=== PATIENT | male | born 1950 | race Caucasian/White ===

== ENCOUNTER 2019-05-07 07:40 | Outpatient (RCR) | payer MEDICARE, SELFPAY ==
[2019-02-12 14:19] LABS: INR 3.5; Prothrombin Time 36.1 Seconds (9.64-11.0)
[2019-03-05 07:48] LABS: INR 1.8; Prothrombin Time 18.7 Seconds (9.64-11.0)
[2019-05-07 08:07] LABS: INR 3.1; Prothrombin Time 30.8 Seconds (9.64-11.0)
== END 2019-05-13 23:59 | disposition home or self-care (01) ==
LOC: CHSLAB 07:40
PROVIDERS: PCP Internal Medicine; Visit Provider Internal Medicine Cardiovascular Disease
DX: I48.91 Unspecified atrial fibrillation (principal)
CPT/HCPCS: 36415; 85610

== ENCOUNTER 2019-05-23 08:17 | Outpatient (RCR) | payer MEDICARE, SELFPAY ==
[2019-05-14 10:32] LABS: INR 3.5; Prothrombin Time 34.3 Seconds (9.64-11.0)
[2019-05-23 08:40] LABS: INR 1.5; Prothrombin Time 15.6 Seconds (9.64-11.0)
== END 2019-08-12 23:59 | disposition home or self-care (01) ==
LOC: CHSLAB 08:17
PROVIDERS: PCP Internal Medicine; Visit Provider Internal Medicine Cardiovascular Disease
DX: I48.91 Unspecified atrial fibrillation (principal)
CPT/HCPCS: 36415; 85610

== ENCOUNTER 2019-05-30 08:00 | Outpatient (CLI) | payer MEDICARE, SELFPAY ==
[2019-05-30 08:11] LABS: Basophils Absolute Auto 0.05 K/mm3 (0.00-0.10); Basophils Percent Auto 0.6 % (0.0-1.0); Eosinophils Percent Auto 1.2 % (1.0-6.0); Hematocrit 41.2 % (37.0-46.0); Hemoglobin 11.8 g/dL (12.4-15.3); Immature Granulocyte Absolute 0.04 K/mm3 (0.00-0.00); Immature Granulocyte Percent A 0.5 % (0.0-0.0); Lymphocytes Absolute Auto 1.95 K/mm3 (1.10-4.50); Lymphocytes Percent Auto 23.4 % (18.0-42.0); Mean Corpuscular HGB Conc 28.6 g/dL (32.0-36.0); Mean Corpuscular Hemoglobin 20.1 pg (27.0-31.0); Mean Corpuscular Volume 70.1 fL (78.0-102.0); Mean Platelet Volume 9.7 fl (8.7-11.0); Monocytes Absolute Auto 0.96 K/mm3 (0.10-0.90); Monocytes Percent Auto 11.5 % (2.0-11.0); Neutrophils Absolute Auto 5.2 K/mm3 (1.7-7.2); Neutrophils Percent Auto 62.8 % (50.0-70.0); Platelet Count Result 213 K/mm3 (150-420); Red Blood Count 5.88 M/mm3 (4.70-6.10); Red Cell Distribution Width 21.6 % (11.6-14.4); White Blood Count 8.3 K/mm3 (4.8-10.8)
[2019-05-30 08:29] LABS: INR 1.5; Prothrombin Time 15.1 Seconds (9.64-11.0)
[2019-05-30 09:13] LABS: Ferritin 20 ng/mL (26-388); Iron 33 ug/dL (65-175); Percent Iron Saturation 9 % (12-57)
[2019-06-01 03:18] LABS: Transferrin 306 mg/dL (188-341)
== END 2019-05-30 08:01 | disposition home or self-care (01) ==
LOC: CHSLAB 08:03
PROVIDERS: PCP Internal Medicine; Visit Provider Internal Medicine Hematology & Oncology
DX: I48.91 Unspecified atrial fibrillation (principal); E83.119 Hemochromatosis, unspecified
CPT/HCPCS: 36415; 82728; 83540; 83550; 84466; 85025; 85610

== ENCOUNTER 2019-07-11 07:52 | Outpatient (CLI) | payer MEDICARE, SELFPAY ==
[2019-07-11 08:06] LABS: Basophils Absolute Auto 0.04 K/mm3 (0.00-0.10); Basophils Percent Auto 0.6 % (0.0-1.0); Eosinophils Percent Auto 1.6 % (1.0-6.0); Hematocrit 39.4 % (37.0-46.0); Hemoglobin 11.4 g/dL (12.4-15.3); Immature Granulocyte Absolute 0.03 K/mm3 (0.00-0.00); Immature Granulocyte Percent A 0.5 % (0.0-0.0); Lymphocytes Absolute Auto 2.09 K/mm3 (1.10-4.50); Lymphocytes Percent Auto 33.5 % (18.0-42.0); Mean Corpuscular HGB Conc 28.9 g/dL (32.0-36.0); Mean Corpuscular Hemoglobin 20.8 pg (27.0-31.0); Mean Corpuscular Volume 71.8 fL (78.0-102.0); Mean Platelet Volume 9.9 fl (8.7-11.0); Monocytes Absolute Auto 0.47 K/mm3 (0.10-0.90); Monocytes Percent Auto 7.5 % (2.0-11.0); Neutrophils Absolute Auto 3.5 K/mm3 (1.7-7.2); Neutrophils Percent Auto 56.3 % (50.0-70.0); Platelet Count Result 232 K/mm3 (150-420); Red Blood Count 5.49 M/mm3 (4.70-6.10); Red Cell Distribution Width 21.6 % (11.6-14.4); White Blood Count 6.2 K/mm3 (4.8-10.8)
[2019-07-11 08:18] LABS: Hemoglobin A1C 10.1 % (<5.7); INR 1.9; Prothrombin Time 19.6 Seconds (9.64-11.0)
[2019-07-11 09:01] LABS: Alanine Aminotransferase 24 U/L (16-63); Albumin Level 3.6 g/dL (3.4-5.0); Alkaline Phosphatase 62 U/L (46-116); Anion Gap 13.8 mmol/L (7-16); Aspartate Amino Transferase 22 U/L (15-37); Bilirubin,Total 0.3 mg/dL (0.00-1.00); Blood Urea Nitrogen 20 mg/dL (7-18); Calcium 9.2 mg/dL (8.5-10.1); Carbon Dioxide 29 mmol/L (21-32); Chloride 101 mmol/L (98-108); Estimated Glomerular Filt Rate > 60; Glucose 220 mg/dL (70-99); Osmolality Calculated 297 mOsm/kg (285-295); Potassium 4.8 mmol/L (3.5-5.1); Prostate Specific Antigen 0.2 ng/mL (< OR = 4.0); Sodium 139 mmol/L (136-145); Total Protein 6.9 g/dL (6.4-8.2)
[2019-07-17 10:15] LABS: Testosterone Free 70.4 pg/mL (35.0-155.0); Testosterone Total 414 ng/dL (250-1100)
== END 2019-07-11 07:53 | disposition home or self-care (01) ==
PROVIDERS: PCP Internal Medicine; Visit Provider Internal Medicine
DX: I48.20 Chronic atrial fibrillation, unspecified (principal); E11.65 Type 2 diabetes mellitus with hyperglycemia; E29.1 Testicular hypofunction; Z12.5 Encounter for screening for malignant neoplasm of prostate
CPT/HCPCS: 36415; 80053; 83036; 84153; 84402; 84403; 85025; 85610; G0103

== ENCOUNTER 2019-10-05 07:48 | Outpatient (CLI) | payer MEDICARE, SELFPAY ==
--- NOTE | ~2019-10-05 | US_ITS ---
EXAMINATION: US arterial ankle brachial ind EXAM DATE: 10/05/2019 09:57 INDICATION: Peripheral arterial disease. TECHNIQUE: Segmental pressures and plethysmographic and Doppler waveforms of the brachial and lower e xtremity arteries were obtained. There is no prior study for comparison. FINDINGS: Right and left brachial artery pressures of 120 mm Hg and 120 mm Hg, respectively, are concordant (no rmal difference <= 30 mmHg). RIGHT LEG: Dorsalis pedis: 1.23 (147 mmHg). Posterior tibial: 1.33 (160 mmHg). (Normal gradients <= 20-30 mmHg between adjacent levels on the same leg or the same levels on the two legs). Arterial waveforms are monophasic. LEFT LEG: Dorsalis pedis: 1.33 (160 mmHg). Posterior tibial: 1.90 (228 mmHg). (Normal gradients <= 20-30 mmHg between adjacent levels on the same leg or the same levels on the two legs). Arterial waveforms are biphasic. IMPRESSION: 1. Right ankle-brachial index 1.33, normal. 2. Left ankle-brachial index 1.90, normal. Reviewed, dictated and finalized at location A.
== END 2019-10-05 07:49 | disposition home or self-care (01) ==
PROVIDERS: PCP Internal Medicine; Visit Provider Internal Medicine
DX: I73.9 Peripheral vascular disease, unspecified (principal)
CPT/HCPCS: 93922

== ENCOUNTER 2019-11-29 06:59 | Outpatient (CLI) | payer MEDICARE, SELFPAY ==
[2019-11-29 07:15] LABS: Basophils Absolute Auto 0.04 K/mm3 (0.00-0.10); Basophils Percent Auto 0.5 % (0.0-1.0); Eosinophils Percent Auto 1.2 % (1.0-6.0); Hematocrit 43.6 % (37.0-46.0); Hemoglobin 12.9 g/dL (12.4-15.3); Immature Granulocyte Absolute 0.07 K/mm3 (0.00-0.00); Immature Granulocyte Percent A 0.8 % (0.0-0.0); Lymphocytes Absolute Auto 2.25 K/mm3 (1.10-4.50); Lymphocytes Percent Auto 26.8 % (18.0-42.0); Mean Corpuscular HGB Conc 29.6 g/dL (32.0-36.0); Mean Corpuscular Hemoglobin 22.2 pg (27.0-31.0); Mean Corpuscular Volume 74.9 fL (78.0-102.0); Mean Platelet Volume 9.4 fl (8.7-11.0); Monocytes Absolute Auto 0.87 K/mm3 (0.10-0.90); Monocytes Percent Auto 10.3 % (2.0-11.0); Neutrophils Absolute Auto 5.1 K/mm3 (1.7-7.2); Neutrophils Percent Auto 60.4 % (50.0-70.0); Platelet Count Result 241 K/mm3 (150-420); Red Blood Count 5.82 M/mm3 (4.70-6.10); Red Cell Distribution Width 20.7 % (11.6-14.4); White Blood Count 8.4 K/mm3 (4.8-10.8)
[2019-11-29 08:47] LABS: Ferritin 32 ng/mL (26-388); Iron 42 ug/dL (65-175); Percent Iron Saturation 11 % (12-57)
[2019-11-29 15:05] LABS: INR 2.3; Prothrombin Time 23.4 Seconds (9.64-11.0)
[2019-12-06 12:31] LABS: Transferrin 323 mg/dL (188-341)
== END 2019-11-29 07:00 | disposition home or self-care (01) ==
PROVIDERS: Internal Medicine Cardiovascular Disease; PCP Internal Medicine; Visit Provider Internal Medicine Hematology & Oncology
DX: I48.91 Unspecified atrial fibrillation (principal); E83.119 Hemochromatosis, unspecified
CPT/HCPCS: 36415; 82728; 83540; 83550; 84466; 85025; 85610

== ENCOUNTER 2019-12-27 08:24 | Outpatient (CLI) | payer MEDICARE, SELFPAY ==
[2019-12-27 09:24] LABS: Hemoglobin A1C 7.1 % (<5.7)
[2019-12-27 09:30] LABS: Anion Gap 9 mmol/L (8-16); Blood Urea Nitrogen 21 mg/dL (7-18); Calcium 8.8 mg/dL (8.5-10.1); Carbon Dioxide 27 mmol/L (21-32); Chloride 100 mmol/L (98-108); Estimated Glomerular Filt Rate 56; Glucose 189 mg/dL (70-99); Osmolality Calculated 290 mOsm/kg (285-295); Potassium 5.5 mmol/L (3.5-5.1); Sodium 136 mmol/L (136-145)
== END 2019-12-27 08:25 | disposition home or self-care (01) ==
LOC: CHSLAB 08:25
PROVIDERS: PCP Internal Medicine; Visit Provider Internal Medicine
DX: E11.65 Type 2 diabetes mellitus with hyperglycemia (principal)
CPT/HCPCS: 36415; 80048; 83036

== ENCOUNTER 2020-05-22 06:51 | Outpatient (CLI) | payer MEDICARE, SELFPAY ==
[2020-05-22 07:04] LABS: Basophils Absolute Auto 0.05 K/mm3 (0.00-0.10); Basophils Percent Auto 0.7 % (0.0-1.0); Eosinophils Percent Auto 1.3 % (1.0-6.0); Hematocrit 39.5 % (37.0-46.0); Hemoglobin 11.6 g/dL (12.4-15.3); Immature Granulocyte Absolute 0.05 K/mm3 (0.00-0.00); Immature Granulocyte Percent A 0.7 % (0.0-0.0); Lymphocytes Percent Auto 26.8 % (18.0-42.0); Mean Corpuscular HGB Conc 29.4 g/dL (32.0-36.0); Mean Corpuscular Hemoglobin 21.9 pg (27.0-31.0); Mean Corpuscular Volume 74.7 fL (78.0-102.0); Mean Platelet Volume 9.4 fl (8.7-11.0); Monocytes Absolute Auto 0.81 K/mm3 (0.10-0.90); Monocytes Percent Auto 10.9 % (2.0-11.0); Neutrophils Absolute Auto 4.5 K/mm3 (1.7-7.2); Neutrophils Percent Auto 59.6 % (50.0-70.0); Platelet Count Result 213 K/mm3 (150-420); Red Blood Count 5.29 M/mm3 (4.70-6.10); Red Cell Distribution Width 21.6 % (11.6-14.4); White Blood Count 7.5 K/mm3 (4.8-10.8)
[2020-05-22 07:17] LABS: Prothrombin Time 20.5 Seconds (9.50-12.10)
[2020-05-22 08:02] LABS: Ferritin 22 ng/mL (26-388); Iron 41 ug/dL (65-175); Percent Iron Saturation 12 % (12-57)
== END 2020-05-22 06:52 | disposition home or self-care (01) ==
LOC: CHSLAB 06:53
PROVIDERS: PCP Internal Medicine; Visit Provider Internal Medicine Hematology & Oncology
DX: E83.119 Hemochromatosis, unspecified (principal)
CPT/HCPCS: 36415; 82728; 83540; 83550; 85025; 85610

== ENCOUNTER 2020-07-25 13:13 | Emergency (ER) | payer MEDICARE, SELFPAY ==
--- NOTE | ~2020-07-25 | XR_ITS ---
EXAMINATION: XR abdomen/kub 1V EXAM DATE: 07/25/2020 14:32 INDICATION: Constipation x1wk, low blood sugar episode today. TECHNIQUE: Frontal projection(s) of the abdomen for interpretation. There is no prior study for amalia dukes. FINDINGS: There is large amount of colonic stool and gas. No small bowel dilation, nonobstructive b owel gas pattern. Splenic granulomas. There are no suspicious calcifications identified. There is n o organomegaly suspected. Moderate to severe lumbar spondylosis and mild levoscoliosis. IMPRESSION: Large amount of colonic stool and gas, constipation. Reviewed, dictated and finalized at location A.
[2020-07-25 13:15] VITALS: BP 115/60; PULSE 81; RESP 20; TEMP 36.2; O2SAT 99
[2020-07-25] MEDS: DEXTROSE 10% 250 ML 10 ML (13:25)
[2020-07-25 14:08] LABS: Basophils Absolute Auto 0.01 K/mm3 (0.00-0.10); Basophils Percent Auto 0.1 % (0.0-1.0); Eosinophils Absolute Auto 0.02 K/mm3 (0.02-0.50); Eosinophils Percent Auto 0.2 % (1.0-6.0); Hemoglobin 10.6 g/dL (12.4-15.3); Immature Granulocyte Absolute 0.07 K/mm3 (0.00-0.00); Immature Granulocyte Percent A 0.9 % (0.0-0.0); Lymphocytes Percent Auto 6.2 % (18.0-42.0); Mean Corpuscular HGB Conc 30.3 g/dL (32.0-36.0); Mean Corpuscular Hemoglobin 22.4 pg (27.0-31.0); Mean Platelet Volume 9.8 fl (8.7-11.0); Monocytes Absolute Auto 0.83 K/mm3 (0.10-0.90); Monocytes Percent Auto 10.3 % (2.0-11.0); Neutrophils Absolute Auto 6.6 K/mm3 (1.7-7.2); Neutrophils Percent Auto 82.3 % (50.0-70.0); Platelet Count Result 204 K/mm3 (150-420); Red Blood Count 4.73 M/mm3 (4.70-6.10); Red Cell Distribution Width 21.1 % (11.6-14.4); White Blood Count 8.1 K/mm3 (4.8-10.8)
--- NOTE | 2020-07-25 14:12 | PC.NURSE ---
MULTIPLE ATTEMPTS AT DIABETES EDUCATION FOR PATIENT AND FAMILY MEMBER
[2020-07-25 14:24] LABS: Alanine Aminotransferase 22 U/L (16-63); Albumin Level 3.1 g/dL (3.4-5.0); Alkaline Phosphatase 68 U/L (46-116); Anion Gap 8 mmol/L (8-16); Aspartate Amino Transferase 52 U/L (15-37); Bilirubin,Total 0.5 mg/dL (0.00-1.00); Blood Urea Nitrogen 18 mg/dL (7-18); Calcium 8.6 mg/dL (8.5-10.1); Carbon Dioxide 28 mmol/L (21-32); Chloride 95 mmol/L (98-108); Estimated Glomerular Filt Rate > 60; Glucose 82 mg/dL (70-99); Osmolality Calculated 272 mOsm/kg (285-295); Potassium 3.8 mmol/L (3.5-5.1); Sodium 131 mmol/L (136-145); Total Protein 6.9 g/dL (6.4-8.2)
[2020-07-25 14:45] LABS: Glucose Point of Care 71 mg/dl (65-105)
[2020-07-25 14:45] LABS: Glucose Point of Care 113 mg/dl (65-105)
[2020-07-25 14:45] LABS: Glucose Point of Care 102 mg/dl (65-105)
[2020-07-25 14:45] LABS: Glucose Point of Care 80 mg/dl (65-105)
--- NOTE | 2020-07-25 15:25 | PC.NURSE ---
ERP ORDERS ROLANDA NELSON ENEMA - SON [phone] WILL RETURN WHEN ENEMA COMPLETE
[2020-07-25 16:10] LABS: Glucose Point of Care 91 mg/dl (65-105)
[2020-07-25 16:52] LABS: Glucose Point of Care 130 mg/dl (65-105)
--- NOTE | 2020-07-25 16:52 | ED.GENADULT ---
HPI - General Adult General Chief complaint: Altered Mental Status Stated complaint: ambulance History of Present Illness HPI narrative: pt states that he took his humalog today and didnt eat. His son noticed him slumpped in his chair and called 911. pt states that he has been really constipated and just didnt feel like eating today. He hasnt been sick in any other way. He has not had fever, no rashes, no cough, no n/v. Onset (ago): hour(s) Relieving factors: none (feels better after getting sugar intake) Exacerbating factors: none Associated symptoms: denies other symptoms and loss of appetite Related Data Home Medications Medication Instructions Recorded Confirmed acetaminophen 300 mg-codeine 60 mg 1 tablet PO Q6H PRN 01/31/19 07/25/20 tablet glyburide 5 mg-metformin 500 mg 1 tablet PO BID tablet 01/31/19 07/25/20 tablet lisinopril 20 mg tablet 20 mg PO DAILY 01/31/19 07/25/20 oxybutynin chloride 5 mg tablet 5 mg PO BID 01/31/19 07/25/20 diazepam 10 mg tablet 10 mg PO TID PRN 11/19/19 07/25/20 albuterol [Ventolin] 90 mcg INHALATION QID PRN 07/25/20 07/25/20 gabapentin 300 mg PO TID 07/25/20 07/25/20 insulin NPH and regular human 60 unit SUBCUT BID 07/25/20 07/25/20 [Humulin 70/30 U-100 Insulin] rosuvastatin 10 mg PO DAILY 07/25/20 07/25/20 warfarin See Rx Instructions .ROUTE .COMPLEX 07/25/20 07/25/20 warfarin See Rx Instructions .ROUTE .COMPLEX 07/25/20 07/25/20 Allergies Allergy/AdvReac Type Severity Reaction Status Date / Time No Known Allergies Allergy Mild Verified 07/18/20 13:57 Review of Systems Constitutional: Constitutional: Reports no additional constitutional complaints Eyes: Eyes: Reports no additional eye complaints ENT: Reports system reviewed and no additional complaints, except as documented Cardiovascular: Cardiovascular: Reports no additional cardiovascular complaints Respiratory: Respiratory: Reports no additional respiratory complaints Gastrointestinal: Gastrointestinal: Reports no additional gastrointestinal complaints, Reports bloating and Reports constipation Genitourinary: Genitourinary: Reports no additional male genitourinary complaints Musculoskeletal: Musculoskeletal: Reports no additional musculoskeletal complaints Integumentary/Breasts: Skin/Breast: Reports system reviewed and no additional complaints, except as docu Neurologic: Reports system reviewed and no additional complaints, except as documented Psychiatric: Psychiatric: Reports no additional psychiatric complaints [facility] Past Medical History Medical History Arthritis Diabetes mellitus Erectile dysfunction Peripheral artery disease Surgical History Surgical History H/O right heart catheterization Hx of CABG Family History Family History Father Acute myocardial infarction Son Family history of obesity Social History Social History Smoking status: Never smoker Smokeless tobacco user: chewing tobacco Gender identity (if verbalized by the patient): Male Spiritual care concerns: No Exam Const: General: no acute distress and alert Orientation/consciousness: patient oriented x3 HENMT: Head: normal to inspection Eyes: Pupils: Equal, round and reactive pupils present Neck: Neck: normal visual inspection Chest: Chest palpation & inspection: normal inspection of the chest Resp: Effort & Inspection: normal respiratory effort Auscultation: clear to auscultation bilaterally Cardio: Rate: regular rate Rhythm: regular rhythm GI: GI Palp: Yes Soft to palpation, No Tenderness to palpation present (GI), No Guarding due to palpation present (GI) and No Rigid due to palpation : Male General Exam: Yes normal external exam Back/Spine/Pelvis: Back: no CVA te
[2020-07-25] MEDS: BISACODYL 5 MG TABLET EC PO (17:08)
[2020-07-25 17:21] VITALS: BP 122/58
== END 2020-07-25 17:23 | disposition home or self-care (01) ==
PROVIDERS: Emergency Provider Emergency Medicine; PCP Internal Medicine
DX: E11.649 Type 2 diabetes mellitus with hypoglycemia without coma (principal); Z79.4 Long term (current) use of insulin; K59.01 Slow transit constipation
CPT/HCPCS: 36415; 74018; 80053; 82948; 85025; 96374; 99283; 99284; A9270

== ENCOUNTER → 2020-07-26 01:55 | Outpatient (CLI) | payer MEDICARE, SELFPAY ==
[2020-07-26 19:56] LABS: SARS-CoV-2 RNA PCR Negative
== END ==
PROVIDERS: PCP Internal Medicine; Visit Provider Internal Medicine Gastroenterology
DX: Z01.812 Encounter for preprocedural laboratory examination (principal); Z20.822 Contact with and (suspected) exposure to COVID-19
CPT/HCPCS: C9803; U0003; U0005

== ENCOUNTER 2020-07-30 02:30 | Day surgery (SDC) | payer MEDICARE, SELFPAY ==
[2020-07-18 14:08] VITALS: BMI 39.5
[2020-07-30 09:54] LABS: Glucose Point of Care 150 mg/dl (65-105)
--- NOTE | 2020-07-30 09:54 | PM.HPGS ---
History of Present Illness History of Present Illness Consent: Risks, benefits, and alternatives have been discussed and questions answered. Patient agrees to proceed with procedure. Chief complaint: hemochromatosis, anemia, iron def, Narrative: Diego Marquez Sr. is a 70 year old male with hemochromatosis who recently was getting phlebotomies and diagnosed with JEAN, never had scopes. Also using coumadin (on hold for 5 days) Review of Systems Constitutional: Constitutional: Denies headache(s) and Denies weakness Eyes: Eyes: Denies blurry vision ENT: Reports Normal hearing present, Denies headache(s) and Denies neck pain Cardiovascular: Cardiovascular: Denies chest pain and Denies dyspnea Respiratory: Respiratory: Denies dyspnea Gastrointestinal: Gastrointestinal: Reports no additional gastrointestinal complaints Genitourinary: Genitourinary: Denies dysuria Musculoskeletal: Musculoskeletal: Denies neck pain Integumentary/Breasts: Skin/Breast: Denies dry skin Neurologic: Reports Normal hearing present, Denies headache(s) and Denies weakness Psychiatric: Psychiatric: Denies anxiety Endocrine: Endocrine: Denies change in body appearance Hematologic/Lymphatic: Hematologic/Lymphatic: Denies easy bleeding Allergic/Immunologic: Allergic/Immunologic: Denies urticaria PMFSH Past Medical History Medical History (Updated 07/30/20 @ 09:55 by Nghia Mitchell MD) Arthritis Diabetes mellitus Erectile dysfunction Hemochromatosis Iron deficiency anemia Peripheral artery disease Surgical History Surgical History H/O right heart catheterization Hx of CABG Family History Family History Father Acute myocardial infarction Son Family history of obesity Social History Social History Smoking status: Never smoker Smokeless tobacco user: chewing tobacco Living arrangements: alone Gender identity (if verbalized by the patient): Male Spiritual care concerns: No Meds Home Medications and Allergies Home Medications Medication Instructions Recorded Confirmed Type acetaminophen 300 mg-codeine 60 mg 1 tablet PO Q6H PRN 01/31/19 07/25/20 History tablet glyburide 5 mg-metformin 500 mg 1 tablet PO BID tablet 01/31/19 07/25/20 History tablet lisinopril 20 mg tablet 20 mg PO DAILY 01/31/19 07/25/20 History oxybutynin chloride 5 mg tablet 5 mg PO BID 01/31/19 07/25/20 History diazepam 10 mg tablet 10 mg PO TID PRN 11/19/19 07/25/20 History albuterol [Ventolin] 90 mcg INHALATION QID PRN 07/25/20 07/25/20 History gabapentin 300 mg PO TID 07/25/20 07/25/20 History insulin NPH and regular human 60 unit SUBCUT BID 07/25/20 07/25/20 History [Humulin 70/30 U-100 Insulin] rosuvastatin 10 mg PO DAILY 07/25/20 07/25/20 History warfarin See Rx Instructions .ROUTE .COMPLEX 07/25/20 07/25/20 History warfarin See Rx Instructions .ROUTE .COMPLEX 07/25/20 07/25/20 History Allergies Allergy/AdvReac Type Severity Reaction Status Date / Time No Known Allergies Allergy Mild Verified 07/30/20 09:54 Exam Const: General: comfortable and no acute distress HENMT: General nose exam: Normal nares present Eyes: General: appearance normal, both eyes and all related structures Neck: Neck: no JVD Resp: Auscultation: clear to auscultation bilaterally Cardio: Rate: regular rate Rhythm: regular rhythm GI: Inspection: non-distended GI Palp: Yes Soft to palpation Skin: General skin exam: normal color Neuro: General: gait normal Speech: normal speech Extrem: General: normal to inspection Psych: Mental Status: mental status grossly normal Assessment and Plan Assessment and plan (1) Hemochromatosis: Code(s): E83.119 - Hemochromatosis, unspecified Status: Acute (2) Iron deficiency anemia: Code(s):
[2020-07-30 09:57] VITALS: BP 148/70; PULSE 80; RESP 20; TEMP 36.3; O2SAT 100; BMI 39.2
--- NOTE | 2020-07-30 09:57 | WPDANESEPPF ---
Anes - Initial Pre Proc Eval Procedure: Operation Date: 07/30/20 11:00 Proposed Procedures p Esophagogastroduodenoscopy & Colonoscopy - Nghia Mitchell MD Date/Time: 07/30/20 09:57 Surgeon: Nghia Mitchell MD Pre Op Diagnosis: hemochromatosis, anemia, iron def, Patient Data Age: 70 Gender: M Height: 5 ft 8 in Weight: 118 kg Allergies Allergy/AdvReac Type Severity Reaction Status Date / Time No Known Allergies Allergy Mild Verified 07/30/20 09:54 Home Medications Medication Instructions Recorded Confirmed Type acetaminophen 300 mg-codeine 60 mg 1 tablet PO Q6H PRN 01/31/19 07/30/20 History tablet glyburide 5 mg-metformin 500 mg 1 tablet PO BID tablet 01/31/19 07/30/20 History tablet lisinopril 20 mg tablet 20 mg PO DAILY 01/31/19 07/30/20 History oxybutynin chloride 5 mg tablet 5 mg PO BID 01/31/19 07/30/20 History diazepam 10 mg tablet 10 mg PO TID PRN 11/19/19 07/30/20 History albuterol [Ventolin] 90 mcg INHALATION QID PRN 07/25/20 07/30/20 History gabapentin 300 mg PO TID 07/25/20 07/30/20 History insulin NPH and regular human 60 unit SUBCUT BID 07/25/20 07/30/20 History [Humulin 70/30 U-100 Insulin] rosuvastatin 10 mg PO DAILY 07/25/20 07/30/20 History warfarin See Rx Instructions .ROUTE .COMPLEX 07/25/20 07/30/20 History warfarin See Rx Instructions .ROUTE .COMPLEX 07/25/20 07/30/20 History Laboratory Tests 07/30/20 09:52 POC Capillary Glucose 150 mg/dl H mg/dl (65-105) Patient hx anesthesia problems: none Family hx anesthesia problems: none PMFSH Past Medical History Medical History (Updated 07/30/20 @ 09:55 by Nghia Mitchell MD) Arthritis Diabetes mellitus Erectile dysfunction Hemochromatosis Iron deficiency anemia Peripheral artery disease Surgical History Surgical History H/O right heart catheterization Hx of CABG Family History Family History Father Acute myocardial infarction Son Family history of obesity Social History Social History Smoking status: Never smoker Smokeless tobacco user: chewing tobacco Living arrangements: alone Gender identity (if verbalized by the patient): Male Spiritual care concerns: No Anes - Eval Final PreProcedure Day of Procedure 07/30/20 09:57 Patient weight: morbidly obese Heart: regular rate and rhythm Lungs: clear to auscultation Airway: Mallampati scale class III Neurological: alert and oriented Last oral intake: >/= 8 hours ASA classification: IV Emergent: no Anesthetic plan: proceed Anesthesia type and monitoring: general GIVS and standard monitoring Informed Consent: The patient's anesthetic plan and its attendant risks and benefits were discussed with the patient/family/POA. Questions were solicited and answers provided to the satisfaction of the patient/family/POA.
[2020-07-30 10:32] VITALS: BP 117/70; PULSE 72; RESP 17; O2SAT 100
[2020-07-30 10:42] VITALS: BP 130/72; PULSE 63; RESP 17; O2SAT 100
[2020-07-30 10:42] LABS: Glucose Point of Care 140 mg/dl (65-105)
[2020-07-30 10:52] VITALS: BP 120/70; PULSE 65; RESP 25; O2SAT 100
== END 2020-07-30 11:07 | disposition home or self-care (01) ==
PROVIDERS: PCP Internal Medicine; Visit Provider Internal Medicine Gastroenterology
PROC: 0DJ08ZZ Inspection of Upper Intestinal Tract, Via Natural or Artificial Opening Endoscopic (ICD-10-PCS; CPT 43235; principal; 2020-07-30 11:00)
DX: D50.9 Iron deficiency anemia, unspecified (principal); K29.00 Acute gastritis without bleeding; K29.50 Unspecified chronic gastritis without bleeding; I48.20 Chronic atrial fibrillation, unspecified; I73.9 Peripheral vascular disease, unspecified; E83.119 Hemochromatosis, unspecified; E11.9 Type 2 diabetes mellitus without complications; M19.90 Unspecified osteoarthritis, unspecified site; Z95.1 Presence of aortocoronary bypass graft; Z79.01 Long term (current) use of anticoagulants
CPT/HCPCS: 43239; 45378; 82948; 88305; 88342; C9803; J2001; J2704; U0003; U0005

== ENCOUNTER 2020-08-26 09:56 | Outpatient (CLI) | payer MEDICARE, SELFPAY ==
--- NOTE | ~2020-08-26 | XR_ITS ---
EXAMINATION: XR abdomen/kub 1V INDICATION: Constipation TECHNIQUE: Supine views of the abdomen were obtained on four radiographs. COMPARISON: 07/25/2020 FINDINGS: There is a large volume of colonic stool with interval increase in stool volume in the asce nding colon. No dilated loops of bowel are evident. There is severe lumbar spondylosis. Calcified ath erosclerosis is noted. There is moderate osteoarthritis of the hips. The visualized lung bases are cl ear. IMPRESSION: 1. Worsened constipation. Reviewed, dictated and finalized at location A. IMPRESSION: 1. Worsened constipation.
[2020-08-26 10:48] LABS: Alanine Aminotransferase 26 U/L (16-63); Albumin Level 3.9 g/dL (3.4-5.0); Alkaline Phosphatase 84 U/L (46-116); Anion Gap 13 mmol/L (8-16); Aspartate Amino Transferase 23 U/L (15-37); Bilirubin,Total 0.4 mg/dL (0.00-1.00); Blood Urea Nitrogen 29 mg/dL (7-18); Calcium 9.4 mg/dL (8.5-10.1); Carbon Dioxide 26 mmol/L (21-32); Chloride 97 mmol/L (98-108); Estimated Glomerular Filt Rate 58; Glucose 165 mg/dL (70-99); Osmolality Calculated 291 mOsm/kg (285-295); Potassium 4.8 mmol/L (3.5-5.1); Sodium 136 mmol/L (136-145); Total Protein 7.6 g/dL (6.4-8.2)
[2020-08-26 10:49] LABS: Magnesium 2.2 mg/dL (1.8-2.4); Thyroid Stimulating Hormone 1.72 uIU/mL (0.36-3.74)
[2020-08-26 10:50] LABS: Free T4 Free Thyroxine 1.02 ng/dL (0.76-1.46)
== END 2020-08-26 09:57 | disposition home or self-care (01) ==
PROVIDERS: PCP Internal Medicine; Visit Provider Internal Medicine
DX: K59.00 Constipation, unspecified (principal)
CPT/HCPCS: 36415; 74018; 80053; 83735; 84439; 84443

== ENCOUNTER 2020-12-08 07:06 | Outpatient (CLI) | payer MEDICARE, SELFPAY ==
[2020-12-08 07:39] LABS: Prothrombin Time 30.2 Seconds (9.50-12.10)
[2020-12-08 08:19] LABS: Alanine Aminotransferase 27 U/L (16-63); Albumin Level 3.9 g/dL (3.4-5.0); Alkaline Phosphatase 79 U/L (46-116); Anion Gap 10 mmol/L (8-16); Aspartate Amino Transferase 21 U/L (15-37); Bilirubin,Total 0.4 mg/dL (0.00-1.00); Blood Urea Nitrogen 30 mg/dL (7-18); Calcium 8.7 mg/dL (8.5-10.1); Carbon Dioxide 32 mmol/L (21-32); Chloride 96 mmol/L (98-108); Cholesterol 110 mg/dL (0-200); Estimated Glomerular Filt Rate > 60; Glucose 212 mg/dL (70-99); HDL Direct 32 mg/dL (40-60); LDL Cholesterol Calculated 45 mg/dL (<130); Osmolality Calculated 298 mOsm/kg (285-295); Sodium 138 mmol/L (136-145); Total Protein 7.3 g/dL (6.4-8.2); Triglycerides 165 mg/dL (0-150)
== END 2020-12-08 07:07 | disposition home or self-care (01) ==
LOC: CHSLAB 12-09 10:32
PROVIDERS: PCP Internal Medicine; Visit Provider Internal Medicine Cardiovascular Disease
DX: E78.5 Hyperlipidemia, unspecified (principal); I48.91 Unspecified atrial fibrillation
CPT/HCPCS: 36415; 80053; 80061; 85610

== ENCOUNTER 2020-12-23 07:04 | Outpatient (CLI) | payer MEDICARE, SELFPAY ==
--- NOTE | 2020-12-23 07:50 | ECHO_ITS ---
Patient Info Name: Diego Marquez Age: 70 years : 1950 Gender: Male Ht: 68 in Wt: 252 lbs BSA: 2.39 m2 HR: 68 bpm BP: 155 / 78 mmHg Heart Rhythm: Sinus Rhythm Technical Quality: Fair Exam Date: 12/23/2020 7:55 AM Exam Location: [facility] Patient Status: Outpatient Admit Date: 12/23/2020 Staff Ordering Physician: Celso Haro DO Loan Interviewer: Ciarra Fulton RDCS Attending Provider: Celso Haro DO Referring Physician: Tahir DOTSON; Exam Type: CA echo doppler color flow Study Info Indications R60.0 - Localized edema Complete two-dimensional, color flow and Doppler transthoracic echocardiogram is performed. Summary 1. Complete two-dimensional, color flow and Doppler transthoracic echocardiogram is performed. 2. The left ventricular diastolic function is abnormal. 3. Left ventricular chamber dimension is normal. 4. Left ventricular systolic function is normal, estimated at 55-60%. 5. There is mildly increased left ventricular wall thickness. 6. E/e' 14 is mildly elevated. 7. Right ventricular systolic function is mildly reduced and with abnormal TAPSE 1.4 cm. 8. Right ventricular chamber dimension is mildly enlarged. 9. Linear artifact in right ventricle suggestive of catheter(s), pacemaker lead(s), or ICD lead(s). 10. Left atrial chamber dimension is moderately enlarged. 11. Right atrial chamber dimension is moderately enlarged. 12. Linear artifact in the right atrium suggestive of catheter(s), pacemaker lead(s), or ICD lead(s). 13. There is mild aortic valve sclerosis. 14. The mitral valve has mildly calcified annulus. 15. There is mild mitral valve regurgitation. 16. There is mild tricuspid valve regurgitation. 17. Mild pulmonary hypertension, estimated pulmonary arterial systolic pressure is 45 mmHg. 18. Dilated inferior vena cava with >50% collapse upon inspiration consistent with elevated right atrial pressure, 10 mmHg. Left Ventricle E/e' 14 is mildly elevated. The left ventricular diastolic function is abnormal. Left ventricular chamber dimension is normal. Left ventricular systolic function is normal, estimated at 55-60%. There is mildly increased left ventricular wall thickness. Right Ventricle Right ventricular systolic function is mildly reduced and with abnormal TAPSE 1.4 cm. Linear artifact in right ventricle suggestive of catheter(s), pacemaker lead(s), or ICD lead(s). Right ventricular chamber dimension is mildly enlarged. Left Atria Left atrial chamber dimension is moderately enlarged. Right Atria Linear artifact in the right atrium suggestive of catheter(s), pacemaker lead(s), or ICD lead(s). Right atrial chamber dimension is moderately enlarged. Aortic Valve The aortic valve is trileaflet. There is mild aortic valve sclerosis. There is no aortic valve stenosis. There is no aortic valve regurgitation. Pulmonic Valve There is no pulmonic regurgitation. Mitral Valve The mitral valve has mildly calcified annulus. There is no mitral valve stenosis. There is mild mitral valve regurgitation. Tricuspid Valve There is mild tricuspid valve regurgitation. Mild pulmonary hypertension, estimated pulmonary arterial systolic pressure is 45 mmHg. Pericardium/Pleural There is no pericardial effusion. Inferior Vena Cava Dilated inferior vena cava with >50% collapse upon inspiration consistent with elevated right atrial pressure, 10 mmHg. Aorta The aortic root size at the sinus of Valsalva is normal.
== END 2020-12-23 07:05 | disposition home or self-care (01) ==
LOC: ANHCARD 07:06
PROVIDERS: PCP Internal Medicine; Visit Provider Internal Medicine Cardiovascular Disease
DX: R60.0 Localized edema (principal); I08.3 Combined rheumatic disorders of mitral, aortic and tricuspid valves
CPT/HCPCS: 93306

== ENCOUNTER 2021-01-02 12:14 | Outpatient (CLI) | payer MEDICARE, SELFPAY ==
[2021-01-02 12:34] LABS: Basophils Absolute Auto 0.05 K/mm3 (0.00-0.10); Basophils Percent Auto 0.6 % (0.0-1.0); Eosinophils Absolute Auto 0.04 K/mm3 (0.02-0.50); Eosinophils Percent Auto 0.4 % (1.0-6.0); Hematocrit 38.2 % (37.0-46.0); Hemoglobin 11.8 g/dL (12.4-15.3); Immature Granulocyte Percent A 1.1 % (0.0-0.0); Lymphocytes Absolute Auto 2.08 K/mm3 (1.10-4.50); Mean Corpuscular HGB Conc 30.9 g/dL (32.0-36.0); Mean Corpuscular Hemoglobin 23.9 pg (27.0-31.0); Mean Corpuscular Volume 77.5 fL (78.0-102.0); Mean Platelet Volume 9.9 fl (8.7-11.0); Monocytes Absolute Auto 1.06 K/mm3 (0.10-0.90); Monocytes Percent Auto 11.7 % (2.0-11.0); Neutrophils Absolute Auto 5.7 K/mm3 (1.7-7.2); Neutrophils Percent Auto 63.2 % (50.0-70.0); Platelet Count Result 224 K/mm3 (150-420); Red Blood Count 4.93 M/mm3 (4.70-6.10)
[2021-01-02 13:36] LABS: Ferritin 28 ng/mL (26-388); Iron 39 ug/dL (65-175); Percent Iron Saturation 12 % (12-57)
== END 2021-01-02 12:15 | disposition home or self-care (01) ==
LOC: CHSLAB 12:15
PROVIDERS: PCP Internal Medicine; Visit Provider Internal Medicine Hematology & Oncology
DX: E83.119 Hemochromatosis, unspecified (principal)
CPT/HCPCS: 36415; 82728; 83540; 83550; 85025

== ENCOUNTER 2021-08-03 16:26 | Emergency (ER) | payer MEDICARE, SELFPAY ==
[2021-08-03] VITALS (37 sets, daily range): BP systolic 93–169; BP diastolic 49–101; PULSE 88–131; RESP 18–31; TEMP 37.7–37.8; O2SAT 92–97
--- NOTE | ~2021-08-03 | XR_ITS ---
XR chest 1V portable 08/03/2021 16:53 Indication: Weakness Procedure: AP portable chest Comparison: Comparison to multiple prior studies sequentially, with oldest reviewed study dated 03/2015. Findings: Status post median sternotomy for CABG. Pacemaker lead position unchanged. Cardiomegaly wit h mild interstitial edema. No pleural effusion or pneumothorax. Impression: 1: Cardiomegaly with mild interstitial edema. Reviewed, dictated and finalized at location A. Impression: 1: Cardiomegaly with mild interstitial edema.
--- NOTE | 2021-08-03 16:29 | ED.GENADULT ---
HPI - General Adult General Chief complaint: Weakness Stated complaint: amb, weakness History of Present Illness HPI narrative: Diego is a 71M with a PMH of Afib s/p pacemaker, HTN, HLD, CAD s/p bypass, DMI, and hemochromatosis that presented to the ED with weakness via EMS. He reportedly had a fall last night where he fell into his bed and slid down to the floor. Since then he has been getting progressively more weak. He denies CP, SOB, N/V, diarrhea and syncope. Related Data Home Medications Medication Instructions Recorded Confirmed acetaminophen 300 mg-codeine 60 mg 1 tablet PO Q6H PRN Cough 01/31/19 08/03/21 tablet (Tylenol-Codeine #4) glyburide 5 mg-metformin 500 mg 1 tablet PO BID 01/31/19 08/03/21 tablet lisinopril 20 mg tablet 20 mg PO DAILY 01/31/19 08/03/21 oxybutynin chloride 5 mg tablet 5 mg PO BID 01/31/19 08/03/21 diazepam 10 mg tablet 10 mg PO TID PRN Anxiety 11/19/19 08/03/21 gabapentin 300 mg capsule 300 mg PO TID 07/25/20 08/03/21 insulin human U-100 NPH-regulr 60 unit subcut BID 07/25/20 08/03/21 70-30 mix 100 unit/mL subcutaneous susp (Humulin 70/30 U-100 Insulin) rosuvastatin 10 mg tablet 10 mg PO DAILY 07/25/20 08/03/21 warfarin 2 mg tablet 4 mg PO 5XW 07/25/20 08/03/21 warfarin 2 mg tablet 5 mg PO 2XW 07/25/20 08/03/21 furosemide 40 mg tablet 40 mg PO DAILY 08/03/21 08/03/21 hydrochlorothiazide 25 mg tablet 25 mg PO DAILY 08/03/21 08/03/21 Allergies Allergy/AdvReac Type Severity Reaction Status Date / Time No Known Allergies Allergy Mild Verified 06/08/21 15:11 Review of Systems Constitutional: Constitutional: Reports no additional constitutional complaints, Denies chills, Denies fatigue and Reports weakness Eyes: Eyes: Reports no additional eye complaints ENT: Reports system reviewed and no additional complaints, except as documented Cardiovascular: Cardiovascular: Reports no additional cardiovascular complaints Respiratory: Respiratory: Reports no additional respiratory complaints Gastrointestinal: Gastrointestinal: Reports no additional gastrointestinal complaints Genitourinary: Genitourinary: Reports no additional male genitourinary complaints Musculoskeletal: Musculoskeletal: Reports as per HPI Integumentary/Breasts: Skin/Breast: Reports system reviewed and no additional complaints, except as docu Neurologic: Reports as per HPI Psychiatric: Psychiatric: Reports no additional psychiatric complaints Endocrine: Endocrine: Reports no additional endocrine complaints Hematologic/Lymphatic: Hematologic/Lymphatic: Reports no additional hematologic/lymphatic complaints Allergic/Immunologic: Allergic/Immunologic: Reports no additional allergic/immunologic complaints [facility] Past Medical History Medical History (Updated 08/05/21 @ 15:14 by Danny Drake MD) Arthritis Atrial fibrillation (04/20/17) On chronic anticoagulation with warfarin CAD in [place] artery CAD of autologous artery bypass graft without angina Chronic venous stasis dermatitis of both lower extremities Diabetes mellitus Diabetic peripheral neuropathy Erectile dysfunction Essential hypertension Hemochromatosis However patient's iron studies demonstrate a low iron level (12/2020), normal transferrin (in 2019) and normal hemoglobin and now actually has what appears bandemia chronic disease Mixed hyperlipidemia (04/20/17) Obesity (BMI 35.0-39.9 without comorbidity) SAKSHI on CPAP (03/2019) CPAP of 7 Peripheral artery disease Sick sinus syndrome (04/18/17) Urge urinary incontinence Surgical History Surgical History (Updated 08/04/21 @ 02:00 by Araceli Jacobs DO) H/O right heart catheterization Hx of CABG (~2004) Four-vessel CABG Pacemaker (04/2015) Single-chamber MRI compatible pacemaker Family History Family History Father Acute myocardial infarction Son Family history of obesity Social History Social History (Updated 08/04/21 @
--- NOTE | 2021-08-03 16:34 | ECG_ITS ---
Measurements Intervals [place] Rate: 91 P: [place]: 0 QRS: -71 QRSD: 185 T: 87 QT: 417 QTc: 514 Interpretive Statements ELECTRONIC VENTRICULAR PACEMAKER WITH INHIBITION UNDERLYING PROBABLY ATRIAL FIBRILLATION BASELINE ARTIFACT- I, II, II, AVR, V1-V6 NO FURTHER INTERPRETATION IS POSSIBLE ABNORMAL ECG Electronically Signed On 08-03-2021 20:24:39 CDT by Celso Haro D.O.
[2021-08-03 17:16] LABS: Basophils Absolute Auto 0.02 K/mm3 (0.00-0.10); Basophils Percent Auto 0.1 % (0.0-1.0); Eosinophils Absolute Auto 0.01 K/mm3 (0.02-0.50); Eosinophils Percent Auto 0.1 % (1.0-6.0); Hematocrit 42.6 % (37.0-46.0); Hemoglobin 13.5 g/dL (12.4-15.3); Immature Granulocyte Absolute 0.16 K/mm3 (0.00-0.00); Immature Granulocyte Percent A 0.9 % (0.0-0.0); Lymphocytes Absolute Auto 0.62 K/mm3 (1.10-4.50); Lymphocytes Percent Auto 3.6 % (18.0-42.0); Mean Corpuscular HGB Conc 31.7 g/dL (32.0-36.0); Mean Corpuscular Hemoglobin 24.1 pg (27.0-31.0); Mean Corpuscular Volume 75.9 fL (78.0-102.0); Mean Platelet Volume 9.5 fl (8.7-11.0); Monocytes Absolute Auto 1.19 K/mm3 (0.10-0.90); Neutrophils Absolute Auto 15.1 K/mm3 (1.7-7.2); Neutrophils Percent Auto 88.3 % (50.0-70.0); Platelet Count Result 277 K/mm3 (150-420); Red Blood Count 5.61 M/mm3 (4.70-6.10); Red Cell Distribution Width 19.2 % (11.6-14.4); White Blood Count 17.1 K/mm3 (4.8-10.8)
[2021-08-03 17:28] LABS: INR 2.9; Prothrombin Time 29.2 Seconds (9.50-12.10)
[2021-08-03 17:40] LABS: Lactic Acid Reflex 2.8 mmol/L (0.4-2.0)
[2021-08-03 17:49] LABS: Alanine Aminotransferase 44 U/L (16-63); Albumin Level 3.4 g/dL (3.4-5.0); Alkaline Phosphatase 81 U/L (46-116); Ammonia 28 umol/L (11-32); Anion Gap 11 mmol/L (8-16); Aspartate Amino Transferase 187 U/L (15-37); Bilirubin,Total 0.9 mg/dL (0.00-1.00); Blood Urea Nitrogen 34 mg/dL (7-18); Calcium 9.3 mg/dL (8.5-10.1); Carbon Dioxide 26 mmol/L (21-32); Chloride 82 mmol/L (98-108); Estimated CRCL calculation 39 ml/min; Estimated Glomerular Filt Rate 34; Glucose 116 mg/dL (70-99); Magnesium 1.8 mg/dL (1.8-2.4); NT Pro B Type Natriuretic Pept 3255 pg/mL (0-125); Osmolality Calculated 256 mOsm/kg (285-295); Phosphorus 2.9 mg/dL (2.6-4.7); Potassium 4.2 mmol/L (3.5-5.1); Total Protein 7.9 g/dL (6.4-8.2)
[2021-08-03 17:52] LABS: Creatine Kinase > 1000 U/L (39-308); Sodium 119 mmol/L (136-145)
[2021-08-03 17:53] LABS: Ethanol < 3 mg/dL (0-6); Troponin I 143.8 ng/L (0.00-60.4)
[2021-08-03 17:54] LABS: CRP > 25.0 mg/dL (0.0-0.9)
[2021-08-03 17:55] LABS: Thyroid Stimulating Hormone 1.35 uIU/mL (0.36-3.74)
[2021-08-03 18:25] LABS: Add Urine Microscopic? YES; Appearance Urine Clear (Clear); Bilirubin Urine Negative (Negative); Blood Urine 3+ (Negative); Color Urine Yellow (Yellow); Glucose Urine UA Negative (Negative); Ketones Urine Negative (Negative); Leukocyte Esterase Ur Negative (Negative); Nitrate Urine Negative (Negative); Protein Urine 1+ (Negative)
[2021-08-03 18:31] LABS: Bacteria Urine Trace /hpf; Squamous Epithelial Cell Urine None seen /hpf (Few); WBC Urine 0-3 /hpf (0-3)
[2021-08-03 18:32] LABS: Amphetamine Screen Urine Negative (Negative); Barbiturate Screen Urine Negative (Negative); Benzodiazepines Screen Urine Positive (Negative); Cannabinoid Screen Urine Negative (Negative); Cocaine Screen Urine Negative (Negative); Methadone Screen Urine Negative (Negative); Opiate Screen Urine Positive (Negative); Phencyclidine Screen Urine Negative (Negative)
[2021-08-03 19:10] LABS: Reflex Lactic Acid Yes or No Add Lactic
[2021-08-03 19:32] LABS: Lactic Acid 2.1 mmol/L (0.4-2.0)
[2021-08-03 21:20] LABS: SARS-CoV-2 RNA PCR Negative (Negative)
== END 2021-08-03 22:12 | disposition short-term general hospital (02) ==
LOC: CHSED 16:28
PROVIDERS: Emergency Provider Family Medicine; PCP Internal Medicine
DX: M62.82 Rhabdomyolysis (principal); I21.4 Non-ST elevation (NSTEMI) myocardial infarction; I50.9 Heart failure, unspecified; Z20.822 Contact with and (suspected) exposure to COVID-19; I48.91 Unspecified atrial fibrillation; Z79.01 Long term (current) use of anticoagulants; E11.9 Type 2 diabetes mellitus without complications; I73.9 Peripheral vascular disease, unspecified; Z87.891 Personal history of nicotine dependence; Z79.899 Other long term (current) drug therapy; Z79.4 Long term (current) use of insulin
CPT/HCPCS: 36415; 71045; 80053; 80307; 81001; 82140; 82550; 83605; 83735; 83880; 84100; 84443; 84484; 85025; 85610; 86140; 87040; 93005; 96365; 99284; C9803; J0692; U0003; U0005

== ENCOUNTER 2021-08-03 22:50 | Inpatient (IN) | payer MEDICARE, SELFPAY ==
--- NOTE | ~2021-08-03 | US_ITS ---
US renal BI 08/04/2021 14:47 Procedure: Realtime transabdominal ultrasound of the kidneys and bladder. Indication: Acute renal failure Comparison: 06/30/2018 Findings: Renal echotexture is normal bilaterally without hydronephrosis, contour deforming mass or r enal calculus. The right kidney measures 11.5 cm and left kidney measures 12.8 cm. There is a Nayak c atheter in the bladder limiting evaluation due to underdistention. Impression: 1: Unremarkable renal ultrasound. No stones, masses or hydronephrosis. Reviewed, dictated and finalized at location A. Impression: 1: Unremarkable renal ultrasound. No stones, masses or hydronephrosis.
--- NOTE | 2021-08-03 22:53 | ADMGEN ---
This patient, Diego Marquez Sr., was admitted to IMU Room 200-01. Patient/family oriented to hospital policies and general routines including ID bracelet, bed and alarms, visiting hours, pain management, procedures, bathroom and other care routines, personal items, smoking policy, room service/diet, and visiting hours. Information on how to activate the Rapid Response Team has been discussed. Patient/Family are encouraged to report perceived risks to care and to ask questions if they do not understand what they are told or what they should do.
--- NOTE | 2021-08-03 22:57 | ECG_ITS ---
Measurements Intervals [place] Rate: 87 P: [place]: 0 QRS: 12 QRSD: 98 T: -22 QT: 353 QTc: 427 Interpretive Statements ATRIAL FIBRILLATION VENTRICULAR PREMATURE COMPLEXES DELAYED PRECORDIAL R/S TRANSITION BORDERLINE ST-T WAVE ABNORMALITY- ANTEROLAT/INF LEADS ABNORMAL ECG Electronically Signed On 08-04-2021 6:35:28 CDT by Celso Haro D.O.
[2021-08-03 23:00] VITALS: PULSE 88
[2021-08-03 23:03] VITALS: BP 93/57; PULSE 95; RESP 22; TEMP 37.2; O2SAT 96
[2021-08-03 23:04] VITALS: BMI 39.1
--- NOTE | 2021-08-03 23:19 | PM.IMHP ---
H&P: HPI History of Present Illness Date/Time: 08/03/21 23:19 Chief Complaint: weakness and fall x2 Narrative: 71-year-old male with past medical history of essential hypertension, insulin-dependent diabetes mellitus, coronary artery disease, atrial fibrillation, sick sinus syndrome status post pacemaker who presented to [facility] due to weakness and 2 falls. The patient has been feeling progressively more weak for the last month. He has been having episodes of feeling lightheaded with standing up. Last night he fell into the side of his bed and slid down onto the floor. He denies hitting his head. He was down on the floor for approximately 6 hours according to nursing report. The patient denies having any ill symptoms. He reports that he may cough on occasion. While I was in the room the patient cough multiple times. When I examined the patient's mucous membranes he had significant green mucus adherent to the roof of his mouth. Patient denied any nasal congestion or rhinorrhea. He does have obstructive sleep apnea and uses CPAP. He denies any shortness of breath, orthopnea or paroxysmal nocturnal dyspnea. He denies any recent ill contacts. He denies any dysuria or hematuria. A Nayak catheter was placed at the outside ER in the patient has had little to no urine output. He reports that his last bowel movement was yesterday and was normally formed without hematochezia or melena. He received his 1st initial COVID vaccines but has not received his booster. His 2nd vaccine on was October 2020. Nursing staff noted that the patient was wearing compression knows to his lower extremities that were 30 and crusted. When the compression was were removed patient had multiple chronic hearing skin lesions. He has a ulcer to the bottom of the left foot. He denies any increased warmth or pain to his lower extremities. His COVID PCR the outside facility was negative. Influenza swab was also negative. Labs demonstrated white count 24987 hemoglobin 13.5 platelet count 277,000 with 80% neutrophils. PTT 29.2 INR 2.9 sodium 119 potassium 4.2 chloride 82 CO2 26 BUN 34 creatinine 1.9 glucose 116 osmolality 256 lactic acid 2.8 with repeat of 2.1 AST 187 ALT 44 alk-phos 81 CK greater than 1000 troponin was 143 with maximum on the scale of 60 BNP 3255, CRP greater than 25 TSH 1.35, urine drug screen was positive for opiates and benzodiazepines UA demonstrated 1+ protein 3+ blood negative ketones. At the outside facility the patient received a dose of cefepime. He did not receive any IV fluids. Review of Systems Review of Systems: 12 systems were reviewed with pertinent positives and negatives per HPI. Except as documented in the HPI, all other systems were reviewed and are negative. 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 Diabetes mellitus Diabetic peripheral neuropathy Erectile dysfunction Essential hypertension Hemochromatosis However patient's iron studies demonstrate a low iron level (12/2020), normal transferrin (in 2019) and normal hemoglobin and now actually has what appears bandemia chronic disease Mixed hyperlipidemia (04/20/17) Obesity (BMI 35.0-39.9 without comorbidity) SAKSHI on CPAP (03/2019) CPAP of 7 Peripheral artery disease Sick sinus syndrome (04/18/17) Urge urinary incontinence Surgical History Surgical History (Updated 08/04/21 @ 02:00 by Araceli Jacobs DO) H/O right heart catheterization Hx of CABG (~2004) Four-vessel CABG Pacemaker (04/2015) Single-chamber MRI compatible pacemaker Family History Family History Father Acute myocardial infarction Son Family history of obesity
[2021-08-03] MEDS: SODIUM CHLORIDE 0.9% IV 1,000 ML 100 ML IV CONT (23:28)
[2021-08-03 23:46] LABS: Lactic Acid Reflex 1.3 mmol/L (0.7-2.0)
[2021-08-03 23:51] LABS: Anion Gap 12 mmol/L (8-16); Blood Urea Nitrogen 40 mg/dL (9-20); Calcium 8.4 mg/dL (8.4-10.2); Carbon Dioxide 22 mmol/L (22-30); Chloride 86 mmol/L (98-107); Estimated CRCL calculation 47 ml/min; Estimated Glomerular Filt Rate 43; Glucose 176 mg/dL (65-110); Potassium 4.6 mmol/L (3.4-5.0); Sodium 120 mmol/L (137-145)
[2021-08-04] VITALS (20 sets, daily range): BP systolic 79–134; BP diastolic 45–78; PULSE 56–96; RESP 15–26; TEMP 36.4–36.9; O2SAT 92–98; BMI 39.1
--- NOTE | 2021-08-04 | ECHO_ITS ---
Patient Info Name: Diego Marquez Age: 71 years : 1950 Gender: Male Ht: 68 in Wt: 257 lbs BSA: 2.42 m2 HR: 72 bpm BP: 109 / 52 mmHg Heart Rhythm: Atrial Fibrillation Technical Quality: Fair Exam Date: 08/04/2021 12:19 PM Exam Location: [facility] Patient Status: Inpatient Admit Date: 08/03/2021 Staff Ordering Physician: Celso Haro DO Crester: Rosi Olsen RDCS Attending Provider: Araceli Jacobs DO Referring Physician: Tahir DOTSON; Exam Type: CA echo dop color flow w con Study Info Indications - ELEVATED TROPONIN Complete two-dimensional, color flow and Doppler transthoracic echocardiogram is performed with contrast to opacify the left ventricle and to improve the deliniation of the left ventricle endocardial borders. Contrast/Agitated Saline Contrast/Ag. Saline: Definity Amount: 3.00 ml Administered By: Rosi Olsen RDCS Existing IV Access: Yes IV Access Condition: patent with no signs of infiltration Summary 1. Left ventricular chamber dimension is normal. 2. Definity contrast administered improved wall motion interpretation. 3. Left ventricular systolic function is normal, estimated at 55-60%. 4. There is mildly increased left ventricular wall thickness. 5. Left ventricular septal wall motion is abnormal with septal motion related to bundle branch block. 6. The left ventricular diastolic function is abnormal. 7. E/e' 17 is elevated. 8. Right ventricular systolic function is reduced based on reduced TAPSE 1.0 cm. 9. Linear artifact in right ventricle suggestive of catheter(s), pacemaker lead(s), or ICD lead(s). 10. Left atrial chamber dimension is moderately enlarged. 11. Linear artifact in the right atrium suggestive of catheter(s), pacemaker lead(s), or ICD lead(s). 12. There is moderate aortic valve sclerosis. 13. There is mild aortic valve stenosis with a peak velocity of 227.36 cm/s, mean gradient of 12 mmHg, and aortic valve area of 1.53 cm2. 14. The mitral valve has moderately calcified annulus. 15. There is mild tricuspid valve regurgitation. 16. Mild pulmonary hypertension, estimated pulmonary arterial systolic pressure is 45 mmHg. 17. There is trace pulmonic regurgitation. 18. Dilated inferior vena cava with >50% collapse upon inspiration consistent with elevated right atrial pressure, 10 mmHg. Left Ventricle E/e' 17 is elevated. Atrial fibrillation. Definity contrast administered improved wall motion interpretation. Left ventricular chamber dimension is normal. Left ventricular systolic function is normal, estimated at 55-60%. There is mildly increased left ventricular wall thickness. Left ventricular septal wall motion is abnormal with septal motion related to bundle branch block. The left ventricular diastolic function is abnormal. Right Ventricle Linear artifact in right ventricle suggestive of catheter(s), pacemaker lead(s), or ICD lead(s). Right ventricular systolic function is reduced based on reduced TAPSE 1.0 cm. Right ventricular chamber dimension is not well visualized. Left Atria Left atrial chamber dimension is moderately enlarged. Right Atria Linear artifact in the right atrium suggestive of catheter(s), pacemaker lead(s), or ICD lead(s). Right atrial chamber dimension is normal. Aortic Valve The aortic valve is trileaflet. There is moderate aortic valve sclerosis. There is mild aortic valve stenosis with a peak velocity of 227.36 cm/s, mean grad
[2021-08-04 00:04] LABS: Creatine Kinase 8765 U/L (55-170); Troponin I 0.107 ng/mL (0.000-0.034)
[2021-08-04] MEDS: SODIUM CHLORIDE 0.9% IV 1,000 ML 500 ML IV CONT (02:04)
[2021-08-04 02:49] LABS: Troponin I 0.105 ng/mL (0.000-0.034)
[2021-08-04 05:49] LABS: Anion Gap 10 mmol/L (8-16); Blood Urea Nitrogen 42 mg/dL (9-20); Carbon Dioxide 23 mmol/L (22-30); Chloride 85 mmol/L (98-107); Estimated CRCL calculation 42 ml/min; Estimated Glomerular Filt Rate 37; Glucose 187 mg/dL (65-110); Potassium 4.1 mmol/L (3.4-5.0); Sodium 118 mmol/L (137-145)
[2021-08-04 06:00] LABS: Troponin I 0.098 ng/mL (0.000-0.034)
[2021-08-04 07:21] LABS: INR 2.3; Prothrombin Time 24.1 Seconds (11.1-14.7)
[2021-08-04 07:54] LABS: Glucose Point of Care 300 mg/dl (65-105)
[2021-08-04] MEDS: GABAPENTIN 300 MG CAPSULE PO ×3 (08:19→17:13)
[2021-08-04] MEDS: ROSUVASTATIN 10 MG TABLET PO (08:19)
[2021-08-04] MEDS: OXYBUTYNIN CHLORIDE 5 MG TABLET PO ×2 (08:19→17:13)
[2021-08-04] MEDS: INSULIN ASPART (*BKC) 100 UNITS/ML SUB-Q ×2 (08:21→12:10)
[2021-08-04] MEDS: INSULIN HUMAN ISOPHAN/REGULAR 70/30 (*BKC) 100 UNITS/ML 60 UNITS SUB-Q ×2 (08:21→17:16)
--- NOTE | 2021-08-04 08:27 | PM.IMPN ---
Progress Note: A&P Assessment and Plan (1) Rhabdomyolysis: Qualifiers: Rhabdomyolysis type: non-traumatic Qualified Code(s): M62.82 - Rhabdomyolysis Code(s): M62.82 - Rhabdomyolysis Status: Acute Assessment and Plan: Improving. Will need to monitor for fluid overload due to patient cardiac history. -Continue IVF for now (2) Sepsis: Qualifiers: Sepsis type: sepsis due to unspecified organism Sepsis acute organ dysfunction status: with acute organ dysfunction Severe sepsis acute organ dysfunction type: acute renal failure Acute renal failure type: unspecified Severe sepsis shock status: without septic shock Qualified Code(s): A41.9 - Sepsis, unspecified organism; R65.20 - Severe sepsis without septic shock; N17.9 - Acute kidney failure, unspecified Code(s): A41.9 - Sepsis, unspecified organism Status: Acute Assessment and Plan: Will check inflammatory markers. Has chronic venous stasis. -Continue ceftriaxone and azithromycin for now (3) Acute kidney injury: Code(s): N17.9 - Acute kidney failure, unspecified Status: Acute (4) Atrial fibrillation: Onset Date: 04/20/17 Code(s): I48.91 - Unspecified atrial fibrillation Status: Acute Assessment and Plan: On warfarin - INR in theraputic range. Continue warfarin. (5) Hyponatremia: Code(s): E87.1 - Hypo-osmolality and hyponatremia Status: Acute Assessment and Plan: Worsened overnight. Nephrology consulted for hyponatremia. (6) CAD (coronary artery disease), autologous vein bypass graft: Code(s): I25.810 - Atherosclerosis of coronary artery bypass graft(s) without angina pectoris Status: Acute Assessment and Plan: Continue RADHA, (7) Dyslipidemia: Code(s): E78.5 - Hyperlipidemia, unspecified Status: Acute Assessment and Plan: Continue statin. (8) Hypertension: Code(s): I10 - Essential (primary) hypertension Status: Acute Assessment and Plan: Continue lisinopril and HTCZ. Will monitor. (9) Diabetes mellitus: Code(s): E11.9 - Type 2 diabetes mellitus without complications Status: Acute Assessment and Plan: Uncontrolled. Metformin may need to be increased. SSI. (10) Anemia: Code(s): D64.9 - Anemia, unspecified Status: Acute Assessment and Plan: Improved from prior hospitalization. Will monitor. Subjective Date/time seen: 08/04/21 08:27 Patient says he feels better. Says he fell at home and has been having more falls over the last month. Denies chest pain, shortness of breath or difficulty breathing. Review of Systems Cardiovascular: Cardiovascular: Denies chest pain Respiratory: Respiratory: Denies dyspnea Objective Data Vital Signs Vital Signs: Vital Signs - 24 hr 08/03/21 23:03 08/03/21 23:00 08/04/21 00:00 Temperature 99 F Pulse Rate 95 88 Respiratory Rate 22 H Blood Pressure 93/57 L Pulse Oximetry 96 Oxygen Delivery Room Air 08/04/21 00:00 08/04/21 02:00 08/04/21 00:30 Temperature Pulse Rate 95 88 93 Respiratory Rate 26 H Blood Pressure Pulse Oximetry 92 Oxygen Delivery Autopap 08/04/21 04:46 08/04/21 04:00 08/04/21 04:00 Temperature 97.8 F Pulse Rate 84 96 91 Respiratory Rate 23 H 18 Blood Pressure 134/78 Pulse Oximetry 93 98 Oxygen Delivery Autopap 08/04/21 04:00 08/04/21 05:46 08/04/21 07:56 Temperature 98.1 F Pulse Rate 91 74 72 Respiratory Rate 23 H 20 Blood Pressure 109/52 L Pulse Oximetry 93 94 Oxygen Delivery Autopap Intake/Output Intake/Output: Intake & Output 08/01/21 08/02/21 08/03/21 08/04/21 23:59 23:59 23:59 23:59 Intake Total 1300 Output Total 450 Balance 850 Meds/Results Medications: Active Medications Generic Name Dose Route Start Last Admin Trade Name Freq PRN Reason Stop Dose Admin Acetam
[2021-08-04 09:03] LABS: Creatinine Urine 148.6 mg/dL; Total Protein Urine Random 75 mg/dL
[2021-08-04 09:04] LABS: Sodium Urine Random 22 meq/L
[2021-08-04 09:12] LABS: Basophils Percent Auto 0.2 % (0.2-1.2); Hematocrit 37.2 % (42.0-52.0); Hemoglobin 12.3 g/dL (14.0-18.0); Immature Granulocyte Absolute 0.13 K/mm3 (0.00-0.031); Lymphocytes Absolute Auto 1.03 K/mm3 (0.9-3.2); Lymphocytes Percent Auto 7.7 % (18.3-44.2); Mean Corpuscular HGB Conc 33.1 g/dl (32-36); Mean Corpuscular Hemoglobin 24.4 pg (26-34); Mean Corpuscular Volume 73.8 fl (80-100); Mean Platelet Volume 9.2 fl (7.4-10.4); Monocytes Absolute Auto 1.3 K/mm3 (0.1-0.6); Monocytes Percent Auto 9.6 % (2.6-8.5); Neutrophils Absolute Auto 10.9 K/mm3 (1.3-6.7); Neutrophils Percent Auto 81.5 % (45.5-73.1); Platelet Count Result 231 k/mm3 (150-375); Red Blood Count 5.04 M/mm3 (4.6-6.20); Red Cell Distribution Width 19.3 % (11.5-14.5); White Blood Count 13.4 K/mm3 (4.5-10.0)
[2021-08-04 09:15] LABS: Sodium 118 mmol/L (137-145)
[2021-08-04 10:06] LABS: Creatine Kinase 7577 U/L (55-170)
--- NOTE | 2021-08-04 11:19 | P.CONNP_ITS ---
Assessment and Plan Assessment and plan (1) Acute kidney injury: Code(s): N17.9 - Acute kidney failure, unspecified Status: Acute Assessment and Plan: * suspect due early sepsis, hypotension, rhabdomyolysis, and infection * follow trend of CPK * check renal ultrasound * follow-up on urine electrolytes * follow repeat labs and UOP (2) Hyponatremia: Code(s): E87.1 - Hypo-osmolality and hyponatremia Status: Acute Assessment and Plan: * several risk factors: * KATHY/renal failure * HCTZ use * narcotic use * pre-renal factors * follow-up on TSH and cortisol levels as well as urine electrolytes * check SPEP, UPEP, and serum/urine osmo * follow serial sodium levels * consider 3% saline if unable to get sodium > 120 (3) Rhabdomyolysis: Qualifiers: Rhabdomyolysis type: non-traumatic Qualified Code(s): M62.82 - Rhabdomyolysis Code(s): M62.82 - Rhabdomyolysis Status: Acute Assessment and Plan: * elevated (> 10,000) on admission * slowly trending down * follow CPK levels (4) Sepsis: Qualifiers: Acute renal failure type: unspecified Sepsis acute organ dysfunction status: with acute organ dysfunction Sepsis type: sepsis due to unspecified organism Severe sepsis acute organ dysfunction type: acute renal failure Severe sepsis shock status: without septic shock Qualified Code(s): A41.9 - Sepsis, unspecified organism; R65.20 - Severe sepsis without septic shock; N17.9 - Acute kidney failure, unspecified Code(s): A41.9 - Sepsis, unspecified organism Status: Acute Assessment and Plan: * criteria met with admission tachycardia, tachypnea, elevated WBC, and fever * source not clear * follow culture date * monitor hemodynamics closely * empiric antibiotic therapy (5) Atrial fibrillation: Onset Date: 04/20/17 Code(s): I48.91 - Unspecified atrial fibrillation Status: Chronic Assessment and Plan: * rate controlled strategy * on anticoagulation (6) Diabetes mellitus: Code(s): E11.9 - Type 2 diabetes mellitus without complications Status: Chronic Plan * follow accuchecks * glycemic control Will continue to follow. History of Present Illness Reason for Consult Consult date: 08/04/21 Reason for consult: acute renal failure and hyponatremia Chief Complaint Chief complaint: non stemi History of Present Illness Narrative: The patient is a 71-year-old male with a past medical history as outlined below who presented to the [facility] due to complaints of weakness and 2 separate falls. Apparently, the patient has been getting progressively more more weak for the last month with episodes of lightheadedness particularly when standing up. The night before admission, he apparently fell on to the side of his bed and slid to the floor he apparently did not lose consciousness nor did he hit his head. He was apparently on the floor for approximately 6 hours per review of outside [facility] hospital records. He gave no systemic complaints with regard to fevers, chills, nausea, vomiting, shortness of breath, orthopnea, or PND symptoms. It is difficult to fully assess if he has been eating and drinking okay although he reports he does not recall very much urine output in the last day or so. Workup and evaluation at the outside hospital emergency room demonstrated his COVID 19 test to be negative as well as was his influenza swabs. Routine blood test demonstrated elevated white blood
--- NOTE | 2021-08-04 11:19 | PM.CNNEP ---
Assessment and Plan Assessment and plan (1) Acute kidney injury: Code(s): N17.9 - Acute kidney failure, unspecified Status: Acute Assessment and Plan: suspect due early sepsis, hypotension, rhabdomyolysis, and infection follow trend of CPK check renal ultrasound follow-up on urine electrolytes follow repeat labs and UOP (2) Hyponatremia: Code(s): E87.1 - Hypo-osmolality and hyponatremia Status: Acute Assessment and Plan: several risk factors: KATHY/renal failure HCTZ use narcotic use pre-renal factors follow-up on TSH and cortisol levels as well as urine electrolytes check SPEP, UPEP, and serum/urine osmo follow serial sodium levels consider 3% saline if unable to get sodium > 120 (3) Rhabdomyolysis: Qualifiers: Rhabdomyolysis type: non-traumatic Qualified Code(s): M62.82 - Rhabdomyolysis Code(s): M62.82 - Rhabdomyolysis Status: Acute Assessment and Plan: elevated (> 10,000) on admission slowly trending down follow CPK levels (4) Sepsis: Qualifiers: Acute renal failure type: unspecified Sepsis acute organ dysfunction status: with acute organ dysfunction Sepsis type: sepsis due to unspecified organism Severe sepsis acute organ dysfunction type: acute renal failure Severe sepsis shock status: without septic shock Qualified Code(s): A41.9 - Sepsis, unspecified organism; R65.20 - Severe sepsis without septic shock; N17.9 - Acute kidney failure, unspecified Code(s): A41.9 - Sepsis, unspecified organism Status: Acute Assessment and Plan: criteria met with admission tachycardia, tachypnea, elevated WBC, and fever source not clear follow culture date monitor hemodynamics closely empiric antibiotic therapy (5) Atrial fibrillation: Onset Date: 04/20/17 Code(s): I48.91 - Unspecified atrial fibrillation Status: Chronic Assessment and Plan: rate controlled strategy on anticoagulation (6) Diabetes mellitus: Code(s): E11.9 - Type 2 diabetes mellitus without complications Status: Chronic Plan follow accuchecks glycemic control Will continue to follow. History of Present Illness Reason for Consult Consult date: 08/04/21 Reason for consult: acute renal failure and hyponatremia Chief Complaint Chief complaint: non stemi History of Present Illness Narrative: The patient is a 71-year-old male with a past medical history as outlined below who [facility] due to complaints of weakness and 2 separate falls. Apparently, the patient has been getting progressively more more weak for the last month with episodes of lightheadedness particularly when standing up. The night before admission, he apparently fell on to the side of his bed and slid to the floor he apparently did not lose consciousness nor did he hit his head. He was apparently on the floor for approximately 6 hours per review of outside [facility] hospital records. He gave no systemic complaints with regard to fevers, chills, nausea, vomiting, shortness of breath, orthopnea, or PND symptoms. It is difficult to fully assess if he has been eating and drinking okay although he reports he does not recall very much urine output in the last day or so. Workup and evaluation at the outside hospital emergency room demonstrated his COVID 19 test to be negative as well as was his influenza swabs. Routine blood test demonstrated elevated white blood cell count with a left shift, and iron are of 2.9, and evidence of acute kidney injury with a elevated BUN and creatinine (34 and 1.9 respectively) in association with significant hyponatremia of 119. His lactic acid was mildly elevated 2.8 and his CPK was greater than 10,000. his urine drug screen was positive for opioids as well as benzodiazepines and his urinalysis was significant for 1+ protein and 3+ blood. Appropriate cultur
[2021-08-04 11:36] LABS: Glucose Point of Care 238 mg/dl (65-105)
--- NOTE | 2021-08-04 12:09 | PM.CNCAR ---
Assessment and Plan Assessment and plan (1) Atrial fibrillation: Onset Date: 04/20/17 Code(s): I48.91 - Unspecified atrial fibrillation Status: Acute Assessment and Plan: Rate is intermittently paced. On Warfarin with INR 2.3. (2) Pacemaker: Code(s): Z95.0 - Presence of cardiac pacemaker Status: Acute (3) Dyslipidemia: Code(s): E78.5 - Hyperlipidemia, unspecified Status: Acute Assessment and Plan: On Rosuvastatin. (4) Hypertension: Code(s): I10 - Essential (primary) hypertension Status: Acute Assessment and Plan: Stable. (5) CAD (coronary artery disease), autologous vein bypass graft: Code(s): I25.810 - Atherosclerosis of coronary artery bypass graft(s) without angina pectoris Status: Acute Assessment and Plan: Stable. (6) Acute kidney injury: Code(s): N17.9 - Acute kidney failure, unspecified Status: Acute (7) Elevated troponin: Code(s): R77.8 - Other specified abnormalities of plasma proteins Status: Acute Assessment and Plan: Troponin peaked at .107 and trending down. No symptoms to suggest ACS. Likely due to sepsis from leg wound, rhabdomyolysis. Obtain echo. (8) Rhabdomyolysis: Qualifiers: Rhabdomyolysis type: non-traumatic Qualified Code(s): M62.82 - Rhabdomyolysis Code(s): M62.82 - Rhabdomyolysis Status: Acute Assessment and Plan: IVF but gentle hydration only given diastolic dysfunction. (9) Sepsis: Qualifiers: Sepsis type: sepsis due to unspecified organism Sepsis acute organ dysfunction status: with acute organ dysfunction Severe sepsis acute organ dysfunction type: acute renal failure Acute renal failure type: unspecified Severe sepsis shock status: without septic shock Qualified Code(s): A41.9 - Sepsis, unspecified organism; R65.20 - Severe sepsis without septic shock; N17.9 - Acute kidney failure, unspecified Code(s): A41.9 - Sepsis, unspecified organism Status: Acute Assessment and Plan: On antibitiocs as per hospitalist. (10) Chronic venous stasis dermatitis of both lower extremities: Code(s): I87.2 - Venous insufficiency (chronic) (peripheral) Status: Acute (11) Diastolic dysfunction: Code(s): I51.89 - Other ill-defined heart diseases Status: Acute History of Present Illness History of Present Illness Consult date/time: 08/04/21 12:09 Reason for consult: Elevated troponin Patient is a 71 yr old man who is my regular cardiology patient presents after found on floor for 6 hours. . He has a history of CAD with CABG, DM, hypertension, dyslipidemia, SAKSHI on CPAP, [employer] pacemaker, Atrial fib with SVR on warfarin, obesity. Reports he slipped out of bed but unable to get back up. His son came to his house and found him and called EMS and brought to [place] ER then transferred here. He had shakes with fever and chills recently. He can walk 1 mile and limited by knee pains. Denies chest pain, sob, orthopnea, palpitations. Cardiovascular Procedures Echo/MUGA:: 12/23/20 Echo: EF 55-60%, mild LVH, diastolic dysfunction (E/e' 14), mild RVE/hypokinesis, mod biatrial enlargement, mild MR/TR, RVSP 45 mmHg. Echo (EF 55%, mild-mod LVH, diastolic dysfunction not assessed, mild-mod LAE, mild MR/TR, trace PI.) - 04/28/2015 Stress Tests:: Devices (MRI compatible single chamber PPM implanted by Dr. Grijalva.) - 05/06/2015 EKG (Atrial fibrillation at 46 bpm, IVCD, borderline ST-T wave abnormality in diffuse leads, delayed precordial R/S transition.) - 04/21/2015 Sleep Study (SAKSHI.) - 04/29/2015 Reason For Visit: non stemi Review of Systems Review of Systems: All systems reviewed & are unremarkable except as noted in HPI and below Constitutional: Constitutional: Reports as per HPI, Reports chills and Reports fever(s) Cardiovascular: Cardiovascular: Reports as per HPI, Denies chest pain, Denies ir
[2021-08-04] MEDS: PERFLUTREN LIPID MICROSPHERES 1.5 ML VIAL DILUTED TO 10 ML TOTAL VOLUME IV PUSH (12:59)
--- NOTE | 2021-08-04 13:00 | IVDEFINITY ---
Prior to administration of IV Definity the patient was educated on the risks and benefits of the imaging enhancing agent including potential adverse side effects. The patient verbalized understanding. Allergies were verified. No exclusion criteria were identified and at least one of the following inclusion criteria were met: 1) physician request, 2) patient technically difficult to image (per the [place] [employer] guidelines of two or more segments not discernable within the apical view), or 3) questionable left ventricular function. ?
[2021-08-04 13:26] LABS: Sodium 119 mmol/L (137-145)
[2021-08-04 16:12] LABS: Glucose Point of Care 187 mg/dl (65-105)
[2021-08-04] MEDS: SODIUM CHLORIDE 0.9% IV 1,000 ML 75 ML IV CONT (16:21)
[2021-08-04] MEDS: WARFARIN (*PBKC) 2 MG TABLET 4 MG PO (17:12)
[2021-08-04 17:41] LABS: Sodium 119 mmol/L (137-145)
--- NOTE | 2021-08-04 17:53 | PC.NURSE ---
Spoke with Dr. Drake regarding sodium level of 119. Pt's sodium hasn't moved much since admission. Na of 118 x 2 and then 119 x 2. New order to stop IVF now, start 3% NS x 3 hours, then recheck sodium level one hour after. Call Dr. Drake with results
[2021-08-04] MEDS: SODIUM CHLORIDE 3% 500 ML 100 ML IV CONT (18:35)
[2021-08-04 19:24] LABS: INR 2.2; Prothrombin Time 23.6 Seconds (11.1-14.7)
[2021-08-04 21:30] LABS: Glucose Point of Care 168 mg/dl (65-105)
[2021-08-04 22:36] LABS: Sodium 122 mmol/L (137-145)
[2021-08-05] VITALS (15 sets, daily range): BP systolic 95–121; BP diastolic 48–67; PULSE 67–87; RESP 14–20; TEMP 36.4–37.1; O2SAT 94–99
[2021-08-05 05:02] LABS: Basophils Percent Auto 0.3 % (0.2-1.2); Eosinophils Percent Auto 0.2 % (0-4.4); Hematocrit 36.1 % (42.0-52.0); Hemoglobin 11.4 g/dL (14.0-18.0); Immature Granulocyte Absolute 0.07 K/mm3 (0.00-0.031); Immature Granulocyte Percent A 0.8 % (0-0.5); Lymphocytes Absolute Auto 1.05 K/mm3 (0.9-3.2); Lymphocytes Percent Auto 11.5 % (18.3-44.2); Mean Corpuscular HGB Conc 31.6 g/dl (32-36); Mean Corpuscular Hemoglobin 24.2 pg (26-34); Mean Corpuscular Volume 76.6 fl (80-100); Mean Platelet Volume 9.4 fl (7.4-10.4); Monocytes Absolute Auto 1.4 K/mm3 (0.1-0.6); Monocytes Percent Auto 15.7 % (2.6-8.5); Neutrophils Absolute Auto 6.5 K/mm3 (1.3-6.7); Neutrophils Percent Auto 71.5 % (45.5-73.1); Platelet Count Result 201 k/mm3 (150-375); Red Blood Count 4.71 M/mm3 (4.6-6.20); Red Cell Distribution Width 19.4 % (11.5-14.5); White Blood Count 9.1 K/mm3 (4.5-10.0)
[2021-08-05 05:15] LABS: INR 2.1; Prothrombin Time 22.6 Seconds (11.1-14.7)
[2021-08-05 05:19] LABS: Anion Gap 6 mmol/L (8-16); Blood Urea Nitrogen 50 mg/dL (9-20); Carbon Dioxide 26 mmol/L (22-30); Chloride 92 mmol/L (98-107); Estimated CRCL calculation 58 ml/min; Estimated Glomerular Filt Rate 54; Glucose 107 mg/dL (65-110); Potassium 3.8 mmol/L (3.4-5.0); Sodium 124 mmol/L (137-145)
[2021-08-05 05:28] LABS: Erythrocyte Sedimentation Rate 52 mm/hr (0-20)
[2021-08-05 05:29] LABS: CRP 16.3 mg/dL (<1.0)
--- NOTE | 2021-08-05 08:05 | PM.PNCARD ---
Progress Note: A&P Assessment and Plan (1) Atrial fibrillation: Onset Date: 04/20/17 Code(s): I48.91 - Unspecified atrial fibrillation Status: Acute Assessment and Plan: Rate is intermittently paced. On Warfarin with therapeutic INR. (2) Pacemaker: Code(s): Z95.0 - Presence of cardiac pacemaker Status: Acute (3) Dyslipidemia: Code(s): E78.5 - Hyperlipidemia, unspecified Status: Acute Assessment and Plan: On Rosuvastatin. (4) Hypertension: Code(s): I10 - Essential (primary) hypertension Status: Acute Assessment and Plan: Stable. (5) CAD (coronary artery disease), autologous vein bypass graft: Code(s): I25.810 - Atherosclerosis of coronary artery bypass graft(s) without angina pectoris Status: Acute Assessment and Plan: Stable. (6) Acute kidney injury: Code(s): N17.9 - Acute kidney failure, unspecified Status: Acute (7) Rhabdomyolysis: Qualifiers: Rhabdomyolysis type: non-traumatic Qualified Code(s): M62.82 - Rhabdomyolysis Code(s): M62.82 - Rhabdomyolysis Status: Acute Assessment and Plan: IVF but gentle hydration only given diastolic dysfunction. (8) Elevated troponin: Code(s): R77.8 - Other specified abnormalities of plasma proteins Status: Acute Assessment and Plan: Troponin peaked at .107 and trending down. No symptoms to suggest ACS.? Likely due to sepsis from leg wound, rhabdomyolysis. Echo shows EF 55-60%, mild LVH, diastolic dysfunction (E/e' 17), RV dysfunction based on abnormal TAPSE, mod LAE, mild (RINA 1.5 cm2), mild TR, RVSP 45 mmHg. (9) Sepsis: Qualifiers: Sepsis type: sepsis due to unspecified organism Sepsis acute organ dysfunction status: with acute organ dysfunction Severe sepsis acute organ dysfunction type: acute renal failure Acute renal failure type: unspecified Severe sepsis shock status: without septic shock Qualified Code(s): A41.9 - Sepsis, unspecified organism; R65.20 - Severe sepsis without septic shock; N17.9 - Acute kidney failure, unspecified Code(s): A41.9 - Sepsis, unspecified organism Status: Acute Assessment and Plan: On antibitiocs as per hospitalist. (10) Chronic venous stasis dermatitis of both lower extremities: Code(s): I87.2 - Venous insufficiency (chronic) (peripheral) Status: Acute (11) Diastolic dysfunction: Code(s): I51.89 - Other ill-defined heart diseases Status: Acute Subjective Date/time seen: 08/05/21 08:05 Denies chest pain or sob. Exam Const: General: cooperative, healthy appearing and comfortable Nutritional Appearance: obese Resp: Auscultation: clear to auscultation bilaterally, no crackles, no rales, no rhonchi and no wheezes Cardio: Jugular venous distension: no JVD Rate: regular rate Rhythm: regular rhythm Heart sounds: no murmurs Peripheral pulses: dorsalis pedis present GI: GI Palp: No abdominal tenderness and Yes Soft to palpation Neuro: General: oriented to person, oriented to place and oriented to time Extrem: Other: Erythema of both legs left>right Objective Data Vital Signs Vital Signs: Vital Signs - 24 hr 08/04/21 09:40 08/04/21 09:42 08/04/21 10:00 Temperature 98.5 F Pulse Rate 72 72 74 Respiratory Rate 18 Blood Pressure 99/45 L 79/45 L Pulse Oximetry 94 Oxygen Delivery 08/04/21 11:56 08/04/21 12:00 08/04/21 12:00 Temperature 98.3 F Pulse Rate 74 78 Respiratory Rate 18 Blood Pressure 103/51 L Pulse Oximetry 95 95 Oxygen Delivery Room Air 08/04/21 14:00 08/04/21 16:00 08/04/21 16:00 Temperature 98.1 F Pulse Rate 77 76 71 Respiratory Rate 16 Blood Pressure 107/57 L Pulse Oximetry 96 Oxygen Delivery 08/04/21 16:00 08/04/21 18:00 08/04/21 20:00 Temperature 98.5 F Pulse Rate 82 71 Respiratory Rate 20 Blood Pressure 113/62 Pulse Oximetry 95
[2021-08-05] MEDS: OXYBUTYNIN CHLORIDE 5 MG TABLET PO ×2 (08:15→16:22)
[2021-08-05] MEDS: GABAPENTIN 300 MG CAPSULE PO ×3 (08:15→16:21)
[2021-08-05] MEDS: ROSUVASTATIN 10 MG TABLET PO (08:15)
[2021-08-05] MEDS: INSULIN HUMAN ISOPHAN/REGULAR 70/30 (*BKC) 100 UNITS/ML 60 UNITS SUB-Q ×2 (08:15→16:22)
[2021-08-05 09:02] LABS: Glucose Point of Care 126 mg/dl (65-105)
--- NOTE | 2021-08-05 11:46 | PM.IMPN ---
Progress Note: A&P Assessment and Plan (1) Diabetes mellitus: Code(s): E11.9 - Type 2 diabetes mellitus without complications Status: Chronic (2) Diastolic dysfunction: Code(s): I51.89 - Other ill-defined heart diseases Status: Acute (3) Atrial fibrillation: Onset Date: 04/20/17 Code(s): I48.91 - Unspecified atrial fibrillation Status: Chronic (4) Acute kidney injury: Code(s): N17.9 - Acute kidney failure, unspecified Status: Acute (5) Chronic venous stasis dermatitis of both lower extremities: Code(s): I87.2 - Venous insufficiency (chronic) (peripheral) Status: Acute (6) Sepsis: Qualifiers: Acute renal failure type: unspecified Sepsis acute organ dysfunction status: with acute organ dysfunction Sepsis type: sepsis due to unspecified organism Severe sepsis acute organ dysfunction type: acute renal failure Severe sepsis shock status: without septic shock Qualified Code(s): A41.9 - Sepsis, unspecified organism; R65.20 - Severe sepsis without septic shock; N17.9 - Acute kidney failure, unspecified Code(s): A41.9 - Sepsis, unspecified organism Status: Acute (7) Anemia: Code(s): D64.9 - Anemia, unspecified Status: Acute (8) Hyponatremia: Code(s): E87.1 - Hypo-osmolality and hyponatremia Status: Acute (9) Elevated troponin: Code(s): R77.8 - Other specified abnormalities of plasma proteins Status: Acute (10) Rhabdomyolysis: Qualifiers: Rhabdomyolysis type: non-traumatic Qualified Code(s): M62.82 - Rhabdomyolysis Code(s): M62.82 - Rhabdomyolysis Status: Acute (11) Hypertension: Code(s): I10 - Essential (primary) hypertension Status: Acute (12) Dyslipidemia: Code(s): E78.5 - Hyperlipidemia, unspecified Status: Acute (13) Pacemaker: Code(s): Z95.0 - Presence of cardiac pacemaker Status: Acute (14) CAD (coronary artery disease), autologous vein bypass graft: Code(s): I25.810 - Atherosclerosis of coronary artery bypass graft(s) without angina pectoris Status: Acute Plan 08/05/21 CPK significantly elevated today case reviewed with Nephrology patient placed back on normal saline recommendations appreciated cont abx for PNA atypical pNA labs still pending hyponatremia improving 118 08/04/21-> 122 08/05/21, nephro following INR 2.1 today Blood glucose stable at goal Subjective Date/time seen: 08/05/21 11:46 Patient reports that he is doing okay has no complaints at the time of my interview. He is noted to having rising CPK and this is discussed with Nephrology recommendations appreciated Exam Narrative: GEN: NAD, AAOx3, cooperative HEENT: NCAT, MMM, EOMI Neck: no JVD Heart: IRR Lungs: CTA B/l Abd: soft, NT, ND, bowel sounds normoactive Ext: moves all, no cyanosis, no clubbing, mild edema Neuro: Alert oriented x3 cranial nerves intact Objective Data Vital Signs Vital Signs: Vital Signs - 24 hr 08/04/21 11:56 08/04/21 12:00 08/04/21 12:00 Temperature 98.3 F Pulse Rate 74 78 Respiratory Rate 18 Blood Pressure 103/51 L Pulse Oximetry 95 95 Oxygen Delivery Room Air 08/04/21 14:00 08/04/21 16:00 08/04/21 16:00 Temperature 98.1 F Pulse Rate 77 76 71 Respiratory Rate 16 Blood Pressure 107/57 L Pulse Oximetry 96 Oxygen Delivery 08/04/21 16:00 08/04/21 18:00 08/04/21 20:00 Temperature 98.5 F Pulse Rate 82 71 Respiratory Rate 20 Blood Pressure 113/62 Pulse Oximetry 95 97 Oxygen Delivery Room Air 08/04/21 20:00 08/04/21 20:00 08/04/21 22:00 Temperature Pulse Rate 75 75 77 Respiratory Rate 20 Blood Pressure Pulse Oximetry 97 Oxygen Delivery Room Air 08/04/21 22:24 08/04/21 23:57 08/05/21 00:00 Temperature 97.6 F Pulse Rate 56 L 71 78 Respiratory Rate 15 20 Blood Pressure 124/62 Pulse Oximetry 95 94 Oxygen Delivery Aut
--- NOTE | 2021-08-05 12:27 | P.PNNP_ITS ---
Progress Note: A&P Assessment and Plan (1) Acute kidney injury: Code(s): N17.9 - Acute kidney failure, unspecified Status: Acute Assessment and Plan: * improving * suspect due early sepsis, hypotension, rhabdomyolysis, and infection * evaluation to date: * normal renal ultrasound * urine electroltyes prerenal * CPK elevated - follow trend * suspect may have some underlying CKD given known risk factors * follow repeat labs and UOP (2) Hyponatremia: Code(s): E87.1 - Hypo-osmolality and hyponatremia Status: Acute Assessment and Plan: * improving * several risk factors: * KATHY/renal failure * HCTZ use * narcotic use * pre-renal factors * evaluation to date: * TSH and cortisol okay * urine sodium low/prerenal * no improvement with normal saline IVFs * s/p 3% saline yesterday with improvement in sodium level * goal rate of change in sodium is 4 - 6mmol/L over 24hrs (but not to exceed 8mmol/L) * follow repeat sodium levels (3) Rhabdomyolysis: Qualifiers: Rhabdomyolysis type: non-traumatic Qualified Code(s): M62.82 - Rhabdomyolysis Code(s): M62.82 - Rhabdomyolysis Status: Acute Assessment and Plan: * elevated (> 10,000) on admission * in spite of #2, may need further IVFs = will restart normal saline * follow CPK levels (4) Sepsis: Qualifiers: Acute renal failure type: unspecified Sepsis acute organ dysfunction status: with acute organ dysfunction Sepsis type: sepsis due to unspecified organism Severe sepsis acute organ dysfunction type: acute renal failure Severe sepsis shock status: without septic shock Qualified Code(s): A41.9 - Sepsis, unspecified organism; R65.20 - Severe sepsis without septic shock; N17.9 - Acute kidney failure, unspecified Code(s): A41.9 - Sepsis, unspecified organism Status: Acute Assessment and Plan: * criteria met with admission tachycardia, tachypnea, elevated WBC, and fever * source not clear * follow culture date * monitor hemodynamics closely * empiric antibiotic therapy (5) Atrial fibrillation: Onset Date: 04/20/17 Code(s): I48.91 - Unspecified atrial fibrillation Status: Chronic Assessment and Plan: * rate controlled strategy * on anticoagulation (6) Diabetes mellitus: Code(s): E11.9 - Type 2 diabetes mellitus without complications Status: Chronic Assessment and Plan: * follow accuchecks * glycemic control Will continue to follow. Subjective Date/time seen: 08/05/21 12:27 No acute issues or complaints voiced on my visit; still with flat affect but in no apparent distress; given 3% saline overnight to help improve sodium level as normal saline did not seem to be helping; renal function improving as well but CPK trending back up. Exam Narrative: General: WD/WN male in NADl flat affect Heart: normal S1 and S2; no Lungs: clear to auscultation Abdomen: soft, nontender, nondistended, positive bowel sounds Extremities: no cyanosis or clubbing; no edema Skin: warm and dry Objective Data Vital Signs Vital Signs: Vital Signs Temp Pulse Resp BP Pulse Ox O2 Del Method 08/05/21 12:00 36.4 C 87 14 115/62 99 08/05/21 12:00 Room Air 08/05/21 12:00 72 08/05/21 10:48 Room Air 06
--- NOTE | 2021-08-05 12:27 | PM.PNNEP ---
Progress Note: A&P Assessment and Plan (1) Acute kidney injury: Code(s): N17.9 - Acute kidney failure, unspecified Status: Acute Assessment and Plan: improving suspect due early sepsis, hypotension, rhabdomyolysis, and infection evaluation to date: normal renal ultrasound urine electroltyes prerenal CPK elevated - follow trend suspect may have some underlying CKD given known risk factors follow repeat labs and UOP (2) Hyponatremia: Code(s): E87.1 - Hypo-osmolality and hyponatremia Status: Acute Assessment and Plan: improving several risk factors: KATHY/renal failure HCTZ use narcotic use pre-renal factors evaluation to date: TSH and cortisol okay urine sodium low/prerenal no improvement with normal saline IVFs s/p 3% saline yesterday with improvement in sodium level goal rate of change in sodium is 4 - 6mmol/L over 24hrs (but not to exceed 8mmol/L) follow repeat sodium levels (3) Rhabdomyolysis: Qualifiers: Rhabdomyolysis type: non-traumatic Qualified Code(s): M62.82 - Rhabdomyolysis Code(s): M62.82 - Rhabdomyolysis Status: Acute Assessment and Plan: elevated (> 10,000) on admission in spite of #2, may need further IVFs = will restart normal saline follow CPK levels (4) Sepsis: Qualifiers: Acute renal failure type: unspecified Sepsis acute organ dysfunction status: with acute organ dysfunction Sepsis type: sepsis due to unspecified organism Severe sepsis acute organ dysfunction type: acute renal failure Severe sepsis shock status: without septic shock Qualified Code(s): A41.9 - Sepsis, unspecified organism; R65.20 - Severe sepsis without septic shock; N17.9 - Acute kidney failure, unspecified Code(s): A41.9 - Sepsis, unspecified organism Status: Acute Assessment and Plan: criteria met with admission tachycardia, tachypnea, elevated WBC, and fever source not clear follow culture date monitor hemodynamics closely empiric antibiotic therapy (5) Atrial fibrillation: Onset Date: 04/20/17 Code(s): I48.91 - Unspecified atrial fibrillation Status: Chronic Assessment and Plan: rate controlled strategy on anticoagulation (6) Diabetes mellitus: Code(s): E11.9 - Type 2 diabetes mellitus without complications Status: Chronic Assessment and Plan: follow accuchecks glycemic control Will continue to follow. Subjective Date/time seen: 08/05/21 12:27 No acute issues or complaints voiced on my visit; still with flat affect but in no apparent distress; given 3% saline overnight to help improve sodium level as normal saline did not seem to be helping; renal function improving as well but CPK trending back up. Exam Narrative: General: WD/WN male in NADl flat affect Heart: normal S1 and S2; no Lungs: clear to auscultation Abdomen: soft, nontender, nondistended, positive bowel sounds Extremities: no cyanosis or clubbing; no edema Skin: warm and dry Objective Data Vital Signs Vital Signs: Vital Signs Temp Pulse Resp BP Pulse Ox O2 Del Method 08/05/21 12:00 36.4 C 87 14 115/62 99 08/05/21 12:00 Room Air 08/05/21 12:00 72 08/05/21 10:48 Room Air 08/05/21 10:47 Room Air 08/05/21 10:00 73 08/05/21 08:00 36.4 C 77 16 121/63 97 08/05/21 08:00 Room Air 08/05/21 08:00 76 08/05/21 05:45 77 08/05/21 05:08 75 17 98 Autopap 08/05/21 04:00 36.4 C 83 16 106/67 95 08/05/21 04:00 78 17 94 Autopap 08/05/21 04:00 78 08/05/21 02:00 84 08/05/21 01:43 67 17 94 Autopap 08/05/21 00:00 78 20 94 Autopap 08/05/21 00:00 78 08/04/21 23:57 36.4 C 71 20 124/62 94 08/04/21 22:24 56 L 15 95 Autopap 08/04/21 22:00 77 08/04/21 20:00 75 20 97 Room Air 08/04/21 20:00 75
[2021-08-05 13:00] LABS: Glucose Point of Care 82 mg/dl (65-105)
[2021-08-05 13:24] LABS: Creatine Kinase 14501 U/L (55-170)
[2021-08-05 15:57] LABS: Creatine Kinase 14317 U/L (55-170)
[2021-08-05 16:00] LABS: Sodium 125 mmol/L (137-145)
[2021-08-05] MEDS: SODIUM CHLORIDE 0.9% IV 1,000 ML 75 ML IV CONT (16:19)
[2021-08-05] MEDS: WARFARIN (*PBKC) 2 MG TABLET 4 MG PO (16:21)
[2021-08-05 17:21] LABS: Glucose Point of Care 127 mg/dl (65-105)
[2021-08-05 20:17] LABS: Sodium 126 mmol/L (137-145)
[2021-08-05 20:47] LABS: Glucose Point of Care 168 mg/dl (65-105)
[2021-08-06] VITALS (18 sets, daily range): BP systolic 97–120; BP diastolic 47–62; PULSE 63–83; RESP 16–20; TEMP 36.7–37.3; O2SAT 95–98
[2021-08-06 01:09] LABS: Sodium 127 mmol/L (137-145)
[2021-08-06] MEDS: SODIUM CHLORIDE 0.9% IV 1,000 ML 75 ML IV CONT ×2 (04:35→19:59)
[2021-08-06 05:02] LABS: INR 2.2; Prothrombin Time 23.3 Seconds (11.1-14.7)
[2021-08-06 07:59] LABS: Glucose Point of Care 182 mg/dl (65-105)
[2021-08-06 08:26] LABS: Creatine Kinase 7747 U/L (55-170)
[2021-08-06] MEDS: OXYBUTYNIN CHLORIDE 5 MG TABLET PO ×2 (08:52→17:52)
[2021-08-06] MEDS: ROSUVASTATIN 10 MG TABLET PO (08:52)
[2021-08-06] MEDS: GABAPENTIN 300 MG CAPSULE PO ×3 (08:52→17:52)
[2021-08-06] MEDS: INSULIN HUMAN ISOPHAN/REGULAR 70/30 (*BKC) 100 UNITS/ML 60 UNITS SUB-Q ×2 (08:53→17:52)
--- NOTE | 2021-08-06 09:07 | PM.PNCARD ---
Progress Note: A&P Assessment and Plan (1) Atrial fibrillation: Onset Date: 04/20/17 Code(s): I48.91 - Unspecified atrial fibrillation Status: Chronic Assessment and Plan: Rate is intermittently paced. On Warfarin with therapeutic INR. (2) Pacemaker: Code(s): Z95.0 - Presence of cardiac pacemaker Status: Acute (3) Dyslipidemia: Code(s): E78.5 - Hyperlipidemia, unspecified Status: Acute Assessment and Plan: On Rosuvastatin. (4) Hypertension: Code(s): I10 - Essential (primary) hypertension Status: Acute Assessment and Plan: Stable. (5) CAD (coronary artery disease), autologous vein bypass graft: Code(s): I25.810 - Atherosclerosis of coronary artery bypass graft(s) without angina pectoris Status: Acute Assessment and Plan: Stable. (6) Acute kidney injury: Code(s): N17.9 - Acute kidney failure, unspecified Status: Acute (7) Rhabdomyolysis: Qualifiers: Rhabdomyolysis type: non-traumatic Qualified Code(s): M62.82 - Rhabdomyolysis Code(s): M62.82 - Rhabdomyolysis Status: Acute Assessment and Plan: IVF but gentle hydration only given diastolic dysfunction. (8) Elevated troponin: Code(s): R77.8 - Other specified abnormalities of plasma proteins Status: Acute Assessment and Plan: Troponin peaked at .107 and trending down. No symptoms to suggest ACS.? Likely due to sepsis from leg wound, rhabdomyolysis. Echo shows EF 55-60%, mild LVH, diastolic dysfunction (E/e' 17), RV dysfunction based on abnormal TAPSE, mod LAE, mild (RINA 1.5 cm2), mild TR, RVSP 45 mmHg. (9) Sepsis: Qualifiers: Sepsis type: sepsis due to unspecified organism Sepsis acute organ dysfunction status: with acute organ dysfunction Severe sepsis acute organ dysfunction type: acute renal failure Acute renal failure type: unspecified Severe sepsis shock status: without septic shock Qualified Code(s): A41.9 - Sepsis, unspecified organism; R65.20 - Severe sepsis without septic shock; N17.9 - Acute kidney failure, unspecified Code(s): A41.9 - Sepsis, unspecified organism Status: Acute Assessment and Plan: On antibitiocs as per hospitalist. (10) Chronic venous stasis dermatitis of both lower extremities: Code(s): I87.2 - Venous insufficiency (chronic) (peripheral) Status: Acute (11) Diastolic dysfunction: Code(s): I51.89 - Other ill-defined heart diseases Status: Acute Subjective Date/time seen: 08/06/21 09:07 Denies chest pain or sob. Exam Const: General: cooperative, healthy appearing and comfortable Nutritional Appearance: obese Resp: Auscultation: clear to auscultation bilaterally, no crackles, no rales, no rhonchi and no wheezes Cardio: Jugular venous distension: no JVD Rate: regular rate Rhythm: regular rhythm Heart sounds: no murmurs Peripheral pulses: dorsalis pedis present GI: GI Palp: No abdominal tenderness and Yes Soft to palpation Neuro: General: oriented to person, oriented to place and oriented to time Extrem: Other: Erythema of both legs left>right Objective Data Vital Signs Vital Signs: Vital Signs - 24 hr 08/05/21 10:00 08/05/21 10:47 08/05/21 10:48 Temperature Pulse Rate 73 Respiratory Rate Blood Pressure Pulse Oximetry Oxygen Delivery Room Air Room Air 08/05/21 12:00 08/05/21 12:00 08/05/21 12:00 Temperature 97.6 F Pulse Rate 72 87 Respiratory Rate 14 Blood Pressure 115/62 Pulse Oximetry 99 Oxygen Delivery Room Air 08/05/21 14:00 08/05/21 16:00 08/05/21 16:00 Temperature Pulse Rate 79 71 Respiratory Rate Blood Pressure Pulse Oximetry Oxygen Delivery Room Air 08/05/21 16:00 08/05/21 18:00 08/05/21 20:00 Temperature 98.7 F 98.0 F Pulse Rate 68 74 81 Respiratory Rate 20 20 Blood Pressure 95/48 L 119/56 L Pulse Oximetry 98 98 O
[2021-08-06 09:16] LABS: Albumin Level 3.1 g/dL (3.5-5.1); Anion Gap 7 mmol/L (8-16); Blood Urea Nitrogen 50 mg/dL (9-20); Calcium 8.2 mg/dL (8.4-10.2); Carbon Dioxide 26 mmol/L (22-30); Chloride 95 mmol/L (98-107); Estimated CRCL calculation 62 ml/min; Estimated Glomerular Filt Rate 60; Glucose 142 mg/dL (65-110); Phosphorus 3.8 mg/dL (2.5-4.5); Potassium 4.4 mmol/L (3.4-5.0); Sodium 128 mmol/L (137-145)
--- NOTE | 2021-08-06 10:04 | PM.IMPN ---
Progress Note: A&P Assessment and Plan (1) Diabetes mellitus: Code(s): E11.9 - Type 2 diabetes mellitus without complications Status: Chronic (2) Diastolic dysfunction: Code(s): I51.89 - Other ill-defined heart diseases Status: Acute (3) Atrial fibrillation: Onset Date: 04/20/17 Code(s): I48.91 - Unspecified atrial fibrillation Status: Chronic (4) Acute kidney injury: Code(s): N17.9 - Acute kidney failure, unspecified Status: Acute (5) Chronic venous stasis dermatitis of both lower extremities: Code(s): I87.2 - Venous insufficiency (chronic) (peripheral) Status: Acute (6) Sepsis: Qualifiers: Acute renal failure type: unspecified Sepsis acute organ dysfunction status: with acute organ dysfunction Sepsis type: sepsis due to unspecified organism Severe sepsis acute organ dysfunction type: acute renal failure Severe sepsis shock status: without septic shock Qualified Code(s): A41.9 - Sepsis, unspecified organism; R65.20 - Severe sepsis without septic shock; N17.9 - Acute kidney failure, unspecified Code(s): A41.9 - Sepsis, unspecified organism Status: Acute (7) Anemia: Code(s): D64.9 - Anemia, unspecified Status: Acute (8) Hyponatremia: Code(s): E87.1 - Hypo-osmolality and hyponatremia Status: Acute (9) Elevated troponin: Code(s): R77.8 - Other specified abnormalities of plasma proteins Status: Acute (10) Rhabdomyolysis: Qualifiers: Rhabdomyolysis type: non-traumatic Qualified Code(s): M62.82 - Rhabdomyolysis Code(s): M62.82 - Rhabdomyolysis Status: Acute (11) Hypertension: Code(s): I10 - Essential (primary) hypertension Status: Acute (12) Dyslipidemia: Code(s): E78.5 - Hyperlipidemia, unspecified Status: Acute (13) Pacemaker: Code(s): Z95.0 - Presence of cardiac pacemaker Status: Acute (14) CAD (coronary artery disease), autologous vein bypass graft: Code(s): I25.810 - Atherosclerosis of coronary artery bypass graft(s) without angina pectoris Status: Acute Plan 08/05/21 CPK significantly elevated today case reviewed with Nephrology patient placed back on normal saline recommendations appreciated cont abx for PNA atypical pNA labs still pending hyponatremia improving 118 08/04/21-> 122 08/05/21, nephro following INR 2.1 today Blood glucose stable at goal 08/06/21 UA CXR and blood cultures without source of infection highest documents temp 100.1 one episode in ER no elevated temps since admission will monitor off of abx, unlikely pt is infected severe dehydration w fall and prolonged time down w rhabdo and severe hyponatremia seem to be appropriate POA dx nephro following for hyponatremia CPK now trending down again cont current care possible dc in 72 hrs if rhabdo resolved and pt remains afeberile off abx Subjective Date/time seen: 08/06/21 10:04 no overnight events , son is present history an poc reviewed him. pt does live alone and plan is for him to return home after SNF w closer monitoring Exam Narrative: GEN: NAD, AAOx3, cooperative HEENT: NCAT, MMM, EOMI Neck: no JVD Heart: IRR Lungs: CTA B/l Abd: soft, NT, ND, bowel sounds normoactive Ext: moves all, no cyanosis, no clubbing, mild edema Neuro: Alert oriented x3 cranial nerves intact Objective Data Vital Signs Vital Signs: Vital Signs - 24 hr 08/05/21 10:47 08/05/21 10:48 08/05/21 12:00 Temperature Pulse Rate 72 Respiratory Rate Blood Pressure Pulse Oximetry Oxygen Delivery Room Air Room Air 08/05/21 12:00 08/05/21 12:00 08/05/21 14:00 Temperature 97.6 F Pulse Rate 87 79 Respiratory Rate 14 Blood Pressure 115/62 Pulse Oximetry 99 Oxygen Delivery Room Air 08/05/21 16:00 08/05/21 16:00 08/05/21 16:00 Temperature 98.7 F Pulse Rate 71 68 Respiratory Rate 20 Blood Pressure
--- NOTE | 2021-08-06 12:25 | P.PNNP_ITS ---
Progress Note: A&P Assessment and Plan (1) Acute kidney injury: Code(s): N17.9 - Acute kidney failure, unspecified Status: Acute Assessment and Plan: * improving * suspect due early sepsis, hypotension, rhabdomyolysis, and infection * evaluation to date: * normal renal ultrasound * urine electroltyes prerenal * CPK elevated - follow trend * suspect may have some underlying CKD given known risk factors * follow repeat labs and UOP (2) Hyponatremia: Code(s): E87.1 - Hypo-osmolality and hyponatremia Status: Acute Assessment and Plan: * improving * several risk factors: * KATHY/renal failure * HCTZ use * narcotic use * pre-renal factors * evaluation to date: * TSH and cortisol okay * urine sodium low/prerenal * no improvement with normal saline IVFs * s/p 3% saline yesterday with improvement in sodium level * goal rate of change in sodium is 4 - 6mmol/L over 24hrs (but not to exceed 8mmol/L) -- this is being achieved * follow repeat sodium levels (3) Rhabdomyolysis: Qualifiers: Rhabdomyolysis type: non-traumatic Qualified Code(s): M62.82 - Rhabdomyolysis Code(s): M62.82 - Rhabdomyolysis Status: Acute Assessment and Plan: * elevated (> 10,000) on admission * in spite of #2, back on normal saline * follow CPK levels - trending down again (4) Sepsis: Qualifiers: Acute renal failure type: unspecified Sepsis acute organ dysfunction status: with acute organ dysfunction Sepsis type: sepsis due to unspecified organism Severe sepsis acute organ dysfunction type: acute renal failure Severe sepsis shock status: without septic shock Qualified Code(s): A41.9 - Sepsis, unspecified organism; R65.20 - Severe sepsis without septic shock; N17.9 - Acute kidney failure, unspecified Code(s): A41.9 - Sepsis, unspecified organism Status: Acute Assessment and Plan: * criteria met with admission tachycardia, tachypnea, elevated WBC, and fever * source not clear * follow culture date * monitor hemodynamics closely * empiric antibiotic therapy (5) Atrial fibrillation: Onset Date: 04/20/17 Code(s): I48.91 - Unspecified atrial fibrillation Status: Chronic Assessment and Plan: * rate controlled strategy * on anticoagulation (6) Diabetes mellitus: Code(s): E11.9 - Type 2 diabetes mellitus without complications Status: Chronic Assessment and Plan: * follow accuchecks * glycemic control Will continue to follow. Subjective Date/time seen: 08/06/21 12:25 No new issues or problems overnight or earlier this AM; sodium levels continue to slowly improve with stabilization of renal function/creatinine as well; no apparent distress noted; CPK trending back down again with IVFs. Exam Narrative: General: WD/WN male in NAD - flat affect Heart: normal S1 and S2; no Lungs: clear to auscultation Abdomen: soft, nontender, nondistended, positive bowel sounds Extremities: no cyanosis or clubbing; no edema Skin: warm and intact Objective Data Vital Signs Vital Signs: Vital Signs Temp Pulse Resp BP Pulse Ox O2 Del Method 08/06/21 12:00 69 08/06/21 12:00 36.8 C 73 18 113/56 L 96 08/06/21 12:00 Room Air 08/06/21 10:00 67 08/06/21 08:00 Room
--- NOTE | 2021-08-06 12:25 | PM.PNNEP ---
Progress Note: A&P Assessment and Plan (1) Acute kidney injury: Code(s): N17.9 - Acute kidney failure, unspecified Status: Acute Assessment and Plan: improving suspect due early sepsis, hypotension, rhabdomyolysis, and infection evaluation to date: normal renal ultrasound urine electroltyes prerenal CPK elevated - follow trend suspect may have some underlying CKD given known risk factors follow repeat labs and UOP (2) Hyponatremia: Code(s): E87.1 - Hypo-osmolality and hyponatremia Status: Acute Assessment and Plan: improving several risk factors: KATHY/renal failure HCTZ use narcotic use pre-renal factors evaluation to date: TSH and cortisol okay urine sodium low/prerenal no improvement with normal saline IVFs s/p 3% saline yesterday with improvement in sodium level goal rate of change in sodium is 4 - 6mmol/L over 24hrs (but not to exceed 8mmol/L) -- this is being achieved follow repeat sodium levels (3) Rhabdomyolysis: Qualifiers: Rhabdomyolysis type: non-traumatic Qualified Code(s): M62.82 - Rhabdomyolysis Code(s): M62.82 - Rhabdomyolysis Status: Acute Assessment and Plan: elevated (> 10,000) on admission in spite of #2, back on normal saline follow CPK levels - trending down again (4) Sepsis: Qualifiers: Acute renal failure type: unspecified Sepsis acute organ dysfunction status: with acute organ dysfunction Sepsis type: sepsis due to unspecified organism Severe sepsis acute organ dysfunction type: acute renal failure Severe sepsis shock status: without septic shock Qualified Code(s): A41.9 - Sepsis, unspecified organism; R65.20 - Severe sepsis without septic shock; N17.9 - Acute kidney failure, unspecified Code(s): A41.9 - Sepsis, unspecified organism Status: Acute Assessment and Plan: criteria met with admission tachycardia, tachypnea, elevated WBC, and fever source not clear follow culture date monitor hemodynamics closely empiric antibiotic therapy (5) Atrial fibrillation: Onset Date: 04/20/17 Code(s): I48.91 - Unspecified atrial fibrillation Status: Chronic Assessment and Plan: rate controlled strategy on anticoagulation (6) Diabetes mellitus: Code(s): E11.9 - Type 2 diabetes mellitus without complications Status: Chronic Assessment and Plan: follow accuchecks glycemic control Will continue to follow. Subjective Date/time seen: 08/06/21 12:25 No new issues or problems overnight or earlier this AM; sodium levels continue to slowly improve with stabilization of renal function/creatinine as well; no apparent distress noted; CPK trending back down again with IVFs. Exam Narrative: General: WD/WN male in NAD - flat affect Heart: normal S1 and S2; no Lungs: clear to auscultation Abdomen: soft, nontender, nondistended, positive bowel sounds Extremities: no cyanosis or clubbing; no edema Skin: warm and intact Objective Data Vital Signs Vital Signs: Vital Signs Temp Pulse Resp BP Pulse Ox O2 Del Method 08/06/21 12:00 69 08/06/21 12:00 36.8 C 73 18 113/56 L 96 08/06/21 12:00 Room Air 08/06/21 10:00 67 08/06/21 08:00 Room Air 08/06/21 08:00 67 08/06/21 08:00 36.9 C 70 20 108/61 95 08/06/21 03:30 75 18 96 Autopap 08/05/21 23:35 83 20 96 Autopap 08/06/21 05:31 68 08/06/21 04:00 37.3 C 69 16 113/60 98 08/06/21 04:00 72 20 96 Autopap 08/06/21 04:00 72 08/06/21 01:44 74 08/06/21 00:00 83 20 96 Autopap 08/06/21 00:00 83 08/06/21 00:00 37.3 C 72 20 107/47 L 96 08/05/21 21:32 72 08/05/21 20:00 69 20 98 Room Air 08/05/21 20:00 69 08/05/21 20:00 36.7 C 81 20 119/56 L 98 Intake/Output Intake/Output: Intake & Output 08/03/21 08/04/21
[2021-08-06 12:47] LABS: Glucose Point of Care 146 mg/dl (65-105)
[2021-08-06 16:33] LABS: Glucose Point of Care 106 mg/dl (65-105)
[2021-08-06] MEDS: WARFARIN (*PBKC) 2 MG TABLET 4 MG PO (17:53)
[2021-08-06 19:59] LABS: Legionella pneumophila Ag Ur Not Detected (Not Detected)
[2021-08-06 21:14] LABS: Glucose Point of Care 79 mg/dl (65-105)
[2021-08-06 21:52] LABS: Pneumococcal Antigen Urine Not Detected (Not Detected)
[2021-08-07] VITALS (18 sets, daily range): BP systolic 114–137; BP diastolic 57–74; PULSE 63–75; RESP 14–22; TEMP 36.1–37.3; O2SAT 91–97
[2021-08-07 05:12] LABS: Basophils Absolute Auto 0.1 K/mm3 (0.0-0.1); Basophils Percent Auto 0.6 % (0.2-1.2); Eosinophils Absolute Auto 0.1 K/mm3 (0-0.3); Eosinophils Percent Auto 0.8 % (0-4.4); Hematocrit 35.9 % (42.0-52.0); Hemoglobin 11.1 g/dL (14.0-18.0); Immature Granulocyte Absolute 0.19 K/mm3 (0.00-0.031); Immature Granulocyte Percent A 2.4 % (0-0.5); Lymphocytes Absolute Auto 1.67 K/mm3 (0.9-3.2); Lymphocytes Percent Auto 20.9 % (18.3-44.2); Mean Corpuscular HGB Conc 30.9 g/dl (32-36); Mean Corpuscular Hemoglobin 24.2 pg (26-34); Mean Corpuscular Volume 78.4 fl (80-100); Mean Platelet Volume 9.6 fl (7.4-10.4); Monocytes Absolute Auto 1.2 K/mm3 (0.1-0.6); Neutrophils Absolute Auto 4.8 K/mm3 (1.3-6.7); Neutrophils Percent Auto 60.3 % (45.5-73.1); Platelet Count Result 226 k/mm3 (150-375); Red Blood Count 4.58 M/mm3 (4.6-6.20); Red Cell Distribution Width 19.8 % (11.5-14.5)
[2021-08-07 05:18] LABS: INR 2.2; Prothrombin Time 23.7 Seconds (11.1-14.7)
[2021-08-07 05:32] LABS: Alanine Aminotransferase 40 U/L (6-50); Albumin Level 3.2 g/dL (3.5-5.1); Alkaline Phosphatase 67 U/L (38-126); Anion Gap 4 mmol/L (8-16); Aspartate Amino Transferase 155 U/L (17-59); Bilirubin,Total 0.3 mg/dL (0.2-1.3); Blood Urea Nitrogen 38 mg/dL (9-20); Calcium 8.1 mg/dL (8.4-10.2); Carbon Dioxide 30 mmol/L (22-30); Chloride 98 mmol/L (98-107); Estimated CRCL calculation 74 ml/min; Estimated Glomerular Filt Rate > 60; Glucose 53 mg/dL (65-110); Sodium 132 mmol/L (137-145)
[2021-08-07] MEDS: GLUCOSE ORAL GEL 15 GM OF GLUCSE IN 37.5 GM TUBE PO ×2 (05:42→06:12)
[2021-08-07 05:44] LABS: Creatine Kinase 4662 U/L (55-170)
[2021-08-07 06:07] LABS: Glucose Point of Care 67 mg/dl (65-105)
[2021-08-07 06:52] LABS: Glucose Point of Care 93 mg/dl (65-105)
[2021-08-07 07:51] LABS: Glucose Point of Care 91 mg/dl (65-105)
--- NOTE | 2021-08-07 07:59 | PM.PNCARD ---
Progress Note: A&P Assessment and Plan (1) Atrial fibrillation: Onset Date: 04/20/17 Code(s): I48.91 - Unspecified atrial fibrillation Status: Chronic Assessment and Plan: Rate is intermittently paced. On Warfarin with therapeutic INR. (2) Pacemaker: Code(s): Z95.0 - Presence of cardiac pacemaker Status: Acute (3) Dyslipidemia: Code(s): E78.5 - Hyperlipidemia, unspecified Status: Acute Assessment and Plan: On Rosuvastatin. (4) Hypertension: Code(s): I10 - Essential (primary) hypertension Status: Acute Assessment and Plan: Stable. (5) CAD (coronary artery disease), autologous vein bypass graft: Code(s): I25.810 - Atherosclerosis of coronary artery bypass graft(s) without angina pectoris Status: Acute Assessment and Plan: Stable. (6) Acute kidney injury: Code(s): N17.9 - Acute kidney failure, unspecified Status: Acute (7) Rhabdomyolysis: Qualifiers: Rhabdomyolysis type: non-traumatic Qualified Code(s): M62.82 - Rhabdomyolysis Code(s): M62.82 - Rhabdomyolysis Status: Acute Assessment and Plan: Improving. IVF but gentle hydration only given diastolic dysfunction. (8) Elevated troponin: Code(s): R77.8 - Other specified abnormalities of plasma proteins Status: Acute Assessment and Plan: Troponin peaked at .107 and trending down. No symptoms to suggest ACS.? Likely due to sepsis from leg wound, rhabdomyolysis. Echo shows EF 55-60%, mild LVH, diastolic dysfunction (E/e' 17), RV dysfunction based on abnormal TAPSE, mod LAE, mild (RINA 1.5 cm2), mild TR, RVSP 45 mmHg. (9) Sepsis: Qualifiers: Sepsis type: sepsis due to unspecified organism Sepsis acute organ dysfunction status: with acute organ dysfunction Severe sepsis acute organ dysfunction type: acute renal failure Acute renal failure type: unspecified Severe sepsis shock status: without septic shock Qualified Code(s): A41.9 - Sepsis, unspecified organism; R65.20 - Severe sepsis without septic shock; N17.9 - Acute kidney failure, unspecified Code(s): A41.9 - Sepsis, unspecified organism Status: Acute Assessment and Plan: On antibitiocs as per hospitalist. (10) Chronic venous stasis dermatitis of both lower extremities: Code(s): I87.2 - Venous insufficiency (chronic) (peripheral) Status: Acute (11) Diastolic dysfunction: Code(s): I51.89 - Other ill-defined heart diseases Status: Acute Subjective Date/time seen: 08/07/21 07:59 No chest pain or sob. Exam Const: General: cooperative, healthy appearing and comfortable Nutritional Appearance: obese Resp: Auscultation: clear to auscultation bilaterally, no crackles, no rales, no rhonchi and no wheezes Cardio: Jugular venous distension: no JVD Rate: regular rate Rhythm: abnormal rhythm Heart sounds: no murmurs Peripheral pulses: dorsalis pedis present GI: GI Palp: No abdominal tenderness and Yes Soft to palpation Neuro: General: oriented to person, oriented to place and oriented to time Extrem: Other: Erythema of both legs left>right Objective Data Vital Signs Vital Signs: Vital Signs - 24 hr 08/06/21 08:00 08/06/21 08:00 08/06/21 08:00 Temperature 98.5 F Pulse Rate 70 67 Respiratory Rate 20 Blood Pressure 108/61 Pulse Oximetry 95 Oxygen Delivery Room Air 08/06/21 10:00 08/06/21 12:00 08/06/21 12:00 Temperature 98.3 F Pulse Rate 67 73 Respiratory Rate 18 Blood Pressure 113/56 L Pulse Oximetry 96 Oxygen Delivery Room Air 08/06/21 12:00 08/06/21 14:00 08/06/21 16:00 Temperature 98.4 F Pulse Rate 69 67 70 Respiratory Rate 18 Blood Pressure 100/62 Pulse Oximetry 98 Oxygen Delivery 08/06/21 12:02 08/06/21 16:00 08/06/21 16:00 Temperature Pulse Rate 63 Respiratory Rate Blood Pressure Pulse Oximetry 98 Oxygen D
[2021-08-07] MEDS: GABAPENTIN 300 MG CAPSULE PO ×3 (08:33→16:47)
[2021-08-07] MEDS: SODIUM CHLORIDE 0.9% IV 1,000 ML 75 ML IV CONT (08:33)
[2021-08-07] MEDS: OXYBUTYNIN CHLORIDE 5 MG TABLET PO ×2 (08:33→16:46)
[2021-08-07] MEDS: ROSUVASTATIN 10 MG TABLET PO (08:33)
--- NOTE | 2021-08-07 11:59 | PCNFU ---
Nutrition Follow-Up Complete: Increased nutrient needs related to wound healing as evidenced by unstageable wound to heel Goal: Meet nutritional needs Pt is progressing towards goal. Continue with current goal at this time. Pt current nutrition is Diabetic Carb Consistent diet and dietary supplements Last recorded weight is 116.5 kg, stable. Bowel Motility: +BM reported 08/05 Labs Reviewed: Hgb 11.1, Hct 35.9, Alb 3.2, Na 132, Ca 8.1, BUN 38, Glu 53, Total Creatine Kinase 4662, AST 155 Meds Noted: Gabapentin, Glucose (for hypoglycemia), Oxybutynin Chloride, Crestor Skin: Bilateral lower leg ulcer - venous stasis, Left heel pressure ulcer - unstageable Additional Notes: Reported intake is 100% x4 and 95%. Pt remains on fluid restriction of 1,200mL. Pt is receiving dietary supplement of Flex BID mixed w/pt choice of liquid to provide an additional 80kcal and 2.5g of protein per packet to aid in wound healing. Agree with diet orders at this time. Will continue to follow. Monitor intake, wt, labs. Follow up in 7 days.
[2021-08-07 12:05] LABS: Glucose Point of Care 130 mg/dl (65-105)
--- NOTE | 2021-08-07 13:44 | P.PNNP_ITS ---
Progress Note: A&P Assessment and Plan (1) Acute kidney injury: Code(s): N17.9 - Acute kidney failure, unspecified Status: Acute Assessment and Plan: * improving * suspect due early sepsis, hypotension, rhabdomyolysis, and infection * evaluation to date: * normal renal ultrasound * urine electroltyes prerenal * CPK elevated - follow trend * suspect may have some underlying CKD given known risk factors * follow repeat labs and UOP (2) Hyponatremia: Code(s): E87.1 - Hypo-osmolality and hyponatremia Status: Acute Assessment and Plan: * improving * several risk factors: * KATHY/renal failure * HCTZ use * narcotic use * pre-renal factors * evaluation to date: * TSH and cortisol okay * urine sodium low/prerenal * no improvement with normal saline IVFs * s/p 3% saline (on 08/05/21) with improvement in sodium level * goal rate of change in sodium is 4 - 6mmol/L over 24hrs (but not to exceed 8mmol/L) -- this is being achieved * follow repeat sodium levels (3) Rhabdomyolysis: Qualifiers: Rhabdomyolysis type: non-traumatic Qualified Code(s): M62.82 - Rhabdomyolysis Code(s): M62.82 - Rhabdomyolysis Status: Acute Assessment and Plan: * elevated (> 10,000) on admission * in spite of #2, back on normal saline * follow CPK levels - trending down again (4) Sepsis: Qualifiers: Sepsis type: sepsis due to unspecified organism Sepsis acute organ dysfunction status: with acute organ dysfunction Severe sepsis acute organ dysfunction type: acute renal failure Acute renal failure type: unspecified Severe sepsis shock status: without septic shock Qualified Code(s): A41.9 - Sep sis, unspecified organism; R65.20 - Severe sepsis without septic shock; N17.9 - Acute kidney failure, unspecified Code(s): A41.9 - Sepsis, unspecified organism Status: Acute Assessment and Plan: * criteria met with admission tachycardia, tachypnea, elevated WBC, and fever * source not clear * follow culture date * monitor hemodynamics closely * empiric antibiotic therapy (5) Atrial fibrillation: Onset Date: 04/20/17 Code(s): I48.91 - Unspecified atrial fibrillation Status: Chronic Assessment and Plan: * rate controlled strategy * on anticoagulation (6) Diabetes mellitus: Code(s): E11.9 - Type 2 diabetes mellitus without complications Status: Chronic Assessment and Plan: * follow accuchecks * glycemic control Will continue to follow. Subjective Date/time seen: 08/07/21 13:44 Overall, seems to be slowly improving with current therapy; CPK down trending and sodium improving with gentle IVF resuscitation; no apparent distress noted; no issues/evetns overnight or earlier this morning. Exam Narrative: General: WD/WN male in NAD - flat affect Heart: normal S1 and S2; no Lungs: clear to auscultation Abdomen: soft, nontender, nondistended, positive bowel sounds Extremities: no cyanosis or clubbing; no edema Skin: no rash Objective Data Vital Signs Vital Signs: Vital Signs Temp Pulse Resp BP Pulse Ox O2 Del Method 08/07/21 12:11 37.3 C 75 20 132/74 96 08/07/21 10:00 73 08/07/21 08:00 Room Air 08/07/21 08:00 63 08/07/21 07:56 37.2 C 73 21 H 115/57 L 9
--- NOTE | 2021-08-07 13:44 | PM.PNNEP ---
Progress Note: A&P Assessment and Plan (1) Acute kidney injury: Code(s): N17.9 - Acute kidney failure, unspecified Status: Acute Assessment and Plan: improving suspect due early sepsis, hypotension, rhabdomyolysis, and infection evaluation to date: normal renal ultrasound urine electroltyes prerenal CPK elevated - follow trend suspect may have some underlying CKD given known risk factors follow repeat labs and UOP (2) Hyponatremia: Code(s): E87.1 - Hypo-osmolality and hyponatremia Status: Acute Assessment and Plan: improving several risk factors: KATHY/renal failure HCTZ use narcotic use pre-renal factors evaluation to date: TSH and cortisol okay urine sodium low/prerenal no improvement with normal saline IVFs s/p 3% saline (on 08/05/21) with improvement in sodium level goal rate of change in sodium is 4 - 6mmol/L over 24hrs (but not to exceed 8mmol/L) -- this is being achieved follow repeat sodium levels (3) Rhabdomyolysis: Qualifiers: Rhabdomyolysis type: non-traumatic Qualified Code(s): M62.82 - Rhabdomyolysis Code(s): M62.82 - Rhabdomyolysis Status: Acute Assessment and Plan: elevated (> 10,000) on admission in spite of #2, back on normal saline follow CPK levels - trending down again (4) Sepsis: Qualifiers: Sepsis type: sepsis due to unspecified organism Sepsis acute organ dysfunction status: with acute organ dysfunction Severe sepsis acute organ dysfunction type: acute renal failure Acute renal failure type: unspecified Severe sepsis shock status: without septic shock Qualified Code(s): A41.9 - Sepsis, unspecified organism; R65.20 - Severe sepsis without septic shock; N17.9 - Acute kidney failure, unspecified Code(s): A41.9 - Sepsis, unspecified organism Status: Acute Assessment and Plan: criteria met with admission tachycardia, tachypnea, elevated WBC, and fever source not clear follow culture date monitor hemodynamics closely empiric antibiotic therapy (5) Atrial fibrillation: Onset Date: 04/20/17 Code(s): I48.91 - Unspecified atrial fibrillation Status: Chronic Assessment and Plan: rate controlled strategy on anticoagulation (6) Diabetes mellitus: Code(s): E11.9 - Type 2 diabetes mellitus without complications Status: Chronic Assessment and Plan: follow accuchecks glycemic control Will continue to follow. Subjective Date/time seen: 08/07/21 13:44 Overall, seems to be slowly improving with current therapy; CPK down trending and sodium improving with gentle IVF resuscitation; no apparent distress noted; no issues/evetns overnight or earlier this morning. Exam Narrative: General: WD/WN male in NAD - flat affect Heart: normal S1 and S2; no Lungs: clear to auscultation Abdomen: soft, nontender, nondistended, positive bowel sounds Extremities: no cyanosis or clubbing; no edema Skin: no rash Objective Data Vital Signs Vital Signs: Vital Signs Temp Pulse Resp BP Pulse Ox O2 Del Method 08/07/21 12:11 37.3 C 75 20 132/74 96 08/07/21 10:00 73 08/07/21 08:00 Room Air 08/07/21 08:00 63 08/07/21 07:56 37.2 C 73 21 H 115/57 L 91 08/07/21 06:00 71 08/07/21 04:00 95 Room Air 08/07/21 04:00 71 08/07/21 04:00 37.3 C 66 20 114/61 95 08/07/21 02:51 14 97 Autopap 08/07/21 02:00 64 08/07/21 00:00 97 Room Air 08/07/21 00:00 70 08/06/21 23:59 37.2 C 68 16 97/50 L 97 08/06/21 23:07 16 96 Autopap 08/06/21 22:00 65 08/06/21 20:00 97 Room Air 08/06/21 20:00 71 08/06/21 21:53 18 97 Autopap 08/06/21 20:00 36.7 C 69 20 120/57 L 97 08/06/21 20:15 97 Room Air 08/06/21 18:00 69 Intake/Output Intake/Output: Intake & Output 08/04/21 08/05/2108/06
--- NOTE | 2021-08-07 13:56 | PM.IMPN ---
Progress Note: A&P Assessment and Plan (1) Diabetes mellitus: Code(s): E11.9 - Type 2 diabetes mellitus without complications Status: Chronic (2) Diastolic dysfunction: Code(s): I51.89 - Other ill-defined heart diseases Status: Acute (3) Atrial fibrillation: Onset Date: 04/20/17 Code(s): I48.91 - Unspecified atrial fibrillation Status: Chronic (4) Acute kidney injury: Code(s): N17.9 - Acute kidney failure, unspecified Status: Acute (5) Chronic venous stasis dermatitis of both lower extremities: Code(s): I87.2 - Venous insufficiency (chronic) (peripheral) Status: Acute (6) Sepsis: Qualifiers: Sepsis type: sepsis due to unspecified organism Sepsis acute organ dysfunction status: with acute organ dysfunction Severe sepsis acute organ dysfunction type: acute renal failure Acute renal failure type: unspecified Severe sepsis shock status: without septic shock Qualified Code(s): A41.9 - Sepsis, unspecified organism; R65.20 - Severe sepsis without septic shock; N17.9 - Acute kidney failure, unspecified Code(s): A41.9 - Sepsis, unspecified organism Status: Acute (7) Anemia: Code(s): D64.9 - Anemia, unspecified Status: Acute (8) Hyponatremia: Code(s): E87.1 - Hypo-osmolality and hyponatremia Status: Acute (9) Elevated troponin: Code(s): R77.8 - Other specified abnormalities of plasma proteins Status: Acute (10) Rhabdomyolysis: Qualifiers: Rhabdomyolysis type: non-traumatic Qualified Code(s): M62.82 - Rhabdomyolysis Code(s): M62.82 - Rhabdomyolysis Status: Acute (11) Hypertension: Code(s): I10 - Essential (primary) hypertension Status: Acute (12) Dyslipidemia: Code(s): E78.5 - Hyperlipidemia, unspecified Status: Acute (13) Pacemaker: Code(s): Z95.0 - Presence of cardiac pacemaker Status: Acute (14) CAD (coronary artery disease), autologous vein bypass graft: Code(s): I25.810 - Atherosclerosis of coronary artery bypass graft(s) without angina pectoris Status: Acute Plan 08/05/21 CPK significantly elevated today case reviewed with Nephrology patient placed back on normal saline recommendations appreciated cont abx for PNA atypical pNA labs still pending hyponatremia improving 118 08/04/21-> 122 08/05/21, nephro following INR 2.1 today Blood glucose stable at goal 08/06/21 UA CXR and blood cultures without source of infection highest documents temp 100.1 one episode in ER no elevated temps since admission will monitor off of abx, unlikely pt is infected severe dehydration w fall and prolonged time down w rhabdo and severe hyponatremia seem to be appropriate POA dx nephro following for hyponatremia CPK now trending down again cont current care possible dc in 72 hrs if rhabdo resolved and pt remains afeberile off abx 08/07/21 pt doing ok dulcolax for constipation does not appear to have resp infection clinically or on imaging but Mycoplasma + will tx w Zpack monitor warfarin while on this medication CPK downtrending hyponatremia improving PT/OT mobilze pt Subjective Date/time seen: 08/07/21 13:56 pt doing ok no pain no cough no SOB but does report abd distension and constipation Exam Narrative: GEN: NAD, AAOx3, cooperative, obese HEENT: NCAT, MMM, EOMI Neck: no JVD Heart: IRR Lungs: CTA B/l Abd: soft, NT, distended, bowel sounds normoactive Ext: moves all, no cyanosis, no clubbing, + edema Neuro: Alert oriented x3 cranial nerves intact Objective Data Vital Signs Vital Signs: Vital Signs - 24 hr 08/06/21 14:00 08/06/21 16:00 08/06/21 16:00 Temperature 98.4 F Pulse Rate 67 70 63 Respiratory Rate 18 Blood Pressure 100/62 Pulse Oximetry 98 Oxygen Delivery 08/06/21 16:00 08/06/21 18:00 08/06/21 20:15 Temperature Pulse Rate 69 Respiratory Rate Blood Pr
[2021-08-07] MEDS: BISACODYL 10 MG SUPPOSITORY RECTAL (16:46)
[2021-08-07] MEDS: AZITHROMYCIN 250 MG TABLET 500 MG PO (16:46)
[2021-08-07] MEDS: WARFARIN (*PBKC) 5 MG TABLET PO (16:47)
[2021-08-07 17:17] LABS: Glucose Point of Care 162 mg/dl (65-105)
[2021-08-07 20:23] LABS: Glucose Point of Care 200 mg/dl (65-105)
[2021-08-07 22:20] LABS: Mycoplasma IgM Antibody Titer 74 U/mL (<770)
[2021-08-08] VITALS (18 sets, daily range): BP systolic 106–140; BP diastolic 53–68; PULSE 65–87; RESP 16–25; TEMP 36.5–37.7; O2SAT 90–97
[2021-08-08] MEDS: SODIUM CHLORIDE 0.9% IV 1,000 ML 75 ML IV CONT ×2 (00:03→12:48)
--- NOTE | 2021-08-08 03:24 | PCRCNOTE ---
Patient wore AutoPAP for approximately 5 hours from Tuesday night through early Tuesday morning. Patient requested that it be removed due to not being able to sleep with it on. Placed patient back on 4lpm nasal cannula. SPO2 96%
[2021-08-08 04:57] LABS: Basophils Absolute Auto 0.1 K/mm3 (0.0-0.1); Basophils Percent Auto 0.9 % (0.2-1.2); Eosinophils Absolute Auto 0.1 K/mm3 (0-0.3); Eosinophils Percent Auto 0.8 % (0-4.4); Hematocrit 38.1 % (42.0-52.0); Hemoglobin 11.7 g/dL (14.0-18.0); Immature Granulocyte Absolute 0.34 K/mm3 (0.00-0.031); Immature Granulocyte Percent A 3.8 % (0-0.5); Lymphocytes Absolute Auto 1.47 K/mm3 (0.9-3.2); Lymphocytes Percent Auto 16.6 % (18.3-44.2); Mean Corpuscular HGB Conc 30.7 g/dl (32-36); Mean Corpuscular Hemoglobin 24.3 pg (26-34); Mean Platelet Volume 9.5 fl (7.4-10.4); Monocytes Percent Auto 10.7 % (2.6-8.5); Neutrophils Absolute Auto 5.9 K/mm3 (1.3-6.7); Neutrophils Percent Auto 67.2 % (45.5-73.1); Nucleated Red Blood Cells Perc 0.2 % (0.0-0.2); Platelet Count Result 257 k/mm3 (150-375); Red Blood Count 4.82 M/mm3 (4.6-6.20); Red Cell Distribution Width 19.7 % (11.5-14.5); White Blood Count 8.9 K/mm3 (4.5-10.0)
[2021-08-08 05:00] LABS: INR 2.3; Prothrombin Time 24.5 Seconds (11.1-14.7)
[2021-08-08 05:14] LABS: Alanine Aminotransferase 37 U/L (6-50); Albumin Level 3.2 g/dL (3.5-5.1); Alkaline Phosphatase 77 U/L (38-126); Anion Gap 3 mmol/L (8-16); Aspartate Amino Transferase 101 U/L (17-59); Bilirubin,Total 0.4 mg/dL (0.2-1.3); Blood Urea Nitrogen 25 mg/dL (9-20); Carbon Dioxide 29 mmol/L (22-30); Chloride 100 mmol/L (98-107); Estimated CRCL calculation 92 ml/min; Estimated Glomerular Filt Rate > 60; Glucose 181 mg/dL (65-110); Potassium 4.7 mmol/L (3.4-5.0); Sodium 132 mmol/L (137-145)
[2021-08-08 05:36] LABS: Creatine Kinase 2084 U/L (55-170)
[2021-08-08 06:26] LABS: Osmolality, Urine 377 mOsm/kg (50-1200)
--- NOTE | 2021-08-08 07:53 | PM.PNCARD ---
Progress Note: A&P Assessment and Plan (1) Atrial fibrillation: Onset Date: 04/20/17 Code(s): I48.91 - Unspecified atrial fibrillation Status: Chronic Assessment and Plan: Rate is intermittently paced. On Warfarin with therapeutic INR. (2) Pacemaker: Code(s): Z95.0 - Presence of cardiac pacemaker Status: Acute (3) Dyslipidemia: Code(s): E78.5 - Hyperlipidemia, unspecified Status: Acute Assessment and Plan: On Rosuvastatin. (4) Hypertension: Code(s): I10 - Essential (primary) hypertension Status: Acute Assessment and Plan: Stable. (5) CAD (coronary artery disease), autologous vein bypass graft: Code(s): I25.810 - Atherosclerosis of coronary artery bypass graft(s) without angina pectoris Status: Acute Assessment and Plan: Stable. (6) Acute kidney injury: Code(s): N17.9 - Acute kidney failure, unspecified Status: Acute (7) Rhabdomyolysis: Qualifiers: Rhabdomyolysis type: non-traumatic Qualified Code(s): M62.82 - Rhabdomyolysis Code(s): M62.82 - Rhabdomyolysis Status: Acute Assessment and Plan: Improving. IVF but gentle hydration only given diastolic dysfunction. (8) Elevated troponin: Code(s): R77.8 - Other specified abnormalities of plasma proteins Status: Acute Assessment and Plan: Troponin peaked at .107 and trending down. No symptoms to suggest ACS.? Likely due to sepsis from leg wound, rhabdomyolysis. Echo shows EF 55-60%, mild LVH, diastolic dysfunction (E/e' 17), RV dysfunction based on abnormal TAPSE, mod LAE, mild (RINA 1.5 cm2), mild TR, RVSP 45 mmHg. (9) Sepsis: Qualifiers: Sepsis type: sepsis due to unspecified organism Sepsis acute organ dysfunction status: with acute organ dysfunction Severe sepsis acute organ dysfunction type: acute renal failure Acute renal failure type: unspecified Severe sepsis shock status: without septic shock Qualified Code(s): A41.9 - Sepsis, unspecified organism; R65.20 - Severe sepsis without septic shock; N17.9 - Acute kidney failure, unspecified Code(s): A41.9 - Sepsis, unspecified organism Status: Acute Assessment and Plan: On antibitiocs as per hospitalist. (10) Chronic venous stasis dermatitis of both lower extremities: Code(s): I87.2 - Venous insufficiency (chronic) (peripheral) Status: Acute (11) Diastolic dysfunction: Code(s): I51.89 - Other ill-defined heart diseases Status: Acute Subjective Date/time seen: 08/08/21 07:53 No chest pain or sob. Exam Const: General: cooperative, healthy appearing and comfortable Nutritional Appearance: obese Resp: Auscultation: clear to auscultation bilaterally, no crackles, no rales, no rhonchi and no wheezes Cardio: Jugular venous distension: no JVD Rate: regular rate Rhythm: abnormal rhythm Heart sounds: no murmurs Peripheral pulses: dorsalis pedis present GI: GI Palp: No abdominal tenderness and Yes Soft to palpation Neuro: General: oriented to person, oriented to place and oriented to time Extrem: Other: Erythema of both legs left>right Objective Data Vital Signs Vital Signs: Vital Signs - 24 hr 08/07/21 07:56 08/07/21 08:00 08/07/21 08:00 Temperature 98.9 F Pulse Rate 73 63 Respiratory Rate 21 H Blood Pressure 115/57 L Pulse Oximetry 91 Oxygen Delivery Room Air 08/07/21 10:00 08/07/21 12:11 08/07/21 12:00 Temperature 99.1 F Pulse Rate 73 75 Respiratory Rate 20 Blood Pressure 132/74 Pulse Oximetry 96 Oxygen Delivery Room Air 08/07/21 12:00 08/07/21 16:00 08/07/21 14:00 Temperature Pulse Rate 75 70 Respiratory Rate Blood Pressure Pulse Oximetry Oxygen Delivery Room Air 08/07/21 16:00 08/07/21 17:17 08/07/21 18:00 Temperature 98.5 F Pulse Rate 70 72 69 Respiratory Rate 22 H Blood Pressure 126/60 Pulse Oximetry 9
[2021-08-08 07:54] LABS: Glucose Point of Care 191 mg/dl (65-105)
[2021-08-08] MEDS: AZITHROMYCIN 250 MG TABLET PO (08:23)
[2021-08-08] MEDS: GABAPENTIN 300 MG CAPSULE PO ×3 (08:23→16:49)
[2021-08-08] MEDS: OXYBUTYNIN CHLORIDE 5 MG TABLET PO ×2 (08:24→16:49)
[2021-08-08] MEDS: ROSUVASTATIN 10 MG TABLET PO (08:24)
[2021-08-08] MEDS: INSULIN HUMAN ISOPHAN/REGULAR 70/30 (*BKC) 100 UNITS/ML 40 UNITS SUB-Q ×2 (08:24→16:49)
--- NOTE | 2021-08-08 10:48 | PM.IMPN ---
Progress Note: A&P Assessment and Plan (1) Diabetes mellitus: Code(s): E11.9 - Type 2 diabetes mellitus without complications Status: Chronic (2) Diastolic dysfunction: Code(s): I51.89 - Other ill-defined heart diseases Status: Acute (3) Atrial fibrillation: Onset Date: 04/20/17 Code(s): I48.91 - Unspecified atrial fibrillation Status: Chronic (4) Acute kidney injury: Code(s): N17.9 - Acute kidney failure, unspecified Status: Acute (5) Chronic venous stasis dermatitis of both lower extremities: Code(s): I87.2 - Venous insufficiency (chronic) (peripheral) Status: Acute (6) Sepsis: Qualifiers: Sepsis type: sepsis due to unspecified organism Sepsis acute organ dysfunction status: with acute organ dysfunction Severe sepsis acute organ dysfunction type: acute renal failure Acute renal failure type: unspecified Severe sepsis shock status: without septic shock Qualified Code(s): A41.9 - Sepsis, unspecified organism; R65.20 - Severe sepsis without septic shock; N17.9 - Acute kidney failure, unspecified Code(s): A41.9 - Sepsis, unspecified organism Status: Acute (7) Anemia: Code(s): D64.9 - Anemia, unspecified Status: Acute (8) Hyponatremia: Code(s): E87.1 - Hypo-osmolality and hyponatremia Status: Acute (9) Elevated troponin: Code(s): R77.8 - Other specified abnormalities of plasma proteins Status: Acute (10) Rhabdomyolysis: Qualifiers: Rhabdomyolysis type: non-traumatic Qualified Code(s): M62.82 - Rhabdomyolysis Code(s): M62.82 - Rhabdomyolysis Status: Acute (11) Hypertension: Code(s): I10 - Essential (primary) hypertension Status: Acute (12) Dyslipidemia: Code(s): E78.5 - Hyperlipidemia, unspecified Status: Acute (13) Pacemaker: Code(s): Z95.0 - Presence of cardiac pacemaker Status: Acute (14) CAD (coronary artery disease), autologous vein bypass graft: Code(s): I25.810 - Atherosclerosis of coronary artery bypass graft(s) without angina pectoris Status: Acute Plan 08/05/21 CPK significantly elevated today case reviewed with Nephrology patient placed back on normal saline recommendations appreciated cont abx for PNA atypical pNA labs still pending hyponatremia improving 118 08/04/21-> 122 08/05/21, nephro following INR 2.1 today Blood glucose stable at goal 08/06/21 UA CXR and blood cultures without source of infection highest documents temp 100.1 one episode in ER no elevated temps since admission will monitor off of abx, unlikely pt is infected severe dehydration w fall and prolonged time down w rhabdo and severe hyponatremia seem to be appropriate POA dx nephro following for hyponatremia CPK now trending down again cont current care possible dc in 72 hrs if rhabdo resolved and pt remains afebrile off abx 08/07/21 pt doing ok dulcolax for constipation does not appear to have resp infection clinically or on imaging but Mycoplasma + will tx w Zpack monitor warfarin while on this medication CPK downtrending hyponatremia improving PT/OT mobilize pt 08/08/21 on Azithro INR 2.4 goal 2.5-3.5 on IVFs for Rhabdo downtrending now ~2000 Na remains stable cont current care cardio and nephro following transfer to med surg w tele Subjective Date/time seen: 08/08/21 10:48 Exam Narrative: GEN: NAD, AAOx3, cooperative, obese HEENT: NCAT, MMM, EOMI Neck: no JVD Heart: IRR Lungs: CTA B/l Abd: soft, NT, distended, bowel sounds normoactive Ext: moves all, no cyanosis, no clubbing, + edema Neuro: Alert oriented x3 cranial nerves intact Objective Data Vital Signs Vital Signs: Vital Signs - 24 hr 08/07/21 12:11 08/07/21 12:00 08/07/21 12:00 Temperature 99.1 F Pulse Rate 75 75 Respiratory Rate 20 Blood Pressure 132/74 Pulse Oximetry 96 Oxygen Delivery Room Air 0
[2021-08-08 11:48] LABS: Kappa\\Lambda Light Chains 1.11 (0.26-1.65); Lambda Light Chain 27.6 mg/L (5.7-26.3)
--- NOTE | 2021-08-08 11:48 | PC.NURSE ---
Orders to med/surg tele- report given to Majo PINON- pt moved via bed accompanied by staff to room 252- belongings sent with pt - attempted to notified son - no answer
[2021-08-08 11:51] LABS: Glucose Point of Care 145 mg/dl (65-105)
--- NOTE | 2021-08-08 12:00 | PC.NURSE ---
This patient, Diego Hernandez Alma ., was received from IMU on 08/08/21 at 1201. Report received from Ana. Patient/family oriented to unit policies and routines
--- NOTE | 2021-08-08 12:19 | P.PNNP_ITS ---
Progress Note: A&P Assessment and Plan (1) Acute kidney injury: Code(s): N17.9 - Acute kidney failure, unspecified Status: Acute Assessment and Plan: * resolved * suspect due early sepsis, hypotension, rhabdomyolysis, and infection * evaluation to date: * normal renal ultrasound * urine electroltyes prerenal * CPK elevated - follow trend * suspect may have some underlying CKD given known risk factors * follow repeat labs and UOP (2) Hyponatremia: Code(s): E87.1 - Hypo-osmolality and hyponatremia Status: Acute Assessment and Plan: * improving * several risk factors: * KATHY/renal failure * HCTZ use * narcotic use * pre-renal factors * evaluation to date: * TSH and cortisol okay * urine sodium low/prerenal * no improvement with normal saline IVFs * s/p 3% saline (on 08/05/21) with improvement in sodium level * goal rate of change in sodium is 4 - 6mmol/L over 24hrs (but not to exceed 8mmol/L) -- this has being achieved * follow repeat sodium levels (3) Rhabdomyolysis: Qualifiers: Rhabdomyolysis type: non-traumatic Qualified Code(s): M62.82 - Rhabdomyolysis Code(s): M62.82 - Rhabdomyolysis Status: Acute Assessment and Plan: * elevated (> 10,000) on admission * in spite of #2, back on normal saline * follow CPK levels - trending down again - probably okay to stop fluid tomorrow (4) Sepsis: Qualifiers: Sepsis type: sepsis due to unspecified organism Sepsis acute organ dysfunction status: with acute organ dysfunction Severe sepsis acute organ dysfunction type: acute renal failure Acute renal failure type: unspecified Severe sepsis shock status: without septic shock Qualified Code(s): A41.9 - Sepsis, unspecified organism; R65.20 - Severe sepsis without septic shock; N17.9 - Acute kidney failure, unspecified Code(s): A41.9 - Sepsis, unspecified organism Status: Acute Assessment and Plan: * criteria met with admission tachycardia, tachypnea, elevated WBC, and fever * source not clear * follow culture date * monitor hemodynamics closely * empiric antibiotic therapy (5) Atrial fibrillation: Onset Date: 04/20/17 Code(s): I48.91 - Unspecified atrial fibrillation Status: Chronic Assessment and Plan: * rate controlled strategy * on anticoagulation (6) Diabetes mellitus: Code(s): E11.9 - Type 2 diabetes mellitus without complications Status: Chronic Assessment and Plan: * follow accuchecks * glycemic control Not much else to add -- will continue to follow from a distance. Subjective Date/time seen: 08/08/21 12:19 Continues to do reasonably well at the time of my visit; renal function continu es to improve as does sodium level with current intervention; no apparent distress voiced; no apparent distress; no events overnight or earlier this AM. Exam Narrative: General: WD/WN male in NAD - flat affect Heart: normal S1 and S2; no Lungs: clear to auscultation Abdomen: soft, nontender, nondistended, positive bowel sounds Extremities: no cyanosis or clubbing; no edema Skin: warm and dry Objective Data Vital Signs Vital Signs: Vital Signs Temp Pulse Resp BP Pulse Ox O2 Del Method O2 Flow Rate 08/08/21 12:00 74 24 H 94 Room Air 08/08/21 12:00 74 08/08/21
--- NOTE | 2021-08-08 12:19 | PM.PNNEP ---
Progress Note: A&P Assessment and Plan (1) Acute kidney injury: Code(s): N17.9 - Acute kidney failure, unspecified Status: Acute Assessment and Plan: resolved suspect due early sepsis, hypotension, rhabdomyolysis, and infection evaluation to date: normal renal ultrasound urine electroltyes prerenal CPK elevated - follow trend suspect may have some underlying CKD given known risk factors follow repeat labs and UOP (2) Hyponatremia: Code(s): E87.1 - Hypo-osmolality and hyponatremia Status: Acute Assessment and Plan: improving several risk factors: KATHY/renal failure HCTZ use narcotic use pre-renal factors evaluation to date: TSH and cortisol okay urine sodium low/prerenal no improvement with normal saline IVFs s/p 3% saline (on 08/05/21) with improvement in sodium level goal rate of change in sodium is 4 - 6mmol/L over 24hrs (but not to exceed 8mmol/L) -- this has being achieved follow repeat sodium levels (3) Rhabdomyolysis: Qualifiers: Rhabdomyolysis type: non-traumatic Qualified Code(s): M62.82 - Rhabdomyolysis Code(s): M62.82 - Rhabdomyolysis Status: Acute Assessment and Plan: elevated (> 10,000) on admission in spite of #2, back on normal saline follow CPK levels - trending down again - probably okay to stop fluid tomorrow (4) Sepsis: Qualifiers: Sepsis type: sepsis due to unspecified organism Sepsis acute organ dysfunction status: with acute organ dysfunction Severe sepsis acute organ dysfunction type: acute renal failure Acute renal failure type: unspecified Severe sepsis shock status: without septic shock Qualified Code(s): A41.9 - Sepsis, unspecified organism; R65.20 - Severe sepsis without septic shock; N17.9 - Acute kidney failure, unspecified Code(s): A41.9 - Sepsis, unspecified organism Status: Acute Assessment and Plan: criteria met with admission tachycardia, tachypnea, elevated WBC, and fever source not clear follow culture date monitor hemodynamics closely empiric antibiotic therapy (5) Atrial fibrillation: Onset Date: 04/20/17 Code(s): I48.91 - Unspecified atrial fibrillation Status: Chronic Assessment and Plan: rate controlled strategy on anticoagulation (6) Diabetes mellitus: Code(s): E11.9 - Type 2 diabetes mellitus without complications Status: Chronic Assessment and Plan: follow accuchecks glycemic control Not much else to add -- will continue to follow from a distance. Subjective Date/time seen: 08/08/21 12:19 Continues to do reasonably well at the time of my visit; renal function continues to improve as does sodium level with current intervention; no apparent distress voiced; no apparent distress; no events overnight or earlier this AM. Exam Narrative: General: WD/WN male in NAD - flat affect Heart: normal S1 and S2; no Lungs: clear to auscultation Abdomen: soft, nontender, nondistended, positive bowel sounds Extremities: no cyanosis or clubbing; no edema Skin: warm and dry Objective Data Vital Signs Vital Signs: Vital Signs Temp Pulse Resp BP Pulse Ox O2 Del Method O2 Flow Rate 08/08/21 12:00 74 24 H 94 Room Air 08/08/21 12:00 74 08/08/21 08:00 71 08/08/21 08:02 37.6 C H 78 24 H 140/60 94 08/08/21 06:00 83 08/08/21 04:00 94 Room Air 08/08/21 04:00 78 08/08/21 03:55 36.5 C 75 22 H 106/61 94 08/08/21 02:00 71 08/08/21 00:00 77 08/08/21 00:00 96 Room Air 08/07/21 23:40 36.1 C L 67 22 H 135/67 96 08/07/21 21:20 97 08/07/21 21:20 22 H 97 Autopap 08/07/21 22:00 67 08/07/21 20:00 93 Room Air 08/07/21 20:00 68 08/07/21 20:00 36.4 C 71 20 137/64 93 08/07/21 18:00 69 08/07/21 17:17 36.9 C 72 22 H 126/60 94 06/0
[2021-08-08 16:13] LABS: Glucose Point of Care 119 mg/dl (65-105)
[2021-08-08] MEDS: WARFARIN (*PBKC) 2 MG TABLET 4 MG PO (16:49)
[2021-08-08] MEDS: ACETAMINOPHEN 325 MG TABLET 650 MG PO (20:03)
[2021-08-08 21:14] LABS: Glucose Point of Care 161 mg/dl (65-105)
[2021-08-09] VITALS (16 sets, daily range): BP systolic 109–136; BP diastolic 53–72; PULSE 63–79; RESP 16–22; TEMP 36.3–37.7; O2SAT 91–100
[2021-08-09] MEDS: SODIUM CHLORIDE 0.9% IV 1,000 ML 75 ML IV CONT (02:58)
[2021-08-09] MEDS: ACETAMINOPHEN 325 MG TABLET 650 MG PO (02:59)
[2021-08-09 05:58] LABS: Basophils Absolute Auto 0.1 K/mm3 (0.0-0.1); Basophils Percent Auto 0.7 % (0.2-1.2); Eosinophils Absolute Auto 0.1 K/mm3 (0-0.3); Hematocrit 35.7 % (42.0-52.0); Hemoglobin 10.7 g/dL (14.0-18.0); Immature Granulocyte Absolute 0.46 K/mm3 (0.00-0.031); Immature Granulocyte Percent A 4.8 % (0-0.5); Lymphocytes Absolute Auto 1.96 K/mm3 (0.9-3.2); Lymphocytes Percent Auto 20.3 % (18.3-44.2); Mean Corpuscular Hemoglobin 24.4 pg (26-34); Mean Corpuscular Volume 81.5 fl (80-100); Mean Platelet Volume 9.4 fl (7.4-10.4); Monocytes Absolute Auto 1.1 K/mm3 (0.1-0.6); Monocytes Percent Auto 11.2 % (2.6-8.5); Nucleated Red Blood Cells Perc 0.2 % (0.0-0.2); Platelet Count Result 257 k/mm3 (150-375); Red Blood Count 4.38 M/mm3 (4.6-6.20); White Blood Count 9.7 K/mm3 (4.5-10.0)
[2021-08-09 06:03] LABS: INR 2.4; Prothrombin Time 25.5 Seconds (11.1-14.7)
[2021-08-09 06:05] LABS: Alanine Aminotransferase 32 U/L (6-50); Albumin Level 3.3 g/dL (3.5-5.1); Alkaline Phosphatase 68 U/L (38-126); Anion Gap 4 mmol/L (8-16); Aspartate Amino Transferase 64 U/L (17-59); Bilirubin,Total 0.5 mg/dL (0.2-1.3); Blood Urea Nitrogen 20 mg/dL (9-20); Calcium 7.8 mg/dL (8.4-10.2); Carbon Dioxide 29 mmol/L (22-30); Chloride 101 mmol/L (98-107); Creatine Kinase 1002 U/L (55-170); Estimated CRCL calculation 92 ml/min; Estimated Glomerular Filt Rate > 60; Glucose 131 mg/dL (65-110); Potassium 4.6 mmol/L (3.4-5.0); Sodium 134 mmol/L (137-145)
[2021-08-09 07:52] LABS: Glucose Point of Care 142 mg/dl (65-105)
--- NOTE | 2021-08-09 07:55 | PM.PNCARD ---
Progress Note: A&P Assessment and Plan (1) Atrial fibrillation: Onset Date: 04/20/17 Code(s): I48.91 - Unspecified atrial fibrillation Status: Chronic Assessment and Plan: Rate is intermittently paced. On Warfarin with therapeutic INR. Goal INR 2-3. (2) Pacemaker: Code(s): Z95.0 - Presence of cardiac pacemaker Status: Acute (3) Dyslipidemia: Code(s): E78.5 - Hyperlipidemia, unspecified Status: Acute Assessment and Plan: On Rosuvastatin. (4) Hypertension: Code(s): I10 - Essential (primary) hypertension Status: Acute Assessment and Plan: Stable off Lisinopril and HCTZ. (5) CAD (coronary artery disease), autologous vein bypass graft: Code(s): I25.810 - Atherosclerosis of coronary artery bypass graft(s) without angina pectoris Status: Acute Assessment and Plan: Stable. (6) Acute kidney injury: Code(s): N17.9 - Acute kidney failure, unspecified Status: Acute (7) Rhabdomyolysis: Qualifiers: Rhabdomyolysis type: non-traumatic Qualified Code(s): M62.82 - Rhabdomyolysis Code(s): M62.82 - Rhabdomyolysis Status: Acute Assessment and Plan: Improving. IVF but gentle hydration only given diastolic dysfunction. (8) Elevated troponin: Code(s): R77.8 - Other specified abnormalities of plasma proteins Status: Acute Assessment and Plan: Troponin peaked at .107 and trending down. No symptoms to suggest ACS.? Likely due to sepsis from leg wound, rhabdomyolysis. Echo shows EF 55-60%, mild LVH, diastolic dysfunction (E/e' 17), RV dysfunction based on abnormal TAPSE, mod LAE, mild (RINA 1.5 cm2), mild TR, RVSP 45 mmHg. Will sign off. Please call with any questions. (9) Sepsis: Qualifiers: Sepsis type: sepsis due to unspecified organism Sepsis acute organ dysfunction status: with acute organ dysfunction Severe sepsis acute organ dysfunction type: acute renal failure Acute renal failure type: unspecified Severe sepsis shock status: without septic shock Qualified Code(s): A41.9 - Sepsis, unspecified organism; R65.20 - Severe sepsis without septic shock; N17.9 - Acute kidney failure, unspecified Code(s): A41.9 - Sepsis, unspecified organism Status: Acute Assessment and Plan: On antibitiocs as per hospitalist. (10) Chronic venous stasis dermatitis of both lower extremities: Code(s): I87.2 - Venous insufficiency (chronic) (peripheral) Status: Acute (11) Diastolic dysfunction: Code(s): I51.89 - Other ill-defined heart diseases Status: Acute Assessment and Plan: Stable off Lasix and receiving IVF. Subjective Date/time seen: 08/09/21 07:55 Denies chest pain or sob. Exam Const: General: cooperative, healthy appearing and comfortable Nutritional Appearance: obese Resp: Auscultation: clear to auscultation bilaterally, no crackles, no rales, no rhonchi and no wheezes Cardio: Jugular venous distension: no JVD Rate: regular rate Rhythm: abnormal rhythm Heart sounds: no murmurs Peripheral pulses: dorsalis pedis present GI: GI Palp: No abdominal tenderness and Yes Soft to palpation Neuro: General: oriented to person, oriented to place and oriented to time Extrem: Other: Erythema of both legs left>right Objective Data Vital Signs Vital Signs: Vital Signs - 24 hr 08/08/21 08:02 08/08/21 08:00 08/08/21 12:00 Temperature 99.7 F H Pulse Rate 78 71 74 Respiratory Rate 24 H Blood Pressure 140/60 Pulse Oximetry 94 Oxygen Delivery Oxygen Flow Rate 08/08/21 12:00 08/08/21 14:03 08/08/21 14:35 Temperature 99.4 F Pulse Rate 74 65 Respiratory Rate 24 H 16 Blood Pressure 120/53 L Pulse Oximetry 94 97 97 Oxygen Delivery Room Air Nasal Cannula Oxygen Flow Rate 1 08/08/21 16:00 08/08/21 18:12 08/08/21 19:35 Temperature 99.4 F 99.8 F H Pulse Rate 72 75 75 Respiratory Rat
[2021-08-09] MEDS: GABAPENTIN 300 MG CAPSULE PO ×3 (08:23→16:55)
[2021-08-09] MEDS: INSULIN HUMAN ISOPHAN/REGULAR 70/30 (*BKC) 100 UNITS/ML 40 UNITS SUB-Q ×2 (08:23→16:55)
[2021-08-09] MEDS: OXYBUTYNIN CHLORIDE 5 MG TABLET PO ×2 (08:23→16:55)
[2021-08-09] MEDS: AZITHROMYCIN 250 MG TABLET PO (08:23)
[2021-08-09] MEDS: ROSUVASTATIN 10 MG TABLET PO (08:23)
[2021-08-09] MEDS: FUROSEMIDE INJ 40 MG/4 ML VIAL IV PUSH (08:52)
[2021-08-09 11:42] LABS: Glucose Point of Care 155 mg/dl (65-105)
--- NOTE | 2021-08-09 12:35 | PM.IMPN ---
Progress Note: A&P Assessment and Plan (1) Diabetes mellitus: Code(s): E11.9 - Type 2 diabetes mellitus without complications Status: Chronic (2) Diastolic dysfunction: Code(s): I51.89 - Other ill-defined heart diseases Status: Acute (3) Atrial fibrillation: Onset Date: 04/20/17 Code(s): I48.91 - Unspecified atrial fibrillation Status: Chronic (4) Acute kidney injury: Code(s): N17.9 - Acute kidney failure, unspecified Status: Acute (5) Chronic venous stasis dermatitis of both lower extremities: Code(s): I87.2 - Venous insufficiency (chronic) (peripheral) Status: Acute (6) Sepsis: Qualifiers: Sepsis type: sepsis due to unspecified organism Sepsis acute organ dysfunction status: with acute organ dysfunction Severe sepsis acute organ dysfunction type: acute renal failure Acute renal failure type: unspecified Severe sepsis shock status: without septic shock Qualified Code(s): A41.9 - Sepsis, unspecified organism; R65.20 - Severe sepsis without septic shock; N17.9 - Acute kidney failure, unspecified Code(s): A41.9 - Sepsis, unspecified organism Status: Acute (7) Anemia: Code(s): D64.9 - Anemia, unspecified Status: Acute (8) Hyponatremia: Code(s): E87.1 - Hypo-osmolality and hyponatremia Status: Acute (9) Elevated troponin: Code(s): R77.8 - Other specified abnormalities of plasma proteins Status: Acute (10) Rhabdomyolysis: Qualifiers: Rhabdomyolysis type: non-traumatic Qualified Code(s): M62.82 - Rhabdomyolysis Code(s): M62.82 - Rhabdomyolysis Status: Acute (11) Hypertension: Code(s): I10 - Essential (primary) hypertension Status: Acute (12) Dyslipidemia: Code(s): E78.5 - Hyperlipidemia, unspecified Status: Acute (13) Pacemaker: Code(s): Z95.0 - Presence of cardiac pacemaker Status: Acute (14) CAD (coronary artery disease), autologous vein bypass graft: Code(s): I25.810 - Atherosclerosis of coronary artery bypass graft(s) without angina pectoris Status: Acute Plan 08/05/21 CPK significantly elevated today case reviewed with Nephrology patient placed back on normal saline recommendations appreciated cont abx for PNA atypical pNA labs still pending hyponatremia improving 118 08/04/21-> 122 08/05/21, nephro following INR 2.1 today Blood glucose stable at goal 08/06/21 UA CXR and blood cultures without source of infection highest documents temp 100.1 one episode in ER no elevated temps since admission will monitor off of abx, unlikely pt is infected severe dehydration w fall and prolonged time down w rhabdo and severe hyponatremia seem to be appropriate POA dx nephro following for hyponatremia CPK now trending down again cont current care possible dc in 72 hrs if rhabdo resolved and pt remains afebrile off abx 08/07/21 pt doing ok dulcolax for constipation does not appear to have resp infection clinically or on imaging but Mycoplasma + will tx w Zpack monitor warfarin while on this medication CPK downtrending hyponatremia improving PT/OT mobilize pt 08/08/21 on Azithro INR 2.4 goal 2-3 on IVFs for Rhabdo downtrending now ~2000 Na remains stable cont current care cardio and nephro following transfer to med surg w tele 08/09/21 on azithro INR at goal IVF cont CPK is ~1000 start IV lasix to improve fluid balance dc home to SNF tomorrow c/s placed to CC of dc plan for tomorrow Subjective Date/time seen: 08/09/21 12:35 Patient doing okay has no complaints some interview but is noted to have a 5 kg increase in his body weight. Exam Narrative: GEN: NAD, AAOx3, cooperative, obese HEENT: NCAT, MMM, EOMI Neck: no JVD Heart: IRR Lungs: CTA B/l Abd: soft, NT, distended, bowel sounds normoactive Ext: moves all, no cyanosis, no clubbing, + edema Neuro: Alert oriented x3 cranial nerve
[2021-08-09 15:56] LABS: Alpha 1 Globulin 0.4 g/dL (0.2-0.3); Alpha 2 Globulin 0.9 g/dL (0.5-0.9); Beta 1 Globulin 0.4 g/dL (0.4-0.6); Gamma Globulin 0.8 g/dL (0.8-1.7)
[2021-08-09 16:16] LABS: Glucose Point of Care 189 mg/dl (65-105)
[2021-08-09] MEDS: WARFARIN (*PBKC) 2 MG TABLET 4 MG PO (16:55)
[2021-08-09] MEDS: FUROSEMIDE INJ 40 MG/4 ML VIAL 20 MG IV PUSH (16:55)
[2021-08-09 20:54] LABS: Glucose Point of Care 114 mg/dl (65-105)
[2021-08-10] VITALS (14 sets, daily range): BP systolic 100–160; BP diastolic 41–122; PULSE 67–100; RESP 12–20; TEMP 36.4–37.2; O2SAT 91–98
[2021-08-10 01:06] LABS: Total Protein/Creatinine Ratio 659 mg/g creat (22-128)
[2021-08-10 05:44] LABS: Basophils Absolute Auto 0.1 K/mm3 (0.0-0.1); Basophils Percent Auto 0.8 % (0.2-1.2); Eosinophils Absolute Auto 0.2 K/mm3 (0-0.3); Eosinophils Percent Auto 1.7 % (0-4.4); Hematocrit 37.3 % (42.0-52.0); Hemoglobin 11.2 g/dL (14.0-18.0); Immature Granulocyte Absolute 0.31 K/mm3 (0.00-0.031); Immature Granulocyte Percent A 3.6 % (0-0.5); Lymphocytes Absolute Auto 1.49 K/mm3 (0.9-3.2); Lymphocytes Percent Auto 17.1 % (18.3-44.2); Mean Corpuscular Hemoglobin 24.3 pg (26-34); Mean Corpuscular Volume 80.9 fl (80-100); Mean Platelet Volume 9.1 fl (7.4-10.4); Monocytes Absolute Auto 0.8 K/mm3 (0.1-0.6); Monocytes Percent Auto 9.5 % (2.6-8.5); Neutrophils Absolute Auto 5.9 K/mm3 (1.3-6.7); Neutrophils Percent Auto 67.3 % (45.5-73.1); Platelet Count Result 279 k/mm3 (150-375); Red Blood Count 4.61 M/mm3 (4.6-6.20); White Blood Count 8.7 K/mm3 (4.5-10.0)
[2021-08-10 05:55] LABS: INR 2.6; Prothrombin Time 26.7 Seconds (11.1-14.7)
[2021-08-10 06:01] LABS: Albumin Level 3.2 g/dL (3.5-5.1); Anion Gap 0 mmol/L (8-16); Blood Urea Nitrogen 19 mg/dL (9-20); Calcium 8.2 mg/dL (8.4-10.2); Carbon Dioxide 37 mmol/L (22-30); Chloride 95 mmol/L (98-107); Creatine Kinase 510 U/L (55-170); Estimated CRCL calculation 92 ml/min; Estimated Glomerular Filt Rate > 60; Glucose 96 mg/dL (65-110); Magnesium 1.6 mg/dL (1.6-2.3); Phosphorus 3.2 mg/dL (2.5-4.5); Potassium 4.4 mmol/L (3.4-5.0); Sodium 132 mmol/L (137-145)
[2021-08-10 07:35] LABS: Glucose Point of Care 97 mg/dl (65-105)
--- NOTE | 2021-08-10 08:06 | PM.DS ---
DS: Admitting Diagnosis Discharge Date 08/10/21 Admitting Diagnosis (1) Sepsis: ?Qualifiers: ?Sepsis type:?sepsis due to unspecified organism??Sepsis acute organ dysfunction status:?with acute organ dysfunction??Severe sepsis acute organ dysfunction type:?acute renal failure??Acute renal failure type:?unspecified??Severe sepsis shock status:?without septic shock? Qualified Code(s):?A41.9 - Sepsis, unspecified organism; R65.20 - Severe sepsis without septic shock; N17.9 - Acute kidney failure, unspecified ?Code(s): A41.9 - Sepsis, unspecified organism ?Status:?Acute (2) Rhabdomyolysis: ?Qualifiers: ?Rhabdomyolysis type:?non-traumatic? Qualified Code(s):?M62.82 - Rhabdomyolysis ?Code(s): M62.82 - Rhabdomyolysis ?Status:?Acute (3) Acute hyponatremia: ?Code(s): E87.1 - Hypo-osmolality and hyponatremia ?Status:?Acute (4) Elevated troponin: ?Code(s): R77.8 - Other specified abnormalities of plasma proteins ?Status:?Acute (5) Chronic venous stasis dermatitis of both lower extremities: ?Code(s): I87.2 - Venous insufficiency (chronic) (peripheral) ?Status:?Acute (6) Acute kidney injury: ?Code(s): N17.9 - Acute kidney failure, unspecified ?Status:?Acute (7) Atrial fibrillation: ?Onset Date:?04/20/17 ?Code(s): I48.91 - Unspecified atrial fibrillation ?Status:?Acute DS: Discharge Diagnosis Discharge Diagnosis (1) Diabetes mellitus: Code(s): E11.9 - Type 2 diabetes mellitus without complications Status: Chronic (2) Diastolic dysfunction: Code(s): I51.89 - Other ill-defined heart diseases Status: Acute (3) Atrial fibrillation: Onset Date: 04/20/17 Code(s): I48.91 - Unspecified atrial fibrillation Status: Chronic (4) Acute kidney injury: Code(s): N17.9 - Acute kidney failure, unspecified Status: Acute (5) Chronic venous stasis dermatitis of both lower extremities: Code(s): I87.2 - Venous insufficiency (chronic) (peripheral) Status: Acute (6) Sepsis: Qualifiers: Acute renal failure type: unspecified Sepsis acute organ dysfunction status: with acute organ dysfunction Sepsis type: sepsis due to unspecified organism Severe sepsis acute organ dysfunction type: acute renal failure Severe sepsis shock status: without septic shock Qualified Code(s): A41.9 - Sepsis, unspecified organism; R65.20 - Severe sepsis without septic shock; N17.9 - Acute kidney failure, unspecified Code(s): A41.9 - Sepsis, unspecified organism Status: Acute (7) Anemia: Code(s): D64.9 - Anemia, unspecified Status: Acute (8) Hyponatremia: Code(s): E87.1 - Hypo-osmolality and hyponatremia Status: Acute (9) Elevated troponin: Code(s): R77.8 - Other specified abnormalities of plasma proteins Status: Acute (10) Rhabdomyolysis: Qualifiers: Rhabdomyolysis type: non-traumatic Qualified Code(s): M62.82 - Rhabdomyolysis Code(s): M62.82 - Rhabdomyolysis Status: Acute (11) Hypertension: Code(s): I10 - Essential (primary) hypertension Status: Acute (12) Dyslipidemia: Code(s): E78.5 - Hyperlipidemia, unspecified Status: Acute (13) Pacemaker: Code(s): Z95.0 - Presence of cardiac pacemaker Status: Acute (14) CAD (coronary artery disease), autologous vein bypass graft: Code(s): I25.810 - Atherosclerosis of coronary artery bypass graft(s) without angina pectoris Status: Acute DS: Summary Hospital Course Reason for hospitalization: ?weakness and fall x2 Hospital Course: 08/03/21 The patient fit sepsis criteria with tachycardia, tachypnea, leukocytosis, and fever.? Source could be due to pneumonia.? Chest x-ray suggest pulmonary vascular congestion but certainly pneumonia is not excluded both specially given sputum production noted on exam.? Patient also has chronic
[2021-08-10] MEDS: GABAPENTIN 300 MG CAPSULE PO ×3 (09:17→17:02)
[2021-08-10] MEDS: AZITHROMYCIN 250 MG TABLET PO (09:17)
[2021-08-10] MEDS: OXYBUTYNIN CHLORIDE 5 MG TABLET PO ×2 (09:18→17:02)
[2021-08-10] MEDS: ROSUVASTATIN 10 MG TABLET PO (09:18)
[2021-08-10] MEDS: SODIUM CHLORIDE 0.9% IV 500 ML 166 ML IV CONT (10:03)
--- NOTE | 2021-08-10 10:49 | PC.NURSE ---
entry writer agrees with assessment of Minal Mcdowell RN
[2021-08-10 11:18] LABS: Glucose Point of Care 145 mg/dl (65-105)
[2021-08-10 12:48] LABS: SARS-CoV-2 RNA PCR Negative
[2021-08-10 16:40] LABS: Glucose Point of Care 163 mg/dl (65-105)
[2021-08-10] MEDS: WARFARIN (*PBKC) 5 MG TABLET PO (17:02)
[2021-08-10] MEDS: INSULIN HUMAN ISOPHAN/REGULAR 70/30 (*BKC) 100 UNITS/ML 40 UNITS SUB-Q (17:03)
[2021-08-14 15:40] LABS: Creatinine, Random Urine 132 mg/dL
== END 2021-08-10 18:01 | DRG 558 ==
LOC: ANHIMU 08-06 12:54 → ANH2MED 08-10 08:04 → ANHIMU 08-12 14:55
PROVIDERS: Family Medicine; Hospitalist; Internal Medicine Nephrology; Admitting Provider Internal Medicine; PCP Internal Medicine; Visit Provider Internal Medicine
DX: M62.82 Rhabdomyolysis (principal); E87.1 Hypo-osmolality and hyponatremia; N17.9 Acute kidney failure, unspecified; I25.810 Atherosclerosis of coronary artery bypass graft(s) without angina pectoris; Z20.822 Contact with and (suspected) exposure to COVID-19; E11.65 Type 2 diabetes mellitus with hyperglycemia; E11.42 Type 2 diabetes mellitus with diabetic polyneuropathy; E11.51 Type 2 diabetes mellitus with diabetic peripheral angiopathy without gangrene; E78.2 Mixed hyperlipidemia; E86.0 Dehydration; E66.9 Obesity, unspecified; G47.33 Obstructive sleep apnea (adult) (pediatric); I87.2 Venous insufficiency (chronic) (peripheral); I83.018 Varicose veins of right lower extremity with ulcer other part of lower leg; I83.028 Varicose veins of left lower extremity with ulcer other part of lower leg; I11.9 Hypertensive heart disease without heart failure; I49.5 Sick sinus syndrome; I48.91 Unspecified atrial fibrillation; K59.00 Constipation, unspecified; L89.620 Pressure ulcer of left heel, unstageable; M19.90 Unspecified osteoarthritis, unspecified site; R77.8 Other specified abnormalities of plasma proteins; R05.9 Cough, unspecified; W06.XXXA Fall from bed, initial encounter; Z95.1 Presence of aortocoronary bypass graft; Z68.39 Body mass index [BMI] 39.0-39.9, adult; Z95.0 Presence of cardiac pacemaker; Z79.01 Long term (current) use of anticoagulants; Z79.4 Long term (current) use of insulin; Z99.89 Dependence on other enabling machines and devices; Z87.891 Personal history of nicotine dependence; Z79.84 Long term (current) use of oral hypoglycemic drugs
CPT/HCPCS: 36415; 76775; 80048; 80053; 80069; 81050; 82533; 82550; 82570; 82948; 83605; 83735; 83883; 83930; 83935; 84145; 84155; 84156; 84165; 84166; 84295; 84300; 84443; 84484; 85025; 85610; 85652; 86140; 86738; 87449; 87899; 93005; 97110; 97161; 97165; 97530; 97535; A9270; C8929; C9803; J0456; J0696; J1815; J1940; J7030; J7040; J7131; Q9957; U0003; U0005

== ENCOUNTER 2021-09-15 16:31 | Outpatient (CLI) | payer MEDICARE, SELFPAY ==
--- NOTE | ~2021-09-15 | XR_ITS ---
XR foot LT min 3V DATE: 09/15/2021 16:48 INDICATION: Left foot ulcer at heel for one year TECHNIQUE: 4 views COMPARISON: April 21, 2017 left foot FINDINGS: There is extensive calcification of the arteries including anterior and posterior tibial, d orsalis pedis, metatarsal and even digital arteries, most likely due to diabetes. There is chronic fusion at the ankle joint. Chronic mild plantar calcaneal enthesopathy. Hammertoe deformities. No fracture or dislocation or new periosteal reaction or bone destruction is evident. IMPRESSION: No radiographic evidence of osteomyelitis is detected at the heel where the left foot ulc er is reportedly situated Reviewed, dictated and finalized at location A. IMPRESSION: No radiographic evidence of osteomyelitis is detected at the heel w here the left foot ulcer is reportedly situated
== END 2021-09-15 16:32 | disposition home or self-care (01) ==
LOC: CHSIMG 16:34
PROVIDERS: PCP Internal Medicine; Visit Provider Nurse Practitioner Family
DX: L97.529 Non-pressure chronic ulcer of other part of left foot with unspecified severity (principal); E11.9 Type 2 diabetes mellitus without complications
CPT/HCPCS: 73630

== ENCOUNTER 2022-03-09 14:56 | Observation (INO) | payer MEDICARE, SELFPAY ==
[2022-03-09] VITALS (10 sets, daily range): BP systolic 107–124; BP diastolic 61–85; PULSE 77–88; RESP 16–20; TEMP 36.9–37.7; O2SAT 96–99; BMI 37.5
--- NOTE | ~2022-03-09 | XR_ITS ---
EXAMINATION: XR chest 1V portable Exam Date/Time: 03/09/2022 17:33 CLINICAL NURSING INTERN HISTORY: fever x 5 days increased weakness hx a.fib, cabg, pacemaker Comparison: 08/03/2021. RESULT: Lines, tubes, and devices: Left chest pacer with intact lead. Fractured superior sternotomy wires, r emain in stable position. Lungs and pleura: Mild diffuse reticular opacities. Cardiomediastinal silhouette: Stable. Other: No acute osseous or upper abdominal finding. IMPRESSION: Mild interstitial edema versus senescent change. Reviewed, dictated and finalized at location K. ICAL NURSING INTERN
--- NOTE | 2022-03-09 15:17 | ED.WEAKNESS ---
HPI - Weakness General Chief complaint: Weakness Stated complaint: ambulance Time Seen by Provider: 03/09/22 15:13 Source: patient, EMS and RN notes reviewed Mode of arrival: EMS Limitations: no limitations History of Present Illness HPI Narrative: patient states that he normally gets out of bed into wheelchair and is able to get around his house that way. For the last 5 days has been having intermittent fever and is so weak he is not able to get into his wheelchair. He denies any chills nausea vomiting diarrhea. They called his primary care physician Dr. Recinos who felt the patient should be admitted to the hospital for observation and possibly to a detention for strengthening and rehab which the patient has done in the past. He denies any chest pain shortness of breath. MD Complaint: generalized weakness Onset (ago): day(s) (4-5) Duration: progressively worsening Location: generalized Migration: none Severity: severe Relieving factors: none Exacerbating factors: none Associated symptoms: fever/chills Related Data Home Medications Medication Instructions Recorded Confirmed oxybutynin chloride 5 mg tablet 5 mg PO BID 01/31/19 03/09/22 gabapentin 300 mg capsule 300 mg PO TID 07/25/20 03/09/22 rosuvastatin 10 mg tablet 10 mg PO DAILY 07/25/20 03/09/22 diazepam 10 mg tablet 10 mg PO TID 03/09/22 03/09/22 lisinopril 20 mg tablet 20 mg PO DAILY 03/09/22 03/09/22 potassium chloride 20 mEq 20 meq PO DAILY 03/09/22 03/09/22 tablet,extended release warfarin 2 mg tablet 2 mg PO DAILY 03/09/22 03/09/22 Allergies Allergy/AdvReac Type Severity Reaction Status Date / Time codeine Allergy Hives Verified 03/09/22 15:10 Review of Systems Review of Systems: All systems reviewed & are unremarkable except as noted in HPI and below ENT: Comments: Sneezing Cardiovascular: Cardiovascular: Denies chest pain and Denies rapid heart rate Respiratory: Respiratory: Denies cough and Denies dyspnea Gastrointestinal: Gastrointestinal: Denies diarrhea, Denies nausea and Denies vomiting Genitourinary: Genitourinary: Denies dysuria [facility] Past Medical History Medical History (Reviewed 12/14/21 @ 14:08 by Willow Anderson [facility]) Arthritis Atrial fibrillation (04/20/17) On chronic anticoagulation with warfarin CAD in [place] artery CAD of autologous artery bypass graft without angina Chronic venous stasis dermatitis of both lower extremities Diabetes mellitus Diabetic peripheral neuropathy Erectile dysfunction Essential hypertension Hemochromatosis However patient's iron studies demonstrate a low iron level (12/2020), normal transferrin (in 2019) and normal hemoglobin and now actually has what appears bandemia chronic disease Mixed hyperlipidemia (04/20/17) Obesity (BMI 35.0-39.9 without comorbidity) SAKSHI on CPAP (03/2019) CPAP of 7 Peripheral artery disease Sick sinus syndrome (04/18/17) Urge urinary incontinence Surgical History Surgical History (Reviewed 12/14/21 @ 14:08 by Willow Anderson [facility]) H/O right heart catheterization Hx of CABG (~2004) Four-vessel CABG Pacemaker (04/2015) Single-chamber MRI compatible pacemaker Family History Family History Father Acute myocardial infarction Son Family history of obesity Social History Social History (Reviewed 12/14/21 @ 14:08 by Willow Anderson [facility]) Social History: He has been since 1997 and he he lives in his own home. He ambulates with a walker. His son comes and checks on him daily. He is retired from the [employer]. Years smoked: 37 Smoking status: Former smoker Tobacco type: cigars Smokeless tobacco user: chewing tobacco Additional smoking assessment comments: He smoked 3-5 cigars a day but quit smoking at age 54. Alcohol intake: never Substance use: never Gender identity (if verbalized by the patient): Male Spiritual care concerns: No Exam Const: General:
[2022-03-09 15:45] LABS: Influenza A QL RT-PCR Negative (Negative); Influenza B QL RT-PCR Negative (Negative); SARS-CoV-2 RNA PCR Negative (Negative)
[2022-03-09] MEDS: SODIUM CHLORIDE 0.9% IV 1,000 ML 999 ML IV CONT ×2 (16:04→20:12)
[2022-03-09 16:12] LABS: Basophils Absolute Auto 0.02 K/mm3 (0.00-0.10); Basophils Percent Auto 0.1 % (0.0-1.0); Eosinophils Absolute Auto 0.01 K/mm3 (0.02-0.50); Eosinophils Percent Auto 0.1 % (1.0-6.0); Immature Granulocyte Absolute 0.11 K/mm3 (0.00-0.00); Immature Granulocyte Percent A 0.7 % (0.0-0.0); Lymphocytes Percent Auto 5.1 % (18.0-42.0); Mean Corpuscular HGB Conc 31.4 g/dL (32.0-36.0); Mean Corpuscular Volume 76.3 fL (78.0-102.0); Mean Platelet Volume 9.6 fl (8.7-11.0); Monocytes Absolute Auto 1.04 K/mm3 (0.10-0.90); Monocytes Percent Auto 6.7 % (2.0-11.0); Neutrophils Absolute Auto 13.6 K/mm3 (1.7-7.2); Neutrophils Percent Auto 87.3 % (50.0-70.0); Platelet Count Result 227 K/mm3 (150-420); Red Blood Count 4.59 M/mm3 (4.70-6.10); Red Cell Distribution Width 18.8 % (11.6-14.4); White Blood Count 15.6 K/mm3 (4.8-10.8)
--- NOTE | 2022-03-09 16:37 | PC.NURSE ---
during pericare it was noted bright pink excoriation noted to bilat groins and to scrotal tissue. skin intact to same.
[2022-03-09 16:54] LABS: Add Urine Microscopic? YES; Appearance Urine Clear (Clear); Bilirubin Urine Negative (Negative); Blood Urine 2+ (Negative); Color Urine Light Yellow (Yellow); Glucose Urine UA Negative (Negative); Ketones Urine Negative (Negative); Leukocyte Esterase Ur Negative LEU/UL (Negative); Nitrate Urine Negative (Negative); Protein Urine Trace (Negative)
[2022-03-09 16:54] LABS: Lactic Acid Reflex 1.2 mmol/L (0.4-2.0)
[2022-03-09 16:57] LABS: Alanine Aminotransferase 30 U/L (16-63); Albumin Level 3.1 g/dL (3.4-5.0); Alkaline Phosphatase 79 U/L (46-116); Anion Gap 7 mmol/L (8-16); Aspartate Amino Transferase 53 U/L (15-37); Bilirubin,Total 0.7 mg/dL (0.00-1.00); Blood Urea Nitrogen 46 mg/dL (7-18); Calcium 8.3 mg/dL (8.5-10.1); Carbon Dioxide 28 mmol/L (21-32); Chloride 89 mmol/L (98-108); Estimated CRCL calculation 41 ml/min; Estimated Glomerular Filt Rate 38; Glucose 149 mg/dL (70-99); Magnesium 2.1 mg/dL (1.8-2.4); Osmolality Calculated 272 mOsm/kg (285-295); Potassium 3.7 mmol/L (3.5-5.1); Sodium 124 mmol/L (136-145); Total Protein 7.4 g/dL (6.4-8.2)
[2022-03-09 17:11] LABS: Amorphous Sediment Urine Moderate; Bacteria Urine Trace /hpf; RBC Urine 0-2 /hpf (0-2); Squamous Epithelial Cell Urine Rare /hpf (Few); WBC Urine 0-3 /hpf (0-3)
[2022-03-09 17:31] LABS: CRP > 12.0 mg/dL (0.0-0.9)
--- NOTE | 2022-03-09 18:47 | ECG_ITS ---
Measurements Intervals [place] Rate: 86 P: CA: 0 QRS: -18 QRSD: 108 T: 11 QT: 381 QTc: 456 Interpretive Statements ATRIAL FIBRILLATION VENTRICULAR PREMATURE COMPLEX DELAYED PRECORDIAL R/S TRANSITION BORDERLINE T WAVE ABNORMALITY- INFERIOR LEADS BASELINE ARTIFACT- II, III, AVR, AVL, AVF, V2, V4 ABNORMAL ECG COMPARED TO ECG 08/03/2021 23:29:16 NO SIGNIFICANT CHANGES Electronically Signed On 03-09-2022 20:18:29 [employer]MER by Celso Haro D.O.
--- NOTE | 2022-03-09 18:57 | PC.NURSE ---
room 207, family aware. waiting for room to be cleaned
[2022-03-09 19:00] LABS: NT Pro B Type Natriuretic Pept 1257 pg/mL (0-125)
[2022-03-09] MEDS: HYDROcodone/acetaminophen (*CRX) 5-325 MG TABLET 1 TAB PO (19:04)
--- NOTE | 2022-03-09 19:35 | ADMGEN ---
This patient, Diego Marquez Sr., was admitted to 2nd Floor Room 207-2. Patient/family oriented to hospital policies and general routines including ID bracelet, bed and alarms, visiting hours, pain management, procedures, bathroom and other care routines, personal items, smoking policy, room service/diet, and visiting hours. Information on how to activate the Rapid Response Team has been discussed. Patient/Family are encouraged to report perceived risks to care and to ask questions if they do not understand what they are told or what they should do.
[2022-03-09] MEDS: traMADol HCL (*CRX) 25 MG TABLET PO (20:15)
[2022-03-09] MEDS: OXYBUTYNIN CHLORIDE 5 MG TABLET PO (20:16)
[2022-03-09] MEDS: GABAPENTIN 300 MG CAPSULE PO (20:16)
[2022-03-09] MEDS: traZODone HCL 50 MG TABLET PO (20:16)
[2022-03-09] MEDS: diazePAM (*CRX) 5 MG TABLET 10 MG PO (20:16)
[2022-03-09 20:20] LABS: Glucose Point of Care 161 mg/dl (65-105)
[2022-03-10 05:23] LABS: Hematocrit 32.8 % (37.0-46.0); Hemoglobin 10.2 g/dL (12.4-15.3); Mean Corpuscular HGB Conc 31.1 g/dL (32.0-36.0); Mean Corpuscular Hemoglobin 23.8 pg (27.0-31.0); Mean Corpuscular Volume 76.5 fL (78.0-102.0); Mean Platelet Volume 9.6 fl (8.7-11.0); Platelet Count Result 208 K/mm3 (150-420); Red Blood Count 4.29 M/mm3 (4.70-6.10); Red Cell Distribution Width 18.9 % (11.6-14.4); White Blood Count 11.6 K/mm3 (4.8-10.8)
[2022-03-10 05:40] LABS: INR 1.4; Prothrombin Time 14.5 Seconds (9.50-12.10)
[2022-03-10 05:45] LABS: Alanine Aminotransferase 12 U/L (16-63); Albumin Level 2.6 g/dL (3.4-5.0); Alkaline Phosphatase 69 U/L (46-116); Anion Gap 4 mmol/L (8-16); Aspartate Amino Transferase 43 U/L (15-37); Bilirubin,Total 0.4 mg/dL (0.00-1.00); Blood Urea Nitrogen 37 mg/dL (7-18); Calcium 7.8 mg/dL (8.5-10.1); Carbon Dioxide 29 mmol/L (21-32); Chloride 97 mmol/L (98-108); Estimated CRCL calculation 49 ml/min; Estimated Glomerular Filt Rate 46; Glucose 155 mg/dL (70-99); Osmolality Calculated 281 mOsm/kg (285-295); Potassium 4.2 mmol/L (3.5-5.1); Sodium 130 mmol/L (136-145); Total Protein 6.6 g/dL (6.4-8.2)
--- NOTE | 2022-03-10 06:53 | PC.NURSE ---
Attempted to get pt up to bedside commode, pt unable to sit up in bed with extensive assist, pt noted to be incontinent, depends changed, wilman-care provided.
[2022-03-10 08:00] VITALS: BP 98/74; PULSE 90; RESP 18; TEMP 37.4; O2SAT 97
[2022-03-10 08:06] LABS: Glucose Point of Care 155 mg/dl (65-105)
[2022-03-10] MEDS: diazePAM (*CRX) 5 MG TABLET 10 MG PO ×3 (08:53→16:31)
[2022-03-10] MEDS: GABAPENTIN 300 MG CAPSULE PO ×3 (08:53→16:31)
[2022-03-10] MEDS: OXYBUTYNIN CHLORIDE 5 MG TABLET PO ×2 (08:53→17:23)
[2022-03-10] MEDS: lisinopriL 20 MG TABLET PO (08:53)
--- NOTE | 2022-03-10 09:47 | PM.IMHP ---
H&P: HPI History of Present Illness Date/Time: 03/10/22 09:47 Chief Complaint: Weakness, dehydration Narrative: This is a 72-year-old male he came into the emergency room complaining of intermittent fevers for the past 5 days states that he has been weak and has not been able to get out of the chair patient states he has not felt like doing anything. Patient has a chronic history of cellulitis, bilateral lower extremity venous stasis and left heel ulcers that is improving. Patient was previously treated at [facility] and then switched to [facility]. Patient was then run in [place] mode discharged on February it is a lot a walking and he deemed most his heel he was started on antibiotics he was treated with doxycycline and clindamycin at 1 point. Patient had a surgical debridement of his left heel by Dr. Emmanuel on 01/22/2022 on 01/25 they initiated appy fix application patient has a past medical history of sleep apnea he uses the CPAP hypertension, diabetes type 2, history of osteoarthritis, he is treated with insulin and oral and agents he has had a history of coronary artery bypass grafts to the left ankle he also has hyperlipidemia, generalized anxiety. Patient will be seen by Physical therapy and Occupational therapy for possible intermediate placement or swing to see if he has a swing candidate. Review of Systems Review of Systems: Weakness and multiple wounds All systems reviewed & are unremarkable except as noted in HPI and below PMFSH Past Medical History Medical History (Updated 03/14/22 @ 11:18 by Vickie Dueñas NP) Arthritis Atrial fibrillation (04/20/17) On chronic anticoagulation with warfarin CAD in [place] artery CAD of autologous artery bypass graft without angina Chronic venous stasis dermatitis of both lower extremities Diabetes mellitus Diabetic peripheral neuropathy Dysphagia Erectile dysfunction Essential hypertension Hemochromatosis However patient's iron studies demonstrate a low iron level (12/2020), normal transferrin (in 2019) and normal hemoglobin and now actually has what appears bandemia chronic disease Hyperkalemia Mixed hyperlipidemia (04/20/17) Obesity (BMI 35.0-39.9 without comorbidity) SAKSHI on CPAP (03/2019) CPAP of 7 Peripheral artery disease Sick sinus syndrome (04/18/17) Urge urinary incontinence Wounds, multiple open, lower extremity Surgical History Surgical History H/O right heart catheterization Hx of CABG (~2004) Four-vessel CABG Pacemaker (04/2015) Single-chamber MRI compatible pacemaker Family History Family History Father Acute myocardial infarction Son Family history of obesity Social History Social History Social History: He has been since 1997 and he he lives in his own home. He ambulates with a walker. His son comes and checks on him daily. He is retired from the [employer]. Smoking packs per day: 1 Smoking cigarettes per day: 20.0 Years smoked: 61 Smoking pack-years: 61.00 Smoking status: Current every day smoker Tobacco type: smokeless tobacco Smokeless tobacco user: chewing tobacco and snuff Second hand tobacco smoke exposure: No Additional smoking assessment comments: He smoked 3-5 cigars a day but quit smoking at age 54. Alcohol intake: former Substance use: never Lack of Transportation: YES Lack of Food: Never True Current Housing: I Have Housing Concerned About Future Housing: No Difficulty Paying Gas/Electric Bills: No Difficulty Paying for Meds: No Currently Unemployed: No Education: High School Diploma/GED Difficulty w/ Childcare or Family Care: No Gender identity (if verbalized by the patient): Male Spiritual care concerns: No Comments At time as signature, I have reviewed an
[2022-03-10 11:51] LABS: Glucose Point of Care 231 mg/dl (65-105)
[2022-03-10 16:00] VITALS: BP 98/48; PULSE 74; RESP 18; TEMP 37.1; O2SAT 93
[2022-03-10 16:33] LABS: Glucose Point of Care 256 mg/dl (65-105)
[2022-03-10] MEDS: WARFARIN (*PBKC) 2 MG TABLET 4 MG PO (16:38)
--- NOTE | 2022-03-10 19:30 | PC.NURSE ---
Upon assessment, pt is in bed, resting and easily awakens. Wound to his Lt foot noted open ulcer area to bottom of heel. Wound cleansed c soap and water. Noted redness and warmth of skin up to lower calf area that is tight and red. Ulcer to bottom of heel dressed as per order and wrapped c kerlix and secured c tape. Pt has no c/o and call hinojosa at pt side.
[2022-03-10] MEDS: traZODone HCL 50 MG TABLET PO (19:57)
[2022-03-10 20:13] LABS: Glucose Point of Care 301 mg/dl (65-105)
--- NOTE | 2022-03-10 20:43 | PC.NURSE ---
Nu Dueñas NP, notified of elevated blood sugar. New orders received.
--- NOTE | 2022-03-10 20:45 | PC.NURSE ---
Nu Dueñas NP, notified of patient's elevated blood sugars. New orders received.
[2022-03-10] MEDS: INSULIN HUMAN ISOPHAN/REGULAR 70/30 (*BKC) 100 UNITS/ML 40 UNITS SUB-Q (20:49)
--- NOTE | 2022-03-10 22:00 | PC.NURSE ---
Pt assited to side lying position, he is able to follow commands and helps in turning himself. Pt uses urinal c minmal assist, depend in place. call hinojosa at pt side.
[2022-03-10 23:36] VITALS: BP 100/51; PULSE 74; RESP 20; TEMP 37.2; O2SAT 93
--- NOTE | 2022-03-11 01:00 | PC.NURSE ---
Pt sleeping, resting comfortable, RR even and nonlabored. Call hinojosa at pt side.
--- NOTE | 2022-03-11 03:53 | PC.NURSE ---
Pt sleeping comfortable, turned c minimal assist by pt. Pt uses urinal c some help. Call hinojosa at pt. side.
[2022-03-11 05:28] LABS: Hemoglobin 10.1 g/dL (12.4-15.3); Mean Corpuscular HGB Conc 30.6 g/dL (32.0-36.0); Mean Corpuscular Hemoglobin 23.9 pg (27.0-31.0); Mean Platelet Volume 10.2 fl (8.7-11.0); Platelet Count Result 219 K/mm3 (150-420); Red Blood Count 4.23 M/mm3 (4.70-6.10); Red Cell Distribution Width 19.2 % (11.6-14.4); White Blood Count 8.2 K/mm3 (4.8-10.8)
[2022-03-11 05:36] LABS: Anion Gap 5 mmol/L (8-16); Blood Urea Nitrogen 42 mg/dL (7-18); Calcium 8.2 mg/dL (8.5-10.1); Carbon Dioxide 28 mmol/L (21-32); Chloride 98 mmol/L (98-108); Estimated CRCL calculation 47 ml/min; Estimated Glomerular Filt Rate 44; Glucose 159 mg/dL (70-99); Osmolality Calculated 285 mOsm/kg (285-295); Potassium 4.5 mmol/L (3.5-5.1); Sodium 131 mmol/L (136-145)
[2022-03-11 05:40] LABS: INR 1.3; Prothrombin Time 13.8 Seconds (9.50-12.10)
[2022-03-11 07:45] VITALS: BP 103/54; PULSE 77; RESP 18; TEMP 36.9; O2SAT 94
[2022-03-11] MEDS: GABAPENTIN 300 MG CAPSULE PO ×3 (09:43→17:10)
[2022-03-11] MEDS: lisinopriL 20 MG TABLET PO (09:43)
[2022-03-11] MEDS: diazePAM (*CRX) 5 MG TABLET 10 MG PO ×3 (09:43→17:10)
[2022-03-11] MEDS: OXYBUTYNIN CHLORIDE 5 MG TABLET PO ×2 (09:43→17:10)
[2022-03-11 11:47] LABS: Glucose Point of Care 247 mg/dl (65-105)
[2022-03-11] MEDS: HYDROcodone/acetaminophen (*CRX) 5-325 MG TABLET 1 TAB PO (12:55)
--- NOTE | 2022-03-11 14:09 | WPDPN ---
Progress Note: A&P Assessment and Plan (1) Weakness: Code(s): R53.1 - Weakness Status: Acute Assessment and Plan: PT/OT evaluate and treat Adequated nutrition and hydration (2) Candidiasis of other urogenital sites: Code(s): B37.49 - Other urogenital candidiasis Status: Acute (3) Hyponatremia: Code(s): E87.1 - Hypo-osmolality and hyponatremia Status: Acute Assessment and Plan: fluid restriction daily weight daily labs 112KG> (4) Anemia: Code(s): D64.9 - Anemia, unspecified Status: Acute Assessment and Plan: monitor hgb type and cross match for hgb below 7 Transfuse as needed (5) Diabetes mellitus: Code(s): E11.9 - Type 2 diabetes mellitus without complications Status: Chronic Assessment and Plan: foot ulcer noted with poor healing being followed by wound clinic Following wound clinic direcetion (6) Wounds, multiple open, lower extremity: Code(s): S81.809A - Unspecified open wound, unspecified lower leg, initial encounter Status: Acute Assessment and Plan: Chronic wound following wound clinic orders Calcaneus left , medial Cleanse with Soap and water every Other day Pain periwound weekly Aquacel Extra 4 x 5 every other day apply Aquacel Extra hydro fiber into the wound bed change every other day Secondary dressing ABD pad 5 x 9 every other day cover with ABD pad change every other day secured with Kerlix roll stare or nonsterile 6 x 4.5 x 4 every other day apply Kerlix to secure dressing change every other day wound cultures were positive for Pseudomonas, Enterococcus, and staff Subjective Date/time seen: 03/11/22 14:09 Interval history: Patient is still swollen and somewhat weak. He will continue to work with therapy. Patient denies any pain but states that his feet or foot hurts. Mr. Marquez has remained a febrile today and is eating and drinking without difficulties today. Patient will be evaluated in the morning by OT and will continue to monitor. Patient will be on a fluid restriction as well as daily weights. Exam Narrative: GENERAL:disheveled unkept and in no acute distress. HEAD:Normocephalic EYES: PERRLA and EOMI. ENT: Nares clear, no rhinorrhea or epistaxis. Mucous membranes moist. CHEST: Clear to auscultation. No respiratory distress. HEART: Regular rate and rhythm. decreased peripheral pulses. ABDOMEN: Soft, nontender, distended, normal active bowel sounds. EXTREMITIES: Normal range of motion. 1-2+edema. left heel SKIN: Warm, dry, no rash. NEURO: No focal deficits. Alert and oriented x3. Objective Data Vital Signs Vital Signs: Vital Signs - 24 hr 03/10/22 16:00 03/10/22 23:36 03/11/22 07:45 Temperature 98.7 F 98.9 F 98.4 F Pulse Rate 74 74 77 Respiratory Rate 18 20 18 Blood Pressure 98/48 L 100/51 L 103/54 L Pulse Oximetry 93 93 94 Oxygen Delivery Room Air Room Air Room Air Intake/Output Intake/Output: Intake & Output 03/08/22 03/09/22 03/10/22 03/11/22 23:59 23:59 23:59 23:59 Intake Total 2050 1510 1170 Output Total 1000 Balance 1050 1510 1170 Meds/Results Medications: Active Medications Generic Name Dose Route Start Last Admin Trade Name Freq PRN Reason Stop Dose Admin Acetaminophen 650 mg 03/09/22 18:38 Acetaminophen 325 Mg Tablet PO Q4H PRN Mild Pain (1-3) or Fever Hydrocodone Bitart/Acetaminophen 1 tab 03/09/22 18:38 03/11/22 12:55 Hydrocodone/Acetaminophen (*Crx) 5-325 Mg Tablet PO 1 tab Q6HR PRN Administration Pain Rated 7-10 Albuterol 2 puff 03/09/22 18:48 Albuterol Sulfate (*Sp) Inhaler INHALATION QIDRT PRN Shortness Of Breath Dextrose 12.5 gm 03/09/22 18:38 Dextrose 50% 25 Gm/50 Ml Syringe IV PUSH PRN PRN Hypoglycemia Protocol Diazepam 10 mg 03/09/22 19:00 03/11/22 12:53 Diazepam (*Crx) 5 Mg Tablet PO 10 mg TID SUNNY Administration Furosemid
[2022-03-11 16:45] VITALS: BP 105/53; PULSE 75; RESP 18; TEMP 36.8; O2SAT 93
[2022-03-11] MEDS: FUROSEMIDE 40 MG TABLET PO (17:12)
[2022-03-11 17:15] LABS: Glucose Point of Care 241 mg/dl (65-105)
[2022-03-11] MEDS: INSULIN HUMAN ISOPHAN/REGULAR 70/30 (*BKC) 100 UNITS/ML 40 UNITS SUB-Q (17:16)
[2022-03-11] MEDS: WARFARIN (*PBKC) 2 MG TABLET 4 MG PO (17:28)
[2022-03-11] MEDS: WARFARIN (*PBKC) 2.5 MG TABLET PO (17:28)
[2022-03-11] MEDS: traMADol HCL (*CRX) 25 MG TABLET PO (20:17)
[2022-03-11] MEDS: traZODone HCL 50 MG TABLET PO (20:17)
[2022-03-11 20:26] LABS: Glucose Point of Care 226 mg/dl (65-105)
[2022-03-11 23:08] VITALS: BP 107/55; PULSE 65; RESP 17; TEMP 36.5; O2SAT 95
[2022-03-12 05:18] LABS: Hematocrit 36.2 % (37.0-46.0); Hemoglobin 10.8 g/dL (12.4-15.3); Mean Corpuscular HGB Conc 29.8 g/dL (32.0-36.0); Mean Corpuscular Hemoglobin 23.6 pg (27.0-31.0); Mean Corpuscular Volume 79.2 fL (78.0-102.0); Mean Platelet Volume 9.7 fl (8.7-11.0); Platelet Count Result 239 K/mm3 (150-420); Red Blood Count 4.57 M/mm3 (4.70-6.10); Red Cell Distribution Width 19.5 % (11.6-14.4); White Blood Count 7.9 K/mm3 (4.8-10.8)
[2022-03-12 05:30] LABS: INR 1.4; Prothrombin Time 14.8 Seconds (9.50-12.10)
[2022-03-12 05:44] LABS: Anion Gap 8 mmol/L (8-16); Blood Urea Nitrogen 46 mg/dL (7-18); Calcium 8.8 mg/dL (8.5-10.1); Carbon Dioxide 28 mmol/L (21-32); Chloride 93 mmol/L (98-108); Estimated CRCL calculation 44 ml/min; Estimated Glomerular Filt Rate 41; Glucose 182 mg/dL (70-99); NT Pro B Type Natriuretic Pept 1422 pg/mL (0-125); Osmolality Calculated 284 mOsm/kg (285-295); Sodium 129 mmol/L (136-145)
[2022-03-12 07:40] VITALS: BP 112/40; PULSE 71; RESP 18; TEMP 36.6; O2SAT 94
[2022-03-12] MEDS: GABAPENTIN 300 MG CAPSULE PO ×3 (09:25→17:38)
[2022-03-12] MEDS: diazePAM (*CRX) 5 MG TABLET 10 MG PO ×3 (09:25→17:39)
[2022-03-12] MEDS: lisinopriL 20 MG TABLET PO (09:26)
[2022-03-12] MEDS: OXYBUTYNIN CHLORIDE 5 MG TABLET PO ×2 (09:26→17:38)
[2022-03-12] MEDS: FUROSEMIDE 40 MG TABLET PO (09:26)
[2022-03-12 11:49] LABS: Glucose Point of Care 228 mg/dl (65-105)
[2022-03-12] MEDS: SODIUM CHLORIDE 0.9% IV 1,000 ML 100 ML IV CONT (11:57)
--- NOTE | 2022-03-12 14:02 | WPDPN ---
Progress Note: A&P Assessment and Plan (1) Weakness: Code(s): R53.1 - Weakness Status: Acute Assessment and Plan: PT/OT evaluate and treat Adequated nutrition and hydration (2) Candidiasis of other urogenital sites: Code(s): B37.49 - Other urogenital candidiasis Status: Acute Assessment and Plan: resolved (3) Hyponatremia: Code(s): E87.1 - Hypo-osmolality and hyponatremia Status: Acute Assessment and Plan: fluid restriction daily weight daily labs 112KG> (4) Anemia: Code(s): D64.9 - Anemia, unspecified Status: Acute Assessment and Plan: monitor hgb type and cross match for hgb below 7 Transfuse as needed (5) Diabetes mellitus: Code(s): E11.9 - Type 2 diabetes mellitus without complications Status: Chronic Assessment and Plan: foot ulcer noted with poor healing being followed by wound clinic Following wound clinic direcetion (6) Wounds, multiple open, lower extremity: Code(s): S81.809A - Unspecified open wound, unspecified lower leg, initial encounter Status: Acute Assessment and Plan: Chronic wound following wound clinic orders Calcaneus left , medial Cleanse with Soap and water every Other day Pain periwound weekly Aquacel Extra 4 x 5 every other day apply Aquacel Extra hydro fiber into the wound bed change every other day Secondary dressing ABD pad 5 x 9 every other day cover with ABD pad change every other day secured with Kerlix roll stare or nonsterile 6 x 4.5 x 4 every other day apply Kerlix to secure dressing change every other day wound cultures were positive for Pseudomonas, Enterococcus, and staff (7) Dehydration: Code(s): E86.0 - Dehydration Status: Acute Assessment and Plan: IV saline will monitor repeat labs in the morning. Subjective Date/time seen: 03/12/22 14:02 Interval history: Patient is stronger and moving a little better still needing some assistance we will work on improving his sodium level and monitor his dehydration. At this time patient is resting well in the bed after therapy. Exam Narrative: GENERAL:disheveled unkept and in no acute distress. HEAD:Normocephalic EYES: PERRLA and EOMI. ENT: Nares clear, no rhinorrhea or epistaxis. Mucous membranes moist. CHEST: Clear to auscultation. No respiratory distress. HEART: Regular rate and rhythm. decreased peripheral pulses. ABDOMEN: Soft, nontender, distended, normal active bowel sounds. EXTREMITIES: Normal range of motion. 1-2+edema. left heel SKIN: Warm, dry, no rash. NEURO: No focal deficits. Alert and oriented x3. Objective Data Vital Signs Vital Signs: Vital Signs - 24 hr 03/11/22 16:45 03/11/22 23:08 03/12/22 07:40 Temperature 98.2 F 97.7 F 98 F Pulse Rate 75 65 71 Respiratory Rate 18 17 18 Blood Pressure 105/53 L 107/55 L 112/40 L Pulse Oximetry 93 95 94 Oxygen Delivery Room Air Room Air Room Air Intake/Output Intake/Output: Intake & Output 03/09/22 03/10/22 03/11/22 03/12/22 23:59 23:59 23:59 23:59 Intake Total 2050 1510 1830 1175 Output Total 1000 Balance 1050 1510 1830 1175 Meds/Results Medications: Active Medications Generic Name Dose Route Start Last Admin Trade Name Freq PRN Reason Stop Dose Admin Acetaminophen 650 mg 03/09/22 18:38 Acetaminophen 325 Mg Tablet PO Q4H PRN Mild Pain (1-3) or Fever Hydrocodone Bitart/Acetaminophen 1 tab 03/09/22 18:38 03/11/22 12:55 Hydrocodone/Acetaminophen (*Crx) 5-325 Mg Tablet PO 1 tab Q6HR PRN Administration Pain Rated 7-10 Albuterol 2 puff 03/09/22 18:48 Albuterol Sulfate (*Sp) Inhaler INHALATION QIDRT PRN Shortness Of Breath Artificial Tears 1 drop 03/11/22 20:24 Artificial Tears Ophth Soln 15 Ml Bottle EACH EYE QID PRN Dry Eye(s) Dextrose 12.5 gm 03/09/22 18:38 Dextrose 50% 25 Gm/50 Ml Syringe IV PUSH PRN PRN
[2022-03-12 16:40] VITALS: BP 122/56; PULSE 71; RESP 18; TEMP 37; O2SAT 91
[2022-03-12 17:14] LABS: Glucose Point of Care 190 mg/dl (65-105)
[2022-03-12] MEDS: WARFARIN (*PBKC) 5 MG TABLET PO (17:44)
[2022-03-12] MEDS: traMADol HCL (*CRX) 25 MG TABLET PO (20:25)
[2022-03-12] MEDS: traZODone HCL 50 MG TABLET PO (20:26)
[2022-03-12 20:40] LABS: Glucose Point of Care 251 mg/dl (65-105)
[2022-03-12 23:50] VITALS: BP 130/60; PULSE 64; RESP 18; TEMP 36.8; O2SAT 94
[2022-03-13] MEDS: SODIUM CHLORIDE 0.9% IV 1,000 ML 100 ML IV CONT (01:04)
[2022-03-13 05:26] LABS: Hematocrit 37.2 % (37.0-46.0); Hemoglobin 11.4 g/dL (12.4-15.3); Mean Corpuscular HGB Conc 30.6 g/dL (32.0-36.0); Mean Corpuscular Hemoglobin 24.1 pg (27.0-31.0); Mean Corpuscular Volume 78.6 fL (78.0-102.0); Mean Platelet Volume 9.5 fl (8.7-11.0); Platelet Count Result 240 K/mm3 (150-420); Red Blood Count 4.73 M/mm3 (4.70-6.10); Red Cell Distribution Width 19.3 % (11.6-14.4); White Blood Count 8.3 K/mm3 (4.8-10.8)
[2022-03-13 05:39] VITALS: O2SAT 99
[2022-03-13 05:40] LABS: Anion Gap 4 mmol/L (8-16); Blood Urea Nitrogen 35 mg/dL (7-18); Calcium 8.5 mg/dL (8.5-10.1); Carbon Dioxide 32 mmol/L (21-32); Chloride 93 mmol/L (98-108); Estimated CRCL calculation 62 ml/min; Estimated Glomerular Filt Rate > 60; Glucose 259 mg/dL (70-99); Osmolality Calculated 285 mOsm/kg (285-295); Potassium 5.1 mmol/L (3.5-5.1); Sodium 129 mmol/L (136-145)
[2022-03-13 05:42] LABS: INR 1.7; Prothrombin Time 17.8 Seconds (9.50-12.10)
[2022-03-13 08:00] VITALS: BP 143/71; PULSE 81; RESP 18; TEMP 37.2; O2SAT 89
[2022-03-13 08:01] LABS: Glucose Point of Care 260 mg/dl (65-105)
[2022-03-13] MEDS: INSULIN HUMAN ISOPHAN/REGULAR 70/30 (*BKC) 100 UNITS/ML 40 UNITS SUB-Q ×2 (08:38→17:03)
[2022-03-13] MEDS: diazePAM (*CRX) 5 MG TABLET 10 MG PO ×3 (08:41→17:07)
[2022-03-13] MEDS: GABAPENTIN 300 MG CAPSULE PO ×3 (08:41→17:07)
[2022-03-13] MEDS: OXYBUTYNIN CHLORIDE 5 MG TABLET PO ×2 (08:42→17:07)
[2022-03-13] MEDS: FUROSEMIDE 40 MG TABLET PO (08:42)
[2022-03-13] MEDS: lisinopriL 20 MG TABLET PO (08:43)
[2022-03-13] MEDS: HYDROcodone/acetaminophen (*CRX) 5-325 MG TABLET 1 TAB PO ×2 (08:43→19:06)
--- NOTE | 2022-03-13 09:01 | PC.NURSE ---
ST evaluated patient and changed patient to nectar thick liquids.
--- NOTE | 2022-03-13 09:45 | STIPEVAL ---
Thank you for referring Diego Marquez to [facility].? The patient is scheduled to be seen for therapy? 3-5x/week for 2 weeks. Please review, sign, date and return this plan of care BART. I agree with and certify that the following plan of care is medically necessary. Referring Physician Date Admitting Provider: Jona Pop MD Attending Provider: Jona Pop MD Referring Provider: CONNER Inpatient Evaluation Start: 03/13/22 09:07 Freq: Status: Active Protocol: Document 03/13/22 09:14 MJB (Rec: 03/13/22 09:38 [id number]) Therapy Assessment Status Assessment Status Assessment Status Evaluation Prior Level of Function Prior Swallow Level Prior Intake Method Oral Prior Diet Regular (Level 7 Diet) Prior Liquid Consistency Thin (Level 0 Diet) Comments Additional Prior Level of Function Patient reported that he has Comments had difficulty swallowing fluids for a couple months now . Pain Assessment Timing of Pain Assessment Timing of Pain Assessment Assessment Self Report Self Report Pain Level 0 Pain Score Pain Score 0: Self Report Bedside Swallow Evaluation General Reports Dysphagia Yes Onset of Dysphagia few months ago Reported Difficult Consistencies Thin Liquids Swallowing Worsening Gradually Meal Observed Breakfast History of Dysphagia Yes History of Pneumonia No Intake Method Prior to Swallow Oral Evaluation Diet Prior to Swallow Evaluation Regular, Level 7 Liquid Consistency Prior to Swallow Thin (0) Evaluation Cognition During Swallowing Alert,Distractible,Eats Quickly,Impulsive Self-Feeding Behaviors Needs Set-Up Assist,Spills Food Orthodontic/Dental Appliances Edentulous Consistency Solid Consistency Other Swallow Amount toast and hot cereal Method of Presentation Spoon Behaviors Observed Multiple Swallows Used,Oral Residue,Shortness of Breath Occurrence of Coughing None Vocal Quality After Swallowing Clear Swallow Palpation Results Delayed Triggering,Reduced Laryngeal Elevation Mildly Thick 5 mL Other Swallow Amount nectar level 2 water Method of Presentation Cup Behaviors Observed Shortness of Breath Occurrence of Coughing None Vocal Quality After Swallowing Clear Swallow Palpation Results Delayed Triggering,Reduced Laryngeal Elevation Thin Uncontrolled 1
--- NOTE | 2022-03-13 10:23 | PC.NURSE ---
IV fluids discontinued per [employer].
[2022-03-13 10:29] LABS: NT Pro B Type Natriuretic Pept 1306 pg/mL (0-125)
--- NOTE | 2022-03-13 11:01 | WPDPN ---
Progress Note: A&P Assessment and Plan (1) Weakness: Code(s): R53.1 - Weakness Status: Acute Assessment and Plan: PT/OT evaluate and treat Adequated nutrition and hydration (2) Candidiasis of other urogenital sites: Code(s): B37.49 - Other urogenital candidiasis Status: Acute Assessment and Plan: resolved (3) Hyponatremia: Code(s): E87.1 - Hypo-osmolality and hyponatremia Status: Acute Assessment and Plan: fluid restriction daily weight daily labs 112KG>113.6 IV lasix + Po lasix (4) Anemia: Code(s): D64.9 - Anemia, unspecified Status: Acute Assessment and Plan: monitor hgb 11.4 type and cross match for hgb below 7 Transfuse as needed (5) Diabetes mellitus: Code(s): E11.9 - Type 2 diabetes mellitus without complications Status: Chronic Assessment and Plan: foot ulcer noted with poor healing being followed by wound clinic Following wound clinic direcetion (6) Wounds, multiple open, lower extremity: Code(s): S81.809A - Unspecified open wound, unspecified lower leg, initial encounter Status: Acute Assessment and Plan: Chronic wound following wound clinic orders Calcaneus left , medial Cleanse with Soap and water every Other day Pain periwound weekly Aquacel Extra 4 x 5 every other day apply Aquacel Extra hydro fiber into the wound bed change every other day Secondary dressing ABD pad 5 x 9 every other day cover with ABD pad change every other day secured with Kerlix roll stare or nonsterile 6 x 4.5 x 4 every other day apply Kerlix to secure dressing change every other day wound cultures were positive for Pseudomonas, Enterococcus, and staff (7) Dehydration: Code(s): E86.0 - Dehydration Status: Acute Assessment and Plan: IV saline will monitor repeat labs in the morning. (8) Dysphagia: Code(s): R13.10 - Dysphagia, unspecified Status: Acute Assessment and Plan: Speech evaluation [place] thick liquids speech will see 3x/week Subjective Date/time seen: 03/13/22 11:01 Interval history: Patient was seen by speech therapist today and recommendation is for [place] thick liquids in which he is tolerating well. She will see him Three times a week. the plan is for a swing but we will plan on swining him possible in the morning. Patient is feeling better. Still hyponatremic we matthew stop IVF and a 1x dose of Lasix. We will continue to monitor electrolytes renal function improving we will continue to monitor. Exam Narrative: GENERAL:disheveled unkept and in no acute distress. HEAD:Normocephalic EYES: PERRLA and EOMI. ENT: Nares clear, no rhinorrhea or epistaxis. Mucous membranes moist. CHEST: Clear to auscultation. No respiratory distress. HEART: Regular rate and rhythm. decreased peripheral pulses. ABDOMEN: Soft, nontender, distended, normal active bowel sounds. EXTREMITIES: Normal range of motion. 1-2+edema. left heel SKIN: Warm, dry, no rash. NEURO: No focal deficits. Alert and oriented x3. Objective Data Vital Signs Vital Signs: Vital Signs - 24 hr 03/12/22 16:40 03/12/22 23:50 03/13/22 08:00 Temperature 98.6 F 98.3 F 98.9 F Pulse Rate 71 64 81 Respiratory Rate 18 18 18 Blood Pressure 122/56 L 130/60 143/71 H Pulse Oximetry 91 94 89 L Oxygen Delivery Room Air Room Air Room Air Intake/Output Intake/Output: Intake & Output 03/10/22 03/11/22 03/12/22 03/13/22 23:59 23:59 23:59 23:59 Intake Total 1510 1830 2875 650 Balance 1510 1830 2875 650 Meds/Results Medications: Active Medications Generic Name Dose Route Start Last Admin Trade Name Freq PRN Reason Stop Dose Admin Acetaminophen 650 mg 03/09/22 18:38 Acetaminophen 325 Mg Tablet PO Q4H PRN Mild Pain (1-3) or Fever Hydrocodone Bitart/Acetaminophen 1 tab 03/09/22 18:38 03/13/22 08:43 Hydrocodone/Acetaminophen (*Crx) 5-325 Mg Tablet PO
[2022-03-13] MEDS: FUROSEMIDE INJ 20 MG/2 ML VIAL IV PUSH (11:24)
[2022-03-13 11:31] LABS: Glucose Point of Care 249 mg/dl (65-105)
[2022-03-13 16:00] VITALS: BP 114/60; PULSE 65; RESP 18; TEMP 36.6; O2SAT 89
[2022-03-13 16:44] LABS: Glucose Point of Care 226 mg/dl (65-105)
[2022-03-13] MEDS: WARFARIN (*PBKC) 2 MG TABLET 4 MG PO (17:02)
[2022-03-13 21:03] LABS: Glucose Point of Care 273 mg/dl (65-105)
[2022-03-14] VITALS: BP 92/51; PULSE 61; RESP 18; TEMP 36.4; O2SAT 99
[2022-03-14 05:05] LABS: Hematocrit 39.9 % (37.0-46.0); Hemoglobin 11.8 g/dL (12.4-15.3); Mean Corpuscular HGB Conc 29.6 g/dL (32.0-36.0); Mean Corpuscular Hemoglobin 23.9 pg (27.0-31.0); Mean Corpuscular Volume 80.8 fL (78.0-102.0); Mean Platelet Volume 11.4 fl (8.7-11.0); Platelet Count Result 156 K/mm3 (150-420); Red Blood Count 4.94 M/mm3 (4.70-6.10); Red Cell Distribution Width 19.9 % (11.6-14.4); White Blood Count 9.6 K/mm3 (4.8-10.8)
[2022-03-14 05:17] LABS: Anion Gap 3 mmol/L (8-16); Blood Urea Nitrogen 32 mg/dL (7-18); Calcium 8.7 mg/dL (8.5-10.1); Carbon Dioxide 34 mmol/L (21-32); Chloride 97 mmol/L (98-108); Estimated CRCL calculation 60 ml/min; Estimated Glomerular Filt Rate 59; Glucose 165 mg/dL (70-99); Osmolality Calculated 288 mOsm/kg (285-295); Potassium 5.4 mmol/L (3.5-5.1); Sodium 134 mmol/L (136-145)
[2022-03-14 05:18] LABS: INR 1.9; Prothrombin Time 19.3 Seconds (9.50-12.10)
[2022-03-14 05:45] VITALS: O2SAT 93
[2022-03-14 08:00] VITALS: BP 112/74; PULSE 78; RESP 18; TEMP 36.6; O2SAT 99
[2022-03-14 08:14] LABS: Glucose Point of Care 163 mg/dl (65-105)
[2022-03-14] MEDS: INSULIN HUMAN ISOPHAN/REGULAR 70/30 (*BKC) 100 UNITS/ML 40 UNITS SUB-Q ×2 (08:33→16:58)
[2022-03-14] MEDS: FUROSEMIDE 40 MG TABLET PO (08:34)
[2022-03-14] MEDS: lisinopriL 20 MG TABLET PO (08:34)
[2022-03-14] MEDS: GABAPENTIN 300 MG CAPSULE PO ×3 (08:35→16:57)
[2022-03-14] MEDS: diazePAM (*CRX) 5 MG TABLET 10 MG PO ×3 (08:35→16:57)
[2022-03-14] MEDS: OXYBUTYNIN CHLORIDE 5 MG TABLET PO ×2 (08:35→16:57)
--- NOTE | 2022-03-14 11:16 | WPDPN ---
Progress Note: A&P Assessment and Plan (1) Weakness: Code(s): R53.1 - Weakness Status: Acute Assessment and Plan: PT/OT evaluate and treat Adequated nutrition and hydration (2) Candidiasis of other urogenital sites: Code(s): B37.49 - Other urogenital candidiasis Status: Acute Assessment and Plan: resolved (3) Hyponatremia: Code(s): E87.1 - Hypo-osmolality and hyponatremia Status: Acute Assessment and Plan: fluid restriction daily weight daily labs 112KG>113.6>111.4 IV lasix + Po lasix (4) Anemia: Code(s): D64.9 - Anemia, unspecified Status: Acute Assessment and Plan: monitor hgb 11.4 type and cross match for hgb below 7 Transfuse as needed (5) Diabetes mellitus: Code(s): E11.9 - Type 2 diabetes mellitus without complications Status: Chronic Assessment and Plan: foot ulcer noted with poor healing being followed by wound clinic Following wound clinic direcetion (6) Wounds, multiple open, lower extremity: Code(s): S81.809A - Unspecified open wound, unspecified lower leg, initial encounter Status: Acute Assessment and Plan: Chronic wound following wound clinic orders Calcaneus left , medial Cleanse with Soap and water every Other day Pain periwound weekly Aquacel Extra 4 x 5 every other day apply Aquacel Extra hydro fiber into the wound bed change every other day Secondary dressing ABD pad 5 x 9 every other day cover with ABD pad change every other day secured with Kerlix roll stare or nonsterile 6 x 4.5 x 4 every other day apply Kerlix to secure dressing change every other day wound cultures were positive for Pseudomonas, Enterococcus, and staff (7) Dehydration: Code(s): E86.0 - Dehydration Status: Acute Assessment and Plan: IV saline will monitor repeat labs in the morning. (8) Dysphagia: Code(s): R13.10 - Dysphagia, unspecified Status: Acute Assessment and Plan: Speech evaluation [place] thick liquids speech will see 3x/week (9) Hyperkalemia: Code(s): E87.5 - Hyperkalemia Status: Acute Assessment and Plan: monitor labs Potassium 5.4 Subjective Date/time seen: 03/14/22 11:16 Interval history: Patient up in recliner chair. Patient yesterday was sating in the high 80's and she was placed on 2 liters of oxygen today he is 99% on 2l with no respiratory distress but potassium is high and sodium is normal the plan is to swing patient in the morning to participate with therapy. Patient informs me he has a CPAP at home that he sometimes uses but not often Sleep apnea he obviously has been diagnosed with . Exam Narrative: GENERAL:disheveled unkept and in no acute distress. HEAD:Normocephalic EYES: PERRLA and EOMI. ENT: Nares clear, no rhinorrhea or epistaxis. Mucous membranes moist. CHEST: Clear to diminshed auscultation. No respiratory distress. HEART: Regular rate and rhythm. decreased peripheral pulses. ABDOMEN: Soft, nontender, distended, normal active bowel sounds. EXTREMITIES: Normal range of motion. 1+edema. left heel sores on legs SKIN: Warm, dry, no rash. NEURO: No focal deficits. Alert and oriented x3. Objective Data Vital Signs Vital Signs: Vital Signs - 24 hr 03/13/22 16:00 03/14/22 00:00 03/14/22 08:00 Temperature 97.8 F 97.6 F 98 F Pulse Rate 65 61 78 Respiratory Rate 18 18 18 Blood Pressure 114/60 92/51 L 112/74 Pulse Oximetry 89 L 99 99 Oxygen Delivery Room Air Nasal Cannula Nasal Cannula Oxygen Flow Rate 2 2 Intake/Output Intake/Output: Intake & Output 03/11/22 03/12/22 03/13/22 03/14/22 23:59 23:59 23:59 23:59 Intake Total 1830 2875 1490 450 Output Total 500 Balance 1830 2875 990 450 Meds/Results Medications: Active Medications Generic Name Dose Route Start Last Admin Trade Name Freq PRN Reason Stop Dose Admin Acetaminophen 650 mg 03/09/22 18:38
[2022-03-14 12:00] LABS: Glucose Point of Care 199 mg/dl (65-105)
[2022-03-14 16:00] VITALS: BP 112/70; PULSE 78; RESP 18; TEMP 36.6; O2SAT 94
[2022-03-14 16:50] LABS: Glucose Point of Care 182 mg/dl (65-105)
[2022-03-14] MEDS: WARFARIN (*PBKC) 2 MG TABLET 4 MG PO (17:03)
[2022-03-14] MEDS: traMADol HCL (*CRX) 25 MG TABLET PO (20:23)
[2022-03-14 21:13] LABS: Glucose Point of Care 197 mg/dl (65-105)
[2022-03-15] VITALS: BP 92/49; PULSE 67; RESP 18; TEMP 36.7; O2SAT 93
[2022-03-15 04:53] LABS: INR 2.8; Prothrombin Time 27.8 Seconds (9.50-12.10)
[2022-03-15 07:46] LABS: Glucose Point of Care 128 mg/dl (65-105)
[2022-03-15 08:00] VITALS: BP 107/63; PULSE 69; RESP 18; TEMP 36.6; O2SAT 93
[2022-03-15 08:24] LABS: Hematocrit 35.4 % (37.0-46.0); Hemoglobin 10.5 g/dL (12.4-15.3); Mean Corpuscular HGB Conc 29.7 g/dL (32.0-36.0); Mean Corpuscular Hemoglobin 23.5 pg (27.0-31.0); Mean Corpuscular Volume 79.4 fL (78.0-102.0); Mean Platelet Volume 9.8 fl (8.7-11.0); Platelet Count Result 311 K/mm3 (150-420); Red Blood Count 4.46 M/mm3 (4.70-6.10); Red Cell Distribution Width 19.5 % (11.6-14.4); White Blood Count 8.9 K/mm3 (4.8-10.8)
[2022-03-15 08:30] LABS: Anion Gap 2 mmol/L (8-16); Blood Urea Nitrogen 32 mg/dL (7-18); Calcium 8.6 mg/dL (8.5-10.1); Carbon Dioxide 34 mmol/L (21-32); Chloride 96 mmol/L (98-108); Estimated CRCL calculation 66 ml/min; Estimated Glomerular Filt Rate > 60; Glucose 144 mg/dL (70-99); Osmolality Calculated 283 mOsm/kg (285-295); Potassium 4.7 mmol/L (3.5-5.1); Sodium 132 mmol/L (136-145)
[2022-03-15] MEDS: OXYBUTYNIN CHLORIDE 5 MG TABLET PO (08:42)
[2022-03-15] MEDS: FUROSEMIDE 40 MG TABLET PO (08:42)
[2022-03-15] MEDS: lisinopriL 20 MG TABLET PO (08:42)
[2022-03-15] MEDS: diazePAM (*CRX) 5 MG TABLET 10 MG PO (08:42)
[2022-03-15] MEDS: GABAPENTIN 300 MG CAPSULE PO (08:42)
[2022-03-15] MEDS: INSULIN HUMAN ISOPHAN/REGULAR 70/30 (*BKC) 100 UNITS/ML 40 UNITS SUB-Q (08:42)
--- NOTE | 2022-03-15 09:39 | PM.DS ---
DS: Admitting Diagnosis Discharge Date 03/15/2021 Admitting Diagnosis Weakness, Hyponatremia , UTI DS: Discharge Diagnosis Discharge Diagnosis (1) Weakness: Code(s): R53.1 - Weakness Status: Acute Assessment and Plan: PT/OT evaluate and treat Adequated nutrition and hydration (2) Candidiasis of other urogenital sites: Code(s): B37.49 - Other urogenital candidiasis Status: Acute Assessment and Plan: resolved (3) Hyponatremia: Code(s): E87.1 - Hypo-osmolality and hyponatremia Status: Acute Assessment and Plan: fluid restriction daily weight daily labs 132 (4) Anemia: Code(s): D64.9 - Anemia, unspecified Status: Acute Assessment and Plan: monitor hgb 11.4 type and cross match for hgb below 7 Transfuse as needed (5) Diabetes mellitus: Code(s): E11.9 - Type 2 diabetes mellitus without complications Status: Chronic Assessment and Plan: foot ulcer noted with poor healing being followed by wound clinic Following wound clinic direcetion (6) Wounds, multiple open, lower extremity: Code(s): S81.809A - Unspecified open wound, unspecified lower leg, initial encounter Status: Acute Assessment and Plan: Chronic wound following wound clinic orders Calcaneus left , medial Cleanse with Soap and water every Other day Pain periwound weekly Aquacel Extra 4 x 5 every other day apply Aquacel Extra hydro fiber into the wound bed change every other day Secondary dressing ABD pad 5 x 9 every other day cover with ABD pad change every other day secured with Kerlix roll stare or nonsterile 6 x 4.5 x 4 every other day apply Kerlix to secure dressing change every other day wound cultures were positive for Pseudomonas, Enterococcus, and staff (7) Dehydration: Code(s): E86.0 - Dehydration Status: Acute Assessment and Plan: IV saline will monitor repeat labs in the morning. (8) Dysphagia: Code(s): R13.10 - Dysphagia, unspecified Status: Acute Assessment and Plan: Speech evaluation [place] thick liquids speech will see 3x/week (9) Hyperkalemia: Code(s): E87.5 - Hyperkalemia Status: Acute Assessment and Plan: monitor labs 5.6>4.7 ready to swing today DS: Summary Hospital Course Reason for hospitalization: Weakness, Hyponatremia, Hyperkalemia, Foot Ulcer Hospital Course: This is a 72-year-old male that has a chronic history of cellulitis, bilateral lower extremity venous stasis and left heel ulcers that is improving.? Patient has a past medical history of sleep apnea he uses the CPAP hypertension, diabetes type 2, history of osteoarthritis, he is treated with insulin and oral and agents he has had a history of coronary artery bypass grafts to the left ankle he also has hyperlipidemia, generalized anxiety.? Patient will be seen by Physical therapy and Occupational therapy for possible long-term placement or swing to see if he has a swing candidate. patient while here was treated with IV antibiotics for urinary tract infection was treated for some manic a garcia for yeast infection. Patient was also treated with IV fluids for his hyponatremia and acute renal failure he was found to be hyperkalemic as well patient's labs have since improved with a potassium of 4.7 a sodium of 132 BUN is 32 and creatinine is 1.09 with a white blood count of 8.9 patient's hemoglobin is 10.5 with platelets of 311. Patient received his course of IV antibiotics although he still has some leg sores due to previous fall is no marked with physical therapy at this time which she is stable medically that we will switch him to a swing bed where he can have therapy we will continue to monitor weekly labs Time Spent with Patient Time attestation: Total time spent providing and/or coordinating discharge services: Exam Narrative: GENERAL:disheveled unkept and in no acute distress.
--- NOTE | 2022-03-15 10:22 | PC.NURSE ---
Pt discharged from observation status and admitted as a swing bed @ 0902 on 03/15/22.
== END 2022-03-15 09:40 | disposition swing bed (61) ==
LOC: CHSED 18:51 → CHS2ND 18:56
PROVIDERS: Nurse Practitioner; Nurse Practitioner Family; Admitting Provider Internal Medicine; Emergency Provider Emergency Medicine; PCP Internal Medicine; Visit Provider Internal Medicine
DX: E86.0 Dehydration (principal); E87.1 Hypo-osmolality and hyponatremia; E87.5 Hyperkalemia; I48.20 Chronic atrial fibrillation, unspecified; I10 Essential (primary) hypertension; I25.10 Atherosclerotic heart disease of native coronary artery without angina pectoris; I87.2 Venous insufficiency (chronic) (peripheral); I49.5 Sick sinus syndrome; E11.51 Type 2 diabetes mellitus with diabetic peripheral angiopathy without gangrene; E11.42 Type 2 diabetes mellitus with diabetic polyneuropathy; E83.119 Hemochromatosis, unspecified; E78.2 Mixed hyperlipidemia; E66.9 Obesity, unspecified; M19.90 Unspecified osteoarthritis, unspecified site; G47.33 Obstructive sleep apnea (adult) (pediatric); R13.10 Dysphagia, unspecified; B37.49 Other urogenital candidiasis; Z95.1 Presence of aortocoronary bypass graft; Z20.822 Contact with and (suspected) exposure to COVID-19; Z79.01 Long term (current) use of anticoagulants; Z95.0 Presence of cardiac pacemaker; F17.220 Nicotine dependence, chewing tobacco, uncomplicated; E11.621 Type 2 diabetes mellitus with foot ulcer; L97.429 Non-pressure chronic ulcer of left heel and midfoot with unspecified severity
CPT/HCPCS: 36415; 71045; 80048; 80053; 81001; 82948; 83605; 83735; 83880; 85025; 85027; 85610; 86140; 87040; 87636; 92610; 93005; 96360; 96361; 96365; 96366; 96375; 97110; 97161; 97165; 97530; 97535; 99285; A9270; G0378; J0696; J1815; J1940; J7030

== ENCOUNTER 2022-03-15 09:41 | Inpatient (IN) | payer MEDICARE, SELFPAY ==
[2022-03-15 10:47] VITALS: BMI 37.3
--- NOTE | 2022-03-15 10:55 | PM.IMHP ---
H&P: HPI History of Present Illness Date/Time: 03/15/22 10:55 Chief Complaint: Weakness, foot ulcer, hyponatremia, hyperkalemia, Rehab Narrative: [place] [id number] [address] [facility] This is a 72-year-old male that was admitted recently for weakness and dehydration was treated with IV fluids as well as some IV antibiotics for for urinary tract infection patient has a foot ulcer that is being treated with bilateral venous stasis ulcer on the left heel bilateral lower extremity venous stasis and a left heel ulcer. Patient was treated with IV fluids has been eating and drinking without any difficulties been working with physical therapy while inpatient patient currently at this time is stable has a potassium of 4.7, sodium 132, BUN of 32, creatinine 1.09, white blood count 8.9, hemoglobin of 10.5 and platelets of 311. Patient's vitals have remained stable at this time we were going to switch patient from a inpatient to a swing bed. Review of Systems Review of Systems: weakness, heal ulcer All systems reviewed & are unremarkable except as noted in HPI and below PMFSH Past Medical History Medical History Acute adjustment disorder with anxiety Arthritis Atrial fibrillation (04/20/17) On chronic anticoagulation with warfarin CAD in [place] artery CAD of autologous artery bypass graft without angina Chronic venous stasis dermatitis of both lower extremities Diabetes mellitus Diabetic peripheral neuropathy Dysphagia Erectile dysfunction Essential hypertension Hemochromatosis However patient's iron studies demonstrate a low iron level (12/2020), normal transferrin (in 2019) and normal hemoglobin and now actually has what appears bandemia chronic disease Hyperkalemia Mixed hyperlipidemia (04/20/17) Obesity (BMI 35.0-39.9 without comorbidity) SAKSHI on CPAP (03/2019) CPAP of 7 Peripheral artery disease Sick sinus syndrome (04/18/17) Urge urinary incontinence Wounds, multiple open, lower extremity Surgical History Surgical History H/O right heart catheterization Hx of CABG (~2004) Four-vessel CABG Pacemaker (04/2015) Single-chamber MRI compatible pacemaker Family History Family History Father Acute myocardial infarction Son Family history of obesity Social History Social History Social History: He has been since 1997 and he he lives in his own home. He ambulates with a walker. His son comes and checks on him daily. He is retired from the [employer]. Smoking packs per day: 1 Smoking cigarettes per day: 20.0 Years smoked: 61 Smoking pack-years: 61.00 Smoking status: Current every day smoker Tobacco type: smokeless tobacco Smokeless tobacco user: chewing tobacco and snuff Second hand tobacco smoke exposure: No Additional smoking assessment comments: He smoked 3-5 cigars a day but quit smoking at age 54. Alcohol intake: unknown Substance use: never Substance use type: does not use Lack of Transportation: No Lack of Food: Never True Current Housing: I Have Housing Concerned About Future Housing: No Difficulty Paying Gas/Electric Bills: No Difficulty Paying for Meds: No Currently Unemployed: No Education: High School Diploma/GED Difficulty w/ Childcare or Family Care: No Gender identity (if verbalized by the patient): Male Sexual Orientation (if Verbalized by the Patient): Straight or Heterosexual Spiritual care concerns: No Meds Home Medications and Allergies Home Medications Medication Instructions Recorded Confirmed Type oxybutynin chloride 5 mg tablet 5 mg PO BID 01/31/19 03/15/22 History gabapentin 300 mg capsule 300 mg PO TID 07/25/20 03/15/22 History rosuvastatin 10 mg tablet 10 mg PO DAILY
[2022-03-15 11:54] LABS: Glucose Point of Care 184 mg/dl (65-105)
[2022-03-15] MEDS: diazePAM (*CRX) 5 MG TABLET 10 MG PO ×2 (13:24→17:07)
[2022-03-15] MEDS: GABAPENTIN 300 MG CAPSULE PO ×2 (13:24→17:07)
[2022-03-15 16:00] VITALS: BP 110/57; PULSE 74; RESP 16; TEMP 36.4; O2SAT 97
--- NOTE | 2022-03-15 16:10 | STIPEVAL ---
Thank you for referring Diego Marquez to [facility].? The patient is scheduled to be seen for therapy? 3-5x/week for 2 weeks. Please review, sign, date and return this plan of care BART. I agree with and certify that the following plan of care is medically necessary. Referring Physician Date Admitting Provider: Jona Pop MD Attending Provider: Jona Pop MD Referring Provider: CONNER Inpatient Evaluation Start: 03/15/22 14:43 Freq: Status: Active Protocol: Document 03/15/22 12:00 MJB (Rec: 03/15/22 14:59 [id number]) Therapy Assessment Status Assessment Status Assessment Status Evaluation Prior Level of Function Home Setting Home Type House Environmental Barriers Stairs, 2-4 Living Situation Alone [place] Responsibilities Comment The patient has assistance from his son if he needs it but completes all self care and homemaking tasks independently. Pain Assessment Timing of Pain Assessment Timing of Pain Assessment Assessment Self Report Self Report Pain Level 0 Pain Score Pain Score 0: Self Report Bedside Swallow Evaluation General Reports Dysphagia Yes Onset of Dysphagia few months ago Reported Difficult Consistencies Thin Liquids Swallowing Worsening Gradually Meal Observed Lunch History of Dysphagia Yes History of Pneumonia No Intake Method Prior to Swallow Oral Evaluation Diet Prior to Swallow Evaluation Regular, Level 7 Liquid Consistency Prior to Swallow Thin (0) Evaluation Cognition During Swallowing Eats Quickly,Impulsive Self-Feeding Behaviors Needs Set-Up Assist,Spills Food Orthodontic/Dental Appliances Edentulous Consistency Solid Consistency Other Swallow Amount cake Method of Presentation Finger/Hand Behaviors Observed Multiple Swallows Used,Oral Residue,Shortness of Breath Occurrence of Coughing After Swallow Palpation Results Delayed Triggering,Reduced Laryngeal Elevation Mildly Thick 5 mL Method of Presentation Cup Behaviors Observed Multiple Swallows Used,Oral Residue,Shortness of Breath Occurrence of Coughing None Swallow Palpation Results Delayed Triggering,Reduced Laryngeal Elevation Thin Uncontrolled 1 Other Swallow Amount water Method of Presentation Cup Behaviors Observed
[2022-03-15 16:47] LABS: Glucose Point of Care 155 mg/dl (65-105)
[2022-03-15] MEDS: OXYBUTYNIN CHLORIDE 5 MG TABLET PO (17:07)
[2022-03-15] MEDS: INSULIN HUMAN ISOPHAN/REGULAR 70/30 (*BKC) 100 UNITS/ML 40 UNITS SUB-Q (17:09)
[2022-03-15] MEDS: WARFARIN (*PBKC) 5 MG TABLET PO (17:13)
[2022-03-15 19:32] VITALS: PULSE 74; RESP 16; O2SAT 97
[2022-03-15 19:54] LABS: Glucose Point of Care 172 mg/dl (65-105)
[2022-03-16] VITALS: BP 104/45; PULSE 66; RESP 17; TEMP 36.6; O2SAT 97
[2022-03-16 05:51] LABS: INR 2.4; Prothrombin Time 24.5 Seconds (9.50-12.10)
[2022-03-16 06:22] VITALS: BMI 36.9
[2022-03-16 07:50] LABS: Glucose Point of Care 116 mg/dl (65-105)
[2022-03-16 08:00] VITALS: BP 110/60; PULSE 64; RESP 16; TEMP 36.7; O2SAT 95
[2022-03-16] MEDS: diazePAM (*CRX) 5 MG TABLET 10 MG PO ×3 (09:20→16:58)
[2022-03-16] MEDS: GABAPENTIN 300 MG CAPSULE PO ×3 (09:20→16:58)
[2022-03-16] MEDS: FUROSEMIDE 40 MG TABLET PO (09:21)
[2022-03-16] MEDS: ROSUVASTATIN 10 MG TABLET PO (09:21)
[2022-03-16] MEDS: lisinopriL 20 MG TABLET PO (09:21)
[2022-03-16] MEDS: POTASSIUM CHLORIDE 20 MEQ TABLET PO (09:21)
[2022-03-16] MEDS: OXYBUTYNIN CHLORIDE 5 MG TABLET PO ×2 (09:21→16:58)
[2022-03-16] MEDS: INSULIN HUMAN ISOPHAN/REGULAR 70/30 (*BKC) 100 UNITS/ML 40 UNITS SUB-Q (09:22)
[2022-03-16] MEDS: ALBUTEROL SULFATE (*SP) INHALER 2 PUFF INHALATION (09:22)
[2022-03-16 11:41] LABS: Glucose Point of Care 179 mg/dl (65-105)
[2022-03-16 16:40] VITALS: BP 93/47; PULSE 75; RESP 18; TEMP 36.5; O2SAT 97
[2022-03-16 17:03] LABS: Glucose Point of Care 197 mg/dl (65-105)
[2022-03-16] MEDS: WARFARIN (*PBKC) 2 MG TABLET 4 MG PO (17:05)
[2022-03-16 21:42] LABS: Glucose Point of Care 197 mg/dl (65-105)
[2022-03-16 23:55] VITALS: BP 108/51; PULSE 78; RESP 16; TEMP 36.7; O2SAT 96
[2022-03-17 08:00] VITALS: BP 101/64; PULSE 64; TEMP 36.4; O2SAT 94
[2022-03-17 08:02] LABS: Glucose Point of Care 150 mg/dl (65-105)
[2022-03-17] MEDS: POTASSIUM CHLORIDE 20 MEQ TABLET PO (09:10)
[2022-03-17] MEDS: diazePAM (*CRX) 5 MG TABLET 10 MG PO ×3 (09:13→16:45)
[2022-03-17] MEDS: ROSUVASTATIN 10 MG TABLET PO (09:13)
[2022-03-17] MEDS: OXYBUTYNIN CHLORIDE 5 MG TABLET PO ×2 (09:13→16:45)
[2022-03-17] MEDS: FUROSEMIDE 40 MG TABLET PO (09:14)
[2022-03-17] MEDS: GABAPENTIN 300 MG CAPSULE PO ×3 (09:14→16:48)
[2022-03-17] MEDS: lisinopriL 20 MG TABLET PO (09:14)
[2022-03-17] MEDS: INSULIN HUMAN ISOPHAN/REGULAR 70/30 (*BKC) 100 UNITS/ML 40 UNITS SUB-Q ×2 (09:20→16:45)
[2022-03-17 11:44] LABS: Glucose Point of Care 215 mg/dl (65-105)
[2022-03-17 16:00] VITALS: BP 110/70; PULSE 62; RESP 16; TEMP 36.6; O2SAT 94
[2022-03-17 16:46] LABS: Glucose Point of Care 184 mg/dl (65-105)
[2022-03-17] MEDS: WARFARIN (*PBKC) 2 MG TABLET 4 MG PO (16:50)
[2022-03-17 21:37] LABS: Glucose Point of Care 168 mg/dl (65-105)
--- NOTE | 2022-03-17 22:06 | PC.NURSE ---
Patient in bed resting. TV on. Call light and belongings within reach. SR up x2 with bed alarm on.
--- NOTE | 2022-03-18 00:15 | PC.NURSE ---
Pt resting quietly in bed and doesnt voice any c/o discomfort
--- NOTE | 2022-03-18 02:20 | PC.NURSE ---
Pt incontinent of urine; Pt cleaned, changed and repositioned
--- NOTE | 2022-03-18 03:40 | PC.NURSE ---
Pt states he cant sleep and is watching tv
[2022-03-18 07:19] LABS: INR 2.6; Prothrombin Time 26.2 Seconds (9.50-12.10)
[2022-03-18 07:37] LABS: Glucose Point of Care 94 mg/dl (65-105)
[2022-03-18 07:41] VITALS: BP 106/53; PULSE 60; RESP 14; TEMP 36.6; O2SAT 93
[2022-03-18] MEDS: FUROSEMIDE 40 MG TABLET PO (08:29)
[2022-03-18] MEDS: ROSUVASTATIN 10 MG TABLET PO (08:29)
[2022-03-18] MEDS: GABAPENTIN 300 MG CAPSULE PO ×3 (08:29→17:04)
[2022-03-18] MEDS: OXYBUTYNIN CHLORIDE 5 MG TABLET PO ×2 (08:29→17:01)
[2022-03-18] MEDS: diazePAM (*CRX) 5 MG TABLET 10 MG PO ×3 (08:29→17:00)
[2022-03-18] MEDS: POTASSIUM CHLORIDE 20 MEQ TABLET PO (08:30)
[2022-03-18] MEDS: lisinopriL 20 MG TABLET PO (08:30)
[2022-03-18] MEDS: INSULIN HUMAN ISOPHAN/REGULAR 70/30 (*BKC) 100 UNITS/ML 40 UNITS SUB-Q ×2 (08:32→17:06)
[2022-03-18 11:51] LABS: Glucose Point of Care 211 mg/dl (65-105)
[2022-03-18 16:00] VITALS: BP 100/52; PULSE 78; RESP 14; TEMP 36.4; O2SAT 96
[2022-03-18 16:49] LABS: Glucose Point of Care 227 mg/dl (65-105)
[2022-03-18] MEDS: WARFARIN (*PBKC) 2 MG TABLET 4 MG PO (17:01)
[2022-03-18 19:45] VITALS: PULSE 78; RESP 14; O2SAT 96
[2022-03-18 20:18] LABS: Glucose Point of Care 175 mg/dl (65-105)
[2022-03-18 23:55] VITALS: BP 96/45; PULSE 61; RESP 17; TEMP 36.7; O2SAT 96
[2022-03-19 05:44] LABS: INR 2.7; Prothrombin Time 27.7 Seconds (9.50-12.10)
[2022-03-19 06:00] VITALS: BMI 36.6
[2022-03-19 07:40] VITALS: BP 90/52; PULSE 65; RESP 18; TEMP 36.6; O2SAT 92
[2022-03-19 08:12] LABS: Glucose Point of Care 102 mg/dl (65-105)
[2022-03-19] MEDS: POTASSIUM CHLORIDE 20 MEQ TABLET PO (09:31)
[2022-03-19] MEDS: diazePAM (*CRX) 5 MG TABLET 10 MG PO ×3 (09:31→17:20)
[2022-03-19] MEDS: GABAPENTIN 300 MG CAPSULE PO ×3 (09:32→17:20)
[2022-03-19] MEDS: FUROSEMIDE 40 MG TABLET PO (09:32)
[2022-03-19] MEDS: OXYBUTYNIN CHLORIDE 5 MG TABLET PO ×2 (09:32→17:20)
[2022-03-19] MEDS: ROSUVASTATIN 10 MG TABLET PO (09:32)
--- NOTE | 2022-03-19 10:41 | PM.EVENT ---
Event Note Event Note Event Note: was informed by nursing staff the patient had an upset stomach. Patient notes that when he woke up this morning his stomach was upset but after he had a bowel movement he was okay. Will add Pepcid to his regimen for upset stomach.
[2022-03-19 11:52] LABS: Glucose Point of Care 197 mg/dl (65-105)
[2022-03-19 16:00] VITALS: BP 113/58; PULSE 64; RESP 16; TEMP 36.7; O2SAT 98
[2022-03-19 16:57] LABS: Glucose Point of Care 204 mg/dl (65-105)
[2022-03-19] MEDS: WARFARIN (*PBKC) 5 MG TABLET PO (17:21)
--- NOTE | 2022-03-19 17:25 | PC.NURSE ---
Held patient's 40u 70/30. Blood glucose 204 and sliding scale dose of 4 units given. Patient's diet is carb controlled, unlike at home.
[2022-03-19 20:18] LABS: Glucose Point of Care 215 mg/dl (65-105)
[2022-03-19 23:03] VITALS: BP 84/50; PULSE 60; RESP 20; TEMP 36.7; O2SAT 97
[2022-03-20 05:24] LABS: INR 2.5; Prothrombin Time 25.5 Seconds (9.50-12.10)
[2022-03-20 08:00] VITALS: BP 110/60; PULSE 65; RESP 16; TEMP 36.6; O2SAT 96
[2022-03-20 08:04] LABS: Glucose Point of Care 166 mg/dl (65-105)
[2022-03-20] MEDS: diazePAM (*CRX) 5 MG TABLET 10 MG PO ×3 (09:23→18:01)
[2022-03-20] MEDS: lisinopriL 20 MG TABLET PO (09:23)
[2022-03-20] MEDS: ROSUVASTATIN 10 MG TABLET PO (09:23)
[2022-03-20] MEDS: FUROSEMIDE 40 MG TABLET PO (09:23)
[2022-03-20] MEDS: POTASSIUM CHLORIDE 20 MEQ TABLET PO (09:23)
[2022-03-20] MEDS: OXYBUTYNIN CHLORIDE 5 MG TABLET PO ×2 (09:23→18:02)
[2022-03-20] MEDS: GABAPENTIN 300 MG CAPSULE PO ×3 (09:24→18:02)
[2022-03-20] MEDS: INSULIN HUMAN ISOPHAN/REGULAR 70/30 (*BKC) 100 UNITS/ML 40 UNITS SUB-Q (09:28)
[2022-03-20 12:33] LABS: Glucose Point of Care 196 mg/dl (65-105)
[2022-03-20 16:40] VITALS: BP 94/63; PULSE 60; RESP 18; TEMP 36.2; O2SAT 95
[2022-03-20 17:08] LABS: Glucose Point of Care 156 mg/dl (65-105)
[2022-03-20] MEDS: WARFARIN (*PBKC) 2 MG TABLET 4 MG PO (18:01)
[2022-03-20 20:13] LABS: Glucose Point of Care 214 mg/dl (65-105)
[2022-03-20 23:01] VITALS: BP 92/56; PULSE 68; RESP 17; TEMP 36.6; O2SAT 97
[2022-03-21 05:48] LABS: INR 2.8; Prothrombin Time 27.8 Seconds (9.50-12.10)
[2022-03-21 07:57] LABS: Glucose Point of Care 147 mg/dl (65-105)
[2022-03-21 08:00] VITALS: BP 110/60; PULSE 66; RESP 16; TEMP 36.4; O2SAT 97
[2022-03-21] MEDS: lisinopriL 20 MG TABLET PO (09:11)
[2022-03-21] MEDS: diazePAM (*CRX) 5 MG TABLET 10 MG PO ×3 (09:11→17:50)
[2022-03-21] MEDS: GABAPENTIN 300 MG CAPSULE PO ×3 (09:11→17:51)
[2022-03-21] MEDS: ROSUVASTATIN 10 MG TABLET PO (09:11)
[2022-03-21] MEDS: FUROSEMIDE 40 MG TABLET PO (09:11)
[2022-03-21] MEDS: POTASSIUM CHLORIDE 20 MEQ TABLET PO (09:12)
[2022-03-21] MEDS: OXYBUTYNIN CHLORIDE 5 MG TABLET PO ×2 (09:12→17:51)
[2022-03-21] MEDS: INSULIN HUMAN ISOPHAN/REGULAR 70/30 (*BKC) 100 UNITS/ML 40 UNITS SUB-Q (09:14)
[2022-03-21 11:59] LABS: Glucose Point of Care 185 mg/dl (65-105)
[2022-03-21 16:40] VITALS: BP 91/52; PULSE 60; RESP 18; TEMP 36.5; O2SAT 98
[2022-03-21 17:09] LABS: Glucose Point of Care 132 mg/dl (65-105)
[2022-03-21] MEDS: WARFARIN (*PBKC) 2 MG TABLET 4 MG PO (17:51)
[2022-03-21 20:36] LABS: Glucose Point of Care 183 mg/dl (65-105)
[2022-03-21 23:01] VITALS: BP 99/55; PULSE 63; RESP 16; TEMP 36.4; O2SAT 92
[2022-03-22 05:10] LABS: Prothrombin Time 29.8 Seconds (9.50-12.10)
[2022-03-22 05:14] LABS: Hematocrit 31.8 % (37.0-46.0); Hemoglobin 9.6 g/dL (12.4-15.3); Mean Corpuscular HGB Conc 30.2 g/dL (32.0-36.0); Mean Corpuscular Hemoglobin 23.9 pg (27.0-31.0); Mean Corpuscular Volume 79.1 fL (78.0-102.0); Mean Platelet Volume 10.2 fl (8.7-11.0); Platelet Count Result 210 K/mm3 (150-420); Red Blood Count 4.02 M/mm3 (4.70-6.10); Red Cell Distribution Width 18.9 % (11.6-14.4); White Blood Count 6.4 K/mm3 (4.8-10.8)
[2022-03-22 05:15] LABS: Alanine Aminotransferase 17 U/L (16-63); Alkaline Phosphatase 83 U/L (46-116); Anion Gap 6 mmol/L (8-16); Aspartate Amino Transferase 18 U/L (15-37); Bilirubin,Total 0.3 mg/dL (0.00-1.00); Blood Urea Nitrogen 33 mg/dL (7-18); Carbon Dioxide 31 mmol/L (21-32); Chloride 97 mmol/L (98-108); Estimated CRCL calculation 69 ml/min; Estimated Glomerular Filt Rate > 60; Glucose 155 mg/dL (70-99); Magnesium 1.8 mg/dL (1.8-2.4); Osmolality Calculated 288 mOsm/kg (285-295); Potassium 5.3 mmol/L (3.5-5.1); Sodium 134 mmol/L (136-145); Total Protein 7.1 g/dL (6.4-8.2)
[2022-03-22 08:00] VITALS: BP 84/48; PULSE 60; RESP 14; TEMP 36.4; O2SAT 98
[2022-03-22] MEDS: GABAPENTIN 300 MG CAPSULE PO ×3 (09:01→16:45)
[2022-03-22] MEDS: OXYBUTYNIN CHLORIDE 5 MG TABLET PO ×2 (09:01→16:45)
[2022-03-22] MEDS: POTASSIUM CHLORIDE 20 MEQ TABLET PO (09:01)
[2022-03-22] MEDS: FUROSEMIDE 40 MG TABLET PO (09:02)
[2022-03-22] MEDS: diazePAM (*CRX) 5 MG TABLET 10 MG PO ×3 (09:02→16:45)
[2022-03-22] MEDS: lisinopriL 20 MG TABLET PO (09:02)
[2022-03-22] MEDS: ROSUVASTATIN 10 MG TABLET PO (09:02)
[2022-03-22] MEDS: INSULIN HUMAN ISOPHAN/REGULAR 70/30 (*BKC) 100 UNITS/ML 40 UNITS SUB-Q ×2 (09:03→16:46)
--- NOTE | 2022-03-22 09:40 | WPDPN ---
Progress Note: A&P Assessment and Plan (1) Hyperkalemia: Code(s): E87.5 - Hyperkalemia Status: Acute Assessment and Plan: potassium 5.3 hold potassium x3 day (2) Dysphagia: Code(s): R13.10 - Dysphagia, unspecified Status: Acute Assessment and Plan: Speech will see 3xweek (3) Wounds, multiple open, lower extremity: Code(s): S81.809A - Unspecified open wound, unspecified lower leg, initial encounter Status: Acute Assessment and Plan: Chronic wound following wound clinic orders Calcaneus left , medial Cleanse with Soap and water every Other day Pain periwound weekly Aquacel Extra 4 x 5 every other day apply Aquacel Extra hydro fiber into the wound bed change every other day Secondary dressing ABD pad 5 x 9 every other day cover with ABD pad change every other day secured with Kerlix roll stare or nonsterile 6 x 4.5 x 4 every other day apply Kerlix to secure dressing change every other da (4) Weakness: Code(s): R53.1 - Weakness Status: Acute Assessment and Plan: Physical therapy eval Speech therapy eval and treat OT evaluate and treat (5) Hyponatremia: Code(s): E87.1 - Hypo-osmolality and hyponatremia Status: Acute Assessment and Plan: NA 134 Subjective Date/time seen: 03/22/22 09:40 Interval history: patient has no complaints at this time. He notes that his pain is controlled he is tolerating his meals he is having regular bowel movements in physical therapy occupational therapy is going well. The patient denies SOB, CP, palpitation, extremity numbness, lightheadedness, dizziness, constipation, diarrhea, chills, or fever. Review of Systems Review of Systems: All systems reviewed & are unremarkable except as noted in HPI and below Exam Narrative: GENERAL:disheveled unkept? and in no acute distress. HEAD:Normocephalic EYES: PERRLA and EOMI. ENT:? Nares clear, no rhinorrhea or epistaxis. Mucous membranes moist. CHEST:? Clear to? diminshed auscultation. No respiratory distress. HEART:? Regular rate and rhythm.? decreased peripheral pulses. ABDOMEN:? Soft, nontender, distended, normal active bowel sounds. EXTREMITIES: Normal range of motion. 1+edema. left heel sores on legs SKIN:? Warm, dry, no rash. NEURO: No focal deficits. Alert and oriented x3. Objective Data Vital Signs Vital Signs: Vital Signs - 24 hr 03/21/22 16:40 03/21/22 23:01 03/22/22 08:00 Temperature 97.7 F 97.6 F 97.6 F Pulse Rate 60 63 60 Respiratory Rate 18 16 14 Blood Pressure 91/52 L 99/55 L 84/48 L Pulse Oximetry 98 92 98 Oxygen Delivery Room Air Room Air Room Air Intake/Output Intake/Output: Intake & Output 03/19/22 03/20/22 03/21/22 03/22/22 23:59 23:59 23:59 23:59 Intake Total 1050 1420 1540 300 Balance 1050 1420 1540 300 Meds/Results Medications: Active Medications Generic Name Dose Route Start Last Admin Trade Name Freq PRN Reason Stop Dose Admin Acetaminophen 650 mg 03/15/22 10:50 Acetaminophen 325 Mg Tablet PO Q4H PRN Mild Pain (1-3) Or Fever Hydrocodone Bitart/Acetaminophen 1 tab 03/15/22 10:50 Hydrocodone/Acetaminophen (*Crx) 5-325 Mg Tablet PO Q6HR PRN Pain Rated 7-10 Albuterol 2 puff 03/15/22 10:50 03/16/22 09:22 Albuterol Sulfate (*Sp) Inhaler INHALATION 2 puff QID PRN Administration Shortness Of Breath Artificial Tears 1 drop 03/15/22 10:50 Artificial Tears Ophth Soln 15 Ml Bottle EACH EYE QID PRN Dry Eye(S) Bismuth Subsalicylate 524 mg 03/19/22 10:42 Bismuth Subsalicylate 262 Mg Chewable Tablet PO Q1H PRN upset stomach Dextrose 12.5 gm 03/15/22 10:51 Dextrose 50% 25 Gm/50 Ml Syringe IV PUSH PRN PRN Hypoglycemia Protocol Diazepam 10 mg 03/15/22 13:00 03/22/22 09:02 Diazepam (*Crx) 5 Mg Tablet PO 10 mg TID SUNNY Administration Furosemide 40 mg 03/16/22 09:00 03/22/22 09:02 Furosemi
[2022-03-22 11:38] LABS: Glucose Point of Care 219 mg/dl (65-105)
[2022-03-22 15:31] VITALS: BP 105/55; PULSE 88; RESP 20; TEMP 36.1; O2SAT 97
[2022-03-22] MEDS: WARFARIN (*PBKC) 5 MG TABLET PO (16:49)
[2022-03-22 16:50] LABS: Glucose Point of Care 170 mg/dl (65-105)
[2022-03-22 19:25] VITALS: PULSE 88; RESP 20; O2SAT 97
[2022-03-22 19:44] LABS: Glucose Point of Care 183 mg/dl (65-105)
[2022-03-23] VITALS: BP 93/55; PULSE 64; RESP 17; TEMP 36.3; O2SAT 97
[2022-03-23 05:59] LABS: INR 3.5
[2022-03-23 07:42] LABS: Glucose Point of Care 149 mg/dl (65-105)
[2022-03-23 08:00] VITALS: BP 92/51; PULSE 62; RESP 20; TEMP 36.1; O2SAT 98
[2022-03-23] MEDS: OXYBUTYNIN CHLORIDE 5 MG TABLET PO ×2 (08:32→17:16)
[2022-03-23] MEDS: GABAPENTIN 300 MG CAPSULE PO ×3 (08:32→17:15)
[2022-03-23] MEDS: ROSUVASTATIN 10 MG TABLET PO (08:32)
[2022-03-23] MEDS: FUROSEMIDE 40 MG TABLET PO (08:32)
[2022-03-23] MEDS: diazePAM (*CRX) 5 MG TABLET 10 MG PO ×3 (08:32→17:15)
[2022-03-23] MEDS: INSULIN HUMAN ISOPHAN/REGULAR 70/30 (*BKC) 100 UNITS/ML 40 UNITS SUB-Q ×2 (08:32→17:27)
[2022-03-23] MEDS: HYDROcodone/acetaminophen (*CRX) 5-325 MG TABLET 1 TAB PO (10:47)
[2022-03-23 11:42] LABS: Glucose Point of Care 186 mg/dl (65-105)
[2022-03-23 16:00] VITALS: BP 122/50; PULSE 60; RESP 20; TEMP 36.3; O2SAT 99
[2022-03-23 16:34] LABS: Glucose Point of Care 246 mg/dl (65-105)
--- NOTE | 2022-03-23 17:55 | PM.EVENT ---
Event Note Event Note Event Note: warfarin on hold util 03/26/2022 continue inr and resume when appropriate.
[2022-03-23 20:07] LABS: Glucose Point of Care 177 mg/dl (65-105)
[2022-03-24] VITALS: BP 115/73; PULSE 86; RESP 18; TEMP 35.9; O2SAT 95
[2022-03-24 05:25] LABS: INR 3.5; Prothrombin Time 34.7 Seconds (9.50-12.10)
[2022-03-24 07:43] LABS: Glucose Point of Care 119 mg/dl (65-105)
[2022-03-24 08:00] VITALS: BP 82/54; PULSE 60; RESP 14; TEMP 36.2; O2SAT 95
[2022-03-24] MEDS: FUROSEMIDE 40 MG TABLET PO (09:47)
[2022-03-24] MEDS: diazePAM (*CRX) 5 MG TABLET 10 MG PO ×3 (09:47→17:09)
[2022-03-24] MEDS: OXYBUTYNIN CHLORIDE 5 MG TABLET PO ×2 (09:47→17:10)
[2022-03-24] MEDS: GABAPENTIN 300 MG CAPSULE PO ×3 (09:47→17:10)
[2022-03-24] MEDS: ROSUVASTATIN 10 MG TABLET PO (09:47)
[2022-03-24] MEDS: INSULIN HUMAN ISOPHAN/REGULAR 70/30 (*BKC) 100 UNITS/ML 40 UNITS SUB-Q ×2 (09:49→17:11)
[2022-03-24] MEDS: HYDROcodone/acetaminophen (*CRX) 5-325 MG TABLET 1 TAB PO (12:00)
[2022-03-24 12:01] LABS: Glucose Point of Care 170 mg/dl (65-105)
[2022-03-24 16:00] VITALS: BP 116/72; PULSE 72; RESP 16; TEMP 36.6; O2SAT 95
[2022-03-24 16:38] LABS: Glucose Point of Care 195 mg/dl (65-105)
[2022-03-24 20:44] LABS: Glucose Point of Care 276 mg/dl (65-105)
[2022-03-24 23:57] VITALS: BP 91/56; PULSE 60; TEMP 36.8; O2SAT 98
[2022-03-25 05:23] LABS: INR 2.8; Prothrombin Time 27.9 Seconds (9.50-12.10)
[2022-03-25 07:50] LABS: Glucose Point of Care 119 mg/dl (65-105)
[2022-03-25 08:00] VITALS: BP 94/54; PULSE 59; RESP 16; TEMP 36.2; O2SAT 100
[2022-03-25] MEDS: OXYBUTYNIN CHLORIDE 5 MG TABLET PO ×2 (09:04→17:34)
[2022-03-25] MEDS: GABAPENTIN 300 MG CAPSULE PO ×3 (09:04→17:34)
[2022-03-25] MEDS: ROSUVASTATIN 10 MG TABLET PO (09:05)
[2022-03-25] MEDS: diazePAM (*CRX) 5 MG TABLET 10 MG PO ×3 (09:05→20:07)
[2022-03-25] MEDS: FUROSEMIDE 40 MG TABLET PO (09:05)
[2022-03-25] MEDS: INSULIN HUMAN ISOPHAN/REGULAR 70/30 (*BKC) 100 UNITS/ML 40 UNITS SUB-Q (09:07)
[2022-03-25] MEDS: HYDROcodone/acetaminophen (*CRX) 5-325 MG TABLET 1 TAB PO (10:46)
[2022-03-25 11:40] LABS: Glucose Point of Care 203 mg/dl (65-105)
[2022-03-25 16:00] VITALS: BP 83/52; PULSE 60; RESP 17; TEMP 36.1; O2SAT 97
[2022-03-25 17:02] LABS: Glucose Point of Care 137 mg/dl (65-105)
[2022-03-25 19:54] VITALS: PULSE 60; RESP 17; O2SAT 97
[2022-03-25 20:11] LABS: Glucose Point of Care 176 mg/dl (65-105)
[2022-03-26] VITALS: BP 115/64; PULSE 62; RESP 16; TEMP 36.2; O2SAT 99
[2022-03-26 06:04] LABS: INR 2.2
[2022-03-26 07:48] LABS: Glucose Point of Care 138 mg/dl (65-105)
[2022-03-26 08:00] VITALS: BP 112/47; PULSE 64; RESP 15; TEMP 36.2; O2SAT 96
--- NOTE | 2022-03-26 08:57 | PM.DS ---
DS: Admitting Diagnosis Discharge Date 03/26/2022 Admitting Diagnosis Swing BED Rehab, UTI, WEakness, Diabetes DS: Discharge Diagnosis Discharge Diagnosis (1) Hyperkalemia: Code(s): E87.5 - Hyperkalemia Status: Acute Assessment and Plan: potassium 5.3 hold potassium x3 day (2) Dysphagia: Code(s): R13.10 - Dysphagia, unspecified Status: Acute Assessment and Plan: Speech will see 3xweek (3) Wounds, multiple open, lower extremity: Code(s): S81.809A - Unspecified open wound, unspecified lower leg, initial encounter Status: Acute Assessment and Plan: Chronic wound following wound clinic orders Calcaneus left , medial Cleanse with Soap and water every Other day Pain periwound weekly Aquacel Extra 4 x 5 every other day apply Aquacel Extra hydro fiber into the wound bed change every other day Secondary dressing ABD pad 5 x 9 every other day cover with ABD pad change every other day secured with Kerlix roll stare or nonsterile 6 x 4.5 x 4 every other day apply Kerlix to secure dressing change every other da (4) Weakness: Code(s): R53.1 - Weakness Status: Acute Assessment and Plan: Physical therapy eval Speech therapy eval and treat OT evaluate and treat (5) Hyponatremia: Code(s): E87.1 - Hypo-osmolality and hyponatremia Status: Acute Assessment and Plan: NA 134 DS: Summary Hospital Course Reason for hospitalization: UTI, WEakness, REhab Hospital Course: Mr. Lemus is being discharged from Swing bed to home he was initially admitted for UTI and weakness. Patient continued to work with physical therapy and he was to follow up with home health and is on coumadin with every other day dressing changes. Patient has a chronic history of cellulitis, bilateral lower extremity venous stasis and left heel ulcers that is improving history of sleep apnea he uses the CPAP hypertension, diabetes type 2,osteoarthritis, he is treated with insulin and oral and agents he has had a history of coronary artery bypass grafts to the left ankle he also has hyperlipidemia, generalized anxiety.? Patient will be seen by Physical therapy and Occupational therapy as he has swung at this time he is having every other day dressing changes and will be followed by home health and wound clinic. Patient will have labs drawn as a outpatient. Patient potassium is 5.3, na 134, CUN33, cr 1.01,HGB 9.6, PLT, 210 Time Spent with Patient Time attestation: Total time spent providing and/or coordinating discharge services: Exam Narrative: GENERAL:disheveled unkept? and in no acute distress. HEAD:Normocephalic EYES: PERRLA and EOMI. ENT:? Nares clear, no rhinorrhea or epistaxis. Mucous membranes moist. CHEST:? Clear to? diminshed auscultation. No respiratory distress. HEART:? Regular rate and rhythm.? decreased peripheral pulses. ABDOMEN:? Soft, nontender, distended, normal active bowel sounds. EXTREMITIES: Normal range of motion. 1+edema. left heel sores on legs SKIN:? Warm, dry, no rash. NEURO: No focal deficits. Alert and oriented x3. DS: Data Data Completed and Pending Labs on day of discharge: Labs from last 24 hours 03/26/22 03/26/22 03/25/22 07:42 05:28 20:06 PT 23.0 H INR 2.2 POC Capillary Glucose 138 H 176 H 03/25/22 03/25/22 16:59 11:34 PT INR POC Capillary Glucose 137 H 203 H Discharge Plan Discharge Attending physician on discharge: Demarcus Pop Consulting providers: Vickie Dueñas ; Jeff Dorado Discharging Clinician: Vickie Dueñas Patient Disposition: Home Health Service Activity: may shower and as tolerated Diet: diabetic Wound Care Instructions: follow printed instructions Discharge Instructions: [facility] will provide nursing, PT and OT at home. They will call you the day prior to set up a time to come, their phone number is [phone]. RN to fax discharge sum
[2022-03-26] MEDS: GABAPENTIN 300 MG CAPSULE PO (09:33)
[2022-03-26] MEDS: FUROSEMIDE 40 MG TABLET PO (09:33)
[2022-03-26] MEDS: OXYBUTYNIN CHLORIDE 5 MG TABLET PO (09:33)
[2022-03-26] MEDS: ROSUVASTATIN 10 MG TABLET PO (09:33)
[2022-03-26] MEDS: diazePAM (*CRX) 5 MG TABLET 10 MG PO (09:33)
--- NOTE | 2022-03-26 10:30 | PC.NURSE ---
Discharge instructions reviewed with pt and pt's son. All questions answered. Pt transported via wheelchair to front of hospital for discharge.
--- NOTE | 2022-03-26 10:38 | PC.NURSE ---
Discharge orders faxed o [facility] at [phone].
--- NOTE | 2022-03-29 09:33 | PC.NURSE ---
Son states they received and understood the discharge instructions. Has no other comments.
== END 2022-03-26 10:30 | disposition home health service (06) | DRG 948 ==
PROVIDERS: Nurse Practitioner; Nurse Practitioner Family; Admitting Provider Internal Medicine; PCP Internal Medicine; Visit Provider Internal Medicine
DX: R53.1 Weakness (principal); L97.429 Non-pressure chronic ulcer of left heel and midfoot with unspecified severity; E87.1 Hypo-osmolality and hyponatremia; L97.819 Non-pressure chronic ulcer of other part of right lower leg with unspecified severity; L97.829 Non-pressure chronic ulcer of other part of left lower leg with unspecified severity; I48.20 Chronic atrial fibrillation, unspecified; E11.621 Type 2 diabetes mellitus with foot ulcer; E11.42 Type 2 diabetes mellitus with diabetic polyneuropathy; E87.5 Hyperkalemia; E78.2 Mixed hyperlipidemia; E66.9 Obesity, unspecified; I83.018 Varicose veins of right lower extremity with ulcer other part of lower leg; I83.028 Varicose veins of left lower extremity with ulcer other part of lower leg; I25.10 Atherosclerotic heart disease of native coronary artery without angina pectoris; I10 Essential (primary) hypertension; I49.5 Sick sinus syndrome; R13.10 Dysphagia, unspecified; G47.33 Obstructive sleep apnea (adult) (pediatric); F41.9 Anxiety disorder, unspecified; Z95.0 Presence of cardiac pacemaker; Z79.4 Long term (current) use of insulin; Z79.01 Long term (current) use of anticoagulants; Z95.1 Presence of aortocoronary bypass graft; Z87.891 Personal history of nicotine dependence
CPT/HCPCS: 36415; 80053; 82948; 83735; 85027; 85610; 92526; 92610; 97110; 97161; 97165; 97530; 97535; A9270; J1815

== ENCOUNTER 2022-06-03 16:37 | Observation (INO) | payer MEDICARE, SELFPAY ==
--- NOTE | ~2022-06-03 | CT_ITS ---
EXAMINATION: CT foot LT wo con DATE: 06/05/2022 07:40 INDICATION: Left foot cellulitis. TECHNIQUE: Computed tomography (CT) of the left foot was performed without intravenous contrast. Auto mated exposure control and iterative reconstruction technique were employed. The dose-length product was 934.12 mGy-cm. COMPARISON: CT 05/11/2017, radiographs 06/04/2022 FINDINGS: Pes cavus is noted. There is an old healed fracture deformity of distal tibia with malunion . There is a retained screw fragment in distal tibia. There is chronic anterior dislocation of talus with respect to distal fibula. There is advanced osteoarthritis of the ankle joint including bone vol ume loss of the talus. There is moderate osteoarthritis of subtalar joint and some of the midfoot modesta nts. There is hyperextension of the metatarsophalangeal joints and flexion of the interphalangeal modesta nts. There is mild osteoarthritis of some the interphalangeal joints. There are loose bodies in the a nkle joint. There are enthesophytes at the posterior and plantar aspects of calcaneal tuberosity. The re is an ulcer of the heel. There is severe fatty atrophy of the musculature. There is widespread rodriguez ma in the foot. IMPRESSION: 1. No evidence of osteomyelitis. 2. Polyarticular osteoarthritis, advanced at the ankle joint. Reviewed, dictated and finalized at location A.
--- NOTE | ~2022-06-03 | XR_ITS ---
EXAMINATION: XR foot LT min 3V DATE: 06/04/2022 10:20 INDICATION: Left heel ulcer. TECHNIQUE: 3 views of left foot were obtained. COMPARISON: Left foot radiographs 09/15/2021, CT 05/11/2017 FINDINGS: There is an old fracture deformity of distal tibia with 2 retained screw fragments. There i s advanced osteoarthritis of the ankle joint including bone volume loss of tibial dome. There is mode rate osteoarthritis of subtalar joint and some of the midfoot joints. Pes cavus is noted. There is do rsiflexion of the metatarsophalangeal joints and flexion of the interphalangeal joints. IMPRESSION: 1. No evidence of osteomyelitis. 2. Polyarticular osteoarthritis, advanced at the ankle joint. Reviewed, dictated and finalized at location A.
--- NOTE | ~2022-06-03 | XR_ITS ---
EXAMINATION: XR chest 1V portable INDICATION: Generalized weakness TECHNIQUE: Portable AP chest at 1736 hours COMPARISON: 03/09/2022 FINDINGS: Cardiomegaly is noted. There are minimal opacities of the mid and lower lung zones. No pleu ral effusion or pneumothorax. A single lead cardiac pacemaker of the left chest wall ends with leads in expected locations. IMPRESSION: 1. Cardiomegaly. 2. Opacities of the mid and lower lung zones, consistent with atelectasis versus pneumonia versus pul monary edema. Reviewed, dictated and finalized at location F. IMPRESSION: 1. Cardiomegaly. 2. Opacities of the mid and lower lung zones, consistent with atelectasis versu s pneumonia versus pulmonary edema.
[2022-06-03 16:40] VITALS: BP 101/61; PULSE 83; RESP 18; TEMP 37.4; O2SAT 97
--- NOTE | 2022-06-03 17:02 | ECG_ITS ---
Measurements Intervals [place] Rate: 73 P: ME: 0 QRS: -28 QRSD: 105 T: -13 QT: 365 QTc: 403 Interpretive Statements ATRIAL FIBRILLATION ELECTRONIC VENTRICULAR COMPLEXES BORDERLINE R WAVE PROGRESSION, ANTERIOR LEADS CONSIDER INFERIOR INFARCT, AGE INDETERMINATE BASELINE ARTIFACT- I, III, AVL ABNORMAL ECG COMPARED TO ECG 03/09/2022 19:00:20 NO SIGNIFICANT CHANGES Electronically Signed On 06-03-2022 22:39:40 CDT by Celso Haro D.O.
[2022-06-03] MEDS: SODIUM CHLORIDE 0.9% IV 1,000 ML 999 ML IV CONT (17:23)
[2022-06-03 17:25] VITALS: BP 111/62; PULSE 85; RESP 18; O2SAT 96
[2022-06-03 17:39] LABS: Basophils Absolute Auto 0.04 K/mm3 (0.00-0.10); Basophils Percent Auto 0.3 % (0.0-1.0); Hematocrit 36.7 % (37.0-46.0); Hemoglobin 11.8 g/dL (12.4-15.3); Immature Granulocyte Absolute 0.17 K/mm3 (0.00-0.00); Immature Granulocyte Percent A 1.1 % (0.0-0.0); Lymphocytes Absolute Auto 1.19 K/mm3 (1.10-4.50); Lymphocytes Percent Auto 7.7 % (18.0-42.0); Mean Corpuscular HGB Conc 32.2 g/dL (32.0-36.0); Mean Corpuscular Hemoglobin 24.9 pg (27.0-31.0); Mean Corpuscular Volume 77.6 fL (78.0-102.0); Mean Platelet Volume 9.9 fl (8.7-11.0); Monocytes Absolute Auto 1.33 K/mm3 (0.10-0.90); Monocytes Percent Auto 8.6 % (2.0-11.0); Neutrophils Absolute Auto 12.8 K/mm3 (1.7-7.2); Neutrophils Percent Auto 82.3 % (50.0-70.0); Platelet Count Result 185 K/mm3 (150-420); Red Blood Count 4.73 M/mm3 (4.70-6.10); Red Cell Distribution Width 19.9 % (11.6-14.4); White Blood Count 15.5 K/mm3 (4.8-10.8)
[2022-06-03 18:01] LABS: Alanine Aminotransferase 27 U/L (16-63); Albumin Level 2.7 g/dL (3.4-5.0); Alkaline Phosphatase 81 U/L (46-116); Anion Gap 10 mmol/L (8-16); Aspartate Amino Transferase 48 U/L (15-37); Bilirubin,Total 0.6 mg/dL (0.00-1.00); Blood Urea Nitrogen 54 mg/dL (7-18); Calcium 8.5 mg/dL (8.5-10.1); Carbon Dioxide 25 mmol/L (21-32); Chloride 90 mmol/L (98-108); Estimated CRCL calculation 40 ml/min; Estimated Glomerular Filt Rate 39; Glucose 220 mg/dL (70-99); NT Pro B Type Natriuretic Pept 2063 pg/mL (0-125); Osmolality Calculated 281 mOsm/kg (285-295); Potassium 4.4 mmol/L (3.5-5.1); Sodium 125 mmol/L (136-145); Total Protein 6.9 g/dL (6.4-8.2); Troponin I 45.9 ng/L (0.00-60.4)
[2022-06-03 18:02] LABS: Partial Thromboplastin Time 44.5 SEC (23.90-30.70); Prothrombin Time 20.4 Seconds (9.50-12.10)
[2022-06-03 18:10] LABS: CRP > 25.0 mg/dL (0.0-0.9)
--- NOTE | 2022-06-03 18:10 | ED.WEAKNESS ---
HPI - Weakness General Chief complaint: Weakness Stated complaint: generalized weakness in limbs Time Seen by Provider: 06/03/22 16:39 Source: patient and family Mode of arrival: wheelchair Limitations: physical limitation History of Present Illness HPI Narrative: this is a 72-year-old patient brought in by his family with some generalized weakness and shakiness was reaching for his walker and fell backward did not injure anything no loss of consciousness, patient was having low-grade fevers at home a cough that was mildly productive with no shortness of breath no chest pain no abdominal pain no dysuria. Patient has a history of chronic venous stasis lower extremities with a history of diabetic neuropathy and diabetes, with history of atrial fibrillation has a pacer in place history of CAD and obstructive sleep apnea on CPAP. Patient denies any chest pain or shortness of breath no palpitations. MD Complaint: generalized weakness Onset (ago): day(s) Duration: constant Location: generalized Migration: none Severity: moderate Quality: aching Relieving factors: none Exacerbating factors: none Related Data Home Medications Medication Instructions Recorded Confirmed oxybutynin chloride 5 mg tablet 5 mg PO BID 01/31/19 06/03/22 gabapentin 300 mg capsule 300 mg PO TID 07/25/20 06/03/22 rosuvastatin 10 mg tablet 10 mg PO DAILY 07/25/20 06/03/22 diazepam 10 mg tablet 10 mg PO TID 03/09/22 06/03/22 lisinopril 20 mg tablet 20 mg PO DAILY 03/09/22 06/03/22 potassium chloride 20 mEq 20 meq PO DAILY 03/09/22 06/03/22 tablet,extended release Allergies Allergy/AdvReac Type Severity Reaction Status Date / Time codeine Allergy Hives Verified 06/03/22 16:57 Review of Systems Review of Systems: All systems reviewed & are unremarkable except as noted in HPI and below PMFSH Past Medical History Medical History Acute adjustment disorder with anxiety Arthritis Atrial fibrillation (04/20/17) On chronic anticoagulation with warfarin CAD in [place] artery CAD of autologous artery bypass graft without angina Chronic venous stasis dermatitis of both lower extremities Diabetes mellitus Diabetic peripheral neuropathy Dysphagia Erectile dysfunction Essential hypertension Hemochromatosis However patient's iron studies demonstrate a low iron level (12/2020), normal transferrin (in 2019) and normal hemoglobin and now actually has what appears bandemia chronic disease Hyperkalemia Mixed hyperlipidemia (04/20/17) Obesity (BMI 35.0-39.9 without comorbidity) SAKSHI on CPAP (03/2019) CPAP of 7 Peripheral artery disease Sick sinus syndrome (04/18/17) Urge urinary incontinence Wounds, multiple open, lower extremity Surgical History Surgical History H/O right heart catheterization Hx of CABG (~2004) Four-vessel CABG Pacemaker (04/2015) Single-chamber MRI compatible pacemaker Family History Family History Father Acute myocardial infarction Son Family history of obesity Social History Social History Social History: He has been since 1997 and he he lives in his own home. He ambulates with a walker. His son comes and checks on him daily. He is retired from the [employer]. Smoking packs per day: 1 Smoking cigarettes per day: 20.0 Years smoked: 50 Smoking pack-years: 50.00 Smoking status: Current every day smoker Tobacco type: cigarettes Smokeless tobacco user: chewing tobacco and snuff Second hand tobacco smoke exposure: No Additional smoking assessment comments: He smoked 3-5 cigars a day but quit smoking at age 54. Alcohol intake: unknown Substance use: never Substance use type: does not use Lack of Transportation: No Lack of Food: Never True Current Housing: I Have Housing Brenda
[2022-06-03 18:20] LABS: Lactic Acid Reflex 1.3 mmol/L (0.4-2.0)
[2022-06-03 18:40] VITALS: BP 118/64; PULSE 85; RESP 18; TEMP 36.4; O2SAT 96
[2022-06-03 19:54] VITALS: BMI 37.4
--- NOTE | 2022-06-03 20:01 | ADMGEN ---
This patient, Diego Marquez Sr., was admitted to 2nd Floor Room 210-1. Patient oriented to hospital policies and general routines including ID bracelet, bed and alarms, visiting hours, pain management, procedures, bathroom and other care routines, personal items, smoking policy, room service/diet, and visiting hours. Information on how to activate the Rapid Response Team has been discussed. Patient are encouraged to report perceived risks to care and to ask questions if they do not understand what they are told or what they should do.
[2022-06-03] MEDS: SODIUM CHLORIDE 0.9% IV 1,000 ML 100 ML IV CONT (20:19)
[2022-06-03] MEDS: WARFARIN (*PBKC) 2 MG TABLET 4 MG PO (22:28)
[2022-06-03] MEDS: GABAPENTIN 300 MG CAPSULE PO (22:28)
[2022-06-03 22:39] LABS: Glucose Point of Care 241 mg/dl (65-105)
[2022-06-03 23:15] VITALS: BP 112/81; PULSE 95; RESP 15; TEMP 36.5; O2SAT 100
[2022-06-04] VITALS: PULSE 73
[2022-06-04 03:36] VITALS: PULSE 73
[2022-06-04 05:32] LABS: Basophils Absolute Auto 0.04 K/mm3 (0.00-0.10); Basophils Percent Auto 0.4 % (0.0-1.0); Eosinophils Absolute Auto 0.02 K/mm3 (0.02-0.50); Eosinophils Percent Auto 0.2 % (1.0-6.0); Hematocrit 37.6 % (37.0-46.0); Hemoglobin 11.6 g/dL (12.4-15.3); Immature Granulocyte Absolute 0.12 K/mm3 (0.00-0.00); Immature Granulocyte Percent A 1.1 % (0.0-0.0); Lymphocytes Absolute Auto 1.07 K/mm3 (1.10-4.50); Lymphocytes Percent Auto 9.6 % (18.0-42.0); Mean Corpuscular HGB Conc 30.9 g/dL (32.0-36.0); Mean Corpuscular Hemoglobin 24.2 pg (27.0-31.0); Mean Corpuscular Volume 78.5 fL (78.0-102.0); Mean Platelet Volume 9.9 fl (8.7-11.0); Monocytes Absolute Auto 1.45 K/mm3 (0.10-0.90); Neutrophils Absolute Auto 8.5 K/mm3 (1.7-7.2); Neutrophils Percent Auto 75.7 % (50.0-70.0); Platelet Count Result 157 K/mm3 (150-420); Red Blood Count 4.79 M/mm3 (4.70-6.10); Red Cell Distribution Width 20.1 % (11.6-14.4); White Blood Count 11.2 K/mm3 (4.8-10.8)
[2022-06-04 05:47] LABS: INR 1.6; Partial Thromboplastin Time 38.6 SEC (23.90-30.70); Prothrombin Time 17.1 Seconds (9.50-12.10)
[2022-06-04 05:49] LABS: Alanine Aminotransferase 25 U/L (16-63); Albumin Level 2.5 g/dL (3.4-5.0); Alkaline Phosphatase 73 U/L (46-116); Anion Gap 8 mmol/L (8-16); Aspartate Amino Transferase 46 U/L (15-37); Bilirubin,Total 0.4 mg/dL (0.00-1.00); Blood Urea Nitrogen 49 mg/dL (7-18); Calcium 8.3 mg/dL (8.5-10.1); Carbon Dioxide 28 mmol/L (21-32); Chloride 94 mmol/L (98-108); Estimated CRCL calculation 53 ml/min; Estimated Glomerular Filt Rate 51; Glucose 214 mg/dL (70-99); Osmolality Calculated 289 mOsm/kg (285-295); Potassium 4.1 mmol/L (3.5-5.1); Sodium 130 mmol/L (136-145); Total Protein 6.6 g/dL (6.4-8.2)
[2022-06-04] MEDS: SODIUM CHLORIDE 0.9% IV 1,000 ML 100 ML IV CONT ×2 (06:20→16:46)
[2022-06-04 07:41] LABS: Glucose Point of Care 221 mg/dl (65-105)
[2022-06-04 08:00] VITALS: BP 116/57; PULSE 71; RESP 14; TEMP 36.4; O2SAT 99
--- NOTE | 2022-06-04 08:56 | PM.IMHP ---
H&P: HPI History of Present Illness Date/Time: 06/04/22 08:56 Chief Complaint: fall Narrative: Patient is a 72 year old male with a past medical history of mulitple wound infections, COPD, CAD, CABG x4, hyperlipidemia, hypertension, peripheral neuropathy, CHF who presented to the ED with complaints of a fall. Patient stated that he was at home and he was getting a cup coffee when he felt weak and shaky and fell. Patient stated that he was on the floor on a flat surface. He also stated that he feels like he got beat up however he does feel a lot better today. He also admits to having a cough lately which is producing a green phlegm and stated that it is more than what he is used to he also stated that he is having more wheezes than normal as well. He is not using any oxygen at this time. He denies any headaches, lightheadedness, chest pain, shortness of breath, nausea, vomiting, diarrhea or constipation. He did state that he needs to go however he does nice being constipated at this time. He does see Dr. 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 He is currently on warfarin. INR is 1.6 today. Patient did state that he normally uses a walker at home and stated that he usually does have any problems. He also has some pretty significant wound on his left foot and garcia which he stated he is getting wound care from at his primary care office. He also stated that the foot is being tended to by his son every other day. The foot is read on the top and does feel very warm. He also has a couple of lesions or abrasions on the great big toe and 2nd toe. He stated that it does look a lot better than it has in the past. Patient does live in a zone and does take his medications appropriately. He denies any urinary issues including urgency, frequency, pain or burning. Patient did state that he is incontinent and uses diapers. chest x-ray was significant for pneumonia , impression reads opacity of the middle and lower lung zones consistent with atelectasis versus pneumonia versus pulmonary edema. WBCs elevated at 15.5 upon admission and currently 11.2. BNP slightly elevated at 2400. Sodium was low at 125 upon admission currently 130, BUN elevated at 54 currently 49. Creatinine also elevated at 1.75 [address] 1.[address] Spoke with Dr[address] Donn about the foot and recommending an xray to assess for bone lesions. Patient is being admitted to the hospitalist service under observation Review of Systems Review of Systems: All systems reviewed & are unremarkable except as noted in HPI and below PMFSH Past Medical History Medical History Acute adjustment disorder with anxiety Acute hyponatremia Anemia Arthritis Atrial fibrillation (04/20/17) On chronic anticoagulation with warfarin CAD (coronary artery disease), autologous vein bypass graft Candidiasis of other urogenital sites Chronic venous stasis dermatitis of both lower extremities Diabetes mellitus Diabetic peripheral neuropathy Erectile dysfunction Essential hypertension Hemochromatosis However patient's iron studies demonstrate a low iron level (12/2020), normal transferrin (in 2019) and normal hemoglobin and now actually has what appears bandemia chronic disease Hyperkalemia Mixed hyperlipidemia (04/20/17) Obesity (BMI 35.0-39.9 without comorbidity) SAKSHI on CPAP (03/2019) CPAP of 7 Pacemaker Peripheral artery disease Rhabdomyolysis Sepsis Sick sinus syndrome (04/18/17) Urge urinary incontinence Surgical History Surgical History H/O right heart catheterization Hx of CABG (~2004) Four-vessel CABG Pacemaker (04/2015) Single-chamber MRI compatible pacemaker Family History Family History Father Acute myocardial infarction Son Family history of obesity Mother Uterine cancer Social History Social History (Updated 06/04/22 @ 09:14 b
[2022-06-04] MEDS: oxyBUTYnin CHLORIDE 5 MG TABLET PO ×2 (09:41→16:46)
[2022-06-04] MEDS: lisinopriL 20 MG TABLET PO (09:41)
[2022-06-04] MEDS: GABAPENTIN 300 MG CAPSULE PO ×3 (09:42→16:46)
[2022-06-04] MEDS: ROSUVASTATIN 10 MG TABLET PO (09:42)
[2022-06-04] MEDS: INSULIN HUMAN LISPRO (*BKC) 1,000 UNITS/10 ML VIAL SUB-Q ×3 (09:43→16:49)
[2022-06-04 12:21] LABS: Glucose Point of Care 259 mg/dl (65-105)
[2022-06-04 16:35] VITALS: BP 114/56; PULSE 71; RESP 18; TEMP 36.4; O2SAT 96
[2022-06-04 16:53] LABS: Glucose Point of Care 300 mg/dl (65-105)
[2022-06-04 19:51] LABS: Glucose Point of Care 326 mg/dl (65-105)
[2022-06-04] MEDS: WARFARIN (*PBKC) 5 MG TABLET PO (20:34)
[2022-06-04] MEDS: HYDROcodone/acetaminophen (*CRX) 5-325 MG TABLET 1 TAB PO (20:37)
[2022-06-04 23:51] VITALS: BP 106/61; PULSE 64; RESP 17; TEMP 36.6; O2SAT 94
[2022-06-05] MEDS: SODIUM CHLORIDE 0.9% IV 1,000 ML 100 ML IV CONT ×3 (03:41→23:28)
[2022-06-05 05:14] LABS: Basophils Absolute Auto 0.04 K/mm3 (0.00-0.10); Basophils Percent Auto 0.6 % (0.0-1.0); Eosinophils Absolute Auto 0.08 K/mm3 (0.02-0.50); Eosinophils Percent Auto 1.1 % (1.0-6.0); Hematocrit 37.9 % (37.0-46.0); Hemoglobin 11.8 g/dL (12.4-15.3); Immature Granulocyte Absolute 0.19 K/mm3 (0.00-0.00); Immature Granulocyte Percent A 2.6 % (0.0-0.0); Lymphocytes Absolute Auto 1.33 K/mm3 (1.10-4.50); Lymphocytes Percent Auto 18.3 % (18.0-42.0); Mean Corpuscular HGB Conc 31.1 g/dL (32.0-36.0); Mean Corpuscular Hemoglobin 24.8 pg (27.0-31.0); Mean Corpuscular Volume 79.8 fL (78.0-102.0); Mean Platelet Volume 9.7 fl (8.7-11.0); Monocytes Percent Auto 13.8 % (2.0-11.0); Neutrophils Absolute Auto 4.6 K/mm3 (1.7-7.2); Neutrophils Percent Auto 63.6 % (50.0-70.0); Platelet Count Result 170 K/mm3 (150-420); Red Blood Count 4.75 M/mm3 (4.70-6.10); Red Cell Distribution Width 20.5 % (11.6-14.4); White Blood Count 7.3 K/mm3 (4.8-10.8)
[2022-06-05 05:28] LABS: INR 1.6; Prothrombin Time 16.6 Seconds (9.50-12.10)
[2022-06-05 05:32] LABS: Alanine Aminotransferase 25 U/L (16-63); Albumin Level 2.6 g/dL (3.4-5.0); Alkaline Phosphatase 74 U/L (46-116); Anion Gap 6 mmol/L (8-16); Aspartate Amino Transferase 36 U/L (15-37); Bilirubin,Total 0.3 mg/dL (0.00-1.00); Blood Urea Nitrogen 32 mg/dL (7-18); Calcium 8.4 mg/dL (8.5-10.1); Carbon Dioxide 30 mmol/L (21-32); Chloride 101 mmol/L (98-108); Estimated CRCL calculation 71 ml/min; Estimated Glomerular Filt Rate > 60; Glucose 135 mg/dL (70-99); Osmolality Calculated 292 mOsm/kg (285-295); Potassium 4.5 mmol/L (3.5-5.1); Sodium 137 mmol/L (136-145); Total Protein 6.9 g/dL (6.4-8.2)
[2022-06-05 08:00] VITALS: BP 121/71; PULSE 69; RESP 14; TEMP 36.4; O2SAT 99
[2022-06-05] MEDS: lisinopriL 20 MG TABLET PO (08:27)
[2022-06-05] MEDS: GABAPENTIN 300 MG CAPSULE PO ×3 (08:27→16:41)
[2022-06-05] MEDS: oxyBUTYnin CHLORIDE 5 MG TABLET PO ×2 (08:28→16:41)
[2022-06-05] MEDS: ROSUVASTATIN 10 MG TABLET PO (08:28)
[2022-06-05] MEDS: INSULIN HUMAN LISPRO (*BKC) 1,000 UNITS/10 ML VIAL SUB-Q ×2 (11:57→16:52)
[2022-06-05 12:00] LABS: Glucose Point of Care 223 mg/dl (65-105)
[2022-06-05 12:00] LABS: Glucose Point of Care 136 mg/dl (65-105)
--- NOTE | 2022-06-05 12:22 | P.PNIM_ITS ---
Progress Note: A&P Assessment and Plan (1) Pneumonia: Qualifiers: Laterality: unspecified laterality Lung location: lower lobe of lung Pneumonia type: due to unspecified organism Qualified Code(s): J18.9 - Pneumonia, unspecified organism Code(s): J18.9 - Pneumonia, unspecified organism Status: Acute Assessment and Plan: * Chest x-ray shows Opacities that the mid and lower lung zones consistent with atelectasis versus pneumonia versus pulmonary edema * WBCs slightly elevated at 15.5 currently 7.3 * continue ceftriaxone and azithromycin * trend labs * sputum culture pending * blood cultures pending * adjust and deescalate as indicated * pulmonary toilet (2) Acute hyponatremia: Code(s): E87.1 - Hypo-osmolality and hyponatremia Status: Acute Assessment and Plan: * sodium 125 upon arrival currently 137 * NS 100 mL/hr * continue trend sodium * adjust therapy as indicated (3) Atrial fibrillation: Onset Date: 04/20/17 Code(s): I48.91 - Unspecified atrial fibrillation Status: Chronic Assessment and Plan: * chronic and stable with a pacemaker * tele monitor for now * on warfarin at home however could probably be switched to a Xarelto or Eliquis * sees Dr. aHro outpatient and will continue to manage * Has a pace maker * Continue home medications (4) Acute kidney injury: Code(s): N17.9 - Acute kidney failure, unspecified Status: Acute Assessment and Plan: * BUN/Cr elevated upon arrival at 54/1.75 * Currently 32/1.01 * Continue to trend labs * Continue IV fluids for now * Adjust therapy as indicated * Renal dose medications * avoid nephrotoxic medications (5) Hypertension: Code(s): I10 - Essential (primary) hypertension Status: Acute Assessment and Plan: * BP is stable at 121/71 * Continue home medications * Adjust therapy as indicated * Trend BP (6) Dyslipidemia: Code(s): E78.5 - Hyperlipidemia, unspecified Status: Acute Assessment and Plan: * Continue home rosuvastatin * LFTs stable (7) Diabetes mellitus: Code(s): E11.9 - Type 2 diabetes mellitus without complications Status: Chronic Assessment and Plan: * Current glucose is 135 * A1c in the am * Continue home insulin and iss * hypoglycemia protocol * Trend glucose * Adjust therapy as indicated (8) Wounds, multiple open, lower extremity: Code(s): S81.809A - Unspecified open wound, unspecified lower leg, initial encounter Status: Acute Assessment and Plan: * Left lower extremity is hot, red and mildly swollen * Seems to be acute on chronic * Continue to trend appearance * creams and dressings per orders * Foot xray of the left foot to assess for bony lesions -CT left foot shows no evidence of osteomyelitis Subjective Date/time seen: 06/05/22 5911 Review of Systems Review of Systems: patient states he is getting sore from lying in this bed but other than that feels pretty good All systems reviewed & are unremarkable e
--- NOTE | 2022-06-05 12:22 | PM.IMPN ---
Progress Note: A&P Assessment and Plan (1) Pneumonia: Qualifiers: Laterality: unspecified laterality Lung location: lower lobe of lung Pneumonia type: due to unspecified organism Qualified Code(s): J18.9 - Pneumonia, unspecified organism Code(s): J18.9 - Pneumonia, unspecified organism Status: Acute Assessment and Plan: Chest x-ray shows Opacities that the mid and lower lung zones consistent with atelectasis versus pneumonia versus pulmonary edema WBCs slightly elevated at 15.5 currently 7.3 continue ceftriaxone and azithromycin trend labs sputum culture pending blood cultures pending adjust and deescalate as indicated pulmonary toilet (2) Acute hyponatremia: Code(s): E87.1 - Hypo-osmolality and hyponatremia Status: Acute Assessment and Plan: sodium 125 upon arrival currently 137 NS 100 mL/hr continue trend sodium adjust therapy as indicated (3) Atrial fibrillation: Onset Date: 04/20/17 Code(s): I48.91 - Unspecified atrial fibrillation Status: Chronic Assessment and Plan: chronic and stable with a pacemaker tele monitor for now on warfarin at home however could probably be switched to a Xarelto or Eliquis sees Dr. Haro outpatient and will continue to manage Has a pace maker Continue home medications (4) Acute kidney injury: Code(s): N17.9 - Acute kidney failure, unspecified Status: Acute Assessment and Plan: BUN/Cr elevated upon arrival at 54/1.75 Currently 32/1.01 Continue to trend labs Continue IV fluids for now Adjust therapy as indicated Renal dose medications avoid nephrotoxic medications (5) Hypertension: Code(s): I10 - Essential (primary) hypertension Status: Acute Assessment and Plan: BP is stable at 121/71 Continue home medications Adjust therapy as indicated Trend BP (6) Dyslipidemia: Code(s): E78.5 - Hyperlipidemia, unspecified Status: Acute Assessment and Plan: Continue home rosuvastatin LFTs stable (7) Diabetes mellitus: Code(s): E11.9 - Type 2 diabetes mellitus without complications Status: Chronic Assessment and Plan: Current glucose is 135 A1c in the am Continue home insulin and iss hypoglycemia protocol Trend glucose Adjust therapy as indicated (8) Wounds, multiple open, lower extremity: Code(s): S81.809A - Unspecified open wound, unspecified lower leg, initial encounter Status: Acute Assessment and Plan: Left lower extremity is hot, red and mildly swollen Seems to be acute on chronic Continue to trend appearance creams and dressings per orders Foot xray of the left foot to assess for bony lesions -CT left foot shows no evidence of osteomyelitis Subjective Date/time seen: 06/05/22 0945 Review of Systems Review of Systems: patient states he is getting sore from lying in this bed but other than that feels pretty good All systems reviewed & are unremarkable except as noted in HPI and below Musculoskeletal: Musculoskeletal: Reports back pain and Reports stiffness Exam Narrative: patient is seen in bed in Herrera's position this is seen with son. Alert and oriented x4 and appears in no acute distress. Const: General: comfortable and no acute distress HENMT: Face/Nose/Sinus: Normal nares present Mouth: Yes moist mucous membranes Eyes: General: appearance normal, both eyes and all related structures Neck: Neck: supple and no JVD Resp: Effort & Inspection: normal respiratory effort Other: Patient appears in no acute respiratory distress. Able to speak in complete sentences without difficulty. No use of accessory muscles appreciated. Lung sounds are clear and equal bilaterally. Cardio:
[2022-06-05 16:00] VITALS: BP 137/62; PULSE 67; RESP 16; TEMP 36.6; O2SAT 92
[2022-06-05] MEDS: HYDROcodone/acetaminophen (*CRX) 5-325 MG TABLET 1 TAB PO ×2 (16:41→20:33)
[2022-06-05 16:53] LABS: Glucose Point of Care 211 mg/dl (65-105)
[2022-06-05] MEDS: WARFARIN (*PBKC) 2 MG TABLET 4 MG PO (20:33)
[2022-06-05 20:37] LABS: Glucose Point of Care 211 mg/dl (65-105)
[2022-06-05 23:32] VITALS: BP 98/65; PULSE 61; RESP 18; TEMP 36.3; O2SAT 98
[2022-06-06 08:00] VITALS: BP 115/71; PULSE 71; RESP 16; TEMP 36.4; O2SAT 95
[2022-06-06 08:08] LABS: Glucose Point of Care 126 mg/dl (65-105)
[2022-06-06] MEDS: lisinopriL 20 MG TABLET PO (08:36)
[2022-06-06] MEDS: oxyBUTYnin CHLORIDE 5 MG TABLET PO ×2 (08:36→17:16)
[2022-06-06] MEDS: ROSUVASTATIN 10 MG TABLET PO (08:36)
[2022-06-06] MEDS: GABAPENTIN 300 MG CAPSULE PO ×3 (08:37→17:17)
[2022-06-06 11:03] LABS: Hematocrit 42.7 % (37.0-46.0); Mean Corpuscular HGB Conc 30.4 g/dL (32.0-36.0); Mean Corpuscular Hemoglobin 25.1 pg (27.0-31.0); Mean Corpuscular Volume 82.6 fL (78.0-102.0); Mean Platelet Volume 10.1 fl (8.7-11.0); Platelet Count Result 215 K/mm3 (150-420); Red Blood Count 5.17 M/mm3 (4.70-6.10); Red Cell Distribution Width 21.6 % (11.6-14.4); White Blood Count 8.8 K/mm3 (4.8-10.8)
[2022-06-06 11:17] LABS: Alanine Aminotransferase 29 U/L (16-63); Albumin Level 2.9 g/dL (3.4-5.0); Alkaline Phosphatase 97 U/L (46-116); Anion Gap 6 mmol/L (8-16); Aspartate Amino Transferase 36 U/L (15-37); Bilirubin,Total 0.3 mg/dL (0.00-1.00); Blood Urea Nitrogen 21 mg/dL (7-18); Calcium 8.7 mg/dL (8.5-10.1); Carbon Dioxide 26 mmol/L (21-32); Chloride 98 mmol/L (98-108); Estimated CRCL calculation 81 ml/min; Estimated Glomerular Filt Rate > 60; Glucose 198 mg/dL (70-99); Osmolality Calculated 279 mOsm/kg (285-295); Potassium 4.5 mmol/L (3.5-5.1); Sodium 130 mmol/L (136-145); Total Protein 7.7 g/dL (6.4-8.2)
[2022-06-06 11:43] LABS: Glucose Point of Care 175 mg/dl (65-105)
--- NOTE | 2022-06-06 12:46 | WPDPN ---
Progress Note: A&P Assessment and Plan (1) Pneumonia: Qualifiers: Laterality: unspecified laterality Lung location: lower lobe of lung Pneumonia type: due to unspecified organism Qualified Code(s): J18.9 - Pneumonia, unspecified organism Code(s): J18.9 - Pneumonia, unspecified organism Status: Acute Assessment and Plan: Chest x-ray shows Opacities that the mid and lower lung zones consistent with atelectasis versus pneumonia versus pulmonary edema WBCs slightly elevated at 15.5>11.2>7.3 continue ceftriaxone and azithromycin trend labs sputum culture pending blood cultures pending adjust and deescalate as indicated pulmonary toilet (2) Acute hyponatremia: Code(s): E87.1 - Hypo-osmolality and hyponatremia Status: Acute Assessment and Plan: sodium 125 >130>137>130 Started sodium tablets continue trend sodium adjust therapy as indicated (3) Atrial fibrillation: Onset Date: 04/20/17 Code(s): I48.91 - Unspecified atrial fibrillation Status: Chronic Assessment and Plan: chronic and stable with a pacemaker tele monitor for now on warfarin at home however could probably be switched to a Xarelto or Eliquis sees Dr. Haro outpatient and will continue to manage Has a pace maker Continue home medications (4) Acute kidney injury: Code(s): N17.9 - Acute kidney failure, unspecified Status: Acute Assessment and Plan: BUN/Cr elevated upon arrival at 54/1.75 Currently 32/1.01 Continue to trend labs Continue IV fluids for now Adjust therapy as indicated Renal dose medications avoid nephrotoxic medications (5) Hypertension: Code(s): I10 - Essential (primary) hypertension Status: Acute Assessment and Plan: BP is stable Continue home medications Adjust therapy as indicated Trend BP (6) Dyslipidemia: Code(s): E78.5 - Hyperlipidemia, unspecified Status: Acute Assessment and Plan: Continue home rosuvastatin LFTs stable (7) Diabetes mellitus: Code(s): E11.9 - Type 2 diabetes mellitus without complications Status: Chronic Assessment and Plan: will continue to monitor, will adjust medication as needed Continue home insulin and iss hypoglycemia protocol Trend glucose Adjust therapy as indicated (8) Wounds, multiple open, lower extremity: Code(s): S81.809A - Unspecified open wound, unspecified lower leg, initial encounter Status: Acute Assessment and Plan: Left lower extremity is hot, red and mildly swollen Seems to be acute on chronic Continue to trend appearance creams and dressings per orders Foot xray of the left foot to assess for bony lesions -CT left foot shows no evidence of osteomyelitis Subjective Date/time seen: 06/06/22 12:46 Interval history: patient notes that his condition has improved his shortness of breath has improved, he was able to tolerate all his meals and slept well overnight. PT OT eval indicate possible outpatient PT OT with increased help at home. Home health consult has been ordered. patient will discharge once his home health needs have been arranged. The patient denies , CP, palpitation, extremity numbness, lightheadedness, dizziness, constipation, diarrhea, chills, or fever. Review of Systems Review of Systems: All systems reviewed & are unremarkable except as noted in HPI and below Exam Narrative: GENERAL: This is a well-nourished, well-developed patient, in no apparent distress. HEAD: normocephalic, atraumatic. EYES: PERRL. Sclera clear/white. Vision is grossly intact. EARS: External ears normal, auditory canals clear and without drainage, TMs normal without perforation. Hearing grossly intact. NOSE: External no
--- NOTE | 2022-06-06 12:46 | P.PN_ITS ---
Progress Note: A&P Assessment and Plan (1) Pneumonia: Qualifiers: Laterality: unspecified laterality Lung location: lower lobe of lung Pneumonia type: due to unspecified organism Qualified Code(s): J18.9 - Pneumonia, unspecified organism Code(s): J18.9 - Pneumonia, unspecified organism Status: Acute Assessment and Plan: * Chest x-ray shows Opacities that the mid and lower lung zones consistent with atelectasis versus pneumonia versus pulmonary edema * WBCs slightly elevated at 15.5>11.2>7.3 * continue ceftriaxone and azithromycin * trend labs * sputum culture pending * blood cultures pending * adjust and deescalate as indicated * pulmonary toilet (2) Acute hyponatremia: Code(s): E87.1 - Hypo-osmolality and hyponatremia Status: Acute Assessment and Plan: * sodium 125 >130>137>130 * Started sodium tablets * continue trend sodium * adjust therapy as indicated (3) Atrial fibrillation: Onset Date: 04/20/17 Code(s): I48.91 - Unspecified atrial fibrillation Status: Chronic Assessment and Plan: * chronic and stable with a pacemaker * tele monitor for now * on warfarin at home however could probably be switched to a Xarelto or Eliquis * sees Dr. Haro outpatient and will continue to manage * Has a pace maker * Continue home medications (4) Acute kidney injury: Code(s): N17.9 - Acute kidney failure, unspecified Status: Acute Assessment and Plan: * BUN/Cr elevated upon arrival at 54/1.75 * Currently 32/1.01 * Continue to trend labs * Continue IV fluids for now * Adjust therapy as indicated * Renal dose medications * avoid nephrotoxic medications (5) Hypertension: Code(s): I10 - Essential (primary) hypertension Status: Acute Assessment and Plan: * BP is stable * Continue home medications * Adjust therapy as indicated * Trend BP (6) Dyslipidemia: Code(s): E78.5 - Hyperlipidemia, unspecified Status: Acute Assessment and Plan: * Continue home rosuvastatin * LFTs stable (7) Diabetes mellitus: Code(s): E11.9 - Type 2 diabetes mellitus without complications Status: Chronic Assessment and Plan: * will continue to monitor, will adjust medication as needed * Continue home insulin and iss * hypoglycemia protocol * Trend glucose * Adjust therapy as indicated (8) Wounds, multiple open, lower extremity: Code(s): S81.809A - Unspecified open wound, unspecified lower leg, initial encounter Status: Acute Assessment and Plan: * Left lower extremity is hot, red and mildly swollen * Seems to be acute on chronic * Continue to trend appearance * creams and dressings per orders * Foot xray of the left foot to assess for bony lesions -CT left foot shows no evidence of osteomyelitis Subjective Date/time seen: 06/06/22 12:46 Interval history: patient notes that his condition has improved his shortness of breath has improved, he was able to tolerate all his meals and slept well overnight. PT OT eval indicate possible o
[2022-06-06] MEDS: SODIUM CHLORIDE 1 GM TABLET PO ×2 (13:56→17:16)
[2022-06-06 16:00] VITALS: BP 121/68; PULSE 71; RESP 19; TEMP 36.6; O2SAT 95
[2022-06-06 17:09] LABS: Glucose Point of Care 78 mg/dl (65-105)
[2022-06-06 20:00] VITALS: PULSE 71; RESP 19; O2SAT 95
[2022-06-06] MEDS: WARFARIN (*PBKC) 2 MG TABLET 4 MG PO (21:08)
[2022-06-06] MEDS: HYDROcodone/acetaminophen (*CRX) 5-325 MG TABLET 1 TAB PO (21:12)
[2022-06-07] VITALS: BP 134/69; PULSE 64; RESP 18; TEMP 36.4; O2SAT 100
[2022-06-07 05:01] LABS: Hematocrit 36.5 % (37.0-46.0); Hemoglobin 11.3 g/dL (12.4-15.3); Mean Corpuscular Hemoglobin 25.3 pg (27.0-31.0); Mean Corpuscular Volume 81.8 fL (78.0-102.0); Mean Platelet Volume 9.9 fl (8.7-11.0); Platelet Count Result 214 K/mm3 (150-420); Red Blood Count 4.46 M/mm3 (4.70-6.10); Red Cell Distribution Width 20.9 % (11.6-14.4)
[2022-06-07 05:20] LABS: Alanine Aminotransferase 26 U/L (16-63); Albumin Level 2.6 g/dL (3.4-5.0); Alkaline Phosphatase 86 U/L (46-116); Anion Gap 6 mmol/L (8-16); Aspartate Amino Transferase 27 U/L (15-37); Bilirubin,Total 0.2 mg/dL (0.00-1.00); Blood Urea Nitrogen 19 mg/dL (7-18); Calcium 8.3 mg/dL (8.5-10.1); Carbon Dioxide 30 mmol/L (21-32); Chloride 102 mmol/L (98-108); Estimated CRCL calculation 93 ml/min; Estimated Glomerular Filt Rate > 60; Glucose 100 mg/dL (70-99); Osmolality Calculated 288 mOsm/kg (285-295); Sodium 138 mmol/L (136-145); Total Protein 6.6 g/dL (6.4-8.2)
[2022-06-07 08:00] VITALS: BP 136/76; PULSE 78; RESP 16; TEMP 36.4; O2SAT 97
[2022-06-07 08:08] LABS: Glucose Point of Care 119 mg/dl (65-105)
[2022-06-07] MEDS: ACETAMINOPHEN 500 MG TABLET 1000 MG PO (09:08)
[2022-06-07] MEDS: SODIUM CHLORIDE 1 GM TABLET PO (09:08)
[2022-06-07] MEDS: GABAPENTIN 300 MG CAPSULE PO ×2 (09:08→13:36)
[2022-06-07] MEDS: oxyBUTYnin CHLORIDE 5 MG TABLET PO (09:09)
[2022-06-07] MEDS: ROSUVASTATIN 10 MG TABLET PO (09:10)
[2022-06-07] MEDS: lisinopriL 20 MG TABLET PO (09:12)
[2022-06-07 09:17] LABS: INR 2.6; Prothrombin Time 26.6 Seconds (9.50-12.10)
[2022-06-07 11:49] LABS: Glucose Point of Care 165 mg/dl (65-105)
--- NOTE | 2022-06-07 12:46 | P.DS_ITS ---
DS: Admitting Diagnosis Discharge Date 06/07/2022 Admitting Diagnosis Fall Pneumonia DS: Discharge Diagnosis Discharge Diagnosis (1) Pneumonia: Qualifiers: Laterality: unspecified laterality Lung location: lower lobe of lung Pneumonia type: due to unspecified organism Qualified Code(s): J18.9 - Pneumonia, unspecified organism Code(s): J18.9 - Pneumonia, unspecified organism Status: Acute Assessment and Plan: * Chest x-ray shows Opacities that the mid and lower lung zones consistent with atelectasis versus pneumonia versus pulmonary edema * WBCs slightly elevated at 15.5 currently 8.0 * completed 3 days of IV ceftriaxone and azithromycin, will discharge with oral cefdinir to finish the course (2) Acute hyponatremia: Code(s): E87.1 - Hypo-osmolality and hyponatremia Status: Acute Assessment and Plan: * sodium 125 upon arrival currently 138 (3) Atrial fibrillation: Onset Date: 04/20/17 Code(s): I48.91 - Unspecified atrial fibrillation Status: Chronic Assessment and Plan: * chronic and stable with a pacemaker * on warfarin at home however could probably be switched to a Xarelto or Eliquis * sees Dr. Haro outpatient and will continue to manage * Has a pace maker * Continue home medications (4) Acute kidney injury: Code(s): N17.9 - Acute kidney failure, unspecified Status: Acute Assessment and Plan: * BUN/Cr elevated upon arrival at 54/1.75 * Currently 19/0.75 * Renal dose medications * avoid nephrotoxic medications (5) Hypertension: Code(s): I10 - Essential (primary) hypertension Status: Acute Assessment and Plan: * BP is stable at 136/76 * Continue home medications (6) Dyslipidemia: Code(s): E78.5 - Hyperlipidemia, unspecified Status: Acute Assessment and Plan: * Continue home rosuvastatin * LFTs stable (7) Diabetes mellitus: Code(s): E11.9 - Type 2 diabetes mellitus without complications Status: Chronic Assessment and Plan: * Current glucose is 100 * Continue home medications (8) Wounds, multiple open, lower extremity: Code(s): S81.809A - Unspecified open wound, unspecified lower leg, initial encounter Status: Acute Assessment and Plan: * Left lower extremity is dark red and mildly swollen * Seems to be acute on chronic * Continue to trend appearance * creams and dressings per orders * Foot xray of the left foot to assess for bony lesions -CT left foot shows no evidence of osteomyelitis DS: Summary Hospital Course Reason for hospitalization: fall Ammonia Hospital Course: patient is normally ambulatory at home with a wheeled walker but just prior to admission with acute intake and drink and felt his knee and legs getting weak and he fell to the floor. Patient states for several days prior to this he had had a productive cough and shortness of breath. Patient was given IV Rocephin and azithromycin in the hospital in physical therapy was consulted. Today patient states he is having very little cough and no
--- NOTE | 2022-06-07 12:46 | PM.DS ---
DS: Admitting Diagnosis Discharge Date 06/07/2022 Admitting Diagnosis Fall Pneumonia DS: Discharge Diagnosis Discharge Diagnosis (1) Pneumonia: Qualifiers: Laterality: unspecified laterality Lung location: lower lobe of lung Pneumonia type: due to unspecified organism Qualified Code(s): J18.9 - Pneumonia, unspecified organism Code(s): J18.9 - Pneumonia, unspecified organism Status: Acute Assessment and Plan: Chest x-ray shows Opacities that the mid and lower lung zones consistent with atelectasis versus pneumonia versus pulmonary edema WBCs slightly elevated at 15.5 currently 8.0 completed 3 days of IV ceftriaxone and azithromycin, will discharge with oral cefdinir to finish the course (2) Acute hyponatremia: Code(s): E87.1 - Hypo-osmolality and hyponatremia Status: Acute Assessment and Plan: sodium 125 upon arrival currently 138 (3) Atrial fibrillation: Onset Date: 04/20/17 Code(s): I48.91 - Unspecified atrial fibrillation Status: Chronic Assessment and Plan: chronic and stable with a pacemaker on warfarin at home however could probably be switched to a Xarelto or Eliquis sees Dr. Haro outpatient and will continue to manage Has a pace maker Continue home medications (4) Acute kidney injury: Code(s): N17.9 - Acute kidney failure, unspecified Status: Acute Assessment and Plan: BUN/Cr elevated upon arrival at 54/1.75 Currently 19/0.75 Renal dose medications avoid nephrotoxic medications (5) Hypertension: Code(s): I10 - Essential (primary) hypertension Status: Acute Assessment and Plan: BP is stable at 136/76 Continue home medications (6) Dyslipidemia: Code(s): E78.5 - Hyperlipidemia, unspecified Status: Acute Assessment and Plan: Continue home rosuvastatin LFTs stable (7) Diabetes mellitus: Code(s): E11.9 - Type 2 diabetes mellitus without complications Status: Chronic Assessment and Plan: Current glucose is 100 Continue home medications (8) Wounds, multiple open, lower extremity: Code(s): S81.809A - Unspecified open wound, unspecified lower leg, initial encounter Status: Acute Assessment and Plan: Left lower extremity is dark red and mildly swollen Seems to be acute on chronic Continue to trend appearance creams and dressings per orders Foot xray of the left foot to assess for bony lesions -CT left foot shows no evidence of osteomyelitis DS: Summary Hospital Course Reason for hospitalization: fall Ammonia Hospital Course: patient is normally ambulatory at home with a wheeled walker but just prior to admission with acute intake and drink and felt his knee and legs getting weak and he fell to the floor. Patient states for several days prior to this he had had a productive cough and shortness of breath. Patient was given IV Rocephin and azithromycin in the hospital in physical therapy was consulted. Today patient states he is having very little cough and no shortness of breath. States he feels he is back at his baseline and ready to go home. Physical therapy evaluated patient and feels he is at baseline and will do well with home physical therapy. Status at Discharge Cognitive/behavioral status at discharge: Patient is alert and oriented x4 and appears in no acute distress Functional status at discharge: uses cane/walker Overall status at discharge: patient is back to baseline Time Spent with Patient Time attestation: Total time spent providing and/or coordinating discharge services: (30 minutes Exam Narrative: patient is seen seated in the recliner with feet down. Alert and oriented x4 and appears in no acute distress. Son, Diego, on the p
--- NOTE | 2022-06-07 14:54 | PC.NURSE ---
Patient discharged to home with son. Medications reviewed and scripts called in to [facility] by [employer]. IV DC'd intact. Some bleeding at site. pressure maintained. 4 x4 applied with kerlix. Discharge instructions reviewed with patient and son. Taken to private vehicle by wheelchair. Assisted by son into vehicle without difficulty.
--- NOTE | 2022-06-08 16:01 | PC.NURSE ---
Discharge call back--- Patient stated nurse did a good job explaining discharge instructions and that he understood instructions.
[2022-06-30 13:03] LABS: Glucose Point of Care 119 mg/dl (65-105)
== END 2022-06-07 14:45 | disposition home health service (06) ==
LOC: CHSED 18:53 → CHS2ND 19:11
PROVIDERS: Nurse Practitioner; Nurse Practitioner Family; Admitting Provider Internal Medicine; Emergency Provider Emergency Medicine; PCP Internal Medicine; Visit Provider Internal Medicine
DX: J18.9 Pneumonia, unspecified organism (principal); E87.1 Hypo-osmolality and hyponatremia; N17.9 Acute kidney failure, unspecified; I48.20 Chronic atrial fibrillation, unspecified; I25.10 Atherosclerotic heart disease of native coronary artery without angina pectoris; I10 Essential (primary) hypertension; I49.5 Sick sinus syndrome; I87.2 Venous insufficiency (chronic) (peripheral); E11.51 Type 2 diabetes mellitus with diabetic peripheral angiopathy without gangrene; E11.40 Type 2 diabetes mellitus with diabetic neuropathy, unspecified; E78.2 Mixed hyperlipidemia; S90.415A Abrasion, left lesser toe(s), initial encounter; L97.429 Non-pressure chronic ulcer of left heel and midfoot with unspecified severity; G47.33 Obstructive sleep apnea (adult) (pediatric); R13.10 Dysphagia, unspecified; F17.210 Nicotine dependence, cigarettes, uncomplicated; F43.22 Adjustment disorder with anxiety; Z79.4 Long term (current) use of insulin; Z79.01 Long term (current) use of anticoagulants; Z95.0 Presence of cardiac pacemaker; Z95.1 Presence of aortocoronary bypass graft
CPT/HCPCS: 36415; 71045; 73630; 73700; 80053; 82948; 83605; 83735; 83880; 84484; 85025; 85027; 85610; 85730; 86140; 87040; 93005; 94667; 96361; 96365; 96366; 96367; 97110; 97161; 97165; 97530; 99285; A9270; G0378; J0456; J0696; J1815; J7030

== ENCOUNTER 2022-07-04 04:14 | Emergency (ER) | payer MEDICARE, SELFPAY ==
--- NOTE | ~2022-07-04 | CT_ITS ---
EXAMINATION: CT abdomen pelvis w con INDICATION: Constipation TECHNIQUE: Computed tomographic images of the abdomen and pelvis were obtained after the administrati on of 100 cc of Omnipaque 350 intravenous contrast. The dose-length product (DLP) was 1244.13 mGy-cm. Automated exposure control and iterative reconstruction technique were employed. COMPARISON: None available FINDINGS: Minimal dependent atelectasis is present in the lung bases. The heart size is normal. There are changes of prior cardiac surgery. Punctate calcifications in otherwise normal appearing liver an d spleen likely represent healed granulomatous disease. The gallbladder, pancreas, and adrenal glands are normal. Cysts of the right kidney measure up to 1.7 cm. The left kidney is unremarkable. No path ologically enlarged abdominal or pelvic lymph nodes are identified. There is calcified atherosclerosi s of the aorta and many of the other arteries. A circumaortic right renal vein is noted. No free intr aperitoneal gas or evidence of bowel obstruction. There is a short segment dissection involving the p roximal aspect of the right common iliac artery. A large volume of colonic stool is present. There is severe lumbar spondylosis. IMPRESSION: 1. Constipation. 2. 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 Reviewed, dictated and finalized at location F.
[2022-07-04 04:45] VITALS: BP 139/66; PULSE 82; RESP 20; TEMP 36.9; O2SAT 97
[2022-07-04 05:03] VITALS: RESP 20
--- NOTE | 2022-07-04 05:38 | ED.GENADULT ---
HPI - General Adult General Chief complaint: GI Bleed <Kishore Francisco MD - Last Filed: 07/04/22 07:28> Stated complaint: Bleeding Hemorrhoid <Kishore Francisco MD - Last Filed: 07/04/22 07:28> Time Seen by Provider: 07/04/22 08:05 <Kishore Francisco MD - Last Filed: 07/04/22 07:28> History of Present Illness HPI narrative: 72yo man presents with constipation for the past 10 days that has not responded yet to Miralax TID and one enema. After this enema, pt has some hemorrhoids that started to bleed. The bleeding has since stopped. Pt is on warfarin. Denies pain, fever, chills, dysuria. <Kishore Francisco MD - Last Filed: 07/04/22 07:28> Related Data Home medications: Home Medications Medication Instructions Recorded Confirmed oxybutynin chloride 5 mg tablet 5 mg PO BID 01/31/19 07/04/22 rosuvastatin 10 mg tablet 10 mg PO DAILY 07/25/20 07/04/22 lisinopril 20 mg tablet 20 mg PO DAILY 03/09/22 07/04/22 acetaminophen 300 mg-codeine 30 mg 1 tablet PO Q8H PRN Pain 07/04/22 07/04/22 tablet cefdinir 300 mg capsule 300 mg PO BID 07/04/22 07/04/22 diazepam 10 mg tablet 10 mg PO TID 07/04/22 07/04/22 furosemide 40 mg tablet 40 mg PO DAILY 07/04/22 07/04/22 gabapentin 300 mg capsule 300 mg PO TID 07/04/22 07/04/22 nitroglycerin 0.4 mg sublingual 0.4 mg sublingual Q5M PRN Chest 07/04/22 07/04/22 tablet Pain sodium chloride 1,000 mg soluble 1,000 mg PO DAILY 07/04/22 07/04/22 tablet <Kishore Francisco MD - Last Filed: 07/04/22 07:28> Allergies/adverse reactions: Allergies Allergy/AdvReac Type Severity Reaction Status Date / Time codeine Allergy Hives Verified 07/04/22 04:29 <Kishore Francisco MD - Last Filed: 07/04/22 07:28> Review of Systems Review of Systems: All systems reviewed & are unremarkable except as noted in HPI and below <Kishore Francisco MD - Last Filed: 07/04/22 07:28> Constitutional: Constitutional: Denies chills and Denies fever(s) <Kishore Francisco MD - Last Filed: 07/04/22 07:28> ENT: Denies dizziness <Kishore Francisco MD - Last Filed: 07/04/22 07:28> Cardiovascular: Cardiovascular: Denies chest pain <Kishore Francisco MD - Last Filed: 07/04/22 07:28> Respiratory: Respiratory: Denies dyspnea <Kishore Francisco MD - Last Filed: 07/04/22 07:28> Gastrointestinal: Gastrointestinal: Reports as per HPI <Kishore Francisco MD - Last Filed: 07/04/22 07:28> [facility] Past Medical History Medical History: Medical History Acute adjustment disorder with anxiety Acute hyponatremia Anemia Arthritis Atrial fibrillation (04/20/17) On chronic anticoagulation with warfarin CAD (coronary artery disease), autologous vein bypass graft Candidiasis of other urogenital sites Chronic venous stasis dermatitis of both lower extremities Diabetes mellitus Diabetic peripheral neuropathy Erectile dysfunction Essential hypertension Hemochromatosis However patient's iron studies demonstrate a low iron level (12/2020), normal transferrin (in 2019) and normal hemoglobin and now actually has what appears bandemia chronic disease Hyperkalemia Mixed hyperlipidemia (04/20/17) Obesity (BMI 35.0-39.9 without comorbidity) SAKSHI on CPAP (03/2019) CPAP of 7 Pacemaker Peripheral artery disease Rhabdomyolysis Sepsis Sick sinus syndrome (04/18/17) Urge urinary incontinence <Kishore Francisco MD - Last Filed: 07/04/22 07:28> Surgical History Surgical History: Surgical History H/O right heart catheterization Hx of CABG (~2004) Four-vessel CABG Pacemaker (04/2015) Single-chamber MRI compatible pacemaker <Kishore Francisco MD - Last Filed: 07/04/22 07:28> Family History Family History: Family History Father Acute myocardial infarction Son Family history of obesity Mother Uterine cancer <Juliette
[2022-07-04 05:57] LABS: Basophils Absolute Auto 0.02 K/mm3 (0.00-0.10); Basophils Percent Auto 0.2 % (0.0-1.0); Eosinophils Absolute Auto 0.03 K/mm3 (0.02-0.50); Eosinophils Percent Auto 0.3 % (1.0-6.0); Hematocrit 41.9 % (37.0-46.0); Hemoglobin 13.4 g/dL (12.4-15.3); Immature Granulocyte Absolute 0.07 K/mm3 (0.00-0.00); Immature Granulocyte Percent A 0.7 % (0.0-0.0); Lymphocytes Absolute Auto 1.56 K/mm3 (1.10-4.50); Lymphocytes Percent Auto 16.5 % (18.0-42.0); Mean Corpuscular Hemoglobin 25.9 pg (27.0-31.0); Mean Platelet Volume 9.9 fl (8.7-11.0); Monocytes Absolute Auto 0.76 K/mm3 (0.10-0.90); Monocytes Percent Auto 8.1 % (2.0-11.0); Neutrophils Percent Auto 74.2 % (50.0-70.0); Platelet Count Result 190 K/mm3 (150-420); Red Blood Count 5.17 M/mm3 (4.70-6.10); Red Cell Distribution Width 18.8 % (11.6-14.4); White Blood Count 9.4 K/mm3 (4.8-10.8)
[2022-07-04] MEDS: diphenhydrAMINE HCl INJ 50 MG/ML VIAL 25 MG IV PUSH (06:01)
[2022-07-04] MEDS: LACTATED RINGERS 1,000 ML 999 ML IV CONT (06:02)
[2022-07-04] MEDS: METHYLNALTREXONE 12 MG/0.6 ML VIAL SUB-Q (06:03)
[2022-07-04 06:13] LABS: INR 1.7; Prothrombin Time 17.6 Seconds (9.50-12.10)
[2022-07-04 06:15] LABS: Alanine Aminotransferase 27 U/L (16-63); Albumin Level 3.5 g/dL (3.4-5.0); Alkaline Phosphatase 71 U/L (46-116); Anion Gap 12 mmol/L (8-16); Aspartate Amino Transferase 25 U/L (15-37); Bilirubin,Total 0.4 mg/dL (0.00-1.00); Blood Urea Nitrogen 27 mg/dL (7-18); Calcium 9.2 mg/dL (8.5-10.1); Carbon Dioxide 26 mmol/L (21-32); Chloride 96 mmol/L (98-108); Estimated CRCL calculation 62 ml/min; Estimated Glomerular Filt Rate > 60; Glucose 208 mg/dL (70-99); Magnesium 1.6 mg/dL (1.8-2.4); Osmolality Calculated 289 mOsm/kg (285-295); Sodium 134 mmol/L (136-145); Total Protein 7.4 g/dL (6.4-8.2)
[2022-07-04 07:00] VITALS: BP 119/59; PULSE 71; RESP 18; O2SAT 99
[2022-07-04 08:01] VITALS: BP 130/64; PULSE 79; O2SAT 100
[2022-07-04 08:03] LABS: Appearance Urine Clear (Clear); Bilirubin Urine Negative (Negative); Blood Urine Negative (Negative); Color Urine Light Yellow (Yellow); Glucose Urine UA 1+ (Negative); Ketones Urine Negative (Negative); Leukocyte Esterase Ur 1+ LEU/UL (Negative); Nitrate Urine Negative (Negative); Protein Urine Negative (Negative); Specific Grav Ur <= 1.005 (1.010-1.020); Urobilinogen Urine 0.2 mg/dL (0.2-1.0); pH Urine 6.5 (5.0-8.0)
[2022-07-04 08:11] LABS: Add Urine Microscopic? YES; WBC Urine Rare /hpf (0-3)
[2022-07-04 08:17] VITALS: PULSE 111; O2SAT 99
[2022-07-04 08:30] VITALS: BP 130/64; PULSE 98; RESP 20; TEMP 36.4; O2SAT 99
--- NOTE | 2022-07-06 12:42 | PC.NURSE ---
FINAL URINE CULTURE RESULT: MIXED GENITAL TIANA ISOLATED. NO ACTIONS NEEDED.
== END 2022-07-04 08:32 | disposition home or self-care (01) ==
PROVIDERS: Emergency Medicine; Emergency Provider Emergency Medicine; PCP Internal Medicine
DX: K92.2 Gastrointestinal hemorrhage, unspecified (principal); K59.00 Constipation, unspecified; I25.10 Atherosclerotic heart disease of native coronary artery without angina pectoris; I48.91 Unspecified atrial fibrillation; E78.2 Mixed hyperlipidemia; I10 Essential (primary) hypertension; Z79.01 Long term (current) use of anticoagulants; Z87.891 Personal history of nicotine dependence; Z79.899 Other long term (current) drug therapy
CPT/HCPCS: 36415; 74177; 80053; 81001; 83735; 85025; 85610; 87086; 87088; 96361; 96372; 96374; 99284; J1200; J2212; J7120; Q9967

== ENCOUNTER 2022-07-22 12:21 | Outpatient (CLI) | payer MEDICARE, SELFPAY ==
--- NOTE | ~2022-07-22 | US_ITS ---
Thyroid ultrasound. Clinical History: Thyroid nodule Findings: Real-time sonography of the thyroid gland was performed. The right lobe measures 3.9 x 1.5 x 2.0 cm. The left lobe measures 2.7 x 1.7 x 1.4 cm. The isthmus is 7 mm in AP diameter. There is a 6 mm hypoechoic, probably cystic nodule at the right midpole. Impression: Small thyroid gland. Subcentimeter cystic nodule, which requires no further follow-up.. Reviewed, dictated and finalized at location M. Impression: Small thyroid gland. Subcentimeter cystic nodule, which requires no further follow-up..
== END 2022-07-22 12:22 | disposition home or self-care (01) ==
LOC: CHSIMG 12:23
PROVIDERS: PCP Internal Medicine; Visit Provider Internal Medicine
DX: R13.12 Dysphagia, oropharyngeal phase (principal); E04.1 Nontoxic single thyroid nodule
CPT/HCPCS: 76536

== ENCOUNTER 2022-12-02 22:35 | Emergency (ER) | payer MEDICARE, SELFPAY ==
--- NOTE | ~2022-12-02 | CT_ITS ---
EXAMINATION: CT chest abdomen pelvis wo con DATE: 12/02/2022 23:09 INDICATION: Left-sided pain after fall TECHNIQUE: Transaxial computed tomographic images of the chest, abdomen, and pelvis were obtained wit hout intravenous contrast. The dose-length product (DLP) was 1909.23 mGy-cm. Automated exposure contr ol and iterative reconstruction technique were employed. COMPARISON: 07/04/2022 FINDINGS: CHEST CT: Cardiomegaly is noted. There are small pleural effusions. There is mild atelectasis. Calcified bilate ral hilar and mediastinal lymph nodes are consistent with old granulomatous disease. There are small pleural effusions. No pneumothorax. Changes of coronary artery bypass grafting are noted. There are n o pathologically enlarged thoracic lymph nodes. Bilateral gynecomastia is noted. A single lead pacema ker of the left chest wall ends with its lead in the right ventricle. There is severe thoracic spondy losis. ABDOMEN/PELVIS CT: Punctate calcifications in an otherwise normal spleen likely represent healed granulomatous disease. The liver, pancreas, gallbladder, and adrenal glands are normal. There is a 10 mm cyst of the right k idney. Left kidney is unremarkable. No pathologically enlarged abdominal or pelvic lymph nodes are id entified. No free intraperitoneal gas or evidence of bowel obstruction. There is a large volume of co lonic stool. A left gluteal intramuscular lipoma is noted. There are tiny umbilical and inguinal hang ias containing fat. There is severe lumbar spondylosis. IMPRESSION: 1. No CT correlate for the patient's symptoms. 2. Constipation. 3. Cardiomegaly. Reviewed, dictated and finalized at location F.
--- NOTE | 2022-12-02 22:44 | ED.FALL ---
HPI - Fall General Chief Complaint: Fall Stated Complaint: Upper back pain Source: patient Mode of arrival: ambulatory Limitations: no limitations History of Present Illness HPI Narrative: this is a 72-year-old gentleman with history of diabetes atrial fibrillation currently on Coumadin had a fall last week and currently is having left-sided lower rib pain and mild hematoma and otherwise the patient has some pain level about a 6/10 with palpation with no shortness of breath no chest pain no fever chills. complaint: fall Onset (ago): week(s) Fall from: standing Place fall occurred: home Related Data Home Medications Medication Instructions Recorded Confirmed oxybutynin chloride 5 mg tablet 5 mg PO BID 01/31/19 12/02/22 rosuvastatin 10 mg tablet 10 mg PO DAILY 07/25/20 12/02/22 lisinopril 20 mg tablet 20 mg PO DAILY 03/09/22 12/02/22 acetaminophen 300 mg-codeine 30 mg 1 tablet PO Q8H PRN Pain 07/04/22 12/02/22 tablet cefdinir 300 mg capsule 300 mg PO BID 07/04/22 12/02/22 diazepam 10 mg tablet 10 mg PO TID 07/04/22 12/02/22 furosemide 40 mg tablet 40 mg PO DAILY 07/04/22 12/02/22 gabapentin 300 mg capsule 300 mg PO TID 07/04/22 12/02/22 nitroglycerin 0.4 mg sublingual 0.4 mg sublingual Q5M PRN Chest 07/04/22 12/02/22 tablet Pain sodium chloride 1,000 mg soluble 1,000 mg PO DAILY 07/04/22 12/02/22 tablet Allergies Allergy/AdvReac Type Severity Reaction Status Date / Time codeine Allergy Hives Verified 12/02/22 22:42 Review of Systems Review of Systems: All systems reviewed & are unremarkable except as noted in HPI and below PMFSH Past Medical History Medical History Acute adjustment disorder with anxiety Acute hyponatremia Anemia Arthritis Atrial fibrillation (04/20/17) On chronic anticoagulation with warfarin CAD (coronary artery disease), autologous vein bypass graft Candidiasis of other urogenital sites Chronic venous stasis dermatitis of both lower extremities Diabetes mellitus Diabetic peripheral neuropathy Erectile dysfunction Essential hypertension Hemochromatosis However patient's iron studies demonstrate a low iron level (12/2020), normal transferrin (in 2019) and normal hemoglobin and now actually has what appears bandemia chronic disease Hyperkalemia Mixed hyperlipidemia (04/20/17) Obesity (BMI 35.0-39.9 without comorbidity) SAKSHI on CPAP (03/2019) CPAP of 7 Pacemaker Peripheral artery disease Rhabdomyolysis Sepsis Sick sinus syndrome (04/18/17) Urge urinary incontinence Surgical History Surgical History H/O right heart catheterization Hx of CABG (~2004) Four-vessel CABG Pacemaker (04/2015) Single-chamber MRI compatible pacemaker Family History Family History Father Acute myocardial infarction Son Family history of obesity Mother Uterine cancer Social History Social History Social History: He has been since 1997 and he he lives in his own home. He ambulates with a walker. His son comes and checks on him daily, and will be his surrogate Diego rosenthal. He is retired from the [employer]. He wishes to be a full code at this time. Smoking status: Former smoker Tobacco type: smokeless tobacco Smokeless tobacco user: chewing tobacco Second hand tobacco smoke exposure: No Additional smoking assessment comments: He smoked 3-5 cigars a day but quit smoking at age 54. Alcohol intake: former Substance use: never Substance use type: painkillers and prescription drug Lack of Transportation: No Lack of Food: Never True Current Housing: I Have Housing Concerned About Future Housing: No Difficulty Paying Gas/Electric Bills: No Difficulty Paying for Meds: No Currently Unemployed: No Education: High School Diploma/GED Difficulty w/ C
[2022-12-02 22:45] VITALS: BP 179/69; PULSE 87; RESP 16; TEMP 36.7; O2SAT 99
[2022-12-02] MEDS: KETOROLAC 30 MG/ML VIAL (*BKC) IM (22:56)
[2022-12-02 23:17] LABS: Basophils Absolute Auto 0.05 K/mm3 (0.00-0.10); Basophils Percent Auto 0.5 % (0.0-1.0); Eosinophils Absolute Auto 0.07 K/mm3 (0.02-0.50); Eosinophils Percent Auto 0.7 % (1.0-6.0); Hematocrit 37.7 % (37.0-46.0); Hemoglobin 11.6 g/dL (12.4-15.3); Immature Granulocyte Absolute 0.06 K/mm3 (0.00-0.00); Immature Granulocyte Percent A 0.6 % (0.0-0.0); Lymphocytes Absolute Auto 1.54 K/mm3 (1.10-4.50); Lymphocytes Percent Auto 14.9 % (18.0-42.0); Mean Corpuscular HGB Conc 30.8 g/dL (32.0-36.0); Mean Corpuscular Hemoglobin 25.4 pg (27.0-31.0); Mean Corpuscular Volume 82.5 fL (78.0-102.0); Monocytes Percent Auto 12.6 % (2.0-11.0); Neutrophils Absolute Auto 7.3 K/mm3 (1.7-7.2); Neutrophils Percent Auto 70.7 % (50.0-70.0); Platelet Count Result 228 K/mm3 (150-420); Red Blood Count 4.57 M/mm3 (4.70-6.10); Red Cell Distribution Width 18.5 % (11.6-14.4); White Blood Count 10.3 K/mm3 (4.8-10.8)
[2022-12-02 23:31] LABS: INR 2.2; Partial Thromboplastin Time 42.9 SEC (23.90-30.70)
[2022-12-02 23:42] VITALS: BP 160/92; PULSE 80; RESP 16; TEMP 36.8; O2SAT 96
== END 2022-12-02 23:44 | disposition home or self-care (01) ==
PROVIDERS: Emergency Provider Emergency Medicine; PCP Internal Medicine
DX: S20.212A Contusion of left front wall of thorax, initial encounter (principal); I48.91 Unspecified atrial fibrillation; E11.9 Type 2 diabetes mellitus without complications; I25.10 Atherosclerotic heart disease of native coronary artery without angina pectoris; I10 Essential (primary) hypertension; E78.2 Mixed hyperlipidemia; Z79.899 Other long term (current) drug therapy; Z79.01 Long term (current) use of anticoagulants; Z87.891 Personal history of nicotine dependence; W19.XXXA Unspecified fall, initial encounter
CPT/HCPCS: 36415; 71250; 74176; 85025; 85610; 85730; 96372; 99284; J1885

== ENCOUNTER 2023-05-23 10:51 | Outpatient (RCR) | payer MEDICARE, SELFPAY ==
--- NOTE | 2023-05-23 12:06 | PTOPEVAL1 ---
Assessment and note entered by [facility] Evaluation Information Assessment Status Evaluation Diagnosis unsteady gait Onset 05/02/23 Subjective Information Pt. reports that he has been falling frequently at home in the recent months. He states that he lives alone, but has his son that checks on him often. He reports that he has fallen about 4 times in the past 6 months. He states that he has a rollator walker at home. He reports that he was not utilizing his walker with all the falls he experienced. He states that his son assist with being able to get dressed, as well as assist with getting in and out of the shower. He reports that his son does all his grocery shopping. He reports that he no longer drives. He reports that his goal is to be able to walk on his own, as well as do his own bathing and dressing. Reported Pain Level Pain Score 0: Self Report Assessment PT Clinical Summary Pt. is a 73 year old male who enters the clinic due to frequent falls. He presents with l.e. weakness, impaired gait, impaired balance and functional decline. Continued skilled PT is indicated in order to improve these areas to allow for improved safety with and independence with ADL's. Recommended to the doctor that the pt. participate in OT evaluation due to reports of fine motor deficits. Plan of Care Interventions Gait Training,Neuro Re-education,Patient/Caregiver Educati,Therapeutic Activities,Therapeutic Exercise PT Services Indicated Yes Treatment Frequency and 3x/week x 10 visits Duration These treatments will address the objective and functional deficits as defined above. The patient will be advanced safely and appropriately in order for the patient to progress towards his/her prior level of function. Additional exercises will be introduced and as well as a comprehensive home exercise program upon discharge, if needed, ?to ensure carryover of functional gains achieved in the clinic. This treatment plan has been reviewed and agreement upon by the patient.
--- NOTE | 2023-05-23 12:06 | OPREHPOC ---
Outpatient Therapy Plan of Care This is a Multidisciplinary Plan of Care that may contain components documented by all disciplines (PT, OT, and ST.) PT Problem 1 PT Problem #1 Knowledge Deficit PT Goal 1 Goal Independent with a HEP addressing l.e. strength Target Visit 2 PT Problem 2 PT Problem #2 Impaired Balance PT Goal 1 Goal Improve tinetti score to 19 or greater indicating decreased fall risk. Target Visit 10 PT Problem 3 PT Problem #3 Impaired Gait PT Goal 1 Goal Pt. will ambulates independently with use of a ww over level surface for a duration of 6 minutes completing a distance of 300' or greater Target Visit 10 PT Problem 4 PT Problem #4 Impaired Strength PT Goal 1 Goal Pt. will present with 4/5 gross l.e. strength to improve standing endurance and stability. Target Visit 10
--- NOTE | 2023-05-30 07:38 | PCPTNOTE ---
Patient cancelled session today due to foot wound.
== END 2023-05-23 20:00 | disposition home or self-care (01) ==
LOC: CHSPT 10:51
PROVIDERS: Visit Provider Internal Medicine
DX: R26.81 Unsteadiness on feet (principal)
CPT/HCPCS: 97162; 97530

== ENCOUNTER 2023-10-21 17:28 | Inpatient (IN) | payer MEDICARE, SELFPAY ==
[2023-10-21] VITALS (33 sets, daily range): BP systolic 86–133; BP diastolic 48–63; PULSE 63–110; RESP 14–22; TEMP 37.3–38.7; O2SAT 92–100
--- NOTE | ~2023-10-21 | XR_ITS ---
Upright portable view of the abdomen Clinical history: NG tube placement Findings: NG tube in satisfactory position. Bowel gas pattern is nonspecific. No evidence for obstruc tion or free air. No abnormal mass lesion or calcification is seen. Osseous structures are intact. Impression: NG tube in satisfactory position. Reviewed, dictated and finalized at [facility]. Impression: NG tube in satisfactory position.
--- NOTE | ~2023-10-21 | XR_ITS ---
MODIFIED ESOPHAGRAM HISTORY: Failed bedside swallow test TECHNIQUE: Modified barium esophagram was performed on 11/02/2023. I administered fluoroscopy and perf ormed the exam with speech pathologist. Patient was seated for lateral fluoroscopic imaging for alfred stion of thin liquids, pudding, solids and quantified amounts, followed by thin liquids in uncontroll ed amounts. This was recorded on tape. A single fluoroscopic spot image was also recorded. The DAP fo r this procedure was 2.1 Gycm2. The amount of fluoroscopy time used during this procedure was 1.4 min utes. FINDINGS: Oral stage: Adequate function. Pharyngeal stage: Reduced laryngeal elevation and adduction. Reduced tongue base retraction and phary ngeal squeeze. There is vallecular residue. There is laryngeal penetration and aspiration with thin l iquids.. Cervical/esophageal stage: Adequate function. IMPRESSION: Pharyngeal dysphagia with laryngeal penetration and aspiration with thin liquids. Please correlate with speech pathologist findings and specific feeding recommendations. Reviewed, dictated and finalized at location A.
--- NOTE | ~2023-10-21 | XR_ITS ---
EXAMINATION: XR chest 1V portable DATE: 10/25/2023 05:38 INDICATION: Respiratory failure. TECHNIQUE: A single frontal view of the chest was obtained. COMPARISON: Chest single view 10/24/23 FINDINGS: There are airspace opacities in the perihilar regions and at the lung bases. No pleural eff usion or pneumothorax. Cardiomegaly is noted. The endotracheal tube tip is 3.1 cm above the mauri. T here is a left chest pacer with lead in right ventricle. Median sternotomy wires are noted. A left in ternal jugular central venous catheter is seen with tip in the superior vena cava. IMPRESSION: 1. Stable airspace opacities in the perihilar regions and at the lung bases, consistent with atelecta sis versus pneumonia. 2. Cardiomegaly. Reviewed, dictated and finalized at location A. IMPRESSION: 1. Stable airspace opacities in the perihilar regions and at the lung bases, co nsistent with atelectasis versus pneumonia. 2. Cardiomegaly.
--- NOTE | ~2023-10-21 | CT_ITS ---
CT brain wo con Ordering provider: Rito Rodriguez MD History: 73 years Male with . Encephalopathy . Comparison: October 21, 2023 Technique: CT of the head without contrast. Radiation reduction technique utilized. The dose-length product was 681 mGy-cm. FINDINGS: BRAIN PARENCHYMA AND CSF SPACES: Mild leukoaraiosis and diffuse cortical atrophy. Mild atheromatous d isease. No midline shift, mass effect or hemorrhage. The brain parenchyma and CSF spaces are otherwi se normal. VISUALIZED PARANASAL SINUSES: Right maxillary sinusitis with hyperdense material. Fungal infection sh ould be considered. Thickening of the bone is seen suggestive of chronic infection. Left nasal septal deviation. MASTOIDS: Well aerated. BONES: The bones appear intact. SOFT TISSUES: Visualized nasopharynx is normal. Superficial soft tissues are normal. Endotracheal and nasogastric tube are seen in the area of the oropharynx. IMPRESSION: No acute intracranial findings. Reviewed, dictated and finalized at location A.
--- NOTE | ~2023-10-21 | CT_ITS ---
EXAMINATION: CT abdomen pelvis w con DATE: 11/07/2023 20:59 INDICATION: Elevated lipase TECHNIQUE: Computed tomography (CT) of the abdomen and pelvis was performed with 100 mL Omnipaque-350 intravenous contrast. Automated exposure control and iterative reconstruction technique were employe d. The dose-length product was 1568.53 mGy-cm. COMPARISON: 10/26/2023 FINDINGS: Mild dependent atelectasis in bilateral lower lobes. Calcified left hilar/infrahilar lymph nodes jose g with scattered hepatic and splenic calcific lesions consistent with old granulomatous disease. Mild cardiomegaly. Atherosclerotic coronary artery calcific lesion. Aortic valve calcific lesion. Cardiac pacemaker lead tip at the apex of the right ventricle. Prior median sternotomy with change of tyson ry artery bypass grafting. No pericardial or pleural effusion. Nasogastric tube tip at the gastric py lorus. Gallbladder, pancreas, bilateral adrenal glands and kidneys are normal. Nayak catheter and sma ll amount of gas in the bladder. There is mild diffuse bladder wall thickening with minimal stranding in the surrounding fat raising concern for cystitis. Large amount of stool scattered throughout the colon suggestive of constipation. No bowel obstruction. Normal appendix. Small fat-containing left in guinal hernia. No free intraperitoneal gas or fluid. No pathologically enlarged abdominal or pelvic l ymphadenopathy. There is calcified atherosclerosis of the aorta and many of the other arteries. Sever e lumbar spondylosis. IMPRESSION: 1. Large amount of stool throughout the colon suggestive of constipation. 2. Mild bladder wall thickening with subtle stranding to the surrounding fat which could be seen with cystitis. Correlate with urinalysis. 2. Nasogastric tube at the gastric pylorus. Consider withdrawal by [address] the tip at the dist al body of the stomach. Reviewed, dictated and finalized at location A. IMPRESSION: 1. Large amount of stool throughout the colon suggestive of constipation. 2. Mild bladder wall thickening with subtle stranding to the surrounding fat wh ich could be seen with cystitis. Correlate with urinalysis. 2. Nasogastric tube at the gastric pylorus. Consider withdrawal by 10 cm to neha ce the tip at the distal body of the stomach.
--- NOTE | ~2023-10-21 | US_ITS ---
EXAMINATION:US venous doppler LE BI INDICATION:Fever TECHNIQUE: Multiple grayscale, color flow and Doppler images of the right and left lower extremity de ep venous systems were obtained and reviewed. COMPARISON:No prior studies for comparison. FINDINGS: The common femoral, superficial femoral and popliteal veins demonstrate normal respiratory variation, augmentation and compressibility. Color flow is also seen within the posterior tibial, pe roneal, greater saphenous and profunda veins. IMPRESSION: 1: No lower extremity deep venous thrombosis. Reviewed, dictated and finalized at location B.
--- NOTE | ~2023-10-21 | XR_ITS ---
EXAMINATION: XR chest 1V portable DATE: 10/27/2023 05:37 INDICATION: Pneumonia. Mechanical ventilation. TECHNIQUE: A single frontal view of the chest was obtained. COMPARISON: Chest single view 10/26/2023 FINDINGS: Calcified pulmonary nodules and calcified hilar lymph nodes are consistent with old granulo matous disease. There are airspace opacities in the perihilar regions. No pleural effusion or pneumot horax. Cardiomegaly is noted. The endotracheal tube tip is 5.8 cm above the mauri. The nasogastric t ube tip is beyond the inferior margin of the radiograph, but at least to the stomach. There is a left chest pacer lead in right ventricle. Median sternotomy wires are noted. A left internal jugular cent ral venous catheter is seen with tip in the superior vena cava. IMPRESSION: 1. Improved airspace opacities in the perihilar regions, consistent with atelectasis versus mild pulm onary edema. 2. Cardiomegaly. Reviewed, dictated and finalized at location A. IMPRESSION: 1. Improved airspace opacities in the perihilar regions, consistent with atelec tasis versus mild pulmonary edema. 2. Cardiomegaly.
--- NOTE | ~2023-10-21 | XR_ITS ---
Portable chest x-ray Comparison: 10/31/2023 Clinical History: Respiratory failure Findings: NG tube and left-sided central venous line are in satisfactory positions. Probable mild ce ntral congestive changes, otherwise clear lungs. Cardiomediastinal silhouette is stable, with pacema ker device. Bones and soft tissues are unremarkable. Impression: Mild central congestive changes. Stable support tubes. Reviewed, dictated and finalized at location . Impression: Mild central congestive changes. Stable support tubes.
--- NOTE | ~2023-10-21 | CT_ITS ---
EXAMINATION: CT brain wo con DATE: 11/07/2023 20:59 INDICATION: Confusion TECHNIQUE: Computed tomography (CT) of the head was performed without intravenous contrast. Sagittal and coronal reconstructions were performed. The mA was adjusted according to patient size. Iterative reconstruction technique was employed. The dose-length product was 605.33 mGy-cm. COMPARISON: head CT dated 10/26/2023 FINDINGS: No acute intracranial hemorrhage, acute infarction or abnormal extra axial fluid collection. There is mild scattered white matter hypoattenuation consistent with chronic small vessel ischemic disease. S ymmetric prominence of the sulci consistent with mild age-appropriate diffuse cerebral volume loss. V entricles are normal and symmetric. No mass/mass effect. Persistent complete opacification of the rig ht maxillary sinus with thickened sclerotic carranza consistent with chronic sinusitis. Mild mucosal thi ckening the right ethmoid sinus. Partially visualized nasogastric tube extending to the right nasal c avity. Bilateral mastoids are hyperpneumatized. Orbits are normal. IMPRESSION: 1. Normal aging brain. No acute intracranial process. 2. Chronic right maxillary sinusitis. Reviewed, dictated and finalized at location A.
--- NOTE | ~2023-10-21 | XR_ITS ---
EXAMINATION: XR abdomen/kub 1V DATE: 10/24/2023 05:48 INDICATION: High tube feeding residuals. TECHNIQUE: A supine view of the abdomen on 2 radiographs was obtained. COMPARISON: CT abdomen and pelvis 10/21/2023 FINDINGS: The small bowel is normal in caliber. There is a moderate volume of stool in the colon. The sigmoid colon is distended. A catheter overlies the bladder. IMPRESSION: 1. Distended sigmoid colon, likely adynamic ileus. Reviewed, dictated and finalized at location A.
--- NOTE | ~2023-10-21 | XR_ITS ---
EXAMINATION: XR chest 1V portable DATE: 10/22/2023 05:34 INDICATION: Respiratory failure TECHNIQUE: frontal view of the chest was obtained. COMPARISON: Chest radiograph dated 10/21/2023 FINDINGS: Endotracheal tube tip 3.8 cm above the mauri. Left internal jugular central venous catheter with dis lisa tip at the cephalad superior vena cava. Nasogastric tube extends below the left hemidiaphragm wi th distal tip collimated off the study. Decreased lung volumes. Persistent opacities in the bilateral mid to lower lung zones which could rep resent pulmonary edema, atelectasis, pneumonia or some combination thereof. No pneumothorax or defini tive pleural effusion. Cardiomegaly. Median sternotomy wires and mediastinal surgical clips are seen, likely from prior coronary artery bypass grafting. Single lead cardiac pacemaker with lead tip near the apex of the right ventricle. IMPRESSION: 1. No significant change in opacities in bilateral mid and lower lung zones which could represent pul monary edema, atelectasis, pneumonia or some combination thereof. 2. Cardiomegaly. Reviewed, dictated and finalized at location A. IMPRESSION: 1. No significant change in opacities in bilateral mid and lower lung zones whi ch could represent pulmonary edema, atelectasis, pneumonia or some combination thereof. 2. Cardiomegaly.
--- NOTE | ~2023-10-21 | XR_ITS ---
EXAMINATION: XR chest 1V portable DATE: 10/23/2023 05:40 INDICATION: Respiratory failure TECHNIQUE: frontal view of the chest was obtained. COMPARISON: Chest radiograph dated 10/22/2023 FINDINGS: Endotracheal tube tip 2.5 cm above the mauri. Nasogastric tube extends below the left hemidiaphragm with distal tip collimated off the study. Left internal jugular central venous catheter with distal tip at the cephalad superior vena cava. Opacities at the bilateral lower lung zones. No pneumothorax. Cardiomegaly. Median sternotomy wires a nd mediastinal surgical clips are seen, likely from prior coronary artery bypass grafting. Single praneeth d cardiac pacemaker with lead tip near the apex of the right ventricle. IMPRESSION: 1. Opacities in the bilateral lower lung zones which could represent atelectasis, small pleural effus ions, pneumonia or some combination thereof. Reviewed, dictated and finalized at location A. IMPRESSION: 1. Opacities in the bilateral lower lung zones which could represent atelectasi s, small pleural effusions, pneumonia or some combination thereof.
--- NOTE | ~2023-10-21 | CT_ITS ---
EXAMINATION: CT brain wo con DATE: 10/21/2023 19:06 INDICATION: Transient alteration of awareness TECHNIQUE: Computed tomography (CT) of the head was performed without intravenous contrast. Sagittal and coronal reconstructions were performed. The mA was adjusted according to patient size. Iterative reconstruction technique was employed. The dose-length product was 681.00 mGy-cm. COMPARISON: 10/04/2017 FINDINGS: No acute intracranial hemorrhage, acute infarction or abnormal extra axial fluid collection. There is mild scattered white matter hypoattenuation consistent with chronic small vessel ischemic disease. S ymmetric prominence of the sulci consistent with mild age-appropriate diffuse cerebral volume loss. V entricles are normal and symmetric. No mass/mass effect. Complete opacification of the right maxillar y sinus with some central calcification and peripheral thickened sclerotic carranza consistent with upper cutter chip sinusitis. The orbits and mastoid air cells are normal. IMPRESSION: 1. No acute intracranial process. 2. Age-related changes including mild diffuse volume loss and mild scattered white matter hypoattenua tion consistent with chronic small vessel ischemic disease. 3. Chronic right maxillary sinusitis. Reviewed, dictated and finalized at location A. IMPRESSION: 1. No acute intracranial process. 2. Age-related changes including mild diffuse volume loss and mild scattered wh ite matter hypoattenuation consistent with chronic small vessel ischemic diseas e. 3. Chronic right maxillary sinusitis.
--- NOTE | ~2023-10-21 | XR_ITS ---
EXAMINATION: XR chest 1V DATE: 10/21/2023 19:09 INDICATION: Hypotension and weakness TECHNIQUE: frontal view of the chest was obtained. COMPARISON: Chest radiograph dated 06/03/[address] dated 12/02/2022 FINDINGS: Calcified nodule in the left lung base and calcified bilateral hilar lymph nodes consistent with old granulomatous disease. No other airspace opacities, pulmonary edema, pleural effusion or pneumothorax . Cardiomegaly. Median sternotomy wires and mediastinal surgical clips are seen, likely from prior co ronary artery bypass grafting. Cardiac pacemaker with distal tip at the right ventricle. IMPRESSION: 1. Cardiomegaly. No acute cardiopulmonary disease. Reviewed, dictated and finalized at location A.
--- NOTE | ~2023-10-21 | XR_ITS ---
Portable chest x-ray Comparison: 11/01/2023 Clinical History: Respiratory failure Findings: NG tube and left-sided central venous line are in satisfactory positions. There is probabl e central congestive change and mild pulmonary edema. Cardiomediastinal silhouette is stable, status post CABG with pacemaker device. Bones and soft tissues are unremarkable. Impression: Mild pulmonary edema pattern. Stable support tubes. Reviewed, dictated and finalized at location . Impression: Mild pulmonary edema pattern. Stable support tubes.
--- NOTE | ~2023-10-21 | XR_ITS ---
EXAMINATION: XR chest 1V portable DATE: 10/30/2023 05:30 INDICATION: Respiratory failure. TECHNIQUE: A single frontal view of the chest was obtained. COMPARISON: Chest single view 10/29/2023 FINDINGS: There is diffuse opacities in right lower lung zone and left mid and lower lung zones. No p leural effusion or pneumothorax. Cardiomegaly is noted. Calcified left hilar lymph nodes are consiste nt with old granulomatous disease. The endotracheal tube tip is 4.6 cm above the mauri. There is a l eft chest pacer with lead in right ventricle. Median sternotomy wires and mediastinal surgical clips are seen, likely from prior coronary artery bypass grafting. A left internal jugular central venous c atheter is seen with tip in the superior vena cava. The nasogastric tube tip is beyond the inferior m argin of the radiograph, but at least to the stomach. IMPRESSION: 1. Airspace opacities in right lower lung zone and left mid and lower lung zones with worsening on th e left, consistent with atelectasis versus pneumonia. 2. Cardiomegaly. Reviewed, dictated and finalized at location A. IMPRESSION: 1. Airspace opacities in right lower lung zone and left mid and lower lung zone s with worsening on the left, consistent with atelectasis versus pneumonia. 2. Cardiomegaly.
--- NOTE | ~2023-10-21 | XR_ITS ---
EXAMINATION: XR chest 1V portable DATE: 10/26/2023 05:38 INDICATION: Respiratory failure. TECHNIQUE: A single frontal view of the chest was obtained. COMPARISON: Chest single view 10/25/2023, chest CT 10/21/2023 FINDINGS: There are airspace opacities in the perihilar regions and at the left lung base. No pleural effusion or pneumothorax. Cardiomegaly is noted. There is a prominent left pericardial fat pad. Calc ified hilar lymph nodes are consistent with old granulomatous disease. The endotracheal tube tip is 4 .3 cm above the mauri. The nasogastric tube tip is beyond the inferior margin of the radiograph, but at least to the stomach. There is a left chest pacer lead in right ventricle. A left internal jugula r central venous catheter is seen with tip in the superior vena cava. IMPRESSION: 1. Stable air space opacities in the perihilar regions and at the left lung base, consistent with ate lectasis versus pneumonia. 2. Cardiomegaly. Reviewed, dictated and finalized at location A. IMPRESSION: 1. Stable air space opacities in the perihilar regions and at the left lung bas e, consistent with atelectasis versus pneumonia. 2. Cardiomegaly.
--- NOTE | ~2023-10-21 | CT_ITS ---
EXAMINATION:CT diagnostic chest wo con DATE: 10/30/2023 10:39 INDICATION: Fever. TECHNIQUE: Computed tomography (CT) of the chest was performed without intravenous contrast. Automate d exposure control and iterative reconstruction technique were employed. The dose-length product (DLP ) was 896.98 mGy-cm. COMPARISON: Chest CT 10/26/2023, 12/02/22 FINDINGS: There is smooth septal thickening in the lungs, consistent with mild pulmonary edema. There is dependent atelectasis bilaterally. Calcified pulmonary nodules and calcified hilar and mediastina l lymph nodes are consistent with old granulomatous disease. There is a trace left pleural effusion. Cardiomegaly is noted. There are coronary artery calcifications. There are changes of coronary artery bypass grafting. No pericardial effusion. The endotracheal tube tip is in expected position in the t rachea. There is a left chest pacer with lead in right ventricle. Calcifications in the spleen are co nsistent with old granulomatous disease. There is severe thoracic spondylosis. IMPRESSION: 1. Mild pulmonary edema. 2. Trace left pleural effusion. Reviewed, dictated and finalized at location A.
--- NOTE | ~2023-10-21 | XR_ITS ---
EXAMINATION: XR chest 1V portable DATE: 10/24/2023 05:49 INDICATION: Respiratory failure. TECHNIQUE: A single frontal view of the chest was obtained. COMPARISON: Chest single view 10/23/2023, chest CT 10/21/2023 FINDINGS: There are airspace opacities in the perihilar regions and left lung base. No pleural effusi on or pneumothorax. Cardiomegaly is noted. There is a prominent left pericardial fat pad. Calcified l eft hilar lymph nodes are consistent with old granulomatous disease. The endotracheal tube tip is 12 mm above the mauri. There is a left chest pacer lead in right ventricle. A left internal jugular rachel tral venous catheter is seen with tip in the superior vena cava. The nasogastric tube tip is beyond t he inferior margin of the radiograph, but at least to the stomach. Median sternotomy wires are noted. IMPRESSION: 1. Stable airspace opacities in the perihilar regions and at left lung base, consistent with atelecta sis versus pneumonia. 2. Cardiomegaly. Reviewed, dictated and finalized at location A. IMPRESSION: 1. Stable airspace opacities in the perihilar regions and at left lung base, co nsistent with atelectasis versus pneumonia. 2. Cardiomegaly.
--- NOTE | ~2023-10-21 | XR_ITS ---
EXAMINATION: XR chest 1V portable DATE: 10/28/2023 05:41 INDICATION: Pneumonia. Mechanical ventilation. TECHNIQUE: A single frontal view of the chest was obtained. COMPARISON: Chest single view 10/27/2023, chest CT 10/26/2023 FINDINGS: There are mild airspace opacities in the mid and lower lung zones. There are small pleural effusions. No pneumothorax. Cardiomegaly is noted. The endotracheal tube tip is 4.0 cm above the yeny na. There is a left chest pacer lead in right ventricle. The nasogastric tube tip is in the stomach. A left internal jugular central venous catheter is seen with tip in the superior vena cava. IMPRESSION: 1. Stable mild airspace opacities in the mid and lower lung zones, consistent with atelectasis versus pneumonia. 2. Small pleural effusions. 3. Cardiomegaly. Reviewed, dictated and finalized at location A. IMPRESSION: 1. Stable mild airspace opacities in the mid and lower lung zones, consistent w ith atelectasis versus pneumonia. 2. Small pleural effusions. 3. Cardiomegaly.
--- NOTE | ~2023-10-21 | XR_ITS ---
EXAMINATION: XR abdomen obstructive series DATE: 10/25/2023 08:09 INDICATION: Adynamic ileus. TECHNIQUE: Upright and supine views of the abdomen on 3 radiographs were obtained. COMPARISON: CT abdomen and pelvis 10/21/23 FINDINGS: The nasogastric tube tip is in the stomach. There is a catheter in the bladder. There are n o dilated loops of bowel. There is a small volume of stool in colon. No free intraperitoneal gas. Med shane sternotomy wires are noted. There is a left chest pacer with lead in right ventricle. IMPRESSION: 1. Normal bowel gas pattern. Reviewed, dictated and finalized at location A.
--- NOTE | ~2023-10-21 | XR_ITS ---
EXAMINATION: XR chest 1V portable DATE: 10/29/2023 05:40 INDICATION: Respiratory failure. TECHNIQUE: A single frontal view of the chest was obtained. COMPARISON: Chest single view 10/28/2023, chest CT 10/26/2023 FINDINGS: There are mild airspace opacities in the lower lung zones. Calcified left lung nodules and calcified left hilar lymph nodes are consistent with old granulomatous disease. No pleural effusion o r pneumothorax. Cardiomegaly is noted. The endotracheal tube tip is 5.5 cm above the mauri. The naso gastric tube tip is in the stomach. Median sternotomy wires and mediastinal surgical clips are seen, likely from prior coronary artery bypass grafting. There is a left chest pacer with lead in right robert tricle. A left internal jugular central venous catheter is seen with tip in the superior vena cava. IMPRESSION: 1. Improved mild airspace opacities in the lower lung zones, consistent with atelectasis versus pneum onia. 2. Cardiomegaly. Reviewed, dictated and finalized at location A. IMPRESSION: 1. Improved mild airspace opacities in the lower lung zones, consistent with at electasis versus pneumonia. 2. Cardiomegaly.
--- NOTE | ~2023-10-21 | XR_ITS ---
EXAMINATION: XR chest ET placement, XR abdomen gastric tube insert DATE: 10/21/2023 23:05 INDICATION: Endotracheal tube placement. Orogastric tube placement. TECHNIQUE: 1. AP view of the chest was obtained. 2. AP view of the abdomen was obtained. COMPARISON: Chest radiograph dated 10/21/2023 at 9:18 PM FINDINGS: CHEST: Endotracheal tube tip 3.0 cm above the mauri. Left internal jugular central venous catheter with dis lisa tip at the cephalad superior vena cava. Mild groundglass opacities and increased interstitial pat tern in the bilateral mid and lower lung zones. No pleural effusion or pneumothorax. Cardiomegaly. Me cheri sternotomy wires and mediastinal surgical clips are seen, likely from prior coronary artery bypa ss grafting. Cardiac pacemaker lead tip near the apex of the right ventricle. ABDOMEN: Orogastric tube tip in proximal side port in the body of the stomach. Large amount of colonic stool i n the right abdomen in the proximal colon. IMPRESSION: 1. Endotracheal tube and orogastric tube in expected positions. 2. Interstitial and airspace opacities in bilateral mid and lower lung zones likely combination of mi ld pulmonary edema and atelectasis although differential includes pneumonia. Reviewed, dictated and finalized at location A. IMPRESSION: 1. Endotracheal tube and orogastric tube in expected positions. 2. Interstitial and airspace opacities in bilateral mid and lower lung zones li angie combination of mild pulmonary edema and atelectasis although differential includes pneumonia.
--- NOTE | ~2023-10-21 | XR_ITS ---
Portable chest x-ray Comparison: 10/30/2023 Clinical History: Respiratory failure Findings: Endotracheal tube, NG tube, and left-sided central venous line are in satisfactory positio ns. Probable focal patchy retrocardiac airspace disease present. Probable small calcified granulomas at the right lung base. Cardiomediastinal silhouette is stable, with pacemaker device. Bones and sof t tissues are unremarkable. Impression: Focal retrocardiac airspace disease. Correlate for atelectasis or pneumonia. Support tubes and pacemaker device, as above. Reviewed, dictated and finalized at [facility]. Impression: Focal retrocardiac airspace disease. Correlate for atelectasis or pneumonia. Support tubes and pacemaker device, as above.
--- NOTE | ~2023-10-21 | US_ITS ---
EXAMINATION: US venous doppler [facility] DATE: 10/22/2023 10:37 INDICATION: Lower limb swelling and erythema TECHNIQUE: Grayscale ultrasound images without and with compression and Doppler ultrasound images of the bilateral lower extremity veins were obtained. COMPARISON: None. FINDINGS: The visualized portions of right common femoral vein, profunda (deep) femoral vein, femoral vein, pop liteal vein, gastrocnemius vein and greater saphenous vein outflow are patent. The veins at the calf were unable to be visualized due to patient body habitus The visualized portions of left common femoral vein, profunda femoral vein, femoral vein, popliteal v ein, gastrocnemius vein and greater saphenous vein outflow are patent. The veins at the calf were mgean ble to be visualized due to patient body habitus IMPRESSION: 1. No deep venous thrombosis in either lower limb. Sensitivity decreased by patient body habitus, es sentially nondiagnostic in the calves. Reviewed, dictated and finalized at location A. IMPRESSION: 1. No deep venous thrombosis in either lower limb. Sensitivity decreased by pa tient body habitus, essentially nondiagnostic in the calves.
--- NOTE | ~2023-10-21 | CT_ITS ---
EXAMINATION: CT chest abdomen pelvis w con DATE: 10/21/2023 20:17 INDICATION: Sepsis, shock and altered mental status TECHNIQUE: Computed tomography (CT) of the chest, abdomen, and pelvis was performed with 100 mL Omnip aque-350 intravenous contrast. Automated exposure control and iterative reconstruction technique were employed. The dose-length product was 3224.74 mGy-cm. COMPARISON: 12/02/2022 FINDINGS: CHEST CT: Respiratory motion in the lungs. There are some groundglass opacity and septal line thickening with d ependent and lower lung predominance most likely combination of mild pulmonary edema and atelectasis although differential in the left lower lobe would include pneumonia. No pleural effusion or pneumoth orax. Calcified nodule at the left lung base along with calcified bilateral hilar and mediastinal lym ph nodes consistent with old granulomatous disease. Cardiomegaly. Atherosclerotic coronary artery kehinde cifications. Median sternotomy wires and coronary artery bypass grafting. Cardiac pacemaker lead tip at the apex of the right ventricle. Aortic valve calcification. Thoracic aorta is normal in caliber w ith no dissection. No pathologically enlarged thoracic lymphadenopathy. Severe spondylosis with chron ic degenerative endplate changes at T8-T9. Otherwise mild to moderate thoracic and lower cervical spo ndylosis. ABDOMEN/PELVIS CT: Hepatic and splenic calcifications consistent with old granulomatous disease. Gallbladder, pancreas, bilateral adrenal glands and left kidney are normal. A couple cysts at the lower pole the right kidne y the larger measuring 1.8 cm. Large amount of stool scattered throughout the colon. Normal appendix. No bowel obstruction. There is calcified atherosclerosis of the aorta and many of the other arteries . Incidentally noted circumaortic left renal veins. Nayak catheter within the decompressed bladder. S mall fat-containing left inguinal hernia. No free intraperitoneal gas or fluid. No pathologically enl arged abdominal or pelvic lymphadenopathy. Severe lumbar spondylosis. 9.6 x 4.9 x 2.8 cm intramuscular lipoma within the left gluteus medius muscle belly. IMPRESSION: 1. Bilateral groundglass and interstitial opacities at dependent and lower lung predominance most lik stew combination mild pulmonary edema and atelectasis although differential particularly in the left l ower lobe includes pneumonia. 2. Cardiomegaly. 3. Large amount of stool scattered throughout the colon consistent with constipation. No other acute intra-abdominal/pelvic process. Reviewed, dictated and finalized at location A. IMPRESSION: 1. Bilateral groundglass and interstitial opacities at dependent and lower lung predominance most likely combination mild pulmonary edema and atelectasis alth ough differential particularly in the left lower lobe includes pneumonia. 2. Cardiomegaly. 3. Large amount of stool scattered throughout the colon consistent with constip ation. No other acute intra-abdominal/pelvic process.
--- NOTE | ~2023-10-21 | XR_ITS ---
MODIFIED ESOPHAGRAM HISTORY: Aspiration pneumonia TECHNIQUE: Modified barium esophagram was performed on 11/04/2023. I administered fluoroscopy and perf ormed the exam with speech pathologist. Patient was seated for lateral fluoroscopic imaging for alfred stion of thin liquids, pudding, solids and quantified amounts, followed by thin liquids in uncontroll ed amounts. This was recorded on tape. A single fluoroscopic spot image was also recorded. The DAP fo r this procedure was 4.744 Gycm2. The amount of fluoroscopy time used during this procedure was 3.9 m inutes. FINDINGS: Oral stage: Reduced labial seal/attention and reduced lingual movement. Pharyngeal stage: Reduced laryngeal elevation and adduction. Reduced tongue base retraction and phary ngeal squeeze. There is vallecular residue. Laryngeal penetration and aspiration.. Cervical/esophageal stage: Adequate function. IMPRESSION: Oropharyngeal dysphagia with laryngeal penetration and aspiration. Please correlate with speech pathologist findings and specific feeding recommendations. Reviewed, dictated and finalized at location A. IMPRESSION: Oropharyngeal dysphagia with laryngeal penetration and aspiration. Please correlate with speech pathologist findings and specific feeding recomme ndations.
--- NOTE | ~2023-10-21 | CT_ITS ---
EXAMINATION: CT chest abdomen pelvis wo con DATE: 10/26/2023 14:16 INDICATION: Pneumonia. Ileus. TECHNIQUE: Computed tomography (CT) of the chest, abdomen, and pelvis was performed without intraveno us contrast. Automated exposure control and iterative reconstruction technique were employed. The dos e-length product was 1881.07 mGy-cm. COMPARISON: CT 10/21/2023 FINDINGS: CHEST CT: There is atelectasis bilaterally with a dependent predominance. Calcified pulmonary nodules and calci fied hilar and mediastinal lymph nodes are consistent with old granulomatous disease. There are small pleural effusions. The endotracheal tube tip is in expected position in the trachea. Cardiomegaly is noted. There are coronary artery calcifications. There are changes of coronary artery bypass graftin g. No pericardial effusion. There is a left chest pacemaker with leads in right ventricle and superio r vena cava. There is severe cervical and thoracic spondylosis. ABDOMEN/PELVIS CT: Calcifications in the liver and spleen are consistent with old granulomatous disease. There is contra st in the gallbladder, which is normal in size. The pancreas, adrenal glands, and kidneys are normal. There is no urolithiasis. There is a Nayak catheter in the bladder. The prostate is mildly enlarged. There is a large volume of stool in colon with distention of the descending and transverse colon. Th ere is a left inguinal hernia containing fat. There is calcified atherosclerosis of the aorta and man y of the other arteries. The nasogastric tube tip is in the stomach. There is a small volume of ascit es. There are no pathologically enlarged lymph nodes. There is severe thoracic spondylosis. IMPRESSION: 1. Small pleural effusions. 2. Small volume of ascites. 3. Large volume of stool in the colon with distention of the descending and transverse colon, consist ent with adynamic ileus. Reviewed, dictated and finalized at location A. IMPRESSION: 1. Small pleural effusions. 2. Small volume of ascites. 3. Large volume of stool in the colon with distention of the descending and tra nsverse colon, consistent with adynamic ileus.
--- NOTE | ~2023-10-21 | XR_ITS ---
EXAMINATION: XR chest port-a-cath/central DATE: 10/21/2023 21:29 INDICATION: Central line placement TECHNIQUE: frontal view of the chest was obtained. COMPARISON: Chest radiograph dated 10/21/2023 at 7:06 PM FINDINGS: Likely dual-lumen left internal jugular central venous catheter with distal tip at the cephalad super ior vena cava. There are subtle groundglass and interstitial opacities throughout both lungs. No pleural effusion or pneumothorax. Calcified nodule at the left lung base and calcified bilateral hilar lymph nodes consi stent with old granulomatous disease. Cardiomegaly. Median sternotomy wires and mediastinal surgical clips are seen, likely from prior coronary artery bypass grafting. . A pacemaker lead tip projecting near the apex of the right ventricle. IMPRESSION: 1. Diffuse mild groundglass and interstitial opacities throughout both lungs likely combination of mi ld pulmonary edema and atelectasis although differential includes pneumonia. 2. Cardiomegaly. Reviewed, dictated and finalized at location A. IMPRESSION: 1. Diffuse mild groundglass and interstitial opacities throughout both lungs li angie combination of mild pulmonary edema and atelectasis although differential includes pneumonia. 2. Cardiomegaly.
--- NOTE | ~2023-10-21 | US_ITS ---
EXAMINATION: US renal BI DATE: 10/24/2023 12:22 INDICATION: Acute kidney injury. TECHNIQUE: Multiple ultrasound grayscale images of the kidneys were obtained. COMPARISON: Abdomen and pelvis 10/21/2023 FINDINGS: The right kidney measures 12.7 x 6.6 x 7.2 cm. The left kidney measures 12.6 x 8.0 x 7.8 cm. The kidn eys demonstrate normal parenchymal echogenicity. There is no hydronephrosis. The bladder is decompres sed by a Nayak catheter. IMPRESSION: 1. Normal kidneys. No hydronephrosis. Reviewed, dictated and finalized at location A.
--- NOTE | 2023-10-21 17:59 | ECG_ITS ---
Test Date: 2023-10-21 17:34:06 Measurements Intervals [place] Rate: 82 P: 0 AL: 0 QRS: -66 QRSD: 196 T: 92 QT: 430 QTc: 503 Interpretive Statements ATRIAL FIBRILLATION WITH ELECTRONIC VENTRICULAR PACEMAKER DEMONSTRATING APPROPRIATE SENSING AND CAPTURE NONSPECIFIC T-WAVE ABNORMALITY ABNORMAL ECG No previous ECG available for comparison Electronically Signed On 10-22-2023 09:26:51 CDT by Dixon Balderas M.D.
[2023-10-21 18:18] LABS: Basophils Absolute Auto 0.1 K/mm3 (0.0-0.1); Basophils Percent Auto 0.4 % (0.2-1.2); Eosinophils Percent Auto 0.1 % (0-4.4); Hematocrit 40.9 % (42.0-52.0); Hemoglobin 12.6 g/dL (14.0-18.0); Lymphocytes Absolute Auto 0.66 K/mm3 (0.9-3.2); Lymphocytes Percent Auto 3.3 % (18.3-44.2); Mean Corpuscular HGB Conc 30.8 g/dl (32-36); Mean Corpuscular Hemoglobin 25.9 pg (26-34); Mean Corpuscular Volume 84.2 fl (80-100); Mean Platelet Volume 9.9 fl (7.4-10.4); Monocytes Absolute Auto 1.5 K/mm3 (0.1-0.6); Monocytes Percent Auto 7.6 % (2.6-8.5); Neutrophils Absolute Auto 17.5 K/mm3 (1.3-6.7); Neutrophils Percent Auto 87.6 % (45.5-73.1); Nucleated Red Blood Cells Perc 0.1 % (0.0-0.2); Platelet Count Result 177 k/mm3 (150-375); Red Blood Count 4.86 M/mm3 (4.6-6.20); Red Cell Distribution Width 21.4 % (11.5-14.5)
[2023-10-21 18:29] LABS: INR 2.8; Prothrombin Time 30.1 Seconds (11.1-14.7)
[2023-10-21 18:30] LABS: Partial Thromboplastin Time 53.1 Seconds (22.3-36.8)
[2023-10-21 18:31] LABS: Alanine Aminotransferase 13 U/L (6-50); Albumin Level 3.8 g/dL (3.5-5.1); Alkaline Phosphatase 73 U/L (38-126); Anion Gap 9 mmol/L (4-12); Aspartate Amino Transferase 25 U/L (17-59); Blood Urea Nitrogen 21 mg/dL (9-20); Calcium 8.5 mg/dL (8.4-10.2); Carbon Dioxide 25 mmol/L (22-30); Chloride 94 mmol/L (98-107); Estimated Glomerular Filt Rate 59; Glucose 303 mg/dL (65-110); Lactic Acid Reflex 2.4 mmol/L (0.7-2.0); Potassium 4.4 mmol/L (3.4-5.0); Sodium 128 mmol/L (137-145)
[2023-10-21] MEDS: ACETAMINOPHEN 650 MG SUPPOSITORY RECTAL (18:37)
[2023-10-21 18:38] LABS: Alveolar/Arterial O2 Gradient 46.5 mmHg; Base Excess ABG -4.2 mEq/l (+/-2.0); Fractional Inspired Oxygen 28 %; HCO3 ABG 22.2 mEq/l (22.0-26.0); Oxygen Content ABG 16.7 %vol (16.0-22.0); Oxygen Saturation ABG 96.8 % (95.0-100.0); Oxyhemoglobin 95.7 % THb (90.0-100.0); PCO2 ABG 46.2 mmHg (35.0-45.0); PO2 ABG 98.6 mmHg (80.0-100.0); PO2 FiO2 Ratio Arterial Blood 3.52 %; Total Hemoglobin 12.3 g/dL (12.0-18.0)
[2023-10-21 18:40] LABS: Device NASAL CANNULA; Site Drawn RIGHT BRACHIAL
[2023-10-21] MEDS: SODIUM CHLORIDE 0.9% IV 1,000 ML 1000 ML (18:40)
--- NOTE | 2023-10-21 19:20 | PC.NURSE ---
Report received from ZI Arauz. Assumed care of patient at this time.
[2023-10-21 19:39] LABS: Add Urine Microscopic? YES; Appearance Urine Clear (Clear); Bacteria Urine None Seen /hpf; Bilirubin Urine Negative (Negative); Blood Urine Negative (Negative); Color Urine Yellow (Yellow); Glucose Urine UA 3+ mg/dL (Negative); Ketones Urine Negative (Negative); Leukocyte Esterase Ur Negative LEU/UL (Negative); Nitrate Urine Negative (Negative); Non Pathogenic Casts 0-2; Protein Urine 2+ mg/dL (Negative); RBC Urine 0-2 /hpf (0-2); Specific Grav Ur 1.027 (1.001-1.035); Squamous Epithelial Cell Urine None Seen /hpf (Few); WBC Urine 0-5 /hpf (0-3)
[2023-10-21] MEDS: SODIUM CHLORIDE 0.9% IV 1,000 ML 999 ML IV CONT (19:40)
[2023-10-21 19:45] LABS: Lactic Acid Reflex 1.7 mmol/L (0.7-2.0); Lipase 101 U/L (23-300); Magnesium 1.5 mg/dL (1.6-2.3); Phosphorus 1.7 mg/dL (2.5-4.5)
[2023-10-21] MEDS: PIPERACILLN/TAZ 3.375GM/NS50ML 3.375 GM/50 ML BAG IVPB (19:47)
[2023-10-21 19:48] LABS: Partial Thromboplastin Time 60.7 Seconds (22.3-36.8)
--- NOTE | 2023-10-21 19:55 | PC.NURSE ---
Patient taken to CT via stretcher and while on monitor at this time.
[2023-10-21 20:05] LABS: Ethanol < 10 mg/dL (<10)
[2023-10-21 20:08] LABS: NT Pro B Type Natriuretic Pept 1790 pg/mL (19.9-100)
[2023-10-21 20:14] LABS: Amphetamine Screen Urine Negative (Negative); Barbiturate Screen Urine Negative (Negative); Benzodiazepines Screen Urine Positive (Negative); Cannabinoid Screen Urine Negative (Negative); Cocaine Screen Urine Negative (Negative); Methadone Screen Urine Negative (Negative); Opiate Screen Urine Negative (Negative); Phencyclidine Screen Urine Negative (Negative)
[2023-10-21] MEDS: VANCOMYCIN 1,250 MG/NS 250 ML 1,250 MG/250 ML BAG 166.67 MG IVPB ×2 (20:32→22:07)
[2023-10-21 21:16] LABS: Reflex Lactic Acid Yes or No Add Lactic
--- NOTE | 2023-10-21 21:20 | PC.NURSE ---
ERP placed central line for patient. ERP speaking with patients family at this time via phone.
--- NOTE | 2023-10-21 21:25 | ED.GENADULT ---
HPI - General Adult General Chief complaint: Altered Mental Status Stated complaint: AMS Time Seen by Provider: 10/21/23 18:07 History of Present Illness HPI narrative: This is a 73-year-old male with history of coronary artery disease with CABG, diastolic heart failure hypertension diabetes presenting for altered mental status. The patient is lethargic, A&O x1 and can provide no useful information during the interview. I called the patient's son who said that the father has been complaining of a cough and flu-like symptoms for the last several days. Today after lunch he started having rigors and chills. The son believes that he took a Valium which he only takes at night during the day and then several of his gabapentin. The son believes the patient was probably confused and thought it was his Tylenol. After that the patient became more lethargic and confused. They called EMS and patient was brought to the hospital for evaluation. The patient arrived in the emergency department he was hypotensive and febrile. Related Data Home Medications Medication Instructions Recorded Confirmed oxybutynin chloride 5 mg tablet 5 mg PO BID 01/31/19 05/23/23 rosuvastatin 10 mg tablet 10 mg PO DAILY 07/25/20 05/23/23 lisinopril 20 mg tablet 20 mg PO DAILY 03/09/22 05/23/23 acetaminophen 300 mg-codeine 30 mg 1 tablet PO Q8H PRN Pain 07/04/22 05/23/23 tablet cefdinir 300 mg capsule 300 mg PO BID 07/04/22 05/23/23 diazepam 10 mg tablet 10 mg PO TID 07/04/22 05/23/23 furosemide 40 mg tablet 40 mg PO DAILY 07/04/22 05/23/23 gabapentin 300 mg capsule 300 mg PO TID 07/04/22 05/23/23 nitroglycerin 0.4 mg sublingual 0.4 mg sublingual Q5M PRN Chest 07/04/22 05/23/23 tablet Pain sodium chloride 1,000 mg soluble 1,000 mg PO DAILY 07/04/22 05/23/23 tablet Allergies Allergy/AdvReac Type Severity Reaction Status Date / Time No Known Allergies Allergy Verified 05/23/23 15:18 [facility] Past Medical History Medical History Acute adjustment disorder with anxiety Acute hyponatremia Anemia Arthritis Atrial fibrillation (04/20/17) On chronic anticoagulation with warfarin CAD (coronary artery disease), autologous vein bypass graft Candidiasis of other urogenital sites Chronic venous stasis dermatitis of both lower extremities Diabetes mellitus Diabetic peripheral neuropathy Erectile dysfunction Essential hypertension Hemochromatosis However patient's iron studies demonstrate a low iron level (12/2020), normal transferrin (in 2019) and normal hemoglobin and now actually has what appears bandemia chronic disease Hyperkalemia Mixed hyperlipidemia (04/20/17) Obesity (BMI 35.0-39.9 without comorbidity) SAKSHI on CPAP (03/2019) CPAP of 7 Pacemaker Peripheral artery disease Rhabdomyolysis Sepsis Sick sinus syndrome (04/18/17) Urge urinary incontinence Surgical History Surgical History H/O right heart catheterization Hx of CABG (~2004) Four-vessel CABG Pacemaker (04/2015) Single-chamber MRI compatible pacemaker Family History Family History Father Acute myocardial infarction Son Family history of obesity Mother Uterine cancer Social History Social History (Updated 05/23/23 @ 15:08 by Denisse Gilliland [facility]) Social History: He has been since 1997 and he he lives in his own home. He ambulates with a walker. His son comes and checks on him daily, and will be his surrogate Diego rosenthal. He is retired from the [employer] He wishes to be a full code at this time. Smoking status: Former smoker Tobacco type: smokeless tobacco Smokeless tobacco user: chewing tobacco Second hand tobacco smoke exposure: No Additional smoking assessment comments: He smoked 3-5 cigars a day but quit smoking at age 54. Alcohol intake: former Substance use: never Substance use type: pa
[2023-10-21] MEDS: SODIUM PHOSPHATE 20 MM in DEXTROSE 5% IN WATER 250 ML 50 MM IVPB (21:42)
[2023-10-21] MEDS: NOREPINEPHRINE 8 MG/D5W 250 ML 8 MG/250 ML BAG 9.38 MG IV CONT (21:46)
[2023-10-21] MEDS: MAGNESIUM SULF 2 GM/WATER 50ML 2 GM/50 ML BAG IVPB (21:47)
[2023-10-21] MEDS: DOXYCYCLINE 100 MG/NS 100 ML 100 MG/100 ML BAG IVPB (21:49)
[2023-10-21 21:58] LABS: Fractional Inspired Oxygen 28 %; HCO3 VBG 26.8 mEq/l (24.0-30.0); PO2 VBG 38.7 mmHg (35.0-45.0)
[2023-10-21 22:01] LABS: Device NASAL CANNULA; PCO2 VBG 65.4 mmHg (42.0-48.0)
--- NOTE | 2023-10-21 22:01 | PC.NURSE ---
IV meds and drips verified by this RN and wirer passenger car ZI Epps.
[2023-10-21 22:10] LABS: Lactic Acid 1.4 mmol/L (0.7-2.0)
[2023-10-21 22:14] LABS: Influenza A QL RT-PCR Negative (Negative); Influenza B QL RT-PCR Negative (Negative); RSV RNA, RT-PCR Negative (Negative); SARS-CoV-2 RNA PCR Negative (Negative)
--- NOTE | 2023-10-21 22:14 | PC.NURSE ---
ERP decides to intubate patient. Patient agreeable to intubation.
[2023-10-21 22:24] LABS: Troponin I 0.093 ng/mL (0.000-0.034)
[2023-10-21] MEDS: RAPID SEQUENCE INTUBATION KIT 1 EACH (22:26)
[2023-10-21] MEDS: fentaNYL CITRATE INJ (*CRX) 100 MCG/2 ML VIAL (22:36)
[2023-10-21] MEDS: MIDAZOLAM 100MG/NS 100ML(*CRX) 100 MG/100 ML BAG IV CONT (22:47)
[2023-10-21] MEDS: FENTANYL 2,500MCG/NS250ML(*CRX 2,500 MCG/250 ML BAG 15 MCG IV CONT (22:48)
--- NOTE | 2023-10-21 22:56 | PC.NURSE ---
2225 ERP gives vervbal order to give 20 of etomidate, 100 of STACIE for intubation. Meds given at 2225 107bpm, 98% via BVM by RT, 14 RR, 133/63 bp. ERP intubates patient with 7.5 ET tube, 23 at the lip. +color change, visible chest rise and fall, bilateral breath sounds. ERP also places 16 tamazight OG, 65 at lip secured to ET tube. 2230 VORB to give 100mcg fentanyl IVP and 2mg IVP, then start drips at ordered rates. IVP 100mcg fentanly and 2 mg versed given at 2235. Xray called to verify placement of ET tube and OG.
--- NOTE | 2023-10-21 23:40 | PM.IMHP ---
H&P: HPI History of Present Illness Date/Time: 10/21/23 23:40 Chief Complaint: Altered mental status Narrative: 73-year-old male with past medical history of diabetes, diastolic congestive heart failure, right-sided heart failure with right ventricular enlargement and hypokinesis, atrial fibrillation on chronic anticoagulation with Coumadin, CABG, [employer]tronic pacemaker placement, obstructive sleep apnea, essential hypertension and chronic venous stasis dermatitis who presented to the ER via EMS due to family's concerns the patient being altered. According to ER documentation the patient's son stated the patient had been having cough and flu-like symptoms for several days. After he had lunch she began having rigors and chills. The patient's son suspect that the patient was confused and ended up taking his nighttime Valium and gabapentin when he thought he was taking Tylenol. Patient became more lethargic and confused and family called EMS for the patient to be evaluated. On EMS arrival to patient's home the patient was hypoxic with sats in the 80s and with hypotension in the field. Blood pressures on arrival to the hospital were in the 80s and 90s systolic. On arrival to the ER the patient was febrile with a T-max of 101.6?. Blood cultures and urine cultures were obtained. The patient received 1 L of IV fluid via EMS and 1 or 2 L of IV fluid bolus in the ER. He remained hypotensive and had a left IJ placed by ER provider. Patient's blood pressures remain low despite fluids and Levophed was initiated. After receiving IV fluids and antibiotic therapy the patient's respiratory status declined and although initial ABG demonstrated more from metabolic acidosis repeat VBG demonstrated acute hypercapnic respiratory failure with respiratory acidosis. The patient subsequently underwent rapid sequence intubation. CT of chest abdomen pelvis demonstrated opacities concerning for combination of pneumonia atelectasis and edema. Given patient's clinical presentation pneumonia more likely. There was also a large amount of stool noted scattered throughout the colon consistent with constipation. The patient's bilateral lower extremities were erythematous and warm to touch bilaterally. He had open wound to the top of the right foot with cleaned base. Patient's overall condition of skin was poor and nursing had to give patient bath immediately on arrival to the floor due to loose skin debris attached the patient. Patient and nonblanching color changes to the 2nd toe of the right foot but no open wounds on the toe and a small open wound to the bottom of the right foot just under the 2nd and 3rd toe without obvious drainage. HPI was obtained from review of past medical records, a physician and nurse communication, and review of EMS reports. The patient is intubated and sedated and is unable to participate in history process. Review of Systems Review of Systems: ROS unobtainable: Yes unobtainable due to endotracheal tube PMFSH Past Medical History Medical History (Updated 10/22/23 @ 03:43 by Araceli Jacobs DO) Anemia Arthritis Atrial fibrillation (04/20/17) On chronic anticoagulation with warfarin CAD (coronary artery disease), autologous vein bypass graft Candidiasis of other urogenital sites Chronic venous stasis dermatitis of both lower extremities Diabetes mellitus Diabetic peripheral neuropathy Erectile dysfunction Essential hypertension Hemochromatosis However patient's iron studies demonstrate a low iron level (12/2020), normal transferrin (in 2019) and normal hemoglobin and now actually has what appears bandemia chronic disease Mixed hyperlipidemia (04/20/17) Obesity (BMI 35.0-39.9 without comorbidity) SAKSHI on CPAP (03/2019) CPAP of 7 Pacemaker Peripheral artery disease Rhabdomyolysis Sick sinus syndrome (04/18/17) Urge urinary incontinence Surgical History Surgical History H/O right he
[2023-10-22] VITALS (57 sets, daily range): BP systolic 75–140; BP diastolic 42–65; PULSE 69–98; RESP 12–19; TEMP 36.5–39.3; O2SAT 90–100; BMI 40.5
--- NOTE | 2023-10-22 | ECHO_ITS ---
Patient Info Name: Diego Marquez Age: 73 years : 1950 Gender: Male Ht: 68 in Wt: 269 lbs BSA: 2.48 m2 HR: 73 bpm Heart Rhythm: Indeterminant Technical Quality: Fair Exam Date: 10/22/2023 7:44 AM Exam Location: Echo Lab Patient Status: Inpatient Admit Date: 10/21/2023 Staff Ordering Physician: Araceli Jacobs DO Hot Tar Roofer: Esther aCstro RDCS Attending Provider: Araceli Jacobs DO Referring Physician: Reynaldo SHEA; Exam Type: CA echo dop color flow w con Study Info Indications - respiratory failure Complete two-dimensional, color flow and Doppler transthoracic echocardiogram is performed with contrast to opacify the left ventricle and to improve the deliniation of the left ventricle endocardial borders. Summary 1. Technically challenging echocardiogram performed in patient on mechanical ventilator. 2. Definity contrast improved visualization. 3. Left ventricular hypertrophy with normal appearing systolic. 4. Small amount of MR. 5. Mild tricuspid regurgitation velocity suggests PA systolic pressure approximately 55 mm of Hg. 6. Irregular rhythm, suspect atrial fibrillation. Left Ventricle Left ventricular chamber dimension is normal. Left ventricular systolic function is normal, estimated at 60-65%. There is mild concentric increased left ventricular wall thickness. The left ventricular diastolic function is indeterminate. Right Ventricle Right ventricular chamber dimension is mildly enlarged. Left Atria Left atrial chamber dimension is normal. Right Atria Right atrial chamber dimension is normal. Aortic Valve The aortic valve is trileaflet. There is mild aortic valve sclerosis. There is no aortic valve stenosis. Pulmonic Valve The pulmonic valve is not well visualized. Mitral Valve The mitral valve has normal leaflets. There is trace mitral valve regurgitation. The mitral valve annulus is mildly calcified. Tricuspid Valve The tricuspid valve leaflets are not well visualized. Pericardium/Pleural The pericardium appears normal. Aorta The aortic root size at the sinus of Valsalva is normal. Left Ventricular Outflow Tract Name Value Normal LVOT 2D LVOT Diameter 2.07 cm LVOT Doppler LVOT Peak Gradient 12 mmHg LVOT Mean Gradient 8 mmHg LVOT VTI 36.42 cm LVOT VTI/AV VTI Ratio 0.98 LVOT Stroke Volume 122.19 ml LVOT CO 8.25 l/min LVOT CI 3.33 L/min/m2 Pulmonic Valve Name Value Normal PV Doppler PV Peak Gradient 4 mmHg Mitral Valve Name Value Normal MV Doppler
[2023-10-22 00:38] LABS: CRP 5.6 mg/dL (<1.0)
[2023-10-22 00:52] LABS: Procalcitonin 3.4 ng/mL
--- NOTE | 2023-10-22 01:17 | ADMGEN ---
This patient, Diego Marquez Sr., was admitted to Intensive Care Unit-1. Patient/family oriented to hospital policies and general routines including ID bracelet, bed and alarms, visiting hours, pain management, procedures, bathroom and other care routines, personal items, smoking policy, room service/diet, and visiting hours. Information on how to activate the Rapid Response Team has been discussed. Patient/Family are encouraged to report perceived risks to care and to ask questions if they do not understand what they are told or what they should do.
[2023-10-22] MEDS: PIPERACILLN/TAZ 3.375GM/NS50ML 3.375 GM/50 ML BAG IVPB ×4 (03:00→17:22)
[2023-10-22 03:36] LABS: Alveolar/Arterial O2 Gradient 154.4 mmHg; Base Excess ABG -1.1 mEq/l (+/-2.0); Carboxyhemoglobin 1.4 % THb (0-2.0); Fractional Inspired Oxygen 50 %; HCO3 ABG 23.7 mEq/l (22.0-26.0); Methemoglobin ABG 0.3 %THb (0-1.5); Oxygen Content ABG 17.2 %vol (16.0-22.0); Oxyhemoglobin 97.7 % THb (90.0-100.0); PCO2 ABG 39.7 mmHg (35.0-45.0); PO2 ABG 157.4 mmHg (80.0-100.0); PO2 FiO2 Ratio Arterial Blood 3.15 %; Reduced Hemoglobin 0.6 %THb (0-5.0); Total Hemoglobin 12.3 g/dL (12.0-18.0); pH ABG 7.393 (7.350-7.450)
[2023-10-22 03:38] LABS: Device VENTILATOR; Modified Allen's Test Pass; Site Drawn RIGHT RADIAL
[2023-10-22 03:39] LABS: Arterial Blood Gas PEEP 5 cmH2O; Arterial Blood Gas Tidal Volume 500 ml; Arterial Blood Gas Vent Mode CMV; Arterial Blood Gas Ventilator rate 18 /MIN
[2023-10-22] MEDS: CENTRAL LINE FLUSH 10 ML IV PUSH ×3 (06:18→21:47)
[2023-10-22 06:23] LABS: Hematocrit 39.5 % (42.0-52.0); Mean Corpuscular HGB Conc 30.4 g/dl (32-36); Mean Corpuscular Hemoglobin 25.9 pg (26-34); Mean Corpuscular Volume 85.3 fl (80-100); Mean Platelet Volume 9.3 fl (7.4-10.4); Platelet Count Result 171 k/mm3 (150-375); Red Blood Count 4.63 M/mm3 (4.6-6.20); Red Cell Distribution Width 22.1 % (11.5-14.5); White Blood Count 23.7 K/mm3 (4.5-10.0)
[2023-10-22 06:32] LABS: Alanine Aminotransferase 12 U/L (6-50); Albumin Level 3.3 g/dL (3.5-5.1); Alkaline Phosphatase 68 U/L (38-126); Anion Gap 7 mmol/L (4-12); Aspartate Amino Transferase 24 U/L (17-59); Blood Urea Nitrogen 22 mg/dL (9-20); Calcium 7.7 mg/dL (8.4-10.2); Carbon Dioxide 27 mmol/L (22-30); Chloride 96 mmol/L (98-107); Estimated CRCL calculation 57 ml/min; Estimated Glomerular Filt Rate 54; Glucose 265 mg/dL (65-110); Magnesium 1.9 mg/dL (1.6-2.3); Phosphorus 3.6 mg/dL (2.5-4.5); Potassium 4.4 mmol/L (3.4-5.0); Sodium 130 mmol/L (137-145)
[2023-10-22 06:33] LABS: INR 3.1; Prothrombin Time 32.8 Seconds (11.1-14.7)
[2023-10-22] MEDS: INSULIN ASPART (*BKC) 100 UNITS/ML SUB-Q ×4 (06:51→20:11)
[2023-10-22] MEDS: PERFLUTREN LIPID MICROSPHERES 1.5 ML VIAL DILUTED TO 10 ML TOTAL VOLUME IV PUSH (07:50)
[2023-10-22 08:12] LABS: Band Neutrophils Percent 5 % (0-6); Lymphocytes Absolute Manual 0.71 K/mm3 (1.1-4.5); Lymphocytes Percent Manual 3 % (18-44); Monocytes Absolute Manual 0.94 K/mm3 (0.1-0.90); Monocytes Percent Manual 4 % (3-9); Neutrophils Absolute Manual 22.04 K/mm3 (1.3-6.7); Neutrophils Percent Manual 88 % (46-73); Total Cells Counted 100
[2023-10-22 08:13] LABS: Anisocytosis 1+; Platelet Estimate Adequate (Adequate); Poikilocytosis 1+; Polychromasia 1+
[2023-10-22 08:14] LABS: Schistocytes None Seen
[2023-10-22] MEDS: IPRATROPIUM 0.5 MG/ALBUTEROL SULFATE 2.5 MG AMPUL.NEB 3 ML INHALATION ×3 (08:22→20:15)
[2023-10-22] MEDS: PANTOPRAZOLE SODIUM IV 40 MG VIAL IV PUSH (08:40)
[2023-10-22] MEDS: INSULIN GLARGINE (*BKC) 100 UNITS/ML 15 UNITS SUB-Q (08:40)
[2023-10-22] MEDS: polyethylene glycoL 3350 17 GM POWD.PACK PO (08:40)
[2023-10-22] MEDS: CALCIUM GLUC 2,000 MG/NS 100ML 2,000 MG/100 ML BAG 100 MG IVPB (08:42)
[2023-10-22 09:05] LABS: Glucose Point of Care 244 mg/dl (65-105)
--- NOTE | 2023-10-22 09:05 | WPDCNINT ---
Assessment and Plan Assessment and plan (1) Acute respiratory failure with hypoxia and hypercapnia: Code(s): J96.01 - Acute respiratory failure with hypoxia; J96.02 - Acute respiratory failure with hypercapnia Status: Acute Assessment and Plan: multifactorial acute respiratory failure secondary to pulmonary edema, pneumonia patient now intubated and sedated and on mechanical ventilation. Chest x-ray and ABG reviewed. Increase PEEP to 8 hold diuresis at this time due to sepsis and shock continue vancomycin, Zosyn and doxycycline blood and sputum cultures urine Legionella and pneumococcal antigen viral PCR was negative (2) Septic shock: Code(s): A41.9 - Sepsis, unspecified organism; R65.21 - Severe sepsis with septic shock Status: Acute Assessment and Plan: septic shock secondary to pneumonia and cellulitis of right lower extremity antibiotics as above hold further IV fluids due to concern of congestive heart failure and pulmonary edema Levophed titration to keep mean arterial pressure (3) Candidiasis of other urogenital sites: Code(s): B37.49 - Other urogenital candidiasis Status: Acute Assessment and Plan: tolnaftate (4) Type 2 diabetes mellitus with hyperglycemia, with long-term current use of insulin: Code(s): E11.65 - Type 2 diabetes mellitus with hyperglycemia; Z79.4 - vermin exterminator (current) use of insulin Status: Acute Assessment and Plan: continue sliding scale add Lantus (5) Pneumonia: Qualifiers: Laterality: unspecified laterality Lung location: lower lobe of lung Pneumonia type: due to unspecified organism Qualified Code(s): J18.9 - Pneumonia, unspecified organism Code(s): J18.9 - Pneumonia, unspecified organism Status: Acute Assessment and Plan: see above (6) Atrial fibrillation: Onset Date: 04/20/17 Code(s): I48.91 - Unspecified atrial fibrillation Status: Chronic Assessment and Plan: controlled rhythm. Anticoagulated with warfarin. Once INR is subtherapeutic we will transition to subcutaneous Lovenox while inpatient (7) CHF (congestive heart failure): Code(s): I50.9 - Heart failure, unspecified Status: Inactive Assessment and Plan: see above check echo (8) Chronic venous stasis dermatitis of both lower extremities: Code(s): I87.2 - Venous insufficiency (chronic) (peripheral) Status: Inactive Assessment and Plan: check lower extremity Dopplers (9) Pulmonary edema: Code(s): J81.1 - Chronic pulmonary edema Status: Acute Assessment and Plan: see above (10) Cellulitis: Code(s): L03.90 - Cellulitis, unspecified Status: Acute Assessment and Plan: see above Plan DVT prophylaxis - anticoagulated with warfarin. Monitor INR Stress ulcer prophylaxis - PPI Nutrition - start Tube Feeds Code Status - Full Code Total Critical Care Time - 35 minutes Due to a high probability of clinically significant, life threatening deterioration, the patient required my highest level of preparedness to intervene emergently and I personally spent this critical care time directly and personally managing the patient. This critical care time included obtaining a history; examining the patient; pulse oximetry; ordering and review of studies; arranging urgent treatment with development of a management plan; evaluation of patient's response to treatment; frequent reassessment; and discussions with other providers. It was exclusive of separately billable procedures and treating other patients and teaching time. Please see Assessment and Plan section and the rest of the note for further information on patient assessment and treatment Inner Layer Scrubber Tender Consult Note Consult date: 10/22/23 Reason for consult: septic shock, acute respiratory failure HPI: Diego Marquez Sr. is a 73 year old male Review o
[2023-10-22] MEDS: DOXYCYCLINE 100 MG/NS 100 ML 100 MG/100 ML BAG IVPB ×2 (10:33→21:47)
[2023-10-22] MEDS: TOLNAFTATE 1% POWDER 45 GM BTL 1 APPLIC TOPICAL ×2 (10:34→20:11)
[2023-10-22] MEDS: ROSUVASTATIN 10 MG TABLET PO (10:34)
--- NOTE | 2023-10-22 10:42 | IVDEFINITY ---
Prior to administration of IV Definity the patient was educated on the risks and benefits of the imaging enhancing agent including potential adverse side effects. The patient verbalized understanding. Allergies were verified. No exclusion criteria were identified and at least one of the following inclusion criteria were met: 1) physician request, 2) patient technically difficult to image (per the [place] [employer] guidelines of two or more segments not discernable within the apical view), or 3) questionable left ventricular function. ?
[2023-10-22] MEDS: ACETAMINOPHEN 650 MG SUPPOSITORY RECTAL (10:50)
[2023-10-22 11:35] LABS: Procalcitonin 6.1 ng/mL
[2023-10-22 12:08] LABS: Glucose Point of Care 199 mg/dl (65-105)
[2023-10-22] MEDS: ACETAMINOPHEN 325 MG TABLET 650 MG PO (14:21)
[2023-10-22] MEDS: VANCOMYCIN 1,500 MG/NS 500 ML 1,500 MG/500 ML BAG 250 MG IVPB (14:21)
[2023-10-22] MEDS: FENTANYL 2,500MCG/NS250ML(*CRX 2,500 MCG/250 ML BAG 15 MCG IV CONT (15:22)
--- NOTE | 2023-10-22 16:24 | PM.IMPN ---
Progress Note: A&P Assessment and Plan (1) Acute respiratory failure with hypoxia and hypercapnia: Code(s): J96.01 - Acute respiratory failure with hypoxia; J96.02 - Acute respiratory failure with hypercapnia Status: Acute (2) Septic shock: Code(s): A41.9 - Sepsis, unspecified organism; R65.21 - Severe sepsis with septic shock Status: Acute Plan The patient has combination of sepsis and acute respiratory failure from cellulitis and pneumonia. 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 Defer start of Lovenox to hall monitor. Currently on vancomycin Zosyn and doxycycline. Quad viral screen negative. Vent management per hall monitor. Patient is full code and critically ill Subjective Date/time seen: 10/22/23 16:24 Interval history: Overnight events reviewed. Patient continues to be intubated and sedated Review of Systems Review of Systems: All systems reviewed & are unremarkable except as noted in HPI and below (Subjective) Exam Const: Other: Sedated Eyes: Pupils: Equal, round and reactive pupils present Neck: Neck: supple Resp: Other: Coarse mechanical breath sounds with wheezing Cardio: Rate: regular rate Rhythm: abnormal rhythm GI: GI Palp: Yes Soft to palpation Extrem: Other: Stasis dermatitis Objective Data Vital Signs Vital Signs: Vital Signs - 24 hr 10/21/23 17:29 10/21/23 19:45 10/21/23 19:46 Temperature 101.6 F H 100.5 F H 100.5 F H Pulse Rate 83 76 Respiratory Rate 22 H 18 Blood Pressure 98/61 L Pulse Oximetry 95 98 Oxygen Delivery Room Air Nasal Cannula Oxygen Flow Rate 2 Fraction of Inspired Oxygen 10/21/23 19:31 10/21/23 19:32 10/21/23 19:38 Temperature 101.2 F H 101.2 F H 101.2 F H Pulse Rate 66 63 79 Respiratory Rate 16 16 17 Blood Pressure 86/51 L 90/53 L Pulse Oximetry 98 98 98 Oxygen Delivery Oxygen Flow Rate Fraction of Inspired Oxygen 10/21/23 19:45 10/21/23 19:46 10/21/23 20:36 Temperature 100.4 F H 100.7 F H Pulse Rate 81 77 Respiratory Rate 19 18 Blood Pressure 98/61 L Pulse Oximetry 98 98 97 Oxygen Delivery Nasal Cannula Oxygen Flow Rate 2 Fraction of Inspired Oxygen 10/21/23 19:47 10/21/23 20:21 10/21/23 20:22 Temperature 100.8 F H 100.6 F H 100.6 F H Pulse Rate 70 68 72 Respiratory Rate 18 16 15 Blood Pressure 95/55 L Pulse Oximetry 98 95 95 Oxygen Delivery Oxygen Flow Rate Fraction of Inspired Oxygen 10/21/23 20:30 10/21/23 20:31 10/21/23 20:45 Temperature 100.6 F H 100.5 F H 100.3 F H Pulse Rate 74 72 77 Respiratory Rate 16 16 16 Blood Pressure 91/51 L Pulse Oximetry 92 96 98 Oxygen Delivery Oxygen Flow Rate Fraction of Inspired Oxygen 10/21/23 20:46 10/21/23 21:46 10/21/23 20:47 Temperature 100.3 F H 100.3 F H Pulse Rate 76 73 72 Respiratory Rate 16 15 Blood Pressure 92/50 L 100/51 L Pulse Oximetry 98 98 Oxygen Delivery Oxygen Flow Rate Fraction of Inspired Oxygen 10/21/23 21:00 10/21/23 21:01 10/21/23 21:29 Temperature 100.1 F H 100.1 F H 99.9 F H Pulse Rate 79 80 74 Respiratory Rate 16 17 15 Blood Pressure 93/48 L Pulse Oximetry 98 98 98 Oxygen Delivery Oxygen Flow Rate Fraction of Inspired Oxygen 10/21/23 21:30 10/21/23 21:31 10/21/23 21:45 Temperature 99.9 F H 99.9 F H 99.8 F H Pulse Rate 75 72 Respiratory Rate 15 16 Blood Pressure 93/51 L Pulse Oximetry 98 98 97 Oxygen Delivery Oxygen Flow Rate Fraction of Inspired Oxygen 10/21/23 21:46 10/21/23 22:47 10/21/23 22:48 Temperature 99.8 F H Pulse Rate 82 110 H 105 H Respiratory Rate 17 18 18 Blood Pressure 100/51 L Pulse Oximetry 97 Oxygen Delivery Oxygen Flow Rate Fraction of Inspired Oxygen 10/21/23 21:47 10/21/23 22:16 10/21/23 22:22 Temperature 99.8 F H 99.5 F 99.4 F Pulse Rate 73 79 84 Respiratory Rate 15 17 18 Blood Pressure 133/63 Pulse Oximetry 97 95 96 Oxygen Delive
[2023-10-22 17:23] LABS: Glucose Point of Care 216 mg/dl (65-105)
[2023-10-22] MEDS: NOREPINEPHRINE 8 MG/D5W 250 ML 8 MG/250 ML BAG 18.75 MG IV CONT (20:06)
[2023-10-22 20:25] LABS: Glucose Point of Care 236 mg/dl (65-105)
[2023-10-23] VITALS (63 sets, daily range): BP systolic 74–133; BP diastolic 42–73; PULSE 62–89; RESP 18–21; TEMP 37.4–38.3; O2SAT 93–100
[2023-10-23] MEDS: PIPERACILLN/TAZ 3.375GM/NS50ML 3.375 GM/50 ML BAG IVPB ×2 (00:03→05:42)
[2023-10-23] MEDS: INSULIN ASPART (*BKC) 100 UNITS/ML SUB-Q ×6 (00:03→20:01)
[2023-10-23] MEDS: ACETAMINOPHEN 325 MG TABLET 650 MG PO (00:03)
[2023-10-23 00:18] LABS: Glucose Point of Care 271 mg/dl (65-105)
[2023-10-23] MEDS: IPRATROPIUM 0.5 MG/ALBUTEROL SULFATE 2.5 MG AMPUL.NEB 3 ML INHALATION ×4 (02:30→19:53)
[2023-10-23 04:29] LABS: Glucose Point of Care 279 mg/dl (65-105)
[2023-10-23 05:36] LABS: Hematocrit 34.2 % (42.0-52.0); Hemoglobin 10.5 g/dL (14.0-18.0); Mean Corpuscular HGB Conc 30.7 g/dl (32-36); Mean Corpuscular Hemoglobin 26.2 pg (26-34); Mean Corpuscular Volume 85.3 fl (80-100); Mean Platelet Volume 9.4 fl (7.4-10.4); Platelet Count Result 159 k/mm3 (150-375); Red Blood Count 4.01 M/mm3 (4.6-6.20); Red Cell Distribution Width 22.4 % (11.5-14.5); White Blood Count 15.3 K/mm3 (4.5-10.0)
[2023-10-23] MEDS: CENTRAL LINE FLUSH 20 ML IV PUSH (05:42)
[2023-10-23] MEDS: CENTRAL LINE FLUSH 10 ML IV PUSH ×3 (05:42→21:34)
[2023-10-23 05:47] LABS: Estimated CRCL calculation 38 ml/min; Estimated Glomerular Filt Rate 33
[2023-10-23 05:48] LABS: Anion Gap 8 mmol/L (4-12); Blood Urea Nitrogen 33 mg/dL (9-20); Calcium 7.6 mg/dL (8.4-10.2); Carbon Dioxide 23 mmol/L (22-30); Chloride 97 mmol/L (98-107); Estimated CRCL calculation 38 ml/min; Estimated Glomerular Filt Rate 33; Glucose 275 mg/dL (65-110); Potassium 4.6 mmol/L (3.4-5.0); Sodium 128 mmol/L (137-145)
[2023-10-23 06:07] LABS: Alveolar/Arterial O2 Gradient 68.6 mmHg; Base Excess ABG -6.1 mEq/l (+/-2.0); Carboxyhemoglobin 1.8 % THb (0-2.0); Fractional Inspired Oxygen 30 %; HCO3 ABG 20.4 mEq/l (22.0-26.0); Methemoglobin ABG 0.3 %THb (0-1.5); Oxygen Content ABG 21.9 %vol (16.0-22.0); Oxygen Saturation ABG 96.4 % (95.0-100.0); Oxyhemoglobin 95.3 % THb (90.0-100.0); PCO2 ABG 43.7 mmHg (35.0-45.0); PO2 FiO2 Ratio Arterial Blood 3.13 %; Reduced Hemoglobin 2.6 %THb (0-5.0); Total Hemoglobin 16.3 g/dL (12.0-18.0)
[2023-10-23 06:08] LABS: Site Drawn RIGHT RADIAL; pH ABG 7.287 (7.350-7.450)
[2023-10-23 06:09] LABS: Arterial Blood Gas PEEP 8 cmH2O; Arterial Blood Gas Vent Mode CMV; Arterial Blood Gas Ventilator rate 18 /MIN; Device VENTILATOR; Modified Allen's Test Pass
[2023-10-23 06:10] LABS: Arterial Blood Gas Tidal Volume 500 ml
[2023-10-23 08:20] LABS: Glucose Point of Care 279 mg/dl (65-105)
--- NOTE | 2023-10-23 08:20 | WPDINTPN ---
Progress Note: A&P Assessment and Plan (1) Acute respiratory failure with hypoxia and hypercapnia: Code(s): J96.01 - Acute respiratory failure with hypoxia; J96.02 - Acute respiratory failure with hypercapnia Status: Acute Assessment and Plan: multifactorial acute respiratory failure secondary to pulmonary edema, pneumonia patient now intubated and sedated and on mechanical ventilation. Chest x-ray and ABG reviewed. Increase PEEP to 8 and rate to 20 hold diuresis at this time due to sepsis and shock currently on vancomycin, Zosyn and doxycycline. switch Zosyn to the cefepime in light of worsening renal function blood and sputum cultures sent depending urine Legionella and pneumococcal antigen viral PCR was negative (2) Septic shock: Code(s): A41.9 - Sepsis, unspecified organism; R65.21 - Severe sepsis with septic shock Status: Acute Assessment and Plan: septic shock secondary to pneumonia and cellulitis of right lower extremity antibiotics as above continue Levophed Will give additional IV fluids in light of worsening renal function and add 25% albumin Levophed titration to keep mean arterial pressure (3) Candidiasis of other urogenital sites: Code(s): B37.49 - Other urogenital candidiasis Status: Acute Assessment and Plan: tolnaftate (4) Type 2 diabetes mellitus with hyperglycemia, with long-term current use of insulin: Code(s): E11.65 - Type 2 diabetes mellitus with hyperglycemia; Z79.4 - intermediate teacher (current) use of insulin Status: Acute Assessment and Plan: continue sliding scale increased Lantus (5) Pneumonia: Qualifiers: Laterality: unspecified laterality Lung location: lower lobe of lung Pneumonia type: due to unspecified organism Qualified Code(s): J18.9 - Pneumonia, unspecified organism Code(s): J18.9 - Pneumonia, unspecified organism Status: Acute Assessment and Plan: see above (6) Atrial fibrillation: Onset Date: 04/20/17 Code(s): I48.91 - Unspecified atrial fibrillation Status: Chronic Assessment and Plan: controlled rhythm. Anticoagulated with warfarin. Once INR is subtherapeutic we will transition to subcutaneous Lovenox or IV heparin while inpatient (7) CHF (congestive heart failure): Code(s): I50.9 - Heart failure, unspecified Status: Inactive Assessment and Plan: see above echo Summary 1. Technically challenging echocardiogram performed in patient on mechanical ventilator. 2. Definity contrast improved visualization. 3. Left ventricular hypertrophy with normal appearing systolic. 4. Small amount of MR. 5. Mild tricuspid regurgitation velocity suggests PA systolic pressure approximately 55 mm of Hg. 6. Irregular rhythm, suspect atrial fibrillation. (8) Chronic venous stasis dermatitis of both lower extremities: Code(s): I87.2 - Venous insufficiency (chronic) (peripheral) Status: Inactive Assessment and Plan: negative although poor quality study lower extremity Dopplers (9) Pulmonary edema: Code(s): J81.1 - Chronic pulmonary edema Status: Acute Assessment and Plan: see above (10) Cellulitis: Code(s): L03.90 - Cellulitis, unspecified Status: Acute Assessment and Plan: see above (11) Acute kidney injury: Code(s): N17.9 - Acute kidney failure, unspecified Status: Acute Assessment and Plan: creatinine increased to 2.0. Will give additional 500 mL NS bolus cautious IV fluid infusion over next 24 hours 25% albumin monitor urine output electrolytes and creatinine CT abdomen pelvis did not show any obstruction or hydronephrosis if creatinine does not improve will consult nephrology Plan DVT prophylaxis - anticoagulated with warfarin. Monitor INR. Will transition to heparin once INR is subtherapeutic Stress ulcer prophylaxis - PP
[2023-10-23] MEDS: FENTANYL 2,500MCG/NS250ML(*CRX 2,500 MCG/250 ML BAG 15 MCG IV CONT ×2 (08:34→23:36)
[2023-10-23] MEDS: CALCIUM GLUC 2,000 MG/NS 100ML 2,000 MG/100 ML BAG 100 MG IVPB (08:39)
[2023-10-23] MEDS: PANTOPRAZOLE SODIUM IV 40 MG VIAL IV PUSH (08:44)
[2023-10-23] MEDS: ROSUVASTATIN 10 MG TABLET PO (08:44)
[2023-10-23] MEDS: TOLNAFTATE 1% POWDER 45 GM BTL 1 APPLIC TOPICAL ×2 (08:44→20:02)
[2023-10-23] MEDS: polyethylene glycoL 3350 17 GM POWD.PACK PO (08:44)
[2023-10-23] MEDS: ALBUMIN HUMAN 25% 25 GM/100 ML 100 ML IVPB ×3 (08:45→20:01)
[2023-10-23] MEDS: CEFEPIME 1 GM/NS 50 ML 1 GM/50 ML BAG IVPB ×2 (08:56→20:00)
[2023-10-23] MEDS: INSULIN GLARGINE (*BKC) 100 UNITS/ML 30 UNITS SUB-Q (09:06)
[2023-10-23] MEDS: SODIUM CHLORIDE 0.9% IV 1,000 ML 100 ML IV CONT ×2 (09:30→19:46)
[2023-10-23] MEDS: SODIUM CHLORIDE 0.9% IV 500 ML IV CONT (09:30)
[2023-10-23 09:50] LABS: MRSA (PCR) NOT DETECTED (NOT DETECTE)
[2023-10-23] MEDS: VANCOMYCIN 1,500 MG/NS 500 ML 1,500 MG/500 ML BAG 250 MG IVPB (09:51)
[2023-10-23] MEDS: DOXYCYCLINE 100 MG/NS 100 ML 100 MG/100 ML BAG IVPB ×2 (10:21→21:34)
[2023-10-23 12:18] LABS: Glucose Point of Care 253 mg/dl (65-105)
[2023-10-23 15:30] LABS: MRSA (PCR) NOT DETECTED (NOT DETECTE)
[2023-10-23 16:14] LABS: Glucose Point of Care 280 mg/dl (65-105)
--- NOTE | 2023-10-23 17:39 | PM.IMPN ---
Progress Note: A&P Assessment and Plan (1) Cellulitis: Code(s): L03.90 - Cellulitis, unspecified Status: Acute (2) Pulmonary edema: Code(s): J81.1 - Chronic pulmonary edema Status: Acute (3) Acute respiratory failure with hypoxia and hypercapnia: Code(s): J96.01 - Acute respiratory failure with hypoxia; J96.02 - Acute respiratory failure with hypercapnia Status: Acute (4) Candidiasis of other urogenital sites: Code(s): B37.49 - Other urogenital candidiasis Status: Acute (5) Septic shock: Code(s): A41.9 - Sepsis, unspecified organism; R65.21 - Severe sepsis with septic shock Status: Acute (6) Atrial fibrillation: Onset Date: 04/20/17 Code(s): I48.91 - Unspecified atrial fibrillation Status: Chronic (7) Pneumonia: Qualifiers: Laterality: unspecified laterality Lung location: lower lobe of lung Pneumonia type: due to unspecified organism Qualified Code(s): J18.9 - Pneumonia, unspecified organism Code(s): J18.9 - Pneumonia, unspecified organism Status: Acute (8) CHF (congestive heart failure): Code(s): I50.9 - Heart failure, unspecified Status: Inactive (9) Acute kidney injury: Code(s): N17.9 - Acute kidney failure, unspecified Status: Acute Plan Mr. Marquez is a 73-year-old male with a history of morbid obesity, diabetes with long-term use of insulin and neuropathy, diastolic congestive heart failure, right-sided heart failure with right ventricular enlargement and hypokinesis, atrial fibrillation on chronic anticoagulation with Coumadin, the status post CABG, status post Medtronic ppm, SAKSHI on CPAP, essential hypertension, hyperlipidemia, chronic venous stasis dermatitis, urge incontinence. The patient is brought to [place] ER via EMS due to family's concerns that he was altered. According to chart review the patient's son stated the patient had cough and flu-like symptoms for several days. After lunch prior to admission began having rigors and chills. There was some concern that the patient may have accidentally taken Valium and gabapentin when he thought he was taking Tylenol. Patient became more lethargic and confused and that is when family called EMS. On arrival he was hypoxic and hypotensive. He was febrile with a T-max of a 101.6? F. blood and urine cultures were obtained. He received 1 L of IV fluid via EMS and 1-2 L of IV fluid in [place] ER. Remained hypotensive, left triple-lumen catheter IJ placed in the ER, Levophed was started. Antibiotic started. Patient's respiratory status declined, patient was intubated. He was hypercapnic. CT of chest abdomen pelvis demonstrated opacities concerning for combined pneumonia atelectasis and edema. Large amount of stool noted scattered throughout the colon consistent with constipation. Bilateral lower extremities noted to be erythematous and warm to touch bilaterally, open wound to the top of the right foot with clean base. Overall condition was poor, nursing gave the patient a bath immediately on arrival to the floor due to loose skin debris attached to the patient. On 3rd day of admission the patient remains intubated. Tube feeds have been started. # acute respiratory failure with hypoxia and hypercapnia -status: -currently intubated, holding diuresis due to sepsis # diastolic congestive heart failure # right heart failure -status: -as above and below # severe sepsis with shock -status: -received volume resuscitation # community-acquired bacterial pneumonia -status: -continue antibiotic # diabetes mellitus with long-term use of insulin -status: -continue Accu-Cheks # venous insufficiency with venous stasis ulcers # cellulitis -status: -wound care evaluation requested # urogenital candidiasis -status: -continue tolfanate # atrial fibrillation on warfarin chronically -status: -continue telemetry # acute kidney injury -
[2023-10-23] MEDS: MIDAZOLAM 100MG/NS 100ML(*CRX) 100 MG/100 ML BAG IV CONT (19:56)
[2023-10-23] MEDS: MINERAL OIL/WHITE PETROLATUM OINTMENT 1 APPLIC EACH EYE (20:00)
[2023-10-23 20:13] LABS: Glucose Point of Care 272 mg/dl (65-105)
[2023-10-24] VITALS (53 sets, daily range): BP systolic 86–123; BP diastolic 45–87; PULSE 62–114; RESP 20–21; TEMP 36.6–38.1; O2SAT 91–99; BMI 41.4
[2023-10-24] MEDS: INSULIN ASPART (*BKC) 100 UNITS/ML SUB-Q ×6 (00:04→20:38)
[2023-10-24 00:10] LABS: Glucose Point of Care 316 mg/dl (65-105)
[2023-10-24] MEDS: IPRATROPIUM 0.5 MG/ALBUTEROL SULFATE 2.5 MG AMPUL.NEB 3 ML INHALATION ×4 (02:21→19:55)
[2023-10-24] MEDS: NOREPINEPHRINE 8 MG/D5W 250 ML 8 MG/250 ML BAG 3.75 MG IV CONT (02:33)
[2023-10-24] MEDS: ALBUMIN HUMAN 25% 25 GM/100 ML 100 ML IVPB (02:33)
[2023-10-24 04:32] LABS: Glucose Point of Care 291 mg/dl (65-105)
[2023-10-24] MEDS: CENTRAL LINE FLUSH 10 ML IV PUSH ×3 (05:27→22:05)
[2023-10-24 05:29] LABS: Hematocrit 31.5 % (42.0-52.0); Hemoglobin 9.7 g/dL (14.0-18.0); Mean Corpuscular HGB Conc 30.8 g/dl (32-36); Mean Corpuscular Hemoglobin 26.2 pg (26-34); Mean Corpuscular Volume 85.1 fl (80-100); Mean Platelet Volume 9.8 fl (7.4-10.4); Platelet Count Result 125 k/mm3 (150-375); Red Cell Distribution Width 22.6 % (11.5-14.5); White Blood Count 10.7 K/mm3 (4.5-10.0)
[2023-10-24 05:45] LABS: Alveolar/Arterial O2 Gradient 80.2 mmHg; Base Excess ABG -6.4 mEq/l (+/-2.0); Carboxyhemoglobin 1.1 % THb (0-2.0); Fractional Inspired Oxygen 30 %; HCO3 ABG 18.8 mEq/l (22.0-26.0); Methemoglobin ABG 0.3 %THb (0-1.5); Oxygen Content ABG 14.2 %vol (16.0-22.0); Oxygen Saturation ABG 96.6 % (95.0-100.0); Oxyhemoglobin 95.6 % THb (90.0-100.0); PCO2 ABG 35.9 mmHg (35.0-45.0); PO2 ABG 91.5 mmHg (80.0-100.0); PO2 FiO2 Ratio Arterial Blood 3.05 %; Total Hemoglobin 10.5 g/dL (12.0-18.0); pH ABG 7.336 (7.350-7.450)
[2023-10-24 05:46] LABS: Alanine Aminotransferase 15 U/L (6-50); Albumin Level 3.4 g/dL (3.5-5.1); Alkaline Phosphatase 74 U/L (38-126); Anion Gap 11 mmol/L (4-12); Aspartate Amino Transferase 36 U/L (17-59); Bilirubin,Total 2.3 mg/dL (0.2-1.3); Blood Urea Nitrogen 39 mg/dL (9-20); Calcium 7.8 mg/dL (8.4-10.2); Carbon Dioxide 19 mmol/L (22-30); Chloride 100 mmol/L (98-107); Estimated CRCL calculation 35 ml/min; Estimated Glomerular Filt Rate 29; Glucose 329 mg/dL (65-110); Magnesium 1.9 mg/dL (1.6-2.3); Potassium 4.4 mmol/L (3.4-5.0); Sodium 130 mmol/L (137-145)
[2023-10-24 05:46] LABS: Device VENTILATOR; Modified Allen's Test Unable to perform; Site Drawn RIGHT RADIAL
[2023-10-24 05:47] LABS: Arterial Blood Gas PEEP 8 cmH2O; Arterial Blood Gas Tidal Volume 500 ml; Arterial Blood Gas Vent Mode CMV; Arterial Blood Gas Ventilator rate 20 /MIN
[2023-10-24 05:51] LABS: Vancomycin Trough 17.3 ug/mL (10.0-20.0)
[2023-10-24] MEDS: VANCOMYCIN 1,500 MG/NS 500 ML 1,500 MG/500 ML BAG 250 MG IVPB (06:22)
[2023-10-24] MEDS: SODIUM BICARBONATE 8.4% 50 MEQ/50 ML SYRINGE IV PUSH (07:46)
[2023-10-24 07:56] LABS: INR 3.3; Prothrombin Time 34.1 Seconds (11.1-14.7)
[2023-10-24 07:57] LABS: Partial Thromboplastin Time 75.5 Seconds (22.3-36.8)
[2023-10-24 08:01] LABS: Glucose Point of Care 339 mg/dl (65-105)
[2023-10-24 08:02] LABS: Lactic Acid Reflex 1.3 mmol/L (0.7-2.0)
[2023-10-24 08:04] LABS: Creatine Kinase 458 U/L (55-170)
--- NOTE | 2023-10-24 08:07 | ECG_ITS ---
Test Date: 2023-10-24 08:48:22 Measurements Intervals [place] Rate: 65 P: 0 NV: 0 QRS: -5 QRSD: 92 T: -14 QT: 402 QTc: 418 Interpretive Statements ATRIAL FIBRILLATION WITH INTERMITTENT VENTRICULAR PACING ELECTRONIC VENTRICULAR PACEMAKER -- CONTOUR ANALYSIS BASED ON INTRINSIC RHYTHM ABNORMAL ECG Electronically Signed On 10-24-2023 11:02:28 CDT by Jg Devries M.D.
--- NOTE | 2023-10-24 08:08 | WPDINTPN ---
Progress Note: A&P Assessment and Plan (1) Acute respiratory failure with hypoxia and hypercapnia: Code(s): J96.01 - Acute respiratory failure with hypoxia; J96.02 - Acute respiratory failure with hypercapnia Status: Acute Assessment and Plan: 10/20: Pt presented with AMS, cough, and flu like symptoms. -respiratory failure is multifactorial acute respiratory failure secondary to pulmonary edema, pneumonia -10/20: intubated -Chest x-ray and ABG reviewed. -on CMV mode of ventilation, peep of 8 and 30% FiO2 - urine Legionella and pneumococcal antigen - viral PCR was negative -Sedated with fentanyl and Versed infusion, maintain RASS of 0 to -2 -hold diuresis at this time due to sepsis and shock (2) Septic shock: Code(s): A41.9 - Sepsis, unspecified organism; R65.21 - Severe sepsis with septic shock Status: Acute Assessment and Plan: Septic shock secondary to pneumonia and cellulitis of right lower extremity -adequately fluid-resuscitated, received additional IV fluids in light of worsening renal function and 25% albumin 10/22 -continue Levophed, maintain MAP > 65 mmHg -continue cefepime and doxycycline -will discontinue vancomycin as sputum and blood cultures were negative -MRSA swab was negative (3) Pneumonia: Qualifiers: Laterality: unspecified laterality Lung location: lower lobe of lung Pneumonia type: due to unspecified organism Qualified Code(s): J18.9 - Pneumonia, unspecified organism Code(s): J18.9 - Pneumonia, unspecified organism Status: Acute Assessment and Plan: Chest x-ray reviewed, continue antibiotics as above -sputum cultures are negative (4) Type 2 diabetes mellitus with hyperglycemia, with long-term current use of insulin: Code(s): E11.65 - Type 2 diabetes mellitus with hyperglycemia; Z79.4 - tablet repair (current) use of insulin Status: Acute Assessment and Plan: Continue Accu-Cheks and sliding scale insulin Increase the Lantus as patient has hyperglycemia (5) Atrial fibrillation: Onset Date: 04/20/17 Code(s): I48.91 - Unspecified atrial fibrillation Status: Chronic Assessment and Plan: Currently rate controlled. Anticoagulated with warfarin. -INR remains 3.3 -will transition to heparin infusion once INR is subtherapeutic (6) CHF (congestive heart failure): Code(s): I50.9 - Heart failure, unspecified Status: Inactive Assessment and Plan: CT chest showed ground-glass opacities, likely a combination of mild pulmonary edema, atelectasis and pneumonia 10/22/2023: Echocardiogram EF of 60-65%, LV hypertrophy with normal LV systolic function, LV diastolic function is indeterminate, right ventricular chamber dimension is mildly enlarged, trace mitral valve regurg. Moderate pulmonary hypertension with RVSP of 56 mmHg (7) Chronic venous stasis dermatitis of both lower extremities: Code(s): I87.2 - Venous insufficiency (chronic) (peripheral) Status: Inactive Assessment and Plan: Bilateral lower extremity swelling, possible cellulitis -10/21: Venous Dopplers were negative bilaterally, sensitivities were decreased by patient body habitus (8) Candidiasis of other urogenital sites: Code(s): B37.49 - Other urogenital candidiasis Status: Acute Assessment and Plan: tolnaftate (9) Pulmonary edema: Code(s): J81.1 - Chronic pulmonary edema Status: Acute Assessment and Plan: Will discuss with Nephrology regarding diuresis (10) Cellulitis: Code(s): L03.90 - Cellulitis, unspecified Status: Acute Assessment and Plan: Continue antibiotics as above (11) Acute kidney injury: Code(s): N17.9 - Acute kidney failure, unspecified Status: Acute Assessment and Plan: Acute kidney injury, baseline creatinine and (1.00-1.30) . Creatinine on admission was stable -received adequate amount of IV fluids, -
[2023-10-24] MEDS: PANTOPRAZOLE SODIUM IV 40 MG VIAL IV PUSH (08:18)
[2023-10-24] MEDS: INSULIN GLARGINE (*BKC) 100 UNITS/ML 50 UNITS SUB-Q (08:20)
[2023-10-24] MEDS: CEFEPIME 1 GM/NS 50 ML 1 GM/50 ML BAG IVPB ×2 (08:21→20:22)
[2023-10-24] MEDS: ROSUVASTATIN 10 MG TABLET PO (08:21)
[2023-10-24] MEDS: MINERAL OIL/WHITE PETROLATUM OINTMENT 1 APPLIC EACH EYE ×2 (08:22→20:29)
[2023-10-24] MEDS: TOLNAFTATE 1% POWDER 45 GM BTL 1 APPLIC TOPICAL ×2 (08:22→20:29)
[2023-10-24 08:49] LABS: Creatinine Urine 191.1 mg/dL; Eosinophil Urine None Seen % (None Seen); Urine Eos QC NAO
[2023-10-24 08:50] LABS: Potassium Urine Random 48.6 meq/L; Sodium Urine Random 16 meq/L
[2023-10-24 08:54] LABS: CRP 30.3 mg/dL (<1.0)
[2023-10-24] MEDS: DOXYCYCLINE 100 MG/NS 100 ML 100 MG/100 ML BAG IVPB ×2 (09:19→22:05)
--- NOTE | 2023-10-24 09:22 | PM.CNNEP ---
Assessment and Plan Assessment and plan (1) Acute kidney injury: Code(s): N17.9 - Acute kidney failure, unspecified Status: Acute Assessment and Plan: as noted by labs today (10/24/23) normal renal function/creatinine at baseline suspect due to renal hypoperfusion with an element of ATN from septic shock, hemodynamic instability, and hypoxia s/p aggressive IVF resuscitation since admission check urine studies, CPK, and renal ultrasound not opposed to a trial of IV diuretics given 9L positive and associated volume overload follow trend of repeat labs and UOP (2) Septic shock: Code(s): A41.9 - Sepsis, unspecified organism; R65.21 - Severe sepsis with septic shock Status: Acute Assessment and Plan: presumed source = pneumonia and right lower extremity cellulitis s/p aggressive IVF resuscitation as well as IV albumin on vasopressor therapy to maintain MAP follow culture data on antibiotics follow trend of hemodynamics (3) Acute respiratory failure with hypoxia and hypercapnia: Code(s): J96.01 - Acute respiratory failure with hypoxia; J96.02 - Acute respiratory failure with hypercapnia Status: Acute Assessment and Plan: due to a combination of pneumonia and pulmonary edema also had cough and flu-like symptoms several days prior to presentation currently on ventilator support viral studies negative trial of IV diuresis today ventilator weaning when more stable (4) Pneumonia: Qualifiers: Laterality: unspecified laterality Lung location: lower lobe of lung Pneumonia type: due to unspecified organism Qualified Code(s): J18.9 - Pneumonia, unspecified organism Code(s): J18.9 - Pneumonia, unspecified organism Status: Acute Assessment and Plan: as noted by admission imaging on antibiotics (5) Cellulitis: Code(s): L03.90 - Cellulitis, unspecified Status: Acute Assessment and Plan: suggested by exam on right lower extremity local wound care on antibiotics (6) Atrial fibrillation: Onset Date: 04/20/17 Code(s): I48.91 - Unspecified atrial fibrillation Status: Chronic Assessment and Plan: rate controlled on anticoagulation (7) Type 2 diabetes mellitus with hyperglycemia, with long-term current use of insulin: Code(s): E11.65 - Type 2 diabetes mellitus with hyperglycemia; Z79.4 - supervisor intermediates (current) use of insulin Status: Acute Assessment and Plan: follow accu-cheks glycemic control per filter tender/hospitalist Case discussed with Dr. Rodriguez. I will continue to follow the patient with you while he remains hospitalized and make further recommendations as deemed necessary. Thank you for allowing me to participate in the care of this patient. History of Present Illness Reason for Consult Consult date: 10/24/23 Reason for consult: acute renal failure Chief Complaint Chief complaint: Mixed resp failure, pna History of Present Illness Narrative: All the information I have obtained is from review of the electronic medical record as well as discussion with the other physicians/ nurses involved in the patient's care as I am unable to get any history from the patient as he is currently intubated and on mechanical ventilation. The patient is a 73-year-old male with a past medical history as outlined below who presented to [facility] Emergency room via EMS due to altered mental status. According to family members, the patient had been having cough and flu-like symptoms for last several days prior to presentation to the ER. It was noted at lunch time earlier in the day, that he was having chills and rigors in associated with confusion. The patient's family thinks that he may have taken the wrong medications yesterday evening... they suspect he wantrf to take Tylenol but may have inadvertently took his nighttime Valium and Gabapentin. His
--- NOTE | 2023-10-24 09:22 | P.CONNP_ITS ---
Assessment and Plan Assessment and plan (1) Acute kidney injury: Code(s): N17.9 - Acute kidney failure, unspecified Status: Acute Assessment and Plan: * as noted by labs today (10/24/23) * normal renal function/creatinine at baseline * suspect due to renal hypoperfusion with an element of ATN from septic shock, h emodynamic instability, and hypoxia * s/p aggressive IVF resuscitation since admission * check urine studies, CPK, and renal ultrasound * not opposed to a trial of IV diuretics given 9L positive and associated volume overload * follow trend of repeat labs and UOP (2) Septic shock: Code(s): A41.9 - Sepsis, unspecified organism; R65.21 - Severe sepsis with septic shock Status: Acute Assessment and Plan: * presumed source = pneumonia and right lower extremity cellulitis * s/p aggressive IVF resuscitation as well as IV albumin * on vasopressor therapy to maintain MAP * follow culture data * on antibiotics * follow trend of hemodynamics (3) Acute respiratory failure with hypoxia and hypercapnia: Code(s): J96.01 - Acute respiratory failure with hypoxia; J96.02 - Acute respiratory failure with hypercapnia Status: Acute Assessment and Plan: * due to a combination of pneumonia and pulmonary edema * also had cough and flu-like symptoms several days prior to presentation * currently on ventilator support * viral studies negative * trial of IV diuresis today * ventilator weaning when more stable (4) Pneumonia: Qualifiers: Laterality: unspecified laterality Lung location: lower lobe of lung Pneumonia type: due to unspecified organism Qualified Code(s): J18.9 - Pneumonia, unspecified organism Code(s): J18.9 - Pneumonia, unspecified organism Status: Acute Assessment and Plan: * as noted by admission imaging * on antibiotics (5) Cellulitis: Code(s): L03.90 - Cellulitis, unspecified Status: Acute Assessment and Plan: * suggested by exam on right lower extremity * local wound care * on antibiotics (6) Atrial fibrillation: Onset Date: 04/20/17 Code(s): I48.91 - Unspecified atrial fibrillation Status: Chronic Assessment and Plan: * rate controlled * on anticoagulation (7) Type 2 diabetes mellitus with hyperglycemia, with long-term current use of insulin: Code(s): E11.65 - Type 2 diabetes mellitus with hyperglycemia; Z79.4 - termite treater (current) use of insulin Status: Acute Assessment and Plan: * follow accu-cheks * glycemic control per senior cytogenetics laboratory director/hospitalist Case discussed with Dr. Rodriguez. I will continue to follow the patient with you while he remains hospitalized and make further recommendations as deemed necessary. Thank you for allowing me to participate in the care of this patient. History of Present Illness Reason for Consult Consult date: 10/24/23 Reason for consult: acute renal failure Chief Complaint Chief complaint: Mixed resp failure, pna History of Present Illness Narrative: All the information I have obtained is from review of the electronic medical record as well as discussion with the other physicians/ nurses involved in the patient's care as I am unable to get any history from the patient as he is currently intubated and on mechanical ventilation. The patient is a 73-year-old male with a past medical history as outlined below who presented to [facility] Emergency room via EMS due to altered mental status. Celina
[2023-10-24] MEDS: METOCLOPRAMIDE HCL INJ 10 MG/2 ML VIAL IV PUSH ×2 (10:26→22:05)
[2023-10-24] MEDS: BUMETANIDE INJ 1 MG/4 ML VIAL 2 MG IV PUSH ×2 (11:25→20:22)
[2023-10-24 12:10] LABS: Glucose Point of Care 303 mg/dl (65-105)
[2023-10-24 16:35] LABS: Glucose Point of Care 249 mg/dl (65-105)
--- NOTE | 2023-10-24 16:51 | PM.IMPN ---
Progress Note: A&P Assessment and Plan (1) Cellulitis: Code(s): L03.90 - Cellulitis, unspecified Status: Acute (2) Pulmonary edema: Code(s): J81.1 - Chronic pulmonary edema Status: Acute (3) Acute respiratory failure with hypoxia and hypercapnia: Code(s): J96.01 - Acute respiratory failure with hypoxia; J96.02 - Acute respiratory failure with hypercapnia Status: Acute (4) Candidiasis of other urogenital sites: Code(s): B37.49 - Other urogenital candidiasis Status: Acute (5) Septic shock: Code(s): A41.9 - Sepsis, unspecified organism; R65.21 - Severe sepsis with septic shock Status: Acute (6) Atrial fibrillation: Onset Date: 04/20/17 Code(s): I48.91 - Unspecified atrial fibrillation Status: Chronic (7) Pneumonia: Qualifiers: Laterality: unspecified laterality Lung location: lower lobe of lung Pneumonia type: due to unspecified organism Qualified Code(s): J18.9 - Pneumonia, unspecified organism Code(s): J18.9 - Pneumonia, unspecified organism Status: Acute (8) CHF (congestive heart failure): Code(s): I50.9 - Heart failure, unspecified Status: Inactive (9) Acute kidney injury: Code(s): N17.9 - Acute kidney failure, unspecified Status: Acute Plan Mr. Marquez is a 73-year-old male with a history of morbid obesity, diabetes with long-term use of insulin and neuropathy, diastolic congestive heart failure, right-sided heart failure with right ventricular enlargement and hypokinesis, atrial fibrillation on chronic anticoagulation with Coumadin, the status post CABG, status post Medtronic ppm, SAKSHI on CPAP, essential hypertension, hyperlipidemia, chronic venous stasis dermatitis, urge incontinence. The patient is brought to [place] ER via EMS due to family's concerns that he was altered. According to chart review the patient's son stated the patient had cough and flu-like symptoms for several days. After lunch prior to admission began having rigors and chills. There was some concern that the patient may have accidentally taken Valium and gabapentin when he thought he was taking Tylenol. Patient became more lethargic and confused and that is when family called EMS. On arrival he was hypoxic and hypotensive. He was febrile with a T-max of a 101.6? F. blood and urine cultures were obtained. He received 1 L of IV fluid via EMS and 1-2 L of IV fluid in [place] ER. Remained hypotensive, left triple-lumen catheter IJ placed in the ER, Levophed was started. Antibiotic started. Patient's respiratory status declined, patient was intubated. He was hypercapnic. CT of chest abdomen pelvis demonstrated opacities concerning for combined pneumonia atelectasis and edema. Large amount of stool noted scattered throughout the colon consistent with constipation. Bilateral lower extremities noted to be erythematous and warm to touch bilaterally, open wound to the top of the right foot with clean base. Overall condition was poor, nursing gave the patient a bath immediately on arrival to the floor due to loose skin debris attached to the patient. On 3rd day of admission the patient remains intubated. Tube feeds have been started. # acute respiratory failure with hypoxia and hypercapnia -status: -currently intubated, holding diuresis due to sepsis ENCEPHALOPATHY -continue to monitor neurologic status off of sedation # diastolic congestive heart failure # right heart failure -status: -as above and below # severe sepsis with shock -status: -received volume resuscitation # community-acquired bacterial pneumonia -status: -continue antibiotic, vancomycin discontinued # diabetes mellitus with long-term use of insulin -status: -continue Accu-Cheks # venous insufficiency with venous stasis ulcers # cellulitis -status: -wound care evaluation requested # urogenital candidiasis -status: -continue tolfanate # atr
[2023-10-24 20:45] LABS: Glucose Point of Care 251 mg/dl (65-105)
[2023-10-25] VITALS (72 sets, daily range): BP systolic 72–146; BP diastolic 48–75; PULSE 67–85; RESP 20–22; TEMP 37–38; O2SAT 86–97
[2023-10-25] MEDS: INSULIN ASPART (*BKC) 100 UNITS/ML SUB-Q ×5 (00:05→20:54)
[2023-10-25 00:15] LABS: Glucose Point of Care 236 mg/dl (65-105)
[2023-10-25] MEDS: IPRATROPIUM 0.5 MG/ALBUTEROL SULFATE 2.5 MG AMPUL.NEB 3 ML INHALATION ×4 (02:01→20:15)
[2023-10-25 04:32] LABS: Glucose Point of Care 238 mg/dl (65-105)
[2023-10-25] MEDS: CENTRAL LINE FLUSH 10 ML IV PUSH ×3 (05:16→20:45)
[2023-10-25 05:24] LABS: Alveolar/Arterial O2 Gradient 63.4 mmHg; Carboxyhemoglobin 1.2 % THb (0-2.0); Fractional Inspired Oxygen 30 %; HCO3 ABG 23.6 mEq/l (22.0-26.0); Methemoglobin ABG 0.3 %THb (0-1.5); Oxygen Content ABG 16.3 %vol (16.0-22.0); Oxygen Saturation ABG 96.4 % (95.0-100.0); Oxyhemoglobin 95.7 % THb (90.0-100.0); PCO2 ABG 48.8 mmHg (35.0-45.0); PO2 ABG 93.2 mmHg (80.0-100.0); PO2 FiO2 Ratio Arterial Blood 3.11 %; Reduced Hemoglobin 2.8 %THb (0-5.0); pH ABG 7.303 (7.350-7.450)
[2023-10-25 05:30] LABS: Hematocrit 32.1 % (42.0-52.0); Hemoglobin 9.9 g/dL (14.0-18.0); Mean Corpuscular HGB Conc 30.8 g/dl (32-36); Mean Corpuscular Hemoglobin 26.2 pg (26-34); Mean Corpuscular Volume 84.9 fl (80-100); Mean Platelet Volume 9.8 fl (7.4-10.4); Platelet Count Result 137 k/mm3 (150-375); Red Blood Count 3.78 M/mm3 (4.6-6.20); Red Cell Distribution Width 22.8 % (11.5-14.5)
[2023-10-25 05:38] LABS: INR 2.9; Prothrombin Time 30.7 Seconds (11.1-14.7)
[2023-10-25 05:40] LABS: Partial Thromboplastin Time 74.3 Seconds (22.3-36.8)
[2023-10-25 05:42] LABS: Lactic Acid Reflex 1.1 mmol/L (0.7-2.0)
[2023-10-25 05:44] LABS: Alanine Aminotransferase 15 U/L (6-50); Albumin Level 3.1 g/dL (3.5-5.1); Alkaline Phosphatase 80 U/L (38-126); Anion Gap 10 mmol/L (4-12); Aspartate Amino Transferase 34 U/L (17-59); Bilirubin,Total 2.2 mg/dL (0.2-1.3); Blood Urea Nitrogen 45 mg/dL (9-20); Calcium 7.7 mg/dL (8.4-10.2); Carbon Dioxide 22 mmol/L (22-30); Chloride 100 mmol/L (98-107); Estimated CRCL calculation 31 ml/min; Estimated Glomerular Filt Rate 25; Glucose 221 mg/dL (65-110); Magnesium 1.8 mg/dL (1.6-2.3); Phosphorus 3.5 mg/dL (2.5-4.5); Potassium 4.5 mmol/L (3.4-5.0); Sodium 132 mmol/L (137-145)
[2023-10-25 05:55] LABS: Band Neutrophils Percent 4 % (0-6); Eosinophils Absolute Manual 0.11 K/mm3 (0.02-0.50); Eosinophils Percent Manual 1 % (0-4); Lymphocytes Absolute Manual 0.66 K/mm3 (1.1-4.5); Monocytes Absolute Manual 0.44 K/mm3 (0.1-0.90); Monocytes Percent Manual 4 % (3-9); Neutrophils Absolute Manual 9.79 K/mm3 (1.3-6.7); Neutrophils Percent Manual 85 % (46-73); Platelet Estimate Decreased (Adequate); Total Cells Counted 100
[2023-10-25 05:56] LABS: Anisocytosis 1+; Burr Cells 1+; Schistocytes None Seen
[2023-10-25 06:02] LABS: Arterial Blood Gas Vent Mode CMV; Arterial Blood Gas Ventilator rate 20 /MIN; Device VENTILATOR; Modified Allen's Test Pass; Site Drawn RIGHT RADIAL
[2023-10-25 06:03] LABS: Arterial Blood Gas PEEP 8 cmH2O; Arterial Blood Gas Tidal Volume 500 ml
[2023-10-25 07:05] LABS: Hepatitis B Surface Antigen Negative (Negative)
[2023-10-25 07:22] LABS: Hepatitis B Surface Anti Res Negative
[2023-10-25] MEDS: PANTOPRAZOLE SODIUM IV 40 MG VIAL IV PUSH (08:50)
[2023-10-25] MEDS: CEFEPIME 1 GM/NS 50 ML 1 GM/50 ML BAG IVPB ×2 (08:50→20:42)
[2023-10-25] MEDS: ALBUMIN HUMAN 25% 25 GM/100 ML 100 ML IVPB ×3 (08:50→20:42)
[2023-10-25] MEDS: INSULIN GLARGINE (*BKC) 100 UNITS/ML 60 UNITS SUB-Q (09:00)
[2023-10-25] MEDS: TOLNAFTATE 1% POWDER 45 GM BTL 1 APPLIC TOPICAL ×2 (09:01→20:45)
[2023-10-25] MEDS: ROSUVASTATIN 10 MG TABLET PO (09:01)
[2023-10-25] MEDS: MINERAL OIL/WHITE PETROLATUM OINTMENT 1 APPLIC EACH EYE ×2 (09:01→20:45)
[2023-10-25 09:04] LABS: Glucose Point of Care 199 mg/dl (65-105)
[2023-10-25] MEDS: ACETAMINOPHEN 325 MG TABLET 650 MG PO (09:04)
[2023-10-25] MEDS: BUMETANIDE INJ 1 MG/4 ML VIAL 2 MG IV PUSH ×2 (09:05→20:43)
[2023-10-25] MEDS: DOXYCYCLINE 100 MG/NS 100 ML 100 MG/100 ML BAG IVPB ×2 (09:06→20:56)
--- NOTE | 2023-10-25 09:34 | PM.PNNEP ---
Progress Note: A&P Assessment and Plan (1) Acute kidney injury: Code(s): N17.9 - Acute kidney failure, unspecified Status: Acute Assessment and Plan: as noted by labs since 10/23/23 normal renal function/creatinine at baseline suspect due to renal hypoperfusion with an element of ATN from septic shock, hemodynamic instability, and hypoxia s/p aggressive IVF resuscitation since admission evaluation to date noted: renal ultrasound normal urine electrolytes prerena (despite evidence of volume overload/pulmonary edema) urine eosinophil negative CPK mildly elevated (not enough to affect kidney function) repeat trial of IV diuretics today (with goal of maintaining MAP as well) at risk for needing K 12 PRINCIPAL/dialysis follow trend of repeat labs and UOP (2) Septic shock: Code(s): A41.9 - Sepsis, unspecified organism; R65.21 - Severe sepsis with septic shock Status: Acute Assessment and Plan: presumed source = pneumonia and right lower extremity cellulitis s/p aggressive IVF resuscitation as well as IV albumin on vasopressor therapy to maintain MAP follow culture data on antibiotics follow trend of hemodynamics (3) Acute respiratory failure with hypoxia and hypercapnia: Code(s): J96.01 - Acute respiratory failure with hypoxia; J96.02 - Acute respiratory failure with hypercapnia Status: Acute Assessment and Plan: due to a combination of pneumonia and pulmonary edema also had cough and flu-like symptoms several days prior to presentation currently on ventilator support viral studies negative trial of IV diuretics again today ventilator weaning when more stable (4) Pneumonia: Qualifiers: Laterality: unspecified laterality Lung location: lower lobe of lung Pneumonia type: due to unspecified organism Qualified Code(s): J18.9 - Pneumonia, unspecified organism Code(s): J18.9 - Pneumonia, unspecified organism Status: Acute Assessment and Plan: as noted by admission imaging on antibiotics (5) Cellulitis: Code(s): L03.90 - Cellulitis, unspecified Status: Acute Assessment and Plan: suggested by exam on right lower extremity local wound care on antibiotics (6) Atrial fibrillation: Onset Date: 04/20/17 Code(s): I48.91 - Unspecified atrial fibrillation Status: Chronic Assessment and Plan: rate controlled on anticoagulation (7) Type 2 diabetes mellitus with hyperglycemia, with long-term current use of insulin: Code(s): E11.65 - Type 2 diabetes mellitus with hyperglycemia; Z79.4 - shuttle buggy operator (current) use of insulin Status: Acute Assessment and Plan: follow accu-cheks glycemic control per microbiology quality control technician/hospitalist Case discussed with Dr. Rodriguez. Will continue to follow. Subjective Date/time seen: 10/25/23 09:34 Interval history: Follow-up for acute kidney injury/acute renal failure. Remains intubated (off sedation) and on mechanical ventilation at the time of my visit; remains on low dose levophed gtt to maintain MAP; reasonable urine output in the last 24 hours following trial of IV bumex although urine output noted in association with higher MAPs; renal function relatively stable as well; despite being off sedation, not opening eyes or following commands. Exam Narrative: General: elderly Caucasianb male intubated and on mechanical ventilation Heart: normal S1 and S2; no rub Lungs: coarse breath sounds Abdomen: soft, nontender, nondistended, positive bowel sounds Extremities: no cyanosis or clubbing; 1+ edema Skin: chronic venous dermatitis Objective Data Vital Signs Vital Signs: Vital Signs Temp Pulse Resp BP Pulse Ox O2 Del Method FiO2 10/25/23 09:31 99.8 F H 74 22 H 121/58 L 95 10/25/23 09:15 100.0 F H 80 22 H 113/57 L 94 10/25/23 09:00 100.0 F H 82 22 H 96/50 L 94 10/25/23 08:45 99.9 F H
--- NOTE | 2023-10-25 09:34 | P.PNNP_ITS ---
Progress Note: A&P Assessment and Plan (1) Acute kidney injury: Code(s): N17.9 - Acute kidney failure, unspecified Status: Acute Assessment and Plan: * as noted by labs since 10/23/23 * normal renal function/creatinine at baseline * suspect due to renal hypoperfusion with an element of ATN from septic shock, hemodynamic instability, and hypoxia * s/p aggressive IVF resuscitation since admission * evaluation to date noted: * renal ultrasound normal * urine electrolytes prerena (despite evidence of volume overload/pulmonary edema) * urine eosinophil negative * CPK mildly elevated (not enough to affect kidney function) * repeat trial of IV diuretics today (with goal of maintaining MAP as well) * at risk for needing SPECIAL EDUCATION PRESCHOOL TEACHER/dialysis * follow trend of repeat labs and UOP (2) Septic shock: Code(s): A41.9 - Sepsis, unspecified organism; R65.21 - Severe sepsis with septic shock Status: Acute Assessment and Plan: * presumed source = pneumonia and right lower extremity cellulitis * s/p aggressive IVF resuscitation as well as IV albumin * on vasopressor therapy to maintain MAP * follow culture data * on antibiotics * follow trend of hemodynamics (3) Acute respiratory failure with hypoxia and hypercapnia: Code(s): J96.01 - Acute respiratory failure with hypoxia; J96.02 - Acute respiratory failure with hypercapnia Status: Acute Assessment and Plan: * due to a combination of pneumonia and pulmonary edema * also had cough and flu-like symptoms several days prior to presentation * currently on ventilator support * viral studies negative * trial of IV diuretics again today * ventilator weaning when more stable (4) Pneumonia: Qualifiers: Laterality: unspecified laterality Lung location: lower lobe of lung Pneumonia type: due to unspecified organism Qualified Code(s): J18.9 - Pneumonia, unspecified organism Code(s): J18.9 - Pneumonia, unspecified organism Status: Acute Assessment and Plan: * as noted by admission imaging * on antibiotics (5) Cellulitis: Code(s): L03.90 - Cellulitis, unspecified Status: Acute Assessment and Plan: * suggested by exam on right lower extremity * local wound care * on antibiotics (6) Atrial fibrillation: Onset Date: 04/20/17 Code(s): I48.91 - Unspecified atrial fibrillation Status: Chronic Assessment and Plan: * rate controlled * on anticoagulation (7) Type 2 diabetes mellitus with hyperglycemia, with long-term current use of insulin: Code(s): E11.65 - Type 2 diabetes mellitus with hyperglycemia; Z79.4 - detention (current) use of insulin Status: Acute Assessment and Plan: * follow accu-cheks * glycemic control per hvac installation technician/hospitalist Case discussed with Dr. Rodriguez. Will continue to follow. Subjective Date/time seen: 10/25/23 09:34 Interval history: Follow-up for acute kidney injury/acute renal failure. Remains intubated (off sedation) and on mechanical ventilation at the time of my visit; remains on low dose levophed gtt to maintain MAP; reasonable urine output in the last 24 hours following trial of IV bumex although urine output noted in association with higher MAPs; renal function relatively stable as well; despite being off sedation, not opening eyes or following commands. Exam Narrative: General: elderly Caucasianb male intubated and on mechanical ventilation Heart: normal S1
--- NOTE | 2023-10-25 10:35 | PCNFU ---
Nutrition Follow-Up Complete: Inadequate energy intake related to sepsis, PNA as evidenced by mechanical ventilation, need for full tube feeding, possible ileus goal: Meet estimated nutrition needs We will continue current goal. Pt current nutrition is Vital AF 1.2. Last recorded weight is 123.6 kg, no weight to report. Bowel Motility: +Bm reported 10/23 Labs Reviewed:Glu 221, Cr 2.5, GFR 3.1, Na 132, Alb 3.1,Hgb 9.9 Meds Noted:Levophed, Miralax, Bumex, Albumin, Lantus Skin: right leg-venous stasis ulcers. Additional Notes: Patient remains on mechanical vent. No sedation. Tube feedings on hold for elevate residuals. Plans to restart tube feedings, recommend goal rate at 50 ml/hr. Flush 30 ml q 4 hours. Agree with diet orders. Monitor tube feeding orders, tolerance, labs, weights, stool patterns, plan of care Follow up Tuesday and Tuesday. Daily in ICU rounds
--- NOTE | 2023-10-25 11:11 | WPDINTPN ---
Progress Note: A&P Assessment and Plan (1) Acute respiratory failure with hypoxia and hypercapnia: Code(s): J96.01 - Acute respiratory failure with hypoxia; J96.02 - Acute respiratory failure with hypercapnia Status: Acute Assessment and Plan: 10/20: Pt presented with AMS, cough, and flu like symptoms. -respiratory failure is multifactorial acute respiratory failure secondary to pulmonary edema, pneumonia -10/20: intubated -Chest x-ray and ABG reviewed. -on CMV mode of ventilation, peep of 8 and 30% FiO2 - urine Legionella and pneumococcal antigen - viral PCR was negative -off all sedation since 10/24/2023 (2) Septic shock: Code(s): A41.9 - Sepsis, unspecified organism; R65.21 - Severe sepsis with septic shock Status: Acute Assessment and Plan: Septic shock secondary to pneumonia and cellulitis of right lower extremity -adequately fluid-resuscitated, received additional IV fluids in light of worsening renal function and 25% albumin 10/22 -continue Levophed, maintain MAP > 65 mmHg -continue cefepime and doxycycline -10/23: will discontinue vancomycin as sputum and blood cultures were negative and MRSA swab was negative (3) Pneumonia: Qualifiers: Laterality: unspecified laterality Lung location: lower lobe of lung Pneumonia type: due to unspecified organism Qualified Code(s): J18.9 - Pneumonia, unspecified organism Code(s): J18.9 - Pneumonia, unspecified organism Status: Acute Assessment and Plan: Chest x-ray reviewed, continue antibiotics as above -sputum cultures are negative (4) Type 2 diabetes mellitus with hyperglycemia, with long-term current use of insulin: Code(s): E11.65 - Type 2 diabetes mellitus with hyperglycemia; Z79.4 - terminal make up operator (current) use of insulin Status: Acute Assessment and Plan: Continue Accu-Cheks and sliding scale insulin Increase the Lantus as patient has hyperglycemia (5) Atrial fibrillation: Onset Date: 04/20/17 Code(s): I48.91 - Unspecified atrial fibrillation Status: Chronic Assessment and Plan: Currently rate controlled. Anticoagulated with warfarin. -INR remains 2.9 -will transition to heparin infusion once INR is subtherapeutic (6) CHF (congestive heart failure): Code(s): I50.9 - Heart failure, unspecified Status: Inactive Assessment and Plan: CT chest showed ground-glass opacities, likely a combination of mild pulmonary edema, atelectasis and pneumonia 10/22/2023: Echocardiogram EF of 60-65%, LV hypertrophy with normal LV systolic function, LV diastolic function is indeterminate, right ventricular chamber dimension is mildly enlarged, trace mitral valve regurg. Moderate pulmonary hypertension with RVSP of 56 mmHg (7) Chronic venous stasis dermatitis of both lower extremities: Code(s): I87.2 - Venous insufficiency (chronic) (peripheral) Status: Inactive Assessment and Plan: Bilateral lower extremity swelling, possible cellulitis -10/21: Venous Dopplers were negative bilaterally, sensitivities were decreased by patient body habitus (8) Candidiasis of other urogenital sites: Code(s): B37.49 - Other urogenital candidiasis Status: Acute Assessment and Plan: tolnaftate (9) Pulmonary edema: Code(s): J81.1 - Chronic pulmonary edema Status: Acute Assessment and Plan: Will discuss with Nephrology regarding diuresis (10) Cellulitis: Code(s): L03.90 - Cellulitis, unspecified Status: Acute Assessment and Plan: Continue antibiotics as above (11) Acute kidney injury: Code(s): N17.9 - Acute kidney failure, unspecified Status: Acute Assessment and Plan: Acute kidney injury, baseline creatinine and (1.00-1.30) . Creatinine on admission was stable -received adequate amount of IV fluids, -10/22: Worsening renal function, Patient was given IV fluids and albumin, -ob
[2023-10-25 12:08] LABS: Glucose Point of Care 223 mg/dl (65-105)
[2023-10-25 16:43] LABS: Chloride Rand Ur <20 mmol/L (32-290); Creatinine Random Urine 171 mg/dL (20-320)
[2023-10-25 16:59] LABS: Glucose Point of Care 212 mg/dl (65-105)
--- NOTE | 2023-10-25 17:08 | PM.IMPN ---
Progress Note: A&P Assessment and Plan (1) Cellulitis: Code(s): L03.90 - Cellulitis, unspecified Status: Acute (2) Pulmonary edema: Code(s): J81.1 - Chronic pulmonary edema Status: Acute (3) Acute respiratory failure with hypoxia and hypercapnia: Code(s): J96.01 - Acute respiratory failure with hypoxia; J96.02 - Acute respiratory failure with hypercapnia Status: Acute (4) Candidiasis of other urogenital sites: Code(s): B37.49 - Other urogenital candidiasis Status: Acute (5) Septic shock: Code(s): A41.9 - Sepsis, unspecified organism; R65.21 - Severe sepsis with septic shock Status: Acute (6) Atrial fibrillation: Onset Date: 04/20/17 Code(s): I48.91 - Unspecified atrial fibrillation Status: Chronic (7) Pneumonia: Qualifiers: Laterality: unspecified laterality Lung location: lower lobe of lung Pneumonia type: due to unspecified organism Qualified Code(s): J18.9 - Pneumonia, unspecified organism Code(s): J18.9 - Pneumonia, unspecified organism Status: Acute (8) CHF (congestive heart failure): Code(s): I50.9 - Heart failure, unspecified Status: Inactive (9) Acute kidney injury: Code(s): N17.9 - Acute kidney failure, unspecified Status: Acute Plan Mr. Marquez is a 73-year-old male with a history of morbid obesity, diabetes with long-term use of insulin and neuropathy, diastolic congestive heart failure, right-sided heart failure with right ventricular enlargement and hypokinesis, atrial fibrillation on chronic anticoagulation with Coumadin, the status post CABG, status post [employer] ppm, SAKSHI on CPAP, essential hypertension, hyperlipidemia, chronic venous stasis dermatitis, urge incontinence. The patient is brought to [place] [facility] via EMS due to family's concerns that he was altered. According to chart review the patient's son stated the patient had cough and flu-like symptoms for several days. After lunch prior to admission began having rigors and chills. There was some concern that the patient may have accidentally taken Valium and gabapentin when he thought he was taking Tylenol. Patient became more lethargic and confused and that is when family called EMS. On arrival he was hypoxic and hypotensive. He was febrile with a T-max of a 101.6? F. blood and urine cultures were obtained. He received 1 L of IV fluid via EMS and 1-2 L of IV fluid in [place] [facility]. Remained hypotensive, left triple-lumen catheter IJ placed in the ER, Levophed was started. Antibiotic started. Patient's respiratory status declined, patient was intubated. He was hypercapnic. CT of chest abdomen pelvis demonstrated opacities concerning for combined pneumonia atelectasis and edema. Large amount of stool noted scattered throughout the colon consistent with constipation. Bilateral lower extremities noted to be erythematous and warm to touch bilaterally, open wound to the top of the right foot with clean base. Overall condition was poor, nursing gave the patient a bath immediately on arrival to the floor due to loose skin debris attached to the patient. On 3rd day of admission the patient remains intubated. Tube feeds have been started. # acute respiratory failure with hypoxia and hypercapnia -status: -currently intubated, holding diuresis due to sepsis ENCEPHALOPATHY -continue to monitor neurologic status off of sedation. Continue to assess status # diastolic congestive heart failure # right heart failure -status: -as above and below # severe sepsis with shock -status: -received volume resuscitation # community-acquired bacterial pneumonia -status: -continue antibiotic, vancomycin discontinued # diabetes mellitus with long-term use of insulin -status: -continue Accu-Cheks -Lantus has been increased. # venous insufficiency with venous stasis ulcers # cellulitis -status: -wound care evaluation requested # urogen
[2023-10-25 21:17] LABS: Glucose Point of Care 220 mg/dl (65-105)
[2023-10-25 23:38] LABS: Glucose Point of Care 238 mg/dl (65-105)
[2023-10-26] VITALS (66 sets, daily range): BP systolic 89–151; BP diastolic 47–72; PULSE 74–85; RESP 22; TEMP 37.6–38.6; O2SAT 91–98; BMI 40.4
[2023-10-26] MEDS: INSULIN ASPART (*BKC) 100 UNITS/ML SUB-Q ×6 (00:15→21:54)
[2023-10-26] MEDS: ALBUMIN HUMAN 25% 25 GM/100 ML 100 ML IVPB (02:32)
[2023-10-26] MEDS: IPRATROPIUM 0.5 MG/ALBUTEROL SULFATE 2.5 MG AMPUL.NEB 3 ML INHALATION ×4 (02:42→20:32)
[2023-10-26] MEDS: CENTRAL LINE FLUSH 10 ML IV PUSH ×3 (04:41→22:07)
[2023-10-26 05:14] LABS: Glucose Point of Care 257 mg/dl (65-105)
[2023-10-26 05:27] LABS: Alveolar/Arterial O2 Gradient 86.8 mmHg; Base Excess ABG -1.9 mEq/l (+/-2.0); Fractional Inspired Oxygen 30 %; HCO3 ABG 21.9 mEq/l (22.0-26.0); Methemoglobin ABG 0.3 %THb (0-1.5); Oxygen Saturation ABG 96.9 % (95.0-100.0); Oxyhemoglobin 95.7 % THb (90.0-100.0); PCO2 ABG 33.8 mmHg (35.0-45.0); PO2 ABG 87.4 mmHg (80.0-100.0); PO2 FiO2 Ratio Arterial Blood 2.91 %; Total Hemoglobin 10.3 g/dL (12.0-18.0); pH ABG 7.429 (7.350-7.450)
[2023-10-26 05:29] LABS: Device VENTILATOR; Modified Allen's Test Pass; Site Drawn RIGHT RADIAL
[2023-10-26 05:30] LABS: Arterial Blood Gas PEEP 8 cmH2O; Arterial Blood Gas Tidal Volume 500 ml; Arterial Blood Gas Vent Mode CMV; Arterial Blood Gas Ventilator rate 22 /MIN
[2023-10-26 05:54] LABS: Basophils Percent Auto 0.3 % (0.2-1.2); Eosinophils Absolute Auto 0.1 K/mm3 (0-0.3); Eosinophils Percent Auto 1.2 % (0-4.4); Hematocrit 30.1 % (42.0-52.0); Hemoglobin 9.3 g/dL (14.0-18.0); Immature Granulocyte Absolute 0.14 K/mm3 (0.00-0.031); Immature Granulocyte Percent A 1.5 % (0-0.5); Lymphocytes Absolute Auto 0.58 K/mm3 (0.9-3.2); Lymphocytes Percent Auto 6.1 % (18.3-44.2); Mean Corpuscular HGB Conc 30.9 g/dl (32-36); Mean Corpuscular Hemoglobin 25.5 pg (26-34); Mean Corpuscular Volume 82.7 fl (80-100); Mean Platelet Volume 9.9 fl (7.4-10.4); Monocytes Absolute Auto 0.7 K/mm3 (0.1-0.6); Monocytes Percent Auto 7.6 % (2.6-8.5); Neutrophils Absolute Auto 7.9 K/mm3 (1.3-6.7); Neutrophils Percent Auto 83.3 % (45.5-73.1); Platelet Count Result 152 k/mm3 (150-375); Red Blood Count 3.64 M/mm3 (4.6-6.20); Red Cell Distribution Width 22.4 % (11.5-14.5); White Blood Count 9.5 K/mm3 (4.5-10.0)
[2023-10-26 06:05] LABS: Alanine Aminotransferase 15 U/L (6-50); Albumin Level 3.7 g/dL (3.5-5.1); Alkaline Phosphatase 82 U/L (38-126); Anion Gap 14 mmol/L (4-12); Aspartate Amino Transferase 34 U/L (17-59); Bilirubin,Total 2.8 mg/dL (0.2-1.3); Blood Urea Nitrogen 44 mg/dL (9-20); Calcium 8.1 mg/dL (8.4-10.2); Carbon Dioxide 22 mmol/L (22-30); Chloride 98 mmol/L (98-107); Estimated CRCL calculation 37 ml/min; Estimated Glomerular Filt Rate 31; Glucose 287 mg/dL (65-110); Magnesium 1.7 mg/dL (1.6-2.3); Phosphorus 2.6 mg/dL (2.5-4.5); Potassium 3.7 mmol/L (3.4-5.0); Sodium 134 mmol/L (137-145)
[2023-10-26 07:02] LABS: Anisocytosis 1+; Hypochromasia 1+; Platelet Estimate Adequate (Adequate); Schistocytes None Seen
[2023-10-26 07:51] LABS: Glucose Point of Care 317 mg/dl (65-105)
[2023-10-26] MEDS: POTASSIUM CHLORIDE 20 MEQ PACKET (FOR LIQUID) 40 MEQ FEED TUBE (07:55)
[2023-10-26] MEDS: INSULIN GLARGINE (*BKC) 100 UNITS/ML 70 UNITS SUB-Q (07:55)
[2023-10-26] MEDS: METOCLOPRAMIDE HCL INJ 10 MG/2 ML VIAL IV PUSH ×3 (07:56→17:44)
[2023-10-26] MEDS: MAGNESIUM SULF 2 GM/WATER 50ML 2 GM/50 ML BAG IVPB (07:57)
[2023-10-26] MEDS: MINERAL OIL/WHITE PETROLATUM OINTMENT 1 APPLIC EACH EYE ×2 (07:58→22:07)
[2023-10-26] MEDS: ROSUVASTATIN 10 MG TABLET PO (07:58)
[2023-10-26] MEDS: PANTOPRAZOLE SODIUM IV 40 MG VIAL IV PUSH (07:58)
[2023-10-26] MEDS: BUMETANIDE INJ 1 MG/4 ML VIAL 2 MG IV PUSH ×2 (07:59→21:55)
[2023-10-26] MEDS: TOLNAFTATE 1% POWDER 45 GM BTL 1 APPLIC TOPICAL ×2 (07:59→22:07)
[2023-10-26] MEDS: CEFEPIME 2 GM/NS 50 ML 2 GM/50 ML BAG IVPB ×2 (08:18→21:54)
[2023-10-26 08:29] LABS: INR 3.1; Prothrombin Time 32.5 Seconds (11.1-14.7)
--- NOTE | 2023-10-26 08:31 | P.PNNP_ITS ---
Progress Note: A&P Assessment and Plan (1) Acute kidney injury: Code(s): N17.9 - Acute kidney failure, unspecified Status: Acute Assessment and Plan: * as noted by labs since 10/23/23 * normal renal function/creatinine at baseline * suspect due to renal hypoperfusion with an element of ATN from septic shock, hemodynamic instability, and hypoxia * s/p aggressive IVF resuscitation since admission * evaluation to date noted: * renal ultrasound normal * urine electrolytes prerena (despite evidence of volume overload/pulmonary edema) * urine eosinophil negative * CPK mildly elevated (not enough to affect kidney function) * repeat trial of IV diuretics today (with goal of maintaining MAP as well) * follow trend of repeat labs and UOP (2) Septic shock: Code(s): A41.9 - Sepsis, unspecified organism; R65.21 - Severe sepsis with septic shock Status: Acute Assessment and Plan: * presumed source = pneumonia and right lower extremity cellulitis * s/p aggressive IVF resuscitation as well as IV albumin * on vasopressor therapy to maintain MAP * follow culture data * on antibiotics * follow trend of hemodynamics (3) Acute respiratory failure with hypoxia and hypercapnia: Code(s): J96.01 - Acute respiratory failure with hypoxia; J96.02 - Acute respiratory failure with hypercapnia Status: Acute Assessment and Plan: * due to a combination of pneumonia and pulmonary edema * also had cough and flu-like symptoms several days prior to presentation * currently on ventilator support * viral studies negative * trial of IV diuretics again today * ventilator weaning when more stable (4) Pneumonia: Qualifiers: Laterality: unspecified laterality Lung location: lower lobe of lung Pneumonia type: due to unspecified organism Qualified Code(s): J18.9 - Pneumonia, unspecified organism Code(s): J18.9 - Pneumonia, unspecified organism Status: Acute Assessment and Plan: * as noted by admission imaging * sputum culture with Pseudomonas * on antibiotics (5) Cellulitis: Code(s): L03.90 - Cellulitis, unspecified Status: Acute Assessment and Plan: * suggested by exam on right lower extremity * local wound care * on antibiotics (6) Atrial fibrillation: Onset Date: 04/20/17 Code(s): I48.91 - Unspecified atrial fibrillation Status: Chronic Assessment and Plan: * rate controlled * on anticoagulation (7) Type 2 diabetes mellitus with hyperglycemia, with long-term current use of insulin: Code(s): E11.65 - Type 2 diabetes mellitus with hyperglycemia; Z79.4 - terminal operator (current) use of insulin Status: Acute Assessment and Plan: * follow accu-cheks * glycemic control per counseling program leader/hospitalist Case discussed with Dr. Rodriguez. Will continue to follow. Subjective Date/time seen: 10/26/23 08:31 Interval history: Follow-up for acute kidney injury/acute kidney failure. Renal function/creatinine stable if not improving despite IV diuretics; good urine output noted with use of IV bumex yestereday; still not waking up despite being off sedation; remains on low dose levophed to maintain MAP; tolerating tube feeds at this time. Exam Narrative: General: elderly Caucasianb male intubated and on mechanical ventilation Heart: normal S1 and S2; no rub Lungs: coarse breath sounds Abdomen: soft, nontender, nondistended, positive bowel sounds Extr
--- NOTE | 2023-10-26 08:31 | PM.PNNEP ---
Progress Note: A&P Assessment and Plan (1) Acute kidney injury: Code(s): N17.9 - Acute kidney failure, unspecified Status: Acute Assessment and Plan: as noted by labs since 10/23/23 normal renal function/creatinine at baseline suspect due to renal hypoperfusion with an element of ATN from septic shock, hemodynamic instability, and hypoxia s/p aggressive IVF resuscitation since admission evaluation to date noted: renal ultrasound normal urine electrolytes prerena (despite evidence of volume overload/pulmonary edema) urine eosinophil negative CPK mildly elevated (not enough to affect kidney function) repeat trial of IV diuretics today (with goal of maintaining MAP as well) follow trend of repeat labs and UOP (2) Septic shock: Code(s): A41.9 - Sepsis, unspecified organism; R65.21 - Severe sepsis with septic shock Status: Acute Assessment and Plan: presumed source = pneumonia and right lower extremity cellulitis s/p aggressive IVF resuscitation as well as IV albumin on vasopressor therapy to maintain MAP follow culture data on antibiotics follow trend of hemodynamics (3) Acute respiratory failure with hypoxia and hypercapnia: Code(s): J96.01 - Acute respiratory failure with hypoxia; J96.02 - Acute respiratory failure with hypercapnia Status: Acute Assessment and Plan: due to a combination of pneumonia and pulmonary edema also had cough and flu-like symptoms several days prior to presentation currently on ventilator support viral studies negative trial of IV diuretics again today ventilator weaning when more stable (4) Pneumonia: Qualifiers: Laterality: unspecified laterality Lung location: lower lobe of lung Pneumonia type: due to unspecified organism Qualified Code(s): J18.9 - Pneumonia, unspecified organism Code(s): J18.9 - Pneumonia, unspecified organism Status: Acute Assessment and Plan: as noted by admission imaging sputum culture with Pseudomonas on antibiotics (5) Cellulitis: Code(s): L03.90 - Cellulitis, unspecified Status: Acute Assessment and Plan: suggested by exam on right lower extremity local wound care on antibiotics (6) Atrial fibrillation: Onset Date: 04/20/17 Code(s): I48.91 - Unspecified atrial fibrillation Status: Chronic Assessment and Plan: rate controlled on anticoagulation (7) Type 2 diabetes mellitus with hyperglycemia, with long-term current use of insulin: Code(s): E11.65 - Type 2 diabetes mellitus with hyperglycemia; 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 Rodriguez. Will continue to follow. Subjective Date/time seen: 10/26/23 08:31 Interval history: Follow-up for acute kidney injury/acute kidney failure. Renal function/creatinine stable if not improving despite IV diuretics; good urine output noted with use of IV bumex yestereday; still not waking up despite being off sedation; remains on low dose levophed to maintain MAP; tolerating tube feeds at this time. Exam Narrative: General: elderly Caucasianb male intubated and on mechanical ventilation Heart: normal S1 and S2; no rub Lungs: coarse breath sounds Abdomen: soft, nontender, nondistended, positive bowel sounds Extremities: no cyanosis or clubbing; 1+ edema Skin: chronic venous dermatitis changes Objective Data Vital Signs Vital Signs: Vital Signs Temp Pulse Resp BP Pulse Ox O2 Del Method FiO2 10/26/23 08:30 127/51 L 10/26/23 08:15 136/52 L 10/26/23 08:00 100.1 F H 78 22 H 130/59 L 93 10/26/23 07:45 140/51 L 10/26/23 07:30 105/53 L 10/26/23 07:15 126/48 L 10/26/23 07:00 99.8 F H 78 22 H 124/56 L 96 10/26/23 08:00 100.1 F H 7
[2023-10-26] MEDS: DOXYCYCLINE 100 MG/NS 100 ML 100 MG/100 ML BAG IVPB ×2 (09:48→21:54)
--- NOTE | 2023-10-26 11:00 | PCFNICU ---
ICU Rounding Note: Pt current nutrition is Vital AF 1.2 at 40 ml/hr. Nutrition recommendation:Goal rate at 65 ml/hr Last recorded weight is 120.7 kg, down from 123.6 kg on admit. Bowel Motility: Last BM reported 10/25 Labs Reviewed:Glu 287, BUN 44, Cr 2.1,Na 134 Meds Noted:Protonix, Miralax, Bumex, Albumin, Levophed, Reglan, Lantus. Skin:Venous stasis ulcers-lower legs Additional Notes: Patient remains on mechanical vent. No sedation. Tube feedings are being tolerated of Vital AF 1.2 at 40 ml/hr with plans to increase to 50 ml/hr. Recommend 65 ml/hr for goal rate to better meet caloric needs of 1716 kcal/107 gm protein/1160 ml water. Flush remains at 30 ml q 4 hours. Following daily in ICU rounds. Monitor tube feeding orders, tolerance, labs, weights, stool patterns, plan of care Follow up Tuesday and Tuesday.
[2023-10-26 11:52] LABS: Glucose Point of Care 322 mg/dl (65-105)
--- NOTE | 2023-10-26 13:06 | WPDINTPN ---
Progress Note: A&P Assessment and Plan (1) Acute respiratory failure with hypoxia and hypercapnia: Code(s): J96.01 - Acute respiratory failure with hypoxia; J96.02 - Acute respiratory failure with hypercapnia Status: Acute Assessment and Plan: 10/20: Pt presented with AMS, cough, and flu like symptoms. -respiratory failure is multifactorial acute respiratory failure secondary to pulmonary edema, pneumonia -10/20: intubated -Chest x-ray and ABG reviewed. -on CMV mode of ventilation, peep of 8 and 30% FiO2 - urine Legionella and pneumococcal antigen - viral PCR was negative -will obtain CT chest without contrast along with CT abdomen and pelvis and CT brain without contrast -off all sedation since 10/24/2023 (2) Septic shock: Code(s): A41.9 - Sepsis, unspecified organism; R65.21 - Severe sepsis with septic shock Status: Acute Assessment and Plan: Septic shock secondary to Pseudomonas pneumonia and cellulitis of right lower extremity -adequately fluid-resuscitated, received additional IV fluids in light of worsening renal function and 25% albumin 10/22 -continue Levophed, maintain MAP > 65 mmHg -10/23: will discontinue vancomycin as MRSA screen is negative -10/21: sputum culture growing Pseudomonas pneumonia -will increase cefepime to 2 g q.12 hours. (3) Pneumonia: Qualifiers: Laterality: unspecified laterality Lung location: lower lobe of lung Pneumonia type: due to unspecified organism Qualified Code(s): J18.9 - Pneumonia, unspecified organism Code(s): J18.9 - Pneumonia, unspecified organism Status: Acute Assessment and Plan: Chest x-ray reviewed, continue antibiotics as above -Pseudomonas pneumonia on sputum culture (4) Acute kidney injury: Code(s): N17.9 - Acute kidney failure, unspecified Status: Acute Assessment and Plan: Acute kidney injury, baseline creatinine and (1.00-1.30) . Creatinine on admission was stable -received adequate amount of IV fluids, -10/22: Worsening renal function, Patient was given IV fluids and albumin, -obtain urine lytes, urine eosinophils, CK level -10/24/2023: Renal ultrasound showed normal kidneys and no hydronephrosis -appreciate Nephrology evaluation and recommendation -discuss with Nephrology, was okay with diuresis with Bumex as patient has been significantly volume overloaded since admission -10/23: Patient did respond to diuretics with the caveats that he has better urine output when mean arterial pressures are > 70 mmHg. -10/24: Repeat Bumex after discussing with Nephrology, along with albumin. Have asked the bedside RN to maintain mean arterial pressures > 70 mmHg. In continues to be at risk for dialysis 10/25: Patient responded well to Bumex on 10/25/2023 with significant urine output, improvement in creatinine in negative fluid balance. Will repeat Bumex again today, discussed with Nephrology (5) Cellulitis: Code(s): L03.90 - Cellulitis, unspecified Status: Acute Assessment and Plan: Continue antibiotics as above (6) Type 2 diabetes mellitus with hyperglycemia, with long-term current use of insulin: Code(s): E11.65 - Type 2 diabetes mellitus with hyperglycemia; Z79.4 - half-way (current) use of insulin Status: Acute Assessment and Plan: Continue Accu-Cheks and sliding scale insulin Increase the Lantus as patient has hyperglycemia (7) Atrial fibrillation: Onset Date: 04/20/17 Code(s): I48.91 - Unspecified atrial fibrillation Status: Chronic Assessment and Plan: Currently rate controlled. Anticoagulated with warfarin. -INR remains supratherapeutic this morning -will transition to heparin infusion once INR is subtherapeutic (8) CHF (congestive heart failure): Code(s): I50.9 - Heart failure, unspecified Status: Inactive Assessment and Plan: 10/20: CT chest showed ground-glass opacities, likely a combinat
[2023-10-26] MEDS: NOREPINEPHRINE 8 MG/D5W 250 ML 8 MG/250 ML BAG 3.75 MG IV CONT (13:21)
[2023-10-26 15:18] LABS: Pneumococcal Antigen Urine NOT DETECTED
[2023-10-26 15:47] LABS: Glucose Point of Care 356 mg/dl (65-105)
[2023-10-26] MEDS: ACETAMINOPHEN 325 MG TABLET 650 MG PO ×2 (17:44→22:24)
[2023-10-26 22:29] LABS: Glucose Point of Care 322 mg/dl (65-105)
[2023-10-27] VITALS (31 sets, daily range): BP systolic 92–131; BP diastolic 49–66; PULSE 67–89; RESP 20–23; TEMP 37.1–38.5; O2SAT 96–100
[2023-10-27] MEDS: ALTEPLASE 2 MG VIAL (CATHFLO) IV PUSH ×2 (00:21→00:23)
[2023-10-27] MEDS: METOCLOPRAMIDE HCL INJ 10 MG/2 ML VIAL IV PUSH ×5 (00:21→23:01)
[2023-10-27] MEDS: INSULIN ASPART (*BKC) 100 UNITS/ML SUB-Q ×2 (00:22→12:29)
[2023-10-27 00:36] LABS: Glucose Point of Care 359 mg/dl (65-105)
[2023-10-27] MEDS: IPRATROPIUM 0.5 MG/ALBUTEROL SULFATE 2.5 MG AMPUL.NEB 3 ML INHALATION ×4 (01:35→20:33)
[2023-10-27 04:52] LABS: Alveolar/Arterial O2 Gradient 120.4 mmHg; Base Excess ABG -0.2 mEq/l (+/-2.0); Carboxyhemoglobin 0.9 % THb (0-2.0); Fractional Inspired Oxygen 30 %; HCO3 ABG 22.3 mEq/l (22.0-26.0); Methemoglobin ABG 0.3 %THb (0-1.5); Oxygen Content ABG 11.1 %vol (16.0-22.0); Oxygen Saturation ABG 93.8 % (95.0-100.0); Oxyhemoglobin 91.1 % THb (90.0-100.0); PCO2 ABG 28.2 mmHg (35.0-45.0); PO2 ABG 60.4 mmHg (80.0-100.0); PO2 FiO2 Ratio Arterial Blood 2.01 %; Reduced Hemoglobin 7.7 %THb (0-5.0); Total Hemoglobin 8.6 g/dL (12.0-18.0)
[2023-10-27 04:58] LABS: Device VENTILATOR; Modified Allen's Test Pass; Site Drawn RIGHT RADIAL; pH ABG 7.516 (7.350-7.450)
[2023-10-27 04:59] LABS: Arterial Blood Gas PEEP 8 cmH2O; Arterial Blood Gas Vent Mode CMV
[2023-10-27 05:01] LABS: Arterial Blood Gas Minute Volume 12.5 LPM; Arterial Blood Gas Tidal Volume 558 ml; Arterial Blood Gas Ventilator rate 22 /MIN
[2023-10-27 06:09] LABS: Glucose Point of Care 412 mg/dl (65-105)
[2023-10-27 06:17] LABS: Hematocrit 31.2 % (42.0-52.0); Hemoglobin 9.8 g/dL (14.0-18.0); Mean Corpuscular HGB Conc 31.4 g/dl (32-36); Mean Corpuscular Hemoglobin 25.7 pg (26-34); Mean Corpuscular Volume 81.7 fl (80-100); Mean Platelet Volume 10.2 fl (7.4-10.4); Platelet Count Result 200 k/mm3 (150-375); Red Blood Count 3.82 M/mm3 (4.6-6.20); Red Cell Distribution Width 22.5 % (11.5-14.5); White Blood Count 8.1 K/mm3 (4.5-10.0)
[2023-10-27 06:28] LABS: Alanine Aminotransferase 17 U/L (6-50); Albumin Level 3.4 g/dL (3.5-5.1); Alkaline Phosphatase 116 U/L (38-126); Anion Gap 14 mmol/L (4-12); Aspartate Amino Transferase 42 U/L (17-59); Bilirubin,Total 2.7 mg/dL (0.2-1.3); Blood Urea Nitrogen 48 mg/dL (9-20); Calcium 8.5 mg/dL (8.4-10.2); Carbon Dioxide 24 mmol/L (22-30); Chloride 96 mmol/L (98-107); Estimated CRCL calculation 32 ml/min; Estimated Glomerular Filt Rate 28; Glucose 415 mg/dL (65-110); Magnesium 1.8 mg/dL (1.6-2.3); Potassium 3.5 mmol/L (3.4-5.0); Sodium 134 mmol/L (137-145)
[2023-10-27 06:34] LABS: Prothrombin Time 22.6 Seconds (11.1-14.7)
[2023-10-27] MEDS: INSULIN ASPART (*BKC) 100 UNITS/ML 12 UNITS SUB-Q (06:34)
[2023-10-27] MEDS: CENTRAL LINE FLUSH 10 ML IV PUSH ×3 (06:34→20:54)
[2023-10-27 06:36] LABS: Partial Thromboplastin Time 52.3 Seconds (22.3-36.8)
[2023-10-27 08:13] LABS: Glucose Point of Care 442 mg/dl (65-105)
[2023-10-27] MEDS: MAGNESIUM SULF 2 GM/WATER 50ML 2 GM/50 ML BAG IVPB (08:25)
[2023-10-27] MEDS: HEPARIN SOD/D5W 100 UNITS/ML 25,000 UNITS/250 ML BAG 15 UNITS IV CONT ×2 (08:25→23:39)
[2023-10-27] MEDS: POTASSIUM CHLORIDE 20 MEQ PACKET (FOR LIQUID) 40 MEQ FEED TUBE (08:26)
[2023-10-27] MEDS: ROSUVASTATIN 10 MG TABLET PO (08:27)
[2023-10-27] MEDS: MINERAL OIL/WHITE PETROLATUM OINTMENT 1 APPLIC EACH EYE ×2 (08:27→19:59)
[2023-10-27] MEDS: PANTOPRAZOLE SODIUM IV 40 MG VIAL IV PUSH (08:27)
[2023-10-27] MEDS: TOLNAFTATE 1% POWDER 45 GM BTL 1 APPLIC TOPICAL ×2 (08:27→19:59)
[2023-10-27] MEDS: BISACODYL 10 MG SUPPOSITORY RECTAL (08:28)
[2023-10-27] MEDS: INSULIN GLARGINE (*BKC) 100 UNITS/ML SUB-Q (08:28)
[2023-10-27] MEDS: INSULIN ASPART (*BKC) 100 UNITS/ML 6 UNITS SUB-Q ×2 (08:28→12:19)
--- NOTE | 2023-10-27 08:42 | P.PNNP_ITS ---
Progress Note: A&P Assessment and Plan (1) Acute kidney injury: Code(s): N17.9 - Acute kidney failure, unspecified Status: Acute Assessment and Plan: * as noted by labs since 10/23/23 * normal renal function/creatinine at baseline * suspect due to renal hypoperfusion with an element of ATN from septic shock, hemodynamic instability, and hypoxia * s/p aggressive IVF resuscitation since admission * evaluation to date noted: * renal ultrasound normal * urine electrolytes prerenal (despite evidence of volume overload/pulmonary edema) * urine eosinophil negative * CPK mildly elevated (not enough to affect kidney function) * hold diuretics today (appears to be making more urine on his own) * follow trend of repeat labs and UOP (2) Septic shock: Code(s): A41.9 - Sepsis, unspecified organism; R65.21 - Severe sepsis with septic shock Status: Acute Assessment and Plan: * presumed source = pneumonia and right lower extremity cellulitis * s/p aggressive IVF resuscitation as well as IV albumin * on vasopressor therapy to maintain MAP * follow culture data * on antibiotics * follow trend of hemodynamics (3) Acute respiratory failure with hypoxia and hypercapnia: Code(s): J96.01 - Acute respiratory failure with hypoxia; J96.02 - Acute respiratory failure with hypercapnia Status: Acute Assessment and Plan: * due to a combination of pneumonia and pulmonary edema * also had cough and flu-like symptoms several days prior to presentation * currently on ventilator support * viral studies negative * ventilator weaning when more stable (4) Pneumonia: Qualifiers: Laterality: unspecified laterality Lung location: lower lobe of lung Pneumonia type: due to unspecified organism Qualified Code(s): J18.9 - Pneumonia, unspecified organism Code(s): J18.9 - Pneumonia, unspecified organism Status: Acute Assessment and Plan: * as noted by admission imaging * sputum culture with Pseudomonas * on antibiotics (5) Cellulitis: Code(s): L03.90 - Cellulitis, unspecified Status: Acute Assessment and Plan: * suggested by exam on right lower extremity * local wound care * on antibiotics (6) Atrial fibrillation: Onset Date: 04/20/17 Code(s): I48.91 - Unspecified atrial fibrillation Status: Chronic Assessment and Plan: * rate controlled * on anticoagulation (7) Type 2 diabetes mellitus with hyperglycemia, with long-term current use of insulin: Code(s): E11.65 - Type 2 diabetes mellitus with hyperglycemia; Z79.4 - 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 Rodriguez. Will continue to follow. Subjective Date/time seen: 10/27/23 08:42 Interval history: Follow-up for acute kidney injury/acute kidney failure. Renal function/creatinie remains relatively stable at this time; continues to make good urine output in response to IV diuretic therapy; remains on low dose levophed; febrile in the last 24 hours; opens his eyes but still not following commands. Exam Narrative: General: elderly male intubated and on mechanical ventilation Heart: normal S1 and S2; no rub Lungs: coarse breath sounds Abdomen: soft, nontender, nondistended, positive bowel sounds Extremities: no cyanosis or clubbing; 1+ edema Skin: chronic
--- NOTE | 2023-10-27 08:42 | PM.PNNEP ---
Progress Note: A&P Assessment and Plan (1) Acute kidney injury: Code(s): N17.9 - Acute kidney failure, unspecified Status: Acute Assessment and Plan: as noted by labs since 10/23/23 normal renal function/creatinine at baseline suspect due to renal hypoperfusion with an element of ATN from septic shock, hemodynamic instability, and hypoxia s/p aggressive IVF resuscitation since admission evaluation to date noted: renal ultrasound normal urine electrolytes prerenal (despite evidence of volume overload/pulmonary edema) urine eosinophil negative CPK mildly elevated (not enough to affect kidney function) hold diuretics today (appears to be making more urine on his own) follow trend of repeat labs and UOP (2) Septic shock: Code(s): A41.9 - Sepsis, unspecified organism; R65.21 - Severe sepsis with septic shock Status: Acute Assessment and Plan: presumed source = pneumonia and right lower extremity cellulitis s/p aggressive IVF resuscitation as well as IV albumin on vasopressor therapy to maintain MAP follow culture data on antibiotics follow trend of hemodynamics (3) Acute respiratory failure with hypoxia and hypercapnia: Code(s): J96.01 - Acute respiratory failure with hypoxia; J96.02 - Acute respiratory failure with hypercapnia Status: Acute Assessment and Plan: due to a combination of pneumonia and pulmonary edema also had cough and flu-like symptoms several days prior to presentation currently on ventilator support viral studies negative ventilator weaning when more stable (4) Pneumonia: Qualifiers: Laterality: unspecified laterality Lung location: lower lobe of lung Pneumonia type: due to unspecified organism Qualified Code(s): J18.9 - Pneumonia, unspecified organism Code(s): J18.9 - Pneumonia, unspecified organism Status: Acute Assessment and Plan: as noted by admission imaging sputum culture with Pseudomonas on antibiotics (5) Cellulitis: Code(s): L03.90 - Cellulitis, unspecified Status: Acute Assessment and Plan: suggested by exam on right lower extremity local wound care on antibiotics (6) Atrial fibrillation: Onset Date: 04/20/17 Code(s): I48.91 - Unspecified atrial fibrillation Status: Chronic Assessment and Plan: rate controlled on anticoagulation (7) Type 2 diabetes mellitus with hyperglycemia, with long-term current use of insulin: Code(s): E11.65 - Type 2 diabetes mellitus with hyperglycemia; Z79.4 - 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 Rodriguez. Will continue to follow. Subjective Date/time seen: 10/27/23 08:42 Interval history: Follow-up for acute kidney injury/acute kidney failure. Renal function/creatinie remains relatively stable at this time; continues to make good urine output in response to IV diuretic therapy; remains on low dose levophed; febrile in the last 24 hours; opens his eyes but still not following commands. Exam Narrative: General: elderly male intubated and on mechanical ventilation Heart: normal S1 and S2; no rub Lungs: coarse breath sounds Abdomen: soft, nontender, nondistended, positive bowel sounds Extremities: no cyanosis or clubbing; 1+ edema Skin: chronic venous dermatitis noted Objective Data Vital Signs Vital Signs: Vital Signs Temp Pulse Resp BP Pulse Ox O2 Del Method FiO2 10/27/23 08:30 99.3 F 78 22 H 120/60 99 Mechanical Ventilation 10/27/23 08:10 79 100 Mechanical Ventilation 10/27/23 07:56 74 22 H 10/27/23 07:46 79 23 H 10/27/23 07:46 79 99 Mechanical Ventilation 10/27/23 06:00 98.8 F 73 22 H 98/57 L 98 10/27/23 06:00 81 98/57 L 10/27/23 06:18 78 9
--- NOTE | 2023-10-27 09:12 | WPDINTPN ---
Progress Note: A&P Assessment and Plan (1) Encephalopathy: Qualifiers: Encephalopathy type: toxic metabolic Qualified Code(s): G92.8 - Other toxic encephalopathy Code(s): G93.40 - Encephalopathy, unspecified Status: Acute Assessment and Plan: Encephalopathy could be related to septic shock, critical care illness, residual sedation medications -check ammonia level -10/06: CT brain showed no intracranial findings (2) Acute respiratory failure with hypoxia and hypercapnia: Code(s): J96.01 - Acute respiratory failure with hypoxia; J96.02 - Acute respiratory failure with hypercapnia Status: Acute Assessment and Plan: 10/20: Pt presented with AMS, cough, and flu like symptoms. -respiratory failure is multifactorial acute respiratory failure secondary to pulmonary edema, pneumonia -10/20: intubated -Chest x-ray and ABG reviewed. -on CMV mode of ventilation, peep of 8 and 30% FiO2 - urine Legionella and pneumococcal antigen - viral PCR was negative -off all sedation since 10/24/2023 -10/26: Tried patient on pressure support ventilation, did not initiate any breath and ventilated kicked into apnea mode. Place patient on ASV, respiratory rate was significantly low and patient was not reaching his target minute ventilation, ventilator was alarming. So placed him back on CMV mode. Will retry again today 10/25: CT chest/abdomen/pelvis without, IMPRESSION: 1. Small pleural effusions. 2. Small volume of ascites. 3. Large volume of stool in the colon with distention of the descending and transverse colon, consistent with adynamic ileus. (3) Septic shock: Code(s): A41.9 - Sepsis, unspecified organism; R65.21 - Severe sepsis with septic shock Status: Acute Assessment and Plan: Septic shock secondary to Pseudomonas pneumonia and cellulitis of right lower extremity -adequately fluid-resuscitated, received additional IV fluids in light of worsening renal function and 25% albumin 10/22 -continue Levophed, maintain MAP > 65 mmHg -10/23: will discontinue vancomycin as MRSA screen is negative -10/21: sputum culture growing Pseudomonas pneumonia -will increase cefepime to 2 g q.12 hours. -febrile with T-max of 101.4, improved with Tylenol, if patient spikes fevers again will obtain blood, urine and sputum cultures (4) Pneumonia: Qualifiers: Laterality: unspecified laterality Lung location: lower lobe of lung Pneumonia type: due to unspecified organism Qualified Code(s): J18.9 - Pneumonia, unspecified organism Code(s): J18.9 - Pneumonia, unspecified organism Status: Acute Assessment and Plan: Chest x-ray reviewed, continue antibiotics as above -Pseudomonas pneumonia on sputum culture (5) Acute kidney injury: Code(s): N17.9 - Acute kidney failure, unspecified Status: Acute Assessment and Plan: Acute kidney injury, baseline creatinine and (1.00-1.30) . Creatinine on admission was stable -received adequate amount of IV fluids, -10/22: Worsening renal function, Patient was given IV fluids and albumin, -obtain urine lytes, urine eosinophils, CK level -10/24/2023: Renal ultrasound showed normal kidneys and no hydronephrosis -appreciate Nephrology evaluation and recommendation -discuss with Nephrology, was okay with diuresis with Bumex as patient has been significantly volume overloaded since admission -10/23: Patient has been 10 L positive since admission, did respond to diuretics with the caveat that he has better urine output when mean arterial pressures are > 70 mmHg. -10/24: Repeat Bumex after discussing with Nephrology, along with albumin. Have asked the bedside RN to maintain mean arterial pressures > 70 mmHg. In continues to be at risk for dialysis 10/25: Patient responded well to Bumex on 10/25/2023 with significant urine output, improvement in creatinine in negative fluid balance. Will repeat Bumex again today, discussed with Nephr
--- NOTE | 2023-10-27 09:20 | P.CDI_ITS ---
CDI Query Clarification Request Diastolic heart failure has been documented. Please specify acuity of heart failure if known. Treatment: patient received IV bumex. * Acute * Chronic * Acute on Chronic * Unknown
[2023-10-27] MEDS: CEFEPIME 2 GM/NS 50 ML 2 GM/50 ML BAG IVPB ×2 (09:37→19:58)
[2023-10-27 09:44] LABS: Hepatitis B Core Ab Total NON-REACTIVE (NON-REACTIVE)
[2023-10-27 11:14] LABS: Ammonia < 9 umol/L (9-30)
--- NOTE | 2023-10-27 11:19 | PCFNICU ---
ICU Rounding Note: Pt current nutrition is Glucerna 1.2 at 65 ml/hr. Last recorded weight is 116.4 kg, down from 123.6 kg on admit. Bowel Motility: +BM reported 10/25 Labs Reviewed: Glu 415, Cr 2.3, GFR 28, Na 134, Alb 3.4 Meds Noted:Protonix,Lantus, Miralax, Levophed, Reglan Skin: Deep Tissue-right heel Additional Notes: Patient remains on a mechanical vent. Tube feedings are being tolerated but blood sugars remain elevated. Discussed formula change today to Glucerna 1.2 to help with elevated blood sugars. Recommend Glucerna 1.2 at 65 ml/hr with free water flush 30 ml q 4 hours. Protein Modular of Flex added BID for would healing. Agree with diet orders. Following daily in ICU rounds. Monitor tube feeding orders, tolerance, labs, weights, stool patterns, plan of care Follow up Tuesday and Tuesday.
[2023-10-27 12:22] LABS: Glucose Point of Care 460 mg/dl (65-105)
[2023-10-27 14:24] LABS: Glucose Point of Care 445 mg/dl (65-105)
[2023-10-27] MEDS: INSULIN HUMAN REGULAR (*BKC) 100 UNITS in SODIUM CHLORIDE 0.9% IV 99 ML 11.5 UNITS IV CONT (15:04)
[2023-10-27 15:11] LABS: Glucose Point of Care 446 mg/dl (65-105)
[2023-10-27 15:18] LABS: Partial Thromboplastin Time 88.3 Seconds (22.3-36.8)
[2023-10-27 16:02] LABS: Glucose Point of Care 409 mg/dl (65-105)
[2023-10-27 17:29] LABS: Glucose Point of Care 383 mg/dl (65-105)
[2023-10-27 18:39] LABS: Glucose Point of Care 366 mg/dl (65-105)
[2023-10-27] MEDS: INSULIN HUMAN REGULAR (*BKC) 100 UNITS in SODIUM CHLORIDE 0.9% IV 99 ML 17.5 UNITS IV CONT (19:53)
[2023-10-27] MEDS: ACETAMINOPHEN 325 MG TABLET 650 MG PO (20:14)
[2023-10-27 21:22] LABS: Partial Thromboplastin Time 71.7 Seconds (22.3-36.8)
[2023-10-27 21:57] LABS: Glucose Point of Care 327 mg/dl (65-105)
[2023-10-27 21:57] LABS: Glucose Point of Care 284 mg/dl (65-105)
[2023-10-27 21:57] LABS: Glucose Point of Care 294 mg/dl (65-105)
[2023-10-27 22:09] LABS: Legionella pneumophila Ag Ur DETECTED
[2023-10-27 23:03] LABS: Glucose Point of Care 269 mg/dl (65-105)
[2023-10-27] MEDS: INSULIN HUMAN REGULAR (*BKC) 100 UNITS in SODIUM CHLORIDE 0.9% IV 99 ML 19 UNITS IV CONT (23:24)
[2023-10-28] VITALS (46 sets, daily range): BP systolic 80–177; BP diastolic 42–79; PULSE 68–86; RESP 16–20; TEMP 36.9–37.7; O2SAT 94–100
[2023-10-28 00:45] LABS: Glucose Point of Care 275 mg/dl (65-105)
[2023-10-28 00:45] LABS: Glucose Point of Care 274 mg/dl (65-105)
[2023-10-28] MEDS: IPRATROPIUM 0.5 MG/ALBUTEROL SULFATE 2.5 MG AMPUL.NEB 3 ML INHALATION ×4 (02:40→20:03)
[2023-10-28] MEDS: INSULIN HUMAN REGULAR (*BKC) 100 UNITS in SODIUM CHLORIDE 0.9% IV 99 ML 20.5 UNITS IV CONT (03:04)
[2023-10-28] MEDS: METOCLOPRAMIDE HCL INJ 10 MG/2 ML VIAL IV PUSH (06:19)
[2023-10-28] MEDS: CENTRAL LINE FLUSH 10 ML IV PUSH ×3 (06:20→21:28)
[2023-10-28 06:21] LABS: Alveolar/Arterial O2 Gradient 78.8 mmHg; Base Excess ABG 4.7 mEq/l (+/-2.0); Carboxyhemoglobin 0.9 % THb (0-2.0); Fractional Inspired Oxygen 30 %; HCO3 ABG 27.5 mEq/l (22.0-26.0); Methemoglobin ABG 0.1 %THb (0-1.5); Oxygen Content ABG 25.3 %vol (16.0-22.0); Oxygen Saturation ABG 97.7 % (95.0-100.0); Oxyhemoglobin 96.9 % THb (90.0-100.0); PCO2 ABG 35.6 mmHg (35.0-45.0); PO2 ABG 93.3 mmHg (80.0-100.0); PO2 FiO2 Ratio Arterial Blood 3.11 %; Reduced Hemoglobin 2.1 %THb (0-5.0); Total Hemoglobin 18.6 g/dL (12.0-18.0)
[2023-10-28 06:23] LABS: Arterial Blood Gas PEEP 8 cmH2O; Arterial Blood Gas Tidal Volume 500 ml; Arterial Blood Gas Vent Mode CMV; Arterial Blood Gas Ventilator rate 20 /MIN; Device VENTILATOR; Modified Allen's Test Pass; Site Drawn RIGHT RADIAL; pH ABG 7.506 (7.350-7.450)
[2023-10-28 06:52] LABS: Glucose Point of Care 195 mg/dl (65-105)
[2023-10-28 06:52] LABS: Glucose Point of Care 224 mg/dl (65-105)
[2023-10-28 06:52] LABS: Glucose Point of Care 208 mg/dl (65-105)
[2023-10-28 06:52] LABS: Glucose Point of Care 181 mg/dl (65-105)
[2023-10-28 06:52] LABS: Glucose Point of Care 165 mg/dl (65-105)
[2023-10-28 06:52] LABS: Glucose Point of Care 181 mg/dl (65-105)
[2023-10-28 07:13] LABS: Alanine Aminotransferase 17 U/L (6-50); Albumin Level 3.7 g/dL (3.5-5.1); Alkaline Phosphatase 129 U/L (38-126); Anion Gap 12 mmol/L (4-12); Aspartate Amino Transferase 49 U/L (17-59); Bilirubin,Total 1.9 mg/dL (0.2-1.3); Blood Urea Nitrogen 54 mg/dL (9-20); Carbon Dioxide 30 mmol/L (22-30); Chloride 98 mmol/L (98-107); Estimated CRCL calculation 36 ml/min; Estimated Glomerular Filt Rate 33; Glucose 186 mg/dL (65-110); Magnesium 1.9 mg/dL (1.6-2.3); Phosphorus 2.7 mg/dL (2.5-4.5); Potassium 3.3 mmol/L (3.4-5.0); Sodium 140 mmol/L (137-145)
[2023-10-28 07:24] LABS: Glucose Point of Care 208 mg/dl (65-105)
[2023-10-28 07:41] LABS: Partial Thromboplastin Time 86.8 Seconds (22.3-36.8)
[2023-10-28 07:55] LABS: Basophils Absolute Auto 0.1 K/mm3 (0.0-0.1); Eosinophils Absolute Auto 0.2 K/mm3 (0-0.3); Eosinophils Percent Auto 2.5 % (0-4.4); Hematocrit 33.6 % (42.0-52.0); Hemoglobin 10.8 g/dL (14.0-18.0); Immature Granulocyte Absolute 0.84 K/mm3 (0.00-0.031); Immature Granulocyte Percent A 9.5 % (0-0.5); Lymphocytes Absolute Auto 1.41 K/mm3 (0.9-3.2); Lymphocytes Percent Auto 15.9 % (18.3-44.2); Mean Corpuscular HGB Conc 32.1 g/dl (32-36); Mean Platelet Volume 10.4 fl (7.4-10.4); Monocytes Absolute Auto 1.1 K/mm3 (0.1-0.6); Monocytes Percent Auto 11.9 % (2.6-8.5); Neutrophils Absolute Auto 5.3 K/mm3 (1.3-6.7); Neutrophils Percent Auto 59.2 % (45.5-73.1); Nucleated Red Blood Cells Perc 0.2 % (0.0-0.2); Platelet Count Result 287 k/mm3 (150-375); Red Blood Count 4.15 M/mm3 (4.6-6.20); Red Cell Distribution Width 22.6 % (11.5-14.5); White Blood Count 8.9 K/mm3 (4.5-10.0)
[2023-10-28 08:03] LABS: Glucose Point of Care 238 mg/dl (65-105)
[2023-10-28] MEDS: ROSUVASTATIN 10 MG TABLET PO (08:17)
[2023-10-28] MEDS: POTASSIUM CHLORIDE 20 MEQ PACKET (FOR LIQUID) 40 MEQ FEED TUBE (08:17)
[2023-10-28] MEDS: polyethylene glycoL 3350 17 GM POWD.PACK PO (08:18)
[2023-10-28] MEDS: CEFEPIME 2 GM/NS 50 ML 2 GM/50 ML BAG IVPB ×2 (08:25→21:24)
[2023-10-28] MEDS: INSULIN GLARGINE (*BKC) 100 UNITS/ML SUB-Q (08:27)
[2023-10-28] MEDS: INSULIN ASPART (*BKC) 100 UNITS/ML 6 UNITS SUB-Q ×4 (08:27→21:27)
[2023-10-28] MEDS: PANTOPRAZOLE SODIUM IV 40 MG VIAL IV PUSH (08:27)
[2023-10-28] MEDS: TOLNAFTATE 1% POWDER 45 GM BTL 1 APPLIC TOPICAL ×2 (08:30→21:26)
[2023-10-28] MEDS: MINERAL OIL/WHITE PETROLATUM OINTMENT 1 APPLIC EACH EYE ×2 (08:31→21:26)
[2023-10-28 08:34] LABS: Anisocytosis 2+; Hypochromasia 1+; Platelet Estimate Adequate (Adequate); Polychromasia 1+; Schistocytes None Seen
--- NOTE | 2023-10-28 08:54 | WPDINTPN ---
Progress Note: A&P Assessment and Plan (1) Encephalopathy: Qualifiers: Encephalopathy type: toxic metabolic Qualified Code(s): G92.8 - Other toxic encephalopathy Code(s): G93.40 - Encephalopathy, unspecified Status: Acute Assessment and Plan: Encephalopathy could be related to septic shock, critical care illness, residual sedation medications -check ammonia level -10/06: CT brain showed no intracranial findings (2) Acute respiratory failure with hypoxia and hypercapnia: Code(s): J96.01 - Acute respiratory failure with hypoxia; J96.02 - Acute respiratory failure with hypercapnia Status: Acute Assessment and Plan: 10/20: Pt presented with AMS, cough, and flu like symptoms. -respiratory failure is multifactorial acute respiratory failure secondary to pulmonary edema, pneumonia -10/20: intubated -Chest x-ray and ABG reviewed. -on CMV mode of ventilation, peep of 8 and 30% FiO2 - urine Legionella antigen was positive. He did complete 5 day course of doxycycline. Will add azithromycin for a 10 day course - viral PCR was negative -off all sedation since 10/24/2023 -10/26 and 10/27: Tried patient on pressure support ventilation low respiratory rate and tidal volumes leading to ventilator going into apnea mode. Continue to hold sedation sedation and CMV mode at this time 10/25: CT chest/abdomen/pelvis without, IMPRESSION: 1. Small pleural effusions. 2. Small volume of ascites. 3. Large volume of stool in the colon with distention of the descending and transverse colon, consistent with adynamic ileus. (3) Septic shock: Code(s): A41.9 - Sepsis, unspecified organism; R65.21 - Severe sepsis with septic shock Status: Acute Assessment and Plan: Septic shock secondary to Pseudomonas pneumonia and cellulitis of right lower extremity -adequately fluid-resuscitated, received additional IV fluids in light of worsening renal function and 25% albumin 10/22 -continue Levophed, maintain MAP > 65 mmHg -10/23: will discontinue vancomycin as MRSA screen is negative. He did complete 5 day course of doxycycline -10/21: sputum culture growing Pseudomonas pneumonia -will increase cefepime to 2 g q.12 hours. -10/26 febrile with T-max of 101.4, improved with Tylenol, repeat blood, urine and sputum cultures sent - 10/27 replace Nayak catheter (4) Pneumonia: Qualifiers: Laterality: unspecified laterality Lung location: lower lobe of lung Pneumonia type: due to unspecified organism Qualified Code(s): J18.9 - Pneumonia, unspecified organism Code(s): J18.9 - Pneumonia, unspecified organism Status: Acute Assessment and Plan: Chest x-ray reviewed, continue antibiotics as above -Pseudomonas pneumonia on sputum culture (5) Acute kidney injury: Code(s): N17.9 - Acute kidney failure, unspecified Status: Acute Assessment and Plan: Acute kidney injury, baseline creatinine and (1.00-1.30) . Creatinine on admission was stable -received adequate amount of IV fluids, -10/22: Worsening renal function, Patient was given IV fluids and albumin, -obtain urine lytes, urine eosinophils, CK level -10/24/2023: Renal ultrasound showed normal kidneys and no hydronephrosis -appreciate Nephrology evaluation and recommendation -10/23: Patient has been 10 L positive since admission, did respond to diuretics with the caveat that he has better urine output when mean arterial pressures are > 70 mmHg. -10/24: Repeat Bumex after discussing with Nephrology, along with albumin. Have asked the bedside RN to maintain mean arterial pressures > 70 mmHg. In continues to be at risk for dialysis 10/25: Patient responded well to Bumex on 10/25/2023 with significant urine output, improvement in creatinine in negative fluid balance. Will repeat Bumex again today, discussed with Nephrology -10/26: Patient responded very well to diuresis with significant negative fluid balance. - 10/27 hold
[2023-10-28 09:05] LABS: Glucose Point of Care 254 mg/dl (65-105)
--- NOTE | 2023-10-28 10:11 | PM.PNNEP ---
Progress Note: A&P Assessment and Plan (1) Acute kidney injury: Code(s): N17.9 - Acute kidney failure, unspecified Status: Acute Assessment and Plan: as noted by labs since 10/23/23 slow improvement noted normal renal function/creatinine at baseline suspect due to renal hypoperfusion with an element of ATN from septic shock, hemodynamic instability, and hypoxia s/p aggressive IVF resuscitation since admission evaluation to date noted: renal ultrasound normal urine electrolytes prerenal (despite evidence of volume overload/pulmonary edema) urine eosinophil negative CPK mildly elevated (not enough to affect kidney function) holding diuretics at this time (appears to be making more urine on his own) follow trend of repeat labs and UOP (2) Septic shock: Code(s): A41.9 - Sepsis, unspecified organism; R65.21 - Severe sepsis with septic shock Status: Acute Assessment and Plan: presumed source = pneumonia and right lower extremity cellulitis s/p aggressive IVF resuscitation as well as IV albumin on vasopressor therapy to maintain MAP follow culture data on antibiotics follow trend of hemodynamics (3) Acute respiratory failure with hypoxia and hypercapnia: Code(s): J96.01 - Acute respiratory failure with hypoxia; J96.02 - Acute respiratory failure with hypercapnia Status: Acute Assessment and Plan: due to a combination of pneumonia and pulmonary edema also had cough and flu-like symptoms several days prior to presentation currently on ventilator support viral studies negative ventilator weaning when more stable (4) Pneumonia: Qualifiers: Laterality: unspecified laterality Lung location: lower lobe of lung Pneumonia type: due to unspecified organism Qualified Code(s): J18.9 - Pneumonia, unspecified organism Code(s): J18.9 - Pneumonia, unspecified organism Status: Acute Assessment and Plan: as noted by admission imaging sputum culture with Pseudomonas on antibiotics (5) Cellulitis: Code(s): L03.90 - Cellulitis, unspecified Status: Acute Assessment and Plan: suggested by exam on right lower extremity local wound care on antibiotics (6) Atrial fibrillation: Onset Date: 04/20/17 Code(s): I48.91 - Unspecified atrial fibrillation Status: Chronic Assessment and Plan: rate controlled on anticoagulation (7) Type 2 diabetes mellitus with hyperglycemia, with long-term current use of insulin: Code(s): E11.65 - Type 2 diabetes mellitus with hyperglycemia; Z79.4 - half-way (current) use of insulin Status: Acute Assessment and Plan: follow accu-cheks glycemic control per layout former/hospitalist Will continue to follow. Subjective Date/time seen: 10/28/23 10:11 Interval history: Follow-up for acute kidney injury/acute renal failure. Despite holding diuretic therapy yesterday, continues to make excellent urine output; renal function/creatinine appears better as well by recent labs; febrile overnight (with a Tmax of 101.3); remains off sedation and continues to tolerate tube feeds. Exam Narrative: General: elderly male intubated and on mechanical ventilation Heart: normal S1 and S2; no rub Lungs: coarse breath sounds Abdomen: soft, nontender, nondistended, positive bowel sounds Extremities: no cyanosis or clubbing; 1+ edema Skin: chronic venous dermatitis noted Objective Data Vital Signs Vital Signs: Vital Signs Temp Pulse Resp BP Pulse Ox O2 Del Method FiO2 10/28/23 10:00 98.5 F 79 16 116/64 99 Mechanical Ventilation 10/28/23 08:45 76 125/55 L 10/28/23 08:30 76 135/54 L 10/28/23 08:15 70 83/42 L 10/28/23 08:00 99.2 F 72 16 109/51 L 95 10/28/23 08:05 75 16 10/28/23 08:02 78 94 Mechanical Ventilation 10/28/23 07:55 71 19 08/2
--- NOTE | 2023-10-28 10:11 | P.PNNP_ITS ---
Progress Note: A&P Assessment and Plan (1) Acute kidney injury: Code(s): N17.9 - Acute kidney failure, unspecified Status: Acute Assessment and Plan: * as noted by labs since 10/23/23 * slow improvement noted * normal renal function/creatinine at baseline * suspect due to renal hypoperfusion with an element of ATN from septic shock, hemodynamic instability, and hypoxia * s/p aggressive IVF resuscitation since admission * evaluation to date noted: * renal ultrasound normal * urine electrolytes prerenal (despite evidence of volume overload/pulmonary edema) * urine eosinophil negative * CPK mildly elevated (not enough to affect kidney function) * holding diuretics at this time (appears to be making more urine on his own) * follow trend of repeat labs and UOP (2) Septic shock: Code(s): A41.9 - Sepsis, unspecified organism; R65.21 - Severe sepsis with septic shock Status: Acute Assessment and Plan: * presumed source = pneumonia and right lower extremity cellulitis * s/p aggressive IVF resuscitation as well as IV albumin * on vasopressor therapy to maintain MAP * follow culture data * on antibiotics * follow trend of hemodynamics (3) Acute respiratory failure with hypoxia and hypercapnia: Code(s): J96.01 - Acute respiratory failure with hypoxia; J96.02 - Acute respiratory failure with hypercapnia Status: Acute Assessment and Plan: * due to a combination of pneumonia and pulmonary edema * also had cough and flu-like symptoms several days prior to presentation * currently on ventilator support * viral studies negative * ventilator weaning when more stable (4) Pneumonia: Qualifiers: Laterality: unspecified laterality Lung location: lower lobe of lung Pneumonia type: due to unspecified organism Qualified Code(s): J18.9 - Pn eumonia, unspecified organism Code(s): J18.9 - Pneumonia, unspecified organism Status: Acute Assessment and Plan: * as noted by admission imaging * sputum culture with Pseudomonas * on antibiotics (5) Cellulitis: Code(s): L03.90 - Cellulitis, unspecified Status: Acute Assessment and Plan: * suggested by exam on right lower extremity * local wound care * on antibiotics (6) Atrial fibrillation: Onset Date: 04/20/17 Code(s): I48.91 - Unspecified atrial fibrillation Status: Chronic Assessment and Plan: * rate controlled * on anticoagulation (7) Type 2 diabetes mellitus with hyperglycemia, with long-term current use of insulin: Code(s): E11.65 - Type 2 diabetes mellitus with hyperglycemia; Z79.4 - 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 Subjective Date/time seen: 10/28/23 10:11 Interval history: Follow-up for acute kidney injury/acute renal failure. Despite holding diuretic therapy yesterday, continues to make excellent urine output; renal function/creatinine appears better as well by recent labs; febrile overnight (with a Tmax of 101.3); remains off sedation and continues to tolerate tube feeds. Exam Narrative: General: elderly male intubated and on mechanical ventilation Heart: normal S1 and S2; no rub Lungs: coarse breath sounds Abdomen: soft, nontender, nondistended, positive bowel sounds Extremities: no cyanosis or clubbing; 1+ edema Skin: chronic
[2023-10-28 10:12] LABS: Glucose Point of Care 260 mg/dl (65-105)
--- NOTE | 2023-10-28 10:28 | PCNFU ---
Nutrition Follow-Up Complete: Inadequate energy intake related to sepsis, PNA as evidenced by mechanical ventilation, need for full tube feeding, possible ileus Goal: Meet estimated nutrition needs Patient is progressing towards goal. We will continue current goal. Pt current nutrition is Glucerna 1.2 at 65 ml/hr. Last recorded weight is 111.9 kg, down from 123.6 kg on admit. Bowel Motility:Last BM reported 10/25-suppository has been ordered. Labs Reviewed: Glu 186, BUN 54, Cr 2.0,Alb 3.3 Meds Noted:Protonix, Reglan,Levophed, Lantus, Miralax. Skin: Deep Tissue Injury-Right heel Additional Notes: Patient remains on mechanical vent. Tube feedings are being tolerated of Glucerna 1.2 at 65 ml/hr with Flush 30 ml q 4 hours. Protein Modular added BID for wounds. Total Nutrition: 1814 kcals/86 gms protein/1151 ml water. Meeting 100% kcal needs at 14 kcal/kg and 88% protein needs at (1.4-1.8 gm/kg IBW). Agree with formula change and rate. Monitor tube feeding orders, tolerance, labs, weights, stool patterns, plan of care Follow up Tuesday and Tuesday. Daily in ICU rounds
[2023-10-28] MEDS: AZITHROMYCIN 250 MG TABLET 500 MG PO (11:40)
[2023-10-28] MEDS: INSULIN ASPART (*BKC) 100 UNITS/ML SUB-Q ×3 (11:44→21:28)
[2023-10-28 11:50] LABS: Glucose Point of Care 292 mg/dl (65-105)
[2023-10-28 14:42] LABS: Glucose Point of Care 312 mg/dl (65-105)
[2023-10-28] MEDS: NOREPINEPHRINE 8 MG/D5W 250 ML 8 MG/250 ML BAG 9.38 MG IV CONT (14:51)
[2023-10-28 15:57] LABS: Glucose Point of Care 368 mg/dl (65-105)
[2023-10-28] MEDS: HEPARIN SOD/D5W 100 UNITS/ML 25,000 UNITS/250 ML BAG 15 UNITS IV CONT (16:05)
[2023-10-28 19:04] LABS: Glucose Point of Care 300 mg/dl (65-105)
[2023-10-28 21:03] LABS: Glucose Point of Care 335 mg/dl (65-105)
[2023-10-29] VITALS (38 sets, daily range): BP systolic 99–163; BP diastolic 51–79; PULSE 64–83; RESP 13–19; TEMP 36.3–37.9; O2SAT 92–100
[2023-10-29] MEDS: INSULIN ASPART (*BKC) 100 UNITS/ML 6 UNITS SUB-Q ×3 (01:03→09:22)
[2023-10-29] MEDS: INSULIN ASPART (*BKC) 100 UNITS/ML SUB-Q ×5 (01:03→21:55)
[2023-10-29] MEDS: IPRATROPIUM 0.5 MG/ALBUTEROL SULFATE 2.5 MG AMPUL.NEB 3 ML INHALATION ×4 (02:12→20:11)
[2023-10-29 04:43] LABS: Glucose Point of Care 333 mg/dl (65-105)
[2023-10-29 05:25] LABS: Hematocrit 35.1 % (42.0-52.0); Hemoglobin 10.8 g/dL (14.0-18.0); Mean Corpuscular HGB Conc 30.8 g/dl (32-36); Mean Corpuscular Volume 84.4 fl (80-100); Platelet Count Result 309 k/mm3 (150-375); Red Blood Count 4.16 M/mm3 (4.6-6.20); Red Cell Distribution Width 22.7 % (11.5-14.5); White Blood Count 7.3 K/mm3 (4.5-10.0)
[2023-10-29 05:25] LABS: Alveolar/Arterial O2 Gradient 82.1 mmHg; Base Excess ABG 2.9 mEq/l (+/-2.0); Carboxyhemoglobin 1.3 % THb (0-2.0); Fractional Inspired Oxygen 30 %; HCO3 ABG 28.8 mEq/l (22.0-26.0); Methemoglobin ABG 0.3 %THb (0-1.5); Oxygen Content ABG 15.2 %vol (16.0-22.0); Oxygen Saturation ABG 94.4 % (95.0-100.0); Oxyhemoglobin 93.1 % THb (90.0-100.0); PCO2 ABG 49.5 mmHg (35.0-45.0); PO2 ABG 73.6 mmHg (80.0-100.0); PO2 FiO2 Ratio Arterial Blood 2.45 %; Reduced Hemoglobin 5.3 %THb (0-5.0); Total Hemoglobin 11.6 g/dL (12.0-18.0); pH ABG 7.382 (7.350-7.450)
[2023-10-29 05:29] LABS: Arterial Blood Gas PEEP 8 cmH2O; Arterial Blood Gas Tidal Volume 450 ml; Arterial Blood Gas Vent Mode CMV; Arterial Blood Gas Ventilator rate 16 /MIN; Device VENTILATOR; Modified Allen's Test Pass; Site Drawn RIGHT RADIAL
[2023-10-29 05:34] LABS: Glucose Point of Care 340 mg/dl (65-105)
[2023-10-29 05:37] LABS: Alanine Aminotransferase 17 U/L (6-50); Albumin Level 3.5 g/dL (3.5-5.1); Alkaline Phosphatase 124 U/L (38-126); Anion Gap 8 mmol/L (4-12); Aspartate Amino Transferase 41 U/L (17-59); Bilirubin,Total 1.3 mg/dL (0.2-1.3); Blood Urea Nitrogen 68 mg/dL (9-20); Calcium 9.4 mg/dL (8.4-10.2); Carbon Dioxide 33 mmol/L (22-30); Chloride 98 mmol/L (98-107); Estimated CRCL calculation 43 ml/min; Estimated Glomerular Filt Rate 40; Glucose 364 mg/dL (65-110); INR 1.3; Magnesium 1.9 mg/dL (1.6-2.3); Potassium 4.4 mmol/L (3.4-5.0); Prothrombin Time 16.2 Seconds (11.1-14.7); Sodium 139 mmol/L (137-145)
[2023-10-29 05:39] LABS: Partial Thromboplastin Time 81.9 Seconds (22.3-36.8)
[2023-10-29] MEDS: CENTRAL LINE FLUSH 10 ML IV PUSH ×3 (06:22→21:57)
--- NOTE | 2023-10-29 08:43 | WPDINTPN ---
Progress Note: A&P Assessment and Plan (1) Acute respiratory failure with hypoxia and hypercapnia: Code(s): J96.01 - Acute respiratory failure with hypoxia; J96.02 - Acute respiratory failure with hypercapnia Status: Acute Assessment and Plan: 10/20: Pt presented with AMS, cough, and flu like symptoms. -respiratory failure is multifactorial acute respiratory failure secondary to pulmonary edema, pneumonia -10/20: intubated -Chest x-ray and ABG reviewed. -on CMV mode of ventilation, peep of 8 and 30% FiO2 -off all sedation since 10/24/2023 -10/26 and 10/27: Tried patient on pressure support ventilation low respiratory rate and tidal volumes leading to ventilator going into apnea mode. Continue to hold sedation sedation and CMV mode at this time - 10/28 patient placed on PSV 07/12 continue as tolerated 10/25: CT chest/abdomen/pelvis without, IMPRESSION: 1. Small pleural effusions. 2. Small volume of ascites. 3. Large volume of stool in the colon with distention of the descending and transverse colon, consistent with adynamic ileus. (2) Septic shock: Code(s): A41.9 - Sepsis, unspecified organism; R65.21 - Severe sepsis with septic shock Status: Acute Assessment and Plan: Septic shock secondary to Pseudomonas pneumonia and cellulitis of right lower extremity -adequately fluid-resuscitated, received additional IV fluids in light of worsening renal function and 25% albumin 10/22 -continue Levophed, maintain MAP > 65 mmHg -10/23: will discontinue vancomycin as MRSA screen is negative. He did complete 5 day course of doxycycline -10/21: sputum culture growing Pseudomonas pneumonia. Continue cefepime to 2 g q.12 hours. Patient also has positive urine Legionella antigen. He received 5 day course of doxycycline and now is on azithromycin for another 10 days -10/26 Rrepeat blood, urine and sputum cultures sent and are negative till now - 10/27 r Nayak catheter was replaced (3) Encephalopathy: Qualifiers: Encephalopathy type: toxic metabolic Qualified Code(s): G92.8 - Other toxic encephalopathy Code(s): G93.40 - Encephalopathy, unspecified Status: Acute Assessment and Plan: Encephalopathy could be related to septic shock, critical care illness, residual sedation medications -check ammonia level -10/06: CT brain showed no intracranial findings -likely secondary to sedation Will and is gradually improving as sedation is wearing off patient today is following commands with all 4 extremities although appears quite weak (4) Pneumonia: Qualifiers: Laterality: unspecified laterality Lung location: lower lobe of lung Pneumonia type: due to unspecified organism Qualified Code(s): J18.9 - Pneumonia, unspecified organism Code(s): J18.9 - Pneumonia, unspecified organism Status: Acute Assessment and Plan: Chest x-ray reviewed, continue antibiotics as above -Pseudomonas pneumonia on sputum culture (5) Acute kidney injury: Code(s): N17.9 - Acute kidney failure, unspecified Status: Acute Assessment and Plan: Acute kidney injury, baseline creatinine and (1.00-1.30) . Creatinine on admission was stable -received adequate amount of IV fluids, -10/22: Worsening renal function, Patient was given IV fluids and albumin, -obtain urine lytes, urine eosinophils, CK level -10/24/2023: Renal ultrasound showed normal kidneys and no hydronephrosis -appreciate Nephrology evaluation and recommendation -10/23: Patient has been 10 L positive since admission, did respond to diuretics with the caveat that he has better urine output when mean arterial pressures are > 70 mmHg. -10/24: Repeat Bumex after discussing with Nephrology, along with albumin. Have asked the bedside RN to maintain mean arterial pressures > 70 mmHg. In continues to be at risk for dialysis 10/25: Patient responded well to Bumex on 10/25/2023 with significant urine output, improvement in creatini
[2023-10-29 08:46] LABS: Glucose Point of Care 362 mg/dl (65-105)
[2023-10-29] MEDS: PANTOPRAZOLE SODIUM IV 40 MG VIAL IV PUSH (09:21)
[2023-10-29] MEDS: ROSUVASTATIN 10 MG TABLET PO (09:21)
[2023-10-29] MEDS: polyethylene glycoL 3350 17 GM POWD.PACK PO (09:21)
[2023-10-29] MEDS: TOLNAFTATE 1% POWDER 45 GM BTL 1 APPLIC TOPICAL ×2 (09:21→21:57)
[2023-10-29] MEDS: MINERAL OIL/WHITE PETROLATUM OINTMENT 1 APPLIC EACH EYE ×2 (09:22→21:56)
[2023-10-29] MEDS: AZITHROMYCIN 250 MG TABLET 500 MG PO (09:22)
[2023-10-29] MEDS: INSULIN GLARGINE (*BKC) 100 UNITS/ML SUB-Q (09:23)
[2023-10-29] MEDS: CEFEPIME 2 GM/NS 50 ML 2 GM/50 ML BAG IVPB ×2 (09:24→21:56)
[2023-10-29 09:42] LABS: Alveolar/Arterial O2 Gradient 51.7 mmHg; Fractional Inspired Oxygen 30 %; HCO3 ABG 30.7 mEq/l (22.0-26.0); Oxygen Saturation ABG 96.9 % (95.0-100.0); Oxyhemoglobin 95.9 % THb (90.0-100.0); PCO2 ABG 56.5 mmHg (35.0-45.0); PO2 ABG 95.8 mmHg (80.0-100.0); PO2 FiO2 Ratio Arterial Blood 3.19 %; Total Hemoglobin 11.8 g/dL (12.0-18.0); pH ABG 7.353 (7.350-7.450)
[2023-10-29 09:49] LABS: Device VENTILATOR; Site Drawn RIGHT RADIAL
[2023-10-29 09:50] LABS: Arterial Blood Gas PEEP 8 cmH2O; Arterial Blood Gas Pressure Support 5 cmH2O; Arterial Blood Gas Vent Mode SPONTANEOUS
--- NOTE | 2023-10-29 10:16 | PM.PNNEP ---
Progress Note: A&P Assessment and Plan (1) Acute kidney injury: Code(s): N17.9 - Acute kidney failure, unspecified Status: Acute Assessment and Plan: as noted by labs since 10/23/23 slow improvement noted since 10/28/23 normal renal function/creatinine at baseline suspect due to renal hypoperfusion with an element of ATN from septic shock, hemodynamic instability, and hypoxia s/p aggressive IVF resuscitation since admission evaluation to date noted: renal ultrasound normal urine electrolytes prerenal (despite evidence of volume overload/pulmonary edema) urine eosinophil negative CPK mildly elevated (not enough to affect kidney function) holding diuretics at this time (appears to be making more urine on his own) follow trend of repeat labs and UOP (2) Septic shock: Code(s): A41.9 - Sepsis, unspecified organism; R65.21 - Severe sepsis with septic shock Status: Acute Assessment and Plan: presumed source = pneumonia and right lower extremity cellulitis s/p aggressive IVF resuscitation as well as IV albumin on vasopressor therapy to maintain MAP follow culture data on antibiotics follow trend of hemodynamics (3) Acute respiratory failure with hypoxia and hypercapnia: Code(s): J96.01 - Acute respiratory failure with hypoxia; J96.02 - Acute respiratory failure with hypercapnia Status: Acute Assessment and Plan: due to a combination of pneumonia and pulmonary edema also had cough and flu-like symptoms several days prior to presentation currently on ventilator support viral studies negative ventilator weaning when more stable (4) Pneumonia: Qualifiers: Laterality: unspecified laterality Lung location: lower lobe of lung Pneumonia type: due to unspecified organism Qualified Code(s): J18.9 - Pneumonia, unspecified organism Code(s): J18.9 - Pneumonia, unspecified organism Status: Acute Assessment and Plan: as noted by admission imaging sputum culture with Pseudomonas on antibiotics (5) Cellulitis: Code(s): L03.90 - Cellulitis, unspecified Status: Acute Assessment and Plan: suggested by exam on right lower extremity local wound care on antibiotics (6) Atrial fibrillation: Onset Date: 04/20/17 Code(s): I48.91 - Unspecified atrial fibrillation Status: Chronic Assessment and Plan: rate controlled on anticoagulation (7) Type 2 diabetes mellitus with hyperglycemia, with long-term current use of insulin: Code(s): E11.65 - Type 2 diabetes mellitus with hyperglycemia; Z79.4 - long term care social worker (current) use of insulin Status: Acute Assessment and Plan: follow accu-cheks glycemic control per dialer/hospitalist Will continue to follow. Subjective Date/time seen: 10/29/23 10:16 Interval history: Follow-up for acute kidney injury/acute renal failure. Continues to make good urine output without the need for IV diuretic therapy with improvement in renal function/creatinine; remains intubated/sedated and on ventilator support; still requiring low dose levophed to maintain MAP; no other acute issues/events overnight or earlier this morning. Exam Narrative: General: elderly male intubated and on mechanical ventilation Heart: normal S1 and S2; no rub Lungs: coarse breath sounds Abdomen: soft, nontender, nondistended, positive bowel sounds Extremities: no cyanosis or clubbing; trace edema Skin: chronic venous dermatitis apparent Objective Data Vital Signs Vital Signs: Vital Signs Temp Pulse Resp BP Pulse Ox O2 Del Method FiO2 10/29/23 10:00 97.5 F L 73 13 135/57 L 98 10/29/23 08:40 77 97 Mechanical Ventilation 30 10/29/23 08:35 30 10/29/23 08:45 73 126/63 10/29/23 08:00 77 124/66 10/29/23 08:00 97.7 F 74 16 115/60 99 30 10/29/23 07:56 73 17 10/29/23
--- NOTE | 2023-10-29 10:16 | P.PNNP_ITS ---
Progress Note: A&P Assessment and Plan (1) Acute kidney injury: Code(s): N17.9 - Acute kidney failure, unspecified Status: Acute Assessment and Plan: * as noted by labs since 10/23/23 * slow improvement noted since 10/28/23 * normal renal function/creatinine at baseline * suspect due to renal hypoperfusion with an element of ATN from septic shock, hemodynamic instability, and hypoxia * s/p aggressive IVF resuscitation since admission * evaluation to date noted: * renal ultrasound normal * urine electrolytes prerenal (despite evidence of volume overload/pulmonary edema) * urine eosinophil negative * CPK mildly elevated (not enough to affect kidney function) * holding diuretics at this time (appears to be making more urine on his own) * follow trend of repeat labs and UOP (2) Septic shock: Code(s): A41.9 - Sepsis, unspecified organism; R65.21 - Severe sepsis with septic shock Status: Acute Assessment and Plan: * presumed source = pneumonia and right lower extremity cellulitis * s/p aggressive IVF resuscitation as well as IV albumin * on vasopressor therapy to maintain MAP * follow culture data * on antibiotics * follow trend of hemodynamics (3) Acute respiratory failure with hypoxia and hypercapnia: Code(s): J96.01 - Acute respiratory failure with hypoxia; J96.02 - Acute respiratory failure with hypercapnia Status: Acute Assessment and Plan: * due to a combination of pneumonia and pulmonary edema * also had cough and flu-like symptoms several days prior to presentation * currently on ventilator support * viral studies negative * ventilator weaning when more stable (4) Pneumonia: Qualifiers: Laterality: unspecified laterality Lung location: lower lobe of lung Pneumonia type: due to unspecified organism Qualified Code(s): J18.9 - Pneumonia, unspecified organism Code(s): J18.9 - Pneumonia, unspecified organism Status: Acute Assessment and Plan: * as noted by admission imaging * sputum culture with Pseudomonas * on antibiotics (5) Cellulitis: Code(s): L03.90 - Cellulitis, unspecified Status: Acute Assessment and Plan: * suggested by exam on right lower extremity * local wound care * on antibiotics (6) Atrial fibrillation: Onset Date: 04/20/17 Code(s): I48.91 - Unspecified atrial fibrillation Status: Chronic Assessment and Plan: * rate controlled * on anticoagulation (7) Type 2 diabetes mellitus with hyperglycemia, with long-term current use of insulin: Code(s): E11.65 - Type 2 diabetes mellitus with hyperglycemia; Z79.4 - terminal manager (current) use of insulin Status: Acute Assessment and Plan: * follow accu-cheks * glycemic control per wrapper operator/hospitalist Will continue to follow. Subjective Date/time seen: 10/29/23 10:16 Interval history: Follow-up for acute kidney injury/acute renal failure. Continues to make good urine output without the need for IV diuretic therapy with improvement in renal function/creatinine; remains intubated/sedated and on ventilator support; still requiring low dose levophed to maintain MAP; no other acute issues/events overnight or earlier this morning. Exam Narrative: General: elderly male intubated and on mechanical ventilation Heart: normal S1 and S2; no rub Lungs: coarse breath sounds Abdomen: soft, nontender, nondistended, positive bowel sounds
[2023-10-29] MEDS: HEPARIN SOD/D5W 100 UNITS/ML 25,000 UNITS/250 ML BAG 15 UNITS IV CONT (12:01)
[2023-10-29 12:17] LABS: Glucose Point of Care 405 mg/dl (65-105)
[2023-10-29] MEDS: INSULIN HUMAN REGULAR (*BKC) 100 UNITS/ML 11 UNITS IV PUSH (12:22)
[2023-10-29 16:17] LABS: Glucose Point of Care 374 mg/dl (65-105)
[2023-10-29] MEDS: INSULIN ASPART (*BKC) 100 UNITS/ML 10 UNITS SUB-Q ×2 (16:19→21:56)
[2023-10-29 20:21] LABS: Glucose Point of Care 343 mg/dl (65-105)
[2023-10-29] MEDS: INSULIN GLARGINE (*BKC) 100 UNITS/ML 30 UNITS SUB-Q (21:56)
[2023-10-30] VITALS (40 sets, daily range): BP systolic 100–143; BP diastolic 48–64; PULSE 65–87; RESP 14–96; TEMP 37.6–39.1; O2SAT 90–100
[2023-10-30] MEDS: ACETAMINOPHEN 325 MG TABLET 650 MG PO ×3 (02:10→18:47)
[2023-10-30] MEDS: INSULIN ASPART (*BKC) 100 UNITS/ML 10 UNITS SUB-Q ×3 (02:10→08:19)
[2023-10-30] MEDS: INSULIN ASPART (*BKC) 100 UNITS/ML SUB-Q ×6 (02:10→20:28)
[2023-10-30] MEDS: IPRATROPIUM 0.5 MG/ALBUTEROL SULFATE 2.5 MG AMPUL.NEB 3 ML INHALATION ×3 (02:15→20:18)
[2023-10-30 02:20] LABS: Glucose Point of Care 420 mg/dl (65-105)
[2023-10-30 02:20] LABS: Glucose Point of Care 392 mg/dl (65-105)
[2023-10-30] MEDS: HEPARIN SOD/D5W 100 UNITS/ML 25,000 UNITS/250 ML BAG 15 UNITS IV CONT ×2 (05:38→20:40)
[2023-10-30 05:42] LABS: Hematocrit 35.7 % (42.0-52.0); Hemoglobin 10.8 g/dL (14.0-18.0); Mean Corpuscular HGB Conc 30.3 g/dl (32-36); Mean Corpuscular Hemoglobin 25.7 pg (26-34); Mean Platelet Volume 10.4 fl (7.4-10.4); Platelet Count Result 342 k/mm3 (150-375); Red Cell Distribution Width 22.6 % (11.5-14.5); White Blood Count 11.2 K/mm3 (4.5-10.0)
[2023-10-30 05:46] LABS: Alveolar/Arterial O2 Gradient 136.2 mmHg; Base Excess ABG 2.3 mEq/l (+/-2.0); Carboxyhemoglobin 1.1 % THb (0-2.0); Fractional Inspired Oxygen 40 %; HCO3 ABG 27.3 mEq/l (22.0-26.0); Methemoglobin ABG 0.3 %THb (0-1.5); Oxygen Content ABG 15.7 %vol (16.0-22.0); Oxygen Saturation ABG 97.5 % (95.0-100.0); Oxyhemoglobin 96.3 % THb (90.0-100.0); PCO2 ABG 43.7 mmHg (35.0-45.0); PO2 ABG 98.7 mmHg (80.0-100.0); PO2 FiO2 Ratio Arterial Blood 2.47 %; Reduced Hemoglobin 2.3 %THb (0-5.0); Total Hemoglobin 11.5 g/dL (12.0-18.0); pH ABG 7.413 (7.350-7.450)
[2023-10-30 05:52] LABS: Device VENTILATOR; Modified Allen's Test Unable to perform; Site Drawn RIGHT RADIAL
[2023-10-30 05:53] LABS: Alanine Aminotransferase 18 U/L (6-50); Albumin Level 3.6 g/dL (3.5-5.1); Alkaline Phosphatase 126 U/L (38-126); Anion Gap 10 mmol/L (4-12); Arterial Blood Gas PEEP 8 cmH2O; Arterial Blood Gas Tidal Volume 450 ml; Arterial Blood Gas Vent Mode CMV; Arterial Blood Gas Ventilator rate 16 /MIN; Aspartate Amino Transferase 45 U/L (17-59); Blood Urea Nitrogen 78 mg/dL (9-20); Calcium 10.1 mg/dL (8.4-10.2); Carbon Dioxide 33 mmol/L (22-30); Chloride 100 mmol/L (98-107); Estimated CRCL calculation 42 ml/min; Estimated Glomerular Filt Rate 40; Glucose 338 mg/dL (65-110); Magnesium 2.1 mg/dL (1.6-2.3); Potassium 4.6 mmol/L (3.4-5.0); Sodium 143 mmol/L (137-145)
[2023-10-30 05:55] LABS: INR 1.2; Prothrombin Time 15.5 Seconds (11.1-14.7)
[2023-10-30 05:57] LABS: Partial Thromboplastin Time 85.9 Seconds (22.3-36.8)
[2023-10-30 07:29] LABS: Glucose Point of Care 304 mg/dl (65-105)
[2023-10-30] MEDS: CENTRAL LINE FLUSH 10 ML IV PUSH ×3 (07:37→20:35)
[2023-10-30 08:04] LABS: Glucose Point of Care 377 mg/dl (65-105)
--- NOTE | 2023-10-30 08:07 | PCRCNOTE ---
Patient started on SBT @ [address] Aguilar 10/09 with 40$ FiO2.
--- NOTE | 2023-10-30 08:13 | WPDINTPN ---
Progress Note: A&P Assessment and Plan (1) Acute respiratory failure with hypoxia and hypercapnia: Code(s): J96.01 - Acute respiratory failure with hypoxia; J96.02 - Acute respiratory failure with hypercapnia Status: Acute Assessment and Plan: 10/20: Pt presented with AMS, cough, and flu like symptoms. -respiratory failure is multifactorial acute respiratory failure secondary to pulmonary edema, pneumonia -10/20: intubated -Chest x-ray and ABG reviewed. -on CMV mode of ventilation, peep of 8 and 30% FiO2 -off all sedation since 10/24/2023 -10/26 and 10/27: Tried patient on pressure support ventilation low respiratory rate and tidal volumes leading to ventilator going into apnea mode. Continue to hold sedation sedation and CMV mode at this time - 10/28 patient placed on PSV 07/12 continue as tolerated ABG shows hypercarbia and respiratory acidosis. - 10/29 will try PSV again today but I do not think patient is ready for extubation as patient is quite weak with very weak cough and has increased respiratory secretions and he will need nippv post extubation hence at this time will continue with mechanical ventilation. Advanced ET tube 2 cm 10/25: CT chest/abdomen/pelvis without contrast IMPRESSION: 1. Small pleural effusions. 2. Small volume of ascites. 3. Large volume of stool in the colon with distention of the descending and transverse colon, consistent with adynamic ileus. (2) Septic shock: Code(s): A41.9 - Sepsis, unspecified organism; R65.21 - Severe sepsis with septic shock Status: Acute Assessment and Plan: Septic shock secondary to Pseudomonas pneumonia and cellulitis of right lower extremity -adequately fluid-resuscitated, received additional IV fluids in light of worsening renal function and 25% albumin 10/22 -continue Levophed, maintain MAP > 65 mmHg -10/23: will discontinue vancomycin as MRSA screen is negative. He did complete 5 day course of doxycycline -10/21: sputum culture growing Pseudomonas pneumonia. Continue cefepime to 2 g q.12 hours. Patient also has positive urine Legionella antigen. He received 5 day course of doxycycline and now is on azithromycin for another 10 days -10/26 Rrepeat blood, urine and sputum cultures sent and are negative till now - 10/27 Nayak catheter was replaced - 10/29 With increased respiratory secretions and worsening chest x-ray there is a concern of pneumonia. WBC slightly elevated and patient also has fever Will obtain procalcitonin level, CT chest and change antibiotics to vancomycin and meropenem (3) Encephalopathy: Qualifiers: Encephalopathy type: toxic metabolic Qualified Code(s): G92.8 - Other toxic encephalopathy Code(s): G93.40 - Encephalopathy, unspecified Status: Acute Assessment and Plan: Encephalopathy could be related to septic shock, critical care illness, residual sedation medications -check ammonia level -10/06: CT brain showed no intracranial findings -likely secondary to sedation Will and is gradually improving as sedation is wearing off patient today is following commands with all 4 extremities although appears quite weak (4) Pneumonia: Qualifiers: Laterality: unspecified laterality Lung location: lower lobe of lung Pneumonia type: due to unspecified organism Qualified Code(s): J18.9 - Pneumonia, unspecified organism Code(s): J18.9 - Pneumonia, unspecified organism Status: Acute Assessment and Plan: See above (5) Acute kidney injury: Code(s): N17.9 - Acute kidney failure, unspecified Status: Acute Assessment and Plan: Acute kidney injury, baseline creatinine and (1.00-1.30) . Creatinine on admission was stable -received adequate amount of IV fluids, -10/22: Worsening renal function, Patient was given IV fluids and albumin, -obtain urine lytes, urine eosinophils, CK level -10/24/2023: Renal ultrasound showed normal kidneys and no hydronephrosis -appreciate Ne
[2023-10-30] MEDS: ROSUVASTATIN 10 MG TABLET PO (08:18)
[2023-10-30] MEDS: polyethylene glycoL 3350 17 GM POWD.PACK PO (08:18)
[2023-10-30] MEDS: PANTOPRAZOLE SODIUM IV 40 MG VIAL IV PUSH (08:18)
[2023-10-30] MEDS: TOLNAFTATE 1% POWDER 45 GM BTL 1 APPLIC TOPICAL ×2 (08:18→20:34)
[2023-10-30] MEDS: CEFEPIME 2 GM/NS 50 ML 2 GM/50 ML BAG IVPB (08:19)
[2023-10-30] MEDS: MINERAL OIL/WHITE PETROLATUM OINTMENT 1 APPLIC EACH EYE ×2 (08:19→20:34)
[2023-10-30] MEDS: AZITHROMYCIN 250 MG TABLET 500 MG PO (08:19)
[2023-10-30] MEDS: INSULIN GLARGINE (*BKC) 100 UNITS/ML SUB-Q (08:55)
--- NOTE | 2023-10-30 09:04 | PCRCNOTE ---
Advanced ET tube 2cm per Dr. Aguilar. Pt's ET tube now 25 @ the top lip. Pt still tolerating Spontaneous mode. Pt will stay in SBT per Dr. Aguilar until he is taken down to CT then will switch him back to CMV mode.
[2023-10-30] MEDS: MEROPENEM 1 GM/NS 100 ML 1 GM/100 ML BAG IVPB ×2 (09:11→20:33)
[2023-10-30 09:53] LABS: Procalcitonin 0.5 ng/mL
--- NOTE | 2023-10-30 11:31 | P.PNNP_ITS ---
Progress Note: A&P Assessment and Plan (1) Acute kidney injury: Code(s): N17.9 - Acute kidney failure, unspecified Status: Acute Assessment and Plan: * as noted by labs since 10/23/23 * slow improvement noted since 10/28/23 * normal renal function/creatinine at baseline * suspect due to renal hypoperfusion with an element of ATN from septic shock, hemodynamic instability, and hypoxia * s/p aggressive IVF resuscitation since admission * evaluation to date noted: * renal ultrasound normal * urine electrolytes prerenal (despite evidence of volume overload/pulmonary edema) * urine eosinophil negative * CPK mildly elevated (not enough to affect kidney function) * holding diuretics at this time (appears to be making more urine on his own) * would use IV diuretics PRN * follow trend of repeat labs and UOP (2) Septic shock: Code(s): A41.9 - Sepsis, unspecified organism; R65.21 - Severe sepsis with septic shock Status: Acute Assessment and Plan: * presumed source = pneumonia and right lower extremity cellulitis * s/p aggressive IVF resuscitation as well as IV albumin * on vasopressor therapy to maintain MAP * follow culture data * on antibiotics * follow trend of hemodynamics (3) Acute respiratory failure with hypoxia and hypercapnia: Code(s): J96.01 - Acute respiratory failure with hypoxia; J96.02 - Acute respiratory failure with hypercapnia Status: Acute Assessment and Plan: * due to a combination of pneumonia and pulmonary edema * also had cough and flu-like symptoms several days prior to presentation * currently on ventilator support * viral studies negative * ventilator weaning when more stable (4) Pneumonia: Qualifiers: Laterality: unspecified laterality Lung location: lower lobe of lung Pneumonia type: due to unspecified organism Qualified Code(s): J18.9 - Pneumonia, unspecified organism Code(s): J18.9 - Pneumonia, unspecified organism Status: Acute Assessment and Plan: * as noted by admission imaging * sputum culture with Pseudomonas * on antibiotics (5) Cellulitis: Code(s): L03.90 - Cellulitis, unspecified Status: Acute Assessment and Plan: * suggested by exam on right lower extremity * local wound care * on antibiotics (6) Atrial fibrillation: Onset Date: 04/20/17 Code(s): I48.91 - Unspecified atrial fibrillation Status: Chronic Assessment and Plan: * rate controlled * on anticoagulation (7) Type 2 diabetes mellitus with hyperglycemia, with long-term current use of insulin: Code(s): E11.65 - Type 2 diabetes mellitus with hyperglycemia; Z79.4 - [facility] (current) use of insulin Status: Acute Assessment and Plan: * follow accu-cheks * glycemic control per equipment analyst/hospitalist Will continue to follow. Subjective Date/time seen: 10/30/23 11:31 Interval history: Follow-up for acute kidney injury/acute renal failure. Renal function/creatinine remains relatively stable with reasonable urine output noted; low grade fevers this AM and febrile overnight (Tmax 101.3); remains intubated and on mechanical ventilation along with low dose levophed gtt to maintain MAP; increased respiratory secretions noted in the last 24 hours. Exam Narrative: General: elderly male intubated and on mechanical ventilation Heart: normal S1 and S2; no rub Lungs: coarse breath sounds Abdomen: soft, nontender
--- NOTE | 2023-10-30 11:31 | PM.PNNEP ---
Progress Note: A&P Assessment and Plan (1) Acute kidney injury: Code(s): N17.9 - Acute kidney failure, unspecified Status: Acute Assessment and Plan: as noted by labs since 10/23/23 slow improvement noted since 10/28/23 normal renal function/creatinine at baseline suspect due to renal hypoperfusion with an element of ATN from septic shock, hemodynamic instability, and hypoxia s/p aggressive IVF resuscitation since admission evaluation to date noted: renal ultrasound normal urine electrolytes prerenal (despite evidence of volume overload/pulmonary edema) urine eosinophil negative CPK mildly elevated (not enough to affect kidney function) holding diuretics at this time (appears to be making more urine on his own) would use IV diuretics PRN follow trend of repeat labs and UOP (2) Septic shock: Code(s): A41.9 - Sepsis, unspecified organism; R65.21 - Severe sepsis with septic shock Status: Acute Assessment and Plan: presumed source = pneumonia and right lower extremity cellulitis s/p aggressive IVF resuscitation as well as IV albumin on vasopressor therapy to maintain MAP follow culture data on antibiotics follow trend of hemodynamics (3) Acute respiratory failure with hypoxia and hypercapnia: Code(s): J96.01 - Acute respiratory failure with hypoxia; J96.02 - Acute respiratory failure with hypercapnia Status: Acute Assessment and Plan: due to a combination of pneumonia and pulmonary edema also had cough and flu-like symptoms several days prior to presentation currently on ventilator support viral studies negative ventilator weaning when more stable (4) Pneumonia: Qualifiers: Laterality: unspecified laterality Lung location: lower lobe of lung Pneumonia type: due to unspecified organism Qualified Code(s): J18.9 - Pneumonia, unspecified organism Code(s): J18.9 - Pneumonia, unspecified organism Status: Acute Assessment and Plan: as noted by admission imaging sputum culture with Pseudomonas on antibiotics (5) Cellulitis: Code(s): L03.90 - Cellulitis, unspecified Status: Acute Assessment and Plan: suggested by exam on right lower extremity local wound care on antibiotics (6) Atrial fibrillation: Onset Date: 04/20/17 Code(s): I48.91 - Unspecified atrial fibrillation Status: Chronic Assessment and Plan: rate controlled on anticoagulation (7) Type 2 diabetes mellitus with hyperglycemia, with long-term current use of insulin: Code(s): E11.65 - Type 2 diabetes mellitus with hyperglycemia; Z79.4 - emt intermediate (current) use of insulin Status: Acute Assessment and Plan: follow accu-cheks glycemic control per vmware systems administrator/hospitalist Will continue to follow. Subjective Date/time seen: 10/30/23 11:31 Interval history: Follow-up for acute kidney injury/acute renal failure. Renal function/creatinine remains relatively stable with reasonable urine output noted; low grade fevers this AM and febrile overnight (Tmax 101.3); remains intubated and on mechanical ventilation along with low dose levophed gtt to maintain MAP; increased respiratory secretions noted in the last 24 hours. Exam Narrative: General: elderly male intubated and on mechanical ventilation Heart: normal S1 and S2; no rub Lungs: coarse breath sounds Abdomen: soft, nontender, nondistended, positive bowel sounds Extremities: no cyanosis or clubbing; trace edema Skin: chronic venous dermatitis present Objective Data Vital Signs Vital Signs: Vital Signs Temp Pulse Resp BP Pulse Ox O2 Del Method FiO2 10/30/23 11:19 66 16 96 Mechanical Ventilation 40 10/30/23 11:19 66 96 Mechanical Ventilation 40 10/30/23 10:00 100.2 F H 70 18 107/55 L 96 10/30/23 09:00 81 143/64 H 10/30/23 08:00 77 129/63 10/30/23 08:0
[2023-10-30] MEDS: NOREPINEPHRINE 8 MG/D5W 250 ML 8 MG/250 ML BAG 3.75 MG IV CONT (11:50)
[2023-10-30] MEDS: VANCOMYCIN 1,500 MG/NS 500 ML 1,500 MG/500 ML BAG 250 MG IVPB (11:56)
[2023-10-30 11:57] LABS: Glucose Point of Care 328 mg/dl (65-105)
[2023-10-30] MEDS: BUMETANIDE INJ 1 MG/4 ML VIAL IV PUSH (11:57)
[2023-10-30] MEDS: INSULIN ASPART (*BKC) 100 UNITS/ML 15 UNITS SUB-Q ×3 (12:00→20:28)
[2023-10-30 12:05] LABS: Glucose Point of Care 286 mg/dl (65-105)
[2023-10-30 16:18] LABS: Glucose Point of Care 304 mg/dl (65-105)
[2023-10-30] MEDS: INSULIN GLARGINE (*BKC) 100 UNITS/ML 50 UNITS SUB-Q (20:27)
[2023-10-30 20:44] LABS: Glucose Point of Care 303 mg/dl (65-105)
[2023-10-31] VITALS (38 sets, daily range): BP systolic 109–162; BP diastolic 54–76; PULSE 66–91; RESP 14–27; TEMP 37.9–38.8; O2SAT 90–96
[2023-10-31 01:33] LABS: Glucose Point of Care 279 mg/dl (65-105)
[2023-10-31] MEDS: INSULIN ASPART (*BKC) 100 UNITS/ML SUB-Q ×6 (01:36→20:15)
[2023-10-31] MEDS: INSULIN ASPART (*BKC) 100 UNITS/ML 15 UNITS SUB-Q ×2 (01:36→05:10)
[2023-10-31] MEDS: IPRATROPIUM 0.5 MG/ALBUTEROL SULFATE 2.5 MG AMPUL.NEB 3 ML INHALATION ×4 (03:14→20:21)
[2023-10-31] MEDS: ACETAMINOPHEN ELIXIR 325 MG/10.15 ML UDC 650 MG PO ×3 (05:09→20:14)
[2023-10-31 05:10] LABS: Glucose Point of Care 290 mg/dl (65-105)
[2023-10-31 05:23] LABS: Fractional Inspired Oxygen 30 %
[2023-10-31 05:50] LABS: Hematocrit 34.7 % (42.0-52.0); Hemoglobin 10.6 g/dL (14.0-18.0); Mean Corpuscular HGB Conc 30.5 g/dl (32-36); Mean Corpuscular Hemoglobin 26.4 pg (26-34); Mean Corpuscular Volume 86.5 fl (80-100); Mean Platelet Volume 10.1 fl (7.4-10.4); Platelet Count Result 321 k/mm3 (150-375); Red Blood Count 4.01 M/mm3 (4.6-6.20); Red Cell Distribution Width 22.4 % (11.5-14.5); White Blood Count 13.8 K/mm3 (4.5-10.0)
[2023-10-31 05:51] LABS: PCO2 ABG 44.5 mmHg (35.0-45.0); pH ABG 7.445 (7.350-7.450)
[2023-10-31 05:52] LABS: Alveolar/Arterial O2 Gradient 64.2 mmHg; Base Excess ABG 5.2 mEq/l (+/-2.0); HCO3 ABG 29.9 mEq/l (22.0-26.0); Oxygen Saturation ABG 97.6 % (95.0-100.0); PO2 ABG 97.4 mmHg (80.0-100.0); Total Hemoglobin 11.2 g/dL (12.0-18.0)
[2023-10-31 05:53] LABS: Carboxyhemoglobin 0.9 % THb (0-2.0); Methemoglobin ABG 0.3 %THb (0-1.5); Oxygen Content ABG 15.3 %vol (16.0-22.0); Oxyhemoglobin 96.3 % THb (90.0-100.0); PO2 FiO2 Ratio Arterial Blood 3.25 %; Reduced Hemoglobin 2.5 %THb (0-5.0); Site Drawn RIGHT RADIAL
[2023-10-31 05:54] LABS: Device VENTILATOR; Modified Allen's Test Pass
[2023-10-31 06:02] LABS: Alanine Aminotransferase 21 U/L (6-50); Albumin Level 3.6 g/dL (3.5-5.1); Alkaline Phosphatase 110 U/L (38-126); Anion Gap 8 mmol/L (4-12); Aspartate Amino Transferase 50 U/L (17-59); Bilirubin,Total 0.9 mg/dL (0.2-1.3); Blood Urea Nitrogen 82 mg/dL (9-20); Calcium 9.9 mg/dL (8.4-10.2); Carbon Dioxide 35 mmol/L (22-30); Chloride 101 mmol/L (98-107); Estimated CRCL calculation 45 ml/min; Estimated Glomerular Filt Rate 43; Glucose 310 mg/dL (65-110); INR 1.3; Magnesium 2.1 mg/dL (1.6-2.3); Prothrombin Time 16.4 Seconds (11.1-14.7); Sodium 144 mmol/L (137-145)
[2023-10-31 06:05] LABS: Partial Thromboplastin Time 111.8 Seconds (22.3-36.8)
--- NOTE | 2023-10-31 08:39 | PM.PNNEP ---
Progress Note: A&P Assessment and Plan (1) Acute kidney injury: Code(s): N17.9 - Acute kidney failure, unspecified Status: Acute Assessment and Plan: as noted by labs since 10/23/23 slow improvement noted since 10/28/23 normal renal function/creatinine at baseline suspect due to renal hypoperfusion with an element of ATN from septic shock, hemodynamic instability, and hypoxia s/p aggressive IVF resuscitation since admission evaluation to date noted: renal ultrasound normal urine electrolytes prerenal (despite evidence of volume overload/pulmonary edema) urine eosinophil negative CPK mildly elevated (not enough to affect kidney function) holding diuretics at this time (appears to be making more urine on his own) would use IV diuretics PRN follow trend of repeat labs and UOP (2) Septic shock: Code(s): A41.9 - Sepsis, unspecified organism; R65.21 - Severe sepsis with septic shock Status: Acute Assessment and Plan: presumed source = pneumonia and right lower extremity cellulitis s/p aggressive IVF resuscitation as well as IV albumin on vasopressor therapy to maintain MAP follow culture data on antibiotics follow trend of hemodynamics (3) Acute respiratory failure with hypoxia and hypercapnia: Code(s): J96.01 - Acute respiratory failure with hypoxia; J96.02 - Acute respiratory failure with hypercapnia Status: Acute Assessment and Plan: due to a combination of pneumonia and pulmonary edema also had cough and flu-like symptoms several days prior to presentation currently on ventilator support viral studies negative ventilator weaning when more stable (4) Pneumonia: Qualifiers: Laterality: unspecified laterality Lung location: lower lobe of lung Pneumonia type: due to unspecified organism Qualified Code(s): J18.9 - Pneumonia, unspecified organism Code(s): J18.9 - Pneumonia, unspecified organism Status: Acute Assessment and Plan: as noted by admission imaging sputum culture with Pseudomonas on antibiotics (5) Cellulitis: Code(s): L03.90 - Cellulitis, unspecified Status: Acute Assessment and Plan: suggested by exam on right lower extremity local wound care on antibiotics (6) Atrial fibrillation: Onset Date: 04/20/17 Code(s): I48.91 - Unspecified atrial fibrillation Status: Chronic Assessment and Plan: rate controlled on anticoagulation (7) Type 2 diabetes mellitus with hyperglycemia, with long-term current use of insulin: Code(s): E11.65 - Type 2 diabetes mellitus with hyperglycemia; Z79.4 - half-way (current) use of insulin Status: Acute Assessment and Plan: follow accu-cheks glycemic control per ceramic mold designer/hospitalist Not much else to add at this time -- will continue to follow from a distance. Subjective Date/time seen: 10/31/23 08:39 Interval history: Follow-up for acute kidney injury/acute renal failure. Remains intubated and on mechanical ventilation; renal function/creatinine continues to improve with adequate urine output; still with intermittent fevers; remains on low dose levophed gtt with ongoing weaning as tolerated. Exam Narrative: General: elderly male intubated and on mechanical ventilation Heart: normal S1 and S2; no rub Lungs: coarse breath sounds Abdomen: soft, nontender, nondistended, positive bowel sounds Extremities: no cyanosis or clubbing; trace edema Skin: chronic venous dermatitis present Objective Data Vital Signs Vital Signs: Vital Signs - 24 hr 10/29/2409:00 10/29/2410:19 10/29/2410:19 Temperature 37.9 C H Pulse Rate 70 66 66 Respiratory Rate 18 16 Blood Pressure 107/55 L Pulse Oximetry 96 96 96 Oxygen Delivery Mechanical Ventilation Mechanical Ventilation Fraction of Inspired Oxygen 40 40 10/29/2410:45 10/29/2410:50 10/29/2410:50 Temperature
--- NOTE | 2023-10-31 08:39 | P.PNNP_ITS ---
(3) Acute respiratory failure with hypoxia and hypercapnia: Code(s): J96.01 - Acute respiratory failure with hypoxia; J96.02 - Acute respiratory failure with hypercapnia Status: Acute Assessment and Plan: * due to a combination of pneumonia and pulmonary edema * also had cough and flu-like symptoms several days prior to presentation * currently on ventilator support * viral studies negative * ventilator weaning when more stable (4) Pneumonia: Qualifiers: Laterality: unspecified laterality Lung location: lower lobe of lung Pneumonia type: due to unspecified organism Qualified Code(s): J18.9 - Pneumonia, unspecified organism Code(s): J18.9 - Pneumonia, unspecified organism Status: Acute Assessment and Plan: * as noted by admission imaging * sputum culture with Pseudomonas * on antibiotics (5) Cellulitis: Code(s): L03.90 - Cellulitis, unspecified Status: Acute Assessment and Plan: * suggested by exam on right lower extremity * local wound care * on antibiotics (6) Atrial fibrillation: Onset Date: 04/20/17 Code(s): I48.91 - Unspecified atrial fibrillation Status: Chronic Assessment and Plan: * rate controlled * on anticoagulation (7) Type 2 diabetes mellitus with hyperglycemia, with long-term current use of insulin: Code(s): E11.65 - Type 2 diabetes mellitus with hyperglycemia; Z79.4 - USP (current) use of insulin Status: Acute Assessment and Plan: * follow accu-cheks * glycemic control per electrical technician instructor/hospitalist Not much else to add at this time -- will continue to follow from a distance. Subjective Date/time seen: 10/31/23 08:39 Interval history: Follow-up for acute kidney injury/acute renal failure. Remains intubated and on mechanical ventilation; renal function/creatinine continues to improve with adequate urine output; still with intermittent fevers; remains on low dose levophed gtt with ongoing weaning as tolerated. Exam Narrative: General: elderly male intubated and on mechanical ventilation Heart: normal S1 and S2; no rub Lungs: coarse breath sounds Abdomen: soft, nontender, nondistended, positive bowel sounds Extremities: no cyanosis or clubbing; trace edema Skin: chronic venous dermatitis present Objective Data Vital Signs Vital Signs: Vital Signs - 24 hr 10/29/2409:00 10/29/2410:19 10/29/2410:19 Temperature 37.9 C H Pulse Rate 70 66 66 Respiratory Rate 18 16 Blood Pressure 107/55 L Pulse Oximetry 96 96 96 Oxygen Delivery Mechanical Ventilation Mechanical Ventilation Fraction of Inspired Oxygen 40 40 10/29/2410:45 10/29/2410:50 10/29/2410:50 Temperature Pulse Rate 65 65 65 Respiratory Rate Blood Pressure 102/53 L 102/53 L 102/53 L Pulse Oximetry Oxygen Delivery Fraction of Inspired Oxygen 10/30/2411:00 10/30/2411:00 10/30/2411:15 Temperature 38.1 C H Pulse Rate 70 70 80 Respiratory Rate 16 Blood Pressure 100/52 L 100/52 L 142/64 H Pulse Oximetry 97 Oxygen Delivery Fraction of Inspired Oxygen 10/30/2411:00 10/29/2409:00 10/29/2413:00 Temperature Pulse Rate 70 83 Respiratory R
[2023-10-31 08:54] LABS: Lipase 715 U/L (23-300)
[2023-10-31] MEDS: PANTOPRAZOLE SODIUM IV 40 MG VIAL IV PUSH (09:00)
[2023-10-31] MEDS: ROSUVASTATIN 10 MG TABLET PO (09:00)
[2023-10-31] MEDS: AZITHROMYCIN 250 MG TABLET 500 MG PO (09:00)
[2023-10-31] MEDS: polyethylene glycoL 3350 17 GM POWD.PACK PO (09:00)
[2023-10-31] MEDS: BUMETANIDE INJ 1 MG/4 ML VIAL IV PUSH (09:00)
[2023-10-31] MEDS: MINERAL OIL/WHITE PETROLATUM OINTMENT 1 APPLIC EACH EYE (09:03)
[2023-10-31] MEDS: CENTRAL LINE FLUSH 10 ML IV PUSH ×3 (09:04→20:15)
[2023-10-31] MEDS: TOLNAFTATE 1% POWDER 45 GM BTL 1 APPLIC TOPICAL ×2 (09:04→20:14)
[2023-10-31 09:15] LABS: Glucose Point of Care 278 mg/dl (65-105)
[2023-10-31] MEDS: MEROPENEM 1 GM/NS 100 ML 1 GM/100 ML BAG IVPB ×2 (09:21→20:13)
[2023-10-31] MEDS: INSULIN ASPART (*BKC) 100 UNITS/ML 18 UNITS SUB-Q ×2 (09:24→12:28)
[2023-10-31] MEDS: INSULIN GLARGINE (*BKC) 100 UNITS/ML SUB-Q (09:27)
--- NOTE | 2023-10-31 09:30 | WPDINTPN ---
Progress Note: A&P Assessment and Plan (1) Acute respiratory failure with hypoxia and hypercapnia: Code(s): J96.01 - Acute respiratory failure with hypoxia; J96.02 - Acute respiratory failure with hypercapnia Status: Acute Assessment and Plan: 10/20: Pt presented with AMS, cough, and flu like symptoms. -respiratory failure is multifactorial acute respiratory failure secondary to pulmonary edema, pneumonia -10/20: intubated -Chest x-ray and ABG reviewed. -on CMV mode of ventilation, peep of 8 and 30% FiO2 -off all sedation since 10/24/2023 -10/26 and 10/27: Tried patient on pressure support ventilation low respiratory rate and tidal volumes leading to ventilator going into apnea mode. Continue to hold sedation sedation and CMV mode at this time - 10/28 patient placed on PSV 07/12 continue as tolerated ABG shows hypercarbia and respiratory acidosis. - 10/29 will try PSV again today but I do not think patient is ready for extubation as patient is quite weak with very weak cough and has increased respiratory secretions and he will need nippv post extubation hence at this time will continue with mechanical ventilation. Advanced ET tube 2 cm 10/30 patient placed on PSV trial again today 10/25: CT chest/abdomen/pelvis without contrast IMPRESSION: 1. Small pleural effusions. 2. Small volume of ascites. 3. Large volume of stool in the colon with distention of the descending and transverse colon, consistent with adynamic ileus. (2) Septic shock: Code(s): A41.9 - Sepsis, unspecified organism; R65.21 - Severe sepsis with septic shock Status: Acute Assessment and Plan: Septic shock secondary to Pseudomonas pneumonia and cellulitis of right lower extremity -adequately fluid-resuscitated, received additional IV fluids in light of worsening renal function and 25% albumin 10/22 -continue Levophed, maintain MAP > 65 mmHg -10/23: will discontinue vancomycin as MRSA screen is negative. He did complete 5 day course of doxycycline -10/21: sputum culture growing Pseudomonas pneumonia. Continue cefepime to 2 g q.12 hours. Patient also has positive urine Legionella antigen. He received 5 day course of doxycycline and now is on azithromycin for another 10 days -10/26 Rrepeat blood, urine and sputum cultures sent and are negative till now - 10/27 Nayak catheter was replaced - 10/29 With increased respiratory secretions and worsening chest x-ray there is a concern of pneumonia. WBC slightly elevated and patient also has fever Will obtain procalcitonin level, CT chest and change antibiotics to vancomycin and meropenem 10/30 CT scan of the chest did not show any significant pneumonia. His procalcitonin level is only 0.5 Check lipase and lower extremity venous Dopplers (3) Encephalopathy: Qualifiers: Encephalopathy type: toxic metabolic Qualified Code(s): G92.8 - Other toxic encephalopathy Code(s): G93.40 - Encephalopathy, unspecified Status: Acute Assessment and Plan: Encephalopathy could be related to septic shock, critical care illness, residual sedation medications -check ammonia level -10/06: CT brain showed no intracranial findings -likely secondary to sedation Will and is gradually improving as sedation is wearing off patient today is following commands with all 4 extremities although appears quite weak (4) Pneumonia: Qualifiers: Laterality: unspecified laterality Lung location: lower lobe of lung Pneumonia type: due to unspecified organism Qualified Code(s): J18.9 - Pneumonia, unspecified organism Code(s): J18.9 - Pneumonia, unspecified organism Status: Acute Assessment and Plan: See above (5) Acute kidney injury: Code(s): N17.9 - Acute kidney failure, unspecified Status: Acute Assessment and Plan: Acute kidney injury, baseline creatinine and (1.00-1.30) . Creatinine on admission was stable -received adequate amount of IV fluids, -10/22: Worsening
[2023-10-31 09:32] LABS: Alveolar/Arterial O2 Gradient 69.1 mmHg; Base Excess ABG 7.2 mEq/l (+/-2.0); Device VENTILATOR; Fractional Inspired Oxygen 30 %; HCO3 ABG 32.4 mEq/l (22.0-26.0); Modified Allen's Test Pass; Oxygen Content ABG 16.9 %vol (16.0-22.0); Oxygen Saturation ABG 96.9 % (95.0-100.0); Oxyhemoglobin 95.4 % THb (90.0-100.0); PCO2 ABG 48.4 mmHg (35.0-45.0); PO2 ABG 87.9 mmHg (80.0-100.0); PO2 FiO2 Ratio Arterial Blood 2.93 %; Site Drawn RIGHT RADIAL; Total Hemoglobin 12.5 g/dL (12.0-18.0); pH ABG 7.444 (7.350-7.450)
[2023-10-31 09:33] LABS: Arterial Blood Gas PEEP 8 cmH2O; Arterial Blood Gas Vent Mode SPONTANEOUS; Peak Inspiratory Pressure 5 cmH2O
[2023-10-31] MEDS: VANCOMYCIN 1,500 MG/NS 500 ML 1,500 MG/500 ML BAG 250 MG IVPB (10:53)
--- NOTE | 2023-10-31 11:01 | PCFNICU ---
ICU Rounding Note: Pt current nutrition is Glucerna 1.2 at 65 ml/hr Last recorded weight is 112 kg, up from 10/28 110.9 kg. Bowel Motility: Last reported BM 10/25 Labs Reviewed:Glu 310, GFR 43, BUN 82, Cr 1.6 Meds Noted:Lantus, Miralax, Protonix, NovoLog, Heparin Skin: Deep Tissue Pressure Injury-right heel Additional Notes: Plans for patient to be extubated today. Tube feedings on hold. NGT has been placed for nutrition post extubation. Discussions in ICU rounds regarding blood sugar levels. Automat Watcher plans to decrease tube feeding rates to 30 ml/hr of Glucerna 1.2 and adjusting insulin dose. Flush will remain at 30 ml q 4 hours at this time. Following daily in ICU rounds. Monitor tube feeding orders, tolerance, labs, weights, stool patterns, plan of care Follow up Tuesday and Tuesday.
--- NOTE | 2023-10-31 11:29 | PCRCNOTE ---
Pt extubated at 1025, placed on 3 L NC. Will continue to monitor.
[2023-10-31 12:27] LABS: Glucose Point of Care 301 mg/dl (65-105)
[2023-10-31] MEDS: HEPARIN SOD/D5W 100 UNITS/ML 25,000 UNITS/250 ML BAG 13 UNITS IV CONT (12:28)
[2023-10-31 13:27] LABS: Partial Thromboplastin Time 89.7 Seconds (22.3-36.8)
[2023-10-31] MEDS: INSULIN ASPART (*BKC) 100 UNITS/ML 10 UNITS SUB-Q ×2 (17:33→20:15)
[2023-10-31 17:41] LABS: Glucose Point of Care 217 mg/dl (65-105)
[2023-10-31 19:23] LABS: Partial Thromboplastin Time 85.7 Seconds (22.3-36.8)
[2023-10-31 20:27] LABS: Glucose Point of Care 246 mg/dl (65-105)
[2023-11-01] VITALS (27 sets, daily range): BP systolic 115–152; BP diastolic 59–76; PULSE 63–94; RESP 17–25; TEMP 36.9–38.2; O2SAT 91–97; BMI 10.0
[2023-11-01] MEDS: ACETAMINOPHEN ELIXIR 325 MG/10.15 ML UDC 650 MG PO (00:55)
[2023-11-01] MEDS: INSULIN ASPART (*BKC) 100 UNITS/ML 10 UNITS SUB-Q ×5 (00:55→20:19)
[2023-11-01] MEDS: INSULIN ASPART (*BKC) 100 UNITS/ML SUB-Q ×5 (00:55→16:08)
[2023-11-01 00:58] LABS: Glucose Point of Care 262 mg/dl (65-105)
[2023-11-01] MEDS: IPRATROPIUM 0.5 MG/ALBUTEROL SULFATE 2.5 MG AMPUL.NEB 3 ML INHALATION ×4 (02:21→20:30)
[2023-11-01 05:14] LABS: Alveolar/Arterial O2 Gradient 55.1 mmHg; Base Excess ABG 10.4 mEq/l (+/-2.0); Carboxyhemoglobin 1.1 % THb (0-2.0); Fractional Inspired Oxygen 30 %; HCO3 ABG 36.2 mEq/l (22.0-26.0); Methemoglobin ABG 0.3 %THb (0-1.5); Oxygen Content ABG 16.2 %vol (16.0-22.0); Oxygen Saturation ABG 97.4 % (95.0-100.0); Oxyhemoglobin 96.2 % THb (90.0-100.0); PCO2 ABG 53.7 mmHg (35.0-45.0); PO2 ABG 95.7 mmHg (80.0-100.0); PO2 FiO2 Ratio Arterial Blood 3.19 %; Reduced Hemoglobin 2.4 %THb (0-5.0); Total Hemoglobin 11.9 g/dL (12.0-18.0); pH ABG 7.446 (7.350-7.450)
[2023-11-01 05:15] LABS: Device BIPAP; Expiratory Pressure 8 cmH2O; Inspiratory Pressure 14 cmH2O; Modified Allen's Test Pass; Site Drawn RIGHT RADIAL
[2023-11-01 05:29] LABS: Glucose Point of Care 217 mg/dl (65-105)
[2023-11-01] MEDS: CENTRAL LINE FLUSH 10 ML IV PUSH ×3 (05:31→20:21)
[2023-11-01 05:39] LABS: Hematocrit 37.5 % (42.0-52.0); Hemoglobin 10.9 g/dL (14.0-18.0); Mean Corpuscular HGB Conc 29.1 g/dl (32-36); Mean Corpuscular Hemoglobin 25.7 pg (26-34); Mean Corpuscular Volume 88.4 fl (80-100); Mean Platelet Volume 10.5 fl (7.4-10.4); Platelet Count Result 306 k/mm3 (150-375); Red Blood Count 4.24 M/mm3 (4.6-6.20); Red Cell Distribution Width 22.3 % (11.5-14.5); White Blood Count 12.7 K/mm3 (4.5-10.0)
[2023-11-01 05:52] LABS: Partial Thromboplastin Time 57.8 Seconds (22.3-36.8)
[2023-11-01 05:56] LABS: Alanine Aminotransferase 22 U/L (6-50); Albumin Level 3.7 g/dL (3.5-5.1); Alkaline Phosphatase 97 U/L (38-126); Anion Gap 6 mmol/L (4-12); Aspartate Amino Transferase 48 U/L (17-59); Bilirubin,Total 0.9 mg/dL (0.2-1.3); Blood Urea Nitrogen 84 mg/dL (9-20); Calcium 10.1 mg/dL (8.4-10.2); Carbon Dioxide 37 mmol/L (22-30); Chloride 104 mmol/L (98-107); Estimated CRCL calculation 55 ml/min; Estimated Glomerular Filt Rate 54; Glucose 251 mg/dL (65-110); Magnesium 2.2 mg/dL (1.6-2.3); Potassium 4.1 mmol/L (3.4-5.0); Sodium 147 mmol/L (137-145)
[2023-11-01] MEDS: HEPARIN SOD/D5W 100 UNITS/ML 25,000 UNITS/250 ML BAG 15 UNITS IV CONT (05:57)
[2023-11-01] MEDS: HEPARIN SODIUM 5,000 UNITS/ML VIAL 3500 UNITS IV PUSH (05:57)
[2023-11-01 08:25] LABS: Arterial Blood Gas Ventilator rate 16 /MIN
[2023-11-01 08:26] LABS: Arterial Blood Gas PEEP 8 cmH2O; Arterial Blood Gas Tidal Volume 450 ml; Arterial Blood Gas Vent Mode CMV
--- NOTE | 2023-11-01 08:58 | WPDINTPN ---
Progress Note: A&P Assessment and Plan (1) Acute respiratory failure with hypoxia and hypercapnia: Code(s): J96.01 - Acute respiratory failure with hypoxia; J96.02 - Acute respiratory failure with hypercapnia Status: Acute Assessment and Plan: 10/20: Pt presented with AMS, cough, and flu like symptoms. Respiratory failure is multifactorial acute respiratory failure secondary to pulmonary edema, pneumonia -10/20: intubated 10/25: CT chest/abdomen/pelvis without contrast 1. Small pleural effusions. 2. Small volume of ascites. 3. Large volume of stool in the colon with distention of the descending and transverse colon, consistent with adynamic ileus. -10/26 and 10/27: Tried patient on pressure support ventilation low respiratory rate and tidal volumes leading to ventilator going into apnea mode. Continue to hold sedation sedation and CMV mode at this time - 10/28 patient placed on PSV 07/12 continue as tolerated ABG shows hypercarbia and respiratory acidosis. - 10/29 will try PSV again today but I do not think patient is ready for extubation as patient is quite weak with very weak cough and has increased respiratory secretions and he will need nippv post extubation hence at this time will continue with mechanical ventilation. Advanced ET tube 2 cm 10/30 patient extubated after a successful weaning trial. Continue BiPAP p.r.n. and at night patient is a CO2 retainer and has obesity by to ventilation syndrome along with pulmonary edema and pneumonia. Will wean to nasal cannula this morning Continue diuretics (2) Septic shock: Code(s): A41.9 - Sepsis, unspecified organism; R65.21 - Severe sepsis with septic shock Status: Acute Assessment and Plan: Septic shock secondary to Pseudomonas pneumonia and cellulitis of right lower extremity -adequately fluid-resuscitated, received additional IV fluids in light of worsening renal function and 25% albumin 10/22 -continue Levophed, maintain MAP > 65 mmHg -10/23: will discontinue vancomycin as MRSA screen is negative. He did complete 5 day course of doxycycline -10/21: sputum culture growing Pseudomonas pneumonia. Continue cefepime to 2 g q.12 hours. Patient also has positive urine Legionella antigen. He received 5 day course of doxycycline and now is on azithromycin for another 10 days -10/26 Rrepeat blood, urine and sputum cultures sent and are negative till now - 10/27 Nayak catheter was replaced - 10/29 With increased respiratory secretions and worsening chest x-ray there is a concern of pneumonia. WBC slightly elevated and patient also has fever Will obtain procalcitonin level, CT chest and change antibiotics to vancomycin and meropenem 10/30 CT scan of the chest did not show any significant pneumonia. His procalcitonin level is only 0.5 Lipase 715 and lower extremity venous Dopplers were negative for DVT Repeat sputum culture growing Pseudomonas which is pansensitive. Will discontinue vancomycin. Continue meropenem (3) Encephalopathy: Qualifiers: Encephalopathy type: toxic metabolic Qualified Code(s): G92.8 - Other toxic encephalopathy Code(s): G93.40 - Encephalopathy, unspecified Status: Acute Assessment and Plan: Encephalopathy could be related to septic shock, critical care illness, residual sedation medications -check ammonia level -10/06: CT brain showed no intracranial findings -likely secondary to sedation Will and is gradually improving as sedation is wearing off patient today is following commands with all 4 extremities although appears quite weak -improving (4) Pneumonia: Qualifiers: Laterality: unspecified laterality Lung location: lower lobe of lung Pneumonia type: due to unspecified organism Qualified Code(s): J18.9 - Pneumonia, unspecified organism Code(s): J18.9 - Pneumonia, unspecified organism Status: Acute Assessment and Plan: See above (5) Acute kidney injury: Code(s): N17.9 - Acute k
[2023-11-01] MEDS: PANTOPRAZOLE SODIUM IV 40 MG VIAL IV PUSH (09:22)
[2023-11-01] MEDS: AZITHROMYCIN 250 MG TABLET 500 MG PO (09:22)
[2023-11-01] MEDS: polyethylene glycoL 3350 17 GM POWD.PACK PO (09:22)
[2023-11-01] MEDS: ROSUVASTATIN 10 MG TABLET PO (09:22)
[2023-11-01] MEDS: INSULIN GLARGINE (*BKC) 100 UNITS/ML SUB-Q (09:23)
[2023-11-01 09:24] LABS: Glucose Point of Care 209 mg/dl (65-105)
[2023-11-01] MEDS: TOLNAFTATE 1% POWDER 45 GM BTL 1 APPLIC TOPICAL ×2 (09:29→20:21)
[2023-11-01] MEDS: MEROPENEM 1 GM/NS 100 ML 1 GM/100 ML BAG IVPB ×2 (09:44→20:20)
--- NOTE | 2023-11-01 11:37 | PCSTNOTE ---
Please refer to the Bedside Swallow Evaluation in the EMR. Please note, silent aspiration cannot be ruled out at bedside.
[2023-11-01 11:53] LABS: Vancomycin Trough 13.9 ug/mL (10.0-20.0)
--- NOTE | 2023-11-01 11:59 | PCNFU ---
Nutrition Follow-Up Complete: Inadequate energy intake related to sepsis, PNA as evidenced by mechanical ventilation, need for full tube feeding, possible ileus Goal: Meet estimated nutrition needs Patient will continue current goal. Pt current nutrition is Glucerna 1.2 at 30 ml/hr. Last recorded weight is 110.4 kg, down from 113.3 kg on 10/31 Bowel Motility:+BM reported 10/25-Miralax given today. Labs Reviewed:Glu 251, GFR 54, BUN 84, Hct 37.5,Hgb 10.9 Meds Noted:Lantus, Protonix, Miralax, NovoLog,Crestor Skin: Deep Tissue Injury-right heel Additional Notes: Patient remains on NGT feedings of Glucerna 1.2 at 30ml/hr due to elevated blood sugar levels. Current nutrition: 792 kcals/40 gm protein/805 ml water. Flush 30 ml q 4 hours. Discussed plan of care for nutrition with Stretch Press Operator. At this time plans for Bedside Swallow today which speech is recommending MBS. NGT feedings for now until further testing for swallowing. If patient does not pass MBS would recommend to increased tube feedings to goal rate of 60 ml/hr. Monitor tube feeding orders, tolerance, labs, weights, stool patterns, plan of care Follow up Tuesday and Tuesday. Daily in ICU rounds
[2023-11-01 12:17] LABS: Glucose Point of Care 258 mg/dl (65-105)
[2023-11-01 12:37] LABS: Partial Thromboplastin Time 120.6 Seconds (22.3-36.8)
[2023-11-01 16:27] LABS: Glucose Point of Care 204 mg/dl (65-105)
[2023-11-01 19:10] LABS: Partial Thromboplastin Time 97.1 Seconds (22.3-36.8)
[2023-11-01 20:42] LABS: Glucose Point of Care 191 mg/dl (65-105)
[2023-11-02] VITALS (23 sets, daily range): BP systolic 110–148; BP diastolic 56–71; PULSE 70–87; RESP 16–23; TEMP 37.1–37.4; O2SAT 89–97; BMI 10.0
[2023-11-02] MEDS: HEPARIN SOD/D5W 100 UNITS/ML 25,000 UNITS/250 ML BAG 13 UNITS IV CONT ×2 (00:21→20:00)
[2023-11-02] MEDS: INSULIN ASPART (*BKC) 100 UNITS/ML 10 UNITS SUB-Q ×4 (00:32→12:00)
[2023-11-02] MEDS: INSULIN ASPART (*BKC) 100 UNITS/ML SUB-Q ×2 (00:33→12:00)
[2023-11-02 00:40] LABS: Glucose Point of Care 204 mg/dl (65-105)
[2023-11-02] MEDS: WATER, STERILE FOR INJECTION 10 ML VIAL XX (02:03)
[2023-11-02] MEDS: ALTEPLASE 2 MG VIAL (CATHFLO) IV PUSH ×2 (02:05→02:06)
[2023-11-02] MEDS: IPRATROPIUM 0.5 MG/ALBUTEROL SULFATE 2.5 MG AMPUL.NEB 3 ML INHALATION ×4 (02:39→20:56)
[2023-11-02 04:57] LABS: Alveolar/Arterial O2 Gradient 71.7 mmHg; Base Excess ABG 11.5 mEq/l (+/-2.0); Carboxyhemoglobin 0.9 % THb (0-2.0); Fractional Inspired Oxygen 30 %; HCO3 ABG 37.1 mEq/l (22.0-26.0); Methemoglobin ABG 0.3 %THb (0-1.5); Oxygen Content ABG 15.3 %vol (16.0-22.0); Oxygen Saturation ABG 96.1 % (95.0-100.0); Oxyhemoglobin 94.7 % THb (90.0-100.0); PCO2 ABG 53.3 mmHg (35.0-45.0); PO2 ABG 79.6 mmHg (80.0-100.0); PO2 FiO2 Ratio Arterial Blood 2.65 %; Reduced Hemoglobin 4.1 %THb (0-5.0); Total Hemoglobin 11.4 g/dL (12.0-18.0)
[2023-11-02 04:58] LABS: Device NON-INVASIVE VENT; Modified Allen's Test Pass; Site Drawn RIGHT RADIAL
[2023-11-02 04:59] LABS: Non-Invasive Expiratory Pressure 8 CMH2O; Non-Invasive Inspiratory Pressure 14 CMH2O; Non-Invasive Vent Rate 12 /MIN
[2023-11-02] MEDS: CENTRAL LINE FLUSH 10 ML IV PUSH ×2 (05:01→21:23)
[2023-11-02 05:07] LABS: Glucose Point of Care 193 mg/dl (65-105)
[2023-11-02 06:45] LABS: Hematocrit 36.7 % (42.0-52.0); Hemoglobin 10.4 g/dL (14.0-18.0); Mean Corpuscular HGB Conc 28.3 g/dl (32-36); Mean Corpuscular Hemoglobin 25.7 pg (26-34); Mean Corpuscular Volume 90.6 fl (80-100); Mean Platelet Volume 10.3 fl (7.4-10.4); Platelet Count Result 311 k/mm3 (150-375); Red Blood Count 4.05 M/mm3 (4.6-6.20)
[2023-11-02 06:52] LABS: Alanine Aminotransferase 20 U/L (6-50); Albumin Level 3.6 g/dL (3.5-5.1); Alkaline Phosphatase 98 U/L (38-126); Aspartate Amino Transferase 44 U/L (17-59); Bilirubin,Total 0.8 mg/dL (0.2-1.3); Blood Urea Nitrogen 66 mg/dL (9-20); Calcium 10.5 mg/dL (8.4-10.2); Carbon Dioxide > 40 mmol/L (22-30); Chloride 108 mmol/L (98-107); Estimated CRCL calculation 70 ml/min; Estimated Glomerular Filt Rate > 60; Glucose 185 mg/dL (65-110); Magnesium 2.2 mg/dL (1.6-2.3); Potassium 3.9 mmol/L (3.4-5.0); Sodium 153 mmol/L (137-145)
[2023-11-02 07:01] LABS: Partial Thromboplastin Time 66.6 Seconds (22.3-36.8)
[2023-11-02] MEDS: HEPARIN SODIUM 5,000 UNITS/ML VIAL 3500 UNITS IV PUSH (07:04)
[2023-11-02 08:12] LABS: Glucose Point of Care 171 mg/dl (65-105)
[2023-11-02] MEDS: polyethylene glycoL 3350 17 GM POWD.PACK PO (08:55)
[2023-11-02] MEDS: ROSUVASTATIN 10 MG TABLET PO (08:55)
[2023-11-02] MEDS: AZITHROMYCIN 250 MG TABLET 500 MG PO (08:55)
[2023-11-02] MEDS: BISACODYL 10 MG SUPPOSITORY RECTAL (08:55)
[2023-11-02] MEDS: PANTOPRAZOLE SODIUM IV 40 MG VIAL IV PUSH (08:55)
[2023-11-02] MEDS: INSULIN GLARGINE (*BKC) 100 UNITS/ML SUB-Q (08:56)
[2023-11-02] MEDS: TOLNAFTATE 1% POWDER 45 GM BTL 1 APPLIC TOPICAL ×2 (08:59→21:23)
[2023-11-02] MEDS: MEROPENEM 1 GM/NS 100 ML 1 GM/100 ML BAG IVPB ×2 (09:05→16:32)
--- NOTE | 2023-11-02 09:06 | P.PNINT_ITS ---
Progress Note: A&P Assessment and Plan (1) Acute respiratory failure with hypoxia and hypercapnia: Code(s): J96.01 - Acute respiratory failure with hypoxia; J96.02 - Acute respiratory failure with hypercapnia Status: Acute Assessment and Plan: 10/20: Pt presented with AMS, cough, and flu like symptoms. Respiratory failure is multifactorial acute respiratory failure secondary to pulmonary edema, pneumonia -10/20: intubated 10/25: CT chest/abdomen/pelvis without contrast 1. Small pleural effusions. 2. Small volume of ascites. 3. Large volume of stool in the colon with distention of the descending and transverse colon, consistent with adynamic ileus. -10/26 and 10/27: Tried patient on pressure support ventilation low respiratory rate and tidal volumes leading to ventilator going into apnea mode. Continue to hold sedation sedation and CMV mode at this time - 10/28 patient placed on PSV 07/12 continue as tolerated ABG shows hypercarbia and respiratory acidosis. - 10/29 will try PSV again today but I do not think patient is ready for extubation as patient is quite weak with very weak cough and has increased respiratory secretions and he will need nippv post extubation hence at this time will continue with mechanical ventilation. Advanced ET tube 2 cm 10/30 patient extubated after a successful weaning trial. Continue BiPAP p.r.n. and at night patient is a CO2 retainer and has obesity by to ventilation syndrome along with pulmonary edema and pneumonia. Will wean to nasal cannula this morning Continue diuretics (2) Septic shock: Code(s): A41.9 - Sepsis, unspecified organism; R65.21 - Severe sepsis with septic shock Status: Acute Assessment and Plan: Septic shock secondary to Pseudomonas pneumonia and cellulitis of right lower extremity -adequately fluid-resuscitated, received additional IV fluids in light of worsening renal function and 25% albumin 10/22 -continue Levophed, maintain MAP > 65 mmHg -10/23: will discontinue vancomycin as MRSA screen is negative. He did complete 5 day course of doxycycline -10/21: sputum culture growing Pseudomonas pneumonia. Continue cefepime to 2 g q.12 hours. Patient also has positive urine Legionella antigen. He received 5 day course of doxycycline and now is on azithromycin for another 10 days -10/26 Rrepeat blood, urine and sputum cultures sent and are negative till now - 10/27 Nayak catheter was replaced - 10/29 With increased respiratory secretions and worsening chest x-ray there is a concern of pneumonia. WBC slightly elevated and patient also has fever Will obtain procalcitonin level, CT chest and change antibiotics to vancomycin and meropenem 10/30 CT scan of the chest did not show any significant pneumonia. His procalcitonin level is only 0.5 Lipase 715 and lower extremity venous Dopplers were negative for DVT Repeat sputum culture growing Pseudomonas which is pansensitive. off vancomycin. Continue meropenem (3) Encephalopathy: Qualifiers: Encephalopathy type: toxic metabolic Qualified Code(s): G92.8 - Other toxic encephalopathy Code(s): G93.40 - Encephalopathy, unspecified Status: Acute Assessment and Plan: Encephalopathy could be related to septic shock, critical care illness, residual sedation medications -check ammonia level -10/06: CT brain showed no intracranial findings -likely secondary to sedation Will and is gradually improving as sedation is wearing off patient today is following commands with all 4 extremities although appears quite weak -improving (4) Pneumonia: Qualifiers: Laterality: unspecified laterality Lung location: lower
[2023-11-02 11:49] LABS: Glucose Point of Care 214 mg/dl (65-105)
--- NOTE | 2023-11-02 13:42 | PCFNICU ---
ICU Rounding Note: Pt current nutrition is Glucerna 1.2 a 30 ml/hr. Nutrition recommendation: goal rate 65 ml/hr. Last recorded weight is 109.8 kg,down from 110.4 kg. Bowel Motility: No BM reported-suppository given. Labs Reviewed: Glu 185, Na 153, BUN 66 Meds Noted:Protonix, Miralax, NovoLog, Lantus, Heparin. Skin: Deep Tissue Injury-right heel Additional Notes: Tube feeding paused. Patient to have swallow eval today. Spoke with nursing this afternoon, patient failed MBS. Recommending tube feedings be advanced to 65 ml/hr of Glucerna 1.2. Tube feedings at goal rate providing 1716 kcal/86 gm protein/1151 ml water. Flush increased to 120 ml q 4 hours 2/2 to Na 153 today. Protein Modular of Flex BID continues for wound healing providing an additional 120 kcal/14 gm arginine/14 gm glutamine/5 gm protein. Agree with diet orders. Following daily in ICU rounds. Monitor tube feeding orders, tolerance, labs, weights, stool patterns, plan of care Follow up Tuesday and Tuesday.
--- NOTE | 2023-11-02 13:56 | PCSTNOTE ---
Please refer to the Modified Barium Swallow Evaluation in the EMR.
[2023-11-02 14:33] LABS: Partial Thromboplastin Time 120.2 Seconds (22.3-36.8)
[2023-11-02] MEDS: INSULIN ASPART (*BKC) 100 UNITS/ML 15 UNITS SUB-Q ×2 (16:13→21:22)
[2023-11-02 16:22] LABS: Glucose Point of Care 190 mg/dl (65-105)
[2023-11-02] MEDS: WARFARIN (*PBKC) 2 MG TABLET 4 MG PO (16:32)
--- NOTE | 2023-11-02 18:51 | PM.IMPN ---
Progress Note: A&P Assessment and Plan (1) Acute respiratory failure with hypoxia and hypercapnia: Code(s): J96.01 - Acute respiratory failure with hypoxia; J96.02 - Acute respiratory failure with hypercapnia Status: Acute Assessment and Plan: Patient presented with AMS, cough, and flu like symptoms. CT Ch/A/P showing bilateral ground glass and interstital opacities at dependent and lower lung zones. He developed respiratory failure felt to be multifactorial pulmonary edema, pneumonia requiring intubation 10/20. Vent management per metal door assembler. Patient weaned down and ultimately able to be extubated 10/31/23 Patient is a CO2 retainer and has obesity hypoventilation syndrome along with pulmonary edema and pneumonia. Continue BiPAP p.r.n. and at night. Wean O2 as able Continue bronchodilators (2) Septic shock: Code(s): A41.9 - Sepsis, unspecified organism; R65.21 - Severe sepsis with septic shock Status: Acute Assessment and Plan: Septic shock secondary to Pseudomonas pneumonia and cellulitis of right lower extremity Patient was adequately fluid-resuscitated, received additional IV fluids in light of worsening renal function and 25% albumin 10/22 Started on Levophed to maintain MAP > 65 mmHg MRSA screen was negative so vancomycin discontinued. He completed 5 day course of doxycycline -10/21: sputum culture growing Pseudomonas pneumonia. Patient also has positive urine Legionella antigen. He received 5 day course of doxycycline and now is on azithromycin for another 10 days - 10/26 Repeat blood and urine remain negative - 10/27 Nayak catheter was replaced - 10/29 With increased respiratory secretions and worsening chest x-ray there is a concern of pneumonia. WBC slightly elevated and patient also has fever Antibiotics changed to vancomycin and meropenem 10/30 CT scan of the chest did not show any significant pneumonia. His procalcitonin level is only 0.5 Lipase 715 and lower extremity venous Dopplers were negative for DVT Repeat sputum culture (10/27) growing Pseudomonas which is pansensitive. off vancomycin. Continue meropenem (3) Encephalopathy: Qualifiers: Encephalopathy type: toxic metabolic Qualified Code(s): G92.8 - Other toxic encephalopathy Code(s): G93.40 - Encephalopathy, unspecified Status: Acute Assessment and Plan: Encephalopathy could be related to septic shock, critical care illness, residual sedation medications Ammonia level <9. CT brain showed no intracranial findings -likely secondary to sedation -improving (4) Pneumonia: Qualifiers: Laterality: unspecified laterality Lung location: lower lobe of lung Pneumonia type: due to unspecified organism Qualified Code(s): J18.9 - Pneumonia, unspecified organism Code(s): J18.9 - Pneumonia, unspecified organism Status: Acute Assessment and Plan: See above (5) Acute kidney injury: Code(s): N17.9 - Acute kidney failure, unspecified Status: Acute Assessment and Plan: Acute kidney injury, baseline creatinine and (1.00-1.30) . Creatinine on admission was stable -received adequate amount of IV fluids, -10/22: Worsening renal function, Patient was given IV fluids and albumin, -obtain urine lytes, urine eosinophils, CK level -10/24/2023: Renal ultrasound showed normal kidneys and no hydronephrosis -appreciate Nephrology evaluation and recommendation -10/23: Patient has been 10 L positive since admission, did respond to diuretics with the caveat that he has better urine output when mean arterial pressures are > 70 mmHg. -10/24: Repeat Bumex after discussing with Nephrology, along with albumin. Have asked the bedside RN to maintain mean arterial pressures > 70 mmHg. In continues to be at risk for dialysis 10/25: Patient responded well to Bumex on 10/25/2023 with significant urine output, improvement in creatinine in negative fluid balance. Will repeat Bumex
[2023-11-02 21:12] LABS: Glucose Point of Care 188 mg/dl (65-105)
[2023-11-02 22:06] LABS: Partial Thromboplastin Time 97.6 Seconds (22.3-36.8)
[2023-11-03] VITALS (21 sets, daily range): BP systolic 110–147; BP diastolic 58–95; PULSE 66–82; RESP 18–24; TEMP 36.9–37.5; O2SAT 93–98
[2023-11-03] MEDS: MEROPENEM 1 GM/NS 100 ML 1 GM/100 ML BAG IVPB ×3 (01:48→16:22)
[2023-11-03] MEDS: INSULIN ASPART (*BKC) 100 UNITS/ML 15 UNITS SUB-Q ×5 (01:49→20:50)
[2023-11-03 01:55] LABS: Glucose Point of Care 176 mg/dl (65-105)
[2023-11-03] MEDS: IPRATROPIUM 0.5 MG/ALBUTEROL SULFATE 2.5 MG AMPUL.NEB 3 ML INHALATION ×4 (02:31→20:37)
[2023-11-03 05:02] LABS: Glucose Point of Care 183 mg/dl (65-105)
[2023-11-03] MEDS: CENTRAL LINE FLUSH 10 ML IV PUSH ×3 (05:02→20:50)
[2023-11-03 05:08] LABS: Hematocrit 37.4 % (42.0-52.0); Hemoglobin 10.7 g/dL (14.0-18.0); Mean Corpuscular HGB Conc 28.6 g/dl (32-36); Mean Corpuscular Hemoglobin 26.4 pg (26-34); Mean Corpuscular Volume 92.1 fl (80-100); Mean Platelet Volume 10.8 fl (7.4-10.4); Platelet Count Result 317 k/mm3 (150-375); Red Blood Count 4.06 M/mm3 (4.6-6.20); Red Cell Distribution Width 22.1 % (11.5-14.5)
[2023-11-03 05:19] LABS: INR 1.2; Prothrombin Time 15.6 Seconds (11.1-14.7)
[2023-11-03 05:20] LABS: Partial Thromboplastin Time 59.6 Seconds (22.3-36.8)
[2023-11-03 05:26] LABS: Alanine Aminotransferase 19 U/L (6-50); Albumin Level 3.5 g/dL (3.5-5.1); Alkaline Phosphatase 105 U/L (38-126); Aspartate Amino Transferase 43 U/L (17-59); Bilirubin,Total 0.8 mg/dL (0.2-1.3); Blood Urea Nitrogen 55 mg/dL (9-20); Calcium 10.5 mg/dL (8.4-10.2); Carbon Dioxide > 40 mmol/L (22-30); Chloride 112 mmol/L (98-107); Estimated CRCL calculation 77 ml/min; Estimated Glomerular Filt Rate > 60; Glucose 210 mg/dL (65-110); Lipase 747 U/L (23-300); Magnesium 2.2 mg/dL (1.6-2.3); Potassium 4.1 mmol/L (3.4-5.0); Sodium 154 mmol/L (137-145)
[2023-11-03] MEDS: HEPARIN SODIUM 5,000 UNITS/ML VIAL 3500 UNITS IV PUSH (07:12)
[2023-11-03 07:42] LABS: Glucose Point of Care 186 mg/dl (65-105)
[2023-11-03] MEDS: AZITHROMYCIN 250 MG TABLET 500 MG PO (07:48)
[2023-11-03] MEDS: PANTOPRAZOLE SODIUM IV 40 MG VIAL IV PUSH (07:49)
[2023-11-03] MEDS: BISACODYL 10 MG SUPPOSITORY RECTAL (07:49)
[2023-11-03] MEDS: polyethylene glycoL 3350 17 GM POWD.PACK PO (07:49)
[2023-11-03] MEDS: ROSUVASTATIN 10 MG TABLET PO (07:56)
[2023-11-03] MEDS: INSULIN GLARGINE (*BKC) 100 UNITS/ML SUB-Q (07:56)
[2023-11-03] MEDS: TOLNAFTATE 1% POWDER 45 GM BTL 1 APPLIC TOPICAL ×2 (08:01→20:50)
[2023-11-03 11:47] LABS: Glucose Point of Care 147 mg/dl (65-105)
[2023-11-03] MEDS: HEPARIN SOD/D5W 100 UNITS/ML 25,000 UNITS/250 ML BAG 13 UNITS IV CONT (16:20)
[2023-11-03] MEDS: INSULIN ASPART (*BKC) 100 UNITS/ML SUB-Q (16:22)
[2023-11-03 16:32] LABS: Glucose Point of Care 217 mg/dl (65-105)
--- NOTE | 2023-11-03 17:31 | PM.IMPN ---
Progress Note: A&P Assessment and Plan (1) Acute respiratory failure with hypoxia and hypercapnia: Code(s): J96.01 - Acute respiratory failure with hypoxia; J96.02 - Acute respiratory failure with hypercapnia Status: Acute Assessment and Plan: Patient presented with AMS, cough, and flu like symptoms. CT Ch/A/P showing bilateral ground glass and interstitial opacities at dependent and lower lung zones. He developed respiratory failure felt to be multifactorial from pulmonary edema and pneumonia requiring intubation 10/20. Vent management was per clothing designer. Patient weaned down and ultimately able to be extubated 10/31/23 Patient is a CO2 retainer and has obesity hypoventilation syndrome along with pulmonary edema and pneumonia. Continue BiPAP p.r.n. and at night. Wean O2 as able Continue bronchodilators (2) Septic shock: Code(s): A41.9 - Sepsis, unspecified organism; R65.21 - Severe sepsis with septic shock Status: Acute Assessment and Plan: Septic shock secondary to Pseudomonas pneumonia and cellulitis of right lower extremity Patient was adequately fluid-resuscitated, received additional IV fluids in light of worsening renal function and 25% albumin 10/22 Started on Levophed to maintain MAP > 65 mmHg MRSA screen was negative so vancomycin discontinued. He completed 5 day course of doxycycline -10/21: sputum culture growing Pseudomonas pneumonia. Patient also has positive urine Legionella antigen. He received 5 day course of doxycycline and now is on azithromycin for another 10 days - 10/26 Repeat blood and urine remain negative - 10/27 Nayak catheter was replaced - 10/29 With increased respiratory secretions and worsening chest x-ray there is a concern of pneumonia. WBC slightly elevated and patient also has fever. Antibiotics changed to vancomycin and meropenem 10/30 CT scan of the chest did not show any significant pneumonia. His procalcitonin level is only 0.5 Lipase 715 and lower extremity venous Dopplers were negative for DVT Repeat sputum culture (10/27) growing Pseudomonas which is pansensitive. off vancomycin. Continue meropenem (3) Encephalopathy: Qualifiers: Encephalopathy type: toxic metabolic Qualified Code(s): G92.8 - Other toxic encephalopathy Code(s): G93.40 - Encephalopathy, unspecified Status: Acute Assessment and Plan: Encephalopathy could be related to septic shock, critical care illness, residual sedation medications Ammonia level <9. CT brain showed no intracranial findings Likely secondary to sedation but still confused. Continue to orient (4) Pneumonia: Qualifiers: Laterality: unspecified laterality Lung location: lower lobe of lung Pneumonia type: due to unspecified organism Qualified Code(s): J18.9 - Pneumonia, unspecified organism Code(s): J18.9 - Pneumonia, unspecified organism Status: Acute Assessment and Plan: See above (5) Acute kidney injury: Code(s): N17.9 - Acute kidney failure, unspecified Status: Acute Assessment and Plan: Acute kidney injury with baseline creatinine 1.0-1.3. Creatinine on admission was stable but began to worsen. Workup performed. Renal ultrasound showed normal kidneys and no hydronephrosis. Nephrology consulted and appreciate their recommendations. -10/23: Patient has been 10 L positive since admission, did respond to diuretics with the caveat that he has better urine output when mean arterial pressures are > 70 mmHg. -10/24: Repeat Bumex after discussing with Nephrology, along with albumin. Have asked the bedside RN to maintain mean arterial pressures > 70 mmHg. 10/25: Patient responded well to Bumex on 10/25/2023 with significant urine output, improvement in creatinine in negative fluid balance. Will repeat Bumex again today, discussed with Nephrology -10/26: Patient responded very well to diuresis with significant negative fluid balance. - 10/27
[2023-11-03] MEDS: EUCERIN CREAM 120 GM JAR 1 APPLIC TOPICAL (18:15)
[2023-11-03 19:00] LABS: Partial Thromboplastin Time 91.4 Seconds (22.3-36.8)
[2023-11-03 20:47] LABS: Glucose Point of Care 147 mg/dl (65-105)
[2023-11-04] VITALS (16 sets, daily range): BP systolic 120–134; BP diastolic 55–65; PULSE 66–82; RESP 14–24; TEMP 36.2–37.5; O2SAT 95–100
[2023-11-04] MEDS: MEROPENEM 1 GM/NS 100 ML 1 GM/100 ML BAG IVPB ×3 (00:27→17:33)
[2023-11-04 00:43] LABS: Glucose Point of Care 127 mg/dl (65-105)
[2023-11-04] MEDS: INSULIN ASPART (*BKC) 100 UNITS/ML 15 UNITS SUB-Q ×2 (00:46→04:48)
[2023-11-04 01:03] LABS: Partial Thromboplastin Time 88.4 Seconds (22.3-36.8)
[2023-11-04] MEDS: IPRATROPIUM 0.5 MG/ALBUTEROL SULFATE 2.5 MG AMPUL.NEB 3 ML INHALATION ×3 (02:07→13:21)
[2023-11-04 04:45] LABS: Glucose Point of Care 122 mg/dl (65-105)
[2023-11-04] MEDS: CENTRAL LINE FLUSH 10 ML IV PUSH ×2 (04:49→21:02)
[2023-11-04 06:01] LABS: Hematocrit 37.6 % (42.0-52.0); Hemoglobin 10.5 g/dL (14.0-18.0); Mean Corpuscular HGB Conc 27.9 g/dl (32-36); Mean Corpuscular Hemoglobin 25.9 pg (26-34); Mean Corpuscular Volume 92.8 fl (80-100); Mean Platelet Volume 10.3 fl (7.4-10.4); Platelet Count Result 315 k/mm3 (150-375); Red Blood Count 4.05 M/mm3 (4.6-6.20); White Blood Count 8.1 K/mm3 (4.5-10.0)
[2023-11-04 06:12] LABS: INR 1.2; Prothrombin Time 15.7 Seconds (11.1-14.7)
[2023-11-04 06:13] LABS: Partial Thromboplastin Time 75.3 Seconds (22.3-36.8)
[2023-11-04 06:17] LABS: Alanine Aminotransferase 20 U/L (6-50); Albumin Level 3.5 g/dL (3.5-5.1); Alkaline Phosphatase 100 U/L (38-126); Anion Gap 3 mmol/L (4-12); Aspartate Amino Transferase 47 U/L (17-59); Bilirubin,Total 0.7 mg/dL (0.2-1.3); Blood Urea Nitrogen 51 mg/dL (9-20); Calcium 10.4 mg/dL (8.4-10.2); Carbon Dioxide 36 mmol/L (22-30); Chloride 115 mmol/L (98-107); Estimated CRCL calculation 76 ml/min; Estimated Glomerular Filt Rate > 60; Glucose 134 mg/dL (65-110); Magnesium 2.2 mg/dL (1.6-2.3); Potassium 4.2 mmol/L (3.4-5.0); Sodium 154 mmol/L (137-145)
[2023-11-04 07:42] LABS: Glucose Point of Care 106 mg/dl (65-105)
[2023-11-04] MEDS: ROSUVASTATIN 10 MG TABLET PO (08:03)
[2023-11-04] MEDS: PANTOPRAZOLE SODIUM IV 40 MG VIAL IV PUSH (08:04)
[2023-11-04] MEDS: BISACODYL 10 MG SUPPOSITORY RECTAL (08:04)
[2023-11-04] MEDS: polyethylene glycoL 3350 17 GM POWD.PACK PO (08:04)
[2023-11-04] MEDS: AZITHROMYCIN 250 MG TABLET 500 MG PO (08:04)
[2023-11-04] MEDS: INSULIN GLARGINE (*BKC) 100 UNITS/ML SUB-Q (08:05)
[2023-11-04] MEDS: EUCERIN CREAM 120 GM JAR 1 APPLIC TOPICAL ×2 (08:06→17:34)
[2023-11-04] MEDS: DEXTROSE 5% IN WATER 500 ML 100 ML IV CONT (08:06)
[2023-11-04] MEDS: TOLNAFTATE 1% POWDER 45 GM BTL 1 APPLIC TOPICAL ×2 (08:07→21:02)
--- NOTE | 2023-11-04 08:40 | PCOTNOTE ---
Patient out of the room at this time. Patient went down to have a swallow study done.
--- NOTE | 2023-11-04 09:53 | PCSTNOTE ---
Please refer to the Modified Barium Swallow Evaluation in the EMR.
--- NOTE | 2023-11-04 11:26 | PCNFU ---
Nutrition Follow-Up Complete: Inadequate energy intake related to sepsis, PNA as evidenced by mechanical ventilation, need for full tube feeding, possible ileus Goal: Meet estimated nutrition needs Patient is progressing towards goal. We will continue current goal. Pt current nutrition is Glucerna 1.2 at 50 ml/hr. Nutrition recommendation: Goal rate 65 ml/hr, MD orders to increased today. Last recorded weight is 107.5 kg, down from 110.2 kg on 11/02. Bowel Motility: +BM reported 11/03 Labs Reviewed: Glu 134, BUN 51, Na 134, Hct 37.6, Hgb 10.5 Meds Noted:Lantus, NovoLog, Protonix, Miralax, Suppository. Skin: Deep Tissue Injury-right heel. Additional Notes: Failed MBS today. Patient remains on NGT feedings of Glucerna 1.2 at 50 ml/hr. MD orders to increase tube feeding rate to 65 ml/hr. Tube feedings at 65 ml/hr providing 1716 kcal/86 gm protein/1151 ml water. Protein Modular of Flex BID flush providing an additional 160 kcal/5 gm protein/14 gm arginine/14 gm glutamine. Total Nutrition: 1876 kcal/68 gm protein/ 1151 ml water. Meeting 100% kcal needs and 70% protein needs at this time. Plans for NGT feedings over the weekend with discussions regarding PEG placement. Flush increased today to 200 ml q 4 hours 2/2 to Na 154. Agree with diet orders. Monitor tube feeding orders, tolerance, labs, weights, stool patterns, plan of care Follow up Tuesday and Tuesday.
--- NOTE | 2023-11-04 11:31 | PC.NURSE ---
This patient, Diego Marquez ., was transferred to [facility] on 11/04/23 at 1102. Personal belongings sent with patient. Report given to Antonia. Appropriate documentation sent with patient.
--- NOTE | 2023-11-04 11:32 | PC.NURSE ---
This patient, Diego Marquez , was received from ICU on 11/04/23 at 1100. Patient/family oriented to unit policies and routines
[2023-11-04 12:00] LABS: Glucose Point of Care 131 mg/dl (65-105)
[2023-11-04] MEDS: HEPARIN SOD/D5W 100 UNITS/ML 25,000 UNITS/250 ML BAG 13 UNITS IV CONT (13:59)
--- NOTE | 2023-11-04 16:58 | PM.IMPN ---
Progress Note: A&P Assessment and Plan (1) Acute respiratory failure with hypoxia and hypercapnia: Code(s): J96.01 - Acute respiratory failure with hypoxia; J96.02 - Acute respiratory failure with hypercapnia Status: Acute Assessment and Plan: Patient presented with AMS, cough, and flu like symptoms. CT Ch/A/P showing bilateral ground glass and interstitial opacities at dependent and lower lung zones. He developed respiratory failure felt to be multifactorial from pulmonary edema and pneumonia requiring intubation 10/20. Vent management was per payloader operator. Patient weaned down and ultimately able to be extubated 10/31/23. Patient is a CO2 retainer and has obesity hypoventilation syndrome. Wean oxygen to keep SpO2 >93% Continue BiPAP p.r.n. and at night. Change bronchodilators to prn (2) Septic shock: Code(s): A41.9 - Sepsis, unspecified organism; R65.21 - Severe sepsis with septic shock Status: Acute Assessment and Plan: Patient with septic shock secondary to Pseudomonas pneumonia and cellulitis of right lower extremity. Patient was adequately fluid-resuscitated and received additional IV fluids in light of worsening renal function and albumin. He was started on Levophed. He was started on broad spectrum abx after appropriate cultures obtained. MRSA screen was negative so vancomycin discontinued. He completed 5 day course of doxycycline. BCx negative. Sputum culture growing Pseudomonas pneumonia. Patient also had a positive urine Legionella antigen. He received 5 day course of doxycycline and now is on azithromycin for another 10 days. Repeat blood culture negative. Urine culture negative. Nayak catheter was replaced. On 10/29, patient with increased respiratory secretions and worsening chest x-ray concerning for pneumonia. WBC slightly elevated and patient also has fever. Antibiotics changed to vancomycin and meropenem. CT chest (10/30) did not show any significant pneumonia. His procalcitonin level was only 0.5. Lipase 715 and lower extremity venous Dopplers were negative for DVT. Repeat sputum culture (10/27) growing Pseudomonas which is pansensitive. Vancomycin stopped and meropenem continued. Continue meropenem (3) Encephalopathy: Qualifiers: Encephalopathy type: toxic metabolic Qualified Code(s): G92.8 - Other toxic encephalopathy Code(s): G93.40 - Encephalopathy, unspecified Status: Acute Assessment and Plan: Encephalopathy could be related to septic shock, critical care illness, and/or residual sedation medications Ammonia level <9. CT brain showed no intracranial findings Patient still confused. Continue to orient (4) Pneumonia: Qualifiers: Laterality: unspecified laterality Lung location: lower lobe of lung Pneumonia type: due to unspecified organism Qualified Code(s): J18.9 - Pneumonia, unspecified organism Code(s): J18.9 - Pneumonia, unspecified organism Status: Acute Assessment and Plan: See above (5) Acute kidney injury: Code(s): N17.9 - Acute kidney failure, unspecified Status: Acute Assessment and Plan: Baseline creatinine 1.0-1.3. Creatinine ws normal on admission but worsen to 2.5. Renal ultrasound showed normal kidneys and no hydronephrosis. Nephrology consulted and appreciate their recommendations. Patient was fluid positive and did respond to diuretic therpy. Cr improved over the past few days and now normal. Follow (6) Cellulitis: Code(s): L03.90 - Cellulitis, unspecified Status: Acute Assessment and Plan: Continue antibiotics as above (7) Type 2 diabetes mellitus with hyperglycemia, with long-term current use of insulin: Code(s): E11.65 - Type 2 diabetes mellitus with hyperglycemia; Z79.4 - correction (current) use of insulin Status: Acute Assessment and Plan: Insulin was poorly controlled and ultimately required insulin infusion. He was m
[2023-11-04 17:14] LABS: Glucose Point of Care 172 mg/dl (65-105)
[2023-11-04] MEDS: INSULIN ASPART (*BKC) 100 UNITS/ML 10 UNITS SUB-Q (17:34)
[2023-11-05] VITALS (9 sets, daily range): BP systolic 130–146; BP diastolic 60–84; PULSE 70–84; RESP 16–27; TEMP 36.7–37.1; O2SAT 94–98
[2023-11-05 00:37] LABS: Glucose Point of Care 174 mg/dl (65-105)
[2023-11-05] MEDS: INSULIN ASPART (*BKC) 100 UNITS/ML 10 UNITS SUB-Q ×4 (01:26→19:13)
[2023-11-05] MEDS: MEROPENEM 1 GM/NS 100 ML 1 GM/100 ML BAG IVPB ×3 (01:26→18:31)
[2023-11-05 06:13] LABS: Hematocrit 36.5 % (42.0-52.0); Hemoglobin 10.5 g/dL (14.0-18.0); Mean Corpuscular HGB Conc 28.8 g/dl (32-36); Mean Corpuscular Hemoglobin 26.5 pg (26-34); Mean Corpuscular Volume 92.2 fl (80-100); Mean Platelet Volume 10.3 fl (7.4-10.4); Platelet Count Result 321 k/mm3 (150-375); Red Blood Count 3.96 M/mm3 (4.6-6.20); Red Cell Distribution Width 21.6 % (11.5-14.5); White Blood Count 8.2 K/mm3 (4.5-10.0)
[2023-11-05 06:25] LABS: Alanine Aminotransferase 20 U/L (6-50); Albumin Level 3.6 g/dL (3.5-5.1); Alkaline Phosphatase 106 U/L (38-126); Anion Gap 7 mmol/L (4-12); Aspartate Amino Transferase 41 U/L (17-59); Bilirubin,Total 0.8 mg/dL (0.2-1.3); Blood Urea Nitrogen 46 mg/dL (9-20); Calcium 10.7 mg/dL (8.4-10.2); Carbon Dioxide 32 mmol/L (22-30); Chloride 114 mmol/L (98-107); Estimated CRCL calculation 63 ml/min; Estimated Glomerular Filt Rate > 60; Glucose 190 mg/dL (65-110); Magnesium 2.3 mg/dL (1.6-2.3); Potassium 4.5 mmol/L (3.4-5.0); Sodium 153 mmol/L (137-145)
[2023-11-05 06:28] LABS: Partial Thromboplastin Time 71.4 Seconds (22.3-36.8)
[2023-11-05 06:29] LABS: Glucose Point of Care 180 mg/dl (65-105)
[2023-11-05] MEDS: CENTRAL LINE FLUSH 10 ML IV PUSH ×2 (06:32→14:28)
[2023-11-05] MEDS: HEPARIN SOD/D5W 100 UNITS/ML 25,000 UNITS/250 ML BAG 13 UNITS IV CONT (10:11)
[2023-11-05] MEDS: BISACODYL 10 MG SUPPOSITORY RECTAL (10:11)
[2023-11-05] MEDS: ROSUVASTATIN 10 MG TABLET FEED TUBE (10:11)
[2023-11-05] MEDS: PANTOPRAZOLE SODIUM IV 40 MG VIAL IV PUSH (10:11)
[2023-11-05] MEDS: AZITHROMYCIN 250 MG TABLET 500 MG FEED TUBE (10:11)
[2023-11-05] MEDS: polyethylene glycoL 3350 17 GM POWD.PACK FEED TUBE (10:11)
[2023-11-05] MEDS: INSULIN GLARGINE (*BKC) 100 UNITS/ML SUB-Q (10:12)
[2023-11-05 12:00] LABS: Glucose Point of Care 201 mg/dl (65-105)
[2023-11-05] MEDS: INSULIN ASPART (*BKC) 100 UNITS/ML SUB-Q ×2 (12:29→19:13)
--- NOTE | 2023-11-05 13:01 | PM.IMPN ---
Progress Note: A&P Assessment and Plan (1) Acute respiratory failure with hypoxia and hypercapnia: Code(s): J96.01 - Acute respiratory failure with hypoxia; J96.02 - Acute respiratory failure with hypercapnia Status: Acute Assessment and Plan: Patient presented with AMS, cough, and flu like symptoms. CT Ch/A/P showing bilateral ground glass and interstitial opacities at dependent and lower lung zones. He developed respiratory failure felt to be multifactorial from pulmonary edema and pneumonia requiring intubation 10/20. Vent management was per nurse practitioner physician assistant. Patient weaned down and ultimately able to be extubated 10/31/23. Patient is a CO2 retainer and has obesity hypoventilation syndrome. Wean oxygen to keep SpO2 >93% Continue BiPAP p.r.n. and at night. Bronchodilators available prn (2) Septic shock: Code(s): A41.9 - Sepsis, unspecified organism; R65.21 - Severe sepsis with septic shock Status: Acute Assessment and Plan: Patient with septic shock secondary to Pseudomonas pneumonia and cellulitis of right lower extremity. Patient was adequately fluid-resuscitated and received additional IV fluids in light of worsening renal function and albumin. He was started on Levophed. He was started on broad spectrum abx after appropriate cultures obtained. MRSA screen was negative so vancomycin discontinued. He completed 5 day course of doxycycline. BCx negative. Sputum culture growing Pseudomonas pneumonia. Patient also had a positive urine Legionella antigen. He received 5 day course of doxycycline and now is on azithromycin for another 10 days. Repeat blood culture negative. Urine culture negative. Nayak catheter was replaced. On 10/29, patient with increased respiratory secretions and worsening chest x-ray concerning for pneumonia. WBC slightly elevated and patient also has fever. Antibiotics changed to vancomycin and meropenem. CT chest (10/30) did not show any significant pneumonia. His procalcitonin level was only 0.5. Lipase 715 and lower extremity venous Dopplers were negative for DVT. Repeat sputum culture (10/27) growing Pseudomonas which is pansensitive. Vancomycin stopped and meropenem continued. Continue meropenem (3) Encephalopathy: Qualifiers: Encephalopathy type: toxic metabolic Qualified Code(s): G92.8 - Other toxic encephalopathy Code(s): G93.40 - Encephalopathy, unspecified Status: Acute Assessment and Plan: Encephalopathy could be related to septic shock, critical care illness, and/or residual sedation medications Ammonia level <9. CT brain showed no intracranial findings Patient still confused. Related to being off of his diazepam? Will continue to hold diazepam for now since admission on 10/20 (and off sedation since extubation 10/30) Continue to orient (4) Pneumonia: Qualifiers: Laterality: unspecified laterality Lung location: lower lobe of lung Pneumonia type: due to unspecified organism Qualified Code(s): J18.9 - Pneumonia, unspecified organism Code(s): J18.9 - Pneumonia, unspecified organism Status: Acute Assessment and Plan: See above (5) Acute kidney injury: Code(s): N17.9 - Acute kidney failure, unspecified Status: Acute Assessment and Plan: Baseline creatinine 1.0-1.3. Creatinine was normal on admission but worsen to 2.5. Renal ultrasound showed normal kidneys and no hydronephrosis. Nephrology consulted and appreciate their recommendations. Patient was fluid positive and did respond to diuretic therpy. Cr improved over the past few days and now normal. Follow (6) Cellulitis: Code(s): L03.90 - Cellulitis, unspecified Status: Acute Assessment and Plan: Continue antibiotics as above (7) Type 2 diabetes mellitus with hyperglycemia, with long-term current use of insulin: Code(s): E11.65 - Type 2 diabetes mellitus with hyperglycemia; Z79.4 - intermediate project manager (current) use o
[2023-11-05] MEDS: EUCERIN CREAM 120 GM JAR 1 APPLIC TOPICAL ×2 (14:10→18:30)
[2023-11-05] MEDS: TOLNAFTATE 1% POWDER 45 GM BTL 1 APPLIC TOPICAL ×2 (18:30→20:58)
[2023-11-05 18:31] LABS: Glucose Point of Care 218 mg/dl (65-105)
[2023-11-06] VITALS (8 sets, daily range): BP systolic 120–131; BP diastolic 57–79; PULSE 75–87; RESP 14–27; TEMP 36.5–37.3; O2SAT 95–99; BMI 11.0
[2023-11-06] MEDS: INSULIN ASPART (*BKC) 100 UNITS/ML 10 UNITS SUB-Q ×3 (00:40→12:45)
[2023-11-06] MEDS: INSULIN ASPART (*BKC) 100 UNITS/ML SUB-Q ×3 (00:41→12:25)
[2023-11-06 00:44] LABS: Glucose Point of Care 237 mg/dl (65-105)
[2023-11-06] MEDS: MEROPENEM 1 GM/NS 100 ML 1 GM/100 ML BAG IVPB ×3 (00:44→20:35)
--- NOTE | 2023-11-06 01:27 | PCRCNOTE ---
RT tried several times to place patient on NIV, but the patient removed the mask immediately each time.
[2023-11-06 05:39] LABS: Glucose Point of Care 225 mg/dl (65-105)
[2023-11-06] MEDS: HEPARIN SOD/D5W 100 UNITS/ML 25,000 UNITS/250 ML BAG 13 UNITS IV CONT (05:42)
[2023-11-06 06:08] LABS: Alveolar/Arterial O2 Gradient 87.5 mmHg; Base Excess ABG 4.8 mEq/l (+/-2.0); Fractional Inspired Oxygen 28 %; HCO3 ABG 29.4 mEq/l (22.0-26.0); Oxygen Content ABG 16.7 %vol (16.0-22.0); Oxygen Saturation ABG 92.5 % (95.0-100.0); Oxyhemoglobin 89.5 % THb (90.0-100.0); PCO2 ABG 43.1 mmHg (35.0-45.0); PO2 ABG 61.3 mmHg (80.0-100.0); PO2 FiO2 Ratio Arterial Blood 2.19 %; Total Hemoglobin 13.3 g/dL (12.0-18.0); pH ABG 7.451 (7.350-7.450)
[2023-11-06 06:25] LABS: Device NASAL CANNULA; Modified Allen's Test Pass; Site Drawn RIGHT RADIAL
[2023-11-06 06:35] LABS: Hematocrit 35.8 % (42.0-52.0); Hemoglobin 10.6 g/dL (14.0-18.0); Mean Corpuscular HGB Conc 29.6 g/dl (32-36); Mean Corpuscular Volume 91.3 fl (80-100); Mean Platelet Volume 10.4 fl (7.4-10.4); Platelet Count Result 316 k/mm3 (150-375); Red Blood Count 3.92 M/mm3 (4.6-6.20); Red Cell Distribution Width 21.5 % (11.5-14.5); White Blood Count 9.3 K/mm3 (4.5-10.0)
[2023-11-06 06:46] LABS: Partial Thromboplastin Time 78.7 Seconds (22.3-36.8)
[2023-11-06 06:50] LABS: Alanine Aminotransferase 21 U/L (6-50); Albumin Level 3.6 g/dL (3.5-5.1); Alkaline Phosphatase 107 U/L (38-126); Anion Gap 6 mmol/L (4-12); Aspartate Amino Transferase 56 U/L (17-59); Bilirubin,Total 0.8 mg/dL (0.2-1.3); Blood Urea Nitrogen 43 mg/dL (9-20); Calcium 10.3 mg/dL (8.4-10.2); Carbon Dioxide 28 mmol/L (22-30); Chloride 115 mmol/L (98-107); Estimated CRCL calculation 69 ml/min; Estimated Glomerular Filt Rate > 60; Glucose 234 mg/dL (65-110); Magnesium 2.3 mg/dL (1.6-2.3); Potassium 4.6 mmol/L (3.4-5.0); Sodium 149 mmol/L (137-145)
[2023-11-06] MEDS: ROSUVASTATIN 10 MG TABLET FEED TUBE (09:36)
[2023-11-06] MEDS: polyethylene glycoL 3350 17 GM POWD.PACK FEED TUBE (09:36)
[2023-11-06] MEDS: BISACODYL 10 MG SUPPOSITORY RECTAL (09:36)
[2023-11-06] MEDS: AZITHROMYCIN 250 MG TABLET 500 MG FEED TUBE (09:36)
[2023-11-06] MEDS: PANTOPRAZOLE SODIUM IV 40 MG VIAL IV PUSH (09:36)
[2023-11-06] MEDS: EUCERIN CREAM 120 GM JAR 1 APPLIC TOPICAL ×2 (09:37→18:24)
--- NOTE | 2023-11-06 10:02 | WPDGICN ---
Assessment and Plan Assessment and plan (1) Dysphagia: Code(s): R13.10 - Dysphagia, unspecified Status: Inactive Assessment and Plan: failed swallow study and risk of aspiration probably peg placement Tuesday, heparin gtt that day will be on hold 3-4 hours prior procedure (2) Atrial fibrillation: Onset Date: 04/20/17 Code(s): I48.91 - Unspecified atrial fibrillation Status: Chronic (3) Pneumonia: Qualifiers: Laterality: unspecified laterality Lung location: lower lobe of lung Pneumonia type: due to unspecified organism Qualified Code(s): J18.9 - Pneumonia, unspecified organism Code(s): J18.9 - Pneumonia, unspecified organism Status: Acute Assessment and Plan: treated (4) Respiratory failure with hypoxia and hypercapnia: Qualifiers: Chronicity: acute Qualified Code(s): J96.01 - Acute respiratory failure with hypoxia; J96.02 - Acute respiratory failure with hypercapnia Code(s): J96.91 - Respiratory failure, unspecified with hypoxia; J96.92 - Respiratory failure, unspecified with hypercapnia Status: Acute Assessment and Plan: bipap he was intubated (5) Encephalopathy: Qualifiers: Encephalopathy type: toxic metabolic Qualified Code(s): G92.8 - Other toxic encephalopathy Code(s): G93.40 - Encephalopathy, unspecified Status: Acute Assessment and Plan: still confused (6) Type 2 diabetes mellitus with hyperglycemia, with long-term current use of insulin: Code(s): E11.65 - Type 2 diabetes mellitus with hyperglycemia; Z79.4 - intermediate school teacher (current) use of insulin Status: Acute GI Consult Note Consult date/time: 11/06/23 10:02 Reason for consult: dysphagia, evaluation for peg placement HPI: Diego Marquez . is a 73 year old male with multiple medical problems including Afib who was on coumadin (no on heparin gtt), DM, htn admitted to icu 10/20 with septic shock and respiration failure that required intubation, pneumonia/cellulitis, also had KATHY that resolved, clinically some improvement but still has been requiring bipap (currently in floor and difficult to get good history from him). He failed barium swallow studies x2 and he has been getting tube feeding by NGT, family agreeable now to G-tube Review of Systems Review of Systems: ROS unobtainable: Yes unobtainable due to mental status [facility] Past Medical History Medical History (Updated 11/03/23 @ 17:42 by Demarcus Pop MD) Anemia Arthritis Atrial fibrillation (04/20/17) On chronic anticoagulation with warfarin CAD (coronary artery disease), autologous vein bypass graft Candidiasis of other urogenital sites Chronic venous stasis dermatitis of both lower extremities Diabetes mellitus Diabetic peripheral neuropathy Erectile dysfunction Essential hypertension Hemochromatosis However patient's iron studies demonstrate a low iron level (12/2020), normal transferrin (in 2019) and normal hemoglobin and now actually has what appears bandemia chronic disease Mixed hyperlipidemia (04/20/17) Obesity (BMI 35.0-39.9 without comorbidity) SAKSHI on CPAP (03/2019) CPAP of 7 Pacemaker Peripheral artery disease Rhabdomyolysis Sick sinus syndrome (04/18/17) Urge urinary incontinence Surgical History Surgical History H/O right heart catheterization Hx of CABG (~2004) Four-vessel CABG Pacemaker (04/2015) Single-chamber MRI compatible pacemaker Family History Family History Father Acute myocardial infarction Son Family history of obesity Mother Uterine cancer Social History Social History Social History: He has been since 1997 and he he lives in his own home. He ambulates with a walker. His son comes and checks on him daily, and will be his surrogate Ca
[2023-11-06] MEDS: TOLNAFTATE 1% POWDER 45 GM BTL 1 APPLIC TOPICAL ×2 (10:20→20:37)
[2023-11-06] MEDS: INSULIN GLARGINE (*BKC) 100 UNITS/ML SUB-Q (10:20)
[2023-11-06 11:52] LABS: Glucose Point of Care 231 mg/dl (65-105)
--- NOTE | 2023-11-06 14:27 | PM.IMPN ---
Progress Note: A&P Assessment and Plan (1) Acute respiratory failure with hypoxia and hypercapnia: Code(s): J96.01 - Acute respiratory failure with hypoxia; J96.02 - Acute respiratory failure with hypercapnia Status: Acute Assessment and Plan: Patient presented with AMS, cough, and flu like symptoms. CT Ch/A/P showing bilateral ground glass and interstitial opacities at dependent and lower lung zones. He developed respiratory failure felt to be multifactorial from pulmonary edema and pneumonia requiring intubation 10/20. Vent management was per research nurse practitioner. Patient weaned down and ultimately able to be extubated 10/31/23. Patient is a CO2 retainer and has obesity hypoventilation syndrome. Wean oxygen to keep SpO2 >93% Continue BiPAP at night, with naps and p.r.n. Bronchodilators available prn (2) Septic shock: Code(s): A41.9 - Sepsis, unspecified organism; R65.21 - Severe sepsis with septic shock Status: Acute Assessment and Plan: Patient with septic shock secondary to Pseudomonas pneumonia and cellulitis of right lower extremity. Patient was adequately fluid-resuscitated and received additional IV fluids in light of worsening renal function and albumin. He was started on Levophed. He was started on broad spectrum abx after appropriate cultures obtained. MRSA screen was negative so vancomycin discontinued. He completed 5 day course of doxycycline. BCx negative. Sputum culture growing Pseudomonas pneumonia. Patient also had a positive urine Legionella antigen and he completed a course of antibiotics. Repeat blood culture negative. Urine culture negative. Nayak catheter was replaced. On 10/29, patient with increased respiratory secretions and worsening chest x-ray concerning for pneumonia. WBC slightly elevated and patient also has fever. Antibiotics changed to vancomycin and meropenem. CT chest (10/30) did not show any significant pneumonia. His procalcitonin level was only 0.5. Lipase 715 and lower extremity venous Dopplers were negative for DVT. Repeat sputum culture (10/27) growing Pseudomonas which is pansensitive. Vancomycin stopped and meropenem continued. Continue meropenem to complete a course (3) Encephalopathy: Qualifiers: Encephalopathy type: toxic metabolic Qualified Code(s): G92.8 - Other toxic encephalopathy Code(s): G93.40 - Encephalopathy, unspecified Status: Acute Assessment and Plan: Encephalopathy could be related to septic shock, critical care illness, and/or residual sedation medications Ammonia level <9. CT brain showed no intracranial findings Patient still confused. Related to being off of his diazepam? Will continue to hold diazepam for now since admission on 10/20 (and off sedation since extubation 10/30) Continue to orient (4) Pneumonia: Qualifiers: Laterality: unspecified laterality Lung location: lower lobe of lung Pneumonia type: due to unspecified organism Qualified Code(s): J18.9 - Pneumonia, unspecified organism Code(s): J18.9 - Pneumonia, unspecified organism Status: Acute Assessment and Plan: See above (5) Acute kidney injury: Code(s): N17.9 - Acute kidney failure, unspecified Status: Acute Assessment and Plan: Baseline creatinine 1.0-1.3. Creatinine was normal on admission but worsen to 2.5. Renal ultrasound showed normal kidneys and no hydronephrosis. Nephrology consulted and appreciate their recommendations. Patient was fluid positive and did respond to diuretic therpy. Cr improved over the past few days and now normal. Follow (6) Cellulitis: Code(s): L03.90 - Cellulitis, unspecified Status: Acute Assessment and Plan: Continue antibiotics as above (7) Type 2 diabetes mellitus with hyperglycemia, with long-term current use of insulin: Code(s): E11.65 - Type 2 diabetes mellitus with hyperglycemia; Z79.4 - medical terminologist (current) use of insulin
[2023-11-06 17:45] LABS: Glucose Point of Care 161 mg/dl (65-105)
[2023-11-06] MEDS: INSULIN ASPART (*BKC) 100 UNITS/ML 12 UNITS SUB-Q (18:25)
[2023-11-07] VITALS (7 sets, daily range): BP systolic 112–128; BP diastolic 54–71; PULSE 62–94; RESP 20–24; TEMP 36.3–36.6; O2SAT 92–97
[2023-11-07 00:04] LABS: Glucose Point of Care 171 mg/dl (65-105)
[2023-11-07] MEDS: INSULIN ASPART (*BKC) 100 UNITS/ML 12 UNITS SUB-Q ×4 (00:15→17:30)
[2023-11-07] MEDS: HEPARIN SOD/D5W 100 UNITS/ML 25,000 UNITS/250 ML BAG 13 UNITS IV CONT ×2 (01:06→22:05)
[2023-11-07] MEDS: MEROPENEM 1 GM/NS 100 ML 1 GM/100 ML BAG IVPB ×2 (04:33→11:17)
[2023-11-07 04:59] LABS: Hematocrit 36.7 % (42.0-52.0); Hemoglobin 10.5 g/dL (14.0-18.0); Mean Corpuscular HGB Conc 28.6 g/dl (32-36); Mean Corpuscular Hemoglobin 26.4 pg (26-34); Mean Corpuscular Volume 92.2 fl (80-100); Mean Platelet Volume 11.1 fl (7.4-10.4); Platelet Count Result 337 k/mm3 (150-375); Red Blood Count 3.98 M/mm3 (4.6-6.20); Red Cell Distribution Width 22.3 % (11.5-14.5); White Blood Count 11.7 K/mm3 (4.5-10.0)
[2023-11-07 05:08] LABS: INR 1.1; Prothrombin Time 14.9 Seconds (11.1-14.7)
[2023-11-07 05:10] LABS: Partial Thromboplastin Time 82.5 Seconds (22.3-36.8)
[2023-11-07 05:11] LABS: Alanine Aminotransferase 22 U/L (6-50); Albumin Level 3.7 g/dL (3.5-5.1); Alkaline Phosphatase 114 U/L (38-126); Anion Gap 8 mmol/L (4-12); Aspartate Amino Transferase 52 U/L (17-59); Bilirubin,Total 0.8 mg/dL (0.2-1.3); Blood Urea Nitrogen 45 mg/dL (9-20); Calcium 10.6 mg/dL (8.4-10.2); Carbon Dioxide 27 mmol/L (22-30); Chloride 115 mmol/L (98-107); Estimated CRCL calculation 63 ml/min; Estimated Glomerular Filt Rate > 60; Glucose 178 mg/dL (65-110); Lipase 1124 U/L (23-300); Magnesium 2.4 mg/dL (1.6-2.3); Potassium 4.6 mmol/L (3.4-5.0); Sodium 150 mmol/L (137-145)
[2023-11-07 06:11] LABS: Glucose Point of Care 181 mg/dl (65-105)
[2023-11-07] MEDS: polyethylene glycoL 3350 17 GM POWD.PACK FEED TUBE (09:00)
[2023-11-07] MEDS: PANTOPRAZOLE SODIUM IV 40 MG VIAL IV PUSH (09:00)
[2023-11-07] MEDS: BISACODYL 10 MG SUPPOSITORY RECTAL (09:00)
[2023-11-07] MEDS: EUCERIN CREAM 120 GM JAR 1 APPLIC TOPICAL ×2 (09:01→16:18)
[2023-11-07] MEDS: ROSUVASTATIN 10 MG TABLET FEED TUBE (09:01)
[2023-11-07] MEDS: TOLNAFTATE 1% POWDER 45 GM BTL 1 APPLIC TOPICAL ×2 (09:02→22:03)
[2023-11-07 09:36] LABS: Glucose Point of Care 150 mg/dl (65-105)
[2023-11-07] MEDS: INSULIN GLARGINE (*BKC) 100 UNITS/ML SUB-Q (09:41)
--- NOTE | 2023-11-07 11:41 | PM.IMPN ---
Progress Note: A&P Assessment and Plan (1) Acute respiratory failure with hypoxia and hypercapnia: Code(s): J96.01 - Acute respiratory failure with hypoxia; J96.02 - Acute respiratory failure with hypercapnia Status: Acute Assessment and Plan: Patient presented with AMS, cough, and flu like symptoms. CT Ch/A/P showing bilateral ground glass and interstitial opacities at dependent and lower lung zones. He developed respiratory failure felt to be multifactorial from pulmonary edema and pneumonia requiring intubation 10/20. Vent management was per geospatial intelligence analyst. Patient weaned down and ultimately able to be extubated 10/31/23. Patient is a CO2 retainer and has obesity hypoventilation syndrome. Weaned to room air Continue BiPAP at night, with naps and p.r.n. Bronchodilators available prn (2) Septic shock: Code(s): A41.9 - Sepsis, unspecified organism; R65.21 - Severe sepsis with septic shock Status: Acute Assessment and Plan: Patient with septic shock secondary to Pseudomonas pneumonia and cellulitis of right lower extremity. Patient was adequately fluid-resuscitated and received additional IV fluids in light of worsening renal function and albumin. He was started on Levophed. He was started on broad spectrum abx after appropriate cultures obtained. MRSA screen was negative so vancomycin discontinued. He completed 5 day course of doxycycline. BCx negative. Sputum culture growing Pseudomonas pneumonia. Patient also had a positive urine Legionella antigen and he completed a course of antibiotics. Repeat blood culture negative. Urine culture negative. Nayak catheter was replaced. On 10/29, patient with increased respiratory secretions and worsening chest x-ray concerning for pneumonia. WBC slightly elevated and patient also has fever. CT chest (10/30) did not show any significant pneumonia. Antibiotics changed to vancomycin and meropenem. His procalcitonin level was only 0.5. Lipase 715 and lower extremity venous Dopplers were negative for DVT. Repeat sputum culture (10/27) growing Pseudomonas which was pansensitive. Vancomycin stopped and meropenem (started 11/01 900am) continued. Continue meropenem to complete a 7 day course. (3) Encephalopathy: Qualifiers: Encephalopathy type: toxic metabolic Qualified Code(s): G92.8 - Other toxic encephalopathy Code(s): G93.40 - Encephalopathy, unspecified Status: Acute Assessment and Plan: Encephalopathy could be related to septic shock, critical care illness, and/or residual sedation medications Ammonia level <9. CT brain showed no intracranial findings Patient still confused. Related to being off of his chronic diazepam and/or Gabapentin? Will continue to hold diazepam for now since admission on 10/20 (and off sedation since extubation 10/30) Will repeat CT brain to exclude occult CVA. He can not have MRI since he has PM. Continue to orient. Add back Vicki at lower dose. (4) Pneumonia: Qualifiers: Laterality: unspecified laterality Lung location: lower lobe of lung Pneumonia type: due to unspecified organism Qualified Code(s): J18.9 - Pneumonia, unspecified organism Code(s): J18.9 - Pneumonia, unspecified organism Status: Acute Assessment and Plan: See above (5) Acute kidney injury: Code(s): N17.9 - Acute kidney failure, unspecified Status: Acute Assessment and Plan: Baseline creatinine 1.0-1.3. Creatinine was normal on admission but worsen to 2.5. Renal ultrasound showed normal kidneys and no hydronephrosis. Nephrology consulted and appreciate their recommendations. Patient was fluid positive and did respond to diuretic therpy. Cr improved over the past few days and now normal. Follow (6) Cellulitis: Code(s): L03.90 - Cellulitis, unspecified Status: Acute Assessment and Plan: Continue antibiotics as above (7) Type 2 diabetes mellitus with hyperglycemia, w
[2023-11-07 12:00] LABS: Glucose Point of Care 178 mg/dl (65-105)
[2023-11-07] MEDS: GABAPENTIN 100 MG CAPSULE FEED TUBE ×2 (12:08→16:18)
--- NOTE | 2023-11-07 14:30 | WPDGIPROGNO ---
Progress Note: A&P Assessment and Plan (1) Dysphagia: Code(s): R13.10 - Dysphagia, unspecified Status: Inactive Assessment and Plan: failed swallow study, plan G-tube placement tomorrow currently tube feeding by NGT (2) Encephalopathy: Qualifiers: Encephalopathy type: toxic metabolic Qualified Code(s): G92.8 - Other toxic encephalopathy Code(s): G93.40 - Encephalopathy, unspecified Status: Acute (3) Acute respiratory failure with hypoxia and hypercapnia: Code(s): J96.01 - Acute respiratory failure with hypoxia; J96.02 - Acute respiratory failure with hypercapnia Status: Acute Assessment and Plan: improved, bipap as needed (4) Cellulitis: Code(s): L03.90 - Cellulitis, unspecified Status: Acute Assessment and Plan: s/p treatment (5) Type 2 diabetes mellitus with hyperglycemia, with long-term current use of insulin: Code(s): E11.65 - Type 2 diabetes mellitus with hyperglycemia; Z79.4 - long term (current) use of insulin Status: Acute (6) Atrial fibrillation: Onset Date: 04/20/17 Code(s): I48.91 - Unspecified atrial fibrillation Status: Chronic (7) Anticoagulant long-term use: Code(s): Z79.01 - [facility] (current) use of anticoagulants Status: Acute Assessment and Plan: he was on coumadin, currently on heparin gtt- will put on hold 4 hours prior g-tube placement Subjective Date/time seen: 11/07/23 14:30 Interval history: tolerating tube feeding by NGT at 60 ml/h Review of Systems Review of Systems: All systems reviewed & are unremarkable except as noted in HPI and below Exam Narrative: Gen - NARD, comfortable HEENT - NGT secured. Chest - lungs clear, few rhonchi CV - irregularly irregular Abd - Soft, obese, NT - Nayak secured draining clear yellow urine Ext - trace bilateral LE edema Neuro - Alert but confused. speech garbled. follows commands. Psych - anxious Skin - chronic venous stasis changes bilateral LE with decreased scale and dressings in place bilateral lower legs. Objective Data Vital Signs Vital Signs: Vital Signs - 24 hr 11/06/23 21:04 11/06/23 20:33 11/07/23 06:02 Temperature 97.7 F 97.9 F Pulse Rate 80 81 Respiratory Rate 20 20 Blood Pressure 120/62 120/54 L Pulse Oximetry 96 93 Oxygen Delivery Room Air Fraction of Inspired Oxygen 11/07/23 08:06 11/07/23 07:50 Temperature Pulse Rate 62 Respiratory Rate 24 H 22 H Blood Pressure Pulse Oximetry 92 92 Oxygen Delivery Room Air Room Air Fraction of Inspired Oxygen 21 Intake/Output Intake/Output: Intake & Output 11/04/23 11/05/23 11/06/23 11/07/23 23:59 23:59 23:59 23:59 Intake Total 1619.5 2300 1475 1541 Output Total 1600 4150 2900 1000 Balance 19.5 -4410 1428 541 Meds/Results Medications: Active Medications Generic Name Dose Route Start Last Admin Trade Name Freq PRN Reason Stop Dose Admin Acetaminophen 650 mg 11/04/23 17:58 Acetaminophen Elixir 325 Mg/10.15 Ml Udc FEED TUBE Q4H PRN Mild Pain (1-3) or Fever Albuterol/Ipratropium 3 ml 11/04/23 17:58 Ipratropium 0.5 Mg/Albuterol Sulfate 2.5 Mg Ampul.Neb 3 Ml INHALATION Q6HRT PRN Shortness Of Breath Alteplase, Recombinant 2 mg 10/26/23 23:59 11/02/23 02:06 Alteplase 2 Mg Vial (Cathflo) IV PUSH 2 mg ONCE PRN Administration Line Occlusion Bisacodyl 10 mg 11/02/23 09:00 11/07/23 09:00 Bisacodyl 10 Mg Suppository RECTAL 10 mg QAM SUNNY Administration Dextrose 12.5 gm 10/22/23 02:28 Dextrose 50% 25 Gm/50 Ml Syringe IV PUSH PRN PRN Hypoglycemia Protocol Gabapentin 100 mg 11/07/23 13:00 11/07/23 12:08 Gabapentin 100 Mg Capsule FEED TUBE 100 mg TID SUNNY Administration Glucagon 1 mg 10/22/23 02:28 Glucagon For Inj 1 Mg Vial IM PRN PRN Hypoglycemia Protocol Glucose 15 gm 10/22/23 02:28
[2023-11-07 17:27] LABS: Glucose Point of Care 169 mg/dl (65-105)
--- NOTE | 2023-11-07 20:26 | PC.NURSE ---
Call placed to [facility] regarding ordered CT scans. It's okay to pause heparin gtt for CT
--- NOTE | 2023-11-07 22:02 | PC.NURSE ---
patient very alert this evening and attempting to talk. most speech is garbled but patient stated i feel horrible . prn tylenol given.
[2023-11-07] MEDS: ACETAMINOPHEN ELIXIR 325 MG/10.15 ML UDC 650 MG FEED TUBE (22:05)
[2023-11-08] VITALS (14 sets, daily range): BP systolic 94–155; BP diastolic 48–77; PULSE 64–89; RESP 14–26; TEMP 36.1–36.6; O2SAT 92–100
[2023-11-08 01:05] LABS: Glucose Point of Care 181 mg/dl (65-105)
[2023-11-08 05:58] LABS: Glucose Point of Care 157 mg/dl (65-105)
[2023-11-08 06:43] LABS: Basophils Absolute Auto 0.1 K/mm3 (0.0-0.1); Basophils Percent Auto 1.5 % (0.2-1.2); Eosinophils Absolute Auto 0.3 K/mm3 (0-0.3); Eosinophils Percent Auto 3.1 % (0-4.4); Hematocrit 43.1 % (42.0-52.0); Immature Granulocyte Absolute 0.26 K/mm3 (0.00-0.031); Immature Granulocyte Percent A 2.8 % (0-0.5); Lymphocytes Absolute Auto 1.92 K/mm3 (0.9-3.2); Mean Corpuscular HGB Conc 27.8 g/dl (32-36); Mean Corpuscular Hemoglobin 26.9 pg (26-34); Mean Corpuscular Volume 96.6 fl (80-100); Mean Platelet Volume 11.6 fl (7.4-10.4); Monocytes Absolute Auto 0.9 K/mm3 (0.1-0.6); Monocytes Percent Auto 9.3 % (2.6-8.5); Neutrophils Absolute Auto 5.7 K/mm3 (1.3-6.7); Neutrophils Percent Auto 62.3 % (45.5-73.1); Nucleated Red Blood Cells Perc 0.2 % (0.0-0.2); Platelet Count Result 273 k/mm3 (150-375); Red Blood Count 4.46 M/mm3 (4.6-6.20); Red Cell Distribution Width 22.4 % (11.5-14.5); White Blood Count 9.1 K/mm3 (4.5-10.0)
[2023-11-08 06:50] LABS: Anion Gap 7 mmol/L (4-12); Blood Urea Nitrogen 40 mg/dL (9-20); Calcium 10.1 mg/dL (8.4-10.2); Carbon Dioxide 29 mmol/L (22-30); Chloride 111 mmol/L (98-107); Estimated CRCL calculation 68 ml/min; Estimated Glomerular Filt Rate > 60; Glucose 171 mg/dL (65-110); Magnesium 2.7 mg/dL (1.6-2.3); Phosphorus 4.3 mg/dL (2.5-4.5); Potassium 4.8 mmol/L (3.4-5.0); Sodium 147 mmol/L (137-145)
[2023-11-08 06:54] LABS: Partial Thromboplastin Time 68.7 Seconds (22.3-36.8)
[2023-11-08 07:25] LABS: Anisocytosis 1+; Microcytosis 1+ (NORMAL); Platelet Estimate Adequate (Adequate); Schistocytes None Seen
[2023-11-08] MEDS: PANTOPRAZOLE SODIUM IV 40 MG VIAL IV PUSH (08:25)
[2023-11-08] MEDS: EUCERIN CREAM 120 GM JAR 1 APPLIC TOPICAL ×2 (08:29→17:09)
[2023-11-08] MEDS: TOLNAFTATE 1% POWDER 45 GM BTL 1 APPLIC TOPICAL ×2 (08:29→20:59)
[2023-11-08 09:25] LABS: Appearance Urine Cloudy (Clear); Color Urine Dark Yellow (Yellow); pH Urine 6.5 (5.0-8.0)
[2023-11-08 09:26] LABS: Add Urine Microscopic? YES; Bilirubin Urine Negative (Negative); Blood Urine 3+ (Negative); Glucose Urine UA Trace (Negative); Ketones Urine Negative (Negative); Leukocyte Esterase Ur Negative LEU/UL (Negative); Nitrate Urine Negative (Negative); Protein Urine 2+ (Negative); Specific Grav Ur 1.015 (1.010-1.020)
[2023-11-08 09:34] LABS: Bacteria Urine None Seen /hpf; Budding Yeast Urine Present /hpf; Non Pathogenic Casts 0-2; RBC Urine >100 /hpf (0-2); Squamous Epithelial Cell Urine None Seen /hpf (Few); WBC Urine 21-50 /hpf (0-3)
--- NOTE | 2023-11-08 09:35 | PC.NURSE ---
Report called to Himanshu PINON in GI Lab.
--- NOTE | 2023-11-08 11:42 | PM.IMPN ---
Progress Note: A&P Assessment and Plan (1) Acute respiratory failure with hypoxia and hypercapnia: Code(s): J96.01 - Acute respiratory failure with hypoxia; J96.02 - Acute respiratory failure with hypercapnia Status: Acute Assessment and Plan: Patient presented with AMS, cough, and flu like symptoms. CT Ch/A/P showing bilateral ground glass and interstitial opacities at dependent and lower lung zones. He developed respiratory failure felt to be multifactorial from pulmonary edema and pneumonia requiring intubation 10/20. Vent management was per greeter guest services. Patient weaned down and ultimately able to be extubated 10/31/23. Patient is a CO2 retainer and has obesity hypoventilation syndrome. Weaned to room air Continue BiPAP at night, with naps and p.r.n. Bronchodilators available prn (2) Septic shock: Code(s): A41.9 - Sepsis, unspecified organism; R65.21 - Severe sepsis with septic shock Status: Acute Assessment and Plan: Patient with septic shock secondary to Pseudomonas pneumonia and cellulitis of right lower extremity. Patient was adequately fluid-resuscitated and received additional IV fluids in light of worsening renal function and albumin. He was started on Levophed. He was started on broad spectrum abx after appropriate cultures obtained. MRSA screen was negative so vancomycin discontinued. He completed 5 day course of doxycycline. BCx negative. Sputum culture growing Pseudomonas pneumonia. Patient also had a positive urine Legionella antigen and he completed a course of antibiotics. Repeat blood culture negative. Urine culture negative. Nayak catheter was replaced. On 10/29, patient with increased respiratory secretions and worsening chest x-ray concerning for pneumonia. WBC slightly elevated and patient also has fever. CT chest (10/30) did not show any significant pneumonia. Antibiotics changed to vancomycin and meropenem. His procalcitonin level was only 0.5. Lipase 715 and lower extremity venous Dopplers were negative for DVT. Repeat sputum culture (10/27) growing Pseudomonas which was pansensitive. Vancomycin stopped and meropenem continued. He has completed a course of meropenem. (3) Encephalopathy: Qualifiers: Encephalopathy type: toxic metabolic Qualified Code(s): G92.8 - Other toxic encephalopathy Code(s): G93.40 - Encephalopathy, unspecified Status: Acute Assessment and Plan: Encephalopathy could be related to septic shock, critical care illness, meropenem and/or residual sedation medications Ammonia level <9. CT brain showed no intracranial findings Patient still confused. Related to being off of his chronic diazepam and/or Gabapentin? Will continue to hold diazepam for now since admission on 10/20 (and off sedation since extubation 10/30) Repeat CT brain showing no acute findings. Meropenem off now and his mental status better. We also added back low dose Vicki. Folow clinically. (4) Pneumonia: Qualifiers: Laterality: unspecified laterality Lung location: lower lobe of lung Pneumonia type: due to unspecified organism Qualified Code(s): J18.9 - Pneumonia, unspecified organism Code(s): J18.9 - Pneumonia, unspecified organism Status: Acute Assessment and Plan: See above (5) Acute kidney injury: Code(s): N17.9 - Acute kidney failure, unspecified Status: Acute Assessment and Plan: Baseline creatinine 1.0-1.3. Creatinine was normal on admission but worsen to 2.5. Renal ultrasound showed normal kidneys and no hydronephrosis. Nephrology consulted and appreciate their recommendations. Patient was fluid positive and did respond to diuretic therpy. Cr improved over the past few days and now normal. Follow (6) Cellulitis: Code(s): L03.90 - Cellulitis, unspecified Status: Acute Assessment and Plan: Continue antibiotics as above (7) Type 2 diabetes mellitus with hyperglycemia, with
--- NOTE | 2023-11-08 11:45 | PCNFU ---
Nutrition Follow-Up Complete: Inadequate energy intake related to sepsis, PNA as evidenced by mechanical ventilation, need for full tube feeding, possible ileus Goal: Meet estimated nutrition needs Patient is progressing towards goal. We will continue current goal. Pt current nutrition is NPO. Nutrition recommendation: Glucerna 1.2 at 70 ml/hr Last recorded weight is 105 kg, down from 122.1 kg on admit. Patient continue to lose weight. Bowel Motility: +BM reported at Labs Reviewed: Glu 171, BUN 40, Na 147, Hgb 12.0 Meds Noted: Protonix, Miralax, Lantus, Reglan,NovoLog Skin: Deep Tissue-right heel Additional Notes: Patient to getting G tube placed today. Tube feedings are being tolerated of Glucerna 1.2 at 65 ml/hr. Recommend increasing to 70 ml/hr. Patient continues to lose weight. Flex BID is being flush providing an additional 160 kcal/5 gm protein/14 gm glutamine/14 gm arginine. Total Nutrition if increased at 70 ml/hr: 2008 kcal/97 gm protein/1240 ml water. Flush increased to 225 ml q 4 hours 2/2 to Na 147. Monitor tube feeding orders, tolerance, labs, weights, stool patterns, plan of care Follow up Tuesday and Tuesday.
[2023-11-08 11:50] LABS: Glucose Point of Care 158 mg/dl (65-105)
--- NOTE | 2023-11-08 12:45 | PC.NURSE ---
To GI lab via stretcher. Family notified via telephone.
[2023-11-08 12:58] LABS: Glucose Point of Care 165 mg/dl (65-105)
[2023-11-08] MEDS: LACTATED RINGERS 1,000 ML 150 ML IV CONT (13:05)
--- NOTE | 2023-11-08 13:09 | WPDANESEPPF ---
Anes - Initial Pre Proc Eval Procedure: Operation Date: 11/08/23 15:00 Proposed Procedures p Percutaneous Endoscopic Gastrostomy - Nghia Mitchell MD Date/Time: 11/08/23 13:09 Surgeon: Araceli Jacobs DO Pre Op Diagnosis: Mixed resp failure, pna Patient Data Age: 73 Gender: M Height: 1.73 m Weight: 105 kg Last Vital Signs Temp 97.2 F L 11/08/23 13:01 Pulse 74 11/08/23 13:01 Resp 20 11/08/23 13:01 BP 100/53 L 11/08/23 13:01 Pulse Ox 98 11/08/23 13:01 O2 Del Method Room Air 11/08/23 13:01 O2 Flow Rate 2 11/04/23 20:17 FiO2 21 11/07/23 08:06 Allergies Allergy/AdvReac Type Severity Reaction Status Date / Time No Known Allergies Allergy Verified 05/23/23 15:18 Home Medications Medication Instructions Recorded Confirmed Type oxybutynin chloride 5 mg tablet 5 mg PO BID 01/31/19 10/22/23 History rosuvastatin 10 mg tablet 10 mg PO DAILY 07/25/20 10/22/23 History lisinopril 20 mg tablet 20 mg PO DAILY 03/09/22 10/22/23 History warfarin 2 mg tablet 4 mg PO SUTUWETHSA #50 tabs 03/26/22 10/22/23 Rx warfarin 5 mg tablet 5 mg PO MOFR #10 tabs 03/26/22 10/22/23 Rx diazepam 10 mg tablet 10 mg PO TID 07/04/22 10/22/23 History gabapentin 300 mg capsule 300 mg PO TID 07/04/22 10/22/23 History insulin glargine 100 unit/mL (3 100 unit subcut DAILY 10/22/23 10/22/23 History mL) subcutaneous pen (Lantus Solostar U-100 Insulin) insulin lispro 100 unit/mL See Rx Instructions .Route .COMPLEX 10/22/23 10/22/23 History subcutaneous pen pantoprazole 40 mg tablet,delayed 40 mg PO DAILY 10/22/23 10/22/23 History release Laboratory Tests 11/07/23 11/08/23 11/08/23 17:24 00:49 05:19 WBC RBC Hgb Hct MCV MCH MCHC RDW Plt Count MPV Immature Gran % (Auto) Neut % (Auto) Lymph % (Auto) [place] % (Auto) Eos % (Auto) Baso % (Auto) Lymph # (Auto) [place] # (Auto) Eos # (Auto) Baso # (Auto) Abs Immat Gran (auto) Absolute Neuts (auto) Absolute Nucleated RBC Nucleated RBC % Platelet Estimate Anisocytosis Microcytosis Schistocytes APTT Sodium Potassium Chloride Carbon Dioxide Anion Gap BUN Creatinine Estim Creat Clear Calc Estimated GFR Glucose POC Capillary Glucose 169 H mg/dl 181 H mg/dl 157 H mg/dl (65-105) (65-105) (65-105) Calcium Phosphorus Magnesium Albumin Urine Color Urine Appearance Urine pH Ur Specific Platter Urine Protein Urine Glucose (UA) Urine Ketones Ur Blood (Man) Urine Nitrate Urine Bilirubin Urine Urobilinogen Leukocyte Esterase Rfl Urine RBC Urine WBC Ur Squamous Epith Cells Urine Bacteria Urine Casts Urine Yeast (Budding) 11/08/23 11/08/23 11/08/23 05:46 08:46 11:43 WBC 9.1 K/mm3 (4.5-10.0) RBC 4.46 L M/mm3 (4.6-6.20) Hgb 12.0 L g/dL (14.0-18.0) Hct 43.1 % (42.0-52.0) MCV 96.6 fl (80-100) MCH 26.9 pg (26-34) MCHC 27.8 L g/dl (32-36) RDW 22.4 H % (11.5-14.5) Plt Count 273 k/mm3 (150-375) MPV 11.6 H fl (7.4-10.4) Immature Gran % (Auto) 2.8 H % (0-0.5) Neut % (Auto) 62.3 % (45.5-73.1) Lymph % (Auto) 21.0 % (18.3-44.2) [place] % (Auto) 9.3 H % (2
[2023-11-08] MEDS: ceFAZolin 1 GM/NS 50 ML 1 GM/50 ML BAG IVPB (13:28)
--- NOTE | 2023-11-08 15:00 | PC.NURSE ---
Returned from GI Lab via stretcher. Abdominal Binder applied. Family notified of patient's return from GI Lab.
--- NOTE | 2023-11-08 15:17 | PC.NURSE ---
Returned from GI Lab via stretcher. Abdominal Binder applied. Family notified of patient's back from surgery.
[2023-11-08] MEDS: GABAPENTIN 100 MG CAPSULE FEED TUBE (17:09)
[2023-11-08 17:28] LABS: Glucose Point of Care 163 mg/dl (65-105)
[2023-11-09] VITALS (7 sets, daily range): BP systolic 120–139; BP diastolic 47–65; PULSE 64–83; RESP 17–26; TEMP 36.2–36.8; O2SAT 96–98
[2023-11-09 00:18] LABS: Glucose Point of Care 193 mg/dl (65-105)
[2023-11-09] MEDS: HEPARIN SOD/D5W 100 UNITS/ML 25,000 UNITS/250 ML BAG 13 UNITS IV CONT (05:26)
[2023-11-09 05:39] LABS: Glucose Point of Care 202 mg/dl (65-105)
[2023-11-09] MEDS: INSULIN ASPART (*BKC) 100 UNITS/ML SUB-Q ×3 (05:39→17:37)
[2023-11-09 06:10] LABS: Basophils Absolute Auto 0.1 K/mm3 (0.0-0.1); Basophils Percent Auto 1.2 % (0.2-1.2); Eosinophils Absolute Auto 0.2 K/mm3 (0-0.3); Eosinophils Percent Auto 2.3 % (0-4.4); Hematocrit 41.5 % (42.0-52.0); Hemoglobin 11.6 g/dL (14.0-18.0); Immature Granulocyte Absolute 0.19 K/mm3 (0.00-0.031); Immature Granulocyte Percent A 2.1 % (0-0.5); Lymphocytes Absolute Auto 1.69 K/mm3 (0.9-3.2); Lymphocytes Percent Auto 18.9 % (18.3-44.2); Mean Corpuscular Hemoglobin 26.4 pg (26-34); Mean Corpuscular Volume 94.3 fl (80-100); Mean Platelet Volume 11.3 fl (7.4-10.4); Monocytes Absolute Auto 0.8 K/mm3 (0.1-0.6); Monocytes Percent Auto 9.3 % (2.6-8.5); Neutrophils Absolute Auto 5.9 K/mm3 (1.3-6.7); Neutrophils Percent Auto 66.2 % (45.5-73.1); Platelet Count Result 266 k/mm3 (150-375); Red Cell Distribution Width 22.5 % (11.5-14.5); White Blood Count 8.9 K/mm3 (4.5-10.0)
[2023-11-09 06:20] LABS: Partial Thromboplastin Time 28.1 Seconds (22.3-36.8)
[2023-11-09 06:22] LABS: Alanine Aminotransferase 22 U/L (6-50); Albumin Level 3.9 g/dL (3.5-5.1); Alkaline Phosphatase 111 U/L (38-126); Anion Gap 8 mmol/L (4-12); Aspartate Amino Transferase 52 U/L (17-59); Blood Urea Nitrogen 45 mg/dL (9-20); Calcium 10.3 mg/dL (8.4-10.2); Carbon Dioxide 31 mmol/L (22-30); Chloride 110 mmol/L (98-107); Estimated CRCL calculation 68 ml/min; Estimated Glomerular Filt Rate > 60; Glucose 214 mg/dL (65-110); Potassium 5.1 mmol/L (3.4-5.0); Sodium 149 mmol/L (137-145)
[2023-11-09 06:39] LABS: Platelet Estimate Adequate (Adequate)
[2023-11-09 06:40] LABS: Anisocytosis 2+; Hypochromasia 1+; Macrocytosis 1+ (NORMAL); Schistocytes None Seen
[2023-11-09 06:59] LABS: Glucose Point of Care 192 mg/dl (65-105)
[2023-11-09] MEDS: PANTOPRAZOLE SODIUM IV 40 MG VIAL IV PUSH (08:44)
[2023-11-09] MEDS: GABAPENTIN 100 MG CAPSULE FEED TUBE ×3 (08:45→17:06)
[2023-11-09] MEDS: polyethylene glycoL 3350 17 GM POWD.PACK FEED TUBE ×2 (08:45→17:07)
[2023-11-09] MEDS: ROSUVASTATIN 10 MG TABLET FEED TUBE (08:45)
[2023-11-09] MEDS: TOLNAFTATE 1% POWDER 45 GM BTL 1 APPLIC TOPICAL (08:46)
[2023-11-09] MEDS: EUCERIN CREAM 120 GM JAR 1 APPLIC TOPICAL ×2 (08:46→17:07)
[2023-11-09] MEDS: BISACODYL 10 MG SUPPOSITORY RECTAL (10:17)
[2023-11-09 11:51] LABS: Glucose Point of Care 219 mg/dl (65-105)
[2023-11-09 12:24] LABS: Partial Thromboplastin Time 60.8 Seconds (22.3-36.8)
--- NOTE | 2023-11-09 12:41 | PM.IMPN ---
Progress Note: A&P Assessment and Plan (1) Acute respiratory failure with hypoxia and hypercapnia: Code(s): J96.01 - Acute respiratory failure with hypoxia; J96.02 - Acute respiratory failure with hypercapnia Status: Acute Assessment and Plan: Patient presented with AMS, cough, and flu like symptoms. CT Ch/A/P showing bilateral ground glass and interstitial opacities at dependent and lower lung zones. He developed respiratory failure felt to be multifactorial from pulmonary edema and pneumonia requiring intubation 10/20. Vent management was per aviation tactical readiness officer. Patient weaned down and ultimately able to be extubated 10/31/23. Patient is a CO2 retainer and has obesity hypoventilation syndrome. Pt is on RA in day and BIPAP at night (2) Septic shock: Code(s): A41.9 - Sepsis, unspecified organism; R65.21 - Severe sepsis with septic shock Status: Acute Assessment and Plan: Patient with septic shock secondary to Pseudomonas pneumonia and cellulitis of right lower extremity. Patient was adequately fluid-resuscitated and received additional IV fluids in light of worsening renal function and albumin. He was started on Levophed. He was started on broad spectrum abx after appropriate cultures obtained. MRSA screen was negative so vancomycin discontinued. He completed 5 day course of doxycycline. BCx negative. Sputum culture growing Pseudomonas pneumonia. Patient also had a positive urine Legionella antigen and he completed a course of antibiotics. Repeat blood culture negative. Urine culture negative. Nayak catheter was replaced. Repeat sputum culture (10/27) growing Pseudomonas which was pansensitive. Vancomycin stopped and meropenem continued. He has completed a course of meropenem. Septic shock resolved (3) Encephalopathy: Qualifiers: Encephalopathy type: toxic metabolic Qualified Code(s): G92.8 - Other toxic encephalopathy Code(s): G93.40 - Encephalopathy, unspecified Status: Acute Assessment and Plan: Encephalopathy could be related to septic shock, critical care illness, meropenem and/or residual sedation medications Ammonia level <9. CT brain showed no intracranial findings Patient still confused. Related to being off of his chronic diazepam and/or Gabapentin? Will continue to hold diazepam for now since admission on 10/20 (and off sedation since extubation 10/30) Repeat CT brain showing no acute findings. Meropenem off now and his mental status better. We also added back low dose Gabapentin Slowly improving (4) Pneumonia: Qualifiers: Laterality: unspecified laterality Lung location: lower lobe of lung Pneumonia type: due to unspecified organism Qualified Code(s): J18.9 - Pneumonia, unspecified organism Code(s): J18.9 - Pneumonia, unspecified organism Status: Acute Assessment and Plan: See above (5) Acute kidney injury: Code(s): N17.9 - Acute kidney failure, unspecified Status: Acute Assessment and Plan: Baseline creatinine 1.0-1.3. Creatinine was normal on admission but worsen to 2.5. Renal ultrasound showed normal kidneys and no hydronephrosis. Nephrology consulted and appreciate their recommendations. Patient was fluid positive and did respond to diuretic therpy. Cr is 1 (6) Cellulitis: Code(s): L03.90 - Cellulitis, unspecified Status: Acute Assessment and Plan: completed IV abx (7) Type 2 diabetes mellitus with hyperglycemia, with long-term current use of insulin: Code(s): E11.65 - Type 2 diabetes mellitus with hyperglycemia; Z79.4 - residential (current) use of insulin Status: Acute Assessment and Plan: Insulin was poorly controlled and ultimately required insulin infusion. He was monitored with [employer] covering with sliding scale. Hypoglycemia protocol was available as needed. TF advanced so insulin regiment advanced. He normally takes Lantus 100U daily and
[2023-11-09 12:53] LABS: INR 1.1; Prothrombin Time 14.2 Seconds (11.1-14.7)
--- NOTE | 2023-11-09 14:59 | WPDGIPROGNO ---
Progress Note: A&P Assessment and Plan (1) Dysphagia: Code(s): R13.10 - Dysphagia, unspecified Status: Inactive Assessment and Plan: peg placed yesterday, tolerating tube feeding will follow as needed (2) Anticoagulant long-term use: Code(s): Z79.01 - alf (current) use of anticoagulants Status: Acute Assessment and Plan: ok to use anticoagulation by primary (3) Encephalopathy: Qualifiers: Encephalopathy type: toxic metabolic Qualified Code(s): G92.8 - Other toxic encephalopathy Code(s): G93.40 - Encephalopathy, unspecified Status: Acute (4) Acute respiratory failure with hypoxia and hypercapnia: Code(s): J96.01 - Acute respiratory failure with hypoxia; J96.02 - Acute respiratory failure with hypercapnia Status: Acute Assessment and Plan: improved, bipap as needed (5) Cellulitis: Code(s): L03.90 - Cellulitis, unspecified Status: Acute Assessment and Plan: s/p treatment (6) Type 2 diabetes mellitus with hyperglycemia, with long-term current use of insulin: Code(s): E11.65 - Type 2 diabetes mellitus with hyperglycemia; Z79.4 - supervisor intermediates (current) use of insulin Status: Acute (7) Atrial fibrillation: Onset Date: 04/20/17 Code(s): I48.91 - Unspecified atrial fibrillation Status: Chronic Subjective Date/time seen: 11/09/23 14:59 Interval history: tolerating tube feeding at 50ml/h Review of Systems Review of Systems: All systems reviewed & are unremarkable except as noted in HPI and below Exam Const: Other: chronically ill HENMT: Face/Nose/Sinus: Normal nares present Eyes: General: appearance normal, both eyes and all related structures Neck: Neck: supple Resp: Effort & Inspection: normal respiratory effort Auscultation: no wheezes Cardio: Rate: regular rate GI: GI Palp: Yes Soft to palpation Auscultation: normal bowel sounds Other: PEG in place, + abdominal binder Skin: Other: venous stasis legs Neuro: Other: gurbled speech, he is talking but confused Extrem: General: pedal edema Objective Data Vital Signs Vital Signs: Vital Signs - 24 hr 11/08/23 15:30 11/08/23 15:00 11/08/23 16:00 Temperature Pulse Rate 64 Respiratory Rate 20 20 14 Blood Pressure 123/56 L Pulse Oximetry 97 100 Oxygen Delivery BiPAP Room Air Fraction of Inspired Oxygen 21 11/08/23 22:00 11/08/23 22:35 11/09/23 00:42 Temperature 97.6 F Pulse Rate 68 76 80 Respiratory Rate 18 24 H 21 H Blood Pressure 155/66 H Pulse Oximetry 98 92 98 Oxygen Delivery BiPAP BiPAP Fraction of Inspired Oxygen 11/09/23 06:00 11/09/23 04:30 11/09/23 08:45 Temperature 98.1 F Pulse Rate 73 83 Respiratory Rate 18 17 Blood Pressure 125/47 L Pulse Oximetry 97 97 Oxygen Delivery BiPAP Room Air Fraction of Inspired Oxygen Intake/Output Intake/Output: Intake & Output 11/06/23 11/07/23 11/08/23 11/09/23 23:59 23:59 23:59 23:59 Intake Total 1475 3532 160.3 Output Total 2900 2400 1050 2400 Balance -1425 1132 -889.7 -2400 Meds/Results Medications: Active Medications Generic Name Dose Route Start Last Admin Trade Name Freq PRN Reason Stop Dose Admin Acetaminophen 650 mg 11/04/23 17:58 11/07/23 22:05 Acetaminophen Elixir 325 Mg/10.15 Ml Udc FEED TUBE 650 mg Q4H PRN Administration Mild Pain (1-3) or Fever Albuterol/Ipratropium 3 ml 11/04/23 17:58 Ipratropium 0.5 Mg/Albuterol Sulfate 2.5 Mg Ampul.Neb 3 Ml INHALATION Q6HRT PRN Shortness Of Breath Alteplase, Recombinant 2 mg 10/26/23 23:59 11/02/23 02:06 Alteplase 2 Mg Vial (Cathflo) IV PUSH 2 mg ONCE PRN Administration Line Occlusion Bisacodyl 10 mg 11/02/23 09:00 11/09/23 10:17 Bisacodyl 10 Mg Suppository RECTAL 10 mg QAM SUNNY Administration Dextrose 12.5 gm 10/22/23 02:28 Dextrose 50% 25 Gm/50 Ml Syri
[2023-11-09] MEDS: WARFARIN (*PBKC) 5 MG TABLET PO (17:06)
[2023-11-09] MEDS: ENOXAPARIN 100 MG/ML SYRINGE SUB-Q (17:07)
[2023-11-09 17:10] LABS: Glucose Point of Care 244 mg/dl (65-105)
[2023-11-10 00:12] LABS: Glucose Point of Care 270 mg/dl (65-105)
[2023-11-10] MEDS: TOLNAFTATE 1% POWDER 45 GM BTL 1 APPLIC TOPICAL ×3 (01:01→21:52)
[2023-11-10] MEDS: INSULIN ASPART (*BKC) 100 UNITS/ML SUB-Q ×5 (01:01→23:03)
[2023-11-10 01:30] VITALS: PULSE 81; RESP 26; O2SAT 95
[2023-11-10] MEDS: ENOXAPARIN 100 MG/ML SYRINGE SUB-Q ×2 (02:45→15:59)
[2023-11-10 06:00] VITALS: BP 120/53; PULSE 74; RESP 18; TEMP 37.6; O2SAT 98
[2023-11-10 06:30] LABS: Glucose Point of Care 282 mg/dl (65-105)
[2023-11-10 06:32] LABS: Partial Thromboplastin Time 45.5 Seconds (22.3-36.8)
[2023-11-10] MEDS: GABAPENTIN 100 MG CAPSULE FEED TUBE ×3 (08:18→16:36)
[2023-11-10] MEDS: polyethylene glycoL 3350 17 GM POWD.PACK FEED TUBE ×2 (08:18→16:36)
[2023-11-10] MEDS: ROSUVASTATIN 10 MG TABLET FEED TUBE (08:18)
[2023-11-10] MEDS: PANTOPRAZOLE SODIUM IV 40 MG VIAL IV PUSH (08:19)
[2023-11-10] MEDS: EUCERIN CREAM 120 GM JAR 1 APPLIC TOPICAL ×2 (08:19→16:37)
[2023-11-10 10:17] LABS: INR 1.2; Prothrombin Time 15.5 Seconds (11.1-14.7)
[2023-11-10 12:03] LABS: Glucose Point of Care 287 mg/dl (65-105)
[2023-11-10 14:00] VITALS: BP 125/52; PULSE 73; RESP 18; TEMP 36.3; O2SAT 94
--- NOTE | 2023-11-10 16:23 | P.PNIM_ITS ---
Progress Note: A&P Assessment and Plan (1) Acute respiratory failure with hypoxia and hypercapnia: Code(s): J96.01 - Acute respiratory failure with hypoxia; J96.02 - Acute respiratory failure with hypercapnia Status: Acute Assessment and Plan: Patient presented with AMS, cough, and flu like symptoms. CT Ch/A/P showing bilateral ground glass and interstitial opacities at dependent and lower lung zones. He developed respiratory failure felt to be multifactorial from pulmonary edema and pneumonia requiring intubation 10/20. Vent management was per mailroom supervisor. Patient weaned down and ultimately able to be extubated 10/31/23. Patient is a CO2 retainer and has obesity hypoventilation syndrome. Pt is on RA in day and BIPAP at night (2) Septic shock: Code(s): A41.9 - Sepsis, unspecified organism; R65.21 - Severe sepsis with septic shock Status: Acute Assessment and Plan: Patient with septic shock secondary to Pseudomonas pneumonia and cellulitis of right lower extremity. Patient was adequately fluid-resuscitated and received additional IV fluids in light of worsening renal function and albumin. He was started on Levophed. He was started on broad spectrum abx after appropriate cultures obtained. MRSA screen was negative so vancomycin discontinued. He completed 5 day course of doxycycline. BCx negative. Sputum culture growing Pseudomonas pneumonia. Patient also had a positive urine Legionella antigen and he completed a course of antibiotics. Repeat blood culture negative. Urine culture negative. Nayak catheter was replaced. Repeat sputum culture (10/27) growing Pseudomonas which was pansensitive. Vancomycin stopped and meropenem continued. He has completed a course of meropenem. Septic shock resolved (3) Encephalopathy: Qualifiers: Encephalopathy type: toxic metabolic Qualified Code(s): G92.8 - Other toxic encephalopathy Code(s): G93.40 - Encephalopathy, unspecified Status: Acute Assessment and Plan: Encephalopathy could be related to septic shock, critical care illness, meropenem and/or residual sedation medications Ammonia level <9. CT brain showed no intracranial findings Patient still confused. Related to being off of his chronic diazepam and/or Gabapentin? Will continue to hold diazepam for now since admission on 10/20 (and off sedation since extubation 10/30) Repeat CT brain showing no acute findings. Meropenem off now and his mental status better. We also added back low dose Gabapentin Slowly improving (4) Pneumonia: Qualifiers: Laterality: unspecified laterality Lung location: lower lobe of lung Pneumonia type: due to unspecified organism Qualified Code(s): J18.9 - Pneumonia, unspecified organism Code(s): J18.9 - Pneumonia, unspecified organism Status: Acute Assessment and Plan: See above (5) Acute kidney injury: Code(s): N17.9 - Acute kidney failure, unspecified Status: Acute Assessment and Plan: Baseline creatinine 1.0-1.3. Creatinine was normal on admission but worsen to 2.5. Renal ultrasound showed normal kidneys and no hydronephrosis. Nephrology consulted and appreciate their recommendations. Patient was fluid positive and did respond to diuretic therpy. Cr is 1 (6) Cellulitis: Code(s): L03.90 - Cellulitis, unspecified Status: Acute Assessment and Plan: completed IV abx (7) Type 2 diabetes mellitus with hyperglycemia, with long-term current use of insulin: Code(s): E11.65 - Type 2 diabetes mellitus with hyperglyc
[2023-11-10] MEDS: WARFARIN (*PBKC) 5 MG TABLET PO (16:36)
[2023-11-10 18:05] LABS: Glucose Point of Care 305 mg/dl (65-105)
[2023-11-10] MEDS: SODIUM ZIRCONIUM CYCLOSILICATE 5 GM POWD.PACK FEED TUBE (18:21)
[2023-11-10 20:49] VITALS: BP 117/64; PULSE 74; RESP 20; TEMP 37.5; O2SAT 95
[2023-11-10 22:55] LABS: Glucose Point of Care 330 mg/dl (65-105)
[2023-11-10 23:45] VITALS: PULSE 71; RESP 23; O2SAT 95
[2023-11-11] MEDS: ENOXAPARIN 100 MG/ML SYRINGE SUB-Q (02:20)
[2023-11-11] MEDS: INSULIN ASPART (*BKC) 100 UNITS/ML SUB-Q ×2 (05:21→12:48)
[2023-11-11 05:30] LABS: Glucose Point of Care 309 mg/dl (65-105)
[2023-11-11 06:00] VITALS: BP 116/64; PULSE 69; RESP 16; TEMP 36.4; O2SAT 95
[2023-11-11 07:07] LABS: Anion Gap 7 mmol/L (4-12); Blood Urea Nitrogen 38 mg/dL (9-20); Calcium 9.9 mg/dL (8.4-10.2); Carbon Dioxide 31 mmol/L (22-30); Chloride 104 mmol/L (98-107); Estimated CRCL calculation 68 ml/min; Estimated Glomerular Filt Rate > 60; Glucose 329 mg/dL (65-110); INR 1.2; Potassium 4.1 mmol/L (3.4-5.0); Prothrombin Time 15.5 Seconds (11.1-14.7); Sodium 142 mmol/L (137-145)
[2023-11-11] MEDS: PANTOPRAZOLE SODIUM IV 40 MG VIAL IV PUSH (09:06)
[2023-11-11] MEDS: BISACODYL 10 MG SUPPOSITORY RECTAL (09:06)
[2023-11-11] MEDS: TOLNAFTATE 1% POWDER 45 GM BTL 1 APPLIC TOPICAL (09:07)
[2023-11-11] MEDS: EUCERIN CREAM 120 GM JAR 1 APPLIC TOPICAL (09:07)
[2023-11-11] MEDS: GABAPENTIN 100 MG CAPSULE FEED TUBE ×2 (09:07→12:48)
[2023-11-11] MEDS: polyethylene glycoL 3350 17 GM POWD.PACK FEED TUBE (09:07)
[2023-11-11] MEDS: ROSUVASTATIN 10 MG TABLET FEED TUBE (09:07)
--- NOTE | 2023-11-11 10:58 | PCNFU ---
Nutrition Follow-Up Complete: Inadequate energy intake related to sepsis, PNA as evidenced by mechanical ventilation, need for full tube feeding, possible ileus goal: Meet estimated nutrition needs Patient is meeting current goal. We will continue current goal. Pt current nutrition is Glucerna 1.2 at 70 ml/hr. Last recorded weight is 106.8 kg,up from 105 kg on 11/09 Bowel Motility: +BM reported 11/10 Labs Reviewed:Glu 329, BUN 38 Meds Noted: Protonix, NovoLog, Lantus, Miralax, Crestor. Skin: Deep Tissue-right heel. Additional Notes: Patient remains on a G tube feedings of Glucerna 1.2 at 70 ml/hr. Tube feedings are being tolerated per nursing. Flex BID flush providing an additional 160 kcal/5 gm protein/14 gm glutamine/14 gm arginine. Total Nutrition: 2008 kcal/97 gm protein/1240 ml water. Flush 225 ml q 4 hours. Agree with diet orders. Monitor tube feeding orders, tolerance, labs, weights, stool patterns, plan of care Follow up Tuesday and Tuesday.
[2023-11-11] MEDS: SODIUM ZIRCONIUM CYCLOSILICATE 5 GM POWD.PACK FEED TUBE (11:03)
[2023-11-11 12:32] LABS: Glucose Point of Care 342 mg/dl (65-105)
--- NOTE | 2023-11-11 13:27 | PM.DS ---
DS: Admitting Diagnosis Discharge Date 11/11/2023 Admitting Diagnosis Septic shock DS: Discharge Diagnosis Discharge Diagnosis (1) Acute respiratory failure with hypoxia and hypercapnia: Code(s): J96.01 - Acute respiratory failure with hypoxia; J96.02 - Acute respiratory failure with hypercapnia Status: Acute (2) Septic shock: Code(s): A41.9 - Sepsis, unspecified organism; R65.21 - Severe sepsis with septic shock Status: Acute (3) Encephalopathy: Qualifiers: Encephalopathy type: toxic metabolic Qualified Code(s): G92.8 - Other toxic encephalopathy Code(s): G93.40 - Encephalopathy, unspecified Status: Acute (4) Pneumonia: Qualifiers: Laterality: unspecified laterality Lung location: lower lobe of lung Pneumonia type: due to unspecified organism Qualified Code(s): J18.9 - Pneumonia, unspecified organism Code(s): J18.9 - Pneumonia, unspecified organism Status: Acute (5) Acute kidney injury: Code(s): N17.9 - Acute kidney failure, unspecified Status: Acute (6) Cellulitis: Code(s): L03.90 - Cellulitis, unspecified Status: Acute (7) Type 2 diabetes mellitus with hyperglycemia, with long-term current use of insulin: Code(s): E11.65 - Type 2 diabetes mellitus with hyperglycemia; Z79.4 - watermelon inspector (current) use of insulin Status: Acute (8) Atrial fibrillation: Onset Date: 04/20/17 Code(s): I48.91 - Unspecified atrial fibrillation Status: Chronic (9) CHF (congestive heart failure): Code(s): I50.9 - Heart failure, unspecified Status: Inactive (10) Chronic venous stasis dermatitis of both lower extremities: Code(s): I87.2 - Venous insufficiency (chronic) (peripheral) Status: Inactive (11) Ileus: Code(s): K56.7 - Ileus, unspecified Status: Acute (12) Elevated lipase: Code(s): R74.8 - Abnormal levels of other serum enzymes Status: Acute (13) Dysphagia: Code(s): R13.10 - Dysphagia, unspecified Status: Inactive (14) Hypernatremia: Code(s): E87.0 - Hyperosmolality and hypernatremia Status: Acute DS: Summary Hospital Course Hospital Course: # Acute respiratory failure with hypoxia and hypercapnia: Patient presented with AMS, cough, and flu like symptoms. CT Ch/A/P showing bilateral ground glass and interstitial opacities at dependent and lower lung zones. He developed respiratory failure felt to be multifactorial from pulmonary edema and pneumonia requiring intubation 10/20. Vent management was per turbogenerator operator. Patient weaned down and ultimately able to be extubated 10/31/23. Patient is a CO2 retainer and has obesity hypoventilation syndrome. Pt is on RA in day and BIPAP at night which will be continued # Septic shock: Patient with septic shock secondary to Pseudomonas pneumonia and cellulitis of right lower extremity. Patient was adequately fluid-resuscitated and received additional IV fluids in light of worsening renal function and albumin. He was started on Levophed. He was started on broad spectrum antibiotics after appropriate cultures obtained. MRSA screen was negative so vancomycin discontinued. He completed 5 day course of doxycycline. BCx negative. Sputum culture growing Pseudomonas pneumonia. Patient also had a positive urine Legionella antigen and he completed a course of antibiotics. Repeat blood culture negative. Urine culture negative. Nayak catheter was replaced. Repeat sputum culture (10/27) growing Pseudomonas which was pansensitive. Vancomycin stopped and meropenem continued. He has completed a course of meropenem. Septic shock resolved # Encephalopathy: Encephalopathy could be related to septic shock, critical care illness, meropenem and/or residual sedation medications Ammonia level <9. CT brain showed no intracranial findings Patient still confused. Related to being off of his chronic diazepam and/or Gabapent
== END 2023-11-11 14:45 | disposition swing bed (61) | DRG 870 ==
LOC: ANHED 23:07 → ANHICU 23:25 → ANH2MED 11-04 11:19
PROVIDERS: Family Medicine; Internal Medicine; Internal Medicine Gastroenterology; Internal Medicine Nephrology; Admitting Provider Internal Medicine; Emergency Provider Emergency Medicine; PCP Internal Medicine Cardiovascular Disease; Visit Provider Internal Medicine
PROC: 0DH63UZ Insertion of Feeding Device into Stomach, Percutaneous Approach (ICD-10-PCS; CPT 43246; principal; 2023-11-08 15:00)
DX: A41.9 Sepsis, unspecified organism (principal); J15.1 Pneumonia due to Pseudomonas; J96.01 Acute respiratory failure with hypoxia; R65.21 Severe sepsis with septic shock; J96.02 Acute respiratory failure with hypercapnia; G93.41 Metabolic encephalopathy; I50.32 Chronic diastolic (congestive) heart failure; E87.1 Hypo-osmolality and hyponatremia; B37.49 Other urogenital candidiasis; L03.115 Cellulitis of right lower limb; L97.919 Non-pressure chronic ulcer of unspecified part of right lower leg with unspecified severity; K56.7 Ileus, unspecified; N17.9 Acute kidney failure, unspecified; E87.0 Hyperosmolality and hypernatremia; E66.2 Morbid (severe) obesity with alveolar hypoventilation; I48.91 Unspecified atrial fibrillation; I25.10 Atherosclerotic heart disease of native coronary artery without angina pectoris; I11.0 Hypertensive heart disease with heart failure; Z20.822 Contact with and (suspected) exposure to COVID-19; E11.42 Type 2 diabetes mellitus with diabetic polyneuropathy; E83.42 Hypomagnesemia; E83.39 Other disorders of phosphorus metabolism; I87.2 Venous insufficiency (chronic) (peripheral); R13.10 Dysphagia, unspecified; I27.20 Pulmonary hypertension, unspecified; Z79.4 Long term (current) use of insulin; Z79.01 Long term (current) use of anticoagulants; Z95.1 Presence of aortocoronary bypass graft; Z95.0 Presence of cardiac pacemaker; Z87.891 Personal history of nicotine dependence; Z68.35 Body mass index [BMI] 35.0-35.9, adult
CPT/HCPCS: 31500; 36415; 36556; 36600; 43246; 70450; 71045; 71250; 71260; 74018; 74019; 74176; 74177; 76775; 80048; 80053; 80069; 80202; 80307; 81001; 82140; 82375; 82436; 82550; 82565; 82570; 82803; 82805; 82948; 83050; 83605; 83690; 83735; 83880; 84100; 84133; 84145; 84300; 84443; 84484; 85025; 85027; 85610; 85730; 85999; 86140; 86704; 86706; 87040; 87070; 87077; 87086; 87088; 87106; 87186; 87205; 87340; 87449; 87637; 87641; 87899; 92507; 92526; 92610; 92611; 93005; 93970; 94002; 94003; 94640; 96365; 96366; 96367; 96368; 96375; 97110; 97162; 97166; 97530; 97535; 99291; A9270; C1751; C8929; J0613; J0690; J0692; J1644; J1650; J1815; J1939; J2185; J2250; J2470; J2543; J2704; J2765; J2997; J3010; J3370; J3475; J7030; J7040; J7060; J7120; P9047; Q9957; Q9967

== ENCOUNTER 2023-11-11 15:39 | Inpatient (IN) | payer MEDICARE, SELFPAY ==
--- NOTE | ~2023-11-11 | XR_ITS ---
EXAMINATION: XR chest 1V portable DATE: 11/12/2023 12:38 INDICATION: Shortness of breath. TECHNIQUE: A single frontal view of the chest was obtained. COMPARISON: Chest single view 11/02/2023 FINDINGS: There is no pneumonia, pleural effusion, or pneumothorax. The heart size is normal. Median sternotomy wires and mediastinal surgical clips are seen, likely from prior coronary artery bypass gr afting. There is a left chest pacer with lead in right ventricle. IMPRESSION: 1. No acute cardiopulmonary disease. Reviewed, dictated and finalized at location A.
--- NOTE | 2023-11-11 15:40 | PC.NURSE ---
Patient arrived to unit on stretcher via ambulance service, accompanied by geographic area intelligence officer. Patient required 4 persons to slide from stretcher to bed. Patient admitted to room 206. Patient educated on use of call light and bed controls. Patient unable to comprehend education related to hospital policies at this time. Folders placed in patient room with admission and therapy information.
[2023-11-11 16:00] VITALS: BP 132/67; PULSE 75; RESP 18; TEMP 36.2; O2SAT 95
[2023-11-11 16:49] LABS: Glucose Point of Care 354 mg/dl (65-105)
[2023-11-11 16:50] VITALS: BMI 34.6
[2023-11-11] MEDS: IPRATROPIUM 0.5 MG/ALBUTEROL SULFATE 2.5 MG AMPUL.NEB 3 ML INHALATION (18:01)
[2023-11-11] MEDS: WARFARIN (*PBKC) 5 MG TABLET FEED TUBE (18:02)
[2023-11-11] MEDS: GABAPENTIN 100 MG CAPSULE FEED TUBE (18:02)
[2023-11-11 18:04] VITALS: PULSE 79; RESP 17; O2SAT 93
[2023-11-11] MEDS: INSULIN HUMAN LISPRO (*BKC) 1,000 UNITS/10 ML VIAL SUB-Q (18:06)
[2023-11-11] MEDS: INSULIN HUMAN LISPRO (*BKC) 1,000 UNITS/10 ML VIAL 12 UNITS SUB-Q (18:07)
[2023-11-11 18:13] VITALS: PULSE 71; RESP 18; O2SAT 95
[2023-11-11 20:47] VITALS: PULSE 76; RESP 32; O2SAT 93
[2023-11-11] MEDS: FAMOTIDINE 20 MG TABLET FEED TUBE (20:52)
[2023-11-11] MEDS: INSULIN GLARGINE (*BKC) 1,000 UNITS/10 ML VIAL 70 UNITS SUB-Q (20:54)
[2023-11-11 20:58] LABS: Glucose Point of Care 327 mg/dl (65-105)
[2023-11-11] MEDS: traZODone HCL 25 MG TABLET PO (22:20)
[2023-11-12] VITALS: BP 156/44; PULSE 93; RESP 16; TEMP 36.6; O2SAT 93
[2023-11-12] MEDS: INSULIN HUMAN LISPRO (*BKC) 1,000 UNITS/10 ML VIAL SUB-Q ×5 (00:14→23:22)
[2023-11-12 00:15] LABS: Glucose Point of Care 308 mg/dl (65-105)
[2023-11-12] MEDS: INSULIN HUMAN LISPRO (*BKC) 1,000 UNITS/10 ML VIAL 12 UNITS SUB-Q ×2 (00:15→06:18)
--- NOTE | 2023-11-12 00:40 | PCRCNOTE ---
Mr Alma has had an increased RR while on bipap. Thought after his meds and getting used to mask his rate would decrease, but its been increasing. Called PROSTHODONTIST/OWNER and left a message. Took pt off bipap and rate is in 20s instead of high 30s. Will keep bipap on standby until I hear back from PROSTHODONTIST/OWNER. RN aware
[2023-11-12 06:10] LABS: INR 1.1; Prothrombin Time 11.7 Seconds (9.50-12.1)
[2023-11-12 06:18] LABS: Glucose Point of Care 332 mg/dl (65-105)
[2023-11-12 08:00] VITALS: BP 130/66; PULSE 87; RESP 32; TEMP 36.7; O2SAT 93
[2023-11-12] MEDS: polyethylene glycoL 3350 17 GM POWD.PACK FEED TUBE ×2 (08:46→16:54)
[2023-11-12] MEDS: GABAPENTIN 100 MG CAPSULE FEED TUBE ×3 (08:46→16:54)
[2023-11-12] MEDS: ROSUVASTATIN 10 MG TABLET FEED TUBE (08:46)
[2023-11-12] MEDS: FAMOTIDINE 20 MG TABLET FEED TUBE ×2 (08:46→20:54)
--- NOTE | 2023-11-12 09:38 | PM.IMHP ---
H&P: HPI History of Present Illness Date/Time: 11/12/23 09:38 Chief Complaint: weakness Narrative: This is a 73-year-old male with a significant past medical history of anemia, atrial fibrillation, coronary artery disease, venous stasis dermatitis, diabetes mellitus, diabetic peripheral neuropathy, hypertension, hyperlipidemia, obesity, obstructive sleep apnea, sick sinus syndrome status post pacemaker, peripheral artery disease who presents to [facility] for swing program after recent hospitalization. Patient was recently admitted at [facility] on 10/21/2023 with septic shock related to community-acquired pneumonia and cellulitis which subsequently he ended up in the intensive care unit on Levophed and was intubated due to decline in respiratory status. He initially had an echocardiogram done which shown normal LV systolic function with an estimated EF of 60-65% with mild mitral valve and tricuspid valve regurgitation. Patient was started on vancomycin, Zosyn, and doxycycline. nephrology was consulted On 10/1923 due to acute kidney injury and low urine output with knee for diuresis due to being 9 L positive on fluid balance And started receiving Bumex. he was extubated on 10/31/2023 and considering he is a CO2 retainer due to obesity related hypoventilation syndrome and requiring BiPAP at night. sputum culture shows Pseudomonas pneumonia and urine Legionella antigen was positive, antibiotics were changed to vancomycin and meropenem for better coverage. He did have some acute encephalopathy which was deemed likely secondary to sedation. Postextubation he did have a Modified barium swallow study which he did fail x2 and GI was consulted for G-tube placement which was placed on 11/08/2023. Patient was started on tube feeding. Considering the long intensive care stay and hospitalization, patient develop generalized weakness and deconditioning. He has been at least a moderate assist requiring additional rehab time. Review of Systems Review of Systems: ROS unobtainable: Yes unobtainable due to mental status PMFSH Past Medical History Medical History Anemia Anticoagulant long-term use Arthritis Atrial fibrillation (04/20/17) On chronic anticoagulation with warfarin CAD (coronary artery disease), autologous vein bypass graft Candidiasis of other urogenital sites Chronic venous stasis dermatitis of both lower extremities Diabetes mellitus Diabetic peripheral neuropathy Erectile dysfunction Essential hypertension Hemochromatosis However patient's iron studies demonstrate a low iron level (12/2020), normal transferrin (in 2019) and normal hemoglobin and now actually has what appears bandemia chronic disease Mixed hyperlipidemia (04/20/17) Obesity (BMI 35.0-39.9 without comorbidity) SAKSHI on CPAP (03/2019) CPAP of 7 Pacemaker Peripheral artery disease Rhabdomyolysis Sick sinus syndrome (04/18/17) Urge urinary incontinence Surgical History Surgical History H/O right heart catheterization Hx of CABG (~2004) Four-vessel CABG Pacemaker (04/2015) Single-chamber MRI compatible pacemaker Family History Family History Father Acute myocardial infarction Son Family history of obesity Mother Uterine cancer Social History Social History Social History: He has been since 1997 and he he lives in his own home. He ambulates with a walker. His son comes and checks on him daily, and will be his surrogate Diego rosenthal. He is retired from the [employer]. He wishes to be a full code at this time. Smoking packs per day: 2.5 Smoking cigarettes per day: 50.0 Years smoked: 50 Smoking pack-years: 125.00 Smoking status: Current every day smoker Tobacco type: cigarettes Smokeless tobacco us
[2023-11-12 10:40] LABS: Hemoglobin A1C 9.6 % (<5.7)
[2023-11-12 11:52] LABS: Glucose Point of Care 332 mg/dl (65-105)
[2023-11-12] MEDS: INSULIN HUMAN LISPRO (*BKC) 1,000 UNITS/10 ML VIAL 18 UNITS SUB-Q ×3 (12:00→23:21)
[2023-11-12 13:21] LABS: Base Excess ABG 2.2 mmol/L (0-2); HCO3 ABG 26.2 mmol/L (23-29); Oxygen Content ABG 17.1 %vol (16.0-22.0); Oxygen Saturation ABG 92.5 % (95-97); Oxyhemoglobin 91.6 % (94-100); PCO2 ABG 38.9 mmHg (35-45); PO2 ABG 67.8 mmHg (75-85); pH ABG 7.45 (7.35-7.45)
[2023-11-12 13:22] LABS: Device BIPAP; Expiratory Pressure 2 cmH2O; Inspiratory Pressure 1 cmH2O; Modified Allen's Test Pass; Site Drawn RIGHT RADIAL
[2023-11-12] MEDS: BUMETANIDE 1 MG TABLET FEED TUBE (15:17)
[2023-11-12 15:31] VITALS: BP 124/84; PULSE 82; RESP 36; TEMP 36.3; O2SAT 92
[2023-11-12] MEDS: WARFARIN (*PBKC) 2 MG TABLET 4 MG FEED TUBE (16:55)
[2023-11-12 17:39] LABS: Glucose Point of Care 420 mg/dl (65-105)
--- NOTE | 2023-11-12 18:26 | PC.NURSE ---
1814 Rosalee Ramirez, MEDICAL RADIATION DOSIMETRIST/Hospitalist, notified that patient's blood sugar was 420. New orders received to give sliding scale insulin for blood sugar of 400 and retake with next due bedside glucoscan.
[2023-11-12 18:56] VITALS: RESP 28
[2023-11-12] MEDS: traZODone HCL 25 MG TABLET PO (20:54)
[2023-11-12] MEDS: INSULIN GLARGINE (*BKC) 1,000 UNITS/10 ML VIAL 80 UNITS SUB-Q (20:54)
[2023-11-12 20:58] LABS: Glucose Point of Care 364 mg/dl (65-105)
[2023-11-12 22:22] VITALS: PULSE 91; RESP 24; O2SAT 77
[2023-11-12 23:23] LABS: Glucose Point of Care 348 mg/dl (65-105)
[2023-11-13] VITALS: BP 107/54; PULSE 78; RESP 20; TEMP 36.4; O2SAT 94
[2023-11-13 02:39] VITALS: PULSE 75; RESP 24; O2SAT 93
[2023-11-13] MEDS: INSULIN HUMAN LISPRO (*BKC) 1,000 UNITS/10 ML VIAL SUB-Q ×4 (06:26→23:58)
[2023-11-13] MEDS: INSULIN HUMAN LISPRO (*BKC) 1,000 UNITS/10 ML VIAL 18 UNITS SUB-Q ×4 (06:26→23:58)
[2023-11-13 06:31] LABS: Glucose Point of Care 377 mg/dl (65-105)
[2023-11-13 07:40] VITALS: BP 107/52; PULSE 67; RESP 28; TEMP 36.5; O2SAT 94
[2023-11-13 08:11] LABS: INR 1.1
[2023-11-13] MEDS: amLODIPine BESYLATE 5 MG TABLET PO (09:37)
[2023-11-13] MEDS: FAMOTIDINE 20 MG TABLET FEED TUBE ×2 (09:37→21:01)
[2023-11-13] MEDS: polyethylene glycoL 3350 17 GM POWD.PACK FEED TUBE (09:37)
[2023-11-13] MEDS: GABAPENTIN 100 MG CAPSULE FEED TUBE ×3 (09:37→18:02)
[2023-11-13] MEDS: ROSUVASTATIN 10 MG TABLET FEED TUBE (09:37)
[2023-11-13] MEDS: INSULIN GLARGINE (*BKC) 1,000 UNITS/10 ML VIAL 26 UNITS SUB-Q (09:38)
[2023-11-13 12:33] LABS: Glucose Point of Care 325 mg/dl (65-105)
[2023-11-13] MEDS: ERYTHROMYCIN OPHTH OINTMENT 3.5 GM TUBE 1 APPLIC EACH EYE ×3 (13:53→21:01)
[2023-11-13 16:35] VITALS: BP 105/60; PULSE 76; RESP 25; TEMP 36.6; O2SAT 95
[2023-11-13] MEDS: WARFARIN (*PBKC) 2 MG TABLET 4 MG FEED TUBE (18:06)
[2023-11-13 18:10] LABS: Glucose Point of Care 304 mg/dl (65-105)
[2023-11-13 20:43] VITALS: PULSE 78; RESP 24; O2SAT 93
[2023-11-13] MEDS: traZODone HCL 25 MG TABLET PO (21:01)
[2023-11-13] MEDS: INSULIN GLARGINE (*BKC) 1,000 UNITS/10 ML VIAL 80 UNITS SUB-Q (21:01)
[2023-11-13 21:05] LABS: Glucose Point of Care 309 mg/dl (65-105)
[2023-11-13 22:04] VITALS: PULSE 68; RESP 24; O2SAT 93
[2023-11-14] VITALS (7 sets, daily range): BP systolic 107–125; BP diastolic 47–53; PULSE 70–85; RESP 20–25; TEMP 36.4–36.8; O2SAT 93–97
[2023-11-14 00:56] LABS: Glucose Point of Care 297 mg/dl (65-105)
[2023-11-14 05:55] LABS: INR 1.1; Prothrombin Time 11.9 Seconds (9.50-12.1)
[2023-11-14 06:24] LABS: Glucose Point of Care 323 mg/dl (65-105)
[2023-11-14] MEDS: INSULIN HUMAN LISPRO (*BKC) 1,000 UNITS/10 ML VIAL 18 UNITS SUB-Q ×2 (06:25→18:22)
[2023-11-14] MEDS: INSULIN HUMAN LISPRO (*BKC) 1,000 UNITS/10 ML VIAL SUB-Q ×3 (06:25→18:22)
--- NOTE | 2023-11-14 08:52 | P.PNIM_ITS ---
Progress Note: A&P Assessment and Plan (1) Physical deconditioning: Code(s): R53.81 - Other malaise Status: Acute Assessment and Plan: 11/12/23: * increased weakness due to long hospital stay in ICU * PT and OT ordered 11/14/23: * Continue PT and OT (2) Diabetes mellitus: Code(s): E11.9 - Type 2 diabetes mellitus without complications Status: Chronic Assessment and Plan: 11/12/23: * Blood sugars ranging 308-332 * Hgb A1C 9.6 * Accu checks q.6 hours * high-dose SSI ordered q.6 hours * Lantus 80 units ordered for tonight * mealtime dose of 18 units ordered q.6 hours * hypoglycemic protocol in place * currently getting Glucerna 1.2cal tube feeding via G-tube 11/14/23: * Blood glucose ranging 297-377 * continue Lantus 80 units at hs * Continue Lantus 35 units in a.m. * Will consult quality control manager for bolus tube feedings instead of continuous due to lack of blood glucose control. * Continue mealtime dose of 18 units AC/HS * Switch to AC/HS accu checks and SSI (3) Hypertension: Code(s): I10 - Essential (primary) hypertension Status: Acute Assessment and Plan: 11/12/23: * blood pressure ranging 130/66 to 156/44 * currently not on any medications for blood pressure at home * amlodipine 5 mg ordered 11/14/23: * No change to current treatment plan (4) Atrial fibrillation: Onset Date: 04/20/17 Code(s): I48.91 - Unspecified atrial fibrillation Status: Chronic Assessment and Plan: 11/12/23: * continue warfarin * not currently on any rate control medication * continue to monitor 11/14/23: * No change to current treatment plan (5) Respiratory failure with hypoxia and hypercapnia: Qualifiers: Chronicity: acute Qualified Code(s): J96.01 - Acute respiratory failure with hypoxia; J96.02 - Acute respiratory failure with hypercapnia Code(s): J96.91 - Respiratory failure, unspecified with hypoxia; J96.92 - Respiratory failure, unspecified with hypercapnia Status: Chronic Assessment and Plan: 11/12/23: * patient was noted to have obesity related hypoventilation with CO2 retention * continue BiPAP at night or when napping * of note patient had a long duration of being on mechanical ventilation during his hospitalization * CXR today was reported as normal however shown some pulmonary edema changes when reviewed * Will give 1mg of Bumex for added diuresis * Continue bipap at night 11/14/23: * No change to current treatment plan (6) Acute encephalopathy: Code(s): G93.40 - Encephalopathy, unspecified Status: Acute Assessment and Plan: 11/12/23: * Patient has had altered mental status since his extubation in the ICU at [place]. His altered mental status was thought to be due to sedative buildup however he has been off of sedatives since the 23 of October. * opens eyes to voice however falls right back to sleep, not much interaction today. he was reported to be confused and pulling at his PEG tube in his Nayak catheter through the night. He does have sleep apnea and obesity related hypoventilation with CO2 retention. He slept with the BiPAP off most of the night per respiratory therapist due to tachypnea. On assessment today I found him sleeping in the bed without his BiPAP on and initiated his BiPAP again. * ABG showed a normal pH of 7.45, pCO2 was normal at 38.9, PO2 was 67.8, bicarb 26.2. * Last CT was reported as normal 11/14/23: * Continue neuro checks * More awake and alert today. Time Spe
--- NOTE | 2023-11-14 08:52 | PM.IMPN ---
Progress Note: A&P Assessment and Plan (1) Physical deconditioning: Code(s): R53.81 - Other malaise Status: Acute Assessment and Plan: 11/12/23: increased weakness due to long hospital stay in ICU PT and OT ordered 11/14/23: Continue PT and OT (2) Diabetes mellitus: Code(s): E11.9 - Type 2 diabetes mellitus without complications Status: Chronic Assessment and Plan: 11/12/23: Blood sugars ranging 308-332 Hgb A1C 9.6 Accu checks q.6 hours high-dose SSI ordered q.6 hours Lantus 80 units ordered for tonight mealtime dose of 18 units ordered q.6 hours hypoglycemic protocol in place currently getting Glucerna 1.2cal tube feeding via G-tube 11/14/23: Blood glucose ranging 297-377 continue Lantus 80 units at hs Continue Lantus 35 units in a.m. Will consult film developer for bolus tube feedings instead of continuous due to lack of blood glucose control. Continue mealtime dose of 18 units AC/HS Switch to AC/HS accu checks and SSI (3) Hypertension: Code(s): I10 - Essential (primary) hypertension Status: Acute Assessment and Plan: 11/12/23: blood pressure ranging 130/66 to 156/44 currently not on any medications for blood pressure at home amlodipine 5 mg ordered 11/14/23: No change to current treatment plan (4) Atrial fibrillation: Onset Date: 04/20/17 Code(s): I48.91 - Unspecified atrial fibrillation Status: Chronic Assessment and Plan: 11/12/23: continue warfarin not currently on any rate control medication continue to monitor 11/14/23: No change to current treatment plan (5) Respiratory failure with hypoxia and hypercapnia: Qualifiers: Chronicity: acute Qualified Code(s): J96.01 - Acute respiratory failure with hypoxia; J96.02 - Acute respiratory failure with hypercapnia Code(s): J96.91 - Respiratory failure, unspecified with hypoxia; J96.92 - Respiratory failure, unspecified with hypercapnia Status: Chronic Assessment and Plan: 11/12/23: patient was noted to have obesity related hypoventilation with CO2 retention continue BiPAP at night or when napping of note patient had a long duration of being on mechanical ventilation during his hospitalization CXR today was reported as normal however shown some pulmonary edema changes when reviewed Will give 1mg of Bumex for added diuresis Continue bipap at night 11/14/23: No change to current treatment plan (6) Acute encephalopathy: Code(s): G93.40 - Encephalopathy, unspecified Status: Acute Assessment and Plan: 11/12/23: Patient has had altered mental status since his extubation in the ICU at [place]. His altered mental status was thought to be due to sedative buildup however he has been off of sedatives since the 23 of October. opens eyes to voice however falls right back to sleep, not much interaction today. he was reported to be confused and pulling at his PEG tube in his Nayak catheter through the night. He does have sleep apnea and obesity related hypoventilation with CO2 retention. He slept with the BiPAP off most of the night per respiratory therapist due to tachypnea. On assessment today I found him sleeping in the bed without his BiPAP on and initiated his BiPAP again. ABG showed a normal pH of 7.45, pCO2 was normal at 38.9, PO2 was 67.8, bicarb 26.2. Last CT was reported as normal 11/14/23: Continue neuro checks More awake and alert today. Time Spent With Patient Time with patient: 25 - 35 minutes Subjective Date/time seen: 11/14/23 08:52 Interval history: Interval history: This is a 73-year-old male with a significant past medical history of anemia, atrial fibrillation, coronary artery disease, venous stasis dermatitis, diabetes mellitus, diabetic peripheral neuropathy, hypertension, hyperlipidemia, obesity, obstructive sleep apnea, sick sinus syndrome status post pacemaker, peripheral arter
[2023-11-14] MEDS: INSULIN GLARGINE (*BKC) 1,000 UNITS/10 ML VIAL 35 UNITS SUB-Q (09:45)
[2023-11-14] MEDS: FAMOTIDINE 20 MG TABLET FEED TUBE ×2 (09:48→20:09)
[2023-11-14] MEDS: GABAPENTIN 100 MG CAPSULE FEED TUBE ×3 (09:48→17:21)
[2023-11-14] MEDS: ROSUVASTATIN 10 MG TABLET FEED TUBE (09:48)
[2023-11-14] MEDS: amLODIPine BESYLATE 5 MG TABLET PO (09:48)
[2023-11-14] MEDS: ERYTHROMYCIN OPHTH OINTMENT 3.5 GM TUBE 1 APPLIC EACH EYE ×4 (09:48→20:09)
[2023-11-14 12:26] LABS: Glucose Point of Care 274 mg/dl (65-105)
[2023-11-14] MEDS: WARFARIN (*PBKC) 2 MG TABLET 6 MG FEED TUBE (17:21)
[2023-11-14 17:56] LABS: Glucose Point of Care 201 mg/dl (65-105)
--- NOTE | 2023-11-14 20:10 | PC.NURSE ---
New dietary orders received from cardiac tech. Orders's approved by Goran Ramirez NP and entered.
[2023-11-14 20:16] LABS: Glucose Point of Care 238 mg/dl (65-105)
[2023-11-14] MEDS: INSULIN GLARGINE (*BKC) 1,000 UNITS/10 ML VIAL 80 UNITS SUB-Q (20:20)
--- NOTE | 2023-11-14 22:45 | PC.NURSE ---
Patient alert and awake, refuses to wear bi-pap, when staff attempt to place mask patient removes, education attempted on importance of wearing Bi-pap ineffective, multiple attempt made.
[2023-11-15] VITALS: BP 103/53; PULSE 72; RESP 18; TEMP 36.4; O2SAT 95
[2023-11-15 05:40] LABS: INR 1.2
[2023-11-15] MEDS: ERYTHROMYCIN OPHTH OINTMENT 3.5 GM TUBE 1 APPLIC EACH EYE ×5 (06:15→20:41)
[2023-11-15 06:30] VITALS: PULSE 80; RESP 20; O2SAT 94
[2023-11-15 08:00] VITALS: BP 136/54; PULSE 78; RESP 20; TEMP 36.1; O2SAT 97
[2023-11-15] MEDS: ROSUVASTATIN 10 MG TABLET FEED TUBE (09:13)
[2023-11-15] MEDS: GABAPENTIN 100 MG CAPSULE FEED TUBE ×3 (09:13→17:37)
[2023-11-15] MEDS: FAMOTIDINE 20 MG TABLET FEED TUBE ×2 (09:14→20:40)
[2023-11-15] MEDS: amLODIPine BESYLATE 5 MG TABLET PO (09:14)
[2023-11-15] MEDS: INSULIN HUMAN LISPRO (*BKC) 1,000 UNITS/10 ML VIAL 18 UNITS SUB-Q ×3 (09:15→17:35)
[2023-11-15] MEDS: INSULIN HUMAN LISPRO (*BKC) 1,000 UNITS/10 ML VIAL SUB-Q ×3 (09:17→17:36)
[2023-11-15] MEDS: INSULIN GLARGINE (*BKC) 1,000 UNITS/10 ML VIAL 35 UNITS SUB-Q (09:18)
[2023-11-15 09:22] LABS: Glucose Point of Care 291 mg/dl (65-105)
[2023-11-15 09:30] VITALS: PULSE 79; RESP 22; O2SAT 95
--- NOTE | 2023-11-15 13:08 | PCPTNOTE ---
pt not seen in pm. attempted contact and pt only opens eyes and close when his name is mentioned. Notified nursing on status.
[2023-11-15 13:12] LABS: Glucose Point of Care 270 mg/dl (65-105)
[2023-11-15 16:00] VITALS: BP 132/74; PULSE 78; RESP 18; TEMP 36.1; O2SAT 95
[2023-11-15 17:35] LABS: Glucose Point of Care 280 mg/dl (65-105)
[2023-11-15] MEDS: WARFARIN (*PBKC) 2 MG TABLET 4 MG FEED TUBE (17:40)
--- NOTE | 2023-11-15 19:10 | PC.NURSE ---
Patient sleeping, bi-pap applied
[2023-11-15 20:00] VITALS: PULSE 78; RESP 18; O2SAT 95
[2023-11-15] MEDS: traZODone HCL 25 MG TABLET PO (20:40)
[2023-11-15] MEDS: INSULIN GLARGINE (*BKC) 1,000 UNITS/10 ML VIAL 80 UNITS SUB-Q (20:47)
[2023-11-15 20:48] LABS: Glucose Point of Care 282 mg/dl (65-105)
[2023-11-15] MEDS: NYSTATIN 100,000 UNITS/ML SUSP 5 ML ORAL.SUSP PO (20:49)
--- NOTE | 2023-11-15 22:19 | PC.NURSE ---
Bi-pap removed for patient to have a break.
--- NOTE | 2023-11-15 22:45 | PC.NURSE ---
Bi-pap reapplied
[2023-11-16] VITALS: BP 99/50; PULSE 68; RESP 20; TEMP 36.6; O2SAT 93
--- NOTE | 2023-11-16 04:00 | PC.NURSE ---
Bi-PAP removed for patient to have a break.
[2023-11-16] MEDS: ERYTHROMYCIN OPHTH OINTMENT 3.5 GM TUBE 1 APPLIC EACH EYE ×5 (04:15→20:15)
--- NOTE | 2023-11-16 05:00 | PC.NURSE ---
Bi-pap reapplied.
[2023-11-16 05:30] VITALS: PULSE 68; RESP 20; O2SAT 93
[2023-11-16 05:34] LABS: INR 1.3
--- NOTE | 2023-11-16 06:09 | PC.NURSE ---
Patient awake, began to attempt to remove mask, mask removed.
--- NOTE | 2023-11-16 06:18 | PC.NURSE ---
patient agrees to wear Bi-pap at this time.
[2023-11-16 07:38] LABS: Glucose Point of Care 322 mg/dl (65-105)
[2023-11-16] MEDS: INSULIN HUMAN LISPRO (*BKC) 1,000 UNITS/10 ML VIAL 18 UNITS SUB-Q ×3 (07:41→17:23)
[2023-11-16] MEDS: INSULIN HUMAN LISPRO (*BKC) 1,000 UNITS/10 ML VIAL SUB-Q ×3 (07:42→17:23)
[2023-11-16] MEDS: INSULIN GLARGINE (*BKC) 1,000 UNITS/10 ML VIAL 35 UNITS SUB-Q (07:43)
[2023-11-16 08:00] VITALS: BP 90/51; PULSE 70; RESP 26; TEMP 36.4; O2SAT 96
[2023-11-16] MEDS: FAMOTIDINE 20 MG TABLET FEED TUBE ×2 (09:03→20:15)
[2023-11-16] MEDS: ROSUVASTATIN 10 MG TABLET FEED TUBE (09:03)
[2023-11-16] MEDS: GABAPENTIN 100 MG CAPSULE FEED TUBE ×3 (09:03→17:22)
[2023-11-16] MEDS: amLODIPine BESYLATE 5 MG TABLET PO (09:03)
--- NOTE | 2023-11-16 09:28 | P.PNIM_ITS ---
Progress Note: A&P Assessment and Plan (1) Physical deconditioning: Code(s): R53.81 - Other malaise Status: Acute Assessment and Plan: 11/12/23: * increased weakness due to long hospital stay in ICU * PT and OT ordered 11/14/23: * Continue PT and OT (2) Diabetes mellitus: Code(s): E11.9 - Type 2 diabetes mellitus without complications Status: Chronic Assessment and Plan: 11/12/23: * Blood sugars ranging 308-332 * Hgb A1C 9.6 * Accu checks q.6 hours * high-dose SSI ordered q.6 hours * Lantus 80 units ordered for tonight * mealtime dose of 18 units ordered q.6 hours * hypoglycemic protocol in place * currently getting Glucerna 1.2cal tube feeding via G-tube 11/14/23: * Blood glucose ranging 297-377 * continue Lantus 80 units at hs * Continue Lantus 35 units in a.m. * Will consult trail construction worker for bolus tube feedings instead of continuous due to lack of blood glucose control. * Continue mealtime dose of 18 units AC/HS * Switch to AC/HS accu checks and SSI (3) Hypertension: Code(s): I10 - Essential (primary) hypertension Status: Acute Assessment and Plan: 11/12/23: * blood pressure ranging 130/66 to 156/44 * currently not on any medications for blood pressure at home * amlodipine 5 mg ordered 11/14/23: * No change to current treatment plan (4) Atrial fibrillation: Onset Date: 04/20/17 Code(s): I48.91 - Unspecified atrial fibrillation Status: Chronic Assessment and Plan: 11/12/23: * continue warfarin * not currently on any rate control medication * continue to monitor 11/14/23: * No change to current treatment plan 11/16/2023: * INR 1.3 * Increased Coumadin to 6mg daily * F/U INR tomorrow (5) Respiratory failure with hypoxia and hypercapnia: Qualifiers: Chronicity: acute Qualified Code(s): J96.01 - Acute respiratory failure with hypoxia; J96.02 - Acute respiratory failure with hypercapnia Code(s): J96.91 - Respiratory failure, unspecified with hypoxia; J96.92 - Respiratory failure, unspecified with hypercapnia Status: Chronic Assessment and Plan: 11/12/23: * patient was noted to have obesity related hypoventilation with CO2 retention * continue BiPAP at night or when napping * of note patient had a long duration of being on mechanical ventilation during his hospitalization * CXR today was reported as normal however shown some pulmonary edema changes when reviewed * Will give 1mg of Bumex for added diuresis * Continue bipap at night 11/14/23: * No change to current treatment plan 11/16/2023: * Family to bring in CPAP from home to transition * on RA (6) Acute encephalopathy: Code(s): G93.40 - Encephalopathy, unspecified Status: Acute Assessment and Plan: 11/12/23: * Patient has had altered mental status since his extubation in the ICU at [place]. His altered mental status was thought to be due to sedative buildup however he has been off of sedatives since the 23 of October.
--- NOTE | 2023-11-16 09:28 | PM.IMPN ---
Progress Note: A&P Assessment and Plan (1) Physical deconditioning: Code(s): R53.81 - Other malaise Status: Acute Assessment and Plan: 11/12/23: increased weakness due to long hospital stay in ICU PT and OT ordered 11/14/23: Continue PT and OT (2) Diabetes mellitus: Code(s): E11.9 - Type 2 diabetes mellitus without complications Status: Chronic Assessment and Plan: 11/12/23: Blood sugars ranging 308-332 Hgb A1C 9.6 Accu checks q.6 hours high-dose SSI ordered q.6 hours Lantus 80 units ordered for tonight mealtime dose of 18 units ordered q.6 hours hypoglycemic protocol in place currently getting Glucerna 1.2cal tube feeding via G-tube 11/14/23: Blood glucose ranging 297-377 continue Lantus 80 units at hs Continue Lantus 35 units in a.m. Will consult instrument maintenance supervisor for bolus tube feedings instead of continuous due to lack of blood glucose control. Continue mealtime dose of 18 units AC/HS Switch to AC/HS accu checks and SSI (3) Hypertension: Code(s): I10 - Essential (primary) hypertension Status: Acute Assessment and Plan: 11/12/23: blood pressure ranging 130/66 to 156/44 currently not on any medications for blood pressure at home amlodipine 5 mg ordered 11/14/23: No change to current treatment plan (4) Atrial fibrillation: Onset Date: 04/20/17 Code(s): I48.91 - Unspecified atrial fibrillation Status: Chronic Assessment and Plan: 11/12/23: continue warfarin not currently on any rate control medication continue to monitor 11/14/23: No change to current treatment plan 11/16/2023: INR 1.3 Increased Coumadin to 6mg daily F/U INR tomorrow (5) Respiratory failure with hypoxia and hypercapnia: Qualifiers: Chronicity: acute Qualified Code(s): J96.01 - Acute respiratory failure with hypoxia; J96.02 - Acute respiratory failure with hypercapnia Code(s): J96.91 - Respiratory failure, unspecified with hypoxia; J96.92 - Respiratory failure, unspecified with hypercapnia Status: Chronic Assessment and Plan: 11/12/23: patient was noted to have obesity related hypoventilation with CO2 retention continue BiPAP at night or when napping of note patient had a long duration of being on mechanical ventilation during his hospitalization CXR today was reported as normal however shown some pulmonary edema changes when reviewed Will give 1mg of Bumex for added diuresis Continue bipap at night 11/14/23: No change to current treatment plan 11/16/2023: Family to bring in CPAP from home to transition on RA (6) Acute encephalopathy: Code(s): G93.40 - Encephalopathy, unspecified Status: Acute Assessment and Plan: 11/12/23: Patient has had altered mental status since his extubation in the ICU at [place]. His altered mental status was thought to be due to sedative buildup however he has been off of sedatives since the 23 of October. opens eyes to voice however falls right back to sleep, not much interaction today. he was reported to be confused and pulling at his PEG tube in his Nayak catheter through the night. He does have sleep apnea and obesity related hypoventilation with CO2 retention. He slept with the BiPAP off most of the night per respiratory therapist due to tachypnea. On assessment today I found him sleeping in the bed without his BiPAP on and initiated his BiPAP again. ABG showed a normal pH of 7.45, pCO2 was normal at 38.9, PO2 was 67.8, bicarb 26.2. Last CT was reported as normal 11/14/23: Continue neuro checks More awake and alert today. (7) Oral candidiasis: Code(s): B37.0 - Candidal stomatitis Status: Acute Assessment and Plan: Yellowish white plaques noted to tongue and roof of mouth Patient NPO has feeding tube stopped oral nystatin Oral hygiene daily and PRN started on Fluconaz
[2023-11-16] MEDS: FLUCONAZOLE 100 MG TABLET 200 MG FEED TUBE (10:05)
[2023-11-16 13:17] LABS: Glucose Point of Care 321 mg/dl (65-105)
[2023-11-16 16:00] VITALS: BP 108/74; PULSE 72; RESP 18; TEMP 36.3; O2SAT 97
[2023-11-16] MEDS: WARFARIN (*PBKC) 2 MG TABLET 6 MG FEED TUBE (17:22)
[2023-11-16 17:23] LABS: Glucose Point of Care 369 mg/dl (65-105)
[2023-11-16] MEDS: INSULIN GLARGINE (*BKC) 1,000 UNITS/10 ML VIAL 80 UNITS SUB-Q (20:15)
[2023-11-16] MEDS: traZODone HCL 25 MG TABLET PO (20:15)
[2023-11-16 20:26] LABS: Glucose Point of Care 363 mg/dl (65-105)
[2023-11-16 23:58] VITALS: BP 114/48; PULSE 75; RESP 19; TEMP 36.6; O2SAT 96
[2023-11-17 05:41] LABS: INR 1.3
[2023-11-17 07:29] LABS: Glucose Point of Care 287 mg/dl (65-105)
[2023-11-17] MEDS: INSULIN GLARGINE (*BKC) 1,000 UNITS/10 ML VIAL 35 UNITS SUB-Q (07:41)
[2023-11-17] MEDS: INSULIN HUMAN LISPRO (*BKC) 1,000 UNITS/10 ML VIAL SUB-Q ×3 (07:41→17:57)
[2023-11-17] MEDS: INSULIN HUMAN LISPRO (*BKC) 1,000 UNITS/10 ML VIAL 18 UNITS SUB-Q ×3 (07:41→17:56)
[2023-11-17 08:00] VITALS: BP 112/56; PULSE 66; RESP 18; TEMP 36.1; O2SAT 97
[2023-11-17] MEDS: ERYTHROMYCIN OPHTH OINTMENT 3.5 GM TUBE 1 APPLIC EACH EYE ×4 (10:22→20:50)
[2023-11-17] MEDS: FLUCONAZOLE 100 MG TABLET FEED TUBE (10:23)
[2023-11-17] MEDS: FAMOTIDINE 20 MG TABLET FEED TUBE ×2 (10:23→20:50)
[2023-11-17] MEDS: amLODIPine BESYLATE 5 MG TABLET PO (10:23)
[2023-11-17] MEDS: GABAPENTIN 100 MG CAPSULE FEED TUBE ×3 (10:23→17:56)
[2023-11-17] MEDS: ROSUVASTATIN 10 MG TABLET FEED TUBE (10:23)
[2023-11-17 12:54] LABS: Glucose Point of Care 310 mg/dl (65-105)
[2023-11-17 16:00] VITALS: BP 118/56; PULSE 68; RESP 20; TEMP 36.7; O2SAT 97
[2023-11-17 17:56] LABS: Glucose Point of Care 311 mg/dl (65-105)
[2023-11-17] MEDS: WARFARIN (*PBKC) 2 MG TABLET 6 MG FEED TUBE (17:58)
[2023-11-17 20:17] LABS: Glucose Point of Care 292 mg/dl (65-105)
[2023-11-17] MEDS: INSULIN GLARGINE (*BKC) 1,000 UNITS/10 ML VIAL 80 UNITS SUB-Q (20:56)
[2023-11-17 23:59] VITALS: BP 110/53; PULSE 76; RESP 16; TEMP 35.8; O2SAT 94
[2023-11-18 05:29] LABS: Basophils Absolute Auto 0.08 K/mm3 (0.00-0.10); Eosinophils Absolute Auto 0.19 K/mm3 (0.02-0.50); Eosinophils Percent Auto 2.3 % (1.0-6.0); Hemoglobin 11.1 g/dL (12.4-15.3); Immature Granulocyte Absolute 0.18 K/mm3 (0.00-0.00); Immature Granulocyte Percent A 2.2 % (0.0-0.0); Lymphocytes Absolute Auto 1.83 K/mm3 (1.10-4.50); Lymphocytes Percent Auto 22.1 % (18.0-42.0); Mean Corpuscular HGB Conc 30.8 g/dL (32-36); Mean Corpuscular Hemoglobin 27.7 pg (27.0-31.0); Mean Corpuscular Volume 89.8 fL (78.0-102.0); Mean Platelet Volume 11.7 fl (8.7-11.0); Monocytes Absolute Auto 0.73 K/mm3 (0.10-0.90); Monocytes Percent Auto 8.8 % (2.0-11.0); Neutrophils Absolute Auto 5.27 K/mm3 (1.70-7.20); Neutrophils Percent Auto 63.6 % (50.0-70.0); Platelet Count Result 163 K/mm3 (150-420); Red Blood Count 4.01 M/mm3 (4.70-6.10); Red Cell Distribution Width 20.4 % (11.6-14.4); White Blood Count 8.3 K/mm3 (4.8-10.8)
[2023-11-18 05:50] LABS: Alanine Aminotransferase 27 U/L (16-63); Albumin Level 2.4 g/dL (3.4-5.0); Alkaline Phosphatase 105 U/L (46-116); Anion Gap 4 mmol/L (4-12); Aspartate Amino Transferase 31 U/L (15-37); Bilirubin,Total 0.5 mg/dL (0.00-1.00); Blood Urea Nitrogen 46 mg/dL (7-18); Calcium 9.9 mg/dL (8.5-10.1); Carbon Dioxide 34 mmol/L (21-32); Chloride 99 mmol/L (98-108); Estimated CRCL calculation 58 ml/min; Estimated Glomerular Filt Rate > 60; Glucose 239 mg/dL (70-99); INR 1.5; Osmolality Calculated 303 mOsm/kg (285-295); Potassium 4.4 mmol/L (3.5-5.1); Prothrombin Time 15.9 Seconds (9.50-12.1); Sodium 137 mmol/L (136-145); Total Protein 6.6 g/dL (6.4-8.2)
[2023-11-18] MEDS: ERYTHROMYCIN OPHTH OINTMENT 3.5 GM TUBE 1 APPLIC EACH EYE ×3 (06:05→12:59)
[2023-11-18 06:08] LABS: Glucose Point of Care 258 mg/dl (65-105)
[2023-11-18 08:00] VITALS: BP 117/39; PULSE 78; RESP 20; TEMP 36.1; O2SAT 97
[2023-11-18] MEDS: INSULIN HUMAN LISPRO (*BKC) 1,000 UNITS/10 ML VIAL SUB-Q ×2 (08:43→12:59)
[2023-11-18] MEDS: INSULIN GLARGINE (*BKC) 1,000 UNITS/10 ML VIAL 35 UNITS SUB-Q (08:43)
[2023-11-18] MEDS: INSULIN HUMAN LISPRO (*BKC) 1,000 UNITS/10 ML VIAL 18 UNITS SUB-Q ×2 (08:43→12:57)
[2023-11-18] MEDS: ROSUVASTATIN 10 MG TABLET FEED TUBE (09:53)
[2023-11-18] MEDS: amLODIPine BESYLATE 5 MG TABLET PO (09:53)
[2023-11-18] MEDS: FLUCONAZOLE 100 MG TABLET FEED TUBE (09:53)
[2023-11-18] MEDS: GABAPENTIN 100 MG CAPSULE FEED TUBE ×2 (09:53→12:59)
[2023-11-18] MEDS: FAMOTIDINE 20 MG TABLET FEED TUBE (09:54)
--- NOTE | 2023-11-18 12:08 | PM.DS ---
DS: Admitting Diagnosis Discharge Date 11/18/2023 Admitting Diagnosis Swing Bed, Encephalopathy, Post extubation respiratory failure. DS: Discharge Diagnosis Discharge Diagnosis (1) Oral candidiasis: Code(s): B37.0 - Candidal stomatitis Status: Acute (2) Diabetes mellitus: Code(s): E11.9 - Type 2 diabetes mellitus without complications Status: Chronic (3) Hypertension: Code(s): I10 - Essential (primary) hypertension Status: Acute (4) Atrial fibrillation: Onset Date: 04/20/17 Code(s): I48.91 - Unspecified atrial fibrillation Status: Chronic (5) Acute kidney injury: Code(s): N17.9 - Acute kidney failure, unspecified Status: Acute (6) Pneumonia: Qualifiers: Laterality: unspecified laterality Lung location: lower lobe of lung Pneumonia type: due to unspecified organism Qualified Code(s): J18.9 - Pneumonia, unspecified organism Code(s): J18.9 - Pneumonia, unspecified organism Status: Acute (7) Encephalopathy: Qualifiers: Encephalopathy type: toxic metabolic Qualified Code(s): G92.8 - Other toxic encephalopathy Code(s): G93.40 - Encephalopathy, unspecified Status: Acute DS: Summary Hospital Course Reason for hospitalization: Swing Bed, Weakness, Post extubation, Pneumonia, Hospital Course: his is a /73-year-old male with a significant past medical history of anemia, atrial fibrillation, coronary artery disease, venous stasis dermatitis, /diabetes mellitus, diabetic peripheral neuropathy, hypertension, hyperlipidemia, obesity, obstructive sleep apnea, sick sinus syndrome status post pacemaker, peripheral artery disease . Patient has a Gtube which placement was on 11/07. At this time patient has completed therapy and will discharge to longterm. He is still requiring tube feeding however he has been permitted some liquids and food with speech therapy following. Patient is stable for longterm in which he will still require some therapy. Patient will continue to require blood sugars and flushes and 24 hours care from nursing. Due to his extensive PMH he will remain complex and will need close monitoring. Patient remains on coumadin where the longterm MD will decide on the next last one completed on 11/17 PT1.5 on Time Spent with Patient Time attestation: Total time spent providing and/or coordinating discharge services: Exam Narrative: General: In no acute distress, well nourished Oral: yellowish white plaques Cardiac: Normal S1 and S2. RRR No murmur, gallops or friction rubs, peripheral pulses intact. Respiratory: Lungs clear, no adventitious lung sounds, currently on room air Gastrointestinal: soft, non-distended, non-tender, normoactive bowel sounds. Peg tube Skin: chronic venous stasis changes to bilateral lower extremity : Nayak catheter draining clear yellow urine Neuro: Alert and remains confused DS: Data Data Completed and Pending Labs on day of discharge: Labs from last 24 hours 11/18/23 11/18/23 11/17/23 06:01 05:18 20:12 WBC 8.3 RBC 4.01 L Hgb 11.1 L Hct 36.0 L MCV 89.8 MCH 27.7 MCHC 30.8 L RDW 20.4 H Plt Count 163 MPV 11.7 H Immature Gran % (Auto) 2.2 H Neut % (Auto) 63.6 Lymph % (Auto) 22.1 Glenn % (Auto) 8.8 Eos % (Auto) 2.3 Baso % (Auto) 1.0 Lymph # (Auto) 1.83 Glenn # (Auto) 0.73 Eos # (Auto) 0.19 Baso # (Auto) 0.08 Abs Immat Gran (auto) 0.18 H Absolute Neuts (auto) 5.27 Absolute Nucleated RBC 0.00 Nucleated RBC % 0.0 PT 15.9 H INR 1.5 Total Hemoglobin Sodium 137 Potassium 4.4 Chloride 99 Carbon Dioxide 34 H Anion Gap 4 BUN 46 H Creatinine 1.18 Estim Creat Clear Calc 58 Estimated GFR > 60 Glucose 239 H POC Capillary Glucose 258 H 292 H Calculated Osmolality 303 H Calcium 9.9 Total Bilirubin 0.5 AST 31 ALT 27
[2023-11-18 13:04] LABS: Glucose Point of Care 263 mg/dl (65-105)
--- NOTE | 2023-11-18 14:07 | PC.NURSE ---
[facility] called to page transfer for patient to [facility], [place], operated by [facility].
--- NOTE | 2023-11-18 15:09 | PC.NURSE ---
Patient discharged to [facility], report called to Breana. Patient transported by [facility]
--- NOTE | 2023-11-21 11:04 | PC.NURSE ---
[facility], no questions from pen[facility]iary staff
== END 2023-11-18 14:40 | DRG 948 ==
PROVIDERS: Nurse Practitioner Acute Care; Admitting Provider Internal Medicine; PCP Internal Medicine; Visit Provider Nurse Practitioner Family
DX: R53.81 Other malaise (principal); I48.20 Chronic atrial fibrillation, unspecified; B37.0 Candidal stomatitis; I10 Essential (primary) hypertension; I25.10 Atherosclerotic heart disease of native coronary artery without angina pectoris; I49.5 Sick sinus syndrome; I87.2 Venous insufficiency (chronic) (peripheral); E11.42 Type 2 diabetes mellitus with diabetic polyneuropathy; E11.51 Type 2 diabetes mellitus with diabetic peripheral angiopathy without gangrene; E78.5 Hyperlipidemia, unspecified; E66.9 Obesity, unspecified; G47.33 Obstructive sleep apnea (adult) (pediatric); Z95.0 Presence of cardiac pacemaker; Z93.1 Gastrostomy status; Z79.4 Long term (current) use of insulin; Z79.01 Long term (current) use of anticoagulants; Z95.1 Presence of aortocoronary bypass graft; F17.210 Nicotine dependence, cigarettes, uncomplicated
CPT/HCPCS: 36415; 36600; 71045; 80053; 82805; 82948; 83036; 85025; 85610; 92526; 92610; 94640; 97110; 97161; 97166; 97530; 97535; A9270; J1815

== ENCOUNTER 2023-12-20 05:34 | Inpatient (IN) | payer MEDICARE, SELFPAY ==
[2023-12-20] VITALS (22 sets, daily range): BP systolic 107–150; BP diastolic 53–105; PULSE 70–98; RESP 15–34; TEMP 36.3–37.3; O2SAT 92–100
--- NOTE | ~2023-12-20 | XR_ITS ---
MODIFIED ESOPHAGRAM HISTORY: Evaluate swallowing TECHNIQUE: Modified barium esophagram was performed on 12/21/2023. I administered fluoroscopy and per formed the exam with speech pathologist. Patient was seated for lateral fluoroscopic imaging for ing estion of thin liquids, pudding, solids and quantified amounts, followed by thin liquids in uncontrol led amounts. This was recorded on tape. A single fluoroscopic spot image was also recorded. The DAP f or this procedure was 2.399 Gycm2. The amount of fluoroscopy time used during this procedure was 1.9 minutes. FINDINGS: Oral stage: Adequate function. Pharyngeal stage: Reduced laryngeal elevation and tongue base retraction. There was laryngeal penetra tion without evident aspiration. Cervical/esophageal stage: Adequate function. IMPRESSION: Pharyngeal dysphagia with laryngeal penetration without evident aspiration. Please corre late with speech pathologist findings and specific feeding recommendations. Reviewed, dictated and finalized at location A. IMPRESSION: Pharyngeal dysphagia with laryngeal penetration without evident asp iration. Please correlate with speech pathologist findings and specific feedin g recommendations.
--- NOTE | ~2023-12-20 | XR_ITS ---
XR abdomen/kub 1V 12/23/2023 07:45 Indication: Frequent mucous stools. Procedure: KUB Comparison: CT dated 11/07/2023 Findings: Bowel gas pattern nonobstructive. Moderate colonic fecal loading. Lung bases are unremarkab le. Status post median sternotomy for CABG. Severe lumbar spondylosis. There has been interval develo pment of lytic expansile lesion of the right pelvis, suspicious for metastatic disease. Impression: 1: Interval development of expansile lytic lesion of the right pelvis, suspicious for metastatic dise ase. Consider correlation with CT. 2: Moderate retained fecal material in the colon. Reviewed, dictated and finalized at location B. Impression: 1: Interval development of expansile lytic lesion of the right pelvis, suspicio us for metastatic disease. Consider correlation with CT. 2: Moderate retained fecal material in the colon.
--- NOTE | ~2023-12-20 | CT_ITS ---
EXAMINATION: CT thoracic spine wo/w con DATE: 12/23/2023 11:37 INDICATION: Spinal lesion suspicious for metastatic disease. TECHNIQUE: Computed tomography (CT) of the thoracic spine was performed without and with 100 mL Omnip aque-350 intravenous contrast. Automated exposure control and iterative reconstruction technique were employed. The dose-length product was 1736.52 mGy-cm. COMPARISON: Chest CT dated 10/30/2023 and 12/02/2022 FINDINGS: For degree upper thoracic levocurvature. Sagittal alignment is normal. Moderate disc height loss with chronic endplate erosions and sclerotic Modic type III sclerotic endplate changes at T8-T9 which has progressed slightly since earlier study from 12/02/2022. Severe disc height loss at C6-C7. Additional mild to moderate multilevel disc height loss throughout the mid thoracic spine. Aside from the endplate erosions at T8-T9 vertebral body heights are normal. There are bridging osteophytes at multiple levels consistent with diffuse idiopathic skeletal hyperostosis (DISH). No central canal palmer nosis. Moderate neural foraminal stenosis bilaterally at T8-T9. There is mild neural foraminal stenos is at multiple additional levels on the left and right sides of the thoracic spine. No suspicious lyt ic or blastic bone lesions to suggest metastatic disease. Small right and tiny left posterior layerin g pleural effusions with associated posterior compressive atelectasis in the bilateral lower lobes. C alcified bilateral hilar lymph nodes consistent with old granulomatous disease. Visualized portion of the thoracic and upper abdominal aorta are normal in caliber with no dissection. No abnormally enhan cing lesions identified. IMPRESSION: 1. Severe thoracic spondylosis with erosive and sclerotic endplate changes at T8-T9 which have been p resent since 12/02/2022 which would favor degenerative disc disease over discitis and osteomyelitis. 2. No other lytic or blastic bone lesions suspicious for metastatic disease. 3. Small right and tiny left posterior layering pleural effusions. Reviewed, dictated and finalized at location A. IMPRESSION: 1. Severe thoracic spondylosis with erosive and sclerotic endplate changes at T 8-T9 which have been present since 12/02/2022 which would favor degenerative dis c disease over discitis and osteomyelitis. 2. No other lytic or blastic bone lesions suspicious for metastatic disease. 3. Small right and tiny left posterior layering pleural effusions.
--- NOTE | ~2023-12-20 | XR_ITS ---
Portable chest x-ray Comparison: 11/12/2023 Clinical History: Dyspnea Findings: There is moderate pulmonary edema pattern. Stable calcified presumed lymph node at the lef t infrahilar region. Cardiomediastinal silhouette is stable, status post median sternotomy with pace maker device. Bones and soft tissues are unremarkable. Impression: Moderate pulmonary edema pattern. Stable cardiomegaly, status post CABG with pacemaker device. Stable calcified presumed lymph node at the left infrahilar region. Reviewed, dictated and finalized at location . Impression: Moderate pulmonary edema pattern. Stable cardiomegaly, status post CABG with pacemaker device. Stable calcified presumed lymph node at the left infrahilar region.
--- NOTE | ~2023-12-20 | CT_ITS ---
CT of the Abdomen and Pelvis: Indication: Lytic lesion of the pelvis Technique: 2.5 mm axial scans were obtained through the abdomen and pelvis following intravenous adm inistration of 100 cc of Omnipaque 350. Dose reduction technique was used on this scan by utilizing a utomated exposure control and iterative reconstruction technique. The dose-length product (DLP) was 1 736.52 mGy-cm. COMPARISON: 11/07/2023 Findings: Scans through the lung bases demonstrate small right pleural effusion. Calcified left basi lar granuloma present. The liver, pancreas, gallbladder, adrenals and kidneys are within normal limits. Calcified splenic gr anulomas are present. There are atherosclerotic calcifications of the aorta. No lymphadenopathy. No bowel obstruction or bowel wall thickening. Large amount of stool is compatible with constipation. . Images through the pelvis were performed. Urinary bladder collapsed around a Nayak catheter. Possible mild perivesical inflammatory change. No pelvic ascites. No pelvic mass evident. Impression: No significant abnormality of the pelvic bones seen. Findings on radiograph earlier today were likely related to either external artifact/material, or prominent retained stool in the right colon. Small right pleural effusion. Constipation. Reviewed, dictated and finalized at location . Impression: No significant abnormality of the pelvic bones seen. Findings on radiograph ear lier today were likely related to either external artifact/material, or promine nt retained stool in the right colon. Small right pleural effusion. Constipation.
--- NOTE | ~2023-12-20 | CT_ITS ---
CT Scan of the Chest without Contrast: Clinical Indication: Aspiration pneumonia Technique: Contiguous sections were acquired throughout the chest without intravenous contrast. Dose reduction technique was used on this scan by utilizing automated exposure control and iterative recon struction technique. The dose-length product (DLP) was 923.31 mGy-cm. COMPARISON: 10/30/2023 Findings: There is no evidence of any significant mediastinal, hilar or axillary lymphadenopathy. Extensive cor onary artery calcifications are present. Calcified left hilar lymph nodes are present. No pericardial effusion. Small right pleural effusion present. Minimal left pleural fluid present. There is minimal bibasilar atelectasis. Images through the upper abdomen reveal no abnormalities. Stable erosive changes about the T8-T9 disc space, related to severe degenerative spondylosis. Impression: Small right pleural effusion and minimal left pleural effusion. Associated mild bibasilar atelectatic change. Stable erosive changes about the T8-T9 disc space with surrounding sclerosis. This is likely due to a dvanced degenerative spondylosis. Correlate clinically for any possibility of infectious discitis/ost eomyelitis. Consider MR imaging as indicated. Reviewed, dictated and finalized at location . Impression: Small right pleural effusion and minimal left pleural effusion. Associated mild bibasilar atelectatic change. Stable erosive changes about the T8-T9 disc space with surrounding sclerosis. T his is likely due to advanced degenerative spondylosis. Correlate clinically fo r any possibility of infectious discitis/osteomyelitis. Consider MR imaging as indicated.
--- NOTE | 2023-12-20 05:38 | ECG_ITS ---
Test Date: 2023-12-20 05:41:01 Measurements Intervals Pe Ell Rate: 90 P: 0 OR: 0 QRS: 11 QRSD: 96 T: -41 QT: 347 QTc: 426 Interpretive Statements ATRIAL FIBRILLATION LOW QRS VOLTAGE IN EXTREMITY LEADS [QRS DEFLECTION < 0.5 mV IN LIMB LEADS] NONSPECIFIC ST & T-WAVE ABNORMALITY ABNORMAL RHYTHM ECG Compared to ECG 10/24/2023 08:48:22 Ventricular-paced complex(es) or rhythm no longer present Electronically Signed On 12-20-2023 12:24:47 CDT by Adele Cobb M.D.
[2023-12-20 06:03] LABS: Basophils Absolute Auto 0.1 K/mm3 (0.0-0.1); Basophils Percent Auto 0.3 % (0.2-1.2); Hematocrit 29.7 % (42.0-52.0); Hemoglobin 9.5 g/dL (14.0-18.0); Immature Granulocyte Absolute 0.31 K/mm3 (0.00-0.031); Immature Granulocyte Percent A 1.4 % (0-0.5); Lymphocytes Percent Auto 3.7 % (18.3-44.2); Mean Corpuscular Hemoglobin 28.9 pg (26-34); Mean Corpuscular Volume 90.3 fl (80-100); Mean Platelet Volume 9.3 fl (7.4-10.4); Monocytes Absolute Auto 1.8 K/mm3 (0.1-0.6); Monocytes Percent Auto 8.4 % (2.6-8.5); Neutrophils Absolute Auto 18.5 K/mm3 (1.3-6.7); Neutrophils Percent Auto 86.2 % (45.5-73.1); Platelet Count Result 264 k/mm3 (150-375); Red Blood Count 3.29 M/mm3 (4.6-6.20); Red Cell Distribution Width 18.5 % (11.5-14.5); White Blood Count 21.5 K/mm3 (4.5-10.0)
--- NOTE | 2023-12-20 06:03 | ED.SOB ---
HPI - SOB/Dyspnea General Chief Complaint: Shortness of Breath/Dyspnea Stated Complaint: RESPIRATORY DISTRESS Time Seen by Provider: 12/20/23 05:42 History of Present Illness HPI Narrative: 73-year-old male with a past medical history significant for coronary disease status post CABG, atrial fibrillation, peripheral arterial disease, pacemaker placement for sick sinus syndrome. He had a recent hospital admission requiring intubation for hypoxic and hypercapnic respiratory failure in October. He presents to the emergency department in respiratory distress. EMS was called to scene of his care home facility to find the patient saturating 70% on BiPAP. patient was tachypneic in the 30s to 40s but maintaining good blood pressure. They transition and of CPAP, administered albuterol and Solu-Medrol intramuscularly with improvement in his pulse ox and saturation to 100% on CPAP. Patient is awake alert oriented and a full code. He presents in severe respiratory distress, tachypneic, requiring positive-pressure ventilation. He is endorsing chest pain and shortness a breath but denies any fever, chills, cough, worsening abdominal distention. He does have a chronic PEG tube in Nayak catheter. He has bilateral lower extremity venous stasis dermatitis and peripheral edema throughout. Related Data Allergies Allergy/AdvReac Type Severity Reaction Status Date / Time No Known Allergies Allergy Verified 05/23/23 15:18 Review of Systems Review of Systems: [facility] Past Medical History Medical History Anemia Anticoagulant long-term use Arthritis Atrial fibrillation (04/20/17) On chronic anticoagulation with warfarin CAD (coronary artery disease), autologous vein bypass graft Candidiasis of other urogenital sites Chronic venous stasis dermatitis of both lower extremities Diabetes mellitus Diabetic peripheral neuropathy Erectile dysfunction Essential hypertension Hemochromatosis However patient's iron studies demonstrate a low iron level (12/2020), normal transferrin (in 2019) and normal hemoglobin and now actually has what appears bandemia chronic disease Mixed hyperlipidemia (04/20/17) Obesity (BMI 35.0-39.9 without comorbidity) SAKSHI on CPAP (03/2019) CPAP of 7 Pacemaker Peripheral artery disease Rhabdomyolysis Sick sinus syndrome (04/18/17) Urge urinary incontinence Surgical History Surgical History H/O right heart catheterization Hx of CABG (~2004) Four-vessel CABG Pacemaker (04/2015) Single-chamber MRI compatible pacemaker Family History Family History Father Acute myocardial infarction Son Family history of obesity Mother Uterine cancer Social History Social History Social History: He has been since 1997 and he he lives in his own home. He ambulates with a walker. His son comes and checks on him daily, and will be his surrogate Diego rosenthal. He is retired from the [employer]. He wishes to be a full code at this time. Smoking packs per day: 2.5 Smoking cigarettes per day: 50.0 Years smoked: 50 Smoking pack-years: 125.00 Smoking status: Current every day smoker Tobacco type: cigarettes Smokeless tobacco user: chewing tobacco Second hand tobacco smoke exposure: Yes Alcohol intake: former Substance use: former Substance use type: marijuana Do You Feel Safe in your Home?: Yes Lack of Transportation: No Lack of Food: Never True Current Housing: I Have Housing Concerned About Future Housing: No Difficulty Paying Gas/Electric Bills: No Difficulty Paying for Meds: No Currently Unemployed: No Education: Trade/Vocational Certificate Difficulty w/ Childcare or Family Care: No Living arrangements: alone
[2023-12-20 06:04] LABS: Alveolar/Arterial O2 Gradient 353.8 mmHg; Base Excess ABG -4.1 mEq/l (+/-2.0); Carboxyhemoglobin 0.4 % THb (0-2.0); Fractional Inspired Oxygen 100 %; HCO3 ABG 19.3 mEq/l (22.0-26.0); Methemoglobin ABG 0.2 %THb (0-1.5); Oxygen Content ABG 14.3 %vol (16.0-22.0); Oxygen Saturation ABG 99.8 % (95.0-100.0); Oxyhemoglobin 99.4 % THb (90.0-100.0); PCO2 ABG 29.3 mmHg (35.0-45.0); PO2 ABG 329.9 mmHg (80.0-100.0); Total Hemoglobin 9.6 g/dL (12.0-18.0); pH ABG 7.436 (7.350-7.450)
[2023-12-20 06:05] LABS: Device NON-INVASIVE VENT; Modified Allen's Test Pass; Site Drawn RIGHT RADIAL
[2023-12-20 06:06] LABS: Non-Invasive Expiratory Pressure 6 CMH2O; Non-Invasive Inspiratory Pressure 18 CMH2O
[2023-12-20 06:11] LABS: Lactic Acid Reflex 2.5 mmol/L (0.7-2.0)
[2023-12-20] MEDS: IPRATROPIUM BR 0.02% INH SOLN 0.5 MG/2.5 ML VIAL 1 MG INHALATION (06:11)
[2023-12-20] MEDS: ALBUTEROL SULFATE NEB 2.5 MG/3 ML INH 10 MG INHALATION (06:11)
[2023-12-20] MEDS: FUROSEMIDE INJ 40 MG/4 ML VIAL IV PUSH ×2 (06:12→18:13)
[2023-12-20 06:20] LABS: Alanine Aminotransferase 19 U/L (6-50); Albumin Level 3.7 g/dL (3.5-5.1); Alkaline Phosphatase 140 U/L (38-126); Anion Gap 11 mmol/L (4-12); Aspartate Amino Transferase 41 U/L (17-59); Bilirubin,Total 1.5 mg/dL (0.2-1.3); Blood Urea Nitrogen 33 mg/dL (9-20); Calcium 8.5 mg/dL (8.4-10.2); Carbon Dioxide 23 mmol/L (22-30); Chloride 92 mmol/L (98-107); Estimated CRCL calculation 55 ml/min; Estimated Glomerular Filt Rate 54; Glucose 197 mg/dL (65-110); Magnesium 2.1 mg/dL (1.6-2.3); Potassium 4.7 mmol/L (3.4-5.0); Sodium 126 mmol/L (137-145)
[2023-12-20 06:21] LABS: NT Pro B Type Natriuretic Pept 6730 pg/mL (19.9-100)
[2023-12-20 06:23] LABS: INR 1.7; Prothrombin Time 20.1 Seconds (11.1-14.7)
[2023-12-20 06:24] LABS: Partial Thromboplastin Time 44.2 Seconds (22.3-36.8)
[2023-12-20 06:32] LABS: Troponin I 0.049 ng/mL (0.000-0.034)
--- NOTE | 2023-12-20 07:21 | PC.NURSE ---
Spoke to son regarding update on pt status and POC, aware pt will be admitted to the hospital. Pt has bed, awaiting blood cultures and farias change as ordered by hospitalist.
[2023-12-20] MEDS: CEFEPIME 2 GM/NS 50 ML 2 GM/50 ML BAG IVPB (07:45)
[2023-12-20 08:10] LABS: Add Urine Microscopic? YES; Amorphous Sediment Urine Few; Appearance Urine Turbid (Clear); Bacteria Urine None Seen /hpf; Bilirubin Urine Negative (Negative); Blood Urine 3+ (Negative); Color Urine Yellow (Yellow); Glucose Urine UA Negative (Negative); Ketones Urine Negative (Negative); Leukocyte Esterase Ur 2+ LEU/UL (Negative); Need Manual Microscopic Reviewed; Nitrate Urine Negative (Negative); Non Pathogenic Casts >20; Protein Urine 3+ mg/dL (Negative); RBC Urine 21-50 /hpf (0-2); Specific Grav Ur 1.011 (1.001-1.035); Squamous Epithelial Cell Urine Few /hpf (Few); WBC Urine 51-100 /hpf (0-3)
[2023-12-20] MEDS: VANCOMYCIN 1,500 MG/NS 500 ML 1,500 MG/500 ML BAG 250 MG IVPB (08:13)
[2023-12-20 09:00] LABS: Reflex Lactic Acid Yes or No Add Lactic
[2023-12-20 09:08] LABS: MRSA (PCR) DETECTED (NOT DETECTE)
[2023-12-20 09:29] LABS: Lactic Acid 1.4 mmol/L (0.7-2.0)
--- NOTE | 2023-12-20 10:33 | PC.NURSE ---
[facility] staff called for patient update. All questions answered and update provided.
[2023-12-20] MEDS: VANCOMYCIN 1,250 MG/NS 250 ML 1,250 MG/250 ML BAG 166.67 MG IVPB ×2 (10:34→11:18)
--- NOTE | 2023-12-20 10:49 | PC.NURSE ---
This RN called [facility] and spoke to Samreen in regards to pt diag and POC - admit. Family member (son) also notified of pt admit to hospital.
--- NOTE | 2023-12-20 11:01 | ADMGEN ---
This patient, Diego Marquez Sr., was admitted to IMU Room 204-01 at 1100. Patient/family oriented to hospital policies and general routines including ID bracelet, bed and alarms, visiting hours, pain management, procedures, bathroom and other care routines, personal items, smoking policy, room service/diet, and visiting hours. Information on how to activate the Rapid Response Team has been discussed. Patient/Family are encouraged to report perceived risks to care and to ask questions if they do not understand what they are told or what they should do.
--- NOTE | 2023-12-20 17:41 | PM.IMHP ---
H&P: HPI History of Present Illness Date/Time: 12/20/23 17:41 Chief Complaint: Respiratory distress Narrative: Patient is a 73-year-old male with past medical history of CAD status post CABG, peripheral artery disease, atrial fibrillation with sick sinus syndrome status post permanent pacemaker presents to ED from SNF with dyspnea. With patient being tachypneic and in respiratory distress he improved with BiPAP. Was transition to CPAP and given albuterol with Solu-Medrol. He appears to be doing well with positive-pressure ventilation. Patient has chronic PEG tube and Nayak catheter. As patient was somnolent I was unable to obtain further history. Of note patient was hospitalized 10/20-11/10 for septic shock secondary to Pseudomonas pneumonia, right lower extremity cellulitis. During that hospitalization completed course of meropenem, supportive care for the septic shock. He had significant encephalopathy and was thought to have possible withdrawal from diazepam and gabapentin. He had been on tube feeds with significant dose of Lantus 70 units and NovoLog q.6 hours at 12 units. For his CHF he was on Bumex, EF was 60-65%. He had failed numerous swallow studies on 11/01, 11/03 and thus is on PEG tube. In the ED: Patient was placed on BiPAP for significant work of breathing with settings of 18/60 100% FiO2 originally. He was given nebulized treatments and Solu-Medrol. There was concern for fluid overload and he was given dose of Lasix, chest x-ray consistent with fluid overload. He was empirically started on vancomycin and cefepime. Patient being admitted to IMU for further management of his acute respiratory failure. Review of Systems Review of Systems: Unable to obtain due to mental status [facility] Past Medical History Medical History Anemia Anticoagulant long-term use Arthritis Atrial fibrillation (04/20/17) On chronic anticoagulation with warfarin CAD (coronary artery disease), autologous vein bypass graft Candidiasis of other urogenital sites Chronic venous stasis dermatitis of both lower extremities Diabetes mellitus Diabetic peripheral neuropathy Erectile dysfunction Essential hypertension Hemochromatosis However patient's iron studies demonstrate a low iron level (12/2020), normal transferrin (in 2019) and normal hemoglobin and now actually has what appears bandemia chronic disease Mixed hyperlipidemia (04/20/17) Obesity (BMI 35.0-39.9 without comorbidity) SAKSHI on CPAP (03/2019) CPAP of 7 Pacemaker Peripheral artery disease Rhabdomyolysis Sick sinus syndrome (04/18/17) Urge urinary incontinence Surgical History Surgical History H/O right heart catheterization Hx of CABG (~2004) Four-vessel CABG Pacemaker (04/2015) Single-chamber MRI compatible pacemaker Family History Family History Father Acute myocardial infarction Son Family history of obesity Mother Uterine cancer Social History Social History Social History: He has been since 1997 and he he lives in his own home. He ambulates with a walker. His son comes and checks on him daily, and will be his surrogate Diego rosenthal. He is retired from the [employer]. He wishes to be a full code at this time. Smoking packs per day: 2.5 Smoking cigarettes per day: 50.0 Years smoked: 50 Smoking pack-years: 125.00 Smoking status: Former smoker Tobacco type: cigarettes Smokeless tobacco user: chewing tobacco Second hand tobacco smoke exposure: Yes Alcohol intake: unknown Substance use: unknown Substance use type: marijuana Do You Feel Safe in your Home?: Yes Lack of Transportation: No Lack of Food: Never True Current Housing: I Have Housing Concerned About Future Housing: No Difficulty Payin
[2023-12-20 18:07] LABS: Glucose Point of Care 320 mg/dl (65-105)
[2023-12-20] MEDS: INSULIN ASPART (*BKC) 100 UNITS/ML SUB-Q (18:13)
[2023-12-20] MEDS: GABAPENTIN 100 MG CAPSULE FEED TUBE (18:13)
[2023-12-20] MEDS: CEFEPIME 1 GM/NS 50 ML 1 GM/50 ML BAG IVPB (20:36)
[2023-12-20] MEDS: FAMOTIDINE 20 MG TABLET FEED TUBE (20:36)
[2023-12-21] VITALS (13 sets, daily range): BP systolic 115–134; BP diastolic 56–75; PULSE 66–79; RESP 14–22; TEMP 36.4–36.9; O2SAT 96–100; BMI 34.1
[2023-12-21 00:09] LABS: Glucose Point of Care 306 mg/dl (65-105)
[2023-12-21] MEDS: INSULIN ASPART (*BKC) 100 UNITS/ML SUB-Q ×4 (00:12→20:33)
[2023-12-21 04:19] LABS: Basophils Percent Auto 0.2 % (0.2-1.2); Hematocrit 28.1 % (42.0-52.0); Hemoglobin 8.9 g/dL (14.0-18.0); Immature Granulocyte Absolute 0.28 K/mm3 (0.00-0.031); Immature Granulocyte Percent A 1.4 % (0-0.5); Lymphocytes Absolute Auto 0.62 K/mm3 (0.9-3.2); Lymphocytes Percent Auto 3.1 % (18.3-44.2); Mean Corpuscular HGB Conc 31.7 g/dl (32-36); Mean Corpuscular Hemoglobin 28.4 pg (26-34); Mean Corpuscular Volume 89.8 fl (80-100); Mean Platelet Volume 9.9 fl (7.4-10.4); Monocytes Absolute Auto 0.9 K/mm3 (0.1-0.6); Monocytes Percent Auto 4.7 % (2.6-8.5); Neutrophils Absolute Auto 17.8 K/mm3 (1.3-6.7); Neutrophils Percent Auto 90.6 % (45.5-73.1); Platelet Count Result 242 k/mm3 (150-375); Red Blood Count 3.13 M/mm3 (4.6-6.20); Red Cell Distribution Width 18.6 % (11.5-14.5); White Blood Count 19.7 K/mm3 (4.5-10.0)
[2023-12-21 04:29] LABS: Hemoglobin A1C 7.8 % (<5.7)
[2023-12-21 04:33] LABS: Anion Gap 13 mmol/L (4-12); Blood Urea Nitrogen 41 mg/dL (9-20); Calcium 8.8 mg/dL (8.4-10.2); Carbon Dioxide 22 mmol/L (22-30); Chloride 95 mmol/L (98-107); Estimated CRCL calculation 69 ml/min; Estimated Glomerular Filt Rate > 60; Glucose 316 mg/dL (65-110); Magnesium 2.3 mg/dL (1.6-2.3); Potassium 3.5 mmol/L (3.4-5.0); Sodium 130 mmol/L (137-145)
[2023-12-21 06:20] LABS: Glucose Point of Care 323 mg/dl (65-105)
[2023-12-21] MEDS: VANCOMYCIN 1,500 MG/NS 500 ML 1,500 MG/500 ML BAG 250 MG IVPB (07:48)
--- NOTE | 2023-12-21 08:49 | PM.IMPN ---
Progress Note: A&P Assessment and Plan (1) Subtherapeutic anticoagulation: Code(s): Z51.81 - Encounter for therapeutic drug level monitoring; Z79.01 - [facility] (current) use of anticoagulants Status: Acute (2) Acute exacerbation of CHF (congestive heart failure): Code(s): I50.9 - Heart failure, unspecified Status: Acute (3) Acute hypoxic on chronic hypercapnic respiratory failure: Code(s): J96.01 - Acute respiratory failure with hypoxia; J96.12 - Chronic respiratory failure with hypercapnia Status: Acute Plan Acute CHF exacerbation -patient has significant edema pitting edema up to thigh 2+, coarse lung sounds, chest x-ray consistent with pulmonary edema -diuresis: Lasix 40 mg IV b.i.d., appears to be responding, during last hospitalization was on Bumex, may need to change to PO bumex on discharge -BNP 6730 -troponin elevation at 0.049 likely secondary to supply demand mismatch from the heart strain from fluid overload, no chest pain, ACS ruled out Leukocytosis -with the pulmonary edema is unclear to see if patient has underlying pneumonia. He is at high risk for aspiration -antibiotics: For now continue vancomycin, cefepime -downtrending leukocytosis -acute lactic acidosis improved from 2.5-1.4 -MRSA nares positive, continue vancomycin Acute encephalopathy, resolved -very somnolent, may be secondary to critical illness -will continue monitor -ABG shows pCO2 29 on noninvasive vent -mentation normalized after a day with bipap, he should resume his home cpap Hypervolemic hyponatremia -patient is clinically significantly volume overloaded -continue diuresis -hyponatremia improving with diuresis Subtherapeutic INR -INR goal 2-3 for atrial fibrillation, currently INR 1.7 -continue home warfarin, bridging with Lovenox 1mg/kg Chronic conditions -chronic venous stasis lower extremities: Patient likely needs to be on diuresis at home, he presents with significant volume overload -type 2 diabetes: Whole continue q.6 hours sliding scale insulin, hypoglycemia protocol, Accu-Cheks q.6 hours. A1c 7.8. home insulin aspart 12u q6hr, glargine 70u daily. I have resumed half dose of home insulin, will uptitrate as needed -atrial fibrillation: At baseline uses warfarin, goal is 2-3 -chronic dysphagia: Patient has failed numerous MBS, resuming tube feeds. consult director of child welfare services -essential hypertension: Holding amlodipine with diuresis -hyperlipidemia, PAD: Rosuvastatin -chronic constipation: MiraLax -GERD: Protonix IV, Pepcid -diabetic peripheral neuropathy: gabapentin Diet: NPO, tube feeds DVT prophylaxis: warfarin, Lovenox bridge Code status: Full code Disposition: >2 days Time Spent With Patient Time: 35 minutes Subjective Date/time seen: 12/21/23 08:49 Interval history: Patient seen and examined. He is doing well no new complaints. He is off the BiPAP and able to converse. He is breathing comfortably. He still has some coarse lung sounds we are diuresing with Lasix. We will restart tube feeds today. Blood sugar started to rise, resuming half his home insulin basal and bolus, will further adjust as needed. Will have him work with PT and OT. Review of Systems Review of Systems: 10 point ROS complete, negative other than what is specified in HPI. Exam Narrative: - GENERAL: Pleasant male in no acute distress. Well-nourished. - EYES: EOMI. Anicteric. - HENT: Moist mucous membranes. - LUNGS: Coarse lung sounds in all lung bolden, no wheezing, rales present - CARDIOVASCULAR: Regular rate and rhythm. - ABDOMEN: Soft, non-tender and non-distended. No palpable masses. - EXTREMITIES: 2+ pitting edema lower extremities, some wrinkling of skin, venous stasis changes - NEUROLOGIC: No focal neurological deficits. CN II-XII grossly intact. - PSYCHIATRIC: Awake, Alert and oriented. Appropriate mood and affect. - SKIN: No rashes or lesions. Warm. - LYMPH: No cervical lymphadenopathy. Obje
[2023-12-21] MEDS: CEFEPIME 1 GM/NS 50 ML 1 GM/50 ML BAG IVPB ×2 (08:56→20:33)
[2023-12-21] MEDS: INSULIN GLARGINE (*BKC) 100 UNITS/ML 35 UNITS SUB-Q ×2 (08:57→20:36)
[2023-12-21] MEDS: ENOXAPARIN 100 MG/ML SYRINGE SUB-Q ×2 (09:02→20:33)
[2023-12-21] MEDS: FUROSEMIDE INJ 40 MG/4 ML VIAL IV PUSH ×2 (09:03→18:13)
[2023-12-21] MEDS: THERAPEUTIC MULTIVITAMINS/MINERALS TAB (*BKC) 1 TABLET FEED TUBE (09:03)
[2023-12-21] MEDS: ROSUVASTATIN 10 MG TABLET FEED TUBE (09:03)
[2023-12-21] MEDS: GABAPENTIN 100 MG CAPSULE FEED TUBE ×3 (09:03→18:13)
[2023-12-21] MEDS: PANTOPRAZOLE SODIUM IV 40 MG VIAL IV PUSH (09:03)
[2023-12-21] MEDS: FAMOTIDINE 20 MG TABLET FEED TUBE ×2 (09:03→20:33)
[2023-12-21] MEDS: WATER FOR IRRIGATION, STERILE 1,000 ML BOTTLE 1000 ML (12:32)
--- NOTE | 2023-12-21 14:30 | PCSTNOTE ---
Please refer to the Modified Barium Swallow Evaluation in the EMR.
[2023-12-21 15:52] LABS: Glucose Point of Care 367 mg/dl (65-105)
--- NOTE | 2023-12-21 16:42 | PC.NURSE ---
pt med/tele status- report given to Rochelle PINON- pt moved to room 260 via bed accompanied by staff - personal belongings with pt
[2023-12-21 17:07] LABS: Glucose Point of Care 356 mg/dl (65-105)
[2023-12-21] MEDS: WARFARIN (*PBKC) 1 MG TABLET FEED TUBE (18:13)
[2023-12-21] MEDS: NYSTATIN 100,000 UNITS/ML SUSP 5 ML ORAL.SUSP PO ×2 (18:14→20:36)
[2023-12-21] MEDS: INSULIN ASPART (*BKC) 100 UNITS/ML 6 UNITS SUB-Q (18:15)
[2023-12-21 20:16] LABS: Glucose Point of Care 370 mg/dl (65-105)
[2023-12-22] VITALS (9 sets, daily range): BP systolic 118–134; BP diastolic 55–59; PULSE 67–100; RESP 18; TEMP 36.4–36.9; O2SAT 96–98
[2023-12-22 01:41] LABS: Vancomycin Trough 17.2 ug/mL (10.0-20.0)
[2023-12-22] MEDS: VANCOMYCIN 1,500 MG/NS 500 ML 1,500 MG/500 ML BAG 250 MG IVPB (02:37)
[2023-12-22 05:32] LABS: Basophils Percent Auto 0.1 % (0.2-1.2); Hematocrit 26.7 % (42.0-52.0); Hemoglobin 8.5 g/dL (14.0-18.0); Immature Granulocyte Absolute 0.26 K/mm3 (0.00-0.031); Immature Granulocyte Percent A 1.5 % (0-0.5); Lymphocytes Absolute Auto 0.86 K/mm3 (0.9-3.2); Mean Corpuscular HGB Conc 31.8 g/dl (32-36); Mean Corpuscular Volume 87.8 fl (80-100); Mean Platelet Volume 9.8 fl (7.4-10.4); Monocytes Absolute Auto 1.1 K/mm3 (0.1-0.6); Monocytes Percent Auto 6.2 % (2.6-8.5); Neutrophils Absolute Auto 15.2 K/mm3 (1.3-6.7); Neutrophils Percent Auto 87.2 % (45.5-73.1); Platelet Count Result 230 k/mm3 (150-375); Red Blood Count 3.04 M/mm3 (4.6-6.20); Red Cell Distribution Width 18.6 % (11.5-14.5); White Blood Count 17.4 K/mm3 (4.5-10.0)
[2023-12-22 05:40] LABS: Anion Gap 11 mmol/L (4-12); Blood Urea Nitrogen 47 mg/dL (9-20); Calcium 8.6 mg/dL (8.4-10.2); Carbon Dioxide 27 mmol/L (22-30); Chloride 98 mmol/L (98-107); Estimated CRCL calculation 85 ml/min; Estimated Glomerular Filt Rate > 60; Glucose 223 mg/dL (65-110); Magnesium 2.2 mg/dL (1.6-2.3); Potassium 3.1 mmol/L (3.4-5.0); Sodium 136 mmol/L (137-145)
[2023-12-22 05:48] LABS: INR 1.7; Prothrombin Time 20.6 Seconds (11.1-14.7)
[2023-12-22] MEDS: INSULIN ASPART (*BKC) 100 UNITS/ML SUB-Q ×2 (06:42→20:58)
[2023-12-22 06:47] LABS: Glucose Point of Care 241 mg/dl (65-105)
--- NOTE | 2023-12-22 07:49 | PM.IMPN ---
Progress Note: A&P Assessment and Plan (1) Acute exacerbation of CHF (congestive heart failure): Code(s): I50.9 - Heart failure, unspecified Status: Acute (2) Diabetes mellitus: Code(s): E11.9 - Type 2 diabetes mellitus without complications Status: Chronic Plan Acute CHF exacerbation -patient has significant edema pitting edema up to thigh 2+, coarse lung sounds, chest x-ray consistent with pulmonary edema -diuresis: Lasix 40 mg IV b.i.d., may need to change to PO bumex on discharge -BNP 6730 -troponin elevation at 0.049 likely secondary to supply demand mismatch from the heart strain from fluid overload, no chest pain, ACS ruled out Multifocal pneumonia X-ray shows patchy interstitial changes bilaterally, Patient has leukocytosis, Leukocytosis Possible aspiration pneumonia -antibiotics: For now continue vancomycin, cefepime -downtrending leukocytosis -acute lactic acidosis improved from 2.5-1.4 -MRSA nares positive, continue vancomycin Follow-up CT chest add Flagyl Bacteremia Blood culture December 19 grew MRSA Continue vancomycin Repeat blood culture today, if repeat blood cultures still positive for MRSA, may consider to transfer patient to the hospital with ID service UTI Upon arrival, UA showed turbid urine, pyuria and hematuria Urine culture grew Gram-negative bacilli Patient is on cefepime Follow-up urine culture Hypokalemia Potassium 3.1 provide potassium chloride 40 mEq p.o. once and daily Acute encephalopathy, resolved -very somnolent, may be secondary to critical illness -will continue monitor -ABG shows pCO2 29 on noninvasive vent -mentation normalized after a day with bipap, he should resume his home cpap Hypervolemic hyponatremia -patient is clinically significantly volume overloaded -continue diuresis -hyponatremia improving with diuresis Subtherapeutic INR -INR goal 2-3 for atrial fibrillation, currently INR 1.7 -continue home warfarin, bridging with Lovenox 1mg/kg Chronic conditions -chronic venous stasis lower extremities: Patient likely needs to be on diuresis at home, he presents with significant volume overload type 2 diabetes: Whole continue q.6 hours sliding scale insulin, hypoglycemia protocol, Accu-Cheks q.6 hours. A1c 7.8. home insulin aspart 12u q6hr, glargine 70u daily. resumed half dose of home insulin, titrate as needed atrial fibrillation: At baseline uses warfarin, goal is 2-3 chronic dysphagia: Patient has failed numerous MBS, resuming tube feeds. consult traffic ii manager -essential hypertension: Holding amlodipine with diuresis -hyperlipidemia, PAD: Rosuvastatin -chronic constipation: MiraLax -GERD: Protonix IV, Pepcid -diabetic peripheral neuropathy: gabapentin Diet: NPO, tube feeds DVT prophylaxis: warfarin, Lovenox bridge Code status: Full code Subjective Date/time seen: 12/22/23 07:49 Interval history: I saw examined patient today, patient is mentally clear, able to answer questions. Patient does not have obvious respiratory distress, patient patient denies shortness breath, cannot provide detailed information. Labs reviewed, blood culture grows MRSA in both bottle, he urine culture grows Gram-negative bacilli Exam Narrative: - GENERAL: Lethargic in no acute distress. Well-nourished. - EYES: EOMI. Anicteric. - HENT: Moist mucous membranes. - LUNGS: Coarse lung sounds in all lung bolden, no wheezing, rales present - CARDIOVASCULAR: Regular rate and rhythm. - ABDOMEN: Soft, non-tender and non-distended. No palpable masses. - EXTREMITIES: 2+ pitting edema lower extremities, some wrinkling of skin, venous stasis changes - NEUROLOGIC: No focal neurological deficits. CN II-XII grossly intact. General weakness - PSYCHIATRIC: Awake, Alert and oriented to place. Appropriate mood and affect. - SKIN: No rashes or lesions. Warm. - LYMPH: No cervical lymphadenopathy. Objective Data Vital Signs Vital Signs: Vital Signs -
[2023-12-22 08:00] LABS: Glucose Point of Care 197 mg/dl (65-105)
[2023-12-22] MEDS: CEFEPIME 1 GM/NS 50 ML 1 GM/50 ML BAG IVPB ×2 (08:31→19:54)
[2023-12-22] MEDS: INSULIN ASPART (*BKC) 100 UNITS/ML 6 UNITS SUB-Q ×3 (08:34→17:36)
[2023-12-22] MEDS: metroNIDAZOLE 500 MG/ISO 100ML 500 MG/100 ML BAG 100 MG IVPB ×3 (08:45→22:02)
[2023-12-22] MEDS: POTASSIUM CHLORIDE 20 MEQ PACKET (FOR LIQUID) 40 MEQ PO ×2 (08:48→09:07)
[2023-12-22] MEDS: ENOXAPARIN 100 MG/ML SYRINGE SUB-Q ×2 (08:49→19:44)
[2023-12-22] MEDS: FAMOTIDINE 20 MG TABLET FEED TUBE (08:51)
[2023-12-22] MEDS: THERAPEUTIC MULTIVITAMINS/MINERALS TAB (*BKC) 1 TABLET FEED TUBE (08:51)
[2023-12-22] MEDS: GABAPENTIN 100 MG CAPSULE FEED TUBE ×2 (08:51→12:02)
[2023-12-22] MEDS: ROSUVASTATIN 10 MG TABLET FEED TUBE (08:51)
[2023-12-22] MEDS: polyethylene glycoL 3350 17 GM POWD.PACK FEED TUBE (08:52)
[2023-12-22] MEDS: NYSTATIN 100,000 UNITS/ML SUSP 5 ML ORAL.SUSP PO ×4 (08:52→21:05)
[2023-12-22] MEDS: PANTOPRAZOLE SODIUM IV 40 MG VIAL IV PUSH (08:55)
[2023-12-22] MEDS: FUROSEMIDE INJ 40 MG/4 ML VIAL IV PUSH ×2 (09:01→17:31)
--- NOTE | 2023-12-22 11:13 | PCNFU ---
Nutrition Follow-Up Complete: Inability to meet nutrition needs PO related to dysphagia as evidenced by need for full tube feeding Goal: Meet estimated nutrition needs Support wound healing Patient is progressing towards goal. Pt current nutrition is DBCC/Pureed, Level 4 with Mild Thick liquids, Level 2/Flex BID. Last recorded weight is 108.5 kg, up from 104.9 kg on admit. Bowel Motility: +BM reported 12/19 Labs Reviewed: Glu 227, BUN 47, Na 136, K 3.1,Hct 26.74,Hgb 8.5 Meds Noted: Lantus, NovoLog, Lasix, Flagyl, MVI Skin: unstageable pressure ulcer-left heel Additional Notes: Patient had MBS 12/20 recommending pureed, level 4 diet with Mild Thick liquids, Level 2. Oral intake has been > 75% of meals. At this time patient will eating an oral diet. PEG is present but not being used at this time. Protein Modular of Flex BID has been added for additional protein needs due to pressure ulcer. Agree with diet orders. Monitoring weight, labs, skin, oral intake, meds every 3 days.
[2023-12-22 11:23] LABS: Glucose Point of Care 200 mg/dl (65-105)
--- NOTE | 2023-12-22 15:29 | PCOTNOTE ---
Attempted OT evaluation. Patient declining any/all activity due to being sore all over . Informed RN. Will continue to attempt.
--- NOTE | 2023-12-22 16:00 | PCPTNOTE ---
attempted PT eval, pt refused, will follow
[2023-12-22 16:31] LABS: Glucose Point of Care 191 mg/dl (65-105)
[2023-12-22] MEDS: GABAPENTIN 100 MG CAPSULE PO (17:32)
[2023-12-22] MEDS: polyethylene glycoL 3350 17 GM POWD.PACK PO (17:33)
[2023-12-22] MEDS: WARFARIN (*PBKC) 1 MG TABLET PO (17:39)
[2023-12-22] MEDS: VANCOMYCIN 1,500 MG/NS 500 ML 1,500 MG/500 ML BAG 200 MG IVPB (19:43)
[2023-12-22] MEDS: FAMOTIDINE 20 MG TABLET PO (19:43)
[2023-12-22 20:32] LABS: Glucose Point of Care 223 mg/dl (65-105)
[2023-12-22] MEDS: INSULIN GLARGINE (*BKC) 100 UNITS/ML 35 UNITS SUB-Q (20:59)
[2023-12-23] VITALS (12 sets, daily range): BP systolic 113–125; BP diastolic 53–61; PULSE 70–93; RESP 16–20; TEMP 36.8–37.7; O2SAT 94–99
--- NOTE | 2023-12-23 | ECHO_ITS ---
Patient Info Name: Diego Marquez Age: 73 years : 1950 Gender: Male Ht: 69 in Wt: 222 lbs BSA: 2.25 m2 HR: 72 bpm BP: 113 / 60 mmHg Heart Rhythm: Sinus Rhythm Technical Quality: Fair Exam Date: 12/23/2023 2:47 PM Exam Location: Echo Lab Patient Status: Inpatient Admit Date: 12/20/2023 Staff Ordering Physician: Marixa Dubose MD Life Agent: Rosi Olsen RDCS Attending Provider: Araceli Jacobs DO Exam Type: CA echo limited w contrast Study Info Indications - MRSA bactereemia Limited two-dimensional transthoracic echocardiogram is performed with contrast. Contrast/Agitated Saline Contrast/Ag. Saline: Definity Amount: 2.00 ml Administered By: Rosi Olsen RDCS Existing IV Access: Yes IV Access Condition: patent with no signs of infiltration Summary 1. Limited echo to assess for vegetation. 2. Definity contrast administered improved wall motion interpretation. 3. Left ventricular chamber dimension is normal. 4. Left ventricular systolic function is normal, estimated at 55-60%. 5. The left ventricular diastolic function is indeterminate as it is not assessed. 6. Right ventricular chamber dimension is mildly enlarged. 7. Linear artifact in right ventricle suggestive of catheter(s), pacemaker lead(s), or ICD lead(s). No obvious vegetation involving pacemaker lead. 8. Left atrial chamber dimension is mildly enlarged. 9. Linear artifact in the right atrium suggestive of catheter(s), pacemaker lead(s), or ICD lead(s). No obvious vegetation involving pacemaker leads. 10. There is moderate aortic valve sclerosis. 11. There is mild tricuspid valve regurgitation. 12. There is trace pulmonic regurgitation. 13. RVSP was not assessed. Left Ventricle Limited echo to assess for vegetation. Definity contrast administered improved wall motion interpretation. Tissue doppler is not performed. The left ventricular diastolic function is indeterminate as it is not assessed. Left ventricular chamber dimension is normal. Left ventricular systolic function is normal, estimated at 55-60%. Right Ventricle Right ventricular chamber dimension is mildly enlarged. Right ventricular systolic function is normal. Linear artifact in right ventricle suggestive of catheter(s), pacemaker lead(s), or ICD lead(s). No obvious vegetation involving pacemaker lead. Left Atria Left atrial chamber dimension is mildly enlarged. Right Atria Right atrial chamber dimension is normal. Linear artifact in the right atrium suggestive of catheter(s), pacemaker lead(s), or ICD lead(s). No obvious vegetation involving pacemaker leads. Aortic Valve The aortic valve is trileaflet. There is moderate aortic valve sclerosis. There is no aortic valve stenosis. There is no aortic valve regurgitation. No aortic valve vegetation visualized. Pulmonic Valve There is trace pulmonic regurgitation. No pulmonic valve vegetation visualized. Mitral Valve No obvious mitral valve vegetation visualized. There is no mitral valve stenosis. There is no mitral valve regurgitation. Tricuspid Valve There is mild tricuspid valve regurgitation. No tricuspid valve vegetation visualized. RVSP was not assessed. Tricuspid Valve Name Value Normal Estimated PAP/RSVP RA Pressure 5 m
[2023-12-23 05:18] LABS: Estimated CRCL calculation 84 ml/min; Estimated Glomerular Filt Rate > 60
[2023-12-23 05:26] LABS: INR 1.6; Prothrombin Time 19.3 Seconds (11.1-14.7)
--- NOTE | 2023-12-23 06:07 | PC.NURSE ---
PTS ABDOMEN ROUNDED AND FIRM, BOWEL SOUNDS PRESENT . HAVING FREQUENT CLEAR MUCOUS STOOLS, DR WALKER NOTIFIED. KUB ORDERED
[2023-12-23] MEDS: metroNIDAZOLE 500 MG/ISO 100ML 500 MG/100 ML BAG 100 MG IVPB ×2 (06:18→13:53)
[2023-12-23 06:28] LABS: Glucose Point of Care 93 mg/dl (65-105)
[2023-12-23 07:54] LABS: Glucose Point of Care 106 mg/dl (65-105)
[2023-12-23] MEDS: GABAPENTIN 100 MG CAPSULE PO ×3 (08:48→17:57)
[2023-12-23] MEDS: THERAPEUTIC MULTIVITAMINS/MINERALS TAB (*BKC) 1 TABLET PO (08:48)
[2023-12-23] MEDS: FAMOTIDINE 20 MG TABLET PO ×2 (08:48→20:17)
[2023-12-23] MEDS: ROSUVASTATIN 10 MG TABLET PO (08:48)
[2023-12-23] MEDS: ENOXAPARIN 100 MG/ML SYRINGE SUB-Q ×2 (08:49→20:19)
[2023-12-23] MEDS: CEFEPIME 1 GM/NS 50 ML 1 GM/50 ML BAG IVPB ×2 (08:49→20:32)
[2023-12-23] MEDS: polyethylene glycoL 3350 17 GM POWD.PACK PO ×2 (08:49→17:57)
[2023-12-23] MEDS: PANTOPRAZOLE SODIUM IV 40 MG VIAL IV PUSH (08:49)
[2023-12-23] MEDS: NYSTATIN 100,000 UNITS/ML SUSP 5 ML ORAL.SUSP PO ×4 (08:49→20:18)
[2023-12-23] MEDS: FUROSEMIDE INJ 40 MG/4 ML VIAL IV PUSH ×2 (08:49→17:58)
[2023-12-23] MEDS: POTASSIUM CHLORIDE 20 MEQ PACKET (FOR LIQUID) 40 MEQ PO ×3 (08:49→17:57)
[2023-12-23 09:57] LABS: Basophils Percent Auto 0.3 % (0.2-1.2); Hematocrit 27.6 % (42.0-52.0); Hemoglobin 8.9 g/dL (14.0-18.0); Immature Granulocyte Absolute 0.19 K/mm3 (0.00-0.031); Immature Granulocyte Percent A 1.2 % (0-0.5); Lymphocytes Absolute Auto 1.38 K/mm3 (0.9-3.2); Lymphocytes Percent Auto 8.7 % (18.3-44.2); Mean Corpuscular HGB Conc 32.2 g/dl (32-36); Mean Corpuscular Hemoglobin 28.6 pg (26-34); Mean Corpuscular Volume 88.7 fl (80-100); Mean Platelet Volume 10.6 fl (7.4-10.4); Monocytes Absolute Auto 1.4 K/mm3 (0.1-0.6); Monocytes Percent Auto 8.6 % (2.6-8.5); Neutrophils Absolute Auto 12.9 K/mm3 (1.3-6.7); Neutrophils Percent Auto 81.2 % (45.5-73.1); Platelet Count Result 257 k/mm3 (150-375); Red Blood Count 3.11 M/mm3 (4.6-6.20); Red Cell Distribution Width 18.8 % (11.5-14.5); White Blood Count 15.9 K/mm3 (4.5-10.0)
[2023-12-23 10:13] LABS: Alanine Aminotransferase 49 U/L (6-50); Albumin Level 3.2 g/dL (3.5-5.1); Alkaline Phosphatase 132 U/L (38-126); Anion Gap 9 mmol/L (4-12); Aspartate Amino Transferase 66 U/L (17-59); Bilirubin,Total 0.7 mg/dL (0.2-1.3); Blood Urea Nitrogen 43 mg/dL (9-20); Calcium 8.5 mg/dL (8.4-10.2); Carbon Dioxide 30 mmol/L (22-30); Chloride 94 mmol/L (98-107); Estimated CRCL calculation 84 ml/min; Estimated Glomerular Filt Rate > 60; Glucose 88 mg/dL (65-110); Magnesium 1.9 mg/dL (1.6-2.3); Potassium 2.8 mmol/L (3.4-5.0); Sodium 133 mmol/L (137-145)
--- NOTE | 2023-12-23 11:15 | PC.NURSE ---
pt taken down for CT
--- NOTE | 2023-12-23 11:34 | PC.NURSE ---
pt brought back from CT. returned to room
[2023-12-23 11:46] LABS: Glucose Point of Care 215 mg/dl (65-105)
[2023-12-23] MEDS: INSULIN ASPART (*BKC) 100 UNITS/ML 6 UNITS SUB-Q ×2 (12:20→17:58)
[2023-12-23] MEDS: INSULIN ASPART (*BKC) 100 UNITS/ML SUB-Q ×2 (12:20→20:22)
--- NOTE | 2023-12-23 13:44 | PM.IMPN ---
Progress Note: A&P Assessment and Plan (1) Type 2 diabetes mellitus with hyperglycemia, with long-term current use of insulin: Code(s): E11.65 - Type 2 diabetes mellitus with hyperglycemia; Z79.4 - half-way (current) use of insulin Status: Acute (2) Physical deconditioning: Code(s): R53.81 - Other malaise Status: Acute (3) UTI (urinary tract infection): Code(s): N39.0 - Urinary tract infection, site not specified Status: Acute (4) Bacteremia: Code(s): R78.81 - Bacteremia Status: Acute Plan 73-year-old male with past medical history of CAD status post CABG, peripheral artery disease, atrial fibrillation with sick sinus syndrome status post permanent pacemaker presents to ED from SNF with dyspnea. Of note patient was hospitalized 10/20-11/10 for septic shock secondary to Pseudomonas pneumonia, right lower extremity cellulitis. During that hospitalization completed course of meropenem. 1.Acute CHF exacerbation -BNP 6730 -troponin elevation at 0.049 likely secondary to supply demand mismatch from the heart strain from fluid overload, no chest pain, ACS ruled out Continue with Lasix 40 mg IV b.i.d. Strict I's and O's Daily weight if possible Supplement potassium 2. MRSA bacteremia: Continue with vancomycin Blood culture from day of admission that is 12/20/2023 is positive for MRSA Blood culture from 12/22/2023 is growing GPCs Will obtain another blood culture today Will obtain echocardiogram, patient has history of pacemaker Will likely need DEDRA Will get Cardiology consult Although leukocytosis is improving CT thoracic spine unlikely with osteomyelitis, CT abdomen pelvis with unremarkable pelvis/no bony lesions Might eventually need to be transferred out with ID is available 3. Pseudomonas UTI: Continue with cefepime 4. Acute encephalopathy: Likely secondary to infection Resolved 5. Hyponatremia: Has been improving with diuresis Recheck BMP in a.m. 6. History of atrial fibrillation: Currently INR subtherapeutic Continue with Coumadin along with therapeutic dosing of Lovenox Will check PT INR daily 7. Constipation: Continue with MiraLax Add senna Colace 8.type 2 diabetes: Blood glucose checked t.i.d. a.c. and HS Continue with Lantus 35 units Continue with mealtime insulin 6 units along with sliding scale insulin Adjust dose as needed 9.chronic dysphagia: Patient currently on pureed diet, level 4, thickened liquids Patient does have PEG tube as well 10. Code status: Full 11. DVT prophylaxis: On Lovenox and Coumadin as mentioned above 12. Disposition: Pending improvement Time Spent With Patient Time with patient: 25 - 35 minutes Subjective Date/time seen: 12/23/23 13:44 Interval history: No acute events overnight Review of Systems Review of Systems: All systems reviewed & are unremarkable except as noted in HPI and below Exam Narrative: - GENERAL: no acute distress. - EYES: EOMI. Anicteric. - HENT: Moist mucous membranes. - LUNGS: Coarse lung sounds in all lung bolden, no wheezing, rales present - CARDIOVASCULAR: Regular rate and rhythm. - ABDOMEN: Soft, non-tender and non-distended. No palpable masses. - EXTREMITIES: 2+ pitting edema lower extremities, some wrinkling of skin, venous stasis changes - NEUROLOGIC: No focal neurological deficits. CN II-XII grossly intact. General weakness - PSYCHIATRIC: Awake, Alert and oriented to place. Appropriate mood and affect. - SKIN: No rashes or lesions. Warm. - LYMPH: No cervical lymphadenopathy. Objective Data Vital Signs Vital Signs: Vital Signs - 24 hr 12/22/23 13:49 12/22/23 16:00 12/22/23 21:45 Temperature 98.3 F 98.4 F Pulse Rate 76 80 86 Respiratory Rate 18 18 Blood Pressure 118/57 L 134/55 L Pulse Oximetry 98 96 Oxygen Delivery 12/22/23 20:00 12/23/23 00:00 12/23/23 04:00 Temperature Pulse Rate 100 83 93 Respiratory Rate Blood Pressure Pul
[2023-12-23] MEDS: PERFLUTREN LIPID MICROSPHERES 1.5 ML VIAL DILUTED TO 10 ML TOTAL VOLUME IV PUSH (14:35)
--- NOTE | 2023-12-23 14:45 | PM.CNCAR ---
Assessment and Plan Assessment and plan (1) Bacteremia: Code(s): R78.81 - Bacteremia Status: Acute Assessment and Plan: On antibiotics as per hospitalist. Echo has been ordered to check valves and pacemaker lead. (2) UTI (urinary tract infection): Code(s): N39.0 - Urinary tract infection, site not specified Status: Acute Assessment and Plan: On antibiotics. (3) Atrial fibrillation: Onset Date: 04/20/17 Code(s): I48.91 - Unspecified atrial fibrillation Status: Chronic Assessment and Plan: Rate is normal. On Warfarin which is subtherapeutic. On Lovenox. (4) CAD (coronary artery disease), autologous vein bypass graft: Code(s): I25.810 - Atherosclerosis of coronary artery bypass graft(s) without angina pectoris Status: Acute Assessment and Plan: Stable. (5) Hypertension: Code(s): I10 - Essential (primary) hypertension Status: Acute Assessment and Plan: Stable. (6) Dyslipidemia: Code(s): E78.5 - Hyperlipidemia, unspecified Status: Acute Assessment and Plan: On Rosuvastatin. (7) Diabetes mellitus: Code(s): E11.9 - Type 2 diabetes mellitus without complications Status: Chronic (8) Diastolic heart failure: Code(s): I50.30 - Unspecified diastolic (congestive) heart failure Status: Acute Assessment and Plan: Acute on chronic. Check echo. On lasix 40 mg IV BID. History of Present Illness History of Present Illness Consult date/time: 12/23/23 14:45 Reason For Visit: Acute Hypoxic Respiratory Failure/Heart Failure Ex Narrative: Patient is a 73 yr old man who is my regular cardiology patient presents to hospital with SOB. He has a history of CAD with CABG, diastolic dysfunction, DM, hypertension, dyslipidemia, SAKSHI on CPAP, [employer] pacemaker, Atrial fib with SVR on warfarin, obesity. He was admitted from SNF with sob and found to be sob and has UTI with MRSA bacteremia. Last month he had septic shock from pseudomonas pneumonia. Denies chest pain. He is sob now. He fell due to loss of balance and can only walk with a walker around his house. He has mild edema of legs. Denies orthopnea, palpitations. Cardiovascular Procedures Echo/MUGA:: 12/23/20 Echo: EF 55-60%, mild LVH, diastolic dysfunction (E/e' 14), mild RVE/hypokinesis, mod biatrial enlargement, mild MR/TR, RVSP 45 mmHg. Echo (EF 55%, mild-mod LVH, diastolic dysfunction not assessed, mild-mod LAE, mild MR/TR, trace PI.) - 04/28/2015 Stress Tests:: Devices (MRI compatible single chamber PPM implanted by Dr. Grijalva.) - 05/06/2015 EKG (Atrial fibrillation at 46 bpm, IVCD, borderline ST-T wave abnormality in diffuse leads, delayed precordial R/S transition.) - 04/21/2015 Sleep Study (SAKSHI.) - 04/29/2015 Review of Systems Review of Systems: All systems reviewed & are unremarkable except as noted in HPI and below Constitutional: Constitutional: Reports as per HPI, Denies chills and Denies fever(s) Cardiovascular: Cardiovascular: Reports as per HPI and Denies chest pain Respiratory: Respiratory: Reports as per HPI and Reports dyspnea Gastrointestinal: Gastrointestinal: Reports as per HPI and Denies abdominal pain Genitourinary: Genitourinary: Reports as per HPI and Denies dysuria Musculoskeletal: Musculoskeletal: Reports as per HPI Neurologic: Reports as per HPI, Denies dizziness and Denies syncope [facility] Past Medical History Medical History (Updated 12/23/23 @ 14:53 by Celso Haro DO) Anemia Anticoagulant long-term use Arthritis Atrial fibrillation (04/20/17) On chronic anticoagulation with warfarin CAD (coronary artery disease), autologous vein bypass graft Candidiasis of other urogenital sites Chronic venous stasis dermatitis of both lower extremities Diabetes mellitus Diabetic peripheral neuropathy Erectile dysfunction Essential hypertension Hemochromatosis However patient's iron studies demonstrate
--- NOTE | 2023-12-23 14:48 | PCPTNOTE ---
Addendum entered by Cherry Ji DPT 12/23/23 14:49: Patient currently getting ultrasound 14:49, patient refuses for rest of day due to fatigue from other testing today Original Note: Patient currently getting ultrasound 14:49, patien refuses for rest of day due to fatigue from other testing today.
--- NOTE | 2023-12-23 15:28 | IVDEFINITY ---
Prior to administration of IV Definity the patient was educated on the risks and benefits of the imaging enhancing agent including potential adverse side effects. The patient verbalized understanding. Allergies were verified. No exclusion criteria were identified and at least one of the following inclusion criteria were met: 1) physician request, 2) patient technically difficult to image (per the [place] [employer] guidelines of two or more segments not discernable within the apical view), or 3) questionable left ventricular function. ?
[2023-12-23] MEDS: VANCOMYCIN 1,500 MG/NS 500 ML 1,500 MG/500 ML BAG 200 MG IVPB (15:29)
[2023-12-23 16:31] LABS: Glucose Point of Care 167 mg/dl (65-105)
[2023-12-23] MEDS: SENNA/DOCUSATE SODIUM TABLET 2 TAB PO (17:57)
[2023-12-23] MEDS: ACETAMINOPHEN 325 MG TABLET 650 MG PO (20:17)
[2023-12-23 20:18] LABS: Glucose Point of Care 247 mg/dl (65-105)
[2023-12-23] MEDS: INSULIN GLARGINE (*BKC) 100 UNITS/ML 35 UNITS SUB-Q (21:04)
[2023-12-24] VITALS (11 sets, daily range): BP systolic 115–120; BP diastolic 50–57; PULSE 68–78; RESP 17–18; TEMP 36.7–37; O2SAT 95–100
[2023-12-24 06:08] LABS: Basophils Absolute Auto 0.1 K/mm3 (0.0-0.1); Basophils Percent Auto 0.3 % (0.2-1.2); Eosinophils Percent Auto 0.1 % (0-4.4); Hematocrit 28.3 % (42.0-52.0); Hemoglobin 8.8 g/dL (14.0-18.0); Lymphocytes Absolute Auto 1.52 K/mm3 (0.9-3.2); Lymphocytes Percent Auto 9.1 % (18.3-44.2); Mean Corpuscular HGB Conc 31.1 g/dl (32-36); Mean Corpuscular Hemoglobin 27.8 pg (26-34); Mean Corpuscular Volume 89.3 fl (80-100); Mean Platelet Volume 10.1 fl (7.4-10.4); Monocytes Absolute Auto 1.6 K/mm3 (0.1-0.6); Monocytes Percent Auto 9.2 % (2.6-8.5); Neutrophils Absolute Auto 13.1 K/mm3 (1.3-6.7); Neutrophils Percent Auto 78.3 % (45.5-73.1); Platelet Count Result 261 k/mm3 (150-375); Red Blood Count 3.17 M/mm3 (4.6-6.20); Red Cell Distribution Width 18.8 % (11.5-14.5); White Blood Count 16.8 K/mm3 (4.5-10.0)
[2023-12-24 06:18] LABS: INR 1.8
[2023-12-24 06:29] LABS: Alanine Aminotransferase 35 U/L (6-50); Alkaline Phosphatase 124 U/L (38-126); Anion Gap 4 mmol/L (4-12); Aspartate Amino Transferase 39 U/L (17-59); Bilirubin,Total 0.7 mg/dL (0.2-1.3); Blood Urea Nitrogen 39 mg/dL (9-20); Calcium 8.3 mg/dL (8.4-10.2); Carbon Dioxide 35 mmol/L (22-30); Chloride 94 mmol/L (98-107); Estimated CRCL calculation 84 ml/min; Estimated Glomerular Filt Rate > 60; Glucose 179 mg/dL (65-110); Magnesium 1.9 mg/dL (1.6-2.3); Potassium 3.1 mmol/L (3.4-5.0); Sodium 133 mmol/L (137-145)
[2023-12-24 06:46] LABS: CRP 21.1 mg/dL (<1.0)
[2023-12-24 06:48] LABS: Erythrocyte Sedimentation Rate > 140 mm/hr (0-20)
--- NOTE | 2023-12-24 07:28 | PM.IMPN ---
Progress Note: A&P Assessment and Plan (1) Type 2 diabetes mellitus with hyperglycemia, with long-term current use of insulin: Code(s): E11.65 - Type 2 diabetes mellitus with hyperglycemia; Z79.4 - senior care (current) use of insulin Status: Acute (2) Physical deconditioning: Code(s): R53.81 - Other malaise Status: Acute (3) UTI (urinary tract infection): Code(s): N39.0 - Urinary tract infection, site not specified Status: Acute (4) Bacteremia: Code(s): R78.81 - Bacteremia Status: Acute Plan 73-year-old male with past medical history of CAD status post CABG, peripheral artery disease, atrial fibrillation with sick sinus syndrome status post permanent pacemaker presents to ED from SNF with dyspnea. Of note patient was hospitalized 10/20-11/10 for septic shock secondary to Pseudomonas pneumonia, right lower extremity cellulitis. During that hospitalization completed course of meropenem. 1.Acute CHF exacerbation -BNP 6730 -troponin elevation at 0.049 likely secondary to supply demand mismatch from the heart strain from fluid overload, no chest pain, ACS ruled out Continue with Lasix 40 mg IV b.i.d. Strict I's and O's Daily weight if possible Supplement potassium 2. MRSA bacteremia: Continue with vancomycin Blood culture from day of admission that is 12/20/2023 is positive for MRSA Blood culture from 12/22/2023 is growing MRSA blood culture 12/23: pending Although leukocytosis is improving CT thoracic spine unlikely with osteomyelitis, CT abdomen pelvis with unremarkable pelvis/no bony lesions Cardiology consult Appreciate cardiology's consultation, platelets DEDRA a.m. Tuesday 3. Pseudomonas UTI: Continue with cefepime 4. Acute encephalopathy: Likely secondary to infection Resolved 5. Hyponatremia: Has been improving with diuresis Recheck BMP in a.m. 6. History of atrial fibrillation: Currently INR subtherapeutic Continue with Coumadin along with therapeutic dosing of Lovenox Will check PT INR daily 7. Constipation: Continue with MiraLax Add senna Colace 8.type 2 diabetes: Blood glucose checked t.i.d. a.c. and HS Continue with Lantus 35 units Continue with mealtime insulin 6 units along with sliding scale insulin Adjust dose as needed 9.chronic dysphagia: Patient currently on pureed diet, level 4, thickened liquids Patient does have PEG tube as well 10. Code status: Full 11. DVT prophylaxis: On Lovenox and Coumadin as mentioned above 12. Disposition: Pending improvement Subjective Date/time seen: 12/24/23 07:28 Interval history: I saw exam patient today in presents of patient's son. Patient is feeling better, patient mental status is improving. Alert oriented x3. Patient afebrile, blood pressure stable, leukocytosis persists. Blood culture on December 21 grew MRSA Exam Narrative: - GENERAL: no acute distress. - EYES: EOMI. Anicteric. - HENT: Moist mucous membranes. - LUNGS: Coarse lung sounds in all lung bolden, no wheezing, rales present - CARDIOVASCULAR: Regular rate and rhythm. - ABDOMEN: Soft, non-tender and non-distended. No palpable masses. - EXTREMITIES: 2+ pitting edema lower extremities, some wrinkling of skin, venous stasis changes - NEUROLOGIC: No focal neurological deficits. CN II-XII grossly intact. General weakness - PSYCHIATRIC: Awake, Alert and oriented to place. Appropriate mood and affect. - SKIN: No rashes or lesions. Warm. - LYMPH: No cervical lymphadenopathy. Objective Data Vital Signs Vital Signs: Vital Signs - 24 hr 12/23/23 08:46 12/23/23 09:20 12/23/23 08:00 Temperature Pulse Rate 72 74 Respiratory Rate 20 Blood Pressure 113/60 Pulse Oximetry 94 Oxygen Delivery Room Air 12/23/23 09:10 12/23/23 12:00 12/23/23 13:50 Temperature 98.2 F Pulse Rate 83 85 Respiratory Rate 18 Blood Pressure 125/61 Pulse Oximetry 99 Oxygen Delivery Room Air 12/23/23 16:00
--- NOTE | 2023-12-24 08:06 | PM.PNCARD ---
Progress Note: A&P Assessment and Plan (1) Bacteremia: Code(s): R78.81 - Bacteremia Status: Acute Assessment and Plan: On antibiotics as per hospitalist. 12/23/23 Limited echo: EF 55-60%, diastolic function not assessed, no obvious vegetation of heart valves or pacemaker lead. Plan for DEDRA Tuesday morning and patient is agreeable. (2) UTI (urinary tract infection): Code(s): N39.0 - Urinary tract infection, site not specified Status: Acute Assessment and Plan: On antibiotics. (3) Atrial fibrillation: Onset Date: 04/20/17 Code(s): I48.91 - Unspecified atrial fibrillation Status: Chronic Assessment and Plan: Rate is normal. On Warfarin which is subtherapeutic. On Lovenox. (4) CAD (coronary artery disease), autologous vein bypass graft: Code(s): I25.810 - Atherosclerosis of coronary artery bypass graft(s) without angina pectoris Status: Acute Assessment and Plan: Stable. (5) Hypertension: Code(s): I10 - Essential (primary) hypertension Status: Acute Assessment and Plan: Stable. (6) Dyslipidemia: Code(s): E78.5 - Hyperlipidemia, unspecified Status: Acute Assessment and Plan: On Rosuvastatin. (7) Diabetes mellitus: Code(s): E11.9 - Type 2 diabetes mellitus without complications Status: Chronic (8) Diastolic heart failure: Code(s): I50.30 - Unspecified diastolic (congestive) heart failure Status: Acute Assessment and Plan: Acute on chronic. On lasix 40 mg IV BID. Replete potassium. Subjective Date/time seen: 12/24/23 08:06 Interval history: Denies chest pain or sob. No fever or chills. No complaints. Exam Const: General: cooperative, healthy appearing and comfortable Orientation/consciousness: oriented to person, oriented to place and oriented to time Resp: Auscultation: clear to auscultation bilaterally, no crackles, no rales, no rhonchi and no wheezes Cardio: Rate: regular rate Rhythm: abnormal rhythm Heart sounds: no murmurs Peripheral pulses: dorsalis pedis present Neuro: General: oriented to person, oriented to place and oriented to time Extrem: Right lower extremity: no edema Left lower extremity: no edema Objective Data Vital Signs Vital Signs: Vital Signs - 24 hr 12/23/23 08:46 12/23/23 09:20 12/23/23 09:10 Temperature Pulse Rate 72 Respiratory Rate 20 Blood Pressure 113/60 Pulse Oximetry 94 Oxygen Delivery Room Air Room Air 12/23/23 12:00 12/23/23 13:50 12/23/23 16:00 Temperature 98.2 F Pulse Rate 83 85 86 Respiratory Rate 18 Blood Pressure 125/61 Pulse Oximetry 99 Oxygen Delivery 12/23/23 20:15 12/23/23 20:17 12/23/23 20:00 Temperature 99.6 F 99.8 F H Pulse Rate 85 Respiratory Rate 20 Blood Pressure 120/53 L Pulse Oximetry 97 Oxygen Delivery Room Air 12/23/23 21:08 12/23/23 20:00 12/24/23 00:00 Temperature Pulse Rate 70 80 75 Respiratory Rate Blood Pressure Pulse Oximetry 94 Oxygen Delivery Autopap 12/24/23 02:55 12/24/23 04:00 12/24/23 05:23 Temperature 98.1 F Pulse Rate 71 78 76 Respiratory Rate 18 Blood Pressure 117/53 L Pulse Oximetry 97 Oxygen Delivery Autopap Intake/Output Intake/Output: Intake & Output 12/21/23 12/22/23 12/23/23 12/24/23 23:59 23:59 23:59 23:59 Intake Total 1110 2930 2280 Output Total 1900 4250 4800 600 [facility]790 -1320 -2520 -600 Meds/Results Medications: Active Medications Generic Name Dose Route Start Last Admin Trade Name Freq PRN Reason Stop Dose Admin Acetaminophen 650 mg 12/20/23 17:36 12/23/23 20:17 Acetaminophen 325 Mg Tablet PO 650 mg Q4H PRN Administration Mild Pain (1-3) or Fever Bisacodyl 10 mg 12/20/23 17:36 Bisacodyl 10 Mg Suppository RECTAL ONCE PRN Constipation Dextrose 12.5 gm 12/20/23 17:10 Dextrose 50% 25 Gm/50 Ml Syringe IV PUS
[2023-12-24 08:08] LABS: Glucose Point of Care 175 mg/dl (65-105)
[2023-12-24] MEDS: CEFEPIME 1 GM/NS 50 ML 1 GM/50 ML BAG IVPB ×2 (08:58→20:05)
[2023-12-24] MEDS: INSULIN ASPART (*BKC) 100 UNITS/ML 6 UNITS SUB-Q ×3 (08:58→17:30)
[2023-12-24] MEDS: FAMOTIDINE 20 MG TABLET PO ×2 (08:59→20:05)
[2023-12-24] MEDS: ENOXAPARIN 100 MG/ML SYRINGE SUB-Q ×2 (08:59→20:08)
[2023-12-24] MEDS: SENNA/DOCUSATE SODIUM TABLET 2 TAB PO ×2 (08:59→17:29)
[2023-12-24] MEDS: FUROSEMIDE INJ 40 MG/4 ML VIAL IV PUSH (08:59)
[2023-12-24] MEDS: ROSUVASTATIN 10 MG TABLET PO (09:00)
[2023-12-24] MEDS: POTASSIUM CHLORIDE 20 MEQ PACKET (FOR LIQUID) 40 MEQ PO (09:00)
[2023-12-24] MEDS: PANTOPRAZOLE SODIUM IV 40 MG VIAL IV PUSH (09:00)
[2023-12-24] MEDS: THERAPEUTIC MULTIVITAMINS/MINERALS TAB (*BKC) 1 TABLET PO (09:00)
[2023-12-24] MEDS: NYSTATIN 100,000 UNITS/ML SUSP 5 ML ORAL.SUSP PO ×4 (09:00→20:05)
[2023-12-24] MEDS: polyethylene glycoL 3350 17 GM POWD.PACK PO (09:00)
[2023-12-24] MEDS: GABAPENTIN 100 MG CAPSULE PO ×3 (09:00→17:30)
[2023-12-24] MEDS: VANCOMYCIN 1,500 MG/NS 500 ML 1,500 MG/500 ML BAG 200 MG IVPB (09:49)
[2023-12-24 12:03] LABS: Glucose Point of Care 207 mg/dl (65-105)
[2023-12-24] MEDS: INSULIN ASPART (*BKC) 100 UNITS/ML SUB-Q ×2 (12:57→20:09)
[2023-12-24 16:44] LABS: Glucose Point of Care 187 mg/dl (65-105)
[2023-12-24] MEDS: FUROSEMIDE 40 MG TABLET PO (17:29)
[2023-12-24] MEDS: WARFARIN (*PBKC) 1 MG TABLET PO (17:29)
[2023-12-24 19:57] LABS: Glucose Point of Care 215 mg/dl (65-105)
[2023-12-24] MEDS: INSULIN GLARGINE (*BKC) 100 UNITS/ML 35 UNITS SUB-Q (20:08)
--- NOTE | 2023-12-24 23:23 | PM.EVENT ---
Event Note Event Note Event Note: preliminary blood culture gram positive cocci cluster
[2023-12-25] VITALS (12 sets, daily range): BP systolic 104–138; BP diastolic 58–73; PULSE 70–83; RESP 18–20; TEMP 36.1–37.1; O2SAT 94–98
[2023-12-25] MEDS: VANCOMYCIN 1,500 MG/NS 500 ML 1,500 MG/500 ML BAG 200 MG IVPB ×2 (01:08→20:50)
[2023-12-25 06:08] LABS: Estimated CRCL calculation 95 ml/min; Estimated Glomerular Filt Rate > 60
[2023-12-25 06:10] LABS: INR 1.5
[2023-12-25] MEDS: CEFEPIME 1 GM/NS 50 ML 1 GM/50 ML BAG IVPB ×2 (07:46→20:50)
[2023-12-25 07:48] LABS: Glucose Point of Care 185 mg/dl (65-105)
[2023-12-25] MEDS: INSULIN ASPART (*BKC) 100 UNITS/ML 6 UNITS SUB-Q ×3 (07:56→16:47)
--- NOTE | 2023-12-25 07:58 | PM.PNCARD ---
Progress Note: A&P Assessment and Plan (1) Bacteremia: Code(s): R78.81 - Bacteremia Status: Acute Assessment and Plan: Recurrent MRSA. On antibiotics as per hospitalist. 12/23/23 Limited echo: EF 55-60%, diastolic function not assessed, no obvious vegetation of heart valves or pacemaker lead. Plan for DEDRA Tuesday morning and patient is agreeable. Keep NPO after midnight. (2) UTI (urinary tract infection): Code(s): N39.0 - Urinary tract infection, site not specified Status: Acute Assessment and Plan: On antibiotics. (3) Atrial fibrillation: Onset Date: 04/20/17 Code(s): I48.91 - Unspecified atrial fibrillation Status: Chronic Assessment and Plan: Rate is normal. On Warfarin which is subtherapeutic. On Lovenox. (4) CAD (coronary artery disease), autologous vein bypass graft: Code(s): I25.810 - Atherosclerosis of coronary artery bypass graft(s) without angina pectoris Status: Acute Assessment and Plan: Stable. (5) Hypertension: Code(s): I10 - Essential (primary) hypertension Status: Acute Assessment and Plan: Stable. (6) Dyslipidemia: Code(s): E78.5 - Hyperlipidemia, unspecified Status: Acute Assessment and Plan: On Rosuvastatin. (7) Diabetes mellitus: Code(s): E11.9 - Type 2 diabetes mellitus without complications Status: Chronic (8) Diastolic heart failure: Code(s): I50.30 - Unspecified diastolic (congestive) heart failure Status: Acute Assessment and Plan: Appears euvolemic. Acute on chronic. On lasix 40 mg PO BID. Replete potassium. Subjective Date/time seen: 12/25/23 07:58 Interval history: Denies chest pain or sob. No fever or chills. No complaints. Exam Const: General: cooperative, healthy appearing and comfortable Orientation/consciousness: oriented to person, oriented to place and oriented to time Resp: Auscultation: clear to auscultation bilaterally, no crackles, no rales, no rhonchi and no wheezes Cardio: Rate: regular rate Rhythm: abnormal rhythm Heart sounds: no murmurs Peripheral pulses: dorsalis pedis present Neuro: General: oriented to person, oriented to place and oriented to time Extrem: Right lower extremity: no edema Left lower extremity: no edema Other: Mild edema of legs Objective Data Vital Signs Vital Signs: Vital Signs - 24 hr 12/24/23 08:49 12/24/23 08:00 12/24/23 09:00 Temperature Pulse Rate 77 Respiratory Rate Blood Pressure Pulse Oximetry Oxygen Delivery Room Air Room Air 12/24/23 12:00 12/24/23 14:00 12/24/23 16:00 Temperature 98.5 F Pulse Rate 75 78 73 Respiratory Rate 17 Blood Pressure 115/50 L Pulse Oximetry 99 Oxygen Delivery 12/24/23 20:00 12/24/23 20:00 12/24/23 21:39 Temperature Pulse Rate 71 Respiratory Rate Blood Pressure Pulse Oximetry 95 Oxygen Delivery Room Air Autopap 12/24/23 22:00 12/25/23 00:00 12/25/23 04:00 Temperature 98.6 F Pulse Rate 68 70 72 Respiratory Rate 18 Blood Pressure 120/57 L Pulse Oximetry 100 Oxygen Delivery 12/25/23 06:00 Temperature 97.5 F L Pulse Rate 74 Respiratory Rate 18 Blood Pressure 111/58 L Pulse Oximetry 98 Oxygen Delivery Intake/Output Intake/Output: Intake & Output 12/22/23 12/23/23 12/24/23 12/25/23 23:59 23:59 23:59 23:59 Intake Total 2930 2280 2420 500 Output Total 4250 4800 2550 2700 Balance -6950 -8820 -130 -2200 Meds/Results Medications: Active Medications Generic Name Dose Route Start Last Admin Trade Name Freq PRN Reason Stop Dose Admin Acetaminophen 650 mg 12/20/23 17:36 12/23/23 20:17 Acetaminophen 325 Mg Tablet PO 650 mg Q4H PRN Administration Mild Pain (1-3) or Fever Bisacodyl 10 mg 12/20/23 17:36 Bisacodyl 10 Mg Suppository RECTAL ONCE PRN Constipation Dextrose 12.5 gm 12/20/23 17:10 Dextrose
--- NOTE | 2023-12-25 08:03 | PM.IMPN ---
Progress Note: A&P Assessment and Plan (1) Type 2 diabetes mellitus with hyperglycemia, with long-term current use of insulin: Code(s): E11.65 - Type 2 diabetes mellitus with hyperglycemia; Z79.4 - senior living (current) use of insulin Status: Acute (2) Physical deconditioning: Code(s): R53.81 - Other malaise Status: Acute (3) UTI (urinary tract infection): Code(s): N39.0 - Urinary tract infection, site not specified Status: Acute (4) Bacteremia: Code(s): R78.81 - Bacteremia Status: Acute Plan 73-year-old male with past medical history of CAD status post CABG, peripheral artery disease, atrial fibrillation with sick sinus syndrome status post permanent pacemaker presents to ED from SNF with dyspnea. Of note patient was hospitalized 10/20-11/10 for septic shock secondary to Pseudomonas pneumonia, right lower extremity cellulitis. During that hospitalization completed course of meropenem. 1.Acute CHF exacerbation -BNP 6730 -troponin elevation at 0.049 likely secondary to supply demand mismatch from the heart strain from fluid overload, no chest pain, ACS ruled out Received with Lasix 40 mg IV b.i.d. she should transition to furosemide 40 mg b.i.d. p.o. Strict I's and O's Daily weight if possible Supplement potassium Compensated currently 2. MRSA bacteremia: Continue with vancomycin Blood culture from day of admission that is 12/20/2023 is positive for MRSA Blood culture from 12/22/2023 is growing MRSA blood culture 12/23: pending Although leukocytosis is improving CT thoracic spine unlikely with osteomyelitis, CT abdomen pelvis with unremarkable pelvis/no bony lesions Cardiology consult Appreciate cardiology's consultation, platelets DEDRA a.m. Tuesday 3. Pseudomonas UTI: Continue with cefepime 4. Acute encephalopathy: Likely secondary to infection Resolved 5. Hyponatremia: Has been improving with diuresis Recheck BMP in a.m. 6. History of atrial fibrillation: Currently INR subtherapeutic Continue with Coumadin along with therapeutic dosing of Lovenox Will check PT INR daily 7. Constipation: Continue with MiraLax Add senna Colace 8.type 2 diabetes: Blood glucose checked t.i.d. a.c. and HS Continue with Lantus 35 units Continue with mealtime insulin 6 units along with sliding scale insulin Adjust dose as needed 9.chronic dysphagia: Patient currently on pureed diet, level 4, thickened liquids Patient does have PEG tube as well 10. Code status: Full 11. DVT prophylaxis: On Lovenox and Coumadin as mentioned above 12. Disposition: Pending improvement Subjective Date/time seen: 12/25/23 08:03 Interval history: I saw and examined patient today, patient feels weak generally, he denies abdomen pain nausea vomiting diarrhea. Patient is afebrile, leukocytosis persists, Exam Narrative: - GENERAL: no acute distress. - EYES: EOMI. Anicteric. - HENT: Moist mucous membranes. - LUNGS: Coarse lung sounds in all lung bolden, no wheezing, rales present - CARDIOVASCULAR: Regular rate and rhythm. - ABDOMEN: Soft, non-tender and non-distended. No palpable masses. - EXTREMITIES: 2+ pitting edema lower extremities, some wrinkling of skin, venous stasis changes - NEUROLOGIC: No focal neurological deficits. CN II-XII grossly intact. General weakness - PSYCHIATRIC: Awake, Alert and oriented to place. Appropriate mood and affect. - SKIN: No rashes or lesions. Warm. - LYMPH: No cervical lymphadenopathy. Objective Data Vital Signs Vital Signs: Vital Signs - 24 hr 12/24/23 08:49 12/24/23 09:00 12/24/23 12:00 Temperature Pulse Rate 75 Respiratory Rate Blood Pressure Pulse Oximetry Oxygen Delivery Room Air Room Air 12/24/23 14:00 12/24/23 16:00 12/24/23 20:00 Temperature 98.5 F Pulse Rate 78 73 71 Respiratory Rate 17 Blood Pressure 115/50 L Pulse Oximetry 99 Oxygen Delivery 12/24/23 20:00 12/24/23 21:39
[2023-12-25] MEDS: POTASSIUM CHLORIDE 20 MEQ PACKET (FOR LIQUID) 40 MEQ PO (08:04)
[2023-12-25] MEDS: ENOXAPARIN 100 MG/ML SYRINGE SUB-Q ×2 (08:05→20:51)
[2023-12-25] MEDS: SENNA/DOCUSATE SODIUM TABLET 2 TAB PO ×2 (08:05→16:01)
[2023-12-25] MEDS: FAMOTIDINE 20 MG TABLET PO ×2 (08:05→20:51)
[2023-12-25] MEDS: GABAPENTIN 100 MG CAPSULE PO ×3 (08:05→16:02)
[2023-12-25] MEDS: NYSTATIN 100,000 UNITS/ML SUSP 5 ML ORAL.SUSP PO ×4 (08:06→20:51)
[2023-12-25] MEDS: ROSUVASTATIN 10 MG TABLET PO (08:06)
[2023-12-25] MEDS: THERAPEUTIC MULTIVITAMINS/MINERALS TAB (*BKC) 1 TABLET PO (08:06)
[2023-12-25] MEDS: PANTOPRAZOLE SODIUM IV 40 MG VIAL IV PUSH (08:06)
[2023-12-25] MEDS: FUROSEMIDE 40 MG TABLET PO ×2 (08:06→16:02)
[2023-12-25] MEDS: polyethylene glycoL 3350 17 GM POWD.PACK PO ×2 (08:06→16:01)
[2023-12-25 08:47] LABS: Basophils Percent Auto 0.2 % (0.2-1.2); Eosinophils Absolute Auto 0.1 K/mm3 (0-0.3); Eosinophils Percent Auto 0.4 % (0-4.4); Hematocrit 28.9 % (42.0-52.0); Hemoglobin 9.1 g/dL (14.0-18.0); Immature Granulocyte Absolute 0.92 K/mm3 (0.00-0.031); Immature Granulocyte Percent A 5.6 % (0-0.5); Lymphocytes Absolute Auto 1.85 K/mm3 (0.9-3.2); Lymphocytes Percent Auto 11.2 % (18.3-44.2); Mean Corpuscular HGB Conc 31.5 g/dl (32-36); Mean Corpuscular Hemoglobin 28.6 pg (26-34); Mean Corpuscular Volume 90.9 fl (80-100); Mean Platelet Volume 10.7 fl (7.4-10.4); Monocytes Absolute Auto 1.5 K/mm3 (0.1-0.6); Neutrophils Absolute Auto 12.2 K/mm3 (1.3-6.7); Neutrophils Percent Auto 73.6 % (45.5-73.1); Platelet Count Result 307 k/mm3 (150-375); Red Blood Count 3.18 M/mm3 (4.6-6.20); Red Cell Distribution Width 18.9 % (11.5-14.5); White Blood Count 16.5 K/mm3 (4.5-10.0)
[2023-12-25 09:12] LABS: Anion Gap 7 mmol/L (4-12); Blood Urea Nitrogen 38 mg/dL (9-20); Calcium 8.2 mg/dL (8.4-10.2); Carbon Dioxide 30 mmol/L (22-30); Chloride 91 mmol/L (98-107); Estimated CRCL calculation 97 ml/min; Estimated Glomerular Filt Rate > 60; Glucose 170 mg/dL (65-110); Sodium 128 mmol/L (137-145)
[2023-12-25 09:57] LABS: Hypochromasia 1+; Platelet Estimate Adequate (Adequate); Schistocytes None Seen
[2023-12-25 12:01] LABS: Glucose Point of Care 235 mg/dl (65-105)
[2023-12-25] MEDS: INSULIN ASPART (*BKC) 100 UNITS/ML SUB-Q ×2 (12:05→16:47)
--- NOTE | 2023-12-25 13:11 | PCOTNOTE ---
Attempted to see pt for OT treatment session. Pt declined to participate in any self care tasks and/or strengthening exercises stating he needs to rest in preparation for an early procedure tomorrow. Pt is re educated on benefits of sitting up in chair out of bed for strengthening, skin integrity/pressure relief and pain management. Pt continues to decline therapist attempt. RN was made aware of pt's refusal.
[2023-12-25] MEDS: WARFARIN (*PBKC) 1 MG TABLET PO (16:02)
[2023-12-25 16:41] LABS: Glucose Point of Care 218 mg/dl (65-105)
[2023-12-25 19:35] LABS: Vancomycin Trough 18.6 ug/mL (10.0-20.0)
[2023-12-25 20:50] LABS: Glucose Point of Care 165 mg/dl (65-105)
[2023-12-25] MEDS: INSULIN GLARGINE (*BKC) 100 UNITS/ML 35 UNITS SUB-Q (20:52)
[2023-12-26] VITALS (15 sets, daily range): BP systolic 110–118; BP diastolic 42–58; PULSE 66–99; RESP 16–20; TEMP 36.4–37.3; O2SAT 95–100
[2023-12-26 05:42] LABS: Basophils Absolute Auto 0.1 K/mm3 (0.0-0.1); Basophils Percent Auto 0.4 % (0.2-1.2); Eosinophils Absolute Auto 0.1 K/mm3 (0-0.3); Eosinophils Percent Auto 0.7 % (0-4.4); Hematocrit 27.3 % (42.0-52.0); Hemoglobin 8.5 g/dL (14.0-18.0); Immature Granulocyte Absolute 1.08 K/mm3 (0.00-0.031); Immature Granulocyte Percent A 8.9 % (0-0.5); Lymphocytes Absolute Auto 1.72 K/mm3 (0.9-3.2); Lymphocytes Percent Auto 14.2 % (18.3-44.2); Mean Corpuscular HGB Conc 31.1 g/dl (32-36); Mean Corpuscular Hemoglobin 27.3 pg (26-34); Mean Corpuscular Volume 87.8 fl (80-100); Mean Platelet Volume 10.3 fl (7.4-10.4); Monocytes Absolute Auto 1.1 K/mm3 (0.1-0.6); Monocytes Percent Auto 9.3 % (2.6-8.5); Neutrophils Absolute Auto 8.1 K/mm3 (1.3-6.7); Neutrophils Percent Auto 66.5 % (45.5-73.1); Platelet Count Result 311 k/mm3 (150-375); Red Blood Count 3.11 M/mm3 (4.6-6.20); Red Cell Distribution Width 18.3 % (11.5-14.5); White Blood Count 12.1 K/mm3 (4.5-10.0)
[2023-12-26 05:53] LABS: Anion Gap 3 mmol/L (4-12); Blood Urea Nitrogen 31 mg/dL (9-20); Calcium 7.8 mg/dL (8.4-10.2); Carbon Dioxide 35 mmol/L (22-30); Chloride 92 mmol/L (98-107); Estimated CRCL calculation 97 ml/min; Estimated Glomerular Filt Rate > 60; Glucose 125 mg/dL (65-110); Potassium 2.6 mmol/L (3.4-5.0); Sodium 130 mmol/L (137-145)
[2023-12-26 05:54] LABS: INR 1.3; Prothrombin Time 16.8 Seconds (11.1-14.7)
[2023-12-26 06:35] LABS: Hypochromasia 1+; Platelet Estimate Adequate (Adequate); Schistocytes None Seen
[2023-12-26] MEDS: POTASSIUM CHLORIDE INJ 40 MEQ in SODIUM CHLORIDE 0.9% IV 500 ML 130 MEQ IVPB (06:55)
[2023-12-26 07:14] LABS: Glucose Point of Care 128 mg/dl (65-105)
--- NOTE | 2023-12-26 07:14 | PM.PNCARD ---
Progress Note: A&P Assessment and Plan (1) Bacteremia: Code(s): R78.81 - Bacteremia Status: Acute Assessment and Plan: Recurrent MRSA. On antibiotics as per hospitalist. 12/23/23 Limited echo: EF 55-60%, diastolic function not assessed, no obvious vegetation of heart valves or pacemaker lead. Plan for DEDRA Tuesday as his potassium is low today and patient is agreeable. Keep NPO after midnight. (2) UTI (urinary tract infection): Code(s): N39.0 - Urinary tract infection, site not specified Status: Acute Assessment and Plan: On antibiotics. (3) Atrial fibrillation: Onset Date: 04/20/17 Code(s): I48.91 - Unspecified atrial fibrillation Status: Chronic Assessment and Plan: Rate is normal. On Warfarin which is subtherapeutic. On Lovenox. Needs higher dose of Warfarin as INR trending down instead of up. (4) CAD (coronary artery disease), autologous vein bypass graft: Code(s): I25.810 - Atherosclerosis of coronary artery bypass graft(s) without angina pectoris Status: Acute Assessment and Plan: Stable. (5) Hypertension: Code(s): I10 - Essential (primary) hypertension Status: Acute Assessment and Plan: Stable. (6) Dyslipidemia: Code(s): E78.5 - Hyperlipidemia, unspecified Status: Acute Assessment and Plan: On Rosuvastatin. (7) Diabetes mellitus: Code(s): E11.9 - Type 2 diabetes mellitus without complications Status: Chronic (8) Diastolic heart failure: Code(s): I50.30 - Unspecified diastolic (congestive) heart failure Status: Acute Assessment and Plan: Appears euvolemic. Acute on chronic. On lasix 40 mg PO BID. Replete potassium. Start Spironolactone 25 mg daily and decrease Lasix 40 mg daily. Subjective Date/time seen: 12/26/23 07:14 Interval history: Denies chest pain or sob. No fever or chills. No complaints. Exam Const: General: cooperative, healthy appearing and comfortable Orientation/consciousness: oriented to person, oriented to place and oriented to time Resp: Auscultation: clear to auscultation bilaterally, no crackles, no rales, no rhonchi and no wheezes Cardio: Rate: regular rate Rhythm: abnormal rhythm Heart sounds: no murmurs Peripheral pulses: dorsalis pedis present Neuro: General: oriented to person, oriented to place and oriented to time Extrem: Right lower extremity: no edema Left lower extremity: no edema Other: Mild edema of legs Objective Data Vital Signs Vital Signs: Vital Signs - 24 hr 12/25/23 08:03 12/25/23 08:06 12/25/23 10:31 Temperature 96.9 F L Pulse Rate 71 76 Respiratory Rate 20 Blood Pressure 129/71 Pulse Oximetry 98 97 Oxygen Delivery Room Air Fraction of Inspired Oxygen 12/25/23 12:00 12/25/23 14:00 12/25/23 16:00 Temperature 98.7 F Pulse Rate 72 73 83 Respiratory Rate 18 Blood Pressure 138/73 Pulse Oximetry 96 Oxygen Delivery Fraction of Inspired Oxygen 12/25/23 20:45 12/25/23 21:18 12/25/23 20:00 Temperature 98 F Pulse Rate 73 70 77 Respiratory Rate 18 Blood Pressure 104/64 Pulse Oximetry 97 94 Oxygen Delivery Autopap Fraction of Inspired Oxygen 12/25/23 20:00 12/26/23 03:09 12/26/23 00:00 Temperature Pulse Rate 70 72 72 Respiratory Rate 18 Blood Pressure Pulse Oximetry 94 95 Oxygen Delivery Autopap Autopap Fraction of Inspired Oxygen 12/26/23 04:00 Temperature Pulse Rate 76 Respiratory Rate Blood Pressure Pulse Oximetry Oxygen Delivery Fraction of Inspired Oxygen Intake/Output Intake/Output: Intake & Output 12/23/23 12/24/23 12/25/23 12/26/23 23:59 23:59 23:59 23:59 Intake Total 2280 2420 2070 0 Output Total 4800 2550 3700 Balance -2520 -130 -1630 0 Meds/Results Medications: Active Medications Generic Name Dose Route Start Last Admin Trade Name Freq PRN Reason Stop Dos
--- NOTE | 2023-12-26 07:59 | PM.IMPN ---
Progress Note: A&P Assessment and Plan (1) Type 2 diabetes mellitus with hyperglycemia, with long-term current use of insulin: Code(s): E11.65 - Type 2 diabetes mellitus with hyperglycemia; Z79.4 - [facility] (current) use of insulin Status: Acute (2) Physical deconditioning: Code(s): R53.81 - Other malaise Status: Acute (3) UTI (urinary tract infection): Code(s): N39.0 - Urinary tract infection, site not specified Status: Acute (4) Bacteremia: Code(s): R78.81 - Bacteremia Status: Acute Plan 73-year-old male with past medical history of CAD status post CABG, peripheral artery disease, atrial fibrillation with sick sinus syndrome status post permanent pacemaker presents to ED from SNF with dyspnea. Of note patient was hospitalized 10/20-11/10 for septic shock secondary to Pseudomonas pneumonia, right lower extremity cellulitis. During that hospitalization completed course of meropenem. .Acute CHF exacerbation -BNP 6730 -troponin elevation at 0.049 likely secondary to supply demand mismatch from the heart strain from fluid overload, no chest pain, ACS ruled out Received with Lasix 40 mg IV b.i.d. she should transition to furosemide 40 mg b.i.d. p.o. Strict I's and O's Daily weight if possible Supplement potassium Compensated currently MRSA bacteremia: Continue with vancomycin Blood culture from day of admission that is 12/20/2023 is positive for MRSA Blood culture from 12/22/2023 is growing MRSA blood culture 12/22: MRSA Although leukocytosis is improving CT thoracic spine unlikely with osteomyelitis, CT abdomen pelvis with unremarkable pelvis/no bony lesions Cardiology is consulted, suspecting infective endocarditis Appreciate cardiology's consultation, plans DEDRA a.m. Tuesday. 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 History of atrial fibrillation: Currently INR subtherapeutic Continue with Coumadin along with therapeutic dosing of Lovenox Will check PT INR daily Constipation: Continue with MiraLax Add senna Colace type 2 diabetes: Blood glucose checked t.i.d. a.c. and HS Continue with Lantus 35 units Continue with mealtime insulin 6 units along with sliding scale insulin Adjust dose as needed chronic dysphagia: Patient currently on pureed diet, level 4, thickened liquids Patient does have PEG tube as well Code status: Full DVT prophylaxis: On Lovenox and Coumadin as mentioned above Disposition: Pending improvement Subjective Date/time seen: 12/26/23 07:59 Interval history: I saw and examined patient today, patient feels weak generally, move out of bed with assistance of physical therapist. he denies abdomen pain nausea vomiting diarrhea. Patient is afebrile, leukocytosis persists, white blood cell is trending down Exam Narrative: - GENERAL: no acute distress. - EYES: EOMI. Anicteric. - HENT: Moist mucous membranes. - LUNGS: Coarse lung sounds in all lung bolden, no wheezing, rales present - CARDIOVASCULAR: Regular rate and rhythm. - ABDOMEN: Soft, non-tender and non-distended. No palpable masses. - EXTREMITIES: 2+ pitting edema lower extremities, some wrinkling of skin, venous stasis changes - NEUROLOGIC: No focal neurological deficits. CN II-XII grossly intact. General weakness - PSYCHIATRIC: Awake, Alert and oriented to place. Appropriate mood and affect. - SKIN: No rashes or lesions. Warm. - LYMPH: No cervical lymphadenopathy. Objective Data Vital Signs Vital Signs: Vital Signs - 24 hr 12/25/23 08:03 12/25/23 08:06 12/25/23 10:31 Temperature 96.9 F L Pulse Rate 71 76 Respiratory Rate 20 Blood Pressure 129/71 Pulse Oximetry 98 97 Oxygen Delive
[2023-12-26] MEDS: ENOXAPARIN 100 MG/ML SYRINGE SUB-Q ×2 (08:10→20:58)
[2023-12-26] MEDS: SENNA/DOCUSATE SODIUM TABLET 2 TAB PO ×2 (08:10→17:20)
[2023-12-26 08:11] LABS: Glucose Point of Care 124 mg/dl (65-105)
[2023-12-26] MEDS: NYSTATIN 100,000 UNITS/ML SUSP 5 ML ORAL.SUSP PO ×4 (08:11→20:55)
[2023-12-26] MEDS: GABAPENTIN 100 MG CAPSULE PO ×3 (08:11→17:20)
[2023-12-26] MEDS: THERAPEUTIC MULTIVITAMINS/MINERALS TAB (*BKC) 1 TABLET PO (08:11)
[2023-12-26] MEDS: FAMOTIDINE 20 MG TABLET PO ×2 (08:11→20:55)
[2023-12-26] MEDS: polyethylene glycoL 3350 17 GM POWD.PACK PO ×2 (08:12→17:21)
[2023-12-26] MEDS: POTASSIUM CHLORIDE 20 MEQ PACKET (FOR LIQUID) 40 MEQ PO (08:12)
[2023-12-26] MEDS: ROSUVASTATIN 10 MG TABLET PO (08:12)
[2023-12-26] MEDS: PANTOPRAZOLE SODIUM IV 40 MG VIAL IV PUSH (08:21)
[2023-12-26] MEDS: INSULIN ASPART (*BKC) 100 UNITS/ML 6 UNITS SUB-Q ×3 (08:25→17:19)
--- NOTE | 2023-12-26 09:21 | PCNFU ---
Nutrition Follow-Up Complete: Inability to meet nutrition needs PO related to dysphagia as evidenced by need for full tube feeding -RESOLVED Meet estimated nutrition needs - Progressing with PO intake. Will add supplement to improve PO intake Support wound healing - Progressing, PO intake improving and Flex is ordered Goal: Pt current nutrition is Diabetic consistent carb diet, puree, moderately thick Level 2 liquids. Flex BID (mod thick) for additional 80 kcal and 2.5 g protein to support wound healing Nutrition recommendation: Add oral nutrition supplement: Glucerna BID for additional 220 kcal and 10 g protein each Last recorded weight is 105.5 kg. + 0.5 kg/since admission. Bowel Motility: +1 BM 12/25/2023 Labs Reviewed: Hgb 8.5, Hct 27.3, Na 130, K+ 2.6, Glu 125 Meds Noted: Lantus, novolog, Lasix Skin: Unstageable L heel Additional Notes: Intakes 40-85% on PO diet. Monitoring tube feeding tolerance, labs, weights, stool output, wound staging Follow up Tuesday and Fridays per policy
[2023-12-26] MEDS: CEFEPIME 1 GM/NS 50 ML 1 GM/50 ML BAG IVPB ×2 (10:57→20:55)
[2023-12-26 11:47] LABS: Glucose Point of Care 192 mg/dl (65-105)
[2023-12-26 12:22] LABS: Potassium 3.4 mmol/L (3.4-5.0)
[2023-12-26] MEDS: VANCOMYCIN 1,500 MG/NS 500 ML 1,500 MG/500 ML BAG 250 MG IVPB (13:43)
[2023-12-26 16:31] LABS: Toxigenic C. Diff NEGATIVE (NEGATIVE)
[2023-12-26 17:03] LABS: Glucose Point of Care 167 mg/dl (65-105)
[2023-12-26] MEDS: ACETAMINOPHEN 325 MG TABLET 650 MG PO (17:22)
[2023-12-26 20:51] LABS: Glucose Point of Care 232 mg/dl (65-105)
[2023-12-26] MEDS: INSULIN GLARGINE (*BKC) 100 UNITS/ML 35 UNITS SUB-Q (20:59)
[2023-12-26] MEDS: INSULIN ASPART (*BKC) 100 UNITS/ML SUB-Q (20:59)
[2023-12-27] VITALS (16 sets, daily range): BP systolic 100–118; BP diastolic 47–55; PULSE 64–88; RESP 18–32; TEMP 36.6–36.9; O2SAT 95–100
[2023-12-27 04:35] LABS: Glucose Point of Care 122 mg/dl (65-105)
[2023-12-27 06:11] LABS: Basophils Absolute Auto 0.1 K/mm3 (0.0-0.1); Basophils Percent Auto 0.7 % (0.2-1.2); Eosinophils Absolute Auto 0.1 K/mm3 (0-0.3); Eosinophils Percent Auto 0.6 % (0-4.4); Hematocrit 27.2 % (42.0-52.0); Hemoglobin 8.3 g/dL (14.0-18.0); Immature Granulocyte Absolute 1.43 K/mm3 (0.00-0.031); Immature Granulocyte Percent A 11.2 % (0-0.5); Lymphocytes Absolute Auto 1.86 K/mm3 (0.9-3.2); Lymphocytes Percent Auto 14.6 % (18.3-44.2); Mean Corpuscular HGB Conc 30.5 g/dl (32-36); Mean Corpuscular Hemoglobin 27.8 pg (26-34); Mean Platelet Volume 10.7 fl (7.4-10.4); Monocytes Absolute Auto 1.1 K/mm3 (0.1-0.6); Monocytes Percent Auto 8.8 % (2.6-8.5); Neutrophils Absolute Auto 8.2 K/mm3 (1.3-6.7); Neutrophils Percent Auto 64.1 % (45.5-73.1); Nucleated Red Blood Cells Perc 0.2 % (0.0-0.2); Platelet Count Result 345 k/mm3 (150-375); Red Blood Count 2.99 M/mm3 (4.6-6.20); Red Cell Distribution Width 18.7 % (11.5-14.5); White Blood Count 12.7 K/mm3 (4.5-10.0)
[2023-12-27 06:19] LABS: INR 1.4; Prothrombin Time 17.3 Seconds (11.1-14.7)
[2023-12-27 06:30] LABS: Anion Gap 8 mmol/L (4-12); Blood Urea Nitrogen 27 mg/dL (9-20); Calcium 7.9 mg/dL (8.4-10.2); Carbon Dioxide 28 mmol/L (22-30); Chloride 95 mmol/L (98-107); Estimated CRCL calculation 109 ml/min; Estimated Glomerular Filt Rate > 60; Glucose 107 mg/dL (65-110); Potassium 3.3 mmol/L (3.4-5.0); Sodium 131 mmol/L (137-145)
[2023-12-27 07:33] LABS: Platelet Estimate Adequate (Adequate)
[2023-12-27 07:34] LABS: Anisocytosis 1+; Hypochromasia 1+; Schistocytes None Seen
--- NOTE | 2023-12-27 08:00 | ECHO_ITS ---
Patient Info Name: Diego Marquez Age: 73 years : 1950 Gender: Male Ht: 69 in Wt: 223 lbs BSA: 2.25 m2 Technical Quality: Good Exam Date: 12/27/2023 7:48 AM Exam Location: Echo Lab Patient Status: Inpatient Admit Date: 12/20/2023 Staff Ordering Physician: Celso Haro DO Wagon Driver: Ciarra Fulton RDCS Attending Provider: Araceli Jacobs DO Referring Physician: Tahir DOTSON; Exam Type: CA echo transesophageal Study Info Indications - BACTEREMIA Complete two-dimensional, color flow and Doppler transesophageal study is performed. Procedure Details Risks/benefits/alternative to DEDRA discussed with patient and he gave informed consent. He was monitored electrocardiographically, vitals and pulse ox. He was in normal rhythm, BP 120/70, HR 65 bpm, pulse ox>95% throughout the procedure. He was given benzocaine spray to posterior oropharynx x 2. He was given Fentanyl 25 mcg and Versed 2 mg IV for conscious sedation. DEDRA advanced and he swallowed without incident. Multiple images obtained in esophagus. Agitated saline given x 1. DEDRA withdrawn and no blood noted on DEDRA probe tip. Patient tolerated procedure wll and no complications. Summary 1. Left ventricular chamber dimension is normal. 2. Left ventricular systolic function is normal with an ejection fraction of 60-65% by visual estimation. 3. The left ventricular diastolic function is indeterminate. 4. Right ventricular chamber dimension is mildly enlarged. 5. Linear artifact in right ventricle suggestive of catheter(s), pacemaker lead(s), or ICD lead(s). 6. No vegetation on pacemaker lead. 7. Left atrial chamber dimension is mildly enlarged. 8. Linear artifact in the right atrium suggestive of catheter(s), pacemaker lead(s), or ICD lead(s). 9. There is mild aortic valve sclerosis. 10. There is trace aortic valve regurgitation. 11. Small aortic valve vegetation visualized measuring 0.1 cm2 attached to left coronary cusp suggestive of endocarditis. 12. There is mild mitral valve regurgitation. 13. Small mitral valve vegetation visualized measuring 0.6 cm2 attached to anterior leaflet and 0.1 cm2 attached to posterior leaflet suggestive of endocarditis. 14. There is trace tricuspid valve regurgitation. Left Ventricle Left ventricular systolic function is normal with an ejection fraction of 60-65% by visual estimation. Left ventricular chamber dimension is normal. The left ventricular diastolic function is indeterminate. Right Ventricle Linear artifact in right ventricle suggestive of catheter(s), pacemaker lead(s), or ICD lead(s). No vegetation on pacemaker lead. Right ventricular chamber dimension is mildly enlarged. Right ventricular systolic function is normal. Left Atria Left atrial chamber dimension is mildly enlarged. Right Atria Linear artifact in the right atrium suggestive of catheter(s), pacemaker lead(s), or ICD lead(s). No vegetation on pacemaker lead. Right atrial chamber dimension is normal. Atrial Septum Agitated saline injection opacified right side cardiac chambers without shunt to left side cardiac chambers. Intact interatrial septum visualized by 2D, color flow and agitated saline imaging. Atrial Appendage There is no thrombus visualized in the left atrial appendage. Aortic Valve Small aortic valve vegetation visualized measuring 0.1 cm2 attached to left coronary cusp suggestive of endocarditis. The aortic valve is trileaflet. There is mild aortic valve sclerosis. There is no aortic valve stenosis. There is trace aortic valve regurgitation. Pulmonic Valve There is no pulmonic regurgitation. No pulmon
--- NOTE | 2023-12-27 08:28 | PM.PNCARD ---
Progress Note: A&P Assessment and Plan (1) Bacteremia: Code(s): R78.81 - Bacteremia Status: Acute Assessment and Plan: Recurrent MRSA. On antibiotics as per hospitalist. 12/23/23 Limited echo: EF 55-60%, diastolic function not assessed, no obvious vegetation of heart valves or pacemaker lead. (2) UTI (urinary tract infection): Code(s): N39.0 - Urinary tract infection, site not specified Status: Acute Assessment and Plan: On antibiotics. (3) Atrial fibrillation: Onset Date: 04/20/17 Code(s): I48.91 - Unspecified atrial fibrillation Status: Chronic Assessment and Plan: Rate is normal. On Warfarin which is subtherapeutic. On Lovenox. Needs higher dose of Warfarin as INR trending down instead of up. (4) CAD (coronary artery disease), autologous vein bypass graft: Code(s): I25.810 - Atherosclerosis of coronary artery bypass graft(s) without angina pectoris Status: Acute Assessment and Plan: Stable. (5) Hypertension: Code(s): I10 - Essential (primary) hypertension Status: Acute Assessment and Plan: Stable. (6) Dyslipidemia: Code(s): E78.5 - Hyperlipidemia, unspecified Status: Acute Assessment and Plan: On Rosuvastatin. (7) Diabetes mellitus: Code(s): E11.9 - Type 2 diabetes mellitus without complications Status: Chronic (8) Diastolic heart failure: Code(s): I50.30 - Unspecified diastolic (congestive) heart failure Status: Acute Assessment and Plan: Appears euvolemic. Acute on chronic. On Spironolactone 25 mg daily and Lasix 40 mg daily. (9) Infective endocarditis: Code(s): I33.0 - Acute and subacute infective endocarditis Status: Acute Assessment and Plan: Small vegetations on aortic and mitral valves. 12/27/23 DEDRA shows EF 60-65%, mild LAE, mild RAFAL, mild RVE, mild sclerocalcification of aortic valve, 0.1 cm2 vegetation attached to left coronary cusp, very trace AI, mild MR, 0.6 cm2 vegetation attached to anterior MV leaflet and 0.1 cm2 vegetation attached to posterior MV leaflet, pacemaker lead without vegetation, trace TR. Needs management with IV antibiotics for extended term, would leave this up to hospitalist to manage. Subjective Date/time seen: 12/27/23 08:28 Interval history: Denies chest pain or sob. No fever or chills. No complaints. Exam Const: General: cooperative, healthy appearing and comfortable Orientation/consciousness: oriented to person, oriented to place and oriented to time Resp: Auscultation: clear to auscultation bilaterally, no crackles, no rales, no rhonchi, no wheezes and diminished lung sounds Cardio: Rate: regular rate Rhythm: abnormal rhythm Heart sounds: no murmurs Peripheral pulses: dorsalis pedis present Neuro: General: oriented to person, oriented to place and oriented to time Extrem: Right lower extremity: no edema Left lower extremity: no edema Other: Mild edema of legs Objective Data Vital Signs Vital Signs: Vital Signs - 24 hr 12/26/23 12:00 12/26/23 13:55 12/26/23 16:00 Temperature 98.1 F Pulse Rate 80 78 69 Respiratory Rate 16 Blood Pressure 114/45 L Pulse Oximetry 100 Oxygen Delivery Oxygen Flow Rate Fraction of Inspired Oxygen 12/26/23 18:22 12/26/23 20:00 12/26/23 20:53 Temperature 98.1 F 99.1 F Pulse Rate 69 73 Respiratory Rate 16 16 Blood Pressure 118/50 L Pulse Oximetry 100 98 Oxygen Delivery Room Air Oxygen Flow Rate Fraction of Inspired Oxygen 25 12/26/23 21:00 12/26/23 22:53 12/26/23 20:00 Temperature 98.1 F Pulse Rate 70 67 76 Respiratory Rate 16 Blood Pressure 110/56 L Pulse Oximetry 97 96 Oxygen Delivery Autopap Oxygen Flow Rate Fraction of Inspired Oxygen 12/27/23 00:00 12/27/23 04:00 12/27/23 04:42 Temperature 98.5 F Pulse Rate 69 68 64 Respiratory Rate 18 Blood Pressure 114/52 L
[2023-12-27 09:51] LABS: Glucose Point of Care 90 mg/dl (65-105)
[2023-12-27] MEDS: ENOXAPARIN 100 MG/ML SYRINGE SUB-Q ×2 (10:08→20:45)
[2023-12-27] MEDS: POTASSIUM CHLORIDE 20 MEQ PACKET (FOR LIQUID) 40 MEQ PO (10:09)
[2023-12-27] MEDS: NYSTATIN 100,000 UNITS/ML SUSP 5 ML ORAL.SUSP PO ×4 (10:09→20:37)
[2023-12-27] MEDS: FUROSEMIDE 40 MG TABLET PO (10:09)
[2023-12-27] MEDS: FAMOTIDINE 20 MG TABLET PO ×2 (10:10→20:37)
[2023-12-27] MEDS: PANTOPRAZOLE SODIUM IV 40 MG VIAL IV PUSH (10:10)
[2023-12-27] MEDS: THERAPEUTIC MULTIVITAMINS/MINERALS TAB (*BKC) 1 TABLET PO (10:10)
[2023-12-27] MEDS: ROSUVASTATIN 10 MG TABLET PO (10:10)
[2023-12-27] MEDS: GABAPENTIN 100 MG CAPSULE PO ×3 (10:10→17:39)
[2023-12-27] MEDS: SPIRONOLACTONE 25 MG TABLET PO (10:10)
[2023-12-27] MEDS: INSULIN ASPART (*BKC) 100 UNITS/ML 6 UNITS SUB-Q ×2 (10:11→17:40)
[2023-12-27] MEDS: VANCOMYCIN 1,500 MG/NS 500 ML 1,500 MG/500 ML BAG 250 MG IVPB (10:38)
[2023-12-27 11:44] LABS: Glucose Point of Care 85 mg/dl (65-105)
[2023-12-27] MEDS: ACETAMINOPHEN 325 MG TABLET 650 MG PO ×3 (11:50→19:47)
--- NOTE | 2023-12-27 11:55 | PCOTNOTE ---
Patient adamantly refused to participate in therapy services. I said NO, not today . Therapist discussed the importance of therapy and increased strengthening . Patient stated not today.
--- NOTE | 2023-12-27 13:33 | PC.NURSE ---
On 12/27/23, the student, [Yeni Manriquez], provided care and completed [facility] documentation on this patient. I have reviewed the student's documentation and agree with the findings.
--- NOTE | 2023-12-27 13:56 | PCOTNOTE ---
Attempted again this afternoon. Patient refused to participate and therapist asked to leave the room, let me be myself .
--- NOTE | 2023-12-27 15:49 | PCSTNOTE ---
Please refer to the Bedside Swallow Evaluation in the EMR. Please note, silent aspiration cannot be ruled out at bedside.
--- NOTE | 2023-12-27 16:31 | PM.IMPN ---
Progress Note: A&P Assessment and Plan (1) Type 2 diabetes mellitus with hyperglycemia, with long-term current use of insulin: Code(s): E11.65 - Type 2 diabetes mellitus with hyperglycemia; Z79.4 - [facility]CI (current) use of insulin Status: Acute (2) Physical deconditioning: Code(s): R53.81 - Other malaise Status: Acute (3) UTI (urinary tract infection): Code(s): N39.0 - Urinary tract infection, site not specified Status: Acute (4) Bacteremia: Code(s): R78.81 - Bacteremia Status: Acute Plan 73-year-old male with past medical history of CAD status post CABG, peripheral artery disease, atrial fibrillation with sick sinus syndrome status post permanent pacemaker presents to ED from SNF with dyspnea. Of note patient was hospitalized 10/20-11/10 for septic shock secondary to Pseudomonas pneumonia, right lower extremity cellulitis. During that hospitalization completed course of meropenem. .Acute CHF exacerbation -BNP 6730 -troponin elevation at 0.049 likely secondary to supply demand mismatch from the heart strain from fluid overload, no chest pain, ACS ruled out Received with Lasix 40 mg IV b.i.d. she should transition to furosemide 40 mg b.i.d. p.o. Strict I's and O's Daily weight if possible Supplement potassium Compensated currently MRSA bacteremia: Continue with vancomycin Blood culture from day of admission that is 12/20/2023 is positive for MRSA Blood culture from 12/22/2023 is growing MRSA blood culture 12/22: MRSA Although leukocytosis is improving CT thoracic spine unlikely with osteomyelitis, CT abdomen pelvis with unremarkable pelvis/no bony lesions Cardiology is consulted, suspecting infective endocarditis Appreciate cardiology's consultation, plans DEDRA a.m. Tuesday. 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 History of atrial fibrillation: Currently INR subtherapeutic Continue with Coumadin along with therapeutic dosing of Lovenox Will check PT INR daily Constipation: Continue with MiraLax Add senna Colace type 2 diabetes: Blood glucose checked t.i.d. a.c. and HS Continue with Lantus 35 units Continue with mealtime insulin 6 units along with sliding scale insulin Adjust dose as needed chronic dysphagia: Patient currently on pureed diet, level 4, thickened liquids Patient does have PEG tube as well Code status: Full DVT prophylaxis: On Lovenox and Coumadin as mentioned above Disposition: Pending improvement Subjective Date/time seen: 12/27/23 16:31 Interval history: Patient is a 73-year-old male with past medical history of CAD status post CABG, peripheral artery disease, atrial fibrillation with sick sinus syndrome status post permanent pacemaker presents to ED from SNF with dyspnea. Recently was patient was hospitalized 10/20-11/10 for septic shock secondary to Pseudomonas pneumonia, right lower extremity cellulitis. During that hospitalization completed course of meropenem, supportive care for the septic shock. During the hospitalization patient was treated as acute CHF exacerbation and blood culture showed MRSA bacteremia for which she underwent TTE which shows vegetation in aortic and mitral valve.Called [facility], awaiting for updates Review of Systems Review of Systems: 10 point ROS complete, negative other than what is specified in HPI. All systems reviewed & are unremarkable except as noted in HPI and below Exam Narrative: - GENERAL: no acute distress. - EYES: EOMI. Anicteric. - HENT: Moist mucous membranes. - LUNGS: Coarse lung sounds in all lung bolden, no wheezing, rales present - CARDIOVASCULAR: Regular rate and rhythm. - ABDOMEN: Soft, non-tender and
[2023-12-27 16:41] LABS: Glucose Point of Care 215 mg/dl (65-105)
[2023-12-27] MEDS: INSULIN ASPART (*BKC) 100 UNITS/ML SUB-Q ×2 (17:38→20:39)
[2023-12-27] MEDS: polyethylene glycoL 3350 17 GM POWD.PACK PO (17:40)
[2023-12-27] MEDS: WARFARIN (*PBKC) 1 MG TABLET PO (17:43)
[2023-12-27] MEDS: SENNA/DOCUSATE SODIUM TABLET 2 TAB PO (17:43)
[2023-12-27] MEDS: INSULIN GLARGINE (*BKC) 100 UNITS/ML 35 UNITS SUB-Q (20:38)
[2023-12-28] VITALS: PULSE 73
[2024-01-02 03:26] LABS: Glucose Point of Care 237 mg/dl (65-105)
== END 2023-12-28 01:40 | disposition short-term general hospital (02) | DRG 288 ==
LOC: ANHED 07:15 → ANHIMU 09:08 → ANH2MED 12-21 16:33
PROVIDERS: Hospitalist; Internal Medicine; Internal Medicine Cardiovascular Disease; Student in an Organized Health Care Education/Training Program; Admitting Provider Internal Medicine; Emergency Provider Student in an Organized Health Care Education/Training Program; PCP Internal Medicine; Visit Provider Internal Medicine
PROC: B24BZZ4 Ultrasonography of Heart with Aorta, Transesophageal (ICD-10-PCS; CPT 93312; principal; 2023-12-27 08:00)
DX: I33.0 Acute and subacute infective endocarditis (principal); I50.33 Acute on chronic diastolic (congestive) heart failure; J96.01 Acute respiratory failure with hypoxia; N39.0 Urinary tract infection, site not specified; R78.81 Bacteremia; G93.40 Encephalopathy, unspecified; E87.1 Hypo-osmolality and hyponatremia; J96.12 Chronic respiratory failure with hypercapnia; B95.62 Methicillin resistant Staphylococcus aureus infection as the cause of diseases classified elsewhere; B96.5 Pseudomonas (aeruginosa) (mallei) (pseudomallei) as the cause of diseases classified elsewhere; E11.51 Type 2 diabetes mellitus with diabetic peripheral angiopathy without gangrene; E11.42 Type 2 diabetes mellitus with diabetic polyneuropathy; E78.2 Mixed hyperlipidemia; E66.9 Obesity, unspecified; E11.65 Type 2 diabetes mellitus with hyperglycemia; G47.33 Obstructive sleep apnea (adult) (pediatric); I25.10 Atherosclerotic heart disease of native coronary artery without angina pectoris; I48.91 Unspecified atrial fibrillation; I49.5 Sick sinus syndrome; I11.0 Hypertensive heart disease with heart failure; K59.00 Constipation, unspecified; R13.10 Dysphagia, unspecified; Z93.1 Gastrostomy status; Z95.0 Presence of cardiac pacemaker; Z79.4 Long term (current) use of insulin; Z95.1 Presence of aortocoronary bypass graft; Z79.01 Long term (current) use of anticoagulants; Z68.35 Body mass index [BMI] 35.0-35.9, adult; Z99.89 Dependence on other enabling machines and devices; Z87.891 Personal history of nicotine dependence
CPT/HCPCS: 36415; 36600; 71045; 71250; 72130; 74018; 74177; 80048; 80053; 80202; 81001; 82375; 82565; 82805; 82948; 83036; 83050; 83605; 83735; 83880; 84132; 84484; 85018; 85025; 85610; 85652; 85730; 86140; 87040; 87086; 87181; 87186; 87493; 87641; 92610; 92611; 93005; 93308; 93312; 93320; 93325; 94002; 94003; 94640; 96365; 96367; 96375; 97110; 97162; 97166; 97530; 99291; A9270; C8924; J0692; J1650; J1815; J1836; J1940; J2250; J2470; J3010; J3370; J3480; J7040; Q9957; Q9967

== ENCOUNTER 2024-02-14 16:12 | Inpatient (IN) | payer MEDICARE, SELFPAY ==
--- NOTE | ~2024-02-14 | XR_ITS ---
XR chest 1V portable Ordering provider: Nancy Hess MD History: 74 years Male with . PICC VERFICATION . Comparison: December 20, 2023 FINDINGS: MEDIASTINUM: The cardiac silhouette is slightly enlarged. Congestive aylin. Postoperative changes in t he mediastinum. The right PICC line is seen with the tip overlying the superior vena cava. LUNGS: No effusions or pneumothorax. Minimal opacification is seen medially in the right lung base mo st likely atelectasis. OTHER: No free air under the diaphragm. IMPRESSION: Right PICC line with the tip overlying the superior vena cava. Possible minimal atelectasis versus pneumonia in the right lung base medially. Reviewed, dictated and finalized at location A. M PROCESSING SPECIALIST
--- NOTE | ~2024-02-14 | CT_ITS ---
CT of the Abdomen and Pelvis: Indication: Abdominal pain Technique: 2.5 mm axial scans were obtained through the abdomen and pelvis following intravenous adm inistration of 100 cc of Omnipaque 350. Dose reduction technique was used on this scan by utilizing a utomated exposure control and iterative reconstruction technique. The dose-length product (DLP) was 1 364.97 mGy-cm. COMPARISON: 12/23/2023 Findings: Scans through the lung bases demonstrate a 4 mm right lower lobe pulmonary nodule (axial i mage 9). Several small calcified granulomas are also present at the lung bases.. Suggestion of mildly nodular contour of liver. Calcified hepatic and splenic granulomas are present. No focal hepatic mass evident. The pancreas, gallbladder, left adrenal gland, and kidneys are within normal limits. Small right adrenal lipoma/myelolipoma present. There are atherosclerotic calcificatio ns of the aorta. No lymphadenopathy. No bowel obstruction or bowel wall thickening. There is no evidence to suggest acute appendicitis. Images through the pelvis were performed. Urinary bladder unremarkable. No pelvic mass seen. No ascit es. Extensive degenerative spondylosis of the visualized spine is stable in appearance from prior exa m. Stable erosive changes about the T8-T9 disc space, which could be due to underlying severe degener ative disc change. Impression: Probable mild cirrhotic morphology of the liver. No definite acute abnormality seen. Chronic findings, as above. Reviewed, dictated and finalized at location M. T CATCHER Impression: Probable mild cirrhotic morphology of the liver. No definite acute abnormality seen. Chronic findings, as above.
[2024-02-14 16:18] VITALS: BP 128/53; PULSE 63; RESP 18; TEMP 36.4; O2SAT 100
[2024-02-14 16:21] LABS: Glucose Point of Care 91 mg/dl (65-105)
--- NOTE | 2024-02-14 17:00 | PC.NURSE ---
This RN. attempted to call pt. son, per pt. request. No answer.
[2024-02-14 17:29] LABS: Glucose Point of Care 129 mg/dl (65-105)
--- NOTE | 2024-02-14 17:30 | ED_ITS ---
HPI - Recheck/Abnormal Lab/Rx General Chief Complaint: Recheck/Abnormal Lab/Rx Stated Complaint: low blood sugar Time Seen by Provider: 02/14/24 16:19 History of Present Illness HPI narrative: Patient presents here with low blood sugar, is here from skilled nursing where he was found to be obtunded, he was given glucose and glucagon and on re- evaluation is now alert, awake, normal blood sugar, he denies any complaints other than he feels constipated, though he has no abdominal pain, nausea vomiting. No fevers or chills. Related Data Home Medications ?Medication ?Instructions ?Recorded ?Confirmed ?Last Taken ?Type multivitamin with minerals 1 tablet PO DAILY 12/20/23 12/20/23 Unknown History nystatin 100,000 unit/mL oral 100,000 unit PO QID 12/20/23 12/20/23 Unknown History suspension warfarin 2 mg tablet 1 mg PO DAILY 12/20/23 12/20/23 Unknown History insulin glargine 100 unit/mL (3 70 unit subcut QHS 12/21/23 12/21/23 Unknown History mL) subcutaneous pen (Lantus Solostar U-100 Insulin) Allergies Allergy/AdvReac Type Severity Reaction Status Date / Time morphine AdvReac Agitated Verified 02/14/24 16:27 Review of Systems 2 Review of Systems: All systems reviewed & are unremarkable except as noted in HPI and below PMFSH Past Medical History Medical History (Updated 02/14/24 @ 19:00 by Nancy Hess MD) Anticoagulant long-term use Candidiasis of other urogenital sites Anemia Diabetic peripheral neuropathy Rhabdomyolysis Urge urinary incontinence Chronic venous stasis dermatitis of both lower extremities Sick sinus syndrome (04/18/17) SAKSHI on CPAP (03/2019) CPAP of 7 Mixed hyperlipidemia (04/20/17) Essential hypertension Atrial fibrillation (04/20/17) On chronic anticoagulation with warfarin Hemochromatosis However patient's iron studies demonstrate a low iron level (12/2020), normal transferrin (in 2019) and normal hemoglobin and now actually has what appears bandemia chronic disease Obesity (BMI 35.0-39.9 without comorbidity) Pacemaker CAD (coronary artery disease), autologous vein bypass graft Arthritis Diabetes mellitus Erectile dysfunction Peripheral artery disease Surgical History Surgical History Pacemaker (04/2015) Single-chamber MRI compatible pacemaker Hx of CABG (~2004) Four-vessel CABG H/O right heart catheterization Family History Family History Father Acute myocardial infarction Son Family history of obesity Mother Uterine cancer Social History Social History Social History: He has been since 1997 and he he lives in his own home. He ambulates with a walker. His son comes and checks on him daily, and will be his surrogate Diego pan He is retired from the [employer]. He wishes to be a full code at this time. Smoking packs per day: 2.5 Smoking cigarettes per day: 50.0 Years smoked: 50 Smoking pack-years: 125.00 Smoking status: Former smoker Tobacco type: cigarettes Smokeless tobacco user: chewing tobacco Second hand tobacco smoke exposure: Yes Alcohol intake: unknown Substance use: unknown Substance use type: marijuana Do You Feel Safe in your Home?: Yes Lack of Transportation: No Lack of Food: Never True Current Housing: I Have Housing Concerned About Future Housing: No Difficulty Paying Gas/Electric Bills: No Difficulty Paying for Meds: No Currently Unemployed: No Education: Don't Know Difficulty w/ Childcare or Family Care: No Living arrangements: alone Occupation/Education: retired 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 EYES: EOMI, conjunctiva normal ENT: Hearing grossly intact LUNGS: Nonlabored breathing. HEART: [Regular rate and rhythm] ABD: [Soft], [nontender to palpation] EXT: Normal range of motion SKIN: [No rashes or lesions.] NEURO: [Alert and oriented x 3..] PSYCH: Normal affect Course Vital Signs Vital signs: Vital Signs Temperature 97.5 F L 02/14/24 16:18 Pulse Rate 63 02/14/24 16:18 Respiratory Rate 18 12/10/24 16:18 Blood Pressure 128/53 L 02/14/24 16:18 Pulse Oximetry 100 02/14/24 16:18 Oxygen Delivery Room Air 02/14/24 16:18 Temperature 97.5 F L 02/14/24 16:18 Pulse Rate 63 02/14/24 16:18 Respiratory Rate 18 02/14/24 16:18 Blood Pressure 128/53 L 02/14/24 16:18 Pulse Oximetry 100 02/14/24 16:18 Oxygen Delivery Room Air 02/14/24 16:18 MDM - Recheck/Abnormal Lab/Rx MDM Narrative Medical decision making narrative: patient presents here found to be hypoglycemic; sugar corrected by EMS and he is well-appearing here in no distress, alert and oriented, complaining only of constipation for the past week. I will watch him here for several hours, make sure to brief check his blood sugar Q hour, if it has remained stable I do feel he can be discharged safely back to the skilled nursing where I do feel they should be able to adequately check his blood sugar / give insulin. Has been held here for 3 hours, blood sugars remained stable, I do feel stable for discharge with return precautions. Lab Data 02/14/24 17:40 02/14/24 17:40 Labs: Lab Results 02/14/24 02/14/24 02/14/24 Range/Units 16:16 17:26 17:40 WBC 16.2 H (4.5-10.0) K/mm3 RBC 3.42 L (4.6-6.20) M/mm3 Hgb 9.5 L (14.0-18.0) g/dL Hct 29.5 L (42.0-52.0) % MCV 86.3 (80-100) fl MCH 27.8 (26-34) pg MCHC 32.2 (32-36) g/dl RDW 16.5 H (11.5-14.5) % Plt Count 299 (150-375) k/mm3 MPV 9.4 (7.4-10.4) fl Immature Gran % (Auto) 1.1 H (0-0.5) % Neut % (Auto) 81.3 H (45.5-73.1) % Lymph % (Auto) 11.9 L (18.3-44.2) % [place] % (Auto) 5.0 (2.6-8.5) % Eos % (Auto) 0.3 (0-4.4) % Baso % (Auto) 0.4 (0.2-1.2) % Lymph # (Auto) 1.93 (0.9-3.2) K/mm3 [place] # (Auto) 0.8 H (0.1-0.6) K/mm3 Eos # (Auto) 0.1 (0-0.3) K/mm3 Baso # (Auto) 0.1 (0.0-0.1) K/mm3 Abs Immat Gran (auto) 0.17 H (0.00-0.031) K/mm3 Absolute Neuts (auto) 13.2 H (1.3-6.7) K/mm3 Absolute Nucleated RBC 0.000 (0.0-0.012) K/mm3 Nucleated RBC % 0.0 (0.0-0.2) % Sodium 133 L (137-145) mmol/L Potassium 3.6 (3.4-5.0) mmol/L Chloride 100 (98-107) mmol/L Carbon Dioxide 26 (22-30) mmol/L Anion Gap 7 (4-12) mmol/L BUN 26 H (9-20) mg/dL Creatinine 1.00 (0.7-1.3) mg/dL Estim Creat Clear Calc Not Reportable Estimated GFR > 60 (59 - ) Glucose 187 H (65-110) mg/dL POC Capillary Glucose 91 129 H (65-105) mg/dl Calcium 8.9 (8.4-10.2) mg/dL Total Bilirubin 0.6 (0.2-1.3) mg/dL AST 25 (17-59) U/L ALT 9 (6-50) U/L Alkaline Phosphatase 85 (38-126) U/L Total Protein 7.0 (6.3-8.2) g/dL Albumin 3.7 (3.5-5.1) g/dL Discharge Plan Discharge Clinical Impression: Hypoglycemia Patient Disposition: [facility]Asst Living Condition: Stable Instructions: Hypoglycemia in a Person with Diabetes (ED) Additional Instructions: Please follow up with your doctor; you can always return for any further issues. Patient Language: [place] Prescriptions: No Action amlodipine [Norvasc] 5 mg Tablet 5 mg PO DAILY Qty: 30 0RF warfarin 2 mg tablet 1 mg PO DAILY Rx Instructions: tuesday, tuesday, tuesday, and tuesday multivitamin with minerals Tablet 1 tablet PO DAILY nystatin 100,000 unit/mL Suspension 100,000 unit PO QID Rx Instructions: Swish and spit insulin glargine [Lantus Solostar U-100 Insulin] 100 unit/mL (3 mL) insulin pen 70 unit SUBCUT QHS insulin glargine [Lantus U-100 Insulin] 100 unit/mL Solution 35 unit subcut HS 0RF insulin aspart U-100 [Novolog U-100 Insulin aspart] 100 unit/mL Solution 4 - 8 unit subcut ACHS 0RF Protocol: Insulin Corrective High-Dose Condition: glucose < 70 mg/dl Dose/Route: Follow hypoglycemia order Condition: glucose 70-200 mg/dl Dose/Route: No additional insulin Condition: glucose 201-250 mg/dl Dose/Route: 4 units sub-Q Condition: glucose 251-300 mg/dl Dose/Route: 5 units sub-Q Condition: glucose 301-350 mg/dl Dose/Route: 6 units sub-Q Condition: glucose 351-400 mg/dl Dose/Route: 8 units sub-Q Condition: glucose > 400 mg/dl Dose/Route: Call insulin aspart U-100 [Novolog U-100 Insulin aspart] 100 unit/mL Solution 12 unit subcut Q6H Qty: 10 0RF insulin aspart U-100 [Novolog U-100 Insulin aspart] 100 unit/mL Solution 4 - 8 unit subcut Q6H Qty: 10 0RF Protocol: Insulin Corrective High-Dose Condition: glucose < 70 mg/dl Dose/Route: Follow hypoglycemia order Condition: glucose 70-200 mg/dl Dose/Route: No additional insulin Condition: glucose 201-250 mg/dl Dose/Route: 4 units sub-Q Condition: glucose 251-300 mg/dl Dose/Route: 5 units sub-Q Condition: glucose 301-350 mg/dl Dose/Route: 6 units sub-Q Condition: glucose 351-400 mg/dl Dose/Route: 8 units sub-Q Condition: glucose > 400 mg/dl Dose/Route: Call Rx Instructions: BS 201-250= 4 units, 251-300= 5 units, 301-350= 6 units, 351-400= 8 units, above 400 call MD Follow-up/Referrals: Dominic Recinos MD [Primary Care Provider] -
[2024-02-14 18:03] LABS: Basophils Absolute Auto 0.1 K/mm3 (0.0-0.1); Basophils Percent Auto 0.4 % (0.2-1.2); Eosinophils Absolute Auto 0.1 K/mm3 (0-0.3); Eosinophils Percent Auto 0.3 % (0-4.4); Hematocrit 29.5 % (42.0-52.0); Hemoglobin 9.5 g/dL (14.0-18.0); Immature Granulocyte Absolute 0.17 K/mm3 (0.00-0.031); Immature Granulocyte Percent A 1.1 % (0-0.5); Lymphocytes Absolute Auto 1.93 K/mm3 (0.9-3.2); Lymphocytes Percent Auto 11.9 % (18.3-44.2); Mean Corpuscular HGB Conc 32.2 g/dl (32-36); Mean Corpuscular Hemoglobin 27.8 pg (26-34); Mean Corpuscular Volume 86.3 fl (80-100); Mean Platelet Volume 9.4 fl (7.4-10.4); Monocytes Absolute Auto 0.8 K/mm3 (0.1-0.6); Neutrophils Absolute Auto 13.2 K/mm3 (1.3-6.7); Neutrophils Percent Auto 81.3 % (45.5-73.1); Platelet Count Result 299 k/mm3 (150-375); Red Blood Count 3.42 M/mm3 (4.6-6.20); Red Cell Distribution Width 16.5 % (11.5-14.5); White Blood Count 16.2 K/mm3 (4.5-10.0)
[2024-02-14 18:15] LABS: Alanine Aminotransferase 9 U/L (6-50); Albumin Level 3.7 g/dL (3.5-5.1); Alkaline Phosphatase 85 U/L (38-126); Anion Gap 7 mmol/L (4-12); Aspartate Amino Transferase 25 U/L (17-59); Bilirubin,Total 0.6 mg/dL (0.2-1.3); Blood Urea Nitrogen 26 mg/dL (9-20); Calcium 8.9 mg/dL (8.4-10.2); Carbon Dioxide 26 mmol/L (22-30); Chloride 100 mmol/L (98-107); Estimated Glomerular Filt Rate > 60; Glucose 187 mg/dL (65-110); Potassium 3.6 mmol/L (3.4-5.0); Sodium 133 mmol/L (137-145)
[2024-02-14 19:03] LABS: Glucose Point of Care 107 mg/dl (65-105)
[2024-02-14] MEDS: ACETAMINOPHEN 500 MG TABLET 1000 MG PO (19:07)
[2024-02-14 19:08] VITALS: BP 97/71; PULSE 65; RESP 16; O2SAT 100
--- NOTE | 2024-02-14 21:29 | PC.NURSE ---
Dirty depend removed. Kathrin care performed with soap and water. Clean depend applied.
[2024-02-14 22:59] VITALS: BP 99/53; PULSE 60; RESP 16; O2SAT 100
[2024-02-14 23:16] VITALS: BP 104/51; PULSE 60; RESP 14; O2SAT 100
[2024-02-15] VITALS (23 sets, daily range): BP systolic 99–120; BP diastolic 50–79; PULSE 54–68; RESP 15–29; TEMP 36.5–36.8; O2SAT 99–100; BMI 29.9
[2024-02-15] MEDS: DEXTROSE 50% 25 GM/50 ML SYRINGE (00:52)
[2024-02-15 00:53] LABS: Glucose Point of Care 21 mg/dl (65-105)
--- NOTE | 2024-02-15 00:54 | PC.NURSE ---
In pt room to check on him, pt awoke when i walked in. I asked pt his name and date of . Pt slow to respond but said his name and this started slurring 10 and unable to tell me the rest of his birthday. Pt blood sugar check and it was 21. amp of D50 given and MD notified. Pt more responsive after administration.
[2024-02-15 01:09] LABS: Glucose Point of Care 268 mg/dl (65-105)
[2024-02-15 03:01] LABS: Glucose Point of Care 144 mg/dl (65-105)
[2024-02-15 04:10] LABS: Glucose Point of Care 91 mg/dl (65-105)
[2024-02-15 04:59] LABS: Glucose Point of Care 60 mg/dl (65-105)
[2024-02-15] MEDS: DEXTROSE 10% 1,000 ML 75 ML IV CONT (05:33)
[2024-02-15 06:03] LABS: Glucose Point of Care 78 mg/dl (65-105)
--- NOTE | 2024-02-15 07:16 | PC.NURSE ---
Admission complete; medication list obtained from transfer list from facility, some medications indicate to administer via feeding tube, however, patient no longer has a feeding tube. Patient presents as A&O x4 and was able to answer questions appropriately. Report to [facility].
[2024-02-15 08:04] LABS: Glucose Point of Care 161 mg/dl (65-105)
--- NOTE | 2024-02-15 08:14 | ADMGEN ---
This patient, Diego Marquez Sr., was admitted to Intensive Care Unit-5 at approximately 0745. Patient/family oriented to hospital policies and general routines including ID bracelet, bed and alarms, visiting hours, pain management, procedures, bathroom and other care routines, personal items, smoking policy, room service/diet, and visiting hours. Information on how to activate the Rapid Response Team has been discussed. Patient/Family are encouraged to report perceived risks to care and to ask questions if they do not understand what they are told or what they should do.
[2024-02-15] MEDS: FUROSEMIDE 40 MG TABLET PO (09:20)
[2024-02-15] MEDS: SPIRONOLACTONE 25 MG TABLET PO (09:20)
[2024-02-15] MEDS: DABIGATRAN ETEXILATE 150 MG CAPSULE PO ×2 (09:20→20:43)
[2024-02-15] MEDS: ASPIRIN 81 MG CHEWABLE TABLET PO (09:20)
[2024-02-15 09:29] LABS: Glucose Point of Care 135 mg/dl (65-105)
[2024-02-15 10:01] LABS: MRSA (PCR) DETECTED (NOT DETECTE)
--- NOTE | 2024-02-15 11:05 | PC.NURSE ---
Notified DR Quintanilla of PT +MRSA nasal swab.
[2024-02-15 11:48] LABS: Glucose Point of Care 150 mg/dl (65-105)
[2024-02-15 11:48] LABS: Glucose Point of Care 194 mg/dl (65-105)
--- NOTE | 2024-02-15 13:56 | P.HP_ITS ---
H&P: HPI History of Present Illness Date/Time: 02/15/24 13:56 Chief Complaint: Jason was brought to the ER on account of somnolence and slurred speech Narrative: 73-year-old male with past medical history of CAD status post CABG, peripheral artery disease, atrial fibrillation with sick sinus syndrome status post permanent pacemaker was brought to the ER on account of slow speech and increasing somnolence. The biceps patient was unable to tell why he was brought to the ER, however he was alert and oriented x3. Denies any chest pain shortness for breath nausea vomiting not pain no diarrhea no dysuria. Noted that he uses walker for ambulation. ER evaluation notable for temperature 97.5?, pulse rate 63, 128/53, saturating 100% on room air. WBC 16.2, chest x-ray showed possible minimal atelectases versus pneumonia in the right lung base medially. CT abdomen and pelvis unremarkable. ER documentation noted At scene patient was found to have a blood sugar of 21 mg/dL, was given an amp of D50, and patient complained of abdominal pain. He was started on D10 infusion prior to transportation to the ER. Review of Systems Review of Systems: All other systems reviewed and negative except as noted in the history above. [facility] Past Medical History Medical History (Updated 02/14/24 @ 19:00 by Nancy Hess MD) Anticoagulant long-term use Candidiasis of other urogenital sites Anemia Diabetic peripheral neuropathy Rhabdomyolysis Urge urinary incontinence Chronic venous stasis dermatitis of both lower extremities Sick sinus syndrome (04/18/17) SAKSHI on CPAP (03/2019) CPAP of 7 Mixed hyperlipidemia (04/20/17) Essential hypertension Atrial fibrillation (04/20/17) On chronic anticoagulation with warfarin Hemochromatosis However patient's iron studies demonstrate a low iron level (12/2020), normal transferrin (in 2019) and normal hemoglobin and now actually has what appears bandemia chronic disease Obesity (BMI 35.0-39.9 without comorbidity) Pacemaker CAD (coronary artery disease), autologous vein bypass graft Arthritis Diabetes mellitus Erectile dysfunction Peripheral artery disease Surgical History Surgical History Pacemaker (04/2015) Single-chamber MRI compatible pacemaker Hx of CABG (~2004) Four-vessel CABG H/O right heart catheterization Family History Family History Father Acute myocardial infarction Son Family history of obesity Mother Uterine cancer Social History Social History Social History: He has been since 1997 and he he lives in his own home. He ambulates with a walker. His son comes and checks on him daily, and will be his surrogate Diego rosenthal. He is retired from the [employer]. He wishes to be a full code at this time. Smoking packs per day: 2.5 Smoking cigarettes per day: 50.0 Years smoked: 50 Smoking pack-years: 125.00 Smoking status: Former smoker Tobacco type: cigars Smokeless tobacco user: chewing tobacco Second hand tobacco smoke exposure: Yes Alcohol intake: unknown Substance use: unknown Substance use type: marijuana Do You Feel Safe in your Home?: Yes Lack of Transportation: No Lack of Food: Never True Current Housing: I Have Housing Concerned About Future Housing: No Difficulty Paying Gas/Electric Bills: No Difficulty Paying for Meds: No Currently Unemployed: No Education: Don't Know Difficulty w/ Childcare or Family Care: No Living arrangements: alone Occupation/Education: retired 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 Gender identity (if verbalized by the patient): Male Sexual Orientation (if Verbalized by the Patient): Straight or Heterosexual Spiritual care concerns: No Agree to blood products: Yes Meds Home Medications and Allergies Home Medications ?Medication ?Instructions ?Recorded ?Confirmed ?Type insulin aspart U-100 100 unit/mL 4 - 8 unit subcut Q6H #10 mL 11/11/23 02/15/24 Rx subcutaneous solution (Novolog U-100 Insulin aspart) insulin aspart U-100 100 unit/mL 12 unit (0.12 mL) subcut Q6H #10 mL 11/11/23 02/15/24 Rx subcutaneous solution (Novolog U-100 Insulin aspart) amlodipine 5 mg tablet (Norvasc) 5 mg PO DAILY #30 tabs 11/18/23 02/15/24 Rx multivitamin with minerals 1 tablet PO DAILY 12/20/23 02/15/24 History nystatin 100,000 unit/mL oral 100,000 unit PO QID 12/20/23 02/15/24 History suspension warfarin 2 mg tablet 1 mg PO DAILY 12/20/23 02/15/24 History insulin glargine 100 unit/mL (3 70 unit subcut QHS 12/21/23 02/15/24 History mL) subcutaneous pen (Lantus Solostar U-100 Insulin) insulin aspart U-100 100 unit/mL 4 - 8 unit subcut ACHS 12/28/23 02/15/24 Rx subcutaneous solution (Novolog U-100 Insulin aspart) Lactobacillus acidophilus 1 cap PO BID 02/15/24 02/15/24 History aspirin 81 mg chewable tablet 81 mg PO DAILY 02/15/24 02/15/24 History (Lynnette Chewable Low Dose Aspirin) dabigatran etexilate 150 mg capsule 150 mg PO BID 02/15/24 02/15/24 History fenofibrate nanocrystallized 145 mg PO HS 02/15/24 02/15/24 History furosemide 40 mg tablet 40 mg PO DAILY 02/15/24 02/15/24 History glyburide 5 mg-metformin 500 mg 2 tablet PO BID 02/15/24 02/15/24 History tablet insulin glargine 100 unit/mL 25 unit subcut HS 02/15/24 02/15/24 History subcutaneous solution (Lantus U-100 Insulin) metoprolol tartrate 25 mg tablet 6.25 mg PO Q6H 02/15/24 02/15/24 History pantoprazole 40 mg granules 40 mg feeding tube DAILY 02/15/24 02/15/24 History delayed-release for susp in packet polyethylene glycol 3350 17 17 g feeding tube BID 02/15/24 02/15/24 History gram/dose oral powder potassium chloride 20 mEq oral 20 meq PO DAILY 02/15/24 02/15/24 History packet (Klor-Con) rosuvastatin 10 mg tablet 10 mg feeding tube HS 02/15/24 02/15/24 History saxagliptin 5 mg tablet 5 mg PO DAILY 02/15/24 02/15/24 History sodium chloride 0.9 % 10 ml IV DAILY 02/15/24 02/15/24 History spironolactone 25 mg tablet 25 mg PO DAILY 02/15/24 02/15/24 History vancomycin 1.25 gram intravenous 1.25 g IV Q24H 02/15/24 02/15/24 History solution Allergies Allergy/AdvReac Type Severity Reaction Status Date / Time morphine AdvReac Agitated Verified 02/15/24 07:22 Vital Signs Vital Signs - 24 hr 02/14/24 16:18 02/14/24 19:08 02/14/24 22:59 Temperature 97.5 F L Pulse Rate 63 65 60 Respiratory Rate 18 16 16 Blood Pressure 128/53 L 97/71 L 99/53 L Pulse Oximetry 100 100 100 Oxygen Delivery Room Air 02/14/24 23:16 02/15/24 00:01 02/15/24 01:45 Temperature Pulse Rate 60 59 L 60 Respiratory Rate 14 16 29 H Blood Pressure 104/51 L 106/54 L 101/68 Pulse Oximetry 100 100 100 Oxygen Delivery 02/15/24 02:31 02/15/24 04:15 02/15/24 05:31 Temperature Pulse Rate 60 60 57 L Respiratory Rate 16 18 27 H Blood Pressure 107/52 L 112/55 L 108/55 L Pulse Oximetry 100 99 Oxygen Delivery 02/15/24 06:45 02/15/24 08:00 02/15/24 08:00 Temperature 98.1 F Pulse Rate 60 65 Respiratory Rate 15 26 H Blood Pressure 107/65 105/56 L Pulse Oximetry 100 100 Oxygen Delivery Room Air 02/15/24 08:00 02/15/24 08:15 02/15/24 08:30 Temperature Pulse Rate 60 60 60 Respiratory Rate 28 H 20 Blood Pressure 108/54 L 101/52 L Pulse Oximetry 100 100 Oxygen Delivery 02/15/24 09:08 02/15/24 09:54 02/15/24 10:00 Temperature Pulse Rate 60 60 60 Respiratory Rate 17 Blood Pressure 103/54 L 120/55 L Pulse Oximetry 100 100 Oxygen Delivery 02/15/24 11:58 02/15/24 12:00 02/15/24 12:00 Temperature 97.7 F Pulse Rate 54 L Respiratory Rate 28 H Blood Pressure 119/54 L Pulse Oximetry 99 100 Oxygen Delivery Room Air Room Air 02/15/24 12:00 Temperature Pulse Rate 68 Respiratory Rate Blood Pressure Pulse Oximetry Oxygen Delivery Exam Narrative: General: alert and comfortable Eyes: EOMI, PERRLA ENNT External ears normal, Neck is supple, no masses, Respiratory systems: Clear to auscultation Cardiovascular S1, S2, normal rhythm, no murmur, rub, or gallop; no thrill or palpable murmurs on palpation. Gastrointestinal: soft, non-tender, and non-distended abdomen with no masses; BS present Skin: Right heel ulcer and right buttocks also, appears clean and dry. Musculoskeletal: no abnormality and no tenderness, normal ROM Neurologic: Alert and oriented x3, non focal Mental Status Exam: normal affect H&P: Results Labs Labs: Short CBC 02/14/24 Range/Units 17:40 WBC 16.2 H (4.5-10.0) K/mm3 Hgb 9.5 L (14.0-18.0) g/dL Hct 29.5 L (42.0-52.0) % Plt Count 299 (150-375) k/mm3 BMP 02/14/24 17:40 Sodium 133 L Potassium 3.6 Chloride 100 Carbon Dioxide 26 BUN 26 H Creatinine 1.00 Glucose 187 H Calcium 8.9 Liver Function 02/14/24 Range/Units 17:40 Total Bilirubin 0.6 (0.2-1.3) mg/dL AST 25 (17-59) U/L ALT 9 (6-50) U/L Alkaline Phosphatase 85 (38-126) U/L Albumin 3.7 (3.5-5.1) g/dL Assessment and Plan Assessment and plan (1) Hypoglycemia: Code(s): E16.2 - Hypoglycemia, unspecified Status: Acute (2) Pneumonia: Qualifiers: Laterality: unspecified laterality Lung location: lower lobe of lung Pneumonia type: due to unspecified organism Qualified Code(s): J18.9 - Pneumonia, unspecified organism Code(s): J18.9 - Pneumonia, unspecified organism Status: Acute Assessment and Plan: Hypoglycemia, resolved. Patient alert and oriented at bedside. Resolved blood sugar elevated at this time. Patient is on glyburide metformin saxagliptin Hold medications and diet with clinical course. Monitor closely. Pneumonia, gram-negative bacillus is g positive. Chest x-ray showed a right lower lobe atelectasis versus pneumonia, however this is patient has leukocytosis which returns pneumonia. WBC 16 Blood culture MRSA positive. Started Rocephin, doxycycline and Flagyl Monitor CHF exacerbation Stable Continue home diuretics Recent MRSA bacteremia Patient was transferred to [facility] last admission in December. Is currently not on vancomycin per home medication review. Hopefully infection was treated adequately. Type 2 diabetes Continue the sliding scale insulin with Accu-Cheks. Will discontinue glyburide due to hypoglycemia. Continue monitoring. right buttocks ulcer left heel ulcer. Wound appears dry clean. Consult care. DVT prophylaxis patient is dabigatran Patient is full code Surrogate decision maker, son Diego Marquez Hospitalist [facility] Advance Care Plan I have confirmed that the patient's Advanced Care Plan is present, code status is documented, or surrogate decision maker is listed in patient medical record.: Yes Medication Reconciliation I have utilized all available resources to obtain, update and review the patients current medications (includes all prescriptions, OTC, herbals, cannabis, and nutritional supplements).: Yes
[2024-02-15] MEDS: metroNIDAZOLE 500 MG/ISO 100ML 500 MG/100 ML BAG 100 MG IVPB (14:36)
[2024-02-15] MEDS: cefTRIAXone 2 GM/NS 100 ML 2 GM/100 ML BAG IVPB (14:37)
[2024-02-15] MEDS: MUPIROCIN 2% OINT 22 GM TUBE 1 APPLIC EACH NARE ×2 (14:37→20:43)
[2024-02-15] MEDS: METOPROLOL TARTRATE 6.25 MG TABLET PO ×2 (14:56→20:43)
[2024-02-15 16:42] LABS: Glucose Point of Care 201 mg/dl (65-105)
--- NOTE | 2024-02-15 16:59 | PC.NURSE ---
Notified Dr Quintanilla of patients POC of 201. Received order t ohold D10 drip and start sugar checks q2h. Will call back with 1800 results.
[2024-02-15] MEDS: DOXYCYCLINE 100 MG/NS 100 ML 100 MG/100 ML BAG IVPB (18:02)
[2024-02-15 18:10] LABS: Glucose Point of Care 169 mg/dl (65-105)
--- NOTE | 2024-02-15 18:14 | PC.NURSE ---
Notified Dr Quintanilla of PT glucose 169. Received order to continue holding D10. Recheck POC glucose at 1999 and call with results. Also received order to reorder metoprolol as q12hr. Orders read back and verified.
[2024-02-15 20:02] LABS: Glucose Point of Care 145 mg/dl (65-105)
[2024-02-15] MEDS: ROSUVASTATIN 10 MG TABLET FEED TUBE (20:43)
--- NOTE | 2024-02-15 21:43 | PC.NURSE ---
Dr. Quintanilla was called at approximately 2030 per his request and I left a message to call back. He then returned the call at approximately 2100. He was updated on patient status and glucose. He ordered this RN to continue to hold D10W. Continue glucose management orders, but resume D10W at ordered rate if FSBS drops below 120.
--- NOTE | 2024-02-15 23:26 | PC.NURSE ---
This patient was transferred at 2310 from ICU-5 to IMU 210 in stable condition. All of his belongings were transferred with him. This RN will retain care of the patient as the primary care RN.
[2024-02-16] VITALS (12 sets, daily range): BP systolic 100–109; BP diastolic 50–61; PULSE 56–60; RESP 18–20; TEMP 36.5–36.8; O2SAT 96–100; BMI 31.8
[2024-02-16] MEDS: DOXYCYCLINE 100 MG/NS 100 ML 100 MG/100 ML BAG IVPB ×2 (05:45→17:15)
[2024-02-16] MEDS: metroNIDAZOLE 500 MG/ISO 100ML 500 MG/100 ML BAG 100 MG IVPB ×3 (05:46→21:10)
[2024-02-16 06:08] LABS: Glucose Point of Care 108 mg/dl (65-105)
[2024-02-16 06:08] LABS: Glucose Point of Care 137 mg/dl (65-105)
[2024-02-16 06:08] LABS: Glucose Point of Care 160 mg/dl (65-105)
[2024-02-16 06:08] LABS: Glucose Point of Care 136 mg/dl (65-105)
[2024-02-16] MEDS: METOPROLOL TARTRATE 6.25 MG TABLET PO ×2 (08:03→20:23)
[2024-02-16] MEDS: FUROSEMIDE 40 MG TABLET PO (08:04)
[2024-02-16] MEDS: DABIGATRAN ETEXILATE 150 MG CAPSULE PO ×2 (08:04→20:23)
[2024-02-16] MEDS: SITagliptin PHOSPHATE 100 MG TABLET PO (08:04)
[2024-02-16] MEDS: MUPIROCIN 2% OINT 22 GM TUBE 1 APPLIC EACH NARE ×2 (08:04→20:25)
[2024-02-16] MEDS: SPIRONOLACTONE 25 MG TABLET PO (08:04)
[2024-02-16] MEDS: ASPIRIN 81 MG CHEWABLE TABLET PO (08:04)
[2024-02-16] MEDS: ACETAMINOPHEN 325 MG TABLET 650 MG PO ×2 (08:08→20:24)
[2024-02-16 10:22] LABS: Basophils Percent Auto 0.6 % (0.2-1.2); Eosinophils Absolute Auto 0.1 K/mm3 (0-0.3); Eosinophils Percent Auto 1.4 % (0-4.4); Hemoglobin 9.3 g/dL (14.0-18.0); Immature Granulocyte Absolute 0.08 K/mm3 (0.00-0.031); Immature Granulocyte Percent A 1.1 % (0-0.5); Lymphocytes Absolute Auto 2.29 K/mm3 (0.9-3.2); Lymphocytes Percent Auto 31.6 % (18.3-44.2); Mean Corpuscular HGB Conc 32.1 g/dl (32-36); Mean Corpuscular Hemoglobin 27.6 pg (26-34); Mean Corpuscular Volume 86.1 fl (80-100); Monocytes Absolute Auto 0.6 K/mm3 (0.1-0.6); Monocytes Percent Auto 8.8 % (2.6-8.5); Neutrophils Absolute Auto 4.1 K/mm3 (1.3-6.7); Neutrophils Percent Auto 56.5 % (45.5-73.1); Platelet Count Result 302 k/mm3 (150-375); Red Blood Count 3.37 M/mm3 (4.6-6.20); Red Cell Distribution Width 16.6 % (11.5-14.5); White Blood Count 7.3 K/mm3 (4.5-10.0)
[2024-02-16 10:44] LABS: Alanine Aminotransferase 10 U/L (6-50); Albumin Level 3.5 g/dL (3.5-5.1); Alkaline Phosphatase 85 U/L (38-126); Anion Gap 5 mmol/L (4-12); Aspartate Amino Transferase 35 U/L (17-59); Bilirubin,Total 0.4 mg/dL (0.2-1.3); Blood Urea Nitrogen 21 mg/dL (9-20); Calcium 8.9 mg/dL (8.4-10.2); Carbon Dioxide 26 mmol/L (22-30); Chloride 100 mmol/L (98-107); Estimated CRCL calculation 64 ml/min; Estimated Glomerular Filt Rate > 60; Glucose 120 mg/dL (65-110); Magnesium 1.9 mg/dL (1.6-2.3); Potassium 3.7 mmol/L (3.4-5.0); Sodium 131 mmol/L (137-145)
[2024-02-16] MEDS: cefTRIAXone 2 GM/NS 100 ML 2 GM/100 ML BAG IVPB (14:34)
[2024-02-16] MEDS: CENTRAL LINE FLUSH 10 ML IV PUSH ×2 (14:34→21:10)
[2024-02-16] MEDS: COLLAGENASE OINT 30 GM TUBE 1 APPLIC TOPICAL (14:38)
--- NOTE | 2024-02-16 16:43 | P.PNIM_ITS ---
Progress Note: A&P Assessment and Plan (1) Hypoglycemia: Code(s): E16.2 - Hypoglycemia, unspecified Status: Acute (2) Pneumonia: Qualifiers: Laterality: unspecified laterality Lung location: lower lobe of lung Pneumonia type: due to unspecified organism Qualified Code(s): J18.9 - Pneumonia, unspecified organism Code(s): J18.9 - Pneumonia, unspecified organism Status: Acute Assessment and Plan: Hypoglycemia, resolved. Patient alert and oriented at bedside. Resolved blood sugar elevated at this time. Patient is on glyburide metformin saxagliptin Hold medications and diet with clinical course. Monitor closely. Pneumonia, gram-negative bacillus is g positive. Chest x-ray showed a right lower lobe atelectasis versus pneumonia, however this is patient has leukocytosis which returns pneumonia. WBC 16 Blood culture MRSA positive. On Rocephin, doxycycline and Flagyl Monitor CHF exacerbation Stable Continue home diuretics Recent MRSA bacteremia from infected pacemaker wire Patient was transferred to [facility] last admission in December. Continue home Vancomycin to finish on 02/23 monitor Type 2 diabetes Continue the sliding scale insulin with Accu-Cheks. Will discontinue glyburide due to hypoglycemia. Continue monitoring. right buttocks ulcer left heel ulcer. Wound appears dry clean. Consult care. DVT prophylaxis patient is dabigatran Patient is full code Surrogate decision maker, son Diego Marquez possible discharge tomorrow Subjective Date/time seen: 02/16/24 16:43 Review of Systems Review of Systems: All other systems reviewed and negative except as noted in the history above. Exam Narrative: General: alert and comfortable Eyes: EOMI, PERRLA ENNT External ears normal, Neck is supple, no masses, Respiratory systems: Clear to auscultation Cardiovascular S1, S2, normal rhythm, no murmur, rub, or gallop; no thrill or palpable murmurs on palpation. Gastrointestinal: soft, non-tender, and non-distended abdomen with no masses; BS present Skin: Right heel ulcer and right buttocks also, appears clean and dry. Musculoskeletal: no abnormality and no tenderness, normal ROM Neurologic: Alert and oriented x3, non focal Mental Status Exam: normal affect Objective Data Vital Signs Vital Signs: Vital Signs - 24 hr 02/15/24 18:00 02/15/24 18:35 02/15/24 20:00 Temperature Pulse Rate 60 60 Respiratory Rate Blood Pressure 111/53 L Pulse Oximetry 99 Oxygen Delivery Room Air 02/15/24 20:00 02/15/24 20:25 02/15/24 20:43 Temperature 98.2 F Pulse Rate 60 60 60 Respiratory Rate 18 Blood Pressure 99/50 L Pulse Oximetry 99 Oxygen Delivery 02/15/24 23:58 02/16/24 00:00 02/16/24 00:00 Temperature 98.0 F Pulse Rate 60 60 Respiratory Rate 18 Blood Pressure 119/55 L Pulse Oximetry 100 Oxygen Delivery Room Air 02/16/24 02:00 02/16/24 04:00 02/16/24 04:00 Temperature Pulse Rate 60 60 Respiratory Rate Blood Pressure Pulse Oximetry Oxygen Delivery Room Air 02/16/24 04:13 02/16/24 06:00 02/16/24 07:55 Temperature 98.1 F 97.7 F Pulse Rate 60 60 60 Respiratory Rate 18 20 Blood Pressure 109/50 L 100/50 L Pulse Oximetry 100 98 Oxygen Delivery 02/16/24 08:00 02/16/24 08:00 02/16/24 08:03 Temperature Pulse Rate 60 56 L 60 Respiratory Rate 20 Blood Pressure Pulse Oximetry 98 Oxygen Delivery Room Air 02/16/24 10:00 02/16/24 16:22 Temperature 98.3 F Pulse Rate 60 60 Respiratory Rate 18 Blood Pressure 105/56 L Pulse Oximetry 100 Oxygen Delivery Intake/Output Intake/Output: Intake & Output 02/13/24 02/14/24 02/15/24 02/16/24 23:59 23:59 23:59 23:59 Intake Total 1478.7 1210 Output Total 425 700 Balance 1053.7 510 Meds/Results Medications: Active Medications Generic Name Dose Route Start Last Admin Trade Name Freq PRN Reason Stop Dose Admin Acetaminophen 650 mg 02/15/24 06:24 02/16/24 08:08 Acetaminophen 325 Mg Tablet PO 650 mg Q4H PRN Administration Mild Pain (1-3) or Fever Aspirin 81 mg 02/15/24 09:00 02/16/24 08:04 Aspirin 81 Mg Chewable Tablet PO 81 mg DAILY SUNNY Administration Collagenase 1 applic 02/16/24 09:00 02/16/24 14:38 Collagenase Oint 30 Gm Tube TOPICAL 1 applic QAM SUNNY Administration Dabigatran 150 mg 02/15/24 09:00 02/16/24 08:04 Dabigatran Etexilate 150 Mg Capsule PO 150 mg Q12HR SUNNY Administration Dextrose 12.5 gm 02/15/24 06:24 Dextrose 50% 25 Gm/50 Ml Syringe IV PUSH PRN PRN Hypoglycemia Protocol Furosemide 40 mg 02/15/24 09:00 02/16/24 08:04 Furosemide 40 Mg Tablet PO 40 mg DAILY SUNNY Administration Glucagon 1 mg 02/15/24 06:24 Glucagon For Inj 1 Mg Vial IM PRN PRN Hypoglycemia Protocol Glucose 15 gm 02/15/24 06:24 Glucose Oral Gel 15 Gm Of Glucse In 37.5 Gm Tube PO PRN PRN Hypoglycemia Protocol Dextrose 1,000 mls @ 100 mls/hr 02/15/24 06:24 Dextrose 5% 1,000 Ml IVPB PRN PRN Hypoglycemia Protocol Ceftriaxone Sodium 2 gm in 100 mls @ 200 mls/hr 02/15/24 14:00 02/16/24 16:04 Rocephin 2 Gm/Ns 100 Ml IVPB Infused Q24H SUNNY Infusion Doxycycline Hyclate 100 mg in 100 mls @ 100 mls/hr 02/15/24 18:00 02/16/24 0 5:45 Vibramycin 100 Mg/Ns 100 Ml IVPB 100 mls/hr Q12H SUNNY Administration Metronidazole 500 mg in 100 mls @ 100 mls/hr 02/15/24 14:00 02/16/24 16:04 Flagyl 500 Mg/Iso Soln 100 Ml IVPB Infused Q8H SUNNY Infusion Metoprolol Tartrate 6.25 mg 02/15/24 21:00 02/16/24 08:03 Metoprolol Tartrate 6.25 Mg Tablet PO 6.25 mg Q12HR SUNNY Administration Mupirocin 1 applic 02/15/24 14:00 02/16/24 08:04 Mupirocin 2% Oint 22 Gm Tube EACH NARE 1 applic Q12HR SUNNY Administration Ondansetron HCl 4 mg 02/15/24 06:24 Ondansetron Inj 4 Mg/2 Ml Vial IV PUSH Q4H PRN Nausea Rosuvastatin Calcium 10 mg 02/15/24 21:00 02/15/24 20:43 Rosuvastatin 10 Mg Tablet FEED TUBE 10 mg HS SUNNY Administration Sitagliptin Phosphate 100 mg 02/16/24 09:00 02/16/24 08:04 Sitagliptin Phosphate 100 Mg Tablet PO 01/11/25 08:59 100 mg DAILY SUNNY Administration Sodium Chloride 10 ml 02/16/24 14:00 02/16/24 14:34 Central Line Flush IV PUSH 10 ml Q8HR SUNNY Administration Sodium Chloride 10 ml 02/16/24 08:04 Central Line Flush IV PUSH PRN PRN with TPN bag changes Sodium Chloride 20 ml 02/16/24 08:04 Central Line Flush IV PUSH PRN PRN after blood draws Spironolactone 25 mg 02/15/24 09:00 02/16/24 08:04 Spironolactone 25 Mg Tablet PO 25 mg DAILY SUNNY Administration Radiology Results: ITS Impressions Chest X-Ray 02/14/24 17:09 IMPRESSION: Right PICC line with the tip overlying the superior vena cava. Possible minimal atelectasis versus pneumonia in the right lung base medially. Abdomen/Pelvis CT 02/15/24 06:04 Impression: Probable mild cirrhotic morphology of the liver. No definite acute abnormality seen. Chronic findings, as above. Labs Labs: Laboratory Results - last 24 hr 02/15/24 02/15/24 02/16/24 18:01 20:00 00:06 WBC RBC Hgb Hct MCV MCH MCHC RDW Plt Count MPV Immature Gran % (Auto) Neut % (Auto) Lymph % (Auto) Reeves % (Auto) Eos % (Auto) Baso % (Auto) Lymph # (Auto) Reeves # (Auto) Eos # (Auto) Baso # (Auto) Abs Immat Gran (auto) Absolute Neuts (auto) Absolute Nucleated RBC Nucleated RBC % Sodium Potassium Chloride Carbon Dioxide Anion Gap BUN Creatinine Estim Creat Clear Calc Estimated GFR Glucose POC Capillary Glucose 169 H 145 H 160 H Calcium Magnesium Total Bilirubin AST ALT Alkaline Phosphatase Total Protein Albumin 02/16/24 02/16/24 02/16/24 01:55 04:05 06:04 WBC RBC Hgb Hct MCV MCH MCHC RDW Plt Count MPV Immature Gran % (Auto) Neut % (Auto) Lymph % (Auto) Reeves % (Auto) Eos % (Auto) Baso % (Auto) Lymph # (Auto) Reeves # (Auto) Eos # (Auto) Baso # (Auto) Abs Immat Gran (auto) Absolute Neuts (auto) Absolute Nucleated RBC Nucleated RBC % Sodium Potassium Chloride Carbon Dioxide Anion Gap BUN Creatinine Estim Creat Clear Calc Estimated GFR Glucose POC Capillary Glucose 137 H 108 H 136 H Calcium Magnesium Total Bilirubin AST ALT Alkaline Phosphatase Total Protein Albumin 02/16/24 10:15 WBC 7.3 RBC 3.37 L Hgb 9.3 L Hct 29.0 L MCV 86.1 MCH 27.6 MCHC 32.1 RDW 16.6 H Plt Count 302 MPV 9.0 Immature Gran % (Auto) 1.1 H Neut % (Auto) 56.5 Lymph % (Auto) 31.6 Reeves % (Auto) 8.8 H Eos % (Auto) 1.4 Baso % (Auto) 0.6 Lymph # (Auto) 2.29 Reeves # (Auto) 0.6 Eos # (Auto) 0.1 Baso # (Auto) 0.0 Abs Immat Gran (auto) 0.08 H Absolute Neuts (auto) 4.1 Absolute Nucleated RBC 0.000 Nucleated RBC % 0.0 Sodium 131 L Potassium 3.7 Chloride 100 Carbon Dioxide 26 Anion Gap 5 BUN 21 H Creatinine 1.00 Estim Creat Clear Calc 64 Estimated GFR > 60 Glucose 120 H POC Capillary Glucose Calcium 8.9 Magnesium 1.9 Total Bilirubin 0.4 AST 35 ALT 10 Alkaline Phosphatase 85 Total Protein 7.0 Albumin 3.5
[2024-02-16] MEDS: ROSUVASTATIN 10 MG TABLET FEED TUBE (20:23)
[2024-02-16 20:30] LABS: Glucose Point of Care 159 mg/dl (65-105)
--- NOTE | 2024-02-16 22:11 | PC.NURSE ---
This patient, Diego Marquez Sr., was transferred to [[address] [place] [address], room 257 ] on 02/16/24 at 2211. Personal belongings sent with patient. Report given to [ZI Sands ]. Appropriate documentation sent with patient.
--- NOTE | 2024-02-16 22:13 | PC.NURSE ---
Notified pt's son, Diego ([phone]) that pt will be moving to [address] [place] [address], room 257.
--- NOTE | 2024-02-16 22:28 | PC.NURSE ---
This pt was transferred from IMU to 2nd Medical room 257. Chart and belongings were brought over with pt.
[2024-02-17] MEDS: ACETAMINOPHEN 325 MG TABLET 650 MG PO ×3 (01:47→16:48)
[2024-02-17 05:07] VITALS: BP 109/48; PULSE 59; RESP 16; TEMP 36.7; O2SAT 99
[2024-02-17] MEDS: CENTRAL LINE FLUSH 10 ML IV PUSH (05:08)
[2024-02-17] MEDS: CENTRAL LINE FLUSH 20 ML IV PUSH (05:08)
[2024-02-17] MEDS: metroNIDAZOLE 500 MG/ISO 100ML 500 MG/100 ML BAG 100 MG IVPB (05:08)
[2024-02-17 05:23] LABS: Alanine Aminotransferase 10 U/L (6-50); Albumin Level 3.4 g/dL (3.5-5.1); Alkaline Phosphatase 83 U/L (38-126); Anion Gap 4 mmol/L (4-12); Aspartate Amino Transferase 30 U/L (17-59); Bilirubin,Total 0.3 mg/dL (0.2-1.3); Blood Urea Nitrogen 21 mg/dL (9-20); Calcium 8.8 mg/dL (8.4-10.2); Carbon Dioxide 28 mmol/L (22-30); Chloride 101 mmol/L (98-107); Estimated CRCL calculation 59 ml/min; Estimated Glomerular Filt Rate > 60; Glucose 90 mg/dL (65-110); Magnesium 1.9 mg/dL (1.6-2.3); Potassium 3.6 mmol/L (3.4-5.0); Sodium 133 mmol/L (137-145)
[2024-02-17 05:31] LABS: Basophils Absolute Auto 0.1 K/mm3 (0.0-0.1); Basophils Percent Auto 0.6 % (0.2-1.2); Eosinophils Absolute Auto 0.1 K/mm3 (0-0.3); Eosinophils Percent Auto 1.6 % (0-4.4); Hematocrit 28.6 % (42.0-52.0); Hemoglobin 9.2 g/dL (14.0-18.0); Immature Granulocyte Percent A 1.3 % (0-0.5); Lymphocytes Absolute Auto 2.42 K/mm3 (0.9-3.2); Lymphocytes Percent Auto 31.3 % (18.3-44.2); Mean Corpuscular HGB Conc 32.2 g/dl (32-36); Mean Corpuscular Hemoglobin 27.6 pg (26-34); Mean Corpuscular Volume 85.9 fl (80-100); Mean Platelet Volume 9.4 fl (7.4-10.4); Monocytes Absolute Auto 0.6 K/mm3 (0.1-0.6); Neutrophils Absolute Auto 4.4 K/mm3 (1.3-6.7); Neutrophils Percent Auto 57.2 % (45.5-73.1); Platelet Count Result 308 k/mm3 (150-375); Red Blood Count 3.33 M/mm3 (4.6-6.20); Red Cell Distribution Width 16.6 % (11.5-14.5); White Blood Count 7.7 K/mm3 (4.5-10.0)
[2024-02-17] MEDS: DOXYCYCLINE 100 MG/NS 100 ML 100 MG/100 ML BAG IVPB (06:22)
[2024-02-17 06:52] LABS: Glucose Point of Care 110 mg/dl (65-105)
[2024-02-17 07:54] LABS: Glucose Point of Care 95 mg/dl (65-105)
[2024-02-17 08:00] VITALS: O2SAT 99
[2024-02-17] MEDS: FUROSEMIDE 40 MG TABLET PO (08:18)
[2024-02-17] MEDS: SPIRONOLACTONE 25 MG TABLET PO (08:18)
[2024-02-17] MEDS: SITagliptin PHOSPHATE 100 MG TABLET PO (08:18)
[2024-02-17] MEDS: ASPIRIN 81 MG CHEWABLE TABLET PO (08:18)
[2024-02-17] MEDS: MUPIROCIN 2% OINT 22 GM TUBE 1 APPLIC EACH NARE (08:19)
[2024-02-17] MEDS: DABIGATRAN ETEXILATE 150 MG CAPSULE PO (08:19)
[2024-02-17] MEDS: COLLAGENASE OINT 30 GM TUBE 1 APPLIC TOPICAL (08:19)
[2024-02-17 08:20] VITALS: PULSE 60
[2024-02-17] MEDS: METOPROLOL TARTRATE 6.25 MG TABLET PO (08:20)
[2024-02-17 11:24] LABS: Glucose Point of Care 176 mg/dl (65-105)
--- NOTE | 2024-02-17 11:55 | PM.DS ---
DS: Admitting Diagnosis Discharge Date 02/17/24 Admitting Diagnosis somnolence and slurred speech DS: Discharge Diagnosis Discharge Diagnosis (1) Hypoglycemia: Code(s): E16.2 - Hypoglycemia, unspecified Status: Acute (2) Pneumonia: Qualifiers: Laterality: unspecified laterality Lung location: lower lobe of lung Pneumonia type: due to unspecified organism Qualified Code(s): J18.9 - Pneumonia, unspecified organism Code(s): J18.9 - Pneumonia, unspecified organism Status: Acute DS: Summary Hospital Course Hospital Course: 73-year-old male with past medical history of CAD status post CABG, peripheral artery disease, atrial fibrillation with sick sinus syndrome status post permanent pacemaker was brought to the ER on account of slow speech and increasing somnolence. The biceps patient was unable to tell why he was brought to the ER, however he was alert and oriented x3. Denies any chest pain shortness for breath nausea vomiting not pain no diarrhea no dysuria. Noted that he uses walker for ambulation. ER evaluation notable for temperature 97.5?, pulse rate 63, 128/53, saturating 100% on room air. WBC 16.2, chest x-ray showed possible minimal atelectases versus pneumonia in the right lung base medially. CT abdomen and pelvis unremarkable. ER documentation noted At scene patient was found to have a blood sugar of 21 mg/dL, was given an amp of D50, and patient complained of abdominal pain. He was started on D10 infusion prior to transportation to the ER. Metformin, Glyburide, Lantus and Novolog were held. Patient was initially placed D5W infusion. Transitioned off D5W, restarted on Saxagliptin and Blood sugar remained stable and within normal limits. Patient will follow up with PCP for further adjustment. Vancomycin was continued for MRSA bacteremia from infected pacemaker wire. Discussed with son and he noted that Vancomycin will end on 02/24/24 Patient will continue follow up with ID at [facility]. Pneumonia CXR showed RLL completed 3 days Rocephin, Doxycycline and Flagyl. Discharged Augmentin and Doxycycline x 4 more days. Assessment and Plan (1) Hypoglycemia: Code(s): E16.2 - Hypoglycemia, unspecified Status: Acute (2) Pneumonia: Qualifiers: Laterality: unspecified laterality Lung location: lower lobe of lung Pneumonia type: due to unspecified organism Qualified Code(s): J18.9 - Pneumonia, unspecified organism Code(s): J18.9 - Pneumonia, unspecified organism Status: Acute Assessment and Plan: Hypoglycemia, resolved. Patient alert and oriented at bedside. Resolved blood sugar elevated at this time. Patient is on glyburide metformin saxagliptin Hold medications and diet with clinical course. Monitor closely. Pneumonia, gram-negative bacillus is g positive. Chest x-ray showed a right lower lobe atelectasis versus pneumonia, however this is patient has leukocytosis which returns pneumonia. WBC 16 Blood culture MRSA positive. On Rocephin, doxycycline and Flagyl Monitor CHF exacerbation Stable Continue home diuretics Recent MRSA bacteremia from infected pacemaker wire Patient was transferred to [facility] last admission in December. Continue home Vancomycin to finish on 02/23 monitor Type 2 diabetes Continue the sliding scale insulin with Accu-Cheks. Will discontinue glyburide due to hypoglycemia. Continue monitoring. Hypertension Blood pressure soft Continue Metoprolol and Hold Amlodipine until follow up with PCP monitor right buttocks ulcer left heel ulcer. Wound appears dry clean. Consult care. Time Spent with Patient Time attestation: Total time spent providing and/or coordinating discharge services: DS: Data Data Completed and Pending Labs on day of discharge: Labs from last 24 hours 02/17/24 02/17/24 02/17/24 11:22 07:28 05:04 WBC 7.7 RBC 3.33 L Hgb 9.2 L Hct 28.6 L MCV 85.9 MCH 27.6 MCHC 32.2 RDW 16.6 H Plt Count 308 MPV 9.4 Immature Gran % (Auto) 1.3 H Neut % (Auto) 57.2 Lymph % (Auto) 31.3 [place] % (Auto) 8.0 Eos % (Auto) 1.6 Baso % (Auto) 0.6 Lymph # (Auto) 2.42 [place] # (Auto) 0.6 Eos # (Auto) 0.1 Baso # (Auto) 0.1 Abs Immat Gran (auto) 0.10 H Absolute Neuts (auto) 4.4 Absolute Nucleated RBC 0.000 Nucleated RBC % 0.0 Sodium 133 L Potassium 3.6 Chloride 101 Carbon Dioxide 28 Anion Gap 4 BUN 21 H Creatinine 1.10 Estim Creat Clear Calc 59 Estimated GFR > 60 Glucose 90 POC Capillary Glucose 176 H 95 Calcium 8.8 Magnesium 1.9 Total Bilirubin 0.3 AST 30 ALT 10 Alkaline Phosphatase 83 Total Protein 7.0 Albumin 3.4 L 02/16/24 02/16/24 20:26 16:06 WBC RBC Hgb Hct MCV MCH MCHC RDW Plt Count MPV Immature Gran % (Auto) Neut % (Auto) Lymph % (Auto) [place] % (Auto) Eos % (Auto) Baso % (Auto) Lymph # (Auto) [place] # (Auto) Eos # (Auto) Baso # (Auto) Abs Immat Gran (auto) Absolute Neuts (auto) Absolute Nucleated RBC Nucleated RBC % Sodium Potassium Chloride Carbon Dioxide Anion Gap BUN Creatinine Estim Creat Clear Calc Estimated GFR Glucose POC Capillary Glucose 159 H 110 H Calcium Magnesium Total Bilirubin AST ALT Alkaline Phosphatase Total Protein Albumin Preliminary micro results at discharge 02/15/24 15:16 Blood Culture - Preliminary Blood 02/15/24 15:16 Blood Culture - Preliminary Blood Discharge Plan Discharge Attending physician on discharge: Key Quintanilla Discharging Clinician: Kye Quintanilla Anticipated Discharge Date/Time: 02/17/24 11:44 Patient Disposition: SNF Activity: as tolerated Diet: as tolerated Patient Instructions: Pain Management (DC) Patient Language: Icelandic Stand Alone Forms: General Discharge Information Discharge Medications: New amoxicillin-pot clavulanate 875-125 mg tablet 1 tablet PO Q12H 4 Days Qty: 8 0RF doxycycline hyclate 100 mg tablet 100 mg PO BID 4 Days Qty: 8 0RF Continued warfarin 2 mg tablet 1 mg PO DAILY Rx Instructions: tuesday, tuesday, tuesday, and tuesday multivitamin with minerals Tablet 1 tablet PO DAILY nystatin 100,000 unit/mL Suspension 100,000 unit PO QID Rx Instructions: Swish and spit insulin aspart U-100 [Novolog U-100 Insulin aspart] 100 unit/mL Solution 4 - 8 unit subcut ACHS 0RF Protocol: Insulin Corrective High-Dose Condition: glucose < 70 mg/dl Dose/Route: Follow hypoglycemia order Condition: glucose 70-200 mg/dl Dose/Route: No additional insulin Condition: glucose 201-250 mg/dl Dose/Route: 4 units sub-Q Condition: glucose 251-300 mg/dl Dose/Route: 5 units sub-Q Condition: glucose 301-350 mg/dl Dose/Route: 6 units sub-Q Condition: glucose 351-400 mg/dl Dose/Route: 8 units sub-Q Condition: glucose > 400 mg/dl Dose/Route: Call Lactobacillus acidophilus [Acidophilus] 1 cap PO BID aspirin [Lynnette Chewable Aspirin] 81 mg tablet,chewable 81 mg PO DAILY dabigatran etexilate 150 mg capsule 150 mg PO BID fenofibrate nanocrystallized tablet 145 mg PO HS furosemide 40 mg tablet 40 mg PO DAILY potassium chloride [Klor-Con] 20 mEq packet 20 meq PO DAILY metoprolol tartrate 25 mg tablet 6.25 mg PO Q6H polyethylene glycol 3350 17 gram/dose powder 17 g feeding tube BID pantoprazole [address] for susp in packet 40 mg feeding tube DAILY rosuvastatin 10 mg tablet 10 mg feeding tube HS saxagliptin 5 mg tablet 5 mg PO DAILY sodium chloride 0.9 % Solution 10 ml IV DAILY Rx Instructions: flush picc before and after ABT dose spironolactone 25 mg tablet 25 mg PO DAILY vancomycin 1.25 gram recon soln 1.25 g IV Q24H Patient Comments: End date of 02/24/24 insulin aspart U-100 [Novolog U-100 Insulin aspart] 100 unit/mL Solution 12 unit subcut Q6H Qty: 10 0RF insulin aspart U-100 [Novolog U-100 Insulin aspart] 100 unit/mL Solution 4 - 8 unit subcut Q6H Qty: 10 0RF Protocol: Insulin Corrective High-Dose Condition: glucose < 70 mg/dl Dose/Route: Follow hypoglycemia order Condition: glucose 70-200 mg/dl Dose/Route: No additional insulin Condition: glucose 201-250 mg/dl Dose/Route: 4 units sub-Q Condition: glucose 251-300 mg/dl Dose/Route: 5 units sub-Q Condition: glucose 301-350 mg/dl Dose/Route: 6 units sub-Q Condition: glucose 351-400 mg/dl Dose/Route: 8 units sub-Q Condition: glucose > 400 mg/dl Dose/Route: Call Rx Instructions: BS 201-250= 4 units, 251-300= 5 units, 301-350= 6 units, 351-400= 8 units, above 400 call Held amlodipine [Norvasc] 5 mg Tablet 5 mg PO DAILY Qty: 30 0RF Hold Instructions: Resume on 03/02/24. hold until follow up wtih PCP Discontinued insulin glargine [Lantus Solostar U-100 Insulin] 100 unit/mL (3 mL) insulin pen 70 unit SUBCUT QHS glyburide-metformin 5-500 mg tablet 2 tablet PO BID insulin glargine [Lantus U-100 Insulin] 100 unit/mL Solution 25 unit subcut HS Date of admission: 02/16/24 15:56 Primary Care Provider: Dominic Recinos Admitting Provider: Octavia Jacobsen V. Attending physician on admission: Octavia Jacobsen V. Condition: Stable
[2024-02-17 14:00] VITALS: BP 105/39; PULSE 61; RESP 16; TEMP 36.1; O2SAT 100
[2024-02-17 16:27] LABS: Glucose Point of Care 146 mg/dl (65-105)
[2024-02-17 19:27] VITALS: BP 108/57; PULSE 61; RESP 16; TEMP 36.4; O2SAT 98
[2024-02-17 20:19] LABS: Glucose Point of Care 166 mg/dl (65-105)
[2024-02-20 11:55] LABS: Glucose Point of Care 112 mg/dl (65-105)
[2024-02-20 11:55] LABS: Glucose Point of Care 118 mg/dl (65-105)
[2024-02-20 12:33] LABS: Glucose Point of Care 110 mg/dl (65-105)
== END 2024-02-17 19:50 | DRG 194 ==
LOC: ANHED 02-15 01:37 → ANHICU 02-15 06:53 → ANHIMU 02-15 23:56 → ANH2MED 02-17 11:47 → ANHIMU 02-21 11:12
PROVIDERS: Emergency Medicine; Admitting Provider Internal Medicine; Emergency Provider Student in an Organized Health Care Education/Training Program; PCP Internal Medicine; Visit Provider Internal Medicine
DX: J18.9 Pneumonia, unspecified organism (principal); I48.20 Chronic atrial fibrillation, unspecified; E11.649 Type 2 diabetes mellitus with hypoglycemia without coma; I10 Essential (primary) hypertension; I49.5 Sick sinus syndrome; I25.10 Atherosclerotic heart disease of native coronary artery without angina pectoris; I87.2 Venous insufficiency (chronic) (peripheral); E78.2 Mixed hyperlipidemia; E11.51 Type 2 diabetes mellitus with diabetic peripheral angiopathy without gangrene; E11.42 Type 2 diabetes mellitus with diabetic polyneuropathy; L89.319 Pressure ulcer of right buttock, unspecified stage; L89.619 Pressure ulcer of right heel, unspecified stage; M19.90 Unspecified osteoarthritis, unspecified site; G47.33 Obstructive sleep apnea (adult) (pediatric); T82.7XXD Infection and inflammatory reaction due to other cardiac and vascular devices, implants and grafts, subsequent encounter; Z79.01 Long term (current) use of anticoagulants; Z95.0 Presence of cardiac pacemaker; Z95.1 Presence of aortocoronary bypass graft; Z87.891 Personal history of nicotine dependence; Z79.4 Long term (current) use of insulin
CPT/HCPCS: 36415; 71045; 74177; 80053; 82948; 83735; 85025; 87040; 87641; 96372; 96374; 96375; 99212; 99285; A9270; G0463; J0696; J1836; Q9967

== ENCOUNTER 2024-02-19 01:38 | Emergency (ER) | payer MEDICARE, SELFPAY ==
--- NOTE | ~2024-02-19 | XR_ITS ---
Portable chest x-ray Comparison: 02/14/2024 Clinical History: PICC line verification Findings: Right-sided PICC line in place, tip in the SVC. Lungs are clear, without focal consolidati on or pleural effusion. Possible minimal central pulmonary venous congestive change. Cardiomediastin al silhouette is stable, status post median sternotomy with loop recorder. Bones and soft tissues are unremarkable. Impression: Right-sided PICC line in satisfactory position. Possible minimal central pulmonary venous congestive change. Stable cardiomegaly, with loop recorder. Reviewed, dictated and finalized at location [employer] Impression: Right-sided PICC line in satisfactory position. Possible minimal central pulmonary venous congestive change. Stable cardiomegaly, with loop recorder.
[2024-02-19 01:35] VITALS: BP 96/53; PULSE 53; RESP 18; TEMP 36.4; O2SAT 99
[2024-02-19 01:45] VITALS: RESP 28; O2SAT 100
--- NOTE | 2024-02-19 02:22 | PC.NURSE ---
Both this RN and ZI Eli attempted to flush pt PICC line with normal saline. One lumen flushes and pulls well. The other lumen did not. We tried asking pt to cough, tried changing position of arm, etc. No luck. MD Saunders notified.
--- NOTE | 2024-02-19 02:51 | PC.NURSE ---
pt arrived with double lumen picc line in right upper arm. one lumen (red top) aspirated blood and was able to flush. other lumen (purple top) was unsuccessful aspiration and flush. this rn recieved vorb to instill 2mg of cathflo (alteplase) per edp dr. rivera. this rn used closed loop communication to confirm medication/ route/ time/ patient/ dosage. cathflo administration of thrombolytic therapy policy provided by general warehouse worker and followed by x2 RNs.
[2024-02-19 03:54] VITALS: BP 116/53; PULSE 58; RESP 27; O2SAT 97
[2024-02-19] MEDS: ALTEPLASE 2 MG VIAL (CATHFLO) IV PUSH ×2 (04:15→06:15)
[2024-02-19] MEDS: WATER, STERILE FOR INJECTION 10 ML VIAL XX (04:20)
--- NOTE | 2024-02-19 04:47 | PC.NURSE ---
Addendum entered by More Sosa RN 02/19/24 04:51: Per protocols 120 minutes of dwell time is needed before additional 2mg. 2nd dose is not given at this time. EDP made aware. Original Note: After 30 minutes of dwell time for first attempt with 2 mg of cathflo was unsuccessful per protocols. The second attempt with 2 mg of solution was initiated.
--- NOTE | 2024-02-19 05:55 | ED_ITS ---
HPI - General Adult General Chief complaint: Unspecified Stated complaint: CLOGGED PICC LINE Time Seen by Provider: 02/19/24 01:39 History of Present Illness HPI narrative: 74-year-old male presenting to the emergency department from his residential facility for concerns of a clogged PICC line. Patient is on IV vancomycin for previous bacteremia and infective endocarditis and has daily infusions up until the of this month. Patient herself has no acute complaints and states he feels fine. He denies any chest pain, shortness a breath, nausea, vomiting. He states that he has been receiving vancomycin but today the PICC line stopped working for 1 of the ports. He was sent in for evaluation of the PICC line. Denies any pain in the arm, paresthesias, fever chills or any other concerns. States he has been feeling improved since his recent hospital visit and discharge and has no other concerns at this time. Related Data Home Medications ?Medication ?Instructions ?Recorded ?Confirmed ?Last Taken ?Type multivitamin with minerals 1 tablet PO DAILY 12/20/23 02/15/24 Unknown History nystatin 100,000 unit/mL oral 100,000 unit PO QID 12/20/23 02/15/24 Unknown History suspension warfarin 2 mg tablet 1 mg PO DAILY 12/20/23 02/15/24 Unknown History Lactobacillus acidophilus 1 cap PO BID 02/15/24 02/15/24 Unknown History aspirin 81 mg chewable tablet 81 mg PO DAILY 02/15/24 02/15/24 Unknown History (Lynnette Chewable Low Dose Aspirin) dabigatran etexilate 150 mg capsule 150 mg PO BID 02/15/24 02/15/24 Unknown History fenofibrate nanocrystallized 145 mg PO HS 02/15/24 02/15/24 Unknown History furosemide 40 mg tablet 40 mg PO DAILY 02/15/24 02/15/24 Unknown History metoprolol tartrate 25 mg tablet 6.25 mg PO Q6H 02/15/24 02/15/24 Unknown History pantoprazole 40 mg granules 40 mg feeding tube DAILY 02/15/24 02/15/24 Unknown History delayed-release for susp in packet polyethylene glycol 3350 17 17 g feeding tube BID 02/15/24 02/15/24 Unknown History gram/dose oral powder potassium chloride 20 mEq oral 20 meq PO DAILY 02/15/24 02/15/24 Unknown History packet (Klor-Con) rosuvastatin 10 mg tablet 10 mg feeding tube HS 02/15/24 02/15/24 Unknown History saxagliptin 5 mg tablet 5 mg PO DAILY 02/15/24 02/15/24 Unknown History sodium chloride 0.9 % 10 ml IV DAILY 02/15/24 02/15/24 Unknown History spironolactone 25 mg tablet 25 mg PO DAILY 02/15/24 02/15/24 Unknown History vancomycin 1.25 gram intravenous 1.25 g IV Q24H 02/15/24 02/15/24 Unknown History solution Allergies Allergy/AdvReac Type Severity Reaction Status Date / Time morphine AdvReac Agitated Verified 02/15/24 07:22 Review of Systems Review of Systems: As reviewed above in [facility] Past Medical History Medical History (Updated 02/19/24 @ 06:16 by Andi Saunders MD) Anticoagulant long-term use Candidiasis of other urogenital sites Anemia Diabetic peripheral neuropathy Rhabdomyolysis Urge urinary incontinence Chronic venous stasis dermatitis of both lower extremities Sick sinus syndrome (04/18/17) SAKSHI on CPAP (03/2019) CPAP of 7 Mixed hyperlipidemia (04/20/17) Essential hypertension Atrial fibrillation (04/20/17) On chronic anticoagulation with warfarin Hemochromatosis However patient's iron studies demonstrate a low iron level (12/2020), normal transferrin (in 2019) and normal hemoglobin and now actually has what appears bandemia chronic disease Obesity (BMI 35.0-39.9 without comorbidity) Pacemaker CAD (coronary artery disease), autologous vein bypass graft Arthritis Diabetes mellitus Erectile dysfunction Peripheral artery disease Surgical History Surgical History Pacemaker (04/2015) Single-chamber MRI compatible pacemaker Hx of CABG (~2004) Four-vessel CABG H/O right heart catheterization Family History Family History Father Acute myocardial infarction Son Family history of obesity Mother Uterine cancer Social History Social History Social History: He has been since 1997 and he he lives in his own home. He ambulates with a walker. His son comes and checks on him daily, and will be his surrogate Diego rosenthal. He is retired from the [employer]. He wishes to be a full code at this time. Smoking packs per day: 2.5 Smoking cigarettes per day: 50.0 Years smoked: 50 Smoking pack-years: 125.00 Smoking status: Former smoker Tobacco type: cigars Smokeless tobacco user: chewing tobacco Second hand tobacco smoke exposure: Yes Alcohol intake: unknown Substance use: unknown Substance use type: marijuana Do You Feel Safe in your Home?: Yes Lack of Transportation: No Lack of Food: Never True Current Housing: I Have Housing Concerned About Future Housing: No Difficulty Paying Gas/Electric Bills: No Difficulty Paying for Meds: No Currently Unemployed: No Education: Don't Know Difficulty w/ Childcare or Family Care: No Living arrangements: alone Occupation/Education: retired 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 Mucous membranes moist. NECK: Supple. CHEST: [Clear to auscultation. No respiratory distress.] HEART: [Regular rate and rhythm]. No murmur heard. [Normal peripheral pulses.] ABDOMEN: [Soft, nondistended], [nontender], [No rigidity or guarding] EXTREMITIES: Normal range of motion. [No edema.] The right upper extremity has a PICC line that flushes through 1 of the 2 catheter site, no tenderness with palpation proximally, no swelling the limb. Full range of motion. No overlying skin changes or concerns. SKIN: Warm, dry, no rash. NEURO: [No focal deficits]. Alert and oriented [x3.] PSYCH: [Normal mood and affect.] Course Vital Signs Vital signs: Vital Signs Temperature 36.4 C 02/19/24 01:35 Pulse Rate 53 L 02/19/24 01:35 Respiratory Rate 18 02/19/24 01:35 Blood Pressure 96/53 L 02/19/24 01:35 Pulse Oximetry 99 02/19/24 01:35 Oxygen Delivery Room Air 02/19/24 01:35 Temperature 36.4 C 02/19/24 01:35 Pulse Rate 58 L 02/19/24 03:54 Respiratory Rate 27 H 02/19/24 03:54 Blood Pressure 116/53 L 02/19/24 03:54 Pulse Oximetry 97 02/19/24 03:54 Oxygen Delivery Room Air 02/19/24 01:35 Medical Decision Making [facility] Narrative Medical decision making narrative: 74-year-old male presenting to the emergency department for evaluation of her right upper extremity PICC line that has. Flushing through 1 of the 2 ports. Patient self has no acute complaints and states he has been feeling well since his recent discharge. He is getting IV vancomycin once daily through the PICC line and he has no other 5 days of therapy until it is completed in the PICC line removed. Patient herself has no swelling that limb, no discoloration or peripheral neuropathy. Overall appears well, has normal vital signs without any significant blood pressure concerns, tachycardia, hypoxia, fever or tachypnea. Will attempt to aspirate and flush to both ports on the PICC line. Did attempt to use alteplase intra cath for the PICC line. Ultimately 1 of the 2 lumens flushes and draws easily while the other appears to be clogged. Given that he is almost completed his entire course of antibiotics and still has good access through an available port and does not need any additional ports for access or fluid or medication administrations based on shelter report he can safely be discharged back to his facility for continued therapy with follow- up for PICC line removal. Medical Records Medical records reviewed: Yes I reviewed the external patient's medical records. Vital Signs Vital Signs: Vital Signs Temperature 36.4 C 02/19/24 01:35 Pulse Rate 53 L 02/19/24 01:35 Respiratory Rate 18 02/19/24 01:35 Blood Pressure 96/53 L 02/19/24 01:35 Pulse Oximetry 99 02/19/24 01:35 Oxygen Delivery Room Air 02/19/24 01:35 Temperature 36.4 C 02/19/24 01:35 Pulse Rate 58 L 02/19/24 03:54 Respiratory Rate 27 H 02/19/24 03:54 Blood Pressure 116/53 L 12/15/24 03:54 Pulse Oximetry 97 02/19/24 03:54 Oxygen Delivery Room Air 02/19/24 01:35 Lab Data Lab results reviewed: Yes I reviewed the patient's lab results. Imaging Data Attestation: I personally reviewed and interpreted this imaging study as follows: My impression: X-ray shows PICC line terminates within the superior vena cava/right atrial junction. Discharge Plan Discharge Clinical Impression: Occluded PICC line, PIC line (peripherally inserted central catheter) flush Patient Disposition: [facility] Living Condition: Stable Instructions: Antibiotic Form Additional Instructions: 1 of the lumens in your PICC line fully functions and is able to draw and administer medications, x-ray confirms placement the PICC line without any kinking or any dislodgement. Continue using the PICC line for the remainder of your antibiotic course for the next several days prior to follow-up interval. Return with any new or worsening concerns such as inability to use the other lumen. Patient Language: Luxembourgish Prescriptions: No Action amlodipine [Norvasc] 5 mg Tablet 5 mg PO DAILY Qty: 30 0RF warfarin 2 mg tablet 1 mg PO DAILY Rx Instructions: tuesday, tuesday, tuesday, and tuesday multivitamin with minerals Tablet 1 tablet PO DAILY nystatin 100,000 unit/mL Suspension 100,000 unit PO QID Rx Instructions: Swish and spit insulin aspart U-100 [Novolog U-100 Insulin aspart] 100 unit/mL Solution 4 - 8 unit subcut ACHS 0RF Protocol: Insulin Corrective High-Dose Condition: glucose < 70 mg/dl Dose/Route: Follow hypoglycemia order Condition: glucose 70-200 mg/dl Dose/Route: No additional insulin Condition: glucose 201-250 mg/dl Dose/Route: 4 units sub-Q Condition: glucose 251-300 mg/dl Dose/Route: 5 units sub-Q Condition: glucose 301-350 mg/dl Dose/Route: 6 units sub-Q Condition: glucose 351-400 mg/dl Dose/Route: 8 units sub-Q Condition: glucose > 400 mg/dl Dose/Route: Call Lactobacillus acidophilus [Acidophilus] 1 cap PO BID aspirin [Lynnette Chewable Aspirin] 81 mg tablet,chewable 81 mg PO DAILY dabigatran etexilate 150 mg capsule 150 mg PO BID fenofibrate nanocrystallized tablet 145 mg PO HS furosemide 40 mg tablet 40 mg PO DAILY potassium chloride [Klor-Con] 20 mEq packet 20 meq PO DAILY metoprolol tartrate 25 mg tablet 6.25 mg PO Q6H polyethylene glycol 3350 17 gram/dose powder 17 g feeding tube BID pantoprazole [address] for susp in packet 40 mg feeding tube DAILY rosuvastatin 10 mg tablet 10 mg feeding tube HS saxagliptin 5 mg tablet 5 mg PO DAILY sodium chloride 0.9 % Solution 10 ml IV DAILY Rx Instructions: flush picc before and after ABT dose spironolactone 25 mg tablet 25 mg PO DAILY vancomycin 1.25 gram recon soln 1.25 g IV Q24H Patient Comments: End date of 02/24/24 amoxicillin-pot clavulanate 875-125 mg tablet 1 tablet PO Q12H 4 Days Qty: 8 0RF doxycycline hyclate 100 mg tablet 100 mg PO BID 4 Days Qty: 8 0RF insulin aspart U-100 [Novolog U-100 Insulin aspart] 100 unit/mL Solution 12 unit subcut Q6H Qty: 10 0RF insulin aspart U-100 [Novolog U-100 Insulin aspart] 100 unit/mL Solution 4 - 8 unit subcut Q6H Qty: 10 0RF Protocol: Insulin Corrective High-Dose Condition: glucose < 70 mg/dl Dose/Route: Follow hypoglycemia order Condition: glucose 70-200 mg/dl Dose/Route: No additional insulin Condition: glucose 201-250 mg/dl Dose/Route: 4 units sub-Q Condition: glucose 251-300 mg/dl Dose/Route: 5 units sub-Q Condition: glucose 301-350 mg/dl Dose/Route: 6 units sub-Q Condition: glucose 351-400 mg/dl Dose/Route: 8 units sub-Q Condition: glucose > 400 mg/dl Dose/Route: Call Rx Instructions: BS 201-250= 4 units, 251-300= 5 units, 301-350= 6 units, 351-400= 8 units, above 400 call Follow-up/Referrals: Dominic Recinos MD [Primary Care Provider] - Stand Alone Forms: Shelter Discharge Time of Disposition: 06:16
--- NOTE | 2024-02-19 05:58 | PC.NURSE ---
RN spoke with Antonia from [facility] to give update on pt.
--- NOTE | 2024-02-19 06:17 | PC.NURSE ---
After 120 minutes dwell time, 2nd attempt was unsuccessful as well. Per protocol another 2mg of cathflo was initiated EDP made aware.
[2024-02-19 06:20] VITALS: BP 118/56; PULSE 61; RESP 20; O2SAT 100
[2024-02-19] MEDS: CENTRAL LINE FLUSH 10 ML IV PUSH (06:50)
--- NOTE | 2024-02-19 06:51 | PC.NURSE ---
After second administration of Cathflo, this RN was able to aspirate 10 ml of blood and flush IV appropriately per protocol. EDP made aware. Caps replaced at this time.
[2024-02-19 07:26] VITALS: BP 118/58; PULSE 61; RESP 21; O2SAT 100
[2024-02-19 08:55] VITALS: BP 125/54; PULSE 60; RESP 20; O2SAT 100
--- OUTSIDE RECORDS SUMMARY | 2024-02-23 13:07 | XMS_ITS | Encounter Summary ---
Author Organization [facility] Address [facility]6 [facility]. [place], [place] [address] [place] [address] Care Team Providers Care Ambulatory Technologist Name Role Phone Dominic Recinos MD Primary Care Provider [phone] Bonilla Anton MD Unavailable Celso Haro DO Unavailable Evan Olivarez DPM Unavailable [phone] Encounter Details Date Type Department Care Team (Latest Contact Info) Description 06/21/2022 Travel Social History Tobacco Use Types Packs/Day Years Used Date Smoking Tobacco: Never Smokeless Tobacco: Current Alcohol Use Standard Drinks/Week Comments Yes 0 (1 standard drink = 0.6 oz pur e alcohol) Sex and Gender Information Value Date Recorded Sex Assigned at Not on file Legal Sex Male 8:11 PM CDT Gender Identity Not on file Sexual Orientation Not on file COVID-19 Exposure Response Date Recorded In the last 10 days, have yo u been in contact with someone who was confirmed or suspected to have Coronavirus/COVID-19? No / Unsure 06/21/2022 7:27 AM CDT documented as of this encounter Plan of Treatment Not on file documented as of this encounter Visit Diagnoses Not on filedocumented in this encounter Care Teams Ambulatory Technologist Relationship Specialty Start Date End Date Dominic Recinos MD [address] [place] [address] PCP - General INTERNAL MEDICINE 09/18/21 Bonilla Anton MD [address] [place] [address] Consulting Physician INTERNAL MEDICINE 10/16/21 Celso Haro DO [address] [place] [address] INTERNAL MEDICINE 10/16/21 Evan Olivarez DPM [address] [place] [address] Consulting Physician PODIATRY/SURGERY 12/07/21 12/07/22 documented as of this encounter
--- OUTSIDE RECORDS SUMMARY | 2024-02-23 13:07 | XMS_ITS | Encounter Summary ---
Author Organization [facility] Address [facility]6 [facility]. [place], [place] [address] [place] [address] Care Team Providers Care Ear Pull Machine Operator Name Role Phone Dominic Recinos MD Primary Care Provider [phone] Bonilla Anton MD Unavailable Celso Haro DO Unavailable Evan Olivarez DPM Unavailable [phone] Encounter Details Date Type Department Care Team (Latest Contact Info) Description 06/14/2022 Travel Social History Tobacco Use Types Packs/Day [...] suspected to have Coronavirus/COVID-19? No / Unsure 06/14/2022 7:36 AM CDT documented as of this encounter Plan of Treatment Not on file documented as of this encounter Visit Diagnoses Not on filedocumented in this encounter Care Teams Ear Pull Machine Operator Relationship Specialty Start Date End Date Dominic Recinos MD [address] [place] [address] PCP - General INTERNAL MEDICINE 09/18/21 Bonilla Anton MD [address] [place] [address] Consulting Physician INTERNAL MEDICINE 10/16/21 Celso Haro DO [address] [place] [address] INTERNAL MEDICINE 10/16/21 Evan Olivarez DPM [address] [place] [address] Consulting Physician PODIATRY/SURGERY 12/07/21 12/07/22 documented as of this encounter
--- OUTSIDE RECORDS SUMMARY | 2024-02-23 13:07 | XMS_ITS | Patient Health Summary ---
Author Organization [facility] Address [address] [facility] [place] [address] Care Team Providers Care Gate Watchman Name Role Phone Unavailable Primary Care Provider Unavailabl e Note from [facility],non-owned Affiliates and Associated Physician Practices is amultiple site organization consisting of ambulatory clinics and hospital sitesin [place], [place], [place] and [place]. This disclosure is being madepursuant to the Care Everywhere program and may not contain all information available regarding this patient. Last updated 17.[facility] [place] Allergies * Morphine(Other) -Low Criticality Active Problems Problem Noted Date Diagnosed Date Activity, other specified 12/16/2015 Social History Tobacco Use Types Packs/Day Years Used Date Smoking Tobacco: Never Assessed Sex and Gender Information Value Date Recorded Sex Assigned at Not on file Gender Identity Not on file Sexual Orientation Not on file Procedures * VANCOMYCIN LEVEL TROUGH(Performed 02/07/2024) Performed for Encounter for therapeutic drug level monitoring * LAB MICROBIOLOGY - HPF HISTORICAL(Performed 07/18/2008) Results * VANCOMYCIN LEVEL TROUGH (02/07/2024 10:40 AM REFRIGERATING ENGINEER) Vancomycin Trough 19.9 10.0 - 20.0 ug/mL 02/07/2024 2:53 PM REFRIGERATING ENGINEER [facility] Blood BLOOD SPECIMEN / Unknown Venipuncture / Unknown 02/07/2024 10:40 AM REFRIGERATING ENGINEER 02/07/2024 2:24 PM REFRIGERATING ENGINEER John Christensen MD LAB - CHEMISTRY CY ARSHAD [facility] [address] [place] [address] * LAB MICROBIOLOGY - HPF HISTORICAL (07/18/2008 5:01 AM CDT) 07/18/2008 5:01 AM CDT Narrative [facility] - 07/18/2008 5:01 AM CDT Yoav Mixon DO LAB - MICROBIOLOGY O RDERABLES [facility]
--- OUTSIDE RECORDS SUMMARY | 2024-02-23 13:07 | XMS_ITS | Clinical Summary ---
Author Organization [facility] Address [facility]6 [facility]. [place], [place] [address] [place] [address] Care Team Providers Care Mangle Catcher Name Role Phone Dominic Recinos MD Primary Care Provider [phone] Bonilla Anton MD Unavailable Celso Haro DO Unavailable Allergies Active Allergy Reactions Criticality Noted Date Comments Morphine Unknown,Hallucinatio ns,Other (see comment) High 11/15/2011 Not specified Medications diazePAM (VALIUM) 10 MG tablet Take 10 mg by mouth 3 (three) times a day. Active lisinopril (PRINIVIL) 20 MG tablet Take 20 mg by mouth daily. Active oxybutynin (DITROPAN) 5 MG tablet Take 5 mg by mouth 2 (two) times daily. Active rosuvastatin (CRESTOR) 10 MG tablet Take 10 mg by mouth daily. Active gabapentin (NEURONTIN) 300 MG capsule Take 300 mg by mouth 3 (three) times daily. Active acetaminophen- codeine (TYLENOL #3) 300-30 MG tablet Take 1 tablet by mouth every 8 (eight) hours as needed for Pain. Active warfarin (COUMADIN) 1 MG tabletIndicati ons:take along with 5 mg tablet to make 5.5 mg daily Take 0.5 mg by mouth daily. Indications: take along with 5 mg tablet to make 5.5 mg daily Active warfarin (COUMADIN) 2 MG tabletIndicati ons:take 2 and 1/2 tablets by mouth on Tuesday and Tuesday and 2 tablets every other day of the week Take 2 mg by mouth daily. Indications: take 2 and 1/2 tablets by mouth on Tuesday and Tuesday and 2 tablets every other day of the week Active glyBURIDE-metF ORMIN (GLUCOVANCE) 5-500 MG tablet Take 1 tablet by mouth 2 (two) times daily with meals. Active hydroCHLOROthi azide (HYDRODIURIL) 25 MG tablet Take 25 mg by mouth every morning. Active insulin lispro, 1 Unit Dial, (HUMALOG) 100 UNIT/ML injection (PEN) INJECT 10 UNITS SUBCUTANEOUSLY WITH BREAKFAST, 20 UNITS WITH LUNCH, AND 30 UNITS WITH SUPPER 2 Active Blood Glucose Monitoring Suppl (ONE TOUCH ULTRA 2) w/Device Kit 1 strip by Does not apply route 2 (two) times daily. 2 Active ONETOUCH ULTRA test strip 2 Active LANTUS SOLOSTAR 100 UNIT/ML injection (PEN) INJECT 100 UNITS SUBCUTANEOUSLY DAILY WITH SUPPER 2 Active BD ULTRA-FINE PEN NEEDLES 29G X 12.7MM Misc USE TO INJECT INSULIN FOUR TIMES DAILY 2 Active BD INSULIN SYRINGE U/F 31G X 5/16 0.5 ML Misc 2 (two) times daily. 2 Active ULTICARE INSULIN SYRINGE 29G X 1/2 1 ML Misc USE TO INJECT INSULIN TWICE A DAY 2 Active traMADol (ULTRAM) 50 MG tabletIndicati ons:Acute Pain < 7 Day Supply Take 1 tablet (50 mg total) by mouth every 4 (four) hours as needed for Pain. Indications: Acute Pain < 7 Day Supply 30 tablet 2 Active Active Problems Problem Noted Date Diagnosed Date Diabetic foot ulcer ([facility]) 02/08/2022 PAD (peripheral artery disease) 11/10/2021 Ulcer of left lower extremit y with fat layer exposed ([facility]) 11/10/2021 Hyperlipidemia, mixed 11/10/2021 Family History Medical History Relation Comments Coronary artery disease Father Diabetes Father Relation Status Comments Father Social History Tobacco Use Types Packs/Day Years Used Date Smoking Tobacco: Never Smokeless Tobacco: Current Alcohol Use Standard Drinks/Week Comments Yes 0 (1 standard drink = 0.6 oz pur e alcohol) Sex and Gender Information Value Date Recorded Sex Assigned at Not on file Legal Sex Male 8:11 PM CDT Gender Identity Not on file Sexual Orientation Not on file Last Filed Vital Signs Vital Sign Reading Time Taken Comments Blood Pressure 101/51 01/22/2022 2:22 PM ADVANCED QUALITY ENGINEER Pulse 62 01/22/2022 2:22 PM ADVANCED QUALITY ENGINEER Temperature 35.4 ??C (95.7 ??F) 01/22/2022 2:22 PM CS T Respiratory Rate 16 01/22/2022 2:22 PM ADVANCED QUALITY ENGINEER Oxygen Saturation 99% 01/22/2022 2:22 PM ADVANCED QUALITY ENGINEER Inhaled Oxygen Concentration - - Weight 108.9 kg (240 lb) 01/19/2022 1:01 PM ADVANCED QUALITY ENGINEER Height 172.7 cm (5' 8 ) 01/19/2022 1:01 PM ADVANCED QUALITY ENGINEER Body Mass Index 36.49 01/19/2022 1:01 PM ADVANCED QUALITY ENGINEER Plan of Treatment Health Maintenance Due Date Last Done Comments ASCVD LDL 1950 ASCVD Statin 1950 Colorectal Cancer Screening Colonoscopy (10 Years) 1950 Kidney Health Evaluation 1950 Lipid Panel 1950 Pneumococcal Vaccine: 65+ Years (1 of 2 - PCV) 01/03/1956 Diabetes: Retinopathy Eye Exam 01/03/1968 Hepatitis C 01/03/1968 DTaP, Tdap and Td Vaccines ( 1 - Tdap) 1969 Zoster Vaccines (1 of 2) 01/03/2000 RSV Immunization or 60+ Years (1 - 1-dose 60+ series) 2010 Annual Medicare Wellness Visit 2015 Hemoglobin A1C 04/14/2022 10/12/2021, 09/21/2021 COVID-19 Vaccine (1 - 2023-2 5 season) 2023 Influenza Adult (#1) 2023 Meningococcal Vaccine Aged Out No bert frank eligible based on patient's age to complete this topic RSV Immunizations Under 20 Months Aged Out No longer eligible b ased on patient's age to complete this topic Medical Devices Implanted Type Area Tool Shaper Setup Operator Device Identifier Shelf Expiration Date Model / Serial / Lot Rv Lead-05/06/2015 Implanted:Qty: 1 on 05/06/2015 by Tammy Grijalva MD Lead Implant 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[employer] CARDIAC RHYTHM AND HEART FAILURE - DIV [id number] / [id number] / Pacemaker-2015 Implanted:Qty: 1 on 05/06/2015 by Tammy Grijalva MD Pacemaker Chest [employer] CARDIAC RHYTHM AND HEART FAILURE - DIV [id number] / [id number] / Description:MRI Conditional under following conditions: Static magnetic field of 1.5 T or 3 T, Max spatial gradient field of 2000 Gauss/cm or less, Max slew rate 2000 T/m/s, 1.5 T whole body CIRO of 2 W /kg or less in Normal operating mode , Head CIRO 3.2 W/kg or less, 3T B1+KAYDEN must be 2.8 mT or less for isocenter inferior to C7, Scans can be performed without B1+KAYDEN restriction at 3T when isocenter is at or superior to C7 (4W/kg or less whole body) Procedures Procedure Name Priority Date/Time Associated Diagnosis Comments HEMOGLOBIN, GLYCOSYLATED Routine 10/12/2021 11:22 AM CDT Diabetic ulcer of left heel associated with type 2 diabetes mellitus, with necrosis of muscle ([facility]/HCC) from Last 3 Months or Most Recently Relevant to Health Maintenance Results * (ABNORMAL) HEMOGLOBIN, GLYCOSYLATED (10/12/2021 11:22 AM CDT) HGB A1C 8.8(H) <5.7 % 10/12/2021 11:59 AM CDT [facility] Comment: 5.7 TO 6.4% INCREASED RISK OF DIABETES > OR = 6.5% CONSISTENT WITH DIABETES PER ADA GUIDELINES ESTIMATED AVG GLUCOSE 206(H) 70 - 140 MG/DL 10/12/2021 11:59 AM CDT [facility] 10/12/2021 11:2 2 AM CDT [facility] Final Result [facility] [address] [place] [address], from Last 3 Months or Most Recently Relevant to Health Maintenance Insurance [facility] Care Teams Mangle Catcher Relationship Specialty Start Date End Date Dominic Recinos MD [address] [place] [address] PCP - General INTERNAL MEDICINE 09/18/21 Bonilla Anton MD [address] [place] [address] Consulting Physician INTERNAL MEDICINE 10/16/21 Celso Haro DO [address] [facility] [address] [place] [address] INTERNAL MEDICINE 10/16/21
--- OUTSIDE RECORDS SUMMARY | 2024-02-23 13:07 | XMS_ITS | Encounter Summary ---
Author Organization [facility] Address [facility]6 [facility]. [place], [place] [address] [place] [address] Care Team Providers Care Attending Pathologist Name Role Phone Dominic Recinos MD Primary Care Provider [phone] Bonilla Anton MD Unavailable Celso Haro DO Unavailable Evan Olivarez DPM Unavailable [phone] Encounter Details Date Type Department Care Team (Latest Contact Info) Description 05/31/2022 Travel Social History Tobacco Use Types Packs/Day [...] suspected to have Coronavirus/COVID-19? No / Unsure 05/31/2022 7:39 AM CDT documented as of this encounter Plan of Treatment Not on file documented as of this encounter Visit Diagnoses Not on filedocumented in this encounter Care Teams Attending Pathologist Relationship Specialty Start Date End Date Dominic Recinos MD [address] [place] [address] PCP - General INTERNAL MEDICINE 09/18/21 Bonilla Anton MD [address] [place] [address] Consulting Physician INTERNAL MEDICINE 10/16/21 Celso Haro DO [address] [place] [address] INTERNAL MEDICINE 10/16/21 Evan Olivarez DPM [address] [place] [address] Consulting Physician PODIATRY/SURGERY 12/07/21 12/07/22 documented as of this encounter
--- OUTSIDE RECORDS SUMMARY | 2024-02-23 13:07 | XMS_ITS | Clinical Summary ---
Author Organization [facility] Address [address] [place] [address] Care Team Providers Care Data Security Analyst Name Role Phone Unavailable Primary Care Provider Unavailabl e Source Comments [facility],non-owned Affiliates and Associated Physician Practices is amultiple site organization consisting of ambulatory clinics and hospital sitesin [place], [place], [place] and [place]. This disclosure is being madepursuant to the Care Everywhere program and may not contain all information available regarding this patient. 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 Encounters Date Type Department Care Team Description 02/07/2024 Lab Requisition [facility] [address] [place] [address] John Christensen MD Encounter for therapeutic drug level monitoring from Last 3 Months Social History Tobacco Use Types Packs/Day Years Used Date Smoking Tobacco: Never Assessed Sex and Gender Information Value Date Recorded Sex Assigned at Not on file Gender Identity Not on file Sexual Orientation Not on file Plan of Treatment Health Maintenance Due Date Last Done Comments COLOGUARD (AGES 45-75) - COL ON CA SCREENING 1950 COLON MONITORING 1950 COLONOSCOPY - COLON CA SCREENING 1950 CT COLONOGRAPHY - COLON CA SCREENING 1950 Colorectal Cancer Screening 1950 FIT - COLON CA SCREENING 1950 FLEX SIG - COLON CA SCREENING 1950 LIPID TESTING 1950 HEPATITIS C SCREENING 12/29/1967 DTAP/TDAP/TD VACCINES (1 - Tdap) 1969 ZOSTER VACCINE (1 of 2) 01/03/2000 PNEUMOCOCCAL VACCINE 65+ (1 of 1 - PCV) 2015 DEPRESSION SCREENING 03/07/2023 MEDICARE AWV ? CALENDAR YEAR 2023 COVID-19 VACCINE (1 - 2023-2 5 season) 2023 INFLUENZA VACCINE (#1) 2023 Respiratory Syncytial Virus (RSV) Vaccine Pt: or over 60 yrs (1 - 1-dose 75+ series) 2025 HEPATITIS B VACCINE Aged Out No longe r eligible based on patient's age to complete this topic HIB VACCINE Aged Out No longer eligi ble based on patient's age to complete this topic HPV VACCINE Aged Out No longer eligi ble based on patient's age to complete this topic MENINGOCOCCAL VACCINE Aged Out No bert frank eligible based on patient's age to complete this topic Procedures Procedure Name Priority Date/Time Associated Diagnosis Comments VANCOMYCIN LEVEL TROUGH STAT 02/07/2024 10:40 AM BULK SEALER Encounter for therapeutic drug level monitoring from Last 3 Months Results * VANCOMYCIN LEVEL TROUGH (02/07/2024 10:40 AM BULK SEALER) Vancomycin Trough 19.9 10.0 - 20.0 ug/mL 02/07/2024 2:53 PM BULK SEALER [facility] Blood BLOOD SPECIMEN / Unknown Venipuncture / Unknown 02/07/2024 10:40 AM BULK SEALER 02/07/2024 2:24 PM BULK SEALER John Christensen MD LAB - CHEMISTRY CY ARSHAD [facility] [address] [place] [address] from Last 3 Months
--- OUTSIDE RECORDS SUMMARY | 2024-02-23 13:07 | XMS_ITS | Encounter Summary ---
Author Organization [facility] Address [address] [place] [address]. [place] [address] [place] [address] Care Team Providers Care Experimental Outboard Motors Mechanic Name Role Phone Dominic Recinos MD Primary Care Provider [phone] Bonilla Anton MD Unavailable Celso Haro DO Unavailable Evan Olivarez DPM Unavailable [phone] Encounter Details Date Type Department Care Team (Late st Contact Info) Description 06/14/2022 7:38 AM CDT - 06/14/2022 11:59 PM CDT Hospital Encounter [facility] [address] [place] [address] Graciela Rodriguez, MERCHANDISE SHOPPER [address] [place] [address] Discharge Disposition: Home or Self Care (Routine Discharge) Social History Tobacco Use Types Packs/Day Years [...] AM CDT documented as of this encounter Medications at Time of Discharge acetaminophen-c odeine (TYLENOL #3) 300-30 MG tablet Take 1 tablet by mouth every 8 (eight) hours as needed for Pain. BD INSULIN SYRINGE U/F 31G X 5/16 0.5 ML Misc 2 (two) times daily. 06/30/2021 BD ULTRA-FINE PEN NEEDLES 29G X 12.7MM Misc USE TO INJECT INSULIN FOUR TIMES DAILY 10/27/2021 Blood Glucose Monitoring Suppl (ONE TOUCH ULTRA 2) w/Device Kit 1 strip by Does not apply route 2 (two) times daily. 09/08/2021 diazePAM (VALIUM) 10 MG tablet Take 10 mg by mouth 3 (three) times a day. gabapentin (NEURONTIN) 300 MG capsule Take 300 mg by mouth 3 (three) times daily. glyBURIDE-metFO RMIN (GLUCOVANCE) 5-500 MG tablet Take 1 tablet by mouth 2 (two) times daily with meals. hydroCHLOROthia zide (HYDRODIURIL) 25 MG tablet Take 25 mg by mouth every morning. insulin lispro, 1 Unit Dial, (HUMALOG) 100 UNIT/ML injection (PEN) INJECT 10 UNITS SUBCUTANEOUSLY WITH BREAKFAST, 20 UNITS WITH LUNCH, AND 30 UNITS WITH SUPPER 11/23/2021 LANTUS SOLOSTAR 100 UNIT/ML injection (PEN) INJECT 100 UNITS SUBCUTANEOUSLY DAILY WITH SUPPER 12/23/2021 lisinopril (PRINIVIL) 20 MG tablet Take 20 mg by mouth daily. ONETOUCH ULTRA test strip 12/12/2021 oxybutynin (DITROPAN) 5 MG tablet Take 5 mg by mouth 2 (two) times daily. rosuvastatin (CRESTOR) 10 MG tablet Take 10 mg by mouth daily. traMADol (ULTRAM) 50 MG tabletIndicatio ns:Acute Pain < 7 Day Supply Take 1 tablet (50 mg total) by mouth every 4 (four) hours as needed for Pain. Indications: Acute Pain < 7 Day Supply 30 tablet 01/22/2022 ULTICARE INSULIN SYRINGE 29G X 1/2 1 ML Misc USE TO INJECT INSULIN TWICE A DAY 06/17/2021 warfarin (COUMADIN) 1 MG tabletIndicatio ns:take along with 5 mg tablet to make 5.5 mg daily Take 0.5 mg by mouth daily. Indications: take along with 5 mg tablet to make 5.5 mg daily warfarin (COUMADIN) 2 MG tabletIndicatio ns:take 2 and 1/2 tablets by mouth on Tuesday and Tuesday and 2 tablets every other day of the week Take 2 mg by mouth daily. Indications: take 2 and 1/2 tablets by mouth on Tuesday and Tuesday and 2 tablets every other day of the week documented as of this encounter Progress Notes * Nieves Lowry RN - 06/14/2022 8:00 AM CDTEncounter addended by: Nieves Lowry RN on: 06/14/2022 9:38 AM Actions taken: MAR administration accepted documented in this encounter Plan of Treatment Not on file documented as of this encounter Visit Diagnoses Diagnosis Diabetic ulcer of left heel associated with type 2 diabetes mellitus, 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 (CMS/HCC HHS/HCC)- Primary documented in this encounter Administered Medications Inactive Administered Medications - up to 3 most recent administrations Medication Order MAR Action Action Date Dose Rate Site lidocaine (XYLOCAINE) 2 % jelly 5 mL 5 mL, Topical, Once, 1 dose, On Tue06/14/22 at 0915Indications:Diabetic ulcer of left heel associated with type 2 diabetes mellitus, 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 (CMS/HCC HHS/HCC) Given 06/14/2022 8:00 AM CDT 5 mLs documented in this encounter Care Teams Experimental Outboard Motors Mechanic Relationship Specialty Start Date End Date Dominic Recinos MD [address] [place] [address] PCP - General INTERNAL MEDICINE 09/18/21 Bonilla Anton MD [address] [place] [address] Consulting Physician INTERNAL MEDICINE 10/16/21 Celso Haro DO [address] [facility] [address] [place] [address] INTERNAL MEDICINE 10/16/21 Evan Olivarez DPM [address] [place] [address] Consulting Physician PODIATRY/SURGERY 12/07/21 12/07/22 documented as of this encounter
--- OUTSIDE RECORDS SUMMARY | 2024-02-23 13:07 | XMS_ITS | Encounter Summary ---
Author Organization [facility] Address [address] [place] [address]. [place] [address] [place] [address] Care Team Providers Care Sheet Rock Applier Name Role Phone Dominic Recinos MD Primary Care Provider [phone] Bonilla Anton MD Unavailable Celso Haro DO Unavailable Evan Olivarez DPM Unavailable [phone] Reason for Visit * Reason Onset Date Comments Called To Cancel Office Appt. 06/07/2022 Encounter Details Date Type Department Care Team (Late st Contact Info) Description [facility]/07[facility]2022 [facility] [address] [place] [address] Bonilla Anton MD [address] [place] [address] Called To Cancel Office Appt. Social History Tobacco Use Types Packs/Day Years [...] AM CDT documented as of this encounter Progress Notes * Senait Manriquez - 06/07/2022 9:25 AM CDT [facility] MAIL DATE/TIME:06/07 @ 8:58am CALLER: Diego Broderick #: [phone] PROVIDER/NEW PT: Desean REASON FOR CALL: needs to cancel tomorrow's appt as he is currently hospitalized. Son will return call to reschedule. REQUEST HANDLED AND HOW: cancelled appt IF NOT HANDLED, ENCOUNTER NOTE SENT TO: n/a documented in this encounter Plan of Treatment Not on file documented as of this encounter Visit Diagnoses Not on filedocumented in this encounter Care Teams Sheet Rock Applier Relationship Specialty Start Date End Date Dominic Recinos MD [address] [place] [address] PCP - General INTERNAL MEDICINE 09/18/21 Bonilla Anton MD [address] [place] [address] Consulting Physician INTERNAL MEDICINE 10/16/21 Celso Haro DO [address] [place] [address] INTERNAL MEDICINE 10/16/21 Evan Olivarez DPM [address] [address] Consulting Physician PODIATRY/SURGERY 12/07/21 12/07/22 documented as of this encounter
--- OUTSIDE RECORDS SUMMARY | 2024-02-23 13:07 | XMS_ITS | Encounter Summary ---
Author Organization [facility] Address [address] [place] [address] Care Team Providers Care Linux Network Engineer Name Role Phone Unavailable Primary Care Provider Unavailabl e Encounter Details Date Type Department Care Team (Late st Contact Info) Description 01/12/2012 Hospital Outpatient Visit [facility] [address] [facility], [place] [address] Yoav Mixon, DO [address] [facility] [address] [place] [address] Social History Tobacco Use Types Packs/Day Years Used Date Smoking Tobacco: Never Assessed Sex and Gender Information Value Date Recorded Sex Assigned at Not on file Gender Identity Not on file Sexual Orientation Not on file documented as of this encounter Plan of Treatment Not on file documented as of this encounter Visit Diagnoses Not on filedocumented in this encounter
--- OUTSIDE RECORDS SUMMARY | 2024-02-23 13:07 | XMS_ITS | Referral Summary ---
Author Organization [facility] Address [address] [facility] [place] [address] Care Team Providers Care Hospital Chief Financial Officer Name Role Phone Unavailable Primary Care Provider Unavailabl e Source Comments [facility],non-owned Affiliates and Associated Physician Practices is amultiple site organization consisting of ambulatory clinics and hospital sitesin [place], [place], [place] and [place]. This disclosure is being madepursuant to the Care Everywhere program and may not contain all information available regarding this patient. 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 Social History Tobacco Use Types Packs/Day Years Used Date Smoking Tobacco: Never Assessed Sex and Gender Information Value Date Recorded Sex Assigned at Not on file Gender Identity Not on file Sexual Orientation Not on file Plan of Treatment Not on file Procedures Procedure Name Priority Date/Time Associated Diagnosis Comments VANCOMYCIN LEVEL TROUGH STAT 02/07/2024 10:40 AM WALLPAPER HANGER HELPER Encounter for therapeutic drug level monitoring from Last 3 Months Results * VANCOMYCIN LEVEL TROUGH (02/07/2024 10:40 AM WALLPAPER HANGER HELPER) Vancomycin Trough 19.9 10.0 - 20.0 ug/mL 02/07/2024 2:53 PM WALLPAPER HANGER HELPER [facility] Blood BLOOD SPECIMEN / Unknown Venipuncture / Unknown 02/07/2024 10:40 AM WALLPAPER HANGER HELPER 02/07/2024 2:24 PM WALLPAPER HANGER HELPER John Christensen MD LAB - CHEMISTRY CY ARSHAD [facility] [address] [place] [address] from Last 3 Months
--- OUTSIDE RECORDS SUMMARY | 2024-02-23 13:07 | XMS_ITS | Encounter Summary ---
Author Organization [facility] Address [facility]. [place], [place] [address] [place] [address] Care Team Providers Care Fastener Technologist Name Role Phone Dominic Recinos MD Primary Care Provider Bonilla Anton MD Unavailable Celso Haro DO Unavailable Evan Olivarez DPM Unavailable [phone] Encounter Details Date Type Department Care Team (Latest Contact Info) Description 07/05/2022 Travel Social History Tobacco Use Types Packs/Day [...] suspected to have Coronavirus/COVID-19? No / Unsure 07/05/2022 7:32 AM CDT documented as of this encounter Plan of Treatment Not on file documented as of this encounter Visit Diagnoses Not on filedocumented in this encounter Care Teams Fastener Technologist Relationship Specialty Start Date End Date Dominic Recinos MD [address] [place] [address] PCP - General INTERNAL MEDICINE 09/18/21 Bonilla Anton MD [address] [place] [address] Consulting Physician INTERNAL MEDICINE 10/16/21 Celso Haro DO [address] [place] [address] INTERNAL MEDICINE 10/16/21 Evan Olivarez DPM [address] [place] [address] Consulting Physician PODIATRY/SURGERY 12/07/21 12/07/22 documented as of this encounter
--- OUTSIDE RECORDS SUMMARY | 2024-02-23 13:07 | XMS_ITS | Encounter Summary ---
Author Organization [facility] Address [address] [facility] [place] [address] Care Team Providers Care Covering Machine Tender Name Role Phone Unavailable Primary Care Provider Unavailabl e Encounter Details Date Type Department Care Team (Late st Contact Info) Description 02/07/2024 Lab Requisition [facility] [address] [place] [address] John Christensen MD [address] [place] [address] Encounter for therapeutic drug level monitoring Social History Tobacco Use Types Packs/Day Years Used Date Smoking Tobacco: Never Assessed Sex and Gender Information Value Date Recorded Sex Assigned at Not on file Gender Identity Not on file Sexual Orientation Not on file documented as of this encounter Plan of Treatment Not on file documented as of this encounter Procedures Procedure Name Priority Date/Time Associated Diagnosis Comments VANCOMYCIN LEVEL TROUGH STAT 02/07/2024 10:40 AM TELESALES REPRESENTATIVE Encounter for therapeutic drug level monitoring documented in this encounter Results * VANCOMYCIN LEVEL TROUGH (02/07/2024 10:40 AM TELESALES REPRESENTATIVE) Vancomycin Trough 19.9 10.0 - 20.0 ug/mL 02/07/2024 2:53 PM TELESALES REPRESENTATIVE [facility] Blood BLOOD SPECIMEN / Unknown Venipuncture / Unknown 02/07/2024 10:40 AM TELESALES REPRESENTATIVE 02/07/2024 2:24 PM TELESALES REPRESENTATIVE John Christensen MD LAB - CHEMISTRY CY ARSHAD [facility] [address] [place], [place] [id number] documented in this encounter Visit Diagnoses Diagnosis Encounter for therapeutic drug level monitoring Encounter for therapeutic drug monitoring documented in this encounter
--- OUTSIDE RECORDS SUMMARY | 2024-02-23 13:07 | XMS_ITS | Encounter Summary ---
Author Organization [facility] Address [address] [place] [address]. [place] [address] [place] [address] Care Team Providers Care Frankfurter Inspector Name Role Phone Dominic Recinos MD Primary Care Provider [phone] Bonilla Anton MD Unavailable Celso Haro DO Unavailable Evan Olivarez DPM Unavailable [phone] Encounter Details Date Type Department Care Team (Late st Contact Info) Description 06/21/2022 7:44 AM CDT - 06/21/2022 11:59 PM CDT Hospital Encounter [facility] [address] [place] [address] Graciela Rodriguez, RIP TAILER [address] [place] [address] Discharge Disposition: Home or Self [...] Progress Notes * Nieves Lowry RN - 06/21/2022 8:00 AM CDTEncounter addended by: Nieves Lowry RN on: 06/21/2022 9:18 AM Actions taken: MAR administration accepted documented in this encounter Plan of Treatment Not on file documented as of this encounter Visit Diagnoses Diagnosis Diabetic ulcer of left heel associated with type 2 diabetes mellitus, limited to breakdown of skin ([facility] HHS/HCC)- Primary documented in this encounter Administered Medications Inactive Administered Medications - up to 3 most recent administrations Medication Order MAR Action Action Date Dose Rate Site lidocaine (XYLOCAINE) 2 % jelly 5 mL 5 mL, Topical, Once, 1 dose, On Tue06/21/22 at 0915Indications:Diabetic ulcer of left heel associated with type 2 diabetes mellitus, limited to breakdown of skin (CMS/HCC HHS/HCC) Given 06/21/2022 8:00 AM CDT 5 mLs documented in this encounter Care Teams Frankfurter Inspector Relationship Specialty Start Date End Date Dominic Recinos MD [address] [place] [address] PCP - General INTERNAL MEDICINE 09/18/21 Bonilla Anton MD [address] [place] [address] Consulting Physician INTERNAL MEDICINE 10/16/21 Celso Haro DO [address] [place] [address] INTERNAL MEDICINE 10/16/21 Evan Olivarez DPM [address] [place] [address] [place] [address] Consulting Physician PODIATRY/SURGERY 12/07/21 12/07/22 documented as of this encounter
--- OUTSIDE RECORDS SUMMARY | 2024-02-23 13:07 | XMS_ITS | Encounter Summary ---
Author Organization [facility] Address [address] [place] [address]. [place] [address] [place] [address] Care Team Providers Care Analyst Market Intelligence Name Role Phone Dominic Recinos MD Primary Care Provider [phone] Bonilla Anton MD Unavailable Celso Haro DO Unavailable Evan Olivarez DPM Unavailable [phone] Encounter Details Date Type Department Care Team (Late st Contact Info) Description 07/05/2022 7:35 AM CDT - 07/05/2022 11:59 PM CDT Hospital Encounter [facility] [address] [place] [address] Graciela Rodriguez, JOURNEYMAN PRESSMAN [address] [place] [address] Discharge Disposition: Home or Self [...] the week documented as of this encounter Plan of Treatment Not on file documented as of this encounter Visit Diagnoses Not on filedocumented in this encounter Care Teams Analyst Market Intelligence Relationship Specialty Start Date End Date Dominic Recinos MD [address] [place] [address] PCP - General INTERNAL MEDICINE 09/18/21 Bonilla Anton MD [address] [place] [address] Consulting Physician INTERNAL MEDICINE 10/16/21 Celso Haro DO [address] [place] [address] INTERNAL MEDICINE 10/16/21 Evan Olivarez DPM [address] [facility] [place] [address] Consulting Physician PODIATRY/SURGERY 12/07/21 12/07/22 documented as of this encounter
--- OUTSIDE RECORDS SUMMARY | 2024-02-23 13:08 | XMS_ITS | Encounter Summary ---
Author Organization [facility] Address [address] [place] [address]. [place], [place] [address] [place] [address] Care Team Providers Care Staff Climate Scientist Name Role Phone Dominic Recinos MD Primary Care Provider [phone] Bonilla Anton MD Unavailable Celso Haro DO Unavailable Evan Olivarez DPM Unavailable [phone] Encounter Details Date Type Department Care Team (Late st Contact Info) Description 04/26/2022 7:46 AM BRUSH CLEARING LABORER - 04/26/2022 11:59 PM BRUSH CLEARING LABORER Hospital Encounter [facility] [address] [place] [address] Graciela Rodriguez, TOOTH CUTTER CONTACT WHEEL [address] [place] [address] Discharge Disposition: Home or Self [...] suspected to have Coronavirus/COVID-19? No / Unsure 05/10/2022 7:46 AM BRUSH CLEARING LABORER documented as of this encounter Medications at [...] Progress Notes * Nieves Lowry RN - 04/26/2022 8:00 AM CSTEncounter addended by: Nieves Lowry RN on: 04/26/2022 9:13 AM Actions taken: MAR administration accepted H CLEARING LABORER documented in this encounter Plan of Treatment [...] 5 mL, Topical, Once, 1 dose, On Tue04/26/22 at 0845Indications:Diabetic ulcer of left heel associated with type 2 diabetes mellitus, 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 (CMS/HCC HHS/HCC) Given 04/26/2022 8:00 AM BRUSH CLEARING LABORER 5 mLs documented in this encounter Care Teams Staff Climate Scientist Relationship Specialty Start Date End Date Dominic Recinos MD [address] [place] [address] PCP - General INTERNAL MEDICINE 09/18/21 Bonilla Anton MD [address] [place] [address] Consulting Physician INTERNAL MEDICINE 10/16/21 Celso Haro DO [address] [place] [address] INTERNAL MEDICINE 10/16/21 Evan Olivarez DPM [facility] [place] [address] Consulting Physician PODIATRY/SURGERY 12/07/21 12/07/22 documented as of this encounter
--- OUTSIDE RECORDS SUMMARY | 2024-02-23 13:08 | XMS_ITS | Encounter Summary ---
Author Organization [facility] Address [facility] [place], [place] [address] [place] [address] Care Team Providers Care Professor Of Physical Education Name Role Phone Dominic Recinos MD Primary Care Provider [phone] Bonilla Anton MD Unavailable Celso Haro DO Unavailable Evan Olivarez DPM Unavailable [phone] Encounter Details Date Type Department Care Team (Latest Contact Info) Description 02/15/2022 Travel Social History Tobacco Use Types Packs/Day [...] suspected to have Coronavirus/COVID-19? No / Unsure 02/15/2022 7:43 AM OIL WELL GUN PERFORATOR OPERATOR documented as of this encounter Plan of Treatment Not on file documented as of this encounter Visit Diagnoses Not on filedocumented in this encounter Care Teams Professor Of Physical Education Relationship Specialty Start Date End Date Dominic Recinos MD [address] [place] [address] PCP - General INTERNAL MEDICINE 09/18/21 Bonilla Anton MD [address] [place] [address] Consulting Physician INTERNAL MEDICINE 10/16/21 Celso Haro DO [address] [place], [place] [id number] INTERNAL MEDICINE 10/16/21 Evan Olivarez DPM [address] [place] [address] Consulting Physician PODIATRY/SURGERY 12/07/21 12/07/22 documented as of this encounter
--- OUTSIDE RECORDS SUMMARY | 2024-02-23 13:08 | XMS_ITS | Encounter Summary ---
Author Organization [facility] Address [address] [place] [address]. [place] [address] [place] [address] Care Team Providers Care Control Panel Operator Crude Unit Name Role Phone Dominic Recinos MD Primary Care Provider [phone] Bonilla Anton MD Unavailable Celso Haro DO Unavailable Evan Olivarez DPM Unavailable [phone] Reason for Visit * Auth/Cert (Routine) Specialty Diagnoses / Procedures Referred By Contac t Referred To Contact Diagnoses NON-PRESSURE ULCER LEFT HEEL Procedures DEEP DEBRIDEMENT OF ULCER LEFT HEEL Evan Olivarez, DPM [address] [place] [address] Phone: tel: fax: Referral ID Status Reason Start Date Expiration Date Visits Re quested Visits Authorized [id number] 1 1 Encounter Details Date Type Department Care Team (Late st Contact Info) Description 01/22/2022 1:00 PM DICE TABLE OPERATOR - 01/22/2022 2:10 PM DICE TABLE OPERATOR [facility] [place] [address] [place] [address] Evan Olivarez, DPM [address] [place] [address] DEEP DEBRIDEMENT OF ULCER LEFT HEEL Surgery Details Date/Time Status Location OR Service Patient Class Case Class Case Type Trauma Case? 01/22/2022 1:00 PM Posted [facility] OR OR 2 Podiatry Short Stay/Outpati ent Surgery No Panel 1 Procedure LRB Anes Op Region Wound Class Comments DEEP DEBRIDEMENT OF ULCER LEFT HEEL Left Monitor Anesthesia Care Foot Clean Surgeon Surgeon Role Service Panel Rolens, Evan Rangel DPM Primary Podiatry 1 Case Notes PULSE LAVAGE WITH GENT. documented in this encounter Social History Tobacco Use Types Packs/Day Years [...] suspected to have Coronavirus/COVID-19? No / Unsure 01/22/2022 11:14 AM DICE TABLE OPERATOR documented as of this encounter Last Filed Vital Signs Vital Sign Reading Time Taken Comments Blood Pressure 107/56 01/22/2022 2:07 PM DICE TABLE OPERATOR Pulse 62 01/22/2022 2:07 PM DICE TABLE OPERATOR Temperature 35.6 ??C (96.1 ??F) 01/22/2022 2:07 PM CS T Respiratory Rate 16 01/22/2022 2:07 PM DICE TABLE OPERATOR Oxygen Saturation 99% 01/22/2022 2:07 PM DICE TABLE OPERATOR Inhaled Oxygen Concentration - - Weight 108.9 kg (240 lb) 01/19/2022 1:01 PM DICE TABLE OPERATOR Height 172.7 cm (5' 8 ) 01/19/2022 1:01 PM DICE TABLE OPERATOR Body Mass Index 36.49 01/19/2022 1:01 PM DICE TABLE OPERATOR documented in this encounter Discharge Instructions * Attachments The following attachments cannot be sent through Care Everywhere. * Surgical Wound Discharge Instructions ([place]) * Moderate Sedation in Adults Discharge Instructions ([place]) * Nerve Blocks ([place]) * Debridement of a Wound or Burn Discharge Instructions ([place]) documented in this encounter Medications at Time of Discharge [...] tablets every other day of the week POST OP SHOE, DME,Indications :Post-operative state Apply 1 Device topically once for 1 dose. 1 Device 01/22/2022 2 documented as of this encounter H&P Notes * Evan Olivarez DPM - 01/22/2022 12:54 PM CST HISTORY AND PHYSICAL INTERVAL NOTE: I have reviewed Diego Marquez . History & Physical which was performed within the past 30 days. After examining Diego Marquez , no change has occurred in the patient's conditionsince the H&P was completed. Informed Consent Discussion: Potential benefits, risks, and side effects of the patient's procedure/surgery; the likelihood of the patient achieving his or her goals; and any potential problems that might occur during recuperation were discussed with the patient/family/personal credit representative. Reasonable alternatives to the patient's proposed procedure/surgery including benefits, risks, and side effects related to the alternatives and the risks related to not receiving the proposed care were also discussed with the patient/family/personal credit representative. Questions were answered and the patient/family/personal credit representative verbalized understanding and desires to proceed. TABLE OPERATOR Source Note - [facility] - 01/22/2022 12:00 AM DICE TABLE OPERATOR documented in this encounter OR Notes * Brief Op Note - Evan Olivarez DPM - 01/22/2022 1:49 PM CST [facility] Brief Op HSHSDEEP DEBRIDEMENT OF ULCER LEFT HEEL Procedure Note Diego Marquez Sr. 01/22/2022 1300 Procedure(s) (LRB): DEEP DEBRIDEMENT OF ULCER LEFT HEEL (Left) Surgeon(s): Evan Olivarez DPM Reporting Developer: None Anesthesia: Choice Pre-Op Diagnosis: NON-PRESSURE ULCER LEFT HEEL down to bone Post-Op Diagnosis: Same Findings: As expected Estimated Blood Loss: less than 50 mL Specimens: None EVAN OLIVAREZ DPM Date: 01/22/2022 Time: 1:49 PM TABLE OPERATOR * Op Note - Evan Olivarez, DPM - 01/22/2022 12:00 AM CST PREOPERATIVE DIAGNOSIS: Ulcer to the level of bone, left heel. POSTOPERATIVE DIAGNOSIS: Ulcer to the level of bone, left heel. PROCEDURE PERFORMED: Incision and debridement down to the level of bone of ulcer of left heel. ANESTHESIA: MAC local. HEMOSTASIS: None. ESTIMATED BLOOD LOSS: Less than 50 mL. INJECTABLES: 15 mL of a 1:1 mixture of 2% Lidocaine plain and 0.25% Marcaine plain. MATERIALS: Half-inch iodoform packing tape. DESCRIPTION OF PROCEDURE: Under mild sedation, the patient was brought to the operating room and placed on the operating table in supine position. Following sedation, local anesthesia was obtained about the left ankle utilizing 15 mL of local anesthetic. The left foot was then scrubbed, prepped anddraped in the usual aseptic manner. Attention was then directed to the posterior medial aspect of the heel where a 4.5 x 1.6 cm ulcer was noted of a mixture of fibrotic, necrotic and granular tissue. Following initial superficial debridement of film covering superficial layer. Swabs for cultures were taken and sent to pathology. Next, utilizing a 15 blade, curette and rongeur, the wound was debrided of all nonviable tissue. It was noted that on medial aspect of the ulcer, it probed down to the bone of the calcaneus. Next, the pulse lavage was used to fully irrigate the wound, flushing all nonviable residue. Following this, the wound was noted to be remaining of a healthy granular bleeding wound base. The deficit was then packed with half-inch iodoform packing tape and dressed with bacitracin, gauze, ABD pads, and Webril. This was then reinforced with an Tony wrap. The patient seems to have tolerated both the procedure and anesthesia well. Following a brief period of postoperative monitoring, the patient will be discharged home with both written and oral postoperative instructions. The patient is to follow up at the office of the wound care center in [address] Olivarez' office in 4 days. The patient was given Dr. Olivarez' cell phone number to call should any problems arise. #[id number] /BRIANA TABLE OPERATOR documented in this encounter Plan of Treatment Not on file documented as of this encounter Procedures Procedure Name Priority Date/Time Associated Diagnosis Comments POCT GLUCOSE - BAGLEY DOCKED DEVICE Routine 01/22/2022 2:01 PM DICE TABLE OPERATOR CULTURE, TB/AFB W/ STAIN Routine 01/22/2022 1:25 PM DICE TABLE OPERATOR CULTURE, FUNGUS W/ STAIN Routine 01/22/2022 1:25 PM DICE TABLE OPERATOR HC BODY FLUID CULTURE Routine 01/22/2022 1:25 PM DICE TABLE OPERATOR CULTURE, ANAEROBIC Routine 01/22/2022 1: 25 PM DICE TABLE OPERATOR DEBRIDEMENT FOOT 01/22/2022 12:5 0 PM DICE TABLE OPERATOR NON-PRESSURE ULCER LEFT HEEL Case Notes PULSE LAVAGE WITH GENT. POCT GLUCOSE - BAGLEY DOCKED DEVICE Routine 01/22/2022 12:07 PM DICE TABLE OPERATOR documented in this encounter Results * POCT glucose (01/22/2022 2:01 PM DICE TABLE OPERATOR) GLUCOSE POC 72 70 - 99 MG/DL 01/22/2022 2:51 PM DICE TABLE OPERATOR [facility] 01/22/2022 2:01 PM DICE TABLE OPERATOR us Evan Olivarez DPM POCT ORDERABLES - DEVICE Fin al Result [facility] [address] [place] [address], * CULTURE, TB/AFB W/ STAIN (01/22/2022 1:25 PM DICE TABLE OPERATOR) SPECIMEN SOURCE LEFT HEEL WOUND 01/22/2022 2:20 PM DICE TABLE OPERATOR [facility] RESULT REPORT 02/18/2022 3:56 PM DICE TABLE OPERATOR [facility] COLT GARCIA Comment: Mycobacteria, Culture, with Fluorochrome Smear Mycobacteria Stn,AF,Fluor SOURCE : LEFT HEEL WOUND Result/Comment: No acid-fast bacilli seen. Mycobacteria smear result should be used as an adjunct to culture in diagnosing mycobacterial disease (e.g. tuberculosis). If intended, please ensure an order for Mycobacteria (Jwvr-Waik-Mbljhxq) culture has also been submitted. Acid Fast Culture SOURCE : LEFT HEEL WOUND Result/Comment: No Mycobacterium species isolated after 6 weeks incubation. ? Mycobacterial probe for TB complex not indicated ? Mycobacterial identification not indicated Test Performed by [facility], [facility], [address] [place] [address] Raymond Reyna M.D., Ph.D., Director of Laboratories , [facility] [id number] REPORT STATUS FINAL 03/17/2022 2:14 PM DICE TABLE OPERATOR [facility] RICHARD GARCIA WOUND LEFT HEEL STRUCTURE / Unknown 01/22/2022 1:25 PM DICE TABLE OPERATOR Evan Olivarez DPM MICROBIOLOGY - GENERAL ORDER LIDIA Final Result [facility] [address], [place] [phone] [facility] [place] [address], [place] [phone] * (ABNORMAL) CULTURE, FUNGUS W/ STAIN (01/22/2022 1:25 PM DICE TABLE OPERATOR) SPECIMEN SOURCE LEFT HEEL WOUND 01/22/2022 2:19 PM DICE TABLE OPERATOR [facility] Comment:CALLED TO BRANDIE OLIVAREZ OFFICE [phone] COMMENT REPORT(AA ) 02/02/2022 12:59 PM DICE TABLE OPERATOR [facility] KIARA WALLS Comment: FUNGUS CULTURE AND SMEAR Fungal Stain SOURCE : LEFT HEEL WOUND Result/Comment: No fungus seen on microscopic examination. Fungus Culture SOURCE : LEFT HEEL WOUND Result/Comment: Identification performed by mass spectrometry. ?? ORGANISM(S) ISOLATED 1. ??Light growth of Maggy parapsilosis CRITICAL VALUE REPORT Test Performed by [facility], [facility], [address] [place] [address] Raymond Reyna M.D., Ph.D., Director of Laboratories , [facility] [id number] REPORT STATUS FINAL 02/23/2022 5:19 PM DICE TABLE OPERATOR [facility] JAZMÍNJUVENTINO WALLS WOUND LEFT HEEL STRUCTURE / Unknown 01/22/2022 1:25 PM DICE TABLE OPERATOR Evan Olivarez DPM MICROBIOLOGY - GENERAL ORDER LIDIA Final Result [facility] [address] , [place] [phone] [facility] [place] [address], [place] [phone] * CULTURE, WOUND, W/GRAM STAIN (01/22/2022 1:25 PM DICE TABLE OPERATOR) SPEC DESCRIPTION HEEL, LEFT 01/22/2022 2:04 PM DICE TABLE OPERATOR [facility] SPECIAL REQUESTS NO SPECIAL REQUEST 01/22/2022 2:04 PM DICE TABLE OPERATOR [facility] GRAM STAIN RESULT RARE GRAM POSITIVE COCCI 01/22/2022 5:24 PM DICE TABLE OPERATOR [facility] GRAM STAIN RESULT RARE GRAM POSITIVE RODS 01/22/2022 5:24 PM DICE TABLE OPERATOR [facility] CULTURE RESULT FEW PSEUDOMONAS AERUGINOSA 01/25/2022 2:13 PM DICE TABLE OPERATOR [facility] WOUND LEFT HEEL STRUCTURE / Unknown 01/22/2022 1:25 PM DICE TABLE OPERATOR Narrative Organism Antibiotic Method Susceptibility Pseudomonas aeruginosa AMIKACIN SADIA (KB) Sensitive Pseudomonas aeruginosa AZTREONAM SADIA (KB) Sensitive Pseudomonas aeruginosa CEFEPIME SADIA (KB) Sensitive Pseudomonas aeruginosa CEFTAZIDIME SADIA (KB) Sensitive Pseudomonas aeruginosa CIPROFLOXACIN SADIA (KB) Sensitive Pseudomonas aeruginosa GENTAMICIN SADIA (KB) Sensitive Pseudomonas aeruginosa LEVOFLOXACIN SADIA (KB) Sensitive Pseudomonas aeruginosa MEROPENEM SADIA (KB) Sensitive Pseudomonas aeruginosa PIPRACIL/TAZO SADIA (KB) Sensitive Pseudomonas aeruginosa TOBRAMYCIN SADIA (KB) Sensitive us Evan Olivarez [facility] MICROBIOLOGY - GENERAL ORDER LIDIA Final Result Performing Organization Address [facility] de Phone Number [facility] [address] [place] [address], [place] [phone] [facility] [address] [place] [address], [place] [phone] * CULTURE, ANAEROBIC (01/22/2022 1:25 PM DICE TABLE OPERATOR) SPEC DESCRIPTION HEEL, LEFT 01/22/2022 2:04 PM DICE TABLE OPERATOR [facility] SPECIAL REQUESTS NO SPECIAL REQUEST 01/22/2022 2:04 PM DICE TABLE OPERATOR [facility] CULTURE RESULT NO ANAEROBES ISOLATED 01/27/2022 5:01 PM DICE TABLE OPERATOR [facility] WOUND LEFT HEEL STRUCTURE / Unknown 01/22/2022 1:25 PM DICE TABLE OPERATOR us Evan Olivarez DPM MICROBIOLOGY - GENERAL ORDER LIDIA Final Result Performing Organization Address [facility] Co de Phone Number [facility] [address] [place] [address], [place] [phone] [facility] [address] [place] [address], * (ABNORMAL) POCT glucose (01/22/2022 12:07 PM DICE TABLE OPERATOR) GLUCOSE POC 68(L) 70 - 99 MG/DL 01/22/2022 12:22 PM DICE TABLE OPERATOR [facility] 01/22/2022 12:0 7 PM DICE TABLE OPERATOR us Evan Olivarez DPM POCT ORDERABLES - DEVICE Mo walker Result [facility] [address] [place] [address], [place] [phone] documented in this encounter Visit Diagnoses Not on filedocumented in this encounter Administered Medications Inactive Administered Medications - up to 3 most recent administrations Medication Order MAR Action Action Date Dose Rate Site bacitracin ointment As needed, Starting on Tue01/22/22 at 1342, Until Tue01/22/22 at 1408, Intra-Op Given 01/22/2022 1:42 PM DICE TABLE OPERATOR 1 Application. Left Foot BUpivacaine (PF) (MARCAINE) 0.5 % injection As needed, Starting on Tue01/22/22 at 1315, Until Tue01/22/22 at 1352, Intra-Op Given 01/22/2022 1:15 PM DICE TABLE OPERATOR 7.5 mLs Left Foot dextrose 50 % solution 12.5 g 12.5 g, Intravenous, As needed, Low blood sugar, 1 dose, Starting on Tue01/22/22 at 1214, Until Tue01/22/22 at 1221, Administration rate 3 mL/min. Given 01/22/2022 12:21 PM DICE TABLE OPERATOR 12.5 g dextrose 50 % solution 1 dose, Starting on Tue01/22/22 at 1212, Until Tue01/22/22 at 1221, Created by cabinet override gentamicin (GARAMYCIN) injection As needed, Starting on Tue01/22/22 at 1330, Until Tue01/22/22 at 1352, Intra-Op Given 01/22/2022 1:30 PM DICE TABLE OPERATOR 480 mg Left Foot lactated ringers infusion at 10 mL/hr, Intravenous, Continuous, Starting on Tue01/22/22 at 1145, Until Tue01/22/22 at 1657, Infuse at TKO rate, Pre-Op Restarted 01/22/2022 1:44 PM DICE TABLE OPERATOR Continued by Anesthesia 01/22/2022 1:01 PM DICE TABLE OPERATOR 10 mL/hr New Bag 01/22/2022 12:20 PM DICE TABLE OPERATOR 10 mL/hr lidocaine (XYLOCAINE) 1 % injection SOLN As needed, Starting on Tue01/22/22 at 1315, Until Tue01/22/22 at 1352, Intra-Op Given 01/22/2022 1:15 PM DICE TABLE OPERATOR 7.5 mLs Left Foot documented in this encounter Active and Recently Administered Medications Times are shown in DICE TABLE OPERATOR. Scheduled Medication Order 01/20/2022 01/21/2022 01/22/2022 ceFAZolin (ANCEF) 2 g in NS 100 mL IVPB 2 g, Intravenous, at 200 mL/hr, Once, 1 dose, On Tue01/22/22 at 1145 1145 (Canceled Entry - Provider: Automatic Discharge Provider - Comment: Automatically canceled at discontinue of medication order) Continuous Medication Order 01/20/2022 01/21/2022 01/22/2022 lactated ringers infusion at 10 mL/hr, Intravenous, Continuous, Starting on Tue01/22/22 at 1145, Until Tue01/22/22 at 1657, Infuse at TKO rate, Pre-Op 1220 (New Bag - Prov ider: Nicki Soto RN)1301 (Continued by Anesthesia - Provider: Diane Hauser CRNA)1343 (Paused - Provider: Diane Hauser CRNA - Comment: Switch to gravity)1344 (Restarted - Provider: Diane Hauser CRNA)1416 (Infusion Stop Time - Provider: Bryanna Santiago RN) PRN Medication Order 01/20/2022 01/21/2022 01/22/2022 bacitracin ointment (CANCELED) As needed, Starting on Tue01/22/22 at 1342, Until Tue01/22/22 at 1408, Intra-Op 1342 (Given - Provid er: Evan Olivarez DPM) BUpivacaine (PF) (MARCAINE) 0.5 % injection (CANCELED) As needed, Starting on Tue01/22/22 at 1315, Until Tue01/22/22 at 1352, Intra-Op 1315 (Given - Provid er: Evan Olivarez DPM) dextrose 50 % solution 12.5 g (COMPLETED) 12.5 g, Intravenous, As needed, Low blood sugar, 1 dose, Starting on Tue01/22/22 at 1214, Until Tue01/22/22 at 1221, Administration rate 3 mL/min. 1221 (Given - Provid er: Nicki Soto RN) gentamicin (GARAMYCIN) injection (CANCELED) As needed, Starting on Tue01/22/22 at 1330, Until Tue01/22/22 at 1352, Intra-Op 1330 (Given - Provid er: Evan Olivarez DPM) lidocaine (XYLOCAINE) 1 % injection SOLN (CANCELED) As needed, Starting on Tue01/22/22 at 1315, Until Tue01/22/22 at 1352, Intra-Op 1315 (Given - Provid er: Evan Olivarez DPM) documented in this encounter Care Teams Control Panel Operator Crude Unit Relationship Specialty Start Date End Date Dominic Recinos MD [address] [place] [id number] PCP - General INTERNAL MEDICINE 09/18/21 Bonilla Anton MD [address] [place] [address] Consulting Physician INTERNAL MEDICINE 10/16/21 Celso Haro DO [address] [facility] [address] [place] [address] INTERNAL MEDICINE 10/16/21 Evan Olivarez DPM [address] [place] [address] [place] [address] Consulting Physician PODIATRY/SURGERY 12/07/21 12/07/22 documented as of this encounter
--- OUTSIDE RECORDS SUMMARY | 2024-02-23 13:08 | XMS_ITS | Encounter Summary ---
Author Organization [facility] Address [facility]. [place], [place] [address] [place] [address] Care Team Providers Care Fiber Design Engineer Name Role Phone Dominic Recinos MD Primary Care Provider [phone] Bonilla Anton MD Unavailable Celso Haro DO Unavailable Evan Olivarez DPM Unavailable [phone] Encounter Details Date Type Department Care Team (Latest Contact Info) Description 04/19/2022 Travel Social History Tobacco Use Types Packs/Day [...] suspected to have Coronavirus/COVID-19? No / Unsure 04/19/2022 7:54 AM SALES REPRESENTATIVE METALS documented as of this encounter Plan of Treatment Not on file documented as of this encounter Visit Diagnoses Not on filedocumented in this encounter Care Teams Fiber Design Engineer Relationship Specialty Start Date End Date Dominic Recinos MD [address] [place] [address] PCP - General INTERNAL MEDICINE 09/18/21 Bonilla Anton MD [address] [place] [address] Consulting Physician INTERNAL MEDICINE 10/16/21 Celso Haro DO [address] [place], [place] [id number] INTERNAL MEDICINE 10/16/21 Evan Olivarez DPM [address] [place] [address] Consulting Physician PODIATRY/SURGERY 12/07/21 12/07/22 documented as of this encounter
--- OUTSIDE RECORDS SUMMARY | 2024-02-23 13:08 | XMS_ITS | Encounter Summary ---
Author Organization [facility] Address [facility]. [place], [place] [address] [place] [address] Care Team Providers Care Aadc Plans Staff Officer Name Role Phone Dominic Recinos MD Primary Care Provider [phone] Bonilla Anton MD Unavailable Celso Haro DO Unavailable Evan Olivarez DPM Unavailable [phone] Encounter Details Date Type Department Care Team (Latest Contact Info) Description 05/17/2022 Travel Social History Tobacco Use Types Packs/Day [...] suspected to have Coronavirus/COVID-19? No / Unsure 05/17/2022 7:52 AM CDT documented as of this encounter Plan of Treatment Not on file documented as of this encounter Visit Diagnoses Not on filedocumented in this encounter Care Teams Aadc Plans Staff Officer Relationship Specialty Start Date End Date Dominic Recinos MD [address] [place] [address] PCP - General INTERNAL MEDICINE 09/18/21 Bonilla Anton MD [address] [place] [address] Consulting Physician INTERNAL MEDICINE 10/16/21 Celso Haro DO [address] [place] [address] INTERNAL MEDICINE 10/16/21 Evan Olivarez DPM [address] [place] [address] Consulting Physician PODIATRY/SURGERY 12/07/21 12/07/22 documented as of this encounter
--- OUTSIDE RECORDS SUMMARY | 2024-02-23 13:08 | XMS_ITS | Encounter Summary ---
Author Organization [facility] Address [facility]. [place], [place] [address] [place] [address] Care Team Providers Care Air Tube Releaser Name Role Phone Dominic Recinos MD Primary Care Provider [phone] Bonilla Anton MD Unavailable Celso Haro DO Unavailable Evan Olivarez DPM Unavailable [phone] Encounter Details Date Type Department Care Team (Latest Contact Info) Description 03/02/2022 Travel Social History Tobacco Use Types Packs/Day [...] suspected to have Coronavirus/COVID-19? No / Unsure 03/02/2022 8:09 AM DIET SUPERVISOR documented as of this encounter Plan of Treatment Not on file documented as of this encounter Visit Diagnoses Not on filedocumented in this encounter Care Teams Air Tube Releaser Relationship Specialty Start Date End Date Dominic Recinos MD [address] [place] [address] PCP - General INTERNAL MEDICINE 09/18/21 Bonilla Anton MD [address] [place] [address] Consulting Physician INTERNAL MEDICINE 10/16/21 Celso Haro DO [address] [place], [place] [id number] INTERNAL MEDICINE 10/16/21 Eavn Olivarez DPM [address] [place] [address] Consulting Physician PODIATRY/SURGERY 12/07/21 12/07/22 documented as of this encounter
--- OUTSIDE RECORDS SUMMARY | 2024-02-23 13:08 | XMS_ITS | Encounter Summary ---
Author Organization [facility] Address [facility]6 [facility]. [place], [place] [address] [place] [address] Care Team Providers Care Marine Electrician Name Role Phone Dominic Recinos MD Primary Care Provider [phone] Bonilla Anton MD Unavailable Celso Haro DO Unavailable Evan Olivarez DPM Unavailable [phone] Encounter Details Date Type Department Care Team (Latest Contact Info) Description 02/22/2022 Travel Social History Tobacco Use Types Packs/Day [...] suspected to have Coronavirus/COVID-19? No / Unsure 02/22/2022 7:41 AM DIVING COACH documented as of this encounter Plan of Treatment Not on file documented as of this encounter Visit Diagnoses Not on filedocumented in this encounter Care Teams Marine Electrician Relationship Specialty Start Date End Date Dominic Recinos MD [address] [place] [address] PCP - General INTERNAL MEDICINE 09/18/21 Bonilla Anton MD [address] [place] [address] Consulting Physician INTERNAL MEDICINE 10/16/21 Celso Haro DO [address] [place], [place] [phone] INTERNAL MEDICINE 10/16/21 Evan Olivarez DPM [address] [place] [address] Consulting Physician PODIATRY/SURGERY 12/07/21 12/07/22 documented as of this encounter
--- OUTSIDE RECORDS SUMMARY | 2024-02-23 13:08 | XMS_ITS | Encounter Summary ---
Author Organization [facility] Address [address] [place] [address]. [place] [address] [place] [address] Care Team Providers Care Graining Machine Operator Name Role Phone Dominic Recinos MD Primary Care Provider [phone] Bonilla Anton MD Unavailable Celso Haro DO Unavailable Evan Olivarez DPM Unavailable [phone] Encounter Details Date Type Department Care Team (Late st Contact Info) Description 02/08/2022 8:00 AM LIME BOILER - 02/08/2022 11:59 PM LIME BOILER Hospital Encounter [facility] [address] [place] [address] Graciela Rodriguez, PENS AND PENCILS DIPPER [address] [place] [address] Discharge Disposition: Home or Self [...] suspected to have Coronavirus/COVID-19? 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 (CMS/HCC HHS/HCC)- Primary documented in this encounter Administered Medications Inactive Administered Medications - up to 3 most recent administrations Medication Order MAR Action Action Date Dose Rate Site lidocaine (XYLOCAINE) 2 % jelly 5 mL 5 mL, Topical, Once, 1 dose, On Tue02/08/22 at 0930Indications: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, 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
--- OUTSIDE RECORDS SUMMARY | 2024-02-23 13:08 | XMS_ITS | Encounter Summary ---
Author Organization [facility] Address [address] [place] [address]. [place], [place] [address] [place] [address] Care Team Providers Care Angular Js Developer Name Role Phone Dominic Recinos MD Primary Care Provider [phone] Bonilla Anton MD Unavailable Celso Haro DO Unavailable Evan Olivarez DPM Unavailable [phone] Encounter Details Date Type Department Care Team (Late st Contact Info) Description 04/19/2022 7:57 AM FIXED INCOME ANALYST - 04/19/2022 11:59 PM FIXED INCOME ANALYST Hospital Encounter [facility] [address] [place] [address] Graciela Rodriguez, REGIONAL PROPERTY MANAGER [address] [place] [address] Discharge Disposition: Home or Self [...] suspected to have Coronavirus/COVID-19? No / Unsure 04/26/2022 7:45 AM FIXED INCOME ANALYST documented as of this encounter Medications at [...] as of this encounter Progress Notes * Denisse Michel RN - 04/19/2022 8:00 AM CSTEncounter addended by: Denisse Michel RN on: 04/19/2022 3:08 PM Actions taken: MAR administration accepted D INCOME ANALYST documented in this encounter Plan of Treatment Not on file documented as of this encounter Visit Diagnoses Diagnosis Diabetic ulcer of left heel associated with type 2 diabetes mellitus, with fat layer exposed (CMS/HCC HHS/HCC)- Primary documented in this encounter Administered Medications Inactive Administered Medications - up to 3 most recent administrations Medication Order MAR Action Action Date Dose Rate Site lidocaine (XYLOCAINE) 2 % jelly 5 mL 5 mL, Topical, Once, 1 dose, On Tue04/19/22 at 0845Indications:Diabetic ulcer of left heel associated with type 2 diabetes mellitus, with fat layer exposed (CMS/HCC HHS/HCC) Given 04/19/2022 8:45 AM FIXED INCOME ANALYST 5 mLs documented in this encounter Care Teams Angular Js Developer Relationship Specialty Start Date End Date Dominic Recinos MD 4 [place] [id number] PCP - General INTERNAL MEDICINE 09/18/21 Bonilla Anton MD 9 [place] [address] Consulting Physician INTERNAL MEDICINE 10/16/21 Celso Haro DO [address] [place] [address] INTERNAL MEDICINE 10/16/21 Evan Olivarez DPM [address] [facility] [place] [address] Consulting Physician PODIATRY/SURGERY 12/07/21 12/07/22 documented as of this encounter
--- OUTSIDE RECORDS SUMMARY | 2024-02-23 13:08 | XMS_ITS | Encounter Summary ---
Author Organization [facility] Address [address] [place] [address]. [place], [place] [address] [place] [address] Care Team Providers Care Work Adjustment Instructor Name Role Phone Dominic Recinos MD Primary Care Provider [phone] Bonilla Anton MD Unavailable Celso Haro DO Unavailable Evan Olivarez DPM Unavailable [phone] Encounter Details Date Type Department Care Team (Late st Contact Info) Description 02/22/2022 7:48 AM COUNT ROOM CLERK - 02/22/2022 11:59 PM COUNT ROOM CLERK Hospital Encounter [facility] [address] [place] [address] Graciela Rodriguez, WOOD CARVING LATHE OPERATOR [address] [place] [address] Discharge Disposition: Home or Self [...] Coronavirus/COVID-19? No / Unsure 02/22/2022 7:41 AM COUNT ROOM CLERK documented as of this encounter Medications at [...] as of this encounter Progress Notes * DEVANG Chavarria - 02/22/2022 8:00 AM CSTEncounter addended by: Graciela Rodriguez NP on: 02/22/2022 9:08 AM Actions taken: Order list changed, Diagnosis association updated T ROOM CLERK * Nieves Lowry RN - 02/22/2022 8:00 AM CSTEncounter addended by: Nieves Lowry RN on: 02/22/2022 9:39 AM Actions taken: MAR administration accepted T ROOM CLERK documented in this encounter Plan of Treatment [...] 5 mL, Topical, Once, 1 dose, On Tue02/22/22 at 0915Indications:Diabetic ulcer of left heel associated with type 2 diabetes mellitus, 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 (CMS/HCC HHS/HCC) Given 02/22/2022 8:10 AM COUNT ROOM CLERK 5 mLs silver-potassium nitrate applicator 1 applicator 1 applicator, Topical, Once, 1 dose, On Tue02/22/22 at 0930Indications:Diabetic ulcer of left heel associated with type 2 diabetes mellitus, 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 (CMS/HCC HHS/HCC) Given 02/22/2022 8:50 AM COUNT ROOM CLERK 1 applicator documented in this encounter Care Teams Work Adjustment Instructor Relationship Specialty Start Date End Date Dominic Recinos MD [address] [place] [address] PCP - General INTERNAL MEDICINE 09/18/21 Bonilla Anton MD [address] [place] [address] Consulting Physician INTERNAL MEDICINE 10/16/21 Celso Haro DO [address] [place] [address] INTERNAL MEDICINE 10/16/21 Evan Olivarez DPM [address] [facility] [place] [address] Consulting Physician PODIATRY/SURGERY 12/07/21 12/07/22 documented as of this encounter
--- OUTSIDE RECORDS SUMMARY | 2024-02-23 13:08 | XMS_ITS | Encounter Summary ---
Author Organization [facility] Address [address] [place] [address]. [place], [place] [address] [place] [address] Care Team Providers Care Loftsman Name Role Phone Dominic Recinos MD Primary Care Provider [phone] Bonilla Anton MD Unavailable Celso Haro DO Unavailable Evan Olivarez DPM Unavailable [phone] Encounter Details Date Type Department Care Team (Late st Contact Info) Description 02/01/2022 7:58 AM PACS ADMINISTRATOR - 02/01/2022 11:59 PM PACS ADMINISTRATOR Hospital Encounter [facility] [address] [place] [address] Graciela Rodriguez, PUBLIC SPEAKING COACH [address] [place] [address] Discharge Disposition: Home or Self [...] suspected to have Coronavirus/COVID-19? 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 (CMS/HCC HHS/HCC) documented in this encounter Administered Medications Inactive Administered Medications - up to 3 most recent administrations Medication Order MAR Action Action Date Dose Rate Site lidocaine (XYLOCAINE) 2 % jelly 5 mL 5 mL, Topical, Once, 1 dose, On Tue02/01/22 at 0915Indications:Ulcer of left lower extremity with fat layer exposed (CMS/HCC HHS/HCC),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 (CMS/HCC HHS/HCC) Given 02/01/2022 8:00 AM PACS ADMINISTRATOR 5 mLs documented in this encounter Care Teams Loftsman Relationship Specialty Start Date End Date Dominic Recinos MD [address] [place] [address] PCP - General INTERNAL MEDICINE 09/18/21 Bonilla Anton MD [address] [place] [address] Consulting Physician INTERNAL MEDICINE 10/16/21 Celso Haro DO [address] [place] [address] INTERNAL MEDICINE 10/16/21 Evan Olivarez DPM [address] [facility] [place] [address] Consulting Physician PODIATRY/SURGERY 12/07/21 12/07/22 documented as of this encounter
--- OUTSIDE RECORDS SUMMARY | 2024-02-23 13:08 | XMS_ITS | Encounter Summary ---
Author Organization [facility] Address [facility]. [place], [place] [address] [place] [address] Care Team Providers Care Associate Professor Of Biblical Studies Name Role Phone Dominic Recinos MD Primary Care Provider [phone] Bonilla Anton MD Unavailable Celso Haro DO Unavailable Evan Olivarez DPM Unavailable [phone] Encounter Details Date Type Department Care Team (Latest Contact Info) Description 02/01/2022 Travel Social History Tobacco Use Types Packs/Day [...] Coronavirus/COVID-19? No / Unsure 02/01/2022 7:57 AM CHERRY PICKER OPERATOR documented as of this encounter Plan of Treatment Not on file documented as of this encounter Visit Diagnoses Not on filedocumented in this encounter Care Teams Associate Professor Of Biblical Studies Relationship Specialty Start Date End Date Dominic Recinos MD [address] [place] [address] PCP - General INTERNAL MEDICINE 09/18/21 Bonilla Anton MD [address] [place] [address] Consulting Physician INTERNAL MEDICINE 10/16/21 Celso Haro DO [address] [place], [place] [id number] INTERNAL MEDICINE 10/16/21 Evan Olivarez DPM [address] [place] [address] Consulting Physician PODIATRY/SURGERY 12/07/21 12/07/22 documented as of this encounter
--- OUTSIDE RECORDS SUMMARY | 2024-02-23 13:08 | XMS_ITS | Encounter Summary ---
Author Organization [facility] Address [address] [place] [address]. [place], [place] [address] [place] [address] Care Team Providers Care Fence Repairman Name Role Phone Dominic Recinos MD Primary Care Provider [phone] Bonilla Anton MD Unavailable Celso Haro DO Unavailable Evan Olivarez DPM Unavailable [phone] Encounter Details Date Type Department Care Team (Latest Contact Info) Description 05/10/2022 Travel Social History Tobacco Use Types Packs/Day [...] Coronavirus/COVID-19? No / Unsure 05/10/2022 7:46 AM MANAGER OF HOUSEKEEPING documented as of this encounter Plan of Treatment Not on file documented as of this encounter Visit Diagnoses Not on filedocumented in this encounter Care Teams Fence Repairman Relationship Specialty Start Date End Date Dominic Recinos MD [address] [place] [address] PCP - General INTERNAL MEDICINE 09/18/21 Bonilla Anton MD [address] [place] [address] Consulting Physician INTERNAL MEDICINE 10/16/21 Celso Haro DO [address] [place], [place] [address] INTERNAL MEDICINE 10/16/21 Evan Olivarez DPM [address] [place] [address] Consulting Physician PODIATRY/SURGERY 12/07/21 12/07/22 documented as of this encounter
--- OUTSIDE RECORDS SUMMARY | 2024-02-23 13:08 | XMS_ITS | Encounter Summary ---
Author Organization [facility] Address [address] [place] [address]. [place] [address] [place] [address] Care Team Providers Care Acoustical Material Worker Name Role Phone Dominic Recinos MD Primary Care Provider [phone] Bonilla Anton MD Unavailable Celso Haro DO Unavailable Evan Olivarez DPM Unavailable [phone] Encounter Details Date Type Department Care Team (Late st Contact Info) Description 05/17/2022 7:56 AM CDT - 05/17/2022 11:59 PM CDT Hospital Encounter [facility] [address] [place] [address] Graciela Rodriguez, BUSINESS DEVELOPMENT ENGINEER [address] [place] [address] Discharge Disposition: Home or Self [...] Progress Notes * Nieves Lowry RN - 05/17/2022 8:00 AM CDTEncounter addended by: Nieves Lowry RN on: 05/17/2022 9:13 AM Actions taken: MAR administration accepted documented in this encounter Plan of Treatment Not on file documented as of this encounter Visit Diagnoses Diagnosis Diabetic ulcer of left heel associated with type 2 diabetes mellitus, with fat layer exposed ([facility]/HCC HHS/HCC)- Primary documented in this encounter Administered Medications Inactive Administered Medications - up to 3 most recent administrations Medication Order MAR Action Action Date Dose Rate Site lidocaine (XYLOCAINE) 2 % jelly 5 mL 5 mL, Topical, Once, 1 dose, On Tue05/17/22 at 0830Indications:Diabetic ulcer of left heel associated with type 2 diabetes mellitus, with fat layer exposed (CMS/HCC HHS/HCC) Given 05/17/2022 8:00 AM CDT 5 mLs documented in this encounter Care Teams Acoustical Material Worker Relationship Specialty Start Date End Date Dominic Recinos MD [address] [place] [address] PCP - General INTERNAL MEDICINE 09/18/21 Bonilla Anton MD 9 [place] [address] Consulting Physician INTERNAL MEDICINE 10/16/21 Celso Haro DO [address] [place] [address] INTERNAL MEDICINE 10/16/21 Evan Olivarez DPM [facility] [place] [address] Consulting Physician PODIATRY/SURGERY 12/07/21 12/07/22 documented as of this encounter
--- OUTSIDE RECORDS SUMMARY | 2024-02-23 13:08 | XMS_ITS | Encounter Summary ---
Author Organization [facility] Address [facility]. [place], [place] [address] [place] [address] Care Team Providers Care Healthcare Manager Name Role Phone Dominic Recinos MD Primary Care Provider [phone] Bonilla Anton MD Unavailable Celso Haro DO Unavailable Evan Olivarez DPM Unavailable Encounter Details Date Type Department Care Team (Latest Contact Info) Description 01/22/2022 Travel Social History Tobacco Use Types Packs/Day [...] Coronavirus/COVID-19? No / Unsure 01/22/2022 11:14 AM RESEARCH ADMINISTRATOR documented as of this encounter Plan of Treatment Not on file documented as of this encounter Visit Diagnoses Not on filedocumented in this encounter Care Teams Healthcare Manager Relationship Specialty Start Date End Date Dominic Recinos MD [address] [place] [address] PCP - General INTERNAL MEDICINE 09/18/21 Bonilla Anton MD [address] [place] [address] Consulting Physician INTERNAL MEDICINE 10/16/21 Celso Haro DO [address] [place], [place] [phone] INTERNAL MEDICINE 10/16/21 Evan Olivarez DPM [address] [place] [address] Consulting Physician PODIATRY/SURGERY 12/07/21 12/07/22 documented as of this encounter
--- OUTSIDE RECORDS SUMMARY | 2024-02-23 13:08 | XMS_ITS | Encounter Summary ---
Author Organization [facility] Address [address] [place] [address]. [place], [place] [address] [place] [address] Care Team Providers Care Information Resources Manager Name Role Phone Dominic Recinos MD Primary Care Provider [phone] Bonilla Anton MD Unavailable Celso Haro DO Unavailable Evan Olivarez DPM Unavailable [phone] Encounter Details Date Type Department Care Team (Late st Contact Info) Description 04/13/2022 12:33 PM POINTER HELPER - 04/13/2022 11:59 PM POINTER HELPER Hospital Encounter [facility] [address] [place] [address] Graciela Rodriguez, ROOFING LAYER [address] [place] [address] Discharge Disposition: Home or Self [...] Coronavirus/COVID-19? No / Unsure 04/26/2022 7:45 AM POINTER HELPER documented as of this encounter Medications at [...] Progress Notes * Denisse Michel RN - 04/13/2022 1:00 PM CSTEncounter addended by: Denisse Michel RN on: 04/13/2022 3:32 PM Actions taken: MAR administration accepted TER HELPER documented in this encounter Plan of Treatment [...] 5 mL, Topical, Once, 1 dose, On Tue04/13/22 at 1415Indications:Diabetic ulcer of left heel associated with type 2 diabetes mellitus, 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 (CMS/HCC HHS/HCC) Given 04/13/2022 2:32 PM POINTER HELPER 5 mLs documented in this encounter Care Teams Information Resources Manager Relationship Specialty Start Date End Date Dominic Recinos MD [address] [place] [address] PCP - General INTERNAL MEDICINE 09/18/21 Bonilla Anton MD [address] [place] [address] Consulting Physician INTERNAL MEDICINE 10/16/21 Celso Haro DO [address] [place] [address] INTERNAL MEDICINE 10/16/21 Evan Olivarez DPM [address] [place] [address] [place] [address] Consulting Physician PODIATRY/SURGERY 12/07/21 12/07/22 documented as of this encounter
--- OUTSIDE RECORDS SUMMARY | 2024-02-23 13:08 | XMS_ITS | Encounter Summary ---
Author Organization [facility] Address [address] [place] [address]. [place], [place] [address] [place] [address] Care Team Providers Care Director Of Digital Platforms Name Role Phone Dominic Recinos MD Primary Care Provider [phone] Bonilla Anton MD Unavailable Celso Haro DO Unavailable Evan Olivarez DPM Unavailable [phone] Encounter Details Date Type Department Care Team (Late st Contact Info) Description 02/15/2022 8:00 AM CLOCKSMITH - 02/15/2022 11:59 PM CLOCKSMITH Hospital Encounter [facility] [address] [place] [address] Graciela Rodriguez, CHARCOAL UNLOADER [address] [place] [address] Discharge Disposition: Home or Self [...] Coronavirus/COVID-19? No / Unsure 02/15/2022 7:43 AM CLOCKSMITH documented as of this encounter Medications at [...] Progress Notes * Nieves Lowry RN - 02/15/2022 8:00 AM CSTEncounter addended by: Nieves Lowry RN on: 02/15/2022 12:21 PM Actions taken: MAR administration accepted KSMITH documented in this encounter Plan of Treatment [...] 5 mL, Topical, Once, 1 dose, On Tue02/15/22 at 1245Indications:Diabetic ulcer of left heel associated with type 2 diabetes mellitus, 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 (CMS/HCC HHS/HCC) Given 02/15/2022 8:30 AM CLOCKSMITH 5 mLs documented in this encounter Care Teams Director Of Digital Platforms Relationship Specialty Start Date End Date Dominic Recinos MD [address] [place] [address] PCP - General INTERNAL MEDICINE 09/18/21 Bonilla Anton MD [address] [place] [address] Consulting Physician INTERNAL MEDICINE 10/16/21 Celso Haro DO [address] [place] [address] INTERNAL MEDICINE 10/16/21 Evan Olivarez DPM [facility] [facility] [place] [address] Consulting Physician PODIATRY/SURGERY 12/07/21 12/07/22 documented as of this encounter
--- OUTSIDE RECORDS SUMMARY | 2024-02-23 13:08 | XMS_ITS | Encounter Summary ---
Author Organization [facility] Address [address] [place] [address]. [place] [address] [place] [address] Care Team Providers Care Manager Call Name Role Phone Dominic Recinos MD Primary Care Provider [phone] Bonilla Anton MD Unavailable Celso Haro DO Unavailable Evan Olivarez DPM Unavailable [phone] Encounter Details Date Type Department Care Team (Late st Contact Info) Description 03/02/2022 8:00 AM DAIRY CATTLE FARM MANAGER - 03/02/2022 11:59 PM DAIRY CATTLE FARM MANAGER Hospital Encounter [facility] [address] [place] [address] Graciela Rodriguez, PIPE STEM REPAIRER [address] [place] [address] Discharge Disposition: Home or Self [...] Coronavirus/COVID-19? No / Unsure 03/02/2022 8:09 AM DAIRY CATTLE FARM MANAGER documented as of this encounter Medications at [...] Progress Notes * Denisse Michel RN - 03/02/2022 8:00 AM CSTEncounter addended by: Denisse Michel RN on: 03/02/2022 10:05 AM Actions taken: MAR administration accepted Y CATTLE FARM MANAGER documented in this encounter Plan of Treatment [...] 5 mL, Topical, Once, 1 dose, On Tue03/02/22 at 0945Indications:Diabetic ulcer of left heel associated with type 2 diabetes mellitus, 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 (CMS/HCC HHS/HCC) Given 03/02/2022 10:05 AM DAIRY CATTLE FARM MANAGER 5 mLs documented in this encounter Care Teams Manager Call Relationship Specialty Start Date End Date Dominic Recinos MD [address] [place] [address] PCP - General INTERNAL MEDICINE 09/18/21 Bonilla Anton MD [address] [place] [address] Consulting Physician INTERNAL MEDICINE 10/16/21 Celso Haro DO [address] [place] [address] INTERNAL MEDICINE 10/16/21 Evan Olivarez DPM [address] [place] [address] [place] [address] Consulting Physician PODIATRY/SURGERY 12/07/21 12/07/22 documented as of this encounter
--- OUTSIDE RECORDS SUMMARY | 2024-02-23 13:08 | XMS_ITS | Encounter Summary ---
Author Organization [facility] Address [address] [place] [address]. [place] [address] [place] [address] Care Team Providers Care Environmental Services Floor Tech Name Role Phone Dominic Recinos MD Primary Care Provider [phone] Bonilla Anton MD Unavailable Celso Haro DO Unavailable Evan Olivarez DPM Unavailable [phone] Reason for Visit * Auth/Cert (Routine) Specialty Diagnoses / Procedures Referred By Contac t Referred To Contact Diagnoses NON-PRESSURE ULCER LEFT HEEL Procedures DEEP DEBRIDEMENT OF ULCER LEFT HEEL Evan Olivarez, DPM [address] [facility] [place] [address] Phone: tel: fax: Referral ID Status Reason Start Date Expiration Date Visits Re quested Visits Authorized [id number] 1 1 Encounter Details Date Type Department Care Team (Late st Contact Info) Description 01/22/2022 1:01 PM COOK HELPER FRUIT Anesthesia Event [facility] [address] [place] [address] Diane Hauser, CORPORATE COUNSELOR [address] [place] [address] [phone] (Work) Anesthesia Record Procedure Summary Procedure Name Responsible Anesthesiologist Anesthesia Start Time Anesthesia Stop Time DEEP DEBRIDEMENT OF ULCER LEFT HEEL (Left: Foot) 01/22/22 1301 01/22/22 1354 Events Date Time Event Comment 01/22/2022 1256 1256 AN Anesthesia Prepped 1301 An Start Patient ID and consent checked and patient reassessed. 1301 An Start Data 1301 AN Immediate Reassess The dharmesh jimenez was reevaluated immediately before sedation or regional anesthesia. 1309 Face Mask Applied 1312 Anesthesia Ready 1350 an stop data 1354 Post Anesthetic Care Handoff I completed my handoff to the receiving nurse during which we: 1. Identified the patient 2. Identified the responsible provider 3. Reviewed the pertinent medical history 4. Discussed the surgical course 5. Reviewed intra-op anesthesia management and issues during anesthesia 6. Set expectations for post-procedure period 7. Allowed opportunity for questions and acknowledgement of understanding. 1354 An Stop Meds Name Total propofol (DIPRIVAN) 500 mg/50 mL injecti on 61.53 mg ceFAZolin (ANCEF) 2 g in NS 100 mL IVPB 0 g lactated ringers infusion 400 mL * Agents Name O2 Ancillary O2 * Blood No blood administrations on file. Lines, Drains, and Airways Type Details Placement Removal Peripheral IV Placement Date: 01/22/22; Placement Time: 1218; Placed Outside of This Facility?: No; Size: 20 G; Orientation: Right; Location: Antecubital; Site Prep: Chlorhexidine; Local Anesthetic: None; Inserted By: ZI Cortez; Insertion attempts: 1; Ultrasound-guided Placement?: No; Patient Tolerance: Tolerated well; Removal Date: 01/22/22; Removal Time: 1417; Removal Reason: Patient Discharged 01/22/22 1218 by Nicki Soto RN 01/22/22 1417 by Bryanna Santiago RN Surgical/Incision 01/22/22; 1410; Surgical Wound; Foot; Left; Iodoform 1/2 packed, Bacitracin ointment, ABD pad x2, Webril, Tony x2; 01/22/22; 1657 01/22/22 1410 by Reyna Newman RN 01/22/22 1657 by Automatic Discharge Provider documented in this encounter Social History Tobacco [...] Coronavirus/COVID-19? No / Unsure 01/22/2022 11:14 AM COOK HELPER FRUIT documented as of this encounter OR Notes * Anesthesia Postprocedure Evaluation - Diane Hauser CRNA - 01/22/2022 2:37 PM CST Anesthesia Post-op Note Diego Marquez Sr. Procedure(s): DEEP DEBRIDEMENT OF ULCER LEFT HEEL (Left: Foot) Anesthesia type: MAC Vitals: 01/22/22 1407 BP: 107/56 Vitals: 01/22/22 1407 Pulse: 62 Vitals: 01/22/22 1407 Resp: 16 Vitals: 01/22/22 1407 Temp: 35.6 ??C Vitals: 01/22/22 1407 SpO2: 99% Patient Location: Phase II/Outpatient Level of Consciousness: awake, alert and oriented Pain Management: adequate analgesia Airway Patency: patent Respiratory Status: spontaneous ventilation and acceptable Cardiovascular Status: acceptable, stable and hemodynamically stable Post-Op Nausea: none Postoperative Hydration: euvolemic There were no known notable events for this encounter. HELPER FRUIT * Anesthesia Preprocedure Evaluation - Diane Hauser CRNA - 01/22/2022 12:51 PM CST Anesthesia ROS/MED History Reviewed: Patient summary , Nursing notes , ECG, Family history anesthesia, Anesthesia history , Medications , Labs , Images/Studies Pre-Anesthetic State: responds appropriately and lethargic Pulmonary (+) sleep apnea Cardiovascular (+) pacemaker, hypertension, CAD, (CABG), arrhythmia, (A-fib), Peripheral vascular disease, hyperlipidemia Neuro/Psych (+) psychiatric problem, (anxiety), substance use, (alcohol use) GI/Hepatic/Renal (+) renal disease, (CRI) Endo/Other (+) diabetes mellitus, obese GENERAL COMMENTS BS 86@1253 BS was in the 60s on arrival, pt given 1/2 amp dextrose Albuterol-not had in a while Valium-not today Nlzeobzju-xolpvpinz-wzg today HCTZ Insulin-long acting last night, short acting yesterday Lisinopril-not today Warfarin-last Jorje, PCP, cleared pt for procedure 01/18/22, see media notes HX=CABG, ARTERY-VEIN, FOUR ANKLE SURGERY PACEMAKER 12/22/21 09:45 SODIUM: 134 (L) POTASSIUM: 4.5 CHLORIDE S/P/B: 94 (L) CO2: 31.6 ANION GAP: 8.4 BUN: 45 (H) CREATININE S/P/B: 1.48 (H) GFR ESTIMATE: 50 (L) GLUCOSE: 96 CALCIUM: 8.9 OSMOLALITY (CALC): 289 12/22/21 09:45 WBC: 6.7 RBC: 4.85 HGB: 12.0 (L) HCT: 38.9 MCV: 80.2 MCH: 24.7 (L) MCHC: 30.8 (L) RDW: 18.8 (H) PLT: 212 MPV: 9.8 ECHO 2020 EF 55-60% Mild pulmonary HTN, PAP estimated at 45mmhg Mild mitral valve regurg Mild aortic valve sclerosis Elevated right atrial pressures CXR Impression: Intact pacemaker. Cardiomegaly, but no acute cardiopulmonary disease process. Referred By: Interpreted By: Vivek Kang MD, 11/12/2021 10:[address] Anton ASSESSMENT AND PLAN: 1. Left heel wound/DFU. Patient wound reviewed with wound center. CTA does not show any significantdisease on the left leg. His issue has been offloading which he has been not very compliant with. MRI noted no osteomyelitis. Would likely need wound VAC or epi fix/skin graft to help heal the wound.Wound base seems clean. 2. PAD. Recent ABIs noted right ANSON is 1.6 with toe pressure 73 mmHg and left ANSON is noncompressible with toe pressure of 32 mmHg. CTA noted no significant stenosis in left leg though moderate right common iliac artery disease noted with mild to moderate disease in right distal SFA. 3. CAD-CABG. He follows with an [facility] at [place] and will defer to them. 4. Atrial fibrillation - Coumadin, will defer to them. 5. Hypertension. Blood pressure is decently well controlled. 6. Hyperlipidemia. He is on statins, would recommend goal LDL less than 70 mg/dL. ??Follow up in 3 months. Physical Evaluation Airway Mallampati: I TM Distance: >3 FB Neck ROM: normal Dental (edentulous) Pulmonary Pulmonary exam normal Cardiovascular Rate: normal (+) murmur, (LSB) Anesthesia Plan ASA 3 Intravenous Induction Anesthesia type: MAC Plan for Airway: nasal cannula/simple face mask Plan for Post-op Pain Plan: as per surgeon, oral pain medication and block Surgeon to give block in OR, informed that recall is a possibility but pain should be minimal. Discussed concerns of ETT if needed Informed Consent Anesthetic plan and risks discussed with healthcare power of civil rights attorney of whom consent was obtained.Consent of blood products not discussed. . HELPER FRUIT HELPER FRUIT HELPER FRUIT documented in this encounter Plan of Treatment Not on file documented as of this encounter Visit Diagnoses Not on filedocumented in this encounter Administered Medications Inactive Administered Medications - up to 3 most recent administrations Medication Order MAR Action Action Date Dose Rate Site lactated ringers infusion at 10 mL/hr, Intravenous, Continuous, Starting on Tue01/22/22 at 1145, Until Tue01/22/22 at 1657, Infuse at TKO rate, Pre-Op Restarted 01/22/2022 1:44 PM COOK HELPER FRUIT Continued by Anesthesia 01/22/2022 1:01 PM COOK HELPER FRUIT 10 mL/hr New Bag 01/22/2022 12:20 PM COOK HELPER FRUIT 10 mL/hr propofol (DIPRIVAN) IV bolus Intravenous, Continuous PRN, Starting on Tue01/22/22 at 1309, Until Tue01/22/22 at 1355, Anesthesia Intra-Op Rate/Dose Change 01/22/2022 1:39 PM COOK HELPER FRUIT 10 mcg/kg/min 6.534 mL/hr Rate/Dose Change 01/22/2022 1:12 PM COOK HELPER FRUIT 15 mcg/kg/min 9.80 1 mL/hr New Bag 01/22/2022 1:09 PM COOK HELPER FRUIT 30 mcg/kg/min 19.602 mL/ hr documented in this encounter Care Teams Environmental Services Floor Tech Relationship Specialty Start Date End Date Recinos, Rajneesh S, MD [address] [place] [address] PCP - General INTERNAL MEDICINE 09/18/21 Bonilla Anton MD [address] [place] [address] Consulting Physician INTERNAL MEDICINE 10/16/21 Celso Haro DO [address] [facility] [address] [place] [address] INTERNAL MEDICINE 10/16/21 Evan Olivarez DPM [address] [facility] [address] Consulting Physician PODIATRY/SURGERY 12/07/21 12/07/22 documented as of this encounter
--- OUTSIDE RECORDS SUMMARY | 2024-02-23 13:08 | XMS_ITS | Encounter Summary ---
Author Organization [facility] Address [address] [place] [address]. [place] [address] [place] [address] Care Team Providers Care Fern Gatherer Name Role Phone Dominic Recinos MD Primary Care Provider [phone] Bonilla Anton MD Unavailable Celso Haro DO Unavailable Evan Olivarez DPM Unavailable [phone] Encounter Details Date Type Department Care Team (Late st Contact Info) Description 05/24/2022 7:43 AM CDT - 05/24/2022 11:59 PM CDT Hospital Encounter [facility] [address] [place] [address] Graciela Rodriguez, STATION MECHANIC HELPER [address] [place] [address] Discharge Disposition: Home or Self [...] Progress Notes * Nieves Lowry RN - 05/24/2022 8:00 AM CDTEncounter addended by: Nieves Lowry RN on: 05/24/2022 9:06 AM Actions taken: MAR administration accepted documented in this encounter Plan of Treatment Not on file documented as of this encounter Visit Diagnoses Diagnosis Diabetic ulcer of left heel associated with type 2 diabetes mellitus, with fat layer exposed ([facility]/HCC HHS/HCC)- Primary documented in this encounter Administered Medications Inactive Administered Medications - up to 3 most recent administrations Medication Order MAR Action Action Date Dose Rate Site lidocaine (XYLOCAINE) 2 % jelly 5 mL 5 mL, Topical, Once, 1 dose, On Tue05/24/22 at 0845Indications:Diabetic ulcer of left heel associated with type 2 diabetes mellitus, with fat layer exposed (CMS/HCC HHS/HCC) Given 05/24/2022 8:00 AM CDT 5 mLs documented in this encounter Care Teams Fern Gatherer Relationship Specialty Start Date End Date Dominic Recinos MD [address] [place] [address] PCP - General INTERNAL MEDICINE 09/18/21 Bonilla Anton MD [address] [place] [address] Consulting Physician INTERNAL MEDICINE 10/16/21 Celso Haro DO [address] [place] [address] INTERNAL MEDICINE 10/16/21 Evan Olivarez DPM [facility] [place] [address] Consulting Physician PODIATRY/SURGERY 12/07/21 12/07/22 documented as of this encounter
--- OUTSIDE RECORDS SUMMARY | 2024-02-23 13:08 | XMS_ITS | Encounter Summary ---
Author Organization [facility] Address [facility] access hospital[facility]. [place], [place] [address] [place] [address] Care Team Providers Care Sales Merchandiser Name Role Phone Dominic Recinos MD Primary Care Provider [phone] Bonilla Anton MD Unavailable Celso Haro DO Unavailable Evan Olivarez DPM Unavailable [phone] Encounter Details Date Type Department Care Team (Latest Contact Info) Description 01/25/2022 Travel Social History Tobacco Use Types Packs/Day [...] suspected to have Coronavirus/COVID-19? No / Unsure 01/25/2022 7:50 AM MEDICAL INSTRUMENT TECHNICIAN documented as of this encounter Plan of Treatment Not on file documented as of this encounter Visit Diagnoses Not on filedocumented in this encounter Care Teams Sales Merchandiser Relationship Specialty Start Date End Date Dominic Recinos MD [address] [place] [address] PCP - General INTERNAL MEDICINE 09/18/21 Bonilla Anton MD [address] [place] [address] Consulting Physician INTERNAL MEDICINE 10/16/21 Celso Haro DO [address] [place], [place] [id number] INTERNAL MEDICINE 10/16/21 Evan Olivarez DPM [address] [place] [address] Consulting Physician PODIATRY/SURGERY 12/07/21 12/07/22 documented as of this encounter
--- OUTSIDE RECORDS SUMMARY | 2024-02-23 13:08 | XMS_ITS | Encounter Summary ---
Author Organization [facility] Address [facility]6 [facility]. [place], [place] [address] [place] [address] Care Team Providers Care Salt Maker Name Role Phone Dominic Recinos MD Primary Care Provider [phone] Bonilla Anton MD Unavailable Celso Haro DO Unavailable Evan Olivarez DPM Unavailable [phone] Encounter Details Date Type Department Care Team (Latest Contact Info) Description 04/26/2022 Travel Social History Tobacco Use Types Packs/Day [...] Coronavirus/COVID-19? No / Unsure 04/26/2022 7:45 AM CUSTODIAN SUPERVISOR documented as of this encounter Plan of Treatment Not on file documented as of this encounter Visit Diagnoses Not on filedocumented in this encounter Care Teams Salt Maker Relationship Specialty Start Date End Date Dominic Recinos MD [address] [place] [address] PCP - General INTERNAL MEDICINE 09/18/21 Bonilla Anton MD [address] [place] [address] Consulting Physician INTERNAL MEDICINE 10/16/21 Celso Haro DO [address] [place], [place] [id number] INTERNAL MEDICINE 10/16/21 Evan Olivarez DPM [address] [place] [address] Consulting Physician PODIATRY/SURGERY 12/07/21 12/07/22 documented as of this encounter
--- OUTSIDE RECORDS SUMMARY | 2024-02-23 13:08 | XMS_ITS | Encounter Summary ---
Author Organization [facility] Address [address] [place] [address]. [place], [place] [address] [place] [address] Care Team Providers Care Talent Scout Name Role Phone Dominic Recinos MD Primary Care Provider [phone] Bonilla Anton MD Unavailable Celso Haro DO Unavailable Evan Olivarez DPM Unavailable [phone] Encounter Details Date Type Department Care Team (Late st Contact Info) Description 03/30/2022 8:15 AM LITIGATION ATTORNEY ASSOCIATE - 03/30/2022 11:59 PM LITIGATION ATTORNEY ASSOCIATE Hospital Encounter [facility] [address] [place] [address] Graciela Rodriguez, AGRICULTURAL PRODUCE PACKER [address] [place] [address] Discharge Disposition: Home or Self [...] suspected to have Coronavirus/COVID-19? No / Unsure 04/13/2022 12:32 PM LITIGATION ATTORNEY ASSOCIATE documented as of this encounter Medications at [...] Progress Notes * Denisse Michel RN - 03/30/2022 8:30 AM CSTEncounter addended by: Denisse Michel RN on: 03/30/2022 3:02 PM Actions taken: MAR administration accepted GATION ATTORNEY ASSOCIATE documented in this encounter Plan of Treatment [...] 5 mL, Topical, Once, 1 dose, On Tue03/30/22 at 1100Indications:Diabetic ulcer of left heel associated with type 2 diabetes mellitus, 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 (CMS/HCC HHS/HCC) Given 03/30/2022 11:00 AM LITIGATION ATTORNEY ASSOCIATE 5 mLs documented in this encounter Care Teams Talent Scout Relationship Specialty Start Date End Date Dominic Recinos MD [address] [place] [address] PCP - General INTERNAL MEDICINE 09/18/21 Bonilla Anton MD [address] [place] [address] Consulting Physician INTERNAL MEDICINE 10/16/21 Celso Haro DO [address] [place] [address] INTERNAL MEDICINE 10/16/21 Evan Olivarez DPM [address] [place] [address] [place] [address] Consulting Physician PODIATRY/SURGERY 12/07/21 12/07/22 documented as of this encounter
--- OUTSIDE RECORDS SUMMARY | 2024-02-23 13:08 | XMS_ITS | Encounter Summary ---
Author Organization [facility] Address [facility]. [place], [place] [address] [place] [address] Care Team Providers Care Securities Lending Trader Name Role Phone Dominic Recinos MD Primary Care Provider [phone] Bonilla Anton MD Unavailable Celso Haro DO Unavailable Evan Olivarez DPM Unavailable [phone] Encounter Details Date Type Department Care Team (Latest Contact Info) Description 02/08/2022 Travel Social History Tobacco Use Types Packs/Day [...] Coronavirus/COVID-19? No / Unsure 02/08/2022 8:00 AM WORKCELL OPERATOR documented as of this encounter Plan of Treatment Not on file documented as of this encounter Visit Diagnoses Not on filedocumented in this encounter Care Teams Securities Lending Trader Relationship Specialty Start Date End Date Dominic Recinos MD [address] [place] [address] PCP - General INTERNAL MEDICINE 09/18/21 Bonilla Anton MD [address] [place] [address] Consulting Physician INTERNAL MEDICINE 10/16/21 Celso Haro DO [address] [place], [place] [id number] INTERNAL MEDICINE 10/16/21 Evan Olivarez DPM [address] [place] [address] Consulting Physician PODIATRY/SURGERY 12/07/21 12/07/22 documented as of this encounter
--- OUTSIDE RECORDS SUMMARY | 2024-02-23 13:08 | XMS_ITS | Encounter Summary ---
Author Organization [facility] Address [facility]6 [facility]. [place], [place] [address] [place] [address] Care Team Providers Care Director Of Teaching And Learning Name Role Phone Dominic Recinos MD Primary Care Provider [phone] Bonilla Anton MD Unavailable Celso Haro DO Unavailable Evan Olivarez DPM Unavailable [phone] Encounter Details Date Type Department Care Team (Latest Contact Info) Description 05/24/2022 Travel Social History Tobacco Use Types Packs/Day [...] suspected to have Coronavirus/COVID-19? No / Unsure 05/24/2022 7:40 AM CDT documented as of this encounter Plan of Treatment Not on file documented as of this encounter Visit Diagnoses Not on filedocumented in this encounter Care Teams Director Of Teaching And Learning Relationship Specialty Start Date End Date Dominic Recinos MD [address] [place] [address] PCP - General INTERNAL MEDICINE 09/18/21 Bonilla Anton MD [address] [place] [address] Consulting Physician INTERNAL MEDICINE 10/16/21 Celso Haro DO [address] [place] [address] INTERNAL MEDICINE 10/16/21 Evan Olivarez DPM [address] [place] [address] Consulting Physician PODIATRY/SURGERY 12/07/21 12/07/22 documented as of this encounter
--- OUTSIDE RECORDS SUMMARY | 2024-02-23 13:08 | XMS_ITS | Encounter Summary ---
Author Organization [facility] Address [facility]6 [facility]. [place], [place] [address] [place] [address] Care Team Providers Care Salesforce Consultant Name Role Phone Dominic Recinos MD Primary Care Provider [phone] Bonilla Anton MD Unavailable Celso Haro DO Unavailable Evan Olivarez DPM Unavailable [phone] Encounter Details Date Type Department Care Team (Latest Contact Info) Description 03/30/2022 Travel Social History Tobacco Use Types Packs/Day [...] suspected to have Coronavirus/COVID-19? No / Unsure 03/30/2022 8:13 AM PACK WORKER SUPERVISOR documented as of this encounter Plan of Treatment Not on file documented as of this encounter Visit Diagnoses Not on filedocumented in this encounter Care Teams Salesforce Consultant Relationship Specialty Start Date End Date Dominic Recinos MD [address] [place] [address] PCP - General INTERNAL MEDICINE 09/18/21 Bonilla Anton MD [address] [place] [address] Consulting Physician INTERNAL MEDICINE 10/16/21 Celso Haro DO [address] [place], [place] [phone] INTERNAL MEDICINE 10/16/21 Evan Olivarez DPM [address] [place] [address] Consulting Physician PODIATRY/SURGERY 12/07/21 12/07/22 documented as of this encounter
--- OUTSIDE RECORDS SUMMARY | 2024-02-23 13:08 | XMS_ITS | Encounter Summary ---
Author Organization [facility] Address [address] [place] [address]. [place], [place] [address] [place] [address] Care Team Providers Care Software Support Engineer Name Role Phone Dominic Recinos MD Primary Care Provider [phone] Bonilla Anton MD Unavailable Celso Haro DO Unavailable Evan Olivarez DPM Unavailable [phone] Encounter Details Date Type Department Care Team (Late st Contact Info) Description 01/25/2022 7:51 AM CARTON REPAIRER - 01/25/2022 11:59 PM CARTON REPAIRER Hospital Encounter [facility] [address] [place] [address] Graciela Rodriguez, BEAN SPROUT LABORER [address] [place] [address] Discharge Disposition: Home or Self [...] Coronavirus/COVID-19? No / Unsure 02/15/2022 7:43 AM CARTON REPAIRER documented as of this encounter Medications at [...] Progress Notes * Nieves Lowry RN - 01/25/2022 8:00 AM CSTEncounter addended by: Nieves Lowry RN on: 01/25/2022 8:57 AM Actions taken: MAR administration accepted ON REPAIRER documented in this encounter Plan of Treatment [...] 5 mL, Topical, Once, 1 dose, On Tue01/25/22 at 0915Indications:Ulcer of left lower extremity with fat layer exposed (CMS/HCC HHS/HCC) Given 01/25/2022 8:00 AM CARTON REPAIRER 5 mLs documented in this encounter Care Teams Software Support Engineer Relationship Specialty Start Date End Date Dominic Recinos MD [address] [place] [address] PCP - General INTERNAL MEDICINE 09/18/21 Bonilla Anton MD [address] [place] [address] Consulting Physician INTERNAL MEDICINE 10/16/21 Celso Haro DO [address] [facility] [address] [place] [address] INTERNAL MEDICINE 10/16/21 Evan Olivarez DPM [address] [facility] [place] [address] Consulting Physician PODIATRY/SURGERY 12/07/21 12/07/22 documented as of this encounter
--- OUTSIDE RECORDS SUMMARY | 2024-02-23 13:08 | XMS_ITS | Encounter Summary ---
Author Organization [facility] Address [address] [place] [address]. [place], [place] [id number] [place] [address] Care Team Providers Care Construction Technician Name Role Phone Dominic Recinos MD Primary Care Provider [phone] Bonilla Anton MD Unavailable Celso Haro DO Unavailable Evan Olivarez DPM Unavailable [phone] Encounter Details Date Type Department Care Team (Late st Contact Info) Description 05/31/2022 7:40 AM CDT - 05/31/2022 11:59 PM CDT Hospital Encounter [facility] [address] [place] [address] Graciela Rodriguez, QUALIFIED CRAFT WORKER ELECTRICIAN [address] [place] [address] Discharge Disposition: Home or Self [...] Progress Notes * Nieves Lowry RN - 05/31/2022 8:00 AM CDTEncounter addended by: Nieves Lowry RN on: 05/31/2022 9:21 AM Actions taken: MAR administration accepted documented in this encounter Plan of Treatment Not on file documented as of this encounter Visit Diagnoses Diagnosis Ulcer of left lower extremity with fat layer exposed (CMS/HCC HHS/HCC)- Primary Diabetic ulcer of left heel associated with type 2 diabetes mellitus, limited to breakdown of skin (CMS/HCC HHS/HCC) documented in this encounter Administered Medications Inactive Administered Medications - up to 3 most recent administrations Medication Order MAR Action Action Date Dose Rate Site lidocaine (XYLOCAINE) 2 % jelly 5 mL 5 mL, Topical, Once, 1 dose, On Tue05/31/22 at 0845Indications:Ulcer of left lower extremity with fat layer exposed (CMS/HCC HHS/HCC),Diabetic ulcer of left heel associated with type 2 diabetes mellitus, limited to breakdown of skin (CMS/HCC HHS/HCC) Given 05/31/2022 8:10 AM CDT 5 mLs documented in this encounter Care Teams Construction Technician Relationship Specialty Start Date End Date Dominic Recinos MD [address] [place] [address] PCP - General INTERNAL MEDICINE 09/18/21 Bonilla Anton MD [address] [place] [address] Consulting Physician INTERNAL MEDICINE 10/16/21 Celso Haro DO [address] [place] [address] INTERNAL MEDICINE 10/16/21 Evan Olivarez DPM [address] [facility] [place] [address] Consulting Physician PODIATRY/SURGERY 12/07/21 12/07/22 documented as of this encounter
--- OUTSIDE RECORDS SUMMARY | 2024-02-23 13:08 | XMS_ITS | Encounter Summary ---
Author Organization [facility] Address [address] [place] [address]. [place], [place] [id number] [place] [address] Care Team Providers Care Holistic Specialist Name Role Phone Dominic Recinos MD Primary Care Provider [phone] Bonilla Anton MD Unavailable Celso Haro DO Unavailable Evan Olivarez DPM Unavailable [phone] Encounter Details Date Type Department Care Team (Late st Contact Info) Description 05/10/2022 7:53 AM MEMS DEVICE SCIENTIST - 05/10/2022 11:59 PM MEMS DEVICE SCIENTIST Hospital Encounter [facility] [address] [place] [address] Graciela Rodriguez, BOAT OUTFITTER [address] [place] [address] Discharge Disposition: Home or Self [...] Coronavirus/COVID-19? No / Unsure 05/10/2022 7:46 AM MEMS DEVICE SCIENTIST documented as of this encounter Medications at [...] on filedocumented in this encounter Care Teams Holistic Specialist Relationship Specialty Start Date End Date Dominic Recinos MD [address] [place] [address] PCP - General INTERNAL MEDICINE 09/18/21 Bonilla Anton MD [address] [place] [address] Consulting Physician INTERNAL MEDICINE 10/16/21 Celso Haro DO [address] [facility] [address] [place], [place] [id number] INTERNAL MEDICINE 10/16/21 Evan Olivarez DPM [address] [facility] [place] [address] Consulting Physician PODIATRY/SURGERY 12/07/21 12/07/22 documented as of this encounter
--- OUTSIDE RECORDS SUMMARY | 2024-02-23 13:08 | XMS_ITS | Encounter Summary ---
Author Organization [facility] Address [facility]. [place], [place] [id number] [place] [address] Care Team Providers Care Sas Programmer Analyst Name Role Phone Dominic Recinos MD Primary Care Provider [phone] Bonilla Anton MD Unavailable Celso Haro DO Unavailable Evan Olivarez DPM Unavailable [phone] Encounter Details Date Type Department Care Team (Latest Contact Info) Description 04/13/2022 Travel Social History Tobacco Use Types Packs/Day [...] Coronavirus/COVID-19? No / Unsure 04/13/2022 12:32 PM TELEGRAPH INSPECTOR documented as of this encounter Plan of Treatment Not on file documented as of this encounter Visit Diagnoses Not on filedocumented in this encounter Care Teams Sas Programmer Analyst Relationship Specialty Start Date End Date Dominic Recinos MD [address] [place] [address] PCP - General INTERNAL MEDICINE 09/18/21 Bonilla Anton MD [address] [place] [address] Consulting Physician INTERNAL MEDICINE 10/16/21 Celso Haro DO [address] [place], [place] [phone] INTERNAL MEDICINE 10/16/21 Evan Olivarez DPM [address] [place] [address] Consulting Physician PODIATRY/SURGERY 12/07/21 12/07/22 documented as of this encounter
--- OUTSIDE RECORDS SUMMARY | 2024-02-23 13:09 | XMS_ITS | Encounter Summary ---
Author Organization [facility] Address [address] [place] [address]. [place], [place] [address] [place] [address] Care Team Providers Care Wellness Consultant Name Role Phone Dominic Recinos MD Primary Care Provider [phone] Bonilla Anton MD Unavailable Celso Haro DO Unavailable Encounter Details Date Type Department Care Team (Latest Contact Info) Description 11/10/2021 Travel Social History Tobacco Use Types Packs/Day [...] suspected to have Coronavirus/COVID-19? No / Unsure 11/10/2021 12:34 PM CDT documented as of this encounter Plan of Treatment Not on file documented as of this encounter Visit Diagnoses Not on filedocumented in this encounter Care Teams Wellness Consultant Relationship Specialty Start Date End Date Dominic Recinos MD [address] [place] [id number] PCP - General INTERNAL MEDICINE 09/18/21 Bonilla Anton MD [address] [place] [address] Consulting Physician INTERNAL MEDICINE 10/16/21 Celso Haro DO [address] [facility] [address] [place] [address] INTERNAL MEDICINE 10/16/21 documented as of this encounter
--- OUTSIDE RECORDS SUMMARY | 2024-02-23 13:09 | XMS_ITS | Encounter Summary ---
Author Organization [facility] Address [address] [place] [address]. [place] [address] [place] [address] Care Team Providers Care Airbrush Painter Name Role Phone Nathan Nixon MD Primary Care Provider [phone] Bonilla Anton MD Unavailable Celso Haro DO Unavailable Evan Olivarez DPM Unavailable [phone] Reason for Visit * Reason Comments Follow Up PAD Encounter Details Date Type Department Care Team (Late st Contact Info) Description 12/08/2021 2:00 PM CDT Office Visit [facility] [place] [address] Bonilla Anton MD [address] [place] [address] Follow Up (PAD) Social History Tobacco Use Types Packs/Day Years [...] suspected to have Coronavirus/COVID-19? No / Unsure 12/08/2021 1:24 PM CDT documented as of this encounter Last Filed Vital Signs Vital Sign Reading Time Taken Comments Blood Pressure 127/74 12/08/2021 1:31 PM CDT Pulse 64 12/08/2021 1:31 PM CDT Temperature - - Respiratory Rate 16 12/08/2021 1:31 PM CDT Oxygen Saturation - - Inhaled Oxygen Concentration - - Weight 112.4 kg (247 lb 12.8 oz) 12/08/2021 1:31 PM CDT Height 172.7 cm (5' 8 ) 12/08/2021 1:31 PM CDT Body Mass Index 37.68 12/08/2021 1:31 PM CDT documented in this encounter Progress Notes * Bonilla Anton MD - 12/08/2021 2:00 PM CDT Reason for Visit: Follow Up (PAD) History of Present Illness: 71-year-old male whose cardiovascular history consists of: 1. Left heel wound/DFU. 2. PAD. 3. CAD-CABG. 4. Hypertension. 5. Hyperlipidemia. 6. Atrial fibrillation - Coumadin. Patient's heel wound is improving. Pictures reviewed with wound center. Bleeding well on debridements. CTA noted mild to moderate narrowing from an ulcerated plaque in right common iliac artery with some disease in right distal SFA. No significant disease noted. ASSESSMENT AND PLAN: 1. Left heel wound/DFU. [...] He follows with an [facility] at [place] and will defer to them. 4. Atrial fibrillation - Coumadin, will defer to them. 5. Hypertension. Blood pressure is decently well controlled. 6. Hyperlipidemia. He is on statins, would recommend goal LDL less than 70 mg/dL. Follow up in 3 months. Medications: Current Outpatient Medications: ??? acetaminophen-codeine (TYLENOL #3) 300-30 MG tablet, Take 1 tablet by mouth every 8 (eight) hours as needed for Pain., Disp: , Rfl: ??? albuterol sulfate HFA 108 (90 Base) MCG/ACT inhaler, Inhale 2 puffs into the lungs every 4 (four) hours as needed for Wheezing., Disp: , Rfl: ??? diazePAM (VALIUM) 10 MG tablet, Take 10 mg by mouth 3 (three) times a day., Disp: , Rfl: ??? furosemide (LASIX) 40 MG tablet, Take 40 mg by mouth daily., Disp: , Rfl: ??? gabapentin (NEURONTIN) 300 MG capsule, Take 300 mg by mouth 3 (three) times daily., Disp: , Rfl: ??? glyBURIDE-metFORMIN (GLUCOVANCE) 5-500 MG tablet, Take 1 tablet by mouth 2 (two) times daily with meals., Disp: , Rfl: ??? hydroCHLOROthiazide (HYDRODIURIL) 25 MG tablet, Take 25 mg by mouth every morning., Disp: , Rfl: ??? insulin lispro, 1 Unit Dial, (HUMALOG) 100 UNIT/ML injection (PEN), INJECT 10 UNITS SUBCUTANEOUSLY WITH BREAKFAST, 20 UNITS WITH LUNCH, AND 30 UNITS WITH SUPPER, Disp: , Rfl: ? ? insulin NPH isophane & regular (HUMULIN 70/30 KWIKPEN) (70-30) 100 UNIT/ML injection (pen),Inject 60 Units into the skin 2 (two) times daily before meals., Disp: , Rfl: ??? lisinopril (PRINIVIL) 20 MG tablet, Take 20 mg by mouth daily., Disp: , Rfl: ??? oxybutynin (DITROPAN) 5 MG tablet, Take 5 mg by mouth 2 (two) times daily., Disp: , Rfl: ??? potassium chloride CR 20 MEQ Tab CR tablet, , Disp: , Rfl: ??? rosuvastatin (CRESTOR) 10 MG tablet, Take 10 mg by mouth daily., Disp: , Rfl: ??? warfarin (COUMADIN) 1 MG tablet, Take 0.5 mg by mouth daily. Indications: take along with 5 mg tablet to make 5.5 mg daily, Disp: , Rfl: ??? warfarin (COUMADIN) 2 MG tablet, Take 2 mg by mouth daily. Indications: take 2 and 1/2 tablets by mouth on Tuesday and Tuesday and 2 tablets every other day of the week, Disp: , Rfl: ??? warfarin (COUMADIN) 5 MG tablet, Take 5 mg by mouth daily., Disp: , Rfl: Allergies Allergen Reactions ??? Morphine Unknown, Hallucinations and Other (see comment) Not specified Past Medical History: Diagnosis Date ??? Atherosclerosis of coronary artery bypass graft(s) without angina pectoris ??? Atrial fibrillation (CMS/HCC) ??? Body mass index (BMI) 37.0-37.9, adult ??? CAD (coronary artery disease), autologous vein bypass graft ??? Chronic fatigue ??? Chronic kidney disease, stage 2 (mild) ??? Chronic venous hypertension (idiopathic) with ulcer and inflammation of left lower extremity (CMS/HCC) ??? Edema ??? Erectile dysfunction due to diseases classified elsewhere ??? Essential (primary) hypertension ??? Generalized anxiety disorder ??? Mixed hyperlipidemia ??? Non-pressure chronic ulcer of other part of left foot with bone involvement without evidence ofnecrosis (CMS/HCC) ??? Obesity, unspecified ??? Obstructive sleep apnea (adult) (pediatric) ??? Presence of cardiac pacemaker ??? PVD (peripheral vascular disease) (CMS/HCC) ??? Type 2 diabetes mellitus with diabetic neuropathy (CMS/HCC) Past Surgical History: Procedure Laterality Date ??? ANKLE SURGERY Left surgical reduction, internal fixation ??? CABG, ARTERY-VEIN, FOUR 2004 ??? PACEMAKER 2016 Social History Tobacco Use ??? Smoking status: Never Smoker ??? Smokeless tobacco: Current User Substance Use Topics ??? Alcohol use: Yes Family History Problem Relation Name Age of Onset ??? Coronary artery disease Father ??? Diabetes Father Family Status Relation Name Status ??? Father (Not Specified) Review of Systems Constitutional: Negative for recent unintentional weight gain and recent unintentional weight loss. HENT: Negative for new or significant hearing loss and headaches. Eyes: Negative for blurred vision and double vision. Respiratory: Negative for cough and wheezing. Cardiovascular: Positive for slow healing cuts/wounds.Negative for chest pain and palpitations. Gastrointestinal: Negative for heartburn and nausea. Genitourinary: Negative for dysuria and hematuria. Musculoskeletal: Negative for myalgias. Skin: Negative for rash. Neurological: Negative for dizziness. Endo/Heme/Allergies: Negative for new or significant bruising/bleeding. Psychiatric/Behavioral: Negative for depression. Vitals: 12/08/21 1331 BP: 127/74 BP Location: Left arm Pulse: 64 Weight: 112.4 kg (247 lb 12.8 oz) Height: 5' 8 (1.727 m) Body mass index is 37.68 kg/m??. Cardiac Exam Rate/Rhythm: Normal rate and regular rhythm. PMI: PMI is not displaced. Pulses: Normal pulses. Femoral pulses are 2+ on the right side and 2+ on the left side. Heart Sounds: Normal heart sounds. Normal S1 sounds. Normal S2 sounds. No gallop present. No S3. NoS4. Murmurs: Edema left: 1+. Edema Right: 1+. Physical Exam Constitutional: No distress. Healthy Appearance. HENT: Oropharynx clear. Eyes: Pupils equal, round, and reactive to light. Conjunctivae normal. Neck: Neck supple. No JVD. Abdomen: Abdomen soft. Bowel sounds normal. No tenderness. No mass. No hepatomegaly. No splenomegaly. Abdominal aorta not palpably enlarged. No abdominal bruit present. Pulmonary: Effort normal. Breath sounds normal. Skin: No rash. No cyanosis. No clubbing. No xanthoma. Musculoskeletal: No kyphosis. Normal ROM. Neurological: Alert. Oriented x 3. Appropriate mood and affect. Normal motor skills. Normal gait. Comments: Wounds noted in left heel with 1 superficial and 1 deeper with deeper wound seems to improving towards calcaneum. Diagnoses/Impression: 1. Ulcer of left lower extremity with fat layer exposed (CMS/HCC) 2. PAD (peripheral artery disease) ([facility]) Referring Provider: No ref. provider found PCP: NATHAN NIXON MD documented in this encounter Plan of Treatment Not on file documented as of this encounter Visit Diagnoses Diagnosis Ulcer of left lower extremity with fat layer exposed (CMS/HCC [facility]/HCC)- Primary PAD (peripheral artery disease) (CMS/HCC) Peripheral vascular disease, unspecified documented in this encounter Care Teams Airbrush Painter Relationship Specialty Start Date End Date Nathan Nixon MD [address] [place] [address] PCP - General INTERNAL MEDICINE 09/18/21 Bonilla Anton MD [address] [place] [address] Consulting Physician INTERNAL MEDICINE 10/16/21 Celso Haro DO [address] [facility] [address] [place] [address] INTERNAL MEDICINE 10/16/21 Evan Olivarez DPM [address] [facility] [address] Consulting Physician PODIATRY/SURGERY 12/07/21 12/07/22 documented as of this encounter
--- OUTSIDE RECORDS SUMMARY | 2024-02-23 13:09 | XMS_ITS | Encounter Summary ---
Author Organization [facility] Address [address] [place] [address]. [place], [place] [address] [place] [address] Care Team Providers Care Repairer Screen Crusher Name Role Phone Dominic Nixon MD Primary Care Provider [phone] Bonilla Linda MD Unavailable Celso Haro DO Unavailable Reason for Referral * Imaging (Routine) - Closed Specialty Diagnoses / Procedures Referred By Contac t Referred To Contact RADIOLOGY Diagnoses Hyperlipidemia, mixed PAD (peripheral artery disease) ([facility]/HCC) Procedures CTA AORTO ILIOFEM RUNOFF Bonilla Linda MD [address] [place] [address] Phone: tel: fax: Referral ID Status Reason Start Date Expiration Date Visits Re quested Visits Authorized [id number] Closed 11/10/2021 12/11/2022 1 1 Reason for Visit * Reason Comments Consult * Consultation (Routine) - Closed Specialty Diagnoses / Procedures Referred By Contac t Referred To Contact Cardiology Diagnoses Peripheral vascular disease ([facility]/HCC) Procedures OFFICE/OUTPT VISIT,NEW,LEVL III OFFICE/OUTPT VISIT,NEW,LEVL IV OFFICE/OUTPT VISIT,NEW,LEVL V OFFICE/OUTPT VISIT,EST,LEVL III OFFICE/OUTPT VISIT,EST,LEVL IV OFFICE/OUTPT VISIT,EST,LEVL V Graciela Rodriguez, TELEVISION NEWS PHOTOGRAPHER [address] [place] [address] Phone: tel: fax: Bonilla Linda MD [address] [place] [address] Phone: tel: fax: Referral ID Status Reason Start Date Expiration Date V isits Requested Visits Authorized [id number] Closed Specialty Services 10/15/2021 10/15/2022 1 1 Encounter Details Date Type Department Care Team (Late st Contact Info) Description 11/10/2021 2:15 PM CDT Office Visit [facility] [address] [place] [phone] Bonilla Linda MD [address] [place], [place] [address] Consult Social History Tobacco Use Types Packs/Day Years [...] Sign Reading Time Taken Comments Blood Pressure 117/63 11/10/2021 2:18 PM CDT Pulse 67 11/10/2021 2:18 PM CDT Temperature - - Respiratory Rate 15 11/10/2021 2:18 PM CDT Oxygen Saturation 100% 11/10/2021 2:18 PM CDT Inhaled Oxygen Concentration - - Weight 112.9 kg (248 lb 12.8 oz) 11/10/2021 2:18 PM CDT Height 172.7 cm (5' 8 ) 11/10/2021 2:18 PM CDT Body Mass Index 37.83 11/10/2021 2:18 PM CDT documented in this encounter Progress Notes * Bonilla Linda MD - 11/10/2021 2:15 PM CDT Reason for Visit: Consult History of Present Illness: 71-year-old male who has been referred to me by wound center. The patient's cardiovascular history consists of, 1. Left heel wound. 2. CAD-CABG. 3. Hypertension. 4. Hyperlipidemia. 5. Atrial fibrillation - Coumadin. The patient tells me that he has had wound in his left heel for the last 2-3 months. One of the 2 wounds at the heel seems to be probing to the bone. His MRI is pending and supposed to be in 1 day. He does have good exercise tolerance and could walk up until a couple of months of good distance. He had recent ABIs, we noted right ANSON is 1.6 with toe pressure 73 mmHg and left ANSON is noncompressible with toe pressure of 32 mmHg. ASSESSMENT AND PLAN: 1. Left heel ulcer. I suspect PAD based on toe pressure of 32 mmHg. Will go ahead and get CT aorta with runoff. He has an MRI pending. His wound cultures have been done. Levaquin would be a better choice given his wound cultures. He will need to have ID evaluation, possibly PICC line depending on what all comes up on MRI. We will get CT aorta with runoff and proceed. 2. CAD-CABG. He follows with an [facility] at [place] and will defer to them. 3. Atrial fibrillation - Coumadin, will defer to them. 4. Hypertension. Blood pressure is decently well controlled. 5. Hyperlipidemia. He is on statins, would recommend goal LDL less than 70 mg/dL. Thank you very much. Follow up in 1 month or so with CT aorta with runoff. Meanwhile, will follow on MRI as well. #[id number] /[id number] Addendum: Wound examined at the wound center. Cultures noted along with wound probing to bone. MRI pending. Antibiotics changed according to cultures. Medications: Current Outpatient Medications: ??? albuterol sulfate HFA 108 (90 Base) [...] 3 (three) times daily., Disp: , Rfl: ? ? insulin NPH [...] Disp: , Rfl: ??? potassium chloride CR (KLOR-CON M) 20 MEQ tablet, Take 20 mEq by mouth daily., Disp: , Rfl: ??? rosuvastatin (CRESTOR) 10 [...] by mouth daily., Disp: , Rfl: ??? acetaminophen-codeine (TYLENOL #3) 300-30 MG tablet, Take 1 tablet by mouth every 8 (eight) hours as needed for Pain., Disp: , Rfl: ??? cephALEXin (KEFLEX) 500 MG capsule, Take 1 capsule (500 mg total) by mouth 3 (three) times daily for 10 days., Disp: 30 capsule, Rfl: 0 ??? glyBURIDE-metFORMIN (GLUCOVANCE) 5-500 MG tablet, Take 1 tablet by mouth 2 (two) times daily with meals., Disp: , Rfl: ??? hydroCHLOROthiazide (HYDRODIURIL) 25 MG tablet, Take 25 mg by mouth every morning., Disp: , Rfl: No current facility-administered medications for this visit. Facility-Administered Medications Ordered in Other Visits: ??? lidocaine (XYLOCAINE) 2 % jelly 5 mL, 5 mL, Topical, Once, Graciela Rodriguez NP Allergies Allergen Reactions ??? Morphine Unknown Past Medical History: Diagnosis Date ??? Atherosclerosis [...] significant bruising/bleeding. Psychiatric/Behavioral: Negative for depression. Vitals: 11/10/21 1418 BP: 117/63 BP Location: Left arm Pulse: 67 Weight: 112.9 kg (248 lb 12.8 oz) Height: 5' 8 (1.727 m) Body mass index is 37.83 kg/m??. Cardiac Exam Rate/Rhythm: Normal rate and [...] seems to improving towards calcaneum. Diagnoses/Impression: 1. PAD (peripheral artery disease) (CMS/HCC) CTA AORTO ILIOFEM RUNOFF 2. Ulcer of left lower extremity with fat layer exposed (CMS/HCC) 3. Hyperlipidemia, mixed CTA AORTO ILIOFEM RUNOFF Referring Provider: Graciela Rodriguez NP PCP: DOMINIC NIXON MD documented in this encounter Plan of Treatment Not on file documented as of this encounter Results * CTA AORTO ILIOFEM RUNOFF (11/19/2021 12:03 PM CDT) Anatomical Region Laterality Modality Abdomen, Pelvis, Extremity Compu jayson Tomography 11/23/2021 8:44 AM CDT Addenda Addendum by Aston Estevez MD on 11/23/2021 10:59 AM CDT Addendum: Revised Impression Significant finding regarding severe proximal SMA stenosis was inadvertently not included under the original Impression. The following is the revised Impression: IMPRESSION: 1. Right common iliac ulcerated plaque noted with resultant mild to moderate luminal narrowing. No high-grade stenosis. Right external iliac patent. 2. Mild to moderate calcified plaque distal right SFA with no high-grade stenosis. Three-vessel runoff distally with mild tibial disease. 3. No significant left iliac stenosis. 4. Mild left femoral-popliteal plaque with no high-grade stenosis. Three-vessel runoff distally with mild tibial disease. 5. Hyperemia noted involving the left lower leg and ankle region, particularly the heel pad region suggestive of cellulitis. No changes of osteomyelitis visualized involving the underlying calcaneus. Residual posttraumatic deformity of the left ankle with associated significant arthritic and fragmentation changes as per recent MRI. 6. Severe proximal SMA stenosis. Ordered By: BONILLA LINDA Interpreted By: Aston Estevez MD, 11/23/2021 10:56 AM Impressions 11/23/2021 9:40 AM CDT IMPRESSION: 1. Right common iliac ulcerated plaque noted with resultant mild to moderate luminal narrowing. No high-grade stenosis. Right external iliac patent. 2. Mild to moderate calcified plaque distal right SFA with no high-grade stenosis. Three-vessel runoff distally with mild tibial disease. 3. No significant left iliac stenosis. 4. Mild left femoral-popliteal plaque with no high-grade stenosis. Three-vessel runoff distally with mild tibial disease. 5. Hyperemia noted involving the left lower leg and ankle region, particularly the heel pad region suggestive of cellulitis. No changes of osteomyelitis visualized involving the underlying calcaneus. Residual posttraumatic deformity of the left ankle with associated significant arthritic and fragmentation changes as per recent MRI. Ordered By: BONILLA LINDA Interpreted By: Aston Estevez MD, 11/23/2021 8:44 AM Narrative 11/23/2021 9:40 AM CDT EXAMINATION: CTA ABDOMINAL AORTA WITH RUNOFF CLINICAL HISTORY: PVD. Left heel wound. The ANSON noncompressible with decreased toe pressure of 32 mmHg. COMPARISON: ABIs 10/08/2021 MRI left foot and ankle 11/12/2021. TECHNIQUE: Computed tomography angiography was performed of the abdominal aorta and lower extremities during uneventful intravenous contrast administration of 130 mL Isovue-370 according to CTA runoff protocol additional 3-D volume rendered and MIP reconstructions images obtained. ?? A dose lowering technique was used for this procedure, which may include, but is not limited to, dose reduction technique, automated exposure control, the use of iterative reconstruction, and ALARA (As Low As Reasonably Achievable) / Image Gently techniques. FINDINGS: VASCULAR FINDINGS: Abdominal aorta: Mild infrarenal atherosclerotic changes. No aneurysmal dilatation. Celiac axis: No significant stenosis. Superior mesenteric artery: Severe stenosis proximal SMA due to soft and calcified plaque. Inferior mesenteric artery : ??Patent. Right renal artery: Single renal artery. No significant stenosis. Left renal artery: Single renal artery. No significant stenosis. RIGHT LEG RUNOFF: Common iliac: Ulcerated plaque proximal right common iliac artery with resultant intimal flap type appearance. This is causing some mild to moderate luminal narrowing.. Internal iliac: No significant stenosis. External iliac: No significant stenosis. Common femoral: No significant stenosis. Mild plaque. Profunda femoris: No significant stenosis Superficial femoral: Mild plaque proximal and mid SFA. Mild to moderate calcified plaque distal SFA, no high-grade stenosis. Popliteal artery: Diffuse mild plaque. No high-grade stenosis. Anterior tibial artery: Mild disease. No significant stenosis. Tibioperoneal trunk: No significant stenosis. Peroneal artery: Mild disease. No significant stenosis. Posterior tibial artery: Mild disease. No significant stenosis. LEFT LEG RUNOFF: Common iliac: Mild plaque. No significant stenosis. Internal iliac: No significant stenosis. External iliac: No significant stenosis. Common femoral: No significant stenosis. Profunda femoris: No significant stenosis. Superficial femoral: Mild plaque. No significant stenosis. Popliteal artery: No significant stenosis. Anterior tibial artery: Mild proximal disease. No high-grade stenosis. Continues into patent dorsalis pedis. Tibioperoneal trunk: No significant stenosis. Peroneal artery: No significant stenosis. Posterior tibial artery: No significant stenosis. Posterior tibial continues into plantar arch. NONVASCULAR FINDINGS: Images are degraded due to significant streak artifact from patient's arms. Visualized lung bases are clear of active disease. Calcified granuloma posterior left lower lobe. Poststernotomy changes. Mild cardiomegaly. Left-sided pacemaker noted. Liver, gallbladder, spleen, pancreas, left adrenal and kidneys demonstrate no acute abnormalities. 1.5 cm cyst arising off the lower pole of the right kidney. Probable incidental 2 cm right adrenal myelolipoma. No significant paraaortic adenopathy. No obstruction. Moderate colonic stool burden. No pelvic masses or adenopathy. No destructive bony abnormalities. Significant residual deformity is readily secondary to posttraumatic changes involving the left ankle with severe associated arthritic changes. There are metallic densities noted in the posterior distal tibia probably representing residual screw fragments or possible orthopedic anchors if there is been any previous tendon repair. Significant hyperemia noted around the lower calf and ankle region, particularly in the heel region with some early venous filling noted. Findings suggestive of cellulitis. No changes of osteomyelitis noted in the underlying calcaneus. Procedure Note Aston Estevez MD - 11/23/2021 EXAMINATION: CTA ABDOMINAL AORTA WITH RUNOFF CLINICAL HISTORY: PVD. Left heel wound. The ANSON noncompressible withdecreased toe pressure of 32 mmHg. COMPARISON: ABIs 10/08/2021 MRI left foot and ankle 11/12/2021. TECHNIQUE: Computed tomography angiography was performed of the abdominalaorta and lower extremities during uneventful intravenous contrastadministration of 130 mL Isovue-370 according to CTA runoff protocoladditional 3-D volume rendered and MIP reconstructions images obtained. A dose lowering technique was used for this procedure, which may include,but is not limited to, dose reduction technique, automated exposurecontrol, the use of iterative reconstruction, and ALARA (As Low AsReasonably Achievable) / Image Gently techniques. FINDINGS: VASCULAR FINDINGS: Abdominal aorta: Mild infrarenal atherosclerotic changes. No aneurysmaldilatation. Celiac axis: No significant stenosis. Superior mesenteric artery: Severe stenosis proximal SMA due to soft andcalcified plaque. Inferior mesenteric artery : Patent. Right renal artery: Single renal artery. No significant stenosis. Left renal artery: Single renal artery. No significant stenosis. RIGHT LEG RUNOFF: Common iliac: Ulcerated plaque proximal right common iliac artery withresultant intimal flap type appearance. This is causing some mild tomoderate luminal narrowing.. Internal iliac: No significant stenosis. External iliac: No significant stenosis. Common femoral: No significant stenosis. Mild plaque. Profunda femoris: No significant stenosis Superficial femoral: Mild plaque proximal and mid SFA. Mild to moderatecalcified plaque distal SFA, no high-grade stenosis. Popliteal artery: Diffuse mild plaque. No high-grade stenosis. Anterior tibial artery: Mild disease. No significant stenosis. Tibioperoneal trunk: No significant stenosis. Peroneal artery: Mild disease. No significant stenosis. Posterior tibial artery: Mild disease. No significant stenosis. LEFT LEG RUNOFF: Common iliac: Mild plaque. No significant stenosis. Internal iliac: No significant stenosis. External iliac: No significant stenosis. Common femoral: No significant stenosis. Profunda femoris: No significant stenosis. Superficial femoral: Mild plaque. No significant stenosis. Popliteal artery: No significant stenosis. Anterior tibial artery: Mild proximal disease. No high-grade stenosis.Continues into patent dorsalis pedis. Tibioperoneal trunk: No significant stenosis. Peroneal artery: No significant stenosis. Posterior tibial artery: No significant stenosis. Posterior tibialcontinues into plantar arch. NONVASCULAR FINDINGS: Images are degraded due to significant streak artifact from patient'sarms. Visualized lung bases are clear of active disease. Calcified granulomaposterior left lower lobe. Poststernotomy changes. Mild cardiomegaly.Left-sided pacemaker noted. Liver, gallbladder, spleen, pancreas, left adrenal and kidneys demonstrateno acute abnormalities. 1.5 cm cyst arising off the lower pole of theright kidney. Probable incidental 2 cm right adrenal myelolipoma. Nosignificant paraaortic adenopathy. No obstruction. Moderate colonic stoolburden. No pelvic masses or adenopathy. No destructive bony abnormalities. Significant residual deformity isreadily secondary to posttraumatic changes involving the left ankle withsevere associated arthritic changes. There are metallic densities noted inthe posterior distal tibia probably representing residual screw fragmentsor possible orthopedic anchors if there is been any previous tendonrepair. Significant hyperemia noted around the lower calf and ankleregion, particularly in the heel region with some early venous fillingnoted. Findings suggestive of cellulitis. No changes of osteomyelitisnoted in the underlying calcaneus. IMPRESSION: 1. Right common iliac ulcerated plaque noted with resultant mild tomoderate luminal narrowing. No high-grade stenosis. Right external iliacpatent. 2. Mild to moderate calcified plaque distal right SFA with no high- gradestenosis. Three-vessel runoff distally with mild tibial disease. 3. No significant left iliac stenosis. 4. Mild left femoral-popliteal plaque with no high-grade stenosis.Three-vessel runoff distally with mild tibial disease. 5. Hyperemia noted involving the left lower leg and ankle region,particularly the heel pad region suggestive of cellulitis. No changes ofosteomyelitis visualized involving the underlying calcaneus. Residualposttraumatic deformity of the left ankle with associated significantarthritic and fragmentation changes as per recent MRI. Ordered By: BONILLA LINDA Interpreted By: Aston Estevez MD, 11/23/2021 8:44 AM Bonilla Linda MD CT Edited Result - Final documented in this encounter Visit Diagnoses Diagnosis PAD (peripheral artery disease) ([facility]/HCC)- Primary Peripheral vascular disease, unspecified Ulcer of left lower extremity with fat layer exposed ([facility]/HCC [facility]/HCC) Hyperlipidemia, mixed Mixed hyperlipidemia Hyperlipidemia, mixed Mixed hyperlipidemia PAD (peripheral artery disease) ([facility]) Peripheral vascular disease, unspecified documented in this encounter Care Teams Repairer Screen Crusher Relationship Specialty Start Date End Date Dominic Nixon MD [address] [place] [phone] PCP - General INTERNAL MEDICINE 09/18/21 Bonilla Linda MD [address] [place] [address] Consulting Physician INTERNAL MEDICINE 10/16/21 Celso Haro DO [address] [facility] [address] [place] [address] INTERNAL MEDICINE 10/16/21 documented as of this encounter
--- OUTSIDE RECORDS SUMMARY | 2024-02-23 13:09 | XMS_ITS | Encounter Summary ---
Author Organization [facility] Address [address] [place] [address]. [place], [place] [address] [place] [address] Care Team Providers Care Playground Worker Name Role Phone Dominic Recinos MD Primary Care Provider [phone] Bonilla Anton MD Unavailable Celso Haro DO Unavailable Encounter Details Date Type Department Care Team (Late st Contact Info) Description 10/26/2021 8:44 AM CDT - 10/26/2021 11:59 PM CDT Hospital Encounter [facility] [address] [place] [id number] Graciela Rodriguez, [facility] [address] [place] [address] Discharge Disposition: Home or Self Care (Routine [...] suspected to have Coronavirus/COVID-19? No / Unsure 10/26/2021 8:42 AM CDT documented as of this encounter Medications at Time of Discharge BD INSULIN SYRINGE U/F 31G X 5/16 0.5 ML Misc 2 (two) times daily. 06/30/2021 Blood Glucose Monitoring Suppl (ONE TOUCH ULTRA 2) w/Device Kit 1 strip by Does not apply route 2 (two) times daily. 09/08/2021 ULTICARE INSULIN SYRINGE 29G X 1/2 1 ML Misc USE TO INJECT INSULIN TWICE A DAY 06/17/2021 potassium chloride CR 20 MEQ Tab CR tablet 10/14/2021 022 documented as of this encounter Progress Notes * Nieves Lowry RN - 10/26/2021 9:00 AM CDTEncounter addended by: Nieves Lowry RN on: 10/26/2021 9:47 AM Actions taken: MAR administration accepted, Multistep and multistep collection tasks completed documented in this encounter Plan of Treatment Not on file documented as of this encounter Procedures Procedure Name Priority Date/Time Associated Diagnosis Comments HC BODY FLUID CULTURE Routine 10/26/2021 9:28 AM CDT Diabetic ulcer of left heel associated with type 2 diabetes mellitus, with necrosis of muscle ([facility]/HCC HHS/HCC) documented in this encounter Results * CULTURE, WOUND, W/GRAM STAIN (10/26/2021 9:28 AM CDT) SPEC DESCRIPTION FOOT,LEFT 10/26/2021 9:47 AM CDT [facility] SPECIAL REQUESTS NO SPECIAL REQUEST 10/26/2021 9:47 AM CDT [facility] GRAM STAIN RESULT NO WBC SEEN 10/26/2021 2:41 PM CDT [facility] GRAM STAIN RESULT RARE GRAM POSITIVE RODS 10/26/2021 2:41 PM CDT [facility] CULTURE RESULT FEW PSEUDOMONAS AERUGINOSA 10/29/2021 9:14 AM CDT [facility] CULTURE RESULT FEW PROTEUS MIRABILIS 10/29/2021 9:14 AM CDT [facility] CULTURE RESULT FEW ENTEROCOCCUS FAECALIS 10/29/2021 9:14 AM CDT [facility] STRUCTURE OF LEFT FOOT / Unknown 10/26/2021 9:28 AM CDT 10/26/2021 10:15 AM CDT Narrative Organism Antibiotic Method Susceptibility Pseudomonas aeruginosa [...] Sensitive Pseudomonas aeruginosa TOBRAMYCIN SADIA (KB) Sensitive Proteus mirabilis CEFAZOLIN SADIA (KB) Sensitive Proteus mirabilis TOBRAMYCIN SADIA (KB) Sensitive Proteus mirabilis AMPICILLIN SADIA (VITEK) Sensitive Proteus mirabilis AMOXICILLIN/CLAVULANIC A SADIA (VITEK) Sensitive Proteus mirabilis AZTREONAM SADIA (VITEK) Sensitive Proteus mirabilis CEFEPIME SADIA (VITEK) Sensitive Proteus mirabilis CEFTRIAXONE SADIA (VITEK) Sensitive Proteus mirabilis CIPROFLOXACIN SADIA (VITEK) Sensitive Proteus mirabilis ERTAPENEM SADIA (VITEK) Sensitive Proteus mirabilis GENTAMICIN SADIA (VITEK) Sensitive Proteus mirabilis IMIPENEM SADIA (VITEK) Resistant Proteus mirabilis LEVOFLOXACIN SADIA (VITEK) Sensitive Proteus mirabilis MEROPENEM SADIA (VITEK) Sensitive Proteus mirabilis PIPRACIL/TAZO SADIA (VITEK) Sensitive Proteus mirabilis TRIMETH-SULFAMETH. SADIA (VITEK) Sensitive Proteus mirabilis TETRACYCLINE SADIA (VITEK) Resistant Enterococcus faecalis AMPICILLIN SADIA (VITEK) Sensitive Enterococcus faecalis ERYTHROMYCIN SADIA (VITEK) Resistant Enterococcus faecalis GENT. SYNERGY SCREEN SADIA (VITEK) Sensitive Enterococcus faecalis LINEZOLID SADIA (VITEK) Sensitive Enterococcus faecalis PENICILLIN G SADIA (VITEK) Sensitive Enterococcus faecalis STR. SYNERGY SCR SADIA (VITEK) Sensitive Enterococcus faecalis TIGECYCLINE SADIA (VITEK) Sensitive Enterococcus faecalis VANCOMYCIN SADIA (VITEK) Sensitive us Graciela MARTINEZP MICROBIOLOGY - GENERAL ORDERAB LES Final Result [facility] [address] [place] [address], [place] [phone] [id number] [facility] [address] [place] [address], documented in this encounter Visit Diagnoses Diagnosis Diabetic ulcer of left heel associated with type 2 diabetes mellitus, with necrosis of muscle (CMS/HCC HHS/HCC)- Primary documented in this encounter Administered Medications Inactive Administered Medications - up to 3 most recent administrations Medication Order MAR Action Action Date Dose Rate Site lidocaine (XYLOCAINE) 2 % jelly 5 mL 5 mL, Topical, Once, 1 dose, On Tue10/26/21 at 0915Indications:Diabetic ulcer of left heel associated with type 2 diabetes mellitus, with necrosis of muscle (CMS/HCC HHS/HCC) Given 10/26/2021 9:10 AM CDT 5 mLs documented in this encounter Care Teams Playground Worker Relationship Specialty Start Date End Date Dominic Recinos MD [address] [place] [phone] PCP - General INTERNAL MEDICINE 09/18/21 Bonilla Anton MD [address] [place] [address] Consulting Physician INTERNAL MEDICINE 10/16/21 Celso Haro DO [address] [facility] [address] [place], [place] [id number] INTERNAL MEDICINE 10/16/21 documented as of this encounter
--- OUTSIDE RECORDS SUMMARY | 2024-02-23 13:09 | XMS_ITS | Encounter Summary ---
Author Organization [facility] Address [address] [place] [address]. [place], [place] [address] [place] [address] Care Team Providers Care Learning And Development Intern Name Role Phone Dominic Recinos MD Primary Care Provider [phone] Bonilla Anton MD Unavailable Celso Haro DO Unavailable Evan Olivarez DPM Unavailable [phone] Encounter Details Date Type Department Care Team (Late st Contact Info) Description 01/18/2022 8:00 AM CHAIR MAKER - 01/18/2022 11:59 PM CHAIR MAKER Hospital En[facility] [address] [place] [address] Graciela Rodriguez, ASSISTANT FIELD HOCKEY COACH [address] [place] [address] Discharge Disposition: Home or Self [...] suspected to have Coronavirus/COVID-19? No / Unsure 01/18/2022 7:54 AM CHAIR MAKER documented as of this encounter Medications at [...] tablets every other day of the week albuterol sulfate HFA 108 (90 Base) MCG/ACT inhaler Inhale 2 puffs into the lungs every 4 (four) hours as needed for Wheezing. 2 furosemide (LASIX) 40 MG tablet Take 40 mg by mouth daily. 2 insulin NPH isophane & regular (HUMULIN 70/30 KWIKPEN) (70-30) 100 UNIT/ML injection (pen) Inject 60 Units into the skin 2 (two) times daily before meals. 2 POST OP SHOE, DME,Indications :Post-operative state Apply 1 Device topically once for 1 dose. 1 Device 01/22/2022 2 potassium chloride CR 20 MEQ Tab CR tablet 10/14/2021 2 warfarin (COUMADIN) 5 MG tablet Take 5 mg by mouth daily. 2 documented as of this encounter Progress Notes * Nieves Lowry RN - 01/18/2022 8:00 AM CSTEncounter addended by: Nieves Lowry RN on: 01/18/2022 11:48 AM Actions taken: MAR administration accepted R MAKER documented in this encounter Plan of Treatment [...] 5 mL, Topical, Once, 1 dose, On Tue01/18/22 at 0945Indications:Ulcer of left lower extremity with fat layer exposed (CMS/HCC HHS/HCC) Given 01/18/2022 8:10 AM CHAIR MAKER 5 mLs documented in this encounter Care Teams Learning And Development Intern Relationship Specialty Start Date End Date Dominic Recinos MD [address] [place] [id number] PCP - General INTERNAL MEDICINE 09/18/21 Bonilla Anton MD [address] [place] [address] Consulting Physician INTERNAL MEDICINE 10/16/21 Celso Haro DO [address] [facility] [address] [place] [address] INTERNAL MEDICINE 10/16/21 Evan Olivarez DPM [address] [place] [address] Consulting Physician PODIATRY/SURGERY 12/07/21 12/07/22 documented as of this encounter
--- OUTSIDE RECORDS SUMMARY | 2024-02-23 13:09 | XMS_ITS | Encounter Summary ---
Author Organization [facility] Address [facility]. [place], [place] [address] [place] [address] Care Team Providers Care Lawn Care Specialist Name Role Phone Dominic Recinos MD Primary Care Provider [phone] Bonilla Anton MD Unavailable Celso Haro DO Unavailable Evan Olivarez DPM Unavailable [phone] Encounter Details Date Type Department Care Team (Latest Contact Info) Description 12/07/2021 Travel Social History Tobacco Use Types Packs/Day [...] suspected to have Coronavirus/COVID-19? No / Unsure 12/07/2021 8:53 AM CDT documented as of this encounter Plan of Treatment Not on file documented as of this encounter Visit Diagnoses Not on filedocumented in this encounter Care Teams Lawn Care Specialist Relationship Specialty Start Date End Date Dominic Recinos MD [address] [place] [address] PCP - General INTERNAL MEDICINE 09/18/21 Bonilla Atnon MD [address] [place] [address] Consulting Physician INTERNAL MEDICINE 10/16/21 Celso Haro DO [address] [place] [address] INTERNAL MEDICINE 10/16/21 Evan Olivarez DPM [address] [place] [address] Consulting Physician PODIATRY/SURGERY 12/07/21 12/07/22 documented as of this encounter
--- OUTSIDE RECORDS SUMMARY | 2024-02-23 13:09 | XMS_ITS | Encounter Summary ---
Author Organization [facility] Address [facility]. [place], [place] [address] [place] [address] Care Team Providers Care French Folding Machine Operator Name Role Phone Dominic Recinos MD Primary Care Provider [phone] Bonilla Anton MD Unavailable Celso Haro DO Unavailable Evan Olivarez DPM Unavailable [phone] Encounter Details Date Type Department Care Team (Latest Contact Info) Description 01/11/2022 Travel Social History Tobacco Use Types Packs/Day [...] suspected to have Coronavirus/COVID-19? No / Unsure 01/11/2022 8:21 AM SILK BRUSHER documented as of this encounter Plan of Treatment Not on file documented as of this encounter Visit Diagnoses Not on filedocumented in this encounter Care Teams French Folding Machine Operator Relationship Specialty Start Date End Date Dominic Recinos MD [address] [place] [address] PCP - General INTERNAL MEDICINE 09/18/21 Bonilla Anton MD [address] [place] [address] Consulting Physician INTERNAL MEDICINE 10/16/21 Celso Haro DO [address] [place], [place] [phone] INTERNAL MEDICINE 10/16/21 Evan Olivarez DPM [address] [place] [address] Consulting Physician PODIATRY/SURGERY 12/07/21 12/07/22 documented as of this encounter
--- OUTSIDE RECORDS SUMMARY | 2024-02-23 13:09 | XMS_ITS | Encounter Summary ---
Author Organization [facility] Address [address] [place] [address]. [place], [place] [address] [place] [address] Care Team Providers Care Java Sql Developer Name Role Phone Dominic Recinos MD Primary Care Provider [phone] Bonilla Anton MD Unavailable Celso Haro DO Unavailable Encounter Details Date Type Department Care Team (Latest Contact Info) Description 11/12/2021 Travel Social History Tobacco Use Types Packs/Day [...] suspected to have Coronavirus/COVID-19? No / Unsure 11/12/2021 8:30 AM CDT documented as of this encounter Plan of Treatment Not on file documented as of this encounter Visit Diagnoses Not on filedocumented in this encounter Care Teams Java Sql Developer Relationship Specialty Start Date End Date Dominic Recinos MD [address] [place] [phone] PCP - General INTERNAL MEDICINE 09/18/21 Bonilla Anton MD [address] [place] [address] Consulting Physician INTERNAL MEDICINE 10/16/21 Celso Haro DO [address] [facility] [address] [place] [address] INTERNAL MEDICINE 10/16/21 documented as of this encounter
--- OUTSIDE RECORDS SUMMARY | 2024-02-23 13:09 | XMS_ITS | Encounter Summary ---
Author Organization [facility] Address [address] [place] [address]. [place], [place] [address] [place] [address] Care Team Providers Care Postal Clerk Name Role Phone Dominic Recinos MD Primary Care Provider [phone] Bonilla Anton MD Unavailable Celso Haro DO Unavailable Encounter Details Date Type Department Care Team (Late st Contact Info) Description 11/10/2021 12:35 PM CDT - 11/10/2021 11:59 PM CDT Hospital Encounter [facility] [address] [place] [address] Graciela Rodriguez, [facility] [address] [place] [id number] Discharge Disposition: Home or Self Care (Routine [...] PM CDT documented as of this encounter Medications at Time of Discharge acetaminophen-cod eine (TYLENOL #3) 300-30 MG tablet Take 1 [...] mg by mouth 3 (three) times daily. glyBURIDE-metFORM IN (GLUCOVANCE) 5-500 MG tablet Take 1 tablet by mouth 2 (two) times daily with meals. hydroCHLOROthiazi de (HYDRODIURIL) 25 MG tablet Take 25 mg by mouth every morning. lisinopril (PRINIVIL) 20 MG tablet Take 20 mg by mouth daily. oxybutynin (DITROPAN) 5 MG tablet Take 5 mg by mouth 2 (two) times daily. rosuvastatin (CRESTOR) 10 MG tablet Take 10 mg by mouth daily. ULTICARE INSULIN SYRINGE 29G X 1/2 1 ML Misc USE TO INJECT INSULIN TWICE A DAY 06/17/2021 warfarin (COUMADIN) 1 MG tabletIndications :take along with 5 mg tablet to make 5.5 mg daily Take 0.5 mg by mouth daily. Indications: take along with 5 mg tablet to make 5.5 mg daily warfarin (COUMADIN) 2 MG tabletIndications :take 2 and 1/2 tablets by mouth on [...] 4 (four) hours as needed for Wheezing. 01/22/2022 cephALEXin (KEFLEX) 500 MG capsuleIndication s:Diabetic ulcer of left heel associated with type 2 diabetes mellitus, with necrosis of muscle (CMS/HCC HHS/HCC) Take 1 capsule (500 mg total) by mouth 3 (three) times daily for 10 days. 30 capsule 11/02/2021 11/12/2021 furosemide (LASIX) 40 MG tablet Take 40 mg by mouth daily. 01/22/2022 insulin NPH isophane & regular (HUMULIN 70/30 KWIKPEN) (70-30) 100 UNIT/ML injection (pen) Inject 60 Units into the skin 2 (two) times daily before meals. 01/22/2022 levoFLOXacin (LEVAQUIN) 500 MG tabletIndications :Diabetic ulcer of left heel associated with type 2 diabetes mellitus, with necrosis of muscle (CMS/HCC HHS/HCC) Take 1 tablet (500 mg total) by mouth daily for 10 days. 10 tablet 11/10/2021 11/20/2021 potassium chloride CR (KLOR-CON M) 20 MEQ tablet Take 20 mEq by mouth daily. 12/08/2021 potassium chloride CR 20 MEQ Tab CR tablet 10/14/2021 warfarin (COUMADIN) 5 MG tablet Take 5 mg by mouth daily. 01/22/2022 documented as of this encounter Progress Notes * Nieves Lowry RN - 11/10/2021 1:00 PM CDTEncounter addended by: Nieves Lowry RN on: 11/10/2021 3:24 PM Actions taken: MAR administration accepted documented in [...] 5 mL, Topical, Once, 1 dose, On Tue11/10/21 at 1315Indications:Diabetic ulcer of left heel associated with type 2 diabetes mellitus, with necrosis of muscle (CMS/HCC HHS/HCC) Given 11/10/2021 1:10 PM CDT 5 mLs documented in this encounter Care Teams Postal Clerk Relationship Specialty Start Date End Date Dominic Recinos MD [address] [place] [address] PCP - General INTERNAL MEDICINE 09/18/21 Bonilla Anton MD [address] [place] [address] Consulting Physician INTERNAL MEDICINE 10/16/21 Celso Haro DO [address] [facility] [address] [place], [place] [phone] INTERNAL MEDICINE 10/16/21 documented as of this encounter
--- OUTSIDE RECORDS SUMMARY | 2024-02-23 13:09 | XMS_ITS | Encounter Summary ---
Author Organization [facility] Address [address] [place] [address]. [place], [place] [address] [place] [address] Care Team Providers Care Mutual Fund Manager Name Role Phone Dominic Recinos MD Primary Care Provider [phone] Bonilla Anton MD Unavailable Celso Haro DO Unavailable Encounter Details Date Type Department Care Team (Latest Contact Info) Description 11/30/2021 Travel Social History Tobacco Use Types Packs/Day [...] suspected to have Coronavirus/COVID-19? No / Unsure 11/30/2021 8:51 AM CDT documented as of this encounter Plan of Treatment Not on file documented as of this encounter Visit Diagnoses Not on filedocumented in this encounter Care Teams Mutual Fund Manager Relationship Specialty Start Date End Date Dominic Recinos MD [address] [place] [address] PCP - General INTERNAL MEDICINE 09/18/21 Bonilla Anton MD [address] [place] [address] Consulting Physician INTERNAL MEDICINE 10/16/21 Celso Haro DO [address] [facility] [address] [place] [address] INTERNAL MEDICINE 10/16/21 documented as of this encounter
--- OUTSIDE RECORDS SUMMARY | 2024-02-23 13:09 | XMS_ITS | Encounter Summary ---
Author Organization [facility] Address [address] [place] [address]. [place] [address] [place] [address] Care Team Providers Care Confectionery Drops Machine Operator Name Role Phone Dominic Recinos MD Primary Care Provider [phone] Bonilla Anton MD Unavailable Celso Haro DO Unavailable Evan Olivarez DPM Unavailable [phone] Encounter Details Date Type Department Care Team (Late st Contact Info) Description 12/14/2021 8:51 AM CDT - 12/14/2021 11:59 PM CDT Hospital Encounter [facility] [address] [place] [address] Graciela Rodriguez, TICKET PULLER [address] [place] [address] Discharge Disposition: Home or Self [...] suspected to have Coronavirus/COVID-19? No / Unsure 12/14/2021 8:49 AM CDT documented as of this encounter [...] LUNCH, AND 30 UNITS WITH SUPPER 11/23/2021 lisinopril (PRINIVIL) 20 MG tablet Take 20 [...] 2 (two) times daily before meals. 2 potassium chloride CR 20 MEQ Tab CR tablet 10/14/2021 2 warfarin (COUMADIN) 5 MG tablet Take 5 mg by mouth daily. 2 documented as of this encounter Progress Notes * Nieves Lowry RN - 12/14/2021 9:15 AM CDTEncounter addended by: Nieves Lowry RN on: 12/14/2021 10:14 AM Actions taken: Multistep and multistep collection tasks completed documented in this encounter Plan of Treatment Not on file documented as of this encounter Procedures Procedure Name Priority Date/Time Associated Diagnosis Comments HC BODY FLUID CULTURE Routine 12/14/2021 9:20 AM CDT Ulcer of left lower extremity with fat layer exposed ([facility]/HCC HHS/HCC) documented in this encounter Results * CULTURE, WOUND, W/GRAM STAIN (12/14/2021 9:20 AM CDT) SPEC DESCRIPTION HEEL, LEFT 12/14/2021 10:14 AM CDT [facility] SPECIAL REQUESTS NO SPECIAL REQUEST 12/14/2021 10:14 AM CDT [facility] GRAM STAIN RESULT WBC'S SEEN 12/14/2021 1:02 PM CDT [facility] GRAM STAIN RESULT RARE GRAM POSITIVE COCCI 12/14/2021 1:02 PM CDT [facility] GRAM STAIN RESULT RARE GRAM NEGATIVE RODS 12/14/2021 1:02 PM CDT [facility] CULTURE RESULT FEW PSEUDOMONAS AERUGINOSA 12/17/2021 10:37 AM CDT [facility] CULTURE RESULT FEW ENTEROCOCCUS FAECALIS 12/17/2021 10:37 AM CDT [facility] CULTURE RESULT FEW STAPHYLOCOCCUS , COAGULASE NEGATIVE 12/17/2021 10:37 AM CDT [facility] CULTURE RESULT FEW DIPHTHEROIDS 12/17/2021 10:37 AM CDT [facility] LEFT HEEL STRUCTURE / Unknown 12/14/2021 9:20 AM CDT 12/14/2021 10:17 AM CDT Narrative Organism Antibiotic Method Susceptibility Pseudomonas aeruginosa AMIKACIN SADIA (KB) Sensitive Pseudomonas aeruginosa CEFEPIME SADIA (KB) Sensitive Pseudomonas aeruginosa CEFTAZIDIME SADIA (KB) Sensitive Pseudomonas aeruginosa CIPROFLOXACIN SADIA (KB) Sensitive Pseudomonas aeruginosa GENTAMICIN SADIA (KB) Sensitive Pseudomonas aeruginosa LEVOFLOXACIN SADIA (KB) Sensitive Pseudomonas aeruginosa PIPRACIL/TAZO SADIA (KB) Sensitive Pseudomonas aeruginosa TOBRAMYCIN SADIA (KB) Sensitive Pseudomonas aeruginosa MEROPENEM SADIA (KB) Sensitive Pseudomonas aeruginosa AZTREONAM SADIA (KB) Sensitive Enterococcus faecalis AMPICILLIN SADIA (VITEK) Sensitive Enterococcus faecalis ERYTHROMYCIN SADIA (VITEK) INTERMEDIATE: Intermediate Enterococcus faecalis GENT. SYNERGY SCREEN SADIA (VITEK) Sensitive Enterococcus faecalis LINEZOLID SADIA (VITEK) Sensitive Enterococcus faecalis PENICILLIN G SADIA (VITEK) Sensitive Enterococcus faecalis STR. SYNERGY SCR SADIA (VITEK) Sensitive Enterococcus faecalis TIGECYCLINE SADIA (VITEK) Sensitive Enterococcus faecalis VANCOMYCIN SADIA (VITEK) Sensitive Staphylococcus, coagulase negative CLINDAMYCIN SADIA (VITEK) Resistant Staphylococcus, coagulase negative ERYTHROMYCIN SADIA (VITEK) Resistant Staphylococcus, coagulase negative GENTAMICIN SADIA (VITEK) INTERMEDIATE: Intermediate Staphylococcus, coagulase negative OXACILLIN SADIA (VITEK) Resistant Staphylococcus, coagulase negative PENICILLIN G SADIA (VITEK) Resistant Staphylococcus, coagulase negative RIFAMPIN SADIA (VITEK) Sensitive Staphylococcus, coagulase negative TRIMETH-SULFAMETH. SADIA (VITEK) Resistant Staphylococcus, coagulase negative TETRACYCLINE SADIA (VITEK) Sensitive Staphylococcus, coagulase negative VANCOMYCIN SADIA (VITEK) Sensitive us Graciela Rodriguez TICKET PULLER MICROBIOLOGY - GENERAL ORDERAB LES Final Result [facility] [address] [place] [address], [place] [phone] [id number] [facility] [address] [place] [address], documented in this encounter Visit Diagnoses Diagnosis Ulcer of left lower extremity with fat layer exposed (CMS/HCC HHS/HCC)- Primary documented in this encounter Administered Medications Inactive Administered Medications - up to 3 most recent administrations Medication Order MAR Action Action Date Dose Rate Site lidocaine (XYLOCAINE) 2 % jelly 5 mL 5 mL, Topical, Once, 1 dose, On Tue12/14/21 at 0930Indications:Ulcer of left lower extremity with fat layer exposed (CMS/HCC HHS/HCC) Given 12/14/2021 8:45 AM CDT 5 mLs documented in this encounter Care Teams Confectionery Drops Machine Operator Relationship Specialty Start Date End Date Dominic Recinos MD [address] [place] [address] PCP - General INTERNAL MEDICINE 09/18/21 Bonilla Anton MD [address] [place] [address] Consulting Physician INTERNAL MEDICINE 10/16/21 Celso Haro DO [address] [facility] [address] [place] [address] INTERNAL MEDICINE 10/16/21 Evan Olivarez DPM [address] [place] [address] [place] [address] Consulting Physician PODIATRY/SURGERY 12/07/21 12/07/22 documented as of this encounter
--- OUTSIDE RECORDS SUMMARY | 2024-02-23 13:09 | XMS_ITS | Encounter Summary ---
Author Organization [facility] Address [address] [place] [address]. [place] [address] [place] [address] Care Team Providers Care Instrument Adjuster Name Role Phone Dominic Recinos MD Primary Care Provider [phone] Bonilla Anton MD Unavailable Celso Haro DO Unavailable Evan Olivarez DPM Unavailable Encounter Details Date Type Department Care Team (Late st Contact Info) Description 12/28/2021 8:41 AM CDT - 12/28/2021 11:59 PM CDT Hospital Encounter [facility] [address] [place] [address] Graciela Rodriguez, PERSONAL LINES SALES EXECUTIVE [address] [place] [address] Discharge Disposition: Home or Self [...] suspected to have Coronavirus/COVID-19? No / Unsure 12/28/2021 8:39 AM CDT documented as of this encounter [...] 1/2 tablets by mouth on Tuesday and Jamie and 2 tablets every other day of the week Take 2 mg by mouth daily. Indications: take 2 and 1/2 tablets by mouth on Tuesday and Tuesday and 2 tablets every other day of the week albuterol sulfate HFA 108 (90 Base) MCG/ACT inhaler Inhale 2 puffs into the lungs every 4 (four) hours as needed for Wheezing. 2 ciprofloxacin (CIPRO) 500 MG tabletIndicatio ns:Ulcer of left lower extremity with fat layer exposed (CMS/HCC HHS/HCC) Take 1 tablet (500 mg total) by mouth 2 (two) times daily for 14 days. 28 tablet 12/22/2021 2 furosemide (LASIX) 40 MG tablet Take 40 mg by mouth daily. 2 insulin NPH isophane & regular (HUMULIN 70/30 KWIKPEN) (70-30) 100 UNIT/ML injection (pen) Inject 60 Units into the skin 2 (two) times daily before meals. 2 linezolid (ZYVOX) 600 MG tabletIndicatio ns:Ulcer of left lower extremity with fat layer exposed (CMS/HCC HHS/HCC) Take 1 tablet (600 mg total) by mouth 2 (two) times daily for 10 days. 20 tablet 12/22/2021 2 potassium chloride CR 20 MEQ Tab CR tablet 10/14/2021 2 warfarin (COUMADIN) 5 MG tablet Take 5 mg by mouth daily. 2 documented as of this encounter Progress Notes * Nieves Lowry RN - 12/28/2021 9:15 AM CDTEncounter addended by: Nieves Lowry RN on: 12/28/2021 10:15 AM Actions taken: MAR administration accepted documented [...] 5 mL, Topical, Once, 1 dose, On Tue12/28/21 at 1000Indications:Ulcer of left lower extremity with fat layer exposed (CMS/HCC HHS/HCC) Given 12/28/2021 9:30 AM CDT 5 mLs silver-potassium nitrate applicator 1 applicator 1 applicator, Topical, Once, 1 dose, On Tue12/28/21 at 1000Indications:Ulcer of left lower extremity with fat layer exposed (CMS/HCC HHS/HCC) Given 12/28/2021 9:50 AM CDT 1 applicator silver-potassium nitrate applicator 1 applicator 1 applicator, Topical, Once, 1 dose, On Tue12/28/21 at 1000Indications:Ulcer of left lower extremity with fat layer exposed (CMS/HCC HHS/HCC) Given 12/28/2021 9:50 AM CDT 1 applicator documented in this encounter Care Teams Instrument Adjuster Relationship Specialty Start Date End Date Dominic Recinos MD [address] [place] [address] PCP - General INTERNAL MEDICINE 09/18/21 Bonilla Anton MD [address] [place] [address] Consulting Physician INTERNAL MEDICINE 10/16/21 Celso Haro DO [address] [facility] [address] [place], [place] [phone] INTERNAL MEDICINE 10/16/21 Evan Olivarez DPM [address] [facility] [place] [address] Consulting Physician PODIATRY/SURGERY 12/07/21 12/07/22 documented as of this encounter
--- OUTSIDE RECORDS SUMMARY | 2024-02-23 13:09 | XMS_ITS | Encounter Summary ---
Author Organization [facility] Address [address] [place] [address]. [place], [place] [address] [place] [address] Care Team Providers Care Display Department Manager Name Role Phone Dominic Recinos MD Primary Care Provider [phone] Bonilla Anton MD Unavailable Celso Haro DO Unavailable Encounter Details Date Type Department Care Team (Late st Contact Info) Description 10/19/2021 8:55 AM CDT - 10/19/2021 11:59 PM CDT Hospital Encounter [facility] [address] [place] [id number] Graciela Rodriguez, [facility] [address] [place] [address] Discharge Disposition: Home or Self Care (Routine [...] suspected to have Coronavirus/COVID-19? No / Unsure 10/19/2021 8:53 AM CDT documented as of this [...] 10/14/2021 022 documented as of this encounter Plan of Treatment Not on file documented as of this encounter Visit Diagnoses Diagnosis Diabetic ulcer of left heel associated with type 2 diabetes mellitus, with necrosis of muscle ([facility] HHS/HCC)- Primary documented in this encounter Administered Medications Inactive Administered Medications - up to 3 most recent administrations Medication Order MAR Action Action Date Dose Rate Site lidocaine (XYLOCAINE) 2 % jelly 5 mL 5 mL, Topical, Once, 1 dose, On 10/19/21 at 1000Indications:Diabetic ulcer of left heel associated with type 2 diabetes mellitus, with necrosis of muscle ([facility] HHS/HCC) Given 10/19/2021 10:00 AM CDT 5 mLs documented in this encounter Care Teams Display Department Manager Relationship Specialty Start Date End Date Dominic Recinos MD [address] [place] [address] PCP - General INTERNAL MEDICINE 09/18/21 Bonilla Anton MD [address] [place] [address] Consulting Physician INTERNAL MEDICINE 10/16/21 Celso Haro DO [address] [place], [place] [id number] INTERNAL MEDICINE 10/16/21 documented as of this encounter
--- OUTSIDE RECORDS SUMMARY | 2024-02-23 13:09 | XMS_ITS | Encounter Summary ---
Author Organization [facility] Address [facility] [address] [place] [address] Care Team Providers Care Motor Runner Name Role Phone Dominic Recinos MD Primary Care Provider [phone] Bonilla Anton MD Unavailable Celso Haro DO Unavailable Evan Olivarez DPM Unavailable [phone] Encounter Details Date Type Department Care Team (Late st Contact Info) Description 12/08/2021 Orders Only [facility] [address] [place] [address] Bonilla Anton MD [address] [place], [place] [address] Social History Tobacco Use Types Packs/Day Years [...] on filedocumented in this encounter Care Teams Motor Runner Relationship Specialty Start Date End Date Dominic Recinos MD [address] [place] [address] PCP - General INTERNAL MEDICINE 09/18/21 Bonilla Anton MD [address] [place] [address] Consulting Physician INTERNAL MEDICINE 10/16/21 Celso Haro DO [address] [facility] [address] [place] [address] INTERNAL MEDICINE 10/16/21 Evan Olivarez DPM [address] [facility] [facility] [place] [address] Consulting Physician PODIATRY/SURGERY 12/07/21 12/07/22 documented as of this encounter
--- OUTSIDE RECORDS SUMMARY | 2024-02-23 13:09 | XMS_ITS | Encounter Summary ---
Author Organization [facility] Address [facility]6 [facility] [place] [address] [place] [address] Care Team Providers Care Finance Clerk Name Role Phone Dominic Recinos MD Primary Care Provider [phone] Bonilla Anton MD Unavailable Celso Haro DO Unavailable Encounter Details Date Type Department Care Team (Latest Contact Info) Description 11/02/2021 Travel Social History Tobacco Use Types Packs/Day [...] suspected to have Coronavirus/COVID-19? No / Unsure 11/02/2021 8:50 AM CDT documented as of this encounter Plan of Treatment Not on file documented as of this encounter Visit Diagnoses Not on filedocumented in this encounter Care Teams Finance Clerk Relationship Specialty Start Date End Date Dominic Recinos MD [address] [place] [address] PCP - General INTERNAL MEDICINE 09/18/21 Bonilla Anton MD [address] [place] [address] Consulting Physician INTERNAL MEDICINE 10/16/21 Celso Haro DO [address] [facility] [address] [place] [address] INTERNAL MEDICINE 10/16/21 documented as of this encounter
--- OUTSIDE RECORDS SUMMARY | 2024-02-23 13:09 | XMS_ITS | Encounter Summary ---
Author Organization [facility] Address [facility] [place], [place] [address] [place] [address] Care Team Providers Care Childcare Director Name Role Phone Dominic Recinos MD Primary Care Provider [phone] Bonilla Anton MD Unavailable Celso Haro DO Unavailable Evan Olivarez DPM Unavailable [phone] Encounter Details Date Type Department Care Team (Latest Contact Info) Description 12/14/2021 Travel Social History Tobacco Use Types Packs/Day [...] on filedocumented in this encounter Care Teams Childcare Director Relationship Specialty Start Date End Date Dominic Recinos MD [address] [place] [address] PCP - General INTERNAL MEDICINE 09/18/21 Bonilla Anton MD [address] [place] [address] Consulting Physician INTERNAL MEDICINE 10/16/21 Celso Haro DO [address] [place] [address] INTERNAL MEDICINE 10/16/21 Evan Olivarez DPM [address] [place] [address] Consulting Physician PODIATRY/SURGERY 12/07/21 12/07/22 documented as of this encounter
--- OUTSIDE RECORDS SUMMARY | 2024-02-23 13:09 | XMS_ITS | Encounter Summary ---
Author Organization [facility] Address [facility]6 [facility] [place], [place] [address] [place] [address] Care Team Providers Care Fashion Director Party Plan Sales Name Role Phone Dominic Recinos MD Primary Care Provider [phone] Bonilla Anton MD Unavailable Celso Haro DO Unavailable Evan Olivarez DPM Unavailable [phone] Encounter Details Date Type Department Care Team (Latest Contact Info) Description 12/28/2021 Travel Social History Tobacco Use Types Packs/Day [...] on filedocumented in this encounter Care Teams Fashion Director Party Plan Sales Relationship Specialty Start Date End Date Dominic Recinos MD [address] [place] [address] PCP - General INTERNAL MEDICINE 09/18/21 oBnilla Anton MD [address] [place] [address] Consulting Physician INTERNAL MEDICINE 10/16/21 Celso Haro DO [address] [place] [address] INTERNAL MEDICINE 10/16/21 Evan Olivarez DPM [address] [place] [address] Consulting Physician PODIATRY/SURGERY 12/07/21 12/07/22 documented as of this encounter
--- OUTSIDE RECORDS SUMMARY | 2024-02-23 13:09 | XMS_ITS | Encounter Summary ---
Author Organization [facility] Address [address] [place] [address]. [place] [address] [place] [address] Care Team Providers Care Technology Teacher Name Role Phone Dominic Recinos MD Primary Care Provider [phone] Bonilla Anton MD Unavailable Celso Haro DO Unavailable Evan Olivarez DPM Unavailable [phone] Encounter Details Date Type Department Care Team (Late st Contact Info) Description 01/04/2022 8:37 AM CDT - 01/04/2022 11:59 PM CDT Hospital Encounter [facility] [address] [address] Graciela Rodriguez, MANAGER CARGO [address] [address] Discharge Disposition: Home or Self Care [...] suspected to have Coronavirus/COVID-19? No / Unsure 01/04/2022 8:35 AM CDT documented as of this encounter [...] Progress Notes * Nieves Lowry RN - 01/04/2022 9:15 AM CDTEncounter addended by: Nieves Lowry RN on: 01/04/2022 9:41 AM Actions taken: MAR administration accepted documented [...] 5 mL, Topical, Once, 1 dose, On Tue01/04/22 at 0915Indications:Ulcer of left lower extremity with fat layer exposed (CMS/HCC HHS/HCC) Given 01/04/2022 8:30 AM CDT 5 mLs silver-potassium nitrate applicator 1 applicator 1 applicator, Topical, Once, 1 dose, On Tue01/04/22 at 1000Indications:Ulcer of left lower extremity with fat layer exposed (CMS/HCC HHS/HCC) Given 01/04/2022 9:00 AM CDT 1 applicator silver-potassium nitrate applicator 1 applicator 1 applicator, Topical, Once, 1 dose, On Tue01/04/22 at 1000Indications:Ulcer of left lower extremity with fat layer exposed (CMS/HCC HHS/HCC) Given 01/04/2022 9:00 AM CDT 1 applicator documented in this encounter Care Teams Technology Teacher Relationship Specialty Start Date End Date Dominic Recinos MD [address] [place] [address] PCP - General INTERNAL MEDICINE 09/18/21 Bonilla Anton MD [address] [place] [address] Consulting Physician INTERNAL MEDICINE 10/16/21 Celso Haro DO [address] [place], [place] [id number] INTERNAL MEDICINE 10/16/21 Evan Olivarez DPM [address] [place] [address] Consulting Physician PODIATRY/SURGERY 12/07/21 12/07/22 documented as of this encounter
--- OUTSIDE RECORDS SUMMARY | 2024-02-23 13:09 | XMS_ITS | Encounter Summary ---
Author Organization [facility] Address [address] [place] [address]. [place] [address] [place] [address] Care Team Providers Care Commercial Photographer Name Role Phone Dominic Recinos MD Primary Care Provider [phone] Bonilla Anton MD Unavailable Celso Haro DO Unavailable Evan Olivarez DPM Unavailable [phone] Encounter Details Date Type Department Care Team (Late st Contact Info) Description 01/11/2022 8:24 AM MANAGEMENT PLANNER - 01/11/2022 11:59 PM MANAGEMENT PLANNER Hospital Encounter [facility] [address] [place] [address] Graciela Rodriguez, TOOL CRIB LEAD [address] [place] [address] Discharge Disposition: Home or Self [...] Coronavirus/COVID-19? No / Unsure 01/11/2022 8:21 AM MANAGEMENT PLANNER documented as of this encounter Medications at [...] daily. 2 documented as of this encounter Plan of [...] 5 mL, Topical, Once, 1 dose, On Tue01/11/22 at 0845Indications:Ulcer of left lower extremity with fat layer exposed (CMS/HCC HHS/HCC) Given 01/11/2022 8:30 AM MANAGEMENT PLANNER 5 mLs documented in this encounter Care Teams Commercial Photographer Relationship Specialty Start Date End Date Dominic Recinos MD [address] [place] [id number] PCP - General INTERNAL MEDICINE 09/18/21 Bonilla Anton MD [address] [place] [address] Consulting Physician INTERNAL MEDICINE 10/16/21 Celso Haro DO [address] [place] [address] INTERNAL MEDICINE 10/16/21 Evan Olivarez DPM [address] [facility] [place] [address] Consulting Physician PODIATRY/SURGERY 12/07/21 12/07/22 documented as of this encounter
--- OUTSIDE RECORDS SUMMARY | 2024-02-23 13:09 | XMS_ITS | Encounter Summary ---
Author Organization [facility] Address [facility]6 [facility] [place] [address] [place] [address] Care Team Providers Care Stretch Box Tender Name Role Phone Dominic Recinos MD Primary Care Provider [phone] Bonilla Anton MD Unavailable Celso Haro DO Unavailable Encounter Details Date Type Department Care Team (Latest Contact Info) Description 10/19/2021 Travel Social History Tobacco Use Types Packs/Day [...] on filedocumented in this encounter Care Teams Stretch Box Tender Relationship Specialty Start Date End Date Dominic Recinos MD [address] [place] [address] PCP - General INTERNAL MEDICINE 09/18/21 Bonilla Anton MD [address] [place] [address] Consulting Physician INTERNAL MEDICINE 10/16/21 Celso Haro DO [address] [facility] [address] [place] [address] INTERNAL MEDICINE 10/16/21 documented as of this encounter
--- OUTSIDE RECORDS SUMMARY | 2024-02-23 13:09 | XMS_ITS | Encounter Summary ---
Author Organization [facility] Address [address] [place] [address]. [place] [address] [place] [address] Care Team Providers Care Vice President Talent Management Name Role Phone Dominic Recinos MD Primary Care Provider [phone] Bonilla Anton MD Unavailable Celso Haro DO Unavailable Evan Olivarez DPM Unavailable [phone] Reason for Visit * Auth/Cert (Routine) Specialty Diagnoses / Procedures Referred By Contac t Referred To Contact Diagnoses NON-PRESSURE ULCER LEFT HEEL Procedures DEEP DEBRIDEMENT OF ULCER LEFT HEEL Evan Olivarez, DPM [address] [place] [address] Phone: tel: fax: Referral ID Status Reason Start Date Expiration Date Visits Re quested Visits Authorized [id number] 1 1 Encounter Details Date Type Department Care Team (Latest Contact Info) Description 01/22/2022 11:15 AM WRAPPING MACHINE TENDER - 01/22/2022 2:32 PM [facility] Hospital En[facility] [address] [place] [address] Evan Olivarez, DPM [address] [place] [address] Discharge Disposition: Home or Self Care (Routine [...] Coronavirus/COVID-19? No / Unsure 01/22/2022 11:14 AM WRAPPING MACHINE TENDER documented as of this encounter Last Filed Vital Signs Vital Sign Reading Time Taken Comments Blood Pressure 101/51 01/22/2022 2:22 PM WRAPPING MACHINE TENDER Pulse 62 01/22/2022 2:22 PM WRAPPING MACHINE TENDER Temperature 35.4 ??C (95.7 ??F) 01/22/2022 2:22 PM CS T Respiratory Rate 16 01/22/2022 2:22 PM WRAPPING MACHINE TENDER Oxygen Saturation 99% 01/22/2022 2:22 PM WRAPPING MACHINE TENDER Inhaled Oxygen Concentration - - Weight 108.9 kg (240 lb) 01/19/2022 1:01 PM WRAPPING MACHINE TENDER Height 172.7 cm (5' 8 ) 01/19/2022 1:01 PM WRAPPING MACHINE TENDER Body Mass Index 36.49 01/19/2022 1:01 PM WRAPPING MACHINE TENDER documented in this encounter Discharge Instructions * Attachments The following attachments cannot be sent through Care Everywhere. * Surgical Wound Discharge Instructions (Rwandan) * Moderate Sedation in Adults Discharge Instructions (Rwandan) * Nerve Blocks ([place]wandan) * Debridement of a Wound or Burn Discharge Instructions ([place]andan) documented in this encounter Medications at Time [...] other day of the week POST OP DONNELL DENNIS,Indications :Post-operative state Apply 1 Device topically once for 1 dose. 1 Device 01/22/2022 2 documented as of this encounter H&P Notes * Evan Olivarez DPM - 01/22/2022 12:54 PM CST HISTORY AND PHYSICAL INTERVAL NOTE: I have reviewed Diego Marquez History & Physical which was performed within the past 30 days. After examining Diego Harolambert Lamar, no change has occurred in the patient's condition since the H&P was completed. Informed Consent Discussion: Potential benefits, risks, and side effects of the patient's procedure/surgery; the likelihood of the patient achieving his or her goals; and any potential problems that might occur during recuperation were discussed with the patient/family/personal regional sales representative. Reasonable alternatives to the patient's proposed procedure/surgery including benefits, risks, and side effects related to the alternatives and the risks related to not receiving the proposed care were also discussed with the patient/family/personal regional sales representative. Questions were answered and the patient/family/personal regional sales representative verbalized understanding and desires to proceed. PING MACHINE TENDER Source Note - [facility] - 01/22/2022 12:00 AM WRAPPING MACHINE TENDER documented in this encounter OR Notes * Brief Op Note - Evan Olivarez DPM - 01/22/2022 1:49 PM CST [facility] Brief Op HSHSDEEP DEBRIDEMENT OF ULCER LEFT HEEL Procedure Note Diego Harolambert Lance. 01/22/2022 1300 Procedure(s) (LRB): DEEP DEBRIDEMENT OF ULCER LEFT HEEL (Left) Surgeon(s): Evan Olivarez DPM Yarn Cleaner: None Anesthesia: Choice Pre-Op Diagnosis: NON-PRESSURE ULCER LEFT HEEL down to bone Post-Op Diagnosis: Same Findings: As expected Estimated Blood Loss: less than 50 mL Specimens: None EVAN OLIVAREZ DPM Date: 01/22/2022 Time: 1:49 PM PING MACHINE TENDER * Op Note - Evan Olivarez DPM - 01/22/2022 12:00 AM CST PREOPERATIVE [...] number to call should any problems arise. #[id number] /BRIANA PING MACHINE TENDER documented in this encounter Plan of Treatment Not on file documented as of this encounter Procedures Procedure Name Priority Date/Time Associated Diagnosis Comments POCT GLUCOSE - BAGLEY DOCKED DEVICE Routine 01/22/2022 2:01 PM WRAPPING MACHINE TENDER CULTURE, TB/AFB W/ STAIN Routine 01/22/2022 1:25 PM WRAPPING MACHINE TENDER CULTURE, FUNGUS W/ STAIN Routine 01/22/2022 1:25 PM WRAPPING MACHINE TENDER HC BODY FLUID CULTURE Routine 01/22/2022 1:25 PM WRAPPING MACHINE TENDER CULTURE, ANAEROBIC Routine 01/22/2022 1: 25 PM WRAPPING MACHINE TENDER DEBRIDEMENT FOOT 01/22/2022 12:5 0 PM WRAPPING MACHINE TENDER NON-PRESSURE ULCER LEFT HEEL Case Notes PULSE LAVAGE WITH GENT. POCT GLUCOSE - BAGLEY DOCKED DEVICE Routine 01/22/2022 12:07 PM WRAPPING MACHINE TENDER documented in this encounter Results * POCT glucose (01/22/2022 2:01 PM WRAPPING MACHINE TENDER) GLUCOSE POC 72 70 - 99 MG/DL 01/22/2022 2:51 PM WRAPPING MACHINE TENDER [facility] 01/22/2022 2:01 PM WRAPPING MACHINE TENDER us Evan Olivarez DPM POCT ORDERABLES - DEVICE Fin al Result [facility] [place] [address], * CULTURE, TB/AFB W/ STAIN (01/22/2022 1:25 PM WRAPPING MACHINE TENDER) SPECIMEN SOURCE LEFT HEEL WOUND 01/22/2022 2:20 PM WRAPPING MACHINE TENDER [facility] RESULT REPORT 02/18/2022 3:56 PM WRAPPING MACHINE TENDER [employer] [facility]ARCIA Comment: Mycobacteria, Culture, with Fluorochrome Smear Mycobacteria Stn,AF,Fluor SOURCE : LEFT HEEL WOUND Result/Comment: No acid-fast bacilli seen. Mycobacteria smear result should be used as an adjunct to culture in diagnosing mycobacterial disease (e.g. tuberculosis). If intended, please ensure an order for Mycobacteria (Vrfw-Djod-Mddbupp) culture has also been submitted. Acid Fast Culture SOURCE : LEFT HEEL WOUND Result/Comment: No Mycobacterium species isolated after 6 weeks incubation. ? Mycobacterial probe for TB complex not indicated ? Mycobacterial identification not indicated Test Performed by [employer] [address] [place], [address] [place], [place] Raymond Reyna M.D., Ph.D., Director of Laboratories , [facility] [id number] REPORT STATUS FINAL 03/17/2022 2:14 PM WRAPPING MACHINE TENDER [employer] RICHARD LLValentina WOUND LEFT HEEL STRUCTURE / Unknown 01/22/2022 1:25 PM WRAPPING MACHINE TENDER Evan Olivarez DPKimi MICROBIOLOGY - GENERAL ORDER LIDIA Final Result [facility] [address] [place], [place] , [place] [phone] [facility] [address] [place] [address], [place] [phone] * (ABNORMAL) CULTURE, FUNGUS W/ STAIN (01/22/2022 1:25 PM WRAPPING MACHINE TENDER) SPECIMEN SOURCE LEFT HEEL WOUND 01/22/2022 2:19 PM WRAPPING MACHINE TENDER [facility] Comment:CALLED TO BRANDIE OLIVAREZ OFFICE [phone] COMMENT REPORT(AA ) 02/02/2022 12:59 PM WRAPPING MACHINE TENDER [employer] [facility] [place] Comment: FUNGUS CULTURE AND SMEAR Fungal Stain SOURCE : LEFT HEEL WOUND Result/Comment: No fungus seen on microscopic examination. Fungus Culture SOURCE : LEFT HEEL WOUND Result/Comment: Identification performed by mass spectrometry. ?? ORGANISM(S) ISOLATED 1. ??Light growth of Maggy parapsilosis CRITICAL VALUE REPORT Test Performed by Michael Andrews [employer] [place], [address] [place], [place] Raymond Reyna M.D., Ph.D., Director of Laboratories , [facility] [id number] REPORT STATUS FINAL 02/23/2022 5:19 PM WRAPPING MACHINE TENDER [facility] W[facility] LEFT HEEL STRUCTURE / Unknown 01/22/2022 1:25 PM WRAPPING MACHINE TENDER Evan Olivarez DPM MICROBIOLOGY - GENERAL ORDER LIDIA Final Result [facility] [place] [id number] [place], [place] , [place] [phone] [facility] [place] [address], [place] [phone] * CULTURE, WOUND, W/GRAM STAIN (01/22/2022 1:25 PM WRAPPING MACHINE TENDER) SPEC DESCRIPTION HEEL, LEFT 01/22/2022 2:04 PM WRAPPING MACHINE TENDER [facility] SPECIAL REQUESTS NO SPECIAL REQUEST 01/22/2022 2:04 PM WRAPPING MACHINE TENDER [facility] GRAM STAIN RESULT RARE GRAM POSITIVE COCCI 01/22/2022 5:24 PM WRAPPING MACHINE TENDER [facility] GRAM STAIN RESULT RARE GRAM POSITIVE RODS 01/22/2022 5:24 PM WRAPPING MACHINE TENDER [facility] CULTURE RESULT FEW PSEUDOMONAS AERUGINOSA 01/25/2022 2:13 PM WRAPPING MACHINE TENDER [facility] WOUND LEFT HEEL STRUCTURE / Unknown 01/22/2022 1:25 PM WRAPPING MACHINE TENDER Narrative Organism Antibiotic Method Susceptibility Pseudomonas aeruginosa [...] TOBRAMYCIN SADIA (KB) Sensitive us Evan Olivarez DPM MICROBIOLOGY - GENERAL ORDER LIDIA Final Result Performing Organization Address [facility] de Phone Number [facility] [address] [place] [address], [place] [phone] [facility] [address] [place] [address], * CULTURE, ANAEROBIC (01/22/2022 1:25 PM WRAPPING MACHINE TENDER) SPEC DESCRIPTION HEEL, LEFT 01/22/2022 2:04 PM WRAPPING MACHINE TENDER [facility] SPECIAL REQUESTS NO SPECIAL REQUEST 01/22/2022 2:04 PM WRAPPING MACHINE TENDER [facility] CULTURE RESULT NO ANAEROBES ISOLATED 01/27/2022 5:01 PM WRAPPING MACHINE TENDER [facility] WOUND LEFT HEEL STRUCTURE / Unknown 01/22/2022 1:25 PM WRAPPING MACHINE TENDER us Evan Olivarez DPM MICROBIOLOGY - GENERAL ORDER LIDIA Final Result Performing Organization Address [facility] de Phone Number [facility] [address] [place] [address], [place] [phone] [facility] [address] [place] [address], [place] [phone] * (ABNORMAL) POCT glucose (01/22/2022 12:07 PM WRAPPING MACHINE TENDER) GLUCOSE POC 68(L) 70 - 99 MG/DL 01/22/2022 12:22 PM WRAPPING MACHINE TENDER [facility] 01/22/2022 12:0 7 PM WRAPPING MACHINE TENDER us Evan P Rolens DPM POCT ORDERABLES - DEVICE Fin al Result [facility] [address] [place] [address], documented in this encounter Visit Diagnoses Diagnosis Post-operative state- Primary Other postprocedural status documented in this encounter Administered Medications Inactive Administered Medications - up to 3 most recent administrations Medication Order MAR Action Action Date Dose Rate Site dextrose 50 % solution 12.5 g 12.5 g, Intravenous, As needed, Low blood sugar, 1 dose, Starting on Tue01/22/22 at 1214, Until Tue01/22/22 at 1221, Administration rate 3 mL/min. Given 01/22/2022 12:21 PM WRAPPING MACHINE TENDER 12.5 g dextrose 50 % solution 1 dose, Starting on Tue01/22/22 at 1212, Until Tue01/22/22 at 1221, Created by cabinet override lactated ringers infusion at 10 mL/hr, Intravenous, Continuous, Starting on Tue01/22/22 at 1145, Until Tue01/22/22 at 1657, Infuse at TKO rate, Pre-Op Restarted 01/22/2022 1:44 PM WRAPPING MACHINE TENDER Continued by Anesthesia 01/22/2022 1:01 PM WRAPPING MACHINE TENDER 10 mL/hr New Bag 01/22/2022 12:20 PM WRAPPING MACHINE TENDER 10 mL/hr documented in this encounter Active and Recently Administered Medications Times are shown in WRAPPING MACHINE TENDER. Scheduled Medication Order 01/20/2022 01/21/2022 01/22/2022 ceFAZolin [...] DPM) documented in this encounter Care Teams Vice President Talent Management Relationship Specialty Start Date End Date Dominic Recinos MD [address] [place] [address] PCP - General INTERNAL MEDICINE 09/18/21 Bonilla Anton MD [address] [place] [address], [place] [address] Consulting Physician INTERNAL MEDICINE 10/16/21 Celso Haro DO [address] [place] [address] INTERNAL MEDICINE 10/16/21 Evan Olivarez DPM [address] [place] [address] Consulting Physician PODIATRY/SURGERY 12/07/21 12/07/22 documented as of this encounter
--- OUTSIDE RECORDS SUMMARY | 2024-02-23 13:09 | XMS_ITS | Encounter Summary ---
Author Organization [facility] Address [address] [place] [address]. 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 ([facility]) Procedures OFFICE/OUTPT VISIT,NEW,LEVL III OFFICE/OUTPT VISIT,NEW,LEVL IV OFFICE/OUTPT VISIT,NEW,LEVL V OFFICE/OUTPT VISIT,EST,LEVL III OFFICE/OUTPT VISIT,EST,LEVL IV OFFICE/OUTPT VISIT,EST,LEVL V Graciela Rodriguez FNP [address] [place] [address] Phone: tel: fax: Evan Olivarez DPM [address] [place] [address] Phone: tel: fax: Referral ID Status Reason Start Date Expiration Date Visits Requested Visits Authorized [id number] Closed Specialty Services Surgery Outpatient 12/07/2021 12/07/2022 1 1 Encounter Details Date Type Department Care Team (Late st Contact Info) Description 12/07/2021 8:54 AM CDT - 12/07/2021 11:59 PM CDT Hospital Encounter [facility] [address] [place] [address] Graciela Rodriguez FNP [address] [place] [address] Discharge Disposition: Home or Self Care (Routine [...] daily before meals. 2 potassium chloride CR (KLOR-CON M) 20 MEQ tablet Take 20 mEq by mouth daily. 2 potassium chloride CR 20 MEQ Tab CR tablet 10/14/2021 2 warfarin (COUMADIN) 5 MG tablet Take 5 mg by mouth daily. 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 ([facility]) Ordered: 12/07/2021 documented as of this encounter Visit Diagnoses Diagnosis Ulcer of left lower extremity with fat layer exposed ([facility])- Primary 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 ([facility]) Type II or unspecified type diabetes mellitus with other specified manifestations, not stated as uncontrolled documented in this encounter Administered Medications Inactive Administered Medications - up to 3 most recent administrations Medication Order MAR Action Action Date Dose Rate Site lidocaine (XYLOCAINE) 2 % jelly 5 mL 5 mL, Topical, Once, 1 dose, On Tue12/07/21 at 1000Indications:Ulcer of left lower extremity with fat layer exposed ([facility]),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 ([facility]) Given 12/07/2021 9:15 AM CDT 5 mLs documented in this encounter Care Teams Clinical Specialist Relationship Specialty Start Date End Date Dominic Recinos MD [address] [place] [address] PCP - General INTERNAL MEDICINE 09/18/21 Bonilla Anton MD [address] [place] [address] Consulting Physician INTERNAL MEDICINE 10/16/21 Celso Haro DO [address] [facility] [address] [place] [address] INTERNAL MEDICINE 10/16/21 Evan Olivarez DPM [address] [place] [address] [place] [address] Consulting Physician PODIATRY/SURGERY 12/07/21 12/07/22 documented as of this encounter
--- OUTSIDE RECORDS SUMMARY | 2024-02-23 13:09 | XMS_ITS | Encounter Summary ---
Author Organization [facility] Address [address] [place] [address]. [place], [place] [address] [place] [address] Care Team Providers Care Commercial Analyst Name Role Phone Dominic Recinos MD Primary Care Provider [phone] Bonilla Anton MD Unavailable Celso Haro DO Unavailable Encounter Details Date Type Department Care Team (Latest Contact Info) Description 11/23/2021 Travel Social History Tobacco Use Types Packs/Day [...] suspected to have Coronavirus/COVID-19? No / Unsure 11/23/2021 8:42 AM CDT documented as of this encounter Plan of Treatment Not on file documented as of this encounter Visit Diagnoses Not on filedocumented in this encounter Care Teams Commercial Analyst Relationship Specialty Start Date End Date Dominic Recinos MD [address] [place] [phone] PCP - General INTERNAL MEDICINE 09/18/21 Bonilla Anton MD [address] [place] [address] Consulting Physician INTERNAL MEDICINE 10/16/21 Celso Haro DO [address] [facility] [address] [place] [address] INTERNAL MEDICINE 10/16/21 documented as of this encounter
--- OUTSIDE RECORDS SUMMARY | 2024-02-23 13:09 | XMS_ITS | Encounter Summary ---
Author Organization [facility] Address [address] [place] [address]. [place], [place] [address] [place] [address] Care Team Providers Care Regional Sales Executive Name Role Phone Dominic Recinos MD Primary Care Provider [phone] Bonilla Anton MD Unavailable Celso Haro DO Unavailable Encounter Details Date Type Department Care Team (Latest Contact Info) Description 11/19/2021 Travel Social History Tobacco Use Types Packs/Day [...] suspected to have Coronavirus/COVID-19? No / Unsure 11/19/2021 9:57 AM CDT documented as of this encounter Plan of Treatment Not on file documented as of this encounter Visit Diagnoses Not on filedocumented in this encounter Care Teams Regional Sales Executive Relationship Specialty Start Date End Date Dominic Recinos MD [address] [place] [phone] PCP - General INTERNAL MEDICINE 09/18/21 Bonilla Anton MD [address] [place] [address] Consulting Physician INTERNAL MEDICINE 10/16/21 Celso Haro DO [address] [facility] [address] [place] [address] INTERNAL MEDICINE 10/16/21 documented as of this encounter
--- OUTSIDE RECORDS SUMMARY | 2024-02-23 13:09 | XMS_ITS | Encounter Summary ---
Author Organization [facility] Address [address] [place] [address]. [place] [address] [place] [address] Care Team Providers Care Multi Disciplined Language Analyst Name Role Phone Dominic Recinos MD Primary Care Provider [phone] Bonilla Anton MD Unavailable Celso Haro DO Unavailable Evan Olivarez DPM Unavailable Encounter Details Date Type Department Care Team (Late st Contact Info) Description 12/22/2021 8:43 AM CDT - 12/22/2021 9:32 AM CDT Hospital Encounter [facility] [address] [place] [address] Graciela Rodriguez, DOMAIN ARCHITECT [address] [place] [address] Discharge Disposition: Home or Self [...] suspected to have Coronavirus/COVID-19? No / Unsure 12/22/2021 8:41 AM CDT documented as of this encounter [...] documented as of this encounter Results * (ABNORMAL) BASIC METABOLIC PANEL (12/22/2021 9:45 AM CDT) SODIUM S/P/B 134(L) 136 - 145 MMOL/L 12/22/2021 10:12 AM CDT [facility] POTASSIUM S/P/B 4.5 3.5 - 5.1 MMOL/L 12/22/2021 10:12 AM CDT [facility] CHLORIDE S/P/B 94(L) 98 - 107 MMOL/L 12/22/2021 10:12 AM CDT [facility] CO2 31.6 21.0 - 32.0 MMOL/L 12/22/2021 10:12 AM CDT [facility] GLUCOSE 96 70 - 99 MG/DL 12/22/2021 10:12 AM CDT [facility] Comment: FASTING GLUCOSE 100 TO 125 MG/DL IS CONSISTENT WITH IMPAIRED FASTING GLUCOSE. FASTING GLUCOSE >125 MG/DL IS CONSISTENT WITH DIABETES. RANDOM GLUCOSE >200 MG/DL WITH HYPERGLYCEMIC SYMPTOMS IS CONSISTENT WITH DIABETES. PER ADA GUIDELINES BUN 45(H) 6 - 24 MG/DL 12/22/2021 10:12 AM CDT [facility] CREATININE S/P/B 1.48(H) 0.70 - 1.30 MG/DL 12/22/2021 10:12 AM CDT [facility] CALCIUM S/P/B 8.9 8.4 - 10.5 MG/DL 12/22/2021 10:12 AM CDT [facility] ANION GAP 8.4 5.0 - 15.0 MMOL/L 12/22/2021 10:12 AM CDT [facility] OSMOLALITY (CALC) 289 MOSM/KG 022 10:12 AM CDT [facility] Comment:REFERENCE RANGE NOT ESTABLISHED GFR ESTIMATE 50(L) >89 ML/MIN/1. 73 M2 12/22/2021 10:12 AM CDT [facility] GFR NOTES GFR REFERENCE S: 12/22/2021 10:12 AM CDT [facility] Comment: THE ESTIMATED GFR IS CALCULATED USING THE 2020 CKD-EPI EQUATION. THE FOLLOWING CATEGORIES FOR GRADING RENAL FUNCTION ARE RECOMMENDED BY THE INTERNATIONAL SOCIETY OF NEPHROLOGY (KDIGO 2012 CLINICAL PRACTICE GUIDELINE). G1,NORMAL OR HIGH: >89 ml/min/1.73 m2 G2,MILDLY DECREASED: 60-89 ml/min/1.73 m2 G3A,MILDLY TO MODERATELY DECREASED: 45-59 ml/min/1.73 m2 G3B,MODERATELY TO SEVERELY DECREASED: 30-44 ml/min/1.73 m2 G4,SEVERELY DECREASED: 15-29 ml/min/1.73 m2 G5,KIDNEY FAILURE: <15 ml/min/1.73 m2 12/22/2021 9:45 AM CDT Gr[facility] Final Result [facility] [address] [place] [address], * (ABNORMAL) CBC W/DIFF AUTOMATED (12/22/2021 9:45 AM CDT) WBC 6.7 4.0 - 10.8 x10'3/uL 12/22/2021 9:54 AM CDT [facility] RBC 4.85 4.50 - 6.10 x10'6/uL 12/22/2021 9:54 AM CDT [facility] HGB 12.0(L) 13.0 - 18.0 G/DL 12/22/2021 9:54 AM CDT [facility] HCT 38.9 37.0 - 52.0 % 12/22/2021 9:54 AM CDT [facility] MCV 80.2 78.0 - 100.0 FL 12/22/2021 9:54 AM CDT [facility] MCH 24.7(L) 27.0 - 31.0 PG 12/22/2021 9:54 AM CDT [facility] MCHC 30.8(L) 33.0 - 36.0 G/DL 12/22/2021 9:54 AM CDT [facility] RDW 18.8(H) 11.5 - 14.5 % 12/22/2021 9:54 AM CDT [facility] PLT 212 150 - 350 x10'3/uL 12/22/2021 9:54 AM CDT [facility] MPV 9.8 7.4 - 10.4 FL 12/22/2021 9:54 AM CDT [facility] DIFFERENTIAL COMMENT NORMAL REFERENCE RANGE NOT ESTABLISHED FOR THE PROPORTIONAL LEUKOCYTE DIFFERENTIAL. 12/22/2021 9:54 AM CDT [facility] SEG NEUTROPHILS 54.3 % 9:54 AM CDT [facility] LYMPHOCYTES 30.3 % 12/22/2021 9:54 AM CDT [facility] MONOCYTES 13.1 % 12/22/2021 9:54 AM CDT [facility] EOSINOPHILS 0.9 % 12/22/2021 9:54 AM CDT [facility] BASOPHILS 0.7 % 12/22/2021 9:54 AM CDT [facility] IMMATURE GRANS % 0.7 % 12/23/19 9:54 AM CDT [facility] NRBC 0.0 % 12/22/2021 9:54 AM CDT [facility] ABS. NEUTROPHILS 3.66 1.60 - 8.30 x10'3/uL 12/22/2021 9:54 AM CDT [facility] ABS. LYMPHOCYTES 2.04 0.80 - 4.70 x10'3/uL 12/22/2021 9:54 AM CDT [facility] ABS. MONOCYTES 0.88 0.00 - 1.50 x10'3/uL 12/22/2021 9:54 AM CDT [facility] ABS. EOSINOPHILS 0.06 0.00 - 0.40 x10'3/uL 12/22/2021 9:54 AM CDT [facility] ABS. BASOPHILS 0.05 0.00 - 0.20 x10'3/uL 12/22/2021 9:54 AM CDT [facility] ABS. IMMATURE GRANULOCYTES 0.05(H) 0.00 - 0.03 x10'3/uL 12/22/2021 9:54 AM CDT [facility] ABS. NUCLEATED RBC'S 0.00 0.00 x10'3/uL 12/22/2021 9:54 AM CDT [facility] 12/22/2021 9:45 AM CDT Graciela Rodriguez [facility] Final Result [facility] [address] [place] [address], documented in this encounter Visit Diagnoses Diagnosis Ulcer of left lower extremity with fat layer exposed (CMS/HCC HHS/HCC)- Primary documented in this encounter Administered Medications Inactive Administered Medications - up to 3 most recent administrations Medication Order MAR Action Action Date Dose Rate Site lidocaine (XYLOCAINE) 2 % jelly 5 mL 5 mL, Topical, Once, 1 dose, On Tue12/22/21 at 1000Indications:Ulcer of left lower extremity with fat layer exposed (CMS/HCC HHS/HCC) Given 12/22/2021 10:00 AM CDT 5 mLs silver-potassium nitrate applicator 1 applicator 1 applicator, Topical, Once, 1 dose, On Tue12/22/21 at 1000Indications:Ulcer of left lower extremity with fat layer exposed (CMS/HCC HHS/HCC) Given 12/22/2021 10:00 AM CDT 1 applicator silver-potassium nitrate applicator 1 applicator 1 applicator, Topical, Once, 1 dose, On Tue12/22/21 at 1000Indications:Ulcer of left lower extremity with fat layer exposed (CMS/HCC HHS/HCC) Given 12/22/2021 10:00 AM CDT 1 applicator documented in this encounter Care Teams Multi Disciplined Language Analyst Relationship Specialty Start Date End Date Dominic Recinos MD [address] [place] [address] PCP - General INTERNAL MEDICINE 09/18/21 Bonilla Anton MD [address] [place] [address] Consulting Physician INTERNAL MEDICINE 10/16/21 Celso Haro DO [address] [place] [address] INTERNAL MEDICINE 10/16/21 Evan Olivarez DPM [address] [facility] [place] [address] Consulting Physician PODIATRY/SURGERY 12/07/21 12/07/22 documented as of this encounter
--- OUTSIDE RECORDS SUMMARY | 2024-02-23 13:09 | XMS_ITS | Encounter Summary ---
Author Organization [facility] Address [facility]. [place], [place] [address] [place] [address] Care Team Providers Care Plate Preparer Name Role Phone Dominic Recinos MD Primary Care Provider [phone] Bonilla Anton MD Unavailable Celso Haro DO Unavailable Evan Olivarez DPM Unavailable [phone] Encounter Details Date Type Department Care Team (Latest Contact Info) Description 01/18/2022 Travel Social History Tobacco Use Types Packs/Day [...] Coronavirus/COVID-19? No / Unsure 01/18/2022 7:54 AM ACCOUNTING SYSTEMS MANAGER documented as of this encounter Plan of Treatment Not on file documented as of this encounter Visit Diagnoses Not on filedocumented in this encounter Care Teams Plate Preparer Relationship Specialty Start Date End Date Dominic Recinos MD [address] [place] [address] PCP - General INTERNAL MEDICINE 09/18/21 Bonilla Anton MD [address] [place] [address] Consulting Physician INTERNAL MEDICINE 10/16/21 Celso Haro DO [address] [place], [place] [phone] INTERNAL MEDICINE 10/16/21 Evan Olivarez DPM [address] [place] [address] Consulting Physician PODIATRY/SURGERY 12/07/21 12/07/22 documented as of this encounter
--- OUTSIDE RECORDS SUMMARY | 2024-02-23 13:09 | XMS_ITS | Encounter Summary ---
Author Organization [facility] Address [address] [place] [address]. [place], [place] [address] [place] [address] Care Team Providers Care Histopathologist Name Role Phone Dominic Recinos MD Primary Care Provider [phone] Bonilla Anton MD Unavailable Celso Haro DO Unavailable Encounter Details Date Type Department Care Team (Latest Contact Info) Description 11/16/2021 Travel Social History Tobacco Use Types Packs/Day [...] suspected to have Coronavirus/COVID-19? No / Unsure 11/16/2021 8:39 AM CDT documented as of this encounter Plan of Treatment Not on file documented as of this encounter Visit Diagnoses Not on filedocumented in this encounter Care Teams Histopathologist Relationship Specialty Start Date End Date Dominic Recinos MD [address] [place] [phone] PCP - General INTERNAL MEDICINE 09/18/21 Bonilla Anton MD [address] [place] [address] Consulting Physician INTERNAL MEDICINE 10/16/21 Celso Haro DO [address] [facility] [address] [place] [address] INTERNAL MEDICINE 10/16/21 documented as of this encounter
--- OUTSIDE RECORDS SUMMARY | 2024-02-23 13:09 | XMS_ITS | Encounter Summary ---
Author Organization [facility] Address [address] [place] [address]. [place], [place] [address] [place] [address] Care Team Providers Care Shake Backboard Notcher Name Role Phone Dominic Recinos MD Primary Care Provider [phone] Bonilla Anton MD Unavailable Celso Haro DO Unavailable Reason for Referral * Imaging (Routine) - Closed Specialty Diagnoses / Procedures Referred By Contac t Referred To Contact RADIOLOGY Diagnoses Hyperlipidemia, mixed PAD (peripheral artery disease) (CMS/HCC) Procedures CTA AORTO ILIOFEM RUNOFF Bonilla Anton MD [address] [place] [address] Phone: tel: fax: Referral ID Status Reason Start Date Expiration Date Visits Re quested Visits Authorized [id number] Closed 11/10/2021 12/11/2022 1 1 Reason for Visit * Imaging (Routine) - Closed Specialty Diagnoses / Procedures Referred By Contac t Referred To Contact RADIOLOGY Diagnoses Hyperlipidemia, mixed PAD (peripheral artery disease) (CMS/HCC) Procedures CTA AORTO ILIOFEM RUNOFF Bonilla Anton MD [address] [place] [address] Phone: tel: fax: Referral ID Status Reason Start Date Expiration Date Visits Re quested Visits Authorized [id number] Closed 11/10/2021 12/11/2022 1 1 Encounter Details Date Type Department Care Team (Latest Contact Info) Description 11/19/2021 9:58 AM CDT - 11/19/2021 11:59 PM CDT Hospital En[facility] [address] [place] [address] Bonilla Anton MD [address] [place] [address] Discharge Disposition: Home or Self Care (Routine [...] (four) hours as needed for Wheezing. 01/22/2022 furosemide (LASIX) 40 MG tablet Take 40 [...] 20 MEQ Tab CR tablet 10/14/2021 022 warfarin (COUMADIN) 5 MG tablet Take 5 mg by mouth daily. 01/22/2022 documented as of this encounter Plan of Treatment Not on file documented as of this encounter Procedures Procedure Name Priority Date/Time Associated Diagnosis Comments CTA AORTO ILIOFEM RUNOFF Routine 11/19/2021 12:03 PM CDT Hyperlipidemia, mixed PAD (peripheral artery disease) CREATININE STAT 11/19/2021 10:15 AM CDT documented in this encounter Results * CTA AORTO ILIOFEM [...] Severe proximal SMA stenosis. Ordered By: BONILLA ANTON Interpreted By: Aston Estevez MD, 11/23/2021 10:56 [...] as per recent MRI. Ordered By: BONILLA ANTON Interpreted By: Aston Estevez MD, 11/23/2021 8:44 [...] as per recent MRI. Ordered By: BONILLA ANTON Interpreted By: Aston Estevez MD, 11/23/2021 8:44 AM Bonilla Anton MD CT Edited Result - Final * (ABNORMAL) CREATININE (11/19/2021 10:15 AM CDT) CREATININE S/P/B 1.11 0.70 - 1.30 MG/DL 11/19/2021 10:37 AM CDT [facility] GFR ESTIMATE 71(L) >89 ML/MIN/1. 73 M2 11/19/2021 10:37 AM CDT [facility] GFR NOTES GFR REFERENCE S: 11/19/2021 10:37 AM CDT [facility] Comment: THE ESTIMATED GFR IS [...] ml/min/1.73 m2 G5,KIDNEY FAILURE: <15 ml/min/1.73 m2 11/19/2021 10:1 5 AM CDT Bonilla Anton MD LABORATORY Final Result [facility] [address] [place] [address], documented in this encounter Visit Diagnoses Diagnosis Hyperlipidemia, mixed Mixed hyperlipidemia PAD (peripheral artery disease) (CMS/HCC) Peripheral vascular disease, unspecified documented in this encounter Administered Medications Inactive Administered Medications - up to 3 most recent administrations Medication Order MAR Action Action Date Dose Rate Site iopamidol (ISOVUE-370) 76 % injection 130 mL 130 mL, Intravenous, IMG once as needed, Contrast, 1 dose, Starting on Clary 11/19/21 at 1205, Until Clary 11/19/21 at 1206 Given 11/19/2021 12:06 PM CDT 130 mLs documented in this encounter Care Teams Shake Backboard Notcher Relationship Specialty Start Date End Date Dominic Recinos MD [address] [place] [phone] PCP - General INTERNAL MEDICINE 09/18/21 Bonilla Anton MD [address] [place] [address] Consulting Physician INTERNAL MEDICINE 10/16/21 Celso Haro DO [address] [facility] [address] [place] [address] INTERNAL MEDICINE 10/16/21 documented as of this encounter
--- OUTSIDE RECORDS SUMMARY | 2024-02-23 13:09 | XMS_ITS | Encounter Summary ---
Author Organization [facility] Address [address] [place] [address]. [place], [place] [address] [place] [address] Care Team Providers Care Automobile Spring Repairer Name Role Phone Dominic Recinos MD Primary Care Provider [phone] Bonilla Anton MD Unavailable Celso Haro DO Unavailable Evan Olivarez DPM Unavailable [phone] Encounter Details Date Type Department Care Team (Late st Contact Info) Description 12/22/2021 9:33 AM CDT - 12/22/2021 11:59 PM CDT Hospital Encounter [facility] [address] [place] [address] Graciela Rodriguez, [facility] [address] [place] [address] Discharge Disposition: Home or Self [...] Procedure Name Priority Date/Time Associated Diagnosis Comments BASIC METABOLIC PANEL Routine 12/22/2021 9:45 AM CDT Ulcer of left lower extremity with fat layer exposed (CMS/HCC HHS/HCC) CBC W/DIFF AUTOMATED Routine 12/22/2021 9:45 AM CDT Ulcer of left lower extremity with fat layer exposed (CMS/HCC HHS/HCC) documented in this encounter Results * (ABNORMAL) BASIC METABOLIC PANEL (12/22/2021 9:45 AM CDT) SODIUM S/P/B 134(L) 136 - 145 MMOL/L 12/22/2021 10:12 AM CDT [facility] POTASSIUM S/P/B 4.5 3.5 - 5.1 MMOL/L 12/22/2021 10:12 AM T [facility] CHLORIDE S/P/B 94(L) 98 - 107 MMOL/L 12/22/2021 10:12 AM [facility] CO2 31.6 21.0 - 32.0 MMOL/L 12/22/2021 10:12 AM [facility] GLUCOSE 96 70 - 99 MG/DL 12/22/2021 10:12 AM [facility] Comment: FASTING GLUCOSE 100 TO 125 MG/DL IS CONSISTENT WITH IMPAIRED FASTING GLUCOSE. FASTING GLUCOSE >125 MG/DL IS CONSISTENT WITH DIABETES. RANDOM GLUCOSE >200 MG/DL WITH HYPERGLYCEMIC SYMPTOMS IS CONSISTENT WITH DIABETES. PER ADA GUIDELINES BUN 45(H) 6 - 24 MG/DL 12/22/2021 10:12 AM [facility] CREATININE S/P/B 1.48(H) 0.70 - 1.30 MG/DL 12/22/2021 10:12 AM [facility] CALCIUM S/P/B 8.9 8.4 - 10.5 MG/DL 12/22/2021 10:12 AM [facility] ANION GAP 8.4 5.0 - 15.0 MMOL/L 12/22/2021 10:12 AM [facility] OSMOLALITY (CALC) 289 MOSM/KG 022 10:12 AM [facility] Comment:REFERENCE RANGE NOT ESTABLISHED GFR ESTIMATE 50(L) >89 ML/MIN/1. 73 M2 12/22/2021 10:12 AM [facility] GFR NOTES GFR REFERENCE S: 12/22/2021 10:12 AM [facility] Comment: THE ESTIMATED GFR IS CALCULATED [...] ml/min/1.73 m2 12/22/2021 9:45 AM CDT Graciela Wiggins Michael [facility] Final Result [facility] [address] [email or web address] [address], * (ABNORMAL) CBC W/DIFF AUTOMATED (12/22/2021 9:45 AM CDT) WBC 6.7 4.0 - 10.8 x10'3/uL 12/22/2021 9:54 AM CDT [facility] RBC 4.85 4.50 - 6.10 x10'6/uL 12/22/2021 9:54 AM CDT [facility] HGB 12.0(L) 13.0 - 18.0 G/DL 12/22/2021 9:54 AM CDT [facility] HCT 38.9 37.0 - 52.0 % 12/22/2021 9:54 AM CDT [facility] MCV 80.2 78.0 - 100.0 FL 12/22/2021 9:54 AM CDT [facility] MCH 24.7(L) 27.0 - 31.0 PG 12/22/2021 9:54 AM CDT [facility] MCHC 30.8(L) 33.0 - 36.0 G/DL 12/22/2021 9:54 AM CDT [facility] RDW 18.8(H) 11.5 - 14.5 % 12/22/2021 9:54 AM CDT [facility] PLT 212 150 - 350 x10'3/uL 12/22/2021 9:54 AM CDT [facility] MPV 9.8 7.4 - 10.4 FL 12/22/2021 9:54 AM CDT [facility] DIFFERENTIAL COMMENT NORMAL REFERENCE RANGE NOT ESTABLISHED FOR THE PROPORTIONAL LEUKOCYTE DIFFERENTIAL. 12/22/2021 9:54 AM CDT [facility] SEG NEUTROPHILS 54.3 % 9:54 AM CDT [facility] LYMPHOCYTES 30.3 % 12/22/2021 9:54 AM CDT [facility] MONOCYTES 13.1 % 12/22/2021 9:54 AM CDT [facility] EOSINOPHILS 0.9 % 12/22/2021 9:54 AM CDT [facility] BASOPHILS 0.7 % 12/22/2021 9:54 AM CDT [facility] IMMATURE GRANS % 0.7 % 12/23/19 9:54 AM CDT [facility] NRBC 0.0 % 12/22/2021 9:54 AM CDT [facility] ABS. NEUTROPHILS 3.66 1.60 - 8.30 x10'3/uL 12/22/2021 9:54 AM CDT [facility] ABS. LYMPHOCYTES 2.04 0.80 - 4.70 x10'3/uL 12/22/2021 9:54 AM CDT [facility] ABS. MONOCYTES 0.88 0.00 - 1.50 x10'3/uL 12/22/2021 9:54 AM CDT [facility] ABS. EOSINOPHILS 0.06 0.00 - 0.40 x10'3/uL 12/22/2021 9:54 AM CDT [facility] ABS. BASOPHILS 0.05 0.00 - 0.20 x10'3/uL 12/22/2021 9:54 AM CDT [facility] ABS. IMMATURE GRANULOCYTES 0.05(H) 0.00 - 0.03 x10'3/uL 12/22/2021 9:54 AM CDT [facility] ABS. NUCLEATED RBC'S 0.00 0.00 x10'3/uL 12/22/2021 9:54 AM CDT [facility] 12/22/2021 9:45 AM CDT Graciela Rodriguez [facility] Final Result [facility] [address] [place] [address], documented in this encounter Visit Diagnoses Diagnosis Ulcer of left lower extremity with fat layer exposed (CMS/HCC HHS/HCC) documented in this encounter Care Teams Automobile Spring Repairer Relationship Specialty Start Date End Date Dominic Recinos MD [address] [place] [address] PCP - General INTERNAL MEDICINE 09/18/21 Bonilla Anton MD [address] [place] [address] Consulting Physician INTERNAL MEDICINE 10/16/21 Celso Haro DO [address] [facility] [address] [place] [address] INTERNAL MEDICINE 10/16/21 Evan Olivarez DPM [address] [place] [address] Consulting Physician PODIATRY/SURGERY 12/07/21 12/07/22 documented as of this encounter
--- OUTSIDE RECORDS SUMMARY | 2024-02-23 13:09 | XMS_ITS | Encounter Summary ---
Author Organization [facility] Address [facility]. [place], [place] [address] [place] [address] Care Team Providers Care Rug Inspector Name Role Phone Dominic Recinos MD Primary Care Provider [phone] Bonilla Anton MD Unavailable Celso Haro DO Unavailable Evan Olivarez DPM Unavailable [phone] Encounter Details Date Type Department Care Team (Latest Contact Info) Description 01/19/2022 Travel Social History Tobacco Use Types Packs/Day [...] suspected to have Coronavirus/COVID-19? No / Unsure 01/19/2022 1:12 PM EQUITY MANAGER documented as of this encounter Plan of Treatment Not on file documented as of this encounter Visit Diagnoses Not on filedocumented in this encounter Care Teams Rug Inspector Relationship Specialty Start Date End Date Dominic Recinos MD [address] [place] [address] PCP - General INTERNAL MEDICINE 09/18/21 Bonilla Anton MD [address] [place] [address] Consulting Physician INTERNAL MEDICINE 10/16/21 Celso Haro DO [address] [place], [place] [id number] INTERNAL MEDICINE 10/16/21 Evan Olivarez DPM [address] [place] [address] Consulting Physician PODIATRY/SURGERY 12/07/21 12/07/22 documented as of this encounter
--- OUTSIDE RECORDS SUMMARY | 2024-02-23 13:09 | XMS_ITS | Encounter Summary ---
Author Organization [facility] Address [address] [place] [address]. [place], [place] [address] [place] [address] Care Team Providers Care Rn Admission Name Role Phone Dominic Recinos MD Primary Care Provider [phone] Bonilla Anton MD Unavailable Celso Haro DO Unavailable Evan Olivarez DPM Unavailable [phone] Reason for Visit * Reason Comments Lab (SCAN) Encounter Details Date Type Department Care Team (Late st Contact Info) Description 01/19/2022 Scan [facility] [address] [place] [address] Scanned, Documents Lab (SCAN) Social History Tobacco Use Types Packs/Day Years [...] Coronavirus/COVID-19? No / Unsure 01/25/2022 7:[address] DRILL OPERATOR documented as of this encounter Plan of Treatment Not on file documented as of this encounter Procedures Procedure Name Priority Date/Time Associated Diagnosis Comments OUTSIDE LAB (SCAN ORDER) Routine 01/19/2022 12:[address] DRILL OPERATOR documented in this encounter Results * OUTSIDE LAB (SCAN) (01/19/2022 12:[address] DRILL OPERATOR) 01/19/2022 us Documents Scanned SCANNING Final Result [facility] documented in this encounter Visit Diagnoses Not on filedocumented in this encounter Care Teams Rn Admission Relationship Specialty Start Date End Date Domiinc Recinos MD [address] [place] [address] PCP - General INTERNAL MEDICINE 09/18/21 Bonilla Anton MD [address] [place] [address] Consulting Physician INTERNAL MEDICINE 10/16/21 Celso Haro DO [address] [facility] [address] [place], [place] [id number] INTERNAL MEDICINE 10/16/21 Evan Olivarez DPM [address] [facility] [place] [address] Consulting Physician PODIATRY/SURGERY 12/07/21 12/07/22 documented as of this encounter
--- OUTSIDE RECORDS SUMMARY | 2024-02-23 13:09 | XMS_ITS | Encounter Summary ---
Author Organization [facility] Address [facility] [place] [address] [place] [address] Care Team Providers Care Cath Laboratory Technician Name Role Phone Dominic Recinos MD Primary Care Provider [phone] Bonilla Anton MD Unavailable Celso Haro DO Unavailable Encounter Details Date Type Department Care Team (Latest Contact Info) Description 10/26/2021 Travel Social History Tobacco Use Types Packs/Day [...] on filedocumented in this encounter Care Teams Cath Laboratory Technician Relationship Specialty Start Date End Date Dominic Recinos MD [address] [place] [address] PCP - General INTERNAL MEDICINE 09/18/21 Bonilla Anton MD [address] [place] [address] Consulting Physician INTERNAL MEDICINE 10/16/21 Celso Haro DO [address] [facility] [address] [place] [address] INTERNAL MEDICINE 10/16/21 documented as of this encounter
--- OUTSIDE RECORDS SUMMARY | 2024-02-23 13:09 | XMS_ITS | Encounter Summary ---
Author Organization [facility] Address [facility] [place], [place] [address] [place] [address] Care Team Providers Care Care Worker Name Role Phone Dominic Recinos MD Primary Care Provider [phone] Bonilla Anton MD Unavailable Celso Haro DO Unavailable Evan Olivarez DPM Unavailable [phone] Encounter Details Date Type Department Care Team (Latest Contact Info) Description 12/08/2021 Travel Social History Tobacco Use Types Packs/Day [...] on filedocumented in this encounter Care Teams Care Worker Relationship Specialty Start Date End Date Dominic Recinos MD [address] [place] [address] PCP - General INTERNAL MEDICINE 09/18/21 Bonilla Anton MD [address] [place] [address] Consulting Physician INTERNAL MEDICINE 10/16/21 Celso Haro DO [address] [place] [address] INTERNAL MEDICINE 10/16/21 Evan Olivarez DPM [address] [place] [address] Consulting Physician PODIATRY/SURGERY 12/07/21 12/07/22 documented as of this encounter
--- OUTSIDE RECORDS SUMMARY | 2024-02-23 13:09 | XMS_ITS | Encounter Summary ---
Author Organization [facility] Address [address] [place] [address]. [place], [place] [address] [place] [address] Care Team Providers Care Consulting Services Manager Name Role Phone Dominic Recinos MD Primary Care Provider [phone] Bonilla Anton MD Unavailable Celso Haro DO Unavailable Encounter Details Date Type Department Care Team (Late st Contact Info) Description 11/30/2021 8:52 AM CDT - 11/30/2021 11:59 PM CDT Hospital Encounter [facility] [address] [place] [address] Graciela Rodriguez, [facility] [address] [place] [address] Discharge Disposition: Home or Self Care (Routine [...] encounter Progress Notes * DEVANG Chavarria - 11/30/2021 9:15 AM CDTEncounter addended by: Graciela Rodriguez NP on: 11/30/2021 10:04 AM Actions taken: Order list changed, Diagnosis association updated * Nieves Lowry RN - 11/30/2021 9:15 AM CDTEncounter addended by: Nieves Lowry RN on: 11/30/2021 4:28 PM Actions taken: MAR administration accepted documented in this encounter Plan of Treatment Not on file documented as of this encounter Visit Diagnoses Diagnosis Ulcer of left lower extremity with fat layer exposed ([facility]/HCC HHS/HCC)- Primary documented in this encounter Administered Medications Inactive Administered Medications - up to 3 most recent administrations Medication Order MAR Action Action Date Dose Rate Site gentian calixto 1 % solution Topical, Once, 1 dose, On Tue11/30/21 at 1030Indications:Ulcer of left lower extremity with fat layer exposed (CMS/HCC HHS/HCC) Given 11/30/2021 9:40 AM CDT lidocaine (XYLOCAINE) 2 % jelly 5 mL 5 mL, Topical, Once, 1 dose, On Tue11/30/21 at 0915Indications:Ulcer of left lower extremity with fat layer exposed (CMS/HCC HHS/HCC) Given 11/30/2021 9:16 AM CDT 5 mLs documented in this encounter Care Teams Consulting Services Manager Relationship Specialty Start Date End Date Dominic Recinos MD [address] [place] [address] PCP - General INTERNAL MEDICINE 09/18/21 Bonilla Anton MD [address] [place] [address] Consulting Physician INTERNAL MEDICINE 10/16/21 Celso Haro DO [address] [facility] [address] [place], [place] [phone] INTERNAL MEDICINE 10/16/21 documented as of this encounter
--- OUTSIDE RECORDS SUMMARY | 2024-02-23 13:09 | XMS_ITS | Encounter Summary ---
Author Organization [facility] Address [address] [place] [address]. [place] [address] [place] [address] Care Team Providers Care Sanitary Napkin Machine Tender Name Role Phone Dominic Recinos MD Primary Care Provider [phone] Bonilla Anton MD Unavailable Celso Haro DO Unavailable Encounter Details Date Type Department Care Team (Late st Contact Info) Description 11/04/2021 Abstract [facility] [address] [place] [id number] Abstract, Doc [facility] Social History Tobacco Use Types Packs/Day Years [...] Date/Time Associated Diagnosis Comments HEMOGLOBIN, GLYCOSYLATED Routine 09/21/2021 COMPREHENSIVE METABOLIC PANEL Routine 09/21/2021 CBC, MANUAL DIFF Routine 09/21/2021 documented in this encounter Results * COMPREHENSIVE METABOLIC PANEL (09/21/2021) SODIUM S/P/B 127 GLUCOSE 391 mg/dL AST 17 BUN 35 CREATININE S/P/B 1.23 0.7 - 1.3 CALCIUM S/P/B 9.4 POTASSIUM S/P/B 4.6 CHLORIDE S/P/B 90 ALT 14 GFR ESTIMATE 63 us Doc [facility] Final Result * CBC, MANUAL DIFF (09/21/2021) WBC 8.2 HGB 13.0 HCT 41.6 PLT 233 us Doc [facility] Final Result * HEMOGLOBIN, GLYCOSYLATED (09/21/2021) HGB A1C 8.9 % us Doc [facility] Final Result documented in this encounter Visit Diagnoses Not on filedocumented in this encounter Care Teams Sanitary Napkin Machine Tender Relationship Specialty Start Date End Date Dominic Recinos MD [address] [place] [address] PCP - General INTERNAL MEDICINE 09/18/21 Bonilla Anton MD [address] [place] [address] Consulting Physician INTERNAL MEDICINE 10/16/21 Celso Haro DO [address] [facility] [address] [place], [place] [phone] INTERNAL MEDICINE 10/16/21 documented as of this encounter
--- OUTSIDE RECORDS SUMMARY | 2024-02-23 13:09 | XMS_ITS | Encounter Summary ---
Author Organization [facility] Address [address] [place] [address]. [place], [place] [address] [place] [address] Care Team Providers Care Hand Molder Meat Name Role Phone Dominic Recinos MD Primary Care Provider [phone] Bonilla Anton MD Unavailable Celso Haro DO Unavailable Encounter Details Date Type Department Care Team (Late st Contact Info) Description 11/16/2021 8:40 AM CDT - 11/16/2021 11:59 PM CDT Hospital Encounter [facility] [address] [place] [address] Graciela Rodriguez, [facility] [address] [place] [address] Discharge Disposition: Home or Self Care (Routine [...] Progress Notes * Nieves Lowry RN - 11/16/2021 9:30 AM CDTEncounter addended by: Nieves Lowry RN on: 11/16/2021 10:06 AM Actions taken: MAR administration accepted documented [...] 5 mL, Topical, Once, 1 dose, On Tue11/16/21 at 0930Indications:Ulcer of left lower extremity with fat layer exposed (CMS/HCC HHS/HCC) Given 11/16/2021 9:30 AM CDT 5 mLs documented in this encounter Care Teams Hand Molder Meat Relationship Specialty Start Date End Date Dominic Recinos MD [address] [place] [address] PCP - General INTERNAL MEDICINE 09/18/21 Bonilla Anton MD [address] [place] [address] Consulting Physician INTERNAL MEDICINE 10/16/21 Celso Haro DO [address] [place] [address] INTERNAL MEDICINE 10/16/21 documented as of this encounter
--- OUTSIDE RECORDS SUMMARY | 2024-02-23 13:09 | XMS_ITS | Encounter Summary ---
Author Organization [facility] Address [address] [place] [address]. [place], [place] [address] [place] [address] Care Team Providers Care Loan Coordinator Name Role Phone Dominic Recinos MD Primary Care Provider [phone] Bonilla Anton MD Unavailable Celso Haro DO Unavailable Encounter Details Date Type Department Care Team (Late st Contact Info) Description 11/23/2021 8:43 AM CDT - 11/23/2021 11:59 PM CDT Hospital Encounter [facility] [address] [place] [address] Graciela Rodriguez, [facility] [address] [place] [address] Discharge Disposition: Home or Self Care (Routine [...] Progress Notes * Nieves Lowry RN - 11/23/2021 9:15 AM CDTEncounter addended by: Nieves Lowry RN on: 11/23/2021 9:55 AM Actions taken: MAR administration accepted * DEVANG Chavarria - 11/23/2021 9:15 AM CDTEncounter addended by: Graciela Rodriguez NP on: 11/23/2021 9:56 AM Actions taken: Order list changed, Diagnosis association updated * Nieves Lowry RN - 11/23/2021 9:15 AM CDTEncounter addended by: Nieves Lowry RN on: 11/23/2021 10:06 AM Actions taken: MAR administration accepted [...] % solution Topical, Once, 1 dose, On 11/23/21 at 1015Indications:Diabetic ulcer of left heel associated with type 2 diabetes mellitus, with necrosis of muscle (CMS/HCC HHS/HCC) Given 11/23/2021 9:55 AM CDT lidocaine (XYLOCAINE) 2 % jelly 5 mL 5 mL, Topical, Once, 1 dose, On 11/23/21 at 0930Indications:Diabetic ulcer of left heel associated with type 2 diabetes mellitus, with necrosis of muscle (CMS/HCC HHS/HCC) Given 11/23/2021 9:20 AM CDT 5 mLs documented in this encounter Care Teams Loan Coordinator Relationship Specialty Start Date End Date Dominic Recinos MD [address] [place] [address] PCP - General INTERNAL MEDICINE 09/18/21 Bonilla Anton MD [address] [place] [address] Consulting Physician INTERNAL MEDICINE 10/16/21 Celso Haro DO [address] [email or web address] [address] [place], [place] [id number] INTERNAL MEDICINE 10/16/21 documented as of this encounter
--- OUTSIDE RECORDS SUMMARY | 2024-02-23 13:09 | XMS_ITS | Encounter Summary ---
Author Organization [facility] Address [facility]6 [facility] [place], [place] [address] [place] [address] Care Team Providers Care Sandstone Splitter Name Role Phone Dominic Recinos MD Primary Care Provider [phone] Bonilla Anton MD Unavailable Celso Haro DO Unavailable Evan Olivarez DPM Unavailable [phone] Encounter Details Date Type Department Care Team (Latest Contact Info) Description 01/04/2022 Travel Social History Tobacco Use Types Packs/Day [...] on filedocumented in this encounter Care Teams Sandstone Splitter Relationship Specialty Start Date End Date Dominic Recinos MD [address] [place] [address] PCP - General INTERNAL MEDICINE 09/18/21 Bonilla Anton MD [address] [place] [address] Consulting Physician INTERNAL MEDICINE 10/16/21 Celso Haro DO [address] [place] [address] INTERNAL MEDICINE 10/16/21 Evan Olivarez DPM [address] [place] [address] Consulting Physician PODIATRY/SURGERY 12/07/21 12/07/22 documented as of this encounter
--- OUTSIDE RECORDS SUMMARY | 2024-02-23 13:09 | XMS_ITS | Encounter Summary ---
Author Organization [facility] Address [address] [place] [address]. 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, with necrosis of muscle (CMS/HCC HHS/HCC) Procedures MRI ANKLE LT WWO CON Graciela Rodriguez FNP [address] [address] Phone: tel: fax: Referral ID Status Reason Start Date Expiration Date Visits Re quested Visits Authorized [id number] Closed 10/12/2021 10/12/2022 1 1 * Imaging (Routine) - Closed Specialty Diagnoses / Procedures Referred By Contac t Referred To Contact RADIOLOGY Diagnoses Diabetic ulcer of left heel associated with type 2 diabetes mellitus, with necrosis of muscle (CMS/HCC HHS/HCC) Procedures MRI FOOT LT WWO CON Graciela Rodriguez FNP [address] [address] Phone: tel: fax: Referral ID Status Reason Start Date Expiration Date Visits Re quested Visits Authorized [id number] Closed 10/02/2021 10/02/2022 1 1 Reason for Visit * Imaging (Routine) - Closed Specialty Diagnoses / Procedures Referred By Mark t Referred To Contact RADIOLOGY Diagnoses Diabetic ulcer of left heel associated with type 2 diabetes mellitus, with necrosis of muscle (CMS/HCC HHS/HCC) Procedures MRI FOOT LT WWO CON Graciela Rodriguez FNP [address] [place] [address] Phone: tel: fax: Referral ID Status Reason Start Date Expiration Date Visits Re quested Visits Authorized [id number] Closed 10/02/2021 10/02/2022 1 1 Encounter Details Date Type Department Care Team (Late st Contact Info) Description 11/12/2021 8:30 AM CDT - 11/12/2021 11:59 PM CDT Hospital Encounter [facility] MRI [address] [place] [address] Dominic Recinos MD [address] [place] [address] Discharge Disposition: Home or Self Care (Routine [...] Procedure Name Priority Date/Time Associated Diagnosis Comments MRI ANKLE LT WWO CON Routine 11/12/2021 12:35 PM CDT Diabetic ulcer of left heel associated with type 2 diabetes mellitus, with necrosis of muscle (CMS/HCC HHS/HCC) MRI FOOT LT WWO CON Routine 11/12/2021 1 2:10 PM CDT Diabetic ulcer of left heel associated with type 2 diabetes mellitus, with necrosis of muscle (CMS/HCC HHS/HCC) XR CHEST PA+LAT STAT 11/12/2021 9:25 AM CDT Encounter for imaging to screen for metal prior to magnetic resonance imaging (MRI) documented in this encounter Results * MRI ANKLE LT WWO CON (11/12/2021 12:35 PM CDT) Anatomical Region Laterality Modality Ankle Magnetic Resonan ce 11/17/2021 9:07 AM CDT Impressions 11/17/2021 9:19 AM CDT Impression: 1. Diffuse cellulitis involving the ankle, hindfoot and dorsal forefoot. No drainable fluid collection or abscess is seen. 2. No distinct marrow signal changes of osteomyelitis identified involving the left foot or ankle. 3. Markedly abnormal appearance of the tibial talar joint as described and favored chronic. Ordered By: GRACIELA RODRIGUEZ Interpreted By: Jg Martinez MD, 11/17/2021 9:07 AM Narrative 11/17/2021 9:19 AM CDT Examination: MRI FOOT LT WWO CON, MRI ANKLE LT WWO CON Exam time: 11/12/2021 10:28 AM Clinical Information: Left heel ulcer and swelling with concern for osteomyelitis. Comparison: None. Technique: Multiplanar, multisequence MR images of the left foot and ankle were obtained before and after the administration of contrast. 20 mL of dotarem was administered without adverse event. Findings: There is image quality degradation related to motion artifact as well as susceptibility artifact related to surgical changes. Additionally, fat suppression was not utilized on the postcontrast T1 sequences, limiting evaluation for enhancement. TENDONS: Achilles tendon: Intact. Anterior tendons: Normal. No tear or tendon sheath effusion. Medial tendons: Normal. No tear or tendon sheath effusion. Peroneal tendons: Normal. Normally situated with no retinacular disruption/stripping, tendon tear, or tendon sheath effusion. LIGAMENTS: Lateral collateral ligamentous complex: Anterior talofibular: Appears to be intact but poorly assessed. Posterior talofibular: Intact. Calcaneofibular: Intact. Medial ligamentous complex: Superficial and deep deltoid: Not well characterized on this study and fairly attenuated. OSSEOUS STRUCTURES: Severe chronic appearing degenerative changes of the tibial talar joint, with significant abnormal remodeling of both osseous structures along with degenerative fragmentation. Superimposed surgical changes are seen at this region. This may represent sequelae of previous injury or perhaps neuropathic joint. No definite acute fracture is seen involving the foot or ankle. No distinct marrow signal abnormalities are identified to suggest underlying osteomyelitis. 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 FLUID: No joint or retrocalcaneal bursal effusions. MISCELLANEOUS SOFT TISSUES: Sinus tarsi: Normal. Tarsal tunnel: No abnormality. Plantar fascia: Normal. OTHER: There is diffuse soft tissue edema about the ankle and hindfoot suggestive of cellulitis. Potential small ulcer involving the heel. No fluid collection or abscess is appreciated. No distinct findings of osteomyelitis. Similar findings are identified involving the dorsal forefoot again suggestive of cellulitis. No definite underlying osteomyelitis or drainable fluid collection is seen. There is slightly increased signal within the intrinsic foot musculature, which may indicate a degree of myositis. Procedure Note Jg Martinez MD - 11/17/2021 Examination: MRI FOOT LT WWO CON, MRI ANKLE LT WWO CON Exam time: 11/12/2021 10:28 AM Clinical Information: Left heel ulcer and swelling with concern forosteomyelitis. Comparison: None. Technique: Multiplanar, multisequence MR images of the left foot and anklewere obtained before and after the administration of contrast. 20 mL ofdotarem was administered without adverse event. Findings: There is image quality degradation related to motion artifact as well assusceptibility artifact related to surgical changes. Additionally, fatsuppression was not utilized on the postcontrast T1 sequences, limitingevaluation for enhancement. TENDONS: Achilles tendon: Intact. Anterior tendons: Normal. No tear or tendon sheath effusion. Medial tendons: Normal. No tear or tendon sheath effusion. Peroneal tendons: Normal. Normally situated with no retinaculardisruption/stripping, tendon tear, or tendon sheath effusion. LIGAMENTS: Lateral collateral ligamentous complex: Anterior talofibular: Appears to be intact but poorly assessed. Posterior talofibular: Intact. Calcaneofibular: Intact. Medial ligamentous complex: Superficial and deep deltoid: Not well characterized on this study andfairly attenuated. OSSEOUS STRUCTURES: Severe chronic appearing degenerative changes of thetibial talar joint, with significant abnormal remodeling of both osseousstructures along with degenerative fragmentation. Superimposed surgicalchanges are seen at this region. This may represent sequelae of previousinjury or perhaps neuropathic joint. No definite acute fracture is seen involving the foot or ankle. Nodistinct marrow signal abnormalities are identified to suggest underlyingosteomyelitis. Osteoarthritic degenerative changes of the first MTP jointwith mild marrow edema. FLUID: No joint or retrocalcaneal bursal effusions. MISCELLANEOUS SOFT TISSUES: Sinus tarsi: Normal. Tarsal tunnel: No abnormality. Plantar fascia: Normal. OTHER: There is diffuse soft tissue edema about the ankle and hindfootsuggestive of cellulitis. Potential small ulcer involving the heel. Nofluid collection or abscess is appreciated. No distinct findings ofosteomyelitis. Similar findings are identified involving the dorsalforefoot again suggestive of cellulitis. No definite underlyingosteomyelitis or drainable fluid collection is seen. There is slightlyincreased signal within the intrinsic foot musculature, which may indicatea degree of myositis. Impression: 1. Diffuse cellulitis involving the ankle, hindfoot and dorsal forefoot.No drainable fluid collection or abscess is seen. 2. No distinct marrow signal changes of osteomyelitis identified involvingthe left foot or ankle. 3. Markedly abnormal appearance of the tibial talar joint as described andfavored chronic. Ordered By: GRACIELA RODRIGUEZ Interpreted By: Jg Martinez MD, 11/17/2021 9:07 AM Graciela Rodriguez [facility] MRI Final Result * MRI FOOT LT WWO CON (11/12/2021 12:10 PM CDT) Anatomical Region Laterality Modality Foot Magnetic Resonan ce 11/17/2021 9:07 AM CDT Impressions 11/17/2021 9:19 AM CDT Impression: 1. Diffuse cellulitis involving the ankle, hindfoot and dorsal forefoot. No drainable fluid collection or abscess is seen. 2. No distinct marrow signal changes of osteomyelitis identified involving the left foot or ankle. 3. Markedly abnormal appearance of the tibial talar joint as described and favored chronic. Ordered By: GRACIELA RODRIGUEZ Interpreted By: Jg Martinez MD, 11/17/2021 9:07 AM Narrative 11/17/2021 9:19 AM CDT Examination: MRI FOOT LT WWO CON, MRI ANKLE LT WWO CON Exam time: 11/12/2021 10:28 AM Clinical Information: Left heel ulcer and swelling with concern for osteomyelitis. Comparison: None. Technique: Multiplanar, multisequence MR images of the left foot and ankle were obtained before and after the administration of contrast. 20 mL of dotarem was administered without adverse event. Findings: There is image quality degradation related to motion artifact as well as susceptibility artifact related to surgical changes. Additionally, fat suppression was not utilized on the postcontrast T1 sequences, limiting evaluation for enhancement. TENDONS: Achilles tendon: Intact. Anterior tendons: Normal. No tear or tendon sheath effusion. Medial tendons: Normal. No tear or tendon sheath effusion. Peroneal tendons: Normal. Normally situated with no retinacular disruption/stripping, tendon tear, or tendon sheath effusion. LIGAMENTS: Lateral collateral ligamentous complex: Anterior talofibular: Appears to be intact but poorly assessed. Posterior talofibular: Intact. Calcaneofibular: Intact. Medial ligamentous complex: Superficial and deep deltoid: Not well characterized on this study and fairly attenuated. OSSEOUS STRUCTURES: Severe chronic appearing degenerative changes of the tibial talar joint, with significant abnormal remodeling of both osseous structures along with degenerative fragmentation. Superimposed surgical changes are seen at this region. This may represent sequelae of previous injury or perhaps neuropathic joint. No definite acute fracture is seen involving the foot or ankle. No distinct marrow signal abnormalities are identified to suggest underlying osteomyelitis. 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 FLUID: No joint or retrocalcaneal bursal effusions. MISCELLANEOUS SOFT TISSUES: Sinus tarsi: Normal. Tarsal tunnel: No abnormality. Plantar fascia: Normal. OTHER: There is diffuse soft tissue edema about the ankle and hindfoot suggestive of cellulitis. Potential small ulcer involving the heel. No fluid collection or abscess is appreciated. No distinct findings of osteomyelitis. Similar findings are identified involving the dorsal forefoot again suggestive of cellulitis. No definite underlying osteomyelitis or drainable fluid collection is seen. There is slightly increased signal within the intrinsic foot musculature, which may indicate a degree of myositis. Procedure Note Jg Martinez MD - 11/17/2021 Examination: MRI FOOT LT WWO CON, MRI ANKLE LT WWO CON Exam time: 11/12/2021 10:28 AM Clinical Information: Left heel ulcer and swelling with concern forosteomyelitis. Comparison: None. Technique: Multiplanar, multisequence MR images of the left foot and anklewere obtained before and after the administration of contrast. 20 mL ofdotarem was administered without adverse event. Findings: There is image quality degradation related to motion artifact as well assusceptibility artifact related to surgical changes. Additionally, fatsuppression was not utilized on the postcontrast T1 sequences, limitingevaluation for enhancement. TENDONS: Achilles tendon: Intact. Anterior tendons: Normal. No tear or tendon sheath effusion. Medial tendons: Normal. No tear or tendon sheath effusion. Peroneal tendons: Normal. Normally situated with no retinaculardisruption/stripping, tendon tear, or tendon sheath effusion. LIGAMENTS: Lateral collateral ligamentous complex: Anterior talofibular: Appears to be intact but poorly assessed. Posterior talofibular: Intact. Calcaneofibular: Intact. Medial ligamentous complex: Superficial and deep deltoid: Not well characterized on this study andfairly attenuated. OSSEOUS STRUCTURES: Severe chronic appearing degenerative changes of thetibial talar joint, with significant abnormal remodeling of both osseousstructures along with degenerative fragmentation. Superimposed surgicalchanges are seen at this region. This may represent sequelae of previousinjury or perhaps neuropathic joint. No definite acute fracture is seen involving the foot or ankle. Nodistinct marrow signal abnormalities are identified to suggest underlyingosteomyelitis. Osteoarthritic degenerative changes of the first MTP jointwith mild marrow edema. FLUID: No joint or retrocalcaneal bursal effusions. MISCELLANEOUS SOFT TISSUES: Sinus tarsi: Normal. Tarsal tunnel: No abnormality. Plantar fascia: Normal. OTHER: There is diffuse soft tissue edema about the ankle and hindfootsuggestive of cellulitis. Potential small ulcer involving the heel. Nofluid collection or abscess is appreciated. No distinct findings ofosteomyelitis. Similar findings are identified involving the dorsalforefoot again suggestive of cellulitis. No definite underlyingosteomyelitis or drainable fluid collection is seen. There is slightlyincreased signal within the intrinsic foot musculature, which may indicatea degree of myositis. Impression: 1. Diffuse cellulitis involving the ankle, hindfoot and dorsal forefoot.No drainable fluid collection or abscess is seen. 2. No distinct marrow signal changes of osteomyelitis identified involvingthe left foot or ankle. 3. Markedly abnormal appearance of the tibial talar joint as described andfavored chronic. Ordered By: GRACIELA RODRIGUEZ Interpreted By: Jg Martinez MD, 11/17/2021 9:07 AM Graciela Rodriguez CHILD STUDY TEAM DIRECTOR MRI Final Result * XR CHEST PA+LAT (11/12/2021 9:25 AM CDT) Anatomical Region Laterality Modality Chest Radiographic Le ging 11/12/2021 10:0 0 AM CDT Impressions 11/12/2021 10:03 AM CDT Impression: Intact pacemaker. ??Cardiomegaly, but no acute cardiopulmonary disease process. Referred By: ?? Interpreted By: Vivek Kang MD, 11/12/2021 10:00 AM Narrative 11/12/2021 10:03 AM CDT Date: 11/12/2021 9:22 AM Exam: XR CHEST PA+LAT Comparison: No comparisons. Technique: Two-view chest. History: Pacemaker clearance. Findings: There is a single lead pacemaker with the lead projecting at the right ventricle. ??The pacemaker lead and generator appear intact. ??There are median sternotomy wires from prior open heart surgery. ??The cardiac silhouette is somewhat enlarged. ??The pulmonary vascularity is within normal limits. ??There are no consolidations nor effusions. ??There is no pneumothorax. ??There are scattered calcified granulomas in the left lung and calcified lymph nodes in the left hilum. ??There is multilevel degenerative spondylosis in the spine. Procedure Note Vivek Kang MD - 11/12/2021 Date: 11/12/2021 9:22 AM Exam: XR CHEST PA+LAT Comparison: No comparisons. Technique: Two-view chest. History: Pacemaker clearance. Findings: There is a single lead pacemaker with the lead projecting at theright ventricle. The pacemaker lead and generator appear intact. Thereare median sternotomy wires from prior open heart surgery. The cardiacsilhouette is somewhat enlarged. The pulmonary vascularity is withinnormal limits. There are no consolidations nor effusions. There is nopneumothorax. There are scattered calcified granulomas in the left lungand calcified lymph nodes in the left hilum. There is multileveldegenerative spondylosis in the spine. Impression: Intact pacemaker. Cardiomegaly, but no acute cardiopulmonarydisease process. Referred By: Interpreted By: Vivek Kang MD, 11/12/2021 10:00 AM us Francisco Braden MD GENERAL IMAGING Final Resu lt documented in this encounter Visit Diagnoses Diagnosis Diabetic ulcer of left heel associated with type 2 diabetes mellitus, with necrosis of muscle (CMS/HCC HHS/HCC) Encounter for imaging to screen for metal prior to magnetic resonance imaging (MRI) Special screening for other specified conditions documented in this encounter Administered Medications Inactive Administered Medications - up to 3 most recent administrations Medication Order MAR Action Action Date Dose Rate Site gadoterate meglumine (DOTAREM) 5 MMOL/10ML injection 20 mL 20 mL, Intravenous, IMG once as needed, Contrast, Contrast, 1 dose, Starting on Clary 11/12/21 at 1211, Until Clary 11/12/21 at 1211 Given 11/12/2021 12:11 PM CDT 20 mLs documented in this encounter Care Teams Prepared Foods Service Team Member Relationship Specialty Start Date End Date Dominic Reicnos MD [address] [place] [id number] PCP - General INTERNAL MEDICINE 09/18/21 Bonilla Anton MD [address] [place] [address] Consulting Physician INTERNAL MEDICINE 10/16/21 Celso Haro DO [address] [facility] [address] [place], [place] [id number] INTERNAL MEDICINE 10/16/21 documented as of this encounter
--- OUTSIDE RECORDS SUMMARY | 2024-02-23 13:09 | XMS_ITS | Encounter Summary ---
Author Organization [facility] Address [address] [place] [address]. [place], [place] [address] [place] [address] Care Team Providers Care Hand Bookbinder Name Role Phone Dominic Recinos MD Primary Care Provider Bonilla Anton MD Unavailable Celso Haro DO Unavailable Encounter Details Date Type Department Care Team (Late st Contact Info) Description 11/02/2021 8:51 AM CDT - 11/02/2021 11:59 PM CDT Hospital Encounter [facility] [address] [place] [id number] Graciela Rodriguez, [facility] [address] [place] [address] Discharge Disposition: Home or Self Care (Routine [...] TO INJECT INSULIN TWICE A DAY 06/17/2021 cephALEXin (KEFLEX) 500 MG capsuleIndication s:Diabetic ulcer of left heel associated with type 2 diabetes mellitus, with necrosis of muscle (CMS/HCC HHS/HCC) Take 1 capsule (500 mg total) by mouth 3 (three) times daily for 10 days. 30 capsule 11/02/2021 11/12/2021 potassium chloride CR 20 MEQ Tab CR [...] 5 mL, Topical, Once, 1 dose, On 11/02/21 at 1015Indications:Diabetic ulcer of left heel associated with type 2 diabetes mellitus, with necrosis of muscle (CMS/HCC HHS/HCC) Given 11/02/2021 9:30 AM CDT 5 mLs documented in this encounter Care Teams Hand Bookbinder Relationship Specialty Start Date End Date Dominic Recinos MD [address] [place] [id number] PCP - General INTERNAL MEDICINE 09/18/21 Bonilla Anton MD [address] [place] [address] Consulting Physician INTERNAL MEDICINE 10/16/21 Celso Haro DO [address] [place] [address] INTERNAL MEDICINE 10/16/21 documented as of this encounter
--- OUTSIDE RECORDS SUMMARY | 2024-02-23 13:09 | XMS_ITS | Encounter Summary ---
Author Organization [facility] Address [facility] [facility]. [place], [place] [address] [place] [address] Care Team Providers Care Personal Lines Appraiser Name Role Phone Dominic Recinos MD Primary Care Provider [phone] Bonilla Anton MD Unavailable Celso Haro DO Unavailable Evan Olivarez DPM Unavailable [phone] Encounter Details Date Type Department Care Team (Latest Contact Info) Description 12/22/2021 Travel Social History Tobacco Use Types Packs/Day [...] on filedocumented in this encounter Care Teams Personal Lines Appraiser Relationship Specialty Start Date End Date Dominic Recinos MD [address] [place] [address] PCP - General INTERNAL MEDICINE 09/18/21 Bonilla Anton MD [address] [place] [address] Consulting Physician INTERNAL MEDICINE 10/16/21 Celso Haro DO [address] [place] [address] INTERNAL MEDICINE 10/16/21 Evan Olivarez DPM [address] [place] [address] Consulting Physician PODIATRY/SURGERY 12/07/21 12/07/22 documented as of this encounter
--- OUTSIDE RECORDS SUMMARY | 2024-02-23 13:10 | XMS_ITS | Encounter Summary ---
Author Organization [facility] Address [address] [place] [address]. [place] [address] [place] [address] Care Team Providers Care Hairspring Studder Name Role Phone Dominic Recinos MD Primary Care Provider [phone] Encounter Details Date Type Department Care Team (Late st Contact Info) Description 10/12/2021 11:02 AM CDT - 10/12/2021 11:59 PM CDT Hospital Encounter [facility] [address] [place] [id number] Graciela Rodriguez, [facility] [address] [place] [address] Discharge Disposition: Home or Self Care (Routine [...] suspected to have Coronavirus/COVID-19? No / Unsure 10/12/2021 11:02 AM CDT documented as of this encounter [...] TO INJECT INSULIN TWICE A DAY 06/17/2021 documented as of this encounter Progress Notes * DEVANG Chavarria - 10/12/2021 11:10 AM CDT Patient's son informed of results. MRI pending. Results shared with PCP documented in this encounter Plan of Treatment Not on file documented as of this encounter Procedures Procedure Name Priority Date/Time Associated Diagnosis Comments HEMOGLOBIN, GLYCOSYLATED Routine 10/12/2021 11:22 AM CDT Diabetic ulcer of left heel associated with type 2 diabetes mellitus, with necrosis of muscle (CMS/HCC HHS/HCC) SED RATE, ERYTHROCYTE (ESR) Routine 10/12/2021 11:22 AM CDT Diabetic ulcer of left heel associated with type 2 diabetes mellitus, with necrosis of muscle (CMS/HCC HHS/HCC) COMPREHENSIVE METABOLIC PANEL Routine 10/12/2021 11:22 AM CDT Diabetic ulcer of left heel associated with type 2 diabetes mellitus, with necrosis of muscle (CMS/HCC HHS/HCC) C-REACTIVE PROTEIN Routine 10/12/2021 11 :22 AM CDT Diabetic ulcer of left heel associated with type 2 diabetes mellitus, with necrosis of muscle (CMS/HCC HHS/HCC) CBC W/DIFF AUTOMATED Routine 10/12/2021 11:22 AM CDT Diabetic ulcer of left heel associated with type 2 diabetes mellitus, with necrosis of muscle (CMS/HCC HHS/HCC) documented in this encounter Results * (ABNORMAL) HEMOGLOBIN, GLYCOSYLATED (10/12/2021 11:22 AM CDT) HGB A1C 8.8(H) <5.7 % 10/12/2021 11:59 AM CDT [facility] Comment: 5.7 TO 6.4% INCREASED RISK OF DIABETES > OR = 6.5% CONSISTENT WITH DIABETES PER ADA GUIDELINES ESTIMATED AVG GLUCOSE 206(H) 70 - 140 MG/DL 10/12/2021 11:59 AM CDT [facility] 10/12/2021 11:2 2 AM CDT Graciela Rodriguez [facility] Final Result Performing Organization Address City/[facility]/ZIP Co de Phone Number [facility] [address] [place] [phone], * (ABNORMAL) C-REACTIVE PROTEIN (10/12/2021 11:22 AM CDT) C-REACTIVE PROTEIN 3.31(H) <0.30 mg/dL 10/12/2021 12:03 PM CDT [facility] 10/12/2021 11:2 2 AM CDT Graciela Rodriguez [facility] Final Result Performing Organization Address [facility] Co de Phone Number [facility] [address] [place] [phone], * (ABNORMAL) SED RATE, ERYTHROCYTE (ESR) (10/12/2021 11:22 AM CDT) ESR 35(H) 0 - 20 MM/HR 10/12/2021 4:10 PM CDT [facility] Comment:NOTE: ANEMIA, IF PRE SENT, MAY CAUSE AN ELEVATED SEDIMENTATION RATE. 10/12/2021 11:2 2 AM CDT Graciela Rodriguez [facility] Final Result Performing Organization Address [facility] Co de Phone Number [facility] [address] [place] [phone], * (ABNORMAL) COMPREHENSIVE METABOLIC PANEL (10/12/2021 11:22 AM CDT) SODIUM S/P/B 134(L) 136 - 145 MMOL/L 10/12/2021 12:03 PM CDT [facility] POTASSIUM S/P/B 4.3 3.5 - 5.1 MMOL/L 10/12/2021 12:03 PM T [facility] CHLORIDE S/P/B 97(L) 98 - 107 MMOL/L 10/12/2021 12:03 PM T [facility] CO2 30.7 21.0 - 32.0 MMOL/L 10/12/2021 12:03 PM T [facility] GLUCOSE 164(H) 70 - 99 MG/DL 10/12/2021 12:03 PM T [facility] Comment: FASTING GLUCOSE 100 TO 125 MG/DL IS CONSISTENT WITH IMPAIRED FASTING GLUCOSE. FASTING GLUCOSE >125 MG/DL IS CONSISTENT WITH DIABETES. RANDOM GLUCOSE >200 MG/DL WITH HYPERGLYCEMIC SYMPTOMS IS CONSISTENT WITH DIABETES. PER ADA GUIDELINES BUN 15 6 - 24 MG/DL 10/12/2021 12:03 PM T [facility] CREATININE S/P/B 1.25 0.70 - 1.30 MG/DL 10/12/2021 12:03 PM T [facility] CALCIUM S/P/B 9.0 8.4 - 10.5 MG/DL 10/12/2021 12:03 PM [facility] BILIRUBIN TOTAL S/P/B 0.3 0.2 - 1.0 MG/DL 10/12/2021 12:03 PM T [facility] Comment: THIS ASSAY IS NOT RECOMMENDED FOR PATIENTS UNDERGOING TREATMENT WITH ELTROMBOPAG DUE TO THE POTENTIAL FOR FALSELY ELEVATED RESULTS. ALKALINE PHOSPHATASE S/P/B 88 45 - 115 U/L 10/12/2021 12:03 PM T [facility] AST 20 15 - 37 U/L 10/12/2021 12:03 PM T [facility] ALT 26 16 - 63 U/L 10/12/2021 12:03 PM T [facility] TOTAL PROTEIN S/P/B 7.1 6.4 - 8.2 G/DL 10/12/2021 12:03 PM T [facility] ALBUMIN S/P/B 3.3(L) 3.4 - 5.0 G/DL 10/12/2021 12:03 PM CDT [facility] ANION GAP 6.3 5.0 - 15.0 MMOL/L 10/12/2021 12:03 PM CDT [facility] OSMOLALITY (CALC) 282 MOSM/KG 022 12:03 PM CDT [facility] Comment:REFERENCE RANGE NOT ESTABLISHED GFR ESTIMATE 62(L) >89 ML/MIN/1. 73 M2 10/12/2021 12:03 PM CDT [facility] GFR NOTES GFR REFERENCE S: 10/12/2021 12:03 PM CDT [facility] Comment: THE ESTIMATED GFR IS CALCULATED [...] ml/min/1.73 m2 G5,KIDNEY FAILURE: <15 ml/min/1.73 m2 10/12/2021 11:2 2 AM CDT [facility] Final Result [facility] [address] [place] [address], * (ABNORMAL) CBC W/DIFF AUTOMATED (10/12/2021 11:22 AM CDT) WBC 11.3(H) 4.0 - 10.8 x10'3/uL 10/12/2021 11:44 AM CDT [facility] RBC 4.56 4.50 - 6.10 x10'6/uL 10/12/2021 11:44 AM CDT [facility] HGB 11.5(L) 13.0 - 18.0 G/DL 10/12/2021 11:44 AM CDT [facility] HCT 37.1 37.0 - 52.0 % 10/12/2021 11:44 AM CDT [facility] MCV 81.4 78.0 - 100.0 FL 10/12/2021 11:44 AM CDT [facility] MCH 25.2(L) 27.0 - 31.0 PG 10/12/2021 11:44 AM CDT [facility] MCHC 31.0(L) 33.0 - 36.0 G/DL 10/12/2021 11:44 AM CDT [facility] RDW 19.9(H) 11.5 - 14.5 % 10/12/2021 11:44 AM CDT [facility] PLT 168 150 - 350 x10'3/uL 10/12/2021 11:44 AM CDT [facility] MPV 9.6 7.4 - 10.4 FL 10/12/2021 11:44 AM CDT [facility] DIFFERENTIAL COMMENT NORMAL REFERENCE RANGE NOT ESTABLISHED FOR THE PROPORTIONAL LEUKOCYTE DIFFERENTIAL. 10/12/2021 11:44 AM CDT [facility] SEG NEUTROPHILS 73 % 12:53 PM CDT [facility] METAMYELOCYTES 3 % 10/12/2021 12:53 PM CDT [facility] LYMPHOCYTES 13 % 10/12/2021 12:53 PM CDT [facility] MONOCYTES 7 % 10/12/2021 12:53 PM CDT [facility] EOSINOPHILS 4 % 10/12/2021 12:53 PM CDT [facility] NRBC 1 /100 WBC 10/12/2021 12:53 PM CDT [facility] ABS. NEUTROPHILS CALCULATED 8.25 1.60 - 8.30 x10'3/uL 10/12/2021 12:53 PM CDT [facility] ABS. METAMYELOCYTES 0.34(H) 0.00 x10'3/uL 10/12/2021 12:53 PM CDT [facility] ABS. LYMPHOCYTES 1.47 0.80 - 4.70 x10'3/uL 10/12/2021 12:53 PM CDT [facility] ABS. MONOCYTES 0.79 0.10 - 1.50 x10'3/uL 10/12/2021 12:53 PM CDT [facility] ABS. EOSINOPHILS 0.45(H) 0.00 - 0.40 x10'3/uL 10/12/2021 12:53 PM CDT [facility] ABS. NUCLEATED RBC'S 0.11(H) 0.00 x10'3/uL 10/12/2021 12:53 PM CDT [facility] PLT MORPH. NORMAL 10/12/2021 12:53 PM CDT [facility] RBC MORPHOLOGY 1+ 10/12/2021 12:53 PM CDT [facility] Comment:ANISOCYTOSIS 10/12/2021 11:2 2 AM CDT Graciela Rodriguez [facility] Final Result [facility] [address] [place] [address], documented in this encounter Visit Diagnoses Diagnosis Diabetic ulcer of left heel associated with type 2 diabetes mellitus, with necrosis of muscle (CMS/HCC HHS/HCC) documented in this encounter Care Teams Hairspring Studder Relationship Specialty Start Date End Date Dominic Recinos MD [address] [place] [phone] PCP - General INTERNAL MEDICINE 09/18/21 documented as of this encounter
--- OUTSIDE RECORDS SUMMARY | 2024-02-23 13:10 | XMS_ITS | Encounter Summary ---
Author Organization [facility] Address [address] [place] [address]. [place], [place] [address] [place] [address] Care Team Providers Care Truck Body Builder Name Role Phone Dominic Recinos MD Primary Care Provider [phone] Reason for Referral * Imaging (Routine) - Closed Specialty Diagnoses / Procedures Referred By Contac t Referred To Contact RADIOLOGY Diagnoses Diabetic ulcer of left heel associated with type 2 diabetes mellitus, with necrosis of muscle (CMS/HCC HHS/HCC) Procedures [facility]V ANSON LTD NGUYEN Graciela Rodriguez FNP [address] [place] [address] Phone: tel: fax: Referral ID Status Reason Start Date Expiration Date Visits Re quested Visits Authorized [id number] Closed 09/21/2021 10/22/2022 1 1 * Imaging (Routine) - Closed Specialty Diagnoses / Procedures Referred By Contac t Referred To Contact RADIOLOGY Diagnoses Diabetic ulcer of left heel associated with type 2 diabetes mellitus, with necrosis of muscle (CMS/HCC HHS/HCC) Procedures USV ART DUPLEX LOW NGUYEN Graciela Rodriguez FNP [address] [place] [address] Phone: tel: fax: Referral ID Status Reason Start Date Expiration Date Visits Re quested Visits Authorized [id number] Closed 09/21/2021 10/22/2022 1 1 Reason for Visit * Imaging (Routine) - Closed Specialty Diagnoses / Procedures Referred By Contac t Referred To Contact RADIOLOGY Diagnoses Diabetic ulcer of left heel associated with type 2 diabetes mellitus, with necrosis of muscle (CMS/HCC HHS/HCC) Procedures USV ART DUPLEX LOW NGUYEN Graciela Rodriguez, FEE CLERK [address] [place] [address] Phone: tel: fax: Referral ID Status Reason Start Date Expiration Date Visits Re quested Visits Authorized [id number] Closed 09/21/2021 10/22/2022 1 1 Encounter Details Date Type Department Care Team (Late st Contact Info) Description 10/08/2021 7:26 AM CDT - 10/08/2021 11:59 PM CDT Hospital Encounter [facility] [address] [place] [address] Graciela Rodriguez, FEE CLERK [address] [place] [address] Discharge Disposition: Home or Self [...] suspected to have Coronavirus/COVID-19? No / Unsure 10/08/2021 7:26 AM CDT documented as of this encounter [...] DAY 06/17/2021 documented as of this encounter Plan of Treatment Not on file documented as of this encounter Procedures Procedure Name Priority Date/Time Associated Diagnosis Comments [facility]V ANSON LTD NGUYEN Routine 10/08/2021 9:13 AM CDT Diabetic ulcer of left heel associated with type 2 diabetes mellitus, with necrosis of muscle (CMS/HCC HHS/HCC) USV ART DUPLEX LOW NGUYEN Routine 10/08/2021 9:13 AM CDT Diabetic ulcer of left heel associated with type 2 diabetes mellitus, with necrosis of muscle (CMS/HCC HHS/HCC) documented in this encounter Results * [facility] ANSON LTD NGUYEN (10/08/2021 9:13 AM CDT) Anatomical Region Laterality Modality Extremity Ultrasound us Graciela Rodriguez FEE CLERK US [facility]ASC Final Result * USV ART DUPLEX LOW NGUYEN (10/08/2021 9:13 AM CDT) Anatomical Region Laterality Modality Extremity Ultrasound us Graciela Rodriguez FEE CLERK US [facility]ASC Final Result documented in this encounter Visit Diagnoses Diagnosis Diabetic ulcer of left heel associated with type 2 diabetes mellitus, with necrosis of muscle (CMS/HCC HHS/HCC) documented in this encounter Care Teams Truck Body Builder Relationship Specialty Start Date End Date Dominic Recinos MD [address] [place] [address] PCP - General INTERNAL MEDICINE 09/18/21 documented as of this encounter
--- OUTSIDE RECORDS SUMMARY | 2024-02-23 13:10 | XMS_ITS | Encounter Summary ---
Author Organization [facility] Address [address] [place] [address]. [place], [place] [address] [place] [address] Care Team Providers Care Senior Wealth Advisor Name Role Phone Dominic Recinos MD Primary Care Provider [phone] Encounter Details Date Type Department Care Team (Latest Contact Info) Description 10/05/2021 Travel Social History Tobacco Use Types Packs/Day [...] suspected to have Coronavirus/COVID-19? No / Unsure 10/05/2021 9:44 AM CDT documented as of this encounter Plan of Treatment Not on file documented as of this encounter Visit Diagnoses Not on filedocumented in this encounter Care Teams Senior Wealth Advisor Relationship Specialty Start Date End Date Dominic Recinos MD [address] [place] [address] PCP - General INTERNAL MEDICINE 09/18/21 documented as of this encounter
--- OUTSIDE RECORDS SUMMARY | 2024-02-23 13:10 | XMS_ITS | Encounter Summary ---
Author Organization [facility] Address [address] [place] [address]. [place] [address] [place] [address] Care Team Providers Care Boat Hoist Operator Name Role Phone Dominic Recinos MD Primary Care Provider [phone] Encounter Details Date Type Department Care Team (Late st Contact Info) Description 09/28/2021 10:14 AM CDT - 09/28/2021 11:59 PM CDT Hospital Encounter [facility] [address] [place] [address] Graciela Rodriguez, [facility] [address] [place] [id number] Discharge Disposition: Home or Self Care (Routine [...] suspected to have Coronavirus/COVID-19? No / Unsure 09/28/2021 10:13 AM CDT documented as of this encounter [...] TO INJECT INSULIN TWICE A DAY 06/17/2021 linezolid (ZYVOX) 600 MG tabletIndications :Enterococcus faecalis infection Take 1 tablet (600 mg total) by mouth 2 (two) times daily for 10 days. 20 tablet 09/24/2021 10/04/2021 documented as of this encounter Progress Notes * Nieves Lowry RN - 09/28/2021 10:30 AM CDTEncounter addended by: Nieves Lowry RN on: 09/28/2021 11:33 AM Actions taken: MAR administration accepted documented [...] 5 mL, Topical, Once, 1 dose, On 09/28/21 at 1100 Given 09/28/2021 11:00 AM CDT 5 mLs documented in this encounter Care Teams Boat Hoist Operator Relationship Specialty Start Date End Date Dominic Recinos MD [address] [place] [address] PCP - General INTERNAL MEDICINE 09/18/21 documented as of this encounter
--- OUTSIDE RECORDS SUMMARY | 2024-02-23 13:10 | XMS_ITS | Encounter Summary ---
Author Organization [facility] Address [facility] [place] [address] [place] [address] Care Team Providers Care Inspector Welded Parts Name Role Phone Dominic Recinos MD Primary Care Provider [phone] Bonilla Anton MD Unavailable Celso Haro DO Unavailable Reason for Visit * Reason Onset Date Comments Appointment Request 10/15/2021 Encounter Details Date Type Department Care Team (Late st Contact Info) Description 10/15/2021 Telephone [facility] [address] [place] [address] Bonilla Anton MD [address] [place] [address] Appointment Request Social History Tobacco Use Types Packs/Day Years [...] as of this encounter Progress Notes * Karon Polo RN - 11/04/2021 12:33 PM CDT Notes from DEREK Rodriguez GLASS CUTTER HELPER with wound center work Q requested Apt for PVD needing records and referral from from PCP Jorje [phone] and cardiology records from [facility]ir [phone] Haro office called back and will send last office note and an echo. 11/04/[address] PCP office Dr. Recinos and she is to fax office note, labs and insurance auth SR Records received and referral C/P into epic * Karon Polo RN - 10/16/2021 1:10 PM CDT INTAKEReferral Source: Work Q referral Insurance: [facility] Medicare Advantage HMO will request referral Caller: Caller Phone Number: Symptoms/Consult for: PVD Request Records-fax to [phone]: yes and some records in care everywhere Current PCC Patient: no Recent hospitalizations: no Ever seen a vaudeville actor in the past: yes in [place] Requested appt timeframe: [place] Recent testing/labs: yes testing in Epic Appt Date/time: 11/10/21 at 2:15 Provider:[place] Covid+Test or Exposure in last 14 days: no MyChart offered: link already sent Letter/WS mailed/NA: yes Care Team: yes * Alice Jewell RN - 10/16/2021 11:53 AM CDT No answer. Left another VM for pt to call back. * Karon Polo RN - 10/15/2021 11:50 AM CDT Received a Work Q referral from Graciela Rodriguez requesting an apt in [place] with Dr. Anton for PVD. Attempted to call patient to discuss apt options but there was on Answer. I left message asking patient to call scheduling dept back. Next available apt noted in [place] with is 11/10/21 at 2:15. documented in this encounter Plan of Treatment Not on file documented as of this encounter Visit Diagnoses Not on filedocumented in this encounter Care Teams Inspector Welded Parts Relationship Specialty Start Date End Date Dominic Recinos MD [address] [place] [address] PCP - General INTERNAL MEDICINE 09/18/21 Bonilla Anton MD [address] [place] [address] Consulting Physician INTERNAL MEDICINE 10/16/21 Celso Haro DO [address] [facility] [address] [place], [place] [phone] INTERNAL MEDICINE 10/16/21 documented as of this encounter
--- OUTSIDE RECORDS SUMMARY | 2024-02-23 13:10 | XMS_ITS | Encounter Summary ---
Author Organization [facility] Address [address] [place] [address]. [place] [address] [place] [address] Care Team Providers Care Potato Chip Maker Name Role Phone Dominic Recinos MD Primary Care Provider [phone] Bonilla Anton MD Unavailable Celso Haro DO Unavailable Reason for Visit * Reason Onset Date Comments Appointment Request 10/16/2021 Encounter Details Date Type Department Care Team (Late st Contact Info) Description 10/16/2021 Telephone [facility] [address] [place] [address] Bonilla Anton MD [address] [place] [address] Appointment Request Social History Tobacco [...] Progress Notes * Karon Polo RN - 10/16/2021 1:16 PM CDT Error Duplicate documented in this encounter Plan of Treatment Not on file documented as of this encounter Visit Diagnoses Not on filedocumented in this encounter Care Teams Potato Chip Maker Relationship Specialty Start Date End Date Dominic Recinos MD [address] [place] [address] PCP - General INTERNAL MEDICINE 09/18/21 Bonilla Anton MD [address] [place] [address] Consulting Physician INTERNAL MEDICINE 10/16/21 Celso Haro DO [address] [facility] [address] [place] [address] INTERNAL MEDICINE 10/16/21 documented as of this encounter
--- OUTSIDE RECORDS SUMMARY | 2024-02-23 13:10 | XMS_ITS | Encounter Summary ---
Author Organization [facility] Address [address] [place] [address]. [place], [place] [address] [place] [address] Care Team Providers Care Kitchen Stewardess Name Role Phone Dominic Recinos MD Primary Care Provider [phone] Encounter Details Date Type Department Care Team (Latest Contact Info) Description 10/08/2021 Travel Social History Tobacco Use Types Packs/Day [...] on filedocumented in this encounter Care Teams Kitchen Stewardess Relationship Specialty Start Date End Date Dominic Recinos MD [address] [place] [address] PCP - General INTERNAL MEDICINE 09/18/21 documented as of this encounter
--- OUTSIDE RECORDS SUMMARY | 2024-02-23 13:10 | XMS_ITS | Encounter Summary ---
Author Organization [facility] Address [address] [place] [address]. [place] [address] [place] [address] Care Team Providers Care Computer Aided Drafter Name Role Phone Dominic Recinos MD Primary Care Provider [phone] Reason for Referral * Consultation (Routine) - Closed Specialty Diagnoses / Procedures Referred By Contkaren t Referred To Contact Cardiology Diagnoses Peripheral vascular disease (CMS/HCC) Procedures OFFICE/OUTPT VISIT,NEW,LEVL III OFFICE/OUTPT VISIT,NEW,LEVL IV OFFICE/OUTPT VISIT,NEW,LEVL V OFFICE/OUTPT VISIT,EST,LEVL III OFFICE/OUTPT VISIT,EST,LEVL IV OFFICE/OUTPT VISIT,EST,LEVL V Graciela Rodriguez FNP [address] [place] [id number] Phone: tel: fax: Bonilla Anton MD [address] [place] [address] Phone: tel: fax: Referral ID Status Reason Start Date Expiration Date V isits Requested Visits Authorized [id number] Closed Specialty Services 10/15/2021 10/15/2022 1 1 Encounter Details Date Type Department Care Team (Late st Contact Info) Description 10/15/2021 Orders Only [facility] [address] [address] Graciela Rodriguez FNP [address] [place] [address] Social History Tobacco Use Types Packs/Day Years [...] as of this encounter Plan of Treatment Scheduled Referrals Name Type Priority Associated Diagnoses Orde r Schedule Ambulatory referral to Cardiology, Adult Referral Routine Peripheral vascular disease Ordered: 10/15/2021 documented as of this encounter Visit Diagnoses Diagnosis Peripheral vascular disease (CMS/HCC)- Primary Peripheral vascular disease, unspecified documented in this encounter Care Teams Computer Aided Drafter Relationship Specialty Start Date End Date Dominic Recinos MD [address] [place] [address] PCP - General INTERNAL MEDICINE 09/18/21 documented as of this encounter
--- OUTSIDE RECORDS SUMMARY | 2024-02-23 13:10 | XMS_ITS | Encounter Summary ---
Author Organization [facility] Address [address] [place] [address]. [place], [place] [address] [place] [address] Care Team Providers Care Retanned Leather Roller Name Role Phone Dominic Recinos MD Primary Care Provider [phone] Encounter Details Date Type Department Care Team (Latest Contact Info) Description 10/12/2021 Travel Social History Tobacco Use Types Packs/Day [...] on filedocumented in this encounter Care Teams Retanned Leather Roller Relationship Specialty Start Date End Date Dominic Recinos MD [address] [place] [address] PCP - General INTERNAL MEDICINE 09/18/21 documented as of this encounter
--- OUTSIDE RECORDS SUMMARY | 2024-02-23 13:10 | XMS_ITS | Encounter Summary ---
Author Organization [facility] Address [address] [place] [address]. [place] [address] [place] [address] Care Team Providers Care Shipping Receiving Clerk Name Role Phone Dominic Recinos MD Primary Care Provider [phone] Reason for Referral * Imaging (Routine) - Closed Specialty Diagnoses / Procedures Referred By Contac t Referred To Contact RADIOLOGY Diagnoses Diabetic ulcer of left heel associated with type 2 diabetes mellitus, with necrosis of muscle ([facility]/HCC HHS/HCC) Procedures MRI FOOT LT WWO CON Graciela Rodriguez FNP [address] [place] [address] Phone: tel: fax: Referral ID Status Reason Start Date Expiration Date Visits Re quested Visits Authorized [id number] Closed 10/02/2021 10/02/2022 1 1 Encounter Details Date Type Department Care Team (Late st Contact Info) Description 10/02/2021 Orders Only [facility] [address] [place] [address] Graciela Rodriguez FNP [address] [place] [address] Social History Tobacco Use Types Packs/Day Years Used Date Smoking Tobacco: Never Assessed Sex and Gender Information Value Date Recorded Sex Assigned at Not on file Legal Sex Male 8:11 PM CDT Gender Identity Not on file Sexual Orientation Not on file COVID-19 Exposure Response Date Recorded In the last 10 days, have gilda espinoza been in contact with someone who was confirmed or suspected to have Coronavirus/COVID-19? No / Unsure 10/12/2021 11:02 AM CDT documented as of this encounter Progress Notes * Monet Pardo - 10/14/2021 9:18 AM CDTAddended by: MONET PARDO on: 10/14/2021 09:18 AM Modules accepted: Orders * Graciela Rodriguez NP - 10/02/2021 7:56 AM CDTSummary: mri Patient returned call regarding PPM brand. Per radiology, device compatible with MRI in [place]. documented in this encounter Plan of Treatment Not on file documented as of this encounter Results * MRI FOOT LT WWO CON (11/12/2021 [...] Martinez MD, 11/17/2021 9:07 AM Graciela Rodriguez BOTTOM STOP ATTACHER MRI Final Result documented in this encounter Visit Diagnoses Diagnosis Diabetic ulcer of left heel associated with type 2 diabetes mellitus, with necrosis of muscle (CMS/HCC HHS/HCC)- Primary Diabetic ulcer of left heel associated with type 2 diabetes mellitus, with necrosis of muscle (CMS/HCC HHS/HCC) Encounter for imaging to screen for metal prior to magnetic resonance imaging (MRI) Special screening for other specified conditions documented in this encounter Care Teams Shipping Receiving Clerk Relationship Specialty Start Date End Date Dominic Recinos MD [address] [place] [phone] PCP - General INTERNAL MEDICINE 09/18/21 documented as of this encounter
--- OUTSIDE RECORDS SUMMARY | 2024-02-23 13:10 | XMS_ITS | Encounter Summary ---
Author Organization [facility] Address [address] [place] [address]. [place] [address] [place] [address] Care Team Providers Care Talent Advisor Name Role Phone Dominic Recinos MD Primary Care Provider [phone] Encounter Details Date Type Department Care Team (Late st Contact Info) Description 10/05/2021 9:45 AM CDT - 10/05/2021 11:59 PM CDT Hospital Encounter [facility] [address] [place] [address] Graciela Rodriguez, [facility] [address] [place] [address] Discharge Disposition: Home or Self Care (Routine [...] Progress Notes * Nieves Lowry RN - 10/05/2021 10:00 AM CDTEncounter addended by: Nieves Lowry RN on: 10/05/2021 11:16 AM Actions taken: MAR administration accepted * Graciela Rodriguez NP - 10/05/2021 10:00 AM CDTEncounter addended by: Graciela Rodriguez NP on: 10/05/2021 11:17 AM Actions taken: Visit diagnoses modified, Order list changed, Diagnosis association updated * Nieves Lowry RN - 10/05/2021 10:00 AM CDTEncounter addended by: Nieves Lowry RN on: 10/05/2021 1:31 PM Actions taken: MAR administration accepted documented in this encounter Plan of Treatment Not on file documented as of this encounter Visit Diagnoses Diagnosis Diabetic ulcer of left heel associated with type 2 diabetes mellitus, with necrosis of muscle ([facility]/HCC HHS/HCC)- Primary Abrasion of right knee, initial encounter documented in this encounter Administered Medications Inactive Administered Medications - up to 3 most recent administrations Medication Order MAR Action Action Date Dose Rate Site lidocaine (XYLOCAINE) 2 % jelly 5 mL 5 mL, Topical, Once, 1 dose, On Tue10/05/21 at 1030Indications:Diabetic ulcer of left heel associated with type 2 diabetes mellitus, with necrosis of muscle ([facility]/HCC HHS/HCC) Given 10/05/2021 10:20 AM CDT 5 mLs [id number] (NEOSPORIN) ointment Topical, Once, 1 dose, On Tue10/05/21 at 1145Indications:Abrasion of right knee, initial encounter Given 10/05/2021 11:40 AM CDT documented in this encounter Care Teams Talent Advisor Relationship Specialty Start Date End Date Dominic Recinos MD [address] [place] [phone] PCP - General INTERNAL MEDICINE 09/18/21 documented as of this encounter
--- OUTSIDE RECORDS SUMMARY | 2024-02-23 13:10 | XMS_ITS | Encounter Summary ---
Author Organization [facility] Address [address] [place] [address]. [place], [place] [address] [place] [address] Care Team Providers Care Emergency Medcl Emt Name Role Phone Dominic Recinos MD Primary Care Provider [phone] Encounter Details Date Type Department Care Team (Latest Contact Info) Description 09/28/2021 Travel Social History Tobacco Use Types Packs/Day [...] on filedocumented in this encounter Care Teams Emergency Medcl Emt Relationship Specialty Start Date End Date Dominic Recinos MD [address] [place] [address] PCP - General INTERNAL MEDICINE 09/18/21 documented as of this encounter
--- OUTSIDE RECORDS SUMMARY | 2024-02-23 13:10 | XMS_ITS | Encounter Summary ---
Author Organization [facility] Address [address] [place] [address]. [place] [address] [place] [address] Care Team Providers Care Lath Tier Name Role Phone Dominic Recinos MD Primary Care Provider [phone] Reason for Referral * Imaging (Routine) - Closed Specialty Diagnoses / Procedures Referred By Contac t Referred To Contact RADIOLOGY Diagnoses Diabetic ulcer of left heel associated with type 2 diabetes mellitus, with necrosis of muscle ([facility]/HCC HHS/HCC) Procedures MRI ANKLE LT WWO CON Graciela Rodriguez FNP [address] [place] [address] Phone: tel: fax: Referral ID Status Reason Start Date Expiration Date Visits Re quested Visits Authorized [id number] Closed 10/12/2021 10/12/2022 1 1 Encounter Details Date Type Department Care Team (Late st Contact Info) Description 10/12/2021 9:46 AM CDT - 10/12/2021 11:01 AM CDT Hospital Encounter [facility] [address] [place] [address] Graciela Rodriguez FNP [address] [place] [address] Discharge Disposition: Home or Self Care (Routine [...] Progress Notes * Nieves Lowry RN - 10/12/2021 10:00 AM CDTEncounter addended by: Nieves Lowry RN on: 10/12/2021 10:59 AM Actions taken: MAR administration accepted * DEVANG Chavarria - 10/12/2021 10:00 AM CDTEncounter addended by: Graciela Rodriguez NP on: 10/12/2021 11:33 AM Actions taken: Diagnosis association updated documented in this encounter Plan of Treatment Not on file documented as of this encounter Results * MRI ANKLE LT [...] chronic. Ordered By: GRACIELA RODRIGUEZ Interpreted By: gJ Martinez MD, 11/17/2021 9:07 AM Graciela MARTINEZP MRI Final Result * (ABNORMAL) HEMOGLOBIN, GLYCOSYLATED (10/12/2021 11:22 AM CDT) HGB A1C 8.8(H) <5.7 % 10/12/2021 11:59 AM CDT [facility] Comment: 5.7 TO 6.4% INCREASED RISK OF DIABETES > OR = 6.5% CONSISTENT WITH DIABETES PER ADA GUIDELINES ESTIMATED AVG GLUCOSE 206(H) 70 - 140 MG/DL 10/12/2021 11:59 AM CDT [facility] 10/12/2021 11:2 2 AM CDT Graciela Rodriguez [facility] Final Result [facility] [place] [address], * (ABNORMAL) C-REACTIVE PROTEIN (10/12/2021 11:22 AM CDT) C-REACTIVE PROTEIN 3.31(H) <0.30 mg/dL 10/12/2021 12:03 PM [address] [facility] 10/12/2021 11:2 2 AM CDT Graciela Rodriguez [facility] Final Result [facility] [address] [place] [address], * (ABNORMAL) SED RATE, ERYTHROCYTE (ESR) (10/12/2021 11:22 AM CDT) ESR 35(H) 0 - 20 MM/HR 10/12/2021 4:10 PM [address] [facility] Comment:NOTE: ANEMIA, IF PRE SENT, MAY CAUSE AN ELEVATED SEDIMENTATION RATE. 10/12/2021 11:2 2 AM CDT Graciela Rodriguez [facility] Final Result Performing Organization Address [facility] Co de Phone Number [facility] [address] [place] [address], [place] [phone] * (ABNORMAL) COMPREHENSIVE METABOLIC PANEL (10/12/2021 11:22 AM CDT) SODIUM S/P/B 134(L) 136 - 145 MMOL/L 10/12/2021 12:[address] PM [address] [facility] POTASSIUM S/P/B 4.3 3.5 - 5.1 MMOL/L 10/12/2021 12:03 PM CDT [facility] CHLORIDE S/P/B 97(L) 98 - 107 MMOL/L 10/12/2021 12:03 PM CDT [facility] CO2 30.7 21.0 - 32.0 MMOL/L 10/12/2021 12:03 PM CDT [facility] GLUCOSE 164(H) 70 - 99 MG/DL 10/12/2021 12:03 PM CDT [facility] Comment: FASTING GLUCOSE 100 TO 125 MG/DL IS CONSISTENT WITH IMPAIRED FASTING GLUCOSE. FASTING GLUCOSE >125 MG/DL IS CONSISTENT WITH DIABETES. RANDOM GLUCOSE >200 MG/DL WITH HYPERGLYCEMIC SYMPTOMS IS CONSISTENT WITH DIABETES. PER ADA GUIDELINES BUN 15 6 - 24 MG/DL 10/12/2021 12:03 PM CD[address] [facility] CREATININE S/P/B 1.25 0.70 - 1.30 MG/DL 10/12/2021 12:03 PM [facility] CALCIUM S/P/B 9.0 8.4 - 10.5 MG/DL 10/12/2021 12:03 PM [facility] BILIRUBIN TOTAL S/P/B 0.3 0.2 - 1.0 MG/DL 10/12/2021 12:03 PM [facility] Comment: THIS ASSAY IS NOT RECOMMENDED FOR PATIENTS UNDERGOING TREATMENT WITH ELTROMBOPAG DUE TO THE POTENTIAL FOR FALSELY ELEVATED RESULTS. ALKALINE PHOSPHATASE S/P/B 88 45 - 115 U/L 10/12/2021 12:03 PM [facility] AST 20 15 - 37 U/L 10/12/2021 12:03 PM [facility] ALT 26 16 - 63 U/L 10/12/2021 12:03 PM [facility] TOTAL PROTEIN S/P/B 7.1 6.4 - 8.2 G/DL 10/12/2021 12:03 PM [facility] ALBUMIN S/P/B 3.3(L) 3.4 - 5.0 G/DL 10/12/2021 12:03 PM [facility] ANION GAP 6.3 5.0 - 15.0 MMOL/L 10/12/2021 12:03 PM [facility] OSMOLALITY (CALC) 282 MOSM/KG 022 12:03 PM [facility] Comment:REFERENCE RANGE NOT ESTABLISHED GFR ESTIMATE 62(L) >89 ML/MIN/1. 73 M2 10/12/2021 12:03 PM [facility] GFR NOTES GFR REFERENCE S: 10/12/2021 12:03 PM [facility] Comment: THE ESTIMATED GFR [...] m2 10/12/2021 11:2 2 AM CDT Graciela Rodriguez [facility] Final Result [facility] [address] [place] [address], * (ABNORMAL) CBC W/DIFF AUTOMATED (10/12/2021 11:22 AM CDT) WBC 11.3(H) 4.0 - 10.8 x10'3/uL 10/12/2021 11:44 AM CDT [facility] RBC 4.56 4.50 - 6.10 x10'6/uL 10/12/2021 11:44 AM CDT [facility] HGB 11.5(L) 13.0 - 18.0 G/DL 10/12/2021 11:44 AM CDT [facility] HCT 37.1 37.0 - 52.0 % 10/12/2021 11:44 AM CDT [facility] MCV 81.4 78.0 - 100.0 FL 10/12/2021 11:44 AM CDT [facility] MCH 25.2(L) 27.0 - 31.0 PG 10/12/2021 11:44 AM CDT [facility] MCHC 31.0(L) 33.0 - 36.0 G/DL 10/12/2021 11:44 AM CDT [facility] RDW 19.9(H) 11.5 - 14.5 % 10/12/2021 11:44 AM CDT [facility] PLT 168 150 - 350 x10'3/uL 10/12/2021 11:44 AM CDT [facility] MPV 9.6 7.4 - 10.4 FL 10/12/2021 11:44 AM CDT [facility] DIFFERENTIAL COMMENT NORMAL REFERENCE RANGE NOT ESTABLISHED FOR THE PROPORTIONAL LEUKOCYTE DIFFERENTIAL. 10/12/2021 11:44 AM CDT [facility] SEG NEUTROPHILS 73 % 12:53 PM [address] [facility] METAMYELOCYTES 3 % 10/12/2021 12:53 PM CDT [facility] LYMPHOCYTES 13 % 10/12/2021 12:53 PM CDT [facility] MONOCYTES 7 % 10/12/2021 12:53 PM CDT [facility] EOSINOPHILS 4 % 10/12/2021 12:53 PM CDT [facility] NRBC 1 /100 WBC 10/12/2021 12:53 PM CDT [facility] ABS. NEUTROPHILS CALCULATED 8.25 1.60 - 8.30 x10'3/uL 10/12/2021 12:53 PM CDT [facility] ABS. METAMYELOCYTES 0.34(H) 0.00 x10'3/uL 10/12/2021 12:53 PM CDT [facility] ABS. LYMPHOCYTES 1.47 0.80 - 4.70 x10'3/uL 10/12/2021 12:53 PM CDT [facility] ABS. MONOCYTES 0.79 0.10 - 1.50 x10'3/uL 10/12/2021 12:53 PM CDT [facility] ABS. EOSINOPHILS 0.45(H) 0.00 - 0.40 x10'3/uL 10/12/2021 12:53 PM CDT [facility] ABS. NUCLEATED RBC'S 0.11(H) 0.00 x10'3/uL 10/12/2021 12:53 PM CDT [facility] PLT MORPH. NORMAL 10/12/2021 12:53 PM CDT [facility] RBC MORPHOLOGY 1+ 10/12/2021 12:53 PM CD[address] [facility] Comment:ANISOCYTOSIS 10/12/2021 11:2 2 AM CDT Graciela Rodriguez [facility] [employer] [facility] Final Result [facility] [address] [place] [address], documented in this encounter Visit Diagnoses Diagnosis [...] 5 mL, Topical, Once, 1 dose, On Tue10/12/21 at 1045Indications:Diabetic ulcer of left heel associated with type 2 diabetes mellitus, with necrosis of muscle (CMS/HCC HHS/HCC) Given 10/12/2021 10:30 AM CDT 5 mLs documented in this encounter Care Teams Lath Tier Relationship Specialty Start Date End Date Dominic Recinos MD [address] [place] [address] PCP - General INTERNAL MEDICINE 09/18/21 documented as of this encounter
--- OUTSIDE RECORDS SUMMARY | 2024-02-23 13:11 | XMS_ITS | Encounter Summary ---
Author Organization [facility] Address [facility] [facility] [place] [address] [place] [address] Care Team Providers Care Security Engineer Name Role Phone Dominic Recinos MD Primary Care Provider [phone] Bonilla Anton MD Unavailable Celso Haro DO Unavailable Reason for Visit * Reason Comments Lab (SCAN) Encounter Details Date Type Department Care Team (Late st Contact Info) Description 09/15/2021 Scan [facility] [address] [place] [address] Scanned, Documents Lab (SCAN) Social History Tobacco [...] Diagnosis Comments OUTSIDE LAB (SCAN ORDER) Routine 09/15/2021 documented in this encounter Results * OUTSIDE LAB (SCAN) (09/15/2021) 09/15/2021 us Documents Scanned SCANNING Final Result [facility] documented in this encounter Visit Diagnoses Not on filedocumented in this encounter Care Teams Security Engineer Relationship Specialty Start Date End Date Dominic Recinos MD [address] [place] [address] PCP - General INTERNAL MEDICINE 09/18/21 Bonilla Anton MD [address] [place] [address] Consulting Physician INTERNAL MEDICINE 10/16/21 Celso Haro DO [address] [facility] [address] [place], [place] [id number] INTERNAL MEDICINE 10/16/21 documented as of this encounter
--- OUTSIDE RECORDS SUMMARY | 2024-02-23 13:11 | XMS_ITS | Encounter Summary ---
Author Organization [facility] Address [address] [place] [address]. [place], [place] [address] [place] [address] Care Team Providers Care Car Parker Name Role Phone Dominic Recinos MD Primary Care Provider [phone] Encounter Details Date Type Department Care Team (Late st Contact Info) Description 09/24/2021 Orders Only [facility] [address] [place] [address] Graciela Rodriguez FNP [address] [place] [address] Social History Tobacco Use Types Packs/Day Years [...] suspected to have Coronavirus/COVID-19? No / Unsure 09/21/2021 10:56 AM CDT documented as of this encounter Progress Notes * Graciela Rodriguez NP - 09/24/2021 10:00 AM CDTSummary: wound culture Treated with linezolid based on Wound cutlure and sensitivity results. documented in this encounter Plan of Treatment Not on file documented as of this encounter Visit Diagnoses Diagnosis Enterococcus faecalis infection- Primary Streptococcus infection in conditions classified elsewhere and of unspecified site, group D documented in this encounter Care Teams Car Parker Relationship Specialty Start Date End Date Dominic Recinos MD [address] [place] [address] PCP - General INTERNAL MEDICINE 09/18/21 documented as of this encounter
--- OUTSIDE RECORDS SUMMARY | 2024-02-23 13:11 | XMS_ITS | Encounter Summary ---
Author Organization [facility] Address [address] [place] [address]. [place], [place] [address] [place] [address] Care Team Providers Care Linux Consultant Name Role Phone Dominic Recinos MD Primary Care Provider [phone] Reason for Referral * Imaging (Routine) - Closed Specialty Diagnoses / Procedures Referred By Contac t Referred To Contact RADIOLOGY Diagnoses Diabetic ulcer of left heel associated with type 2 diabetes mellitus, with necrosis of muscle (CMS/HCC HHS/HCC) Procedures USV ART DUPLEX LOW NGUYEN Graciela Rodriguez, TELEVISION ANALYZER [address] [place] [address] Phone: tel: fax: Referral ID Status Reason Start Date Expiration Date Visits Re quested Visits Authorized [id number] Closed 09/21/2021 10/22/2022 1 1 * Imaging (Routine) - Closed Specialty Diagnoses / Procedures Referred By Contac t Referred To Contact RADIOLOGY Diagnoses Diabetic ulcer of left heel associated with type 2 diabetes mellitus, with necrosis of muscle (CMS/HCC HHS/HCC) Procedures USV ANSON LTD NGUYEN Graciela Rodriguez, TELEVISION ANALYZER [address] [place] [address] Phone: tel: fax: Referral ID Status Reason Start Date Expiration Date Visits Re quested Visits Authorized [id number] Closed 09/21/2021 10/22/2022 1 1 Encounter Details Date Type Department Care Team (Late st Contact Info) Description 09/21/2021 10:56 AM CDT - 09/21/2021 11:59 PM CDT Hospital Encounter [facility] [address] [facility] [facility] [place] [address] Graciela Rodriguez, TELEVISION ANALYZER [address] [facility] [place] [address] Discharge Disposition: Home or Self [...] Progress Notes * Graciela Rodriguez NP - 09/21/2021 11:00 AM CDTEncounter addended by: Graciela Rodriguez NP on: 09/21/2021 3:08 PM Actions taken: Order list changed, Diagnosis association updated * Graciela Rodriguez NP - 09/21/2021 11:00 AM CDTEncounter addended by: Graciela Rodriguez NP on: 09/24/2021 10:00 AM Actions taken: Allergies modified, Allergies reviewed * Graciela Rodriguez NP - 09/21/2021 11:00 AM CDT Prescription sent to pharmacy. Son informed. documented in this encounter Plan of Treatment Not on file documented as of this encounter Procedures Procedure Name Priority Date/Time Associated Diagnosis Comments CULTURE, TISSUE W/GRAM STAIN Routine 09/21/2021 11:46 AM CDT Diabetic ulcer of left heel associated with type 2 diabetes mellitus, with necrosis of muscle (CMS/HCC HHS/HCC) documented in this encounter Results * USV ANSON LTD NGUYEN (10/08/2021 9:13 AM CDT) Anatomical Region Laterality Modality Extremity Ultrasound us Graciela Rodriguez TELEVISION ANALYZER US VASC Final Result * USV ART DUPLEX LOW NGUYEN (10/08/2021 9:13 AM CDT) Anatomical Region Laterality Modality Extremity Ultrasound us Graciela Rodriguez TELEVISION ANALYZER US VASC Final Result * CULTURE, TISSUE W/GRAM STAIN (09/21/2021 11:46 AM CDT) SPEC DESCRIPTION HEEL, LEFT 09/21/2021 12:19 PM CDT [facility] SPECIAL REQUESTS NO SPECIAL REQUEST 09/21/2021 12:19 PM CDT [facility] GRAM STAIN RESULT RARE WBC'S SEEN 09/21/2021 2:17 PM CDT [facility] GRAM STAIN RESULT FEW GRAM POSITIVE COCCI 09/21/2021 2:17 PM CDT [facility] CULTURE RESULT MODERATE ENTEROCOCCUS FAECALIS 09/24/2021 8:01 AM CDT [facility] CULTURE RESULT FEW SERRATIA MARCESCENS 09/24/2021 8:01 AM CDT [facility] LEFT HEEL STRUCTURE / Unknown 09/21/2021 11:46 AM CDT 09/21/2021 12:23 PM CDT Narrative Organism Antibiotic Method Susceptibility Enterococcus faecalis AMPICILLIN SADIA (VITEK) Sensitive Enterococcus faecalis ERYTHROMYCIN SADIA (VITEK) Resistant Enterococcus faecalis GENT. SYNERGY SCREEN SADIA (VITEK) Sensitive Enterococcus faecalis LINEZOLID SADIA (VITEK) Sensitive Enterococcus faecalis PENICILLIN G SADIA (VITEK) Sensitive Enterococcus faecalis STR. SYNERGY SCR SADIA (VITEK) Sensitive Enterococcus faecalis TIGECYCLINE SADIA (VITEK) Sensitive Enterococcus faecalis VANCOMYCIN SADIA (VITEK) Sensitive Serratia marcescens CEFAZOLIN SADIA (KB) Resistant Serratia marcescens TOBRAMYCIN SADIA (KB) Sensitive Serratia marcescens AMOXICILLIN/CLAVULANIC A SADIA (GAY K) Resistant Serratia marcescens AZTREONAM SADIA (VITEK) Sensitive Serratia marcescens CEFEPIME SADIA (VITEK) Sensitive Serratia marcescens CEFTRIAXONE SADIA (VITEK) Sensitive Serratia marcescens CIPROFLOXACIN SADIA (VITEK) Sensitive Serratia marcescens ERTAPENEM SADIA (VITEK) Sensitive Serratia marcescens GENTAMICIN SADIA (VITEK) Sensitive Serratia marcescens LEVOFLOXACIN SADIA (VITEK) Sensitive Serratia marcescens MEROPENEM SADIA (VITEK) Sensitive Serratia marcescens TRIMETH-SULFAMETH. SADIA (VITEK) Sensitive Serratia marcescens TETRACYCLINE SADIA (VITEK) Sensitive Graciela MARTINEZP MICROBIOLOGY - GENERAL ORDERAB LES Final Result [facility] [address] [place] [address], [place] [phone] [id number] [facility] [address] [place] [address], [place] [phone] documented in this encounter Visit Diagnoses Diagnosis [...] 5 mL, Topical, Once, 1 dose, On Tue09/21/21 at 1215Indications:Diabetic ulcer of left heel associated with type 2 diabetes mellitus, with necrosis of muscle (CMS/HCC HHS/HCC) Given 09/21/2021 11:15 AM CDT 5 mLs documented in this encounter Care Teams Linux Consultant Relationship Specialty Start Date End Date Dominic Recinos MD [address] [place] [phone] PCP - General INTERNAL MEDICINE 09/18/21 documented as of this encounter
--- OUTSIDE RECORDS SUMMARY | 2024-02-23 13:11 | XMS_ITS | Encounter Summary ---
Author Organization [facility] Address [address] [place] [address]. [place], [place] [address] [place] [address] Care Team Providers Care Patient Access Manager Name Role Phone Dominic Recinos MD Primary Care Provider [phone] Encounter Details Date Type Department Care Team (Latest Contact Info) Description 09/18/2021 Travel Social History Tobacco Use Types Packs/Day [...] suspected to have Coronavirus/COVID-19? No / Unsure 09/18/2021 11:55 AM CDT documented as of this encounter Plan of Treatment Not on file documented as of this encounter Visit Diagnoses Not on filedocumented in this encounter Care Teams Patient Access Manager Relationship Specialty Start Date End Date Dominic Recinos MD [address] [place] [address] PCP - General INTERNAL MEDICINE 09/18/21 documented as of this encounter
--- OUTSIDE RECORDS SUMMARY | 2024-02-23 13:11 | XMS_ITS | Encounter Summary ---
Author Organization [facility] Address [address] [place] [address]. [place] [address] [place] [address] Care Team Providers Care Trains Service Conductor Name Role Phone Unavailable Primary Care Provider Unavailabl e Encounter Details Date Type Department Care Team (Late st Contact Info) Description 04/29/2015 Abstract [facility] Medical [facility] Multispecialty [facility] [address] [place] [address] Ruma Hayward MD [address] [facility] [address] [place] [address] Social History Tobacco Use Types Packs/Day Years [...]
--- OUTSIDE RECORDS SUMMARY | 2024-02-23 13:11 | XMS_ITS | Encounter Summary ---
Author Organization [facility] Address [facility] [place] [address] [place] [address] Care Team Providers Care Claims Associate Name Role Phone Dominic Recinos MD Primary Care Provider [phone] Bonilla Anton MD Unavailable Celso Haro DO Unavailable Reason for Visit * Reason Comments Echo (SCAN) Encounter Details Date Type Department Care Team ([facility] st Contact Info) Description 12/23/2020 [facility] [address] [place] [address] Scanned, Documents Echo (SCAN) Social History Tobacco Use Types Packs/Day [...] Procedure Name Priority Date/Time Associated Diagnosis Comments ECHO GENERIC (SCAN ORDER) Routine 12/23/2020 documented in this encounter Results * ECHO (12/23/2020) Anatomical Region Laterality Modality Other us Documents Scanned SCANNING Final Result documented in this encounter Visit Diagnoses Not on filedocumented in this encounter Care Teams Claims Associate Relationship Specialty Start Date End Date Dominic Recinos MD [address] [place] [address] PCP - General INTERNAL MEDICINE 09/18/21 Bonilla Anton MD [address] [place] [address] Consulting Physician INTERNAL MEDICINE 10/16/21 Celso Haro DO [address] [facility] [address] [place] [address] INTERNAL MEDICINE 10/16/21 documented as of this encounter
--- OUTSIDE RECORDS SUMMARY | 2024-02-23 13:11 | XMS_ITS | Encounter Summary ---
Author Organization [facility] Address [address] [place] [address]. [place] [address] [place] [address] Care Team Providers Care Injection Moulding Machine Operator Name Role Phone Dominic Recinos MD Primary Care Provider [phone] Encounter Details Date Type Department Care Team (Late st Contact Info) Description 09/18/2021 11:57 AM CDT - 09/18/2021 11:59 PM CDT Hospital Encounter [facility] [address] [place] [address] Graciela Rodriguez, [facility] [address] [place] [address] Discharge Disposition: Home or Self Care (Routine [...] 5 mL, Topical, Once, 1 dose, On Tue09/18/21 at 1230 Given 09/18/2021 12:18 PM CDT 5 mLs silver-potassium nitrate applicator 3 applicator 3 applicator, Topical, Once, 1 dose, On Tue09/18/21 at 1415Indications:Diabetic ulcer of left heel associated with type 2 diabetes mellitus, with necrosis of muscle (CMS/HCC HHS/HCC) Given 09/18/2021 1:40 PM CDT 3 applicators documented in this encounter Care Teams Injection Moulding Machine Operator Relationship Specialty Start Date End Date Dominic Recinos MD [address] [place] [address] PCP - General INTERNAL MEDICINE 09/18/21 documented as of this encounter
--- OUTSIDE RECORDS SUMMARY | 2024-02-23 13:11 | XMS_ITS | Encounter Summary ---
Author Organization [facility] Address [address] [place] [address]. [place], [place] [address] [place] [address] Care Team Providers Care Personnel Interviewer Name Role Phone Dominic Recinos MD Primary Care Provider [phone] Encounter Details Date Type Department Care Team (Latest Contact Info) Description 09/21/2021 Travel Social History Tobacco Use Types Packs/Day [...] on filedocumented in this encounter Care Teams Personnel Interviewer Relationship Specialty Start Date End Date Dominic Recinos MD [address] [place] [address] PCP - General INTERNAL MEDICINE 09/18/21 documented as of this encounter
--- OUTSIDE RECORDS SUMMARY | 2024-02-23 13:21 | XMS_ITS | CONTINUITY OF CARE DOCUMENT ---
Author Name andrez, andrez Address Unknown Organization [facility] Address [address] [place] [address] Phone [phone] Care Team Providers Care Case Supervisor Name Role Phone Jere Freedman MD Unavailable [phone] MATEO KEITA MD Unavailable MATEO KEITA MD Unavailable [phone] PROBLEMS Condition Status Date Provider Notes PVD s/p bypass (2005) active Jere Ladd Diabetes mellitus active Jere Freedman MD Hypercholesterolemia active Jere Freedman MD HTN essential active Jere Freedman MD CAD s/p CABGx4 (2003) by Dr. Thompson active 8 Jere Freedman MD Shortness of breath active Jere Freedman MD ENCOUNTERS Date Type Provider Location Encounter Diag nosis - In-person encounter Office Visit Jere Freedman MD [place] [facility] Shortness of breathCAD s/p CABGx4 (2003) by Dr. Pradhan essentialHypercholesterolemiaDiabetes mellitusPVD s/p bypass (2005) VITAL SIGNS Date Observation Value Provider blood pressure, diastolic 84 mm[Hg] Us simran Freedman MD blood pressure, systolic 154 mm[Hg] Romelia Freedman MD pulse rate 64 /min Jere Freedman MD oxygen saturation, oximetry 98 % Jere Freedman MD respiratory rate E&M 20 /min Jere haas MD Body Mass Index (Ratio) 35.58 kg/m2 Telly Freedman MD weight E&M 234 [lb_av] Jere Freedman MD height E&M 68 [in_i] Jere Freedman MD ALLERGIES Allergy Name Onset Date Reaction Criticality Status MORPHINE Hallucinations Hallucinations High C riticality active HISTORY OF MEDICATION USE Medication Status Instructions Dates Provider Indications Com ments LISINOPRIL 20 MG ORAL TABLET active ONE TAB. DAILY Jeer Freedman MD FENOFIBRATE 160 MG ORAL TABLET active q.d. Jere Freedman MD METOPROLOL TARTRATE 50 MG ORAL TABLET active 50 mg po bid Jere Freedman MD VIAGRA 100 MG ORAL TABLET active prn Jere Freedman MD DIAZEPAM 10 MG ORAL TABLET active t.i.d. Jere Freedman MD OXYBUTYNIN CHLORIDE 5 MG ORAL TABLET active b.i.d. Jere Freedman MD GLYBURIDE-METFORM IN 5-500 MG ORAL TABLET active three times daily Jere Freedman MD ACETAMINOPHEN-COD EINE #4 TABLET active q6 hrs Jere Freedman MD GABAPENTIN 300 MG ORAL CAPSULE active THREE TIMES DAILY Jere Freedman MD SOCIAL HISTORY Date Observation Value Provider caffeine use, averag e drinks per day 4 /d Jere Freedman MD social history E&M Patient has n ever smoked. Smoking History: P atient has never smoked. H /o chewing tobacco product use O ccupation: Retired/disability. W idowed 3 children Jere Freedman MD social history reviewed E&M revi ewed - no changes required Jere Freedman MD smoking status Never smoker Jere Freedman MD FAMILY HISTORY Family Member Condition Father Family History of Co ronary Artery Disease: INSURANCE PROVIDERS Payer name Policy type / Coverage type [place] red libertarian ID HUMANA GOLD PLUS HMO HMO [id number] TREATMENT PLAN Date Name Performer [facility]: B P today: 154/84 Jere Freedman MD HISTORY OF PROCEDURES Procedure Date Procedure Name Provider Procedure Notes S tatus SNOMED-CT: 821231052 [id number] Current Medications Documented Jere Freedman MD completed SNOMED-CT: [id number] Physical Exam, Performed: Pulse Exam of Foot Jere Freedman MD completed
--- OUTSIDE RECORDS SUMMARY | 2024-02-23 13:29 | XMS_ITS | Clinical Summary ---
Author Organization [facility] Address [facility] [facility]. [place], [place] [address] [place] [address] Care Team Providers Care Quarrying Manager Name Role Phone Dominic Recinos MD Primary Care Provider [phone] Bonilla Anton MD Unavailable Celso Haro DO [...] Noted Date Diagnosed Date Diabetic foot ulcer ([facility]) 02/08/2022 PAD (peripheral artery disease) 11/10/2021 Ulcer of left lower extremit y with fat layer exposed ([facility]) 11/10/2021 Hyperlipidemia, mixed 11/10/2021 Family History Medical [...] Comments Blood Pressure 101/51 01/22/2022 2:22 PM WAREHOUSE EXAMINER Pulse 62 01/22/2022 2:22 PM WAREHOUSE EXAMINER Temperature 35.4 ??C (95.7 ??F) 01/22/2022 2:22 PM CS T Respiratory Rate 16 01/22/2022 2:22 PM WAREHOUSE EXAMINER Oxygen Saturation 99% 01/22/2022 2:22 PM WAREHOUSE EXAMINER Inhaled Oxygen Concentration - - Weight 108.9 kg (240 lb) 01/19/2022 1:01 PM WAREHOUSE EXAMINER Height 172.7 cm (5' 8 ) 01/19/2022 1:01 PM WAREHOUSE EXAMINER Body Mass Index 36.49 01/19/2022 1:01 PM WAREHOUSE EXAMINER Plan of Treatment Health Maintenance Due Date [...] this topic Medical Devices Implanted Type Area Sterile Proc Tech Device Identifier Shelf Expiration Date Model / Serial / Lot Rv Lead-05/06/2015 Implanted:Qty: 1 on 05/06/2015 by Tammy Grijalva MD Lead Implant 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[employer] CARDIAC RHYTHM AND HEART FAILURE - DIV M [id number] / [id number] / Pacemaker-2015 Implanted:Qty: 1 on 05/06/2015 by Tammy Grijalva MD Pacemaker Chest [employer] CARDIAC RHYTHM AND HEART FAILURE - DIV [id number] / [id number] / Description:MRI Conditional under following conditions: [...] 2 diabetes mellitus, with necrosis of muscle ([facility]/HCC [facility]/HCC) from Last 3 Months or Most Recently Relevant to Health Maintenance Results * (ABNORMAL) HEMOGLOBIN, GLYCOSYLATED (10/12/2021 11:22 AM CDT) HGB A1C 8.8(H) <5.7 % 10/12/2021 11:59 AM CDT [facility] Comment: 5.7 TO 6.4% INCREASED RISK OF DIABETES > OR = 6.5% CONSISTENT WITH DIABETES PER ADA GUIDELINES ESTIMATED AVG GLUCOSE 206(H) 70 - 140 MG/DL 10/12/2021 11:59 AM CDT [facility] 10/12/2021 11:2 2 AM CDT [facility] Final Result [facility] [address] [place] [address], from Last 3 Months or Most Recently Relevant to Health Maintenance Insurance [facility] Care Teams Quarrying Manager Relationship Specialty Start Date End Date Dominic Recinos MD [address] [place] [address] PCP - General INTERNAL MEDICINE 09/18/21 Bonilla Anton MD [address] [place] [address] Consulting Physician INTERNAL MEDICINE 10/16/21 Celso Haro DO [address] [facility] [address] [place] [address] INTERNAL MEDICINE 10/16/21
--- OUTSIDE RECORDS SUMMARY | 2024-02-23 13:29 | XMS_ITS | Encounter Summary ---
Author Organization [facility] Address [address] [facility] [place] [address] Care Team Providers Care Warehouse Traffic Supervisor Name Role Phone Unavailable Primary Care Provider Unavailabl e Encounter Details Date Type Department Care Team (Late st Contact Info) Description 02/07/2024 Lab Requisition [facility] [address] [place] [address] John Christensen MD [address] [place] [address] Encounter for therapeutic drug level [...] VANCOMYCIN LEVEL TROUGH STAT 02/07/2024 10:40 AM FIELD SERVICE REP Encounter for therapeutic drug level monitoring documented in this encounter Results * VANCOMYCIN LEVEL TROUGH (02/07/2024 10:40 AM FIELD SERVICE REP) Vancomycin Trough 19.9 10.0 - 20.0 ug/mL 02/07/2024 2:53 PM FIELD SERVICE REP [facility] Blood BLOOD SPECIMEN / Unknown Venipuncture / Unknown 02/07/2024 10:40 AM FIELD SERVICE REP 02/07/2024 2:24 PM FIELD SERVICE REP John Christensen MD LAB - CHEMISTRY CY ARSHAD [facility] [address] [place], [place] [address] documented in this encounter Visit Diagnoses Diagnosis Encounter for therapeutic drug level monitoring Encounter for therapeutic drug monitoring documented in this encounter
--- OUTSIDE RECORDS SUMMARY | 2024-02-23 13:29 | XMS_ITS | Patient Health Summary ---
Author Organization [facility] Address [address] [facility] [place] [address] Care Team Providers Care Dry Lumber Grader Name Role Phone Unavailable Primary Care Provider Unavailabl e Note from [facility],non-owned Affiliates and Associated Physician Practices is amultiple site organization consisting of ambulatory clinics and hospital sitesin [place], [place], [place] and [place]. This disclosure is being madepursuant to the Care Everywhere program and may not contain all information available regarding this patient. Last updated 17.[facility] [employer] Allergies * Morphine(Other) -Low Criticality Active Problems [...] * VANCOMYCIN LEVEL TROUGH (02/07/2024 10:40 AM HANDLE MAKER) Vancomycin Trough 19.9 10.0 - 20.0 ug/mL 02/07/2024 2:53 PM HANDLE MAKER [facility] Blood BLOOD SPECIMEN / Unknown Venipuncture / Unknown 02/07/2024 10:40 AM HANDLE MAKER 02/07/2024 2:24 PM HANDLE MAKER John Christensen MD LAB - CHEMISTRY CY ARSHAD [facility] [address] [place] [address] * LAB MICROBIOLOGY - HPF HISTORICAL (07/18/2008 5:01 AM CDT) 07/18/2008 5:01 AM CDT Narrative [facility] - 07/18/2008 5:01 AM CDT Yoav Mixon DO LAB - MICROBIOLOGY O RDERABLES [facility]
--- OUTSIDE RECORDS SUMMARY | 2024-02-23 13:29 | XMS_ITS | CONTINUITY OF CARE DOCUMENT ---
Author Name andrez, andrez Address Unknown Organization [facility] Address [address] [facility] [address] [place] [address] Phone [phone] Care Team Providers Care Conveyancer Name Role Phone Jere Freedman MD Unavailable [phone] MATEO KEITA MD Unavailable MATEO KEITA MD Unavailable PROBLEMS Condition Status Date Provider Notes PVD [...] In-person encounter Office Visit Jere Freedman MD [facility] Shortness of breathCAD s/p CABGx4 (2003) [...] MG ORAL TABLET active ONE TAB. DAILY Jere Freedman MD FENOFIBRATE 160 MG ORAL TABLET [...] Payer name Policy type / Coverage type [place] red constitution party ID HUMANA GOLD PLUS HMO HMO [id number] TREATMENT PLAN Date Name Performer Cardiology--[facility]: B P today: 154/84 Jere Freedman MD HISTORY OF PROCEDURES Procedure Date Procedure Name Provider Procedure Notes S tatus SNOMED-CT: [id number] Current Medications Documented Jere Freedman MD completed SNOMED-CT: [id number] Physical Exam, Performed: Pulse Exam of Foot Jere Freedman MD completed
--- OUTSIDE RECORDS SUMMARY | 2024-02-23 13:29 | XMS_ITS | Referral Summary ---
Author Organization [facility] Address [address] [facility] [place] [address] Care Team Providers Care Senior Safety Management Consultant Name Role Phone Unavailable Primary Care Provider Unavailabl e Source Comments [facility],non-owned Affiliates and Associated Physician Practices is amultiple site organization consisting of ambulatory clinics and hospital sitesin [place], [place], [place] and [place]. This disclosure is being madepursuant to the Care Everywhere program and may not contain all information available regarding this patient. Last updated 17.[facility] Encounters Date Type Department Care Team Description 02/07/2024 Lab Requisition [facility] [address] [place] [address] John Christensen MD Encounter for therapeutic drug [...] VANCOMYCIN LEVEL TROUGH STAT 02/07/2024 10:40 AM LOAD MANAGER Encounter for therapeutic drug level monitoring from Last 3 Months Results * VANCOMYCIN LEVEL TROUGH (02/07/2024 10:40 AM LOAD MANAGER) Vancomycin Trough 19.9 10.0 - 20.0 ug/mL 02/07/2024 2:53 PM LOAD MANAGER [facility] Blood BLOOD SPECIMEN / Unknown Venipuncture / Unknown 02/07/2024 10:40 AM LOAD MANAGER 02/07/2024 2:24 PM LOAD MANAGER John Christensen MD LAB - CHEMISTRY CY ARSHAD [facility] [address] [place] [address] from Last 3 Months
--- OUTSIDE RECORDS SUMMARY | 2024-02-23 13:29 | XMS_ITS | Clinical Summary ---
Author Organization [facility] Address [address] [place] [address] Care Team Providers Care Night Monitor Name Role Phone Unavailable Primary Care Provider Unavailabl e Source Comments [facility],non-owned Affiliates and Associated Physician Practices is amultiple site organization consisting of ambulatory clinics and hospital sitesin [place], [place], [place] and [place]. This disclosure is being madepursuant to the Care Everywhere program and may not contain all information available regarding this patient. Last updated 17.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 Encounters Date Type Department Care Team Description 02/07/2024 Lab Requisition [facility] [address] [place] [address] John Christensen MD Encounter for therapeutic drug [...] VANCOMYCIN LEVEL TROUGH STAT 02/07/2024 10:40 AM CIRCUIT JUDGE Encounter for therapeutic drug level monitoring from Last 3 Months Results * VANCOMYCIN LEVEL TROUGH (02/07/2024 10:40 AM CIRCUIT JUDGE) Vancomycin Trough 19.9 10.0 - 20.0 ug/mL 02/07/2024 2:53 PM CIRCUIT JUDGE [facility] Blood BLOOD SPECIMEN / Unknown Venipuncture / Unknown 02/07/2024 10:40 AM CIRCUIT JUDGE 02/07/2024 2:24 PM CIRCUIT JUDGE John Christensen MD LAB - CHEMISTRY CY ARSHAD [facility] [address] [place] [address] from Last 3 Months
--- OUTSIDE RECORDS SUMMARY | 2024-02-23 13:29 | XMS_ITS | Encounter Summary ---
Author Organization [facility] Address [facility] [facility]. [place], [place] [address] [place] [address] Care Team Providers Care Email Designer Name Role Phone Dominic Recinos MD Primary Care Provider [phone] Bonilla Anton MD Unavailable Celso Haro DO Unavailable Evan Olivarez DPM Unavailable [phone] Encounter Details Date Type Department Care Team [...] on filedocumented in this encounter Care Teams Email Designer Relationship Specialty Start Date End Date Dominic Recinos MD [address] [place] [address] PCP - General INTERNAL MEDICINE 09/18/21 Bonilla Anton MD [address] [place] [address] Consulting Physician INTERNAL MEDICINE 10/16/21 Celso Haro DO [address] [place] [address] INTERNAL MEDICINE 10/16/21 Evan Olivarez DPM [address] [place] [address] Consulting Physician PODIATRY/SURGERY 12/07/21 12/07/22 documented as of this encounter
--- OUTSIDE RECORDS SUMMARY | 2024-02-23 13:29 | XMS_ITS | Encounter Summary ---
Author Organization [facility] Address [address] [place] [address] Care Team Providers Care General Passenger Agent Name Role Phone Unavailable Primary Care Provider Unavailabl e Encounter Details Date Type Department Care Team (Late st Contact Info) Description 01/12/2012 Hospital Outpatient Visit [facility] [address] [facility] [place] [address] Yoav Mixon, DO [address] [facility] [address] [place] [address] Social History Tobacco Use Types [...]
--- OUTSIDE RECORDS SUMMARY | 2024-02-23 13:30 | XMS_ITS | Encounter Summary ---
Author Organization [facility] Address [address] [place] [address]. [place] [address] [place] [address] Care Team Providers Care Organ Grinder Name Role Phone Dominic Recinos MD Primary Care Provider [phone] Bonilla Anton MD Unavailable Celso Haro DO Unavailable Evan Olivarez DPM Unavailable [phone] Encounter Details Date Type Department Care Team (Late st Contact Info) Description 07/05/2022 7:35 AM CDT - 07/05/2022 11:59 PM CDT Hospital Encounter [facility] [address] [place] [address] Graciela Rodriguez, SHIPPING TEAM LEADER [address] [place] [address] Discharge Disposition: Home or Self [...] on filedocumented in this encounter Care Teams Organ Grinder Relationship Specialty Start Date End Date Dominic Recinos MD [address] [place] [address] PCP - General INTERNAL MEDICINE 09/18/21 Bonilla Anton MD [address] [place] [address] Consulting Physician INTERNAL MEDICINE 10/16/21 Celso Haro DO [address] [place] [address] INTERNAL MEDICINE 10/16/21 Evan Olivarez DPM [address] [facility] [facility] [place] [address] Consulting Physician PODIATRY/SURGERY 12/07/21 12/07/22 documented as of this encounter
--- OUTSIDE RECORDS SUMMARY | 2024-02-23 13:30 | XMS_ITS | Encounter Summary ---
Author Organization [facility] Address [address] [place] [address]. [place] [address] [place] [address] Care Team Providers Care Wire Cutter Name Role Phone Dominic Recinos MD Primary Care Provider [phone] Bonilla Anton MD Unavailable Celso Haro DO Unavailable Evan Olivarez DPM Unavailable [phone] Encounter Details Date Type Department Care Team (Late st Contact Info) Description 03/02/2022 8:00 AM PRESS WASHER - 03/02/2022 11:59 PM PRESS WASHER Hospital Encounter [facility] [address] [place] [address] Graciela Rodriguez, ADJUNCT PSYCHOLOGY INSTRUCTOR [address] [place] [address] Discharge Disposition: Home or Self [...] Coronavirus/COVID-19? No / Unsure 03/02/2022 8:09 AM PRESS WASHER documented as of this encounter Medications at [...] 10:05 AM Actions taken: MAR administration accepted S WASHER documented in this encounter Plan of Treatment [...] necrosis (CMS/HCC HHS/HCC) Given 03/02/2022 10:05 AM PRESS WASHER 5 mLs documented in this encounter Care Teams Wire Cutter Relationship Specialty Start Date End Date Dominic Recinos MD [address] [place] [address] PCP - General INTERNAL MEDICINE 09/18/21 Bonilla Anton MD [address] [place] [address] Consulting Physician INTERNAL MEDICINE 10/16/21 Celso Haro DO [address] [place] [address] INTERNAL MEDICINE 10/16/21 Evan Olivarez DPM [address] [place] [address] [place] [address] Consulting Physician PODIATRY/SURGERY 12/07/21 12/07/22 documented as of this encounter
--- OUTSIDE RECORDS SUMMARY | 2024-02-23 13:30 | XMS_ITS | Encounter Summary ---
Author Organization [facility] Address [address] [place] [address]. [place], [place] [address] [place] [address] Care Team Providers Care Fibre Optic Cable Splicer Name Role Phone Dominic Recinos MD Primary Care Provider [phone] Bonilla Anton MD Unavailable Celso Haro DO Unavailable Evan Olivarez DPM Unavailable [phone] Encounter Details Date Type Department Care Team (Late st Contact Info) Description 04/13/2022 12:33 PM PSYCHOLOGICAL OPERATIONS - 04/13/2022 11:59 PM PSYCHOLOGICAL OPERATIONS Hospital Encounter [facility] [address] [place] [address] Graciela Rodriguez, RADAR SCIENTIST [address] [place] [address] Discharge Disposition: Home or Self [...] Coronavirus/COVID-19? No / Unsure 04/26/2022 7:45 AM PSYCHOLOGICAL OPERATIONS documented as of this encounter Medications at [...] - 04/13/2022 1:00 PM CSTEncounter addended by: Denises Michel RN on: 04/13/2022 3:32 PM Actions taken: MAR administration accepted HOLOGICAL OPERATIONS documented in this encounter Plan of Treatment [...] necrosis (CMS/HCC HHS/HCC) Given 04/13/2022 2:32 PM PSYCHOLOGICAL OPERATIONS 5 mLs documented in this encounter Care Teams Fibre Optic Cable Splicer Relationship Specialty Start Date End Date Dominic Recinos MD [address] [place] [address] PCP - General INTERNAL MEDICINE 09/18/21 Bonilla Anton MD 9 [place] [address] Consulting Physician INTERNAL MEDICINE 10/16/21 Celso Haro DO [address] [place] [address] INTERNAL MEDICINE 10/16/21 Evan Olivarez DPM [address] [place] [address] [place] [address] Consulting Physician PODIATRY/SURGERY 12/07/21 12/07/22 documented as of this encounter
--- OUTSIDE RECORDS SUMMARY | 2024-02-23 13:30 | XMS_ITS | Encounter Summary ---
Author Organization [facility] Address [facility]. [place], [place] [address] [place] [address] Care Team Providers Care Client Onboarding Analyst Name Role Phone Dominic Recinos MD Primary Care Provider [phone] Bonilla Anton MD Unavailable Celso Haro DO Unavailable Evan Olivarez DPM Unavailable [phone] Encounter Details Date Type Department Care Team [...] Coronavirus/COVID-19? No / Unsure 04/26/2022 7:45 AM MAINTENANCE INSTRUCTOR documented as of this encounter Plan of Treatment Not on file documented as of this encounter Visit Diagnoses Not on filedocumented in this encounter Care Teams Client Onboarding Analyst Relationship Specialty Start Date End Date Dominic Recinos MD [address] [place] [address] PCP - General INTERNAL MEDICINE 09/18/21 Bonilla Anton MD [address] [place] [address] Consulting Physician INTERNAL MEDICINE 10/16/21 Celso Haro DO [address] [place], [place] [id number] INTERNAL MEDICINE 10/16/21 Evan Olivarez DPM [address] [place] [address] Consulting Physician PODIATRY/SURGERY 12/07/21 12/07/22 documented as of this encounter
--- OUTSIDE RECORDS SUMMARY | 2024-02-23 13:30 | XMS_ITS | Encounter Summary ---
Author Organization [facility] Address [address] [place] [address]. [place] [address] [place] [address] Care Team Providers Care Client Manager Large Law Name Role Phone Dominic Recinos MD Primary Care Provider [phone] Bonilla Anton MD Unavailable Celso Haro DO Unavailable Evan Olivarez DPM Unavailable [phone] Encounter Details Date Type Department Care Team (Late st Contact Info) Description 05/17/2022 7:56 AM CDT - 05/17/2022 11:59 PM CDT Hospital Encounter [facility] [address] [place] [address] Graciela Rodriguez, WATERFRONT DIRECTOR [address] [place] [address] Discharge Disposition: Home or Self [...] 2 diabetes mellitus, with fat layer exposed ([facility]/HCC HHS/HCC)- Primary documented in this encounter Administered [...] mLs documented in this encounter Care Teams Client Manager Large Law Relationship Specialty Start Date End Date Dominic Recinos MD 4 [place] [address] PCP - General INTERNAL MEDICINE 09/18/21 Bonilla Anton MD 9 [place] [address] Consulting Physician INTERNAL MEDICINE 10/16/21 Celso Haro DO [address] [place] [address] INTERNAL MEDICINE 10/16/21 Evan Olivarez DPM [facility] [facility] [place] [address] Consulting Physician PODIATRY/SURGERY 12/07/21 12/07/22 documented as of this encounter
--- OUTSIDE RECORDS SUMMARY | 2024-02-23 13:30 | XMS_ITS | Encounter Summary ---
Author Organization [facility] Address [facility]6 [facility]. [place], [place] [address] [place] [address] Care Team Providers Care Visual Supervisor Name Role Phone Dominic Recinos MD Primary Care Provider [phone] Bonilla Anton MD Unavailable Celso Haro DO Unavailable Evan Olivarez DPM Unavailable [phone] Encounter Details Date Type Department Care Team [...] on filedocumented in this encounter Care Teams Visual Supervisor Relationship Specialty Start Date End Date Dominic Recinos MD [address] [place] [address] PCP - General INTERNAL MEDICINE 09/18/21 Bonilla Anton MD [address] [place] [address] Consulting Physician INTERNAL MEDICINE 10/16/21 Celso Haro DO [address] [place] [address] INTERNAL MEDICINE 10/16/21 Evan Olivarez DPM [address] [place] [address] Consulting Physician PODIATRY/SURGERY 12/07/21 12/07/22 documented as of this encounter
--- OUTSIDE RECORDS SUMMARY | 2024-02-23 13:30 | XMS_ITS | Encounter Summary ---
Author Organization [facility] Address [address] [place] [address]. [place], [place] [address] [place] [address] Care Team Providers Care [place] Boatman Name Role Phone Dominic Recinos MD Primary Care Provider [phone] Bonilla Anton MD Unavailable Celso Haro DO Unavailable Evan Olivarez DPM Unavailable Encounter Details Date Type Department Care Team (Late st Contact Info) Description 04/26/2022 7:46 AM CHEMICAL LAB TECHNICIAN - 04/26/2022 11:59 PM CHEMICAL LAB TECHNICIAN Hospital Encounter [facility] [address] [place] [address] Graciela Rodriguez, PSYCHOMETRIC EXAMINER [address] [place] [place] [address] Discharge Disposition: Home or Self [...] Coronavirus/COVID-19? No / Unsure 05/10/2022 7:46 AM CHEMICAL LAB TECHNICIAN documented as of this encounter Medications at [...] 9:13 AM Actions taken: MAR administration accepted ICAL LAB TECHNICIAN documented in this encounter Plan of Treatment [...] necrosis (CMS/HCC HHS/HCC) Given 04/26/2022 8:00 AM CHEMICAL LAB TECHNICIAN 5 mLs documented in this encounter Care Teams [place] Boatman Relationship Specialty Start Date End Date Dominic Recinos MD 4 [place] [address] PCP - General INTERNAL MEDICINE 09/18/21 Bonilla Anton MD 9 [place] [address] Consulting Physician INTERNAL MEDICINE 10/16/21 Celso Haro DO [address] [place] [address] INTERNAL MEDICINE 10/16/21 Evan Olivarez DPM [facility]5 [facility] [place] [address] Consulting Physician PODIATRY/SURGERY 12/07/21 12/07/22 documented as of this encounter
--- OUTSIDE RECORDS SUMMARY | 2024-02-23 13:30 | XMS_ITS | Encounter Summary ---
Author Organization [facility] Address [address] [place] [address]. [place], [place] [address] [place] [address] Care Team Providers Care Social Science Manager Name Role Phone Dominic Recinos MD Primary Care Provider [phone] Bonilla Anton MD Unavailable Celso Haro DO Unavailable Evan Olivarez DPM Unavailable [phone] Encounter Details Date Type Department Care Team (Late st Contact Info) Description 02/15/2022 8:00 AM MATHEMATICAL PHYSICIST - 02/15/2022 11:59 PM MATHEMATICAL PHYSICIST Hospital Encounter [facility] [address] [place] [address] Graciela Rodriguez, PARASITOLOGIST [address] [place] [address] Discharge Disposition: Home or Self [...] Coronavirus/COVID-19? No / Unsure 02/15/2022 7:43 AM MATHEMATICAL PHYSICIST documented as of this encounter Medications at [...] 12:21 PM Actions taken: MAR administration accepted EMATICAL PHYSICIST documented in this encounter Plan of Treatment [...] necrosis (CMS/HCC HHS/HCC) Given 02/15/2022 8:30 AM MATHEMATICAL PHYSICIST 5 mLs documented in this encounter Care Teams Social Science Manager Relationship Specialty Start Date End Date Dominic Recinos MD [address] [place] [address] PCP - General INTERNAL MEDICINE 09/18/21 Bonilla Anton MD 9 [place] [address] Consulting Physician INTERNAL MEDICINE 10/16/21 Celso Haro DO [address] [place] [address] INTERNAL MEDICINE 10/16/21 Evan Olivarez DPM [facility] [facility] [place] [address] Consulting Physician PODIATRY/SURGERY 12/07/21 12/07/22 documented as of this encounter
--- OUTSIDE RECORDS SUMMARY | 2024-02-23 13:30 | XMS_ITS | Encounter Summary ---
Author Organization [facility] Address [address] [place] [address]. [place] [address] [place] [address] Care Team Providers Care Interactive Media Project Manager Name Role Phone Dominic Recinos MD Primary Care Provider [phone] Bonilla Anton MD Unavailable Celso Haro DO Unavailable Evan Olivarez DPM Unavailable [phone] Encounter Details Date Type Department Care Team (Late st Contact Info) Description 06/14/2022 7:38 AM CDT - 06/14/2022 11:59 PM CDT Hospital Encounter [facility] [address] [place] [address] Graciela Rodriguez, SCIENCE FACULTY MEMBER [address] [place] [address] Discharge Disposition: Home or Self [...] mLs documented in this encounter Care Teams Interactive Media Project Manager Relationship Specialty Start Date End Date Dominic Recinos MD [address] [place] [address] PCP - General INTERNAL MEDICINE 09/18/21 Bonilla Anton MD [address] [place] [address] Consulting Physician INTERNAL MEDICINE 10/16/21 Celso Haro DO [address] [facility] [address] [place] [address] INTERNAL MEDICINE 10/16/21 Evan Olivarez DPM [address] [place] [address] Consulting Physician PODIATRY/SURGERY 12/07/21 12/07/22 documented as of this encounter
--- OUTSIDE RECORDS SUMMARY | 2024-02-23 13:30 | XMS_ITS | Encounter Summary ---
Author Organization [facility] Address [address] [place] [address]. [place], [place] [address] [place] [address] Care Team Providers Care Molecular Genetic Pathologist Name Role Phone Dominic Recinos MD Primary Care Provider [phone] Bonilla Anton MD Unavailable Celso Haor DO Unavailable Evan Olivarez DPM Unavailable [phone] Encounter Details Date Type Department Care Team (Late st Contact Info) Description 02/22/2022 7:48 AM DEPUTY DIRECTOR - 02/22/2022 11:59 PM DEPUTY DIRECTOR Hospital Encounter [facility] [address] [place] [address] Graciela Rodriguez, REGISTERED DIETICIAN [address] [place] [address] Discharge Disposition: Home or Self [...] Coronavirus/COVID-19? No / Unsure 02/22/2022 7:41 AM DEPUTY DIRECTOR documented as of this encounter Medications at [...] taken: Order list changed, Diagnosis association updated TY DIRECTOR * Nieves Lowry RN - 02/22/2022 8:00 AM CSTEncounter addended by: Nieves Lowry RN on: 02/22/2022 9:39 AM Actions taken: MAR administration accepted TY DIRECTOR documented in this encounter Plan of Treatment [...] necrosis (CMS/HCC HHS/HCC) Given 02/22/2022 8:10 AM DEPUTY DIRECTOR 5 mLs silver-potassium nitrate applicator 1 applicator 1 applicator, Topical, Once, 1 dose, On Tue02/22/22 at 0930Indications:Diabetic ulcer of left heel associated with type 2 diabetes mellitus, 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 (CMS/HCC HHS/HCC) Given 02/22/2022 8:50 AM DEPUTY DIRECTOR 1 applicator documented in this encounter Care Teams Molecular Genetic Pathologist Relationship Specialty Start Date End Date Dominic Recinos MD [address] [place] [address] PCP - General INTERNAL MEDICINE 09/18/21 Bonilla Anton MD [address] [place] [address] Consulting Physician INTERNAL MEDICINE 10/16/21 Celso Haro DO [address] [place] [address] INTERNAL MEDICINE 10/16/21 Evan Olivarez DPM [address] [facility] [place] [address] Consulting Physician PODIATRY/SURGERY 12/07/21 12/07/22 documented as of this encounter
--- OUTSIDE RECORDS SUMMARY | 2024-02-23 13:30 | XMS_ITS | Encounter Summary ---
Author Organization [facility] Address [facility]6 [facility]. [place], [place] [address] [place] [address] Care Team Providers Care Hotel Security Officer Name Role Phone Dominic Recinos MD Primary Care Provider [phone] Bonilla Anton MD Unavailable Celso Haro DO Unavailable Evan Olivarez DPM Unavailable [phone] Encounter Details Date Type Department Care Team [...] Coronavirus/COVID-19? No / Unsure 04/19/2022 7:54 AM CONSULTING SERVICES ASSOCIATE documented as of this encounter Plan of Treatment Not on file documented as of this encounter Visit Diagnoses Not on filedocumented in this encounter Care Teams Hotel Security Officer Relationship Specialty Start Date End Date Dominic Recinos MD [address] [place] [address] PCP - General INTERNAL MEDICINE 09/18/21 Bonilla Anton MD [address] [place] [address] Consulting Physician INTERNAL MEDICINE 10/16/21 Celso Haro DO [address] [place], [place] [address] INTERNAL MEDICINE 10/16/21 Evan Olivarez DPM [address] [place] [address] Consulting Physician PODIATRY/SURGERY 12/07/21 12/07/22 documented as of this encounter
--- OUTSIDE RECORDS SUMMARY | 2024-02-23 13:30 | XMS_ITS | Encounter Summary ---
Author Organization [facility] Address [facility]6 [facility]. [place], [place] [address] [place] [address] Care Team Providers Care Curtain Feller Blindstitch Name Role Phone Dominic Recinos MD Primary Care Provider [phone] Bonilla Anton MD Unavailable Celso Haro DO Unavailable Evan Olivarez DPM Unavailable [phone] Encounter Details Date Type Department Care Team [...] on filedocumented in this encounter Care Teams Curtain Feller Blindstitch Relationship Specialty Start Date End Date Dominic Recinos MD [address] [place] [address] PCP - General INTERNAL MEDICINE 09/18/21 Bonilla Anton MD [address] [place] [address] Consulting Physician INTERNAL MEDICINE 10/16/21 Celso Haro DO [address] [place] [address] INTERNAL MEDICINE 10/16/21 Evan Olivarez DPM [address] [place] [address] Consulting Physician PODIATRY/SURGERY 12/07/21 12/07/22 documented as of this encounter
--- OUTSIDE RECORDS SUMMARY | 2024-02-23 13:30 | XMS_ITS | Encounter Summary ---
Author Organization [facility] Address [facility]6 [facility]. [place], [place] [address] [place] [address] Care Team Providers Care Supervisor Modern Languages Name Role Phone Dominic Recinos MD Primary Care Provider [phone] Bonilla Anton MD Unavailable Celso Haro DO Unavailable Evan Olivarez DPM Unavailable [phone] Encounter Details Date Type Department Care Team [...] on filedocumented in this encounter Care Teams Supervisor Modern Languages Relationship Specialty Start Date End Date Dominic Recinos MD [address] [place] [address] PCP - General INTERNAL MEDICINE 09/18/21 Bonilla Anton MD [address] [place] [address] Consulting Physician INTERNAL MEDICINE 10/16/21 Celso Haro DO [address] [place] [address] INTERNAL MEDICINE 10/16/21 Evan Olivarez DPM [address] [place] [address] Consulting Physician PODIATRY/SURGERY 12/07/21 12/07/22 documented as of this encounter
--- OUTSIDE RECORDS SUMMARY | 2024-02-23 13:30 | XMS_ITS | Encounter Summary ---
Author Organization [facility] Address [facility]6 [facility]. [place], [place] [address] [place] [address] Care Team Providers Care Resort Manager Name Role Phone Dominic Recinos MD Primary Care Provider Bonilla Anton MD Unavailable Celso Haro DO Unavailable Evan Olivarez DPM Unavailable [phone] Encounter Details Date Type Department Care Team [...] Coronavirus/COVID-19? No / Unsure 03/02/2022 8:09 AM LOG ROLLER documented as of this encounter Plan of Treatment Not on file documented as of this encounter Visit Diagnoses Not on filedocumented in this encounter Care Teams Resort Manager Relationship Specialty Start Date End Date Dominic Recinos MD [address] [place] [address] PCP - General INTERNAL MEDICINE 09/18/21 Bonilla Anton MD [address] [place] [address] Consulting Physician INTERNAL MEDICINE 10/16/21 Celso Haro DO [address] [place], [place] [address] INTERNAL MEDICINE 10/16/21 Evan Olivarez DPM [address] [place] [address] Consulting Physician PODIATRY/SURGERY 12/07/21 12/07/22 documented as of this encounter
--- OUTSIDE RECORDS SUMMARY | 2024-02-23 13:30 | XMS_ITS | Encounter Summary ---
Author Organization [facility] Address [facility]6 [facility]. [place], [place] [address] [place] [address] Care Team Providers Care Cooker Tender Name Role Phone Dominic Recinos MD Primary Care Provider [phone] Bonilla Anton MD Unavailable Celso Haro DO Unavailable Evan Olivarez DPM Unavailable [phone] Encounter Details Date Type Department Care Team [...] on filedocumented in this encounter Care Teams Cooker Tender Relationship Specialty Start Date End Date Dominic Recinos MD [address] [place] [address] PCP - General INTERNAL MEDICINE 09/18/21 Bonilla Anton MD [address] [place] [address] Consulting Physician INTERNAL MEDICINE 10/16/21 Celso Haro DO [address] [place] [address] INTERNAL MEDICINE 10/16/21 Evan Olivarez DPM [address] [place] [address] Consulting Physician PODIATRY/SURGERY 12/07/21 12/07/22 documented as of this encounter
--- OUTSIDE RECORDS SUMMARY | 2024-02-23 13:30 | XMS_ITS | Encounter Summary ---
Author Organization [facility] Address [address] [place] [address]. [place], [place] [address] [place] [address] Care Team Providers Care Tool Shaper Set Up Operator Name Role Phone Dominic Recinos MD Primary Care Provider Bonilla Anton MD Unavailable Celso Haro DO Unavailable Evan Olivarez DPM Unavailable [phone] Encounter Details Date Type Department Care Team [...] Coronavirus/COVID-19? No / Unsure 05/10/2022 7:46 AM ZINC MINER documented as of this encounter Plan of Treatment Not on file documented as of this encounter Visit Diagnoses Not on filedocumented in this encounter Care Teams Tool Shaper Set Up Operator Relationship Specialty Start Date End Date Dominic Recinos MD [address] [place] [address] PCP - General INTERNAL MEDICINE 09/18/21 Bonilla Anton MD [address] [place] [address] Consulting Physician INTERNAL MEDICINE 10/16/21 Celso Haro DO [address] [place], [place] [address] INTERNAL MEDICINE 10/16/21 Evan Olivarez DPM [address] [place] [address] Consulting Physician PODIATRY/SURGERY 12/07/21 12/07/22 documented as of this encounter
--- OUTSIDE RECORDS SUMMARY | 2024-02-23 13:30 | XMS_ITS | Encounter Summary ---
Author Organization [facility] Address [address] [place] [address]. [place] [address] [place] [address] Care Team Providers Care Garment Manufacturer Name Role Phone Dominic Recinos MD Primary Care Provider [phone] Bonilla Anton MD Unavailable Celso Haro DO Unavailable Evan Olivarez DPM Unavailable [phone] Encounter Details Date Type Department Care Team (Late st Contact Info) Description 05/24/2022 7:43 AM CDT - 05/24/2022 11:59 PM CDT Hospital Encounter [facility] [address] [place] [address] Gracilea Rodriguez, LINER MAN [address] [place] [address] Discharge Disposition: Home or Self [...] 2 diabetes mellitus, with fat layer exposed ([facility]/HCC HHS/HCC)- Primary documented in this encounter [...] mLs documented in this encounter Care Teams Garment Manufacturer Relationship Specialty Start Date End Date Dominic Recinos MD [address] [place] [address] PCP - General INTERNAL MEDICINE 09/18/21 Bonilla Anton MD 9 [place] [address] Consulting Physician INTERNAL MEDICINE 10/16/21 Celso Haro DO [address] [place] [address] INTERNAL MEDICINE 10/16/21 Evan Olivarez DPM [facility]5 [facility] [place] [address] Consulting Physician PODIATRY/SURGERY 12/07/21 12/07/22 documented as of this encounter
--- OUTSIDE RECORDS SUMMARY | 2024-02-23 13:30 | XMS_ITS | Encounter Summary ---
Author Organization [facility] Address [facility]6 [facility]. [place], [place] [address] [place] [address] Care Team Providers Care Roulette Dealer Name Role Phone Dominic Recinos MD Primary Care Provider [phone] Bonilla Anton MD Unavailable Celso Haro DO Unavailable Evan Olivarez DPM Unavailable [phone] Encounter Details Date Type Department Care Team [...] Coronavirus/COVID-19? No / Unsure 03/30/2022 8:13 AM RESEARCH PROGRAMMER documented as of this encounter Plan of Treatment Not on file documented as of this encounter Visit Diagnoses Not on filedocumented in this encounter Care Teams Roulette Dealer Relationship Specialty Start Date End Date Dominci Recinos MD [address] [place] [address] PCP - General INTERNAL MEDICINE 09/18/21 Bonilla Anton MD [address] [place] [address] Consulting Physician INTERNAL MEDICINE 10/16/21 Celso Haro DO [address] [place], [place] [address] INTERNAL MEDICINE 10/16/21 Evan Olivarez DPM [address] [place] [address] Consulting Physician PODIATRY/SURGERY 12/07/21 12/07/22 documented as of this encounter
--- OUTSIDE RECORDS SUMMARY | 2024-02-23 13:30 | XMS_ITS | Encounter Summary ---
Author Organization [facility] Address [facility]6 [facility]. [place], [place] [address] [place] [address] Care Team Providers Care Epitaxial Reactor Technician Name Role Phone Dominic Recinos MD Primary Care Provider [phone] Bonilla Anton MD Unavailable Celso Haro DO Unavailable Evan Olivarez DPM Unavailable [phone] Encounter Details Date Type Department Care Team [...] Coronavirus/COVID-19? No / Unsure 02/15/2022 7:43 AM HOP WEIGHER documented as of this encounter Plan of Treatment Not on file documented as of this encounter Visit Diagnoses Not on filedocumented in this encounter Care Teams Epitaxial Reactor Technician Relationship Specialty Start Date End Date Dominic Recinos MD [address] [place] [address] PCP - General INTERNAL MEDICINE 09/18/21 Bonilla Anton MD [address] [place] [address] Consulting Physician INTERNAL MEDICINE 10/16/21 Celso Haro DO [address] [place], [place] [address] INTERNAL MEDICINE 10/16/21 Evan Olivarez DPM [address] [place] [address] Consulting Physician PODIATRY/SURGERY 12/07/21 12/07/22 documented as of this encounter
--- OUTSIDE RECORDS SUMMARY | 2024-02-23 13:30 | XMS_ITS | Encounter Summary ---
Author Organization [facility] Address [address] [place] [address]. [place], [place] [address] [place] [address] Care Team Providers Care Line Server Name Role Phone Dominic Recinos MD Primary Care Provider [phone] Bonilla Anton MD Unavailable Celso Haro DO Unavailable Evan Olivarez DPM Unavailable [phone] Encounter Details Date Type Department Care Team (Late st Contact Info) Description 05/10/2022 7:53 AM SHEARING SHED HAND - 05/10/2022 11:59 PM SHEARING SHED HAND Hospital Encounter [facility] [address] [place] [address] Graciela Rodriguez, RECREATION TEACHER [address] [place] [address] Discharge Disposition: Home or Self [...] Coronavirus/COVID-19? No / Unsure 05/10/2022 7:46 AM SHEARING SHED HAND documented as of this encounter Medications at [...] on filedocumented in this encounter Care Teams Line Server Relationship Specialty Start Date End Date Dominic Recinos MD [address] [place] [address] PCP - General INTERNAL MEDICINE 09/18/21 Bonilla Anton MD [address] [place] [address] Consulting Physician INTERNAL MEDICINE 10/16/21 Celso Haro DO [address] [facility] [address] [place], [place] [id number] INTERNAL MEDICINE 10/16/21 Evan Olivarez DPM [address] [facility] [address] Consulting Physician PODIATRY/SURGERY 12/07/21 12/07/22 documented as of this encounter
--- OUTSIDE RECORDS SUMMARY | 2024-02-23 13:30 | XMS_ITS | Encounter Summary ---
Author Organization [facility] Address [address] [place] [address]. [place], [place] [address] [place] [address] Care Team Providers Care Porcelain Finisher Name Role Phone Dominic Recinos MD Primary Care Provider [phone] Bonilla Anton MD Unavailable Celso Haro DO Unavailable Evan Olivarez DPM Unavailable [phone] Encounter Details Date Type Department Care Team (Late st Contact Info) Description 03/30/2022 8:15 AM HOSPICE SUPERINTENDENT - 03/30/2022 11:59 PM HOSPICE SUPERINTENDENT Hospital Encounter [facility] [address] [place] [address] Graciela Rodriguez, ASTRONOMY INSTRUCTOR [address] [place] [address] Discharge Disposition: Home or Self [...] Coronavirus/COVID-19? No / Unsure 04/13/2022 12:32 PM HOSPICE SUPERINTENDENT documented as of this encounter Medications at [...] 3:02 PM Actions taken: MAR administration accepted ICE SUPERINTENDENT documented in this encounter Plan of Treatment [...] necrosis (CMS/HCC HHS/HCC) Given 03/30/2022 11:00 AM HOSPICE SUPERINTENDENT 5 mLs documented in this encounter Care Teams Porcelain Finisher Relationship Specialty Start Date End Date Dominic Recinos MD [address] [place] [address] PCP - General INTERNAL MEDICINE 09/18/21 Bonilla Anton MD 9 [place] [address] Consulting Physician INTERNAL MEDICINE 10/16/21 Celso Haro DO [address] [place] [address] INTERNAL MEDICINE 10/16/21 Evan Olivarez DPM [address] [place] [address] [place] [address] Consulting Physician PODIATRY/SURGERY 12/07/21 12/07/22 documented as of this encounter
--- OUTSIDE RECORDS SUMMARY | 2024-02-23 13:30 | XMS_ITS | Encounter Summary ---
Author Organization [facility] Address [facility]. [place], [place] [address] [place] [address] Care Team Providers Care Assisted Living Executive Director Name Role Phone Dominic Recinos MD Primary Care Provider [phone] Bonilla Anton MD Unavailable Celso Haro DO Unavailable Evan Olivarez DPM Unavailable [phone] Encounter Details Date Type Department Care Team [...] Coronavirus/COVID-19? No / Unsure 02/22/2022 7:41 AM SHIFT SUPERVISOR documented as of this encounter Plan of Treatment Not on file documented as of this encounter Visit Diagnoses Not on filedocumented in this encounter Care Teams Assisted Living Executive Director Relationship Specialty Start Date End Date Dominic Recinos MD [address] [place] [address] PCP - General INTERNAL MEDICINE 09/18/21 Bonilla Anton MD [address] [place] [address] Consulting Physician INTERNAL MEDICINE 10/16/21 Celso Haro DO [address] [place], [place] [id number] INTERNAL MEDICINE 10/16/21 Evan Olivarez DPM [address] [place] [address] Consulting Physician PODIATRY/SURGERY 12/07/21 12/07/22 documented as of this encounter
--- OUTSIDE RECORDS SUMMARY | 2024-02-23 13:30 | XMS_ITS | Encounter Summary ---
Author Organization [facility] Address [address] [place] [address]. [place], [place] [address] [place] [address] Care Team Providers Care Management Trainer Name Role Phone Dominic Recinos MD Primary Care Provider [phone] Bonilla Anton MD Unavailable Celso Haro DO Unavailable Evan Olivarez DPM Unavailable [phone] Encounter Details Date Type Department Care Team (Late st Contact Info) Description 05/31/2022 7:40 AM CDT - 05/31/2022 11:59 PM CDT Hospital Encounter [facility] [address] [place] [address] Graciela Rodriguez, DATA CAPTURE CLERK [address] [place] [address] Discharge Disposition: Home or [...] mLs documented in this encounter Care Teams Management Trainer Relationship Specialty Start Date End Date Dominic Recinos MD [address] [place] [address] PCP - General INTERNAL MEDICINE 09/18/21 Bonilla Anton MD [address] [place] [address] Consulting Physician INTERNAL MEDICINE 10/16/21 Celso Haro DO [address] [place] [address] INTERNAL MEDICINE 10/16/21 Evan Olivarez DPM [address] [facility] [address] Consulting Physician PODIATRY/SURGERY 12/07/21 12/07/22 documented as of this encounter
--- OUTSIDE RECORDS SUMMARY | 2024-02-23 13:30 | XMS_ITS | Encounter Summary ---
Author Organization [facility] Address [address] [place] [address]. [place], [place] [address] [place] [address] Care Team Providers Care Political Consultant Name Role Phone Dominic Recinos MD Primary Care Provider [phone] Bonilla Anton MD Unavailable Celso Haro DO Unavailable Evan Olivarez DPM Unavailable [phone] Encounter Details Date Type Department Care Team (Late st Contact Info) Description 04/19/2022 7:57 AM JIG AND FIXTURE MAKER - 04/19/2022 11:59 PM JIG AND FIXTURE MAKER Hospital Encounter [facility] [address] [place] [address] Graciela Rodriguez, AUTOMOBILE SALES REPRESENTATIVE [address] [place] [address] Discharge Disposition: Home or Self [...] Coronavirus/COVID-19? No / Unsure 04/26/2022 7:45 AM JIG AND FIXTURE MAKER documented as of this encounter Medications [...] 3:08 PM Actions taken: MAR administration accepted AND FIXTURE MAKER documented in this encounter Plan of [...] exposed (CMS/HCC HHS/HCC) Given 04/19/2022 8:45 AM JIG AND FIXTURE MAKER 5 mLs documented in this encounter Care Teams Political Consultant Relationship Specialty Start Date End Date Dominic Recinos MD [address] [place] [id number] PCP - General INTERNAL MEDICINE 09/18/21 Bonilla Anton MD [address] [place] [address] Consulting Physician INTERNAL MEDICINE 10/16/21 Celso Haro DO [address] [place] [address] INTERNAL MEDICINE 10/16/21 Evan Olivarez DPM [address] [facility] [place] [address] Consulting Physician PODIATRY/SURGERY 12/07/21 12/07/22 documented as of this encounter
--- OUTSIDE RECORDS SUMMARY | 2024-02-23 13:30 | XMS_ITS | Encounter Summary ---
Author Organization [facility] Address [address] [place] [address]. [place] [address] [place] [address] Care Team Providers Care Machinery Cleaner Name Role Phone Dominic Recinos MD Primary Care Provider [phone] Bonilla Anton MD Unavailable Celso Haro DO Unavailable Evan Olivarez DPM Unavailable [phone] Reason for Visit * Reason Onset Date Comments Called To Cancel Office Appt. 06/07/2022 Encounter Details Date Type Department Care Team (Late st Contact Info) Description 06/07/2022 [facility] [address] [place] [address] Bonilla Anton MD [address] [place] [address] Called To Cancel Office Appt. [...] DATE/TIME:06/07 @ 8:58am CALLER: Diego Broderick #: [phone] PROVIDER/NEW PT: Desean REASON FOR CALL: needs to cancel tomorrow's appt as he is currently hospitalized. Son will return call to reschedule. REQUEST HANDLED AND HOW: cancelled appt IF NOT HANDLED, ENCOUNTER NOTE SENT TO: n/a documented in this encounter Plan of Treatment Not on file documented as of this encounter Visit Diagnoses Not on filedocumented in this encounter Care Teams Machinery Cleaner Relationship Specialty Start Date End Date Dominic Recinos MD [address] [place] [address] PCP - General INTERNAL MEDICINE 09/18/21 Bonilla Anton MD [address] [place] [address] Consulting Physician INTERNAL MEDICINE 10/16/21 Celso Haro DO [address] [place] [address] INTERNAL MEDICINE 10/16/21 Evan Olivarez DPM [address] [facility] [place] [address] Consulting Physician PODIATRY/SURGERY 12/07/21 12/07/22 documented as of this encounter
--- OUTSIDE RECORDS SUMMARY | 2024-02-23 13:30 | XMS_ITS | Encounter Summary ---
Author Organization [facility] Address [facility]. [place], [place] [address] [place] [address] Care Team Providers Care Accounts Receivable Clerk Name Role Phone Dominic Recinos MD Primary Care Provider [phone] Bonilla Anton MD Unavailable Celso Haro DO Unavailable Evan Olivarez DPM Unavailable [phone] Encounter Details Date Type Department Care Team [...] on filedocumented in this encounter Care Teams Accounts Receivable Clerk Relationship Specialty Start Date End Date Dominic Recinos MD [address] [place] [address] PCP - General INTERNAL MEDICINE 09/18/21 Bonilla Anton MD [address] [place] [address] Consulting Physician INTERNAL MEDICINE 10/16/21 Celso Hrao DO [address] [place] [address] INTERNAL MEDICINE 10/16/21 Evan Olivarez DPM [address] [place] [address] Consulting Physician PODIATRY/SURGERY 12/07/21 12/07/22 documented as of this encounter
--- OUTSIDE RECORDS SUMMARY | 2024-02-23 13:30 | XMS_ITS | Encounter Summary ---
Author Organization [facility] Address [facility]. [place], [place] [address] [place] [address] Care Team Providers Care Harvest Field Ticketer Name Role Phone Dominic Recinos MD Primary Care Provider [phone] Bonilla Anton MD Unavailable Celso Haro DO Unavailable Evan Olivarez DPM Unavailable [phone] Encounter Details Date Type Department Care Team [...] Coronavirus/COVID-19? No / Unsure 04/13/2022 12:32 PM BELT CUTTER documented as of this encounter Plan of Treatment Not on file documented as of this encounter Visit Diagnoses Not on filedocumented in this encounter Care Teams Harvest Field Ticketer Relationship Specialty Start Date End Date Dominic Recinos MD [address] [place] [address] PCP - General INTERNAL MEDICINE 09/18/21 Bonilla Anton MD [address] [place] [address] Consulting Physician INTERNAL MEDICINE 10/16/21 Celso Haro DO [address] [place], [place] [phone] INTERNAL MEDICINE 10/16/21 Evan Olivarez DPM [address] [place] [address] Consulting Physician PODIATRY/SURGERY 12/07/21 12/07/22 documented as of this encounter
--- OUTSIDE RECORDS SUMMARY | 2024-02-23 13:30 | XMS_ITS | Encounter Summary ---
Author Organization [facility] Address [facility]. [place], [place] [address] [place] [address] Care Team Providers Care Education Teacher Name Role Phone Dominic Recinos MD Primary Care Provider [phone] Bonilla Anton MD Unavailable Celso Haro DO Unavailable Evan Olivarez DPM Unavailable [phone] Encounter Details Date Type Department Care Team [...] Coronavirus/COVID-19? No / Unsure 02/08/2022 8:00 AM SHIP'S OFFICER documented as of this encounter Plan of Treatment Not on file documented as of this encounter Visit Diagnoses Not on filedocumented in this encounter Care Teams Education Teacher Relationship Specialty Start Date End Date Dominic Recinos MD [address] [place] [address] PCP - General INTERNAL MEDICINE 09/18/21 Bonilla Anton MD [address] [place] [address] Consulting Physician INTERNAL MEDICINE 10/16/21 Celso Haro DO [address] [place], [place] [address] INTERNAL MEDICINE 10/16/21 Evan Olivarez DPM [address] [place] [address] Consulting Physician PODIATRY/SURGERY 12/07/21 12/07/22 documented as of this encounter
--- OUTSIDE RECORDS SUMMARY | 2024-02-23 13:30 | XMS_ITS | Encounter Summary ---
Author Organization [facility] Address [address] [place] [address]. [place] [address] [place] [address] Care Team Providers Care Plant Pathologist Name Role Phone Dominic Recinos MD Primary Care Provider [phone] Bonilla Anton MD Unavailable Celso Haro DO Unavailable Evan Olivarez DPM Unavailable [phone] Encounter Details Date Type Department Care Team (Late st Contact Info) Description 06/21/2022 7:44 AM CDT - 06/21/2022 11:59 PM CDT Hospital Encounter [facility] [address] [address] Graciela Rodriguez, DATA STORAGE SPECIALIST [address] [place] [address] Discharge Disposition: Home or Self [...] diabetes mellitus, limited to breakdown of skin ([facility] HHS/HCC)- Primary documented in this encounter Administered [...] mLs documented in this encounter Care Teams Plant Pathologist Relationship Specialty Start Date End Date Dominic Recinos MD [address] [place] [address] PCP - General INTERNAL MEDICINE 09/18/21 Bonilla Anton MD [address] [place] [address] Consulting Physician INTERNAL MEDICINE 10/16/21 Celso Haro DO [address] [place] [address] INTERNAL MEDICINE 10/16/21 Evan Olivarez DPM [address] [place] [address] [place] [address] Consulting Physician PODIATRY/SURGERY 12/07/21 12/07/22 documented as of this encounter
--- OUTSIDE RECORDS SUMMARY | 2024-02-23 13:31 | XMS_ITS | Encounter Summary ---
Author Organization [facility] Address [address] [place] [address]. [place] [address] [place] [address] Care Team Providers Care Tub Attendant Name Role Phone Dominic Recinos MD Primary Care Provider [phone] Bonilla Anton MD Unavailable Celso Haro DO Unavailable Evan Olivarez DPM Unavailable [phone] Encounter Details Date Type Department Care Team (Late st Contact Info) Description 01/11/2022 8:24 AM DISTRIBUTOR OF DIRECTORIES - 01/11/2022 11:59 PM DISTRIBUTOR OF DIRECTORIES Hospital Encounter [facility] [address] [address] Graciela Rodriguez, MANAGER CUSTOM [address] [place] [address] Discharge Disposition: Home or Self [...] Coronavirus/COVID-19? No / Unsure 01/11/2022 8:21 AM DISTRIBUTOR OF DIRECTORIES documented as of this encounter Medications at [...] exposed (CMS/HCC HHS/HCC) Given 01/11/2022 8:30 AM DISTRIBUTOR OF DIRECTORIES 5 mLs documented in this encounter Care Teams Tub Attendant Relationship Specialty Start Date End Date Dominic Recinos MD [address] [place] [id number] PCP - General INTERNAL MEDICINE 09/18/21 Bonilla Anton MD [address] [place] [address] Consulting Physician INTERNAL MEDICINE 10/16/21 Celso Haro DO [address] [place] [address] INTERNAL MEDICINE 10/16/21 Evan Olivarez DPM [address] [facility] [place] [address] Consulting Physician PODIATRY/SURGERY 12/07/21 12/07/22 documented as of this encounter
--- OUTSIDE RECORDS SUMMARY | 2024-02-23 13:31 | XMS_ITS | Encounter Summary ---
Author Organization [facility] Address [address] [place] [address]. [place] [address] [place] [address] Care Team Providers Care Assistant Professor Sculpture Name Role Phone Dominic Recinos MD Primary Care Provider [phone] Bonilla Anton MD Unavailable Celso Haro DO Unavailable Evan Olivarez DPM Unavailable [phone] Reason for Visit * Auth/Cert (Routine) Specialty Diagnoses / Procedures Referred By Contac t Referred To Contact Diagnoses NON-PRESSURE ULCER LEFT HEEL Procedures DEEP DEBRIDEMENT OF ULCER LEFT HEEL Evan Olivarez, DPM [address] [place] [address] Phone: tel: fax: Referral ID Status Reason Start Date Expiration Date Visits Re quested Visits Authorized [id number] 1 1 Encounter Details Date Type Department Care Team (Latest Contact Info) Description 01/22/2022 11:15 AM ERP CONSULTANT - 01/22/2022 2:32 PM [facility] Hospital [facility] [address] [place] [address] Evan Olivarez, DPM [address] [place] [address] Discharge Disposition: Home or Self [...] Coronavirus/COVID-19? No / Unsure 01/22/2022 11:14 AM ERP CONSULTANT documented as of this encounter Last Filed Vital Signs Vital Sign Reading Time Taken Comments Blood Pressure 101/51 01/22/2022 2:22 PM ERP CONSULTANT Pulse 62 01/22/2022 2:22 PM ERP CONSULTANT Temperature 35.4 ??C (95.7 ??F) 01/22/2022 2:22 PM CS T Respiratory Rate 16 01/22/2022 2:22 PM ERP CONSULTANT Oxygen Saturation 99% 01/22/2022 2:22 PM ERP CONSULTANT Inhaled Oxygen Concentration - - Weight 108.9 kg (240 lb) 01/19/2022 1:01 PM ERP CONSULTANT Height 172.7 cm (5' 8 ) 01/19/2022 1:01 PM ERP CONSULTANT Body Mass Index 36.49 01/19/2022 1:01 PM ERP CONSULTANT documented in this encounter Discharge Instructions * Attachments The following attachments cannot be sent through Care Everywhere. * Surgical Wound Discharge Instructions (Mauritanian) * Moderate Sedation in Adults Discharge Instructions (Mauritanian) * Nerve Blocks (Mauritanian) * Debridement of a Wound or Burn Discharge Instructions (Mauritanian) documented in this encounter Medications at Time [...] during recuperation were discussed with the patient/family/personal uniforms sales representative. Reasonable alternatives to the patient's proposed procedure/surgery including benefits, risks, and side effects related to the alternatives and the risks related to not receiving the proposed care were also discussed with the patient/family/personal uniforms sales representative. Questions were answered and the patient/family/personal uniforms sales representative verbalized understanding and desires to proceed. CONSULTANT Source Note - [facility] - 01/22/2022 12:00 AM ERP CONSULTANT documented in this encounter OR Notes * Brief Op Note - Evan Olivarez DPM - 01/22/2022 1:49 PM CST [facility] Brief Op HSHSDEEP DEBRIDEMENT OF ULCER LEFT HEEL Procedure Note Diego Harolambert Lance. 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 #[id number] /BRIANA CONSULTANT documented in this encounter Plan of Treatment Not on file documented as of this encounter Procedures Procedure Name Priority Date/Time Associated Diagnosis Comments POCT GLUCOSE - BAGLEY DOCKED DEVICE Routine 01/22/2022 2:01 PM ERP CONSULTANT CULTURE, TB/AFB W/ STAIN Routine 01/22/2022 1:25 PM ERP CONSULTANT CULTURE, FUNGUS W/ STAIN Routine 01/22/2022 1:25 PM ERP CONSULTANT HC BODY FLUID CULTURE Routine 01/22/2022 1:25 PM ERP CONSULTANT CULTURE, ANAEROBIC Routine 01/22/2022 1: 25 PM ERP CONSULTANT DEBRIDEMENT FOOT 01/22/2022 12:5 0 PM ERP CONSULTANT NON-PRESSURE ULCER LEFT HEEL Case Notes PULSE LAVAGE WITH GENT. POCT GLUCOSE - BAGLEY DOCKED DEVICE Routine 01/22/2022 12:07 PM ERP CONSULTANT documented in this encounter Results * POCT glucose (01/22/2022 2:01 PM ERP CONSULTANT) GLUCOSE POC 72 70 - 99 MG/DL 01/22/2022 2:51 PM ERP CONSULTANT [facility] 01/22/2022 2:01 PM ERP CONSULTANT us Evan Olivarez DPM POCT ORDERABLES - DEVICE Fin al Result [facility] [place] [address], * CULTURE, TB/AFB W/ STAIN (01/22/2022 1:25 PM ERP CONSULTANT) SPECIMEN SOURCE LEFT HEEL WOUND 01/22/2022 2:20 PM ERP CONSULTANT [facility] RESULT REPORT 02/18/2022 3:56 PM ERP CONSULTANT [employer] [facility]ARCIA Comment: Mycobacteria, Culture, with Fluorochrome Smear Mycobacteria Stn,AF,Fluor SOURCE : LEFT HEEL WOUND Result/Comment: No acid-fast bacilli seen. Mycobacteria smear result should be used as an adjunct to culture in diagnosing mycobacterial disease (e.g. tuberculosis). If intended, please ensure an order for Mycobacteria (Payi-Srbj-Pcmqrbb) culture has also been submitted. Acid Fast Culture SOURCE : LEFT HEEL WOUND Result/Comment: No Mycobacterium species isolated after 6 weeks incubation. ? Mycobacterial probe for TB complex not indicated ? Mycobacterial identification not indicated Test Performed by [employer] [place], [address] [place], [place] Raymond Reyna M.D., Ph.D., Director of Laboratories , [facility] [id number] REPORT STATUS FINAL 03/17/2022 2:14 PM ERP CONSULTANT [employer] RICHARD LL[employer]entina WOUND LEFT HEEL STRUCTURE / Unknown 01/22/2022 1:25 PM ERP CONSULTANT Evan Olivarez DPKimi MICROBIOLOGY - GENERAL ORDER LIDIA Final Result [employer] [facility] [address] [place], [place] , [place] [phone] [facility] [address] [place] [address], [place] [phone] * (ABNORMAL) CULTURE, FUNGUS W/ STAIN (01/22/2022 1:25 PM ERP CONSULTANT) SPECIMEN SOURCE LEFT HEEL WOUND 01/22/2022 2:19 PM ERP CONSULTANT [facility] Comment:CALLED TO BRANDIE OLIVAREZ OFFICE [phone] COMMENT REPORT(AA ) 02/02/2022 12:59 PM ERP CONSULTANT [employer] [place] Comment: FUNGUS CULTURE AND SMEAR Fungal Stain SOURCE : LEFT HEEL WOUND Result/Comment: No fungus seen on microscopic examination. Fungus Culture SOURCE : LEFT HEEL WOUND Result/Comment: Identification performed by mass spectrometry. ?? ORGANISM(S) ISOLATED 1. ??Light growth of Maggy parapsilosis CRITICAL VALUE REPORT Test Performed by Michael Andrews [employer] [place], [address] [place], [place] Raymond Reyna M.D., Ph.D., Director of Laboratories , [facility] [id number] REPORT STATUS FINAL 02/23/2022 5:19 PM ERP CONSULTANT [employer] [facility] WOUND LEFT HEEL STRUCTURE / Unknown 01/22/2022 1:25 PM ERP CONSULTANT Evan Olivarez DPM MICROBIOLOGY - GENERAL ORDER LIDIA Final Result [employer] [place] [id number] [place], [place] , [place] [phone] [facility] [place] [address], [place] [phone] * CULTURE, WOUND, W/GRAM STAIN (01/22/2022 1:25 PM ERP CONSULTANT) SPEC DESCRIPTION HEEL, LEFT 01/22/2022 2:04 PM ERP CONSULTANT [facility] SPECIAL REQUESTS NO SPECIAL REQUEST 01/22/2022 2:04 PM ERP CONSULTANT [facility] GRAM STAIN RESULT RARE GRAM POSITIVE COCCI 01/22/2022 5:24 PM ERP CONSULTANT [facility] GRAM STAIN RESULT RARE GRAM POSITIVE RODS 01/22/2022 5:24 PM ERP CONSULTANT [facility] CULTURE RESULT FEW PSEUDOMONAS AERUGINOSA 01/25/2022 2:13 PM ERP CONSULTANT [facility] WOUND LEFT HEEL STRUCTURE / Unknown 01/22/2022 1:25 PM ERP CONSULTANT Narrative Organism Antibiotic Method Susceptibility Pseudomonas aeruginosa [...] ORDER LIDIA Final Result Performing Organization Address [facility] de Phone Number [facility] [address] [place] [address], [place] [phone] [facility] [address] [place] [address], * CULTURE, ANAEROBIC (01/22/2022 1:25 PM ERP CONSULTANT) SPEC DESCRIPTION HEEL, LEFT 01/22/2022 2:04 PM ERP CONSULTANT [facility] SPECIAL REQUESTS NO SPECIAL REQUEST 01/22/2022 2:04 PM ERP CONSULTANT [facility] CULTURE RESULT NO ANAEROBES ISOLATED 01/27/2022 5:01 PM ERP CONSULTANT [facility] WOUND LEFT HEEL STRUCTURE / Unknown 01/22/2022 1:25 PM ERP CONSULTANT us Evan Olivarez DPM MICROBIOLOGY - GENERAL ORDER LIDIA Final Result Performing Organization Address [facility] de Phone Number [facility] [address] [place] [address], [place] [phone] [facility] [address] [place] [address], [place] [phone] * (ABNORMAL) POCT glucose (01/22/2022 12:07 PM ERP CONSULTANT) GLUCOSE POC 68(L) 70 - 99 MG/DL 01/22/2022 12:22 PM ERP CONSULTANT [facility] 01/22/2022 12:0 7 PM ERP CONSULTANT us Evan P Rolens DPM POCT ORDERABLES - DEVICE Fin al Result [facility] [address] [place] [address], documented in this encounter Visit Diagnoses Diagnosis [...] rate 3 mL/min. Given 01/22/2022 12:21 PM ERP CONSULTANT 12.5 g dextrose 50 % solution 1 dose, Starting on Tue01/22/22 at 1212, Until Tue01/22/22 at 1221, Created by cabinet override lactated ringers infusion at 10 mL/hr, Intravenous, Continuous, Starting on Tue01/22/22 at 1145, Until Tue01/22/22 at 1657, Infuse at TKO rate, Pre-Op Restarted 01/22/2022 1:44 PM ERP CONSULTANT Continued by Anesthesia 01/22/2022 1:01 PM ERP CONSULTANT 10 mL/hr New Bag 01/22/2022 12:20 PM ERP CONSULTANT 10 mL/hr documented in this encounter Active and Recently Administered Medications Times are shown in ERP CONSULTANT. Scheduled Medication Order 01/20/2022 01/21/2022 01/22/2022 ceFAZolin [...] DPM) documented in this encounter Care Teams Assistant Professor Sculpture Relationship Specialty Start Date End Date Dominic Recinos MD [address] [place] [address] PCP - General INTERNAL MEDICINE 09/18/21 Bonilla Anton MD [address] [place] [address], [place] [address] Consulting Physician INTERNAL MEDICINE 10/16/21 Celso Haro DO [address] [place] [address] INTERNAL MEDICINE 10/16/21 Evan Olivarez DPM [address] [place] [address] Consulting Physician PODIATRY/SURGERY 12/07/21 12/07/22 documented as of this encounter
--- OUTSIDE RECORDS SUMMARY | 2024-02-23 13:31 | XMS_ITS | Encounter Summary ---
Author Organization [facility] Address [address] [place] [address]. [place] [address] [place] [address] Care Team Providers Care Direct Support Specialist Name Role Phone Dominic Recinos MD Primary Care Provider [phone] Bonilla Anton MD Unavailable Celso Haro DO Unavailable Evan Olivarez DPM Unavailable [phone] Encounter Details Date Type Department Care Team (Late st Contact Info) Description 12/28/2021 8:41 AM CDT - 12/28/2021 11:59 PM CDT Hospital Encounter [facility] [address] [place] [address] Graciela Rodriguez, WAGE AND SALARY SPECIALIST [address] [place] [address] Discharge Disposition: Home or Self [...] applicator documented in this encounter Care Teams Direct Support Specialist Relationship Specialty Start Date End Date Dominic Recinos MD [address] [place] [address] PCP - General INTERNAL MEDICINE 09/18/21 Bonilla Anton MD [address] [place] [address] Consulting Physician INTERNAL MEDICINE 10/16/21 Celso Haro DO [address] [facility] [address] [place], [place] [id number] INTERNAL MEDICINE 10/16/21 Evan Olivarez DPM [address] [facility] [place] [address] Consulting Physician PODIATRY/SURGERY 12/07/21 12/07/22 documented as of this encounter
--- OUTSIDE RECORDS SUMMARY | 2024-02-23 13:31 | XMS_ITS | Encounter Summary ---
Author Organization [facility] Address [address] [place] [address]. [place], [place] [address] [place] [address] Care Team Providers Care [id number] Armor Crewman Name Role Phone Dominic Recinos MD Primary Care Provider [phone] Bonilla Anton MD Unavailable Celso Haro DO Unavailable Evan Olivarez DPM Unavailable [phone] Encounter Details Date Type Department Care Team (Late st Contact Info) Description 12/22/2021 9:33 AM CDT - 12/22/2021 11:59 PM CDT Hospital Encounter [facility] [address] [place] [address] Graciela Rodriguez, [facility] [address] [place] [address] Discharge Disposition: Home or Self [...] - 145 MMOL/L 12/22/2021 10:12 AM CDT [facility] POTASSIUM S/P/B 4.5 3.5 - 5.1 MMOL/L 12/22/2021 10:12 AM T [facility] CHLORIDE S/P/B 94(L) 98 - 107 MMOL/L 12/22/2021 10:[address] [facility] CO2 31.6 21.0 - 32.0 MMOL/L 12/22/2021 10:[address] [facility] GLUCOSE 96 70 - 99 MG/DL 12/22/2021 10:[address] [facility] Comment: FASTING GLUCOSE 100 TO 125 MG/DL IS CONSISTENT WITH IMPAIRED FASTING GLUCOSE. FASTING GLUCOSE >125 MG/DL IS CONSISTENT WITH DIABETES. RANDOM GLUCOSE >200 MG/DL WITH HYPERGLYCEMIC SYMPTOMS IS CONSISTENT WITH DIABETES. PER ADA GUIDELINES BUN 45(H) 6 - 24 MG/DL 12/22/2021 10:[address] [facility] CREATININE S/P/B 1.48(H) 0.70 - 1.30 MG/DL 12/22/2021 10:[address] [facility] CALCIUM S/P/B 8.9 8.4 - 10.5 MG/DL 12/22/2021 10:[address] [facility] ANION GAP 8.4 5.0 - 15.0 MMOL/L 12/22/2021 10:[address] [facility] OSMOLALITY (CALC) 289 MOSM/KG 022 10:[address] [facility] Comment:REFERENCE RANGE NOT ESTABLISHED GFR ESTIMATE 50(L) >89 ML/MIN/1. 73 M2 12/22/2021 10:[address] [facility] GFR NOTES GFR REFERENCE S: 12/22/2021 10:[address] [facility] Comment: THE ESTIMATED GFR [...] 12/22/2021 9:45 AM CDT Graciela Wiggins Michael [facility] Final Result [facility] [address] [place] [address], * (ABNORMAL) CBC W/DIFF AUTOMATED (12/22/2021 9:45 AM CDT) WBC 6.7 4.0 - 10.8 x10'3/uL 12/22/2021 9:54 AM CDT [facility] RBC 4.85 4.50 - 6.10 x10'6/uL 12/22/2021 9:54 AM CDT [facility] HGB 12.0(L) 13.0 - 18.0 G/DL 12/22/2021 9:54 AM CDT [facility] HCT 38.9 37.0 - 52.0 % 12/22/2021 9:54 AM CDT [facility] MCV 80.2 78.0 - 100.0 FL 12/22/2021 9:54 AM CDT [facility] MCH 24.7(L) 27.0 - 31.0 PG 12/22/2021 9:54 AM CDT [facility] MCHC 30.8(L) 33.0 - 36.0 G/DL 12/22/2021 9:54 AM CDT [facility] RDW 18.8(H) 11.5 - 14.5 % 12/22/2021 9:54 AM CDT [facility] PLT 212 150 - 350 x10'3/uL 12/22/2021 9:54 AM CDT [facility] MPV 9.8 7.4 - 10.4 FL 12/22/2021 9:54 AM CDT [facility] DIFFERENTIAL COMMENT NORMAL REFERENCE RANGE NOT ESTABLISHED FOR THE PROPORTIONAL LEUKOCYTE DIFFERENTIAL. 12/22/2021 9:54 AM CDT [facility] SEG NEUTROPHILS 54.3 % 9:54 AM CDT [facility] LYMPHOCYTES 30.3 % 12/22/2021 9:54 AM CDT [facility] MONOCYTES 13.1 % 12/22/2021 9:54 AM CDT [facility] EOSINOPHILS 0.9 % 12/22/2021 9:54 AM CDT [facility] BASOPHILS 0.7 % 12/22/2021 9:54 AM CDT [facility] IMMATURE GRANS % 0.7 % 12/23/19 9:54 AM CDT [facility] NRBC 0.0 % 12/22/2021 9:54 AM CDT [facility] ABS. NEUTROPHILS 3.66 1.60 - 8.30 x10'3/uL 12/22/2021 9:54 AM CDT [facility] ABS. LYMPHOCYTES 2.04 0.80 - 4.70 x10'3/uL 12/22/2021 9:54 AM CDT [facility] ABS. MONOCYTES 0.88 0.00 - 1.50 x10'3/uL 12/22/2021 9:54 AM CDT [facility] ABS. EOSINOPHILS 0.06 0.00 - 0.40 x10'3/uL 12/22/2021 9:54 AM CDT [facility] ABS. BASOPHILS 0.05 0.00 - 0.20 x10'3/uL 12/22/2021 9:54 AM CDT [facility] ABS. IMMATURE GRANULOCYTES 0.05(H) 0.00 - 0.03 x10'3/uL 12/22/2021 9:54 AM CDT [facility] ABS. NUCLEATED RBC'S 0.00 0.00 x10'3/uL 12/22/2021 9:54 AM CDT [facility] 12/22/2021 9:45 AM CDT Graciela Rodriguez ANIMAL CARE SPECIALIST LABORATORY Final Result [facility] [address] [place] [address], documented in this encounter Visit Diagnoses Diagnosis Ulcer of left lower extremity with fat layer exposed (CMS/HCC HHS/HCC) documented in this encounter Care Teams M60A2 Armor Crewman Relationship Specialty Start Date End Date Dominic Recinos MD [address] [place] [address] PCP - General INTERNAL MEDICINE 09/18/21 Bonilla Anton MD [address] [place] [address] Consulting Physician INTERNAL MEDICINE 10/16/21 Celso Haro DO [address] [facility] [address] [place] [address] INTERNAL MEDICINE 10/16/21 Evan Olivarez DPM [address] [place] [address] Consulting Physician PODIATRY/SURGERY 12/07/21 12/07/22 documented as of this encounter
--- OUTSIDE RECORDS SUMMARY | 2024-02-23 13:31 | XMS_ITS | Encounter Summary ---
Author Organization [facility] Address [address] [place] [address]. [place], [place] [address] [place] [address] Care Team Providers Care Credit Historian Name Role Phone Dominic Recinos MD Primary Care Provider [phone] Bonilla Anton MD Unavailable Celso Haro DO Unavailable Evan Olivarez DPM Unavailable [phone] Encounter Details Date Type Department Care Team (Late st Contact Info) Description 01/25/2022 7:51 AM CENTRAL PROCESSING TECH - 01/25/2022 11:59 PM CENTRAL PROCESSING TECH Hospital Encounter [facility] [address] [place] [address] Graciela Rodriguez, FILLING ROOM OPERATOR [address] [place] [address] Discharge Disposition: Home or Self [...] Coronavirus/COVID-19? No / Unsure 02/15/2022 7:43 AM CENTRAL PROCESSING TECH documented as of this encounter Medications at [...] 8:57 AM Actions taken: MAR administration accepted RAL PROCESSING TECH documented in this encounter Plan of Treatment [...] exposed (CMS/HCC HHS/HCC) Given 01/25/2022 8:00 AM CENTRAL PROCESSING TECH 5 mLs documented in this encounter Care Teams Credit Historian Relationship Specialty Start Date End Date Dominic Recinos MD [address] [place] [address] PCP - General INTERNAL MEDICINE 09/18/21 Bonilla Anton MD [address] [place] [address] Consulting Physician INTERNAL MEDICINE 10/16/21 Celso Haro DO [address] [facility] [address] [place] [address] INTERNAL MEDICINE 10/16/21 Evan Olivarez DPM [address] [facility] [address] Consulting Physician PODIATRY/SURGERY 12/07/21 12/07/22 documented as of this encounter
--- OUTSIDE RECORDS SUMMARY | 2024-02-23 13:31 | XMS_ITS | Encounter Summary ---
Author Organization [facility] Address [facility]. [place], [place] [address] [place] [address] Care Team Providers Care Panel Saw Operator Name Role Phone Dominic Recinos MD Primary Care Provider [phone] Bonilla Anton MD Unavailable Celso Haro DO Unavailable Evan Olivarez DPM Unavailable [phone] Encounter Details Date Type Department Care Team [...] Coronavirus/COVID-19? No / Unsure 01/22/2022 11:14 AM ANNEALER HELPER documented as of this encounter Plan of Treatment Not on file documented as of this encounter Visit Diagnoses Not on filedocumented in this encounter Care Teams Panel Saw Operator Relationship Specialty Start Date End Date Dominic Recinos MD [address] [place] [address] PCP - General INTERNAL MEDICINE 09/18/21 Bonilla Anton MD [address] [place] [address] Consulting Physician INTERNAL MEDICINE 10/16/21 Celso Haro DO [address] [place], [place] [id number] INTERNAL MEDICINE 10/16/21 Evan Olivarez DPM [address] [place] [address] Consulting Physician PODIATRY/SURGERY 12/07/21 12/07/22 documented as of this encounter
--- OUTSIDE RECORDS SUMMARY | 2024-02-23 13:31 | XMS_ITS | Encounter Summary ---
Author Organization [facility] Address [address] [place] [address]. [place] [address] [place] [address] Care Team Providers Care Credit Office Manager Name Role Phone Dominic Recinos MD Primary Care Provider [phone] Bonilla Anton MD Unavailable Celso Haro DO Unavailable Evan Olivarez DPM Unavailable Encounter Details Date Type Department Care Team (Late st Contact Info) Description 12/22/2021 8:43 AM CDT - 12/22/2021 9:32 AM CDT Hospital Encounter [facility] [address] [place] [address] Graciela Rodriguez, LITIGATION COUNSEL [address] [place] [address] Discharge Disposition: Home or Self [...] - 145 MMOL/L 12/22/2021 10:12 AM CDT [facility] POTASSIUM S/P/B 4.5 3.5 - 5.1 MMOL/L 12/22/2021 10:12 AM CDT [facility] CHLORIDE S/P/B 94(L) 98 - 107 MMOL/L 12/22/2021 10:12 AM CDT [facility] CO2 31.6 21.0 - 32.0 MMOL/L 12/22/2021 10:12 AM CDT [facility] GLUCOSE 96 70 - 99 MG/DL 12/22/2021 10:12 AM CDT [facility] Comment: FASTING GLUCOSE 100 TO 125 MG/DL IS CONSISTENT WITH IMPAIRED FASTING GLUCOSE. FASTING GLUCOSE >125 MG/DL IS CONSISTENT WITH DIABETES. RANDOM GLUCOSE >200 MG/DL WITH HYPERGLYCEMIC SYMPTOMS IS CONSISTENT WITH DIABETES. PER ADA GUIDELINES BUN 45(H) 6 - 24 MG/DL 12/22/2021 10:12 AM CDT [facility] CREATININE S/P/B 1.48(H) 0.70 - 1.30 MG/DL 12/22/2021 10:12 AM CDT [facility] CALCIUM S/P/B 8.9 8.4 - 10.5 MG/DL 12/22/2021 10:12 AM CDT [facility] ANION GAP 8.4 5.0 - 15.0 MMOL/L 12/22/2021 10:12 AM CDT [facility] OSMOLALITY (CALC) 289 MOSM/KG 022 10:12 AM CDT [facility] Comment:REFERENCE RANGE NOT ESTABLISHED GFR ESTIMATE 50(L) >89 ML/MIN/1. 73 M2 12/22/2021 10:12 AM CDT [facility] GFR NOTES GFR REFERENCE S: 12/22/2021 10:12 AM CDT [facility] Comment: THE ESTIMATED GFR IS [...] AM CDT Grac[facility] Final Result [facility] [address] [place] [address], * (ABNORMAL) CBC W/DIFF AUTOMATED (12/22/2021 9:45 AM CDT) WBC 6.7 4.0 - 10.8 x10'3/uL 12/22/2021 9:54 AM CDT [facility] RBC 4.85 4.50 - 6.10 x10'6/uL 12/22/2021 9:54 AM CDT [facility] HGB 12.0(L) 13.0 - 18.0 G/DL 12/22/2021 9:54 AM CDT [facility] HCT 38.9 37.0 - 52.0 % 12/22/2021 9:54 AM CDT [facility] MCV 80.2 78.0 - 100.0 FL 12/22/2021 9:54 AM CDT [facility] MCH 24.7(L) 27.0 - 31.0 PG 12/22/2021 9:54 AM CDT [facility] MCHC 30.8(L) 33.0 - 36.0 G/DL 12/22/2021 9:54 AM CDT [facility] RDW 18.8(H) 11.5 - 14.5 % 12/22/2021 9:54 AM CDT [facility] PLT 212 150 - 350 x10'3/uL 12/22/2021 9:54 AM CDT [facility] MPV 9.8 7.4 - 10.4 FL 12/22/2021 9:54 AM CDT [facility] DIFFERENTIAL COMMENT NORMAL REFERENCE RANGE NOT ESTABLISHED FOR THE PROPORTIONAL LEUKOCYTE DIFFERENTIAL. 12/22/2021 9:54 AM CDT [facility] SEG NEUTROPHILS 54.3 % 9:54 AM CDT [facility] LYMPHOCYTES 30.3 % 12/22/2021 9:54 AM CDT [facility] MONOCYTES 13.1 % 12/22/2021 9:54 AM CDT [facility] EOSINOPHILS 0.9 % 12/22/2021 9:54 AM CDT [facility] BASOPHILS 0.7 % 12/22/2021 9:54 AM CDT [facility] IMMATURE GRANS % 0.7 % 12/23/19 9:54 AM CDT [facility] NRBC 0.0 % 12/22/2021 9:54 AM CDT [facility] ABS. NEUTROPHILS 3.66 1.60 - 8.30 x10'3/uL 12/22/2021 9:54 AM CDT [facility] ABS. LYMPHOCYTES 2.04 0.80 - 4.70 x10'3/uL 12/22/2021 9:54 AM CDT [facility] ABS. MONOCYTES 0.88 0.00 - 1.50 x10'3/uL 12/22/2021 9:54 AM CDT [facility] ABS. EOSINOPHILS 0.06 0.00 - 0.40 x10'3/uL 12/22/2021 9:54 AM CDT [facility] ABS. BASOPHILS 0.05 0.00 - 0.20 x10'3/uL 12/22/2021 9:54 AM CDT [facility] ABS. IMMATURE GRANULOCYTES 0.05(H) 0.00 - 0.03 x10'3/uL 12/22/2021 9:54 AM CDT [facility] ABS. NUCLEATED RBC'S 0.00 0.00 x10'3/uL 12/22/2021 9:54 AM CDT [facility] 12/22/2021 9:45 AM CDT Graciela Rodriguez [facility] Final Result [facility] [address] [place] [address], documented in this encounter Visit Diagnoses Diagnosis [...] applicator documented in this encounter Care Teams Credit Office Manager Relationship Specialty Start Date End Date Dominic Recinos MD [address] [place] [address] PCP - General INTERNAL MEDICINE 09/18/21 Bonilla Anton MD [address] [place] [address] Consulting Physician INTERNAL MEDICINE 10/16/21 Celso Haro DO [address] [place] [address] INTERNAL MEDICINE 10/16/21 Evan Olivarez DPM [address] [facility] [place] [address] Consulting Physician PODIATRY/SURGERY 12/07/21 12/07/22 documented as of this encounter
--- OUTSIDE RECORDS SUMMARY | 2024-02-23 13:31 | XMS_ITS | Encounter Summary ---
Author Organization [facility] Address Critical access hospital6 [facility]. [place], [place] [address] [place] [address] Care Team Providers Care Drafting Engineer Name Role Phone Dominic Recinos MD Primary Care Provider [phone] Bonilla Anton MD Unavailable Celso Haro DO Unavailable Evan Olivarez DPM Unavailable [phone] Encounter Details Date Type Department Care Team [...] Coronavirus/COVID-19? No / Unsure 02/01/2022 7:57 AM SOFTBALL WINDER documented as of this encounter Plan of Treatment Not on file documented as of this encounter Visit Diagnoses Not on filedocumented in this encounter Care Teams Drafting Engineer Relationship Specialty Start Date End Date Dominic Recinos MD [address] [place] [address] PCP - General INTERNAL MEDICINE 09/18/21 Bonilla Anton MD [address] [place] [address] Consulting Physician INTERNAL MEDICINE 10/16/21 Celso Haro DO [address] [place], [place] [id number] INTERNAL MEDICINE 10/16/21 Evan Olivarez DPM [address] [place] [address] Consulting Physician PODIATRY/SURGERY 12/07/21 12/07/22 documented as of this encounter
--- OUTSIDE RECORDS SUMMARY | 2024-02-23 13:31 | XMS_ITS | Encounter Summary ---
Author Organization [facility] Address [address] [place] [address]. [place], [place] [address] [place] [address] Care Team Providers Care Livestock Sales Representative Name Role Phone Dominic Recinos MD Primary Care Provider [phone] Bonilla Anton MD Unavailable Celso Haro DO Unavailable Evan Olivarez DPM Unavailable [phone] Reason for Visit * Reason Comments Lab (SCAN) Encounter Details Date Type Department Care Team (Late st Contact Info) Description 01/19/2022 Scan [facility] [address] [place] [address] Scanned, Documents Lab (SCAN) Social [...] Coronavirus/COVID-19? No / Unsure 01/25/2022 7:50 AM CABIN OUTFITTER documented as of this encounter Plan of Treatment Not on file documented as of this encounter Procedures Procedure Name Priority Date/Time Associated Diagnosis Comments OUTSIDE LAB (SCAN ORDER) Routine 01/19/2022 12:00 AM CABIN OUTFITTER documented in this encounter Results * OUTSIDE LAB (SCAN) (01/19/2022 12:00 AM CABIN OUTFITTER) 01/19/2022 us Documents Scanned SCANNING Final Result [facility] documented in this encounter Visit Diagnoses Not on filedocumented in this encounter Care Teams Livestock Sales Representative Relationship Specialty Start Date End Date Dominic Recinos MD [address] [place] [address] PCP - General INTERNAL MEDICINE 09/18/21 Bonilla Anton MD [address] [place] [address] Consulting Physician INTERNAL MEDICINE 10/16/21 Celso Haro DO [address] [facility] [address] [place], [place] [id number] INTERNAL MEDICINE 10/16/21 Evan Olivarez DPM [address] [place] [address] Consulting Physician PODIATRY/SURGERY 12/07/21 12/07/22 documented as of this encounter
--- OUTSIDE RECORDS SUMMARY | 2024-02-23 13:31 | XMS_ITS | Encounter Summary ---
Author Organization [facility] Address [address] [place] [address]. [place] [address] [place] [address] Care Team Providers Care Medical Administrative Specialist Name Role Phone Dominic Recinos MD Primary Care Provider [phone] Bonilla Anton MD Unavailable Celso Haro DO Unavailable Evan Olivarez DPM Unavailable [phone] Encounter Details Date Type Department Care Team (Late st Contact Info) Description 12/14/2021 8:51 AM CDT - 12/14/2021 11:59 PM CDT Hospital Encounter [facility] [address] [place] [address] Graciela Rodriguez, ADVERTISEMENT COMPOSITOR [address] [place] [address] Discharge Disposition: Home or Self [...] left lower extremity with fat layer exposed ([facility]/HCC HHS/HCC) documented in this encounter Results * CULTURE, WOUND, W/GRAM STAIN (12/14/2021 9:20 AM CDT) SPEC DESCRIPTION HEEL, LEFT 12/14/2021 10:14 AM CDT [facility] SPECIAL REQUESTS NO SPECIAL REQUEST 12/14/2021 10:14 AM CDT [facility] GRAM STAIN RESULT WBC'S SEEN 12/14/2021 1:02 PM CDT [facility] GRAM STAIN RESULT RARE GRAM POSITIVE COCCI 12/14/2021 1:02 PM CDT [facility] GRAM STAIN RESULT RARE GRAM NEGATIVE RODS 12/14/2021 1:02 PM CDT [facility] CULTURE RESULT FEW PSEUDOMONAS AERUGINOSA 12/17/2021 10:37 AM CDT [facility] CULTURE RESULT FEW ENTEROCOCCUS FAECALIS 12/17/2021 10:37 AM CDT [facility] CULTURE RESULT FEW STAPHYLOCOCCUS , COAGULASE NEGATIVE 12/17/2021 10:37 AM CDT [facility] CULTURE RESULT FEW DIPHTHEROIDS 12/17/2021 10:37 AM CDT [facility] LEFT HEEL STRUCTURE / Unknown 12/14/2021 [...] VANCOMYCIN SADIA (VITEK) Sensitive us Graciela Rodriguez ADVERTISEMENT COMPOSITOR MICROBIOLOGY - GENERAL ORDERAB LES Final Result [facility] [address] [place] [address], [place] [phone] [facility] [address] [place] [address], documented in this encounter Visit Diagnoses Diagnosis [...] mLs documented in this encounter Care Teams Medical Administrative Specialist Relationship Specialty Start Date End Date Dominic Recinos MD [address] [place] [address] PCP - General INTERNAL MEDICINE 09/18/21 Bonilla Anton MD [address] [place] [address] Consulting Physician INTERNAL MEDICINE 10/16/21 Celso Haro DO [address] [facility] [address] [place] [address] INTERNAL MEDICINE 10/16/21 Evan Olivarez DPM [address] [place] [address] [place] [address] Consulting Physician PODIATRY/SURGERY 12/07/21 12/07/22 documented as of this encounter
--- OUTSIDE RECORDS SUMMARY | 2024-02-23 13:31 | XMS_ITS | Encounter Summary ---
Author Organization [facility] Address [facility]. [place], [place] [address] [place] [address] Care Team Providers Care Assembler Wire Mesh Gate Name Role Phone Dominic Recinos MD Primary Care Provider [phone] Bonilla Anton MD Unavailable Celso Haro DO Unavailable Evan Olivarez DPM Unavailable [phone] Encounter Details Date Type Department Care Team [...] on filedocumented in this encounter Care Teams Assembler Wire Mesh Gate Relationship Specialty Start Date End Date Dominic Recinos MD [address] [place] [address] PCP - General INTERNAL MEDICINE 09/18/21 Bonilla Anton MD [address] [place] [address] Consulting Physician INTERNAL MEDICINE 10/16/21 Celso Haro DO [address] [place] [address] INTERNAL MEDICINE 10/16/21 Evan Olivarez DPM [address] [place] [address] Consulting Physician PODIATRY/SURGERY 12/07/21 12/07/22 documented as of this encounter
--- OUTSIDE RECORDS SUMMARY | 2024-02-23 13:31 | XMS_ITS | Encounter Summary ---
Author Organization [facility] Address [address] [place] [address]. [place] [address] [place] [address] Care Team Providers Care Well Puller Name Role Phone Dominic Recinos MD Primary Care Provider [phone] Bonilla Anton MD Unavailable Celso Haro DO Unavailable Evan Olivarez DPM Unavailable [phone] Reason for Visit * Auth/Cert (Routine) Specialty Diagnoses / Procedures Referred By Contac t Referred To Contact Diagnoses NON-PRESSURE ULCER LEFT HEEL Procedures DEEP DEBRIDEMENT OF ULCER LEFT HEEL Evan Olivarez, DPM [address] [place] [address] Phone: tel: fax: Referral ID Status Reason Start Date Expiration Date Visits Re quested Visits Authorized [id number] 1 1 Encounter Details Date Type Department Care Team (Late st Contact Info) Description 01/22/2022 1:00 PM DUDE RANCH MANAGER - 01/22/2022 2:10 PM DUDE RANCH MANAGER Surgery [place] [address] [place] [address] Evan Olivarez, DPM [address] [place] [address] DEEP DEBRIDEMENT OF ULCER LEFT [...] Coronavirus/COVID-19? No / Unsure 01/22/2022 11:14 AM DUDE RANCH MANAGER documented as of this encounter Last Filed Vital Signs Vital Sign Reading Time Taken Comments Blood Pressure 107/56 01/22/2022 2:07 PM DUDE RANCH MANAGER Pulse 62 01/22/2022 2:07 PM DUDE RANCH MANAGER Temperature 35.6 ??C (96.1 ??F) 01/22/2022 2:07 PM CS T Respiratory Rate 16 01/22/2022 2:07 PM DUDE RANCH MANAGER Oxygen Saturation 99% 01/22/2022 2:07 PM DUDE RANCH MANAGER Inhaled Oxygen Concentration - - Weight 108.9 kg (240 lb) 01/19/2022 1:01 PM DUDE RANCH MANAGER Height 172.7 cm (5' 8 ) 01/19/2022 1:01 PM DUDE RANCH MANAGER Body Mass Index 36.49 01/19/2022 1:01 PM DUDE RANCH MANAGER documented in this encounter Discharge Instructions * Attachments The following attachments cannot be sent through Care Everywhere. * Surgical Wound Discharge Instructions (Peruvian) * Moderate Sedation in Adults Discharge Instructions (Peruvian) * Nerve Blocks (Peruvian) * Debridement of a Wound or Burn Discharge Instructions (Peruvian) documented in this encounter Medications at Time [...] of this encounter H&P Notes * Evan Olivaerz DPM - 01/22/2022 12:54 PM CST HISTORY [...] during recuperation were discussed with the patient/family/personal inside outside sales representative. Reasonable alternatives to the patient's proposed procedure/surgery including benefits, risks, and side effects related to the alternatives and the risks related to not receiving the proposed care were also discussed with the patient/family/personal inside outside sales representative. Questions were answered and the patient/family/personal inside outside sales representative verbalized understanding and desires to proceed. RANCH MANAGER Source Note - [facility] - 01/22/2022 12:00 AM DUDE RANCH MANAGER documented in this encounter OR Notes * Brief Op Note - Evan Olivarez DPM - 01/22/2022 1:49 PM CST [facility] Brief Op HSHSDEEP DEBRIDEMENT OF ULCER LEFT HEEL Procedure Note Diego Marquez Sr. 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 #[id number] /BRIANA RANCH MANAGER documented in this encounter Plan of Treatment Not on file documented as of this encounter Procedures Procedure Name Priority Date/Time Associated Diagnosis Comments POCT GLUCOSE - BAGLEY DOCKED DEVICE Routine 01/22/2022 2:01 PM DUDE RANCH MANAGER CULTURE, TB/AFB W/ STAIN Routine 01/22/2022 1:25 PM DUDE RANCH MANAGER CULTURE, FUNGUS W/ STAIN Routine 01/22/2022 1:25 PM DUDE RANCH MANAGER HC BODY FLUID CULTURE Routine 01/22/2022 1:25 PM DUDE RANCH MANAGER CULTURE, ANAEROBIC Routine 01/22/2022 1: 25 PM DUDE RANCH MANAGER DEBRIDEMENT FOOT 01/22/2022 12:5 0 PM DUDE RANCH MANAGER NON-PRESSURE ULCER LEFT HEEL Case Notes PULSE LAVAGE WITH GENT. POCT GLUCOSE - BAGLEY DOCKED DEVICE Routine 01/22/2022 12:07 PM DUDE RANCH MANAGER documented in this encounter Results * POCT glucose (01/22/2022 2:01 PM DUDE RANCH MANAGER) GLUCOSE POC 72 70 - 99 MG/DL 01/22/2022 2:51 PM DUDE RANCH MANAGER [facility] 01/22/2022 2:01 PM DUDE RANCH MANAGER us Evan Olivarez DPM POCT ORDERABLES - DEVICE Fin al Result [facility] [address] [place] [address], * CULTURE, TB/AFB W/ STAIN (01/22/2022 1:25 PM DUDE RANCH MANAGER) SPECIMEN SOURCE LEFT HEEL WOUND 01/22/2022 2:20 PM DUDE RANCH MANAGER [facility] RESULT REPORT 02/18/2022 3:56 PM DUDE RANCH MANAGER [employer] COLT GARCIA Comment: Mycobacteria, Culture, with Fluorochrome Smear Mycobacteria Stn,AF,Fluor SOURCE : LEFT HEEL WOUND Result/Comment: No acid-fast bacilli seen. Mycobacteria smear result should be used as an adjunct to culture in diagnosing mycobacterial disease (e.g. tuberculosis). If intended, please ensure an order for Mycobacteria (Yrbq-Rmsk-Lxniyib) culture has also been submitted. Acid Fast Culture SOURCE : LEFT HEEL WOUND Result/Comment: No Mycobacterium species isolated after 6 weeks incubation. ? Mycobacterial probe for TB complex not indicated ? Mycobacterial identification not indicated Test Performed by [employer] [facility] [place], [address] [place] [address] Raymond Reyna M.D., Ph.D., Director of Laboratories , [facility] [id number] REPORT STATUS FINAL 03/17/2022 2:14 PM DUDE RANCH MANAGER [employer] RICHADR GARCIA WOUND LEFT HEEL STRUCTURE / Unknown 01/22/2022 1:25 PM DUDE RANCH MANAGER Evan Olivarez DPM MICROBIOLOGY - GENERAL ORDER LIDIA Final Result [facility] [address], [place] [phone] [facility] [place] [address], [place] [phone] * (ABNORMAL) CULTURE, FUNGUS W/ STAIN (01/22/2022 1:25 PM DUDE RANCH MANAGER) SPECIMEN SOURCE LEFT HEEL WOUND 01/22/2022 2:19 PM DUDE RANCH MANAGER [facility] Comment:CALLED TO BRANDIE OLIVAREZ OFFICE [phone] COMMENT REPORT(AA ) 02/02/2022 12:59 PM DUDE RANCH MANAGER [employer] KIARA WALLS Comment: FUNGUS CULTURE AND SMEAR Fungal Stain SOURCE : LEFT HEEL WOUND Result/Comment: No fungus seen on microscopic examination. Fungus Culture SOURCE : LEFT HEEL WOUND Result/Comment: Identification performed by mass spectrometry. ?? ORGANISM(S) ISOLATED 1. ??Light growth of Maggy parapsilosis CRITICAL VALUE REPORT Test Performed by [employer], [employer] [facility], [address] [place] [address] Raymond Reyna M.D., Ph.D., Director of Laboratories , [facility] [id number] REPORT STATUS FINAL 02/23/2022 5:19 PM DUDE RANCH MANAGER [employer] JAZMÍNJUVENTINO WALLS WOUND LEFT HEEL STRUCTURE / Unknown 01/22/2022 1:25 PM DUDE RANCH MANAGER Evan Olivarez DPM MICROBIOLOGY - GENERAL ORDER LIDIA Final Result [employer] [address] , [place] [phone] [facility] [place] [address], [place] [phone] * CULTURE, WOUND, W/GRAM STAIN (01/22/2022 1:25 PM DUDE RANCH MANAGER) SPEC DESCRIPTION HEEL, LEFT 01/22/2022 2:04 PM DUDE RANCH MANAGER [facility] SPECIAL REQUESTS NO SPECIAL REQUEST 01/22/2022 2:04 PM DUDE RANCH MANAGER [facility] GRAM STAIN RESULT RARE GRAM POSITIVE COCCI 01/22/2022 5:24 PM DUDE RANCH MANAGER [facility] GRAM STAIN RESULT RARE GRAM POSITIVE RODS 01/22/2022 5:24 PM DUDE RANCH MANAGER [facility] CULTURE RESULT FEW PSEUDOMONAS AERUGINOSA 01/25/2022 2:[address] [facility] WOUND LEFT HEEL STRUCTURE / Unknown 01/22/2022 1:25 PM DUDE RANCH MANAGER Narrative Organism Antibiotic Method Susceptibility Pseudomonas aeruginosa [...] TOBRAMYCIN SADIA (KB) Sensitive us Evan Olivarez [facility] MICROBIOLOGY - GENERAL ORDER LIDIA Final Result Performing Organization Address [facility] de Phone Number [facility] [address] [place] [address], [place] [phone] [facility] [address] [place] [address], [place] [phone] * CULTURE, ANAEROBIC (01/22/2022 1:25 PM DUDE RANCH MANAGER) SPEC DESCRIPTION HEEL, LEFT 01/22/2022 2:04 PM DUDE RANCH MANAGER [facility] SPECIAL REQUESTS NO SPECIAL REQUEST 01/22/2022 2:04 PM DUDE RANCH MANAGER [facility] CULTURE RESULT NO ANAEROBES ISOLATED 01/27/2022 5:[address] [facility] WOUND LEFT HEEL STRUCTURE / Unknown 01/22/2022 1:25 PM DUDE RANCH MANAGER us Evan Olivarez DPM MICROBIOLOGY - GENERAL ORDER LIDIA Final Result Performing Organization Address [facility] Co de Phone Number [facility] [address] [place] [address], [place] [phone] [facility] [address] [place] [address], * (ABNORMAL) POCT glucose (01/22/2022 12:07 PM DUDE RANCH MANAGER) GLUCOSE POC 68(L) 70 - 99 MG/DL 01/22/2022 12:22 PM DUDE RANCH MANAGER [facility] 01/22/2022 12:0 7 PM DUDE RANCH MANAGER us Evan Olivarez DPM POCT ORDERABLES - DEVICE Mo walker Result [facility] [address] [employer] [place] [address], [place] [phone] documented in this encounter Visit Diagnoses Not on filedocumented in this encounter Administered Medications Inactive Administered Medications - up to 3 most recent administrations Medication Order MAR Action Action Date Dose Rate Site bacitracin ointment As needed, Starting on Tue01/22/22 at 1342, Until Tue01/22/22 at 1408, Intra-Op Given 01/22/2022 1:42 PM DUDE RANCH MANAGER 1 Application. Left Foot BUpivacaine (PF) (MARCAINE) 0.5 % injection As needed, Starting on Tue01/22/22 at 1315, Until Tue01/22/22 at 1352, Intra-Op Given 01/22/2022 1:15 PM DUDE RANCH MANAGER 7.5 mLs Left Foot dextrose 50 % solution 12.5 g 12.5 g, Intravenous, As needed, Low blood sugar, 1 dose, Starting on Tue01/22/22 at 1214, Until Tue01/22/22 at 1221, Administration rate 3 mL/min. Given 01/22/2022 12:21 PM DUDE RANCH MANAGER 12.5 g dextrose 50 % solution 1 dose, Starting on Tue01/22/22 at 1212, Until Tue01/22/22 at 1221, Created by cabinet override gentamicin (GARAMYCIN) injection As needed, Starting on Tue01/22/22 at 1330, Until Tue01/22/22 at 1352, Intra-Op Given 01/22/2022 1:30 PM DUDE RANCH MANAGER 480 mg Left Foot lactated ringers infusion at 10 mL/hr, Intravenous, Continuous, Starting on Tue01/22/22 at 1145, Until Tue01/22/22 at 1657, Infuse at TKO rate, Pre-Op Restarted 01/22/2022 1:44 PM DUDE RANCH MANAGER Continued by Anesthesia 01/22/2022 1:01 PM DUDE RANCH MANAGER 10 mL/hr New Bag 01/22/2022 12:20 PM DUDE RANCH MANAGER 10 mL/hr lidocaine (XYLOCAINE) 1 % injection SOLN As needed, Starting on Tue01/22/22 at 1315, Until Tue01/22/22 at 1352, Intra-Op Given 01/22/2022 1:15 PM DUDE RANCH MANAGER 7.5 mLs Left Foot documented in this encounter Active and Recently Administered Medications Times are shown in DUDE RANCH MANAGER. Scheduled Medication Order 01/20/2022 01/21/2022 01/22/2022 ceFAZolin [...] DPM) documented in this encounter Care Teams Well Puller Relationship Specialty Start Date End Date Dominic Recinos MD [address] [place] [phone] PCP - General INTERNAL MEDICINE 09/18/21 Bonilla Anton MD [address] [place] [address] Consulting Physician INTERNAL MEDICINE 10/16/21 Celso Haro DO [address] [facility] [address] [place] [address] INTERNAL MEDICINE 10/16/21 Evan Olivarez DPM [address] [place] [address] [place] [address] Consulting Physician PODIATRY/SURGERY 12/07/21 12/07/22 documented as of this encounter
--- OUTSIDE RECORDS SUMMARY | 2024-02-23 13:31 | XMS_ITS | Encounter Summary ---
Author Organization [facility] Address [facility]. [place], [place] [address] [place] [address] Care Team Providers Care Chief Administrative Officer Name Role Phone Dominic Recinos MD Primary Care Provider [phone] Bonilla Anton MD Unavailable Celso Haro DO Unavailable Evan Olivarez DPM Unavailable [phone] Encounter Details Date Type Department Care Team [...] on filedocumented in this encounter Care Teams Chief Administrative Officer Relationship Specialty Start Date End Date Dominic Recinos MD [address] [place] [address] PCP - General INTERNAL MEDICINE 09/18/21 Bonilla Anton MD [address] [place] [address] Consulting Physician INTERNAL MEDICINE 10/16/21 Celso Haro DO [address] [place] [address] INTERNAL MEDICINE 10/16/21 Evan Olivarez DPM [address] [place] [address] Consulting Physician PODIATRY/SURGERY 12/07/21 12/07/22 documented as of this encounter
--- OUTSIDE RECORDS SUMMARY | 2024-02-23 13:31 | XMS_ITS | Encounter Summary ---
Author Organization [facility] Address [address] [place] [address]. [place], [place] [address] [place] [address] Care Team Providers Care Design Technology Teacher Name Role Phone Dominic Recinos MD Primary Care Provider [phone] Bonilla Anton MD Unavailable Celso Haro DO Unavailable Evan Olivarez DPM Unavailable Encounter Details Date Type Department Care Team (Late st Contact Info) Description 01/18/2022 8:00 AM BANQUET DIRECTOR - 01/18/2022 11:59 PM BANQUET DIRECTOR Hospital Encounter [facility] [address] [place] [address] Graciela Rodriguez, COMMUNITY DIRECTOR [address] [place] [address] Discharge Disposition: Home or Self [...] Coronavirus/COVID-19? No / Unsure 01/18/2022 7:54 AM BANQUET DIRECTOR documented as of this encounter Medications [...] 11:48 AM Actions taken: MAR administration accepted UET DIRECTOR documented in this encounter Plan of [...] exposed (CMS/HCC HHS/HCC) Given 01/18/2022 8:10 AM BANQUET DIRECTOR 5 mLs documented in this encounter Care Teams Design Technology Teacher Relationship Specialty Start Date End Date Dominic Recinos MD [address] [place] [phone] PCP - General INTERNAL MEDICINE 09/18/21 Bonilla Antno MD [address] [place] [address] Consulting Physician INTERNAL MEDICINE 10/16/21 Celso Haro DO [address] [facility] [address] [place] [address] INTERNAL MEDICINE 10/16/21 Evan Olivarez DPM [address] [place] [address] Consulting Physician PODIATRY/SURGERY 12/07/21 12/07/22 documented as of this encounter
--- OUTSIDE RECORDS SUMMARY | 2024-02-23 13:31 | XMS_ITS | Encounter Summary ---
Author Organization [facility] Address [facility]. [place], [place] [address] [place] [address] Care Team Providers Care Lunch Counter Manager Name Role Phone Dominic Recinos MD Primary Care Provider [phone] Bonilla Anton MD Unavailable Celso Haro DO Unavailable Evan Olivarez DPM Unavailable [phone] Encounter Details Date Type Department Care Team [...] Coronavirus/COVID-19? No / Unsure 01/25/2022 7:50 AM NONPROFIT MANAGER documented as of this encounter Plan of Treatment Not on file documented as of this encounter Visit Diagnoses Not on filedocumented in this encounter Care Teams Lunch Counter Manager Relationship Specialty Start Date End Date Dominic Recinos MD [address] [place] [address] PCP - General INTERNAL MEDICINE 09/18/21 Bonilla Anton MD [address] [place] [address] Consulting Physician INTERNAL MEDICINE 10/16/21 Celso Haro DO [address] [place], [place] [id number] INTERNAL MEDICINE 10/16/21 Evan Olivarez DPM [address] [place] [address] Consulting Physician PODIATRY/SURGERY 12/07/21 12/07/22 documented as of this encounter
--- OUTSIDE RECORDS SUMMARY | 2024-02-23 13:31 | XMS_ITS | Encounter Summary ---
Author Organization [facility] Address [facility]6 [facility]. [place], [place] [address] [place] [address] Care Team Providers Care Director Of Gift Planning Name Role Phone Dominic Recinos MD Primary Care Provider [phone] Bonilla Anton MD Unavailable Celso Haro DO Unavailable Evan Olivarez DPM Unavailable [phone] Encounter Details Date Type Department Care Team [...] Coronavirus/COVID-19? No / Unsure 01/18/2022 7:54 AM SOAPING MACHINE BACK TENDER documented as of this encounter Plan of Treatment Not on file documented as of this encounter Visit Diagnoses Not on filedocumented in this encounter Care Teams Director Of Gift Planning Relationship Specialty Start Date End Date Dominic Recinos MD [address] [place] [address] PCP - General INTERNAL MEDICINE 09/18/21 Bonilla Anton MD [address] [place] [address] Consulting Physician INTERNAL MEDICINE 10/16/21 Celso Haro DO [address] [place], [place] [id number] INTERNAL MEDICINE 10/16/21 Evan Olivarez DPM [address] [place] [address] Consulting Physician PODIATRY/SURGERY 12/07/21 12/07/22 documented as of this encounter
--- OUTSIDE RECORDS SUMMARY | 2024-02-23 13:31 | XMS_ITS | Encounter Summary ---
Author Organization [facility] Address [facility]. [place], [place] [address] [place] [address] Care Team Providers Care Tumor Registrar Name Role Phone Dominic Recinos MD Primary Care Provider [phone] Bonilla Anton MD Unavailable Celso Haro DO Unavailable Evan Olivarez DPM Unavailable [phone] Encounter Details Date Type Department Care Team [...] Coronavirus/COVID-19? No / Unsure 01/19/2022 1:12 PM GLOBAL TRANSPORTATION MANAGER documented as of this encounter Plan of Treatment Not on file documented as of this encounter Visit Diagnoses Not on filedocumented in this encounter Care Teams Tumor Registrar Relationship Specialty Start Date End Date Dominic Recinos MD [address] [place] [address] PCP - General INTERNAL MEDICINE 09/18/21 Bonilla Anton MD [address] [place] [address] Consulting Physician INTERNAL MEDICINE 10/16/21 Celso Haro DO [address] [place], [place] [address] INTERNAL MEDICINE 10/16/21 Evan Olivarez DPM [address] [place] [address] Consulting Physician PODIATRY/SURGERY 12/07/21 12/07/22 documented as of this encounter
--- OUTSIDE RECORDS SUMMARY | 2024-02-23 13:31 | XMS_ITS | Encounter Summary ---
Author Organization [facility] Address [facility]6 [facility]. [place], [place] [address] [place] [address] Care Team Providers Care Muleser Name Role Phone Dominic Recinos MD Primary Care Provider [phone] Bonilla Anton MD Unavailable Celso Haro DO Unavailable Evan Olivarez DPM Unavailable [phone] Encounter Details Date Type Department Care Team [...] on filedocumented in this encounter Care Teams Muleser Relationship Specialty Start Date End Date Dominic Recinos MD [address] [place] [address] PCP - General INTERNAL MEDICINE 09/18/21 Bonilla Anton MD [address] [place] [address] Consulting Physician INTERNAL MEDICINE 10/16/21 Celso Haro DO [address] [place] [address] INTERNAL MEDICINE 10/16/21 Evan Olivarez DPM [address] [place] [address] Consulting Physician PODIATRY/SURGERY 12/07/21 12/07/22 documented as of this encounter
--- OUTSIDE RECORDS SUMMARY | 2024-02-23 13:31 | XMS_ITS | Encounter Summary ---
Author Organization [facility] Address [facility]6 [facility]. [place], [place] [address] [place] [address] Care Team Providers Care Container Washer Name Role Phone Dominic Recinos MD Primary Care Provider [phone] Bonilla Anton MD Unavailable Celso Haro DO Unavailable Evan Olivarez DPM Unavailable [phone] Encounter Details Date Type Department Care Team [...] on filedocumented in this encounter Care Teams Container Washer Relationship Specialty Start Date End Date Dominic Recinos MD [address] [place] [address] PCP - General INTERNAL MEDICINE 09/18/21 Bonilla Anton MD [address] [place] [address] Consulting Physician INTERNAL MEDICINE 10/16/21 Celso Haro DO [address] [place] [address] INTERNAL MEDICINE 10/16/21 Evan Olivarez DPM [address] [place] [address] Consulting Physician PODIATRY/SURGERY 12/07/21 12/07/22 documented as of this encounter
--- OUTSIDE RECORDS SUMMARY | 2024-02-23 13:31 | XMS_ITS | Encounter Summary ---
Author Organization [facility] Address [address] [place] [address]. [place] [address] [place] [address] Care Team Providers Care Boiler Washer Name Role Phone Dominic Recinos MD Primary Care Provider [phone] Bonilla Anton MD Unavailable Celso Haro DO Unavailable Evan Olivarez DPM Unavailable [phone] Reason for Visit * Auth/Cert (Routine) Specialty Diagnoses / Procedures Referred By Contac t Referred To Contact Diagnoses NON-PRESSURE ULCER LEFT HEEL Procedures DEEP DEBRIDEMENT OF ULCER LEFT HEEL Evan Olivarez, DPM [address] [facility] [place] [address] Phone: tel: fax: Referral ID Status Reason Start Date Expiration Date Visits Re quested Visits Authorized [id number] 1 1 Encounter Details Date Type Department Care Team (Late st Contact Info) Description 01/22/2022 1:01 PM SURFACE PLATE INSPECTOR Anesthesia Event [facility] [address] [place] [address] Diane Hauser, DENTISTRY PROFESSOR [address] [place] [address] [phone] (Work) Anesthesia Record Procedure Summary Procedure Name [...] Coronavirus/COVID-19? No / Unsure 01/22/2022 11:14 AM SURFACE PLATE INSPECTOR documented as of this encounter OR Notes [...] no known notable events for this encounter. ACE PLATE INSPECTOR * Anesthesia Preprocedure Evaluation - Diane Hauser [...] Albuterol-not had in a while Valium-not today Lznkbinbp-cawcvxdsb-yhv today HCTZ Insulin-long acting last night, short [...] He follows with an [facility] at [facility] and will defer to them. 4. Atrial [...] and risks discussed with healthcare power of trade mark attorney of whom consent was obtained.Consent of blood products not discussed. . ACE PLATE INSPECTOR ACE PLATE INSPECTOR ACE PLATE INSPECTOR documented in this encounter Plan of Treatment [...] TKO rate, Pre-Op Restarted 01/22/2022 1:44 PM SURFACE PLATE INSPECTOR Continued by Anesthesia 01/22/2022 1:01 PM SURFACE PLATE INSPECTOR 10 mL/hr New Bag 01/22/2022 12:20 PM SURFACE PLATE INSPECTOR 10 mL/hr propofol (DIPRIVAN) IV bolus Intravenous, Continuous PRN, Starting on Tue01/22/22 at 1309, Until Tue01/22/22 at 1355, Anesthesia Intra-Op Rate/Dose Change 01/22/2022 1:39 PM SURFACE PLATE INSPECTOR 10 mcg/kg/min 6.534 mL/hr Rate/Dose Change 01/22/2022 1:12 PM SURFACE PLATE INSPECTOR 15 mcg/kg/min 9.80 1 mL/hr New Bag 01/22/2022 1:09 PM SURFACE PLATE INSPECTOR 30 mcg/kg/min 19.602 mL/ hr documented in this encounter Care Teams Boiler Washer Relationship Specialty Start Date End Date Recinos, Rajneesh S, MD [address] [place] [address] PCP - General INTERNAL MEDICINE 09/18/21 Bonilla Anton MD [address] [place] [address] Consulting Physician INTERNAL MEDICINE 10/16/21 Celso Haro DO [address] [facility] [address] [place] [address] INTERNAL MEDICINE 10/16/21 Evan Olivarez DPM [address] [place] [address] Consulting Physician PODIATRY/SURGERY 12/07/21 12/07/22 documented as of this encounter
--- OUTSIDE RECORDS SUMMARY | 2024-02-23 13:31 | XMS_ITS | Encounter Summary ---
Author Organization [facility] Address [address] [place] [address]. [place], [place] [address] [place] [address] Care Team Providers Care Film Crew Member Name Role Phone Dominic Recinos MD Primary Care Provider [phone] Bonilla Anton MD Unavailable Celso Haro DO Unavailable Evan Olivarez DPM Unavailable [phone] Encounter Details Date Type Department Care Team (Late st Contact Info) Description 02/01/2022 7:58 AM DIRECTOR CORRECTIONAL AGENCY - 02/01/2022 11:59 PM DIRECTOR CORRECTIONAL AGENCY Hospital Encounter [facility] [address] [place] [address] Graciela Rodriguez, PERSONAL CHEF [address] [place] [address] Discharge Disposition: Home or Self [...] Coronavirus/COVID-19? No / Unsure 02/01/2022 7:57 AM DIRECTOR CORRECTIONAL AGENCY documented as of this encounter Medications at [...] 9:59 AM Actions taken: MAR administration accepted CTOR CORRECTIONAL AGENCY documented in this encounter Plan of Treatment [...] veins (CMS/HCC HHS/HCC) Given 02/01/2022 8:00 AM DIRECTOR CORRECTIONAL AGENCY 5 mLs documented in this encounter Care Teams Film Crew Member Relationship Specialty Start Date End Date Dominic Recinos MD [address] [place] [address] PCP - General INTERNAL MEDICINE 09/18/21 Bonilla Anton MD [address] [place] [address] Consulting Physician INTERNAL MEDICINE 10/16/21 Celso Haro DO [address] [place] [address] INTERNAL MEDICINE 10/16/21 Evan Olivarez DPM [address] [facility] [place] [address] Consulting Physician PODIATRY/SURGERY 12/07/21 12/07/22 documented as of this encounter
--- OUTSIDE RECORDS SUMMARY | 2024-02-23 13:31 | XMS_ITS | Encounter Summary ---
Author Organization [facility] Address [address] [place] [address]. [place] [address] [place] [address] Care Team Providers Care Book Retailer Name Role Phone Dominic Recinos MD Primary Care Provider [phone] Bonilla Anton MD Unavailable Celso Haro DO Unavailable Evna Olivarez DPM Unavailable [phone] Encounter Details Date Type Department Care Team (Late st Contact Info) Description 01/04/2022 8:37 AM CDT - 01/04/2022 11:59 PM CDT Hospital Encounter [facility] [address] [place] [address] Graciela Rodriguez, DRUM STRAIGHTENER [address] [place] [address] Discharge Disposition: Home or Self [...] applicator documented in this encounter Care Teams Book Retailer Relationship Specialty Start Date End Date Dominic Recinos MD [address] [place] [address] PCP - General INTERNAL MEDICINE 09/18/21 Bonilla Anton MD [address] [place] [address] Consulting Physician INTERNAL MEDICINE 10/16/21 Celso Haro DO [address] [place], [place] [address] INTERNAL MEDICINE 10/16/21 Evan Olivarez DPM [address] [facility] [place] [address] Consulting Physician PODIATRY/SURGERY 12/07/21 12/07/22 documented as of this encounter
--- OUTSIDE RECORDS SUMMARY | 2024-02-23 13:31 | XMS_ITS | Encounter Summary ---
Author Organization [facility] Address [facility]. [place], [place] [address] [place] [address] Care Team Providers Care Nurse Licensed Practical Name Role Phone Dominic Recinos MD Primary Care Provider [phone] Bonilla Anton MD Unavailable Celso Haro DO Unavailable Evan Olivarez DPM Unavailable [phone] Encounter Details Date Type Department Care Team [...] Coronavirus/COVID-19? No / Unsure 01/11/2022 8:21 AM QUARANTINE OFFICER documented as of this encounter Plan of Treatment Not on file documented as of this encounter Visit Diagnoses Not on filedocumented in this encounter Care Teams Nurse Licensed Practical Relationship Specialty Start Date End Date Dominic Recinos MD [address] [place] [address] PCP - General INTERNAL MEDICINE 09/18/21 Bonilla Anton MD [address] [place] [address] Consulting Physician INTERNAL MEDICINE 10/16/21 Celso Haro DO [address] [place], [place] [address] INTERNAL MEDICINE 10/16/21 Evan Olivarez DPM [address] [place] [address] Consulting Physician PODIATRY/SURGERY 12/07/21 12/07/22 documented as of this encounter
--- OUTSIDE RECORDS SUMMARY | 2024-02-23 13:32 | XMS_ITS | Encounter Summary ---
Author Organization [facility] Address [address] [place] [address]. [place], [place] [address] [place] [address] Care Team Providers Care Laboratory Development Technician Name Role Phone Dominic Recinos MD Primary Care Provider [phone] Bonilla Anton MD Unavailable Celso Haro DO [...] on filedocumented in this encounter Care Teams Laboratory Development Technician Relationship Specialty Start Date End Date Dominic Recinos MD [address] [place] [address] PCP - General INTERNAL MEDICINE 09/18/21 Bonilla Anton MD [address] [place] [address] Consulting Physician INTERNAL MEDICINE 10/16/21 Celso Haro DO [address] [facility] [address] [place] [address] INTERNAL MEDICINE 10/16/21 documented as of this encounter
--- OUTSIDE RECORDS SUMMARY | 2024-02-23 13:32 | XMS_ITS | Encounter Summary ---
Author Organization [facility] Address [address] [place] [address]. [place], [place] [address] [place] [address] Care Team Providers Care Sow Manager Name Role Phone Dominic Recinos MD Primary Care Provider [phone] Bonilla Anton MD Unavailable Celso Haro DO [...] on filedocumented in this encounter Care Teams Sow Manager Relationship Specialty Start Date End Date Dominic Recinos MD [address] [place] [address] PCP - General INTERNAL MEDICINE 09/18/21 Bonilla Anton MD [address] [place] [address] Consulting Physician INTERNAL MEDICINE 10/16/21 Celso Haro DO [address] [facility] [address] [place] [address] INTERNAL MEDICINE 10/16/21 documented as of this encounter
--- OUTSIDE RECORDS SUMMARY | 2024-02-23 13:32 | XMS_ITS | Encounter Summary ---
Author Organization [facility] Address [address] [place] [address]. [place], [place] [address] [place] [address] Care Team Providers Care High Density Press Laborer Name Role Phone Dominic Recinos MD Primary Care Provider [phone] Bonilla Anton MD Unavailable Celso Haro DO [...] on filedocumented in this encounter Care Teams High Density Press Laborer Relationship Specialty Start Date End Date Dominic Recinos MD [address] [place] [address] PCP - General INTERNAL MEDICINE 09/18/21 Bonilla Anton MD [address] [place] [address] Consulting Physician INTERNAL MEDICINE 10/16/21 Celso Haro DO [address] [facility] [address] [place] [address] INTERNAL MEDICINE 10/16/21 documented as of this encounter
--- OUTSIDE RECORDS SUMMARY | 2024-02-23 13:32 | XMS_ITS | Encounter Summary ---
Author Organization [facility] Address [facility]6 [facility]. [place], [place] [address] [place] [address] Care Team Providers Care Stenciler Name Role Phone Dominic Recinos MD Primary Care Provider [phone] Bonilla Anton MD Unavailable Celso Haro DO Unavailable Evan Olivarez DPM Unavailable [phone] Encounter Details Date Type Department Care Team [...] on filedocumented in this encounter Care Teams Stenciler Relationship Specialty Start Date End Date Dominic Recinos MD [address] [place] [address] PCP - General INTERNAL MEDICINE 09/18/21 Bonilla Anton MD [address] [place] [address] Consulting Physician INTERNAL MEDICINE 10/16/21 Celso Haro DO [address] [place] [address] INTERNAL MEDICINE 10/16/21 Evan Olivarez DPM [address] [place] [address] Consulting Physician PODIATRY/SURGERY 12/07/21 12/07/22 documented as of this encounter
--- OUTSIDE RECORDS SUMMARY | 2024-02-23 13:32 | XMS_ITS | Encounter Summary ---
Author Organization [facility] Address [address] [place] [address]. [place], [place] [address] [place] [address] Care Team Providers Care Chart Clerk Name Role Phone Dominic Recinos MD Primary Care Provider [phone] Bonilla Anton MD Unavailable Celso Haro DO Unavailable Encounter Details Date Type Department Care Team (Late st Contact Info) Description 11/16/2021 8:40 AM CDT - 11/16/2021 11:59 PM CDT Hospital Encounter [facility] [address] [place] [address] Graciela Rodriguez, [facility] [address] [place] [address] Discharge Disposition: Home or Self Care (Routine [...] mLs documented in this encounter Care Teams Chart Clerk Relationship Specialty Start Date End Date Dominic Recinos MD [address] [place] [address] PCP - General INTERNAL MEDICINE 09/18/21 Bonilla Anton MD [address] [place] [address] Consulting Physician INTERNAL MEDICINE 10/16/21 Celso Haro DO [address] [place] [address] INTERNAL MEDICINE 10/16/21 documented as of this encounter
--- OUTSIDE RECORDS SUMMARY | 2024-02-23 13:32 | XMS_ITS | Encounter Summary ---
Author Organization [facility] Address [address] [place] [address]. [place], [place] [address] [place] [address] Care Team Providers Care Chief Technical Officer Name Role Phone Dominic Recinos MD Primary Care Provider [phone] Bonilla Anton MD Unavailable Celso Haro DO [...] filedocumented in this encounter Care Teams Chief Technical Officer Relationship Specialty Start Date End Date Dominic Recinos MD [address] [place] [address] PCP - General INTERNAL MEDICINE 09/18/21 Bonilla Anton MD [address] [place] [address] Consulting Physician INTERNAL MEDICINE 10/16/21 Celso Haro DO [address] [facility] [address] [place] [address] INTERNAL MEDICINE 10/16/21 documented as of this encounter
--- OUTSIDE RECORDS SUMMARY | 2024-02-23 13:32 | XMS_ITS | Encounter Summary ---
Author Organization [facility] Address [address] [place] [address]. [place], [place] [address] [place] [address] Care Team Providers Care Security Attendant Name Role Phone Dominic Recinos MD Primary Care Provider [phone] Bonilla Anton MD Unavailable Celso Haro DO Unavailable Encounter Details Date Type Department Care Team (Late st Contact Info) Description 11/30/2021 8:52 AM CDT - 11/30/2021 11:59 PM CDT Hospital Encounter [facility] [address] [place] [address] Graciela Rodriguez, [facility] [address] [place] [address] Discharge Disposition: Home or Self Care (Routine [...] left lower extremity with fat layer exposed ([facility]/HCC HHS/HCC)- Primary documented in this encounter Administered [...] mLs documented in this encounter Care Teams Security Attendant Relationship Specialty Start Date End Date Dominic Recinos MD [address] [place] [address] PCP - General INTERNAL MEDICINE 09/18/21 Bonilla Anton MD [address] [place] [address] Consulting Physician INTERNAL MEDICINE 10/16/21 Celso Haro DO [address] [facility] [address] [place], [place] [address] INTERNAL MEDICINE 10/16/21 documented as of this encounter
--- OUTSIDE RECORDS SUMMARY | 2024-02-23 13:32 | XMS_ITS | Encounter Summary ---
Author Organization [facility] Address [address] [place] [address]. 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 ([facility]) Procedures OFFICE/OUTPT VISIT,NEW,LEVL III OFFICE/OUTPT VISIT,NEW,LEVL IV OFFICE/OUTPT VISIT,NEW,LEVL V OFFICE/OUTPT VISIT,EST,LEVL III OFFICE/OUTPT VISIT,EST,LEVL IV OFFICE/OUTPT VISIT,EST,LEVL V Graciela Rodriguez FNP [address] [place] [address] Phone: tel: fax: Evan Olivarez DPM [address] [place] [address] Phone: tel: fax: Referral ID Status Reason Start Date Expiration Date Visits Requested Visits Authorized [id number] Closed Specialty Services Surgery Outpatient 12/07/2021 12/07/2022 1 1 Encounter Details Date Type Department Care Team (Late st Contact Info) Description 12/07/2021 8:54 AM CDT - 12/07/2021 11:59 PM CDT Hospital Encounter 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 ([facility]) Type II or unspecified type diabetes [...] lower extremity with fat layer exposed ([facility]/HCC),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 ([facility]/HCC) Given 12/07/2021 9:15 AM CDT 5 mLs documented in this encounter Care Teams Rn Cvicu Relationship Specialty Start Date End Date Dominic Recinos MD [address] [place] [address] PCP - General INTERNAL MEDICINE 09/18/21 Bonilla Anton MD [address] [place] [address] Consulting Physician INTERNAL MEDICINE 10/16/21 Celso Haro DO [address] [facility] [address] [place] [address] INTERNAL MEDICINE 10/16/21 Evan Olivarez DPM [address] [place] [address] [place] [address] Consulting Physician PODIATRY/SURGERY 12/07/21 12/07/22 documented as of this encounter
--- OUTSIDE RECORDS SUMMARY | 2024-02-23 13:32 | XMS_ITS | Encounter Summary ---
Author Organization [facility] Address [facility] [place] [address] [place] [address] Care Team Providers Care Flower Buncher Or Picker Name Role Phone Dominic Recinos MD Primary Care Provider [phone] Bonilla Anton MD Unavailable Celso Haro DO Unavailable Evan Olivarez DPM Unavailable [phone] Encounter Details Date Type Department Care Team (Late st Contact Info) Description 12/08/2021 Orders Only [facility] [address] [place] [address] Bonilla Anton MD [address] [place], [place] [address] Social History Tobacco Use Types Packs/Day Years [...] on filedocumented in this encounter Care Teams Flower Buncher Or Picker Relationship Specialty Start Date End Date Dominic Recinos MD [address] [place] [address] PCP - General INTERNAL MEDICINE 09/18/21 Bonilla Anton MD [address] [place] [address] Consulting Physician INTERNAL MEDICINE 10/16/21 Celso Haro DO [address] [facility] [address] [place] [address] INTERNAL MEDICINE 10/16/21 Evan Olivarez DPM [address] [facility] [place] [address] Consulting Physician PODIATRY/SURGERY 12/07/21 12/07/22 documented as of this encounter
--- OUTSIDE RECORDS SUMMARY | 2024-02-23 13:32 | XMS_ITS | Encounter Summary ---
Author Organization [facility] Address [facility]6 [facility]. [place], [place] [address] [place] [address] Care Team Providers Care Measurer Name Role Phone Dominic Recinos MD Primary Care Provider [phone] Bonilla Anton MD Unavailable Celso Haro DO [...] on filedocumented in this encounter Care Teams Measurer Relationship Specialty Start Date End Date Dominic Recinos MD [address] [place] [address] PCP - General INTERNAL MEDICINE 09/18/21 Bonilla Anton MD [address] [place] [address] Consulting Physician INTERNAL MEDICINE 10/16/21 Celso Haro DO [address] [place] [address] INTERNAL MEDICINE 10/16/21 Evan Olivarez DPM [address] [place] [address] Consulting Physician PODIATRY/SURGERY 12/07/21 12/07/22 documented as of this encounter
--- OUTSIDE RECORDS SUMMARY | 2024-02-23 13:32 | XMS_ITS | Encounter Summary ---
Author Organization [facility] Address [address] [place] [address]. [place], [place] [address] [place] [address] Care Team Providers Care Machinist First Class Name Role Phone Dominic Recinos MD Primary Care Provider [phone] Bonilla Anton MD Unavailable Celso Haro DO Unavailable Encounter Details Date Type Department Care Team (Late st Contact Info) Description 11/23/2021 8:43 AM CDT - 11/23/2021 11:59 PM CDT Hospital Encounter [facility] [address] [place] [address] Graciela Rodriguez, [facility] [address] [place] [address] Discharge Disposition: Home or Self Care (Routine [...] mLs documented in this encounter Care Teams Machinist First Class Relationship Specialty Start Date End Date Dominic Recinos MD [address] [place] [address] PCP - General INTERNAL MEDICINE 09/18/21 Bonilla Anton MD [address] [place] [address] Consulting Physician INTERNAL MEDICINE 10/16/21 Celso Haro DO [address] [facility] [address] [place], [place] [address] INTERNAL MEDICINE 10/16/21 documented as of this encounter
--- OUTSIDE RECORDS SUMMARY | 2024-02-23 13:32 | XMS_ITS | Encounter Summary ---
Author Organization [facility] Address [address] [place] [address]. [place] [address] [place] [address] Care Team Providers Care Insole Taper Name Role Phone Nathan Nixon MD Primary Care Provider [phone] Bonilla Anton MD Unavailable Celso Haro DO Unavailable Evan Olivarez DPM Unavailable [phone] Reason for Visit * Reason Comments Follow Up PAD Encounter Details Date Type Department Care Team (Late st Contact Info) Description 12/08/2021 2:00 PM CDT Office Visit [facility] [place] [address] Bonilla Anton MD [address] [place] [address] Follow Up (PAD) Social History [...] He follows with an [facility] at [place] and will defer to them. 4. Atrial [...] exposed (CMS/HCC) 2. PAD (peripheral artery disease) ([facility]) Referring Provider: No ref. provider found PCP: NATHAN NIXON MD documented in this encounter Plan of Treatment Not on file documented as of this encounter Visit Diagnoses Diagnosis Ulcer of left lower extremity with fat layer exposed (CMS/HCC [facility]/HCC)- Primary PAD (peripheral artery disease) (CMS/HCC) Peripheral vascular disease, unspecified documented in this encounter Care Teams Insole Taper Relationship Specialty Start Date End Date Nathan Nixon MD [address] [place] [address] PCP - General INTERNAL MEDICINE 09/18/21 Bonilla Anton MD [address] [place] [address] Consulting Physician INTERNAL MEDICINE 10/16/21 Celso Haro DO [address] [facility] [address] [place] [address] INTERNAL MEDICINE 10/16/21 Evan Olivarez DPM [address] [facility] [place] [place] [address] Consulting Physician PODIATRY/SURGERY 12/07/21 12/07/22 documented as of this encounter
--- OUTSIDE RECORDS SUMMARY | 2024-02-23 13:32 | XMS_ITS | Encounter Summary ---
Author Organization [facility] Address [address] [place] [address]. [place], [place] [address] [place] [address] Care Team Providers Care Museum Specialist Name Role Phone Dominic Recinos MD Primary Care Provider [phone] Bonilla Anton MD Unavailable Celso Haro DO Unavailable Reason for Referral * Imaging (Routine) - Closed Specialty Diagnoses / Procedures Referred By Contac t Referred To Contact RADIOLOGY Diagnoses Hyperlipidemia, mixed PAD (peripheral artery disease) (CMS/HCC) Procedures CTA AORTO ILIOFEM RUNOFF Bonilla Anton MD [address] [place] [address] Phone: tel: fax: Referral ID Status Reason Start Date Expiration Date Visits Re quested Visits Authorized [id number] Closed 11/10/2021 12/11/2022 1 1 Reason for Visit * Imaging (Routine) - Closed Specialty Diagnoses / Procedures Referred By Contac t Referred To Contact RADIOLOGY Diagnoses Hyperlipidemia, mixed PAD (peripheral artery disease) (CMS/HCC) Procedures CTA AORTO ILIOFEM RUNOFF Bonilla Anotn MD [address] [place] [address] Phone: tel: fax: Referral ID Status Reason Start Date Expiration Date Visits Re quested Visits Authorized [id number] Closed 11/10/2021 12/11/2022 1 1 Encounter Details Date Type Department Care Team (Latest Contact Info) Description 11/19/2021 9:58 AM CDT - 11/19/2021 11:59 PM CDT Hospital Encounter [facility] [address] [place] [address] Bonilla Anton MD [address] [place] [address] Discharge Disposition: Home or Self Care (Routine [...] - 1.30 MG/DL 11/19/2021 10:37 AM CDT [facility] GFR ESTIMATE 71(L) >89 ML/MIN/1. 73 M2 11/19/2021 10:37 AM CDT [facility] GFR NOTES GFR REFERENCE S: 11/19/2021 10:37 AM CDT [facility] Comment: THE ESTIMATED GFR IS [...] CDT Bonilla Anton MD LABORATORY Final Result [facility] [address] [place] [address], documented in this encounter Visit Diagnoses Diagnosis [...] mLs documented in this encounter Care Teams Museum Specialist Relationship Specialty Start Date End Date Dominic Recinos MD [address] [place] [address] PCP - General INTERNAL MEDICINE 09/18/21 Bonilla Anton MD [address] [place] [address] Consulting Physician INTERNAL MEDICINE 10/16/21 Celso Haro DO [address] [facility] [address] [place] [address] INTERNAL MEDICINE 10/16/21 documented as of this encounter
--- OUTSIDE RECORDS SUMMARY | 2024-02-23 13:33 | XMS_ITS | Encounter Summary ---
Author Organization [facility] Address [address] [place] [address]. [place] [address] [place] [address] Care Team Providers Care Global Sourcing Manager Name Role Phone Unavailable Primary Care Provider Unavailabl e Encounter Details Date Type Department Care Team (Late st Contact Info) Description 04/29/2015 Abstract [facility] Medical [facility] Mult[facility]ial[facility] [address] [place] [address] Ruma Hayward MD [address] [facility] [address] [place] [address] Social History Tobacco Use Types Packs/Day Years [...]
--- OUTSIDE RECORDS SUMMARY | 2024-02-23 13:33 | XMS_ITS | Encounter Summary ---
Author Organization [facility] Address [address] [place] [address]. [place], [place] [id number] [place] [address] Care Team Providers Care Pet Caregiver Name Role Phone Dominic Recinos MD Primary Care Provider [phone] Reason for Referral * Imaging (Routine) - Closed Specialty Diagnoses / Procedures Referred By Contac t Referred To Contact RADIOLOGY Diagnoses Diabetic ulcer of left heel associated with type 2 diabetes mellitus, with necrosis of muscle (CMS/HCC HHS/HCC) Procedures [facility] ANSON LTD NGUYEN Graciela Rodriguez FNP [address] [place] [address] Phone: tel: fax: Referral ID Status Reason Start Date Expiration Date Visits Re quested Visits Authorized [id number] Closed 09/21/2021 10/22/2022 1 1 * Imaging (Routine) - Closed Specialty Diagnoses / Procedures Referred By Contac t Referred To Contact RADIOLOGY Diagnoses Diabetic ulcer of left heel associated with type 2 diabetes mellitus, with necrosis of muscle (CMS/HCC HHS/HCC) Procedures USV ART DUPLEX LOW NGUYEN Graciela Rodriguez FNP [address] [place] [address] Phone: tel: fax: Referral ID Status Reason Start Date Expiration Date Visits Re quested Visits Authorized [id number] Closed 09/21/2021 10/22/2022 1 1 Reason for Visit * Imaging (Routine) - Closed Specialty Diagnoses / Procedures Referred By Contac t Referred To Contact RADIOLOGY Diagnoses Diabetic ulcer of left heel associated with type 2 diabetes mellitus, with necrosis of muscle (CMS/HCC HHS/HCC) Procedures USV ART DUPLEX LOW NGUYEN Graciela Rodriguez, PERSONALIZED LIVING MANAGER [address] [place] [address] Phone: tel: fax: Referral ID Status Reason Start Date Expiration Date Visits Re quested Visits Authorized [id number] Closed 09/21/2021 10/22/2022 1 1 Encounter Details Date Type Department Care Team (Late st Contact Info) Description 10/08/2021 7:26 AM CDT - 10/08/2021 11:59 PM CDT Hospital Encounter [facility] [address] [place] [address] Graciela Rodriguez, PERSONALIZED LIVING MANAGER [address] [place] [address] Discharge Disposition: Home or Self [...] Laterality Modality Extremity Ultrasound us Graciela Rodriguez PERSONALIZED LIVING MANAGER US VASC Final Result * USV ART DUPLEX LOW NGUYEN (10/08/2021 9:13 AM CDT) Anatomical Region Laterality Modality Extremity Ultrasound us Graciela Rodriguez PERSONALIZED LIVING MANAGER US VASC Final Result documented in this encounter Visit Diagnoses Diagnosis Diabetic ulcer of left heel associated with type 2 diabetes mellitus, with necrosis of muscle (CMS/HCC HHS/HCC) documented in this encounter Care Teams Pet Caregiver Relationship Specialty Start Date End Date Dominic Recinos MD [address] [place] [address] PCP - General INTERNAL MEDICINE 09/18/21 documented as of this encounter
--- OUTSIDE RECORDS SUMMARY | 2024-02-23 13:33 | XMS_ITS | Encounter Summary ---
Author Organization [facility] Address [address] [place] [address]. [place] [address] [place] [address] Care Team Providers Care Flexo Press Operator Name Role Phone Dominic Recinos MD Primary Care Provider [phone] Bonilla Anton MD Unavailable Celso Haro DO Unavailable Encounter Details Date Type Department Care Team (Late st Contact Info) Description 11/04/2021 Abstract [facility] [address] [place] [phone] Abstract, Doc [facility] Social History Tobacco Use [...] on filedocumented in this encounter Care Teams Flexo Press Operator Relationship Specialty Start Date End Date Dominic Recinos MD [address] [place] [phone] PCP - General INTERNAL MEDICINE 09/18/21 Bonilla Anton MD [address] [place] [address] Consulting Physician INTERNAL MEDICINE 10/16/21 Celso Haro DO [address] [facility] [address] [place], [place] [id number] INTERNAL MEDICINE 10/16/21 documented as of this encounter
--- OUTSIDE RECORDS SUMMARY | 2024-02-23 13:33 | XMS_ITS | Encounter Summary ---
Author Organization [facility] Address [address] [place] [address]. [place], [place] [address] [place] [address] Care Team Providers Care Flyer Builder Name Role Phone Dominic Recinos MD Primary Care Provider [phone] Bonilla Anton MD Unavailable Celso Haro DO [...] on filedocumented in this encounter Care Teams Flyer Builder Relationship Specialty Start Date End Date Dominic Recinos MD [address] [place] [phone] PCP - General INTERNAL MEDICINE 09/18/21 oBnilla Anton MD [address] [place] [address] Consulting Physician INTERNAL MEDICINE 10/16/21 Celso Haro DO [address] [facility] [address] [place] [address] INTERNAL MEDICINE 10/16/21 documented as of this encounter
--- OUTSIDE RECORDS SUMMARY | 2024-02-23 13:33 | XMS_ITS | Encounter Summary ---
Author Organization [facility] Address [address] [place] [address]. [place] [address] [place] [address] Care Team Providers Care Sow Farm Technician Name Role Phone Dominic Recinos MD Primary Care Provider [phone] Encounter Details Date Type Department Care Team (Late st Contact Info) Description 09/28/2021 10:14 AM CDT - 09/28/2021 11:59 PM CDT Hospital Encounter [facility] [address] [place] [address] Graciela Rodriguez, [facility] [address] [place] [id number] Discharge Disposition: Home or Self Care (Routine [...] mLs documented in this encounter Care Teams Sow Farm Technician Relationship Specialty Start Date End Date Dominic Recinos MD [address] [place] [address] PCP - General INTERNAL MEDICINE 09/18/21 documented as of this encounter
--- OUTSIDE RECORDS SUMMARY | 2024-02-23 13:33 | XMS_ITS | Encounter Summary ---
Author Organization [facility] Address [address] [place] [address]. [place] [address] [place] [address] Care Team Providers Care Pearl Cutter Name Role Phone Dominic Recinos MD Primary Care Provider [phone] Encounter Details Date Type Department Care Team (Late st Contact Info) Description 10/12/2021 11:02 AM CDT - 10/12/2021 11:59 PM CDT Hospital Encounter [facility] [address] [place] [id number] Graciela Rodriguez, [facility] [address] [place] [address] Discharge Disposition: Home or Self Care (Routine [...] 8.8(H) <5.7 % 10/12/2021 11:59 AM CDT [facility] Comment: 5.7 TO 6.4% INCREASED RISK OF DIABETES > OR = 6.5% CONSISTENT WITH DIABETES PER ADA GUIDELINES ESTIMATED AVG GLUCOSE 206(H) 70 - 140 MG/DL 10/12/2021 11:59 AM CDT [facility] 10/12/2021 11:2 2 AM CD[address]aciela Rodriguez [facility] Final Result Performing Organization Address City/[facility]/ZIP Co de Phone Number [facility] [address] [place] [address], * (ABNORMAL) C-REACTIVE PROTEIN (10/12/2021 11:22 AM CDT) C-REACTIVE PROTEIN 3.31(H) <0.30 mg/dL 10/12/2021 12:03 PM CDT [facility] 10/12/2021 11:2 2 AM CDT Graciela Rodriguez [facility] Final Result Performing Organization Address [facility] Co de Phone Number [facility] [address] [place] [address], * (ABNORMAL) SED RATE, ERYTHROCYTE (ESR) (10/12/2021 11:22 AM CDT) ESR 35(H) 0 - 20 MM/HR 10/12/2021 4:10 PM CDT [facility] Comment:NOTE: ANEMIA, IF PRE SENT, MAY CAUSE AN ELEVATED SEDIMENTATION RATE. 10/12/2021 11:2 2 AM CDT Graciela Rodriguez [facility] Final Result Performing Organization Address [facility] Co de Phone Number [facility] [address] [place] [address], * (ABNORMAL) COMPREHENSIVE METABOLIC PANEL (10/12/2021 11:22 AM CDT) SODIUM S/P/B 134(L) 136 - 145 MMOL/L 10/12/2021 12:03 PM CDT [facility] POTASSIUM S/P/B 4.3 3.5 - 5.1 MMOL/L 10/12/2021 12:03 PM T [facility] CHLORIDE S/P/B 97(L) 98 - 107 MMOL/L 10/12/2021 12:03 PM T [facility] CO2 30.7 21.0 - 32.0 MMOL/L 10/12/2021 12:03 PM T [facility] GLUCOSE 164(H) 70 - 99 MG/DL 10/12/2021 12:03 PM T [facility] Comment: FASTING GLUCOSE 100 TO 125 MG/DL IS CONSISTENT WITH IMPAIRED FASTING GLUCOSE. FASTING GLUCOSE >125 MG/DL IS CONSISTENT WITH DIABETES. RANDOM GLUCOSE >200 MG/DL WITH HYPERGLYCEMIC SYMPTOMS IS CONSISTENT WITH DIABETES. PER ADA GUIDELINES BUN 15 6 - 24 MG/DL 10/12/2021 12:03 PM T [facility] CREATININE S/P/B 1.25 0.70 - 1.30 MG/DL 10/12/2021 12:03 PM T [facility] CALCIUM S/P/B 9.0 8.4 - 10.5 MG/DL 10/12/2021 12:03 PM [facility] BILIRUBIN TOTAL S/P/B 0.3 0.2 - 1.0 MG/DL 10/12/2021 12:03 PM T [facility] Comment: THIS ASSAY IS NOT RECOMMENDED FOR PATIENTS UNDERGOING TREATMENT WITH ELTROMBOPAG DUE TO THE POTENTIAL FOR FALSELY ELEVATED RESULTS. ALKALINE PHOSPHATASE S/P/B 88 45 - 115 U/L 10/12/2021 12:03 PM T [facility] AST 20 15 - 37 U/L 10/12/2021 12:03 PM T [facility] ALT 26 16 - 63 U/L 10/12/2021 12:03 PM T [facility] TOTAL PROTEIN S/P/B 7.1 6.4 - 8.2 G/DL 10/12/2021 12:03 PM T [facility] ALBUMIN S/P/B 3.3(L) 3.4 - 5.0 G/DL 10/12/2021 12:03 PM CDT [facility] ANION GAP 6.3 5.0 - 15.0 MMOL/L 10/12/2021 12:03 PM CDT [facility] OSMOLALITY (CALC) 282 MOSM/KG 022 12:03 PM CDT [facility] Comment:REFERENCE RANGE NOT ESTABLISHED GFR ESTIMATE 62(L) >89 ML/MIN/1. 73 M2 10/12/2021 12:03 PM CDT [facility] GFR NOTES GFR REFERENCE S: 10/12/2021 12:03 PM CDT [facility] Comment: THE ESTIMATED GFR IS CALCULATED [...] AM CDT Graciela [facility] LAB[facility] Final Result [facility] [address] [employer] [place] [address], * (ABNORMAL) CBC W/DIFF AUTOMATED (10/12/2021 11:22 AM CDT) WBC 11.3(H) 4.0 - 10.8 x10'3/uL 10/12/2021 11:44 AM CDT [facility] RBC 4.56 4.50 - 6.10 x10'6/uL 10/12/2021 11:44 AM CDT [facility] HGB 11.5(L) 13.0 - 18.0 G/DL 10/12/2021 11:44 AM CDT [facility] HCT 37.1 37.0 - 52.0 % 10/12/2021 11:44 AM CDT [facility] MCV 81.4 78.0 - 100.0 FL 10/12/2021 11:44 AM CDT [facility] MCH 25.2(L) 27.0 - 31.0 PG 10/12/2021 11:44 AM CDT [facility] MCHC 31.0(L) 33.0 - 36.0 G/DL 10/12/2021 11:44 AM CDT [facility] RDW 19.9(H) 11.5 - 14.5 % 10/12/2021 11:44 AM CDT [facility] PLT 168 150 - 350 x10'3/uL 10/12/2021 11:44 AM CDT [facility] MPV 9.6 7.4 - 10.4 FL 10/12/2021 11:44 AM CDT [facility] DIFFERENTIAL COMMENT NORMAL REFERENCE RANGE NOT ESTABLISHED FOR THE PROPORTIONAL LEUKOCYTE DIFFERENTIAL. 10/12/2021 11:44 AM CDT [facility] SEG NEUTROPHILS 73 % 12:53 PM CDT [facility] METAMYELOCYTES 3 % 10/12/2021 12:53 PM CDT [facility] LYMPHOCYTES 13 % 10/12/2021 12:53 PM CDT [facility] MONOCYTES 7 % 10/12/2021 12:53 PM CDT [facility] EOSINOPHILS 4 % 10/12/2021 12:53 PM CDT [facility] NRBC 1 /100 WBC 10/12/2021 12:53 PM CDT [facility] ABS. NEUTROPHILS CALCULATED 8.25 1.60 - 8.30 x10'3/uL 10/12/2021 12:53 PM CDT [facility] ABS. METAMYELOCYTES 0.34(H) 0.00 x10'3/uL 10/12/2021 12:53 PM CDT [facility] ABS. LYMPHOCYTES 1.47 0.80 - 4.70 x10'3/uL 10/12/2021 12:53 PM CDT [facility] ABS. MONOCYTES 0.79 0.10 - 1.50 x10'3/uL 10/12/2021 12:53 PM CDT [facility] ABS. EOSINOPHILS 0.45(H) 0.00 - 0.40 x10'3/uL 10/12/2021 12:53 PM CDT [facility] ABS. NUCLEATED RBC'S 0.11(H) 0.00 x10'3/uL 10/12/2021 12:53 PM CDT [facility] PLT MORPH. NORMAL 10/12/2021 12:53 PM CDT [facility] RBC MORPHOLOGY 1+ 10/12/2021 12:53 PM CDT [facility] Comment:ANISOCYTOSIS 10/12/2021 11:2 2 AM CDT Graciela Rodriguez [facility] Final Result [facility] [address] [employer] [place] [address], documented in this encounter Visit Diagnoses Diagnosis Diabetic ulcer of left heel associated with type 2 diabetes mellitus, with necrosis of muscle (CMS/HCC HHS/HCC) documented in this encounter Care Teams Pearl Cutter Relationship Specialty Start Date End Date Dominic Recinos MD [address] [place] [phone] PCP - General INTERNAL MEDICINE 09/18/21 documented as of this encounter
--- OUTSIDE RECORDS SUMMARY | 2024-02-23 13:33 | XMS_ITS | Encounter Summary ---
Author Organization [facility] Address [address] [place] [address]. [place] [address] [place] [address] Care Team Providers Care Television Repair Teacher Name Role Phone Dominic Recinos MD Primary Care Provider [phone] Reason for Referral * Imaging (Routine) - Closed Specialty Diagnoses / Procedures Referred By Contac t Referred To Contact RADIOLOGY Diagnoses Diabetic ulcer of left heel associated with type 2 diabetes mellitus, with necrosis of muscle ([facility]/HCC HHS/HCC) Procedures MRI ANKLE LT WWO CON Graciela Rodriguez FNP [address] [place] [address] Phone: tel: fax: Referral ID Status Reason Start Date Expiration Date Visits Re quested Visits Authorized [id number] Closed 10/12/2021 10/12/2022 1 1 Encounter Details Date Type Department Care Team (Late st Contact Info) Description 10/12/2021 9:46 AM CDT - 10/12/2021 11:01 AM CDT Hospital Encounter [facility] [address] [place] [address] Graciela Rodriguez FNP [address] [place] [address] Discharge Disposition: Home or Self Care (Routine [...] 10/12/2021 10:00 AM CDTEncounter addended by: Graciela Rodirguez NP on: 10/12/2021 11:33 AM Actions taken: [...] Jg Martinez MD, 11/17/2021 9:07 AM Gr[facility]iela M[facility]INE[facility] MRI Final Result * (ABNORMAL) HEMOGLOBIN, GLYCOSYLATED (10/12/2021 11:22 AM CDT) HGB A1C 8.8(H) <5.7 % 10/12/2021 11:59 AM CDT [facility] Comment: 5.7 TO 6.4% INCREASED RISK OF DIABETES > OR = 6.5% CONSISTENT WITH DIABETES PER ADA GUIDELINES ESTIMATED AVG GLUCOSE 206(H) 70 - 140 MG/DL 10/12/2021 11:59 AM CDT [facility] 10/12/2021 11:2 2 AM CDT Graciela Rodriguez [facility] Final Result [facility] [place] [address], * (ABNORMAL) C-REACTIVE PROTEIN (10/12/2021 11:22 AM CDT) C-REACTIVE PROTEIN 3.31(H) <0.30 mg/dL 10/12/2021 12:03 PM CDT [facility] 10/12/2021 11:2 2 AM CDT Graciela Rodriguez [facility] Final Result [facility] [address] [place] [address], * (ABNORMAL) SED RATE, ERYTHROCYTE (ESR) (10/12/2021 11:22 AM CDT) ESR 35(H) 0 - 20 MM/HR 10/12/2021 4:10 PM CDT [facility] Comment:NOTE: ANEMIA, IF PRE SENT, MAY CAUSE AN ELEVATED SEDIMENTATION RATE. 10/12/2021 11:2 2 AM CDT Graciela Rodriguez [facility] Final Result Performing Organization Address [facility] Co de Phone Number [facility] [address] [place] [address], [place] [phone] * (ABNORMAL) COMPREHENSIVE METABOLIC PANEL (10/12/2021 11:22 AM CDT) SODIUM S/P/B 134(L) 136 - 145 MMOL/L 10/12/2021 12:03 PM CDT [facility] POTASSIUM S/P/B 4.3 3.5 - 5.1 MMOL/L 10/12/2021 12:03 PM CDT [facility] CHLORIDE S/P/B 97(L) 98 - 107 MMOL/L 10/12/2021 12:03 PM CDT [facility] CO2 30.7 21.0 - 32.0 MMOL/L 10/12/2021 12:03 PM CDT [facility] GLUCOSE 164(H) 70 - 99 MG/DL 10/12/2021 12:03 PM CDT [facility] Comment: FASTING GLUCOSE 100 TO 125 MG/DL IS CONSISTENT WITH IMPAIRED FASTING GLUCOSE. FASTING GLUCOSE >125 MG/DL IS CONSISTENT WITH DIABETES. RANDOM GLUCOSE >200 MG/DL WITH HYPERGLYCEMIC SYMPTOMS IS CONSISTENT WITH DIABETES. PER ADA GUIDELINES BUN 15 6 - 24 MG/DL 10/12/2021 12:03 PM CDT [facility] CREATININE S/P/B 1.25 0.70 - 1.30 MG/DL 10/12/2021 12:03 PM [facility] CALCIUM S/P/B 9.0 8.4 - 10.5 MG/DL 10/12/2021 12:03 PM [facility] BILIRUBIN TOTAL S/P/B 0.3 0.2 - 1.0 MG/DL 10/12/2021 12:03 PM [facility] Comment: THIS ASSAY IS NOT RECOMMENDED FOR PATIENTS UNDERGOING TREATMENT WITH ELTROMBOPAG DUE TO THE POTENTIAL FOR FALSELY ELEVATED RESULTS. ALKALINE PHOSPHATASE S/P/B 88 45 - 115 U/L 10/12/2021 12:03 PM [facility] AST 20 15 - 37 U/L 10/12/2021 12:03 PM [facility] ALT 26 16 - 63 U/L 10/12/2021 12:03 PM [facility] TOTAL PROTEIN S/P/B 7.1 6.4 - 8.2 G/DL 10/12/2021 12:03 PM [facility] ALBUMIN S/P/B 3.3(L) 3.4 - 5.0 G/DL 10/12/2021 12:03 PM [facility] ANION GAP 6.3 5.0 - 15.0 MMOL/L 10/12/2021 12:03 PM [facility] OSMOLALITY (CALC) 282 MOSM/KG 022 12:03 PM [facility] Comment:REFERENCE RANGE NOT ESTABLISHED GFR ESTIMATE 62(L) >89 ML/MIN/1. 73 M2 10/12/2021 12:03 PM [facility] GFR NOTES GFR REFERENCE S: 10/12/2021 12:03 PM [facility] Comment: THE ESTIMATED GFR IS [...] 10/12/2021 11:2 2 AM CDT Graciela Rodriguez [facility] Final Result [facility] [address] [place] [address], * (ABNORMAL) CBC W/DIFF AUTOMATED (10/12/2021 11:22 AM CDT) WBC 11.3(H) 4.0 - 10.8 x10'3/uL 10/12/2021 11:44 AM CDT [facility] RBC 4.56 4.50 - 6.10 x10'6/uL 10/12/2021 11:44 AM CDT [facility] HGB 11.5(L) 13.0 - 18.0 G/DL 10/12/2021 11:44 AM CDT [facility] HCT 37.1 37.0 - 52.0 % 10/12/2021 11:44 AM CDT [facility] MCV 81.4 78.0 - 100.0 FL 10/12/2021 11:44 AM CDT [facility] MCH 25.2(L) 27.0 - 31.0 PG 10/12/2021 11:44 AM CDT [facility] MCHC 31.0(L) 33.0 - 36.0 G/DL 10/12/2021 11:44 AM CDT [facility] RDW 19.9(H) 11.5 - 14.5 % 10/12/2021 11:44 AM CDT [facility] PLT 168 150 - 350 x10'3/uL 10/12/2021 11:44 AM CDT [facility] MPV 9.6 7.4 - 10.4 FL 10/12/2021 11:44 AM CDT [facility] DIFFERENTIAL COMMENT NORMAL REFERENCE RANGE NOT ESTABLISHED FOR THE PROPORTIONAL LEUKOCYTE DIFFERENTIAL. 10/12/2021 11:44 AM CDT [facility] SEG NEUTROPHILS 73 % 12:53 PM CDT [facility] METAMYELOCYTES 3 % 10/12/2021 12:53 PM CDT [facility] LYMPHOCYTES 13 % 10/12/2021 12:53 PM CDT [facility] MONOCYTES 7 % 10/12/2021 12:53 PM CDT [facility] EOSINOPHILS 4 % 10/12/2021 12:53 PM CDT [facility] NRBC 1 /100 WBC 10/12/2021 12:53 PM CDT [facility] ABS. NEUTROPHILS CALCULATED 8.25 1.60 - 8.30 x10'3/uL 10/12/2021 12:53 PM CDT [facility] ABS. METAMYELOCYTES 0.34(H) 0.00 x10'3/uL 10/12/2021 12:53 PM CDT [facility] ABS. LYMPHOCYTES 1.47 0.80 - 4.70 x10'3/uL 10/12/2021 12:53 PM CDT [facility] ABS. MONOCYTES 0.79 0.10 - 1.50 x10'3/uL 10/12/2021 12:53 PM CDT [facility] ABS. EOSINOPHILS 0.45(H) 0.00 - 0.40 x10'3/uL 10/12/2021 12:53 PM CDT [facility] ABS. NUCLEATED RBC'S 0.11(H) 0.00 x10'3/uL 10/12/2021 12:53 PM CDT [facility] PLT MORPH. 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
--- OUTSIDE RECORDS SUMMARY | 2024-02-23 13:33 | XMS_ITS | Encounter Summary ---
Author Organization [facility] Address [address] [place] [address]. [place], [place] [id number] [place] [id number] Care Team Providers Care College Instructor Name Role Phone Dominic Recinos MD Primary Care Provider [phone] Bonilla Anton MD Unavailable Celso Haro DO Unavailable Encounter Details Date Type Department Care Team (Late st Contact Info) Description 11/10/2021 12:35 PM CDT - 11/10/2021 11:59 PM CDT Hospital Encounter [facility] [address] [place] [address] Graciela Rodriguez, [facility] [address] [place] [id number] Discharge Disposition: Home or Self Care (Routine [...] mLs documented in this encounter Care Teams College Instructor Relationship Specialty Start Date End Date Dominic Recinos MD [address] [place] [address] PCP - General INTERNAL MEDICINE 09/18/21 Bonilla Anton MD [address] [place] [address] Consulting Physician INTERNAL MEDICINE 10/16/21 Celso Haro DO [address] [facility] [address] [place], [place] [id number] INTERNAL MEDICINE 10/16/21 documented as of this encounter
--- OUTSIDE RECORDS SUMMARY | 2024-02-23 13:33 | XMS_ITS | Encounter Summary ---
Author Organization [facility] Address [address] [place] [address]. [place], [place] [address] [place] [address] Care Team Providers Care Security Operations Analyst Name Role Phone Dominic Recinos MD Primary Care Provider [phone] Encounter Details Date Type Department Care Team [...] filedocumented in this encounter Care Teams Security Operations Analyst Relationship Specialty Start Date End Date Dominic Recinos MD [address] [place] [address] PCP - General INTERNAL MEDICINE 09/18/21 documented as of this encounter
--- OUTSIDE RECORDS SUMMARY | 2024-02-23 13:33 | XMS_ITS | Encounter Summary ---
Author Organization [facility] Address [address] [place] [address]. [place], [place] [address] [place] [address] Care Team Providers Care Behavioral Interventionist Name Role Phone Dominic Recinos MD Primary Care Provider [phone] Bonilla Anton MD Unavailable Celso Haro DO Unavailable Encounter Details Date Type Department Care Team (Late st Contact Info) Description 10/19/2021 8:55 AM CDT - 10/19/2021 11:59 PM CDT Hospital Encounter [facility] [address] [place] [id number] Graciela Rodriguez, [facility] [address] [place] [address] Discharge Disposition: Home or Self Care (Routine [...] 2 diabetes mellitus, with necrosis of muscle ([facility] HHS/HCC)- Primary documented in this encounter Administered Medications Inactive Administered Medications - up to 3 most recent administrations Medication Order MAR Action Action Date Dose Rate Site lidocaine (XYLOCAINE) 2 % jelly 5 mL 5 mL, Topical, Once, 1 dose, On 10/19/21 at 1000Indications:Diabetic ulcer of left heel associated with type 2 diabetes mellitus, with necrosis of muscle ([facility] HHS/HCC) Given 10/19/2021 10:00 AM CDT 5 mLs documented in this encounter Care Teams Behavioral Interventionist Relationship Specialty Start Date End Date Dominic Recinos MD [address] [place] [address] PCP - General INTERNAL MEDICINE 09/18/21 Bonilla Anton MD [address] [place] [address] Consulting Physician INTERNAL MEDICINE 10/16/21 Celso Haro DO [address] [place], [place] [id number] INTERNAL MEDICINE 10/16/21 documented as of this encounter
--- OUTSIDE RECORDS SUMMARY | 2024-02-23 13:33 | XMS_ITS | Encounter Summary ---
Author Organization [facility] Address [address] [place] [address]. [place] [address] [place] [address] Care Team Providers Care Acoustic Intelligence Specialist Name Role Phone Dominic Recinos MD Primary Care Provider Reason for Referral * Consultation (Routine) - Closed Specialty Diagnoses / Procedures Referred By Contkaren t Referred To Contact Cardiology Diagnoses Peripheral vascular disease (CMS/HCC) Procedures OFFICE/OUTPT VISIT,NEW,LEVL III OFFICE/OUTPT VISIT,NEW,LEVL IV OFFICE/OUTPT VISIT,NEW,LEVL V OFFICE/OUTPT VISIT,EST,LEVL III OFFICE/OUTPT VISIT,EST,LEVL IV OFFICE/OUTPT VISIT,EST,LEVL V Graciela Rodriguez FNP [address] [place] [id number] Phone: tel: fax: Bonilla Anton MD [address] [address] Phone: tel: fax: Referral ID Status Reason Start Date Expiration Date V isits Requested Visits Authorized [id number] Closed Specialty Services 10/15/2021 10/15/2022 1 1 Encounter Details Date Type Department Care Team (Late st Contact Info) Description 10/15/2021 Orders Only [facility] [address] [address] Graciela Rodriguez FNP [address] [place] [address] Social History Tobacco Use Types Packs/Day Years [...] unspecified documented in this encounter Care Teams Acoustic Intelligence Specialist Relationship Specialty Start Date End Date Dominic Recinos MD [address] [place] [address] PCP - General INTERNAL MEDICINE 09/18/21 documented as of this encounter
--- OUTSIDE RECORDS SUMMARY | 2024-02-23 13:33 | XMS_ITS | Encounter Summary ---
Author Organization [facility] Address [address] [place] [address]. [place] [address] [place] [address] Care Team Providers Care Dot Compliance Manager Name Role Phone Dominic Recinos MD Primary Care Provider [phone] Encounter Details Date Type Department Care Team (Late st Contact Info) Description 10/05/2021 9:45 AM CDT - 10/05/2021 11:59 PM CDT Hospital Encounter [facility] [address] [place] [address] Graicela Rodriguez, [facility] [address] [place] [address] Discharge Disposition: Home or Self Care (Routine [...] 2 diabetes mellitus, with necrosis of muscle ([facility] HHS/HCC)- Primary Abrasion of right knee, [...] 2 diabetes mellitus, with necrosis of muscle ([facility] HHS/HCC) Given 10/05/2021 10:20 AM CDT 5 mLs jfjmmhcm-cjjjfqibet-xsobvtvqd (NEOSPORIN) ointment Topical, Once, 1 dose, On Tue10/05/21 at 1145Indications:Abrasion of right knee, initial encounter Given 10/05/2021 11:40 AM CDT documented in this encounter Care Teams Dot Compliance Manager Relationship Specialty Start Date End Date Dominic Recinos MD [address] [place] [address] PCP - General INTERNAL MEDICINE 09/18/21 documented as of this encounter
--- OUTSIDE RECORDS SUMMARY | 2024-02-23 13:33 | XMS_ITS | Encounter Summary ---
Author Organization [facility] Address On license of [facility] [place] [address] [place] [address] Care Team Providers Care Management Analyst Name Role Phone Dominic Recinos MD Primary Care Provider [phone] Bonilla Anton MD Unavailable Celso Haro DO [...] on filedocumented in this encounter Care Teams Management Analyst Relationship Specialty Start Date End Date Dominic Recinos MD [address] [place] [address] PCP - General INTERNAL MEDICINE 09/18/21 Bonilla Anton MD [address] [place] [address] Consulting Physician INTERNAL MEDICINE 10/16/21 Celso Haro DO [address] [facility] [address] [place] [address] INTERNAL MEDICINE 10/16/21 documented as of this encounter
--- OUTSIDE RECORDS SUMMARY | 2024-02-23 13:33 | XMS_ITS | Encounter Summary ---
Author Organization [facility] Address [facility] [place] [address] [place] [address] Care Team Providers Care Pulverizer Name Role Phone Dominic Recinos MD Primary Care Provider [phone] Bonilla Anton MD Unavailable Celso Haro DO [...] on filedocumented in this encounter Care Teams Pulverizer Relationship Specialty Start Date End Date Dominic Recinos MD [address] [place] [address] PCP - General INTERNAL MEDICINE 09/18/21 Bonilla Anton MD [address] [place] [address] Consulting Physician INTERNAL MEDICINE 10/16/21 Celso Haro DO [address] [facility] [address] [place] [address] INTERNAL MEDICINE 10/16/21 documented as of this encounter
--- OUTSIDE RECORDS SUMMARY | 2024-02-23 13:33 | XMS_ITS | Encounter Summary ---
Author Organization [facility] Address [address] [place] [address]. [place], [place] [address] [place] [address] Care Team Providers Care Workers Compensation Examiner Name Role Phone Dominic Recinos MD Primary Care Provider [phone] Encounter Details Date Type Department Care Team [...] on filedocumented in this encounter Care Teams Workers Compensation Examiner Relationship Specialty Start Date End Date Dominic Recinos MD [address] [place] [address] PCP - General INTERNAL MEDICINE 09/18/21 documented as of this encounter
--- OUTSIDE RECORDS SUMMARY | 2024-02-23 13:33 | XMS_ITS | Encounter Summary ---
Author Organization [facility] Address [facility] [place] [address] [place] [address] Care Team Providers Care Medical Observer Name Role Phone Dominic Recinos MD Primary Care Provider [phone] Bonilla Anton MD Unavailable Celso Haro DO Unavailable Reason for Visit * Reason Comments Lab (SCAN) Encounter Details Date Type Department Care Team (Late st Contact Info) Description 09/15/2021 Scan [facility] [address] [place] [address] Scanned, Documents Lab (SCAN) Social [...] 09/15/2021 us Documents Scanned SCANNING Final Result [facility] ONBASE documented in this encounter Visit Diagnoses Not on filedocumented in this encounter Care Teams Medical Observer Relationship Specialty Start Date End Date Dominic Recinos MD [address] [place] [address] PCP - General INTERNAL MEDICINE 09/18/21 Bonilla Anton MD [address] [place] [address] Consulting Physician INTERNAL MEDICINE 10/16/21 Celso Haro DO [address] [facility] [address] [place], [place] [address] INTERNAL MEDICINE 10/16/21 documented as of this encounter
--- OUTSIDE RECORDS SUMMARY | 2024-02-23 13:33 | XMS_ITS | Encounter Summary ---
Author Organization [facility] Address [address] [place] [address]. [place], [place] [address] [place] [address] Care Team Providers Care Bellhop Name Role Phone Dominic Recinos MD Primary Care Provider [phone] Encounter Details Date Type Department Care Team [...] on filedocumented in this encounter Care Teams Bellhop Relationship Specialty Start Date End Date Dominic Recinos MD [address] [place] [address] PCP - General INTERNAL MEDICINE 09/18/21 documented as of this encounter
--- OUTSIDE RECORDS SUMMARY | 2024-02-23 13:33 | XMS_ITS | Encounter Summary ---
Author Organization [facility] Address [address] [place] [address]. [place], [place] [address] [place] [address] Care Team Providers Care Game Attendant Name Role Phone Dominic Recinos MD Primary Care Provider [phone] Encounter Details Date Type Department Care Team [...] on filedocumented in this encounter Care Teams Game Attendant Relationship Specialty Start Date End Date Dominic Recinos MD [address] [place] [address] PCP - General INTERNAL MEDICINE 09/18/21 documented as of this encounter
--- OUTSIDE RECORDS SUMMARY | 2024-02-23 13:33 | XMS_ITS | Encounter Summary ---
Author Organization [facility] Address [address] [place] [address]. [place], [place] [address] [place] [address] Care Team Providers Care Ethylbenzene Converter Operator Name Role Phone Dominic Recinos MD Primary Care Provider [phone] Encounter Details Date Type Department Care Team [...] on filedocumented in this encounter Care Teams Ethylbenzene Converter Operator Relationship Specialty Start Date End Date Dominic Recinos MD [address] [place] [address] PCP - General INTERNAL MEDICINE 09/18/21 documented as of this encounter
--- OUTSIDE RECORDS SUMMARY | 2024-02-23 13:33 | XMS_ITS | Encounter Summary ---
Author Organization [facility] Address [address] [place] [address]. [place] [address] [place] [address] Care Team Providers Care French Instructor Name Role Phone Dominic Recinos MD Primary Care Provider Bonilla Anton MD Unavailable Celso Haro DO Unavailable Reason for Visit * Reason Onset Date Comments Appointment Request 10/16/2021 Encounter Details Date Type Department Care Team (Late st Contact Info) Description 10/16/2021 Telephone [facility] ld [address] [place] [address] Bonilla Anton MD [address] [place] [address] Appointment Request Social History Tobacco [...] filedocumented in this encounter Care Teams French Instructor Relationship Specialty Start Date End Date Dominic Recinos MD [address] [place] [address] PCP - General INTERNAL MEDICINE 09/18/21 Bonilla Anton MD [address] [place] [address] Consulting Physician INTERNAL MEDICINE 10/16/21 Celso Haro DO [address] [facility] [address] [place] [address] INTERNAL MEDICINE 10/16/21 documented as of this encounter
--- OUTSIDE RECORDS SUMMARY | 2024-02-23 13:33 | XMS_ITS | Encounter Summary ---
Author Organization [facility] Address [address] [place] [address]. [place], [place] [address] [place] [address] Care Team Providers Care Real Estate Asset Manager Name Role Phone Dominic Recinos MD Primary Care Provider Bonilla Anton MD Unavailable Celso Haro DO Unavailable Encounter Details Date Type Department Care Team (Late st Contact Info) Description 10/26/2021 8:44 AM CDT - 10/26/2021 11:59 PM CDT Hospital Encounter [facility] [address] [place] [id number] Graciela Rodriguez, [facility] [address] [place] [address] Discharge Disposition: Home or Self Care (Routine [...] 2 diabetes mellitus, with necrosis of muscle ([facility]/HCC HHS/HCC) documented in this encounter Results * CULTURE, WOUND, W/GRAM STAIN (10/26/2021 9:28 AM CDT) SPEC DESCRIPTION FOOT,LEFT 10/26/2021 9:47 AM CDT [facility] SPECIAL REQUESTS NO SPECIAL REQUEST 10/26/2021 9:47 AM CDT [facility] GRAM STAIN RESULT NO WBC SEEN 10/26/2021 2:41 PM CDT [facility] GRAM STAIN RESULT RARE GRAM POSITIVE RODS 10/26/2021 2:41 PM CDT [facility] CULTURE RESULT FEW PSEUDOMONAS AERUGINOSA 10/29/2021 9:14 AM CDT [facility] CULTURE RESULT FEW PROTEUS MIRABILIS 10/29/2021 9:14 AM CDT [facility] CULTURE RESULT FEW ENTEROCOCCUS FAECALIS 10/29/2021 9:14 AM CDT [facility] STRUCTURE OF LEFT FOOT / Unknown [...] MICROBIOLOGY - GENERAL ORDERAB LES Final Result [facility] [address] [place] [address], [place] [phone] [facility] [address] [place] [address], documented in this encounter Visit Diagnoses Diagnosis [...] mLs documented in this encounter Care Teams Real Estate Asset Manager Relationship Specialty Start Date End Date Dominic Recinos MD [address] [place] [address] PCP - General INTERNAL MEDICINE 09/18/21 Bonilla Anton MD [address] [place] [address] Consulting Physician INTERNAL MEDICINE 10/16/21 Celso Haro DO 68[address] [facility] [address] [place], [place] [address] INTERNAL MEDICINE 10/16/21 documented as of this encounter
--- OUTSIDE RECORDS SUMMARY | 2024-02-23 13:33 | XMS_ITS | Encounter Summary ---
Author Organization [facility] Address [facility] [place] [address] [place] [address] Care Team Providers Care Claims Adjudicator Name Role Phone Dominic Recinos MD Primary Care Provider [phone] Bonilla Anton MD Unavailable Celso Haro DO Unavailable Reason for Visit * Reason Comments Echo (SCAN) Encounter Details Date Type Department Care Team ([facility] st Contact Info) Description 12/23/2020 Scan [facility] [address] [place] [address] Scanned, Documents Echo (SCAN) Social [...] filedocumented in this encounter Care Teams Claims Adjudicator Relationship Specialty Start Date End Date Dominic Recinos MD [address] [place] [address] PCP - General INTERNAL MEDICINE 09/18/21 Bonilla Anton MD [address] [place] [address] Consulting Physician INTERNAL MEDICINE 10/16/21 Celso Haro DO [address] [facility] [address] [place] [address] INTERNAL MEDICINE 10/16/21 documented as of this encounter
--- OUTSIDE RECORDS SUMMARY | 2024-02-23 13:33 | XMS_ITS | Encounter Summary ---
Author Organization [facility] Address [facility]6 [facility] [place] [address] [place] [address] Care Team Providers Care Production Support Consultant Name Role Phone Dominic Recinos MD Primary Care Provider [phone] Bonilla Anton MD Unavailable Celso Haro DO Unavailable Reason for Visit * Reason Onset Date Comments Appointment Request 10/15/2021 Encounter Details Date Type Department Care Team (Late st Contact Info) Description 10/15/2021 Telephone [facility] ld [address] [place] [address] Bonilla Anton MD [address] [place] [address] Appointment Request Social History Tobacco [...] 12:33 PM CDT Notes from DEREK Rodriguez PROGRAMMING INSTRUCTOR with wound center work Q requested Apt for PVD needing records and referral from from PCP Jorje [phone] and cardiology records from Tahir [phone] Haro office called back and will send last office note and an echo. 11/04/[address] PCP office Dr. Recinos and she is to fax office note, labs and insurance auth SR Records received and referral C/P into epic * Karon Polo RN - 10/16/2021 1:10 PM CDT INTAKEReferral Source: Work Q referral Insurance: [facility] Medicare Advantage HMO will request referral Caller: Caller Phone Number: Symptoms/Consult for: PVD Request Records-fax to [phone]: yes and some records in care everywhere Current PCC Patient: no Recent hospitalizations: no Ever seen a drapery cutter machine in the past: yes in [place] Requested appt timeframe: [place] Recent testing/labs: yes [...] from Graciela Rodriguez requesting an apt in [place] with Dr. Anton for PVD. Attempted to call patient to discuss apt options but there was on Answer. I left message asking patient to call scheduling dept back. Next available apt noted in [place] with is 11/10/21 at 2:15. documented in this encounter Plan of Treatment Not on file documented as of this encounter Visit Diagnoses Not on filedocumented in this encounter Care Teams Production Support Consultant Relationship Specialty Start Date End Date Dominic Recinos MD [address] [place] [address] PCP - General INTERNAL MEDICINE 09/18/21 Bonilla Anton MD [address] [place] [address] Consulting Physician INTERNAL MEDICINE 10/16/21 Celso Haro DO [address] [facility] [address] [place], [place] [phone] INTERNAL MEDICINE 10/16/21 documented as of this encounter
--- OUTSIDE RECORDS SUMMARY | 2024-02-23 13:33 | XMS_ITS | Encounter Summary ---
Author Organization [facility] Address [facility] [place] [address] [place] [address] Care Team Providers Care Microwave Radio Technician Name Role Phone Dominic Recinos MD Primary Care Provider [phone] Bonilla Anton MD Unavailable Celso Haro DO [...] on filedocumented in this encounter Care Teams Microwave Radio Technician Relationship Specialty Start Date End Date Dominic Recinos MD [address] [place] [address] PCP - General INTERNAL MEDICINE 09/18/21 Bonilla Anton MD [address] [place] [address] Consulting Physician INTERNAL MEDICINE 10/16/21 Celso Haro DO [address] [facility] [address] [place] [address] INTERNAL MEDICINE 10/16/21 documented as of this encounter
--- OUTSIDE RECORDS SUMMARY | 2024-02-23 13:33 | XMS_ITS | Encounter Summary ---
Author Organization [facility] Address [address] [place] [address]. [place], [place] [address] [place] [address] Care Team Providers Care Collection Systems Foreman Name Role Phone Dominic Recinos MD Primary Care Provider [phone] Reason for Referral * Imaging (Routine) - Closed Specialty Diagnoses / Procedures Referred By Contac t Referred To Contact RADIOLOGY Diagnoses Diabetic ulcer of left heel associated with type 2 diabetes mellitus, with necrosis of muscle (CMS/HCC HHS/HCC) Procedures USV ART DUPLEX LOW NGUYEN Graciela Rodriguez, WRAPPING MACHINE TENDER [address] [place] [address] Phone: tel: fax: Referral ID Status Reason Start Date Expiration Date Visits Re quested Visits Authorized [id number] Closed 09/21/2021 10/22/2022 1 1 * Imaging (Routine) - Closed Specialty Diagnoses / Procedures Referred By Contac t Referred To Contact RADIOLOGY Diagnoses Diabetic ulcer of left heel associated with type 2 diabetes mellitus, with necrosis of muscle (CMS/HCC HHS/HCC) Procedures USV ANSON LTD NGUYEN Graciela Rodriguez, WRAPPING MACHINE TENDER [address] [place] [address] Phone: tel: fax: Referral ID Status Reason Start Date Expiration Date Visits Re quested Visits Authorized [id number] Closed 09/21/2021 10/22/2022 1 1 Encounter Details Date Type Department Care Team (Late st Contact Info) Description 09/21/2021 10:56 AM CDT - 09/21/2021 11:59 PM CDT Hospital Encounter [facility] [address] [facility] [address] Graciela Rodriguez, WRAPPING MACHINE TENDER [address] [facility] [place] [address] Discharge Disposition: Home or Self [...] Laterality Modality Extremity Ultrasound us Graciela Rodriguez WRAPPING MACHINE TENDER US VASC Final Result * USV ART DUPLEX LOW NGUYEN (10/08/2021 9:13 AM CDT) Anatomical Region Laterality Modality Extremity Ultrasound us Graciela Rodriguez WRAPPING MACHINE TENDER US VASC Final Result * CULTURE, TISSUE W/GRAM STAIN (09/21/2021 11:46 AM CDT) SPEC DESCRIPTION HEEL, LEFT 09/21/2021 12:19 PM CDT [facility] SPECIAL REQUESTS NO SPECIAL REQUEST 09/21/2021 12:19 PM CDT [facility] GRAM STAIN RESULT RARE WBC'S SEEN 09/21/2021 2:17 PM CDT [facility] GRAM STAIN RESULT FEW GRAM POSITIVE COCCI 09/21/2021 2:17 PM CDT [facility] CULTURE RESULT MODERATE ENTEROCOCCUS FAECALIS 09/24/2021 8:01 AM CDT [facility] CULTURE RESULT FEW SERRATIA MARCESCENS 09/24/2021 8:01 AM CDT [facility] LEFT HEEL STRUCTURE / Unknown 09/21/2021 [...] MICROBIOLOGY - GENERAL ORDERAB LES Final Result [facility] [address] [place] [address], [place] [phone] [facility] [address] [place] [address], [place] [phone] documented in this encounter Visit Diagnoses Diagnosis [...] mLs documented in this encounter Care Teams Collection Systems Foreman Relationship Specialty Start Date End Date Dominic Recinos MD [address] [place] [address] PCP - General INTERNAL MEDICINE 09/18/21 documented as of this encounter
--- OUTSIDE RECORDS SUMMARY | 2024-02-23 13:33 | XMS_ITS | Encounter Summary ---
Author Organization [facility] Address [address] [place] [address]. [place] [address] [place] [address] Care Team Providers Care Private Investigator Surveillance Name Role Phone Dominic Recinos MD Primary Care Provider [phone] Reason for Referral * Imaging (Routine) - Closed Specialty Diagnoses / Procedures Referred By Contac t Referred To Contact RADIOLOGY Diagnoses Diabetic ulcer of left heel associated with type 2 diabetes mellitus, with necrosis of muscle ([facility]/HCC HHS/HCC) Procedures MRI FOOT LT WWO CON Graciela Rodriguez FNP [address] [place] [address] Phone: tel: fax: Referral ID Status Reason Start Date Expiration Date Visits Re quested Visits Authorized [id number] Closed 10/02/2021 10/02/2022 1 1 Encounter Details Date Type Department Care Team (Late st Contact Info) Description 10/02/2021 Orders Only [facility] [address] [place] [address] Graciela Rodriguez FNP [address] [place] [address] Social History Tobacco Use Types Packs/Day Years Used Date Smoking Tobacco: Never Assessed Sex and Gender Information Value Date Recorded Sex Assigned at Not on file Legal Sex Male 8:11 PM CDT Gender Identity Not on file Sexual Orientation Not on file COVID-19 Exposure Response Date Recorded In the last 10 days, have gilda espnioza been in contact with someone who was [...] Per radiology, device compatible with MRI in [place]. documented in this encounter Plan of Treatment [...] Martinez MD, 11/17/2021 9:07 AM Graciela Rodriguez SOIL SCIENTIST MRI Final Result documented in this encounter [...] conditions documented in this encounter Care Teams Private Investigator Surveillance Relationship Specialty Start Date End Date Dominic Recinos MD [address] [place] [id number] PCP - General INTERNAL MEDICINE 09/18/21 documented as of this encounter
--- OUTSIDE RECORDS SUMMARY | 2024-02-23 13:33 | XMS_ITS | Encounter Summary ---
Author Organization [facility] Address [address] [place] [address]. [place], [place] [address] [place] [address] Care Team Providers Care Four Slide Machine Setter Name Role Phone Dominic Recinos MD Primary Care Provider [phone] Encounter Details Date Type Department Care Team (Late st Contact Info) Description 09/24/2021 Orders Only [facility] [address] [place] [address] Graciela Rodriguez FNP [address] [place] [address] Social History Tobacco Use Types Packs/Day Years [...] D documented in this encounter Care Teams Four Slide Machine Setter Relationship Specialty Start Date End Date Dominic Recinos MD [address] [place] [address] PCP - General INTERNAL MEDICINE 09/18/21 documented as of this encounter
--- OUTSIDE RECORDS SUMMARY | 2024-02-23 13:33 | XMS_ITS | Encounter Summary ---
Author Organization [facility] Address [address] [place] [address]. [place], [place] [address] [place] [address] Care Team Providers Care Lieutenant Governor Name Role Phone Dominic Recinos MD Primary Care Provider [phone] Encounter Details Date Type Department Care Team [...] on filedocumented in this encounter Care Teams Lieutenant Governor Relationship Specialty Start Date End Date Dominic Recinos MD [address] [place] [address] PCP - General INTERNAL MEDICINE 09/18/21 documented as of this encounter
--- OUTSIDE RECORDS SUMMARY | 2024-02-23 13:33 | XMS_ITS | Encounter Summary ---
Author Organization [facility] Address [address] [place] [address]. [place], [place] [address] [place] [address] Care Team Providers Care White Sidewall Tire Buffer Name Role Phone Dominic Nixon MD Primary Care Provider [phone] Bonilla Linda MD Unavailable Celso Haro DO Unavailable Reason for Referral * Imaging (Routine) - Closed Specialty Diagnoses / Procedures Referred By Contac t Referred To Contact RADIOLOGY Diagnoses Hyperlipidemia, mixed PAD (peripheral artery disease) ([facility]/HCC) Procedures CTA AORTO ILIOFEM RUNOFF Bonilla Linda MD [address] [place] [address] Phone: tel: fax: Referral ID Status Reason Start Date Expiration Date Visits Re quested Visits Authorized [id number] Closed 11/10/2021 12/11/2022 1 1 Reason for Visit * Reason Comments Consult * Consultation (Routine) - Closed Specialty Diagnoses / Procedures Referred By Contac t Referred To Contact Cardiology Diagnoses Peripheral vascular disease ([facility]/HCC) Procedures OFFICE/OUTPT VISIT,NEW,LEVL III OFFICE/OUTPT VISIT,NEW,LEVL IV OFFICE/OUTPT VISIT,NEW,LEVL V OFFICE/OUTPT VISIT,EST,LEVL III OFFICE/OUTPT VISIT,EST,LEVL IV OFFICE/OUTPT VISIT,EST,LEVL V Graciela Rodriguez, INTERNET MARKETING ANALYST [address] [place] [address] Phone: tel: fax: Bonilla Linda MD [address] [place] [address] Phone: tel: fax: Referral ID Status Reason Start Date Expiration Date V isits Requested Visits Authorized [id number] Closed Specialty Services 10/15/2021 10/15/2022 1 1 Encounter Details Date Type Department Care Team (Late st Contact Info) Description 11/10/2021 2:15 PM CDT Office Visit [facility] [address] [place] [phone] Bonilla Linda MD [address] [place], [place] [address] Consult Social History Tobacco Use Types Packs/Day [...] He follows with an [facility] at [place] and will defer to them. 3. Atrial fibrillation - Coumadin, will defer to them. 4. Hypertension. Blood pressure is decently well controlled. 5. Hyperlipidemia. He is on statins, would recommend goal LDL less than 70 mg/dL. Thank you very much. Follow up in 1 month or so with CT aorta with runoff. Meanwhile, will follow on MRI as well. #[id number] /[id number] Addendum: Wound examined at the wound [...] Visit Diagnoses Diagnosis PAD (peripheral artery disease) ([facility]/HCC)- Primary Peripheral vascular disease, unspecified Ulcer of left lower extremity with fat layer exposed ([facility]/HCC [facility]/HCC) Hyperlipidemia, mixed Mixed hyperlipidemia Hyperlipidemia, mixed Mixed hyperlipidemia PAD (peripheral artery disease) ([facility]) Peripheral vascular disease, unspecified documented in this encounter Care Teams White Sidewall Tire Buffer Relationship Specialty Start Date End Date Dominic Nixon MD [address] [place] [phone] PCP - General INTERNAL MEDICINE 09/18/21 Bonilla Linda MD [address] [place] [address] Consulting Physician INTERNAL MEDICINE 10/16/21 Celso Haro DO [address] [facility] [address] [place] [address] INTERNAL MEDICINE 10/16/21 documented as of this encounter
--- OUTSIDE RECORDS SUMMARY | 2024-02-23 13:33 | XMS_ITS | Encounter Summary ---
Author Organization [facility] Address [address] [place] [address]. [place], [place] [phone] [place] [address] Care Team Providers Care Wildlife Ecology Professor Name Role Phone Dominic Recinos MD Primary Care Provider [phone] Bonilla Anton MD Unavailable Celso Haro DO Unavailable Encounter Details Date Type Department Care Team (Late st Contact Info) Description 11/02/2021 8:51 AM CDT - 11/02/2021 11:59 PM CDT Hospital Encounter [facility] [address] [place] [id number] Graciela Rodriguez, [facility] [address] [place] [address] Discharge Disposition: Home or Self Care (Routine [...] mLs documented in this encounter Care Teams Wildlife Ecology Professor Relationship Specialty Start Date End Date Dominic Recinos MD [address] [place] [phone] PCP - General INTERNAL MEDICINE 09/18/21 Bonilla Anton MD [address] [place] [address] Consulting Physician INTERNAL MEDICINE 10/16/21 Celso Haro DO [address] [place] [address] INTERNAL MEDICINE 10/16/21 documented as of this encounter
--- OUTSIDE RECORDS SUMMARY | 2024-02-23 13:33 | XMS_ITS | Encounter Summary ---
Author Organization [facility] Address [address] [place] [address]. [place], [place] [address] [place] [address] Care Team Providers Care Party Host/Hostess Name Role Phone Dominic Recinos MD Primary Care Provider [phone] Bonilla Anton MD Unavailable Celso Haro DO Unavailable Reason for Referral * Imaging (Routine) - Closed Specialty Diagnoses / Procedures Referred By Contac t Referred To Contact RADIOLOGY Diagnoses Diabetic ulcer of left heel associated with type 2 diabetes mellitus, with necrosis of muscle (CMS/HCC HHS/HCC) Procedures MRI ANKLE LT WWO CON Graciela Rodriguez FNP [address] [address] Phone: tel: fax: Referral ID Status Reason Start Date Expiration Date Visits Re quested Visits Authorized [id number] Closed 10/12/2021 10/12/2022 1 1 * Imaging (Routine) - Closed Specialty Diagnoses / Procedures Referred By Contac t Referred To Contact RADIOLOGY Diagnoses Diabetic ulcer of left heel associated with type 2 diabetes mellitus, with necrosis of muscle (CMS/HCC HHS/HCC) Procedures MRI FOOT LT WWO CON Graciela Rodriguez FNP [address] [address] Phone: tel: fax: Referral ID Status Reason Start Date Expiration Date Visits Re quested Visits Authorized [id number] Closed 10/02/2021 10/02/2022 1 1 Reason for Visit * Imaging (Routine) - Closed Specialty Diagnoses / Procedures Referred By Mark t Referred To Contact RADIOLOGY Diagnoses Diabetic ulcer of left heel associated with type 2 diabetes mellitus, with necrosis of muscle (CMS/HCC HHS/HCC) Procedures MRI FOOT LT WWO CON Graciela Rodriguez FNP [address] [place] [address] Phone: tel: fax: Referral ID Status Reason Start Date Expiration Date Visits Re quested Visits Authorized [id number] Closed 10/02/2021 10/02/2022 1 1 Encounter Details Date Type Department Care Team (Late st Contact Info) Description 11/12/2021 8:30 AM CDT - 11/12/2021 11:59 PM CDT Hospital Encounter [facility] MRI [address] [place] [address] Dominic Recinos MD [address] [place] [address] Discharge Disposition: Home or Self [...] Martinez MD, 11/17/2021 9:07 AM Graciela Rodriguez [facility] MRI Final Result * MRI FOOT LT [...] Martinez MD, 11/17/2021 9:07 AM Graciela Rodriguez MINER HELPER MRI Final Result * XR CHEST PA+LAT [...] mLs documented in this encounter Care Teams Party Host/Hostess Relationship Specialty Start Date End Date Dominic Recinos MD [address] [place] [phone] PCP - General INTERNAL MEDICINE 09/18/21 Bonilla Anton MD [address] [place] [address] Consulting Physician INTERNAL MEDICINE 10/16/21 Celso Haro DO [address] [facility] [address] [place], [place] [id number] INTERNAL MEDICINE 10/16/21 documented as of this encounter
--- OUTSIDE RECORDS SUMMARY | 2024-02-23 13:33 | XMS_ITS | Encounter Summary ---
Author Organization [facility] Address [address] [place] [address]. [place] [address] [place] [address] Care Team Providers Care Screen Printer Name Role Phone Dominic Recinos MD Primary Care Provider [phone] Encounter Details Date Type Department Care Team (Late st Contact Info) Description 09/18/2021 11:57 AM CDT - 09/18/2021 11:59 PM CDT Hospital Encounter [facility] [address] [place] [address] Graciela Rodriguez, [facility] [address] [place] [address] Discharge Disposition: Home or Self Care (Routine [...] applicators documented in this encounter Care Teams Screen Printer Relationship Specialty Start Date End Date Dominic Recinos MD [address] [place] [address] PCP - General INTERNAL MEDICINE 09/18/21 documented as of this encounter
== END 2024-02-19 08:56 ==
PROVIDERS: Emergency Provider Student in an Organized Health Care Education/Training Program; PCP Internal Medicine
DX: T82.594A Other mechanical complication of infusion catheter, initial encounter (principal); I87.8 Other specified disorders of veins; I49.5 Sick sinus syndrome; I10 Essential (primary) hypertension; I48.91 Unspecified atrial fibrillation; I25.10 Atherosclerotic heart disease of native coronary artery without angina pectoris; E11.42 Type 2 diabetes mellitus with diabetic polyneuropathy; E11.51 Type 2 diabetes mellitus with diabetic peripheral angiopathy without gangrene; I73.9 Peripheral vascular disease, unspecified; E78.2 Mixed hyperlipidemia; E66.9 Obesity, unspecified; Z68.31 Body mass index [BMI] 31.0-31.9, adult; Z95.1 Presence of aortocoronary bypass graft; Z95.0 Presence of cardiac pacemaker; Z79.01 Long term (current) use of anticoagulants; M19.90 Unspecified osteoarthritis, unspecified site; Z79.84 Long term (current) use of oral hypoglycemic drugs; Z79.899 Other long term (current) drug therapy; Y84.8 Other medical procedures as the cause of abnormal reaction of the patient, or of later complication, without mention of misadventure at the time of the procedure
CPT/HCPCS: 99283; J2997

== ENCOUNTER 2024-03-13 13:57 | Inpatient (IN) | payer MEDICARE, SELFPAY ==
--- NOTE | ~2024-03-13 | XR_ITS ---
EXAMINATION: XR chest 1V portable DATE: 04/06/2024 16:48 INDICATION: Congestive heart failure. TECHNIQUE: A single frontal view of the chest was obtained. COMPARISON: Chest single view 04/05/2024, chest CT 04/02/2024 FINDINGS: There is a diffuse interstitial pattern, consistent with mild pulmonary edema. There is a s mall left pleural effusion. No pneumothorax. Cardiomegaly is noted. There is an implant in right vent ricle. Median sternotomy wires are noted. A right upper extremity peripherally inserted central venou s catheter (PICC) is seen with tip in the right atrium. IMPRESSION: 1. Mild pulmonary edema. 2. Small left pleural effusion. 3. Cardiomegaly. Reviewed, dictated and finalized at location A. GN PROJECT MANAGER
--- NOTE | ~2024-03-13 | XR_ITS ---
XR chest PICC line 04/02/2024 11:39 Indication: PICC line insertion Procedure: AP portable chest Comparison: Comparison to multiple prior studies sequentially, with oldest reviewed study dated 02/04. Findings: Right-sided PICC line tip ascends into the internal jugular vein in the neck, distal aspect not visualized. Status post median sternotomy for CABG. Cardiomegaly with mild interstitial edema. P ossible small left effusion. No pneumothorax. Impression: 1: Right-sided PICC line tip ascends superiorly into the internal jugular vein, distal aspect not vis ualized. Recommend repositioning. 2: Cardiomegaly with mild interstitial edema. Reviewed, dictated and finalized at location A. ER DENTURE Impression: 1: Right-sided PICC line tip ascends superiorly into the internal jugular vein, distal aspect not visualized. Recommend repositioning. 2: Cardiomegaly with mild interstitial edema.
--- NOTE | ~2024-03-13 | XR_ITS ---
XR chest 1V portable 03/13/2024 15:51 Indication: Weakness Procedure: AP portable chest Comparison: 02/19/2024 Findings: Status post median sternotomy for CABG. Cardiomegaly. Mild interstitial edema. There is a h iatal hernia. No significant effusion or pneumothorax. Impression: 1: Cardiomegaly with mild interstitial edema. Reviewed, dictated and finalized at location B. TY SHERIFF Impression: 1: Cardiomegaly with mild interstitial edema.
--- NOTE | ~2024-03-13 | CT_ITS ---
CT Scan of the Chest without Contrast: Clinical Indication: Pneumonia Technique: Contiguous sections were acquired throughout the chest without intravenous contrast. Dose reduction technique was used on this scan by utilizing automated exposure control and iterative recon struction technique. The dose-length product (DLP) was 650.13 mGy-cm. COMPARISON: 12/22/2023 Findings: There is no evidence of any significant mediastinal, hilar or axillary lymphadenopathy. Extensive cor onary artery calcifications are present. There calcified left hilar lymph nodes. No pericardial effus ion. There is cardiomegaly. Moderate to large bilateral pleural effusions are present. There is extensive bilateral lower lobe at electatic change. There is probable partial bilateral upper lobe atelectatic change. Possible minimal pulmonary edema. Images through the upper abdomen reveal no abnormalities. There are worsening erosive changes centered at the T8-T9 disc space, involving the inferior T8 verte bral body and superior T9 vertebral body, with relative widening of the disc space. Impression: Moderate to large bilateral pleural effusions with extensive bibasilar atelectatic changes and possib le minimal pulmonary edema. No definite CT evidence for pneumonia, but underlying pneumonia cannot be completely excluded. Correlate clinically. Progressing erosive changes about the T8-T9 disc space. This could reflect locally advanced severe de generative spondylitic change, versus possibly renal failure associated spondyloarthropathy or infect ious osteomyelitis/discitis. Clinical correlation required. Reviewed, dictated and finalized at [facility]. BALL PAD REPAIRER Impression: Moderate to large bilateral pleural effusions with extensive bibasilar atelecta tic changes and possible minimal pulmonary edema. No definite CT evidence for p neumonia, but underlying pneumonia cannot be completely excluded. Correlate cli nically. Progressing erosive changes about the T8-T9 disc space. This could reflect loca lly advanced severe degenerative spondylitic change, versus possibly renal fail ure associated spondyloarthropathy or infectious osteomyelitis/discitis. Clinic al correlation required.
--- NOTE | ~2024-03-13 | XR_ITS ---
CHEST RADIOGRAPH CLINICAL HISTORY: Left moderate Pleural effusion . COMPARISON: 04/05/2024 at 12:40 AM TECHNIQUE: Single portable view of the chest. FINDINGS Sternal wires and mediastinal clips are identified, the wires are midline and intact. Small bore cath eter originates in the right upper extremity with its tip projecting over the proximal right atrium. Loop recorder projects to the left of midline. The remainder of the cardiomediastinal silhouette is otherwise unremarkable. Decreased left-sided pleural effusion when compared with previous study. The right hemithorax is clear. IMPRESSION: No left-sided pneumothorax following left-sided thoracentesis, as detailed above. Reviewed, dictated and finalized at location A. T MILL SUPERVISOR IMPRESSION: No left-sided pneumothorax following left-sided thoracentesis, as detailed sabi caballero
--- NOTE | ~2024-03-13 | CT_ITS ---
History: Weakness PROCEDURE: CT head without contrast. COMPARISON: 11/07/2023 TECHNIQUE: Axial imaging of the head performed from the skull base to the vertex without IV contrast. Sagittal a nd coronal reformations obtained. DLP: 605 mGy-cm FINDINGS: The ventricles are enlarged. The dilatation of the ventricles is proportional to the degree of sulcal prominence, not uncommon in the senescent brain. Decreased attenuation is identified within the periventricular white matter, likely secondary to micr ovascular ischemic disease, in a patient of this age. There is no mass, mass effect or midline shift. There is no abnormal extra-axial fluid collection or intracranial hemorrhage. Visualized paranasal sinuses are clear. The mastoid air cells are well aerated. No acute displaced fractures within the overlying cranium. Impression: No acute intracranial hemorrhage or suspicious mass effect. Reviewed, dictated and finalized at location A. DEMURRAGE CLERK Impression: No acute intracranial hemorrhage or suspicious mass effect.
--- NOTE | ~2024-03-13 | XR_ITS ---
XR chest 1V portable 04/05/2024 00:43 Indication: PICC line not flushing Procedure: AP portable chest Comparison: Comparison to multiple prior studies sequentially, with oldest reviewed study dated 09/2024. Findings: Status post median sternotomy for CABG. Cardiomegaly. Unchanged pulmonary edema. PICC line tip in the SVC. No pneumothorax. Small left effusion. Impression: 1: Cardiomegaly with unchanged pulmonary edema. Reviewed, dictated and finalized at location A. . JAVA DEVELOPER Impression: 1: Cardiomegaly with unchanged pulmonary edema.
--- NOTE | ~2024-03-13 | XR_ITS ---
Portable chest x-ray Comparison: 03/13/2024 Clinical History: Shortness of breath Findings: There is mild to moderate central pulmonary edema pattern. Cardiomediastinal silhouette i s stable. Bones and soft tissues are unremarkable. Impression: Mild to moderate central pulmonary edema pattern. Reviewed, dictated and finalized at [facility]. LHEAD MAINTENANCE WORKER Impression: Mild to moderate central pulmonary edema pattern.
--- NOTE | ~2024-03-13 | XR_ITS ---
INTRAOPERATIVE FLUOROSCOPY: CLINICAL HISTORY: 74 years old Male; PICC under fluoro PROCEDURE COMMENTS: Limited intraoperative fluoroscopy of the chest was performed. DOSE AREA PRODUCT: 3.6 Gy-cm2 FLUOROSCOPY TIME: 0.05 seconds FINDINGS/IMPRESSION: Please refer to operative note for further details. Reviewed, dictated and finalized at location A. ISSARY SUPERINTENDENT
--- NOTE | ~2024-03-13 | CT_ITS ---
CLINICAL INDICATION: Abdominal pain COMPARISON: 02/15/2024. TECHNIQUE: Multiple contiguous axial images of the abdomen and pelvis were performed following the ad ministration of with 100 mL Omnipaque-350 intravenous contrast The dose-length product (DLP) was 1168.00 mGy-cm. Automated exposure control and iterative reconstruction technique were employed. FINDINGS/OBSERVATIONS: Visualized lower thorax: Bibasilar pleural thickening. Left basilar calcified granuloma. The remainder of the bilateral lung b ases are clear. The heart is enlarged, without pericardial effusion. Large hiatal hernia is present. Liver: Punctate calcifications identified within the hepatic parenchyma, suggesting prior granulomato us disease. The remainder of the liver is unremarkable. Gallbladder and biliary system: The gallbladder is distended, and otherwise unremarkable. Pancreas: The pancreas enhances homogeneously without ductal dilatation. Spleen: : Punctate calcifications identified within the splenic parenchyma, suggesting prior granulom atous disease. The spleen otherwise enhances homogeneously and is not enlarged measuring 8 cm in longitudinal dimens ion. Kidneys: The bilateral kidneys enhance symmetrically without hydronephrosis or obstructing renal calculi. Bila teral renal cysts. Adrenal glands: Unremarkable. Gastrointestinal tract: Fecal stasis within the colon and distending the rectum suggesting fecal impaction. Appendix: The appendix is not definitively visualized. However, no pericecal inflammatory change is identified suggest the presence of acute appendicitis. Vasculature: Bulky calcifications within the abdominal aorta without aneurysmal dilatation or dissection. Lymph nodes: No pathologically enlarged or morphologically suspicious lymph nodes within the retroperitoneum or at the root of the mesentery. Pelvic structures: The bladder is distended, and otherwise unremarkable. The prostate gland is not enlarged. Body wall and musculoskeletal: Significant degenerative disease within the lumbosacral spine, with osteophyte formation, disc space narrowing, endplate changes and vacuum phenomena. Irregularity within the inferior endplate of L3 for which infection cannot be excluded. This finding demonstrates progression from previous examination dated 02/15/2024 for which clinical correlation is needed. IMPRESSION: Large hiatal hernia. Findings within the liver and spleen suggesting prior granulomatous disease. Fecal stasis within the colon and distending the rectum suggesting fecal impaction. Findings at the level of the inferior endplate of L3 which demonstrate progression from previous exam ination, possibly representing discitis/osteomyelitis for which clinical and serologic correlation is needed. Reviewed, dictated and finalized at location A. TY RESEARCH ANALYST IMPRESSION: Large hiatal hernia. Findings within the liver and spleen suggesting prior granulomatous disease. Fecal stasis within the colon and distending the rectum suggesting fecal impact ion. Findings at the level of the inferior endplate of L3 which demonstrate progress ion from previous examination, possibly representing discitis/osteomyelitis for which clinical and serologic correlation is needed.
--- NOTE | ~2024-03-13 | US_ITS ---
EXAMINATION: US thoracentesis DATE: 04/04/2024 15:28 INDICATION: Right-sided pleural effusion TECHNIQUE: The procedure and its risks, benefits, and alternatives were discussed with the patient's son, and informed consent was obtained. A timeout was then performed as per protocol. The skin was prepped and draped in sterile fashion. 1% lidocaine was used for local anesthesia. Under ultrasound guidance, a 5 Fr catheter with trocar was advanced into the right pleural effusion, and the trocar needle removed. The catheter was then attached to vacuum suction. The pleural effusion was evacuated in its entirety. The catheter was then removed, and a sterile dressing was applied. There were no immediate complications. FINDINGS: Ultrasound images demonstrate a right-sided pleural effusion and the catheter within the fluid. IMPRESSION: 1. Successful ultrasound-guided right-sided thoracentesis yielding 850 mL of thin yellow fluid. Reviewed, dictated and finalized at location A. [employer] IMPRESSION: 1. Successful ultrasound-guided right-sided thoracentesis yielding 850 mL of t hin yellow fluid.
--- NOTE | ~2024-03-13 | XR_ITS ---
CHEST RADIOGRAPH CLINICAL HISTORY: Right-sided Thoracentesis . COMPARISON: 04/02/2024 TECHNIQUE: Single portable view of the chest. FINDINGS Sternal wires and mediastinal clips are identified, the wires are midline and intact. Small bore catheter originates in the right upper extremity with its tip projecting over the cavoatri al junction. Loop recorder projecting over the cardiomediastinal silhouette, to the left of midline. The remainder of the cardiomediastinal silhouette is otherwise unremarkable. Decreased right-sided pleural effusion when compared with previous studies. Interval increase in the left-sided pleural effusion when compared with prior examination. The right lung is fully inflated. IMPRESSION: No pneumothorax following right-sided thoracentesis, as detailed above. Interval increase in the left-sided pleural effusion when compared with prior examination. Reviewed, dictated and finalized at location A. ITY CONTROL ENGINEER IMPRESSION: No pneumothorax following right-sided thoracentesis, as detailed above. Interval increase in the left-sided pleural effusion when compared with prior e xamination.
--- NOTE | ~2024-03-13 | US_ITS ---
EXAMINATION: US thoracentesis DATE: 04/05/2024 11:50 INDICATION: pleural effusion and tachypnea TECHNIQUE: The procedure and its risks, benefits, and alternatives were discussed with the patient's son and informed consent was obtained. A timeout was then performed as per protocol. The skin was prepped and draped in sterile fashion. 1% lidocaine was used for local anesthesia. Under ultrasound guidance, a 5 Fr catheter with trocar was advanced into the left-sided pleural effus ion, and the trocar needle removed. The catheter was then attached to vacuum suction. The pleural effusion was aspirated until the patient became symptomatic (complaining of chest pain), at which point the catheter was removed and a sterile dressing applied. The pain resolved without intervention. There were no immediate complications. FINDINGS: Ultrasound images demonstrate a large left-sided pleural effusion. IMPRESSION: 1. Technically successful ultrasound-guided thoracentesis yielding 850 mL of thin, dark yellow fluid. The fluid was sent for the requested studies. Reviewed, dictated and finalized at location A. FILER IMPRESSION: 1. Technically successful ultrasound-guided thoracentesis yielding 850 mL of th in, dark yellow fluid. The fluid was sent for the requested studies.
[2024-03-13 14:03] VITALS: BP 113/65; PULSE 67; RESP 16; TEMP 36.3; O2SAT 100
--- NOTE | 2024-03-13 15:04 | ECG_ITS ---
Test Date: 2024-03-13 16:01:09 Measurements Intervals [place] Rate: 78 P: 0 TX: 0 QRS: -11 QRSD: 202 T: -7 QT: 431 QTc: 492 Interpretive Statements ATRIAL FIBRILLATION Significant baseline artifact precludes accurate interpretation Compared to ECG 12/20/2023 05:41:01 Left bundle-branch block now present ST (T wave) deviation now present Myocardial infarct finding now present T-wave abnormality no longer present Electronically Signed On 03-15-2024 08:48:23 MANAGER HRIS by Armen Sears M.D.
--- NOTE | 2024-03-13 15:25 | PC.NURSE ---
Pt. had 1x BM, brown, small, formed. Dirty depend removed, perineal area cleaned with soap and water, clean depend applied. Pt has one sacral pressure wound with scant amount of yellow d/c and one pressure wound below his R. testicle. New Mepilex applied to wounds 2x after BM. No tunneling. Wounds are clean and dry.
[2024-03-13] MEDS: ACETAMINOPHEN 500 MG TABLET 1000 MG PO (15:37)
[2024-03-13 15:48] LABS: Basophils Absolute Auto 0.1 K/mm3 (0.0-0.1); Basophils Percent Auto 0.5 % (0.2-1.2); Eosinophils Absolute Auto 0.1 K/mm3 (0-0.3); Eosinophils Percent Auto 0.4 % (0-4.4); Hematocrit 34.8 % (42.0-52.0); Hemoglobin 11.3 g/dL (14.0-18.0); Immature Granulocyte Absolute 1.28 K/mm3 (0.00-0.031); Immature Granulocyte Percent A 6.9 % (0-0.5); Lymphocytes Absolute Auto 2.39 K/mm3 (0.9-3.2); Lymphocytes Percent Auto 12.9 % (18.3-44.2); Mean Corpuscular HGB Conc 32.5 g/dl (32-36); Mean Corpuscular Hemoglobin 26.5 pg (26-34); Mean Corpuscular Volume 81.7 fl (80-100); Mean Platelet Volume 9.6 fl (7.4-10.4); Monocytes Percent Auto 5.3 % (2.6-8.5); Neutrophils Absolute Auto 13.7 K/mm3 (1.3-6.7); Nucleated Red Blood Cells Perc 0.2 % (0.0-0.2); Platelet Count Result 500 k/mm3 (150-375); Red Blood Count 4.26 M/mm3 (4.6-6.20); White Blood Count 18.5 K/mm3 (4.5-10.0)
[2024-03-13 16:00] LABS: Alanine Aminotransferase 11 U/L (6-50); Albumin Level 3.9 g/dL (3.5-5.1); Alkaline Phosphatase 134 U/L (38-126); Anion Gap 11 mmol/L (4-12); Aspartate Amino Transferase 27 U/L (17-59); Bilirubin,Total 0.8 mg/dL (0.2-1.3); Blood Urea Nitrogen 38 mg/dL (9-20); Calcium 9.3 mg/dL (8.4-10.2); Carbon Dioxide 27 mmol/L (22-30); Chloride 93 mmol/L (98-107); Estimated CRCL calculation 51 ml/min; Estimated Glomerular Filt Rate > 60; Glucose 180 mg/dL (65-110); Potassium 4.6 mmol/L (3.4-5.0); Sodium 131 mmol/L (137-145)
--- NOTE | 2024-03-13 16:01 | ED.WEAKNESS ---
HPI - Weakness General Chief complaint: Weakness Stated complaint: inability to use legs since woke up Time Seen by Provider: 03/13/24 14:46 History of Present Illness HPI Narrative: 74-year-old male with a past medical history including coronary disease status post CABG, peripheral arterial disease, atrial fibrillation with sick sinus syndrome status post permanent pacemaker placement. He presents from his custodial facility for concerns of generalized weakness. Patient states that he was working physical therapy and occupational therapy today and felt like his legs were giving out on him. Denies any unilateral symptoms, no history of strokes to his knowledge. He states he just completed course of antibiotics for infective endocarditis at the end of last year. He states he has been recovering well. He states he has also been constipated for several days and did have some abdominal distension and tenderness today. Denies any nausea vomiting, chest pain shortness a breath, fever chills. He was otherwise in his normal state of health and denies any new injuries or recent hospital visits otherwise. Related Data Home Medications ?Medication ?Instructions ?Recorded ?Confirmed ?Last Taken ?Type multivitamin with minerals 1 tablet PO DAILY 12/20/23 02/15/24 Unknown History nystatin 100,000 unit/mL oral 100,000 unit PO QID 12/20/23 02/15/24 Unknown History suspension warfarin 2 mg tablet 1 mg PO DAILY 12/20/23 02/15/24 Unknown History Lactobacillus acidophilus 1 cap PO BID 02/15/24 02/15/24 Unknown History aspirin 81 mg chewable tablet 81 mg PO DAILY 02/15/24 02/15/24 Unknown History (Lynnette Chewable Low Dose Aspirin) dabigatran etexilate 150 mg capsule 150 mg PO BID 02/15/24 02/15/24 Unknown History fenofibrate nanocrystallized 145 mg PO HS 02/15/24 02/15/24 Unknown History furosemide 40 mg tablet 40 mg PO DAILY 02/15/24 02/15/24 Unknown History metoprolol tartrate 25 mg tablet 6.25 mg PO Q6H 02/15/24 02/15/24 Unknown History pantoprazole 40 mg granules 40 mg feeding tube DAILY 02/15/24 02/15/24 Unknown History delayed-release for susp in packet polyethylene glycol 3350 17 17 g feeding tube BID 02/15/24 02/15/24 Unknown History gram/dose oral powder potassium chloride 20 mEq oral 20 meq PO DAILY 02/15/24 02/15/24 Unknown History packet (Klor-Con) rosuvastatin 10 mg tablet 10 mg feeding tube HS 02/15/24 02/15/24 Unknown History saxagliptin 5 mg tablet 5 mg PO DAILY 02/15/24 02/15/24 Unknown History sodium chloride 0.9 % 10 ml IV DAILY 02/15/24 02/15/24 Unknown History spironolactone 25 mg tablet 25 mg PO DAILY 02/15/24 02/15/24 Unknown History vancomycin 1.25 gram intravenous 1.25 g IV Q24H 02/15/24 02/15/24 Unknown History solution Allergies Allergy/AdvReac Type Severity Reaction Status Date / Time morphine AdvReac Agitated Verified 02/15/24 07:22 Review of Systems Review of Systems: As reviewed above in HPI [facility] Past Medical History Medical History (Updated 03/13/24 @ 21:54 by Andi Saunders MD) Anticoagulant long-term use Candidiasis of other urogenital sites Anemia Diabetic peripheral neuropathy Rhabdomyolysis Urge urinary incontinence Chronic venous stasis dermatitis of both lower extremities Sick sinus syndrome (04/18/17) SAKSHI on CPAP (03/2019) CPAP of 7 Mixed hyperlipidemia (04/20/17) Essential hypertension Atrial fibrillation (04/20/17) On chronic anticoagulation with warfarin Hemochromatosis However patient's iron studies demonstrate a low iron level (12/2020), normal transferrin (in 2019) and normal hemoglobin and now actually has what appears bandemia chronic disease Obesity (BMI 35.0-39.9 without comorbidity) Pacemaker CAD (coronary artery disease), autologous vein bypass graft Arthritis Diabetes mellitus Erectile dysfunction Peripheral artery disease Surgical History Surgical History Pacemaker (04/2015) Single-chamber MRI compatible pacemaker Hx of CABG (~2004) Four-vessel CABG H/O right heart catheterization Family History Family History Father Acute myocardial infarction Son Family history of obesity Mother Uterine cancer Social History Social History Social History: He has been since 1997 and he he lives in his own home. He ambulates with a walker. His son comes and checks on him daily, and will be his surrogate Diego rosenthal. He is retired from the [employer]. He wishes to be a full code at this time. Smoking packs per day: 2.5 Smoking cigarettes per day: 50.0 Years smoked: 50 Smoking pack-years: 125.00 Smoking status: Former smoker Tobacco type: cigars Smokeless tobacco user: chewing tobacco Second hand tobacco smoke exposure: Yes Alcohol intake: unknown Substance use: unknown Substance use type: marijuana Do You Feel Safe in your Home?: Yes Lack of Transportation: No Lack of Food: Never True Current Housing: I Have Housing Concerned About Future Housing: No Difficulty Paying Gas/Electric Bills: No Difficulty Paying for Meds: No Currently Unemployed: No Education: Don't Know Difficulty w/ Childcare or Family Care: No Living arrangements: alone Occupation/Education: retired 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 Mucous membranes moist. NECK: Supple. CHEST: [Clear to auscultation. No respiratory distress.] HEART: [Regular rate and rhythm]. No murmur heard. [Normal peripheral pulses.] ABDOMEN: Soft but distended, tender to palpation without any focality or signs of peritonitis, [No rigidity or guarding] EXTREMITIES: Normal range of motion. 1+ edema SKIN: Warm, dry, no rash. NEURO: Alert and oriented [x3.] Plantar and dorsiflexion with full 5/5 strength, 3/5 strength in the proximal muscle groups at the hip and knee equal bilaterally. No sensory deficits or ataxia evident, full strength 5/5 in the bilateral upper extremities, no facial asymmetries. PSYCH: [Normal mood and affect.] Course Vital Signs Vital signs: Vital Signs Temperature 36.3 C L 03/13/24 14:03 Pulse Rate 67 03/13/24 14:03 Respiratory Rate 16 03/13/24 14:03 Blood Pressure 113/65 03/13/24 14:03 Pulse Oximetry 100 03/13/24 14:03 Temperature 36.3 C L 03/13/24 14:03 Pulse Rate 75 03/13/24 20:39 Respiratory Rate 16 03/13/24 20:39 Blood Pressure 113/60 03/13/24 20:39 Pulse Oximetry 100 03/13/24 20:39 MDM - Weakness MDM Narrative Medical decision making narrative: 74-year-old male with a past medical history including coronary disease status post CABG, peripheral arterial disease, atrial fibrillation with sick sinus syndrome status post permanent pacemaker placement. Patient presents to the emergency room with a complaint of generalized leg weakness, abdominal distension and some abdominal pain. He has otherwise been doing well at a skilled facility, was working with Physical therapy and Occupational therapy today when he knows that his legs were giving out on him and more weak than usual. No focal or lateral symptoms on his neurological assessment. He has strong symmetric movement of bilateral lower extremities with 5/5 strength. He has have a soft but distended abdomen that is tender to palpation. No fever, chills, hypoxia, tachycardia or blood pressure concerns. He is saturating well on room air. Given his significant comorbidities and risk factors a broad workup was ordered this time. He was given Tylenol for analgesia well workup pending. Suspicion presently is for deconditioning, electrolyte deficiencies, urinary infection, less likely intra-abdominal process or infection however we will obtain CT of the abdomen pelvis with contrast in addition to blood work, CBC, CMP, EKG, urinalysis, chest x-ray. He was placed on continuous pulse oximetry and gambling monitor. Workup shows a leukocytosis of 18.5, hemoglobin 11.3. Platelets of 500. Chemistry panel shows some slight dehydration, BUN 38, creatinine 1.09 consistent with his prior levels. Glucose 180. CMP largely unremarkable. Urinalysis without signs of infection. Chest x-ray shows some cardiomegaly and mild edema interstitially. CT of the abdomen pelvis shows a large hiatal hernia, prior granulomatous disease evidence of the liver and spleen, fecal stasis within the colon and potential fecal impaction. There is also suspicion for an L3 endplate infection consistent with diskitis versus osteomyelitis. Given patient's focal complaints of weakness in his bilateral lower extremities that is more proximally as well as his back pain I am concerned that this is an acute insult and causing his symptomatology today. Neuro surgery was paged and spoken to over the phone with Dr. Mendoza. We went over patient's imaging findings, clinical exam, acute onset weakness and elevations in his inflammatory markers in white count. His formal recommendations were to transfer him to a higher level of care center where they have infectious disease specialists, IR capabilities for biopsy, and neuro surgical services as well. Stated we cannot accept him for admission, surgery, or intervention here based on our facility capabilities. Recommendations for antibiotics and blood cultures. Blood cultures were ordered he was started on vancomycin and Zosyn per guidelines. Who went and re-evaluated the patient who was in agreement with the transfer at this time. He has previously had most of his care at the [facility] and was recently at [facility] for infective endocarditis last year. I reached out to the [facility] transfer system and was connected with the neurosurgeon over at the facility Dr. Mendosa who recommended our neurosurgeon weighing in on operation here secondary to the weakness on his physical exam. I relayed that are neurosurgeon will not operate on the patient and is requesting transfer. The hospitalist team over at the [facility] system was spoken with and patient was accepted as a direct admission to the medicine service under Dr. Carmona. I spoke with Dr. Carmona over the phone regarding patient's care plan, initiation of antibiotics, blood cultures pending, physical exam findings and recommendations from both Surgical teams. They reviewed patient's chart and saw that he was just admitted for infective endocarditis at [facility]. They agreed to accept the patient for a high priority transfer at this time to a higher level of care center at [facility] in [place] under hospitalist Dr. Carmona. I was informed by transfer center that there may be a delay/wait in securing a bed. Will initiate patient's home medications here in the emergency department with plan for boarding until transfer can be secured. If patient has a prolonged stay in the emergency department will attempt to admit to the hospitalist team here pending transfer. Medical Records Attestation: I reviewed the patient's medical records. Lab Data Attestation: I reviewed the patient's lab results. 03/13/24 15:40 03/13/24 15:40 Labs: Lab Results 03/13/24 03/13/24 03/13/24 Range/Units 15:40 16:26 20:02 WBC 18.5 H (4.5-10.0) K/mm3 RBC 4.26 L (4.6-6.20) M/mm3 Hgb 11.3 L (14.0-18.0) g/dL Hct 34.8 L (42.0-52.0) % MCV 81.7 (80-100) fl MCH 26.5 (26-34) pg MCHC 32.5 (32-36) g/dl RDW 18.0 H (11.5-14.5) % Plt Count 500 H D (150-375) k/mm3 MPV 9.6 (7.4-10.4) fl Immature Gran % (Auto) 6.9 H (0-0.5) % Neut % (Auto) 74.0 H (45.5-73.1) % Lymph % (Auto) 12.9 L (18.3-44.2) % [place] % (Auto) 5.3 (2.6-8.5) % Eos % (Auto) 0.4 (0-4.4) % Baso % (Auto) 0.5 (0.2-1.2) % Lymph # (Auto) 2.39 (0.9-3.2) K/mm3 [place] # (Auto) 1.0 H (0.1-0.6) K/mm3 Eos # (Auto) 0.1 (0-0.3) K/mm3 Baso # (Auto) 0.1 (0.0-0.1) K/mm3 Abs Immat Gran (auto) 1.28 H (0.00-0.031) K/mm3 Absolute Neuts (auto) 13.7 H (1.3-6.7) K/mm3 Absolute Nucleated RBC 0.030 H (0.0-0.012) K/mm3 Nucleated RBC % 0.2 (0.0-0.2) % Platelet Estimate Adequate (Adequate) Large Platelets Present Anisocytosis 1+ Schistocytes None seen ESR 80 H (0-20) mm/hr Sodium 131 L (137-145) mmol/L Potassium 4.6 (3.4-5.0) mmol/L Chloride 93 L (98-107) mmol/L Carbon Dioxide 27 (22-30) mmol/L Anion Gap 11 (4-12) mmol/L BUN 38 H D (9-20) mg/dL Creatinine 1.09 (0.7-1.3) mg/dL Estim Creat Clear Calc 51 ml/min Estimated GFR > 60 (59 - ) Glucose 180 H (65-110) mg/dL POC Capillary Glucose (65-105) mg/dl Calcium 9.3 (8.4-10.2) mg/dL Total Bilirubin 0.8 (0.2-1.3) mg/dL AST 27 (17-59) U/L ALT 11 (6-50) U/L Alkaline Phosphatase 134 H (38-126) U/L C-Reactive Protein 26.1 H (<1.0) mg/dL Total Protein 8.0 (6.3-8.2) g/dL Albumin 3.9 (3.5-5.1) g/dL Urine Color Yellow (Yellow) Urine Appearance Clear (Clear) Urine pH 5.0 (5.0-9.0) Ur Specific [place] 1.016 (1.001-1.035) Urine Protein Trace (Negative) mg/dL Urine Glucose (UA) Negative (Negative) mg/dL Urine Ketones Negative (Negative) mg/dL Ur Blood (Man) Negative (Negative) Urine Nitrate Negative (Negative) Urine Bilirubin Negative (Negative) Urine Urobilinogen 0.2 (<2.0) mg/dL Leukocyte Esterase Rfl Negative (Negative) ANNA/UL Urine RBC 0-2 (0-2) /hpf Urine WBC 0-5 (0-3) /hpf Ur Squamous Epith Cells None seen (Few) /hpf Urine Bacteria None seen /hpf Urine Casts 0-2 03/13/24 Range/Units 21:09 WBC (4.5-10.0) K/mm3 RBC (4.6-6.20) M/mm3 Hgb (14.0-18.0) g/dL Hct (42.0-52.0) % MCV (80-100) fl MCH (26-34) pg MCHC (32-36) g/dl RDW (11.5-14.5) % Plt Count (150-375) k/mm3 MPV (7.4-10.4) fl Immature Gran % (Auto) (0-0.5) % Neut % (Auto) (45.5-73.1) % Lymph % (Auto) (18.3-44.2) % [place] % (Auto) (2.6-8.5) % Eos % (Auto) (0-4.4) % Baso % (Auto) (0.2-1.2) % Lymph # (Auto) (0.9-3.2) K/mm3 [place] # (Auto) (0.1-0.6) K/mm3 Eos # (Auto) (0-0.3) K/mm3 Baso # (Auto) (0.0-0.1) K/mm3 Abs Immat Gran (auto) (0.00-0.031) K/mm3 Absolute Neuts (auto) (1.3-6.7) K/mm3 Absolute Nucleated RBC (0.0-0.012) K/mm3 Nucleated RBC % (0.0-0.2) % Platelet Estimate (Adequate) Large Platelets Anisocytosis Schistocytes ESR (0-20) mm/hr Sodium (137-145) mmol/L Potassium (3.4-5.0) mmol/L Chloride (98-107) mmol/L Carbon Dioxide (22-30) mmol/L Anion Gap (4-12) mmol/L BUN (9-20) mg/dL Creatinine (0.7-1.3) mg/dL Estim Creat Clear Calc ml/min Estimated GFR (59 - ) Glucose (65-110) mg/dL POC Capillary Glucose 130 H (65-105) mg/dl Calcium (8.4-10.2) mg/dL Total Bilirubin (0.2-1.3) mg/dL AST (17-59) U/L ALT (6-50) U/L Alkaline Phosphatase (38-126) U/L C-Reactive Protein (<1.0) mg/dL Total Protein (6.3-8.2) g/dL Albumin (3.5-5.1) g/dL Urine Color (Yellow) Urine Appearance (Clear) Urine pH (5.0-9.0) Ur Specific [place] (1.001-1.035) Urine Protein (Negative) mg/dL Urine Glucose (UA) (Negative) mg/dL Urine Ketones (Negative) mg/dL Ur Blood (Man) (Negative) Urine Nitrate (Negative) Urine Bilirubin (Negative) Urine Urobilinogen (<2.0) mg/dL Leukocyte Esterase Rfl (Negative) ANNA/UL Urine RBC (0-2) /hpf Urine WBC (0-3) /hpf Ur Squamous Epith Cells (Few) /hpf Urine Bacteria /hpf Urine Casts Imaging Data Attestation: I personally reviewed and interpreted this imaging study as follows: My impression: Impressions Chest X-Ray 03/13/24 15:57 Impression: 1: Cardiomegaly with mild interstitial edema. Abdomen/Pelvis CT 03/13/24 17:07 IMPRESSION: Large hiatal hernia. Findings within the liver and spleen suggesting prior granulomatous disease. Fecal stasis within the colon and distending the rectum suggesting fecal impaction. Findings at the level of the inferior endplate of L3 which demonstrate progression from previous examination, possibly representing discitis/osteomyelitis for which clinical and serologic correlation is needed. Head CT 03/13/24 19:07 Impression: No acute intracranial hemorrhage or suspicious mass effect. Critical Care Time Critical Care Time Critical Care Time: Yes Total Critical Care Time: 90 Discharge Plan Discharge Clinical Impression: Discitis of lumbar region, Osteomyelitis of lumbar spine, Bilateral leg weakness, History of endocarditis, Constipation Patient Disposition: Acute Care Hospital Condition: Serious Patient Language: Kiswahili Prescriptions: No Action amlodipine [Norvasc] 5 mg Tablet 5 mg PO DAILY Qty: 30 0RF warfarin 2 mg tablet 1 mg PO DAILY Rx Instructions: tuesday, tuesday, tuesday, and tuesday multivitamin with minerals Tablet 1 tablet PO DAILY nystatin 100,000 unit/mL Suspension 100,000 unit PO QID Rx Instructions: Swish and spit insulin aspart U-100 [Novolog U-100 Insulin aspart] 100 unit/mL Solution 4 - 8 unit subcut ACHS 0RF Protocol: Insulin Corrective High-Dose Condition: glucose < 70 mg/dl Dose/Route: Follow hypoglycemia order Condition: glucose 70-200 mg/dl Dose/Route: No additional insulin Condition: glucose 201-250 mg/dl Dose/Route: 4 units sub-Q Condition: glucose 251-300 mg/dl Dose/Route: 5 units sub-Q Condition: glucose 301-350 mg/dl Dose/Route: 6 units sub-Q Condition: glucose 351-400 mg/dl Dose/Route: 8 units sub-Q Condition: glucose > 400 mg/dl Dose/Route: Call Lactobacillus acidophilus [Acidophilus] 1 cap PO BID aspirin [Lynnette Chewable Aspirin] 81 mg tablet,chewable 81 mg PO DAILY dabigatran etexilate 150 mg capsule 150 mg PO BID fenofibrate nanocrystallized tablet 145 mg PO HS furosemide 40 mg tablet 40 mg PO DAILY potassium chloride [Klor-Con] 20 mEq packet 20 meq PO DAILY metoprolol tartrate 25 mg tablet 6.25 mg PO Q6H polyethylene glycol 3350 17 gram/dose powder 17 g feeding tube BID pantoprazole [address] for susp in packet 40 mg feeding tube DAILY rosuvastatin 10 mg tablet 10 mg feeding tube HS saxagliptin 5 mg tablet 5 mg PO DAILY sodium chloride 0.9 % Solution 10 ml IV DAILY Rx Instructions: flush picc before and after ABT dose spironolactone 25 mg tablet 25 mg PO DAILY vancomycin 1.25 gram recon soln 1.25 g IV Q24H Patient Comments: End date of 02/24/24 amoxicillin-pot clavulanate 875-125 mg tablet 1 tablet PO Q12H 4 Days Qty: 8 0RF doxycycline hyclate 100 mg tablet 100 mg PO BID 4 Days Qty: 8 0RF insulin aspart U-100 [Novolog U-100 Insulin aspart] 100 unit/mL Solution 12 unit subcut Q6H Qty: 10 0RF insulin aspart U-100 [Novolog U-100 Insulin aspart] 100 unit/mL Solution 4 - 8 unit subcut Q6H Qty: 10 0RF Protocol: Insulin Corrective High-Dose Condition: glucose < 70 mg/dl Dose/Route: Follow hypoglycemia order Condition: glucose 70-200 mg/dl Dose/Route: No additional insulin Condition: glucose 201-250 mg/dl Dose/Route: 4 units sub-Q Condition: glucose 251-300 mg/dl Dose/Route: 5 units sub-Q Condition: glucose 301-350 mg/dl Dose/Route: 6 units sub-Q Condition: glucose 351-400 mg/dl Dose/Route: 8 units sub-Q Condition: glucose > 400 mg/dl Dose/Route: Call Rx Instructions: BS 201-250= 4 units, 251-300= 5 units, 301-350= 6 units, 351-400= 8 units, above 400 call Follow-up/Referrals: Dominic Recinos MD [Primary Care Provider] - Time of Disposition: 21:54
--- NOTE | 2024-03-13 16:08 | PC.NURSE ---
1st EKG shown to Dr. Saunders. unable to sign d/t artifact. suggested that this RN use another machine to obtain a new EKG. New order placed for 2nd EKG.
--- NOTE | 2024-03-13 16:09 | ECG_ITS ---
Test Date: 2024-03-13 16:15:43 Measurements Intervals [place] Rate: 68 P: 0 MD: 0 QRS: -8 QRSD: 102 T: 45 QT: 434 QTc: 462 Interpretive Statements ATRIAL FIBRILLATION MODERATE ST DEPRESSION [0.05+ mV ST DEPRESSION] Compared to ECG 03/13/2024 16:01:09 ST (T wave) deviation now present Electronically Signed On 03-15-2024 08:48:49 DRIER TAKE OFF TENDER by Armen Sears M.D.
[2024-03-13 16:11] LABS: Platelet Estimate Adequate (Adequate)
[2024-03-13 16:12] LABS: Anisocytosis 1+; Large Platelets Present; Schistocytes None Seen
[2024-03-13 16:46] LABS: Add Urine Microscopic? YES; Appearance Urine Clear (Clear); Bacteria Urine None Seen /hpf; Bilirubin Urine Negative (Negative); Blood Urine Negative (Negative); Color Urine Yellow (Yellow); Glucose Urine UA Negative (Negative); Ketones Urine Negative (Negative); Leukocyte Esterase Ur Negative LEU/UL (Negative); Nitrate Urine Negative (Negative); Non Pathogenic Casts 0-2; Protein Urine Trace mg/dL (Negative); RBC Urine 0-2 /hpf (0-2); Specific Grav Ur 1.016 (1.001-1.035); Squamous Epithelial Cell Urine None Seen /hpf (Few); Urobilinogen Urine 0.2 mg/dL (<2.0); WBC Urine 0-5 /hpf (0-3)
--- NOTE | 2024-03-13 16:46 | PC.NURSE ---
Pt. was a difficult stick and took 3x RNs to get successful IV access. CT notified that pt. now has an IV.
[2024-03-13 18:10] VITALS: BP 109/60; PULSE 64; RESP 16; O2SAT 100
--- NOTE | 2024-03-13 18:12 | PC.NURSE ---
Per Dr. Lang, CT notified that head CT should be completed stat. CT on way to get pt.
--- NOTE | 2024-03-13 19:04 | PC.NURSE ---
lab called to add on esr and c-reactive protein.
[2024-03-13 19:05] VITALS: BP 99/61; PULSE 72; RESP 16; O2SAT 100
--- NOTE | 2024-03-13 19:10 | PC.NURSE ---
Per Dr. Saunders, ok to start antibiotics with only 1 set of blood culture drawn d/t pt. being a difficult stick.
[2024-03-13] MEDS: PIPERACILLN/TAZ 3.375GM/NS50ML 3.375 GM/50 ML BAG IVPB (19:12)
[2024-03-13] MEDS: VANCOMYCIN 1,250 MG/NS 250 ML 1,250 MG/250 ML BAG 166.67 MG IVPB (19:57)
[2024-03-13 20:00] LABS: CRP 26.1 mg/dL (<1.0)
--- NOTE | 2024-03-13 20:34 | PC.NURSE ---
This RN spoke with pt. son Diego Marquez Jr. and gave him an update on plan of care. Pt. stated it was ok to share his health information with his son. This RN also spoke with the [facility] transfer center. Per [facility] cash posting representative, pt. is on the high priority list but it still could be a could of days until he gets a bed.
[2024-03-13 20:37] LABS: Erythrocyte Sedimentation Rate 80 mm/hr (0-20)
[2024-03-13 20:39] VITALS: BP 113/60; PULSE 75; RESP 16; O2SAT 100
[2024-03-13 21:12] LABS: Glucose Point of Care 130 mg/dl (65-105)
--- NOTE | 2024-03-13 21:20 | PC.NURSE ---
D/t pt. waiting in ED to be transferred, Dr. Saunders provided with home med list. Verbal order provided by for home meds he would like pt. to receive while in ED.
[2024-03-13] MEDS: VANCOMYCIN 1,000 MG/NS 250 ML 1,000 MG/250 ML BAG 250 MG IVPB (21:44)
[2024-03-13] MEDS: HYDROcodone/acetaminophen (*CRX) 5-325 MG TABLET 1 TAB PO (21:51)
[2024-03-13] MEDS: LACTATED RINGERS 1,000 ML 999 ML IV CONT (21:52)
[2024-03-13 22:41] VITALS: BP 148/87; PULSE 73; RESP 16; O2SAT 100
--- NOTE | 2024-03-13 22:45 | PC.NURSE ---
Pt. produced 2x large bowel movements. wilman care performed with soap and water. clean mepilex x2 and clean depend applied. Pt. repositioned in bed and provided with clean linens. No additional requests at this time.
--- NOTE | 2024-03-13 23:17 | PC.NURSE ---
Report given to ZI Keenan. All questions answered. RN to assume care at this time.
[2024-03-14] VITALS (21 sets, daily range): BP systolic 96–134; BP diastolic 50–73; PULSE 58–91; RESP 15–22; TEMP 36.6–36.7; O2SAT 95–100
[2024-03-14] MEDS: LACTATED RINGERS 1,000 ML 125 ML IV CONT (01:04)
[2024-03-14] MEDS: HYDROcodone/acetaminophen (*CRX) 5-325 MG TABLET 1 TAB PO ×4 (03:12→22:15)
--- NOTE | 2024-03-14 03:53 | PC.NURSE ---
Assumed care of patient at 0350
[2024-03-14] MEDS: ORPHENADRINE CITRATE 100 MG TABLET.ER PO ×2 (04:21→22:35)
[2024-03-14 06:10] LABS: Basophils Absolute Auto 0.1 K/mm3 (0.0-0.1); Basophils Percent Auto 0.8 % (0.2-1.2); Eosinophils Absolute Auto 0.1 K/mm3 (0-0.3); Eosinophils Percent Auto 0.8 % (0-4.4); Hematocrit 28.6 % (42.0-52.0); Hemoglobin 9.3 g/dL (14.0-18.0); Immature Granulocyte Absolute 1.09 K/mm3 (0.00-0.031); Immature Granulocyte Percent A 7.1 % (0-0.5); Lymphocytes Percent Auto 10.4 % (18.3-44.2); Mean Corpuscular HGB Conc 32.5 g/dl (32-36); Mean Corpuscular Hemoglobin 26.1 pg (26-34); Mean Corpuscular Volume 80.3 fl (80-100); Mean Platelet Volume 9.4 fl (7.4-10.4); Monocytes Absolute Auto 0.9 K/mm3 (0.1-0.6); Monocytes Percent Auto 5.8 % (2.6-8.5); Neutrophils Absolute Auto 11.6 K/mm3 (1.3-6.7); Neutrophils Percent Auto 75.1 % (45.5-73.1); Platelet Count Result 447 k/mm3 (150-375); Red Blood Count 3.56 M/mm3 (4.6-6.20); Red Cell Distribution Width 17.7 % (11.5-14.5); White Blood Count 15.4 K/mm3 (4.5-10.0)
[2024-03-14 06:33] LABS: Anion Gap 4 mmol/L (4-12); Blood Urea Nitrogen 31 mg/dL (9-20); Calcium 8.6 mg/dL (8.4-10.2); Carbon Dioxide 30 mmol/L (22-30); Chloride 97 mmol/L (98-107); Estimated CRCL calculation 59 ml/min; Estimated Glomerular Filt Rate > 60; Glucose 140 mg/dL (65-110); Potassium 4.3 mmol/L (3.4-5.0); Sodium 131 mmol/L (137-145)
[2024-03-14] MEDS: METOPROLOL TARTRATE 6.25 MG TABLET PO ×3 (06:54→19:08)
[2024-03-14 07:07] LABS: Anisocytosis 1+; Hypochromasia 1+; Platelet Estimate Increased (Adequate); Schistocytes None Seen; Tear Drop Cells 1+
--- NOTE | 2024-03-14 07:22 | PC.NURSE ---
Pt's depend changed and mepelex dressings replaced with clean ones. Breakfast tray ordered at this time.
[2024-03-14] MEDS: HYDROmorphone HCL INJ (*CRX) 1 MG/ML SYR 0.5 MG IV PUSH (07:25)
--- NOTE | 2024-03-14 08:36 | PC.NURSE ---
Zuleyka from [facility] transfer center called for update on pt and given full set of vitals. Per Zuleyka, he is still on the waiting list for a bed and they will continue to seek placement and call when a room is available.
[2024-03-14] MEDS: INSULIN ASPART (*BKC) 100 UNITS/ML 12 UNITS SUB-Q ×2 (09:08→12:36)
[2024-03-14] MEDS: MAGNESIUM HYDROXIDE SUSP 30 ML UDC PO (09:12)
[2024-03-14] MEDS: FUROSEMIDE 40 MG TABLET PO (09:19)
[2024-03-14] MEDS: polyethylene glycoL 3350 17 GM POWD.PACK PO ×2 (09:19→18:47)
[2024-03-14] MEDS: DABIGATRAN ETEXILATE 150 MG CAPSULE PO ×2 (09:19→20:40)
[2024-03-14] MEDS: SPIRONOLACTONE 25 MG TABLET PO (09:20)
[2024-03-14 10:24] LABS: Glucose Point of Care 178 mg/dl (65-105)
[2024-03-14] MEDS: methocarbamoL 500 MG TABLET 1000 MG PO (11:50)
[2024-03-14 12:31] LABS: Glucose Point of Care 137 mg/dl (65-105)
[2024-03-14 19:05] LABS: Glucose Point of Care 74 mg/dl (65-105)
[2024-03-14] MEDS: ROSUVASTATIN 10 MG TABLET PO (20:35)
[2024-03-14] MEDS: VANCOMYCIN 1,250 MG/NS 250 ML 1,250 MG/250 ML BAG 166.67 MG IVPB (20:44)
--- NOTE | 2024-03-14 21:11 | PC.NURSE ---
Spoke with Barby for the [facility] transfer center. No bed available yet. Updated on patient status
[2024-03-14 21:45] LABS: Glucose Point of Care 120 mg/dl (65-105)
--- NOTE | 2024-03-14 22:21 | PC.NURSE ---
Patient asking for muscle relaxer-will speak with
--- NOTE | 2024-03-14 22:31 | PC.NURSE ---
2129---Insulin not given as patient doesn't want a snack (didn't eat dinner) and reports that he drops at night
[2024-03-15] VITALS (21 sets, daily range): BP systolic 102–146; BP diastolic 55–74; PULSE 45–68; RESP 13–21; TEMP 36.7–36.9; O2SAT 96–100
[2024-03-15] MEDS: METOPROLOL TARTRATE 6.25 MG TABLET PO ×4 (00:35→19:02)
[2024-03-15] MEDS: HYDROcodone/acetaminophen (*CRX) 5-325 MG TABLET 1 TAB PO ×4 (03:08→21:37)
[2024-03-15 07:03] LABS: Basophils Absolute Auto 0.1 K/mm3 (0.0-0.1); Basophils Percent Auto 0.4 % (0.2-1.2); Eosinophils Absolute Auto 0.2 K/mm3 (0-0.3); Eosinophils Percent Auto 1.3 % (0-4.4); Hematocrit 28.2 % (42.0-52.0); Hemoglobin 8.9 g/dL (14.0-18.0); Immature Granulocyte Absolute 1.24 K/mm3 (0.00-0.031); Immature Granulocyte Percent A 10.5 % (0-0.5); Lymphocytes Absolute Auto 1.58 K/mm3 (0.9-3.2); Lymphocytes Percent Auto 13.4 % (18.3-44.2); Mean Corpuscular HGB Conc 31.6 g/dl (32-36); Mean Corpuscular Hemoglobin 26.4 pg (26-34); Mean Corpuscular Volume 83.7 fl (80-100); Mean Platelet Volume 9.8 fl (7.4-10.4); Monocytes Absolute Auto 0.5 K/mm3 (0.1-0.6); Monocytes Percent Auto 4.6 % (2.6-8.5); Neutrophils Absolute Auto 8.3 K/mm3 (1.3-6.7); Neutrophils Percent Auto 69.8 % (45.5-73.1); Platelet Count Result 396 k/mm3 (150-375); Red Blood Count 3.37 M/mm3 (4.6-6.20); Red Cell Distribution Width 18.2 % (11.5-14.5); White Blood Count 11.8 K/mm3 (4.5-10.0)
--- NOTE | 2024-03-15 07:33 | PC.NURSE ---
This RN took over care of patient. Patient continues to have weakness in bilateral lower extremities. Patient has little effort in holding legs up. Patient states this began a few days ago. Patient denies pain or other complaints. Patient resting in bed at this time
[2024-03-15 07:40] LABS: Anion Gap 3 mmol/L (4-12); Blood Urea Nitrogen 23 mg/dL (9-20); Calcium 8.5 mg/dL (8.4-10.2); Carbon Dioxide 28 mmol/L (22-30); Chloride 97 mmol/L (98-107); Estimated CRCL calculation 62 ml/min; Estimated Glomerular Filt Rate > 60; Glucose 119 mg/dL (65-110); Potassium 4.5 mmol/L (3.4-5.0); Sodium 128 mmol/L (137-145)
[2024-03-15 07:58] LABS: Platelet Estimate Increased (Adequate); Schistocytes None Seen
[2024-03-15 07:59] LABS: Anisocytosis 2+; Hypochromasia 1+
[2024-03-15] MEDS: SPIRONOLACTONE 25 MG TABLET PO (09:00)
[2024-03-15] MEDS: DABIGATRAN ETEXILATE 150 MG CAPSULE PO ×2 (09:00→21:37)
[2024-03-15] MEDS: polyethylene glycoL 3350 17 GM POWD.PACK PO (09:01)
[2024-03-15] MEDS: FUROSEMIDE 40 MG TABLET PO (09:01)
[2024-03-15] MEDS: MAGNESIUM HYDROXIDE SUSP 30 ML UDC PO (09:01)
[2024-03-15 09:04] LABS: Glucose Point of Care 125 mg/dl (65-105)
--- NOTE | 2024-03-15 13:54 | PC.NURSE ---
mal tray delivered to pt at 1350
[2024-03-15 14:23] LABS: Glucose Point of Care 128 mg/dl (65-105)
--- NOTE | 2024-03-15 14:28 | PC.NURSE ---
DAMIEN from Dr. Saunders to hold 12units of SQ insulin with glucose 128 after eating
[2024-03-15 17:18] LABS: Glucose Point of Care 185 mg/dl (65-105)
--- NOTE | 2024-03-15 20:22 | P.HP_ITS ---
H&P: HPI History of Present Illness Date/Time: 03/15/24 20:22 Chief Complaint: Bilateral lower extremity weakness Narrative: This is a 74-year-old male with past medical history significant for coronary artery disease status post coronary artery bypass graft, morbid obesity, peripheral vascular disease, hypertension, insulin-dependent diabetes mellitus, sick sinus syndrome, obstructive sleep apnea on CPAP. Patient recently concluded treatment for endocarditis has been participating in physical therapy at rehabilitation center when he felt bilateral lower extremity weakness preliminary workup was significant for lumbar spine diskitis likely osteomyelitis. Patient is currently awaiting bed at tertiary facility. CLINICAL INDICATION: Abdominal pain COMPARISON: 02/15/2024. TECHNIQUE: Multiple contiguous axial images of the abdomen and pelvis were performed following the administration of with 100 mL Omnipaque-350 intravenous contrast The dose-length product (DLP) was 1168.00 mGy-cm. Automated exposure control and iterative reconstruction technique were employed. FINDINGS/OBSERVATIONS: Visualized lower thorax: Bibasilar pleural thickening. Left basilar calcified granuloma. The remainder of the bilateral lung bases are clear. The heart is enlarged, without pericardial effusion. Large hiatal hernia is present. Liver: Punctate calcifications identified within the hepatic parenchyma, sugg esting prior granulomatous disease. The remainder of the liver is unremarkable. Gallbladder and biliary system: The gallbladder is distended, and otherwise unremarkable. Pancreas: The pancreas enhances homogeneously without ductal dilatation. Spleen: : Punctate calcifications identified within the splenic parenchyma, suggesting prior granulomatous disease. The spleen otherwise enhances homogeneously and is not enlarged measuring 8 cm in longitudinal dimension. Kidneys: The bilateral kidneys enhance symmetrically without hydronephrosis or obstructing renal calculi. Bilateral renal cysts. Adrenal glands: Unremarkable. Gastrointestinal tract: Fecal stasis within the colon and distending the rectum suggesting fecal impaction. Appendix: The appendix is not definitively visualized. However, no pericecal inflammatory change is identified suggest the presence of acute appendicitis. Vasculature: Bulky calcifications within the abdominal aorta without aneurysmal dilatation or dissection. Lymph nodes: No pathologically enlarged or morphologically suspicious lymph nodes within the retroperitoneum or at the root of the mesentery. Pelvic structures: The bladder is distended, and otherwise unremarkable. The prostate gland is not enlarged. Body wall and musculoskeletal: Significant degenerative disease within the lumbosacral spine, with osteophyte formation, disc space narrowing, endplate changes and vacuum phenomena. Irregularity within the inferior endplate of L3 for which infection cannot be excluded. This finding demonstrates progression from previous examination dated 02/15/2024 for which clinical correlation is needed. IMPRESSION: Large hiatal hernia. Findings within the liver and spleen suggesting prior granulomatous disease. Fecal stasis within the colon and distending the rectum suggesting fecal impaction. Findings at the level of the inferior endplate of L3 which demonstrate progression from previous examination, possibly representing discitis/ osteomyelitis for which clinical and serologic correlation is needed. Review of Systems Review of Systems: Back pain, abdominal pain PMFSH Past Medical History Medical History (Updated 03/13/24 @ 21:54 by Andi Saunders MD) Anticoagulant long-term use Candidiasis of other urogenital sites Anemia Diabetic peripheral neuropathy Rhabdomyolysis Urge urinary incontinence Chronic venous stasis dermatitis of both lower extremities Sick sinus syndrome (04/18/17) SAKSHI on CPAP (03/2019) CPAP of 7 Mixed hyperlipidemia (04/20/17) Essential hypertension Atrial fibrillation (04/20/17) On chronic anticoagulation with warfarin Hemochromatosis However patient's iron studies demonstrate a low iron level (12/2020), normal transferrin (in 2019) and normal hemoglobin and now actually has what appears bandemia chronic disease Obesity (BMI 35.0-39.9 without comorbidity) Pacemaker CAD (coronary artery disease), autologous vein bypass graft Arthritis Diabetes mellitus Erectile dysfunction Peripheral artery disease Surgical History Surgical History Pacemaker (04/2015) Single-chamber MRI compatible pacemaker Hx of CABG (~2004) Four-vessel CABG H/O right heart catheterization Family History Family History Father Acute myocardial infarction Son Family history of obesity Mother Uterine cancer Social History Social History Social History: He has been since 1997 and he he lives in his own home. He ambulates with a walker. His son comes and checks on him daily, and will be his surrogate Diego rosenthal. He is retired from the [employer]. He wishes to be a full code at this time. Smoking packs per day: 2.5 Smoking cigarettes per day: 50.0 Years smoked: 50 Smoking pack-years: 125.00 Smoking status: Former smoker Tobacco type: cigars Smokeless tobacco user: chewing tobacco Second hand tobacco smoke exposure: Yes Alcohol intake: never Substance use: never Substance use type: marijuana Do You Feel Safe in your Home?: Yes Lack of Transportation: No Lack of Food: Never True Current Housing: I Have Housing Concerned About Future Housing: No Difficulty Paying Gas/Electric Bills: No Difficulty Paying for Meds: No Currently Unemployed: No Education: High School Diploma/GED Difficulty w/ Childcare or Family Care: No Living arrangements: alone Occupation/Education: retired 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 Gender identity (if verbalized by the patient): Male Sexual Orientation (if Verbalized by the Patient): Straight or Heterosexual Spiritual care concerns: No Agree to blood products: Yes Meds Home Medications and Allergies Home Medications ?Medication ?Instructions ?Recorded ?Confirmed ?Type insulin aspart U-100 100 unit/mL 12 unit (0.12 mL) subcut Q6H #10 mL 11/11/23 03/15/24 Rx subcutaneous solution (Novolog U-100 Insulin aspart) multivitamin with minerals 1 tablet PO DAILY 12/20/23 03/15/24 History nystatin 100,000 unit/mL oral 100,000 unit PO QID 12/20/23 03/15/24 History suspension insulin aspart U-100 100 unit/mL 4 - 8 unit subcut ACHS 12/28/23 03/15/24 Rx subcutaneous solution (Novolog U-100 Insulin aspart) Lactobacillus acidophilus 1 cap PO BID 02/15/24 03/15/24 History aspirin 81 mg chewable tablet 81 mg PO DAILY 02/15/24 03/15/24 History (Lynnette Chewable Low Dose Aspirin) dabigatran etexilate 150 mg capsule 150 mg PO BID 02/15/24 03/15/24 History fenofibrate nanocrystallized 145 mg PO HS 02/15/24 03/15/24 History furosemide 40 mg tablet 40 mg PO DAILY 02/15/24 03/15/24 History metoprolol tartrate 25 mg tablet 6.25 mg PO Q6H 02/15/24 03/15/24 History pantoprazole 40 mg granules 40 mg feeding tube DAILY 02/15/24 03/15/24 History delayed-release for susp in packet polyethylene glycol 3350 17 17 g feeding tube BID 02/15/24 03/15/24 History gram/dose oral powder potassium chloride 20 mEq oral 20 meq PO DAILY 02/15/24 03/15/24 History packet (Klor-Con) rosuvastatin 10 mg tablet 10 mg feeding tube HS 02/15/24 03/15/24 History saxagliptin 5 mg tablet 5 mg PO DAILY 02/15/24 03/15/24 History spironolactone 25 mg tablet 25 mg PO DAILY 02/15/24 03/15/24 History vancomycin 1.25 gram intravenous 1.25 g IV Q24H 02/15/24 02/15/24 History solution acetaminophen 500 mg capsule 1,000 mg PO Q8H PRN fever or pain 03/15/24 03/15/24 History Allergies Allergy/AdvReac Type Severity Reaction Status Date / Time morphine AdvReac Agitated Verified 02/15/24 07:22 Vital Signs Vital Signs - 24 hr 03/14/24 22:00 03/14/24 23:24 03/15/24 00:35 Temperature Pulse Rate 67 60 64 Respiratory Rate 20 15 Blood Pressure 122/50 L 122/50 L Pulse Oximetry 100 100 Oxygen Delivery 03/15/24 00:38 03/15/24 02:20 03/15/24 04:36 Temperature Pulse Rate 62 61 57 L Respiratory Rate 18 15 18 Blood Pressure 102/55 L 106/59 L 110/58 L Pulse Oximetry 100 97 97 Oxygen Delivery 03/15/24 05:46 03/15/24 06:47 03/15/24 06:57 Temperature Pulse Rate 60 68 64 Respiratory Rate 18 18 Blood Pressure 110/58 L 118/74 Pulse Oximetry 98 96 Oxygen Delivery 03/15/24 07:35 03/15/24 09:07 03/15/24 11:36 Temperature 98.1 F Pulse Rate 64 68 65 Respiratory Rate 19 18 19 Blood Pressure 106/68 107/57 L Pulse Oximetry 100 97 Oxygen Delivery 03/15/24 12:50 03/15/24 13:17 03/15/24 13:25 Temperature Pulse Rate 63 62 62 Respiratory Rate 15 21 H Blood Pressure Pulse Oximetry Oxygen Delivery 03/15/24 13:31 03/15/24 14:42 03/15/24 14:45 Temperature Pulse Rate 64 63 62 Respiratory Rate 20 18 13 Blood Pressure 110/71 Pulse Oximetry 97 97 Oxygen Delivery 03/15/24 16:00 03/15/24 16:00 03/15/24 16:00 Temperature 98.5 F Pulse Rate 60 60 Respiratory Rate 20 Blood Pressure 121/61 Pulse Oximetry 99 Oxygen Delivery Room Air 03/15/24 18:00 Temperature Pulse Rate 62 Respiratory Rate Blood Pressure Pulse Oximetry Oxygen Delivery Exam Narrative: Laying in bed Const: General: comfortable, no acute distress, well developed, alert, awake, ill appearing chronically and obese Nutritional Appearance: obese Orientation/consciousness: patient oriented x3 Other: Generalized pallor HENMT: Head: normal to inspection, normocephalic and atraumatic Ears: hearing grossly normal bilaterally Face/Nose/Sinus: normal facial exam Face and sinus: normal facial exam Eyes: General: appearance normal, both eyes and all related structures Pupils: Equal, round and reactive pupils present EOM: EOMs intact bilaterally Neck: Neck: full ROM, no lymphadenopathy and no JVD Thyroid: thyroid normal Lymphatic: no lymphadenopathy noted Resp: Effort & Inspection: normal respiratory effort and able to speak in complete sentences Auscultation: clear to auscultation bilaterally Cardio: Jugular venous distension: no JVD Rate: regular rate Rhythm: regular rhythm Heart sounds: S1 normal heart sound present and S2 normal heart sound present GI: Inspection: Pannus present and obesity GI Palp: Yes Soft to palpation and Yes No hepatosplenomegaly present : General: Yes deferred Skin: Rashes: no rashes Wounds: no wounds Neuro: General: patient oriented x3 and CN's II-XI intact bilaterally Cranial nerves: Yes CN's II-XII intact bilaterally and Yes Equal, round and reactive pupils present Cognition (Neuro): normal cognition Speech: normal speech Gait exam (Neuro): Unable to assess gait Motor exam (neuro): 5/5 motor strength present throughout Extrem: General: normal to inspection, full ROM, no joint enlargement and no pedal edema H&P: Results Labs Labs: Short CBC 03/15/24 Range/Units 06:43 WBC 11.8 H (4.5-10.0) K/mm3 Hgb 8.9 L (14.0-18.0) g/dL Hct 28.2 L (42.0-52.0) % Plt Count 396 H (150-375) k/mm3 [facility] 03/15/24 03/15/24 06:43 07:25 Sodium 128 L Potassium 4.5 Chloride 97 L Carbon Dioxide 28 BUN 23 H Creatinine Cancelled 0.88 Glucose 119 H Calcium 8.5 Assessment and Plan Assessment and plan (1) Osteomyelitis of lumbar spine: Code(s): M46.26 - Osteomyelitis of vertebra, lumbar region Status: Acute Assessment and Plan: Patient awaiting bed at tertiary facility Continue Zosyn and vancomycin (2) Hypertension: Code(s): I10 - Essential (primary) hypertension Status: Acute Assessment and Plan: Continue home meds (3) Diastolic heart failure: Code(s): I50.30 - Unspecified diastolic (congestive) heart failure Status: Acute Assessment and Plan: Daily intake and output (4) CAD (coronary artery disease), autologous vein bypass graft: Code(s): I25.810 - Atherosclerosis of coronary artery bypass graft(s) without angina pectoris Status: Acute Assessment and Plan: Chest pain-free (5) Atrial fibrillation: Onset Date: 04/20/17 Code(s): I48.91 - Unspecified atrial fibrillation Status: Chronic Assessment and Plan: Rate controlled and anticoagulated (6) Type 2 diabetes mellitus with hyperglycemia, with long-term current use of insulin: Code(s): E11.65 - Type 2 diabetes mellitus with hyperglycemia; Z79.4 - intermediate manager (current) use of insulin Status: Acute Assessment and Plan: Continue insulin Holding sitagliptin (7) Physical deconditioning: Code(s): R53.81 - Other malaise Status: Acute Assessment and Plan: PT OT when clinically able to participate Hospitalist [facility] Advance Care Plan I have confirmed that the patient's Advanced Care Plan is present, code status is documented, or surrogate decision maker is listed in patient medical record.: Yes Medication Reconciliation I have utilized all available resources to obtain, update and review the patients current medications (includes all prescriptions, OTC, herbals, cannabis, and nutritional supplements).: Yes
[2024-03-15 20:49] LABS: Glucose Point of Care 194 mg/dl (65-105)
[2024-03-15 20:58] LABS: Vancomycin Trough 14.3 ug/mL (10.0-20.0)
[2024-03-15] MEDS: VANCOMYCIN 1,500 MG/NS 500 ML 1,500 MG/500 ML BAG 250 MG IVPB (21:37)
[2024-03-15] MEDS: ROSUVASTATIN 10 MG TABLET PO (21:37)
[2024-03-16] VITALS (20 sets, daily range): BP systolic 104–157; BP diastolic 42–83; PULSE 48–80; RESP 18–20; TEMP 36.3–36.7; O2SAT 96–100; BMI 29.5
[2024-03-16] MEDS: HYDROcodone/acetaminophen (*CRX) 5-325 MG TABLET 1 TAB PO ×4 (04:20→21:24)
[2024-03-16 07:28] LABS: Basophils Absolute Auto 0.1 K/mm3 (0.0-0.1); Basophils Percent Auto 0.7 % (0.2-1.2); Eosinophils Absolute Auto 0.1 K/mm3 (0-0.3); Eosinophils Percent Auto 0.7 % (0-4.4); Hematocrit 29.6 % (42.0-52.0); Immature Granulocyte Absolute 1.03 K/mm3 (0.00-0.031); Immature Granulocyte Percent A 7.8 % (0-0.5); Lymphocytes Absolute Auto 1.47 K/mm3 (0.9-3.2); Lymphocytes Percent Auto 11.2 % (18.3-44.2); Mean Corpuscular HGB Conc 30.4 g/dl (32-36); Mean Corpuscular Hemoglobin 25.7 pg (26-34); Mean Corpuscular Volume 84.6 fl (80-100); Mean Platelet Volume 9.7 fl (7.4-10.4); Monocytes Absolute Auto 0.7 K/mm3 (0.1-0.6); Monocytes Percent Auto 5.3 % (2.6-8.5); Neutrophils Absolute Auto 9.8 K/mm3 (1.3-6.7); Neutrophils Percent Auto 74.3 % (45.5-73.1); Platelet Count Result 448 k/mm3 (150-375); Red Cell Distribution Width 18.1 % (11.5-14.5); White Blood Count 13.2 K/mm3 (4.5-10.0)
[2024-03-16 07:48] LABS: Anion Gap 5 mmol/L (4-12); Blood Urea Nitrogen 23 mg/dL (9-20); Calcium 8.6 mg/dL (8.4-10.2); Carbon Dioxide 31 mmol/L (22-30); Chloride 94 mmol/L (98-107); Estimated CRCL calculation 64 ml/min; Estimated Glomerular Filt Rate > 60; Glucose 170 mg/dL (65-110); Potassium 4.8 mmol/L (3.4-5.0); Sodium 130 mmol/L (137-145)
[2024-03-16 08:16] LABS: Anisocytosis 2+; Hypochromasia 1+; Platelet Estimate Increased (Adequate); Polychromasia 1+; Schistocytes None Seen
[2024-03-16 08:29] LABS: Glucose Point of Care 162 mg/dl (65-105)
[2024-03-16] MEDS: ACIDOPHILUS/BULGARICUS CHEWABLE TABLET 1 TABLET PO ×2 (08:29→16:35)
[2024-03-16] MEDS: DABIGATRAN ETEXILATE 150 MG CAPSULE PO ×2 (08:30→21:24)
[2024-03-16] MEDS: ASPIRIN 81 MG CHEWABLE TABLET PO (08:30)
[2024-03-16] MEDS: polyethylene glycoL 3350 17 GM POWD.PACK FEED TUBE ×2 (08:31→16:35)
[2024-03-16] MEDS: MAGNESIUM HYDROXIDE SUSP 30 ML UDC PO (08:35)
[2024-03-16 11:43] LABS: Glucose Point of Care 159 mg/dl (65-105)
[2024-03-16] MEDS: BISACODYL 5 MG TABLET EC PO (15:24)
[2024-03-16 16:12] LABS: Glucose Point of Care 168 mg/dl (65-105)
--- NOTE | 2024-03-16 17:50 | P.PNIM_ITS ---
Progress Note: A&P Assessment and Plan (1) Osteomyelitis of lumbar spine: Code(s): M46.26 - Osteomyelitis of vertebra, lumbar region Status: Acute Assessment and Plan: Patient awaiting bed at tertiary facility Continue Zosyn and vancomycin (2) Hypertension: Code(s): I10 - Essential (primary) hypertension Status: Acute Assessment and Plan: Continue home meds (3) Diastolic heart failure: Code(s): I50.30 - Unspecified diastolic (congestive) heart failure Status: Acute Assessment and Plan: Daily intake and output (4) CAD (coronary artery disease), autologous vein bypass graft: Code(s): I25.810 - Atherosclerosis of coronary artery bypass graft(s) without angina pectoris Status: Acute Assessment and Plan: Chest pain-free (5) Atrial fibrillation: Onset Date: 04/20/17 Code(s): I48.91 - Unspecified atrial fibrillation Status: Chronic Assessment and Plan: Rate controlled and anticoagulated (6) Type 2 diabetes mellitus with hyperglycemia, with long-term current use of insulin: Code(s): E11.65 - Type 2 diabetes mellitus with hyperglycemia; Z79.4 - correction (current) use of insulin Status: Acute Assessment and Plan: Continue insulin Holding sitagliptin (7) Physical deconditioning: Code(s): R53.81 - Other malaise Status: Acute Assessment and Plan: PT OT when clinically able to participate Plan MRSA bacteremia likely likely from Diskitis/osteomyelitis Blood culture positive MRSA and repeat blood culture pending patient recently managed for MRSA endocarditis Contnue ZOsyn and Vanc Continue with transfer to [facility] DVT prophylaxis on Dabigatran Awaiting transfer Subjective Date/time seen: 03/16/24 17:50 Interval history: Patient comfortable at bedside and awaiting transfer Review of Systems Review of Systems: Back pain, abdominal pain Exam Narrative: Laying in bed Const: General: comfortable, no acute distress, well developed, alert, awake, ill appearing chronically and obese Nutritional Appearance: obese Orientation/consciousness: patient oriented x3 Other: Generalized pallor HENMT: Head: normal to inspection, normocephalic and atraumatic Ears: hearing grossly normal bilaterally Face/Nose/Sinus: normal facial exam Face and sinus: normal facial exam Eyes: General: appearance normal, both eyes and all related structures Pupils: Equal, round and reactive pupils present EOM: EOMs intact bilaterally Neck: Neck: full ROM, no lymphadenopathy and no JVD Thyroid: thyroid normal Lymphatic: no lymphadenopathy noted Resp: Effort & Inspection: normal respiratory effort and able to speak in complete sentences Auscultation: clear to auscultation bilaterally Cardio: Jugular venous distension: no JVD Rate: regular rate Rhythm: regular rhythm Heart sounds: S1 normal heart sound present and S2 normal hea rt sound present GI: Inspection: Pannus present and obesity : General: Yes deferred Skin: Rashes: no rashes Wounds: no wounds Neuro: General: patient oriented x3, CN's II-XI intact bilaterally and Unable to assess gait Cranial nerves: Yes CN's II-XII intact bilaterally and Yes Equal, round and reactive pupils present Cognition (Neuro): normal cognition Speech: normal speech Gait exam (Neuro): Unable to assess gait Motor exam (neuro): 5/5 motor strength present throughout Extrem: General: normal to inspection, full ROM, no joint enlargement and no pedal edema Objective Data Vital Signs Vital Signs: Vital Signs - 24 hr 03/15/24 18:00 03/15/24 20:00 03/15/24 20:00 Temperature Pulse Rate 62 58 L 58 L Respiratory Rate 20 Blood Pressure Pulse Oximetry 96 Oxygen Delivery Room Air 03/15/24 20:22 03/15/24 22:00 03/16/24 00:00 Temperature 98.2 F Pulse Rate 58 L 45 L 48 L Respiratory Rate 20 20 Blood Pressure 146/58 H Pulse Oximetry 100 96 Oxygen Delivery Room Air 03/16/24 00:00 03/16/24 00:22 03/16/24 01:55 Temperature 98.1 F Pulse Rate 48 L 80 64 Respiratory Rate 20 Blood Pressure 157/74 H Pulse Oximetry 96 Oxygen Delivery 03/16/24 04:00 03/16/24 04:00 03/16/24 05:40 Temperature 97.6 F Pulse Rate 56 L 56 L 66 Respiratory Rate 20 20 Blood Pressure 132/67 Pulse Oximetry 96 97 Oxygen Delivery Room Air 03/16/24 06:00 03/16/24 07:20 03/16/24 08:00 Temperature 97.5 F L Pulse Rate 48 L 62 59 L Respiratory Rate 18 Blood Pressure 108/83 Pulse Oximetry 99 Oxygen Delivery 03/16/24 10:00 03/16/24 11:33 03/16/24 12:00 Temperature 97.3 F L Pulse Rate 58 L 55 L 63 Respiratory Rate 18 Blood Pressure 123/55 L Pulse Oximetry 98 Oxygen Delivery 03/16/24 12:58 03/16/24 13:40 03/16/24 16:00 Temperature 98.1 F Pulse Rate 57 L 63 58 L Respiratory Rate 20 Blood Pressure 122/61 Pulse Oximetry 98 Oxygen Delivery 03/16/24 16:00 03/16/24 16:00 Temperature Pulse Rate 61 Respiratory Rate Blood Pressure Pulse Oximetry Oxygen Delivery Room Air Intake/Output Intake/Output: Intake & Output 03/13/24 03/14/24 03/15/24 03/16/24 23:59 23:59 23:59 23:59 Intake Total 550 2250 360 2030 Output Total 650 1350 1950 Balance 550 1600 -990 80 Meds/Results Medications: Active Medications Generic Name Dose Route Start Last Admin Trade Name Freq PRN Reason Stop Dose Admin Acetaminophen 1,000 mg 03/16/24 02:11 Acetaminophen 500 Mg Tablet PO Q8H PRN fever or pain Hydrocodone Bitart/Acetaminophen 1 tab 03/13/24 21:00 03/16/24 15:21 Hydrocodone/Acetaminophen (*Crx) 5-325 Mg Tablet PO 1 tab Q6H SUNNY Administration Aspirin 81 mg 03/16/24 08:00 03/16/24 08:30 Aspirin 81 Mg Chewable Tablet PO 81 mg DAILY@0800 SUNNY Administration Dabigatran 150 mg 03/16/24 09:00 03/16/24 08:30 Dabigatran Etexilate 150 Mg Capsule PO 150 mg Q12HR SUNNY Administration Dextrose 12.5 gm 03/13/24 21:39 Dextrose 50% 25 Gm/50 Ml Syringe IV PUSH PRN PRN Hypoglycemia Protocol Fenofibrate 145 mg 03/16/24 21:00 Fenofibrate Nanocrystallized 145 Mg Tablet PO QHS SUNNY Glucagon 1 mg 03/13/24 21:39 Glucagon For Inj 1 Mg Vial IM PRN PRN Hypoglycemia Protocol Glucose 15 gm 03/13/24 21:39 Glucose Oral Gel 15 Gm Of Glucse In 37.5 Gm Tube PO PRN PRN Hypoglycemia Protocol Dextrose 1,000 mls @ 100 mls/hr 03/13/24 21:39 Dextrose 5% 1,000 Ml IVPB PRN PRN Hypoglycemia Protocol Vancomycin HCl 1,500 mg in 500 mls @ 250 mls/hr 03/15/24 22:00 03/16/24 00:08 Vancomycin 1,500 Mg/Ns 500 Ml IVPB Infused Q24H [facility] Infusion Insulin Aspart 4 - 8 units 03/16/24 06:30 03/16/24 16:36 Insulin Aspart (*Bkc) 100 Units/Ml SUB-Q Not Given ACHS [facility] Protocol Insulin Aspart 12 units 03/16/24 06:00 03/16/24 17:30 Insulin Aspart (*Bkc) 100 Units/Ml SUB-Q Not Given Q6HR SUNNY Lactobacillus Acidophilus 1 tablet 03/16/24 09:00 03/16/24 16:35 Acidophilus/Bulgaricus Chewable Tablet PO 1 tablet BID SUNNY Administration Magnesium Hydroxide 30 ml 03/14/24 09:00 03/16/24 08:35 Magnesium Hydroxide Susp 30 Ml Udc PO 30 ml QAM SUNNY Administration Metoprolol Tartrate 6.25 mg 03/16/24 06:00 03/16/24 12:58 Metoprolol Tartrate 6.25 Mg Tablet PO Not Given Q6HR SUNNY Orphenadrine Citrate 100 mg 03/14/24 22:24 03/14/24 22:35 Orphenadrine Citrate 100 Mg Tablet.Er PO 100 mg Q12HR PRN Administration Muscle Spasm Polyethylene Glycol 17 gm 03/16/24 09:00 03/16/24 16:35 Polyethylene Glycol 3350 17 Gm Powd.Pack FEED TUBE 17 gm BID SUNNY Administration Rosuvastatin Calcium 10 mg 03/14/24 21:00 03/15/24 21:37 Rosuvastatin 10 Mg Tablet PO 10 mg BEDTIME SUNNY Administration Radiology Results: ITS Impressions Chest X-Ray 03/13/24 15:57 Impression: 1: Cardiomegaly with mild interstitial edema. Abdomen/Pelvis CT 03/13/24 17:07 IMPRESSION: Large hiatal hernia. Findings within the liver and spleen suggesting prior granulomatous disease. Fecal stasis within the colon and distending the rectum suggesting fecal impaction. Findings at the level of the inferior endplate of L3 which demonstrate progression from previous examination, possibly representing discitis/osteomyelitis for which clinical and serologic correlation is needed. Head CT 03/13/24 19:07 Impression: No acute intracranial hemorrhage or suspicious mass effect. Labs Labs: Laboratory Results - last 24 hr 03/15/24 03/15/24 03/16/24 19:15 20:15 06:48 WBC 13.2 H RBC 3.50 L Hgb 9.0 L Hct 29.6 L MCV 84.6 MCH 25.7 L MCHC 30.4 L RDW 18.1 H Plt Count 448 H MPV 9.7 Immature Gran % (Auto) 7.8 H Neut % (Auto) 74.3 H Lymph % (Auto) 11.2 L [place] % (Auto) 5.3 Eos % (Auto) 0.7 Baso % (Auto) 0.7 Lymph # (Auto) 1.47 [place] # (Auto) 0.7 H Eos # (Auto) 0.1 Baso # (Auto) 0.1 Abs Immat Gran (auto) 1.03 H Absolute Neuts (auto) 9.8 H Absolute Nucleated RBC 0.000 Nucleated RBC % 0.0 Platelet Estimate Increased Polychromasia 1+ Hypochromasia 1+ Anisocytosis 2+ Schistocytes None seen Sodium 130 L Potassium 4.8 Chloride 94 L Carbon Dioxide 31 H Anion Gap 5 BUN 23 H Creatinine 0.85 Estim Creat Clear Calc 64 Estimated GFR > 60 Glucose 170 H POC Capillary Glucose 194 H Calcium 8.6 Vancomycin Trough 14.3 03/16/24 03/16/24 03/16/24 08:25 11:34 16:08 WBC RBC Hgb Hct MCV MCH MCHC RDW Plt Count MPV Immature Gran % (Auto) Neut % (Auto) Lymph % (Auto) [place] % (Auto) Eos % (Auto) Baso % (Auto) Lymph # (Auto) [place] # (Auto) Eos # (Auto) Baso # (Auto) Abs Immat Gran (auto) Absolute Neuts (auto) Absolute Nucleated RBC Nucleated RBC % Platelet Estimate Polychromasia Hypochromasia Anisocytosis Schistocytes Sodium Potassium Chloride Carbon Dioxide Anion Gap BUN Creatinine Estim Creat Clear Calc Estimated GFR Glucose POC Capillary Glucose 162 H 159 H 168 H Calcium Vancomycin Trough
[2024-03-16 20:37] LABS: Glucose Point of Care 203 mg/dl (65-105)
[2024-03-16] MEDS: FENOFIBRATE NANOCRYSTALLIZED 145 MG TABLET PO (21:24)
[2024-03-16] MEDS: VANCOMYCIN 1,500 MG/NS 500 ML 1,500 MG/500 ML BAG 250 MG IVPB (21:24)
[2024-03-16] MEDS: ROSUVASTATIN 10 MG TABLET PO (21:24)
[2024-03-16] MEDS: INSULIN ASPART (*BKC) 100 UNITS/ML SUB-Q (21:25)
[2024-03-17] VITALS (24 sets, daily range): BP systolic 92–131; BP diastolic 39–54; PULSE 46–72; RESP 20; TEMP 36.4–36.7; O2SAT 97–100
[2024-03-17 04:31] LABS: Basophils Absolute Auto 0.1 K/mm3 (0.0-0.1); Basophils Percent Auto 0.5 % (0.2-1.2); Eosinophils Absolute Auto 0.2 K/mm3 (0-0.3); Eosinophils Percent Auto 1.4 % (0-4.4); Hematocrit 28.6 % (42.0-52.0); Hemoglobin 8.9 g/dL (14.0-18.0); Immature Granulocyte Absolute 0.94 K/mm3 (0.00-0.031); Immature Granulocyte Percent A 6.8 % (0-0.5); Lymphocytes Absolute Auto 1.64 K/mm3 (0.9-3.2); Lymphocytes Percent Auto 11.8 % (18.3-44.2); Mean Corpuscular HGB Conc 31.1 g/dl (32-36); Mean Corpuscular Volume 83.6 fl (80-100); Mean Platelet Volume 9.5 fl (7.4-10.4); Monocytes Absolute Auto 0.9 K/mm3 (0.1-0.6); Monocytes Percent Auto 6.3 % (2.6-8.5); Neutrophils Absolute Auto 10.2 K/mm3 (1.3-6.7); Neutrophils Percent Auto 73.2 % (45.5-73.1); Platelet Count Result 417 k/mm3 (150-375); Red Blood Count 3.42 M/mm3 (4.6-6.20); Red Cell Distribution Width 17.6 % (11.5-14.5); White Blood Count 13.9 K/mm3 (4.5-10.0)
[2024-03-17] MEDS: HYDROcodone/acetaminophen (*CRX) 5-325 MG TABLET 1 TAB PO ×4 (04:36→21:25)
[2024-03-17 04:47] LABS: Alanine Aminotransferase 10 U/L (6-50); Albumin Level 2.9 g/dL (3.5-5.1); Alkaline Phosphatase 96 U/L (38-126); Anion Gap 3 mmol/L (4-12); Aspartate Amino Transferase 34 U/L (17-59); Bilirubin,Total 0.4 mg/dL (0.2-1.3); Blood Urea Nitrogen 19 mg/dL (9-20); Calcium 8.5 mg/dL (8.4-10.2); Carbon Dioxide 30 mmol/L (22-30); Chloride 96 mmol/L (98-107); Estimated CRCL calculation 64 ml/min; Estimated Glomerular Filt Rate > 60; Glucose 166 mg/dL (65-110); Magnesium 2.5 mg/dL (1.6-2.3); Potassium 5.3 mmol/L (3.4-5.0); Sodium 129 mmol/L (137-145)
[2024-03-17 05:13] LABS: Anisocytosis 1+; Hypochromasia 1+; Platelet Estimate Increased (Adequate)
[2024-03-17 05:19] LABS: Schistocytes None Seen
--- NOTE | 2024-03-17 06:00 | PCRCNOTE ---
pt refused use of hospital cpap/bipap and stated that he no longer uses his home unit.
[2024-03-17 07:38] LABS: Glucose Point of Care 171 mg/dl (65-105)
[2024-03-17] MEDS: ASPIRIN 81 MG CHEWABLE TABLET PO (09:14)
[2024-03-17] MEDS: DABIGATRAN ETEXILATE 150 MG CAPSULE PO ×2 (09:14→21:25)
[2024-03-17] MEDS: MAGNESIUM HYDROXIDE SUSP 30 ML UDC PO (09:14)
[2024-03-17] MEDS: ACIDOPHILUS/BULGARICUS CHEWABLE TABLET 1 TABLET PO ×2 (09:14→18:53)
[2024-03-17] MEDS: polyethylene glycoL 3350 17 GM POWD.PACK FEED TUBE ×2 (09:15→18:53)
[2024-03-17 11:49] LABS: Glucose Point of Care 199 mg/dl (65-105)
[2024-03-17] MEDS: INSULIN ASPART (*BKC) 100 UNITS/ML 12 UNITS SUB-Q (12:05)
[2024-03-17] MEDS: METOPROLOL TARTRATE 6.25 MG TABLET PO ×3 (12:06→23:29)
--- NOTE | 2024-03-17 12:37 | P.PNIM_ITS ---
Progress Note: A&P Assessment and Plan (1) Osteomyelitis of lumbar spine: Code(s): M46.26 - Osteomyelitis of vertebra, lumbar region Status: Acute Assessment and Plan: Patient awaiting bed at tertiary facility Continue Zosyn and vancomycin (2) Hypertension: Code(s): I10 - Essential (primary) hypertension Status: Acute Assessment and Plan: Continue home meds (3) Diastolic heart failure: Code(s): I50.30 - Unspecified diastolic (congestive) heart failure Status: Acute Assessment and Plan: Daily intake and output (4) CAD (coronary artery disease), autologous vein bypass graft: Code(s): I25.810 - Atherosclerosis of coronary artery bypass graft(s) without angina pectoris Status: Acute Assessment and Plan: Chest pain-free (5) Atrial fibrillation: Onset Date: 04/20/17 Code(s): I48.91 - Unspecified atrial fibrillation Status: Chronic Assessment and Plan: Rate controlled and anticoagulated (6) Type 2 diabetes mellitus with hyperglycemia, with long-term current use of insulin: Code(s): E11.65 - Type 2 diabetes mellitus with hyperglycemia; Z79.4 - MCFP (current) use of insulin Status: Acute Assessment and Plan: Continue insulin Holding sitagliptin (7) Physical deconditioning: Code(s): R53.81 - Other malaise Status: Acute Assessment and Plan: PT OT when clinically able to participate Plan MRSA bacteremia likely likely from Diskitis/osteomyelitis Blood culture positive MRSA and repeat blood culture pending patient recently managed for MRSA endocarditis Contnue ZOsyn and Vanc Continue with transfer to [facility] DVT prophylaxis on Dabigatran Awaiting transfer Subjective Date/time seen: 03/17/24 12:37 Interval history: Patient comfortable at bedside and awaiting transfer Blood culture positive for MrSA, repeat blood culture pending Review of Systems Review of Systems: Back pain, abdominal pain Exam Narrative: Laying in bed Const: General: comfortable, no acute distress, well developed, alert, awake, ill appearing chronically and obese Nutritional Appearance: obese Orientation/consciousness: patient oriented x3 Other: Generalized pallor HENMT: Head: normal to inspection, normocephalic and atraumatic Ears: hearing grossly normal bilaterally Face/Nose/Sinus: normal facial exam Face and sinus: normal facial exam Eyes: General: appearance normal, both eyes and all related structures Pupils: Equal, round and reactive pupils present EOM: EOMs intact bilaterally Neck: Neck: full ROM, no lymphadenopathy and no JVD Thyroid: thyroid normal Lymphatic: no lymphadenopathy noted Resp: Effort & Inspection: normal respiratory effort and able to speak in complete sentences Auscultation: clear to auscultation bilaterally Cardio: Jugular venous distension: no JVD Rate: regular rate Rhythm: regular rhythm Heart sounds: S1 normal heart sound present and S2 normal heart sound present GI: Inspection: Pannus present and obesity : General: Yes deferred Skin: Rashes: no rashes Wounds: no wounds Neuro: General: patient oriented x3, CN's II-XI intact bilaterally and Unable to assess gait Cranial nerves: Yes CN's II-XII intact bilaterally and Yes Equal, round and reactive pupils present Cognition (Neuro): normal cognition Speech: normal speech Gait exam (Neuro): Unable to assess gait Motor exam (neuro): 5/5 motor strength present throughout Extrem: General: normal to inspection, full ROM, no joint enlargement and no pedal edema Objective Data Vital Signs Vital Signs: Vital Signs - 24 hr 03/16/24 12:58 03/16/24 13:40 03/16/24 16:00 Temperature 98.1 F Pulse Rate 57 L 63 58 L Respiratory Rate 20 Blood Pressure 122/61 Pulse Oximetry 98 Oxygen Delivery 03/16/24 16:00 03/16/24 16:00 03/16/24 18:00 Temperature Pulse Rate 61 63 Respiratory Rate Blood Pressure Pulse Oximetry Oxygen Delivery Room Air 03/16/24 18:39 03/16/24 20:00 03/16/24 20:00 Temperature Pulse Rate 59 L 61 61 Respiratory Rate 20 Blood Pressure Pulse Oximetry 98 Oxygen Delivery Room Air 03/16/24 20:40 03/16/24 22:00 03/16/24 23:00 Temperature 97.8 F Pulse Rate 55 L 58 L Respiratory Rate 20 Blood Pressure 104/42 L Pulse Oximetry 98 100 Oxygen Delivery Autopap 03/17/24 00:00 03/17/24 00:00 03/17/24 00:07 Temperature 97.8 F Pulse Rate 46 L 46 L 63 Respiratory Rate 20 20 Blood Pressure 92/46 L Pulse Oximetry 100 100 Oxygen Delivery Room Air 03/17/24 00:14 03/17/24 02:00 03/17/24 03:38 Temperature 97.7 F Pulse Rate 46 L 54 L 56 L Respiratory Rate 20 Blood Pressure 100/45 L Pulse Oximetry 100 Oxygen Delivery 03/17/24 04:00 03/17/24 04:00 03/17/24 05:26 Temperature Pulse Rate 63 61 46 L Respiratory Rate 20 Blood Pressure Pulse Oximetry 100 Oxygen Delivery Room Air 03/17/24 05:28 03/17/24 07:57 03/17/24 08:40 Temperature 98.1 F Pulse Rate 48 L 65 72 Respiratory Rate 20 Blood Pressure 104/43 L Pulse Oximetry 97 Oxygen Delivery 03/17/24 10:00 03/17/24 11:35 03/17/24 12:06 Temperature 97.8 F Pulse Rate 64 65 71 Respiratory Rate 20 Blood Pressure 117/39 L Pulse Oximetry 100 Oxygen Delivery Intake/Output Intake/Output: Intake & Output 03/14/24 03/15/24 03/16/24 03/17/24 23:59 23:59 23:59 23:59 Intake Total 2250 360 2530 690 Output Total 650 1350 1950 600 Balance 1600 -990 580 90 Meds/Results Medications: Active Medications Generic Name Dose Route Start Last Admin Trade Name Freq PRN Reason Stop Dose Admin Acetaminophen 1,000 mg 03/16/24 02:11 Acetaminophen 500 Mg Tablet PO Q8H PRN fever or pain Hydrocodone Bitart/Acetaminophen 1 tab 03/13/24 21:00 03/17/24 09:19 Hydrocodone/Acetaminophen (*Crx) 5-325 Mg Tablet PO 1 tab Q6H SUNNY Administration Aspirin 81 mg 03/16/24 08:00 03/17/24 09:14 Aspirin 81 Mg Chewable Tablet PO 81 mg DAILY@0800 SUNNY Administration Dabigatran 150 mg 03/16/24 09:00 03/17/24 09:14 Dabigatran Etexilate 150 Mg Capsule PO 150 mg Q12HR SUNNY Administration Dextrose 12.5 gm 03/13/24 21:39 Dextrose 50% 25 Gm/50 Ml Syringe IV PUSH PRN PRN Hypoglycemia Protocol Fenofibrate 145 mg 03/16/24 21:00 03/16/24 21:24 Fenofibrate Nanocrystallized 145 Mg Tablet PO 145 mg QHS SUNNY Administration Glucagon 1 mg 03/13/24 21:39 Glucagon For Inj 1 Mg Vial IM PRN PRN Hypoglycemia Protocol Glucose 15 gm 03/13/24 21:39 Glucose Oral Gel 15 Gm Of Glucse In 37.5 Gm Tube PO PRN PRN Hypoglycemia Protocol Dextrose 1,000 mls @ 100 mls/hr 03/13/24 21:39 Dextrose 5% 1,000 Ml IVPB PRN PRN Hypoglycemia Protocol Vancomycin HCl 1,500 mg in 500 mls @ 250 mls/hr 03/15/24 22:00 03/16/24 23:25 Vancomycin 1,500 Mg/Ns 500 Ml IVPB Infused Q24H SUNNY Infusion Insulin Aspart 4 - 8 units 03/16/24 06:30 03/17/24 12:01 Insulin Aspart (*Bkc) 100 Units/Ml SUB-Q Not Given ACHS SUNNY Protocol Insulin Aspart 12 units 03/16/24 06:00 03/17/24 12:05 Insulin Aspart (*Bkc) 100 Units/Ml SUB-Q 12 units Q6HR SUNNY Administration Lactobacillus Acidophilus 1 tablet 03/16/24 09:00 03/17/24 09:14 Acidophilus/Bulgaricus Chewable Tablet PO 1 tablet BID SUNNY Administration Magnesium Hydroxide 30 ml 03/14/24 09:00 03/17/24 09:14 Magnesium Hydroxide Susp 30 Ml Udc PO 30 ml QAM SUNNY Administration Metoprolol Tartrate 6.25 mg 03/16/24 06:00 03/17/24 12:06 Metoprolol Tartrate 6.25 Mg Tablet PO 6.25 mg Q6HR SUNNY Administration Orphenadrine Citrate 100 mg 03/14/24 22:24 03/14/24 22:35 Orphenadrine Citrate 100 Mg Tablet.Er PO 100 mg Q12HR PRN Administration Muscle Spasm Polyethylene Glycol 17 gm 03/16/24 09:00 03/17/24 09:15 Polyethylene Glycol 3350 17 Gm Powd.Pack FEED TUBE 17 gm BID SUNNY Administration Rosuvastatin Calcium 10 mg 03/14/24 21:00 03/16/24 21:24 Rosuvastatin 10 Mg Tablet PO 10 mg BEDTIME SUNNY Administration Radiology Results: ITS Impressions Chest X-Ray 03/13/24 15:57 Impression: 1: Cardiomegaly with mild interstitial edema. Abdomen/Pelvis CT 03/13/24 17:07 IMPRESSION: Large hiatal hernia. Findings within the liver and spleen suggesting prior granulomatous disease. Fecal stasis within the colon and distending the rectum suggesting fecal impaction. Findings at the level of the inferior endplate of L3 which demonstrate progression from previous examination, possibly representing discitis/osteomyelitis for which clinical and serologic correlation is needed. Head CT 03/13/24 19:07 Impression: No acute intracranial hemorrhage or suspicious mass effect. Labs Labs: Laboratory Results - last 24 hr 03/16/24 03/16/24 03/17/24 16:08 19:28 03:49 WBC 13.9 H RBC 3.42 L Hgb 8.9 L Hct 28.6 L MCV 83.6 MCH 26.0 MCHC 31.1 L RDW 17.6 H Plt Count 417 H MPV 9.5 Immature Gran % (Auto) 6.8 H Neut % (Auto) 73.2 H Lymph % (Auto) 11.8 L [place] % (Auto) 6.3 Eos % (Auto) 1.4 Baso % (Auto) 0.5 Lymph # (Auto) 1.64 [place] # (Auto) 0.9 H Eos # (Auto) 0.2 Baso # (Auto) 0.1 Abs Immat Gran (auto) 0.94 H Absolute Neuts (auto) 10.2 H Absolute Nucleated RBC 0.000 Nucleated RBC % 0.0 Platelet Estimate Increased Hypochromasia 1+ Anisocytosis 1+ Schistocytes None seen Sodium 129 L Potassium 5.3 H Chloride 96 L Carbon Dioxide 30 Anion Gap 3 L BUN 19 Creatinine 0.85 Estim Creat Clear Calc 64 Estimated GFR > 60 Glucose 166 H POC Capillary Glucose 168 H 203 H Calcium 8.5 Magnesium 2.5 H Total Bilirubin 0.4 AST 34 ALT 10 Alkaline Phosphatase 96 Total Protein 7.0 Albumin 2.9 L 03/17/24 03/17/24 07:11 11:37 WBC RBC Hgb Hct MCV MCH MCHC RDW Plt Count MPV Immature Gran % (Auto) Neut % (Auto) Lymph % (Auto) [place] % (Auto) Eos % (Auto) Baso % (Auto) Lymph # (Auto) [place] # (Auto) Eos # (Auto) Baso # (Auto) Abs Immat Gran (auto) Absolute Neuts (auto) Absolute Nucleated RBC Nucleated RBC % Platelet Estimate Hypochromasia Anisocytosis Schistocytes Sodium Potassium Chloride Carbon Dioxide Anion Gap BUN Creatinine Estim Creat Clear Calc Estimated GFR Glucose POC Capillary Glucose 171 H 199 H Calcium Magnesium Total Bilirubin AST ALT Alkaline Phosphatase Total Protein Albumin
[2024-03-17 15:49] LABS: Glucose Point of Care 100 mg/dl (65-105)
--- NOTE | 2024-03-17 19:11 | PC.NURSE ---
1800-scheduled insulin not given- blood sugar 100-
[2024-03-17 20:33] LABS: Glucose Point of Care 159 mg/dl (65-105)
[2024-03-17] MEDS: FENOFIBRATE NANOCRYSTALLIZED 145 MG TABLET PO (21:25)
[2024-03-17] MEDS: ROSUVASTATIN 10 MG TABLET PO (21:25)
[2024-03-17 21:28] LABS: Vancomycin Trough 16.6 ug/mL (10.0-20.0)
[2024-03-17] MEDS: VANCOMYCIN 1,500 MG/NS 500 ML 1,500 MG/500 ML BAG 250 MG IVPB (23:27)
[2024-03-18] VITALS (14 sets, daily range): BP systolic 111–116; BP diastolic 34–70; PULSE 61–70; RESP 20–28; TEMP 36.4–36.7; O2SAT 96–100
[2024-03-18] MEDS: HYDROcodone/acetaminophen (*CRX) 5-325 MG TABLET 1 TAB PO ×4 (04:22→20:51)
[2024-03-18 04:57] LABS: Basophils Absolute Auto 0.1 K/mm3 (0.0-0.1); Basophils Percent Auto 0.7 % (0.2-1.2); Eosinophils Absolute Auto 0.2 K/mm3 (0-0.3); Eosinophils Percent Auto 1.2 % (0-4.4); Hemoglobin 9.6 g/dL (14.0-18.0); Immature Granulocyte Absolute 0.87 K/mm3 (0.00-0.031); Immature Granulocyte Percent A 5.6 % (0-0.5); Lymphocytes Absolute Auto 1.91 K/mm3 (0.9-3.2); Lymphocytes Percent Auto 12.3 % (18.3-44.2); Mean Corpuscular Hemoglobin 25.9 pg (26-34); Mean Corpuscular Volume 83.6 fl (80-100); Mean Platelet Volume 9.5 fl (7.4-10.4); Monocytes Percent Auto 6.6 % (2.6-8.5); Neutrophils Absolute Auto 11.4 K/mm3 (1.3-6.7); Neutrophils Percent Auto 73.6 % (45.5-73.1); Platelet Count Result 461 k/mm3 (150-375); Red Blood Count 3.71 M/mm3 (4.6-6.20); Red Cell Distribution Width 17.5 % (11.5-14.5); White Blood Count 15.5 K/mm3 (4.5-10.0)
[2024-03-18 05:15] LABS: Alanine Aminotransferase 14 U/L (6-50); Albumin Level 3.1 g/dL (3.5-5.1); Alkaline Phosphatase 107 U/L (38-126); Anion Gap 4 mmol/L (4-12); Aspartate Amino Transferase 51 U/L (17-59); Bilirubin,Total 0.5 mg/dL (0.2-1.3); Blood Urea Nitrogen 16 mg/dL (9-20); Calcium 8.6 mg/dL (8.4-10.2); Carbon Dioxide 27 mmol/L (22-30); Chloride 95 mmol/L (98-107); Estimated CRCL calculation 67 ml/min; Estimated Glomerular Filt Rate > 60; Glucose 158 mg/dL (65-110); Magnesium 2.4 mg/dL (1.6-2.3); Potassium 5.1 mmol/L (3.4-5.0); Sodium 126 mmol/L (137-145)
[2024-03-18 05:22] LABS: Anisocytosis 1+; Hypochromasia 1+; Platelet Estimate Increased (Adequate); Schistocytes None Seen
[2024-03-18] MEDS: METOPROLOL TARTRATE 6.25 MG TABLET PO ×4 (06:23→23:47)
[2024-03-18 08:08] LABS: Glucose Point of Care 193 mg/dl (65-105)
[2024-03-18] MEDS: DABIGATRAN ETEXILATE 150 MG CAPSULE PO ×2 (08:20→20:51)
[2024-03-18] MEDS: ASPIRIN 81 MG CHEWABLE TABLET PO (08:20)
[2024-03-18] MEDS: polyethylene glycoL 3350 17 GM POWD.PACK FEED TUBE ×2 (08:20→16:39)
[2024-03-18] MEDS: ACIDOPHILUS/BULGARICUS CHEWABLE TABLET 1 TABLET PO ×2 (08:20→16:39)
[2024-03-18] MEDS: MAGNESIUM HYDROXIDE SUSP 30 ML UDC PO (08:20)
--- NOTE | 2024-03-18 10:04 | PC.NURSE ---
Updated ZI Morales from [facility] transfer center. No beds available at this time.
[2024-03-18] MEDS: INSULIN ASPART (*BKC) 100 UNITS/ML 12 UNITS SUB-Q (12:59)
[2024-03-18] MEDS: ACETAMINOPHEN 500 MG TABLET 1000 MG PO (13:36)
--- NOTE | 2024-03-18 14:57 | P.PNIM_ITS ---
Progress Note: A&P Assessment and Plan (1) Osteomyelitis of lumbar spine: Code(s): M46.26 - Osteomyelitis of vertebra, lumbar region Status: Acute Assessment and Plan: Patient awaiting bed at tertiary facility Continue Zosyn and vancomycin (2) Hypertension: Code(s): I10 - Essential (primary) hypertension Status: Acute Assessment and Plan: Continue home meds (3) Diastolic heart failure: Code(s): I50.30 - Unspecified diastolic (congestive) heart failure Status: Acute Assessment and Plan: Daily intake and output (4) CAD (coronary artery disease), autologous vein bypass graft: Code(s): I25.810 - Atherosclerosis of coronary artery bypass graft(s) without angina pectoris Status: Acute Assessment and Plan: Chest pain-free (5) Atrial fibrillation: Onset Date: 04/20/17 Code(s): I48.91 - Unspecified atrial fibrillation Status: Chronic Assessment and Plan: Rate controlled and anticoagulated (6) Type 2 diabetes mellitus with hyperglycemia, with long-term current use of insulin: Code(s): E11.65 - Type 2 diabetes mellitus with hyperglycemia; Z79.4 - correction (current) use of insulin Status: Acute Assessment and Plan: Continue insulin Holding sitagliptin (7) Physical deconditioning: Code(s): R53.81 - Other malaise Status: Acute Assessment and Plan: PT OT when clinically able to participate Plan MRSA bacteremia likely likely from Diskitis/osteomyelitis Blood culture positive MRSA and repeat blood culture pending patient recently managed for MRSA endocarditis Contnue ZOsyn and Vanc Continue with transfer to [facility] DVT prophylaxis on Dabigatran Awaiting transfer Subjective Date/time seen: 03/18/24 14:57 Interval history: Patient comfortable at bedside and awaiting transfer monitor closely Review of Systems Review of Systems: Back pain, abdominal pain Exam Narrative: Laying in bed Const: General: comfortable, no acute distress, well developed, alert, awake, ill appearing chronically and obese Nutritional Appearance: obese Orientation/consciousness: patient oriented x3 Other: Generalized pallor HENMT: Head: normal to inspection, normocephalic and atraumatic Ears: hearing grossly normal bilaterally Face/Nose/Sinus: normal facial exam Face and sinus: normal facial exam Eyes: General: appearance normal, both eyes and all related structures Pupils: Equal, round and reactive pupils present EOM: EOMs intact bilaterally Neck: Neck: full ROM, no lymphadenopathy and no JVD Thyroid: thyroid normal Lymphatic: no lymphadenopathy noted Resp: Effort & Inspection: normal respiratory effort and able to speak in complete sentences Auscultation: clear to auscultation bilaterally Cardio: Jugular venous distension: no JVD Rate: regular rate Rhythm: regular rhythm Heart sounds: S1 normal heart sound present and S2 normal heart sound present GI: Inspection: Pannus present and obesity : General: Yes deferred Skin: Rashes: no rashes Wounds: no wounds Neuro: General: patient oriented x3, CN's II-XI intact bilaterally and Unable to assess gait Cranial nerves: Yes CN's II-XII intact bilaterally and Yes Equal, round and reactive pupils present Cognition (Neuro): normal cognition Speech: normal speech Gait exam (Neuro): Unable to assess gait Motor exam (neuro): 5/5 motor strength present throughout Extrem: General: normal to inspection, full ROM, no joint enlargement and no pedal edema Objective Data Vital Signs Vital Signs: Vital Signs - 24 hr 03/17/24 15:47 03/17/24 16:00 03/17/24 18:00 Temperature 97.5 F L Pulse Rate 61 65 70 Respiratory Rate 20 Blood Pressure 131/54 L Pulse Oximetry 100 Oxygen Delivery 03/17/24 18:54 03/17/24 20:00 03/17/24 20:00 Temperature Pulse Rate 71 68 68 Respiratory Rate 20 Blood Pressure Pulse Oximetry 100 Oxygen Delivery Room Air 03/17/24 20:36 03/17/24 21:53 03/17/24 23:29 Temperature 97.6 F Pulse Rate 66 70 68 Respiratory Rate 20 Blood Pressure 113/53 L Pulse Oximetry 100 Oxygen Delivery 03/17/24 23:59 03/18/24 00:00 03/18/24 00:00 Temperature 97.6 F Pulse Rate 65 70 70 Respiratory Rate 20 20 Blood Pressure 117/53 L Pulse Oximetry 100 100 Oxygen Delivery Room Air 03/18/24 02:00 03/18/24 03:57 03/18/24 04:00 Temperature 97.6 F Pulse Rate 65 67 62 Respiratory Rate 20 20 Blood Pressure 111/57 L Pulse Oximetry 98 98 Oxygen Delivery Room Air 03/18/24 04:00 03/18/24 05:32 03/18/24 06:23 Temperature Pulse Rate 62 70 68 Respiratory Rate Blood Pressure Pulse Oximetry Oxygen Delivery 03/18/24 08:00 03/18/24 08:00 03/18/24 08:00 Temperature 98.0 F Pulse Rate 68 67 Respiratory Rate 24 H Blood Pressure 111/70 Pulse Oximetry 96 96 Oxygen Delivery Room Air 03/18/24 10:00 03/18/24 12:28 03/18/24 12:59 Temperature 97.5 F L Pulse Rate 62 63 61 Respiratory Rate 28 H Blood Pressure 113/34 L Pulse Oximetry 100 Oxygen Delivery Intake/Output Intake/Output: Intake & Output 03/15/24 03/16/24 03/17/24 03/18/24 23:59 23:59 23:59 23:59 Intake Total 360 2530 1370 1340 Output Total 1350 1950 1600 1400 Balance -990 580 -230 -60 Meds/Results Medications: Active Medications Generic Name Dose Route Start Last Admin Trade Name Freq PRN Reason Stop Dose Admin Acetaminophen 1,000 mg 03/16/24 02:11 03/18/24 13:36 Acetaminophen 500 Mg Tablet PO 1,000 mg Q8H PRN Administration fever or pain Hydrocodone Bitart/Acetaminophen 1 tab 03/13/24 21:00 03/18/24 08:20 Hydrocodone/Acetaminophen (*Crx) 5-325 Mg Tablet PO 1 tab Q6H SUNNY Administration Aspirin 81 mg 03/16/24 08:00 03/18/24 08:20 Aspirin 81 Mg Chewable Tablet PO 81 mg DAILY@0800 SUNNY Administration Dabigatran 150 mg 03/16/24 09:00 03/18/24 08:20 Dabigatran Etexilate 150 Mg Capsule PO 150 mg Q12HR SUNNY Administration Dextrose 12.5 gm 03/13/24 21:39 Dextrose 50% 25 Gm/50 Ml Syringe IV PUSH PRN PRN Hypoglycemia Protocol Fenofibrate 145 mg 03/16/24 21:00 03/17/24 21:25 Fenofibrate Nanocrystallized 145 Mg Tablet PO 145 mg QHS SUNNY Administration Glucagon 1 mg 03/13/24 21:39 Glucagon For Inj 1 Mg Vial IM PRN PRN Hypoglycemia Protocol Glucose 15 gm 03/13/24 21:39 Glucose Oral Gel 15 Gm Of Glucse In 37.5 Gm Tube PO PRN PRN Hypoglycemia Protocol Dextrose 1,000 mls @ 100 mls/hr 03/13/24 21:39 Dextrose 5% 1,000 Ml IVPB PRN PRN Hypoglycemia Protocol Vancomycin HCl 1,500 mg in 500 mls @ 250 mls/hr 03/17/24 23:00 03/18/24 01:30 Vancomycin 1,500 Mg/Ns 500 Ml IVPB Infused Q24H SUNNY Infusion Insulin Aspart 4 - 8 units 03/16/24 06:30 03/18/24 12:28 Insulin Aspart (*Bkc) 100 Units/Ml SUB-Q Not Given ACHS SUNNY Protocol Insulin Aspart 12 units 03/16/24 06:00 03/18/24 12:59 Insulin Aspart (*Bkc) 100 Units/Ml SUB-Q 12 units Q6HR SUNNY Administration Lactobacillus Acidophilus 1 tablet 03/16/24 09:00 03/18/24 08:20 Acidophilus/Bulgaricus Chewable Tablet PO 1 tablet BID SUNNY Administration Magnesium Hydroxide 30 ml 03/14/24 09:00 03/18/24 08:20 Magnesium Hydroxide Susp 30 Ml Udc PO 30 ml QAM SUNNY Administration Metoprolol Tartrate 6.25 mg 03/16/24 06:00 03/18/24 12:59 Metoprolol Tartrate 6.25 Mg Tablet PO 6.25 mg Q6HR SUNNY Administration Orphenadrine Citrate 100 mg 03/14/24 22:24 03/14/24 22:35 Orphenadrine Citrate 100 Mg Tablet.Er PO 100 mg Q12HR PRN Administration Muscle Spasm Polyethylene Glycol 17 gm 03/16/24 09:00 03/18/24 08:20 Polyethylene Glycol 3350 17 Gm Powd.Pack FEED TUBE 17 gm BID SUNNY Administration Rosuvastatin Calcium 10 mg 03/14/24 21:00 03/17/24 21:25 Rosuvastatin 10 Mg Tablet PO 10 mg BEDTIME SUNNY Administration Radiology Results: ITS Impressions Chest X-Ray 03/13/24 15:57 Impression: 1: Cardiomegaly with mild interstitial edema. Abdomen/Pelvis CT 03/13/24 17:07 IMPRESSION: Large hiatal hernia. Findings within the liver and spleen suggesting prior granulomatous disease. Fecal stasis within the colon and distending the rectum suggesting fecal impaction. Findings at the level of the inferior endplate of L3 which demonstrate progression from previous examination, possibly representing discitis/osteomyelitis for which clinical and serologic correlation is needed. Head CT 03/13/24 19:07 Impression: No acute intracranial hemorrhage or suspicious mass effect. Labs Labs: Laboratory Results - last 24 hr 03/17/24 03/17/24 03/17/24 15:44 20:06 20:48 WBC RBC Hgb Hct MCV MCH MCHC RDW Plt Count MPV Immature Gran % (Auto) Neut % (Auto) Lymph % (Auto) [place] % (Auto) Eos % (Auto) Baso % (Auto) Lymph # (Auto) [place] # (Auto) Eos # (Auto) Baso # (Auto) Abs Immat Gran (auto) Absolute Neuts (auto) Absolute Nucleated RBC Nucleated RBC % Platelet Estimate Hypochromasia Anisocytosis Schistocytes Sodium Potassium Chloride Carbon Dioxide Anion Gap BUN Creatinine Estim Creat Clear Calc Estimated GFR Glucose POC Capillary Glucose 100 159 H Calcium Magnesium Total Bilirubin AST ALT Alkaline Phosphatase Total Protein Albumin Vancomycin Trough 16.6 03/18/24 03/18/24 04:37 07:58 WBC 15.5 H RBC 3.71 L Hgb 9.6 L Hct 31.0 L MCV 83.6 MCH 25.9 L MCHC 31.0 L RDW 17.5 H Plt Count 461 H MPV 9.5 Immature Gran % (Auto) 5.6 H Neut % (Auto) 73.6 H Lymph % (Auto) 12.3 L [place] % (Auto) 6.6 Eos % (Auto) 1.2 Baso % (Auto) 0.7 Lymph # (Auto) 1.91 [place] # (Auto) 1.0 H Eos # (Auto) 0.2 Baso # (Auto) 0.1 Abs Immat Gran (auto) 0.87 H Absolute Neuts (auto) 11.4 H Absolute Nucleated RBC 0.000 Nucleated RBC % 0.0 Platelet Estimate Increased Hypochromasia 1+ Anisocytosis 1+ Schistocytes None seen Sodium 126 L Potassium 5.1 H Chloride 95 L Carbon Dioxide 27 Anion Gap 4 BUN 16 Creatinine 0.82 Estim Creat Clear Calc 67 Estimated GFR > 60 Glucose 158 H POC Capillary Glucose 193 H Calcium 8.6 Magnesium 2.4 H Total Bilirubin 0.5 AST 51 ALT 14 Alkaline Phosphatase 107 Total Protein 7.0 Albumin 3.1 L Vancomycin Trough
[2024-03-18 16:14] LABS: Glucose Point of Care 191 mg/dl (65-105)
[2024-03-18 16:38] LABS: Glucose Point of Care 129 mg/dl (65-105)
--- NOTE | 2024-03-18 17:33 | PC.NURSE ---
This patient, Diego Marquez , was transferred to3 on 03/18/24 at 1733. Personal belongings sent with patient. Report given to Ciarra. Appropriate documentation sent with patient.
--- NOTE | 2024-03-18 18:20 | PC.NURSE ---
No changes from last IMU RN assesment This patient, Diego Hernandez Alma Lamar, was received from IMU on 03/18/24 at 1820. Patient/family oriented to unit policies and routines
[2024-03-18] MEDS: FENOFIBRATE NANOCRYSTALLIZED 145 MG TABLET PO (20:51)
[2024-03-18] MEDS: ROSUVASTATIN 10 MG TABLET PO (20:52)
[2024-03-18] MEDS: VANCOMYCIN 1,500 MG/NS 500 ML 1,500 MG/500 ML BAG 125 MG IVPB (22:22)
[2024-03-18 23:54] LABS: Glucose Point of Care 121 mg/dl (65-105)
[2024-03-18 23:54] LABS: Glucose Point of Care 124 mg/dl (65-105)
[2024-03-19] VITALS (7 sets, daily range): BP systolic 100–107; BP diastolic 46–67; PULSE 61–88; RESP 16–20; TEMP 36.5–36.8; O2SAT 98–100
[2024-03-19] MEDS: HYDROcodone/acetaminophen (*CRX) 5-325 MG TABLET 1 TAB PO ×4 (02:34→21:27)
[2024-03-19] MEDS: METOPROLOL TARTRATE 6.25 MG TABLET PO ×4 (05:06→23:30)
[2024-03-19 05:36] LABS: Glucose Point of Care 142 mg/dl (65-105)
--- NOTE | 2024-03-19 05:37 | ECG_ITS ---
Test Date: 2024-03-19 05:52:00 Measurements Intervals [place] Rate: 54 P: 0 MS: 0 QRS: -12 QRSD: 98 T: 20 QT: 469 QTc: 447 Interpretive Statements ATRIAL FIBRILLATION WITH SLOW VENTRICULAR RESPONSE MINIMAL ST DEPRESSION [0.025+ mV ST DEPRESSION] ABNORMAL RHYTHM ECG Compared to ECG 03/13/2024 16:15:43 No significant changes Electronically Signed On 03-19-2024 21:52:48 DIET AID by Janet Helms M.D.
[2024-03-19 05:58] LABS: Basophils Absolute Auto 0.1 K/mm3 (0.0-0.1); Basophils Percent Auto 0.7 % (0.2-1.2); Eosinophils Absolute Auto 0.2 K/mm3 (0-0.3); Eosinophils Percent Auto 1.1 % (0-4.4); Hematocrit 29.2 % (42.0-52.0); Hemoglobin 8.9 g/dL (14.0-18.0); Immature Granulocyte Absolute 0.77 K/mm3 (0.00-0.031); Immature Granulocyte Percent A 4.9 % (0-0.5); Lymphocytes Absolute Auto 1.59 K/mm3 (0.9-3.2); Lymphocytes Percent Auto 10.1 % (18.3-44.2); Mean Corpuscular HGB Conc 30.5 g/dl (32-36); Mean Corpuscular Hemoglobin 25.6 pg (26-34); Mean Corpuscular Volume 83.9 fl (80-100); Mean Platelet Volume 9.5 fl (7.4-10.4); Monocytes Absolute Auto 1.1 K/mm3 (0.1-0.6); Monocytes Percent Auto 6.6 % (2.6-8.5); Neutrophils Absolute Auto 12.1 K/mm3 (1.3-6.7); Neutrophils Percent Auto 76.6 % (45.5-73.1); Platelet Count Result 450 k/mm3 (150-375); Red Blood Count 3.48 M/mm3 (4.6-6.20); Red Cell Distribution Width 17.5 % (11.5-14.5); White Blood Count 15.8 K/mm3 (4.5-10.0)
[2024-03-19 06:09] LABS: Lactic Acid Reflex 0.7 mmol/L (0.7-2.0)
[2024-03-19 06:14] LABS: Alanine Aminotransferase 13 U/L (6-50); Albumin Level 3.1 g/dL (3.5-5.1); Alkaline Phosphatase 101 U/L (38-126); Anion Gap 4 mmol/L (4-12); Aspartate Amino Transferase 49 U/L (17-59); Bilirubin,Total 0.5 mg/dL (0.2-1.3); Blood Urea Nitrogen 15 mg/dL (9-20); Calcium 8.3 mg/dL (8.4-10.2); Carbon Dioxide 25 mmol/L (22-30); Chloride 96 mmol/L (98-107); Estimated CRCL calculation 83 ml/min; Estimated Glomerular Filt Rate > 60; Glucose 139 mg/dL (65-110); Magnesium 2.5 mg/dL (1.6-2.3); Potassium 4.8 mmol/L (3.4-5.0); Sodium 125 mmol/L (137-145)
[2024-03-19 07:52] LABS: Glucose Point of Care 141 mg/dl (65-105)
--- NOTE | 2024-03-19 07:59 | P.CONCA_ITS ---
Assessment and Plan Assessment and plan (1) Pacemaker: Code(s): Z95.0 - Presence of cardiac pacemaker Status: Acute Assessment and Plan: Interrogate Medtronic pacemaker to see if any evidence of electrical shocks patient is experiencing. (2) Atrial fibrillation: Onset Date: 04/20/17 Code(s): I48.91 - Unspecified atrial fibrillation Status: Chronic Assessment and Plan: In atrial fib, rate is controlled. On Pradaxa. (3) History of endocarditis: Code(s): Z86.79 - Personal history of other diseases of the circulatory system Status: Acute Assessment and Plan: Treated with IV antibiotics at [facility] since Dec 2023. Recurrence of MRSA bacteremia and progression of L3 osteomyelitis. Plan to transfer to [facility] for management. (4) CAD (coronary artery disease), autologous vein bypass graft: Code(s): I25.810 - Atherosclerosis of coronary artery bypass graft(s) without angina pectoris Status: Acute Assessment and Plan: Stable. (5) Hypertension: Code(s): I10 - Essential (primary) hypertension Status: Acute Assessment and Plan: Stable. (6) Dyslipidemia: Code(s): E78.5 - Hyperlipidemia, unspecified Status: Acute Assessment and Plan: On Rosuvastatin and Fenofibrate. History of Present Illness History of Present Illness Consult date/time: 03/19/24 07:59 Reason For Visit: Diskitis/Osteomyelitis/Bacteremia Narrative: Patient is a 74 yr old man who is my regular cardiology patient presents to hospital with leg weakness. He has a history of endocarditis s/p IV antibiotics and managed at [facility] in Dec 2023, CAD with CABG, diastolic dysfunction, DM, hypertension, dyslipidemia, SAKSHI on CPAP, Medtronic pacemaker, Atrial fib with SVR on warfarin, obesity. He states he had leg weakness which prompted him to go to ER and was found to have progressive L3 discitis/osteomyelitis and recurrence of MRSA bacteremia. He feels electrical shocks from mid chest down to bilateral lower abdomen intermittently. Denies fever, chills. Denies chest pain or sob. He fell due to loss of balance and can only walk with a walker around his house. Denies orthopnea, palpitations, edema. Cardiovascular Procedures Echo/MUGA:: 12/27/23 DEDRA: EF 60-65%, mild RVE, mild LAE, trace AI, small AV vegetation measuring 0.1 cm2 attached to left coronary cusp, mild MR, small MV vegetation measuring 0.6 cm2 attached to anterior MV leaflet and 0.1 cm2 attached to posterio MV leaflet, trace TR. 12/23/20 Echo: EF 55-60%, mild LVH, diastolic dysfunction (E/e' 14), mild RVE/hypokinesis, mod biatrial enlargement, mild MR/TR, RVSP 45 mmHg. Echo (EF 55%, mild-mod LVH, diastolic dysfunction not assessed, mild-mod LAE, mild MR/TR, trace PI.) - 04/28/2015 Stress Tests:: Devices (MRI compatible single chamber PPM implanted by Dr. Grijalva.) - 05/06/2015 EKG (Atrial fibrillation at 46 bpm, IVCD, borderline ST-T wave abnormality in diffuse leads, delayed precordial R/S transition.) - 04/21/2015 Review of Systems 2 Review of Systems: All systems reviewed & are unremarkable except as noted in HPI and below Constitutional: Constitutional: Reports as per HPI, Denies chills, Reports fatigue and Denies fever(s) Cardiovascular: Cardiovascular: Reports as per HPI, Denies chest pain and Denies irregular heart rhythm Respiratory: Respiratory: Reports as per HPI and Denies dyspnea Gastrointestinal: Gastrointestinal: Reports as per HPI and Denies abdominal pain Genitourinary: Genitourinary: Reports as per HPI Musculoskeletal: Musculoskeletal: Reports as per HPI Neurologic: Reports as per HPI, Denies dizziness and Denies syncope [facility] Past Medical History Medical History (Updated 03/19/24 @ 08:05 by Celso Haro DO) Pacemaker Anticoagulant long-term use Candidiasis of other urogenital sites Anemia Diabetic peripheral neuropathy Rhabdomyolysis Urge urinary incontinence Chronic venous stasis dermatitis of both lower extremities Sick sinus syndrome (04/18/17) SAKSHI on CPAP (03/2019) CPAP of 7 Mixed hyperlipidemia (04/20/17) Essential hypertension Atrial fibrillation (04/20/17) On chronic anticoagulation with warfarin Hemochromatosis However patient's iron studies demonstrate a low iron level (12/2020), normal transferrin (in 2019) and normal hemoglobin and now actually has what appears bandemia chronic disease Obesity (BMI 35.0-39.9 without comorbidity) CAD (coronary artery disease), autologous vein bypass graft Arthritis Diabetes mellitus Erectile dysfunction Peripheral artery disease Surgical History Surgical History Pacemaker (04/2015) Single-chamber MRI compatible pacemaker Hx of CABG (~2004) Four-vessel CABG H/O right heart catheterization Family History Family History Father Acute myocardial infarction Son Family history of obesity Mother Uterine cancer Social History Social History Social History: He has been since 1997 and he he lives in his own home. He ambulates with a walker. His son comes and checks on him daily, and will be his surrogate Diego rosenthal. He is retired from the [employer]. He wishes to be a full code at this time. Smoking packs per day: 2.5 Smoking cigarettes per day: 50.0 Years smoked: 50 Smoking pack-years: 125.00 Smoking status: Former smoker Tobacco type: cigars Smokeless tobacco user: chewing tobacco Second hand tobacco smoke exposure: Yes Alcohol intake: never Substance use: never Substance use type: marijuana Do You Feel Safe in your Home?: Yes Lack of Transportation: No Lack of Food: Never True Current Housing: I Have Housing Concerned About Future Housing: No Difficulty Paying Gas/Electric Bills: No Difficulty Paying for Meds: No Currently Unemployed: No Education: High School Diploma/GED Difficulty w/ Childcare or Family Care: No Living arrangements: alone Occupation/Education: retired 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 Gender identity (if verbalized by the patient): Male Sexual Orientation (if Verbalized by the Patient): Straight or Heterosexual Spiritual care concerns: No Agree to blood products: Yes Meds Home Medications and Allergies Home Medications ?Medication ?Instructions ?Recorded ?Confirmed ?Type insulin aspart U-100 100 unit/mL 12 unit (0.12 mL) subcut Q6H #10 mL 11/11/23 03/15/24 Rx subcutaneous solution (Novolog U-100 Insulin aspart) multivitamin with minerals 1 tablet PO DAILY 12/20/23 03/15/24 History nystatin 100,000 unit/mL oral 100,000 unit PO QID 12/20/23 03/15/24 History suspension insulin aspart U-100 100 unit/mL 4 - 8 unit subcut ACHS 12/28/23 03/15/24 Rx subcutaneous solution (Novolog U-100 Insulin aspart) Lactobacillus acidophilus 1 cap PO BID 02/15/24 03/15/24 History aspirin 81 mg chewable tablet 81 mg PO DAILY 02/15/24 03/15/24 History (Lynnette Chewable Low Dose Aspirin) dabigatran etexilate 150 mg capsule 150 mg PO BID 02/15/24 03/15/24 History fenofibrate nanocrystallized 145 mg PO HS 02/15/24 03/15/24 History furosemide 40 mg tablet 40 mg PO DAILY 02/15/24 03/15/24 History metoprolol tartrate 25 mg tablet 6.25 mg PO Q6H 02/15/24 03/15/24 History pantoprazole 40 mg granules 40 mg feeding tube DAILY 02/15/24 03/15/24 History delayed-release for susp in packet polyethylene glycol 3350 17 17 g feeding tube BID 02/15/24 03/15/24 History gram/dose oral powder potassium chloride 20 mEq oral 20 meq PO DAILY 02/15/24 03/15/24 History packet (Klor-Con) rosuvastatin 10 mg tablet 10 mg feeding tube HS 02/15/24 03/15/24 History saxagliptin 5 mg tablet 5 mg PO DAILY 02/15/24 03/15/24 History spironolactone 25 mg tablet 25 mg PO DAILY 02/15/24 03/15/24 History vancomycin 1.25 gram intravenous 1.25 g IV Q24H 02/15/24 03/19/24 History solution acetaminophen 500 mg capsule 1,000 mg PO Q8H PRN fever or pain 03/15/24 03/15/24 History Allergies Allergy/AdvReac Type Severity Reaction Status Date / Time morphine AdvReac Agitated Verified 02/15/24 07:22 Vital Signs Vital Signs - 24 hr 03/18/24 08:00 03/18/24 08:00 03/18/24 08:00 Temperature 98.0 F Pulse Rate 68 67 Respiratory Rate 24 H Blood Pressure 111/70 Pulse Oximetry 96 96 Oxygen Delivery Room Air 03/18/24 10:00 03/18/24 12:28 03/18/24 12:59 Temperature 97.5 F L Pulse Rate 62 63 61 Respiratory Rate 28 H Blood Pressure 113/34 L Pulse Oximetry 100 Oxygen Delivery 03/18/24 16:00 03/18/24 17:59 03/18/24 20:00 Temperature 98.1 F 98.1 F Pulse Rate 70 64 64 Respiratory Rate 24 H 20 20 Blood Pressure 111/59 L 116/55 L Pulse Oximetry 100 100 100 Oxygen Delivery Room Air 03/18/24 23:47 03/19/24 00:00 03/19/24 05:06 Temperature 97.9 F Pulse Rate 66 61 71 Respiratory Rate 18 Blood Pressure 101/46 L Pulse Oximetry 100 Oxygen Delivery Exam 2 Const: General: cooperative, healthy appearing and comfortable Resp: Auscultation: clear to auscultation bilaterally, no crackles, no rales, no rhonchi and no wheezes Cardio: Rate: regular rate Rhythm: abnormal rhythm Heart sounds: no murmurs Peripheral pulses: dorsalis pedis present GI: GI Palp: No abdominal tenderness and Yes Soft to palpation Neuro: General: oriented to person, oriented to place and oriented to time Extrem: Right lower extremity: no edema Left lower extremity: no edema Results Labs and Meds 03/19/24 05:34 03/19/24 05:34 Lab results: Cardiac Enzymes 03/19/24 Range/Units 05:34 AST 49 (17-59) U/L CBC 03/19/24 Range/Units 05:34 WBC 15.8 H (4.5-10.0) K/mm3 RBC 3.48 L (4.6-6.20) M/mm3 Hgb 8.9 L (14.0-18.0) g/dL Hct 29.2 L (42.0-52.0) % Plt Count 450 H (150-375) k/mm3 Lymph # (Auto) 1.59 (0.9-3.2) K/mm3 [place] # (Auto) 1.1 H (0.1-0.6) K/mm3 Eos # (Auto) 0.2 (0-0.3) K/mm3 Baso # (Auto) 0.1 (0.0-0.1) K/mm3 Comprehensive Metabolic Panel 03/19/24 Range/Units 05:34 Sodium 125 L (137-145) mmol/L Potassium 4.8 (3.4-5.0) mmol/L Chloride 96 L (98-107) mmol/L Carbon Dioxide 25 (22-30) mmol/L BUN 15 (9-20) mg/dL Creatinine 0.74 (0.7-1.3) mg/dL Glucose 139 H (65-110) mg/dL Calcium 8.3 L (8.4-10.2) mg/dL AST 49 (17-59) U/L ALT 13 (6-50) U/L Alkaline Phosphatase 101 (38-126) U/L Total Protein 7.0 (6.3-8.2) g/dL Albumin 3.1 L (3.5-5.1) g/dL Intake and Output 03/18/24 03/18/24 03/19/24 15:59 23:59 07:59 Intake Total 240 1050 500 Output Total 900 1400 Balance -660 1050 -900 Intake: IV 500 Vancomycin 1,500 mg/Ns 500 ml 1 500 ,500 mg In 500 ml @ 250 mls/hr IVPB Q24H [facility] Rx#:[id number] Oral 240 250 Other 800 Output: Urine 900 700 Catheter Urine 700 External/Condom 700 Patient Weight 03/19/24 23:59 Weight 89.3 kg
[2024-03-19] MEDS: MAGNESIUM HYDROXIDE SUSP 30 ML UDC PO (11:06)
[2024-03-19] MEDS: polyethylene glycoL 3350 17 GM POWD.PACK FEED TUBE (11:06)
[2024-03-19] MEDS: DABIGATRAN ETEXILATE 150 MG CAPSULE PO ×2 (11:06→21:27)
[2024-03-19] MEDS: ASPIRIN 81 MG CHEWABLE TABLET PO (11:06)
[2024-03-19] MEDS: ACIDOPHILUS/BULGARICUS CHEWABLE TABLET 1 TABLET PO ×2 (11:06→17:54)
[2024-03-19 11:36] LABS: Glucose Point of Care 110 mg/dl (65-105)
--- NOTE | 2024-03-19 15:25 | P.PNIM_ITS ---
Progress Note: A&P Assessment and Plan (1) Osteomyelitis of lumbar spine: Code(s): M46.26 - Osteomyelitis of vertebra, lumbar region Status: Acute Assessment and Plan: Patient awaiting bed at tertiary facility Continue Zosyn and vancomycin (2) Hypertension: Code(s): I10 - Essential (primary) hypertension Status: Acute Assessment and Plan: Continue home meds (3) Diastolic heart failure: Code(s): I50.30 - Unspecified diastolic (congestive) heart failure Status: Acute Assessment and Plan: Daily intake and output (4) CAD (coronary artery disease), autologous vein bypass graft: Code(s): I25.810 - Atherosclerosis of coronary artery bypass graft(s) without angina pectoris Status: Acute Assessment and Plan: Chest pain-free (5) Atrial fibrillation: Onset Date: 04/20/17 Code(s): I48.91 - Unspecified atrial fibrillation Status: Chronic Assessment and Plan: Rate controlled and anticoagulated (6) Type 2 diabetes mellitus with hyperglycemia, with long-term current use of insulin: Code(s): E11.65 - Type 2 diabetes mellitus with hyperglycemia; Z79.4 - penitentiary (current) use of insulin Status: Acute Assessment and Plan: Continue insulin Holding sitagliptin (7) Physical deconditioning: Code(s): R53.81 - Other malaise Status: Acute Assessment and Plan: PT OT when clinically able to participate Plan MRSA bacteremia likely likely from Diskitis/osteomyelitis Blood culture positive MRSA and repeat blood culture no growth until today patient recently managed for MRSA endocarditis Contnue ZOsyn and Vanc Continue with transfer to [facility] DVT prophylaxis on Dabigatran Awaiting transfer Subjective Date/time seen: 03/19/24 15:25 Interval history: No acute events reported overnight. Continue vancomycin. Pending transfer to [facility]. Review of Systems Review of Systems: Back pain, abdominal pain Exam Narrative: Laying in bed Const: General: comfortable, no acute distress, well developed, alert, awake, ill appearing chronically and obese Nutritional Appearance: obese Orientation/consciousness: patient oriented x3 Other: Generalized pallor HENMT: Head: normal to inspection, normocephalic and atraumatic Ears: hearing grossly normal bilaterally Face/Nose/Sinus: normal facial exam Face and sinus: normal facial exam Eyes: General: appearance normal, both eyes and all related structures Pupils: Equal, round and reactive pupils present EOM: EOMs intact bilaterally Neck: Neck: full ROM, no lymphadenopathy and no JVD Thyroid: thyroid normal Lymphatic: no lymphadenopathy noted Resp: Effort & Inspection: normal respiratory effort and able to speak in complete sentences Auscultation: clear to auscultation bilaterally Cardio: Jugular venous distension: no JVD Rate: regular rate Rhythm: regular rhythm Heart sounds: S1 normal heart sound present and S2 normal heart sound present GI: Inspection: Pannus present and obesity : General: Yes deferred Skin: Rashes: no rashes Wounds: no wounds Neuro: General: patient oriented x3, CN's II-XI intact bilaterally and Unable to assess gait Cranial nerves: Yes CN's II-XII intact bilaterally and Yes Equal, round and reactive pupils present Cognition (Neuro): normal cognition Speech: normal speech Gait exam (Neuro): Unable to assess gait Motor exam (neuro): 5/5 motor strength present throughout Extrem: General: normal to inspection, full ROM, no joint enlargement and no pedal edema Objective Data Vital Signs Vital Signs: Vital Signs - 24 hr 03/18/24 16:00 03/18/24 17:59 03/18/24 20:00 Temperature 98.1 F 98.1 F Pulse Rate 70 64 64 Respiratory Rate 24 H 20 20 Blood Pressure 111/59 L 116/55 L Pulse Oximetry 100 100 100 Oxygen Delivery Room Air 03/18/24 23:47 03/19/24 00:00 03/19/24 05:06 Temperature 97.9 F Pulse Rate 66 61 71 Respiratory Rate 18 Blood Pressure 101/46 L Pulse Oximetry 100 Oxygen Delivery 03/19/24 08:00 03/19/24 08:00 Temperature 97.7 F Pulse Rate 85 71 Respiratory Rate 18 18 Blood Pressure 100/67 Pulse Oximetry 99 100 Oxygen Delivery Room Air Intake/Output Intake/Output: Intake & Output 03/16/24 03/17/24 03/18/24 03/19/24 23:59 23:59 23:59 23:59 Intake Total 2530 1370 2390 850 Output Total 1950 1600 1400 1400 Balance 580 -230 990 -550 Meds/Results Medications: Active Medications Generic Name Dose Route Start Last Admin Trade Name Freq PRN Reason Stop Dose Admin Acetaminophen 1,000 mg 03/16/24 02:11 03/18/24 13:36 Acetaminophen 500 Mg Tablet PO 1,000 mg Q8H PRN Administration fever or pain Hydrocodone Bitart/Acetaminophen 1 tab 03/13/24 21:00 03/19/24 11:05 Hydrocodone/Acetaminophen (*Crx) 5-325 Mg Tablet PO 1 tab Q6H SUNNY Administration Aspirin 81 mg 03/16/24 08:00 03/19/24 11:06 Aspirin 81 Mg Chewable Tablet PO 81 mg DAILY@0800 SUNNY Administration Dabigatran 150 mg 03/16/24 09:00 03/19/24 11:06 Dabigatran Etexilate 150 Mg Capsule PO 150 mg Q12HR SUNNY Administration Dextrose 12.5 gm 03/13/24 21:39 Dextrose 50% 25 Gm/50 Ml Syringe IV PUSH PRN PRN Hypoglycemia Protocol Fenofibrate 145 mg 03/16/24 21:00 03/18/24 20:51 Fenofibrate Nanocrystallized 145 Mg Tablet PO 145 mg QHS SUNNY Administration Glucagon 1 mg 03/13/24 21:39 Glucagon For Inj 1 Mg Vial IM PRN PRN Hypoglycemia Protocol Glucose 15 gm 03/13/24 21:39 Glucose Oral Gel 15 Gm Of Glucse In 37.5 Gm Tube PO PRN PRN Hypoglycemia Protocol Dextrose 1,000 mls @ 100 mls/hr 03/13/24 21:39 Dextrose 5% 1,000 Ml IVPB PRN PRN Hypoglycemia Protocol Vancomycin HCl 1,500 mg in 500 mls @ 250 mls/hr 03/17/24 23:00 03/19/24 02:22 Vancomycin 1,500 Mg/Ns 500 Ml IVPB Infused Q24H SUNNY Infusion Insulin Aspart 4 - 8 units 03/16/24 06:30 03/19/24 11:06 Insulin Aspart (*Bkc) 100 Units/Ml SUB-Q Not Given ACHS [facility] Protocol Insulin Aspart 12 units 03/16/24 06:00 03/19/24 05:08 Insulin Aspart (*Bkc) 100 Units/Ml SUB-Q Not Given Q6HR [facility] Lactobacillus Acidophilus 1 tablet 03/16/24 09:00 03/19/24 11:06 Acidophilus/Bulgar[place] Chewable Tablet PO 1 tablet BID SUNNY Administration Magnesium Hydroxide 30 ml 03/14/24 09:00 03/19/24 11:06 Magnesium Hydroxide Susp 30 Ml Udc PO 30 ml QAM SUNNY Administration Metoprolol Tartrate 6.25 mg 03/16/24 06:00 03/19/24 05:06 Metoprolol Tartrate 6.25 Mg Tablet PO 6.25 mg Q6HR SUNNY Administration Orphenadrine Citrate 100 mg 03/14/24 22:24 03/14/24 22:35 Orphenadrine Citrate 100 Mg Tablet.Er PO 100 mg Q12HR PRN Administration Muscle Spasm Polyethylene Glycol 17 gm 03/16/24 09:00 03/19/24 11:06 Polyethylene Glycol 3350 17 Gm Powd.Pack FEED TUBE 17 gm BID SUNNY Administration Rosuvastatin Calcium 10 mg 03/14/24 21:00 03/18/24 20:52 Rosuvastatin 10 Mg Tablet PO 10 mg BEDTIME SUNNY Administration Radiology Results: ITS Impressions Chest X-Ray 03/13/24 15:57 Impression: 1: Cardiomegaly with mild interstitial edema. Abdomen/Pelvis CT 03/13/24 17:07 IMPRESSION: Large hiatal hernia. Findings within the liver and spleen suggesting prior granulomatous disease. Fecal stasis within the colon and distending the rectum suggesting fecal impaction. Findings at the level of the inferior endplate of L3 which demonstrate progression from previous examination, possibly representing discitis/osteomyelitis for which clinical and serologic correlation is needed. Head CT 03/13/24 19:07 Impression: No acute intracranial hemorrhage or suspicious mass effect. Labs Labs: Laboratory Results - last 24 hr 03/18/24 03/18/24 03/18/24 12:15 16:34 20:49 WBC RBC Hgb Hct MCV MCH MCHC RDW Plt Count MPV Immature Gran % (Auto) Neut % (Auto) Lymph % (Auto) [place] % (Auto) Eos % (Auto) Baso % (Auto) Lymph # (Auto) [place] # (Auto) Eos # (Auto) Baso # (Auto) Abs Immat Gran (auto) Absolute Neuts (auto) Absolute Nucleated RBC Nucleated RBC % Sodium Potassium Chloride Carbon Dioxide Anion Gap BUN Creatinine Estim Creat Clear Calc Estimated GFR Glucose POC Capillary Glucose 191 H 129 H 121 H Lactic Acid Calcium Magnesium Total Bilirubin AST ALT Alkaline Phosphatase Total Protein Albumin 03/18/24 03/19/24 03/19/24 23:46 05:07 05:34 WBC 15.8 H RBC 3.48 L Hgb 8.9 L Hct 29.2 L MCV 83.9 MCH 25.6 L MCHC 30.5 L RDW 17.5 H Plt Count 450 H MPV 9.5 Immature Gran % (Auto) 4.9 H Neut % (Auto) 76.6 H Lymph % (Auto) 10.1 L [place] % (Auto) 6.6 Eos % (Auto) 1.1 Baso % (Auto) 0.7 Lymph # (Auto) 1.59 [place] # (Auto) 1.1 H Eos # (Auto) 0.2 Baso # (Auto) 0.1 Abs Immat Gran (auto) 0.77 H Absolute Neuts (auto) 12.1 H Absolute Nucleated RBC 0.000 Nucleated RBC % 0.0 Sodium 125 L Potassium 4.8 Chloride 96 L Carbon Dioxide 25 Anion Gap 4 BUN 15 Creatinine 0.74 Estim Creat Clear Calc 83 Estimated GFR > 60 Glucose 139 H POC Capillary Glucose 124 H 142 H Lactic Acid 0.7 Calcium 8.3 L Magnesium 2.5 H Total Bilirubin 0.5 AST 49 ALT 13 Alkaline Phosphatase 101 Total Protein 7.0 Albumin 3.1 L 03/19/24 03/19/24 07:50 11:34 WBC RBC Hgb Hct MCV MCH MCHC RDW Plt Count MPV Immature Gran % (Auto) Neut % (Auto) Lymph % (Auto) [place] % (Auto) Eos % (Auto) Baso % (Auto) Lymph # (Auto) [place] # (Auto) Eos # (Auto) Baso # (Auto) Abs Immat Gran (auto) Absolute Neuts (auto) Absolute Nucleated RBC Nucleated RBC % Sodium Potassium Chloride Carbon Dioxide Anion Gap BUN Creatinine Estim Creat Clear Calc Estimated GFR Glucose POC Capillary Glucose 141 H 110 H Lactic Acid Calcium Magnesium Total Bilirubin AST ALT Alkaline Phosphatase Total Protein Albumin Hospitalist MIPS Advance Care Plan I have confirmed that the patient's Advanced Care Plan is present, code status is documented, or surrogate decision maker is listed in patient medical record.: Yes Medication Reconciliation I have utilized all available resources to obtain, update and review the patients current medications (includes all prescriptions, OTC, herbals, cannabis, and nutritional supplements).: Yes
[2024-03-19 16:51] LABS: Glucose Point of Care 106 mg/dl (65-105)
[2024-03-19] MEDS: FENOFIBRATE NANOCRYSTALLIZED 145 MG TABLET PO (21:27)
[2024-03-19] MEDS: ROSUVASTATIN 10 MG TABLET PO (21:27)
[2024-03-19 22:17] LABS: Glucose Point of Care 137 mg/dl (65-105)
[2024-03-19 22:50] LABS: Vancomycin Trough 17.3 ug/mL (10.0-20.0)
[2024-03-19] MEDS: VANCOMYCIN 1,500 MG/NS 500 ML 1,500 MG/500 ML BAG 125 MG IVPB (23:29)
[2024-03-19 23:36] LABS: Glucose Point of Care 133 mg/dl (65-105)
[2024-03-20] VITALS (10 sets, daily range): BP systolic 103–121; BP diastolic 55–62; PULSE 60–116; RESP 17–20; TEMP 35.7–36.5; O2SAT 99–100
[2024-03-20] MEDS: HYDROcodone/acetaminophen (*CRX) 5-325 MG TABLET 1 TAB PO ×4 (03:14→20:47)
[2024-03-20] MEDS: METOPROLOL TARTRATE 6.25 MG TABLET PO ×3 (05:42→18:15)
[2024-03-20 05:52] LABS: Glucose Point of Care 157 mg/dl (65-105)
[2024-03-20 06:26] LABS: Hemoglobin 9.2 g/dL (14.0-18.0); Mean Corpuscular HGB Conc 30.7 g/dl (32-36); Mean Corpuscular Volume 84.7 fl (80-100); Mean Platelet Volume 9.6 fl (7.4-10.4); Platelet Count Result 483 k/mm3 (150-375); Red Blood Count 3.54 M/mm3 (4.6-6.20); Red Cell Distribution Width 17.6 % (11.5-14.5); White Blood Count 11.8 K/mm3 (4.5-10.0)
[2024-03-20 06:39] LABS: Alanine Aminotransferase 13 U/L (6-50); Albumin Level 3.1 g/dL (3.5-5.1); Alkaline Phosphatase 94 U/L (38-126); Anion Gap 3 mmol/L (4-12); Aspartate Amino Transferase 42 U/L (17-59); Bilirubin,Total 0.5 mg/dL (0.2-1.3); Blood Urea Nitrogen 15 mg/dL (9-20); Calcium 8.7 mg/dL (8.4-10.2); Carbon Dioxide 28 mmol/L (22-30); Chloride 96 mmol/L (98-107); Estimated CRCL calculation 87 ml/min; Estimated Glomerular Filt Rate > 60; Glucose 142 mg/dL (65-110); Potassium 5.6 mmol/L (3.4-5.0); Sodium 127 mmol/L (137-145)
--- NOTE | 2024-03-20 07:56 | ECG_ITS ---
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
--- NOTE | 2024-03-20 07:57 | P.PNCA_ITS ---
Progress Note: A&P Assessment and Plan (1) Pacemaker: Code(s): Z95.0 - Presence of cardiac pacemaker Status: Acute Assessment and Plan: Interrogated [employer] pacemaker and no evidence of any abnormality. Will sign off, please call with any questions. (2) Atrial fibrillation: Onset Date: 04/20/17 Code(s): I48.91 - Unspecified atrial fibrillation Status: Chronic Assessment and Plan: In atrial fib, rate is controlled. On Pradaxa. (3) History of endocarditis: Code(s): Z86.79 - Personal history of other diseases of the circulatory system Status: Acute Assessment and Plan: Treated with IV antibiotics at [facility] since Dec 2023. Recurrence of MRSA bacteremia and progression of L3 osteomyelitis. Plan to transfer to [facility] for management. (4) CAD (coronary artery disease), autologous vein bypass graft: Code(s): I25.810 - Atherosclerosis of coronary artery bypass graft(s) without angina pectoris Status: Acute Assessment and Plan: Stable. (5) Hypertension: Code(s): I10 - Essential (primary) hypertension Status: Acute Assessment and Plan: Stable. (6) Dyslipidemia: Code(s): E78.5 - Hyperlipidemia, unspecified Status: Acute Assessment and Plan: On Rosuvastatin and Fenofibrate. Subjective Date/time seen: 03/20/24 07:57 Interval history: Denies fever/chills. No chest pain or sob. Had some shocks from his epigastrium to lower abdominal quadrants. Exam Const: General: cooperative, healthy appearing and comfortable Orientation/consciousness: oriented to person, oriented to place and oriented to time Resp: Auscultation: clear to auscultation bilaterally, no crackles, no rales, no rhonchi and no wheezes Cardio: Rate: regular rate Rhythm: abnormal rhythm Heart sounds: no murmurs Peripheral pulses: dorsalis pedis present Neuro: General: oriented to person, oriented to place and oriented to time Extrem: Right lower extremity: no edema Left lower extremity: no edema Objective Data Vital Signs Vital Signs: Vital Signs - 24 hr 03/19/24 08:00 03/19/24 08:00 03/19/24 16:00 Temperature 97.7 F 97.8 F Pulse Rate 85 71 76 Respiratory Rate 18 18 20 Blood Pressure 100/67 102/57 L Pulse Oximetry 99 100 99 Oxygen Delivery Room Air 03/19/24 20:00 03/19/24 20:43 03/19/24 23:30 Temperature 98.2 F Pulse Rate 88 88 68 Respiratory Rate 16 16 Blood Pressure 107/53 L Pulse Oximetry 98 98 Oxygen Delivery Room Air 03/20/24 04:44 03/20/24 05:42 Temperature 96.3 F L Pulse Rate 60 61 Respiratory Rate 20 Blood Pressure 121/58 L Pulse Oximetry 100 Oxygen Delivery Intake/Output Intake/Output: Intake & Output 03/17/24 03/18/24 03/19/24 03/20/24 23:59 23:59 23:59 23:59 Intake Total 1370 2390 970 700 Output Total 1600 1400 1900 900 Balance -230 990 -930 -200 Meds/Results Medications: Active Medications Generic Name Dose Route Start Last Admin Trade Name Freq PRN Reason Stop Dose Admin Acetaminophen 1,000 mg 03/16/24 02:11 03/18/24 13:36 Acetaminophen 500 Mg Tablet PO 1,000 mg Q8H PRN Administration fever or pain Hydrocodone Bitart/Acetaminophen 1 tab 03/13/24 21:00 03/20/24 03:14 Hydrocodone/Acetaminophen (*Crx) 5-325 Mg Tablet PO 1 tab Q6H SUNNY Administration Aspirin 81 mg 03/16/24 08:00 03/19/24 11:06 Aspirin 81 Mg Chewable Tablet PO 81 mg DAILY@0800 SUNNY Administration Dabigatran 150 mg 03/16/24 09:00 03/19/24 21:27 Dabigatran Etexilate 150 Mg Capsule PO 150 mg Q12HR SUNNY Administration Dextrose 12.5 gm 03/13/24 21:39 Dextrose 50% 25 Gm/50 Ml Syringe IV PUSH PRN PRN Hypoglycemia Protocol Fenofibrate 145 mg 03/16/24 21:00 03/19/24 21:27 Fenofibrate Nanocrystallized 145 Mg Tablet PO 145 mg QHS SUNNY Administration Glucagon 1 mg 03/13/24 21:39 Glucagon For Inj 1 Mg Vial IM PRN PRN Hypoglycemia Protocol Glucose 15 gm 03/13/24 21:39 Glucose Oral Gel 15 Gm Of Glucse In 37.5 Gm Tube PO PRN PRN Hypoglycemia Protocol Dextrose 1,000 mls @ 100 mls/hr 03/13/24 21:39 Dextrose 5% 1,000 Ml IVPB PRN PRN Hypoglycemia Protocol Vancomycin HCl 1,500 mg in 500 mls @ 250 mls/hr 03/17/24 23:00 03/20/24 03:29 Vancomycin 1,500 Mg/Ns 500 Ml IVPB Infused Q24H SUNNY Infusion Insulin Aspart 4 - 8 units 03/16/24 06:30 03/19/24 21:27 Insulin Aspart (*Bkc) 100 Units/Ml SUB-Q Not Given ACHS SUNNY Protocol Insulin Aspart 12 units 03/16/24 06:00 03/20/24 05:44 Insulin Aspart (*Bkc) 100 Units/Ml SUB-Q Not Given Q6HR SUNNY Lactobacillus Acidophilus 1 tablet 03/16/24 09:00 03/19/24 17:54 Acidophilus/Bulgaricus Chewable Tablet PO 1 tablet BID SUNNY Administration Magnesium Hydroxide 30 ml 03/14/24 09:00 03/19/24 11:06 Magnesium Hydroxide Susp 30 Ml Udc PO 30 ml QAM SUNNY Administration Metoprolol Tartrate 6.25 mg 03/16/24 06:00 03/20/24 05:42 Metoprolol Tartrate 6.25 Mg Tablet PO 6.25 mg Q6HR SUNNY Administration Orphenadrine Citrate 100 mg 03/14/24 22:24 03/14/24 22:35 Orphenadrine Citrate 100 Mg Tablet.Er PO 100 mg Q12HR PRN Administration Muscle Spasm Polyethylene Glycol 17 gm 03/16/24 09:00 03/19/24 17:55 Polyethylene Glycol 3350 17 Gm Powd.Pack FEED TUBE Not Given BID [facility] Rosuvastatin Calcium 10 mg 03/14/24 21:00 03/19/24 21:27 Rosuvastatin 10 Mg Tablet PO 10 mg BEDTIME SUNNY Administration Radiology Results: ITS Impressions Chest X-Ray 03/13/24 15:57 Impression: 1: Cardiomegaly with mild interstitial edema. Abdomen/Pelvis CT 03/13/24 17:07 IMPRESSION: Large hiatal hernia. Findings within the liver and spleen suggesting prior granulomatous disease. Fecal stasis within the colon and distending the rectum suggesting fecal impaction. Findings at the level of the inferior endplate of L3 which demonstrate progression from previous examination, possibly representing discitis/osteomyelitis for which clinical and serologic correlation is needed. Head CT 03/13/24 19:07 Impression: No acute intracranial hemorrhage or suspicious mass effect. Labs Labs: Laboratory Results - last 24 hr 03/19/24 03/19/24 03/19/24 11:34 16:47 20:37 WBC RBC Hgb Hct MCV MCH MCHC RDW Plt Count MPV Sodium Potassium Chloride Carbon Dioxide Anion Gap BUN Creatinine Estim Creat Clear Calc Estimated GFR Glucose POC Capillary Glucose 110 H 106 H 137 H Calcium Total Bilirubin AST ALT Alkaline Phosphatase Total Protein Albumin Vancomycin Trough 03/19/24 03/19/24 03/20/24 22:04 23:29 05:44 WBC RBC Hgb Hct MCV MCH MCHC RDW Plt Count MPV Sodium Potassium Chloride Carbon Dioxide Anion Gap BUN Creatinine Estim Creat Clear Calc Estimated GFR Glucose POC Capillary Glucose 133 H 157 H Calcium Total Bilirubin AST ALT Alkaline Phosphatase Total Protein Albumin Vancomycin Trough 17.3 03/20/24 05:47 WBC 11.8 H RBC 3.54 L Hgb 9.2 L Hct 30.0 L MCV 84.7 MCH 26.0 MCHC 30.7 L RDW 17.6 H Plt Count 483 H MPV 9.6 Sodium 127 L Potassium 5.6 H Chloride 96 L Carbon Dioxide 28 Anion Gap 3 L BUN 15 Creatinine 0.70 Estim Creat Clear Calc 87 Estimated GFR > 60 Glucose 142 H POC Capillary Glucose Calcium 8.7 Total Bilirubin 0.5 AST 42 ALT 13 Alkaline Phosphatase 94 Total Protein 7.0 Albumin 3.1 L Vancomycin Trough
[2024-03-20] MEDS: ALBUTEROL SULFATE NEB 2.5 MG/3 ML INH 1.25 MG INHALATION (08:20)
[2024-03-20 08:27] LABS: Glucose Point of Care 133 mg/dl (65-105)
[2024-03-20 09:37] LABS: Potassium 4.5 mmol/L (3.4-5.0)
[2024-03-20] MEDS: MAGNESIUM HYDROXIDE SUSP 30 ML UDC PO (10:59)
[2024-03-20] MEDS: polyethylene glycoL 3350 17 GM POWD.PACK FEED TUBE ×2 (11:00→18:11)
[2024-03-20] MEDS: SODIUM ZIRCONIUM CYCLOSILICATE 10 GM POWD.PACK PO (11:00)
[2024-03-20] MEDS: ASPIRIN 81 MG CHEWABLE TABLET PO (11:00)
[2024-03-20] MEDS: ACIDOPHILUS/BULGARICUS CHEWABLE TABLET 1 TABLET PO ×2 (11:00→18:11)
[2024-03-20] MEDS: DABIGATRAN ETEXILATE 150 MG CAPSULE PO ×2 (11:00→20:47)
[2024-03-20 12:04] LABS: Glucose Point of Care 150 mg/dl (65-105)
--- NOTE | 2024-03-20 13:30 | PM.IMPN ---
Progress Note: A&P Assessment and Plan (1) Osteomyelitis of lumbar spine: Code(s): M46.26 - Osteomyelitis of vertebra, lumbar region Status: Acute Assessment and Plan: Patient awaiting bed at tertiary facility Continue vancomycin DC Zosyn (2) Hypertension: Code(s): I10 - Essential (primary) hypertension Status: Acute Assessment and Plan: Continue home meds (3) Diastolic heart failure: Code(s): I50.30 - Unspecified diastolic (congestive) heart failure Status: Acute Assessment and Plan: Daily intake and output (4) CAD (coronary artery disease), autologous vein bypass graft: Code(s): I25.810 - Atherosclerosis of coronary artery bypass graft(s) without angina pectoris Status: Acute Assessment and Plan: Chest pain-free (5) Atrial fibrillation: Onset Date: 04/20/17 Code(s): I48.91 - Unspecified atrial fibrillation Status: Chronic Assessment and Plan: Rate controlled and anticoagulated (6) Type 2 diabetes mellitus with hyperglycemia, with long-term current use of insulin: Code(s): E11.65 - Type 2 diabetes mellitus with hyperglycemia; Z79.4 - custodial (current) use of insulin Status: Acute Assessment and Plan: Continue insulin Holding sitagliptin (7) Physical deconditioning: Code(s): R53.81 - Other malaise Status: Acute Assessment and Plan: PT OT when clinically able to participate Plan MRSA bacteremia likely likely from Diskitis/osteomyelitis Blood culture positive MRSA and repeat blood culture no growth until today patient recently managed for MRSA endocarditis Cont Vanc DC Zosyn [facility] D[facility] prophylaxis on Dabigatran Awaiting transfer Subjective Date/time seen: 03/20/24 13:30 Interval history: Patient potassium was elevated 5.6. Given Lokelma 10mg PO one time. Given one time albuterol. Rechecked Potassium level shows 4.5.Repeated blood culture till now no growth. Review of Systems Review of Systems: Back pain, abdominal pain Exam Narrative: Laying in bed Const: General: comfortable, no acute distress, well developed, alert, awake, ill appearing chronically and obese Nutritional Appearance: obese Orientation/consciousness: patient oriented x3 Other: Generalized pallor HENMT: Head: normal to inspection, normocephalic and atraumatic Ears: hearing grossly normal bilaterally Face/Nose/Sinus: normal facial exam Face and sinus: normal facial exam Eyes: General: appearance normal, both eyes and all related structures Pupils: Equal, round and reactive pupils present EOM: EOMs intact bilaterally Neck: Neck: full ROM, no lymphadenopathy and no JVD Thyroid: thyroid normal Lymphatic: no lymphadenopathy noted Resp: Effort & Inspection: normal respiratory effort and able to speak in complete sentences Auscultation: clear to auscultation bilaterally Cardio: Jugular venous distension: no JVD Rate: regular rate Rhythm: regular rhythm Heart sounds: S1 normal heart sound present and S2 normal heart sound present GI: Inspection: Pannus present and obesity : General: Yes deferred Skin: Rashes: no rashes Wounds: no wounds Neuro: General: patient oriented x3, CN's II-XI intact bilaterally and Unable to assess gait Cranial nerves: Yes CN's II-XII intact bilaterally and Yes Equal, round and reactive pupils present Cognition (Neuro): normal cognition Speech: normal speech Gait exam (Neuro): Unable to assess gait Motor exam (neuro): 5/5 motor strength present throughout Extrem: General: normal to inspection, full ROM, no joint enlargement and no pedal edema Objective Data Vital Signs Vital Signs: Vital Signs - 24 hr 03/19/24 16:00 03/19/24 20:00 03/19/24 20:43 Temperature 97.8 F 98.2 F Pulse Rate 76 88 88 Respiratory Rate 20 16 16 Blood Pressure 102/57 L 107/53 L Pulse Oximetry 99 98 98 Oxygen Delivery Room Air 03/19/24 23:30 03/20/24 04:44 03/20/24 05:42 Temperature 96.3 F L Pulse Rate 68 60 61 Respiratory Rate 20 Blood Pressure 121/58 L Pulse Oximetry 100 Oxygen Delivery 03/20/24 08:00 03/20/24 08:22 Temperature 97.6 F Pulse Rate 70 63 Respiratory Rate 20 20 Blood Pressure 116/62 Pulse Oximetry 100 Oxygen Delivery Intake/Output Intake/Output: Intake & Output 03/17/24 03/18/24 03/19/24 03/20/24 23:59 23:59 23:59 23:59 Intake Total 1370 2390 970 940 Output Total 1600 1400 1900 900 Balance -230 990 -930 40 Meds/Results Medications: Active Medications Generic Name Dose Route Start Last Admin Trade Name Freq PRN Reason Stop Dose Admin Acetaminophen 1,000 mg 03/16/24 02:11 03/18/24 13:36 Acetaminophen 500 Mg Tablet PO 1,000 mg Q8H PRN Administration fever or pain Hydrocodone Bitart/Acetaminophen 1 tab 03/13/24 21:00 03/20/24 11:00 Hydrocodone/Acetaminophen (*Crx) 5-325 Mg Tablet PO 1 tab Q6H SUNNY Administration Aspirin 81 mg 03/16/24 08:00 03/20/24 11:00 Aspirin 81 Mg Chewable Tablet PO 81 mg DAILY@0800 SUNNY Administration Dabigatran 150 mg 03/16/24 09:00 03/20/24 11:00 Dabigatran Etexilate 150 Mg Capsule PO 150 mg Q12HR [facility] Administration Dextrose 12.5 gm 03/13/24 21:39 Dextrose 50% 25 Gm/50 Ml Syringe IV PUSH PRN PRN Hypoglycemia Protocol Fenofibrate 145 mg 03/16/24 21:00 03/19/24 21:27 Fenofibrate Nanocrystallized 145 Mg Tablet PO 145 mg QHS SUNNY Administration Glucagon 1 mg 03/13/24 21:39 Glucagon For Inj 1 Mg Vial IM PRN PRN Hypoglycemia Protocol Glucose 15 gm 03/13/24 21:39 Glucose Oral Gel 15 Gm Of Glucse In 37.5 Gm Tube PO PRN PRN Hypoglycemia Protocol Dextrose 1,000 mls @ 100 mls/hr 03/13/24 21:39 Dextrose 5% 1,000 Ml IVPB PRN PRN Hypoglycemia Protocol Vancomycin HCl 1,500 mg in 500 mls @ 250 mls/hr 03/17/24 23:00 03/20/24 03:29 Vancomycin 1,500 Mg/Ns 500 Ml IVPB Infused Q24H [facility] Infusion Insulin Aspart 4 - 8 units 03/16/24 06:30 03/20/24 11:02 Insulin Aspart (*Bkc) 100 Units/Ml SUB-Q Not Given ACHS [facility] Protocol Insulin Aspart 12 units 03/16/24 06:00 03/20/24 05:44 Insulin Aspart (*Bkc) 100 Units/Ml SUB-Q Not Given Q6HR [facility] Lactobacillus Acidophilus 1 tablet 03/16/24 09:00 03/20/24 11:00 Acidophilus/Bulgaricus Chewable Tablet PO 1 tablet BID [facility] Administration Magnesium Hydroxide 30 ml 03/14/24 09:00 03/20/24 10:59 Magnesium Hydroxide Susp 30 Ml Udc PO 30 ml QAM SUNNY Administration Metoprolol Tartrate 6.25 mg 03/16/24 06:00 03/20/24 05:42 Metoprolol Tartrate 6.25 Mg Tablet PO 6.25 mg Q6HR SUNNY Administration Orphenadrine Citrate 100 mg 03/14/24 22:24 03/14/24 22:35 Orphenadrine Citrate 100 Mg Tablet.Er PO 100 mg Q12HR PRN Administration Muscle Spasm Polyethylene Glycol 17 gm 03/16/24 09:00 03/20/24 11:00 Polyethylene Glycol 3350 17 Gm Powd.Pack FEED TUBE 17 gm BID SUNNY Administration Rosuvastatin Calcium 10 mg 03/14/24 21:00 03/19/24 21:27 Rosuvastatin 10 Mg Tablet PO 10 mg BEDTIME SUNNY Administration Radiology Results: ITS Impressions Chest X-Ray 03/13/24 15:57 Impression: 1: Cardiomegaly with mild interstitial edema. Abdomen/Pelvis CT 03/13/24 17:07 IMPRESSION: Large hiatal hernia. Findings within the liver and spleen suggesting prior granulomatous disease. Fecal stasis within the colon and distending the rectum suggesting fecal impaction. Findings at the level of the inferior endplate of L3 which demonstrate progression from previous examination, possibly representing discitis/osteomyelitis for which clinical and serologic correlation is needed. Head CT 03/13/24 19:07 Impression: No acute intracranial hemorrhage or suspicious mass effect. Labs Labs: Laboratory Results - last 24 hr 03/19/24 03/19/24 03/19/24 16:47 20:37 22:04 WBC RBC Hgb Hct MCV MCH MCHC RDW Plt Count MPV Sodium Potassium Chloride Carbon Dioxide Anion Gap BUN Creatinine Estim Creat Clear Calc Estimated GFR Glucose POC Capillary Glucose 106 H 137 H Calcium Total Bilirubin AST ALT Alkaline Phosphatase Total Protein Albumin Vancomycin Trough 17.3 03/19/24 03/20/24 03/20/24 23:29 05:44 05:47 WBC 11.8 H RBC 3.54 L Hgb 9.2 L Hct 30.0 L MCV 84.7 MCH 26.0 MCHC 30.7 L RDW 17.6 H Plt Count 483 H MPV 9.6 Sodium 127 L Potassium 5.6 H Chloride 96 L Carbon Dioxide 28 Anion Gap 3 L BUN 15 Creatinine 0.70 Estim Creat Clear Calc 87 Estimated GFR > 60 Glucose 142 H POC Capillary Glucose 133 H 157 H Calcium 8.7 Total Bilirubin 0.5 AST 42 ALT 13 Alkaline Phosphatase 94 Total Protein 7.0 Albumin 3.1 L Vancomycin Trough 03/20/24 03/20/24 03/20/24 08:24 09:15 11:58 WBC RBC Hgb Hct MCV MCH MCHC RDW Plt Count MPV Sodium Potassium 4.5 Chloride Carbon Dioxide Anion Gap BUN Creatinine Estim Creat Clear Calc Estimated GFR Glucose POC Capillary Glucose 133 H 150 H Calcium Total Bilirubin AST ALT Alkaline Phosphatase Total Protein Albumin Vancomycin Trough Hospitalist MIPS Advance Care Plan I have confirmed that the patient's Advanced Care Plan is present, code status is documented, or surrogate decision maker is listed in patient medical record.: Yes Medication Reconciliation I have utilized all available resources to obtain, update and review the patients current medications (includes all prescriptions, OTC, herbals, cannabis, and nutritional supplements).: Yes
[2024-03-20] MEDS: INSULIN ASPART (*BKC) 100 UNITS/ML 12 UNITS SUB-Q (13:47)
[2024-03-20 17:34] LABS: Glucose Point of Care 97 mg/dl (65-105)
[2024-03-20] MEDS: LACTULOSE 20 GM/30 ML UDC PO (18:19)
[2024-03-20 20:46] LABS: Glucose Point of Care 150 mg/dl (65-105)
[2024-03-20] MEDS: ROSUVASTATIN 10 MG TABLET PO (20:47)
[2024-03-20] MEDS: FENOFIBRATE NANOCRYSTALLIZED 145 MG TABLET PO (20:47)
[2024-03-20] MEDS: VANCOMYCIN 1,500 MG/NS 500 ML 1,500 MG/500 ML BAG 250 MG IVPB (23:03)
[2024-03-21] VITALS (8 sets, daily range): BP systolic 100–122; BP diastolic 40–71; PULSE 56–62; RESP 18; TEMP 36.3–36.5; O2SAT 99–100
[2024-03-21] MEDS: HYDROcodone/acetaminophen (*CRX) 5-325 MG TABLET 1 TAB PO ×4 (02:41→21:03)
[2024-03-21] MEDS: METOPROLOL TARTRATE 6.25 MG TABLET PO ×2 (05:06→17:58)
[2024-03-21] MEDS: ORPHENADRINE CITRATE 100 MG TABLET.ER PO (05:06)
[2024-03-21 05:34] LABS: Hematocrit 30.9 % (42.0-52.0); Hemoglobin 9.7 g/dL (14.0-18.0); Mean Corpuscular HGB Conc 31.4 g/dl (32-36); Mean Corpuscular Hemoglobin 26.1 pg (26-34); Mean Corpuscular Volume 83.3 fl (80-100); Mean Platelet Volume 9.3 fl (7.4-10.4); Platelet Count Result 506 k/mm3 (150-375); Red Blood Count 3.71 M/mm3 (4.6-6.20); Red Cell Distribution Width 17.5 % (11.5-14.5); White Blood Count 11.7 K/mm3 (4.5-10.0)
[2024-03-21 05:44] LABS: Alanine Aminotransferase 18 U/L (6-50); Albumin Level 3.1 g/dL (3.5-5.1); Alkaline Phosphatase 117 U/L (38-126); Anion Gap 8 mmol/L (4-12); Aspartate Amino Transferase 48 U/L (17-59); Bilirubin,Total 0.4 mg/dL (0.2-1.3); Blood Urea Nitrogen 17 mg/dL (9-20); Calcium 8.4 mg/dL (8.4-10.2); Carbon Dioxide 27 mmol/L (22-30); Chloride 91 mmol/L (98-107); Estimated CRCL calculation 71 ml/min; Estimated Glomerular Filt Rate > 60; Glucose 177 mg/dL (65-110); Potassium 4.8 mmol/L (3.4-5.0); Sodium 126 mmol/L (137-145)
[2024-03-21 08:43] LABS: Glucose Point of Care 174 mg/dl (65-105)
--- NOTE | 2024-03-21 09:53 | PCNFU ---
Nutrition Follow-Up Complete: Severe protein calorie malnutrition related to recent acute infection, hospitalization; increased needs from multiple pressure injuries as evidenced by weight loss -13%/3 months; intakes <75% needs >1 month; severe muscle wasting and fat loss Adequate PO intake at least 75% meals and supplements for wound healing support - Progressing. Intakes vary 25-100%. Drinking some Glucerna Goal: Pt current nutrition is Diabetic consistent carb diet. Glucerna TID for additional 220 kcal and 10 g protein each. Flex BID for additional 90 kcal, 2.5 g protein, arginine and glutamine for wound healing support. Nutrition recommendation: No new nutrition recommendations. Continue current nutrition care plan and orders. Agree with orders Last recorded weight is 90 kg. Bowel Motility: +1 BM 03/21/24 Labs Reviewed: Hgb 9.7, Hct 30.9, Alb 3.1, Na 127, Glu 177 Meds Noted: Milk of magnesia, novolog, miralax Skin: Multiple pressure injuries, +osteomyelitis to sacrum. Deep tissue injuries: Sacrum, ischium; Stage 3 buttock, heel, ischium Additional Notes: Intakes are fair to good. Plan is transfer to [place] for osteomyelitis. Continue current orders. Monitoring intakes, weights, labs, supplement tolerance, skin, plan of care Follow up in 5 days
[2024-03-21] MEDS: ACIDOPHILUS/BULGARICUS CHEWABLE TABLET 1 TABLET PO ×2 (09:58→17:57)
[2024-03-21] MEDS: polyethylene glycoL 3350 17 GM POWD.PACK FEED TUBE ×2 (09:59→17:58)
[2024-03-21] MEDS: MAGNESIUM HYDROXIDE SUSP 30 ML UDC PO (09:59)
[2024-03-21] MEDS: ASPIRIN 81 MG CHEWABLE TABLET PO (09:59)
[2024-03-21] MEDS: DABIGATRAN ETEXILATE 150 MG CAPSULE PO ×2 (09:59→21:03)
--- NOTE | 2024-03-21 10:22 | P.PNIM_ITS ---
Progress Note: A&P Assessment and Plan (1) Osteomyelitis of lumbar spine: Code(s): M46.26 - Osteomyelitis of vertebra, lumbar region Status: Acute Assessment and Plan: Patient awaiting bed at tertiary facility Continue vancomycin DC Zosyn (2) Hypertension: Code(s): I10 - Essential (primary) hypertension Status: Acute Assessment and Plan: Continue home meds (3) Diastolic heart failure: Code(s): I50.30 - Unspecified diastolic (congestive) heart failure Status: Acute Assessment and Plan: Daily intake and output (4) CAD (coronary artery disease), autologous vein bypass graft: Code(s): I25.810 - Atherosclerosis of coronary artery bypass graft(s) without angina pectoris Status: Acute Assessment and Plan: Chest pain-free (5) Atrial fibrillation: Onset Date: 04/20/17 Code(s): I48.91 - Unspecified atrial fibrillation Status: Chronic Assessment and Plan: Rate controlled and anticoagulated (6) Type 2 diabetes mellitus with hyperglycemia, with long-term current use of insulin: Code(s): E11.65 - Type 2 diabetes mellitus with hyperglycemia; Z79.4 - assisted (current) use of insulin Status: Acute Assessment and Plan: Continue insulin Holding sitagliptin (7) Physical deconditioning: Code(s): R53.81 - Other malaise Status: Acute Assessment and Plan: PT OT when clinically able to participate Plan MRSA bacteremia likely likely from Diskitis/osteomyelitis Blood culture positive MRSA and repeat blood culture no growth until today patient recently managed for MRSA endocarditis Cont Vanc DC Zosyn Continue with transfer to [facility] DVT prophylaxis on Dabigatran Awaiting transfer Subjective Date/time seen: 03/21/24 10:22 Interval history: Continues to feel better. Pending transfer Review of Systems Review of Systems: Back pain, abdominal pain Exam Narrative: Laying in bed Const: General: comfortable, no acute distress, well developed, alert, awake, ill appearing chronically and obese Nutritional Appearance: obese Orienta tion/consciousness: patient oriented x3 Other: Generalized pallor HENMT: Head: normal to inspection, normocephalic and atraumatic Ears: hearing grossly normal bilaterally Face/Nose/Sinus: normal facial exam Fac e and sinus: normal facial exam Eyes: General: appearance normal, both eyes and all related structures Pupils: Equal, round and reactive pupils present EOM: EOMs intact bilaterally Neck: Neck: full ROM, no lymphadenopathy and no JVD Thyroid: thyroid normal Lymphatic: no lymphadenopathy noted Resp: Effort & Inspection: normal respiratory effort and able to speak in complete sentences Auscultation: clear to auscultation bilaterally Cardio: Jugular venous distension: no JVD Rate: regular rate Rhythm: regular rhythm Heart sounds: S1 normal heart sound present and S2 normal heart sound present GI: Inspection: Pannus present and obesity : General: Yes deferred Skin: Rashes: no rashes Wounds: no wounds Neuro: General: patient oriented x3, CN's II-XI intact bilaterally and Unable to assess gait Cranial nerves: Yes CN's II-XII intact bilaterally and Yes Equal, round and reactive pupils present Cognition (Neuro): normal cognition Speech: normal speech Gait exam (Neuro): Unable to assess gait Motor exam (neuro): 5/5 motor strength present throughout Extrem: General: normal to inspection, full ROM, no joint enlargement and no pedal edema Objective Data Vital Signs Vital Signs: Vital Signs - 24 hr 03/20/24 13:46 03/20/24 16:00 03/20/24 18:15 Temperature 97.7 F Pulse Rate 68 60 70 Respiratory Rate 17 Blood Pressure 103/55 L Pulse Oximetry 100 Oxygen Delivery Fraction of Inspired Oxygen 03/20/24 20:19 03/20/24 20:37 03/20/24 21:35 Temperature 97.6 F Pulse Rate 116 H 60 Respiratory Rate 18 Blood Pressure 106/61 Pulse Oximetry 100 99 Oxygen Delivery Room Air Fraction of Inspired Oxygen 21 03/21/24 02:42 03/21/24 05:06 03/21/24 06:13 Temperature 97.4 F L Pulse Rate 56 L 60 60 Respiratory Rate 18 Blood Pressure 119/71 122/59 L Pulse Oximetry 100 99 Oxygen Delivery Fraction of Inspired Oxygen Intake/Output Intake/Output: Intake & Output 03/18/24 03/19/24 03/20/24 03/21/24 23:59 23:59 23:59 23:59 Intake Total 2390 970 1420 500 Output Total 1400 1900 1900 Balance 990 -930 -480 500 Meds/Results Medications: Active Medications Generic Name Dose Route Start Last Admin Trade Name Freq PRN Reason Stop Dose Admin Acetaminophen 1,000 mg 03/16/24 02:11 03/18/24 13:36 Acetaminophen 500 Mg Tablet PO 1,000 mg Q8H PRN Administration fever or pain Hydrocodone Bitart/Acetaminophen 1 tab 03/13/24 21:00 03/21/24 09:59 Hydrocodone/Acetaminophen (*Crx) 5-325 Mg Tablet PO 1 tab Q6H SUNNY Administration Aspirin 81 mg 03/16/24 08:00 03/21/24 09:59 Aspirin 81 Mg Chewable Tablet PO 81 mg DAILY@0800 SUNNY Administration Dabigatran 150 mg 03/16/24 09:00 03/21/24 09:59 Dabigatran Etexilate 150 Mg Capsule PO 150 mg Q12HR SUNNY Administration Dextrose 12.5 gm 03/13/24 21:39 Dextrose 50% 25 Gm/50 Ml Syringe IV PUSH PRN PRN Hypoglycemia Protocol Fenofibrate 145 mg 03/16/24 21:00 03/20/24 20:47 Fenofibrate Nanocrystallized 145 Mg Tablet PO 145 mg QHS SUNNY Administration Glucagon 1 mg 03/13/24 21:39 Glucagon For Inj 1 Mg Vial IM PRN PRN Hypoglycemia Protocol Glucose 15 gm 03/13/24 21:39 Glucose Oral Gel 15 Gm Of Glucse In 37.5 Gm Tube PO PRN PRN Hypoglycemia Protocol Dextrose 1,000 mls @ 100 mls/hr 03/13/24 21:39 Dextrose 5% 1,000 Ml IVPB PRN PRN Hypoglycemia Protocol Vancomycin HCl 1,500 mg in 500 mls @ 250 mls/hr 03/17/24 23:00 03/21/24 01:03 Vancomycin 1,500 Mg/Ns 500 Ml IVPB Infused Q24H [facility] Infusion Insulin Aspart 4 - 8 units 03/21/24 08:00 03/21/24 09:22 Insulin Aspart (*Bkc) 100 Units/Ml SUB-Q Not Given [facility] Protocol Insulin Aspart 12 units 03/21/24 08:00 03/21/24 09:45 Insulin Aspart (*Bkc) 100 Units/Ml SUB-Q Not Given [facility] Lactobacillus Acidophilus 1 tablet 03/16/24 09:00 03/21/24 09:58 Acidophilus/Bulgaricus Chewable Tablet PO 1 tablet BID SUNNY Administration Magnesium Hydroxide 30 ml 03/14/24 09:00 03/21/24 09:59 Magnesium Hydroxide Susp 30 Ml Udc PO 30 ml QAM SUNNY Administration Metoprolol Tartrate 6.25 mg 03/16/24 06:00 03/21/24 05:06 Metoprolol Tartrate 6.25 Mg Tablet PO 6.25 mg Q6HR SUNNY Administration Orphenadrine Citrate 100 mg 03/14/24 22:24 03/21/24 05:06 Orphenadrine Citrate 100 Mg Tablet.Er PO 100 mg Q12HR PRN Administration Muscle Spasm Polyethylene Glycol 17 gm 03/16/24 09:00 03/21/24 09:59 Polyethylene Glycol 3350 17 Gm Powd.Pack FEED TUBE 17 gm BID SUNNY Administration Rosuvastatin Calcium 10 mg 03/14/24 21:00 03/20/24 20:47 Rosuvastatin 10 Mg Tablet PO 10 mg BEDTIME SUNNY Administration Radiology Results: ITS Impressions Chest X-Ray 03/13/24 15:57 Impression: 1: Cardiomegaly with mild interstitial edema. Abdomen/Pelvis CT 03/13/24 17:07 IMPRESSION: Large hiatal hernia. Findings within the liver and spleen suggesting prior granulomatous disease. Fecal stasis within the colon and distending the rectum suggesting fecal impaction. Findings at the level of the inferior endplate of L3 which demonstrate progres adrian from previous examination, possibly representing discitis/osteomyelitis for which clinical and serologic correlation is needed. Head CT 03/13/24 19:07 Impression: No acute intracranial hemorrhage or suspicious mass effect. Labs Labs: Laboratory Results - last 24 hr 03/20/24 03/20/24 03/20/24 11:58 17:10 20:39 WBC RBC Hgb Hct MCV MCH MCHC RDW Plt Count MPV Sodium Potassium Chloride Carbon Dioxide Anion Gap BUN Creatinine Estim Creat Clear Calc Estimated GFR Glucose POC Capillary Glucose 150 H 97 150 H Calcium Total Bilirubin AST ALT Alkaline Phosphatase Total Protein Albumin 03/21/24 03/21/24 05:20 08:39 WBC 11.7 H RBC 3.71 L Hgb 9.7 L Hct 30.9 L MCV 83.3 MCH 26.1 MCHC 31.4 L RDW 17.5 H Plt Count 506 H MPV 9.3 Sodium 126 L Potassium 4.8 Chloride 91 L Carbon Dioxide 27 Anion Gap 8 BUN 17 Creatinine 0.87 Estim Creat Clear Calc 71 Estimated GFR > 60 Glucose 177 H POC Capillary Glucose 174 H Calcium 8.4 Total Bilirubin 0.4 AST 48 ALT 18 Alkaline Phosphatase 117 Total Protein 7.0 Albumin 3.1 L Hospitalist MIPS Advance Care Plan I have confirmed that the patient's Advanced Care Plan is present, code status is documented, or surrogate decision maker is listed in patient medical record.: Yes Medication Reconciliation I have utilized all available resources to obtain, update and review the patients current medications (includes all prescriptions, OTC, herbals, cannabis, and nutritional supplements).: Yes
[2024-03-21 12:14] LABS: Glucose Point of Care 149 mg/dl (65-105)
[2024-03-21 17:46] LABS: Glucose Point of Care 156 mg/dl (65-105)
[2024-03-21] MEDS: FENOFIBRATE NANOCRYSTALLIZED 145 MG TABLET PO (21:03)
[2024-03-21] MEDS: ROSUVASTATIN 10 MG TABLET PO (21:04)
[2024-03-21 21:57] LABS: Glucose Point of Care 130 mg/dl (65-105)
[2024-03-21 23:08] LABS: Hemoglobin A1C 6.5 % (<5.7)
[2024-03-22] MEDS: HYDROcodone/acetaminophen (*CRX) 5-325 MG TABLET 1 TAB PO ×4 (02:30→20:31)
[2024-03-22] MEDS: VANCOMYCIN 1,250 MG/NS 250 ML 1,250 MG/250 ML BAG 166.67 MG IVPB (05:50)
[2024-03-22 05:53] LABS: Hematocrit 28.5 % (42.0-52.0); Mean Corpuscular HGB Conc 31.6 g/dl (32-36); Mean Corpuscular Hemoglobin 26.2 pg (26-34); Mean Corpuscular Volume 82.8 fl (80-100); Mean Platelet Volume 9.2 fl (7.4-10.4); Platelet Count Result 464 k/mm3 (150-375); Red Blood Count 3.44 M/mm3 (4.6-6.20); Red Cell Distribution Width 17.5 % (11.5-14.5); White Blood Count 10.5 K/mm3 (4.5-10.0)
[2024-03-22 06:00] VITALS: BP 120/60; BP 128/60; PULSE 62; RESP 18; TEMP 36.3; O2SAT 100
[2024-03-22 06:02] VITALS: PULSE 62
[2024-03-22] MEDS: METOPROLOL TARTRATE 6.25 MG TABLET PO ×2 (06:02→12:17)
[2024-03-22] MEDS: ORPHENADRINE CITRATE 100 MG TABLET.ER PO (06:02)
[2024-03-22 06:14] LABS: Alanine Aminotransferase 15 U/L (6-50); Alkaline Phosphatase 111 U/L (38-126); Anion Gap 5 mmol/L (4-12); Aspartate Amino Transferase 47 U/L (17-59); Bilirubin,Total 0.4 mg/dL (0.2-1.3); Blood Urea Nitrogen 14 mg/dL (9-20); Calcium 8.4 mg/dL (8.4-10.2); Carbon Dioxide 29 mmol/L (22-30); Chloride 90 mmol/L (98-107); Estimated CRCL calculation 75 ml/min; Estimated Glomerular Filt Rate > 60; Glucose 155 mg/dL (65-110); Sodium 124 mmol/L (137-145)
[2024-03-22] MEDS: MAGNESIUM HYDROXIDE SUSP 30 ML UDC PO (08:26)
[2024-03-22] MEDS: polyethylene glycoL 3350 17 GM POWD.PACK FEED TUBE ×2 (08:26→17:25)
[2024-03-22] MEDS: ASPIRIN 81 MG CHEWABLE TABLET PO (08:27)
[2024-03-22] MEDS: DABIGATRAN ETEXILATE 150 MG CAPSULE PO ×2 (08:27→20:31)
[2024-03-22] MEDS: ACIDOPHILUS/BULGARICUS CHEWABLE TABLET 1 TABLET PO ×2 (08:27→17:25)
[2024-03-22 08:28] LABS: Glucose Point of Care 133 mg/dl (65-105)
--- NOTE | 2024-03-22 10:10 | P.PNIM_ITS ---
Progress Note: A&P Assessment and Plan (1) Osteomyelitis of lumbar spine: Code(s): M46.26 - Osteomyelitis of vertebra, lumbar region Status: Acute Assessment and Plan: Patient awaiting bed at tertiary facility Continue vancomycin DC Zosyn (2) Hypertension: Code(s): I10 - Essential (primary) hypertension Status: Acute Assessment and Plan: Continue home meds (3) Diastolic heart failure: Code(s): I50.30 - Unspecified diastolic (congestive) heart failure Status: Acute Assessment and Plan: Daily intake and output (4) CAD (coronary artery disease), autologous vein bypass graft: Code(s): I25.810 - Atherosclerosis of coronary artery bypass graft(s) without angina pectoris Status: Acute Assessment and Plan: Chest pain-free (5) Atrial fibrillation: Onset Date: 04/20/17 Code(s): I48.91 - Unspecified atrial fibrillation Status: Chronic Assessment and Plan: Rate controlled and anticoagulated (6) Type 2 diabetes mellitus with hyperglycemia, with long-term current use of insulin: Code(s): E11.65 - Type 2 diabetes mellitus with hyperglycemia; Z79.4 - correction (current) use of insulin Status: Acute Assessment and Plan: Continue insulin Holding sitagliptin (7) Physical deconditioning: Code(s): R53.81 - Other malaise Status: Acute Assessment and Plan: PT OT when clinically able to participate Plan MRSA bacteremia likely likely from Diskitis/osteomyelitis Blood culture positive MRSA and repeat blood culture no growth until today patient recently managed for MRSA endocarditis Cont Vanc DC Zosyn Continue with transfer to [facility] DVT prophylaxis on Dabigatran Awaiting transfer Subjective Date/time seen: 03/22/24 10:10 Interval history: Pending transfer to [facility].Continue to feel better Review of Systems Review of Systems: Back pain, abdominal pain Exam Narrative: Laying in bed Const: General: comfortable, no acute distress, well developed, alert, awake, ill appearing chronically and obese Nutritional Appearance: obese Ravi entation/consciousness: patient oriented x3 Other: Generalized pallor HENMT: Head: normal to inspection, normocephalic and atraumatic Ears: hearing grossly normal bilaterally Face/Nose/Sinus: normal facial exam Face and sinus: normal facial exam Eyes: General: appearance normal, both eyes and all related structures Pupils: Equal, round and reactive pupils present EOM: EOMs intact bilaterally Neck: Neck: full ROM, no lymphadenopathy and no JVD Thyroid: thyroid normal Lymphatic: no lymphadenopathy noted Resp: Effort & Inspection: normal respiratory effort and able to speak in complete sentences Auscultation: clear to auscultation bilaterally Cardio: Jugular venous distension: no JVD Rate: regular rate Rhythm: regular rhythm Heart sounds: S1 normal heart sound present and S2 normal heart sound present GI: Inspection: Pannus present and obesity : General: Yes deferred Skin: Rashes: no rashes Wounds: no wounds Neuro: General: patient oriented x3, CN's II-XI intact bilaterally and Unable to assess gait Cranial nerves: Yes CN's II-XII intact bilaterally and Yes Equal, round and reactive pupils present Cognition (Neuro): normal cognition Speech: normal speech Gait exam (Neuro): Unable to assess gait Motor exam (neuro): 5/5 motor strength present throughout Extrem: General: normal to inspection, full ROM, no joint enlargement and no pedal edema Objective Data Vital Signs Vital Signs: Vital Signs - 24 hr 03/21/24 14:00 03/21/24 17:58 03/21/24 21:05 Temperature 97.7 F 97.4 F L Pulse Rate 60 59 L 62 Respiratory Rate 18 18 Blood Pressure 102/64 102/68 Pulse Oximetry 100 100 03/21/24 23:37 03/22/24 06:00 03/22/24 06:00 Temperature 97.3 F L Pulse Rate 62 Respiratory Rate 18 Blood Pressure 100/40 L 120/60 128/60 Pulse Oximetry 100 03/22/24 06:02 Temperature Pulse Rate 62 Respiratory Rate Blood Pressure Pulse Oximetry Intake/Output Intake/Output: Intake & Output 03/19/24 03/20/24 03/21/24 03/22/24 23:59 23:59 23:59 23:59 Intake Total 970 1420 980 890 Output Total 1900 1900 1000 1050 [facility] -930 -480 -20 -160 Meds/Results Medications: Active Medications Generic Name Dose Route Start Last Admin Trade Name Freq PRN Reason Stop Dose Admin Acetaminophen 1,000 mg 03/16/24 02:11 03/18/24 13:36 Acetaminophen 500 Mg Tablet PO 1,000 mg Q8H PRN Administration fever or pain Hydrocodone Bitart/Acetaminophen 1 tab 03/13/24 21:00 03/22/24 08:26 Hydrocodone/Acetaminophen (*Crx) 5-325 Mg Tablet PO 1 tab Q6H SUNNY Administration Aspirin 81 mg 03/16/24 08:00 03/22/24 08:27 Aspirin 81 Mg Chewable Tablet PO 81 mg DAILY@0800 SUNNY Administration Dabigatran 150 mg 03/16/24 09:00 03/22/24 08:27 Dabigatran Etexilate 150 Mg Capsule PO 150 mg Q12HR SUNNY Administration Dextrose 12.5 gm 03/13/24 21:39 Dextrose 50% 25 Gm/50 Ml Syringe IV PUSH PRN PRN Hypoglycemia Protocol Fenofibrate 145 mg 03/16/24 21:00 03/21/24 21:03 Fenofibrate Nanocrystallized 145 Mg Tablet PO 145 mg QHS SUNNY Administration Glucagon 1 mg 03/13/24 21:39 Glucagon For Inj 1 Mg Vial IM PRN PRN Hypoglycemia Protocol Glucose 15 gm 03/13/24 21:39 Glucose Oral Gel 15 Gm Of Glucse In 37.5 Gm Tube PO PRN PRN Hypoglycemia Protocol Dextrose 1,000 mls @ 100 mls/hr 03/13/24 21:39 Dextrose 5% 1,000 Ml IVPB PRN PRN Hypoglycemia Protocol Vancomycin HCl 1,250 mg in 250 mls @ 166.667 mls/hr 03/22/24 06:00 03/22/24 07:20 Vancomycin 1,250 Mg/Ns 250 Ml IVPB Infused Q24H [facility] Infusion Insulin Aspart 4 - 8 units 03/21/24 08:00 03/22/24 08:27 Insulin Aspart (*Bkc) 100 Units/Ml SUB-Q Not Given [facility] Protocol Lactobacillus Acidophilus 1 tablet 03/16/24 09:00 03/22/24 08:27 Acidophilus/Bulgaricus Chewable Tablet PO 1 tablet BID SUNNY Administration Magnesium Hydroxide 30 ml 03/14/24 09:00 03/22/24 08:26 Magnesium Hydroxide Susp 30 Ml Udc PO 30 ml QAM SUNNY Administration Metoprolol Tartrate 6.25 mg 03/16/24 06:00 03/22/24 06:02 Metoprolol Tartrate 6.25 Mg Tablet PO 6.25 mg Q6HR SUNNY Administration Orphenadrine Citrate 100 mg 03/14/24 22:24 03/22/24 06:02 Orphenadrine Citrate 100 Mg Tablet.Er PO 100 mg Q12HR PRN Administration Muscle Spasm Polyethylene Glycol 17 gm 03/16/24 09:00 03/22/24 08:26 Polyethylene Glycol 3350 17 Gm Powd.Pack FEED TUBE 17 gm BID SUNNY Administration Rosuvastatin Calcium 10 mg 03/14/24 21:00 03/21/24 21:04 Rosuvastatin 10 Mg Tablet PO 10 mg BEDTIME SUNNY Administration Radiology Results: ITS Impressions Chest X-Ray 03/13/24 15:57 Impression: 1: Cardiomegaly with mild interstitial edema. Abdomen/Pelvis CT 03/13/24 17:07 IMPRESSION: Large hiatal hernia. Findings within the liver and spleen suggesting prior granulomatous disease. Fecal stasis within the colon and distending the rectum suggesting fecal impaction. Findings at the level of the inferior endplate of L3 which demonstrate progression from previous examination, possibly representing discitis/osteomyelitis for which clinical and serologic correlation is needed. Head CT 03/13/24 19:07 Impression: No acute intracranial hemorrhage or suspicious mass effect. Labs Labs: Laboratory Results - last 24 hr 03/21/24 03/21/24 03/21/24 12:07 17:43 20:51 WBC RBC Hgb Hct MCV MCH MCHC RDW Plt Count MPV Sodium Potassium Chloride Carbon Dioxide Anion Gap BUN Creatinine Estim Creat Clear Calc Estimated GFR Glucose POC Capillary Glucose 149 H 156 H 130 H Hemoglobin A1c Calcium Total Bilirubin AST ALT Alkaline Phosphatase Total Protein Albumin Vancomycin Trough 03/21/24 03/22/24 03/22/24 22:38 05:14 08:25 WBC 10.5 H RBC 3.44 L Hgb 9.0 L Hct 28.5 L MCV 82.8 MCH 26.2 MCHC 31.6 L RDW 17.5 H Plt Count 464 H MPV 9.2 Sodium 124 L Potassium 5.0 Chloride 90 L Carbon Dioxide 29 Anion Gap 5 BUN 14 Creatinine 0.82 Estim Creat Clear Calc 75 Estimated GFR > 60 Glucose 155 H POC Capillary Glucose 133 H Hemoglobin A1c 6.5 H Calcium 8.4 Total Bilirubin 0.4 AST 47 ALT 15 Alkaline Phosphatase 111 Total Protein 7.0 Albumin 3.0 L Vancomycin Trough 21.0 H Hospitalist MIPS Advance Care Plan I have confirmed that the patient's Advanced Care Plan is present, code status is documented, or surrogate decision maker is listed in patient medical record.: Yes Medication Reconciliation I have utilized all available resources to obtain, update and review the patients current medications (includes all prescriptions, OTC, herbals, cannabis, and nutritional supplements).: Yes
[2024-03-22 12:12] LABS: Glucose Point of Care 119 mg/dl (65-105)
[2024-03-22 12:17] VITALS: PULSE 80
[2024-03-22 14:00] VITALS: BP 99/40; PULSE 69; RESP 18; TEMP 36.2; O2SAT 99
[2024-03-22 16:36] LABS: Hematocrit 29.8 % (42.0-52.0); Hemoglobin 9.3 g/dL (14.0-18.0); Mean Corpuscular HGB Conc 31.2 g/dl (32-36); Mean Corpuscular Hemoglobin 25.9 pg (26-34); Platelet Count Result 466 k/mm3 (150-375); Red Blood Count 3.59 M/mm3 (4.6-6.20); Red Cell Distribution Width 17.3 % (11.5-14.5); White Blood Count 9.4 K/mm3 (4.5-10.0)
[2024-03-22 16:59] LABS: Alanine Aminotransferase 15 U/L (6-50); Albumin Level 3.1 g/dL (3.5-5.1); Alkaline Phosphatase 111 U/L (38-126); Anion Gap 5 mmol/L (4-12); Aspartate Amino Transferase 34 U/L (17-59); Bilirubin,Total 0.5 mg/dL (0.2-1.3); Blood Urea Nitrogen 14 mg/dL (9-20); Calcium 8.8 mg/dL (8.4-10.2); Carbon Dioxide 29 mmol/L (22-30); Chloride 92 mmol/L (98-107); Estimated CRCL calculation 82 ml/min; Estimated Glomerular Filt Rate > 60; Glucose 148 mg/dL (65-110); Potassium 4.9 mmol/L (3.4-5.0); Sodium 126 mmol/L (137-145)
[2024-03-22 18:46] LABS: Glucose Point of Care 124 mg/dl (65-105)
[2024-03-22] MEDS: FENOFIBRATE NANOCRYSTALLIZED 145 MG TABLET PO (20:31)
[2024-03-22] MEDS: ROSUVASTATIN 10 MG TABLET PO (20:31)
[2024-03-22 21:37] VITALS: BP 102/48; PULSE 59; RESP 20; TEMP 36.5; O2SAT 100
[2024-03-22 22:27] LABS: Glucose Point of Care 144 mg/dl (65-105)
[2024-03-22 23:49] VITALS: BP 108/44; PULSE 62; O2SAT 99
[2024-03-23] VITALS (7 sets, daily range): BP systolic 100–162; BP diastolic 51–66; PULSE 54–62; RESP 16–18; TEMP 36.4–37.2; O2SAT 100
[2024-03-23] MEDS: METOPROLOL TARTRATE 6.25 MG TABLET PO
[2024-03-23] MEDS: HYDROcodone/acetaminophen (*CRX) 5-325 MG TABLET 1 TAB PO ×4 (02:30→20:43)
[2024-03-23] MEDS: VANCOMYCIN 1,250 MG/NS 250 ML 1,250 MG/250 ML BAG 166 MG IVPB (05:52)
[2024-03-23 08:22] LABS: Glucose Point of Care 155 mg/dl (65-105)
[2024-03-23] MEDS: ACIDOPHILUS/BULGARICUS CHEWABLE TABLET 1 TABLET PO ×2 (09:43→17:43)
[2024-03-23] MEDS: DABIGATRAN ETEXILATE 150 MG CAPSULE PO ×2 (09:43→20:43)
[2024-03-23] MEDS: ASPIRIN 81 MG CHEWABLE TABLET PO (09:43)
--- NOTE | 2024-03-23 12:20 | P.PNIM_ITS ---
Progress Note: A&P Assessment and Plan (1) Osteomyelitis of lumbar spine: Code(s): M46.26 - Osteomyelitis of vertebra, lumbar region Status: Acute Assessment and Plan: Patient awaiting bed at tertiary facility Continue vancomycin DC Zosyn (2) Hypertension: Code(s): I10 - Essential (primary) hypertension Status: Acute Assessment and Plan: Continue home meds (3) Diastolic heart failure: Code(s): I50.30 - Unspecified diastolic (congestive) heart failure Status: Acute Assessment and Plan: Daily intake and output (4) CAD (coronary artery disease), autologous vein bypass graft: Code(s): I25.810 - Atherosclerosis of coronary artery bypass graft(s) without angina pectoris Status: Acute Assessment and Plan: Chest pain-free (5) Atrial fibrillation: Onset Date: 04/20/17 Code(s): I48.91 - Unspecified atrial fibrillation Status: Chronic Assessment and Plan: Rate controlled and anticoagulated (6) Type 2 diabetes mellitus with hyperglycemia, with long-term current use of insulin: Code(s): E11.65 - Type 2 diabetes mellitus with hyperglycemia; Z79.4 - [facility] (current) use of insulin Status: Acute Assessment and Plan: Continue insulin Holding sitagliptin (7) Physical deconditioning: Code(s): R53.81 - Other malaise Status: Acute Assessment and Plan: PT OT when clinically able to participate Plan MRSA bacteremia likely likely from Diskitis/osteomyelitis Blood culture positive MRSA and repeat blood culture no growth until today patient recently managed for MRSA endocarditis Cont Vanc DC Zosyn Continue with transfer to [facility] DVT prophylaxis on Dabigatran Awaiting transfer Subjective Date/time seen: 03/23/24 12:20 Interval history: Pending transfer to [facility].No acute events. Review of Systems Review of Systems: Back pain, abdominal pain Exam Narrative: Laying in bed Const: General: comfortable, no acute distress, well developed, alert, awake, ill appearing chronically and obese Nutritional Appearance: obese Orientation/consciousness: patient oriented x3 Other: Generalized pallor HENMT: Head: normal to inspection, normocephalic and atraumatic Ears: hearing grossly normal bilaterally Face/Nose/Sinus: normal facial exam Face and sinus: normal facial exam Eyes: General: appearance normal, both eyes and all related structures Pupils: Equal, round and reactive pupils present EOM: EOMs intact bilaterally Neck: Neck: full ROM, no lymphadenopathy and no JVD Thyroid: thyroid normal Lymphatic: no lymphadenopathy noted Resp: Effort & Inspection: normal respiratory effort and able to speak in complete sentences Auscultation: clear to auscultation bilaterally Cardio: Jugular venous distension: no JVD Rate: regular rate Rhythm: regular rhythm Heart sounds: S1 normal heart sound present and S2 normal heart sound present GI: Inspection: Pannus present and obesity : General: Yes deferred Skin: Rashes: no rashes Wounds: no wounds Neuro: General: patient oriented x3, CN's II-XI intact bilaterally and Unable to assess gait Cranial nerves: Yes CN's II-XII intact bilaterally and Yes Equal, round and reactive pupils present Cognition (Neuro): normal cognition Speech: normal speech Gait exam (Neuro): Unable to assess gait Motor exam (neuro): 5/5 motor strength present throughout Extrem: General: normal to inspection, full ROM, no joint enlargement and no pedal edema Objective Data Vital Signs Vital Signs: Vital Signs - 24 hr 03/22/24 14:00 03/22/24 21:37 03/22/24 23:49 Temperature 97.1 F L 97.7 F Pulse Rate 69 59 L 62 Respiratory Rate 18 20 Blood Pressure 99/40 L 102/48 L 108/44 L Pulse Oximetry 99 100 99 03/23/24 00:00 03/23/24 05:19 03/23/24 05:31 Temperature 97.5 F L Pulse Rate 62 59 L 59 L Respiratory Rate 18 Blood Pressure 100/55 L Pulse Oximetry 100 Intake/Output Intake/Output: Intake & Output 03/20/24 03/21/24 03/22/24 03/23/24 23:59 23:59 23:59 23:59 Intake Total 3432 011 6789 590 Output Total 1900 1000 2650 500 [facility] [place] - 90 Meds/Results Medications: Active Medications Generic Name Dose Route Start Last Admin Trade Name Freq PRN Reason Stop Dose Admin Acetaminophen 1,000 mg 03/16/24 02:11 03/23/24 00:00 Acetaminophen 500 Mg Tablet PO 1,000 mg Q8H PRN Administration fever or pain Hydrocodone Bitart/Acetaminophen 1 tab 03/13/24 21:00 03/23/24 09:43 Hydrocodone/Acetaminophen (*Crx) 5-325 Mg Tablet PO 1 tab Q6H SUNNY Administration Aspirin 81 mg 03/16/24 08:00 03/23/24 09:43 Aspirin 81 Mg Chewable Tablet PO 81 mg DAILY@0800 SUNNY Administration Dabigatran 150 mg 03/16/24 09:00 03/23/24 09:43 Dabigatran Etexilate 150 Mg Capsule PO 150 mg Q12HR SUNNY Administration Dextrose 12.5 gm 03/13/24 21:39 Dextrose 50% 25 Gm/50 Ml Syringe IV PUSH PRN PRN Hypoglycemia Protocol Fenofibrate 145 mg 03/16/24 21:00 03/22/24 20:31 Fenofibrate Nanocrystallized 145 Mg Tablet PO 145 mg QHS SUNNY Administration Glucagon 1 mg 03/13/24 21:39 Glucagon For Inj 1 Mg Vial IM PRN PRN Hypoglycemia Protocol Glucose 15 gm 03/13/24 21:39 Glucose Oral Gel 15 Gm Of Glucse In 37.5 Gm Tube PO PRN PRN Hypoglycemia Protocol Dextrose 1,000 mls @ 100 mls/hr 03/13/24 21:39 Dextrose 5% 1,000 Ml IVPB PRN PRN Hypoglycemia Protocol Vancomycin HCl 1,250 mg in 250 mls @ 166.667 mls/hr 03/22/24 06:00 03/23/24 05:52 Vancomycin 1,250 Mg/Ns 250 Ml IVPB 166 mls/hr Q24H SUNNY Administration Insulin Aspart 4 - 8 units 03/21/24 08:00 03/23/24 09:43 Insulin Aspart (*Bkc) 100 Units/Ml SUB-Q Not Given [facility] SUNNY Protocol Lactobacillus Acidophilus 1 tablet 03/16/24 09:00 03/23/24 09:43 Acidophilus/Bulgaricus Chewable Tablet PO 1 tablet BID SUNNY Administration Magnesium Hydroxide 30 ml 03/14/24 09:00 03/23/24 09:43 Magnesium Hydroxide Susp 30 Ml Udc PO 30 ml QAM SUNNY Administration Metoprolol Tartrate 6.25 mg 03/16/24 06:00 03/23/24 11:58 Metoprolol Tartrate 6.25 Mg Tablet PO Not Given Q6HR [facility] Miscellaneous Information 1 each 03/22/24 00:01 03/23/24 07:37 [place] Will If Not Renewed XX 04/21/24 00:00 Not Given CLARIFY SUNNY Orphenadrine Citrate 100 mg 03/14/24 22:24 03/22/24 06:02 Orphenadrine Citrate 100 Mg Tablet.Er PO 100 mg Q12HR PRN Administration Muscle Spasm Polyethylene Glycol 17 gm 03/16/24 09:00 03/23/24 09:43 Polyethylene Glycol 3350 17 Gm Powd.Pack FEED TUBE 17 gm BID SUNNY Administration Rosuvastatin Calcium 10 mg 03/14/24 21:00 03/22/24 20:31 Rosuvastatin 10 Mg Tablet PO 10 mg BEDTIME SUNNY Administration Radiology Results: ITS Impressions Chest X-Ray 03/13/24 15:57 Impression: 1: Cardiomegaly with mild interstitial edema. Abdomen/Pelvis CT 03/13/24 17:07 IMPRESSION: Large hiatal hernia. Findings within the liver and spleen suggesting prior granulomatous disease. Fecal stasis within the colon and distending the rectum suggesting fecal impaction. Findings at the level of the inferior endplate of L3 which demonstrate progression from previous examination, possibly representing discitis/osteomyelitis for which clinical and serologic correlation is needed. Head CT 03/13/24 19:07 Impression: No acute intracranial hemorrhage or suspicious mass effect. Labs Labs: Laboratory Results - last 24 hr 03/22/24 03/22/24 03/22/24 16:30 17:02 21:35 WBC 9.4 RBC 3.59 L Hgb 9.3 L Hct 29.8 L MCV 83.0 MCH 25.9 L MCHC 31.2 L RDW 17.3 H Plt Count 466 H MPV 9.0 Sodium 126 L Potassium 4.9 Chloride 92 L Carbon Dioxide 29 Anion Gap 5 BUN 14 Creatinine 0.76 Estim Creat Clear Calc 82 Estimated GFR > 60 Glucose 148 H POC Capillary Glucose 124 H 144 H Calcium 8.8 Total Bilirubin 0.5 AST 34 ALT 15 Alkaline Phosphatase 111 Total Protein 7.0 Albumin 3.1 L 03/23/24 08:19 WBC RBC Hgb Hct MCV MCH MCHC RDW Plt Count MPV Sodium Potassium Chloride Carbon Dioxide Anion Gap BUN Creatinine Estim Creat Clear Calc Estimated GFR Glucose POC Capillary Glucose 155 H Calcium Total Bilirubin AST ALT Alkaline Phosphatase Total Protein Albumin Hospitalist MIPS Advance Care Plan I have confirmed that the patient's Advanced Care Plan is present, code status is documented, or surrogate decision maker is listed in patient medical record.: Yes Medication Reconciliation I have utilized all available resources to obtain, update and review the patients current medications (includes all prescriptions, OTC, herbals, cannabis, and nutritional supplements).: Yes
[2024-03-23 12:30] LABS: Glucose Point of Care 117 mg/dl (65-105)
[2024-03-23 17:28] LABS: Glucose Point of Care 118 mg/dl (65-105)
[2024-03-23] MEDS: ACETAMINOPHEN 500 MG TABLET 1000 MG PO ×2 (17:43)
[2024-03-23] MEDS: polyethylene glycoL 3350 17 GM POWD.PACK FEED TUBE (17:44)
[2024-03-23] MEDS: FENOFIBRATE NANOCRYSTALLIZED 145 MG TABLET PO (20:43)
[2024-03-23] MEDS: ROSUVASTATIN 10 MG TABLET PO (20:43)
[2024-03-23 22:10] LABS: Glucose Point of Care 156 mg/dl (65-105)
[2024-03-24] MEDS: ORPHENADRINE CITRATE 100 MG TABLET.ER PO (00:59)
[2024-03-24] MEDS: ACETAMINOPHEN 500 MG TABLET 1000 MG PO ×3 (01:20→23:30)
[2024-03-24] MEDS: HYDROcodone/acetaminophen (*CRX) 5-325 MG TABLET 1 TAB PO ×4 (03:41→20:14)
[2024-03-24 05:57] VITALS: PULSE 56
[2024-03-24 06:00] VITALS: BP 115/54; PULSE 56; RESP 16; TEMP 36.9; O2SAT 97
[2024-03-24 06:15] LABS: Hematocrit 28.4 % (42.0-52.0); Hemoglobin 8.9 g/dL (14.0-18.0); Mean Corpuscular HGB Conc 31.3 g/dl (32-36); Mean Corpuscular Hemoglobin 25.7 pg (26-34); Mean Corpuscular Volume 82.1 fl (80-100); Platelet Count Result 433 k/mm3 (150-375); Red Blood Count 3.46 M/mm3 (4.6-6.20); Red Cell Distribution Width 17.6 % (11.5-14.5); White Blood Count 10.4 K/mm3 (4.5-10.0)
[2024-03-24 06:32] LABS: Alanine Aminotransferase 13 U/L (6-50); Albumin Level 3.1 g/dL (3.5-5.1); Alkaline Phosphatase 104 U/L (38-126); Anion Gap 6 mmol/L (4-12); Aspartate Amino Transferase 33 U/L (17-59); Bilirubin,Total 0.5 mg/dL (0.2-1.3); Blood Urea Nitrogen 13 mg/dL (9-20); Calcium 8.6 mg/dL (8.4-10.2); Carbon Dioxide 25 mmol/L (22-30); Chloride 92 mmol/L (98-107); Estimated CRCL calculation 100 ml/min; Estimated Glomerular Filt Rate > 60; Glucose 126 mg/dL (65-110); Potassium 4.4 mmol/L (3.4-5.0); Sodium 123 mmol/L (137-145)
[2024-03-24 06:47] LABS: Vancomycin Trough 15.9 ug/mL (10.0-20.0)
[2024-03-24 08:01] LABS: Glucose Point of Care 127 mg/dl (65-105)
[2024-03-24] MEDS: ASPIRIN 81 MG CHEWABLE TABLET PO (08:04)
[2024-03-24] MEDS: DABIGATRAN ETEXILATE 150 MG CAPSULE PO ×2 (08:04→20:14)
[2024-03-24] MEDS: MAGNESIUM HYDROXIDE SUSP 30 ML UDC PO (08:05)
[2024-03-24] MEDS: polyethylene glycoL 3350 17 GM POWD.PACK FEED TUBE ×2 (08:05→17:05)
[2024-03-24] MEDS: ACIDOPHILUS/BULGARICUS CHEWABLE TABLET 1 TABLET PO ×2 (08:05→17:05)
[2024-03-24] MEDS: SODIUM CHLORIDE 1 GM TABLET PO ×2 (08:05→17:05)
[2024-03-24] MEDS: VANCOMYCIN 1,250 MG/NS 250 ML 1,250 MG/250 ML BAG 166.67 MG IVPB (08:15)
[2024-03-24 11:57] LABS: Glucose Point of Care 130 mg/dl (65-105)
[2024-03-24 13:13] LABS: MRSA (PCR) NOT DETECTED (NOT DETECTE)
[2024-03-24 14:00] VITALS: BP 118/64; PULSE 60; RESP 22; TEMP 36.4; O2SAT 98
--- NOTE | 2024-03-24 15:27 | P.PNIM_ITS ---
Progress Note: A&P Assessment and Plan (1) Osteomyelitis of lumbar spine: Code(s): M46.26 - Osteomyelitis of vertebra, lumbar region Status: Acute Assessment and Plan: Patient awaiting bed at tertiary facility Continue vancomycin DC Zosyn (2) Hypertension: Code(s): I10 - Essential (primary) hypertension Status: Acute Assessment and Plan: Continue home meds (3) Diastolic heart failure: Code(s): I50.30 - Unspecified diastolic (congestive) heart failure Status: Acute Assessment and Plan: Daily intake and output (4) CAD (coronary artery disease), autologous vein bypass graft: Code(s): I25.810 - Atherosclerosis of coronary artery bypass graft(s) without angina pectoris Status: Acute Assessment and Plan: Chest pain-free (5) Atrial fibrillation: Onset Date: 04/20/17 Code(s): I48.91 - Unspecified atrial fibrillation Status: Chronic Assessment and Plan: Rate controlled and anticoagulated (6) Type 2 diabetes mellitus with hyperglycemia, with long-term current use of insulin: Code(s): E11.65 - Type 2 diabetes mellitus with hyperglycemia; Z79.4 - residential (current) use of insulin Status: Acute Assessment and Plan: Continue insulin Holding sitagliptin (7) Physical deconditioning: Code(s): R53.81 - Other malaise Status: Acute Assessment and Plan: PT OT when clinically able to participate Plan MRSA bacteremia likely likely from Diskitis/osteomyelitis Blood culture positive MRSA and repeat blood culture no growth until today patient recently managed for MRSA endocarditis Cont Vanc DC Zosyn Continue with transfer to [facility] DVT prophylaxis on Dabigatran Awaiting transfer Subjective Date/time seen: 03/24/24 15:27 Interval history: No acute events. Nasal MRSA negative. Isolation has been removed. Review of Systems Review of Systems: Back pain, abdominal pain Exam Narrative: Laying in bed Const: General: comfortable, no acute distress, well developed, alert, awake, ill appearing chronically and obese Nutritional Appearance: obese Orientation/consciousness: patient oriented x3 Other: Generalized pallor HENMT: Head: normal to inspection, normocephalic and atraumatic Ears: hearing grossly normal bilaterally Face/Nose/Sinus: normal facial exam Face and sinus: normal facial exam Eyes: General: appearance normal, both eyes and all related structures Pupils: Equal, round and reactive pupils present EOM: EOMs intact bilaterally Neck: Neck: full ROM, no lymphadenopathy and no JVD Thyroid: thyroid normal Lymphatic: no lymphadenopathy noted Resp: Effort & Inspection: normal respiratory effort and able to speak in complete sentences Auscultation: clear to auscultation bilaterally Cardio: Jugular venous distension: no JVD Rate: regular rate Rhythm: regular rhythm Heart sounds: S1 normal heart sound present and S2 normal heart sound present GI: Inspection: Pannus present and obesity : General: Yes deferred Skin: Rashes: no rashes Wounds: no wounds Neuro: General: patient oriented x3, CN's II-XI intact bilaterally and Unable to assess gait Cranial nerves: Yes CN's II-XII intact bilaterally and Yes Equal, round and reactive pupils present Cognition (Neuro): normal cognition Speech: normal speech Gait exam (Neuro): Unable to assess gait Motor exam (neuro): 5/5 motor strength present throughout Extrem: General: normal to inspection, full ROM, no joint enlargement and no pedal edema Objective Data Vital Signs Vital Signs: Vital Signs - 24 hr 03/23/24 20:40 03/23/24 22:00 03/23/24 23:03 Temperature 98.9 F Pulse Rate 57 L 61 57 L Respiratory Rate 18 18 Blood Pressure 162/66 H Pulse Oximetry 100 100 Oxygen Delivery Room Air Fraction of Inspired Oxygen 03/24/24 05:57 03/24/24 06:00 Temperature 98.4 F Pulse Rate 56 L 56 L Respiratory Rate 16 Blood Pressure 115/54 L Pulse Oximetry 97 Oxygen Delivery Fraction of Inspired Oxygen Intake/Output Intake/Output: Intake & Output 03/21/24 03/22/24 03/23/24 03/24/24 23:59 23:59 23:59 23:59 Intake Total 980 1370 2580 590 Output Total 1000 2650 1425 200 Balance -20 -1280 1155 390 Meds/Results Medications: Active Medications Generic Name Dose Route Start Last Admin Trade Name Freq PRN Reason Stop Dose Admin Acetaminophen 1,000 mg 03/16/24 02:11 03/24/24 12:50 Acetaminophen 500 Mg Tablet PO 1,000 mg Q8H PRN Administration fever or pain Hydrocodone Bitart/Acetaminophen 1 tab 03/13/24 21:00 03/24/24 14:01 Hydrocodone/Acetaminophen (*Crx) 5-325 Mg Tablet PO 03/30/24 23:59 1 tab Q6H SUNNY Administration Aspirin 81 mg 03/16/24 08:00 03/24/24 08:04 Aspirin 81 Mg Chewable Tablet PO 81 mg DAILY@0800 SUNNY Administration Dabigatran 150 mg 03/16/24 09:00 03/24/24 08:04 Dabigatran Etexilate 150 Mg Capsule PO 150 mg Q12HR SUNNY Administration Dextrose 12.5 gm 03/13/24 21:39 Dextrose 50% 25 Gm/50 Ml Syringe IV PUSH PRN PRN Hypoglycemia Protocol Fenofibrate 145 mg 03/16/24 21:00 03/23/24 20:43 Fenofibrate Nanocrystallized 145 Mg Tablet PO 145 mg QHS SUNNY Administration Glucagon 1 mg 03/13/24 21:39 Glucagon For Inj 1 Mg Vial IM PRN PRN Hypoglycemia Protocol Glucose 15 gm 03/13/24 21:39 Glucose Oral Gel 15 Gm Of Glucse In 37.5 Gm Tube PO PRN PRN Hypoglycemia Protocol Dextrose 1,000 mls @ 100 mls/hr 03/13/24 21:39 Dextrose 5% 1,000 Ml IVPB PRN PRN Hypoglycemia Protocol Vancomycin HCl 1,250 mg in 250 mls @ 166.667 mls/hr 03/24/24 07:00 03/24/24 09:45 Vancomycin 1,250 Mg/Ns 250 Ml IVPB Infused Q24H SUNNY Infusion Insulin Aspart 4 - 8 units 03/21/24 08:00 03/24/24 12:06 Insulin Aspart (*Bkc) 100 Units/Ml SUB-Q Not Given [facility] Protocol Lactobacillus Acidophilus 1 tablet 03/16/24 09:00 03/24/24 08:05 Acidophilus/Bulgaricus Chewable Tablet PO 1 tablet BID SUNNY Administration Magnesium Hydroxide 30 ml 03/14/24 09:00 03/24/24 08:05 Magnesium Hydroxide Susp 30 Ml Udc PO 30 ml QAM SUNNY Administration Metoprolol Tartrate 6.25 mg 03/16/24 06:00 03/24/24 11:17 Metoprolol Tartrate 6.25 Mg Tablet PO Not Given Q6HR SUNNY Orphenadrine Citrate 100 mg 03/14/24 22:24 03/24/24 00:59 Orphenadrine Citrate 100 Mg Tablet.Er PO 100 mg Q12HR PRN Administration Muscle Spasm Polyethylene Glycol 17 gm 03/16/24 09:00 03/24/24 08:05 Polyethylene Glycol 3350 17 Gm Powd.Pack FEED TUBE 17 gm BID SUNNY Administration Rosuvastatin Calcium 10 mg 03/14/24 21:00 03/23/24 20:43 Rosuvastatin 10 Mg Tablet PO 10 mg BEDTIME SUNNY Administration Sodium Chloride 1 gm 03/24/24 09:00 03/24/24 08:05 Sodium Chloride 1 Gm Tablet PO 1 gm BID SUNNY Administration Radiology Results: ITS Impressions Chest X-Ray 03/13/24 15:57 Impression: 1: Cardiomegaly with mild interstitial edema. Abdomen/Pelvis CT 03/13/24 17:07 IMPRESSION: Large hiatal hernia. Findings within the liver and spleen suggesting prior granulomatous disease. Fecal stasis within the colon and distending the rectum suggesting fecal impaction. Findings at the level of the inferior endplate of L3 which demonstrate progression from previous examination, possibly representing discitis/osteomyelitis for which clinical and serologic correlation is needed. Head CT 03/13/24 19:07 Impression: No acute intracranial hemorrhage or suspicious mass effect. Labs Labs: Laboratory Results - last 24 hr 03/23/24 03/23/24 03/24/24 17:17 21:20 05:52 WBC 10.4 H RBC 3.46 L Hgb 8.9 L Hct 28.4 L MCV 82.1 MCH 25.7 L MCHC 31.3 L RDW 17.6 H Plt Count 433 H MPV 9.0 Sodium Potassium Chloride Carbon Dioxide Anion Gap BUN Creatinine Estim Creat Clear Calc Estimated GFR Glucose POC Capillary Glucose 118 H 156 H Calcium Total Bilirubin AST ALT Alkaline Phosphatase Total Protein Albumin Nasal MRSA (PCR) Vancomycin Trough 15.9 03/24/24 03/24/24 03/24/24 05:53 07:59 11:47 WBC RBC Hgb Hct MCV MCH MCHC RDW Plt Count MPV Sodium 123 L Potassium 4.4 Chloride 92 L Carbon Dioxide 25 Anion Gap 6 BUN 13 Creatinine 0.61 L Estim Creat Clear Calc 100 Estimated GFR > 60 Glucose 126 H POC Capillary Glucose 127 H 130 H Calcium 8.6 Total Bilirubin 0.5 AST 33 ALT 13 Alkaline Phosphatase 104 Total Protein 7.0 Albumin 3.1 L Nasal MRSA (PCR) Vancomycin Trough 03/24/24 11:48 WBC RBC Hgb Hct MCV MCH MCHC RDW Plt Count MPV Sodium Potassium Chloride Carbon Dioxide Anion Gap BUN Creatinine Estim Creat Clear Calc Estimated GFR Glucose POC Capillary Glucose Calcium Total Bilirubin AST ALT Alkaline Phosphatase Total Protein Albumin Nasal MRSA (PCR) Not detected Vancomycin Trough Hospitalist MIPS Advance Care Plan I have confirmed that the patient's Advanced Care Plan is present, code status is documented, or surrogate decision maker is listed in patient medical record.: Yes Medication Reconciliation I have utilized all available resources to obtain, update and review the patients current medications (includes all prescriptions, OTC, herbals, cannabis, and nutritional supplements).: Yes
[2024-03-24 17:04] LABS: Glucose Point of Care 117 mg/dl (65-105)
[2024-03-24 17:06] VITALS: PULSE 64
[2024-03-24] MEDS: METOPROLOL TARTRATE 6.25 MG TABLET PO (17:06)
[2024-03-24 20:10] VITALS: PULSE 66; RESP 16; O2SAT 91
[2024-03-24] MEDS: ROSUVASTATIN 10 MG TABLET PO (20:14)
[2024-03-24] MEDS: FENOFIBRATE NANOCRYSTALLIZED 145 MG TABLET PO (20:14)
[2024-03-24 20:18] VITALS: BP 102/49; PULSE 66; RESP 16; TEMP 36.4; O2SAT 91
[2024-03-24 21:34] LABS: Glucose Point of Care 128 mg/dl (65-105)
[2024-03-25] VITALS (7 sets, daily range): BP systolic 92–107; BP diastolic 40–47; PULSE 55–74; RESP 14–18; TEMP 35.6–36.5; O2SAT 96–100
[2024-03-25] MEDS: HYDROcodone/acetaminophen (*CRX) 5-325 MG TABLET 1 TAB PO ×4 (03:44→20:49)
[2024-03-25] MEDS: VANCOMYCIN 1,250 MG/NS 250 ML 1,250 MG/250 ML BAG 166.67 MG IVPB (06:15)
[2024-03-25 07:06] LABS: Hematocrit 29.5 % (42.0-52.0); Hemoglobin 9.2 g/dL (14.0-18.0); Mean Corpuscular HGB Conc 31.2 g/dl (32-36); Mean Corpuscular Hemoglobin 25.6 pg (26-34); Mean Corpuscular Volume 81.9 fl (80-100); Mean Platelet Volume 8.9 fl (7.4-10.4); Platelet Count Result 389 k/mm3 (150-375); Red Cell Distribution Width 17.5 % (11.5-14.5); White Blood Count 8.2 K/mm3 (4.5-10.0)
[2024-03-25 07:26] LABS: Alanine Aminotransferase 12 U/L (6-50); Albumin Level 2.8 g/dL (3.5-5.1); Alkaline Phosphatase 103 U/L (38-126); Anion Gap 5 mmol/L (4-12); Aspartate Amino Transferase 32 U/L (17-59); Bilirubin,Total 0.5 mg/dL (0.2-1.3); Blood Urea Nitrogen 12 mg/dL (9-20); Carbon Dioxide 25 mmol/L (22-30); Chloride 94 mmol/L (98-107); Estimated CRCL calculation 97 ml/min; Estimated Glomerular Filt Rate > 60; Glucose 105 mg/dL (65-110); Potassium 4.3 mmol/L (3.4-5.0); Sodium 124 mmol/L (137-145)
--- NOTE | 2024-03-25 08:14 | PM.IMPN ---
Progress Note: A&P Assessment and Plan (1) Osteomyelitis of lumbar spine: Code(s): M46.26 - Osteomyelitis of vertebra, lumbar region Status: Acute Assessment and Plan: Patient awaiting bed at tertiary facility Continue vancomycin DC Zosyn (2) Hypertension: Code(s): I10 - Essential (primary) hypertension Status: Acute Assessment and Plan: Continue home meds (3) Diastolic heart failure: Code(s): I50.30 - Unspecified diastolic (congestive) heart failure Status: Acute Assessment and Plan: Daily intake and output (4) CAD (coronary artery disease), autologous vein bypass graft: Code(s): I25.810 - Atherosclerosis of coronary artery bypass graft(s) without angina pectoris Status: Acute Assessment and Plan: Chest pain-free (5) Atrial fibrillation: Onset Date: 04/20/17 Code(s): I48.91 - Unspecified atrial fibrillation Status: Chronic Assessment and Plan: Rate controlled and anticoagulated (6) Type 2 diabetes mellitus with hyperglycemia, with long-term current use of insulin: Code(s): E11.65 - Type 2 diabetes mellitus with hyperglycemia; Z79.4 - skilled nursing (current) use of insulin Status: Acute Assessment and Plan: Continue insulin Holding sitagliptin (7) Physical deconditioning: Code(s): R53.81 - Other malaise Status: Acute Assessment and Plan: PT OT when clinically able to participate Plan MRSA bacteremia likely likely from Diskitis/osteomyelitis Blood culture positive MRSA and repeat blood culture no growth until today patient recently managed for MRSA endocarditis Cont Vanc DC Zosyn Continue with transfer to [facility] DVT prophylaxis on Dabigatran Awaiting transfer Subjective Date/time seen: 03/25/24 08:14 Interval history: No acute events. Nasal MRSA negative. Isolation has been removed. Review of Systems Review of Systems: Back pain, abdominal pain Exam Narrative: Laying in bed Const: General: comfortable, no acute distress, well developed, alert, awake, ill appearing chronically and obese Nutritional Appearance: obese Orientation/consciousness: patient oriented x3 Other: Generalized pallor HENMT: Head: normal to inspection, normocephalic and atraumatic Ears: hearing grossly normal bilaterally Face/Nose/Sinus: normal facial exam Face and sinus: normal facial exam Eyes: General: appearance normal, both eyes and all related structures Pupils: Equal, round and reactive pupils present EOM: EOMs intact bilaterally Neck: Neck: full ROM, no lymphadenopathy and no JVD Thyroid: thyroid normal Lymphatic: no lymphadenopathy noted Resp: Effort & Inspection: normal respiratory effort and able to speak in complete sentences Auscultation: clear to auscultation bilaterally Cardio: Jugular venous distension: no JVD Rate: regular rate Rhythm: regular rhythm Heart sounds: S1 normal heart sound present and S2 normal heart sound present GI: Inspection: Pannus present and obesity : General: Yes deferred Skin: Rashes: no rashes Wounds: no wounds Neuro: General: patient oriented x3, CN's II-XI intact bilaterally and Unable to assess gait Cranial nerves: Yes CN's II-XII intact bilaterally and Yes Equal, round and reactive pupils present Cognition (Neuro): normal cognition Speech: normal speech Gait exam (Neuro): Unable to assess gait Motor exam (neuro): 5/5 motor strength present throughout Extrem: General: normal to inspection, full ROM, no joint enlargement and no pedal edema Objective Data Vital Signs Vital Signs: Vital Signs - 24 hr 03/24/24 14:00 03/24/24 17:06 03/24/24 20:10 Temperature 97.5 F L Pulse Rate 60 64 66 Respiratory Rate 22 H 16 Blood Pressure 118/64 Pulse Oximetry 98 91 Oxygen Delivery Room Air Fraction of Inspired Oxygen 21 03/24/24 20:18 03/25/24 05:26 03/25/24 05:27 Temperature 97.6 F 97.7 F Pulse Rate 66 74 64 Respiratory Rate 16 14 Blood Pressure 102/49 L 107/47 L Pulse Oximetry 91 96 Oxygen Delivery Fraction of Inspired Oxygen Intake/Output Intake/Output: Intake & Output 03/22/24 03/23/24 03/24/24 03/25/24 23:59 23:59 23:59 23:59 Intake Total 1370 2580 2330 650 Output Total 2650 7610 069 6206 Balance -1280 1155 1380 -1450 Meds/Results Medications: Active Medications Generic Name Dose Route Start Last Admin Trade Name Freq PRN Reason Stop Dose Admin Acetaminophen 1,000 mg 03/16/24 02:11 03/24/24 23:30 Acetaminophen 500 Mg Tablet PO 1,000 mg Q8H PRN Administration fever or pain Hydrocodone Bitart/Acetaminophen 1 tab 03/13/24 21:00 03/25/24 03:44 Hydrocodone/Acetaminophen (*Crx) 5-325 Mg Tablet PO 03/30/24 23:59 1 tab Q6H SUNNY Administration Aspirin 81 mg 03/16/24 08:00 03/24/24 08:04 Aspirin 81 Mg Chewable Tablet PO 81 mg DAILY@0800 SUNNY Administration Dabigatran 150 mg 03/16/24 09:00 03/24/24 20:14 Dabigatran Etexilate 150 Mg Capsule PO 150 mg Q12HR SUNNY Administration Dextrose 12.5 gm 03/13/24 21:39 Dextrose 50% 25 Gm/50 Ml Syringe IV PUSH PRN PRN Hypoglycemia Protocol Fenofibrate 145 mg 03/16/24 21:00 03/24/24 20:14 Fenofibrate Nanocrystallized 145 Mg Tablet PO 145 mg QHS SUNNY Administration Glucagon 1 mg 03/13/24 21:39 Glucagon For Inj 1 Mg Vial IM PRN PRN Hypoglycemia Protocol Glucose 15 gm 03/13/24 21:39 Glucose Oral Gel 15 Gm Of Glucse In 37.5 Gm Tube PO PRN PRN Hypoglycemia Protocol Dextrose 1,000 mls @ 100 mls/hr 03/13/24 21:39 Dextrose 5% 1,000 Ml IVPB PRN PRN Hypoglycemia Protocol Vancomycin HCl 1,250 mg in 250 mls @ 166.667 mls/hr 03/24/24 07:00 03/25/24 06:15 Vancomycin 1,250 Mg/Ns 250 Ml IVPB 166.67 mls/hr Q24H SUNNY Administration Insulin Aspart 4 - 8 units 03/21/24 08:00 03/24/24 21:17 Insulin Aspart (*Bkc) 100 Units/Ml SUB-Q Not Given [facility] Protocol Lactobacillus Acidophilus 1 tablet 03/16/24 09:00 03/24/24 17:05 Acidophilus/Bulgaricus Chewable Tablet PO 1 tablet BID SUNNY Administration Magnesium Hydroxide 30 ml 03/14/24 09:00 03/24/24 08:05 Magnesium Hydroxide Susp 30 Ml Udc PO 30 ml QAM SUNNY Administration Metoprolol Tartrate 6.25 mg 03/16/24 06:00 03/25/24 05:26 Metoprolol Tartrate 6.25 Mg Tablet PO Not Given Q6HR SUNNY Orphenadrine Citrate 100 mg 03/14/24 22:24 03/24/24 00:59 Orphenadrine Citrate 100 Mg Tablet.Er PO 100 mg Q12HR PRN Administration Muscle Spasm Polyethylene Glycol 17 gm 03/16/24 09:00 03/24/24 17:05 Polyethylene Glycol 3350 17 Gm Powd.Pack FEED TUBE 17 gm BID SUNNY Administration Rosuvastatin Calcium 10 mg 03/14/24 21:00 03/24/24 20:14 Rosuvastatin 10 Mg Tablet PO 10 mg BEDTIME SUNNY Administration Sodium Chloride 1 gm 03/24/24 09:00 03/24/24 17:05 Sodium Chloride 1 Gm Tablet PO 1 gm BID SUNNY Administration Radiology Results: ITS Impressions Chest X-Ray 03/13/24 15:57 Impression: 1: Cardiomegaly with mild interstitial edema. Abdomen/Pelvis CT 03/13/24 17:07 IMPRESSION: Large hiatal hernia. Findings within the liver and spleen suggesting prior granulomatous disease. Fecal stasis within the colon and distending the rectum suggesting fecal impaction. Findings at the level of the inferior endplate of L3 which demonstrate progression from previous examination, possibly representing discitis/osteomyelitis for which clinical and serologic correlation is needed. Head CT 03/13/24 19:07 Impression: No acute intracranial hemorrhage or suspicious mass effect. Labs Labs: Laboratory Results - last 24 hr 03/24/24 03/24/24 03/24/24 11:47 11:48 17:01 WBC RBC Hgb Hct MCV MCH MCHC RDW Plt Count MPV Sodium Potassium Chloride Carbon Dioxide Anion Gap BUN Creatinine Estim Creat Clear Calc Estimated GFR Glucose POC Capillary Glucose 130 H 117 H Calcium Total Bilirubin AST ALT Alkaline Phosphatase Total Protein Albumin Nasal MRSA (PCR) Not detected 03/24/24 03/25/24 20:31 06:46 WBC 8.2 RBC 3.60 L Hgb 9.2 L Hct 29.5 L MCV 81.9 MCH 25.6 L MCHC 31.2 L RDW 17.5 H Plt Count 389 H MPV 8.9 Sodium 124 L Potassium 4.3 Chloride 94 L Carbon Dioxide 25 Anion Gap 5 BUN 12 Creatinine 0.62 L Estim Creat Clear Calc 97 Estimated GFR > 60 Glucose 105 POC Capillary Glucose 128 H Calcium 8.0 L Total Bilirubin 0.5 AST 32 ALT 12 Alkaline Phosphatase 103 Total Protein 6.0 L Albumin 2.8 L Nasal MRSA (PCR) Hospitalist [facility] Advance Care Plan I have confirmed that the patient's Advanced Care Plan is present, code status is documented, or surrogate decision maker is listed in patient medical record.: Yes Medication Reconciliation I have utilized all available resources to obtain, update and review the patients current medications (includes all prescriptions, OTC, herbals, cannabis, and nutritional supplements).: Yes
[2024-03-25 08:28] LABS: Glucose Point of Care 104 mg/dl (65-105)
[2024-03-25] MEDS: ASPIRIN 81 MG CHEWABLE TABLET PO (08:58)
[2024-03-25] MEDS: DABIGATRAN ETEXILATE 150 MG CAPSULE PO ×2 (08:58→20:49)
[2024-03-25] MEDS: polyethylene glycoL 3350 17 GM POWD.PACK FEED TUBE ×2 (08:59→17:36)
[2024-03-25] MEDS: ACIDOPHILUS/BULGARICUS CHEWABLE TABLET 1 TABLET PO ×2 (08:59→17:36)
[2024-03-25] MEDS: SODIUM CHLORIDE 1 GM TABLET PO ×2 (08:59→17:36)
[2024-03-25] MEDS: MAGNESIUM HYDROXIDE SUSP 30 ML UDC PO (09:08)
--- NOTE | 2024-03-25 09:32 | ECG_ITS ---
Test Date: 2024-03-25 10:39:59 Measurements Intervals [place] Rate: 59 P: 0 MS: 0 QRS: -21 QRSD: 102 T: 32 QT: 470 QTc: 466 Interpretive Statements ATRIAL FIBRILLATION WITH SLOW VENTRICULAR RESPONSE BORDERLINE LEFT AXIS DEVIATION [QRS AXIS < -20] MINIMAL ST DEPRESSION [0.025+ mV ST DEPRESSION] PROLONGED QT INTERVAL Compared to ECG 03/20/2024 12:58:22 ST (T wave) deviation now present Prolonged QT interval now present Ventricular-paced complex(es) or rhythm no longer present Electronically Signed On 03-26-2024 18:14:28 ANALYSIS SPECIALIST by Janet Helms M.D.
[2024-03-25 10:06] LABS: Troponin I < 0.012 ng/mL (0.000-0.034)
[2024-03-25 13:01] LABS: Glucose Point of Care 153 mg/dl (65-105)
[2024-03-25] MEDS: METOPROLOL TARTRATE 6.25 MG TABLET PO ×2 (13:02→17:36)
[2024-03-25 17:02] LABS: Glucose Point of Care 149 mg/dl (65-105)
[2024-03-25] MEDS: ORPHENADRINE CITRATE 100 MG TABLET.ER PO (17:38)
[2024-03-25 20:42] LABS: Glucose Point of Care 185 mg/dl (65-105)
[2024-03-25] MEDS: ROSUVASTATIN 10 MG TABLET PO (20:49)
[2024-03-25] MEDS: FENOFIBRATE NANOCRYSTALLIZED 145 MG TABLET PO (20:49)
[2024-03-26] MEDS: HYDROcodone/acetaminophen (*CRX) 5-325 MG TABLET 1 TAB PO ×4 (03:28→21:00)
[2024-03-26 06:00] VITALS: BP 101/63; PULSE 62; RESP 18; TEMP 36.2; O2SAT 100
[2024-03-26 06:10] LABS: Hematocrit 26.9 % (42.0-52.0); Hemoglobin 8.4 g/dL (14.0-18.0); Mean Corpuscular HGB Conc 31.2 g/dl (32-36); Mean Corpuscular Hemoglobin 25.9 pg (26-34); Platelet Count Result 365 k/mm3 (150-375); Red Blood Count 3.24 M/mm3 (4.6-6.20); Red Cell Distribution Width 17.9 % (11.5-14.5); White Blood Count 9.5 K/mm3 (4.5-10.0)
[2024-03-26] MEDS: ORPHENADRINE CITRATE 100 MG TABLET.ER PO (06:11)
[2024-03-26 06:21] LABS: Alanine Aminotransferase 12 U/L (6-50); Albumin Level 2.8 g/dL (3.5-5.1); Alkaline Phosphatase 96 U/L (38-126); Anion Gap 5 mmol/L (4-12); Aspartate Amino Transferase 27 U/L (17-59); Bilirubin,Total 0.4 mg/dL (0.2-1.3); Blood Urea Nitrogen 14 mg/dL (9-20); Carbon Dioxide 27 mmol/L (22-30); Chloride 94 mmol/L (98-107); Estimated CRCL calculation 81 ml/min; Estimated Glomerular Filt Rate > 60; Glucose 145 mg/dL (65-110); Potassium 4.8 mmol/L (3.4-5.0); Sodium 126 mmol/L (137-145)
[2024-03-26 06:32] LABS: Vancomycin Trough 15.4 ug/mL (10.0-20.0)
[2024-03-26] MEDS: VANCOMYCIN 1,250 MG/NS 250 ML 1,250 MG/250 ML BAG 166.67 MG IVPB (06:55)
[2024-03-26 08:04] LABS: Glucose Point of Care 140 mg/dl (65-105)
[2024-03-26] MEDS: ACIDOPHILUS/BULGARICUS CHEWABLE TABLET 1 TABLET PO ×2 (10:08→16:28)
[2024-03-26] MEDS: ASPIRIN 81 MG CHEWABLE TABLET PO (10:08)
[2024-03-26] MEDS: DABIGATRAN ETEXILATE 150 MG CAPSULE PO ×2 (10:08→21:00)
[2024-03-26] MEDS: SODIUM CHLORIDE 1 GM TABLET PO ×2 (10:08→16:29)
[2024-03-26] MEDS: polyethylene glycoL 3350 17 GM POWD.PACK FEED TUBE ×2 (10:09→16:29)
--- NOTE | 2024-03-26 11:18 | PCNFU ---
Nutrition Follow-Up Complete: Severe protein calorie malnutrition related to recent acute infection, hospitalization; increased needs from multiple pressure injuries as evidenced by weight loss -13%/3 months; intakes <75% needs >1 month; severe muscle wasting and fat loss Goal:Adequate PO intake at least 75% meals and supplements for wound healing support Patient is meeting goal. No new goal. Pt current nutrition is [facility] Last recorded weight is 91 kg, up from 88.2 kg on admit. Bowel Motility: +BM reported 03/25 Labs Reviewed: Glu 145, NA 126, Hct 26.9, Hgb 8.4 Meds Noted: NovoLog,Miralax. Skin: multiple wounds-see would nursing assessment. Additional Notes: Patient remains on a [facility] diet with Flex BID and Glucerna Shake TID. Oral Intake has been > 75% of meals. Agree with diet orders. Monitoring intakes, weights, labs, supplement tolerance, skin, plan of care Follow up in 5 days
[2024-03-26 12:07] LABS: Glucose Point of Care 142 mg/dl (65-105)
[2024-03-26 14:00] VITALS: BP 112/97; PULSE 54; RESP 14; TEMP 36.7; O2SAT 99
--- NOTE | 2024-03-26 16:02 | P.PNIM_ITS ---
Progress Note: A&P Assessment and Plan (1) Osteomyelitis of lumbar spine: Code(s): M46.26 - Osteomyelitis of vertebra, lumbar region Status: Acute Assessment and Plan: Patient awaiting bed at tertiary facility Continue vancomycin DC Zosyn (2) Hypertension: Code(s): I10 - Essential (primary) hypertension Status: Acute Assessment and Plan: Continue home meds (3) Diastolic heart failure: Code(s): I50.30 - Unspecified diastolic (congestive) heart failure Status: Acute Assessment and Plan: Daily intake and output (4) CAD (coronary artery disease), autologous vein bypass graft: Code(s): I25.810 - Atherosclerosis of coronary artery bypass graft(s) without angina pectoris Status: Acute Assessment and Plan: Chest pain-free (5) Atrial fibrillation: Onset Date: 04/20/17 Code(s): I48.91 - Unspecified atrial fibrillation Status: Chronic Assessment and Plan: Rate controlled and anticoagulated (6) Type 2 diabetes mellitus with hyperglycemia, with long-term current use of insulin: Code(s): E11.65 - Type 2 diabetes mellitus with hyperglycemia; Z79.4 - prison (current) use of insulin Status: Acute Assessment and Plan: Continue insulin Holding sitagliptin (7) Physical deconditioning: Code(s): R53.81 - Other malaise Status: Acute Assessment and Plan: PT OT when clinically able to participate Plan MRSA bacteremia likely likely from Diskitis/osteomyelitis Blood culture positive MRSA and repeat blood culture no growth until today patient recently managed for MRSA endocarditis Cont Vanc DC Zosyn Continue with transfer to [facility] DVT prophylaxis on Dabigatran Awaiting transfer Subjective Date/time seen: 03/26/24 16:02 Interval history: Pending transfer to [facility]. No acute events overnight. Review of Systems Review of Systems: Back pain, abdominal pain Exam Narrative: Laying in bed Const: General: comfortable, no acute distress, well developed, alert, awake, ill appearing chronically and obese Nutritional Appearance: obese Orientation/consciousness: patient oriented x3 Other: Generalized pallor HENMT: Head: normal to inspection, normocephalic and atraumatic Ears: hearing grossly normal bilaterally Face/Nose/Sinus: normal facial exam Face and sinus: normal facial exam Eyes: General: appearance normal, both eyes and all related structures Pupils: Equal, round and reactive pupils present EOM: EOMs intact bilaterally Neck: Neck: full ROM, no lymphadenopathy and no JVD Thyroid: thyroid normal Lymphatic: no lymphadenopathy noted Resp: Effort & Inspection: normal respiratory effort and able to speak in complete sentences Auscultation: clear to auscultation bilaterally Cardio: Jugular venous distension: no JVD Rate: regular rate Rhythm: regular rhythm Heart sounds: S1 normal heart sound present and S2 normal heart sound present GI: Inspection: Pannus present and obesity : General: Yes deferred Skin: Rashes: no rashes Wounds: no wounds Neuro: General: patient oriented x3, CN's II-XI intact bilaterally and Unable to assess gait Cranial nerves: Yes CN's II-XII intact bilaterally and Yes Equal, round and reactive pupils present Cognition (Neuro): normal cognition Speech: normal speech Gait exam (Neuro): Unable to assess gait Motor exam (neuro): 5/5 motor strength present throughout Extrem: General: normal to inspection, full ROM, no joint enlargement and no pedal edema Objective Data Vital Signs Vital Signs: Vital Signs - 24 hr 03/25/24 17:36 03/25/24 20:53 03/25/24 20:55 Temperature 97 F L Pulse Rate 66 55 L 55 L Respiratory Rate 18 18 Blood Pressure 99/40 L Pulse Oximetry 97 97 Oxygen Delivery Room Air Fraction of Inspired Oxygen 03/26/24 06:00 03/26/24 10:00 03/26/24 14:00 Temperature 97.1 F L 98.1 F Pulse Rate 62 54 L Respiratory Rate 18 14 Blood Pressure 101/63 112/97 H Pulse Oximetry 100 99 Oxygen Delivery Room Air Fraction of Inspired Oxygen Intake/Output Intake/Output: Intake & Output 03/23/24 03/24/24 03/25/24 03/26/24 23:59 23:59 23:59 23:59 Intake Total 2580 2330 2240 1120 Output Total 4088 250 3397 550 Balance 1155 1380 -860 570 Meds/Results Medications: Active Medications Generic Name Dose Route Start Last Admin Trade Name Freq PRN Reason Stop Dose Admin Acetaminophen 1,000 mg 03/16/24 02:11 03/24/24 23:30 Acetaminophen 500 Mg Tablet PO 1,000 mg Q8H PRN Administration fever or pain Hydrocodone Bitart/Acetaminophen 1 tab 03/13/24 21:00 03/26/24 14:49 Hydrocodone/Acetaminophen (*Crx) 5-325 Mg Tablet PO 03/30/24 23:59 1 tab Q6H SUNNY Administration Aspirin 81 mg 03/16/24 08:00 03/26/24 10:08 Aspirin 81 Mg Chewable Tablet PO 81 mg DAILY@0800 SUNNY Administration Dabigatran 150 mg 03/16/24 09:00 03/26/24 10:08 Dabigatran Etexilate 150 Mg Capsule PO 150 mg Q12HR SUNNY Administration Dextrose 12.5 gm 03/13/24 21:39 Dextrose 50% 25 Gm/50 Ml Syringe IV PUSH PRN PRN Hypoglycemia Protocol Fenofibrate 145 mg 03/16/24 21:00 03/25/24 20:49 Fenofibrate Nanocrystallized 145 Mg Tablet PO 145 mg QHS SUNNY Administration Glucagon 1 mg 03/13/24 21:39 Glucagon For Inj 1 Mg Vial IM PRN PRN Hypoglycemia Protocol Glucose 15 gm 03/13/24 21:39 Glucose Oral Gel 15 Gm Of Glucse In 37.5 Gm Tube PO PRN PRN Hypoglycemia Protocol Dextrose 1,000 mls @ 100 mls/hr 03/13/24 21:39 Dextrose 5% 1,000 Ml IVPB PRN PRN Hypoglycemia Protocol Vancomycin HCl 1,250 mg in 250 mls @ 166.667 mls/hr 03/24/24 07:00 03/26/24 06:55 Vancomycin 1,250 Mg/Ns 250 Ml IVPB 04/26/24 23:59 166.67 mls/hr Q24H SUNNY Administration Insulin Aspart 4 - 8 units 03/21/24 08:00 03/26/24 12:43 Insulin Aspart (*Bkc) 100 Units/Ml SUB-Q Not Given [facility] Protocol Lactobacillus Acidophilus 1 tablet 03/16/24 09:00 03/26/24 10:08 Acidophilus/Bulgaricus Chewable Tablet PO 1 tablet BID SUNNY Administration Magnesium Hydroxide 30 ml 03/14/24 09:00 03/26/24 12:43 Magnesium Hydroxide Susp 30 Ml Udc PO Not Given QAM SUNNY Metoprolol Tartrate 6.25 mg 03/16/24 06:00 03/26/24 12:47 Metoprolol Tartrate 6.25 Mg Tablet PO Not Given Q6HR [facility] Orphenadrine Citrate 100 mg 03/14/24 22:24 03/26/24 06:11 Orphenadrine Citrate 100 Mg Tablet.Er PO 100 mg Q12HR PRN Administration Muscle Spasm Polyethylene Glycol 17 gm 03/16/24 09:00 03/26/24 10:09 Polyethylene Glycol 3350 17 Gm Powd.Pack FEED TUBE 17 gm BID SUNNY Administration Rosuvastatin Calcium 10 mg 03/14/24 21:00 03/25/24 20:49 Rosuvastatin 10 Mg Tablet PO 10 mg BEDTIME SUNNY Administration Sodium Chloride 1 gm 03/24/24 09:00 03/26/24 10:08 Sodium Chloride 1 Gm Tablet PO 1 gm BID SUNNY Administration Radiology Results: ITS Impressions Chest X-Ray 03/13/24 15:57 Impression: 1: Cardiomegaly with mild interstitial edema. Abdomen/Pelvis CT 03/13/24 17:07 IMPRESSION: Large hiatal hernia. Findings within the liver and spleen suggesting prior granulomatous disease. Fecal stasis within the colon and distending the rectum suggesting fecal impaction. Findings at the level of the inferior endplate of L3 which demonstrate progression from previous examination, possibly representing discitis/osteomyelitis for which clinical and serologic correlation is needed. Head CT 03/13/24 19:07 Impression: No acute intracranial hemorrhage or suspicious mass effect. Labs Labs: Laboratory Results - last 24 hr 03/25/24 03/25/24 03/26/24 17:00 20:39 05:49 WBC 9.5 RBC 3.24 L Hgb 8.4 L Hct 26.9 L MCV 83.0 MCH 25.9 L MCHC 31.2 L RDW 17.9 H Plt Count 365 MPV 9.0 Sodium 126 L Potassium 4.8 Chloride 94 L Carbon Dioxide 27 Anion Gap 5 BUN 14 Creatinine 0.76 Estim Creat Clear Calc 81 Estimated GFR > 60 Glucose 145 H POC Capillary Glucose 149 H 185 H Calcium 8.0 L Total Bilirubin 0.4 AST 27 ALT 12 Alkaline Phosphatase 96 Total Protein 6.0 L Albumin 2.8 L Vancomycin Trough 15.4 03/26/24 03/26/24 07:56 12:05 WBC RBC Hgb Hct MCV MCH MCHC RDW Plt Count MPV Sodium Potassium Chloride Carbon Dioxide Anion Gap BUN Creatinine Estim Creat Clear Calc Estimated GFR Glucose POC Capillary Glucose 140 H 142 H Calcium Total Bilirubin AST ALT Alkaline Phosphatase Total Protein Albumin Vancomycin Trough Hospitalist [facility] Advance Care Plan I have confirmed that the patient's Advanced Care Plan is present, code status is documented, or surrogate decision maker is listed in patient medical record.: Yes Medication Reconciliation I have utilized all available resources to obtain, update and review the patients current medications (includes all prescriptions, OTC, herbals, cannabis, and nutritional supplements).: Yes
[2024-03-26] MEDS: LIDOCAINE 5% PATCH 1 PATCH TRANSDERM (16:28)
[2024-03-26 17:11] LABS: Glucose Point of Care 120 mg/dl (65-105)
[2024-03-26] MEDS: ACETAMINOPHEN 500 MG TABLET 1000 MG PO (18:09)
[2024-03-26] MEDS: METOPROLOL TARTRATE 6.25 MG TABLET PO (18:09)
[2024-03-26 18:12] VITALS: BP 127/62
[2024-03-26 20:26] LABS: Glucose Point of Care 137 mg/dl (65-105)
[2024-03-26] MEDS: FENOFIBRATE NANOCRYSTALLIZED 145 MG TABLET PO (21:00)
[2024-03-26] MEDS: ROSUVASTATIN 10 MG TABLET PO (21:00)
[2024-03-26 22:00] VITALS: BP 118/80; PULSE 75; RESP 18; TEMP 36.8; O2SAT 100
[2024-03-27] VITALS (10 sets, daily range): BP systolic 103–125; BP diastolic 58–71; PULSE 59–60; RESP 16–18; TEMP 36.4–36.6; O2SAT 98–100
[2024-03-27] MEDS: METOPROLOL TARTRATE 6.25 MG TABLET PO ×5 (00:30→23:52)
[2024-03-27] MEDS: HYDROcodone/acetaminophen (*CRX) 5-325 MG TABLET 1 TAB PO ×4 (02:22→20:38)
[2024-03-27] MEDS: ACETAMINOPHEN 500 MG TABLET 1000 MG PO ×2 (04:05→23:51)
[2024-03-27 05:46] LABS: Hematocrit 27.6 % (42.0-52.0); Hemoglobin 8.7 g/dL (14.0-18.0); Mean Corpuscular HGB Conc 31.5 g/dl (32-36); Mean Corpuscular Hemoglobin 26.3 pg (26-34); Mean Corpuscular Volume 83.4 fl (80-100); Mean Platelet Volume 9.1 fl (7.4-10.4); Platelet Count Result 334 k/mm3 (150-375); Red Blood Count 3.31 M/mm3 (4.6-6.20); Red Cell Distribution Width 17.9 % (11.5-14.5); White Blood Count 8.8 K/mm3 (4.5-10.0)
[2024-03-27 06:01] LABS: Alanine Aminotransferase 11 U/L (6-50); Albumin Level 2.7 g/dL (3.5-5.1); Alkaline Phosphatase 98 U/L (38-126); Anion Gap 6 mmol/L (4-12); Aspartate Amino Transferase 25 U/L (17-59); Bilirubin,Total 0.4 mg/dL (0.2-1.3); Blood Urea Nitrogen 18 mg/dL (9-20); Calcium 8.1 mg/dL (8.4-10.2); Carbon Dioxide 26 mmol/L (22-30); Chloride 93 mmol/L (98-107); Estimated CRCL calculation 91 ml/min; Estimated Glomerular Filt Rate > 60; Glucose 136 mg/dL (65-110); Potassium 4.5 mmol/L (3.4-5.0); Sodium 125 mmol/L (137-145)
[2024-03-27] MEDS: VANCOMYCIN 1,250 MG/NS 250 ML 1,250 MG/250 ML BAG 166.67 MG IVPB (06:10)
[2024-03-27 08:34] LABS: Glucose Point of Care 124 mg/dl (65-105)
[2024-03-27] MEDS: ASPIRIN 81 MG CHEWABLE TABLET PO (10:00)
[2024-03-27] MEDS: SODIUM CHLORIDE 1 GM TABLET PO ×2 (10:00→17:36)
[2024-03-27] MEDS: polyethylene glycoL 3350 17 GM POWD.PACK FEED TUBE ×2 (10:00→17:36)
[2024-03-27] MEDS: DABIGATRAN ETEXILATE 150 MG CAPSULE PO ×2 (10:00→20:38)
[2024-03-27] MEDS: ACIDOPHILUS/BULGARICUS CHEWABLE TABLET 1 TABLET PO ×2 (10:00→17:36)
[2024-03-27] MEDS: LIDOCAINE 5% PATCH 1 PATCH TRANSDERM (10:01)
[2024-03-27 10:15] LABS: Iron 36 ug/dL (49-181)
[2024-03-27 10:27] LABS: Percent Iron Saturation 14 % (20-50)
--- NOTE | 2024-03-27 11:38 | PM.IMPN ---
Progress Note: A&P Assessment and Plan (1) Osteomyelitis of lumbar spine: Code(s): M46.26 - Osteomyelitis of vertebra, lumbar region Status: Acute Assessment and Plan: Patient awaiting bed at tertiary facility Continue vancomycin DC Zosyn (2) Hypertension: Code(s): I10 - Essential (primary) hypertension Status: Acute Assessment and Plan: Continue home meds (3) Diastolic heart failure: Code(s): I50.30 - Unspecified diastolic (congestive) heart failure Status: Acute Assessment and Plan: Daily intake and output (4) CAD (coronary artery disease), autologous vein bypass graft: Code(s): I25.810 - Atherosclerosis of coronary artery bypass graft(s) without angina pectoris Status: Acute Assessment and Plan: Chest pain-free (5) Atrial fibrillation: Onset Date: 04/20/17 Code(s): I48.91 - Unspecified atrial fibrillation Status: Chronic Assessment and Plan: Rate controlled and anticoagulated (6) Type 2 diabetes mellitus with hyperglycemia, with long-term current use of insulin: Code(s): E11.65 - Type 2 diabetes mellitus with hyperglycemia; Z79.4 - halfway (current) use of insulin Status: Acute Assessment and Plan: Continue insulin Holding sitagliptin (7) Physical deconditioning: Code(s): R53.81 - Other malaise Status: Acute Assessment and Plan: PT OT when clinically able to participate Plan MRSA bacteremia likely likely from Diskitis/osteomyelitis Blood culture positive MRSA and repeat blood culture no growth until today patient recently managed for MRSA endocarditis Cont Vanc Continue with transfer to [facility] DVT prophylaxis on Dabigatran Awaiting transfer Subjective Date/time seen: 03/27/24 11:38 Interval history: Comfortable at bedside Pending transfer to [facility]. No acute events overnight. Review of Systems Review of Systems: Back pain, abdominal pain Exam Narrative: Laying in bed Const: General: comfortable, no acute distress, well developed, alert, awake, ill appearing chronically and obese Nutritional Appearance: obese Orientation/consciousness: patient oriented x3 Other: Generalized pallor HENMT: Head: normal to inspection, normocephalic and atraumatic Ears: hearing grossly normal bilaterally Face/Nose/Sinus: normal facial exam Face and sinus: normal facial exam Eyes: General: appearance normal, both eyes and all related structures Pupils: Equal, round and reactive pupils present EOM: EOMs intact bilaterally Neck: Neck: full ROM, no lymphadenopathy and no JVD Thyroid: thyroid normal Lymphatic: no lymphadenopathy noted Resp: Effort & Inspection: normal respiratory effort and able to speak in complete sentences Auscultation: clear to auscultation bilaterally Cardio: Jugular venous distension: no JVD Rate: regular rate Rhythm: regular rhythm Heart sounds: S1 normal heart sound present and S2 normal heart sound present GI: Inspection: Pannus present and obesity : General: Yes deferred Skin: Rashes: no rashes Wounds: no wounds Neuro: General: patient oriented x3, CN's II-XI intact bilaterally and Unable to assess gait Cranial nerves: Yes CN's II-XII intact bilaterally and Yes Equal, round and reactive pupils present Cognition (Neuro): normal cognition Speech: normal speech Gait exam (Neuro): Unable to assess gait Motor exam (neuro): 5/5 motor strength present throughout Extrem: General: normal to inspection, full ROM, no joint enlargement and no pedal edema Objective Data Vital Signs Vital Signs: Vital Signs - 24 hr 03/26/24 14:00 03/26/24 18:12 03/26/24 21:00 Temperature 98.1 F Pulse Rate 54 L Respiratory Rate 14 Blood Pressure 112/97 H 127/62 Pulse Oximetry 99 Oxygen Delivery Room Air 03/26/24 22:00 03/27/24 00:28 03/27/24 00:30 Temperature 98.2 F Pulse Rate 75 60 60 Respiratory Rate 18 Blood Pressure 118/80 103/59 L Pulse Oximetry 100 99 Oxygen Delivery 03/27/24 06:00 03/27/24 06:10 Temperature 97.9 F Pulse Rate 60 60 Respiratory Rate 18 Blood Pressure 108/63 Pulse Oximetry 100 Oxygen Delivery Intake/Output Intake/Output: Intake & Output 03/24/24 03/25/24 03/26/24 03/27/24 23:59 23:59 23:59 23:59 Intake Total 2330 2240 2850 120 Output Total 272 3100 1525 1980 Balance 1380 -860 1325 -1860 Meds/Results Medications: Active Medications Generic Name Dose Route Start Last Admin Trade Name Freq PRN Reason Stop Dose Admin Acetaminophen 1,000 mg 03/16/24 02:11 03/27/24 04:05 Acetaminophen 500 Mg Tablet PO 1,000 mg Q8H PRN Administration fever or pain Hydrocodone Bitart/Acetaminophen 1 tab 03/13/24 21:00 03/27/24 10:00 Hydrocodone/Acetaminophen (*Crx) 5-325 Mg Tablet PO 03/30/24 23:59 1 tab Q6H SUNNY Administration Aspirin 81 mg 03/16/24 08:00 03/27/24 10:00 Aspirin 81 Mg Chewable Tablet PO 81 mg DAILY@0800 SUNNY Administration Dabigatran 150 mg 03/16/24 09:00 03/27/24 10:00 Dabigatran Etexilate 150 Mg Capsule PO 150 mg Q12HR SUNNY Administration Dextrose 12.5 gm 03/13/24 21:39 Dextrose 50% 25 Gm/50 Ml Syringe IV PUSH PRN PRN Hypoglycemia Protocol Fenofibrate 145 mg 03/16/24 21:00 03/26/24 21:00 Fenofibrate Nanocrystallized 145 Mg Tablet PO 145 mg QHS SUNNY Administration Glucagon 1 mg 03/13/24 21:39 Glucagon For Inj 1 Mg Vial IM PRN PRN Hypoglycemia Protocol Glucose 15 gm 03/13/24 21:39 Glucose Oral Gel 15 Gm Of Glucse In 37.5 Gm Tube PO PRN PRN Hypoglycemia Protocol Dextrose 1,000 mls @ 100 mls/hr 03/13/24 21:39 Dextrose 5% 1,000 Ml IVPB PRN PRN Hypoglycemia Protocol Vancomycin HCl 1,250 mg in 250 mls @ 166.667 mls/hr 03/24/24 07:00 03/27/24 06:10 Vancomycin 1,250 Mg/Ns 250 Ml IVPB 04/26/24 23:59 166.67 mls/hr Q24H SUNNY Administration Insulin Aspart 4 - 8 units 03/21/24 08:00 03/27/24 09:58 Insulin Aspart (*Bkc) 100 Units/Ml SUB-Q Not Given [facility] Protocol Lactobacillus Acidophilus 1 tablet 03/16/24 09:00 03/27/24 10:00 Acidophilus/Bulgaricus Chewable Tablet PO 1 tablet BID SUNNY Administration Lidocaine 1 patch 03/26/24 16:10 03/27/24 10:01 Lidocaine 5% Patch TRANSDERM 1 patch DAILY SUNNY Administration Magnesium Hydroxide 30 ml 03/14/24 09:00 03/27/24 10:01 Magnesium Hydroxide Susp 30 Ml Udc PO Not Given [facility]AM [facility] Metoprolol Tartrate 6.25 mg 03/16/24 06:00 03/27/24 06:10 Metoprolol Tartrate 6.25 Mg Tablet PO 6.25 mg Q6HR SUNNY Administration Miscellaneous Information 0 each 03/26/24 00:01 Lidocaine Patch - Please Add Application Site To Order Comments XX 04/25/24 00:00 CLARIFY SUNNY Orphenadrine Citrate 100 mg 03/14/24 22:24 03/26/24 06:11 Orphenadrine Citrate 100 Mg Tablet.Er PO 100 mg Q12HR PRN Administration Muscle Spasm Polyethylene Glycol 17 gm 03/16/24 09:00 03/27/24 10:00 Polyethylene Glycol 3350 17 Gm Powd.Pack FEED TUBE 17 gm BID SUNNY Administration Rosuvastatin Calcium 10 mg 03/14/24 21:00 03/26/24 21:00 Rosuvastatin 10 Mg Tablet PO 10 mg BEDTIME SUNNY Administration Sodium Chloride 1 gm 03/24/24 09:00 03/27/24 10:00 Sodium Chloride 1 Gm Tablet PO 1 gm BID SUNNY Administration Radiology Results: ITS Impressions Chest X-Ray 03/13/24 15:57 Impression: 1: Cardiomegaly with mild interstitial edema. Abdomen/Pelvis CT 03/13/24 17:07 IMPRESSION: Large hiatal hernia. Findings within the liver and spleen suggesting prior granulomatous disease. Fecal stasis within the colon and distending the rectum suggesting fecal impaction. Findings at the level of the inferior endplate of L3 which demonstrate progression from previous examination, possibly representing discitis/osteomyelitis for which clinical and serologic correlation is needed. Head CT 03/13/24 19:07 Impression: No acute intracranial hemorrhage or suspicious mass effect. Labs Labs: Laboratory Results - last 24 hr 03/26/24 03/26/24 03/26/24 12:05 16:57 20:23 WBC RBC Hgb Hct MCV MCH MCHC RDW Plt Count MPV Sodium Potassium Chloride Carbon Dioxide Anion Gap BUN Creatinine Estim Creat Clear Calc Estimated GFR Glucose POC Capillary Glucose 142 H 120 H 137 H Calcium Iron TIBC Ferritin Total Bilirubin AST ALT Alkaline Phosphatase Total Protein Albumin 03/27/24 03/27/24 05:35 08:30 WBC 8.8 RBC 3.31 L Hgb 8.7 L Hct 27.6 L MCV 83.4 MCH 26.3 MCHC 31.5 L RDW 17.9 H Plt Count 334 MPV 9.1 Sodium 125 L Potassium 4.5 Chloride 93 L Carbon Dioxide 26 Anion Gap 6 BUN 18 Creatinine 0.68 L Estim Creat Clear Calc 91 Estimated GFR > 60 Glucose 136 H POC Capillary Glucose 124 H Calcium 8.1 L Iron 36 L TIBC 262 L Ferritin 96.70 Total Bilirubin 0.4 AST 25 ALT 11 Alkaline Phosphatase 98 Total Protein 6.0 L Albumin 2.7 L
[2024-03-27 12:11] LABS: Glucose Point of Care 128 mg/dl (65-105)
[2024-03-27 17:32] LABS: Glucose Point of Care 135 mg/dl (65-105)
[2024-03-27 20:20] LABS: Glucose Point of Care 123 mg/dl (65-105)
[2024-03-27] MEDS: ROSUVASTATIN 10 MG TABLET PO (20:38)
[2024-03-27] MEDS: FENOFIBRATE NANOCRYSTALLIZED 145 MG TABLET PO (20:38)
[2024-03-28] VITALS (8 sets, daily range): BP systolic 106–130; BP diastolic 68–75; PULSE 57–64; RESP 18–20; TEMP 36.2–36.8; O2SAT 100
[2024-03-28] MEDS: HYDROcodone/acetaminophen (*CRX) 5-325 MG TABLET 1 TAB PO ×4 (02:09→21:35)
[2024-03-28] MEDS: VANCOMYCIN 1,250 MG/NS 250 ML 1,250 MG/250 ML BAG 166.67 MG IVPB (06:10)
[2024-03-28] MEDS: METOPROLOL TARTRATE 6.25 MG TABLET PO ×4 (06:10→23:31)
[2024-03-28 06:12] LABS: Estimated CRCL calculation 104 ml/min; Estimated Glomerular Filt Rate > 60
[2024-03-28] MEDS: LIDOCAINE 5% PATCH 1 PATCH TRANSDERM (08:56)
[2024-03-28] MEDS: DABIGATRAN ETEXILATE 150 MG CAPSULE PO ×2 (08:57→21:34)
[2024-03-28] MEDS: ASPIRIN 81 MG CHEWABLE TABLET PO (08:57)
[2024-03-28] MEDS: SODIUM CHLORIDE 1 GM TABLET PO ×2 (08:57→16:13)
[2024-03-28] MEDS: ACIDOPHILUS/BULGARICUS CHEWABLE TABLET 1 TABLET PO ×2 (08:58→16:13)
[2024-03-28 09:12] LABS: Glucose Point of Care 116 mg/dl (65-105)
--- NOTE | 2024-03-28 10:17 | PM.IMPN ---
Progress Note: A&P Assessment and Plan (1) Osteomyelitis of lumbar spine: Code(s): M46.26 - Osteomyelitis of vertebra, lumbar region Status: Acute Assessment and Plan: Patient awaiting bed at tertiary facility Continue vancomycin DC Zosyn (2) Hypertension: Code(s): I10 - Essential (primary) hypertension Status: Acute Assessment and Plan: Continue home meds (3) Diastolic heart failure: Code(s): I50.30 - Unspecified diastolic (congestive) heart failure Status: Acute Assessment and Plan: Daily intake and output (4) CAD (coronary artery disease), autologous vein bypass graft: Code(s): I25.810 - Atherosclerosis of coronary artery bypass graft(s) without angina pectoris Status: Acute Assessment and Plan: Chest pain-free (5) Atrial fibrillation: Onset Date: 04/20/17 Code(s): I48.91 - Unspecified atrial fibrillation Status: Chronic Assessment and Plan: Rate controlled and anticoagulated (6) Type 2 diabetes mellitus with hyperglycemia, with long-term current use of insulin: Code(s): E11.65 - Type 2 diabetes mellitus with hyperglycemia; Z79.4 - custodial (current) use of insulin Status: Acute Assessment and Plan: Continue insulin Holding sitagliptin (7) Physical deconditioning: Code(s): R53.81 - Other malaise Status: Acute Assessment and Plan: PT OT when clinically able to participate Plan MRSA bacteremia likely likely from Diskitis/osteomyelitis Blood culture positive MRSA and repeat blood culture no growth until today patient recently managed for MRSA endocarditis Cont Vanc Continue with transfer to [facility] DVT prophylaxis on Dabigatran Awaiting transfer Subjective Date/time seen: 03/28/24 10:17 Interval history: Comfortable at bedside Pending transfer to [facility]. No acute events overnight. Review of Systems Review of Systems: Back pain, abdominal pain Exam Narrative: Laying in bed Const: General: comfortable, no acute distress, well developed, alert, awake, ill appearing chronically and obese Nutritional Appearance: obese Orientation/consciousness: patient oriented x3 Other: Generalized pallor HENMT: Head: normal to inspection, normocephalic and atraumatic Ears: hearing grossly normal bilaterally Face/Nose/Sinus: normal facial exam Face and sinus: normal facial exam Eyes: General: appearance normal, both eyes and all related structures Pupils: Equal, round and reactive pupils present EOM: EOMs intact bilaterally Neck: Neck: full ROM, no lymphadenopathy and no JVD Thyroid: thyroid normal Lymphatic: no lymphadenopathy noted Resp: Effort & Inspection: normal respiratory effort and able to speak in complete sentences Auscultation: clear to auscultation bilaterally Cardio: Jugular venous distension: no JVD Rate: regular rate Rhythm: regular rhythm Heart sounds: S1 normal heart sound present and S2 normal heart sound present GI: Inspection: Pannus present and obesity : General: Yes deferred Skin: Rashes: no rashes Wounds: no wounds Neuro: General: patient oriented x3, CN's II-XI intact bilaterally and Unable to assess gait Cranial nerves: Yes CN's II-XII intact bilaterally and Yes Equal, round and reactive pupils present Cognition (Neuro): normal cognition Speech: normal speech Gait exam (Neuro): Unable to assess gait Motor exam (neuro): 5/5 motor strength present throughout Extrem: General: normal to inspection, full ROM, no joint enlargement and no pedal edema Objective Data Vital Signs Vital Signs: Vital Signs - 24 hr 03/27/24 12:45 03/27/24 14:00 03/27/24 17:40 Temperature 97.6 F Pulse Rate 60 60 60 Respiratory Rate 16 Blood Pressure 125/58 L Pulse Oximetry 100 Oxygen Delivery 03/27/24 20:34 03/27/24 20:45 03/27/24 23:50 Temperature 97.9 F 97.6 F Pulse Rate 60 59 L Respiratory Rate 18 18 Blood Pressure 113/60 109/71 Pulse Oximetry 98 100 Oxygen Delivery Room Air 03/27/24 23:52 03/28/24 05:51 03/28/24 06:10 Temperature 98.1 F Pulse Rate 59 L 61 61 Respiratory Rate 18 Blood Pressure 106/75 Pulse Oximetry 100 Oxygen Delivery Intake/Output Intake/Output: Intake & Output 03/25/24 03/26/24 03/27/24 03/28/24 23:59 23:59 23:59 23:59 Intake Total 2240 2850 1550 550 Output Total 3100 1525 2730 Balance -860 1325 -1180 550 Meds/Results Medications: Active Medications Generic Name Dose Route Start Last Admin Trade Name Freq PRN Reason Stop Dose Admin Acetaminophen 1,000 mg 03/16/24 02:11 03/27/24 23:51 Acetaminophen 500 Mg Tablet PO 1,000 mg Q8H PRN Administration fever or pain Hydrocodone Bitart/Acetaminophen 1 tab 03/13/24 21:00 03/28/24 08:57 Hydrocodone/Acetaminophen (*Crx) 5-325 Mg Tablet PO 03/30/24 23:59 1 tab Q6H SUNNY Administration Aspirin 81 mg 03/16/24 08:00 03/28/24 08:57 Aspirin 81 Mg Chewable Tablet PO 81 mg DAILY@0800 SUNNY Administration Dabigatran 150 mg 03/16/24 09:00 03/28/24 08:57 Dabigatran Etexilate 150 Mg Capsule PO 150 mg Q12HR SUNNY Administration Dextrose 12.5 gm 03/13/24 21:39 Dextrose 50% 25 Gm/50 Ml Syringe IV PUSH PRN PRN Hypoglycemia Protocol Fenofibrate 145 mg 03/16/24 21:00 03/27/24 20:38 Fenofibrate Nanocrystallized 145 Mg Tablet PO 145 mg QHS SUNNY Administration Glucagon 1 mg 03/13/24 21:39 Glucagon For Inj 1 Mg Vial IM PRN PRN Hypoglycemia Protocol Glucose 15 gm 03/13/24 21:39 Glucose Oral Gel 15 Gm Of Glucse In 37.5 Gm Tube PO PRN PRN Hypoglycemia Protocol Dextrose 1,000 mls @ 100 mls/hr 03/13/24 21:39 Dextrose 5% 1,000 Ml IVPB PRN PRN Hypoglycemia Protocol Vancomycin HCl 1,250 mg in 250 mls @ 166.667 mls/hr 03/24/24 07:00 03/28/24 06:10 Vancomycin 1,250 Mg/Ns 250 Ml IVPB 04/26/24 23:59 166.67 mls/hr Q24H SUNNY Administration Insulin Aspart 4 - 8 units 03/21/24 08:00 03/28/24 09:27 Insulin Aspart (*Bkc) 100 Units/Ml SUB-Q Not Given [facility] Protocol Lactobacillus Acidophilus 1 tablet 03/16/24 09:00 03/28/24 08:58 Acidophilus/Bulgaricus Chewable Tablet PO 1 tablet BID SUNNY Administration Lidocaine 1 patch 03/26/24 16:10 03/28/24 08:56 Lidocaine 5% Patch TRANSDERM 1 patch DAILY SUNNY Administration Magnesium Hydroxide 30 ml 03/14/24 09:00 03/28/24 08:55 Magnesium Hydroxide Susp 30 Ml Udc PO Not Given QAM SUN[facility] Metoprolol Tartrate 6.25 mg 03/16/24 06:00 03/28/24 06:10 Metoprolol Tartrate 6.25 Mg Tablet PO 6.25 mg Q6HR SUNNY Administration Miscellaneous Information 0 each 03/26/24 00:01 Lidocaine Patch - Please Add Application Site To Order Comments XX 04/25/24 00:00 CLARIFY SUNNY Orphenadrine Citrate 100 mg 03/14/24 22:24 03/26/24 06:11 Orphenadrine Citrate 100 Mg Tablet.Er PO 100 mg Q12HR PRN Administration Muscle Spasm Polyethylene Glycol 17 gm 03/16/24 09:00 03/28/24 08:55 Polyethylene Glycol 3350 17 Gm Powd.Pack FEED TUBE Not Given BID SUNNY Rosuvastatin Calcium 10 mg 03/14/24 21:00 03/27/24 20:38 Rosuvastatin 10 Mg Tablet PO 10 mg BEDTIME SUNNY Administration Sodium Chloride 1 gm 03/24/24 09:00 03/28/24 08:57 Sodium Chloride 1 Gm Tablet PO 1 gm BID SUNNY Administration Radiology Results: ITS Impressions Chest X-Ray 03/13/24 15:57 Impression: 1: Cardiomegaly with mild interstitial edema. Abdomen/Pelvis CT 03/13/24 17:07 IMPRESSION: Large hiatal hernia. Findings within the liver and spleen suggesting prior granulomatous disease. Fecal stasis within the colon and distending the rectum suggesting fecal impaction. Findings at the level of the inferior endplate of L3 which demonstrate progression from previous examination, possibly representing discitis/osteomyelitis for which clinical and serologic correlation is needed. Head CT 03/13/24 19:07 Impression: No acute intracranial hemorrhage or suspicious mass effect. Labs Labs: Laboratory Results - last 24 hr 03/27/24 03/27/24 03/27/24 05:35 12:07 17:27 Creatinine Estim Creat Clear Calc Estimated GFR POC Capillary Glucose 128 H 135 H TIBC 262 L % Saturation 14 L Ferritin 96.70 03/27/24 03/28/24 03/28/24 20:04 05:30 09:10 Creatinine 0.59 L Estim Creat Clear Calc 104 Estimated GFR > 60 POC Capillary Glucose 123 H 116 H TIBC % Saturation Ferritin
[2024-03-28 12:25] LABS: Glucose Point of Care 103 mg/dl (65-105)
[2024-03-28] MEDS: polyethylene glycoL 3350 17 GM POWD.PACK FEED TUBE (16:13)
[2024-03-28 17:02] LABS: Glucose Point of Care 152 mg/dl (65-105)
[2024-03-28] MEDS: FENOFIBRATE NANOCRYSTALLIZED 145 MG TABLET PO (21:35)
[2024-03-28] MEDS: ROSUVASTATIN 10 MG TABLET PO (21:35)
[2024-03-28 21:40] LABS: Glucose Point of Care 126 mg/dl (65-105)
[2024-03-28] MEDS: ACETAMINOPHEN 500 MG TABLET 1000 MG PO (23:24)
[2024-03-29] VITALS (7 sets, daily range): BP systolic 85–126; BP diastolic 40–67; PULSE 59–76; RESP 18; TEMP 36.3–36.4; O2SAT 90–100
[2024-03-29] MEDS: HYDROcodone/acetaminophen (*CRX) 5-325 MG TABLET 1 TAB PO ×4 (02:35→20:51)
[2024-03-29] MEDS: METOPROLOL TARTRATE 6.25 MG TABLET PO ×3 (06:33→17:24)
[2024-03-29 07:11] LABS: Vancomycin Trough 17.2 ug/mL (10.0-20.0)
[2024-03-29 07:41] LABS: Glucose Point of Care 140 mg/dl (65-105)
[2024-03-29] MEDS: VANCOMYCIN 1,250 MG/NS 250 ML 1,250 MG/250 ML BAG 166 MG IVPB (08:09)
[2024-03-29] MEDS: ACIDOPHILUS/BULGARICUS CHEWABLE TABLET 1 TABLET PO ×2 (08:15→16:11)
[2024-03-29] MEDS: DABIGATRAN ETEXILATE 150 MG CAPSULE PO ×2 (08:15→20:51)
[2024-03-29] MEDS: ASPIRIN 81 MG CHEWABLE TABLET PO (08:15)
[2024-03-29] MEDS: SODIUM CHLORIDE 1 GM TABLET PO ×2 (08:15→16:11)
[2024-03-29 11:51] LABS: Glucose Point of Care 134 mg/dl (65-105)
[2024-03-29 17:17] LABS: Glucose Point of Care 111 mg/dl (65-105)
[2024-03-29 20:27] LABS: Glucose Point of Care 140 mg/dl (65-105)
[2024-03-29] MEDS: ROSUVASTATIN 10 MG TABLET PO (20:52)
[2024-03-29] MEDS: FENOFIBRATE NANOCRYSTALLIZED 145 MG TABLET PO (20:52)
[2024-03-30] VITALS (12 sets, daily range): BP systolic 104–124; BP diastolic 56–72; PULSE 60–64; RESP 16–20; TEMP 36.1–36.8; O2SAT 95–100
[2024-03-30] MEDS: METOPROLOL TARTRATE 6.25 MG TABLET PO ×5 (00:44→23:50)
[2024-03-30] MEDS: HYDROcodone/acetaminophen (*CRX) 5-325 MG TABLET 1 TAB PO ×4 (03:04→20:43)
[2024-03-30 07:55] LABS: Basophils Absolute Auto 0.1 K/mm3 (0.0-0.1); Basophils Percent Auto 0.7 % (0.2-1.2); Eosinophils Absolute Auto 0.2 K/mm3 (0-0.3); Eosinophils Percent Auto 1.7 % (0-4.4); Hematocrit 28.5 % (42.0-52.0); Hemoglobin 8.6 g/dL (14.0-18.0); Immature Granulocyte Absolute 0.21 K/mm3 (0.00-0.031); Immature Granulocyte Percent A 2.4 % (0-0.5); Lymphocytes Absolute Auto 1.61 K/mm3 (0.9-3.2); Lymphocytes Percent Auto 18.6 % (18.3-44.2); Mean Corpuscular HGB Conc 30.2 g/dl (32-36); Mean Corpuscular Hemoglobin 25.4 pg (26-34); Mean Corpuscular Volume 84.3 fl (80-100); Monocytes Absolute Auto 0.9 K/mm3 (0.1-0.6); Monocytes Percent Auto 9.8 % (2.6-8.5); Neutrophils Absolute Auto 5.8 K/mm3 (1.3-6.7); Neutrophils Percent Auto 66.8 % (45.5-73.1); Platelet Count Result 327 k/mm3 (150-375); Red Blood Count 3.38 M/mm3 (4.6-6.20); Red Cell Distribution Width 18.3 % (11.5-14.5); White Blood Count 8.7 K/mm3 (4.5-10.0)
[2024-03-30 08:01] LABS: Glucose Point of Care 97 mg/dl (65-105)
[2024-03-30 08:18] LABS: Alanine Aminotransferase 11 U/L (6-50); Albumin Level 2.9 g/dL (3.5-5.1); Alkaline Phosphatase 102 U/L (38-126); Anion Gap 5 mmol/L (4-12); Aspartate Amino Transferase 26 U/L (17-59); Bilirubin,Total 0.4 mg/dL (0.2-1.3); Blood Urea Nitrogen 16 mg/dL (9-20); Calcium 8.6 mg/dL (8.4-10.2); Carbon Dioxide 25 mmol/L (22-30); Chloride 97 mmol/L (98-107); Estimated CRCL calculation 114 ml/min; Estimated Glomerular Filt Rate > 60; Glucose 103 mg/dL (65-110); Potassium 4.4 mmol/L (3.4-5.0); Sodium 127 mmol/L (137-145)
[2024-03-30] MEDS: ACIDOPHILUS/BULGARICUS CHEWABLE TABLET 1 TABLET PO ×2 (08:56→17:21)
[2024-03-30] MEDS: DABIGATRAN ETEXILATE 150 MG CAPSULE PO ×2 (08:56→20:44)
[2024-03-30] MEDS: SODIUM CHLORIDE 1 GM TABLET PO ×2 (08:57→17:21)
[2024-03-30] MEDS: ASPIRIN 81 MG CHEWABLE TABLET PO (08:57)
[2024-03-30] MEDS: MAGNESIUM HYDROXIDE SUSP 30 ML UDC PO (08:58)
[2024-03-30] MEDS: VANCOMYCIN 1,250 MG/NS 250 ML 1,250 MG/250 ML BAG 166 MG IVPB (10:13)
--- NOTE | 2024-03-30 10:49 | P.PNIM_ITS ---
Progress Note: A&P Assessment and Plan (1) Osteomyelitis of lumbar spine: Code(s): M46.26 - Osteomyelitis of vertebra, lumbar region Status: Acute Assessment and Plan: Patient awaiting bed at tertiary facility Continue vancomycin DC Zosyn (2) Hypertension: Code(s): I10 - Essential (primary) hypertension Status: Acute Assessment and Plan: Continue home meds (3) Diastolic heart failure: Code(s): I50.30 - Unspecified diastolic (congestive) heart failure Status: Acute Assessment and Plan: Daily intake and output (4) CAD (coronary artery disease), autologous vein bypass graft: Code(s): I25.810 - Atherosclerosis of coronary artery bypass graft(s) without angina pectoris Status: Acute Assessment and Plan: Chest pain-free (5) Atrial fibrillation: Onset Date: 04/20/17 Code(s): I48.91 - Unspecified atrial fibrillation Status: Chronic Assessment and Plan: Rate controlled and anticoagulated (6) Type 2 diabetes mellitus with hyperglycemia, with long-term current use of insulin: Code(s): E11.65 - Type 2 diabetes mellitus with hyperglycemia; Z79.4 - residential (current) use of insulin Status: Acute Assessment and Plan: Continue insulin Holding sitagliptin (7) Physical deconditioning: Code(s): R53.81 - Other malaise Status: Acute Assessment and Plan: PT OT when clinically able to participate Plan MRSA bacteremia likely likely from Diskitis/osteomyelitis Blood culture positive MRSA and repeat blood culture no growth until today patient recently managed for MRSA endocarditis Cont Vanc Continue with transfer to [facility] DVT prophylaxis on Dabigatran Awaiting transfer to [facility] Called [facility] to see if they have a bed, awaiting their call back Subjective Date/time seen: 03/30/24 10:49 Interval history: Comfortable at bedside Pending transfer to [facility]. No acute events overnight. Called [facility] today and waiting for call back Review of Systems Review of Systems: Back pain, abdominal pain Exam Narrative: Laying in bed Const: General: comfortable, no acute distress, well developed, alert, awake, ill appearing chronically and obese Nutritional Appearance: obese Orientation/consciousness: patient oriented x3 Other: Generalized pallor HENMT: Head: normal to inspection, normocephalic and atraumatic Ears: hearing grossly normal bilaterally Face/Nose/Sinus: normal facial exam Face and sinus: normal facial exam Eyes: General: appearance normal, both eyes and all related structures Pupils: Equal, round and reactive pupils present EOM: EOMs intact bilaterally Neck: Neck: full ROM, no lymphadenopathy and no JVD Thyroid: thyroid normal Lymphatic: no lymphadenopathy noted Resp: Effort & Inspection: normal respiratory effort and able to speak in complete sentences Auscultation: clear to auscultation bilaterally Cardio: Jugular venous distension: no JVD Rate: regular rate Rhythm: regular rhythm Heart sounds: S1 normal heart sound present and S2 normal heart sound present GI: Inspection: Pannus present and obesity : General: Yes deferred Skin: Rashes: no rashes Wounds: no wounds Neuro: General: patient oriented x3, CN's II-XI intact bilaterally and Unable to assess gait Cranial nerves: Yes CN's II-XII intact bilaterally and Yes Equal, round and reactive pupils present Cognition (Neuro): normal cognition Speech: normal speech Gait exam (Neuro): Unable to assess gait Motor exam (neuro): 5/5 motor strength present throughout Extrem: General: normal to inspection, full ROM, no joint enlargement and no pedal edema Objective Data Vital Signs Vital Signs: Vital Signs - 24 hr 03/29/24 12:19 03/29/24 14:00 03/29/24 17:24 Temperature 97.4 F L Pulse Rate 60 76 60 Respiratory Rate 18 Blood Pressure 85/40 L Pulse Oximetry 100 Oxygen Delivery 03/29/24 20:00 03/29/24 22:00 03/30/24 00:44 Temperature 97.6 F Pulse Rate 60 61 Respiratory Rate 18 Blood Pressure 104/67 Pulse Oximetry 100 Oxygen Delivery Room Air 03/30/24 05:57 03/30/24 06:00 03/30/24 08:57 Temperature 97.7 F Pulse Rate 60 60 Respiratory Rate 16 Blood Pressure 104/61 Pulse Oximetry 96 96 Oxygen Delivery Room Air Intake/Output Intake/Output: Intake & Output 03/27/24 03/28/24 03/29/24 03/30/24 23:59 23:59 23:59 23:59 Intake Total 1550 1280 490 240 Output Total 2730 350 1200 600 Balance -1180 930 -710 -360 Meds/Results Medications: Active Medications Generic Name Dose Route Start Last Admin Trade Name Freq PRN Reason Stop Dose Admin Acetaminophen 1,000 mg 03/16/24 02:11 03/28/24 23:24 Acetaminophen 500 Mg Tablet PO 1,000 mg Q8H PRN Administration fever or pain Hydrocodone Bitart/Acetaminophen 1 tab 03/13/24 21:00 03/30/24 08:57 Hydrocodone/Acetaminophen (*Crx) 5-325 Mg Tablet PO 03/30/24 23:59 1 tab Q6H SUNNY Administration Aspirin 81 mg 03/16/24 08:00 03/30/24 08:57 Aspirin 81 Mg Chewable Tablet PO 81 mg DAILY@0800 SUNNY Administration Dabigatran 150 mg 03/16/24 09:00 03/30/24 08:56 Dabigatran Etexilate 150 Mg Capsule PO 150 mg Q12HR SUNNY Administration Dextrose 12.5 gm 03/13/24 21:39 Dextrose 50% 25 Gm/50 Ml Syringe IV PUSH PRN PRN Hypoglycemia Protocol Fenofibrate 145 mg 03/16/24 21:00 03/29/24 20:52 Fenofibrate Nanocrystallized 145 Mg Tablet PO 145 mg QHS SUNNY Administration Glucagon 1 mg 03/13/24 21:39 Glucagon For Inj 1 Mg Vial IM PRN PRN Hypoglycemia Protocol Glucose 15 gm 03/13/24 21:39 Glucose Oral Gel 15 Gm Of Glucse In 37.5 Gm Tube PO PRN PRN Hypoglycemia Protocol Dextrose 1,000 mls @ 100 mls/hr 03/13/24 21:39 Dextrose 5% 1,000 Ml IVPB PRN PRN Hypoglycemia Protocol Vancomycin HCl 1,250 mg in 250 mls @ 166.667 mls/hr 03/24/24 07:00 03/30/24 10:13 Vancomycin 1,250 Mg/Ns 250 Ml IVPB 04/26/24 23:59 166 mls/hr Q24H SUNNY Administration Insulin Aspart 4 - 8 units 03/21/24 08:00 03/30/24 08:58 Insulin Aspart (*Bkc) 100 Units/Ml SUB-Q Not Given [facility] Protocol Lactobacillus Acidophilus 1 tablet 03/16/24 09:00 03/30/24 08:56 Acidophilus/Bulgaricus Chewable Tablet PO 1 tablet BID SUNNY Administration Lidocaine 1 patch 03/26/24 16:10 03/30/24 08:58 Lidocaine 5% Patch TRANSDERM Not Given DAILY SUNNY Magnesium Hydroxide 30 ml 03/14/24 09:00 03/30/24 08:58 Magnesium Hydroxide Susp 30 Ml Udc PO 30 ml QAM SUNNY Administration Metoprolol Tartrate 6.25 mg 03/16/24 06:00 03/30/24 05:57 Metoprolol Tartrate 6.25 Mg Tablet PO 6.25 mg Q6HR SUNNY Administration Orphenadrine Citrate 100 mg 03/14/24 22:24 03/26/24 06:11 Orphenadrine Citrate 100 Mg Tablet.Er PO 100 mg Q12HR PRN Administration Muscle Spasm Polyethylene Glycol 17 gm 03/16/24 09:00 03/30/24 08:58 Polyethylene Glycol 3350 17 Gm Powd.Pack FEED TUBE Not Given BID SUNNY Rosuvastatin Calcium 10 mg 03/14/24 21:00 03/29/24 20:52 Rosuvastatin 10 Mg Tablet PO 10 mg BEDTIME SUNNY Administration Sodium Chloride 1 gm 03/24/24 09:00 03/30/24 08:57 Sodium Chloride 1 Gm Tablet PO 1 gm BID SUNNY Administration Radiology Results: ITS Impressions Chest X-Ray 03/13/24 15:57 Impression: 1: Cardiomegaly with mild interstitial edema. Abdomen/Pelvis CT 03/13/24 17:07 IMPRESSION: Large hiatal hernia. Findings within the liver and spleen suggesting prior granulomatous disease. Fecal stasis within the colon and distending the rectum suggesting fecal impaction. Findings at the level of the inferior endplate of L3 which demonstrate progression from previous examination, possibly representing discitis/osteomyelitis for which clinical and serologic correlation is needed. Head CT 03/13/24 19:07 Impression: No acute intracranial hemorrhage or suspicious mass effect. Labs Labs: Laboratory Results - last 24 hr 03/29/24 03/29/24 03/29/24 11:44 17:10 20:15 WBC RBC Hgb Hct MCV MCH MCHC RDW Plt Count MPV Immature Gran % (Auto) Neut % (Auto) Lymph % (Auto) [place] % (Auto) Eos % (Auto) Baso % (Auto) Lymph # (Auto) [place] # (Auto) Eos # (Auto) Baso # (Auto) Abs Immat Gran (auto) Absolute Neuts (auto) Absolute Nucleated RBC Nucleated RBC % Sodium Potassium Chloride Carbon Dioxide Anion Gap BUN Creatinine Estim Creat Clear Calc Estimated GFR Glucose POC Capillary Glucose 134 H 111 H 140 H Calcium Total Bilirubin AST ALT Alkaline Phosphatase Total Protein Albumin 03/30/24 03/30/24 07:48 07:53 WBC 8.7 RBC 3.38 L Hgb 8.6 L Hct 28.5 L MCV 84.3 MCH 25.4 L MCHC 30.2 L RDW 18.3 H Plt Count 327 MPV 9.0 Immature Gran % (Auto) 2.4 H Neut % (Auto) 66.8 Lymph % (Auto) 18.6 [place] % (Auto) 9.8 H Eos % (Auto) 1.7 Baso % (Auto) 0.7 Lymph # (Auto) 1.61 [place] # (Auto) 0.9 H Eos # (Auto) 0.2 Baso # (Auto) 0.1 Abs Immat Gran (auto) 0.21 H Absolute Neuts (auto) 5.8 Absolute Nucleated RBC 0.000 Nucleated RBC % 0.0 Sodium 127 L Potassium 4.4 Chloride 97 L Carbon Dioxide 25 Anion Gap 5 BUN 16 Creatinine 0.53 L Estim Creat Clear Calc 114 Estimated GFR > 60 Glucose 103 POC Capillary Glucose 97 Calcium 8.6 Total Bilirubin 0.4 AST 26 ALT 11 Alkaline Phosphatase 102 Total Protein 6.0 L Albumin 2.9 L
--- NOTE | 2024-03-30 11:08 | PCNFU ---
Nutrition Follow-Up Complete: Severe protein calorie malnutrition related to recent acute infection, hospitalization; increased needs from multiple pressure injuries as evidenced by weight loss -13%/3 months; intakes <75% needs >1 month; severe muscle wasting and fat loss Goal: Adequate PO intake at least 75% meals and supplements for wound healing support Patient is meeting current goal. No new goal. Pt current nutrition is DBCC with Flex BID and Glucerna shake TID Last recorded weight is 94 kg, up from 88.2 kg on admit Bowel Motility: Na 127, Hct 28.5, Hgb 8.6 Labs Reviewed:NovoLog,Lopressor, Miralax. Meds Noted: Na 127, Hct 28.5,Hgb 8.6 Skin:multiple wounds-see wound nursing assessment. Additional Notes: Patient remains on a DBCC diet. Oral Intake has been > 75% overall. Protein Modular for wound healing being providing of Flex BID and Glucerna shake. Agree with diet orders. Monitoring intakes, weights, labs, supplement tolerance, skin, plan of care Follow up in 5 days
[2024-03-30 11:57] LABS: Glucose Point of Care 98 mg/dl (65-105)
[2024-03-30 17:15] LABS: Glucose Point of Care 125 mg/dl (65-105)
[2024-03-30] MEDS: polyethylene glycoL 3350 17 GM POWD.PACK FEED TUBE (17:22)
[2024-03-30] MEDS: FENOFIBRATE NANOCRYSTALLIZED 145 MG TABLET PO (20:43)
[2024-03-30] MEDS: ROSUVASTATIN 10 MG TABLET PO (20:44)
[2024-03-30 20:48] LABS: Glucose Point of Care 160 mg/dl (65-105)
[2024-03-30] MEDS: ACETAMINOPHEN 500 MG TABLET 1000 MG PO (23:49)
[2024-03-31] VITALS (7 sets, daily range): BP systolic 109–123; BP diastolic 53–60; PULSE 60–106; RESP 18–20; TEMP 36.3–36.4; O2SAT 90–100
[2024-03-31] MEDS: ORPHENADRINE CITRATE 100 MG TABLET.ER PO (03:12)
[2024-03-31 05:38] LABS: Estimated CRCL calculation 96 ml/min; Estimated Glomerular Filt Rate > 60
[2024-03-31] MEDS: METOPROLOL TARTRATE 6.25 MG TABLET PO ×3 (05:44→17:38)
[2024-03-31] MEDS: VANCOMYCIN 1,250 MG/NS 250 ML 1,250 MG/250 ML BAG 166 MG IVPB (05:49)
[2024-03-31 08:11] LABS: Glucose Point of Care 130 mg/dl (65-105)
[2024-03-31] MEDS: DABIGATRAN ETEXILATE 150 MG CAPSULE PO ×2 (08:58→20:17)
[2024-03-31] MEDS: LIDOCAINE 5% PATCH 1 PATCH TRANSDERM (08:58)
[2024-03-31] MEDS: SODIUM CHLORIDE 1 GM TABLET PO ×2 (08:58→17:39)
[2024-03-31] MEDS: ACIDOPHILUS/BULGARICUS CHEWABLE TABLET 1 TABLET PO ×2 (08:58→17:39)
[2024-03-31] MEDS: MAGNESIUM HYDROXIDE SUSP 30 ML UDC PO (08:58)
[2024-03-31] MEDS: ASPIRIN 81 MG CHEWABLE TABLET PO (08:58)
[2024-03-31] MEDS: ACETAMINOPHEN 500 MG TABLET 1000 MG PO (09:02)
[2024-03-31 11:54] LABS: Glucose Point of Care 149 mg/dl (65-105)
--- NOTE | 2024-03-31 13:37 | P.PNIM_ITS ---
Progress Note: A&P Assessment and Plan (1) Osteomyelitis of lumbar spine: Code(s): M46.26 - Osteomyelitis of vertebra, lumbar region Status: Acute Assessment and Plan: Patient awaiting bed at tertiary facility Continue vancomycin DC Zosyn (2) Hypertension: Code(s): I10 - Essential (primary) hypertension Status: Acute Assessment and Plan: Continue home meds (3) Diastolic heart failure: Code(s): I50.30 - Unspecified diastolic (congestive) heart failure Status: Acute Assessment and Plan: Daily intake and output (4) CAD (coronary artery disease), autologous vein bypass graft: Code(s): I25.810 - Atherosclerosis of coronary artery bypass graft(s) without angina pectoris Status: Acute Assessment and Plan: Chest pain-free (5) Atrial fibrillation: Onset Date: 04/20/17 Code(s): I48.91 - Unspecified atrial fibrillation Status: Chronic Assessment and Plan: Rate controlled and anticoagulated (6) Type 2 diabetes mellitus with hyperglycemia, with long-term current use of insulin: Code(s): E11.65 - Type 2 diabetes mellitus with hyperglycemia; Z79.4 - intermediate (current) use of insulin Status: Acute Assessment and Plan: Continue insulin Holding sitagliptin (7) Physical deconditioning: Code(s): R53.81 - Other malaise Status: Acute Assessment and Plan: PT OT when clinically able to participate Plan MRSA bacteremia likely likely from Diskitis/osteomyelitis Blood culture positive MRSA and repeat blood culture no growth until today patient recently managed for MRSA endocarditis Cont Vanc Continue with transfer to [facility] DVT prophylaxis on Dabigatran Awaiting transfer to [facility] Subjective Date/time seen: 03/31/24 13:37 Interval history: Comfortable at bedside Pending transfer to [facility] Review of Systems Review of Systems: Back pain, abdominal pain Exam Narrative: Laying in bed Const: General: comfortable, no acute distress, well developed, alert, awake, ill appearing chronically and obese Nutritional Appearance: obese Orientation/consciousness: patient oriented x3 Other: Generalized pallor HENMT: Head: normal to inspection, normocephalic and atraumatic Ears: hearing grossly normal bilaterally Face/Nose/Sinus: normal facial exam Face and sinus: normal facial exam Eyes: General: appearance normal, both eyes and all related structures Pupils: Equal, round and reactive pupils present EOM: EOMs intact bilaterally Neck: Neck: full ROM, no lymphadenopathy and no JVD Thyroid: thyroid normal Lymphatic: no lymphadenopathy noted Resp: Effort & Inspection: normal respiratory effort and able to speak in complete sentences Auscultation: clear to auscultation bilaterally Cardio: Jugular venous distension: no JVD Rate: regular rate Rhythm: regular rhythm Heart sounds: S1 normal heart sound present and S2 normal heart sound present GI: Inspection: Pannus present and obesity : General: Yes deferred Skin: Rashes: no rashes Wounds: no wounds Neuro: General: patient oriented x3, CN's II-XI intact bilaterally and Unable to assess gait Cranial nerves: Yes CN's II-XII intact bilaterally and Yes Equal, round and reactive pupils present Cognition (Neuro): normal cognition Speech: normal speech Gait exam (Neuro): Unable to assess gait Motor exam (neuro): 5/5 motor strength present throughout Extrem: General: normal to inspection, full ROM, no joint enlargement and no pedal edema Objective Data Vital Signs Vital Signs: Vital Signs - 24 hr 03/30/24 14:00 03/30/24 17:20 03/30/24 17:21 Temperature 97.9 F 98.2 F Pulse Rate 60 61 61 Respiratory Rate 16 18 Blood Pressure 114/72 124/59 L Pulse Oximetry 100 98 Oxygen Delivery 03/30/24 20:28 03/30/24 20:38 03/30/24 23:45 Temperature 97.0 F L Pulse Rate 61 60 Respiratory Rate 20 Blood Pressure 124/59 L 123/58 L Pulse Oximetry 95 95 Oxygen Delivery Room Air 03/30/24 23:50 03/31/24 05:44 03/31/24 05:49 Temperature 97.5 F L Pulse Rate 60 60 60 Respiratory Rate 20 Blood Pressure 109/53 L Pulse Oximetry 100 Oxygen Delivery 03/31/24 08:00 03/31/24 12:29 Temperature Pulse Rate 60 Respiratory Rate Blood Pressure Pulse Oximetry Oxygen Delivery Room Air Intake/Output Intake/Output: Intake & Output 03/28/24 03/29/24 03/30/24 03/31/24 23:59 23:59 23:59 23:59 Intake Total 1280 490 970 940 Output Total 350 1200 950 600 Balance 930 -710 20 340 Meds/Results Medications: Active Medications Generic Name Dose Route Start Last Admin Trade Name Freq PRN Reason Stop Dose Admin Acetaminophen 1,000 mg 03/16/24 02:11 03/31/24 09:02 Acetaminophen 500 Mg Tablet PO 1,000 mg Q8H PRN Administration fever or pain Aspirin 81 mg 03/16/24 08:00 03/31/24 08:58 Aspirin 81 Mg Chewable Tablet PO 81 mg DAILY@0800 SUNNY Administration Dabigatran 150 mg 03/16/24 09:00 03/31/24 08:58 Dabigatran Etexilate 150 Mg Capsule PO 150 mg Q12HR SUNNY Administration Dextrose 12.5 gm 03/13/24 21:39 Dextrose 50% 25 Gm/50 Ml Syringe IV PUSH PRN PRN Hypoglycemia Protocol Fenofibrate 145 mg 03/16/24 21:00 03/30/24 20:43 Fenofibrate Nanocrystallized 145 Mg Tablet PO 145 mg QHS SUNNY Administration Glucagon 1 mg 03/13/24 21:39 Glucagon For Inj 1 Mg Vial IM PRN PRN Hypoglycemia Protocol Glucose 15 gm 03/13/24 21:39 Glucose Oral Gel 15 Gm Of Glucse In 37.5 Gm Tube PO PRN PRN Hypoglycemia Protocol Dextrose 1,000 mls @ 100 mls/hr 03/13/24 21:39 Dextrose 5% 1,000 Ml IVPB PRN PRN Hypoglycemia Protocol Vancomycin HCl 1,250 mg in 250 mls @ 166.667 mls/hr 03/24/24 07:00 03/31/24 07:20 Vancomycin 1,250 Mg/Ns 250 Ml IVPB 04/26/24 23:59 Infused Q24H SUNNY Infusion Insulin Aspart 4 - 8 units 03/21/24 08:00 03/31/24 11:57 Insulin Aspart (*Bkc) 100 Units/Ml SUB-Q Not Given [facility] Protocol Lactobacillus Acidophilus 1 tablet 03/16/24 09:00 03/31/24 08:58 Acidophilus/Bulgaricus Chewable Tablet PO 1 tablet BID SUNNY Administration Lidocaine 1 patch 03/26/24 16:10 03/31/24 08:58 Lidocaine 5% Patch TRANSDERM 1 patch DAILY SUNNY Administration Magnesium Hydroxide 30 ml 03/14/24 09:00 03/31/24 08:58 Magnesium Hydroxide Susp 30 Ml Udc PO 30 ml QAM SUNNY Administration Metoprolol Tartrate 6.25 mg 03/16/24 06:00 03/31/24 12:29 Metoprolol Tartrate 6.25 Mg Tablet PO 6.25 mg Q6HR SUNNY Administration Orphenadrine Citrate 100 mg 03/14/24 22:24 03/31/24 03:12 Orphenadrine Citrate 100 Mg Tablet.Er PO 100 mg Q12HR PRN Administration Muscle Spasm Polyethylene Glycol 17 gm 03/16/24 09:00 03/31/24 08:59 Polyethylene Glycol 3350 17 Gm Powd.Pack FEED TUBE Not Given BID SUNNY Rosuvastatin Calcium 10 mg 03/14/24 21:00 03/30/24 20:44 Rosuvastatin 10 Mg Tablet PO 10 mg BEDTIME SUNNY Administration Sodium Chloride 1 gm 03/24/24 09:00 03/31/24 08:58 Sodium Chloride 1 Gm Tablet PO 1 gm BID SUNNY Administration Radiology Results: ITS Impressions Chest X-Ray 03/13/24 15:57 Impression: 1: Cardiomegaly with mild interstitial edema. Abdomen/Pelvis CT 03/13/24 17:07 IMPRESSION: Large hiatal hernia. Findings within the liver and spleen suggesting prior granulomatous disease. Fecal stasis within the colon and distending the rectum suggesting fecal impaction. Findings at the level of the inferior endplate of L3 which demonstrate progression from previous examination, possibly representing discitis/osteomyelitis for which clinical and serologic correlation is needed. Head CT 03/13/24 19:07 Impression: No acute intracranial hemorrhage or suspicious mass effect. Labs Labs: Laboratory Results - last 24 hr 03/30/24 03/30/24 03/31/24 17:05 20:30 05:02 Creatinine 0.64 L Estim Creat Clear Calc 96 Estimated GFR > 60 POC Capillary Glucose 125 H 160 H 03/31/24 03/31/24 08:07 11:45 Creatinine Estim Creat Clear Calc Estimated GFR POC Capillary Glucose 130 H 149 H
[2024-03-31 16:56] LABS: Glucose Point of Care 162 mg/dl (65-105)
[2024-03-31] MEDS: ROSUVASTATIN 10 MG TABLET PO (20:17)
[2024-03-31] MEDS: FENOFIBRATE NANOCRYSTALLIZED 145 MG TABLET PO (20:17)
[2024-03-31 21:08] LABS: Glucose Point of Care 131 mg/dl (65-105)
[2024-04-01 05:55] VITALS: BP 117/52; PULSE 61; RESP 20; TEMP 36.4; O2SAT 93
[2024-04-01 06:47] LABS: Vancomycin Trough 17.5 ug/mL (10.0-20.0)
[2024-04-01] MEDS: METOPROLOL TARTRATE 6.25 MG TABLET PO ×3 (07:17→17:03)
[2024-04-01 08:00] LABS: Glucose Point of Care 122 mg/dl (65-105)
--- NOTE | 2024-04-01 08:51 | P.PNIM_ITS ---
Progress Note: A&P Assessment and Plan (1) Osteomyelitis of lumbar spine: Code(s): M46.26 - Osteomyelitis of vertebra, lumbar region Status: Acute Assessment and Plan: Patient awaiting bed at tertiary facility Continue vancomycin DC Zosyn (2) Hypertension: Code(s): I10 - Essential (primary) hypertension Status: Acute Assessment and Plan: Continue home meds (3) Diastolic heart failure: Code(s): I50.30 - Unspecified diastolic (congestive) heart failure Status: Acute Assessment and Plan: Daily intake and output (4) CAD (coronary artery disease), autologous vein bypass graft: Code(s): I25.810 - Atherosclerosis of coronary artery bypass graft(s) without angina pectoris Status: Acute Assessment and Plan: Chest pain-free (5) Atrial fibrillation: Onset Date: 04/20/17 Code(s): I48.91 - Unspecified atrial fibrillation Status: Chronic Assessment and Plan: Rate controlled and anticoagulated (6) Type 2 diabetes mellitus with hyperglycemia, with long-term current use of insulin: Code(s): E11.65 - Type 2 diabetes mellitus with hyperglycemia; Z79.4 - [facility] (current) use of insulin Status: Acute Assessment and Plan: Continue insulin Holding sitagliptin (7) Physical deconditioning: Code(s): R53.81 - Other malaise Status: Acute Assessment and Plan: PT OT when clinically able to participate Plan MRSA bacteremia likely likely from Diskitis/osteomyelitis Blood culture positive MRSA and repeat blood culture no growth until today patient recently managed for MRSA endocarditis Cont Vanc Continue with transfer to [facility] DVT prophylaxis on Dabigatran Awaiting transfer to [facility] and [facility] Subjective Date/time seen: 04/01/24 08:51 Interval history: Comfortable at bedside Pending transfer to [facility] Review of Systems Review of Systems: Back pain, abdominal pain Exam Narrative: Laying in bed Const: General: comfortable, no acute distress, well developed, alert, awake, ill appearing chronically and obese Nutritional Appearance: obese Orientation/consciousness: patient oriented x3 Other: Generalized pallor HENMT: Head: normal to inspection, normocephalic and atraumatic Ears: hearing grossly normal bilaterally Face/Nose/Sinus: normal facial exam Face and sinus: normal facial exam Eyes: General: appearance normal, both eyes and all related structures Pupils: Equal, round and reactive pupils present EOM: EOMs intact bilaterally Neck: Neck: full ROM, no lymphadenopathy and no JVD Thyroid: thyroid normal Lymphatic: no lymphadenopathy noted Resp: Effort & Inspection: normal respiratory effort and able to speak in complete sentences Auscultation: clear to auscultation bilaterally Cardio: Jugular venous distension: no JVD Rate: regular rate Rhythm: regular rhythm Heart sounds: S1 normal heart sound present and S2 normal heart sound present GI: Inspection: Pannus present and obesity : General: Yes deferred Skin: Rashes: no rashes Wounds: no wounds Neuro: General: patient oriented x3, CN's II-XI intact bilaterally and Unable to assess gait Cranial nerves: Yes CN's II-XII intact bilaterally and Yes Equal, round and reactive pupils present Cognition (Neuro): normal cognition Speech: normal speech Gait exam (Neuro): Unable to assess gait Motor exam (neuro): 5/5 motor strength present throughout Extrem: General: normal to inspection, full ROM, no joint enlargement and no pedal edema Objective Data Vital Signs Vital Signs: Vital Signs - 24 hr 03/31/24 12:29 03/31/24 14:00 03/31/24 17:38 Temperature 97.4 F L Pulse Rate 60 106 H 76 Respiratory Rate 18 Blood Pressure 112/60 Pulse Oximetry 100 Oxygen Delivery Fraction of Inspired Oxygen 03/31/24 19:41 03/31/24 20:22 04/01/24 05:55 Temperature 97.4 F L 97.6 F Pulse Rate 76 61 61 Respiratory Rate 18 20 20 Blood Pressure 123/59 L 117/52 L Pulse Oximetry 100 90 93 Oxygen Delivery Room Air Fraction of Inspired Oxygen 21 Intake/Output Intake/Output: Intake & Output 03/29/24 03/30/24 03/31/24 04/01/24 23:59 23:59 23:59 23:59 Intake Total 250 274 8700 300 Output Total 2503 043 6467 550 Balance -710 20 370 -250 Meds/Results Medications: Active Medications Generic Name Dose Route Start Last Admin Trade Name Freq PRN Reason Stop Dose Admin Acetaminophen 1,000 mg 03/16/24 02:11 03/31/24 09:02 Acetaminophen 500 Mg Tablet PO 1,000 mg Q8H PRN Administration fever or pain Aspirin 81 mg 03/16/24 08:00 03/31/24 08:58 Aspirin 81 Mg Chewable Tablet PO 81 mg DAILY@0800 SUNNY Administration Dabigatran 150 mg 03/16/24 09:00 03/31/24 20:17 Dabigatran Etexilate 150 Mg Capsule PO 150 mg Q12HR SUNNY Administration Dextrose 12.5 gm 03/13/24 21:39 Dextrose 50% 25 Gm/50 Ml Syringe IV PUSH PRN PRN Hypoglycemia Protocol Fenofibrate 145 mg 03/16/24 21:00 03/31/24 20:17 Fenofibrate Nanocrystallized 145 Mg Tablet PO 145 mg QHS SUNNY Administration Glucagon 1 mg 03/13/24 21:39 Glucagon For Inj 1 Mg Vial IM PRN PRN Hypoglycemia Protocol Glucose 15 gm 03/13/24 21:39 Glucose Oral Gel 15 Gm Of Glucse In 37.5 Gm Tube PO PRN PRN Hypoglycemia Protocol Dextrose 1,000 mls @ 100 mls/hr 03/13/24 21:39 Dextrose 5% 1,000 Ml IVPB PRN PRN Hypoglycemia Protocol Vancomycin HCl 1,250 mg in 250 mls @ 166.667 mls/hr 03/24/24 07:00 03/31/24 07:20 Vancomycin 1,250 Mg/Ns 250 Ml IVPB 04/26/24 23:59 Infused Q24H SUNNY Infusion Insulin Aspart 4 - 8 units 03/21/24 08:00 03/31/24 20:18 Insulin Aspart (*Bkc) 100 Units/Ml SUB-Q Not Given [facility] Protocol Lactobacillus Acidophilus 1 tablet 03/16/24 09:00 03/31/24 17:39 Acidophilus/Bulgaricus Chewable Tablet PO 1 tablet BID SUNNY Administration Lidocaine 1 patch 03/26/24 16:10 03/31/24 08:58 Lidocaine 5% Patch TRANSDERM 1 patch DAILY SUNNY Administration Magnesium Hydroxide 30 ml 03/14/24 09:00 03/31/24 08:58 Magnesium Hydroxide Susp 30 Ml Udc PO 30 ml QAM SUNNY Administration Metoprolol Tartrate 6.25 mg 03/16/24 06:00 04/01/24 07:17 Metoprolol Tartrate 6.25 Mg Tablet PO 6.25 mg Q6HR SUNNY Administration Orphenadrine Citrate 100 mg 03/14/24 22:24 03/31/24 03:12 Orphenadrine Citrate 100 Mg Tablet.Er PO 100 mg Q12HR PRN Administration Muscle Spasm Polyethylene Glycol 17 gm 03/16/24 09:00 03/31/24 17:46 Polyethylene Glycol 3350 17 Gm Powd.Pack FEED TUBE Not Given BID SUNNY Rosuvastatin Calcium 10 mg 03/14/24 21:00 03/31/24 20:17 Rosuvastatin 10 Mg Tablet PO 10 mg BEDTIME SUNNY Administration Sodium Chloride 1 gm 03/24/24 09:00 03/31/24 17:39 Sodium Chloride 1 Gm Tablet PO 1 gm BID SUNNY Administration Radiology Results: ITS Impressions Chest X-Ray 03/13/24 15:57 Impression: 1: Cardiomegaly with mild interstitial edema. Abdomen/Pelvis CT 03/13/24 17:07 IMPRESSION: Large hiatal hernia. Findings within the liver and spleen suggesting prior granulomatous disease. Fecal stasis within the colon and distending the rectum suggesting fecal impaction. Findings at the level of the inferior endplate of L3 which demonstrate progression from previous examination, possibly representing discitis/osteomyelitis for which clinical and serologic correlation is needed. Head CT 03/13/24 19:07 Impression: No acute intracranial hemorrhage or suspicious mass effect. Labs Labs: Laboratory Results - last 24 hr 03/31/24 03/31/24 03/31/24 11:45 16:51 20:17 POC Capillary Glucose 149 H 162 H 131 H Vancomycin Trough 04/01/24 04/01/24 06:01 07:56 POC Capillary Glucose 122 H Vancomycin Trough 17.5
[2024-04-01] MEDS: LIDOCAINE 5% PATCH 1 PATCH TRANSDERM (09:13)
[2024-04-01] MEDS: SODIUM CHLORIDE 1 GM TABLET PO ×2 (09:13→16:07)
[2024-04-01] MEDS: DABIGATRAN ETEXILATE 150 MG CAPSULE PO ×2 (09:13→21:09)
[2024-04-01] MEDS: ASPIRIN 81 MG CHEWABLE TABLET PO (09:13)
[2024-04-01] MEDS: ACIDOPHILUS/BULGARICUS CHEWABLE TABLET 1 TABLET PO ×2 (09:13→16:07)
[2024-04-01] MEDS: VANCOMYCIN 1,250 MG/NS 250 ML 1,250 MG/250 ML BAG 166 MG IVPB (09:14)
[2024-04-01] MEDS: ACETAMINOPHEN 500 MG TABLET 1000 MG PO ×2 (09:20→17:05)
[2024-04-01 12:08] LABS: Glucose Point of Care 134 mg/dl (65-105)
[2024-04-01 13:26] VITALS: PULSE 61
[2024-04-01 14:00] VITALS: BP 122/77; PULSE 59; RESP 20; TEMP 36.4; O2SAT 90
[2024-04-01 16:37] LABS: Glucose Point of Care 149 mg/dl (65-105)
[2024-04-01 17:03] VITALS: PULSE 65
[2024-04-01 20:51] VITALS: BP 102/61; PULSE 100; RESP 20; TEMP 36.4; O2SAT 93
[2024-04-01 20:58] LABS: Glucose Point of Care 144 mg/dl (65-105)
[2024-04-01] MEDS: FENOFIBRATE NANOCRYSTALLIZED 145 MG TABLET PO (21:09)
[2024-04-01] MEDS: ROSUVASTATIN 10 MG TABLET PO (21:10)
[2024-04-01] MEDS: ORPHENADRINE CITRATE 100 MG TABLET.ER PO (21:17)
[2024-04-02] VITALS (33 sets, daily range): BP systolic 94–136; BP diastolic 46–83; PULSE 58–83; RESP 15–32; TEMP 34.3–37.3; O2SAT 86–100
[2024-04-02] MEDS: METOPROLOL TARTRATE 6.25 MG TABLET PO ×3 (00:03→18:00)
--- NOTE | 2024-04-02 06:45 | PC.NURSE ---
HR 93.8 rectal BP soft 100/46, lethargic and pale Pt arouses to name slowly. O2 saturation unable to obtain applied O2 @ 2L. and Rapid response called
[2024-04-02] MEDS: VANCOMYCIN 1,250 MG/NS 250 ML 1,250 MG/250 ML BAG 166 MG IVPB (07:02)
[2024-04-02 07:11] LABS: Hematocrit 34.1 % (42.0-52.0); Hemoglobin 9.8 g/dL (14.0-18.0); Mean Corpuscular HGB Conc 28.7 g/dl (32-36); Mean Corpuscular Hemoglobin 25.9 pg (26-34); Mean Platelet Volume 9.4 fl (7.4-10.4); Platelet Count Result 402 k/mm3 (150-375); Red Blood Count 3.79 M/mm3 (4.6-6.20); Red Cell Distribution Width 18.6 % (11.5-14.5); White Blood Count 13.1 K/mm3 (4.5-10.0)
[2024-04-02 07:48] LABS: Alveolar/Arterial O2 Gradient 44.8 mmHg; Base Excess ABG -5.4 mEq/l (+/-2.0); Fractional Inspired Oxygen 32 %; HCO3 ABG 20.5 mEq/l (22.0-26.0); Oxygen Content ABG 14.7 %vol (16.0-22.0); Oxygen Saturation ABG 98.5 % (95.0-100.0); Oxyhemoglobin 97.9 % THb (90.0-100.0); PCO2 ABG 41.4 mmHg (35.0-45.0); PO2 ABG 134.9 mmHg (80.0-100.0); PO2 FiO2 Ratio Arterial Blood 4.22 %; Total Hemoglobin 10.5 g/dL (12.0-18.0); pH ABG 7.312 (7.350-7.450)
[2024-04-02 07:50] LABS: Device NASAL CANNULA; Modified Allen's Test Pass; Site Drawn RIGHT RADIAL
--- NOTE | 2024-04-02 08:08 | PC.NURSE ---
Call placed to Son Diego and informed of patient condition and being moved to another unit.
[2024-04-02 08:37] LABS: Glucose Point of Care 132 mg/dl (65-105)
[2024-04-02 08:43] LABS: Lactic Acid Reflex 1.5 mmol/L (0.7-2.0)
[2024-04-02 08:43] LABS: Alanine Aminotransferase 40 U/L (6-50); Albumin Level 3.1 g/dL (3.5-5.1); Alkaline Phosphatase 115 U/L (38-126); Anion Gap 8 mmol/L (4-12); Aspartate Amino Transferase 121 U/L (17-59); Bilirubin,Total 0.6 mg/dL (0.2-1.3); Blood Urea Nitrogen 22 mg/dL (9-20); Calcium 8.4 mg/dL (8.4-10.2); Carbon Dioxide 21 mmol/L (22-30); Chloride 94 mmol/L (98-107); Estimated CRCL calculation 89 ml/min; Estimated Glomerular Filt Rate > 60; Glucose 138 mg/dL (65-110); Magnesium 2.4 mg/dL (1.6-2.3); Potassium 5.6 mmol/L (3.4-5.0); Sodium 123 mmol/L (137-145)
--- NOTE | 2024-04-02 08:50 | PC.NURSE ---
Patient to CT via bed. Accompanied by this RN.
--- NOTE | 2024-04-02 09:03 | PC.NURSE ---
This patient, Diego Marquez Sr., was received from [ ] on 04/02/24 at 1410. Patient/family oriented to unit policies and routines
--- NOTE | 2024-04-02 09:10 | PC.NURSE ---
This patient, Diego Marquez ., was received from [[id number]] on 04/02/24 at 0910. Patient/family oriented to unit policies and routines. Bedside report received from Wale PINON.
--- NOTE | 2024-04-02 09:10 | PC.NURSE ---
This patient, Diego Marquez ., was received from [[id number]] on 04/02/24 at 0910. Patient/family oriented to unit policies and routines. Bedside report received from Wale PINON.
--- NOTE | 2024-04-02 09:28 | PC.NURSE ---
Addendum entered by Wale Melvin RN 04/02/24 09:40: Report given to Morelia PINON Original Note: This patient, Diego Marquez ., was transferred to ICU on 04/02/24 at 0915. Personal belongings sent with patient. Report given to Alice PINON. Appropriate documentation sent with patient.
[2024-04-02] MEDS: CEFEPIME 2 GM/NS 50 ML 2 GM/50 ML BAG IVPB ×2 (09:29→18:01)
[2024-04-02] MEDS: DABIGATRAN ETEXILATE 150 MG CAPSULE PO ×2 (09:31→21:26)
[2024-04-02] MEDS: ACIDOPHILUS/BULGARICUS CHEWABLE TABLET 1 TABLET PO ×2 (09:31→18:00)
[2024-04-02] MEDS: ASPIRIN 81 MG CHEWABLE TABLET PO (09:31)
[2024-04-02] MEDS: SODIUM CHLORIDE 1 GM TABLET PO ×2 (09:31→18:00)
[2024-04-02 10:08] LABS: Add Urine Microscopic? YES; Appearance Urine Turbid (Clear); Bacteria Urine 4+ /hpf; Bilirubin Urine Negative (Negative); Blood Urine 2+ (Negative); Color Urine Yellow (Yellow); Glucose Urine UA Negative (Negative); Ketones Urine Negative (Negative); Leukocyte Esterase Ur 3+ LEU/UL (Negative); Need Manual Microscopic Reviewed; Nitrate Urine Negative (Negative); Protein Urine 3+ mg/dL (Negative); RBC Urine 21-50 /hpf (0-2); Specific Grav Ur 1.014 (1.001-1.035); Squamous Epithelial Cell Urine None Seen /hpf (Few); WBC Urine >100 /hpf (0-3); pH Urine 7.5 (5.0-9.0)
[2024-04-02] MEDS: LIDOCAINE 1% PF INJ 5 ML VIAL INFILTRATE (11:05)
[2024-04-02 11:33] LABS: Glucose Point of Care 112 mg/dl (65-105)
[2024-04-02] MEDS: FUROSEMIDE INJ 40 MG/4 ML VIAL IV PUSH ×2 (11:43→18:00)
[2024-04-02] MEDS: LIDOCAINE 5% PATCH 1 PATCH TRANSDERM (12:06)
--- NOTE | 2024-04-02 13:44 | PM.IMPN ---
Progress Note: A&P Assessment and Plan (1) Osteomyelitis of lumbar spine: Code(s): M46.26 - Osteomyelitis of vertebra, lumbar region Status: Acute Assessment and Plan: Patient awaiting bed at tertiary facility Continue vancomycin DC Zosyn (2) Hypertension: Code(s): I10 - Essential (primary) hypertension Status: Acute Assessment and Plan: Continue home meds (3) Diastolic heart failure: Code(s): I50.30 - Unspecified diastolic (congestive) heart failure Status: Acute Assessment and Plan: Daily intake and output (4) CAD (coronary artery disease), autologous vein bypass graft: Code(s): I25.810 - Atherosclerosis of coronary artery bypass graft(s) without angina pectoris Status: Acute Assessment and Plan: Chest pain-free (5) Atrial fibrillation: Onset Date: 04/20/17 Code(s): I48.91 - Unspecified atrial fibrillation Status: Chronic Assessment and Plan: Rate controlled and anticoagulated (6) Type 2 diabetes mellitus with hyperglycemia, with long-term current use of insulin: Code(s): E11.65 - Type 2 diabetes mellitus with hyperglycemia; Z79.4 - intermediate (current) use of insulin Status: Acute Assessment and Plan: Continue insulin Holding sitagliptin (7) Physical deconditioning: Code(s): R53.81 - Other malaise Status: Acute Assessment and Plan: PT OT when clinically able to participate Plan MRSA bacteremia likely likely from Diskitis/osteomyelitis Blood culture positive MRSA and repeat blood culture no growth until today patient recently managed for MRSA endocarditis Cont Vanc Continue with transfer to [facility] Acute hypoxemic respiratory failure From pulm edema ECHO from October EF 60-65% Titrate oxygen as tolerated continue Lasix Pulm edema likely from Diastolic CHF ECHO from 10/21 ECHO 60-65% Continue Lasix 40 mg IV bid and adjust with clinical course Possible UTI Urine and blood culture on Cefepime Hyponatremia Na 123 ?CHF Urine Na, urine and serum osmolality pending Patient currently on Lasix adjust based on hyponatremia workup Nephrology consulted DVT prophylaxis on Dabigatran Awaiting transfer to [facility] and [facility] Subjective Date/time seen: 04/02/24 13:44 Interval history: Patient had Rapid response this morning for Hypothermia and resp failure Patient was placed on Luis hugger and placed on CPAP. Started on Cefepime and urine and blood culture sent Also CT Chest showed pulm edema and patient started on Lasix Review of Systems Review of Systems: Back pain, abdominal pain Exam Narrative: Laying in bed Const: General: comfortable, no acute distress, well developed, alert, awake, ill appearing chronically and obese Nutritional Appearance: obese Orientation/consciousness: patient oriented x3 Other: Generalized pallor HENMT: Head: normal to inspection, normocephalic and atraumatic Ears: hearing grossly normal bilaterally Face/Nose/Sinus: normal facial exam Face and sinus: normal facial exam Eyes: General: appearance normal, both eyes and all related structures Pupils: Equal, round and reactive pupils present EOM: EOMs intact bilaterally Neck: Neck: full ROM, no lymphadenopathy and no JVD Thyroid: thyroid normal Lymphatic: no lymphadenopathy noted Resp: Effort & Inspection: normal respiratory effort and able to speak in complete sentences Auscultation: clear to auscultation bilaterally Cardio: Jugular venous distension: no JVD Rate: regular rate Rhythm: regular rhythm Heart sounds: S1 normal heart sound present and S2 normal heart sound present GI: Inspection: Pannus present and obesity : General: Yes deferred Skin: Rashes: no rashes Wounds: no wounds Neuro: General: patient oriented x3, CN's II-XI intact bilaterally and Unable to assess gait Cranial nerves: Yes CN's II-XII intact bilaterally and Yes Equal, round and reactive pupils present Cognition (Neuro): normal cognition Speech: normal speech Gait exam (Neuro): Unable to assess gait Motor exam (neuro): 5/5 motor strength present throughout Extrem: General: normal to inspection, full ROM, no joint enlargement and no pedal edema Objective Data Vital Signs Vital Signs: Vital Signs - 24 hr 04/01/24 14:00 04/01/24 17:03 04/01/24 20:51 Temperature 97.6 F 97.5 F L Pulse Rate 59 L 65 100 Respiratory Rate 20 20 Blood Pressure 122/77 102/61 Pulse Oximetry 90 93 Oxygen Delivery Oxygen Flow Rate 04/02/24 00:03 04/02/24 06:50 04/02/24 07:00 Temperature 93.9 F L 93.8 F L Pulse Rate 74 66 Respiratory Rate 22 H Blood Pressure 100/46 L Pulse Oximetry 86 L Oxygen Delivery Oxygen Flow Rate 04/02/24 07:10 04/02/24 07:13 04/02/24 07:15 Temperature 93.8 F L Pulse Rate 59 L 60 Respiratory Rate 16 Blood Pressure 106/60 Pulse Oximetry 96 Oxygen Delivery Oxygen Flow Rate 04/02/24 07:30 04/02/24 07:41 04/02/24 07:45 Temperature 94.0 F L 93.9 F L 94.0 F L Pulse Rate 59 L Respiratory Rate 22 H Blood Pressure 100/56 L Pulse Oximetry 95 Oxygen Delivery Nasal Cannula Oxygen Flow Rate 3 04/02/24 08:00 04/02/24 08:00 04/02/24 08:30 Temperature 94.0 F L 94.4 F L Pulse Rate Respiratory Rate Blood Pressure Pulse Oximetry 92 Oxygen Delivery Nasal Cannula Oxygen Flow Rate 3 04/02/24 08:45 04/02/24 09:15 04/02/24 09:30 Temperature 94.8 F L 96 F L Pulse Rate 69 Respiratory Rate 29 H Blood Pressure 136/83 Pulse Oximetry 97 97 Oxygen Delivery Nasal Cannula Oxygen Flow Rate 3 04/02/24 10:00 04/02/24 10:30 04/02/24 11:00 Temperature 96.3 F L 97.2 F L 97.4 F L Pulse Rate 60 Respiratory Rate 21 H Blood Pressure 117/79 Pulse Oximetry 98 Oxygen Delivery Oxygen Flow Rate 04/02/24 11:00 04/02/24 11:30 04/02/24 12:00 Temperature 97.4 F L 97.8 F Pulse Rate 60 Respiratory Rate 28 H Blood Pressure 115/70 Pulse Oximetry 98 97 Oxygen Delivery Nasal Cannula Oxygen Flow Rate 3 04/02/24 12:00 04/02/24 12:00 04/02/24 12:07 Temperature 98.4 F 98.4 F 98.5 F Pulse Rate 60 Respiratory Rate 31 H Blood Pressure 104/67 Pulse Oximetry 97 Oxygen Delivery Oxygen Flow Rate Intake/Output Intake/Output: Intake & Output 03/30/24 03/31/24 04/01/24 04/02/24 23:59 23:59 23:59 23:59 Intake Total 970 1420 1580 550 Output Total 950 1050 800 Balance 20 370 780 550 Meds/Results Medications: Active Medications Generic Name Dose Route Start Last Admin Trade Name Freq PRN Reason Stop Dose Admin Acetaminophen 1,000 mg 03/16/24 02:11 04/01/24 17:05 Acetaminophen 500 Mg Tablet PO 1,000 mg Q8H PRN Administration fever or pain Aspirin 81 mg 03/16/24 08:00 04/02/24 09:31 Aspirin 81 Mg Chewable Tablet PO 81 mg DAILY@0800 SUNNY Administration Dabigatran 150 mg 03/16/24 09:00 04/02/24 09:31 Dabigatran Etexilate 150 Mg Capsule PO 150 mg Q12HR SUNNY Administration Dextrose 12.5 gm 03/13/24 21:39 Dextrose 50% 25 Gm/50 Ml Syringe IV PUSH PRN PRN Hypoglycemia Protocol Fenofibrate 145 mg 03/16/24 21:00 04/01/24 21:09 Fenofibrate Nanocrystallized 145 Mg Tablet PO 145 mg QHS SUNNY Administration Furosemide 40 mg 04/02/24 09:45 04/02/24 11:43 Furosemide Inj 40 Mg/4 Ml Vial IV PUSH 40 mg BID SUNNY Administration Glucagon 1 mg 03/13/24 21:39 Glucagon For Inj 1 Mg Vial IM PRN PRN Hypoglycemia Protocol Glucose 15 gm 03/13/24 21:39 Glucose Oral Gel 15 Gm Of Glucse In 37.5 Gm Tube PO PRN PRN Hypoglycemia Protocol Dextrose 1,000 mls @ 100 mls/hr 03/13/24 21:39 Dextrose 5% 1,000 Ml IVPB PRN PRN Hypoglycemia Protocol Vancomycin HCl 1,250 mg in 250 mls @ 166.667 mls/hr 03/24/24 07:00 04/02/24 07:02 Vancomycin 1,250 Mg/Ns 250 Ml IVPB 04/26/24 23:59 166 mls/hr Q24H SUNNY Administration Cefepime HCl 2 gm in 50 mls @ 100 mls/hr 04/02/24 08:00 04/02/24 09:29 Maxipime 2 Gm/Ns 50 Ml IVPB 100 mls/hr Q8H SUNNY Administration Insulin Aspart 4 - 8 units 03/21/24 08:00 04/02/24 13:42 Insulin Aspart (*Bkc) 100 Units/Ml SUB-Q Not Given [facility] Protocol Lactobacillus Acidophilus 1 tablet 03/16/24 09:00 04/02/24 09:31 Acidophilus/Bulgaricus Chewable Tablet PO 1 tablet BID SUNNY Administration Lidocaine 1 patch 03/26/24 16:10 04/02/24 12:06 Lidocaine 5% Patch TRANSDERM 1 patch DAILY SUNNY Administration Magnesium Hydroxide 30 ml 03/14/24 09:00 04/02/24 09:31 Magnesium Hydroxide Susp 30 Ml Udc PO Not Given QAM SUNNY Metoprolol Tartrate 6.25 mg 03/16/24 06:00 04/02/24 07:13 Metoprolol Tartrate 6.25 Mg Tablet PO Not Given Q6HR SUNNY Orphenadrine Citrate 100 mg 03/14/24 22:24 04/01/24 21:17 Orphenadrine Citrate 100 Mg Tablet.Er PO 100 mg Q12HR PRN Administration Muscle Spasm Polyethylene Glycol 17 gm 03/16/24 09:00 04/02/24 09:31 Polyethylene Glycol 3350 17 Gm Powd.Pack FEED TUBE Not Given BID SUNNY Rosuvastatin Calcium 10 mg 03/14/24 21:00 04/01/24 21:10 Rosuvastatin 10 Mg Tablet PO 10 mg BEDTIME SUNNY Administration Sodium Chloride 1 gm 03/24/24 09:00 04/02/24 09:31 Sodium Chloride 1 Gm Tablet PO 1 gm BID SUNNY Administration Sodium Chloride 10 ml 04/02/24 14:00 Central Line Flush IV PUSH Q8HR SUNNY Sodium Chloride 10 ml 04/02/24 13:32 Central Line Flush IV PUSH PRN PRN with TPN bag changes Sodium Chloride 20 ml 04/02/24 13:32 Central Line Flush IV PUSH PRN PRN after blood draws Radiology Results: ITS Impressions Abdomen/Pelvis CT 03/13/24 17:07 IMPRESSION: Large hiatal hernia. Findings within the liver and spleen suggesting prior granulomatous disease. Fecal stasis within the colon and distending the rectum suggesting fecal impaction. Findings at the level of the inferior endplate of L3 which demonstrate progression from previous examination, possibly representing discitis/osteomyelitis for which clinical and serologic correlation is needed. Head CT 03/13/24 19:07 Impression: No acute intracranial hemorrhage or suspicious mass effect. Chest CT 04/02/24 09:09 Impression: Moderate to large bilateral pleural effusions with extensive bibasilar atelectatic changes and possible minimal pulmonary edema. No definite CT evidence for pneumonia, but underlying pneumonia cannot be completely excluded. Correlate clinically. Progressing erosive changes about the T8-T9 disc space. This could reflect locally advanced severe degenerative spondylitic change, versus possibly renal failure associated spondyloarthropathy or infectious osteomyelitis/discitis. Clinical correlation required. Chest X-Ray 04/02/24 11:40 Impression: 1: Right-sided PICC line tip ascends superiorly into the internal jugular vein, distal aspect not visualized. Recommend repositioning. 2: Cardiomegaly with mild interstitial edema. Labs Labs: Laboratory Results - last 24 hr 04/01/24 04/01/24 04/02/24 16:30 20:54 06:58 WBC 13.1 H RBC 3.79 L Hgb 9.8 L Hct 34.1 L MCV 90.0 D MCH 25.9 L MCHC 28.7 L RDW 18.6 H Plt Count 402 H MPV 9.4 Puncture Site ABG pH ABG pCO2 ABG pO2 ABG PO2/FiO2 Ratio ABG HCO3 ABG O2 Saturation ABG O2 Content ABG Base Excess A-a Gradient Oxyhemoglobin Total Hemoglobin O2 Delivery Device O2 Liters/Min FiO2 Sodium Potassium Chloride Carbon Dioxide Anion Gap BUN Creatinine Estim Creat Clear Calc Estimated GFR Glucose POC Capillary Glucose 149 H 144 H Lactic Acid Calcium Magnesium Total Bilirubin AST ALT Alkaline Phosphatase Total Protein Albumin Urine Color Urine Appearance Urine pH Ur Specific [place] Urine Protein Urine Glucose (UA) Urine Ketones Ur Blood (Man) Urine Nitrate Urine Bilirubin Urine Urobilinogen Ur Leukocyte Esterase Add Ur Microanalysis Urine RBC Urine WBC Ur Squamous Epith Cells Urine Bacteria Urine Casts 04/02/24 04/02/24 04/02/24 07:44 08:15 08:25 WBC RBC Hgb Hct MCV MCH MCHC RDW Plt Count MPV Puncture Site Right radial ABG pH 7.312 L ABG pCO2 41.4 ABG pO2 134.9 H ABG PO2/FiO2 Ratio 4.22 ABG HCO3 20.5 L ABG O2 Saturation 98.5 ABG O2 Content 14.7 L ABG Base Excess -5.4 A-a Gradient 44.8 Oxyhemoglobin 97.9 Total Hemoglobin 10.5 L O2 Delivery Device Nasal cannula O2 Liters/Min 3.0 FiO2 32 Sodium 123 L Potassium 5.6 H Chloride 94 L Carbon Dioxide 21 L Anion Gap 8 BUN 22 H Creatinine 0.71 Estim Creat Clear Calc 89 Estimated GFR > 60 Glucose 138 H POC Capillary Glucose Lactic Acid 1.5 Calcium 8.4 Magnesium 2.4 H Total Bilirubin 0.6 AST 121 H ALT 40 Alkaline Phosphatase 115 Total Protein 7.0 Albumin 3.1 L Urine Color Urine Appearance Urine pH Ur Specific [place] Urine Protein Urine Glucose (UA) Urine Ketones Ur Blood (Man) Urine Nitrate Urine Bilirubin Urine Urobilinogen Ur Leukocyte Esterase Add Ur Microanalysis Urine RBC Urine WBC Ur Squamous Epith Cells Urine Bacteria Urine Casts 04/02/24 04/02/24 04/02/24 08:34 09:28 11:29 WBC RBC Hgb Hct MCV MCH MCHC RDW Plt Count MPV Puncture Site ABG pH ABG pCO2 ABG pO2 ABG PO2/FiO2 Ratio ABG HCO3 ABG O2 Saturation ABG O2 Content ABG Base Excess A-a Gradient Oxyhemoglobin Total Hemoglobin O2 Delivery Device O2 Liters/Min FiO2 Sodium Potassium Chloride Carbon Dioxide Anion Gap BUN Creatinine Estim Creat Clear Calc Estimated GFR Glucose POC Capillary Glucose 132 H 112 H Lactic Acid Calcium Magnesium Total Bilirubin AST ALT Alkaline Phosphatase Total Protein Albumin Urine Color Yellow Urine Appearance Turbid H Urine pH 7.5 Ur Specific [place] 1.014 Urine Protein 3+ H Urine Glucose (UA) Negative Urine Ketones Negative Ur Blood (Man) 2+ H Urine Nitrate Negative Urine Bilirubin Negative Urine Urobilinogen 1.0 Ur Leukocyte Esterase 3+ H Add Ur Microanalysis Reviewed Urine RBC 21-50 H Urine WBC >100 H Ur Squamous Epith Cells None seen Urine Bacteria 4+ Urine Casts 11-20
[2024-04-02] MEDS: CENTRAL LINE FLUSH 10 ML IV PUSH ×2 (14:14→21:27)
[2024-04-02 16:38] LABS: Glucose Point of Care 81 mg/dl (65-105)
[2024-04-02] MEDS: ROSUVASTATIN 10 MG TABLET PO (21:26)
[2024-04-02] MEDS: FENOFIBRATE NANOCRYSTALLIZED 145 MG TABLET PO (21:26)
[2024-04-02 21:35] LABS: Glucose Point of Care 91 mg/dl (65-105)
[2024-04-03] VITALS (17 sets, daily range): BP systolic 97–108; BP diastolic 47–62; PULSE 49–65; RESP 17–24; TEMP 36.3–37.3; O2SAT 90–99
--- NOTE | 2024-04-03 | ECHO_ITS ---
Patient Info Name: Diego Marquez Age: 74 years : 1950 Gender: Male Ht: 68 in Wt: 241 lbs BSA: 2.33 m2 HR: 60 bpm BP: 108 / 53 mmHg Technical Quality: Fair Exam Date: 04/03/2024 11:49 AM Exam Location: Echo Lab Patient Status: Inpatient Admit Date: 03/15/2024 Staff Ordering Physician: Trell Aguilar MD [employer] Hatcher[employer] Helper: Carlos Michel RDCS Attending Provider: Kye Quintanilla MD Exam Type: CA echo doppler color flow Study Info Indications - HX OF ENDOCARDITIS - BACTEREMIA Complete two-dimensional, color flow and Doppler transthoracic echocardiogram is performed. Summary 1. Complete two-dimensional, color flow and Doppler transthoracic echocardiogram is performed. 2. Left ventricular chamber dimension is normal. 3. Left ventricular systolic function is normal, estimated at 55-60%. 4. There is mild concentric increased left ventricular wall thickness. 5. The left ventricular diastolic function is abnormal. 6. E/e' 13 is mildly elevated. 7. Right ventricular systolic function is reduced based on abnormal TAPSE 1.1 cm. 8. Left atrial chamber dimension is moderately enlarged. 9. Right atrial chamber dimension is moderately enlarged. 10. There is moderate aortic valve sclerosis. 11. There is mild to moderate mitral valve regurgitation. 12. There is mild to moderate tricuspid valve regurgitation. 13. Moderate pulmonary hypertension, estimated pulmonary arterial systolic pressure is 56 mmHg. 14. There is mild pulmonic regurgitation. 15. Dilated inferior vena cava with >50% collapse upon inspiration consistent with elevated right atrial pressure, 10 mmHg. Left Ventricle E/e' 13 is mildly elevated. Left ventricular chamber dimension is normal. Left ventricular systolic function is normal, estimated at 55-60%. There is mild concentric increased left ventricular wall thickness. The left ventricular diastolic function is abnormal. Right Ventricle Right ventricular systolic function is reduced based on abnormal TAPSE 1.1 cm. Right ventricular chamber dimension is not well visualized. Left Atria Left atrial chamber dimension is moderately enlarged. Right Atria Right atrial chamber dimension is moderately enlarged. Aortic Valve The aortic valve is trileaflet. There is moderate aortic valve sclerosis. There is no aortic valve stenosis. There is no aortic valve regurgitation. No aortic valve vegetation visualized. Pulmonic Valve There is mild pulmonic regurgitation. Mitral Valve There is no mitral valve stenosis. There is mild to moderate mitral valve regurgitation. No mitral valve vegetation visualized. Tricuspid Valve There is mild to moderate tricuspid valve regurgitation. Moderate pulmonary hypertension, estimated pulmonary arterial systolic pressure is 56 mmHg. No tricuspid valve vegetation visualized. Pericardium/Pleural There is no pericardial effusion. Inferior Vena Cava Dilated inferior vena cava with >50% collapse upon inspiration consistent with elevated right atrial pressure, 10 mmHg. Aorta The aortic root size at the sinus of Valsalva is normal. Left Ventricular Outflow Tract Name Value Normal LVOT 2D LVOT Diameter 2.3 cm LVOT Doppler LVOT Peak Gradient 3 mmHg LVOT Mean Gradient 2 mmHg LVOT VTI 25 cm LVOT VTI/AV VTI Ratio 0.6 LVOT Stroke Volume 99 ml LVOT CO 4.9 l/min LVOT CI 2.1 l/min/m2 Pulmonic Valve Name Value Normal RVOT Doppler RVOT Peak Gradient 2 mmHg PV Doppler PV Peak Gradient 5 mmHg PV Regurgitation Doppler MO Peak End Diastolic Velocity 140 cm/s Mitral Valve Name Value Normal MV Doppler MV Peak Gradient 6 mmHg MV Mean Gradient 2 mmHg MV Decel Clinch 620 cm/s2 MV PHT 42 ms MV Area (PHT) 5.3 cm2 4.0-5.0 MV Area (Cont Eq VTI) 3.3 cm2 MV Diastolic Function MV E Peak Velocity 89 cm/s MV A Peak Velocity 39 cm/s MV E/A 2.3 MV Decel Time 144 ms MV Annular TDI MV E/e' (Septal) 16.0 <=8.0 MV E/e' (Lateral) 11.1 <=8.0 MV E/e' (Average) 13.6 Tricuspid Valve Name Value Normal TV Regurgitation Doppler TR Peak Velocity 341 cm/s TR Peak Gradient 46 mmHg Estimated PAP/RSVP RA Pressure 10 mmHg <=5 PA Systolic Pressure 56 mmHg <36 RV Systolic Pressure 56 mmHg <36 Aorta Name Value Normal Ascending Aorta Ao Root Diameter (MM) 3.3 cm Ao Root Diam Index (MM) 1.4 cm/m2 Aortic Valve Name Value Normal AV Doppler AV Peak Velocity 181 cm/s AV Peak Gradient 11 mmHg AV Mean Gradient 8 mmHg AV VTI 39 cm AV Area (Cont Eq VTI) 2.6 cm2 >=3.0 AV Area (Cont Eq Braden) 2.2 cm2 AV Regurgitation 2D LVOT Area 4.0 cm2 Ventricles Name Value Normal LV Dimensions 2D/MM IVS Diastolic Thickness (2D) 1.5 cm 0.6-1.0 LVID Diastole (2D) 4.9 cm 4.2-5.8 LVIW Diastolic Thickness (2D) 0.9 cm 0.6-1.0 LVID Systole (2D) 3.0 cm 2.5-4.0 LVOT Diameter 2.3 cm LV Mass (2D Cubed) 222.43 g 88.00-224.00 LV Mass Index (2D Cubed) 95 g/m2 49-115 Relative Wall Thickness (2D) 0.37 LV Fractional Shortening/Ejection Fraction 2D/MM LV Fractional Shortening (2D) 40 % 25-43 LV EF (2D Teicholz) 70 % 52-72 LV Diastolic Volume (4C MOD) 71 ml LV EF (4C MOD) 53 % LV Diastolic Volume (2C MOD) 83 ml LV EF (2C MOD) 49 % LV Diastolic Volume (BP MOD) 79 ml 62-150 LV Diastolic Volume Index (BP MOD) 34 ml/m2 34-74 LV Systolic Volume (BP MOD) 36 ml 21-61 LV Systolic Volume Index (BP MOD) 16 ml/m2 11-31 LV EF (BP MOD) 54 % 52-72 LV Diastolic Length (4C) 7.2 cm LV Systolic Length (4C) 6.2 cm LV Stroke Volume (4C MOD) 38 ml Atria Name Value Normal LA Dimensions LA Dimension (MM) 4.9 cm 3.0-4.1 LA Volume (4C A-L) 84 ml LA Volume (BP A-L) 89 ml RA Dimensions RA Area (4C) 24.4 cm2 <=18.0 Report Signatures
[2024-04-03] MEDS: CEFEPIME 2 GM/NS 50 ML 2 GM/50 ML BAG IVPB ×4 (00:39→23:11)
[2024-04-03 05:34] LABS: Basophils Absolute Auto 0.1 K/mm3 (0.0-0.1); Basophils Percent Auto 0.7 % (0.2-1.2); Eosinophils Absolute Auto 0.1 K/mm3 (0-0.3); Eosinophils Percent Auto 0.8 % (0-4.4); Hematocrit 26.3 % (42.0-52.0); Hemoglobin 7.9 g/dL (14.0-18.0); Immature Granulocyte Absolute 0.43 K/mm3 (0.00-0.031); Immature Granulocyte Percent A 4.3 % (0-0.5); Lymphocytes Absolute Auto 1.55 K/mm3 (0.9-3.2); Lymphocytes Percent Auto 15.3 % (18.3-44.2); Mean Corpuscular Hemoglobin 25.6 pg (26-34); Mean Corpuscular Volume 85.4 fl (80-100); Mean Platelet Volume 9.1 fl (7.4-10.4); Monocytes Absolute Auto 1.1 K/mm3 (0.1-0.6); Monocytes Percent Auto 11.3 % (2.6-8.5); Neutrophils Absolute Auto 6.8 K/mm3 (1.3-6.7); Neutrophils Percent Auto 67.6 % (45.5-73.1); Nucleated Red Blood Cells Perc 1.2 % (0.0-0.2); Platelet Count Result 326 k/mm3 (150-375); Red Blood Count 3.08 M/mm3 (4.6-6.20); Red Cell Distribution Width 18.5 % (11.5-14.5); White Blood Count 10.1 K/mm3 (4.5-10.0)
[2024-04-03 05:48] LABS: Alanine Aminotransferase 62 U/L (6-50); Albumin Level 2.7 g/dL (3.5-5.1); Alkaline Phosphatase 112 U/L (38-126); Anion Gap 3 mmol/L (4-12); Aspartate Amino Transferase 162 U/L (17-59); Bilirubin,Total 0.4 mg/dL (0.2-1.3); Blood Urea Nitrogen 26 mg/dL (9-20); Calcium 8.1 mg/dL (8.4-10.2); Carbon Dioxide 28 mmol/L (22-30); Chloride 92 mmol/L (98-107); Estimated CRCL calculation 77 ml/min; Estimated Glomerular Filt Rate > 60; Glucose 115 mg/dL (65-110); Magnesium 2.2 mg/dL (1.6-2.3); Sodium 123 mmol/L (137-145)
[2024-04-03] MEDS: METOPROLOL TARTRATE 6.25 MG TABLET PO ×4 (06:24→23:14)
[2024-04-03] MEDS: CENTRAL LINE FLUSH 10 ML IV PUSH ×3 (06:25→21:00)
[2024-04-03 07:25] LABS: Creatinine Urine 74.3 mg/dL; Total Protein Urine Random 107 mg/dL; Urea Random Urine 485 MG/DL
[2024-04-03 07:36] LABS: Sodium Urine Random 15 meq/L
[2024-04-03] MEDS: VANCOMYCIN 1,250 MG/NS 250 ML 1,250 MG/250 ML BAG 166 MG IVPB (07:58)
--- NOTE | 2024-04-03 08:51 | P.PN_ITS ---
Subjective Date/time seen: 04/03/24 08:51 Interval history: Called to see patient to eval for thoracentesis. Review of Systems Review of Systems: ROS unobtainable: Yes other Objective Data Vital Signs Vital Signs: Vital Signs - 24 hr 04/02/24 09:15 04/02/24 09:30 04/02/24 10:00 Temperature 35.5 C L 35.7 C L Pulse Rate 69 60 Respiratory Rate 29 H 21 H Blood Pressure 136/83 117/79 Pulse Oximetry 97 97 98 Oxygen Delivery Nasal Cannula Oxygen Flow Rate 3 Fraction of Inspired Oxygen 04/02/24 10:30 04/02/24 11:00 04/02/24 11:00 Temperature 36.2 C L 36.3 C L 36.3 C L Pulse Rate 60 Respiratory Rate 28 H Blood Pressure 115/70 Pulse Oximetry 98 Oxygen Delivery Oxygen Flow Rate Fraction of Inspired Oxygen 04/02/24 11:30 04/02/24 12:00 04/02/24 12:00 Temperature 36.6 C 36.9 C Pulse Rate Respiratory Rate Blood Pressure Pulse Oximetry 97 Oxygen Delivery Nasal Cannula Oxygen Flow Rate 3 Fraction of Inspired Oxygen 04/02/24 12:00 04/02/24 12:01 04/02/24 12:07 Temperature 36.9 C 36.9 C Pulse Rate 60 60 Respiratory Rate 31 H Blood Pressure 104/67 Pulse Oximetry 97 Oxygen Delivery Oxygen Flow Rate Fraction of Inspired Oxygen 04/02/24 13:00 04/02/24 13:30 04/02/24 14:00 Temperature 37.3 C 37.3 C 37.2 C Pulse Rate 60 Respiratory Rate 32 H Blood Pressure 108/57 L Pulse Oximetry 97 Oxygen Delivery Oxygen Flow Rate Fraction of Inspired Oxygen 04/02/24 14:00 04/02/24 15:00 04/02/24 16:00 Temperature 37.2 C 37.3 C 37.3 C Pulse Rate 59 L 60 60 Respiratory Rate 25 H 21 H 27 H Blood Pressure 108/60 106/56 L 94/52 L Pulse Oximetry 99 98 99 Oxygen Delivery Oxygen Flow Rate Fraction of Inspired Oxygen 04/02/24 16:00 04/02/24 17:00 04/02/24 17:55 Temperature 37.2 C 37.3 C Pulse Rate 58 L 60 Respiratory Rate 23 H 15 Blood Pressure 99/82 L 99/82 L Pulse Oximetry 99 98 100 Oxygen Delivery Nasal Cannula Oxygen Flow Rate 3 Fraction of Inspired Oxygen 04/02/24 18:00 04/02/24 20:00 04/02/24 20:00 Temperature 37.3 C Pulse Rate 60 59 L Respiratory Rate 23 H Blood Pressure 114/52 L Pulse Oximetry 96 96 Oxygen Delivery Nasal Cannula Oxygen Flow Rate 4 Fraction of Inspired Oxygen 04/02/24 20:00 04/02/24 22:00 04/02/24 23:04 Temperature Pulse Rate 58 L 58 L Respiratory Rate Blood Pressure Pulse Oximetry 94 Oxygen Delivery Nasal Cannula Oxygen Flow Rate 4 Fraction of Inspired Oxygen 04/02/24 23:12 04/03/24 00:00 04/03/24 00:00 Temperature 37.2 C Pulse Rate 83 55 L 58 L Respiratory Rate 23 H 19 Blood Pressure 99/50 L Pulse Oximetry 95 96 Oxygen Delivery Autopap Oxygen Flow Rate Fraction of Inspired Oxygen 04/03/24 00:39 04/03/24 02:00 04/03/24 04:00 Temperature Pulse Rate 49 L 56 L Respiratory Rate Blood Pressure Pulse Oximetry 95 Oxygen Delivery Nasal Cannula Oxygen Flow Rate 4 Fraction of Inspired Oxygen 04/03/24 04:00 04/03/24 04:00 04/03/24 06:00 Temperature 37.3 C Pulse Rate 58 L 58 L 65 Respiratory Rate 17 Blood Pressure 98/57 L Pulse Oximetry 96 Oxygen Delivery Oxygen Flow Rate Fraction of Inspired Oxygen 04/03/24 06:24 04/03/24 08:00 04/03/24 08:00 Temperature Pulse Rate 60 60 60 Respiratory Rate 24 H Blood Pressure Pulse Oximetry 96 Oxygen Delivery Nasal Cannula Oxygen Flow Rate 4 Fraction of Inspired Oxygen 04/03/24 08:00 Temperature 37.1 C Pulse Rate 60 Respiratory Rate 24 H Blood Pressure 108/53 L Pulse Oximetry 96 Oxygen Delivery Oxygen Flow Rate Fraction of Inspired Oxygen Intake/Output Intake/Output: Intake & Output 03/31/24 04/01/24 04/02/24 04/03/24 23:59 23:59 23:59 23:59 Intake Total 1420 1580 1100 550 Output Total 1050 800 550 500 Balance 370 780 550 50 Meds/Results Medications: Active Medications Generic Name Dose Route Start Last Admin Trade Name Freq PRN Reason Stop Dose Admin Acetaminophen 1,000 mg 03/16/24 02:11 04/01/24 17:05 Acetaminophen 500 Mg Tablet PO 1,000 mg Q8H PRN Administration fever or pain Aspirin 81 mg 03/16/24 08:00 04/02/24 09:31 Aspirin 81 Mg Chewable Tablet PO 81 mg DAILY@0800 SUNNY Administration Dabigatran 150 mg 03/16/24 09:00 04/02/24 21:26 Dabigatran Etexilate 150 Mg Capsule PO 150 mg Q12HR SUNNY Administration Dextrose 12.5 gm 03/13/24 21:39 Dextrose 50% 25 Gm/50 Ml Syringe IV PUSH PRN PRN Hypoglycemia Protocol Fenofibrate 145 mg 03/16/24 21:00 04/02/24 21:26 Fenofibrate Nanocrystallized 145 Mg Tablet PO 145 mg QHS SUNNY Administration Furosemide 40 mg 04/02/24 09:45 04/02/24 18:00 Furosemide Inj 40 Mg/4 Ml Vial IV PUSH 40 mg BID SUNNY Administration Glucagon 1 mg 03/13/24 21:39 Glucagon For Inj 1 Mg Vial IM PRN PRN Hypoglycemia Protocol Glucose 15 gm 03/13/24 21:39 Glucose Oral Gel 15 Gm Of Glucse In 37.5 Gm Tube PO PRN PRN Hypoglycemia Protocol Dextrose 1,000 mls @ 100 mls/hr 03/13/24 21:39 Dextrose 5% 1,000 Ml IVPB PRN PRN Hypoglycemia Protocol Vancomycin HCl 1,250 mg in 250 mls @ 166.667 mls/hr 03/24/24 07:00 04/03/24 07:58 Vancomycin 1,250 Mg/Ns 250 Ml IVPB 04/26/24 23:59 166 mls/hr Q24H SUNNY Administration Cefepime HCl 2 gm in 50 mls @ 100 mls/hr 04/02/24 08:00 04/03/24 00:39 Maxipime 2 Gm/Ns 50 Ml IVPB 100 mls/hr Q8H SUNNY Administration Insulin Aspart 4 - 8 units 03/21/24 08:00 04/03/24 07:23 Insulin Aspart (*Bkc) 100 Units/Ml SUB-Q Not Given [facility] SUNNY Protocol Lactobacillus Acidophilus 1 tablet 03/16/24 09:00 04/02/24 18:00 Acidophilus/Bulgaricus Chewable Tablet PO 1 tablet BID SUNNY Administration Lidocaine 1 patch 03/26/24 16:10 04/02/24 12:06 Lidocaine 5% Patch TRANSDERM 1 patch DAILY SUNNY Administration Magnesium Hydroxide 30 ml 03/14/24 09:00 04/02/24 09:31 Magnesium Hydroxide Susp 30 Ml Udc PO Not Given QAM SUNNY Metoprolol Tartrate 6.25 mg 03/16/24 06:00 04/03/24 06:24 Metoprolol Tartrate 6.25 Mg Tablet PO 6.25 mg Q6HR SUNNY Administration Orphenadrine Citrate 100 mg 03/14/24 22:24 04/01/24 21:17 Orphenadrine Citrate 100 Mg Tablet.Er PO 100 mg Q12HR PRN Administration Muscle Spasm Polyethylene Glycol 17 gm 03/16/24 09:00 04/02/24 18:41 Polyethylene Glycol 3350 17 Gm Powd.Pack FEED TUBE Not Given BID [facility] Rosuvastatin Calcium 10 mg 03/14/24 21:00 04/02/24 21:26 Rosuvastatin 10 Mg Tablet PO 10 mg BEDTIME SUNNY Administration Sodium Chloride 1 gm 03/24/24 09:00 04/02/24 18:00 Sodium Chloride 1 Gm Tablet PO 1 gm BID SUNNY Administration Sodium Chloride 10 ml 04/02/24 14:00 04/03/24 06:25 Central Line Flush IV PUSH 10 ml Q8HR SUNNY Administration Sodium Chloride 10 ml 04/02/24 13:32 Central Line Flush IV PUSH PRN PRN with TPN bag changes Sodium Chloride 20 ml 04/02/24 13:32 Central Line Flush IV PUSH PRN PRN after blood draws Radiology Results: ITS Impressions Abdomen/Pelvis CT 03/13/24 17:07 IMPRESSION: Large hiatal hernia. Findings within the liver and spleen suggesting prior granulomatous disease. Fecal stasis within the colon and distending the rectum suggesting fecal impaction. Findings at the level of the inferior endplate of L3 which demonstrate progression from previous examination, possibly representing discitis/osteomyelitis for which clinical and serologic correlation is needed. Head CT 03/13/24 19:07 Impression: No acute intracranial hemorrhage or suspicious mass effect. Chest CT 04/02/24 09:09 Impression: Moderate to large bilateral pleural effusions with extensive bibasilar atelectatic changes and possible minimal pulmonary edema. No definite CT evidence for pneumonia, but underlying pneumonia cannot be completely excluded. Correlate clinically. Progressing erosive changes about the T8-T9 disc space. This could reflect locally advanced severe degenerative spondylitic change, versus possibly renal failure associated spondyloarthropathy or infectious osteomyelitis/discitis. Clinical correlation required. Chest X-Ray 04/02/24 11:40 Impression: 1: Right-sided PICC line tip ascends superiorly into the internal jugular vein, distal aspect not visualized. Recommend repositioning. 2: Cardiomegaly with mild interstitial edema. Labs Labs: Laboratory Results - last 24 hr 04/02/24 04/02/24 04/02/24 09:28 11:29 16:33 WBC RBC Hgb Hct MCV MCH MCHC RDW Plt Count MPV Immature Gran % (Auto) Neut % (Auto) Lymph % (Auto) Murray % (Auto) Eos % (Auto) Baso % (Auto) Lymph # (Auto) Murray # (Auto) Eos # (Auto) Baso # (Auto) Abs Immat Gran (auto) Absolute Neuts (auto) Absolute Nucleated RBC Nucleated RBC % Sodium Potassium Chloride Carbon Dioxide Anion Gap BUN Creatinine Estim Creat Clear Calc Estimated GFR Glucose POC Capillary Glucose 112 H 81 Calcium Magnesium Total Bilirubin AST ALT Alkaline Phosphatase Total Protein Albumin Urine Color Yellow Urine Appearance Turbid H Urine pH 7.5 Ur Specific [place] 1.014 Urine Protein 3+ H Urine Glucose (UA) Negative Urine Ketones Negative Ur Blood (Man) 2+ H Urine Nitrate Negative Urine Bilirubin Negative Urine Urobilinogen 1.0 Ur Leukocyte Esterase 3+ H Add Ur Microanalysis Reviewed Urine RBC 21-50 H Urine WBC >100 H Ur Squamous Epith Cells None seen Urine Bacteria 4+ Urine Casts 11-20 U Random Total Protein Ur Random Sodium Ur Random Urea Urine Creatinine 04/02/24 04/03/24 04/03/24 21:30 05:15 06:51 WBC 10.1 H RBC 3.08 L Hgb 7.9 L Hct 26.3 L MCV 85.4 D MCH 25.6 L MCHC 30.0 L RDW 18.5 H Plt Count 326 MPV 9.1 Immature Gran % (Auto) 4.3 H Neut % (Auto) 67.6 Lymph % (Auto) 15.3 L Murray % (Auto) 11.3 H Eos % (Auto) 0.8 Baso % (Auto) 0.7 Lymph # (Auto) 1.55 Murray # (Auto) 1.1 H Eos # (Auto) 0.1 Baso # (Auto) 0.1 Abs Immat Gran (auto) 0.43 H Absolute Neuts (auto) 6.8 H Absolute Nucleated RBC 0.120 H Nucleated RBC % 1.2 H Sodium 123 L Potassium 5.0 Chloride 92 L Carbon Dioxide 28 Anion Gap 3 L BUN 26 H Creatinine 0.89 Estim Creat Clear Calc 77 Estimated GFR > 60 Glucose 115 H POC Capillary Glucose 91 Calcium 8.1 L Magnesium 2.2 Total Bilirubin 0.4 AST 162 H ALT 62 H Alkaline Phosphatase 112 Total Protein 6.0 L Albumin 2.7 L Urine Color Urine Appearance Urine pH Ur Specific [place] Urine Protein Urine Glucose (UA) Urine Ketones Ur Blood (Man) Urine Nitrate Urine Bilirubin Urine Urobilinogen Ur Leukocyte Esterase Add Ur Microanalysis Urine RBC Urine WBC Ur Squamous Epith Cells Urine Bacteria Urine Casts U Random Total Protein 107 Ur Random Sodium 15 Ur Random Urea 485 Urine Creatinine 74.3
[2024-04-03] MEDS: ASPIRIN 81 MG CHEWABLE TABLET PO (09:38)
[2024-04-03] MEDS: SODIUM CHLORIDE 1 GM TABLET PO ×2 (09:39→17:39)
[2024-04-03] MEDS: ACIDOPHILUS/BULGARICUS CHEWABLE TABLET 1 TABLET PO ×2 (09:39→17:38)
[2024-04-03] MEDS: MAGNESIUM HYDROXIDE SUSP 30 ML UDC PO (09:39)
[2024-04-03] MEDS: LIDOCAINE 5% PATCH 1 PATCH TRANSDERM (09:40)
[2024-04-03] MEDS: FUROSEMIDE INJ 40 MG/4 ML VIAL IV PUSH ×2 (09:48→17:40)
--- NOTE | 2024-04-03 09:56 | P.CONNP_ITS ---
Assessment and Plan Assessment and plan (1) Hyponatremia: Code(s): E87.1 - Hypo-osmolality and hyponatremia Status: Acute Assessment and Plan: * acute on chronic * present as far back as December 2023 if not longer * sodium usually runs around 126 - 136mmol/L * evidence would suggest due to volume overload given clinical picture * for completeness, check TSH, cortisol, SPEP, and UPEP along with urine electrolytes * agree with diuresis * already started on salt tabs * would try to coordinate salt tab administration with IV lasix to promote free water excretion * add fluid restriction * follow trend of repeat sodium levels (2) Osteomyelitis of lumbar spine: Code(s): M46.26 - Osteomyelitis of vertebra, lumbar region Status: Acute Assessment and Plan: * blood culutres with MRSA * repeat blood culture no growth until today * patient recently managed for MRSA endocarditis * on IV vancomycin * awaiting transfer to [facility] * repeat echo showing no valvular vegetation * pain control (3) Bacteremia: Code(s): R78.81 - Bacteremia Status: Acute Assessment and Plan: * blood culture with MRSA * repeat echocardiogram with no valvular vegetation * presumed source = #2 * remains on IV vancomycin (4) Acute hypoxic on chronic hypercapnic respiratory failure: Code(s): J96.01 - Acute respiratory failure with hypoxia; J96.12 - Chronic respiratory failure with hypercapnia Status: Acute Assessment and Plan: * secondary to volume overload/pulmonary edema * slow improvement with IV diuresis * recent CT chest showing moderate to large bilateral pleural effusions * plan for thoracentesis * supplemental oxygen p.r.n. * also on fluid restriction (but not really eating/drinking much) (5) Acute exacerbation of CHF (congestive heart failure): Code(s): I50.9 - Heart failure, unspecified Status: Acute Assessment and Plan: * felt to be acute on chronic diastolic heart failure * CT chest showing bilateral moderate to large pleural effusions * Cardiology following * continue diuresis as tolerated * follow daily weights, I/Os, and respiratory status (6) Hypertension: Code(s): I10 - Essential (primary) hypertension Status: Acute Assessment and Plan: * follow trend of hemodynamics * BP medications with parameters given soft BP at this time * follow trend of hemodynamics (7) Atrial fibrillation: Onset Date: 04/20/17 Code(s): I48.91 - Unspecified atrial fibrillation Status: Chronic Assessment and Plan: * rate control strategy * on anticoagulation (8) Type 2 diabetes mellitus with hyperglycemia, with long-term current use of insulin: Code(s): E11.65 - Type 2 diabetes mellitus with hyperglycemia; 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 Thank you for allowing me to participate in the care of this patient. L History of Present Illness Reason for Consult Consult date: 04/03/24 Reason for consult: hyponatremia (acute on chronic) Chief Complaint Chief complaint: Diskitis/Osteomyelitis/Bacteremia History of Present Illness Narrative: The patient is a 74-year-old male extensive past medical history as outlined below at and will initially presented to [facility] from his assisted facility due to generalized weakness and fatigue. The patient states that he was working with physical and occupational therapy the day of admission and his legs start to buckle and he felt like they were giving out on him. his history is complicated by a recent bout infective endocarditis at the end of last year which he completed an extensive course antibiotics. He feels he has been recovering reasonably well from that acute illness. Ca no history with regard to fevers, chills, nausea, vomiting, chest pain, shortness of breath, diaphoresis dizziness, lightheadedness, palpitations. However, given his complex medical history and his acute complaints, he was sent to the emergency room for further assessment. Subsequent workup and evaluation demonstrated elevated white blood cell count of 18.5, hemoglobin 11.3, and platelet count 500 with a chemistry that showed a slightly elevated BUN of 38, creatinine 1.09, and no other critical electrolyte abnormalities. His urinalysis without evidence of infection and his chest x-ray showed some cardiomegaly and mild interstitial edema. CT scan of his abdomen pelvis showed a large hiatal hernia, prior granulomatous disease, fecal stasis within the colon and potential fecal impaction with a suspicion for an L3 endplate infection consistent consistent with diskitis versus osteomyelitis. Neurosurgery was consulted recommended transfer the patient back to [facility] given that all of his medical care has been received there And since Infectious Disease consultation is unavailable here at [facility]. After appropriate cultures were obtained, he was started on broad-spectrum IV antibiotics and the transfer process to [facility] was initiated. Unfortunately, he was in the emergency room for almost 48 hours with no bed available at [facility]. By that time, his blood cultures came back positive for Gram- positive cocci and he was maintained on antibiotic therapy and subsequently admitted to the hospital for further evaluation therapy with the eventual plan to still transfer him to [facility] for further intervention. Since admission, he has developed issues and problems with fluid overload, congestive heart failure, bilateral pleural effusions, and hyponatremia. He is currently on supplemental oxygen and receiving IV diuretics in attempt to optimize his clinical status. Renal consultation was requested due to his acute on chronic hyponatremia. From review his records, it would seem that his sodium level has been running on the lower side of normal since December of 2023 if not longer. Since that time, his sodium level has been fluctuating anywhere from 126-136 millimoles per L and seems to correlate with his acute hospitalizations and need for medication adjustment in effort to optimize his fluid/volume status in the context of his chronic diastolic heart failure. As far as I can tell, despite his low sodium levels, he has never been symptomatic from these electrolyte issues both on previous hospitalizations as well as his current one. Currently, the time my evaluation, he appears to be in no acute distress. Review of Systems 2 Review of Systems: As per HPI. [facility] Past Medical History Medical History (Updated 04/07/24 @ 05:14 by Danny Drake MD) Anticoagulant long-term use Candidiasis of other urogenital sites Anemia Diabetic peripheral neuropathy Rhabdomyolysis Urge urinary incontinence Chronic venous stasis dermatitis of both lower extremities Sick sinus syndrome (04/18/17) SAKSHI on CPAP (03/2019) CPAP of 7 Mixed hyperlipidemia (04/20/17) Essential hypertension Atrial fibrillation (04/20/17) On chronic anticoagulation with warfarin Hemochromatosis However patient's iron studies demonstrate a low iron level (12/2020), normal transferrin (in 2019) and normal hemoglobin and now actually has what appears bandemia chronic disease Obesity (BMI 35.0-39.9 without comorbidity) Pacemaker CAD (coronary artery disease), autologous vein bypass graft Arthritis Diabetes mellitus Erectile dysfunction Peripheral artery disease Surgical History Surgical History Pacemaker (04/2015) Single-chamber MRI compatible pacemaker Hx of CABG (~2004) Four-vessel CABG H/O right heart catheterization Family History Family History Father Acute myocardial infarction Son Family history of obesity Mother Uterine cancer Social History Social History Social History: He has been since 1997 and he he lives in his own home. He ambulates with a walker. His son comes and checks on him daily, and will be his surrogate Diego pan He is retired from the [employer]. He wishes to be a full code at this time. Smoking packs per day: 2.5 Smoking cigarettes per day: 50.0 Years smoked: 50 Smoking pack-years: 125.00 Smoking status: Former smoker Tobacco type: cigars Smokeless tobacco user: chewing tobacco Second hand tobacco smoke exposure: Yes Alcohol intake: never Substance use: never Substance use type: marijuana Do You Feel Safe in your Home?: Yes Lack of Transportation: No Lack of Food: Never True Current Housing: I Have Housing Concerned About Future Housing: No Difficulty Paying Gas/Electric Bills: No Difficulty Paying for Meds: No Currently Unemployed: No Education: High School Diploma/GED Difficulty w/ Childcare or Family Care: No Living arrangements: alone Occupation/Education: retired 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 Gender identity (if verbalized by the patient): Male Sexual Orientation (if Verbalized by the Patient): Straight or Heterosexual Spiritual care concerns: No Agree to blood products: Yes Meds Home Medications and Allergies Home Medications ?Medication ?Instructions ?Recorded ?Confirmed ?Type multivitamin with minerals 1 tablet PO DAILY 12/20/23 03/15/24 History nystatin 100,000 unit/mL oral 100,000 unit PO QID 12/20/23 03/15/24 History suspension insulin aspart U-100 100 unit/mL 4 - 8 unit subcut ACHS 12/28/23 03/15/24 Rx subcutaneous solution (Novolog U-100 Insulin aspart) Lactobacillus acidophilus 1 cap PO BID 02/15/24 03/15/24 History aspirin 81 mg chewable tablet 81 mg PO DAILY 02/15/24 03/15/24 History (Lynnette Chewable Low Dose Aspirin) dabigatran etexilate 150 mg capsule 150 mg PO BID 02/15/24 03/15/24 History fenofibrate nanocrystallized 145 mg PO HS 02/15/24 03/15/24 History furosemide 40 mg tablet 40 mg PO DAILY 02/15/24 03/15/24 History metoprolol tartrate 25 mg tablet 6.25 mg PO Q6H 02/15/24 03/15/24 History pantoprazole 40 mg granules 40 mg feeding tube DAILY 02/15/24 03/15/24 History delayed-release for susp in packet polyethylene glycol 3350 17 17 g feeding tube BID 02/15/24 03/15/24 History gram/dose oral powder potassium chloride 20 mEq oral 20 meq PO DAILY 02/15/24 03/15/24 History packet (Klor-Con) rosuvastatin 10 mg tablet 10 mg feeding tube HS 02/15/24 03/15/24 History saxagliptin 5 mg tablet 5 mg PO DAILY 02/15/24 03/15/24 History spironolactone 25 mg tablet 25 mg PO DAILY 02/15/24 03/15/24 History vancomycin 1.25 gram intravenous 1.25 g IV Q24H 02/15/24 03/19/24 History solution acetaminophen 500 mg capsule 1,000 mg PO Q8H PRN fever or pain 03/15/24 03/15/24 History insulin aspart U-100 100 unit/mL 12 unit subcut ACHS 03/21/24 03/21/24 History subcutaneous solution (Novolog U-100 Insulin aspart) Allergies Allergy/AdvReac Type Severity Reaction Status Date / Time morphine AdvReac Agitated Verified 02/15/24 07:22 Vital Signs Vital Signs Temp Pulse Resp BP Pulse Ox O2 Del Method O2 Flow Rate 04/03/24 08:00 98.7 F 60 24 H 108/53 L 96 04/03/24 08:00 60 04/03/24 08:00 60 24 H 96 Nasal Cannula 4 04/03/24 06:24 60 04/03/24 06:00 65 04/03/24 04:00 99.1 F 58 L 17 98/57 L 96 04/03/24 04:00 58 L 04/03/24 04:00 95 Nasal Cannula 4 04/03/24 02:00 56 L 04/03/24 00:39 49 L 04/03/24 00:00 58 L 04/03/24 00:00 98.9 F 55 L 19 99/50 L 96 04/02/24 23:12 83 23 H 95 Autopap 04/02/24 23:04 94 Nasal Cannula 4 04/02/24 22:00 58 L 04/02/24 20:00 58 L 04/02/24 20:00 96 Nasal Cannula 4 04/02/24 20:00 99.1 F 59 L 23 H 114/52 L 96 04/02/24 18:00 60 04/02/24 17:55 99.1 F 60 15 99/82 L 100 04/02/24 17:00 99.0 F 58 L 23 H 99/82 L 98 04/02/24 16:00 99 Nasal Cannula 3 04/02/24 16:00 99.1 F 60 27 H 94/52 L 99 04/02/24 15:00 99.1 F 60 21 H 106/56 L 98 04/02/24 14:00 99.0 F 59 L 25 H 108/60 99 04/02/24 14:00 99.0 F 04/02/24 13:30 99.1 F 04/02/24 13:00 99.1 F 60 32 H 108/57 L 97 Results Lab Results 04/07/24 04:57 04/06/24 17:22 Lab results: Most recent lab results ABG pH 7.312 (7.350-7.450) L 04/02/24 07:44 ABG pCO2 41.4 mmHg (35.0-45.0) 04/02/24 07:44 ABG pO2 134.9 mmHg (80.0-100.0) H 04/02/24 07:44 ABG HCO3 20.5 mEq/l (22.0-26.0) L 04/02/24 07:44 ABG O2 Saturation 98.5 % (95.0-100.0) 04/02/24 07:44 Calcium 8.1 mg/dL (8.4-10.2) L 04/03/24 05:15 Magnesium 2.2 mg/dL (1.6-2.3) 04/03/24 05:15 Urine Creatinine 74.3 mg/dL 04/03/24 06:51
--- NOTE | 2024-04-03 09:58 | PM.IMPN ---
Progress Note: A&P Assessment and Plan (1) Osteomyelitis of lumbar spine: Code(s): M46.26 - Osteomyelitis of vertebra, lumbar region Status: Acute (2) Hypertension: Code(s): I10 - Essential (primary) hypertension Status: Acute (3) Diastolic heart failure: Code(s): I50.30 - Unspecified diastolic (congestive) heart failure Status: Acute (4) CAD (coronary artery disease), autologous vein bypass graft: Code(s): I25.810 - Atherosclerosis of coronary artery bypass graft(s) without angina pectoris Status: Acute (5) Atrial fibrillation: Onset Date: 04/20/17 Code(s): I48.91 - Unspecified atrial fibrillation Status: Chronic Assessment and Plan: Currently paced rhythm and anticoagulated (6) Type 2 diabetes mellitus with hyperglycemia, with long-term current use of insulin: Code(s): E11.65 - Type 2 diabetes mellitus with hyperglycemia; Z79.4 - care home (current) use of insulin Status: Acute Assessment and Plan: Continue insulin Holding sitagliptin (7) Physical deconditioning: Code(s): R53.81 - Other malaise Status: Acute Plan MRSA bacteremia With associated Diskitis/osteomyelitis Blood culture positive MRSA and repeat blood culture no growth until today patient recently managed for MRSA endocarditis Cont Vanc Patient is waiting for a bed assignment for transfer to [facility] Repeat echo Acute hypoxemic respiratory failure From pulm edema and pleural few ECHO from October EF 60-65% Titrate oxygen as tolerated currently on 4 L continue Lasix Will request Radiology for ultrasound-guided thoracentesis starting with right side Will have to hold anticoagulation for 24 hours as per request from intervention Radiology Pulm edema likely from Diastolic CHF ECHO from 10/21 ECHO 60-65% Continue Lasix 40 mg IV bid and adjust with clinical course Possible UTI Urine and blood culture negative now Conj Cefepime Hyponatremia Na 123 secondary to congestive heart fail Patient currently on Lasix adjust based on hyponatremia workup Nephrology consulted Continue aspirin fenofibrate, low-dose metoprolol, stat DVT prophylaxis on Dabigatran Awaiting transfer to [facility] and [facility] PT OT consult Incentive spirometer Patient is focal Subjective Date/time seen: 04/03/24 Overnight events reviewed. Afebrile On 4 L nasal cannula Not on any infusions He states he feels fine. He overall he feels weak and tired. He does admit to having some shortness of breath especially when he exerts. He has what dry weak cough He denies any fever chest pain abdominal pain nausea vomiting diarrhea. All other systems were reviewed and were negative Paced rhythm on the monitor map 70 Review of Systems Review of Systems: All systems reviewed & are unremarkable except as noted in HPI and below (HPI) Exam Narrative: General: Old fragile male who appears older than his age who is alert awake and in no distress Lungs/Chest: Breath sounds are decreased on bases Cardiac: RRR. Normal S1 S2. No murmurs Circulation: Feet are warm Abdomen: Normal bowel sounds.. Morbidly obese, soft NT. ND. Extremities: No clubbing, cyanosis or edema. Warm bilateral pitting edema from : Nayak in place Neurologic: Follows commands. Moves all 4 extremities PERRL AO times 3 weak cough reflex Skin: No Rash Objective Data Vital Signs Vital Signs: Vital Signs - 24 hr 04/02/24 10:00 04/02/24 10:30 04/02/24 11:00 Temperature 35.7 C L 36.2 C L 36.3 C L Pulse Rate 60 Respiratory Rate 21 H Blood Pressure 117/79 Pulse Oximetry 98 Oxygen Delivery Oxygen Flow Rate Fraction of Inspired Oxygen 04/02/24 11:00 04/02/24 11:30 04/02/24 12:00 Temperature 36.3 C L 36.6 C Pulse Rate 60 Respiratory Rate 28 H Blood Pressure 115/70 Pulse Oximetry 98 97 Oxygen Delivery Nasal Cannula Oxygen Flow Rate 3 Fraction of Inspired Oxygen 04/02/24 12:00 04/02/24 12:00 04/02/24 12:01 Temperature 36.9 C 36.9 C Pulse Rate 60 60 Respiratory Rate 31 H Blood Pressure 104/67 Pulse Oximetry 97 Oxygen Delivery Oxygen Flow Rate Fraction of Inspired Oxygen 04/02/24 12:07 04/02/24 13:00 04/02/24 13:30 Temperature 36.9 C 37.3 C 37.3 C Pulse Rate 60 Respiratory Rate 32 H Blood Pressure 108/57 L Pulse Oximetry 97 Oxygen Delivery Oxygen Flow Rate Fraction of Inspired Oxygen 04/02/24 14:00 04/02/24 14:00 04/02/24 15:00 Temperature 37.2 C 37.2 C 37.3 C Pulse Rate 59 L 60 Respiratory Rate 25 H 21 H Blood Pressure 108/60 106/56 L Pulse Oximetry 99 98 Oxygen Delivery Oxygen Flow Rate Fraction of Inspired Oxygen 04/02/24 16:00 04/02/24 16:00 04/02/24 17:00 Temperature 37.3 C 37.2 C Pulse Rate 60 58 L Respiratory Rate 27 H 23 H Blood Pressure 94/52 L 99/82 L Pulse Oximetry 99 99 98 Oxygen Delivery Nasal Cannula Oxygen Flow Rate 3 Fraction of Inspired Oxygen 04/02/24 17:55 04/02/24 18:00 04/02/24 20:00 Temperature 37.3 C 37.3 C Pulse Rate 60 60 59 L Respiratory Rate 15 23 H Blood Pressure 99/82 L 114/52 L Pulse Oximetry 100 96 Oxygen Delivery Oxygen Flow Rate Fraction of Inspired Oxygen 04/02/24 20:00 04/02/24 20:00 04/02/24 22:00 Temperature Pulse Rate 58 L 58 L Respiratory Rate Blood Pressure Pulse Oximetry 96 Oxygen Delivery Nasal Cannula Oxygen Flow Rate 4 Fraction of Inspired Oxygen 04/02/24 23:04 04/02/24 23:12 04/03/24 00:00 Temperature 37.2 C Pulse Rate 83 55 L Respiratory Rate 23 H 19 Blood Pressure 99/50 L Pulse Oximetry 94 95 96 Oxygen Delivery Nasal Cannula Autopap Oxygen Flow Rate 4 Fraction of Inspired Oxygen 04/03/24 00:00 04/03/24 00:39 04/03/24 02:00 Temperature Pulse Rate 58 L 49 L 56 L Respiratory Rate Blood Pressure Pulse Oximetry Oxygen Delivery Oxygen Flow Rate Fraction of Inspired Oxygen 04/03/24 04:00 04/03/24 04:00 04/03/24 04:00 Temperature 37.3 C Pulse Rate 58 L 58 L Respiratory Rate 17 Blood Pressure 98/57 L Pulse Oximetry 95 96 Oxygen Delivery Nasal Cannula Oxygen Flow Rate 4 Fraction of Inspired Oxygen 04/03/24 06:00 04/03/24 06:24 04/03/24 08:00 Temperature Pulse Rate 65 60 60 Respiratory Rate 24 H Blood Pressure Pulse Oximetry 96 Oxygen Delivery Nasal Cannula Oxygen Flow Rate 4 Fraction of Inspired Oxygen 21 04/03/24 08:00 04/03/24 08:00 Temperature 37.1 C Pulse Rate 60 60 Respiratory Rate 24 H Blood Pressure 108/53 L Pulse Oximetry 96 Oxygen Delivery Oxygen Flow Rate Fraction of Inspired Oxygen Intake/Output Intake/Output: Intake & Output 0104/01/24 04/02/24 04/03/24 23:59 23:59 23:59 23:59 Intake Total 1420 1580 1100 600 Output Total 1050 800 550 500 Balance 370 780 550 100 Meds/Results Medications: Active Medications Generic Name Dose Route Start Last Admin Trade Name Freq PRN Reason Stop Dose Admin Acetaminophen 1,000 mg 03/16/24 02:11 04/01/24 17:05 Acetaminophen 500 Mg Tablet PO 1,000 mg Q8H PRN Administration fever or pain Aspirin 81 mg 03/16/24 08:00 04/03/24 09:38 Aspirin 81 Mg Chewable Tablet PO 81 mg DAILY@0800 SUNNY Administration Dabigatran 150 mg 03/16/24 09:00 04/02/24 21:26 Dabigatran Etexilate 150 Mg Capsule PO 150 mg Q12HR SUNNY Administration Dextrose 12.5 gm 03/13/24 21:39 Dextrose 50% 25 Gm/50 Ml Syringe IV PUSH PRN PRN Hypoglycemia Protocol Fenofibrate 145 mg 03/16/24 21:00 04/02/24 21:26 Fenofibrate Nanocrystallized 145 Mg Tablet PO 145 mg QHS SUNNY Administration Furosemide 40 mg 04/02/24 09:45 04/03/24 09:48 Furosemide Inj 40 Mg/4 Ml Vial IV PUSH 40 mg BID SUNNY Administration Glucagon 1 mg 03/13/24 21:39 Glucagon For Inj 1 Mg Vial IM PRN PRN Hypoglycemia Protocol Glucose 15 gm 03/13/24 21:39 Glucose Oral Gel 15 Gm Of Glucse In 37.5 Gm Tube PO PRN PRN Hypoglycemia Protocol Dextrose 1,000 mls @ 100 mls/hr 03/13/24 21:39 Dextrose 5% 1,000 Ml IVPB PRN PRN Hypoglycemia Protocol Vancomycin HCl 1,250 mg in 250 mls @ 166.667 mls/hr 03/24/24 07:00 04/03/24 07:58 Vancomycin 1,250 Mg/Ns 250 Ml IVPB 04/26/24 23:59 166 mls/hr Q24H SUNNY Administration Cefepime HCl 2 gm in 50 mls @ 100 mls/hr 04/02/24 08:00 04/03/24 09:38 Maxipime 2 Gm/Ns 50 Ml IVPB 100 mls/hr Q8H SUNNY Administration Insulin Aspart 4 - 8 units 03/21/24 08:00 04/03/24 07:23 Insulin Aspart (*Bkc) 100 Units/Ml SUB-Q Not Given [facility] Protocol Lactobacillus Acidophilus 1 tablet 03/16/24 09:00 04/03/24 09:39 Acidophilus/Bulgaricus Chewable Tablet PO 1 tablet BID SUNNY Administration Lidocaine 1 patch 03/26/24 16:10 04/03/24 09:40 Lidocaine 5% Patch TRANSDERM 1 patch DAILY SUNNY Administration Magnesium Hydroxide 30 ml 03/14/24 09:00 04/03/24 09:39 Magnesium Hydroxide Susp 30 Ml Udc PO 30 ml QAM SUNNY Administration Metoprolol Tartrate 6.25 mg 03/16/24 06:00 04/03/24 06:24 Metoprolol Tartrate 6.25 Mg Tablet PO 6.25 mg Q6HR SUNNY Administration Orphenadrine Citrate 100 mg 03/14/24 22:24 04/01/24 21:17 Orphenadrine Citrate 100 Mg Tablet.Er PO 100 mg Q12HR PRN Administration Muscle Spasm Polyethylene Glycol 17 gm 03/16/24 09:00 04/03/24 09:39 Polyethylene Glycol 3350 17 Gm Powd.Pack FEED TUBE Not Given BID [facility] Rosuvastatin Calcium 10 mg 03/14/24 21:00 04/02/24 21:26 Rosuvastatin 10 Mg Tablet PO 10 mg BEDTIME SUNNY Administration Sodium Chloride 1 gm 03/24/24 09:00 04/03/24 09:39 Sodium Chloride 1 Gm Tablet PO 1 gm BID SUNNY Administration Sodium Chloride 10 ml 04/02/24 14:00 04/03/24 06:25 Central Line Flush IV PUSH 10 ml Q8HR SUNNY Administration Sodium Chloride 10 ml 04/02/24 13:32 Central Line Flush IV PUSH PRN PRN with TPN bag changes Sodium Chloride 20 ml 04/02/24 13:32 Central Line Flush IV PUSH PRN PRN after blood draws Radiology Results: ITS Impressions Abdomen/Pelvis CT 03/13/24 17:07 IMPRESSION: Large hiatal hernia. Findings within the liver and spleen suggesting prior granulomatous disease. Fecal stasis within the colon and distending the rectum suggesting fecal impaction. Findings at the level of the inferior endplate of L3 which demonstrate progression from previous examination, possibly representing discitis/osteomyelitis for which clinical and serologic correlation is needed. Head CT 03/13/24 19:07 Impression: No acute intracranial hemorrhage or suspicious mass effect. Chest CT 04/02/24 09:09 Impression: Moderate to large bilateral pleural effusions with extensive bibasilar atelectatic changes and possible minimal pulmonary edema. No definite CT evidence for pneumonia, but underlying pneumonia cannot be completely excluded. Correlate clinically. Progressing erosive changes about the T8-T9 disc space. This could reflect locally advanced severe degenerative spondylitic change, versus possibly renal failure associated spondyloarthropathy or infectious osteomyelitis/discitis. Clinical correlation required. Chest X-Ray 04/02/24 11:40 Impression: 1: Right-sided PICC line tip ascends superiorly into the internal jugular vein, distal aspect not visualized. Recommend repositioning. 2: Cardiomegaly with mild interstitial edema. Labs Labs: Laboratory Results - last 24 hr 04/02/24 04/02/24 04/02/24 09:28 11:29 16:33 WBC RBC Hgb Hct MCV MCH MCHC RDW Plt Count MPV Immature Gran % (Auto) Neut % (Auto) Lymph % (Auto) [place] % (Auto) Eos % (Auto) Baso % (Auto) Lymph # (Auto) [place] # (Auto) Eos # (Auto) Baso # (Auto) Abs Immat Gran (auto) Absolute Neuts (auto) Absolute Nucleated RBC Nucleated RBC % Sodium Potassium Chloride Carbon Dioxide Anion Gap BUN Creatinine Estim Creat Clear Calc Estimated GFR Glucose POC Capillary Glucose 112 H 81 Calcium Magnesium Total Bilirubin AST ALT Alkaline Phosphatase Total Protein Albumin Urine Color Yellow Urine Appearance Turbid H Urine pH 7.5 Ur Specific Picher 1.014 Urine Protein 3+ H Urine Glucose (UA) Negative Urine Ketones Negative Ur Blood (Man) 2+ H Urine Nitrate Negative Urine Bilirubin Negative Urine Urobilinogen 1.0 Ur Leukocyte Esterase 3+ H Add Ur Microanalysis Reviewed Urine RBC 21-50 H Urine WBC >100 H Ur Squamous Epith Cells None seen Urine Bacteria 4+ Urine Casts 11-20 U Random Total Protein Ur Random Sodium Ur Random Urea Urine Creatinine 04/02/24 04/03/24 04/03/24 21:30 05:15 06:51 WBC 10.1 H RBC 3.08 L Hgb 7.9 L Hct 26.3 L MCV 85.4 D MCH 25.6 L MCHC 30.0 L RDW 18.5 H Plt Count 326 MPV 9.1 Immature Gran % (Auto) 4.3 H Neut % (Auto) 67.6 Lymph % (Auto) 15.3 L [place] % (Auto) 11.3 H Eos % (Auto) 0.8 Baso % (Auto) 0.7 Lymph # (Auto) 1.55 [place] # (Auto) 1.1 H Eos # (Auto) 0.1 Baso # (Auto) 0.1 Abs Immat Gran (auto) 0.43 H Absolute Neuts (auto) 6.8 H Absolute Nucleated RBC 0.120 H Nucleated RBC % 1.2 H Sodium 123 L Potassium 5.0 Chloride 92 L Carbon Dioxide 28 Anion Gap 3 L BUN 26 H Creatinine 0.89 Estim Creat Clear Calc 77 Estimated GFR > 60 Glucose 115 H POC Capillary Glucose 91 Calcium 8.1 L Magnesium 2.2 Total Bilirubin 0.4 AST 162 H ALT 62 H Alkaline Phosphatase 112 Total Protein 6.0 L Albumin 2.7 L Urine Color Urine Appearance Urine pH Ur Specific Picher Urine Protein Urine Glucose (UA) Urine Ketones Ur Blood (Man) Urine Nitrate Urine Bilirubin Urine Urobilinogen Ur Leukocyte Esterase Add Ur Microanalysis Urine RBC Urine WBC Ur Squamous Epith Cells Urine Bacteria Urine Casts U Random Total Protein 107 Ur Random Sodium 15 Ur Random Urea 485 Urine Creatinine 74.3
[2024-04-03 10:07] LABS: Glucose 120 mg/dL (65-110); Lactate Dehydrogenase 185 U/L (120-246)
[2024-04-03 12:54] LABS: Glucose Point of Care 124 mg/dl (65-105)
[2024-04-03 17:42] LABS: Creatinine Urine 74.3 mg/dL
[2024-04-03 18:47] LABS: Total Protein Urine Random 177 mg/dL; Ur Ttl Prot Creatinine Ratio 2.38 mg/mg (0-0.20)
--- NOTE | 2024-04-03 19:07 | PC.NURSE ---
Patient transferred to [facility]. All belongings sent with patient. Report given to ZI Royal. All questions answered.
[2024-04-03 20:36] LABS: Glucose Point of Care 130 mg/dl (65-105)
[2024-04-03] MEDS: FENOFIBRATE NANOCRYSTALLIZED 145 MG TABLET PO (21:00)
[2024-04-03] MEDS: ROSUVASTATIN 10 MG TABLET PO (21:00)
[2024-04-03] MEDS: ACETAMINOPHEN 500 MG TABLET 1000 MG PO (21:07)
[2024-04-04] VITALS (29 sets, daily range): BP systolic 92–147; BP diastolic 41–95; PULSE 53–62; RESP 15–22; TEMP 36.1–37.2; O2SAT 91–100
[2024-04-04] MEDS: IPRATROPIUM 0.5 MG/ALBUTEROL SULFATE 2.5 MG AMPUL.NEB 3 ML INHALATION ×5 (00:08→20:46)
[2024-04-04 04:22] LABS: Hematocrit 24.8 % (42.0-52.0); Hemoglobin 7.4 g/dL (14.0-18.0); Mean Corpuscular HGB Conc 29.8 g/dl (32-36); Mean Corpuscular Hemoglobin 25.6 pg (26-34); Mean Corpuscular Volume 85.8 fl (80-100); Mean Platelet Volume 8.7 fl (7.4-10.4); Platelet Count Result 261 k/mm3 (150-375); Red Blood Count 2.89 M/mm3 (4.6-6.20); Red Cell Distribution Width 18.5 % (11.5-14.5)
[2024-04-04 04:54] LABS: Alanine Aminotransferase 40 U/L (6-50); Albumin Level 2.5 g/dL (3.5-5.1); Alkaline Phosphatase 106 U/L (38-126); Anion Gap 4 mmol/L (4-12); Aspartate Amino Transferase 69 U/L (17-59); Bilirubin,Total 0.4 mg/dL (0.2-1.3); Blood Urea Nitrogen 28 mg/dL (9-20); Carbon Dioxide 28 mmol/L (22-30); Chloride 92 mmol/L (98-107); Estimated CRCL calculation 77 ml/min; Estimated Glomerular Filt Rate > 60; Glucose 121 mg/dL (65-110); Phosphorus 3.6 mg/dL (2.5-4.5); Potassium 4.5 mmol/L (3.4-5.0); Sodium 124 mmol/L (137-145)
[2024-04-04 05:09] LABS: Vancomycin Trough 22.6 ug/mL (10.0-20.0)
[2024-04-04] MEDS: METOPROLOL TARTRATE 6.25 MG TABLET PO ×3 (06:28→17:22)
[2024-04-04] MEDS: CENTRAL LINE FLUSH 10 ML IV PUSH ×3 (06:29→21:16)
[2024-04-04 07:44] LABS: Creatinine, Random Urine 77 mg/dL (20-320); Total Prot/Creat ratio mg/mg 1.636 (0.025-0.148); Total Protein/Creatinine Ratio 1636 mg/g creat (25-148)
--- NOTE | 2024-04-04 07:52 | PC.NURSE ---
Stat labs ordered for upcoming Thoracentisis per ultrasound request
[2024-04-04] MEDS: LIDOCAINE 5% PATCH 1 PATCH TRANSDERM (08:24)
[2024-04-04] MEDS: CEFEPIME 2 GM/NS 50 ML 2 GM/50 ML BAG IVPB ×2 (08:24→15:58)
[2024-04-04] MEDS: ACIDOPHILUS/BULGARICUS CHEWABLE TABLET 1 TABLET PO ×2 (08:26→17:22)
[2024-04-04] MEDS: ASPIRIN 81 MG CHEWABLE TABLET PO (08:26)
[2024-04-04] MEDS: SODIUM CHLORIDE 1 GM TABLET PO ×2 (08:27→17:22)
[2024-04-04] MEDS: FUROSEMIDE INJ 40 MG/4 ML VIAL IV PUSH ×2 (08:28→17:22)
[2024-04-04] MEDS: MAGNESIUM HYDROXIDE SUSP 30 ML UDC PO (08:42)
[2024-04-04 08:48] LABS: Glucose Point of Care 115 mg/dl (65-105)
--- NOTE | 2024-04-04 09:31 | PCNFU ---
Nutrition Follow-Up Complete: Severe protein calorie malnutrition related to recent acute infection, hospitalization; increased needs from multiple pressure injuries as evidenced by weight loss -13%/3 months; intakes <75% needs >1 month; severe muscle wasting and fat loss Adequate PO intake at least 75% meals and supplements for wound healing support - Progressing Goal: Pt current nutrition is NPO for thoracentesis. Nutrition recommendation: Continue diabetic consistent carb diet when diet is resumed after procedure. Flex BID (90 kcal, 2.5 g protein for wounds), Glucerna TID (220 kcal, 10 g protein) Last recorded weight is 105.6 kg. Bowel Motility: Last BM +1 04/01 Labs Reviewed: Hgb 7.4, Hct 24.8, Na 124, BUN 28 Glu 121 Meds Noted: Milk of magnesia, novolog, miralax, lasix Skin: Multiple pressure injuries: Stage 3 buttock, heel, R ischium; DTi sacrum, ischium Additional Notes: Eating 50-100% on previous consistent carb diet with 1 instance of 0%. Agree with current orders. Monitoring intakes, weights, labs, supplement tolerance, skin, plan of care Follow up in 5 days
[2024-04-04 09:36] LABS: INR 1.8; Prothrombin Time 21.6 Seconds (11.1-14.7)
[2024-04-04 09:38] LABS: Partial Thromboplastin Time 100.9 Seconds (22.3-36.8)
--- NOTE | 2024-04-04 10:34 | P.CDI_ITS ---
CDI Query Clarification Request Please specify acuity of heart failure if known. Risk Factors: Documented CHF diastolic and acute hypoxemic respiratory failure Clinical Indicators: Documented Pulm edema likely from Diastolic CHF ECHO from 10/21 ECHO 60-65% Treatment: Requires O2, Lasix 40 mg IV BID * Acute * Chronic * Acute on Chronic * Unknown <Simin Rome RN - Last Filed: 04/04/24 13:47> Clarified Diagnosis Clarified Diagnosis: Acute on chronic Diastolic heart failure <Denisse Kaur APRN - Last Filed: 04/04/24 14:34>
--- NOTE | 2024-04-04 10:50 | P.PNIM_ITS ---
Progress Note: A&P Assessment and Plan (1) Osteomyelitis of lumbar spine: Code(s): M46.26 - Osteomyelitis of vertebra, lumbar region Status: Acute Assessment and Plan: * Blood culture positive MRSA and repeat blood culture no growth until today * patient recently managed for MRSA endocarditis * Cont Vanc * Patient is waiting for a bed assignment for transfer to [facility] * Repeat echo showing no valvular vegetation * pain control (2) Discitis of lumbar region: Code(s): M46.46 - Discitis, unspecified, lumbar region Status: Acute Assessment and Plan: See Above (3) Bacteremia: Code(s): R78.81 - Bacteremia Status: Acute Assessment and Plan: * MRSA * echocardiogram with no valvular vegetation * will continue with IV vancomycin pending transfer to tertiary facility (4) Acute hypoxic on chronic hypercapnic respiratory failure: Code(s): J96.01 - Acute respiratory failure with hypoxia; J96.12 - Chronic respiratory failure with hypercapnia Status: Acute Assessment and Plan: * pulmonary edema * improved with IV Lasix * CT chest showing moderate to large bilateral pleural effusions * IR for thoracentesis hold AC for 24 hours scheduled for 04/04 * oxygen p.r.n. * fluid restriction (5) Acute exacerbation of CHF (congestive heart failure): Code(s): I50.9 - Heart failure, unspecified Status: Acute Assessment and Plan: Acute on chronic diastolic heart failure * CT chest showing bilateral moderate to large pleural effusions * cardiology consulted * IV Lasix b.i.d. * monitor renal function during diuresis LVEF 60-65%results or if applicable * echocardiogram LVEF 50-50% Diastolic * Optimize Tony inhibitors, beta-blockers, ARNI * Daily weight. * fluid restriction * Low sodium diet (6) Hypertension: Code(s): I10 - Essential (primary) hypertension Status: Acute Assessment and Plan: * Home medications on hold * Patient with soft BP likely secondary to IV lasix * Monitor BP per unit protocol * resume home medications as tolerated (7) CAD (coronary artery disease), autologous vein bypass graft: Code(s): I25.810 - Atherosclerosis of coronary artery bypass graft(s) without angina pectoris Status: Acute Assessment and Plan: * resumed ASA * resume fenofibrate (8) Atrial fibrillation: Onset Date: 04/20/17 Code(s): I48.91 - Unspecified atrial fibrillation Status: Chronic Assessment and Plan: * Rate controlled * AC resumed * cardiac monitoring (9) Type 2 diabetes mellitus with hyperglycemia, with long-term current use of insulin: Code(s): E11.65 - Type 2 diabetes mellitus with hyperglycemia; Z79.4 - detention (current) use of insulin Status: Acute Assessment and Plan: * Accu-Cheks a.c. HS * sliding scale insulin * hold oral diabetic medications * Optimize Tony inhibitors and statins. * Watch for hypoglycemia/hypoglycemic protocol ordered (10) Physical deconditioning: Code(s): R53.81 - Other malaise Status: Acute Assessment and Plan: * PT OT when clinically able to participate (11) Acute hyponatremia: Code(s): E87.1 - Hypo-osmolality and hyponatremia Status: Acute Assessment and Plan: * Na 123 secondary to congestive heart fail * Patient currently on Lasix * adjust based on hyponatremia workup * Nephrology consulted 04/04 * 124 NA * continue with Lasix * Fluid restriction * neuro checks Plan Code status: Full code per patient DVT prophylaxis: Dabigatran Stress ulcer prophylaxis: Protonix 40 daily PT/OT notes: PT/OT when medically stable Disposition: patient continues admission to the medical unit for lumbar osteomyelitis with MRSA diskitis currently is on wait list for transfer to tertiary facility [facility]. Time Spent With Patient Time with patient: 15 - 25 minutes Subjective Date/time seen: 04/04/24 10:50 Interval history: Patient is a 74-year-old male who was admitted to the medical unit currently being treated for osteomyelitis of the lumbar spine which has MRSA continue with IV vancomycin and waiting transfer to [facility] tertiary facility. 04/04/2024: Assumed Care Patient with no complaints and denies CP or SOB today. He is scheduled for RT sided thoracentesis today. He is responding but lethargic and reports being tired. [facility] called for follow-up still waiting on a bed. Review of Systems Review of Systems: Back pain, abdominal pain All systems reviewed & are unremarkable except as noted in HPI and below (HPI) Exam Narrative: General: Old fragile male who appears older than his age who is lethargic in no acute distress Lungs/Chest: Breath sounds diminished throughout on auscultation Cardiac: RRR. Normal S1 S2. No murmurs Circulation: Pulses 2+ and skin warm to tough Abdomen: Normal bowel sounds.. Morbidly obese, soft NT. ND. Extremities: No clubbing, cyanosis or edema. Warm bilateral pitting edema from : Nayak in place Neurologic: Follows commands. Moves all 4 extremities PERRL AO times 3 Skin: No Rash Objective Data Vital Signs Vital Signs: Vital Signs - 24 hr 04/03/24 12:00 04/03/24 12:00 04/03/24 12:00 Temperature 98.5 F Pulse Rate 60 60 60 Respiratory Rate 20 20 Blood Pressure 103/55 L Pulse Oximetry 99 99 Oxygen Delivery Room Air Oxygen Flow Rate Fraction of Inspired Oxygen 21 04/03/24 13:52 04/03/24 14:00 04/03/24 16:00 Temperature Pulse Rate 60 60 60 Respiratory Rate 20 Blood Pressure Pulse Oximetry 98 Oxygen Delivery Room Air Oxygen Flow Rate Fraction of Inspired Oxygen 21 04/03/24 16:00 04/03/24 16:00 04/03/24 17:39 Temperature 98.9 F Pulse Rate 60 60 60 Respiratory Rate 20 Blood Pressure 97/47 L Pulse Oximetry 98 Oxygen Delivery Oxygen Flow Rate Fraction of Inspired Oxygen 04/03/24 18:00 04/03/24 20:00 04/03/24 20:00 Temperature Pulse Rate 60 60 Respiratory Rate Blood Pressure Pulse Oximetry 93 Oxygen Delivery Nasal Cannula Oxygen Flow Rate 5 Fraction of Inspired Oxygen 04/03/24 20:00 04/03/24 22:00 04/03/24 23:14 Temperature 97.4 F L Pulse Rate 60 60 60 Respiratory Rate 20 Blood Pressure 106/62 Pulse Oximetry 90 Oxygen Delivery Oxygen Flow Rate Fraction of Inspired Oxygen 04/04/24 00:00 04/04/24 00:00 04/04/24 00:00 Temperature 97.2 F L Pulse Rate 60 60 Respiratory Rate 16 Blood Pressure 94/48 L Pulse Oximetry 97 97 Oxygen Delivery Nasal Cannula Oxygen Flow Rate 4 Fraction of Inspired Oxygen 04/04/24 00:08 04/04/24 00:10 04/04/24 00:15 Temperature Pulse Rate 60 60 60 Respiratory Rate 21 H 21 H Blood Pressure Pulse Oximetry 98 Oxygen Delivery Nasal Cannula Oxygen Flow Rate 3 Fraction of Inspired Oxygen 04/04/24 02:00 04/04/24 02:00 04/04/24 02:41 Temperature Pulse Rate 60 60 Respiratory Rate 16 Blood Pressure Pulse Oximetry 99 Oxygen Delivery Nasal Cannula Oxygen Flow Rate 3 Fraction of Inspired Oxygen 04/04/24 02:47 04/04/24 04:00 04/04/24 04:00 Temperature 98.0 F Pulse Rate 60 60 Respiratory Rate 22 H 19 Blood Pressure 106/60 Pulse Oximetry 98 97 Oxygen Delivery Nasal Cannula Oxygen Flow Rate 2 Fraction of Inspired Oxygen 04/04/24 04:00 04/04/24 06:00 04/04/24 06:28 Temperature Pulse Rate 60 60 60 Respiratory Rate Blood Pressure Pulse Oximetry Oxygen Delivery Oxygen Flow Rate Fraction of Inspired Oxygen 04/04/24 08:51 04/04/24 08:51 04/04/24 09:47 Temperature 97.0 F L Pulse Rate 60 62 Respiratory Rate 15 Blood Pressure 92/52 L Pulse Oximetry 94 91 Oxygen Delivery Nasal Cannula Oxygen Flow Rate 2 Fraction of Inspired Oxygen 04/04/24 09:47 04/04/24 09:55 04/04/24 10:04 Temperature Pulse Rate 60 60 55 L Respiratory Rate 19 17 Blood Pressure Pulse Oximetry Oxygen Delivery Oxygen Flow Rate Fraction of Inspired Oxygen Intake/Output Intake/Output: Intake & Output 04/01/24 04/02/24 04/03/24 04/04/24 23:59 23:59 23:59 23:59 Intake Total 1580 1100 2110 50 Output Total 528 045 1031 1150 Balance 780 550 210 -1100 Meds/Results Medications: Active Medications Generic Name Dose Route Start Last Admin Trade Name Freq PRN Reason Stop Dose Admin Acetaminophen 1,000 mg 03/16/24 02:11 04/03/24 21:07 Acetaminophen 500 Mg Tablet PO 1,000 mg Q8H PRN Administration fever or pain Albuterol/Ipratropium 3 ml 04/04/24 02:00 04/04/24 09:47 Ipratropium 0.5 Mg/Albuterol Sulfate 2.5 Mg Ampul.Neb 3 Ml INHALATION 3 ml Q6HRT SUNNY Administration Aspirin 81 mg 03/16/24 08:00 04/04/24 08:26 Aspirin 81 Mg Chewable Tablet PO 81 mg DAILY@0800 SUNNY Administration Dabigatran 150 mg 03/16/24 09:00 04/03/24 10:26 Dabigatran Etexilate 150 Mg Capsule PO Not Given Q12HR SUNNY Dextrose 12.5 gm 03/13/24 21:39 Dextrose 50% 25 Gm/50 Ml Syringe IV PUSH PRN PRN Hypoglycemia Protocol Fenofibrate 145 mg 03/16/24 21:00 04/03/24 21:00 Fenofibrate Nanocrystallized 145 Mg Tablet PO 145 mg QHS SUNNY Administration Furosemide 40 mg 04/02/24 09:45 04/04/24 08:28 Furosemide Inj 40 Mg/4 Ml Vial IV PUSH 40 mg BID SUNNY Administration Glucagon 1 mg 03/13/24 21:39 Glucagon For Inj 1 Mg Vial IM PRN PRN Hypoglycemia Protocol Glucose 15 gm 03/13/24 21:39 Glucose Oral Gel 15 Gm Of Glucse In 37.5 Gm Tube PO PRN PRN Hypoglycemia Protocol Dextrose 1,000 mls @ 100 mls/hr 03/13/24 21:39 Dextrose 5% 1,000 Ml IVPB PRN PRN Hypoglycemia Protocol Cefepime HCl 2 gm in 50 mls @ 100 mls/hr 04/02/24 08:00 04/04/24 08:24 Maxipime 2 Gm/Ns 50 Ml IVPB 100 mls/hr Q8H SUNNY Administration Vancomycin HCl 1,250 mg in 250 mls @ 166.667 mls/hr 04/04/24 19:00 Vancomycin 1,250 Mg/Ns 250 Ml IVPB Q36H SUNNY Insulin Aspart 4 - 8 units 03/21/24 08:00 04/04/24 09:09 Insulin Aspart (*Bkc) 100 Units/Ml SUB-Q Not Given WMHS SUNNY Protocol Lactobacillus Acidophilus 1 tablet 03/16/24 09:00 04/04/24 08:26 Acidophilus/Bulgaricus Chewable Tablet PO 1 tablet BID SUNNY Administration Lidocaine 1 patch 03/26/24 16:10 04/04/24 08:24 Lidocaine 5% Patch TRANSDERM 1 patch DAILY SUNNY Administration Magnesium Hydroxide 30 ml 03/14/24 09:00 04/04/24 08:42 Magnesium Hydroxide Susp 30 Ml Udc PO 30 ml QAM SUNNY Administration Metoprolol Tartrate 6.25 mg 03/16/24 06:00 04/04/24 06:28 Metoprolol Tartrate 6.25 Mg Tablet PO 6.25 mg Q6HR SUNNY Administration Orphenadrine Citrate 100 mg 03/14/24 22:24 04/01/24 21:17 Orphenadrine Citrate 100 Mg Tablet.Er PO 100 mg Q12HR PRN Administration Muscle Spasm Perflutren Lipid Microsphere 0 ml 04/03/24 10:04 Perflutren Lipid Microspheres 1.5 Ml Vial Diluted To 10 Ml Total Volume IV PUSH 04/06/24 10:04 ONCE PRN adequate visualization Protocol Polyethylene Glycol 17 gm 03/16/24 09:00 04/04/24 09:09 Polyethylene Glycol 3350 17 Gm Powd.Pack FEED TUBE Not Given BID SUNNY Rosuvastatin Calcium 10 mg 03/14/24 21:00 04/03/24 21:00 Rosuvastatin 10 Mg Tablet PO 10 mg BEDTIME SUNNY Administration Sodium Chloride 1 gm 03/24/24 09:00 04/04/24 08:27 Sodium Chloride 1 Gm Tablet PO 1 gm BID SUNNY Administration Sodium Chloride 10 ml 04/02/24 14:00 04/04/24 06:29 Central Line Flush IV PUSH 10 ml Q8HR SUNNY Administration Sodium Chloride 10 ml 04/02/24 13:32 Central Line Flush IV PUSH PRN PRN with TPN bag changes Sodium Chloride 20 ml 04/02/24 13:32 Central Line Flush IV PUSH PRN PRN after blood draws Radiology Results: ITS Impressions Abdomen/Pelvis CT 03/13/24 17:07 IMPRESSION: Large hiatal hernia. Findings within the liver and spleen suggesting prior granulomatous disease. Fecal stasis within the colon and distending the rectum suggesting fecal impaction. Findings at the level of the inferior endplate of L3 which demonstrate progression from previous examination, possibly representing discitis/osteomyelitis for which clinical and serologic correlation is needed. Head CT 03/13/24 19:07 Impression: No acute intracranial hemorrhage or suspicious mass effect. Chest CT 04/02/24 09:09 Impression: Moderate to large bilateral pleural effusions with extensive bibasilar atelectatic changes and possible minimal pulmonary edema. No definite CT evidence for pneumonia, but underlying pneumonia cannot be completely excluded. Correlate clinically. Progressing erosive changes about the T8-T9 disc space. This could reflect locally advanced severe degenerative spondylitic change, versus possibly renal failure associated spondyloarthropathy or infectious osteomyelitis/discitis. Clinical correlation required. Chest X-Ray 04/02/24 11:40 Impression: 1: Right-sided PICC line tip ascends superiorly into the internal jugular vein, distal aspect not visualized. Recommend repositioning. 2: Cardiomegaly with mild interstitial edema. Labs Labs: Laboratory Results - last 24 hr 04/03/24 04/03/24 04/03/24 06:51 06:51 12:52 WBC RBC Hgb Hct MCV MCH MCHC RDW Plt Count MPV PT INR APTT Sodium Potassium Chloride Carbon Dioxide Anion Gap BUN Creatinine Estim Creat Clear Calc Estimated GFR Glucose POC Capillary Glucose 124 H Calcium Phosphorus Magnesium Total Bilirubin AST ALT Alkaline Phosphatase Total Protein Albumin TSH (Reflex) Random Cortisol Ur Random Creatinine 77 U Random Total Protein 177 126 H Urine Creatinine 74.3 Protein/Creatinin Ratio 1636 H Protein/Creat Ratio 2 2.38 H Vancomycin Trough 01/04/04/24 04/04/24 20:33 04:14 04:14 WBC 9.0 RBC 2.89 L Hgb 7.4 L Hct 24.8 L MCV 85.8 MCH 25.6 L MCHC 29.8 L RDW 18.5 H Plt Count 261 MPV 8.7 PT INR APTT Sodium 124 L Potassium 4.5 Chloride 92 L Carbon Dioxide 28 Anion Gap 4 BUN 28 H Creatinine 0.88 Cancelled Estim Creat Clear Calc 77 Estimated GFR Glucose POC Capillary Glucose 130 H Calcium Phosphorus Magnesium Total Bilirubin AST ALT Alkaline Phosphatase Total Protein Albumin TSH (Reflex) Random Cortisol Ur Random Creatinine U Random Total Protein Urine Creatinine Protein/Creatinin Ratio Protein/Creat Ratio 2 Vancomycin Trough 04/04/24 04/04/24 04/04/24 04:14 04:14 08:13 WBC RBC Hgb Hct MCV MCH MCHC RDW Plt Count MPV PT INR APTT Sodium Potassium Chloride Carbon Dioxide Anion Gap BUN Creatinine Estim Creat Clear Calc Cancelled Estimated GFR > 60 Cancelled Glucose 121 H POC Capillary Glucose 115 H Calcium 8.0 L Phosphorus 3.6 Magnesium 2.0 Total Bilirubin 0.4 AST 69 H ALT 40 Alkaline Phosphatase 106 Total Protein 6.0 L Albumin 2.5 L TSH (Reflex) 2.910 Random Cortisol 13.50 Ur Random Creatinine U Random Total Protein Urine Creatinine Protein/Creatinin Ratio Protein/Creat Ratio 2 Vancomycin Trough 22.6 H 04/04/24 08:15 WBC RBC Hgb Hct MCV MCH MCHC RDW Plt Count MPV PT 21.6 H INR 1.8 APTT 100.9 H Sodium Potassium Chloride Carbon Dioxide Anion Gap BUN Creatinine Estim Creat Clear Calc Estimated GFR Glucose POC Capillary Glucose Calcium Phosphorus Magnesium Total Bilirubin AST ALT Alkaline Phosphatase Total Protein Albumin TSH (Reflex) Random Cortisol Ur Random Creatinine U Random Total Protein Urine Creatinine Protein/Creatinin Ratio Protein/Creat Ratio 2 Vancomycin Trough Quality VTE Prophylaxis VTE prophylaxis: pharmacologic ordered -Patient's previous records reviewed on admission -ER notes reviewed in detail on admission -discussed all findings and current treatment plan with patient/Family/POA -Consultations reviewed for recommendations -Patient's disposition for safe discharge discussed with onsite case manager Dictation performed by [email or web address] direct speech recognition software, therefore bike technician variants and typographical errors may occur. Hospitalist MIPS Advance Care Plan I have confirmed that the patient's Advanced Care Plan is present, code status is documented, or surrogate decision maker is listed in patient medical record.: Yes Medication Reconciliation I have utilized all available resources to obtain, update and review the patients current medications (includes all prescriptions, OTC, herbals, cannabis, and nutritional supplements).: Yes The patient is not eligible for med reconciliation; the patient is in a emergent medical situation where delaying treatment would jeopardize the patients health.: No
[2024-04-04 12:11] LABS: Glucose Point of Care 103 mg/dl (65-105)
--- NOTE | 2024-04-04 12:45 | P.PNNP_ITS ---
Progress Note: A&P Assessment and Plan (1) Hyponatremia: Code(s): E87.1 - Hypo-osmolality and hyponatremia Status: Acute Assessment and Plan: * acute on chronic * present as far back as December 2023 if not longer * sodium usually runs around 126 - 136mmol/L * evidence would suggest due to volume overload given clinical picture * evaluation to date noted: * CXR and CT of chest with pleural effusions * CT of head negative * urine electrolytes prerenal * TSH okay * cortisol within normal limits * SPEP/UPEP pending * agree with diuresis * already started on salt tabs * coordinate salt tab administration with IV lasix to promote free water excretion * on fluid restriction * follow trend of repeat sodium levels (2) Osteomyelitis of lumbar spine: Code(s): M46.26 - Osteomyelitis of vertebra, lumbar region Status: Acute Assessment and Plan: * blood culutres with MRSA * repeat blood culture no growth until today * patient recently managed for MRSA endocarditis * on IV vancomycin * awaiting transfer to [facility] * repeat echo showing no valvular vegetation * pain control (3) Bacteremia: Code(s): R78.81 - Bacteremia Status: Acute Assessment and Plan: * blood culture with MRSA * repeat echocardiogram with no valvular vegetation * presumed source = #2 * remains on IV vancomycin (4) Acute hypoxic on chronic hypercapnic respiratory failure: Code(s): J96.01 - Acute respiratory failure with hypoxia; J96.12 - Chronic respiratory failure with hypercapnia Status: Acute Assessment and Plan: * secondary to volume overload/pulmonary edema * slow improvement with IV diuresis * recent CT chest showing moderate to large bilateral pleural effusions * plan for thoracentesis * supplemental oxygen p.r.n. * also on fluid restriction (but not really eating/drinking much) (5) Acute exacerbation of CHF (congestive heart failure): Code(s): I50.9 - Heart failure, unspecified Status: Acute Assessment and Plan: * felt to be acute on chronic diastolic heart failure * CT chest showing bilateral moderate to large pleural effusions * Cardiology following * continue diuresis as tolerated * follow daily weights, I/Os, and respiratory status (6) Hypertension: Code(s): I10 - Essential (primary) hypertension Status: Acute Assessment and Plan: * follow trend of hemodynamics * BP medications with parameters given soft BP at this time * follow trend of hemodynamics (7) Atrial fibrillation: Onset Date: 04/20/17 Code(s): I48.91 - Unspecified atrial fibrillation Status: Chronic Assessment and Plan: * rate control strategy * on anticoagulation (8) Type 2 diabetes mellitus with hyperglycemia, with long-term current use of insulin: Code(s): E11.65 - Type 2 diabetes mellitus with hyperglycemia; 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 L Time Spent With Patient Time with patient: 15 - 25 minutes Subjective Date/time seen: 04/04/24 12:45 Interval history: Follow-up for acute on chronic hyponatremia. Sodium relatively stable if not slightly better with interventions to date (salt tabs + IV lasix + fluid restriction); tentatively scheduled for right thoracentesis this afternoon; no apparent issues/events overnight or earlier this morning; major complaint is that of fatigue/weakness. Exam 2 Narrative: General: frail and elderly male in NAD Heart: normal S1 and S2; no rub Lungs: diminished and decreased at bases Abdomen: soft, nontender, nondistended, positive bowel sounds Extremities: no cyanosis or clubbing; 1+ edema Skin: warm and dry Objective Data Vital Signs Vital Signs: Vital Signs Temp Pulse Resp BP Pulse Ox O2 Del Method O2 Flow Rate 04/04/24 12:00 97.1 F L 60 20 122/51 L 94 04/04/24 12:00 60 04/04/24 12:00 60 20 94 Nasal Cannula 2 04/04/24 11:56 60 04/04/24 10:04 55 L 04/04/24 09:55 60 17 04/04/24 09:47 60 19 04/04/24 09:47 91 Nasal Cannula 2 04/04/24 08:51 97.0 F L 62 17 92/52 L 94 04/04/24 08:51 60 04/04/24 08:51 60 17 91 Nasal Cannula 2 04/04/24 06:28 60 04/04/24 06:00 60 04/04/24 04:00 60 04/04/24 04:00 97 Nasal Cannula 2 04/04/24 04:00 98.0 F 60 19 106/60 98 04/04/24 02:47 60 22 H 04/04/24 02:41 60 16 04/04/24 02:00 99 Nasal Cannula 3 04/04/24 02:00 60 04/04/24 00:15 60 21 H 04/04/24 00:10 60 98 Nasal Cannula 3 04/04/24 00:08 60 21 H 04/04/24 00:00 60 04/04/24 00:00 97.2 F L 60 16 94/48 L 97 04/04/24 00:00 97 Nasal Cannula 4 04/03/24 23:14 60 04/03/24 22:00 60 04/03/24 20:00 97.4 F L 60 20 106/62 90 04/03/24 20:00 60 04/03/24 20:00 93 Nasal Cannula 5 04/03/24 18:00 60 Intake/Output Intake/Output: Intake & Output 04/01/24 04/02/24 04/03/24 04/04/24 23:59 23:59 23:59 23:59 Intake Total 1580 1100 2110 200 Output Total 784 378 3070 3025 Balance 780 550 210 2825 Meds/Results Medications: Active Medications Generic Name Dose Route Start Last Admin Trade Name Freq PRN Reason Stop Dose Admin Acetaminophen 1,000 mg 03/16/24 02:11 04/03/24 21:07 Acetaminophen 500 Mg Tablet PO 1,000 mg Q8H PRN Administration fever or pain Albuterol/Ipratropium 3 ml 04/04/24 02:00 04/04/24 14:13 Ipratropium 0.5 Mg/Albuterol Sulfate 2.5 Mg Ampul.Neb 3 Ml INHALATION 3 ml Q6HRT SUNNY Administration Aspirin 81 mg 03/16/24 08:00 04/04/24 08:26 Aspirin 81 Mg Chewable Tablet PO 81 mg DAILY@0800 SNUNY Administration Dabigatran 150 mg 03/16/24 09:00 04/03/24 10:26 Dabigatran Etexilate 150 Mg Capsule PO Not Given Q12HR SUNNY Dextrose 12.5 gm 03/13/24 21:39 Dextrose 50% 25 Gm/50 Ml Syringe IV PUSH PRN PRN Hypoglycemia Protocol Famotidine 20 mg 04/04/24 21:00 Famotidine 20 Mg Tablet PO Q12HR SUNNY Fenofibrate 145 mg 03/16/24 21:00 04/03/24 21:00 Fenofibrate Nanocrystallized 145 Mg Tablet PO 145 mg QHS SUNNY Administration Furosemide 40 mg 04/02/24 09:45 04/04/24 17:22 Furosemide Inj 40 Mg/4 Ml Vial IV PUSH 40 mg BID SUNNY Administration Glucagon 1 mg 03/13/24 21:39 Glucagon For Inj 1 Mg Vial IM PRN PRN Hypoglycemia Protocol Glucose 15 gm 03/13/24 21:39 Glucose Oral Gel 15 Gm Of Glucse In 37.5 Gm Tube PO PRN PRN Hypoglycemia Protocol Dextrose 1,000 mls @ 100 mls/hr 03/13/24 21:39 Dextrose 5% 1,000 Ml IVPB PRN PRN Hypoglycemia Protocol Cefepime HCl 2 gm in 50 mls @ 100 mls/hr 04/02/24 08:00 04/04/24 15:58 Maxipime 2 Gm/Ns 50 Ml IVPB 100 mls/hr Q8H SUNNY Administration Vancomycin HCl 1,250 mg in 250 mls @ 166.667 mls/hr 04/04/24 19:00 Vancomycin 1,250 Mg/Ns 250 Ml IVPB Q36H SUNNY Insulin Aspart 4 - 8 units 03/21/24 08:00 04/04/24 17:23 Insulin Aspart (*Bkc) 100 Units/Ml SUB-Q Not Given WMHS SUNNY Protocol Lactobacillus Acidophilus 1 tablet 03/16/24 09:00 04/04/24 17:22 Acidophilus/Bulgaricus Chewable Tablet PO 1 tablet BID SUNNY Administration Lidocaine 1 patch 03/26/24 16:10 04/04/24 08:24 Lidocaine 5% Patch TRANSDERM 1 patch DAILY SUNNY Administration Magnesium Hydroxide 30 ml 03/14/24 09:00 04/04/24 08:42 Magnesium Hydroxide Susp 30 Ml Udc PO 30 ml QAM SUNNY Administration Metoprolol Tartrate 6.25 mg 03/16/24 06:00 04/04/24 17:22 Metoprolol Tartrate 6.25 Mg Tablet PO 6.25 mg Q6HR SUNNY Administration Orphenadrine Citrate 100 mg 03/14/24 22:24 04/01/24 21:17 Orphenadrine Citrate 100 Mg Tablet.Er PO 100 mg Q12HR PRN Administration Muscle Spasm Perflutren Lipid Microsphere 0 ml 04/03/24 10:04 Perflutren Lipid Microspheres 1.5 Ml Vial Diluted To 10 Ml Total Volume IV PUSH 04/06/24 10:04 ONCE PRN adequate visualization Protocol Polyethylene Glycol 17 gm 03/16/24 09:00 04/04/24 17:22 Polyethylene Glycol 3350 17 Gm Powd.Pack FEED TUBE 17 gm BID SUNNY Administration Rosuvastatin Calcium 10 mg 03/14/24 21:00 04/03/24 21:00 Rosuvastatin 10 Mg Tablet PO 10 mg BEDTIME SUNNY Administration Sodium Chloride 1 gm 03/24/24 09:00 04/04/24 17:22 Sodium Chloride 1 Gm Tablet PO 1 gm BID SUNNY Administration Sodium Chloride 10 ml 04/02/24 14:00 04/04/24 14:04 Central Line Flush IV PUSH 10 ml Q8HR SUNNY Administration Sodium Chloride 10 ml 04/02/24 13:32 Central Line Flush IV PUSH PRN PRN with TPN bag changes Sodium Chloride 20 ml 04/02/24 13:32 Central Line Flush IV PUSH PRN PRN after blood draws Radiology Results: ITS Impressions Abdomen/Pelvis CT 03/13/24 17:07 IMPRESSION: Large hiatal hernia. Findings within the liver and spleen suggesting prior granulomatous disease. Fecal stasis within the colon and distending the rectum suggesting fecal impaction. Findings at the level of the inferior endplate of L3 which demonstrate progression from previous examination, possibly representing discitis/osteomyelitis for which clinical and serologic correlation is needed. Head CT 03/13/24 19:07 Impression: No acute intracranial hemorrhage or suspicious mass effect. Chest CT 04/02/24 09:09 Impression: Moderate to large bilateral pleural effusions with extensive bibasilar atelectatic changes and possible minimal pulmonary edema. No definite CT evidence for pneumonia, but underlying pneumonia cannot be completely excluded. Correlate clinically. Progressing erosive changes about the T8-T9 disc space. This could reflect locally advanced severe degenerative spondylitic change, versus possibly renal failure associated spondyloarthropathy or infectious osteomyelitis/discitis. Clinical correlation required. Labs Labs: Laboratory Tests 04/04/24 04:14 04/04/24 04:14 Calcium 8.0 L Phosphorus 3.6 Magnesium 2.0 Total Bilirubin 0.4 AST 69 H ALT 40 Alkaline Phosphatase 106 Total Protein 6.0 L Albumin 2.5 L TSH (Reflex) 2.910 Random Cortisol 13.50 Microbiology 04/02/24 09:28 Urine Catheterized Urine Culture - Final
--- NOTE | 2024-04-04 14:30 | PC.NURSE ---
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
--- NOTE | 2024-04-04 15:31 | PC.NURSE ---
Returned from ultrasound post thoracentesis. Bandaid d/i rt upper back. No resp distress. Pt to remain NPO for 2 hrs post procedure.
[2024-04-04 15:42] LABS: pH Pleural Fluid > 7.500 (7.210-7.500)
[2024-04-04 16:16] LABS: Appearance Pleural Fluid Hazy (Clear); Color Pleural Fluid Yellow (Colorless); Pleural fluid source Pleural fluid
[2024-04-04 16:17] LABS: Lymphocytes Pleural Fluid 11 %; Macrophages Pleural Fluid 70 %; Monocytes Pleural Fluid 4 %; Neutrophils Pleural Fluid 15 % (0-25); Nucleated Cell Pleural Fluid 908 /uL (0-1000); RBC Pleural Fluid < 2000 /uL (0-10000)
[2024-04-04 17:17] LABS: Glucose Point of Care 110 mg/dl (65-105)
[2024-04-04] MEDS: polyethylene glycoL 3350 17 GM POWD.PACK FEED TUBE (17:22)
[2024-04-04] MEDS: VANCOMYCIN 1,250 MG/NS 250 ML 1,250 MG/250 ML BAG 166.67 MG IVPB (19:25)
[2024-04-04 20:48] LABS: Glucose Point of Care 135 mg/dl (65-105)
[2024-04-04] MEDS: FENOFIBRATE NANOCRYSTALLIZED 145 MG TABLET PO (21:23)
[2024-04-04] MEDS: FAMOTIDINE 20 MG TABLET PO (21:23)
[2024-04-04] MEDS: ROSUVASTATIN 10 MG TABLET PO (21:23)
[2024-04-05] VITALS (16 sets, daily range): BP systolic 102–140; BP diastolic 43–50; PULSE 51–86; RESP 18–22; TEMP 36.3–36.7; O2SAT 90–100
[2024-04-05] MEDS: IPRATROPIUM 0.5 MG/ALBUTEROL SULFATE 2.5 MG AMPUL.NEB 3 ML INHALATION ×3 (02:36→13:10)
[2024-04-05] MEDS: ALTEPLASE 2 MG VIAL (CATHFLO) IV PUSH ×2 (02:45→02:56)
[2024-04-05] MEDS: CENTRAL LINE FLUSH 20 ML IV PUSH (05:09)
[2024-04-05] MEDS: CENTRAL LINE FLUSH 10 ML IV PUSH ×3 (05:09→21:25)
[2024-04-05] MEDS: CEFEPIME 2 GM/NS 50 ML 2 GM/50 ML BAG IVPB ×3 (05:14→21:22)
[2024-04-05 05:16] LABS: Hematocrit 24.3 % (42.0-52.0); Hemoglobin 7.4 g/dL (14.0-18.0); Mean Corpuscular HGB Conc 30.5 g/dl (32-36); Mean Corpuscular Volume 85.3 fl (80-100); Mean Platelet Volume 9.4 fl (7.4-10.4); Platelet Count Result 260 k/mm3 (150-375); Red Blood Count 2.85 M/mm3 (4.6-6.20); Red Cell Distribution Width 18.8 % (11.5-14.5); White Blood Count 8.6 K/mm3 (4.5-10.0)
[2024-04-05 05:25] LABS: Alanine Aminotransferase 27 U/L (6-50); Albumin Level 2.7 g/dL (3.5-5.1); Alkaline Phosphatase 102 U/L (38-126); Anion Gap 3 mmol/L (4-12); Aspartate Amino Transferase 40 U/L (17-59); Bilirubin,Total 0.5 mg/dL (0.2-1.3); Blood Urea Nitrogen 27 mg/dL (9-20); Calcium 8.6 mg/dL (8.4-10.2); Carbon Dioxide 32 mmol/L (22-30); Chloride 95 mmol/L (98-107); Estimated CRCL calculation 82 ml/min; Estimated Glomerular Filt Rate > 60; Glucose 111 mg/dL (65-110); Phosphorus 2.5 mg/dL (2.5-4.5); Potassium 4.1 mmol/L (3.4-5.0); Sodium 130 mmol/L (137-145)
[2024-04-05 06:18] LABS: Protein, Total 5.3 g/dL (6.1-8.1)
[2024-04-05 09:01] LABS: Glucose Point of Care 119 mg/dl (65-105)
--- NOTE | 2024-04-05 09:21 | P.PNIM_ITS ---
Progress Note: A&P Assessment and Plan (1) Osteomyelitis of lumbar spine: Code(s): M46.26 - Osteomyelitis of vertebra, lumbar region Status: Acute Assessment and Plan: * Blood culture positive MRSA and repeat blood culture no growth until today * patient recently managed for MRSA endocarditis * Cont Vanc and cefepime * Patient is waiting for a bed assignment for transfer to [facility] * Repeat echo showing no valvular vegetation * pain control (2) Discitis of lumbar region: Code(s): M46.46 - Discitis, unspecified, lumbar region Status: Acute Assessment and Plan: See Above (3) Bacteremia: Code(s): R78.81 - Bacteremia Status: Acute Assessment and Plan: * MRSA * echocardiogram with no valvular vegetation * will continue with IV vancomycin pending transfer to tertiary facility (4) Acute hypoxic on chronic hypercapnic respiratory failure: Code(s): J96.01 - Acute respiratory failure with hypoxia; J96.12 - Chronic respiratory failure with hypercapnia Status: Acute Assessment and Plan: * pulmonary edema * improved with IV Lasix * CT chest showing moderate to large bilateral pleural effusions * IR for thoracentesis hold AC for 24 hours scheduled for 04/04 * oxygen p.r.n. * fluid restriction 04/05 * LT sided thoracentesis scheduled for today * continue with IV Lasix and spironolactone * encouraged the use of incentive spirometer (5) Acute exacerbation of CHF (congestive heart failure): Code(s): I50.9 - Heart failure, unspecified Status: Acute Assessment and Plan: Acute on chronic diastolic heart failure * CT chest showing bilateral moderate to large pleural effusions * cardiology consulted * IV Lasix b.i.d. * monitor renal function during diuresis LVEF 60-65%results or if applicable * echocardiogram LVEF 50-50% Diastolic * Optimize Tony inhibitors, beta-blockers, ARNI * Daily weight. * fluid restriction * Low sodium diet (6) Hypertension: Code(s): I10 - Essential (primary) hypertension Status: Acute Assessment and Plan: * Home medications on hold * Patient with soft BP likely secondary to IV lasix * Monitor BP per unit protocol * resume home medications as tolerated (7) CAD (coronary artery disease), autologous vein bypass graft: Code(s): I25.810 - Atherosclerosis of coronary artery bypass graft(s) without angina pectoris Status: Acute Assessment and Plan: * resumed ASA * resume fenofibrate (8) Atrial fibrillation: Onset Date: 04/20/17 Code(s): I48.91 - Unspecified atrial fibrillation Status: Chronic Assessment and Plan: * Rate controlled * AC resumed * cardiac monitoring (9) Type 2 diabetes mellitus with hyperglycemia, with long-term current use of insulin: Code(s): E11.65 - Type 2 diabetes mellitus with hyperglycemia; Z79.4 - long term care pharmacist (current) use of insulin Status: Acute Assessment and Plan: * Accu-Cheks a.c. HS * sliding scale insulin * hold oral diabetic medications * Optimize Tony inhibitors and statins. * Watch for hypoglycemia/hypoglycemic protocol ordered (10) Physical deconditioning: Code(s): R53.81 - Other malaise Status: Acute Assessment and Plan: * PT OT when clinically able to participate (11) Acute hyponatremia: Code(s): E87.1 - Hypo-osmolality and hyponatremia Status: Acute Assessment and Plan: * Na 123 secondary to congestive heart fail * Patient currently on Lasix * adjust based on hyponatremia workup * Nephrology consulted 04/04 * 124 NA * continue with Lasix * Fluid restriction * neuro checks 04/05 * NA 130 * continue with fluid restriction, Lasix and sodium tablets Plan Code status: Full code per patient DVT prophylaxis: Dabigatran Stress ulcer prophylaxis: Protonix 40 daily PT/OT notes: PT/OT when medically stable Disposition: patient continues admission to the medical unit for lumbar osteomyelitis with MRSA diskitis currently is on wait list for transfer to tertiary facility [facility] will require Infectious Disease long-term IV antibiotic therapy. will continue to wean patient's oxygen as tolerated he is planned for a left-sided thoracentesis today will need to continue admission until transfer. Time Spent With Patient Time with patient: 15 - 25 minutes Subjective Date/time seen: 04/05/24 09:21 Interval history: Patient is a 74-year-old male who was admitted to the medical unit currently being treated for osteomyelitis of the lumbar spine which has MRSA continue with IV vancomycin and waiting transfer to [facility] tertiary facility. 04/05/2024: Assumed Care Patient with mild back pain and mild SOB, denies SOB plan for LT sided Thoracentesis today tolerated right side. Na improved 130 patient is still on transfer list for [facility] will need infectious disease for long-term IV antibiotic therapy. will continue to wean oxygen as tolerated Review of Systems Review of Systems: Back pain, abdominal pain All systems reviewed & are unremarkable except as noted in HPI and below (HPI) Exam Narrative: General: Old fragile male who appears older than his age who is lethargic in no acute distress Lungs/Chest: Breath sounds diminished throughout on auscultation Cardiac: RRR. Normal S1 S2. No murmurs Circulation: Pulses 2+ and skin warm to tough Abdomen: Normal bowel sounds.. Morbidly obese, soft NT. ND. Extremities: No clubbing, cyanosis or edema. Warm bilateral pitting edema from : Nayak in place Neurologic: Follows commands. Moves all 4 extremities PERRL AO times 3 Skin: No Rash Objective Data Vital Signs Vital Signs: Vital Signs - 24 hr 04/04/24 09:47 04/04/24 09:47 04/04/24 09:55 Temperature Pulse Rate 60 60 Respiratory Rate 19 17 Blood Pressure Pulse Oximetry 91 Oxygen Delivery Nasal Cannula Oxygen Flow Rate 2 04/04/24 10:04 04/04/24 11:56 04/04/24 12:00 Temperature Pulse Rate 55 L 60 60 Respiratory Rate 20 Blood Pressure Pulse Oximetry 94 Oxygen Delivery Nasal Cannula Oxygen Flow Rate 2 04/04/24 12:00 04/04/24 12:00 04/04/24 14:00 Temperature 97.1 F L Pulse Rate 60 60 60 Respiratory Rate 20 Blood Pressure 122/51 L Pulse Oximetry 94 Oxygen Delivery Oxygen Flow Rate 04/04/24 14:13 04/04/24 15:33 04/04/24 15:33 Temperature 97.1 F L Pulse Rate 60 59 L 59 L Respiratory Rate 19 15 15 Blood Pressure 99/46 L Pulse Oximetry 92 92 Oxygen Delivery Nasal Cannula Oxygen Flow Rate 2 04/04/24 16:03 04/04/24 16:03 04/04/24 16:03 Temperature 97.1 F L Pulse Rate 58 L 58 L 58 L Respiratory Rate 22 H 22 H Blood Pressure 92/52 L Pulse Oximetry 92 92 Oxygen Delivery Nasal Cannula Oxygen Flow Rate 2 04/04/24 16:30 04/04/24 17:22 04/04/24 20:00 Temperature 97.6 F 98.4 F Pulse Rate 60 58 L 60 Respiratory Rate 20 20 Blood Pressure 147/95 H 97/41 L Pulse Oximetry 100 100 Oxygen Delivery Oxygen Flow Rate 04/04/24 20:00 04/04/24 20:50 04/04/24 20:51 Temperature Pulse Rate 58 L 53 L Respiratory Rate 18 Blood Pressure Pulse Oximetry 100 Oxygen Delivery Nasal Cannula Oxygen Flow Rate 2 04/04/24 21:00 04/04/24 21:12 04/04/24 23:43 Temperature 98.9 F Pulse Rate 56 L 55 L Respiratory Rate 18 18 Blood Pressure 114/66 Pulse Oximetry 100 100 Oxygen Delivery Nasal Cannula Oxygen Flow Rate 2 04/04/24 23:59 04/05/24 00:00 04/05/24 02:38 Temperature Pulse Rate 55 L 54 L 57 L Respiratory Rate 18 Blood Pressure Pulse Oximetry Oxygen Delivery Oxygen Flow Rate 04/05/24 04:00 04/05/24 04:00 04/05/24 05:09 Temperature 98.1 F Pulse Rate 59 L 60 60 Respiratory Rate 22 H Blood Pressure 102/43 L Pulse Oximetry 100 Oxygen Delivery Oxygen Flow Rate 04/05/24 07:15 Temperature Pulse Rate 86 Respiratory Rate 20 Blood Pressure Pulse Oximetry 90 Oxygen Delivery Room Air Oxygen Flow Rate Intake/Output Intake/Output: Intake & Output 04/02/24 04/03/24 04/04/24 04/05/24 23:59 23:59 23:59 23:59 Intake Total 1100 2110 450 50 Output Total 550 1900 3675 1400 Balance 550 291 [phone] Meds/Results Medications: Active Medications Generic Name Dose Route Start Last Admin Trade Name Freq PRN Reason Stop Dose Admin Acetaminophen 1,000 mg 03/16/24 02:11 04/03/24 21:07 Acetaminophen 500 Mg Tablet PO 1,000 mg Q8H PRN Administration fever or pain Albuterol/Ipratropium 3 ml 04/04/24 02:00 04/05/24 07:15 Ipratropium 0.5 Mg/Albuterol Sulfate 2.5 Mg Ampul.Neb 3 Ml INHALATION 3 ml Q6HRT SUNNY Administration Aspirin 81 mg 03/16/24 08:00 04/04/24 08:26 Aspirin 81 Mg Chewable Tablet PO 81 mg DAILY@0800 SUNNY Administration Dabigatran 150 mg 03/16/24 09:00 04/03/24 10:26 Dabigatran Etexilate 150 Mg Capsule PO Not Given Q12HR [facility] Dextrose 12.5 gm 03/13/24 21:39 Dextrose 50% 25 Gm/50 Ml Syringe IV PUSH PRN PRN Hypoglycemia Protocol Famotidine 20 mg 04/04/24 21:00 04/04/24 21:23 Famotidine 20 Mg Tablet PO 20 mg Q12HR SUNNY Administration Fenofibrate 145 mg 03/16/24 21:00 04/04/24 21:23 Fenofibrate Nanocrystallized 145 Mg Tablet PO 145 mg QHS SUNNY Administration Furosemide 40 mg 04/02/24 09:45 04/04/24 17:22 Furosemide Inj 40 Mg/4 Ml Vial IV PUSH 40 mg BID SUNNY Administration Glucagon 1 mg 03/13/24 21:39 Glucagon For Inj 1 Mg Vial IM PRN PRN Hypoglycemia Protocol Glucose 15 gm 03/13/24 21:39 Glucose Oral Gel 15 Gm Of Glucse In 37.5 Gm Tube PO PRN PRN Hypoglycemia Protocol Dextrose 1,000 mls @ 100 mls/hr 03/13/24 21:39 Dextrose 5% 1,000 Ml IVPB PRN PRN Hypoglycemia Protocol Vancomycin HCl 1,250 mg in 250 mls @ 166.667 mls/hr 04/04/24 19:00 04/04/24 20:55 Vancomycin 1,250 Mg/Ns 250 Ml IVPB Infused Q36H [facility] Infusion Cefepime HCl 2 gm in 50 mls @ 100 mls/hr 04/05/24 05:00 04/05/24 05:44 Maxipime 2 Gm/Ns 50 Ml IVPB Infused Q8HR [facility] Infusion Insulin Aspart 4 - 8 units 03/21/24 08:00 04/04/24 21:16 Insulin Aspart (*Bkc) 100 Units/Ml SUB-Q Not Given [facility] SUNNY Protocol Lactobacillus Acidophilus 1 tablet 03/16/24 09:00 04/04/24 17:22 Acidophilus/Bulgaricus Chewable Tablet PO 1 tablet BID SUNNY Administration Lidocaine 1 patch 03/26/24 16:10 04/04/24 08:24 Lidocaine 5% Patch TRANSDERM 1 patch DAILY SUNNY Administration Magnesium Hydroxide 30 ml 03/14/24 09:00 04/04/24 08:42 Magnesium Hydroxide Susp 30 Ml Udc PO 30 ml QAM SUNNY Administration Metoprolol Tartrate 6.25 mg 03/16/24 06:00 04/05/24 05:09 Metoprolol Tartrate 6.25 Mg Tablet PO Not Given Q6HR [facility]NY Orphenadrine Citrate 100 mg 03/14/24 22:24 04/01/24 21:17 Orphenadrine Citrate 100 Mg Tablet.Er PO 100 mg Q12HR PRN Administration Muscle Spasm Perflutren Lipid Microsphere 0 ml 04/03/24 10:04 Perflutren Lipid Microspheres 1.5 Ml Vial Diluted To 10 Ml Total Volume IV PUSH 04/06/24 10:04 ONCE PRN adequate visualization Protocol Polyethylene Glycol 17 gm 03/16/24 09:00 04/04/24 17:22 Polyethylene Glycol 3350 17 Gm Powd.Pack FEED TUBE 17 gm BID SUNNY Administration Rosuvastatin Calcium 10 mg 03/14/24 21:00 04/04/24 21:23 Rosuvastatin 10 Mg Tablet PO 10 mg BEDTIME SUNNY Administration Sodium Chloride 1 gm 03/24/24 09:00 04/04/24 17:22 Sodium Chloride 1 Gm Tablet PO 1 gm BID SUNNY Administration Sodium Chloride 10 ml 04/02/24 14:00 04/05/24 05:09 Central Line Flush IV PUSH 10 ml Q8HR SUNNY Administration Sodium Chloride 10 ml 04/02/24 13:32 Central Line Flush IV PUSH PRN PRN with TPN bag changes Sodium Chloride 20 ml 04/02/24 13:32 04/05/24 05:09 Central Line Flush IV PUSH 20 ml PRN PRN Administration after blood draws Radiology Results: ITS Impressions Abdomen/Pelvis CT 03/13/24 17:07 IMPRESSION: Large hiatal hernia. Findings within the liver and spleen suggesting prior granulomatous disease. Fecal stasis within the colon and distending the rectum suggesting fecal impaction. Findings at the level of the inferior endplate of L3 which demonstrate pr ogression from previous examination, possibly representing discitis/osteomyelitis for which clinical and serologic correlation is needed. Head CT 03/13/24 19:07 Impression: No acute intracranial hemorrhage or suspicious mass effect. Chest CT 04/02/24 09:09 Impression: Moderate to large bilateral pleural effusions with extensive bibasilar atelectatic changes and possible minimal pulmonary edema. No definite CT evidence for pneumonia, but underlying pneumonia cannot be completely excluded. Correlate clinically. Progressing erosive changes about the T8-T9 disc space. This could reflect locally advanced severe degenerative spondylitic change, versus possibly renal failure associated spondyloarthropathy or infectious osteomyelitis/discitis. Clinical correlation required. Thoracentesis Ultrasound 04/04/24 15:45 IMPRESSION: 1. Successful ultrasound-guided right-sided thoracentesis yielding 850 mL of thin yellow fluid. Chest X-Ray 04/05/24 06:25 Impression: 1: Cardiomegaly with unchanged pulmonary edema. Labs Labs: Laboratory Results - last 24 hr 04/04/24 04/04/24 04/04/24 04:14 08:15 12:00 WBC RBC Hgb Hct MCV MCH MCHC RDW Plt Count MPV PT 21.6 H INR 1.8 APTT 100.9 H Sodium Potassium Chloride Carbon Dioxide Anion Gap BUN Creatinine Estim Creat Clear Calc Estimated GFR Glucose POC Capillary Glucose 103 Calcium Phosphorus Magnesium Total Bilirubin AST ALT Alkaline Phosphatase Total Protein 5.3 L Albumin Pleural Fluid Source Pleural Color Pleural Appearance Pleural pH Pleural RBC Pleural Nuc Cells Pleural Neutrophils Pleural Lymphocytes Pleural Monocytes Pleural Macrophages 04/04/24 04/04/24 04/04/24 15:05 17:12 20:12 WBC RBC Hgb Hct MCV MCH MCHC RDW Plt Count MPV PT INR APTT Sodium Potassium Chloride Carbon Dioxide Anion Gap BUN Creatinine Estim Creat Clear Calc Estimated GFR Glucose POC Capillary Glucose 110 H 135 H Calcium Phosphorus Magnesium Total Bilirubin AST ALT Alkaline Phosphatase Total Protein Albumin Pleural Fluid Source Pleural fluid Pleural Color Yellow Pleural Appearance Hazy Pleural pH > 7.500 H Pleural RBC < 2000 Pleural Nuc Cells 908 Pleural Neutrophils 15 Pleural Lymphocytes 11 Pleural Monocytes 4 Pleural Macrophages 70 04/05/24 04/05/24 05:07 07:59 WBC 8.6 RBC 2.85 L Hgb 7.4 L Hct 24.3 L MCV 85.3 MCH 26.0 MCHC 30.5 L RDW 18.8 H Plt Count 260 MPV 9.4 PT INR APTT Sodium 130 L Potassium 4.1 Chloride 95 L Carbon Dioxide 32 H Anion Gap 3 L BUN 27 H Creatinine 0.78 Estim Creat Clear Calc 82 Estimated GFR > 60 Glucose 111 H POC Capillary Glucose 119 H Calcium 8.6 Phosphorus 2.5 Magnesium 2.0 Total Bilirubin 0.5 AST 40 ALT 27 Alkaline Phosphatase 102 Total Protein 6.0 L Albumin 2.7 L Pleural Fluid Source Pleural Color Pleural Appearance Pleural pH Pleural RBC Pleural Nuc Cells Pleural Neutrophils Pleural Lymphocytes Pleural Monocytes Pleural Macrophages Quality VTE Prophylaxis VTE prophylaxis: pharmacologic ordered -Patient's previous records reviewed on admission -ER notes reviewed in detail on admission -discussed all findings and current treatment plan with patient/Family/POA -Consultations reviewed for recommendations -Patient's disposition for safe discharge discussed with caser up Dictation performed by [employer] direct speech recognition software, therefore emr implementation specialist variants and typographical errors may occur. Hospitalist MIPS Advance Care Plan I have confirmed that the patient's Advanced Care Plan is present, code status is documented, or surrogate decision maker is listed in patient medical record.: Yes Medication Reconciliation I have utilized all available resources to obtain, update and review the patients current medications (includes all prescriptions, OTC, herbals, cannabis, and nutritional supplements).: Yes The patient is not eligible for med reconciliation; the patient is in a emergent medical situation where delaying treatment would jeopardize the patients health.: No
[2024-04-05] MEDS: FUROSEMIDE INJ 40 MG/4 ML VIAL IV PUSH ×2 (09:30→17:31)
[2024-04-05] MEDS: METOPROLOL TARTRATE 6.25 MG TABLET PO ×2 (12:03→17:37)
[2024-04-05 12:05] LABS: Glucose Point of Care 114 mg/dl (65-105)
--- NOTE | 2024-04-05 13:08 | P.PNNP_ITS ---
Progress Note: A&P Assessment and Plan (1) Hyponatremia: Code(s): E87.1 - Hypo-osmolality and hyponatremia Status: Acute Assessment and Plan: * acute on chronic * present as far back as December 2023 if not longer * sodium usually runs around 126 - 136mmol/L * evidence would suggest due to volume overload given clinical picture * evaluation to date noted: * CXR and CT of chest with pleural effusions * CT of head negative * urine electrolytes prerenal * TSH okay * cortisol within normal limits * SPEP/UPEP pending * agree with diuresis * already started on salt tabs * coordinate salt tab administration with IV lasix to promote free water excretion * on fluid restriction * follow trend of repeat sodium levels (2) Osteomyelitis of lumbar spine: Code(s): M46.26 - Osteomyelitis of vertebra, lumbar region Status: Acute Assessment and Plan: * blood culutres with MRSA * repeat blood culture no growth until today * patient recently managed for MRSA endocarditis * on IV vancomycin * awaiting transfer to [facility] * repeat echo showing no valvular vegetation * pain control (3) Bacteremia: Code(s): R78.81 - Bacteremia Status: Acute Assessment and Plan: * blood culture with MRSA * repeat echocardiogram with no valvular vegetation * presumed source = #2 * remains on IV vancomycin (4) Acute hypoxic on chronic hypercapnic respiratory failure: Code(s): J96.01 - Acute respiratory failure with hypoxia; J96.12 - Chronic respiratory failure with hypercapnia Status: Acute Assessment and Plan: * secondary to volume overload/pulmonary edema * slow improvement with IV diuresis * recent CT chest showing moderate to large bilateral pleural effusions * plan for thoracentesis * supplemental oxygen p.r.n. * also on fluid restriction (but not really eating/drinking much) (5) Acute exacerbation of CHF (congestive heart failure): Code(s): I50.9 - Heart failure, unspecified Status: Acute Assessment and Plan: * felt to be acute on chronic diastolic heart failure * CT chest showing bilateral moderate to large pleural effusions * Cardiology following * continue diuresis as tolerated * follow daily weights, I/Os, and respiratory status (6) Hypertension: Code(s): I10 - Essential (primary) hypertension Status: Acute Assessment and Plan: * follow trend of hemodynamics * BP medications with parameters given soft BP at this time * follow trend of hemodynamics (7) Atrial fibrillation: Onset Date: 04/20/17 Code(s): I48.91 - Unspecified atrial fibrillation Status: Chronic Assessment and Plan: * rate control strategy * on anticoagulation (8) Type 2 diabetes mellitus with hyperglycemia, with long-term current use of insulin: Code(s): E11.65 - Type 2 diabetes mellitus with hyperglycemia; Z79.4 - stave bolt equalizer (current) use of insulin Status: Acute Assessment and Plan: * follow accu-cheks * glycemic control per hospitalist Will continue to follow. L Subjective Date/time seen: 04/05/24 13:08 Interval history: Follow-up for acute hyponatremia. Sodium has improved in the last 24 hours with current interventions/therapy to date; s/p right thoracentesis yesterday and left thoracentesis earlier today -- tolerated these interventions reasonably well; no apparent distress noted; improvement noted in breathing/respiratory status. Exam 2 Narrative: General: frail and elderly male in NAD Heart: normal S1 and S2; no rub Lungs: diminished and decreased at bases Abdomen: soft, nontender, nondistended, positive bowel sounds Extremities: no cyanosis or clubbing; 1+ edema Skin: warm and intact Objective Data Vital Signs Vital Signs: Vital Signs Temp Pulse Resp BP Pulse Ox O2 Del Method O2 Flow Rate 04/05/24 13:05 97.4 F L 68 20 140/49 L 96 04/05/24 12:03 66 04/05/24 12:01 66 04/05/24 09:06 97.5 F L 63 20 136/50 L 91 04/05/24 08:03 61 04/05/24 07:50 20 91 Room Air 04/05/24 07:15 86 20 90 Room Air 04/05/24 05:09 60 04/05/24 04:00 98.1 F 60 22 H 102/43 L 100 04/05/24 04:00 59 L 04/05/24 02:38 57 L 18 04/05/24 00:00 54 L 04/04/24 23:59 55 L 04/04/24 23:43 98.9 F 55 L 18 114/66 100 04/04/24 21:12 100 Nasal Cannula 2 04/04/24 21:00 56 L 18 04/04/24 20:51 53 L 18 04/04/24 20:50 100 Nasal Cannula 2 04/04/24 20:00 58 L 04/04/24 20:00 98.4 F 60 20 97/41 L 100 04/04/24 17:22 58 L Intake/Output Intake/Output: Intake & Output 04/02/24 04/03/24 04/04/24 04/05/24 23:59 23:59 23:59 23:59 Intake Total 1100 2110 450 100 Output Total 550 1900 3675 2250 Balance 550 210 -3225 -2150 Meds/Results Medications: Active Medications Generic Name Dose Route Start Last Admin Trade Name Freq PRN Reason Stop Dose Admin Acetaminophen 1,000 mg 03/16/24 02:11 04/03/24 21:07 Acetaminophen 500 Mg Tablet PO 1,000 mg Q8H PRN Administration fever or pain Albuterol/Ipratropium 3 ml 04/04/24 02:00 04/05/24 13:10 Ipratropium 0.5 Mg/Albuterol Sulfate 2.5 Mg Ampul.Neb 3 Ml INHALATION 3 ml Q6HRT SUNNY Administration Aspirin 81 mg 03/16/24 08:00 04/05/24 09:13 Aspirin 81 Mg Chewable Tablet PO Not Given DAILY@0800 SUNNY Dabigatran 150 mg 03/16/24 09:00 04/03/24 10:26 Dabigatran Etexilate 150 Mg Capsule PO Not Given Q12HR SUNNY Dextrose 12.5 gm 03/13/24 21:39 Dextrose 50% 25 Gm/50 Ml Syringe IV PUSH PRN PRN Hypoglycemia Protocol Famotidine 20 mg 04/04/24 21:00 04/05/24 09:21 Famotidine 20 Mg Tablet PO Not Given Q12HR SUNNY Fenofibrate 145 mg 03/16/24 21:00 04/04/24 21:23 Fenofibrate Nanocrystallized 145 Mg Tablet PO 145 mg QHS SUNNY Administration Furosemide 40 mg 04/02/24 09:45 04/05/24 09:30 Furosemide Inj 40 Mg/4 Ml Vial IV PUSH 40 mg BID SUNNY Administration Glucagon 1 mg 03/13/24 21:39 Glucagon For Inj 1 Mg Vial IM PRN PRN Hypoglycemia Protocol Glucose 15 gm 03/13/24 21:39 Glucose Oral Gel 15 Gm Of Glucse In 37.5 Gm Tube PO PRN PRN Hypoglycemia Protocol Dextrose 1,000 mls @ 100 mls/hr 03/13/24 21:39 Dextrose 5% 1,000 Ml IVPB PRN PRN Hypoglycemia Protocol Vancomycin HCl 1,250 mg in 250 mls @ 166.667 mls/hr 04/04/24 19:00 04/04/24 20:55 Vancomycin 1,250 Mg/Ns 250 Ml IVPB Infused Q36H SUNNY Infusion Cefepime HCl 2 gm in 50 mls @ 100 mls/hr 04/05/24 05:00 04/05/24 14:50 Maxipime 2 Gm/Ns 50 Ml IVPB Infused Q8HR SUNNY Infusion Insulin Aspart 4 - 8 units 03/21/24 08:00 04/05/24 12:05 Insulin Aspart (*Bkc) 100 Units/Ml SUB-Q Not Given [facility] Protocol Lactobacillus Acidophilus 1 tablet 03/16/24 09:00 04/05/24 09:17 Acidophilus/Bulgaricus Chewable Tablet PO Not Given BID SUNNY Lidocaine 1 patch 03/26/24 16:10 04/05/24 09:23 Lidocaine 5% Patch TRANSDERM Not Given DAILY SUNNY Magnesium Hydroxide 30 ml 03/14/24 09:00 04/05/24 09:23 Magnesium Hydroxide Susp 30 Ml Udc PO Not Given QAM SUNNY Metoprolol Tartrate 6.25 mg 03/16/24 06:00 04/05/24 12:03 Metoprolol Tartrate 6.25 Mg Tablet PO 6.25 mg Q6HR SUNNY Administration Orphenadrine Citrate 100 mg 03/14/24 22:24 04/01/24 21:17 Orphenadrine Citrate 100 Mg Tablet.Er PO 100 mg Q12HR PRN Administration Muscle Spasm Perflutren Lipid Microsphere 0 ml 04/03/24 10:04 Perflutren Lipid Microspheres 1.5 Ml Vial Diluted To 10 Ml Total Volume IV PUSH 04/06/24 10:04 ONCE PRN adequate visualization Protocol Polyethylene Glycol 17 gm 03/16/24 09:00 04/05/24 09:24 Polyethylene Glycol 3350 17 Gm Powd.Pack FEED TUBE Not Given BID SUNNY Rosuvastatin Calcium 10 mg 03/14/24 21:00 04/04/24 21:23 Rosuvastatin 10 Mg Tablet PO 10 mg BEDTIME SUNNY Administration Sodium Chloride 1 gm 03/24/24 09:00 04/05/24 09:24 Sodium Chloride 1 Gm Tablet PO Not Given BID SUNNY Sodium Chloride 10 ml 04/02/24 14:00 04/05/24 14:22 Central Line Flush IV PUSH 10 ml Q8HR SUNNY Administration Sodium Chloride 10 ml 04/02/24 13:32 Central Line Flush IV PUSH PRN PRN with TPN bag changes Sodium Chloride 20 ml 04/02/24 13:32 04/05/24 05:09 Central Line Flush IV PUSH 20 ml PRN PRN Administration after blood draws Radiology Results: ITS Impressions Abdomen/Pelvis CT 03/13/24 17:07 IMPRESSION: Large hiatal hernia. Findings within the liver and spleen suggesting prior granulomatous disease. Fecal stasis within the colon and distending the rectum suggesting fecal impaction. Findings at the level of the inferior endplate of L3 which demonstrate progression from previous examination, possibly representing discitis/osteomyelitis for which clinical and serologic correlation is needed. Head CT 03/13/24 19:07 Impression: No acute intracranial hemorrhage or suspicious mass effect. Chest CT 04/02/24 09:09 Impression: Moderate to large bilateral pleural effusions with extensive bibasilar atelectatic changes and possible minimal pulmonary edema. No definite CT evidence for pneumonia, but underlying pneumonia cannot be completely excluded. Correlate clinically. Progressing erosive changes about the T8-T9 disc space. This could reflect locally advanced severe degenerative spondylitic change, versus possibly renal failure associated spondyloarthropathy or infectious osteomyelitis/discitis. Clinical correlation required. Chest X-Ray 04/05/24 11:54 IMPRESSION: No left-sided pneumothorax following left-sided thoracentesis, as detailed above. Thoracentesis Ultrasound 04/05/24 11:57 IMPRESSION: 1. Technically successful ultrasound-guided thoracentesis yielding 850 mL of thin, dark yellow fluid. The fluid was sent for the requested studies. Labs Labs: Laboratory Tests 04/05/24 05:07 04/05/24 05:07 Calcium 8.6 Phosphorus 2.5 Magnesium 2.0 Total Bilirubin 0.5 AST 40 ALT 27 Alkaline Phosphatase 102 Total Protein 6.0 L Albumin 2.7 L Microbiology 04/04/24 15:05 Pleural Fluid Gram Stain - Final 04/04/24 15:05 Pleural Fluid Anaerobic Culture - Preliminary
[2024-04-05 13:39] LABS: pH Pleural Fluid > 7.500 (7.210-7.500)
[2024-04-05 17:32] LABS: Glucose Point of Care 103 mg/dl (65-105)
[2024-04-05] MEDS: SODIUM CHLORIDE 1 GM TABLET PO (17:37)
[2024-04-05] MEDS: ACIDOPHILUS/BULGARICUS CHEWABLE TABLET 1 TABLET PO (17:37)
[2024-04-05 20:08] LABS: Abnormal Protein Band 1 0.1 g/dL (NONE DETECTED); Albumin 2.2 g/dL (3.8-4.8); Alpha 1 Globulin 0.5 g/dL (0.2-0.3); Alpha 2 Globulin 0.8 g/dL (0.5-0.9); Beta 1 Globulin 0.4 g/dL (0.4-0.6)
[2024-04-05 21:07] LABS: Glucose Point of Care 100 mg/dl (65-105)
[2024-04-06] VITALS (28 sets, daily range): BP systolic 86–127; BP diastolic 30–71; PULSE 57–119; RESP 16–24; TEMP 36.3–37.1; O2SAT 95–100
[2024-04-06] MEDS: SODIUM CHLORIDE 0.9% IV 250 ML IV CONT (01:01)
[2024-04-06] MEDS: IPRATROPIUM 0.5 MG/ALBUTEROL SULFATE 2.5 MG AMPUL.NEB 3 ML INHALATION ×4 (01:30→20:39)
[2024-04-06] MEDS: SODIUM CHLORIDE 0.9% IV 1,000 ML 999 ML IV CONT (03:51)
[2024-04-06] MEDS: CENTRAL LINE FLUSH 10 ML IV PUSH ×3 (05:45→22:07)
[2024-04-06] MEDS: CENTRAL LINE FLUSH 20 ML IV PUSH (05:46)
[2024-04-06] MEDS: CEFEPIME 2 GM/NS 50 ML 2 GM/50 ML BAG IVPB ×3 (05:52→22:06)
[2024-04-06 06:02] LABS: Hemoglobin 7.6 g/dL (14.0-18.0); Mean Corpuscular HGB Conc 30.4 g/dl (32-36); Mean Corpuscular Hemoglobin 25.9 pg (26-34); Mean Corpuscular Volume 85.3 fl (80-100); Mean Platelet Volume 9.6 fl (7.4-10.4); Platelet Count Result 258 k/mm3 (150-375); Red Blood Count 2.93 M/mm3 (4.6-6.20); Red Cell Distribution Width 19.4 % (11.5-14.5); White Blood Count 8.5 K/mm3 (4.5-10.0)
[2024-04-06 06:14] LABS: Alanine Aminotransferase 21 U/L (6-50); Albumin Level 2.5 g/dL (3.5-5.1); Alkaline Phosphatase 100 U/L (38-126); Anion Gap 9 mmol/L (4-12); Aspartate Amino Transferase 48 U/L (17-59); Bilirubin,Total 0.7 mg/dL (0.2-1.3); Blood Urea Nitrogen 22 mg/dL (9-20); Calcium 8.8 mg/dL (8.4-10.2); Carbon Dioxide 28 mmol/L (22-30); Chloride 98 mmol/L (98-107); Estimated CRCL calculation 86 ml/min; Estimated Glomerular Filt Rate > 60; Glucose 94 mg/dL (65-110); Magnesium 1.8 mg/dL (1.6-2.3); Phosphorus 2.1 mg/dL (2.5-4.5); Potassium 3.3 mmol/L (3.4-5.0); Sodium 135 mmol/L (137-145)
[2024-04-06] MEDS: VANCOMYCIN 1,250 MG/NS 250 ML 1,250 MG/250 ML BAG 166.67 MG IVPB (06:15)
[2024-04-06 08:11] LABS: Glucose Point of Care 98 mg/dl (65-105)
[2024-04-06] MEDS: ASPIRIN 81 MG CHEWABLE TABLET PO (08:54)
--- NOTE | 2024-04-06 09:07 | PC.NURSE ---
update given to [place] transfer line, reviewed last 24 hour vitals
[2024-04-06] MEDS: MAGNESIUM HYDROXIDE SUSP 30 ML UDC PO (09:48)
[2024-04-06] MEDS: polyethylene glycoL 3350 17 GM POWD.PACK FEED TUBE (09:52)
[2024-04-06] MEDS: ACIDOPHILUS/BULGARICUS CHEWABLE TABLET 1 TABLET PO (09:53)
[2024-04-06] MEDS: FAMOTIDINE 20 MG TABLET PO ×2 (09:55→22:10)
[2024-04-06] MEDS: LIDOCAINE 5% PATCH 1 PATCH TRANSDERM (09:57)
[2024-04-06 11:48] LABS: Glucose Point of Care 110 mg/dl (65-105)
--- NOTE | 2024-04-06 12:14 | P.PNIM_ITS ---
Progress Note: A&P Assessment and Plan (1) Osteomyelitis of lumbar spine: Code(s): M46.26 - Osteomyelitis of vertebra, lumbar region Status: Acute Assessment and Plan: * Blood culture positive MRSA and repeat blood culture no growth until today * patient recently managed for MRSA endocarditis * Cont Vanc and cefepime * Patient is waiting for a bed assignment for transfer to [facility] * Repeat echo showing no valvular vegetation * pain control (2) Discitis of lumbar region: Code(s): M46.46 - Discitis, unspecified, lumbar region Status: Acute Assessment and Plan: See Above (3) Bacteremia: Code(s): R78.81 - Bacteremia Status: Acute Assessment and Plan: * MRSA * echocardiogram with no valvular vegetation * will continue with IV vancomycin pending transfer to tertiary facility (4) Acute hypoxic on chronic hypercapnic respiratory failure: Code(s): J96.01 - Acute respiratory failure with hypoxia; J96.12 - Chronic respiratory failure with hypercapnia Status: Acute Assessment and Plan: * pulmonary edema * improved with IV Lasix * CT chest showing moderate to large bilateral pleural effusions * IR for thoracentesis hold AC for 24 hours scheduled for 04/04 * oxygen p.r.n. * fluid restriction 04/05 * LT sided thoracentesis scheduled for today * continue with IV Lasix and spironolactone * encouraged the use of incentive spirometer (5) Acute exacerbation of CHF (congestive heart failure): Code(s): I50.9 - Heart failure, unspecified Status: Acute Assessment and Plan: Acute on chronic diastolic heart failure * CT chest showing bilateral moderate to large pleural effusions * cardiology consulted * IV Lasix b.i.d. * monitor renal function during diuresis LVEF 60-65%results or if applicable * echocardiogram LVEF 50-50% Diastolic * Optimize Tony inhibitors, beta-blockers, ARNI * Daily weight. * fluid restriction * Low sodium diet 04/06 * Transition back to PO Lasix (6) Hypertension: Code(s): I10 - Essential (primary) hypertension Status: Acute Assessment and Plan: * Home medications on hold * Patient with soft BP likely secondary to IV lasix * Monitor BP per unit protocol * resume home medications as tolerated (7) CAD (coronary artery disease), autologous vein bypass graft: Code(s): I25.810 - Atherosclerosis of coronary artery bypass graft(s) without angina pectoris Status: Acute Assessment and Plan: * resumed ASA * resume fenofibrate (8) Atrial fibrillation: Onset Date: 04/20/17 Code(s): I48.91 - Unspecified atrial fibrillation Status: Chronic Assessment and Plan: * Rate controlled * AC resumed * cardiac monitoring (9) Type 2 diabetes mellitus with hyperglycemia, with long-term current use of insulin: Code(s): E11.65 - Type 2 diabetes mellitus with hyperglycemia; Z79.4 - custodial (current) use of insulin Status: Acute Assessment and Plan: * Accu-Cheks a.c. HS * sliding scale insulin * hold oral diabetic medications * Optimize Tony inhibitors and statins. * Watch for hypoglycemia/hypoglycemic protocol ordered (10) Physical deconditioning: Code(s): R53.81 - Other malaise Status: Acute Assessment and Plan: * PT OT when clinically able to participate (11) Acute hyponatremia: Code(s): E87.1 - Hypo-osmolality and hyponatremia Status: Acute Assessment and Plan: * Na 123 secondary to congestive heart fail * Patient currently on Lasix * adjust based on hyponatremia workup * Nephrology consulted 04/04 * 124 NA * continue with Lasix * Fluid restriction * neuro checks 04/05 * NA 130 * continue with fluid restriction, Lasix and sodium tablets 04/06 * NA 135 Plan Code status: Full code per patient DVT prophylaxis: Dabigatran Stress ulcer prophylaxis: Protonix 40 daily PT/OT notes: PT/OT when medically stable Disposition: patient continues admission to the medical unit for lumbar osteomyelitis with MRSA diskitis currently is on wait list for transfer to tertiary facility [facility] will require Infectious Disease long-term IV antibiotic therapy. Time Spent With Patient Time with patient: 15 - 25 minutes Subjective Date/time seen: 04/06/24 12:14 Interval history: Patient is a 74-year-old male who was admitted to the medical unit currently being treated for osteomyelitis of the lumbar spine which has MRSA continue with IV vancomycin and waiting transfer to [facility] tertiary facility. 04/06/2024: Assumed Care Patient with mild back pain denies SOB or CP Na improved 135 patient is still on transfer list for [facility] will need infectious disease for long-term IV antibiotic therapy. Patient with soft BP overnight given 250 bolus. Still lethargic but breathing easier post bilateral thoracentesis. Will transition to PO Lasix Review of Systems Review of Systems: Back pain, abdominal pain All systems reviewed & are unremarkable except as noted in HPI and below (HPI) Exam Narrative: General: Old fragile male who appears older than his age who is lethargic in no acute distress Lungs/Chest: Breath sounds diminished throughout on auscultation Cardiac: RRR. Normal S1 S2. No murmurs Circulation: Pulses 2+ and skin warm to tough Abdomen: Normal bowel sounds.. Morbidly obese, soft NT. ND. Extremities: No clubbing, cyanosis or edema. Warm bilateral pitting edema from : Nayak in place Neurologic: Follows commands. Moves all 4 extremities PERRL AO times 3 Skin: No Rash Objective Data Vital Signs Vital Signs: Vital Signs - 24 hr 04/05/24 13:15 04/05/24 16:03 04/05/24 17:37 Temperature 97.4 F L Pulse Rate 68 62 66 Respiratory Rate 20 Blood Pressure 140/49 L Pulse Oximetry 96 Oxygen Delivery Fraction of Inspired Oxygen 04/05/24 19:33 04/05/24 20:00 04/05/24 21:15 Temperature Pulse Rate 51 L Respiratory Rate Blood Pressure Pulse Oximetry 94 Oxygen Delivery Room Air Room Air Fraction of Inspired Oxygen 21 04/05/24 21:57 04/06/24 00:00 04/06/24 00:19 Temperature 97.8 F 98.7 F Pulse Rate 66 57 L 64 Respiratory Rate 18 24 H Blood Pressure 132/46 L 86/46 L Pulse Oximetry 96 98 Oxygen Delivery Fraction of Inspired Oxygen 04/06/24 00:35 04/06/24 01:30 04/06/24 01:37 Temperature Pulse Rate 64 59 L 63 Respiratory Rate 18 18 Blood Pressure Pulse Oximetry Oxygen Delivery Fraction of Inspired Oxygen 04/06/24 02:00 04/06/24 03:15 04/06/24 04:00 Temperature 98.7 F Pulse Rate 68 63 Respiratory Rate 24 H Blood Pressure 108/50 L 90/42 L Pulse Oximetry 97 Oxygen Delivery Fraction of Inspired Oxygen 04/06/24 05:44 04/06/24 06:00 04/06/24 07:42 Temperature 98.7 F Pulse Rate 66 65 Respiratory Rate 18 Blood Pressure 127/38 L Pulse Oximetry 100 95 Oxygen Delivery Room Air Fraction of Inspired Oxygen 04/06/24 07:42 04/06/24 07:51 04/06/24 07:52 Temperature 98.1 F Pulse Rate 67 61 68 Respiratory Rate 20 20 24 H Blood Pressure 108/30 L Pulse Oximetry 100 Oxygen Delivery Fraction of Inspired Oxygen Intake/Output Intake/Output: Intake & Output 04/03/24 04/04/24 04/05/24 04/06/24 23:59 23:59 23:59 23:59 Intake Total 2110 351 082 0941 Output Total 1900 3675 3900 1900 Balance 121 -7732 -9456 -796 Meds/Results Medications: Active Medications Generic Name Dose Route Start Last Admin Trade Name Freq PRN Reason Stop Dose Admin Acetaminophen 1,000 mg 03/16/24 02:11 04/03/24 21:07 Acetaminophen 500 Mg Tablet PO 1,000 mg Q8H PRN Administration fever or pain Albuterol/Ipratropium 3 ml 04/04/24 02:00 04/06/24 07:41 Ipratropium 0.5 Mg/Albuterol Sulfate 2.5 Mg Ampul.Neb 3 Ml INHALATION 3 ml Q6HRT SUNNY Administration Aspirin 81 mg 03/16/24 08:00 04/06/24 08:54 Aspirin 81 Mg Chewable Tablet PO 81 mg DAILY@0800 SUNNY Administration Dabigatran 150 mg 03/16/24 09:00 04/03/24 10:26 Dabigatran Etexilate 150 Mg Capsule PO Not Given Q12HR SUNNY Dextrose 12.5 gm 03/13/24 21:39 Dextrose 50% 25 Gm/50 Ml Syringe IV PUSH PRN PRN Hypoglycemia Protocol Famotidine 20 mg 04/04/24 21:00 04/06/24 09:55 Famotidine 20 Mg Tablet PO 20 mg Q12HR SUNNY Administration Fenofibrate 145 mg 03/16/24 21:00 04/05/24 21:32 Fenofibrate Nanocrystallized 145 Mg Tablet PO Not Given QHS SUNNY Furosemide 40 mg 04/02/24 09:45 04/05/24 17:31 Furosemide Inj 40 Mg/4 Ml Vial IV PUSH 40 mg BID SUNNY Administration Glucagon 1 mg 03/13/24 21:39 Glucagon For Inj 1 Mg Vial IM PRN PRN Hypoglycemia Protocol Glucose 15 gm 03/13/24 21:39 Glucose Oral Gel 15 Gm Of Glucse In 37.5 Gm Tube PO PRN PRN Hypoglycemia Protocol Dextrose 1,000 mls @ 100 mls/hr 03/13/24 21:39 Dextrose 5% 1,000 Ml IVPB PRN PRN Hypoglycemia Protocol Vancomycin HCl 1,250 mg in 250 mls @ 166.667 mls/hr 04/04/24 19:00 04/06/24 06:15 Vancomycin 1,250 Mg/Ns 250 Ml IVPB 166.67 mls/hr Q36H SUNNY Administration Cefepime HCl 2 gm in 50 mls @ 100 mls/hr 04/05/24 05:00 04/06/24 06:52 Maxipime 2 Gm/Ns 50 Ml IVPB Infused Q8HR [facility] Infusion Insulin Aspart 4 - 8 units 03/21/24 08:00 04/06/24 12:00 Insulin Aspart (*Bkc) 100 Units/Ml SUB-Q Not Given [facility] Protocol Lactobacillus Acidophilus 1 tablet 03/16/24 09:00 04/06/24 09:53 Acidophilus/Bulgaricus Chewable Tablet PO 1 tablet BID SUNNY Administration Lidocaine 1 patch 03/26/24 16:10 04/06/24 09:57 Lidocaine 5% Patch TRANSDERM 1 patch DAILY SUNNY Administration Magnesium Hydroxide 30 ml 03/14/24 09:00 04/06/24 09:48 Magnesium Hydroxide Susp 30 Ml Udc PO 30 ml QAM SUNNY Administration Metoprolol Tartrate 6.25 mg 03/16/24 06:00 04/06/24 05:44 Metoprolol Tartrate 6.25 Mg Tablet PO Not Given Q6HR SUNNY Orphenadrine Citrate 100 mg 03/14/24 22:24 04/01/24 21:17 Orphenadrine Citrate 100 Mg Tablet.Er PO 100 mg Q12HR PRN Administration Muscle Spasm Polyethylene Glycol 17 gm 03/16/24 09:00 04/06/24 09:52 Polyethylene Glycol 3350 17 Gm Powd.Pack FEED TUBE 17 gm BID SUNNY Administration Rosuvastatin Calcium 10 mg 03/14/24 21:00 04/05/24 21:32 Rosuvastatin 10 Mg Tablet PO Not Given BEDTIME SUNNY Sodium Chloride 1 gm 03/24/24 09:00 04/05/24 17:37 Sodium Chloride 1 Gm Tablet PO 1 gm BID SUNNY Administration Sodium Chloride 10 ml 04/02/24 14:00 04/06/24 05:45 Central Line Flush IV PUSH 10 ml Q8HR SUNNY Administration Sodium Chloride 10 ml 04/02/24 13:32 Central Line Flush IV PUSH PRN PRN with TPN bag changes Sodium Chloride 20 ml 04/02/24 13:32 04/06/24 05:46 Central Line Flush IV PUSH 20 ml PRN PRN Administration after blood draws Radiology Results: ITS Impressions Abdomen/Pelvis CT 03/13/24 17:07 IMPRESSION: Large hiatal hernia. Findings within the liver and spleen suggesting prior granulomatous disease. Fecal stasis within the colon and distending the rectum suggesting fecal impaction. Findings at the level of the inferior endplate of L3 which demonstrate progression from previous examination, possibly representing discitis/osteomyelitis for which clinical and serologic correlation is needed. Head CT 03/13/24 19:07 Impression: No acute intracranial hemorrhage or suspicious mass effect. Chest CT 04/02/24 09:09 Impression: Moderate to large bilateral pleural effusions with extensive bibasilar atelectatic changes and possible minimal pulmonary edema. No definite CT evidence for pneumonia, but underlying pneumonia cannot be completely excluded. Correlate clinically. Progressing erosive changes about the T8-T9 disc space. This could reflect locally advanced severe degenerative spondylitic change, versus possibly renal failure associated spondyloarthropathy or infectious osteomyelitis/discitis. Clinical correlation required. Chest X-Ray 04/05/24 11:54 IMPRESSION: No left-sided pneumothorax following left-sided thoracentesis, as detailed above. Thoracentesis Ultrasound 04/05/24 11:57 IMPRESSION: 1. Technically successful ultrasound-guided thoracentesis yielding 850 mL of thin, dark yellow fluid. The fluid was sent for the requested studies. Labs Labs: Laboratory Results - last 24 hr 04/03/24 04/04/24 04/05/24 06:51 04:14 11:44 WBC RBC Hgb Hct MCV MCH MCHC RDW Plt Count MPV Sodium Potassium Chloride Carbon Dioxide Anion Gap BUN Creatinine Estim Creat Clear Calc Estimated GFR Glucose POC Capillary Glucose Calcium Phosphorus Magnesium Total Bilirubin AST ALT Alkaline Phosphatase Total Protein Albumin 2.2 L Uaxpn-3-Ldkotojsh 0.5 H Bftvr-7-Xdedhnvvj 0.8 Bgqc-0-Pufpdndo 0.4 Uofs-6-Rzxufify 0.5 Gamma Globulins 1.0 Abnorm Protein Band 1 0.1 H PEP Interpretation See note Urine Albumin 40 U Pyvaw-8-Kwvejhsk 5 U Dzebd-2-Crxshhea 15 U Beta Globulin 25 U Gamma Globulin 16 Urine PEP Interpret See note Pleural pH > 7.500 H 04/05/24 04/05/24 04/05/24 12:02 16:43 20:34 WBC RBC Hgb Hct MCV MCH MCHC RDW Plt Count MPV Sodium Potassium Chloride Carbon Dioxide Anion Gap BUN Creatinine Estim Creat Clear Calc Estimated GFR Glucose POC Capillary Glucose 114 H 103 100 Calcium Phosphorus Magnesium Total Bilirubin AST ALT Alkaline Phosphatase Total Protein Albumin Ywege-6-Vqkvezmxq Tochd-5-Nnollwfnt Mbxr-3-Yeesuoeu Xpzc-9-Utmflisq Gamma Globulins Abnorm Protein Band 1 PEP Interpretation Urine Albumin U Suerq-7-Vyvqivkj U Oopkp-0-Vsysnshq U Beta Globulin U Gamma Globulin Urine PEP Interpret Pleural pH 04/06/24 04/06/24 04/06/24 05:42 07:39 11:41 WBC 8.5 RBC 2.93 L Hgb 7.6 L Hct 25.0 L MCV 85.3 MCH 25.9 L MCHC 30.4 L RDW 19.4 H Plt Count 258 MPV 9.6 Sodium 135 L Potassium 3.3 L Chloride 98 Carbon Dioxide 28 Anion Gap 9 BUN 22 H Creatinine 0.74 Estim Creat Clear Calc 86 Estimated GFR > 60 Glucose 94 POC Capillary Glucose 98 110 H Calcium 8.8 Phosphorus 2.1 L Magnesium 1.8 Total Bilirubin 0.7 AST 48 ALT 21 Alkaline Phosphatase 100 Total Protein 6.0 L Albumin 2.5 L Wcdxu-4-Nmddlpwpm Pydcf-7-Goesybbgr Wwin-6-Exzmpdzj Osfn-3-Xjnsvhom Gamma Globulins Abnorm Protein Band 1 PEP Interpretation Urine Albumin U Ayijf-0-Ktjcbtur U Yqxni-4-Rmkzbplj U Beta Globulin U Gamma Globulin Urine PEP Interpret Pleural pH Quality VTE Prophylaxis VTE prophylaxis: pharmacologic ordered -Patient's previous records reviewed on admission -ER notes reviewed in detail on admission -discussed all findings and current treatment plan with patient/Family/POA -Consultations reviewed for recommendations -Patient's disposition for safe discharge discussed with casework manager Dictation performed by [employer] direct speech recognition software, therefore master carpenter variants and typographical errors may occur. Hospitalist MIPS Advance Care Plan I have confirmed that the patient's Advanced Care Plan is present, code status is documented, or surrogate decision maker is listed in patient medical record.: Yes Medication Reconciliation I have utilized all available resources to obtain, update and review the patients current medications (includes all prescriptions, OTC, herbals, cannabis, and nutritional supplements).: Yes The patient is not eligible for med reconciliation; the patient is in a emergent medical situation where delaying treatment would jeopardize the patients health.: No
--- NOTE | 2024-04-06 12:58 | P.PNNP_ITS ---
Progress Note: A&P Assessment and Plan (1) Hyponatremia: Code(s): E87.1 - Hypo-osmolality and hyponatremia Status: Acute Assessment and Plan: * improvement noted * acute on chronic * present as far back as December 2023 if not longer * sodium usually runs around 126 - 136mmol/L * evidence would suggest due to volume overload given clinical picture * evaluation to date noted: * CXR and CT of chest with pleural effusions * CT of head negative * urine electrolytes prerenal * TSH okay * cortisol within normal limits * UPEP negative * SPEP with possible M-spike -- check serum/urine immunofixation * diuresis and salt tabs on hold for now * resume diuretics PRN * continue fluid restriction * follow trend of repeat sodium levels (2) Osteomyelitis of lumbar spine: Code(s): M46.26 - Osteomyelitis of vertebra, lumbar region Status: Acute Assessment and Plan: * blood culutres with MRSA * repeat blood culture no growth until today * patient recently managed for MRSA endocarditis * on IV vancomycin * awaiting transfer to [facility] * repeat echo showing no valvular vegetation * pain control (3) Bacteremia: Code(s): R78.81 - Bacteremia Status: Acute Assessment and Plan: * blood culture with MRSA * repeat echocardiogram with no valvular vegetation * presumed source = #2 * remains on IV vancomycin (4) Acute hypoxic on chronic hypercapnic respiratory failure: Code(s): J96.01 - Acute respiratory failure with hypoxia; J96.12 - Chronic respiratory failure with hypercapnia Status: Acute Assessment and Plan: * secondary to volume overload/pulmonary edema * slow improvement with IV diuresis * recent CT chest showing moderate to large bilateral pleural effusions * s/p left and right thoracentesis * supplemental oxygen p.r.n. * also on fluid restriction (but not really eating/drinking much) (5) Acute exacerbation of CHF (congestive heart failure): Code(s): I50.9 - Heart failure, unspecified Status: Acute Assessment and Plan: * felt to be acute on chronic diastolic heart failure * CT chest showing bilateral moderate to large pleural effusions * Cardiology following * continue diuresis as tolerated * follow daily weights, I/Os, and respiratory status (6) Hypertension: Code(s): I10 - Essential (primary) hypertension Status: Acute Assessment and Plan: * follow trend of hemodynamics * BP medications with parameters given soft BP at this time * follow trend of hemodynamics (7) Atrial fibrillation: Onset Date: 04/20/17 Code(s): I48.91 - Unspecified atrial fibrillation Status: Chronic Assessment and Plan: * rate control strategy * on anticoagulation (8) Type 2 diabetes mellitus with hyperglycemia, with long-term current use of insulin: Code(s): E11.65 - Type 2 diabetes mellitus with hyperglycemia; Z79.4 - half-way (current) use of insulin Status: Acute Assessment and Plan: * follow accu-cheks * glycemic control per hospitalist Not much else to add -- will continue to follow from a distance... L Subjective Date/time seen: 04/06/24 12:58 Interval history: Follow-up for acute hyponatremia. Sodium level continues to improve with current interventions/therapy (salt tabs + IV lasix along with fluid restriction) although he is not really eating or drinking much of anything per my discussion with nursing; issues with hypotension overnight requiring IVF boluses with subsequent improvement in blood pressure -- IV lasix on hold due relative hypotension; breathing seems better overall following s/p left + right thoracentesis; no acute distress noted. Exam 2 Narrative: General: frail and elderly male in NAD Heart: normal S1 and S2; no rub Lungs: diminished and decreased at bases Abdomen: soft, nontender, nondistended, positive bowel sounds Extremities: no cyanosis or clubbing; trace edema Skin: no rash Objective Data Vital Signs Vital Signs: Vital Signs Temp Pulse Resp BP Pulse Ox O2 Del Method FiO2 04/06/24 12:30 97.6 F 64 18 111/34 L 97 04/06/24 12:26 57 L 04/06/24 12:00 57 L 04/06/24 07:52 98.1 F 68 24 H 108/30 L 100 04/06/24 07:51 61 20 04/06/24 07:42 67 20 04/06/24 07:42 95 Room Air 04/06/24 06:00 98.7 F 65 18 127/38 L 100 04/06/24 05:44 66 04/06/24 04:00 63 04/06/24 03:15 98.7 F 68 24 H 90/42 L 97 04/06/24 02:00 108/50 L 04/06/24 01:37 63 18 04/06/24 01:30 59 L 18 04/06/24 00:35 64 04/06/24 00:19 98.7 F 64 24 H 86/46 L 98 04/06/24 00:00 57 L 04/05/24 21:57 97.8 F 66 18 132/46 L 96 04/05/24 21:15 Room Air 04/05/24 20:00 51 L 04/05/24 19:33 94 Room Air 21 04/05/24 17:37 66 Intake/Output Intake/Output: Intake & Output 04/03/24 04/04/24 04/05/24 04/06/24 23:59 23:59 23:59 23:59 Intake Total 2110 047 058 5526 Output Total 1900 3675 3900 2250 Balance 050 -7157 -3129 -757 Meds/Results Medications: Active Medications Generic Name Dose Route Start Last Admin Trade Name Freq PRN Reason Stop Dose Admin Acetaminophen 1,000 mg 03/16/24 02:11 04/03/24 21:07 Acetaminophen 500 Mg Tablet PO 1,000 mg Q8H PRN Administration fever or pain Albuterol/Ipratropium 3 ml 04/04/24 02:00 04/06/24 13:18 Ipratropium 0.5 Mg/Albuterol Sulfate 2.5 Mg Ampul.Neb 3 Ml INHALATION 3 ml Q6HRT SUNNY Administration Aspirin 81 mg 03/16/24 08:00 04/06/24 08:54 Aspirin 81 Mg Chewable Tablet PO 81 mg DAILY@0800 SUNNY Administration Dabigatran 150 mg 03/16/24 09:00 04/03/24 10:26 Dabigatran Etexilate 150 Mg Capsule PO Not Given Q12HR SUNNY Dextrose 12.5 gm 03/13/24 21:39 Dextrose 50% 25 Gm/50 Ml Syringe IV PUSH PRN PRN Hypoglycemia Protocol Famotidine 20 mg 04/04/24 21:00 04/06/24 09:55 Famotidine 20 Mg Tablet PO 20 mg Q12HR SUNNY Administration Fenofibrate 145 mg 03/16/24 21:00 04/05/24 21:32 Fenofibrate Nanocrystallized 145 Mg Tablet PO Not Given QHS SUNNY Furosemide 40 mg 04/02/24 09:45 04/05/24 17:31 Furosemide Inj 40 Mg/4 Ml Vial IV PUSH 40 mg BID SUNNY Administration Glucagon 1 mg 03/13/24 21:39 Glucagon For Inj 1 Mg Vial IM PRN PRN Hypoglycemia Protocol Glucose 15 gm 03/13/24 21:39 Glucose Oral Gel 15 Gm Of Glucse In 37.5 Gm Tube PO PRN PRN Hypoglycemia Protocol Dextrose 1,000 mls @ 100 mls/hr 03/13/24 21:39 Dextrose 5% 1,000 Ml IVPB PRN PRN Hypoglycemia Protocol Vancomycin HCl 1,250 mg in 250 mls @ 166.667 mls/hr 04/04/24 19:00 04/06/24 06:15 Vancomycin 1,250 Mg/Ns 250 Ml IVPB 166.67 mls/hr Q36H SUNNY Administration Cefepime HCl 2 gm in 50 mls @ 100 mls/hr 04/05/24 05:00 04/06/24 14:28 Maxipime 2 Gm/Ns 50 Ml IVPB 100 mls/hr Q8HR SUNNY Administration Potassium Chloride 40 meq/ 520 mls @ 130 mls/hr 04/06/24 16:00 Sodium Chloride IVPB 04/06/24 19:59 ONCE ONE Insulin Aspart 4 - 8 units 03/21/24 08:00 04/06/24 12:00 Insulin Aspart (*Bkc) 100 Units/Ml SUB-Q Not Given WMHS SUNNY Protocol Lactobacillus Acidophilus 1 tablet 03/16/24 09:00 04/06/24 09:53 Acidophilus/Bulgaricus Chewable Tablet PO 1 tablet BID SUNNY Administration Lidocaine 1 patch 03/26/24 16:10 04/06/24 09:57 Lidocaine 5% Patch TRANSDERM 1 patch DAILY SUNNY Administration Magnesium Hydroxide 30 ml 03/14/24 09:00 04/06/24 09:48 Magnesium Hydroxide Susp 30 Ml Udc PO 30 ml QAM SUNNY Administration Metoprolol Tartrate 6.25 mg 03/16/24 06:00 04/06/24 12:26 Metoprolol Tartrate 6.25 Mg Tablet PO Not Given Q6HR SUNNY Orphenadrine Citrate 100 mg 03/14/24 22:24 04/01/24 21:17 Orphenadrine Citrate 100 Mg Tablet.Er PO 100 mg Q12HR PRN Administration Muscle Spasm Polyethylene Glycol 17 gm 03/16/24 09:00 04/06/24 09:52 Polyethylene Glycol 3350 17 Gm Powd.Pack FEED TUBE 17 gm BID SUNNY Administration Rosuvastatin Calcium 10 mg 03/14/24 21:00 04/05/24 21:32 Rosuvastatin 10 Mg Tablet PO Not Given BEDTIME SUNNY Sodium Chloride 1 gm 03/24/24 09:00 04/05/24 17:37 Sodium Chloride 1 Gm Tablet PO 1 gm BID SUNNY Administration Sodium Chloride 10 ml 04/02/24 14:00 04/06/24 14:28 Central Line Flush IV PUSH 10 ml Q8HR SUNNY Administration Sodium Chloride 10 ml 04/02/24 13:32 Central Line Flush IV PUSH PRN PRN with TPN bag changes Sodium Chloride 20 ml 04/02/24 13:32 04/06/24 05:46 Central Line Flush IV PUSH 20 ml PRN PRN Administration after blood draws Radiology Results: ITS Impressions Abdomen/Pelvis CT 03/13/24 17:07 IMPRESSION: Large hiatal hernia. Findings within the liver and spleen suggesting prior granulomatous disease. Fecal stasis within the colon and distending the rectum suggesting fecal impaction. Findings at the level of the inferior endplate of L3 which demonstrate progression from previous examination, possibly representing discitis/osteomyelitis for which clinical and serologic correlation is needed. Head CT 03/13/24 19:07 Impression: No acute intracranial hemorrhage or suspicious mass effect. Chest CT 04/02/24 09:09 Impression: Moderate to large bilateral pleural effusions with extensive bibasilar atelectatic changes and possible minimal pulmonary edema. No definite CT evidence for pneumonia, but underlying pneumonia cannot be completely excluded. Correlate clinically. Progressing erosive changes about the T8-T9 disc space. This could reflect locally advanced severe degenerative spondylitic change, versus possibly renal failure associated spondyloarthropathy or infectious osteomyelitis/discitis. Clinical correlation required. Chest X-Ray 04/05/24 11:54 IMPRESSION: No left-sided pneumothorax following left-sided thoracentesis, as detailed above. Thoracentesis Ultrasound 04/05/24 11:57 IMPRESSION: 1. Technically successful ultrasound-guided thoracentesis yielding 850 mL of thin, dark yellow fluid. The fluid was sent for the requested studies. Labs Labs: Laboratory Tests 04/06/24 05:42 04/06/24 05:42 Calcium 8.8 Phosphorus 2.1 L Magnesium 1.8 Total Bilirubin 0.7 AST 48 ALT 21 Alkaline Phosphatase 100 Total Protein 6.0 L Albumin 2.5 L Microbiology 04/04/24 15:05 Pleural Fluid Fungal Culture - Preliminary 04/04/24 15:05 Pleural Fluid Gram Stain - Final 04/04/24 15:05 Pleural Fluid Anaerobic Culture - Preliminary 04/04/24 15:05 Pleural Fluid Aerobic Culture - Preliminary
--- NOTE | 2024-04-06 13:59 | PC.NURSE ---
call from Yodit at [facility] bed placement, the MD there want BP's in pt's arm, taken and recorded, they state they will call back when bed available
--- NOTE | 2024-04-06 15:42 | PC.NURSE ---
On 04/06/24, the student, Yen Monson, provided care and completed [facility] documentation on this patient. I have reviewed the student's documentation and agree with the findings.
[2024-04-06 16:55] LABS: Glucose Point of Care 120 mg/dl (65-105)
[2024-04-06] MEDS: POTASSIUM CHLORIDE INJ 40 MEQ in SODIUM CHLORIDE 0.9% IV 500 ML 130 MEQ IVPB (17:18)
[2024-04-06 17:47] LABS: Anion Gap 7 mmol/L (4-12); Blood Urea Nitrogen 22 mg/dL (9-20); Calcium 8.8 mg/dL (8.4-10.2); Carbon Dioxide 30 mmol/L (22-30); Chloride 99 mmol/L (98-107); Estimated CRCL calculation 96 ml/min; Estimated Glomerular Filt Rate > 60; Glucose 109 mg/dL (65-110); Potassium 3.5 mmol/L (3.4-5.0); Sodium 136 mmol/L (137-145)
[2024-04-06 20:55] LABS: Glucose Point of Care 109 mg/dl (65-105)
[2024-04-06] MEDS: FENOFIBRATE NANOCRYSTALLIZED 145 MG TABLET PO (22:10)
[2024-04-06] MEDS: ROSUVASTATIN 10 MG TABLET PO (22:10)
[2024-04-07] VITALS: PULSE 70
[2024-04-07 01:36] VITALS: BP 105/59; PULSE 65; RESP 22; TEMP 37; O2SAT 99
--- NOTE | 2024-04-07 02:10 | PC.NURSE ---
Bed available at [facility]. Report given to ZI Cordova at [facility] @0149. Ambulance gave ETA of coming at 0800.
[2024-04-07 02:30] VITALS: PULSE 64; RESP 18
[2024-04-07] MEDS: IPRATROPIUM 0.5 MG/ALBUTEROL SULFATE 2.5 MG AMPUL.NEB 3 ML INHALATION (02:30)
[2024-04-07 02:39] VITALS: PULSE 65; RESP 18
[2024-04-07 04:00] VITALS: PULSE 77
[2024-04-07 05:06] LABS: Hematocrit 24.4 % (42.0-52.0); Hemoglobin 7.5 g/dL (14.0-18.0); Mean Corpuscular HGB Conc 30.7 g/dl (32-36); Mean Corpuscular Hemoglobin 26.2 pg (26-34); Mean Corpuscular Volume 85.3 fl (80-100); Platelet Count Result 213 k/mm3 (150-375); Red Blood Count 2.86 M/mm3 (4.6-6.20); Red Cell Distribution Width 19.7 % (11.5-14.5); White Blood Count 7.4 K/mm3 (4.5-10.0)
[2024-04-07] MEDS: CENTRAL LINE FLUSH 10 ML IV PUSH (05:10)
[2024-04-07] MEDS: CEFEPIME 2 GM/NS 50 ML 2 GM/50 ML BAG IVPB (05:10)
[2024-04-07] MEDS: CENTRAL LINE FLUSH 20 ML IV PUSH (05:11)
[2024-04-07 05:21] LABS: Alanine Aminotransferase 18 U/L (6-50); Albumin Level 2.6 g/dL (3.5-5.1); Alkaline Phosphatase 98 U/L (38-126); Anion Gap 4 mmol/L (4-12); Aspartate Amino Transferase 39 U/L (17-59); Bilirubin,Total 0.6 mg/dL (0.2-1.3); Blood Urea Nitrogen 18 mg/dL (9-20); Calcium 8.7 mg/dL (8.4-10.2); Carbon Dioxide 31 mmol/L (22-30); Chloride 101 mmol/L (98-107); Estimated CRCL calculation 95 ml/min; Estimated Glomerular Filt Rate > 60; Glucose 115 mg/dL (65-110); Magnesium 1.9 mg/dL (1.6-2.3); Phosphorus 1.9 mg/dL (2.5-4.5); Potassium 3.9 mmol/L (3.4-5.0); Sodium 136 mmol/L (137-145)
[2024-04-07 06:00] VITALS: BP 114/48; PULSE 74; RESP 18; TEMP 36.6; O2SAT 99
--- NOTE | 2024-04-07 06:46 | PC.NURSE ---
[facility] arrived and taking pt to [facility]. Called [facility] to update on ETA of pt arrival.
--- NOTE | 2024-04-07 08:51 | PC.NURSE ---
pt sent by EMS for transfer to [facility] for specialist services not provided at [place], I am doing the discharge disposition for this pt based on report given by previous shift
--- NOTE | 2024-04-07 14:15 | P.TS_ITS ---
Transfer Discharge Sum: Prov Provider Date of admission: 03/15/24 13:21 Primary care physician: Dominic Recinos MD Admitting clinician: Kye Quintanilla MD Consults: 03/19/24 Consult to Physician Routine Comment: Per chart Dr has seen pt 03/19 [phone]) Consulting Provider: Celso Haro Reason for consultation: New pacemaker placed by Dr. Haro. Patient feels constant electrical shocks Has provider been notified: Yes 04/02/24 Consult to Physician Routine Comment: Left voicemail for provider 04/02 Consulting Provider: Danny Drake call center rn/MD group to consult: Nephrology Reason for consultation: Hyponatremia Has provider been notified: Yes Attending physician on discharge: Thomas Stokes Discharging clinician: Denisse Kaur Anticipated date of transfer: 04/07/24 Receiving physician/facility: [facility] DS: Admitting Diagnosis Discharge Date 04/07/24 Admitting Diagnosis Osteomyelitis of the lumbar/ bacteremia MRSA/ discitis/ acute on chronic respiratory with hypoxia hypercapnia DS: Discharge Diagnosis Discharge Diagnosis (1) Osteomyelitis of lumbar spine: Code(s): M46.26 - Osteomyelitis of vertebra, lumbar region Status: Acute Assessment and Plan: * Blood culture positive MRSA and repeat blood culture no growth until today * patient recently managed for MRSA endocarditis * Cont Vanc and cefepime * Patient is waiting for a bed assignment for transfer to [facility] * Repeat echo showing no valvular vegetation * pain control (2) Discitis of lumbar region: Code(s): M46.46 - Discitis, unspecified, lumbar region Status: Acute Assessment and Plan: See Above (3) Bacteremia: Code(s): R78.81 - Bacteremia Status: Acute Assessment and Plan: * MRSA * echocardiogram with no valvular vegetation * will continue with IV vancomycin pending transfer to tertiary facility (4) Acute hypoxic on chronic hypercapnic respiratory failure: Code(s): J96.01 - Acute respiratory failure with hypoxia; J96.12 - Chronic respiratory failure with hypercapnia Status: Acute Assessment and Plan: * pulmonary edema * improved with IV Lasix * CT chest showing moderate to large bilateral pleural effusions * IR for thoracentesis hold AC for 24 hours scheduled for 04/04 * oxygen p.r.n. * fluid restriction 04/05 * LT sided thoracentesis scheduled for today * continue with IV Lasix and spironolactone * encouraged the use of incentive spirometer (5) Acute exacerbation of CHF (congestive heart failure): Code(s): I50.9 - Heart failure, unspecified Status: Acute Assessment and Plan: Acute on chronic diastolic heart failure * CT chest showing bilateral moderate to large pleural effusions * cardiology consulted * IV Lasix b.i.d. * monitor renal function during diuresis LVEF 60-65%results or if applicable * echocardiogram LVEF 50-50% Diastolic * Optimize Tony inhibitors, beta-blockers, ARNI * Daily weight. * fluid restriction * Low sodium diet 04/06 * Transition back to PO Lasix (6) Hypertension: Code(s): I10 - Essential (primary) hypertension Status: Acute Assessment and Plan: * Home medications on hold * Patient with soft BP likely secondary to IV lasix * Monitor BP per unit protocol * resume home medications as tolerated (7) CAD (coronary artery disease), autologous vein bypass graft: Code(s): I25.810 - Atherosclerosis of coronary artery bypass graft(s) without angina pectoris Status: Acute Assessment and Plan: * resumed ASA * resume fenofibrate (8) Atrial fibrillation: Onset Date: 04/20/17 Code(s): I48.91 - Unspecified atrial fibrillation Status: Chronic Assessment and Plan: * Rate controlled * AC resumed * cardiac monitoring (9) Type 2 diabetes mellitus with hyperglycemia, with long-term current use of insulin: Code(s): E11.65 - Type 2 diabetes mellitus with hyperglycemia; 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 * Watch for hypoglycemia/hypoglycemic protocol ordered (10) Physical deconditioning: Code(s): R53.81 - Other malaise Status: Acute Assessment and Plan: * PT OT when clinically able to participate (11) Acute hyponatremia: Code(s): E87.1 - Hypo-osmolality and hyponatremia Status: Acute Assessment and Plan: * Na 123 secondary to congestive heart fail * Patient currently on Lasix * adjust based on hyponatremia workup * Nephrology consulted 04/04 * 124 NA * continue with Lasix * Fluid restriction * neuro checks 04/05 * NA 130 * continue with fluid restriction, Lasix and sodium tablets 04/06 * NA 135 Plan Code status: Full code per patient DVT prophylaxis: Dabigatran Stress ulcer prophylaxis: Protonix 40 daily PT/OT notes: PT/OT when medically stable Disposition: patient continues admission to the medical unit for lumbar osteomyelitis with MRSA diskitis currently is on wait list for transfer to tertiary facility [facility] will require Infectious Disease long-term IV antibiotic therapy. Transfer Discharge Sum: Med Medications Active and Home Medications: Home Medications multivitamin with minerals 1 tablet PO DAILY 12/20/23 [History Confirmed 03/15/24] nystatin 100,000 unit/mL oral suspension 100,000 unit PO QID 12/20/23 [History Confirmed 03/15/24] insulin aspart U-100 100 unit/mL subcutaneous solution (Novolog U-100 Insulin aspart) 4 - 8 unit subcut ACHS 12/28/23 [Rx Confirmed 03/15/24] Lactobacillus acidophilus 1 cap PO BID 02/15/24 [History Confirmed 03/15/24] aspirin 81 mg chewable tablet (Lynnette Chewable Low Dose Aspirin) 81 mg PO DAILY 02/15/24 [History Confirmed 03/15/24] dabigatran etexilate 150 mg capsule 150 mg PO BID 02/15/24 [History Confirmed 03/15/24] fenofibrate nanocrystallized 145 mg PO HS 02/15/24 [History Confirmed 03/15/24] furosemide 40 mg tablet 40 mg PO DAILY 02/15/24 [History Confirmed 03/15/24] metoprolol tartrate 25 mg tablet 6.25 mg PO Q6H 02/15/24 [History Confirmed 03/15/24] pantoprazole 40 mg granules delayed-release for susp in packet 40 mg feeding tube DAILY 02/15/24 [History Confirmed 03/15/24] polyethylene glycol 3350 17 gram/dose oral powder 17 g feeding tube BID 02/15/24 [History Confirmed 03/15/24] potassium chloride 20 mEq oral packet (Klor-Con) 20 meq PO DAILY 02/15/24 [History Confirmed 03/15/24] rosuvastatin 10 mg tablet 10 mg feeding tube HS 02/15/24 [History Confirmed 03/15/24] saxagliptin 5 mg tablet 5 mg PO DAILY 02/15/24 [History Confirmed 03/15/24] spironolactone 25 mg tablet 25 mg PO DAILY 02/15/24 [History Confirmed 03/15/24] vancomycin 1.25 gram intravenous solution 1.25 g IV Q24H 02/15/24 [History Confirmed 03/19/24] acetaminophen 500 mg capsule 1,000 mg PO Q8H PRN fever or pain 03/15/24 [History Confirmed 03/15/24] insulin aspart U-100 100 unit/mL subcutaneous solution (Novolog U-100 Insulin aspart) 12 unit subcut ACHS 03/21/24 [History Confirmed 03/21/24] Transfer Discharge Sum: Hosp Hospital Course Hospital course: Diego Marquez Sr. was a 74 year old male with past medical history significant for coronary artery disease status post coronary artery bypass graft, morbid obesity, peripheral vascular disease, hypertension, insulin-dependent diabetes mellitus, sick sinus syndrome, obstructive sleep apnea on CPAP. Patient recently concluded treatment for endocarditis has been participating in physical therapy at rehabilitation center when he felt bilateral lower extremity weakness preliminary workup was significant for lumbar spine diskitis likely osteomyelitis. Patient was placed on a transfer list to [facility] for tertiary care. after several days in the emergency department patient was admitted to the medical unit due to wait list at [facility]. patient was initiated IV antibiotic therapy and was found to have MRSA bacteremia likely associated with his lumbar osteomyelitis ICU transfer due to acute respiratory failure with hypoxia secondary to pulmonary edema: MRSA bacteremia With associated Diskitis/osteomyelitis Blood culture positive MRSA and repeat blood culture no growth until today patient recently managed for MRSA endocarditis Cont Vanc Patient is waiting for a bed assignment for transfer to [facility] Hospital Repeat echo: no valvular vegetation Acute hypoxemic respiratory failure From pulm edema and pleural few ECHO from October EF 60-65% Titrate oxygen as tolerated currently on 4 L continue Lasix Pulm edema likely from Diastolic CHF ECHO from 10/21 ECHO 60-65% Continue Lasix 40 mg IV bid and adjust with clinical course Pleural effusion: * pulmonary edema * improved with IV Lasix * CT chest showing moderate to large bilateral pleural effusions * IR for thoracentesis hold AC for 24 hours scheduled for 04/04 * oxygen p.r.n. * fluid restriction04/05 * LT/RT sided thoracentesis performed * continue with IV Lasix and spironolactone * encouraged the use of incentive spirometer * Had to hold Lasix due to soft BP patient over diuresed * Na 123 secondary to congestive heart fail * Patient currently on Lasix * adjust based on hyponatremia workup * Nephrology consulted04/04 * 124 NA * continue with Lasix * Fluid restriction * neuro checks04/05 * NA 130 * continue with fluid restriction, Lasix and sodium tablets04/06 * NA 135 Acute on chronic diastolic heart failure * CT chest showing bilateral moderate to large pleural effusions * cardiology consulted * IV Lasix b.i.d. * monitor renal function during diuresis LVEF 60-65%results or if applicable * echocardiogram LVEF 50-50% Diastolic * Optimize Tony inhibitors, beta-blockers, ARNI * Daily weight. * fluid restriction * Low sodium diet04/06 * Transition back to PO Lasix Continue aspirin fenofibrate, low-dose metoprolol, stat DVT prophylaxis on Dabigatran Patient spent 1 day in ICU for acute respiratory failure but responded well to IV lasix and was weaned to 2 L NC oxygen and transferred back the medical unit while awaiting transfer. Patient had a few episodes of hypotension but responded IV fluid bolus likely over diuresis. Patient was transferred to [facility] for further treatment and consult to infectious disease. Time Spent with Patient Time attestation: Total time spent providing and/or coordinating transfer services: Total time spent: Greater than 30 minutes Exam Narrative: This exam was from 04/06 progress note patient was transferred on 04/07/2024 prior to follow-up exam General: Old fragile male who appears older than his age who is lethargic in no acute distress Lungs/Chest: Breath sounds diminished throughout on auscultation Cardiac: RRR. Normal S1 S2. No murmurs Circulation: Pulses 2+ and skin warm to tough Abdomen: Normal bowel sounds.. Morbidly obese, soft NT. ND. Extremities: No clubbing, cyanosis or edema. Warm bilateral pitting edema from : Nayak in place Neurologic: Follows commands. Moves all 4 extremities PERRL AO times 3 Skin: No Rash DS: Data Data Completed and Pending Pending studies at discharge: Pending at discharge 04/03/24 08:31 Cytology [PTH] Routine Labs on day of discharge: Labs from last 24 hours 04/07/24 04/06/24 04/06/24 04:57 20:31 17:22 WBC 7.4 RBC 2.86 L Hgb 7.5 L Hct 24.4 L MCV 85.3 MCH 26.2 MCHC 30.7 L RDW 19.7 H Plt Count 213 MPV 9.0 Sodium 136 L 136 L Potassium 3.9 3.5 Chloride 101 99 Carbon Dioxide 31 H 30 Anion Gap 4 7 BUN 18 22 H Creatinine 0.65 L 0.64 L Estim Creat Clear Calc 95 96 Estimated GFR > 60 > 60 Glucose 115 H 109 POC Capillary Glucose 109 H Calcium 8.7 8.8 Phosphorus 1.9 L Magnesium 1.9 Total Bilirubin 0.6 AST 39 ALT 18 Alkaline Phosphatase 98 Total Protein 6.0 L Albumin 2.6 L 04/06/24 16:52 WBC RBC Hgb Hct MCV MCH MCHC RDW Plt Count MPV Sodium Potassium Chloride Carbon Dioxide Anion Gap BUN Creatinine Estim Creat Clear Calc Estimated GFR Glucose POC Capillary Glucose 120 H Calcium Phosphorus Magnesium Total Bilirubin AST ALT Alkaline Phosphatase Total Protein Albumin Preliminary micro results at discharge 04/04/24 15:05 Fungal Culture - Preliminary Pleural Fluid 04/04/24 15:05 Anaerobic Culture - Preliminary Pleural Fluid Aerobic Culture - Preliminary 04/02/24 08:15 Blood Culture - Preliminary Blood 04/02/24 08:25 Blood Culture - Preliminary Blood Imaging Radiologist's impression: Radiology Results: ITS Impressions Abdomen/Pelvis CT 03/13/24 17:07 IMPRESSION: Large hiatal hernia. Findings within the liver and spleen suggesting prior granulomatous disease. Fecal stasis within the colon and distending the rectum suggesting fecal impaction. Findings at the level of the inferior endplate of L3 which demonstrate progression from previous examination, possibly representing discitis/osteomyelitis for which clinical and serologic correlation is needed. Head CT 03/13/24 19:07 Impression: No acute intracranial hemorrhage or suspicious mass effect. Chest CT 04/02/24 09:09 Impression: Moderate to large bilateral pleural effusions with extensive bibasilar atelectatic changes and possible minimal pulmonary edema. No definite CT evidence for pneumonia, but underlying pneumonia cannot be completely excluded. Correlate clinically. Progressing erosive changes about the T8-T9 disc space. This could reflect locally advanced severe degenerative spondylitic change, versus possibly renal failure associated spondyloarthropathy or infectious osteomyelitis/discitis. Clinical correlation required. Chest X-Ray 04/05/24 11:54 IMPRESSION: No left-sided pneumothorax following left-sided thoracentesis, as detailed above. Thoracentesis Ultrasound 04/05/24 11:57 IMPRESSION: 1. Technically successful ultrasound-guided thoracentesis yielding 850 mL of thin, dark yellow fluid. The fluid was sent for the requested studies.
[2024-04-07 17:53] LABS: Glucose Pleural Fluid 115 mg/dL; LDH Pleural Fluid 152 U/L; Total Protein Pleural Fluid <3.0 g/dL
--- NOTE | 2024-04-10 08:41 | P.PNIM_ITS ---
Progress Note: A&P Assessment and Plan (1) Osteomyelitis of lumbar spine: Code(s): M46.26 - Osteomyelitis of vertebra, lumbar region Status: Acute Assessment and Plan: * Blood culture positive MRSA and repeat blood culture negative * patient recently managed for MRSA endocarditis * Cont Vanc and cefepime * Patient is waiting for a bed assignment for transfer to [facility] * Repeat echo showing no valvular vegetation * pain control (2) Discitis of lumbar region: Code(s): M46.46 - Discitis, unspecified, lumbar region Status: Acute Assessment and Plan: See Above (3) Bacteremia: Code(s): R78.81 - Bacteremia Status: Acute Assessment and Plan: * MRSA * echocardiogram with no valvular vegetation * will continue with IV vancomycin pending transfer to tertiary facility (4) Hypertension: Code(s): I10 - Essential (primary) hypertension Status: Acute Assessment and Plan: * Home medications on hold * Patient with soft BP likely secondary to IV lasix * Monitor BP per unit protocol * resume home medications as tolerated (5) CAD (coronary artery disease), autologous vein bypass graft: Code(s): I25.810 - Atherosclerosis of coronary artery bypass graft(s) without angina pectoris Status: Acute Assessment and Plan: * resumed ASA * resume fenofibrate (6) Atrial fibrillation: Onset Date: 04/20/17 Code(s): I48.91 - Unspecified atrial fibrillation Status: Chronic Assessment and Plan: Continue rate control and on anticoagulation (7) Type 2 diabetes mellitus with hyperglycemia, with long-term current use of insulin: Code(s): E11.65 - Type 2 diabetes mellitus with hyperglycemia; Z79.4 - care home (current) use of insulin Status: Acute Assessment and Plan: On SSi with accucheks and adjust with clinical course (8) Physical deconditioning: Code(s): R53.81 - Other malaise Status: Acute Assessment and Plan: * PT OT when clinically able to participate Plan MRSA bacteremia likely likely from Diskitis/osteomyelitis Blood culture positive MRSA and repeat blood culture no growth until today patient recently managed for MRSA endocarditis Cont Vanc Continue with transfer to [facility] DVT prophylaxis: Dabigatran Disposition: Awaiting transfer to [facility] Subjective Date/time seen: 03/29/24 08:41 DOS 03/29/24 Interval history: Patient comfortable at bedside still awaiting transfer Review of Systems Review of Systems: Back pain, abdominal pain All systems reviewed & are unremarkable except as noted in HPI and below (HPI) Exam Const: General: comfortable, no acute distress, well developed, alert, awake, ill appearing chronically and obese Nutritional Appearance: obese Orientation/consciousness: patient oriented x3 Other: Generalized pallor HENMT: Head: normal to inspection, normocephalic and atraumatic Ears: hearing grossly normal bilaterally Face/Nose/Sinus: normal facial exam Face and sinus: normal facial exam Eyes: General: appearance normal, both eyes and all related structures Pupils: Equal, round and reactive pupils present EOM: EOMs intact bilaterally Neck: Neck: full ROM, no lymphadenopathy and no JVD Thyroid: thyroid normal Lymphatic: no lymphadenopathy noted Resp: Effort & Inspection: normal respiratory effort and able to speak in complete sentences Auscultation: clear to auscultation bilaterally Cardio: Jugular venous distension: no JVD Rate: regular rate Rhythm: regular rhythm Heart sounds: S1 normal heart sound present and S2 normal heart sound present GI: Inspection: Pannus present and obesity : General: Yes deferred Skin: Rashes: no rashes Wounds: no wounds Neuro: General: patient oriented x3, CN's II-XI intact bilaterally and Unable to assess gait Cranial nerves: Yes CN's II-XII intact bilaterally and Yes Equal, round and reactive pupils present Cognition (Neuro): normal cognition Speech: normal speech Gait exam (Neuro): Unable to assess gait Motor exam (neuro): 5/5 motor strength present throughout Extrem: General: normal to inspection, full ROM, no joint enlargement and no pedal edema Objective Data Intake/Output Intake/Output: Intake & Output 04/07/24 04/08/24 04/09/24 04/10/24 23:59 23:59 23:59 23:59 Intake Total 890 Output Total 900 Balance -10 Meds/Results Radiology Results: ITS Impressions Abdomen/Pelvis CT 03/13/24 17:07 IMPRESSION: Large hiatal hernia. Findings within the liver and spleen suggesting prior granulomatous disease. Fecal stasis within the colon and distending the rectum suggesting fecal impaction. Findings at the level of the inferior endplate of L3 which demonstrate progression from previous examination, possibly representing discitis/osteomyelitis for which clinical and serologic correlation is needed. Head CT 03/13/24 19:07 Impression: No acute intracranial hemorrhage or suspicious mass effect. Chest CT 04/02/24 09:09 Impression: Moderate to large bilateral pleural effusions with extensive bibasilar atelectatic changes and possible minimal pulmonary edema. No definite CT evidence for pneumonia, but underlying pneumonia cannot be completely excluded. Correlate clinically. Progressing erosive changes about the T8-T9 disc space. This could reflect locally advanced severe degenerative spondylitic change, versus possibly renal failure associated spondyloarthropathy or infectious osteomyelitis/discitis. Clinical correlation required. Thoracentesis Ultrasound 04/05/24 11:57 IMPRESSION: 1. Technically successful ultrasound-guided thoracentesis yielding 850 mL of thin, dark yellow fluid. The fluid was sent for the requested studies. Chest X-Ray 04/06/24 16:49 IMPRESSION: 1. Mild pulmonary edema. 2. Small left pleural effusion. 3. Cardiomegaly. Quality VTE Prophylaxis VTE prophylaxis: pharmacologic ordered
== END 2024-04-07 06:50 | disposition short-term general hospital (02) | DRG 539 ==
LOC: ANHED 21:54 → ANHIMU 03-15 15:10 → ANH2MED 03-18 17:16 → ANHICU 04-02 09:20 → ANHCPC 04-03 18:48 → ANH2MED 04-09 11:47
PROVIDERS: General Practice; Internal Medicine; Internal Medicine Nephrology; Physician Assistant; Radiology Diagnostic Radiology; Admitting Provider Internal Medicine; Emergency Provider Student in an Organized Health Care Education/Training Program; PCP Internal Medicine; Visit Provider Nurse Practitioner Family
DX: M46.26 Osteomyelitis of vertebra, lumbar region (principal); I50.33 Acute on chronic diastolic (congestive) heart failure; J96.01 Acute respiratory failure with hypoxia; R78.81 Bacteremia; E87.1 Hypo-osmolality and hyponatremia; J91.8 Pleural effusion in other conditions classified elsewhere; I25.10 Atherosclerotic heart disease of native coronary artery without angina pectoris; I73.9 Peripheral vascular disease, unspecified; I48.91 Unspecified atrial fibrillation; E11.42 Type 2 diabetes mellitus with diabetic polyneuropathy; K59.00 Constipation, unspecified; E66.01 Morbid (severe) obesity due to excess calories; G47.33 Obstructive sleep apnea (adult) (pediatric); I11.0 Hypertensive heart disease with heart failure; K44.9 Diaphragmatic hernia without obstruction or gangrene; B95.62 Methicillin resistant Staphylococcus aureus infection as the cause of diseases classified elsewhere; E11.65 Type 2 diabetes mellitus with hyperglycemia; E78.5 Hyperlipidemia, unspecified; R53.81 Other malaise; Z95.0 Presence of cardiac pacemaker; Z79.4 Long term (current) use of insulin; Z79.82 Long term (current) use of aspirin; Z79.84 Long term (current) use of oral hypoglycemic drugs; Z79.01 Long term (current) use of anticoagulants; Z87.891 Personal history of nicotine dependence; Z95.1 Presence of aortocoronary bypass graft
CPT/HCPCS: 32555; 36415; 36569; 36600; 70450; 71045; 71250; 74177; 77001; 80048; 80053; 80202; 81001; 81050; 82042; 82150; 82533; 82565; 82570; 82728; 82805; 82945; 82947; 82948; 83036; 83540; 83550; 83605; 83615; 83735; 83930; 83935; 83986; 84100; 84132; 84155; 84156; 84157; 84165; 84166; 84300; 84311; 84443; 84484; 84540; 85018; 85025; 85027; 85610; 85652; 85730; 86140; 87040; 87070; 87075; 87086; 87102; 87181; 87205; 87206; 87641; 88108; 88305; 88342; 89051; 93005; 93306; 94640; 96365; 96366; 96367; 96375; 96376; 99285; A9270; J0692; J1171; J1815; J1940; J2003; J2543; J2997; J3370; J3480; J7030; J7040; J7050; J7120; Q9967